=== PATIENT | female | born 1950 | race Caucasian/White ===

== ENCOUNTER → 2019-02-03 15:04 | Outpatient (CLI) | payer MEDICARE, OTHER, SELFPAY ==
--- NOTE | 2019-02-03 15:09 | US_ITS ---
PROCEDURE: US THYROID CLINICAL INDICATION: OROPJARYNGEAL DYSPHAGIA The dysphagia COMPARISON: No exams were available for comparison FINDINGS: Right lobe: 3.8 x 1.5 x 1.9 cm. 6 x 3 mm isodense slightly hypoechoic nodule upper pole 11 x 11 mm mixed nodule mid polar region, 8 mm slightly hypoechoic nodule midpole Left lobe: 4.4 x 1.5 x 1.6 cm. Well-circumscribed 5 mm hypoechoic nodule upper pole, 4 mm hypoechoic nodule mid pole, 3 mm hypoechoic nodule mid pole, 7 mm hypoechoic nodule lower pole Isthmus: Unremarkable Additional findings: IMPRESSION: Small bilateral thyroid nodules as detailed above. Recommend six-month follow-up to confirm short term stability Dictated by: Fadi Trujillo MD 02/03/2019 18:48 Electronically signed by Fadi Trujillo MD in [place] 02/03/2019 18:48
== END ==
PROVIDERS: PCP Family Medicine; Visit Provider Family Medicine
DX: R13.12 Dysphagia, oropharyngeal phase (principal)
CPT/HCPCS: 76536

== ENCOUNTER → 2019-07-08 10:58 | Outpatient (CLI) | payer MEDICARE, OTHER, SELFPAY ==
[2019-07-08 11:39] LABS: Basophils # 0.1 K/mm3 (0-0.2); Basophils % 0.6 % (0.1-2.0); Eosinophils # 0.2 K/mm3 (0.0-0.4); Eosinophils % 1.9 % (0.1-12.0); Hematocrit 39.2 % (37.0-47.0); Hemoglobin 12.8 g/dL (12.2-16.2); Lymphocytes # 2.2 K/mm3 (0.7-4.5); Lymphocytes % 25.9 % (10-50); Mean Corpuscular HGB Conc 32.7 g/dL (31.8-35.4); Mean Corpuscular Hemoglobin 29.4 pg (27.0-31.2); Mean Corpuscular Volume 89.9 fl (81-99); Mean Platelet Volume 8.3 fl (7.4-10.4); Monocytes # 0.5 K/mm3 (0.1-1.0); Monocytes % 5.9 % (1.7-9.3); Neutrophils # 5.6 K/mm3 (1.8-7.8); Neutrophils % 65.7 % (37.0-80.0); Platelet Count 201 K/mm3 (142-424); Red Blood Count 4.36 M/mm3 (4.20-5.40); Red Cell Distribution Width 14.4 % (11.5-17.5); White Blood Count 8.5 K/mm3 (4.8-10.8)
[2019-07-08 12:13] LABS: Alanine Aminotransferase 24 U/L (9-52); Albumin/Globulin Ratio 1.4 (1.1-1.8); Alkaline Phosphatase 79 U/L (46-116); Anion Gap 13.3 mEq/L (5-15); Aspartate Amino Transferase 17 U/L (15-37); Bilirubin,Total 0.6 mg/dL (0.2-1.0); Blood Urea Nitrogen 14 mg/dL (7-18); Calcium 9.5 mg/dL (8.5-10.1); Carbon Dioxide 28 mmol/L (21.0-32.0); Chloride 108 mmol/L (98-107); Chol/HDL Ratio 2.1 (1-3.5); Cholesterol 128 mg/dL (140-200); Creatinine,Serum 0.99 mg/dL (0.55-1.02); Estimated Glomerular Filt Rate 56 ml/min (>60); GFR (African American) 67 ML/MIN (>60); Globulin 2.8 gm/dl (1.3-3.2); Glucose 111 mg/dL (74-106); HDL Cholesterol 60 mg/dL (29-89); LDL Cholesterol 48 mg/dL (0-130); Potassium 4.3 mmoL/L (3.5-5.1); Sodium 145 mmol/L (137-145); Thyroid Stimulating Hormone 0.97 uIU/ml (0.358-3.740); Total Protein,Serum 6.8 g/dL (6.4-8.2); Triglycerides 100 mg/dL (30-200); VLDL Cholesterol 20 mg/dL (0-40)
== END ==
PROVIDERS: PCP Family Medicine; Visit Provider Internal Medicine Cardiovascular Disease
DX: R09.89 Other specified symptoms and signs involving the circulatory and respiratory systems (principal); I11.9 Hypertensive heart disease without heart failure; E78.5 Hyperlipidemia, unspecified
CPT/HCPCS: 36415; 80053; 80061; 84443; 85025

== ENCOUNTER → 2020-02-21 14:48 | Outpatient (POV) | payer MEDICARE, OTHER, SELFPAY | PROVIDERS: Visit Provider Nurse Practitioner Family | DX: Z00.00 Encounter for general adult medical examination without abnormal findings (principal) ==

== ENCOUNTER → 2020-07-27 08:09 | Outpatient (POV) | payer MEDICARE, OTHER, SELFPAY ==
[2020-07-27 08:40] VITALS: BP 145/74; PULSE 57; RESP 18; O2SAT 98; BMI 32.5
--- NOTE | 2020-10-19 12:36 | HMH.PMCON ---
Assessment and Plan (1) Degenerative joint disease (DJD) of lumbar spine Status: Acute Category: Medical Code(s): M47.816 - Spondylosis without myelopathy or radiculopathy, lumbar region (2) Lumbar radiculopathy Status: Acute Category: Medical Code(s): M54.16 - Radiculopathy, lumbar region - Assessment and plan all Dx Assessment and Plan for all problems:: We will schedule the patient for a lumbar epidural steroid injection at L2-L3. We will also order her compounding cream. She has tried and failed conservative therapies of physical therapy, home stretching, and anti-inflammatories. We will see her back in the clinic afterwards to reassess her symptoms after her injection. She is not on anticoagulation therapy. Risks and benefits of the procedure have been explained to the patient. Patient would like to proceed with the procedure. Dr. Partida has reviewed this note and agrees with this plan of care. This note was dictated using voice recognition software and make contain errors or omissions. HPI - Data of Consult Patient: new to practice Consult date: 10/19/20 Requesting Physician: Mirna Shipman APRN Primary Care Provider: Talon Barragan MD - Consult Narrative Reason for consult: Low back pain History of present illness: Ms. Alarcon is a 70 year old female who presents today for consultation for chronic low back pain. The patient was referred to us by Dr. Barragan. Patient says that she has low back pain with radiation into her lower extremities. She has tried and failed conservative therapies of physical therapy for greater than 6 weeks and continued home stretching program. She has also tried ice and heat therapies with no relief. She does have an MRI from 2018 that does show nerve root impingement at L2-L3 area. She says home stretching and physical therapy of not given her relief nor has anti-inflammatories. She does rate her pain a 6 out of 10 today. CC: Mirna Shipman APRN [facility] History I have reviewed the patient's past medical history: Yes Medical History: Reports:: Cancer (left breast cancer), Hyperlipidemia, Hypertension Denies:: Diabetes Mellitus Type 1, Diabetes Mellitus Type 2, Internal Pacemaker, MRSA, Seizures *Have you ever received a pneumonia vaccine?: Yes *Have you received a flu vaccine this season?: Yes Other Medical History: Reports: Anemia, Arthritis. Denies: Blood Transfusion Reaction Laterality Cases: Left: Mastectomy, Right: Total Hip Replacement, Bilateral: Carpal Tunnel Release, Tonsillectomy Other Surgeries: Yes: Cancer Surgery (right breast ), Colonoscopy. No: Pacemaker Amputation: No Fractures: No - *Social History Smoking Status: Never smoker Alcohol Intake: never Alcohol Intake Frequency:: holidays/special occasions only Substance Use Type: denies use *Occupational Status:: retired Housing: house Household Members: spouse *Travel in the last 8 weeks: None Family Hx:: Cancer Review of Systems - Review of Systems Review of Systems General: No recent weight changes, no fever, no sleep disturbances Respiratory: No cough, no shortness of air, no recurring pulmonary infections Cardiovascular/peripheral vascular: No chest pain, no palpitations, no edema, no shortness of breath Gastrointestinal: No new onset incontinence, normal bowel movements reported Genitourinary: No new onset incontinence Musculoskeletal: Low back pain with radiation into lower extremities Psychiatric: Normal mood/affect Neurological: [Denies weakness in extremities], [denies balance issues] Meds Home Medications Medication Instructions Recorded Confirmed Type Anastrozole [Arimidex] 1 mg PO DAILY 03/30/19 08/04/20 History Aspirin [Aspir 81] 81 mg PO DAILY 03/30/19 08/04/20 History Bisoprolol/Hydrochlorothiazide 1 each PO DAILY 03/30/19 08/04/20 History [Bisoprolol-Hctz 5-6.25 mg Tab] Potassium Chloride 20 meq PO DAILY 03/30/19 08/04/20 History Vitamin E
== END ==
PROVIDERS: PCP Family Medicine; Visit Provider Clinical Nurse Specialist Family Health
DX: M47.896 Other spondylosis, lumbar region (principal); M54.16 Radiculopathy, lumbar region
CPT/HCPCS: 99202; G0463

== ENCOUNTER 2020-08-04 09:49 | Day surgery (SDC) | payer MEDICARE, SELFPAY ==
[2020-08-04 10:05] VITALS: BP 172/81; PULSE 62; RESP 18; TEMP 36.3; O2SAT 95; BMI 32.9
[2020-08-04 10:38] VITALS: BP 138/85; PULSE 74; RESP 18; O2SAT 98
[2020-08-04 10:45] VITALS: BP 140/79; PULSE 89; RESP 18; O2SAT 98
[2020-08-04 11:00] VITALS: BP 163/88; PULSE 58; RESP 18; O2SAT 95
--- NOTE | 2020-08-04 11:42 | HMH.PMPROC ---
- Procedure Date: 08/04/20 Time: 11:42 Anesthesiologist:: Tobias Partida MD Complications:: None Pre-procedure Diagnosis:: Degenerative disc disease of lumbar spine with lumbar radiculopathy symptoms with increasing degenerative changes and bulging disc at L2-L3 Post-procedure Diagnosis:: Same Indications for Procedure:: This patient is a pleasant 70-year-old white female who we are treating for low back pain. This is in the upper low back. MRI does show degenerative changes with bulging disc at L2-L3. Will do lumbar epidural steroid injection L2-L3 today to see if this helps with her pain symptoms. Procedure Details:: Lumbar epidural steroid injection under fluoroscopy Informed consent was obtained and the risk and benefits of the procedure was explained to the patient. The patient was taken to the procedure room. The patient was placed prone on the procedure table. The patient was prepped and draped in sterile fashion. C-arm fluoroscopy was used to view the lumbar spine. Skin and subcutaneous tissues were anesthetized using lidocaine. I placed an 18-gauge epidural needle and advanced into the L2-L3 interspace using fluoroscopic guidance and [id number] to air. After confirmation of needle placement in the epidural space with dye I injected 2 mL of lidocaine 1.5% with Depo-Medrol 80 mg. Patient tolerated the procedure well with no complications. Plan and Disposition:: We will follow-up with her in 2 weeks. Will reevaluate symptoms at that time.
== END 2020-08-04 11:15 | disposition home or self-care (01) ==
PROVIDERS: PCP Family Medicine; Visit Provider Anesthesiology
DX: M51.16 Intervertebral disc disorders with radiculopathy, lumbar region (principal); M51.26 Other intervertebral disc displacement, lumbar region
CPT/HCPCS: 62323; J1040; Q9966

== ENCOUNTER → 2020-08-31 10:07 | Outpatient (POV) | payer MEDICARE, SELFPAY ==
[2020-08-31 10:14] VITALS: BP 133/85; PULSE 68; RESP 18; O2SAT 99; BMI 32.9
--- NOTE | 2020-08-31 10:32 | P.CONS_ITS ---
[facility] Pain Management SOAP Note Subjective:: Pleasant 70-year-old white female who presents today for follow-up after her L2- L3 lumbar epidural steroid injection. Patient states that this is the first injection that has been beneficial for her. She got over 80% relief of her symptomology. She rates her pain a 2 out of 10. She is having some left knee pain she states that her orthopedic surgeon stated that this is coming from her L5 level. Patient is uninterested in any injection therapy. She is utilizing the compounding cream patient states that this does very well for her. ROS General: no recent weight change, no fever, no sleep disturbances Respiratory: no cough, no shortness of air, no recurring pulmonary infections Cardiovascular/Peripheral Vascular: No chest pain, No palpitations, no edema, no shortness of breath. Gastrointestinal: no new onset incontinence, normal bowel movements reported Genitourinary: no new onset incontinence Musculoskeletal: Back pain, leg pain at times, knee pain Psychiatric: normal mood/ affect Neurological: [denies new onset weakness in extremities], [denies new onset balance issues] Objective:: Physical Exam General: Alert and oriented x3, no acute distress, pleasant and cooperative, [on room air] Lungs: Resps E/U, Symmetrical chest expansion, Eyes: PERRL Musculoskeletal: Flexion and extension of lumbar spine somewhat guarded secondary to pain, deep tendon reflexes normal, strength in upper and lower extremities [5/5], slightly antalgic gait noted Neurological: speech clear, 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 Dr. Partida has reviewed this note and agrees with this plan of care. This note was dictated using voice recognition software and may contain errors or omissions [facility] History I have reviewed the patient's past medical history: Yes Medical History: Reports:: Cancer (left breast cancer), Hyperlipidemia, Hypertension Denies:: Diabetes Mellitus Type 1, Diabetes Mellitus Type 2, Internal Pacemaker, MRSA, Seizures *Have you ever received a pneumonia vaccine?: Yes *Have you received a flu vaccine this season?: Yes Other Medical History: Reports: Anemia, Arthritis. Denies: Blood Transfusion Reaction Laterality Cases: Left: Mastectomy, Right: Total Hip Replacement, Bilateral: Carpal Tunnel Release, Tonsillectomy Other Surgeries: Yes: Cancer Surgery (right breast ), Colonoscopy. No: Pacemaker Amputation: No Fractures: No - *Social History Smoking Status: Never smoker Alcohol Intake: never Alcohol Intake Frequency:: holidays/special occasions only Substance Use Type: denies use *Occupational Status:: retired Housing: house Household Members: spouse *Travel in the last 8 weeks: None Family Hx:: Cancer
== END ==
PROVIDERS: PCP Family Medicine; Visit Provider Clinical Nurse Specialist Family Health
DX: M51.16 Intervertebral disc disorders with radiculopathy, lumbar region (principal)
CPT/HCPCS: 99212; G0463

== ENCOUNTER → 2020-11-06 10:53 | Outpatient (POV) | payer MEDICARE, SELFPAY ==
[2020-11-06 11:08] VITALS: BP 136/54; PULSE 52; RESP 18; O2SAT 99; BMI 42.1
--- NOTE | 2020-11-06 11:42 | HMH.PAINSOAP ---
[facility] Pain Management SOAP Note Subjective:: Patient is a 70-year-old white female who presents today for follow-up. The patient was seen in our clinic on 07/27/2020 after undergoing a L2-L3 epidural steroid injection. Patient got excellent relief with that injection. She is continued to have relief until the last couple of months. Patient says she did see her orthopedic surgeon because she felt that her pain may be coming from her knees. Patient has had bilateral knee replacements. Patient says that she was informed by her surgeon that her pain is likely due to her radicular pain from her L4-L5 area. It was recommended the patient come back to the clinic and undergo injective therapy to her L4-L5 area. Patient says that this pain is starting in her low back and radiating into her bilateral lower extremities stopping at the knee. She denies any saddle anesthesia or changes in bowel or bladder habit. She says that the pain is not radiating into her feet. She denies any paresthesia. Patient says that she has had recent tendinitis in her left knee and her surgeon informed her that it was due to her back. She rates her pain a 7 out of 10 today. She has undergone physical therapy for greater than 6 weeks and does continue with home stretching. She has also tried oral medications with no significant relief. Review of Systems General: No recent weight changes, no fever, no sleep disturbances Respiratory: No cough, no shortness of air, no recurring pulmonary infections Cardiovascular/peripheral vascular: No chest pain, no palpitations, no edema, no shortness of breath Gastrointestinal: No new onset incontinence, normal bowel movements reported Genitourinary: No new onset incontinence Musculoskeletal: Low back pain with radiation into bilateral knees Psychiatric: Normal mood/affect Neurological: [Denies weakness in extremities], [denies balance issues] Objective:: Physical exam General: Alert and oriented x3, no acute distress, pleasant and cooperative, [on room air] Lungs: Respirations even and unlabored, symmetrical chest expansion Eyes: PERRL Musculoskeletal: Flexion and extension of lumbar spine somewhat guarded secondary to pain, deep tendon reflexes normal, strength in upper and lower extremities [4/5], [abnormal gait noted] Neurological: Speech clear, 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 She does have an MRI that is notable for mild impingement at the L4-L5 area. We will see her back after her injection to reevaluate her symptoms. Patient says she is not on any anticoagulation therapy. She will continue with home stretching. Risks and benefits of the procedure have been explained to the patient. Patient would like to proceed with the procedure. Risks and benefits of the procedure have been explained to the patient. Patient would like to proceed with the procedure. Patient has been instructed to contact the clinic with any concerns before the next appointment. Dr. Martin has reviewed this note and agrees with this plan of care. This note was dictated using voice recognition software and make contain errors or omissions. [facility] History I have reviewed the patient's past medical history: Yes Medical History: Reports:: Cancer (left breast cancer), Hyperlipidemia, Hypertension Denies:: Diabetes Mellitus Type 1, Diabetes Mellitus Type 2, Internal Pacemaker, MRSA, Seizures *Have you ever received a pneumonia vaccine?: Yes *Have you received a flu vaccine this season?: Yes Other Medical History: Reports: Anemia, Arthritis. Denies: Blood Transfusion Reaction Laterality Cases: Left: Mastectomy, Right: Total Hip Replacement, Bilateral: Carpal Tunnel Release, Tonsillectomy Other Surgeries: Yes: Cancer Surgery (right breast ), Colonoscopy.
== END ==
PROVIDERS: PCP Family Medicine; Visit Provider Clinical Nurse Specialist Family Health
DX: M51.16 Intervertebral disc disorders with radiculopathy, lumbar region (principal); M25.561 Pain in right knee; M25.562 Pain in left knee
CPT/HCPCS: 99212; G0463

== ENCOUNTER 2020-11-17 10:45 | Day surgery (SDC) | payer MEDICARE, SELFPAY ==
[2020-11-17 11:17] VITALS: BP 160/67; PULSE 61; RESP 18; TEMP 36.6; O2SAT 98; BMI 33.9
[2020-11-17 13:03] VITALS: BP 162/63; PULSE 51; RESP 20; O2SAT 98
[2020-11-17 13:04] VITALS: BP 162/89; PULSE 80; RESP 20; O2SAT 96
[2020-11-17 13:15] VITALS: BP 138/63; PULSE 50; RESP 18; O2SAT 98
--- NOTE | 2020-11-17 13:15 | HMH.PMPROC ---
- Procedure Date: 11/17/20 Time: 13:15 Anesthesiologist:: Blanca Martin MD Complications:: None Pre-procedure Diagnosis:: Disc disease of the lumbar spine, lumbar radiculopathy Post-procedure Diagnosis:: Same Indications for Procedure:: This patient is a very pleasant 70-year-old white female who presents today with chronic low back pain related to the above diagnosis. She notes pain radiating into her legs especially on the left. She says that the pain is behind her knee as well as going down her leg. She has previously undergone L2-L3 epidural steroid injection on July 27, 2020 with excellent pain relief. However she reports that the pain started to return. The patient has trialed conservative treatment including oral pain medication as well as physical therapy for greater than 6 weeks with minimal pain relief. Plan for today is for her to undergo lumbar epidural steroid injection at L5-S1. Procedure Details:: Informed consent was obtained and the risk and benefits of the procedure was explained to the patient. The patient was taken to the procedure room. The patient was placed prone on the procedure table. The patient was prepped and draped in sterile fashion. C-arm fluoroscopy was used to view the lumbar spine. Skin and subcutaneous tissues were anesthetized using lidocaine. I placed an 18-gauge epidural needle and advanced into the L5-S1 interspace using fluoroscopic guidance and [id number] to air and saline. After confirmation of needle placement in the epidural space with dye I injected 1 mL of lidocaine 1.5% with Depo-Medrol 80 mg followed by 5 ml of preservative free normal saline. Patient tolerated the procedure well with no complications. Plan and Disposition:: We will follow-up with this patient in 2 weeks. Will reevaluate pain symptoms at that time.
== END 2020-11-17 13:15 | disposition home or self-care (01) ==
PROVIDERS: PCP Family Medicine; Visit Provider Anesthesiology Pain Medicine
DX: M51.16 Intervertebral disc disorders with radiculopathy, lumbar region (principal); E78.5 Hyperlipidemia, unspecified; I10 Essential (primary) hypertension; M19.90 Unspecified osteoarthritis, unspecified site; D64.9 Anemia, unspecified; Z88.0 Allergy status to penicillin; Z88.5 Allergy status to narcotic agent
CPT/HCPCS: 62323; J1040; Q9966

== ENCOUNTER → 2020-11-30 09:59 | Outpatient (POV) | payer MEDICARE, SELFPAY ==
[2020-11-30 10:19] VITALS: BP 152/75; PULSE 54; RESP 18; O2SAT 97; BMI 33.9
--- NOTE | 2020-11-30 10:46 | HMH.PAINSOAP ---
[facility] Pain Management SOAP Note Subjective:: Patient is a pleasant 70-year-old white female who presents today for follow-up after lumbar epidural steroid injection at L5-S1. She has been treated for degenerative disc disease lumbar spine with lumbar radiculopathy symptoms. Patient says that she is just starting to get significant relief from the injection to her low back area. She rates her pain an 8 out of 10 today, however. Her pain is in her low back area with bilateral leg pain worse on the left. This is starting to improve. The pain to that area is a 5 out of 10. Her pain today is at the L2-L3 area. She has had epidural steroid injection this area on July 27, 2020 with excellent pain relief until the last 2 to 3 days. Her pain has returned to this area. She is managed with compounding cream in our clinic. This does well for her. She has tried physical therapy for greater than 6 weeks with minimal relief. She would like to undergo a repeat L2-L3 steroid injection. Review of Systems General: No recent weight changes, no fever, no sleep disturbances Respiratory: No cough, no shortness of air, no recurring pulmonary infections Cardiovascular/peripheral vascular: No chest pain, no palpitations, no edema, no shortness of breath Gastrointestinal: No new onset incontinence, normal bowel movements reported Genitourinary: No new onset incontinence Musculoskeletal: Low back pain Psychiatric: Normal mood/affect Neurological: [Denies weakness in extremities], [denies balance issues] Objective:: Physical exam General: Alert and oriented x3, no acute distress, pleasant and cooperative, [on room air] Lungs: Respirations even and unlabored, symmetrical chest expansion Eyes: PERRL Musculoskeletal: Flexion and extension of [] lumbar spine somewhat guarded secondary to pain, deep tendon reflexes normal, strength in upper and lower extremities [5/5], [abnormal gait noted] Neurological: Speech clear, 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 Her pain has changed somewhat. She is continuing to get relief from her previous lumbar epidural steroid injection at L5-S1. The injection she received at the L2-L3 area was done on July 27, 2020 and she continued to get relief until the last few days. She does need a refill on her compounding cream. We will see her back after her L2-L3 lumbar epidural steroid injection. She is not on anticoagulation therapy. 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 She will continue with home stretching. She has tried failed conservative therapies of physical therapy for more than 6 weeks and continued home stretching along with anti-inflammatories. Risks and benefits of the procedure have been explained to the patient. Patient would like to proceed with the procedure. Possible side effects of corticosteroids have been discussed with the patient. Patient has been instructed to contact the clinic with any concerns before the next appointment. Dr. Partida has reviewed this note and agrees with this plan of care. This note was dictated using voice recognition software and make contain errors or omissions. [facility] History I have reviewed the patient's past medical history: Yes Medical History: Reports:: Cancer, Hyperlipidemia, Hypertension Denies:: Diabetes Mellitus Type 1, Diabetes Mellitus Type 2, Internal Pacemaker, MRSA, Seizures *Have you ever received a pneumonia vaccine?: Yes *Have you received a flu vaccine this season?: Yes Other Medical History: Reports: Anemia, Arthritis. Denies: Blood Transfusion Reaction Laterality Cases: Left: Mastectomy, Right: Total Hip Replacement, Bilateral: Carpal Tunnel Release, Tonsillectomy Other Surgeries: Yes: Cancer Surgery (right breast ), Cholecystectomy, Colonoscopy. No: Pacemaker Amputation: No Fractu
== END ==
PROVIDERS: PCP Family Medicine; Visit Provider Clinical Nurse Specialist Family Health
DX: M51.16 Intervertebral disc disorders with radiculopathy, lumbar region (principal)
CPT/HCPCS: 99212; G0463

== ENCOUNTER 2020-12-22 09:10 | Day surgery (SDC) | payer MEDICARE, SELFPAY ==
[2020-12-22 09:31] VITALS: BP 174/82; PULSE 56; RESP 18; TEMP 36.6; O2SAT 97; BMI 34.2
[2020-12-22 09:58] VITALS: BP 150/77; PULSE 67; RESP 18; O2SAT 98
[2020-12-22 10:01] VITALS: BP 150/77; PULSE 60; RESP 18; O2SAT 99
--- NOTE | 2020-12-22 10:08 | P.PCN_ITS ---
- Procedure Date: 12/22/20 Time: 10:08 Anesthesiologist:: Blanca Martin MD Complications:: None Pre-procedure Diagnosis:: Degenerative disc disease of the lumbar spine, lumbar radiculopathy Post-procedure Diagnosis:: Same Indications for Procedure:: Patient is a very pleasant 70-year-old white female who presents today with chronic low back pain radiating to her legs related to the above diagnosis. She has tried and failed conservative treatment including oral pain medication and home stretching program for greater than 6 weeks. She is currently managing with a compounding cream that she states helps somewhat. Of note, she recently underwent a lumbar epidural steroid injection in our clinic and notes about 60- 70% pain relief is ongoing; however she states that she has been having worsening pain lately and is requesting a repeat injection today. The plan for today is for the patient to undergo repeat lumbar epidural steroid injection under fluoroscopy at L5-S1 #2. Procedure Details:: Informed consent was obtained and the risk and benefits of the procedure was explained to the patient. The patient was taken to the procedure room. The patient was placed prone on the procedure table. The patient was prepped and draped in sterile fashion. C-arm fluoroscopy was used to view the lumbar spine. Skin and subcutaneous tissues were anesthetized using lidocaine. I placed an 18-gauge epidural needle and advanced into the L5-S1 interspace using fluoroscopic guidance and [id number] to air and saline. After confirmation of needle placement in the epidural space with dye I injected 1 mL of lidocaine 1.0% with Depo-Medrol 80 mg. Patient tolerated the procedure well with no complications. Plan and Disposition:: We will follow-up with this patient in 2 weeks. Will reevaluate pain symptoms at that time.
[2020-12-22 10:14] VITALS: BP 154/76; PULSE 55; RESP 18; O2SAT 97
== END 2020-12-22 10:15 | disposition home or self-care (01) ==
LOC: SC.PAINP 09:11
PROVIDERS: PCP Family Medicine; Visit Provider Anesthesiology Pain Medicine
DX: M51.16 Intervertebral disc disorders with radiculopathy, lumbar region (principal)
CPT/HCPCS: 62323; J1040; Q9966

== ENCOUNTER → 2021-01-25 10:36 | Outpatient (POV) | payer MEDICARE, SELFPAY ==
[2021-01-25 10:50] VITALS: BP 166/82; PULSE 71; RESP 18; O2SAT 99; BMI 32.5
--- NOTE | 2021-01-25 11:50 | HMH.PAINSOAP ---
[facility] Pain Management SOAP Note Subjective:: Patient is a pleasant 70-year-old white female who presents today for follow-up after a lumbar epidural steroid injection at L5-S1 #2 injection. Patient says that she got excellent relief with the injection which also remedied her left knee pain. She says she is not having as much pain to this area at this time. She is complaining of mid back pain which seems to be worse for her at this time. Her pain is an 8 out of 10. She has tried failed conservative therapies of physical therapy, home stretching, and anti-inflammatories. She has had an L2-L3 lumbar epidural steroid injection in the past which gave her significant relief to this area, up to 70% for 2 to 3 weeks. Her pain did return. She would like to repeat an injection in this area. Her last injection at L2-L3 area was on 08/04/2020. Patient says that she does have radicular pain into her anterior thighs. Review of Systems General: No recent weight changes, no fever, no sleep disturbances Respiratory: No cough, no shortness of air, no recurring pulmonary infections Cardiovascular/peripheral vascular: No chest pain, no palpitations, no edema, no shortness of breath Gastrointestinal: No new onset incontinence, normal bowel movements reported Genitourinary: No new onset incontinence Musculoskeletal: Mid to low back pain with radiation into anterior thighs Psychiatric: [Normal mood/affect] Neurological: [Denies weakness in extremities], [denies balance issues] Objective:: Physical exam General: Alert and oriented x3, no acute distress, pleasant and cooperative, [on room air] Lungs: Respirations even and unlabored, symmetrical chest expansion Eyes: PERRL Musculoskeletal: Flexion and extension of [] lumbar [spine] somewhat guarded secondary to pain, strength in upper and lower extremities [5/5], [antalgic gait noted] Neurological: Speech clear, [motors and controls tester equal], no gross sensory deficit Assessment:: Degenerative disc disease lumbar spine with lumbar radiculopathy symptoms Plan:: We will schedule the patient for #2 injection at L2-L3 area. She is having mid to low back pain with radiation into her anterior thigh area. We will plan to follow-up with her after the injection for reevaluation of symptoms. She has tried failed conservative therapies of physical therapy for more than 6 weeks and continues with home stretching. She is not on any anti-inflammatories. Patient does also need refills on her compounding cream. Possible side effects of corticosteroids have been discussed with the patient. Risks and benefits of the procedure have been explained to the patient. Patient would like to proceed with the procedure. Patient has been instructed to contact the clinic with any concerns before the next appointment. Dr. Partida has reviewed this note and agrees with this plan of care. This note was dictated using voice recognition software and make contain errors or omissions. [facility] History I have reviewed the patient's past medical history: Yes Medical History: Reports:: Cancer, Hyperlipidemia, Hypertension Denies:: Diabetes Mellitus Type 1, Diabetes Mellitus Type 2, Internal Pacemaker, MRSA, Seizures *Have you ever received a pneumonia vaccine?: Yes *Have you received a flu vaccine this season?: Yes Other Medical History: Reports: Anemia, Arthritis. Denies: Blood Transfusion Reaction Laterality Cases: Left: Mastectomy, Right: Total Hip Replacement, Bilateral: Carpal Tunnel Release, Tonsillectomy Other Surgeries: Yes: Cancer Surgery (right breast ), Cholecystectomy, Colonoscopy. No: Pacemaker Amputation: No Fractures: No - *Social History Smoking Status: Never smoker Alcohol Intake: never Alcohol Intake Frequency:: holidays/special occasions only Substance Use Type: denies use *Occupational Status:: unemployed Housing: house Household Members: spouse *Travel in the last 8 weeks: None Family Hx:: Cancer
== END ==
PROVIDERS: Visit Provider Clinical Nurse Specialist Family Health
DX: M51.16 Intervertebral disc disorders with radiculopathy, lumbar region (principal)
CPT/HCPCS: 99212; G0463

== ENCOUNTER 2021-02-02 12:46 | Day surgery (SDC) | payer MEDICARE, SELFPAY ==
[2021-02-02 12:52] VITALS: BP 139/64; PULSE 63; RESP 18; TEMP 36.4; O2SAT 97; BMI 33.0
[2021-02-02 13:19] VITALS: BP 156/71; PULSE 58; RESP 18; O2SAT 98
[2021-02-02 13:20] VITALS: BP 156/71; PULSE 57; RESP 18; O2SAT 99
--- NOTE | 2021-02-02 13:28 | P.PCN_ITS ---
- Procedure Date: 02/02/21 Time: 13:28 Anesthesiologist:: Tobias Partida MD Complications:: None Pre-procedure Diagnosis:: Degenerative disc disease of lumbar spine with lumbar radiculopathy symptoms Post-procedure Diagnosis:: Same Indications for Procedure:: Patient is a pleasant 70-year-old white female who we are treating for low back pain with lumbar radiculopathy symptoms. She has done very well with her previous epidural steroid injection at L2-L3. She was 78% better for 6 months. Pain is starting to return. Will do repeat lumbar epidural steroid injection at L2-L3 today. Procedure Details:: Informed consent was obtained and the risk and benefits of the procedure was explained to the patient. The patient was taken to the procedure room. The p atient was placed prone on the procedure table. The patient was prepped and draped in sterile fashion. C-arm fluoroscopy was used to view the lumbar spine. Skin and subcutaneous tissues were anesthetized using lidocaine. I placed an 18-gauge epidural needle and advanced into the L2-L3 interspace using fluoroscopic guidance and [id number] to air. After confirmation of needle placement in the epidural space with dye I injected 2 mL of lidocaine 1.5% with Depo-Medrol 80 mg. Patient tolerated the procedure well with no complications. Plan and Disposition:: Follow-up with her in 2 weeks. Will reevaluate symptoms at that time.
[2021-02-02 13:32] VITALS: BP 135/68; PULSE 62; RESP 18; O2SAT 97
== END 2021-02-02 13:32 | disposition home or self-care (01) ==
LOC: SC.PAINP 12:47
PROVIDERS: PCP Family Medicine; Visit Provider Anesthesiology
DX: M51.16 Intervertebral disc disorders with radiculopathy, lumbar region (principal); I10 Essential (primary) hypertension; E78.5 Hyperlipidemia, unspecified; M19.90 Unspecified osteoarthritis, unspecified site; D64.9 Anemia, unspecified; Z88.0 Allergy status to penicillin; Z88.6 Allergy status to analgesic agent; Z79.82 Long term (current) use of aspirin; Z79.899 Other long term (current) drug therapy
CPT/HCPCS: 62323; J1040; Q9966

== ENCOUNTER → 2021-02-27 10:51 | Outpatient (POV) | payer MEDICARE, SELFPAY ==
--- NOTE | 2021-02-27 11:13 | P.CONS_ITS ---
[facility] Pain Management SOAP Note Subjective:: Patient is a pleasant 70-year-old white female who presents today for follow-up after lumbar epidural steroid injection. The patient reports that she got significant relief, at about 70 to 80% for 2 weeks, however, she reports that she did have a fall. She was at her daughter's home and fell on toys of her granddaughter. She is now having pain to her right flank area. She does not have any shortness of breath or does not think she has any acute fractures or injury. Patient feels that is more of a soreness. She says that the injection was working but the pain did return somewhat after the fall. Review of Systems General: No recent weight changes, no fever, no sleep disturbances Respiratory: No cough, no shortness of air, no recurring pulmonary infections Cardiovascular/peripheral vascular: No chest pain, no palpitations, no edema, no shortness of breath Gastrointestinal: No new onset incontinence, normal bowel movements reported Genitourinary: No new onset incontinence Musculoskeletal: Right flank area pain post fall Psychiatric: [Normal mood/affect] Neurological: [Denies weakness in extremities], [denies balance issues] Objective:: Physical exam General: Alert and oriented x3, no acute distress, pleasant and cooperative, [on room air] Lungs: Respirations even and unlabored, symmetrical chest expansion Eyes: PERRL Musculoskeletal: Palpation right flank somewhat guarded secondary to pain, normal gait noted Neurological: Speech clear, no gross sensory deficit Assessment:: Degenerative disc disease lumbar spine with lumbar radiculopathy symptoms, right flank pain Plan:: Patient was like to postpone injective therapy for now. She would like to undergo injective therapy later in the year. For now we will order the patient prednisone 20 mg 1 tablet p.o. twice daily. We will put her on for 1 month follow-up and plan to see her back at that time for reevaluation of symptoms. She has deferred on any imaging at this time. She does not feel that she did any acute damage, but only soreness. We will see her back in 1 month for reevaluation of symptoms. Patient has been instructed to contact the clinic with any concerns before the next appointment. Dr. Partida has reviewed this note and agrees with this plan of care. This note was dictated using voice recognition software and make contain errors or omissions. [facility] History I have reviewed the patient's past medical history: Yes Medical History: Reports:: Cancer, Hyperlipidemia, Hypertension Denies:: Diabetes Mellitus Type 1, Diabetes Mellitus Type 2, Internal Pacemaker, MRSA, Seizures *Have you ever received a pneumonia vaccine?: No *Have you received a flu vaccine this season?: No Other Medical History: Reports: Anemia, Arthritis. Denies: Blood Transfusion Reaction Laterality Cases: Left: Mastectomy, Right: Total Hip Replacement, Bilateral: C arpal Tunnel Release, Tonsillectomy Other Surgeries: Yes: Cancer Surgery (right breast ), Cholecystectomy, Colonoscopy. No: Pacemaker Amputation: No Fractures: No - *Social History Smoking Status: Never smoker Alcohol Intake: never Alcohol Intake Frequency:: holidays/special occasions only Substance Use Type: denies use *Occupational Status:: employed Housing: house Household Members: spouse *Travel in the last 8 weeks: None Family Hx:: Cancer
[2021-02-27 11:26] VITALS: BP 179/83; PULSE 52; RESP 18; O2SAT 99; BMI 32.5
== END ==
PROVIDERS: Visit Provider Clinical Nurse Specialist Family Health
DX: M51.16 Intervertebral disc disorders with radiculopathy, lumbar region (principal); R10.9 Unspecified abdominal pain
CPT/HCPCS: 99212; G0463

== ENCOUNTER → 2021-04-03 09:56 | Outpatient (POV) | payer MEDICARE, SELFPAY ==
[2021-04-03 10:12] VITALS: BP 160/74; PULSE 60; RESP 18; O2SAT 98; BMI 32.9
--- NOTE | 2021-04-03 11:58 | HMH.PAINSOAP ---
[facility] Pain Management SOAP Note Subjective:: Patient is a 70-year-old white female who presents today for follow-up. The patient is seen in the clinic for routine injective therapy. She does get treated for chronic low back pain as well as mid to low back pain. She has had a lumbar epidural steroid injection at L4-L5 as well as injections at L to L3 area. In July 2020 the patient underwent a lumbar epidural steroid injection at L2-L3 area. She got significant relief for approximately 8 months. Unfortunately, the patient's pain has returned to the area. She does rate her pain a 6 out of 10. The pain is worse with standing and walking. The pain is radiating into the low back area somewhat. She does continue with home stretching. She also continues with anti-inflammatories as needed. Patient is not diabetic and is not on any anticoagulation therapy. Patient has only had 1 injection to this area this year. Patient did get 80% relief for the 8 months. Review of Systems General: No recent weight changes, no fever, no sleep disturbances Respiratory: No cough, no shortness of air, no recurring pulmonary infections Cardiovascular/peripheral vascular: No chest pain, no palpitations, no edema, no shortness of breath Gastrointestinal: No new onset incontinence, normal bowel movements reported Genitourinary: No new onset incontinence Musculoskeletal: Mid to low back pain Psychiatric: [Normal mood/affect] Neurological: [Denies weakness in extremities], [denies balance issues] Objective:: Physical exam General: Alert and oriented x3, no acute distress, pleasant and cooperative Lungs: Respirations even and unlabored, symmetrical chest expansion Eyes: PERRL Musculoskeletal: Flexion and extension of lumbar [spine] somewhat guarded secondary to pain, [antalgic gait noted] Neurological: Speech clear, no gross sensory deficit Assessment:: Degenerative disc disease lumbar spine with lumbar radiculopathy symptoms Plan:: We will schedule the patient for a #2 lumbar epidural steroid injection at L2-L3 area. With the previous injection she got 80% relief for approximately 8 months. She is continue with home stretching and anti-inflammatories as needed. We will see the patient back after her injection for further evaluation of symptoms. Patient is not on anticoagulation therapy and is not diabetic. Possible side effects of corticosteroids have been discussed with the patient. Risks and benefits of the procedure have been explained to the patient. Patient would like to proceed with the procedure. Patient has been instructed to contact the clinic with any concerns before the next appointment. Dr. Partida has reviewed this note and agrees with this plan of care. This note was dictated using voice recognition software and make contain errors or omissions. [facility] History I have reviewed the patient's past medical history: Yes Medical History: Reports:: Cancer, Hyperlipidemia, Hypertension Denies:: Diabetes Mellitus Type 1, Diabetes Mellitus Type 2, Internal Pacemaker, MRSA, Seizures *Have you ever received a pneumonia vaccine?: Yes *Have you received a flu vaccine this season?: Yes Other Medical History: Reports: Anemia, Arthritis. Denies: Blood Transfusion Reaction Laterality Cases: Left: Mastectomy, Right: Total Hip Replacement, Bilateral: Carpal Tunnel Release, Tonsillectomy Other Surgeries: Yes: Cancer Surgery (right breast ), Cholecystectomy, Colonoscopy. No: Pacemaker Amputation: No Fractures: No - *Social History Smoking Status: Never smoker Alcohol Intake: never Alcohol Intake Frequency:: holidays/special occasions only Substance Use Type: denies use *Occupational Status:: unemployed Housing: house Household Members: spouse *Travel in the last 8 weeks: None Family Hx:: Cancer
== END ==
PROVIDERS: Visit Provider Clinical Nurse Specialist Family Health
DX: M51.16 Intervertebral disc disorders with radiculopathy, lumbar region (principal)
CPT/HCPCS: 99212; G0463

== ENCOUNTER 2021-04-27 11:38 | Day surgery (SDC) | payer MEDICARE, SELFPAY ==
[2021-04-27 11:50] VITALS: BP 213/76; PULSE 64; RESP 18; TEMP 36.6; O2SAT 98; BMI 33.9
[2021-04-27 11:59] VITALS: BP 145/86; PULSE 76; RESP 20; O2SAT 93
[2021-04-27 12:08] VITALS: BP 131/67; PULSE 56; RESP 20; O2SAT 96
--- NOTE | 2021-04-27 12:15 | HMH.PMPROC ---
- Procedure Date: 04/27/21 Time: 12:15 Anesthesiologist:: Tobias Partida MD Complications:: None Pre-procedure Diagnosis:: Degenerative disc disease of lumbar spine with lumbar radiculopathy symptoms Post-procedure Diagnosis:: Same Indications for Procedure:: Patient is a pleasant 71-year-old white female who we are treating for low back pain with lumbar radicular symptoms. She is done very well with previous epidural steroid injections at the L2-L3 region. Her last injection in this region gave her 8 months relief. We will plan on a repeat lumbar epidural steroid injection at L2-L3 today as she is having some return of her pain. Procedure Details:: Informed consent was obtained and the risk and benefits of the procedure was explained to the patient. The patient was taken to the procedure room. The patient was placed prone on the procedure table. The patient was prepped and draped in sterile fashion. C-arm fluoroscopy was used to view the lumbar spine. Skin and subcutaneous tissues were anesthetized using lidocaine. I placed an 18-gauge epidural needle and advanced into the L2-L3 interspace using fluoroscopic guidance and [id number] to air. After confirmation of needle placement in the epidural space with dye I injected 2 mL of lidocaine 1.5% with Depo-Medrol 80 mg. Patient tolerated the procedure well with no complications. Plan and Disposition:: We will follow-up with her in 2 weeks. Will reevaluate her symptoms at that time.
[2021-04-27 12:38] VITALS: BP 159/76; PULSE 57; RESP 20; O2SAT 98
== END 2021-04-27 12:41 | disposition home or self-care (01) ==
LOC: SC.PAINP 11:39
PROVIDERS: PCP Family Medicine; Visit Provider Anesthesiology
DX: M51.16 Intervertebral disc disorders with radiculopathy, lumbar region (principal); I10 Essential (primary) hypertension; E78.5 Hyperlipidemia, unspecified; Z85.3 Personal history of malignant neoplasm of breast; Z90.11 Acquired absence of right breast and nipple; Z96.649 Presence of unspecified artificial hip joint; Z96.653 Presence of artificial knee joint, bilateral; Z88.0 Allergy status to penicillin; Z88.5 Allergy status to narcotic agent; Z79.82 Long term (current) use of aspirin; Z79.899 Other long term (current) drug therapy
CPT/HCPCS: 62323; J1040; Q9966

== ENCOUNTER → 2021-05-15 09:55 | Outpatient (POV) | payer MEDICARE, SELFPAY ==
[2021-05-15 10:00] VITALS: BP 171/87; PULSE 56; RESP 18; O2SAT 98; BMI 33.9
--- NOTE | 2021-05-15 10:36 | HMH.PAINSOAP ---
[facility] Pain Management SOAP Note Subjective:: Patient is a 71-year-old white female who presents today for follow-up. She recently had a lumbar epidural steroid injection at L2-L3 area. She says she got significant relief following the injection. She does rate her pain a 4 out of 10 today. She says the pain does return when she is standing on her feet for prolonged periods and after recently lifting a present for wrapping. She began to develop pain to her left hip. Patient says that the injection did give her a great deal of relief, however. She is continuing with home stretching as needed and anti-inflammatories as well as compounding cream as needed. Review of Systems General: No recent weight changes, no fever, no sleep disturbances Respiratory: No cough, no shortness of air, no recurring pulmonary infections Cardiovascular/peripheral vascular: No chest pain, no palpitations, no edema, no shortness of breath Gastrointestinal: No new onset incontinence, normal bowel movements reported Genitourinary: No new onset incontinence Musculoskeletal: Left hip pain Psychiatric: [Normal mood/affect] Neurological: [Denies weakness in extremities], [denies balance issues] Objective:: Physical exam General: Alert and oriented x3, no acute distress, pleasant and cooperative Lungs: Respirations even and unlabored, symmetrical chest expansion Eyes: PERRL Musculoskeletal: Flexion and extension of left hip somewhat guarded secondary to pain, [antalgic gait noted] Neurological: Speech clear, no gross sensory deficit Assessment:: Left hip pain, degenerative disc disease lumbar spine with lumbar radiculopathy symptoms Plan:: Patient is doing well with her low back pain since having the injections. We will schedule her for a follow-up in 3 months. We will order the patient prednisone 20 mg 1 tablet p.o. twice daily for 5 days due to hip pain acute. We will plan to see her back in the clinic in 3 months for further evaluation. Risks and benefits of the procedure have been explained to the patient. Patient would like to proceed with the procedure. Patient has been instructed to contact the clinic with any concerns before the next appointment. Dr. Partida has reviewed this note and agrees with this plan of care. This note was dictated using voice recognition software and make contain errors or omissions. [facility] History I have reviewed the patient's past medical history: Yes Medical History: Reports:: Cancer, Hyperlipidemia, Hypertension Denies:: Diabetes Mellitus Type 1, Diabetes Mellitus Type 2, Internal Pacemaker, MRSA, Seizures *Have you ever received a pneumonia vaccine?: Yes *Have you received a flu vaccine this season?: Yes Other Medical History: Reports: Anemia, Arthritis. Denies: Blood Transfusion Reaction Laterality Cases: Left: Mastectomy, Right: Total Hip Replacement, Bilateral: Carpal Tunnel Release, Tonsillectomy Other Surgeries: Yes: Cancer Surgery (right breast ), Cholecystectomy, Colonoscopy. No: Pacemaker Amputation: No Fractures: No - *Social History Smoking Status: Never smoker Alcohol Intake: never Alcohol Intake Frequency:: holidays/special occasions only Substance Use Type: denies use *Occupational Status:: unemployed Housing: house Household Members: spouse *Travel in the last 8 weeks: None Family Hx:: Cancer
== END ==
PROVIDERS: Visit Provider Clinical Nurse Specialist Family Health
DX: M25.552 Pain in left hip (principal); M51.16 Intervertebral disc disorders with radiculopathy, lumbar region
CPT/HCPCS: 99212; G0463

== ENCOUNTER → 2021-08-20 09:38 | Outpatient (POV) | payer MEDICARE, SELFPAY ==
[2021-08-20 09:54] VITALS: BP 168/66; PULSE 50; RESP 18; TEMP 36.2; O2SAT 99; BMI 32.9
--- NOTE | 2021-08-20 09:55 | HMH.PAINSOAP ---
[facility] Pain Management SOAP Note Subjective:: Patient is a pleasant 71-year-old female who presents today for follow-up. Patient is currently being treated for degenerative disc disease of the lumbar spine with lumbar radiculopathy symptoms, chronic left hip pain. We have been managing this patient's low back pain with injective therapy every 2 to 3 months. Patient's last injection was in April 2021 and said that she had 90 to 100% relief then. She denies any side effects or issues with injections. She denies any recent falls or traumas. Today, patient has been complaining of increasing low back pain that radiates to bilateral lower extremities. She rates her pain today as 8 out of 10. Patient was prescribed Lyrica by an outside clinic but says that she was having headaches with it so she had to change back to her gabapentin 300 mg 3 times a day. [facility] #[id number] with an active morphine equivalent of 0. Review of Systems: General: No recent weight changes, no fever, no sleep disturbances Respiratory: No cough, no shortness of air, no recurring pulmonary infections Cardiovascular/peripheral vascular: No chest pain, no palpitations, no edema, no shortness of breath Gastrointestinal: No new onset incontinence, normal bowel movements reported Genitourinary: No new onset incontinence Musculoskeletal: Low back pain Psychiatric: [Normal mood/affect] Neurological: [Denies weakness in extremities], [denies balance issues] Objective:: Physical Exam: General: Alert and oriented x3, no acute distress, pleasant and cooperative, [on room air] Lungs: Respirations even and unlabored, symmetrical chest expansion Eyes: PERRL Musculoskeletal: Flexion and extension of lumbar [spine] somewhat guarded secondary to pain Neurological: Speech clear, no gross sensory deficit Assessment:: Degenerative disc disease of the lumbar spine with lumbar radiculopathy symptoms, left hip pain Plan:: We have been managing this patient's low back pain with lumbar epidural steroid injections every 2 to 3 months. She last had her lumbar epidural steroid injection at the L2-L3 in April 2021. Patient states that she has been having worsening pain. She denies any recent falls or traumas. We will schedule the patient for a a lumbar epidural steroid injection at L2-L3. Risks and benefits of the procedure have been explained to the patient. Patient would like to proceed with the procedure. Patient is currently not on any blood thinners. Patient is nondiabetic. Patient has been instructed to contact the clinic with any concerns before the next appointment. Dr. Partida has reviewed this note and agrees with this plan of care. This note was dictated using voice recognition software and make contain errors or omissions. [facility] History Medical History: Reports:: Cancer (L BREAST), Hyperlipidemia, Hypertension Denies:: Diabetes Mellitus Type 1, Diabetes Mellitus Type 2, Internal Pacemaker, MRSA, Seizures *Have you ever received a pneumonia vaccine?: Yes *Have you received a flu vaccine this season?: Yes Other Medical History: Reports: Anemia, Arthritis. Denies: Blood Transfusion Reaction Laterality Cases: Left: Mastectomy, Right: Total Hip Replacement, Bilateral: Carpal Tunnel Release, Tonsillectomy Other Surgeries: Yes: Cancer Surgery (right breast ), Cholecystectomy, Colonoscopy. No: Pacemaker Amputation: No Fractures: No - *Social History Smoking Status: Never smoker Alcohol Intake: never Alcohol Intake Frequency:: holidays/special occasions only Substance Use Type: denies use *Occupational Status:: unemployed Housing: house Household Members: spouse *Travel in the last 8 weeks: Inside the [facility] Family Hx:: Cancer
== END ==
PROVIDERS: Visit Provider Student in an Organized Health Care Education/Training Program
DX: M51.16 Intervertebral disc disorders with radiculopathy, lumbar region (principal); M25.552 Pain in left hip
CPT/HCPCS: 99212; G0463

== ENCOUNTER 2021-08-31 11:31 | Day surgery (SDC) | payer MEDICARE, SELFPAY ==
[2021-08-31 11:41] VITALS: BP 159/76; BP 173/66; BP 184/79; PULSE 61; PULSE 64; PULSE 71; RESP 18; RESP 20; TEMP 36.5; O2SAT 96; O2SAT 98; BMI 33.9
--- NOTE | 2021-08-31 12:04 | HMH.PMPROC ---
- Procedure Date: 08/31/21 Time: 12:04 Anesthesiologist:: Balbir Knott CRNA Complications:: None Pre-procedure Diagnosis:: Degenerative disc disease lumbar spine multiple levels with lumbar radiculopathy Post-procedure Diagnosis:: Same Indications for Procedure:: Very pleasant 71-year-old female who presents today for therapeutic lumbar epidural steroid injection. She has had significant improvement with her injections in the past. Procedure Details:: Procedure: Lumbar epidural steroid injection under fluoroscopy Informed consent was obtained and the risks and benefits of the procedure were explained to the patient. The patient was taken to the procedure room and noninvasive monitors placed, including noninvasive blood pressure cuff and pulse oximeter. The back was viewed using C-arm Fluoroscopy and prepped using Betadine as a cleansing solution and the L4-L5 interspace was palpated. Skin and subcutaneous tissues were anesthetized using lidocaine 1.5% and a 25-gauge needle. After this, an 18-gauge Touhy epidural needle was placed into the L4-L5 interspace and advanced using fluoroscopic guidance and loss of resistance to air until the epidural space was encountered. After confirmation of needle placement in the epidural space, with dye, a solution containing lidocaine 1.5%, 4 mL and Depo-Medrol 80 mg were incrementally injected into the lumbar epidural space. The patient tolerated the procedure well with no complications. The patient was observed in the Pain Clinic and then discharged home neurologically intact. Plan and Disposition:: Patient was discharged home without incident. She will return to see us in the clinic for follow-up.
== END 2021-08-31 12:03 | disposition home or self-care (01) ==
LOC: SC.PAINP 11:33
PROVIDERS: PCP Family Medicine; Visit Provider Nurse Anesthetist, Certified Registered
DX: E78.5 Hyperlipidemia, unspecified; I10 Essential (primary) hypertension; D64.9 Anemia, unspecified; M19.90 Unspecified osteoarthritis, unspecified site; Z85.3 Personal history of malignant neoplasm of breast; Z80.9 Family history of malignant neoplasm, unspecified; M51.16 Intervertebral disc disorders with radiculopathy, lumbar region
CPT/HCPCS: 62323; J1040

== ENCOUNTER → 2021-09-27 10:17 | Outpatient (POV) | payer MEDICARE, SELFPAY ==
[2021-09-27 10:36] VITALS: BP 175/75; PULSE 81; RESP 18; TEMP 36.3; O2SAT 98; BMI 33.9
--- NOTE | 2021-09-27 11:27 | HMH.PAINSOAP ---
[facility] Pain Management SOAP Note Subjective:: Patient is a pleasant 71-year-old female who presents today for follow-up after a lumbar epidural steroid injection on August 31, 2021. Patient is currently being treated for degenerative disc disease of the lumbar spine with lumbar radiculopathy symptoms, bilateral knee pain. We have been managing this patient's low back pain with injective therapy every 2 to 3 months. After the procedure, patient had significant relief of 80 to 90%. Denies any issues after procedure. Patient was a little bit disappointed because she has been getting her injections at L2-L3 but she got this last one at L4-L5. Even with this change, patient still had significant relief. Patient is also prescribed gabapentin 300 mg 3 times a day by an outside clinic. [facility] #[id number] with an active morphine equivalent of 0. Patient's last left genicular nerve ablation was 4 weeks ago. We will reevaluate in December if the patient needs a repeat ablation. Review of Systems: General: No recent weight changes, no fever, no sleep disturbances Respiratory: No cough, no shortness of air, no recurring pulmonary infections Cardiovascular/peripheral vascular: No chest pain, no palpitations, no edema, no shortness of breath Gastrointestinal: No new onset incontinence, normal bowel movements reported Genitourinary: No new onset incontinence Musculoskeletal: Low back pain, bilateral knee pain Psychiatric: [Normal mood/affect] Neurological: [Denies weakness in extremities], [denies balance issues] Objective:: Physical Exam: General: Alert and oriented x3, no acute distress, pleasant and cooperative Lungs: Respirations even and unlabored, symmetrical chest expansion Eyes: PERRL Musculoskeletal: Flexion and extension of lumbar [spine] somewhat guarded secondary to pain, [antalgic gait noted] Neurological: Speech clear, no gross sensory deficit Assessment:: Degenerative disc disease of lumbar spine with lumbar radiculopathy symptoms, bilateral knee pain Plan:: Patient has significant relief after the lumbar epidural steroid injection at L4-L5. Denies any issues after the injection. We will schedule the patient for a repeat injection in 2 months for a lumbar epidural steroid injection at L2-L3. Risk and benefits of this procedure have been discussed with the patient. Patient would like to proceed with the procedure. Patient is not on any blood thinners. Patient is nondiabetic. Patient has been instructed to contact the clinic with any concerns before the next appointment. Dr. Partida has reviewed this note and agrees with this plan of care. This note was dictated using voice recognition software and make contain errors or omissions. [facility] History Medical History: Reports:: Cancer (L BREAST), Hyperlipidemia, Hypertension Denies:: Diabetes Mellitus Type 1, Diabetes Mellitus Type 2, Internal Pacemaker, MRSA, Seizures *Have you ever received a pneumonia vaccine?: Yes *Have you received a flu vaccine this season?: Yes Other Medical History: Reports: Anemia, Arthritis. Denies: Blood Transfusion Reaction Laterality Cases: Left: Mastectomy, Right: Total Hip Replacement, Bilateral: Carpal Tunnel Release, Tonsillectomy Other Surgeries: Yes: Cancer Surgery (right breast ), Cholecystectomy, Colonoscopy. No: Pacemaker Amputation: No Fractures: No - *Social History Smoking Status: Never smoker Alcohol Intake: never Alcohol Intake Frequency:: holidays/special occasions only Substance Use Type: denies use *Occupational Status:: retired Housing: house Household Members: spouse *Travel in the last 8 weeks: None Family Hx:: Cancer
== END ==
PROVIDERS: Visit Provider Student in an Organized Health Care Education/Training Program
DX: M51.16 Intervertebral disc disorders with radiculopathy, lumbar region (principal); M25.561 Pain in right knee; M25.562 Pain in left knee
CPT/HCPCS: 99212; G0463

== ENCOUNTER → 2021-11-02 09:55 | Outpatient (CLI) | payer MEDICARE, SELFPAY ==
[2021-11-02 10:50] LABS: Hematocrit 38.1 % (37.0-47.0); Hemoglobin 12.4 g/dL (12.2-16.2); Mean Corpuscular HGB Conc 32.5 g/dL (31.8-35.4); Mean Corpuscular Hemoglobin 31.3 pg (27.0-31.2); Mean Corpuscular Volume 96.3 fl (81-99); Platelet Count 220 K/mm3 (142-424); Red Blood Count 3.96 M/mm3 (4.20-5.40); Red Cell Distribution Width 14.7 % (11.5-17.5); White Blood Count 10.3 K/mm3 (4.8-10.8)
[2021-11-02 11:23] LABS: Chloride 106 mmol/L (98-107); Sodium 139 mmol/L (136-145)
[2021-11-02 11:26] LABS: Alanine Aminotransferase 29 U/L (12-78); Albumin Level 4.3 g/dl (3.5-5.0); Albumin/Globulin Ratio 1.8 (1.1-1.8); Alkaline Phosphatase 93 U/L (38-126); Anion Gap 12.6 mEq/L (5-15); Aspartate Amino Transferase 26 U/L (14-36); Bilirubin,Total 0.9 mg/dl (0.2-1.3); Blood Urea Nitrogen 28 mg/dl (7-17); Carbon Dioxide 25 mmol/L (22.0-30.0); Estimated Glomerular Filt Rate 49 ml/min (>60); GFR (African American) 59 ML/MIN (>60); Globulin 2.4 g/dL (1.3-3.2); Glucose 125 mg/dl (74-100); Potassium 4.6 mmoL/L (3.5-5.1); Total Protein,Serum 6.7 g/dl (6.3-8.2)
[2021-11-02 11:35] LABS: NT Pro Brain Natriuretic Pep. 150 pg/mL (0-125)
[2021-11-02 11:36] LABS: D-Dimer 0.65 ug/mL (0.0-0.5)
== END ==
PROVIDERS: PCP Family Medicine; Visit Provider Internal Medicine Cardiovascular Disease
DX: R06.00 Dyspnea, unspecified (principal); R07.89 Other chest pain; R61 Generalized hyperhidrosis; I10 Essential (primary) hypertension
CPT/HCPCS: 36415; 80053; 83880; 85014; 85018; 85048; 85049; 85378

== ENCOUNTER 2021-11-16 08:35 | Day surgery (SDC) | payer MEDICARE, SELFPAY ==
[2021-11-16 08:46] VITALS: BP 156/77; PULSE 65; RESP 20; TEMP 36.2; O2SAT 99; BMI 34.5
[2021-11-16 09:22] VITALS: BP 153/69; PULSE 74; RESP 20; O2SAT 96
[2021-11-16 09:37] VITALS: BP 141/67; PULSE 60; RESP 20; O2SAT 98
--- NOTE | 2021-11-16 09:55 | HMH.PMPROC ---
- Procedure Date: 11/16/21 Time: 09:55 Anesthesiologist:: Tobias Partida MD Complications:: None Pre-procedure Diagnosis:: Degenerative disc disease of lumbar spine with lumbar radiculopathy symptoms Post-procedure Diagnosis:: Same Indications for Procedure:: Patient is a pleasant 71-year-old white female who we are treating for low back pain with lumbar radiculopathy symptoms. She usually does well with these injections with 80 to 90% relief in pain symptoms for up to 3 months. She got her last injection at L4-L5 which did not last as long. She is does well when they are up at the L2-L3 level. She does have significant scoliosis and throughout the lumbar spine. We will plan on a repeat lumbar pleural steroid injection today at the L2-L3 level. Procedure Details:: Informed consent was obtained and the risk and benefits of the procedure was explained to the patient. The patient was taken to the procedure room. The patient was placed prone on the procedure table. The patient was prepped and draped in sterile fashion. C-arm fluoroscopy was used to view the lumbar spine. Skin and subcutaneous tissues were anesthetized using lidocaine. I placed an 18-gauge epidural needle and advanced into the L2-L3 interspace using fluoroscopic guidance and [id number] to air. After confirmation of needle placement in the epidural space with dye I injected 2 mL of lidocaine 1.5% with Depo-Medrol 80 mg. Patient tolerated the procedure well with no complications. Plan and Disposition:: We will follow-up with her in the office in 2 weeks. Will reevaluate her symptoms at that time.
== END 2021-11-16 09:38 | disposition home or self-care (01) ==
LOC: SC.PAINP 08:36
PROVIDERS: PCP Family Medicine; Visit Provider Anesthesiology
DX: M51.16 Intervertebral disc disorders with radiculopathy, lumbar region (principal); M41.9 Scoliosis, unspecified
CPT/HCPCS: 62323; J1040; Q9966

== ENCOUNTER → 2022-01-08 09:14 | Outpatient (POV) | payer MEDICARE, SELFPAY ==
[2022-01-08 09:31] VITALS: BP 150/75; PULSE 69; RESP 20; O2SAT 96; BMI 32.9
--- NOTE | 2022-01-08 09:47 | HMH.PAINSOAP ---
[facility] Pain Management SOAP Note Subjective:: Patient is a pleasant 71-year-old female who comes today for follow-up. We are currently treating the patient for degenerative disc disease of lumbar spine with lumbar radiculopathy symptoms. Today she rates her pain an 8 out of 10. She states the pain is all in her low back area. She denies any new trauma. She denies any change to the location or type of pain she experiences. We have done injective therapy in the past that provided significant relief. Her last lumbar epidural steroid injection at L2-L3 provided 80 to 90% relief. These injections typically give her about 2 to 3 months worth of symptom improvement. Patient states she is still using her compounding cream and states she has about 3 refills left. She states this cream is working well to give her moderate improvement of her symptoms. Patient states that she has had meloxicam in the past that provided significant relief in her shoulder but also her back. She is requesting a prescription at today's visit for this. Patient denies any side effects from this medication. Her Jose Miguel is [phone]. It is been reviewed and appropriate. Review of Systems: General: No recent weight changes, no fever, no sleep disturbances Respiratory: No cough, no shortness of air, no recurring pulmonary infections Cardiovascular/peripheral vascular: No chest pain, no palpitations, no edema, no shortness of breath Gastrointestinal: No new onset incontinence, normal bowel movements reported Genitourinary: No new onset incontinence Musculoskeletal: Low back pain Psychiatric: [Normal mood/affect] Neurological: [Denies weakness in extremities], [denies balance issues] Objective:: Physical Exam: General: Alert and oriented x3, no acute distress, pleasant and cooperative Lungs: Respirations even and unlabored, symmetrical chest expansion Eyes: PERRL Musculoskeletal: Flexion and extension of lumbar [spine] somewhat guarded secondary to pain, [antalgic gait noted] Neurological: Speech clear, no gross sensory deficit Assessment:: Degenerative disc disease of lumbar spine with lumbar radiculopathy symptoms Plan:: Patient has had significant improvement with previous lumbar epidural steroid injections. I have discussed with the patient regarding having a repeat epidural steroid injection. Risk and benefits were discussed with the patient. She would like to proceed forward with this injection. Patient has enough refills on her compounding cream to provide about 2 to 3 months. I have informed her that we will follow-up on this refill at her next appointment. I will add meloxicam to the patient's medication regimen. I will provide a 3 month supply of this medication. Patient denies any cardiac history. We will schedule the patient for a lumbar epidural steroid injection at L2-L3 at today's visit. Patient has been instructed to contact the clinic with any concerns before the next appointment. Dr. Partida has reviewed this note and agrees with this plan of care. This note was dictated using voice recognition software and make contain errors or omissions. [facility] History I have reviewed the patient's past medical history: Yes Medical History: Reports:: Cancer (L BREAST), Hyperlipidemia, Hypertension Denies:: Diabetes Mellitus Type 1, Diabetes Mellitus Type 2, Internal Pacemaker, MRSA, Seizures *Have you ever received a pneumonia vaccine?: Yes *Have you received a flu vaccine this season?: Yes Other Medical History: Reports: Anemia, Arthritis. Denies: Blood Transfusion Reaction Laterality Cases: Left: Mastectomy, Right: Total Hip Replacement, Bilateral: Carpal Tunnel Release, Tonsillectomy Other Surgeries: Yes: Cancer Surgery (right breast ), Cholecystectomy, Colonoscopy. No: Pacemaker Amputation: No Fractures: No - *Social History Smoking Status: Never smoker Alcohol Intake: never Alcohol Intake Frequency:: holidays/special occasions only Substance Use Type: denies use
== END ==
PROVIDERS: PCP Family Medicine; Visit Provider Nurse Practitioner Family
DX: M51.16 Intervertebral disc disorders with radiculopathy, lumbar region (principal)
CPT/HCPCS: 99212; G0463

== ENCOUNTER → 2022-01-08 10:15 | Outpatient (POV) | payer MEDICARE, SELFPAY | PROVIDERS: Visit Provider Dermatology | DX: Z00.00 Encounter for general adult medical examination without abnormal findings (principal) ==

== ENCOUNTER 2022-01-15 10:29 | Day surgery (SDC) | payer MEDICARE, SELFPAY ==
[2022-01-15 10:37] VITALS: BP 176/87; PULSE 64; RESP 18; TEMP 36.8; O2SAT 99; BMI 32.9
[2022-01-15 11:00] VITALS: BP 151/81; PULSE 57; RESP 18; TEMP 36.9; O2SAT 98
--- NOTE | 2022-01-15 11:05 | HMH.PMPROC ---
- Procedure Date: 01/15/22 Time: 11:05 Anesthesiologist:: Tobias Partida MD Complications:: None Pre-procedure Diagnosis:: Degenerative disc disease of lumbar spine with lumbar radiculopathy symptoms with scoliosis Post-procedure Diagnosis:: Same Indications for Procedure:: This patient is a pleasant 8-year-old white female who we are treating for low back pain with lumbar radiculopathy symptoms. She does well with lumbar epidural steroid injections at L2-L3. They have provided her 80 to 90% relief in her pain symptoms for several weeks. Her pain is starting to return in the L2-L3 region. We will plan on repeat lumbar epidural steroid injection under fluoroscopy today. Procedure Details:: Informed consent was obtained and the risk and benefits of the procedure was explained to the patient. The patient was taken to the procedure room. The patient was placed prone on the procedure table. The patient was prepped and draped in sterile fashion. C-arm fluoroscopy was used to view the lumbar spine. Skin and subcutaneous tissues were anesthetized using lidocaine. I placed an 18-gauge epidural needle and advanced into the L2-L3 interspace using fluoroscopic guidance and [id number] to air. After confirmation of needle placement in the epidural space with dye I injected 2 mL of lidocaine 1.5% with Depo-Medrol 80 mg. Patient tolerated the procedure well with no complications. Plan and Disposition:: We will follow-up with her in 2 weeks. Will reevaluate symptoms at that time.
== END 2022-01-15 11:04 | disposition home or self-care (01) ==
LOC: SC.PAINP 10:30
PROVIDERS: PCP Family Medicine; Visit Provider Anesthesiology
DX: M51.16 Intervertebral disc disorders with radiculopathy, lumbar region (principal); M41.9 Scoliosis, unspecified
CPT/HCPCS: 62323; J1040

== ENCOUNTER → 2022-01-29 14:21 | Outpatient (POV) | payer MEDICARE, SELFPAY ==
[2022-01-29 14:48] VITALS: BP 188/84; PULSE 63; RESP 20; BMI 32.9
--- NOTE | 2022-01-29 15:03 | EXP.PAIN.SOA ---
[facility] Pain Management SOAP Note Subjective:: Patient is a pleasant 71-year-old female who presents today for follow-up from lumbar epidural steroid injection at L2-L3 on 01/15/2022. We are currently treating the patient for degenerative disc disease of lumbar spine with lumbar radiculopathy symptoms. Patient states she has had significant improvement following this injection. She states about 60 to 70% relief of her symptoms and feels like it is still continuing to help. Today she rates her pain a 3 out of 10. She states the pain is primarily in her low back. She states this is a achy sensation that is worse with increased activity. Patient states that she typically gets 2 to 3 months of relief following each injection. Patient is currently prescribed compounding cream and states that this significantly improves her pain symptoms. She is needing a new prescription sent on this medication. Patient also states that the meloxicam she started is not providing any improvement and has stopped taking this. Patient is currently prescribed gabapentin 300 mg 3 times a day by Bea menendez. Patient states this medication does give her a hung over or groggy sensation. Her Jose Miguel is [id number]. It has been reviewed and appropriate. Review of Systems: General: No recent weight changes, no fever, no sleep disturbances Respiratory: No cough, no shortness of air, no recurring pulmonary infections Cardiovascular/peripheral vascular: No chest pain, no palpitations, no edema, no shortness of breath Gastrointestinal: No new onset incontinence, normal bowel movements reported Genitourinary: No new onset incontinence Musculoskeletal: Low back pain Psychiatric: [Normal mood/affect] Neurological: [Denies weakness in extremities], [denies balance issues] Objective:: Physical Exam: General: Alert and oriented x3, no acute distress, pleasant and cooperative Lungs: Respirations even and unlabored, symmetrical chest expansion Eyes: PERRL Musculoskeletal: Flexion and extension of lumbar [spine] somewhat guarded secondary to pain, [antalgic gait noted] Neurological: Speech clear, no gross sensory deficit Assessment:: Degenerative disc disease of lumbar spine with lumbar radiculopathy symptoms, scoliosis Plan:: Patient has had significant improvement in her pain symptoms following her last epidural steroid injection. At this time she is not requiring additional injective therapy. I will refill the patient's compounding cream at today's visit. I did discuss with the patient regarding decreasing her gabapentin dosage from 300 mg to 100 mg 3 times daily to help minimize her side effects. This is prescribed from an outside provider and I have counseled the patient regarding contacting their office for this adjustment. Patient will return to clinic in 1 month for follow-up and reevaluation of symptoms. I have also told the patient at her next follow-up if she still is not in need of injective therapy she will be able to call and schedule her next lumbar epidural via phone. Patient has been instructed to contact the clinic with any concerns before the next appointment. Dr. Partida has reviewed this note and agrees with this plan of care. This note was dictated using voice recognition software and make contain errors or omissions. PFSH PFSH Social History Smoking Status: Never smoker second hand exposure: No alcohol intake: never substance use type: denies use current occupational status: retired Travel in the last 8 weeks: None household members: spouse housing: house current occupation: [employer] current occupational exposures/hazards: No caffeine: Yes
== END ==
PROVIDERS: PCP Family Medicine; Visit Provider Nurse Practitioner Family
DX: M51.16 Intervertebral disc disorders with radiculopathy, lumbar region (principal); M41.9 Scoliosis, unspecified
CPT/HCPCS: 99212; G0463

== ENCOUNTER → 2022-02-28 14:01 | Outpatient (POV) | payer MEDICARE, SELFPAY ==
[2022-02-28 14:13] VITALS: BP 153/72; PULSE 72; RESP 18; TEMP 36.4; O2SAT 97; BMI 32.9
--- NOTE | 2022-02-28 14:21 | EXP.PAIN.SOA ---
[facility] Pain Management SOAP Note Subjective:: Patient is a pleasant 71-year-old female who presents today for follow-up. We are currently treating the patient for degenerative disc disease of lumbar spine with lumbar radiculopathy symptoms. Today she rates her pain a 4 out of 10. She states the pain is primarily in her low back that radiates into her bilateral lower extremities. She describes this as a aching, throbbing sensation that is worse with increased activity. Patient had a lumbar epidural at L2-L3 on 01/15/2022 that provided at least 70% relief. Patient typically gets about 2 to 3 months worth of relief with each of these injections. Patient does currently still use her compounding cream that provides significant improvement along with her meloxicam. Patient denies any side effects from these medications. Patient states these medications do help manage her pain symptoms. Patient is requesting refills at today's visit. Patient states that she is no longer taking her gabapentin 300 mg 3 times a day due to the hung over/groggy sensations it was causing. Patient states that she feels much better and more alert following discontinuation of this medication. Her Jose Miguel is [phone]. It has been reviewed and appropriate. Review of Systems: General: No recent weight changes, no fever, no sleep disturbances Respiratory: No cough, no shortness of air, no recurring pulmonary infections Cardiovascular/peripheral vascular: No chest pain, no palpitations, no edema, no shortness of breath Gastrointestinal: No new onset incontinence, normal bowel movements reported Genitourinary: No new onset incontinence Musculoskeletal: Low back pain Psychiatric: [Normal mood/affect] Neurological: [Denies weakness in extremities], [denies balance issues] Objective:: Physical Exam: General: Alert and oriented x3, no acute distress, pleasant and cooperative Lungs: Respirations even and unlabored, symmetrical chest expansion Eyes: PERRL Musculoskeletal: Flexion and extension of lumbar [spine] somewhat guarded secondary to pain, [antalgic gait noted] Neurological: Speech clear, no gross sensory deficit Assessment:: Degenerative disc disease lumbar spine with lumbar radiculopathy symptoms Plan:: Patient does continue to have pain in her low back that radiates into her bilateral lower extremities. In the past the patient has had significant improvement following repeat lumbar epidural injections. I have discussed with the patient regarding scheduling her next epidural. Risk and benefits were discussed with the patient. She would like to proceed forward with this injection. I will also send in a refill order on her compounding cream and meloxicam. Patient is not currently on any blood thinners. We will schedule the patient for a lumbar epidural steroid injection at L2-L3 at today's visit. Patient has been instructed to contact the clinic with any concerns before the next appointment. Dr. Partida has reviewed this note and agrees with this plan of care. This note was dictated using voice recognition software and make contain errors or omissions. PFSH PFSH Social History Smoking Status: Never smoker second hand exposure: No alcohol intake: never substance use type: denies use current occupational status: retired Travel in the last 8 weeks: None household members: spouse housing: house current occupation: [employer] current occupational exposures/hazards: No caffeine: Yes
== END | disposition home or self-care (01) ==
PROVIDERS: Visit Provider Nurse Practitioner Family
DX: M51.16 Intervertebral disc disorders with radiculopathy, lumbar region (principal)
CPT/HCPCS: 99212; G0463

== ENCOUNTER 2022-03-12 12:56 | Day surgery (SDC) | payer MEDICARE, SELFPAY ==
[2022-03-12 13:04] VITALS: BP 135/94; PULSE 62; RESP 18; TEMP 36.6; O2SAT 99; BMI 33.0
[2022-03-12 13:12] VITALS: BP 161/80; PULSE 66; RESP 18; O2SAT 97
[2022-03-12 13:14] VITALS: BP 161/80; PULSE 66; RESP 18; O2SAT 98
[2022-03-12 13:20] VITALS: BP 150/64; PULSE 66; RESP 18; O2SAT 96
--- NOTE | 2022-03-12 13:45 | EXP.PAIN.PRO ---
Procedure Date: 03/12/22 Time: 13:30 Anesthesiologist:: Balbir Knott CRNA Complications:: None Pre-procedure Diagnosis:: Degenerative disc disease lumbar spine multilevels. Lumbar radiculopathy. Spinal stenosis lumbar spine Post-procedure Diagnosis:: Same. Indications for Procedure:: Very pleasant 71-year-old female that comes our clinic today for lumbar epidural steroid injection at the L2-3 level. Also epidurogram for spinal stenosis evaluation. Patient describes her low back pain as constant, dull, aching. Procedure Details:: Procedure: Lumbar epidural steroid injection under fluoroscopy Informed consent was obtained and the risks and benefits of the procedure were explained to the patient. The patient was taken to the procedure room and noninvasive monitors placed, including noninvasive blood pressure cuff and pulse oximeter. The back was viewed using C-arm Fluoroscopy and prepped using Chloraprep as a cleansing solution and the L4-L5 interspace was palpated. Skin and subcutaneous tissues were anesthetized using lidocaine 1.5% and a 25-gauge needle. After this, an 18-gauge Touhy epidural needle was placed into the L4-L5 interspace and advanced using fluoroscopic guidance and loss of resistance to air until the epidural space was encountered. After confirmation of needle placement in the epidural space, with dye, a solution containing normal saline, 3 mL and Depo-Medrol 80 mg were incrementally injected into the lumbar epidural space. The patient tolerated the procedure well with no complications. The patient was observed in the Pain Clinic and then discharged home neurologically intact. Plan and Disposition:: Patient was discharged without incident.
== END 2022-03-12 13:20 | disposition home or self-care (01) ==
LOC: SC.PAINP 12:57
PROVIDERS: PCP Family Medicine; Visit Provider Nurse Anesthetist, Certified Registered
DX: M51.16 Intervertebral disc disorders with radiculopathy, lumbar region (principal); M48.061 Spinal stenosis, lumbar region without neurogenic claudication
CPT/HCPCS: 62323; J1040

== ENCOUNTER → 2022-04-09 15:01 | Outpatient (POV) | payer MEDICARE, SELFPAY ==
[2022-04-09 15:13] VITALS: BP 131/84; PULSE 69; RESP 18; O2SAT 99; BMI 32.9
--- NOTE | 2022-04-09 15:37 | EXP.PAIN.SOA ---
[facility] Pain Management SOAP Note Subjective:: Patient is a pleasant 71-year-old female who presents today for follow-up of lumbar epidural steroid injection at L4 for L5 on 03/13/2022. We are currently treating the patient for degenerative disc disease lumbar spine multilevels with lumbar radiculopathy symptoms, spinal stenosis lumbar spine. Today patient states that she has had 80% relief following this injection and feels like it is still continuing to help. Patient does rate her pain a 2 out of 10. Patient denies any new trauma or injury. Patient denies any change in location or type of pain she experiences. Patient has had multiple epidurals in the past that provided significant improvement of her symptoms. These injections typically last approximately 2 to 3 months worth of relief. Patient is prescribed compounding cream however she states the last couple weeks she is not needed it due to the decreased pain. Patient was previously prescribed gabapentin 300 mg 3 times a day from an outside provider however due to the side effects of feeling hung over/groggy she has discontinued it. Her Jose Miguel is [id number]. It has been reviewed and appropriate. Injections: 03/12/2022?LESI L4-L5 01/15/2022?LESI L2-L3 11/16 2021?LESI L2-L3 --2021?LESI L4-L5 04/2021?LESI L2-L3 01/2021?LESI L2 through L3 -2020?LESI L5-S1 11/17/2020?LESI L5-S1 -2020?LESI L2-L3 Review of Systems: General: No recent weight changes, no fever, no sleep disturbances Respiratory: No cough, no shortness of air, no recurring pulmonary infections Cardiovascular/peripheral vascular: No chest pain, no palpitations, no edema, no shortness of breath Gastrointestinal: No new onset incontinence, normal bowel movements reported Genitourinary: No new onset incontinence Musculoskeletal: Low back pain, bilateral leg pain Psychiatric: [Normal mood/affect] Neurological: [Denies weakness in extremities], [denies balance issues] Objective:: Physical Exam: General: Alert and oriented x3, no acute distress, pleasant and cooperative Lungs: Respirations even and unlabored, symmetrical chest expansion Eyes: PERRL Musculoskeletal: Flexion and extension of lumbar [spine] somewhat guarded secondary to pain, [antalgic gait noted] Neurological: Speech clear, no gross sensory deficit Assessment:: Degenerative disc disease of lumbar spine multilevels with lumbar radiculopathy symptoms, spinal stenosis lumbar spine Plan:: Patient has had significant improvement following this last lumbar epidural injection. I have discussed with the patient regarding having repeat lumbar epidural steroid injections in the future. Risk and benefits were discussed with the patient. She would like to proceed forward with this plan of care. She is not currently on any blood thinners. We will schedule her for a lumbar epidural steroid injection at L4-L5. Patient has been instructed to contact the clinic with any concerns before the next appointment. Dr. Partida has reviewed this note and agrees with this plan of care. This note was dictated using voice recognition software and make contain errors or omissions. PFSH PFSH Medical History (Updated 03/12/22 @ 13:03 by Louisa Ge RN) Arthritis Hyperlipidemia Hypertension Surgical History (Updated 03/12/22 @ 13:03 by Louisa Ge RN) History of bilateral knee replacement Family History Other No significant family history Social History Smoking Status: Never smoker second hand exposure: No alcohol intake: never substance use type: denies use current occupational status: retired Travel in the last 8 weeks: None household members: spouse housing: house current occupation: [employer] current occupational exposures/hazards: No caffeine: Yes
== END ==
PROVIDERS: PCP Family Medicine; Visit Provider Nurse Practitioner Family
DX: M51.16 Intervertebral disc disorders with radiculopathy, lumbar region (principal); M48.061 Spinal stenosis, lumbar region without neurogenic claudication
CPT/HCPCS: 99212; G0463

== ENCOUNTER 2022-05-07 13:13 | Day surgery (SDC) | payer MEDICARE, SELFPAY ==
[2022-05-07 13:30] VITALS: BP 98/65; PULSE 70; RESP 18; TEMP 36.4; O2SAT 92; BMI 34.5
[2022-05-07 13:38] VITALS: BP 145/100; PULSE 89; RESP 18; O2SAT 98
--- NOTE | 2022-05-07 13:43 | EXP.PAIN.PRO ---
Procedure Date: 05/07/22 Time: 13:30 Anesthesiologist:: Balbir Knott CRNA Complications:: None Pre-procedure Diagnosis:: Degenerative disc disease lumbar spine multilevels. Lumbar radiculopathy. Post-procedure Diagnosis:: Same. Indications for Procedure:: Patient is a very pleasant 72-year-old female that comes our clinic today for repeat lumbar epidural steroid injection of the L4-5 level. Patient reports significant improvement with her last injection at this level. She rates her low back pain 4/10. Also complains of some bilateral hip and leg radicular symptoms at times. Procedure Details:: Procedure: Lumbar epidural steroid injection under fluoroscopy Informed consent was obtained and the risks and benefits of the procedure were explained to the patient. The patient was taken to the procedure room and noninvasive monitors placed, including noninvasive blood pressure cuff and pulse oximeter. The back was viewed using C-arm Fluoroscopy and prepped using Chloraprep as a cleansing solution and the L4-L5 interspace was palpated. Skin and subcutaneous tissues were anesthetized using lidocaine 1.5% and a 25-gauge needle. After this, an 18-gauge Touhy epidural needle was placed into the L4-L5 interspace and advanced using fluoroscopic guidance and loss of resistance to air until the epidural space was encountered. After confirmation of needle placement in the epidural space, with dye, a solution containing normal saline, 3 mL and Depo-Medrol 80 mg were incrementally injected into the lumbar epidural space. The patient tolerated the procedure well with no complications. The patient was observed in the Pain Clinic and then discharged home neurologically intact. Plan and Disposition:: Patient was discharged without incident.
[2022-05-07 13:48] VITALS: BP 101/58; PULSE 70; RESP 18; TEMP 36.4; O2SAT 98
== END 2022-05-07 13:50 | disposition home or self-care (01) ==
PROVIDERS: PCP Family Medicine; Visit Provider Nurse Anesthetist, Certified Registered
DX: M51.16 Intervertebral disc disorders with radiculopathy, lumbar region (principal)
CPT/HCPCS: 62323; J1040

== ENCOUNTER → 2022-05-21 10:54 | Outpatient (POV) | payer MEDICARE, SELFPAY ==
[2022-05-21 11:07] VITALS: BP 115/58; PULSE 71; RESP 18; O2SAT 98; BMI 33.9
--- NOTE | 2022-05-21 11:38 | EXP.PAIN.SOA ---
[facility] Pain Management SOAP Note Subjective:: Patient is a pleasant 72-year-old female who presents today for follow-up of lumbar epidural steroid injection at L4-L5 on 05/07/2022. We are currently treating the patient for degenerative disc disease of lumbar spine multilevels with lumbar radiculopathy symptoms, spinal stenosis lumbar spine. Today she states that she did have significant improvement following this injection however it was less in comparison to prior epidural injections she has had. Patient previously had injections that provided upwards of 80% relief lasting 2 to 3 months. This injection she states was approximately at least 50% however she questions whether or not her recent surgery may have interfered with its effectiveness. Patient states she has recently presented to the ER for right upper arm pain and had a ultrasound and CT that were negative for any clots however the surgeon found it necessary to proceed forward. Patient states that he did a thorough cleanout on her right arm and states they were no clots found. Patient states her right arm pain has subsided however she does currently have pain at the incision site. Patient states that she was prescribed Eliquis following this interaction. She is scheduled to see her surgeon on the for follow-up. Patient is interested in future injective therapy. She is prescribed compounding cream that she states does provide significant improvement of her symptoms. Her Jose Miguel is [phone]. Its been reviewed and appropriate. Review of Systems: General: No recent weight changes, no fever, no sleep disturbances Respiratory: No cough, no shortness of air, no recurring pulmonary infections Cardiovascular/peripheral vascular: No chest pain, no palpitations, no edema, no shortness of breath Gastrointestinal: No new onset incontinence, normal bowel movements reported Genitourinary: No new onset incontinence Musculoskeletal: Low back pain Psychiatric: [Normal mood/affect] Neurological: [Denies weakness in extremities], [denies balance issues] Objective:: Physical Exam: General: Alert and oriented x3, no acute distress, pleasant and cooperative Lungs: Respirations even and unlabored, symmetrical chest expansion Eyes: PERRL Musculoskeletal: Flexion and extension of lumbar [spine] somewhat guarded secondary to pain, [antalgic gait noted] Neurological: Speech clear, no gross sensory deficit Assessment:: Degenerative disc disease of lumbar spine multilevels with lumbar radiculopathy symptoms, spinal stenosis lumbar spine Plan:: Patient continues to experience significant pain in her low back with radiating symptoms into her lower extremities. Patient did have limited range of motion of her lumbar spine during today's visit. I have discussed with the patient that she may benefit from repeat lumbar epidural steroid injections however this is contingent upon her follow-up appointment with her surgeon coming up next week. I have counseled the patient that she would need to come off her Eliquis prior to this injection and therefore would need approval from the surgeon. Patient would like to go ahead and schedule this injection for the future and will contact our office if she is unable to come off her Eliquis or if the surgeon has a problem with her proceeding forward. We will schedule her for a LESI L4-L5. Patient has been instructed to contact the clinic with any concerns before the next appointment. Dr. Partida has reviewed this note and agrees with this plan of care. This note was dictated using voice recognition software and make contain errors or omissions. [facility] Disclaimer: The information contained in this section may have been updated after the patient was seen, as this information can be updated by other users. Medical History Arthritis Hyperlipidemia Hypertension Surgical History (Reviewed 05/07/22 @ 13:30 by Louisa Rankin
== END ==
PROVIDERS: Visit Provider Nurse Practitioner Family
DX: M51.16 Intervertebral disc disorders with radiculopathy, lumbar region (principal); M48.061 Spinal stenosis, lumbar region without neurogenic claudication
CPT/HCPCS: 99212; G0463

== ENCOUNTER → 2022-08-26 11:06 | Outpatient (POV) | payer MEDICARE, SELFPAY ==
--- NOTE | 2022-08-26 11:34 | EXP.PAIN.SOA ---
[facility] Pain Management SOAP Note Subjective:: Patient is a pleasant 72-year-old female who presents today for medication refill and follow-up. We are currently treating the patient for degenerative disc disease of lumbar spine with lumbar radiculopathy symptoms, spinal stenosis lumbar spine. Today she rates her pain a 3 out of 10. Patient denies any new trauma or injury. Patient denies any change to location or type of pain she experiences. At our last visit the patient had to have a declotting of her right arm related to increased pain. Patient was placed on Eliquis and is still currently taking this medication. She is scheduled for her follow-up visit with this provider on of this week. Patient denies any new symptoms following this episode. She does state that she still occasionally has increased fatigue. Patient is currently prescribed meloxicam 7.5 mg daily. Patient denies any side effects from this medication. Patient is also prescribed compounding cream that she states provides additional relief. She states her refills are expiring after this month. Patient previously did have multiple injections in the past that provided upwards of 80% relief or more lasting 2 to 3 months. her Jose Miguel is [id number]. Its been reviewed and appropriate. Review of Systems: General: No recent weight changes, no fever, no sleep disturbances Respiratory: No cough, no shortness of air, no recurring pulmonary infections Cardiovascular/peripheral vascular: No chest pain, no palpitations, no edema, no shortness of breath Gastrointestinal: No new onset incontinence, normal bowel movements reported Genitourinary: No new onset incontinence Musculoskeletal: Low back pain Psychiatric: [Normal mood/affect] Neurological: [Denies weakness in extremities], [denies balance issues] Objective:: Physical Exam: General: Alert and oriented x3, no acute distress, pleasant and cooperative Lungs: Respirations even and unlabored, symmetrical chest expansion Eyes: PERRL Musculoskeletal: Flexion and extension of lumbar [spine] somewhat guarded secondary to pain, [antalgic gait noted] Neurological: Speech clear, no gross sensory deficit Assessment:: Degenerative disc disease of lumbar spine with lumbar radiculopathy symptoms, spinal stenosis lumbar spine Plan:: Patient is doing well with her current medication regimen. I will refill her meloxicam 7.5 mg daily and provide a 2-month supply of this medication. I will also send in a new order for the compounding cream. Patient will return to clinic in 4 months for reevaluation of symptoms, medication refill and follow-up. Patient has been instructed to contact the clinic with any concerns before the next appointment. Dr. Partida has reviewed this note and agrees with this plan of care. This note was dictated using voice recognition software and make contain errors or omissions. [facility] Disclaimer: The information contained in this section may have been updated after the patient was seen, as this information can be updated by other users. Medical History Arthritis Hyperlipidemia Hypertension Surgical History History of bilateral knee replacement Family History Other No significant family history Social History Smoking Status: Never smoker second hand exposure: No alcohol intake: never substance use type: denies use current occupational status: retired Travel in the last 8 weeks: None household members: spouse housing: house current occupation: [employer] current occupational exposures/hazards: No caffeine: Yes
[2022-08-26 12:21] VITALS: BP 126/60; PULSE 66; RESP 18; O2SAT 96; BMI 34.8
== END | disposition home or self-care (01) ==
PROVIDERS: PCP Family Medicine; Visit Provider Nurse Practitioner Family
DX: M51.16 Intervertebral disc disorders with radiculopathy, lumbar region (principal); M48.061 Spinal stenosis, lumbar region without neurogenic claudication
CPT/HCPCS: 99212; G0463

== ENCOUNTER 2022-09-24 08:35 | Day surgery (SDC) | payer MEDICARE, SELFPAY ==
[2022-09-24 08:47] VITALS: BP 129/79; PULSE 67; RESP 18; TEMP 36.1; O2SAT 98; BMI 33.9
[2022-09-24 09:01] VITALS: BP 168/72; PULSE 59; RESP 18; O2SAT 98
[2022-09-24 09:02] VITALS: BP 168/72; PULSE 59; RESP 18; O2SAT 98
[2022-09-24 09:14] VITALS: BP 126/56; PULSE 60; RESP 18; O2SAT 98
--- NOTE | 2022-09-24 09:23 | EXP.PAIN.PRO ---
Procedure Date: 09/24/22 Time: 09:00 Anesthesiologist:: Balbir Knott CRNA Complications:: None Pre-procedure Diagnosis:: Degenerative disc disease lumbar spine multilevels. Lumbar radiculopathy. Lumbar spondylosis. Multilevel lumbar facet arthropathy. Post-procedure Diagnosis:: Same. Indications for Procedure:: Patient is a pleasant 72-year-old female comes our clinic today for lumbar epidural steroid injection at the L2-3 level. Patient has received these injections in the past with 2 to 3 months of relief. Patient complains of low back pain. Bilateral hip and leg radicular symptoms at times. Procedure Details:: Procedure: Lumbar epidural steroid injection under fluoroscopy Informed consent was obtained and the risks and benefits of the procedure were explained to the patient. The patient was taken to the procedure room and noninvasive monitors placed, including noninvasive blood pressure cuff and pulse oximeter. The back was viewed using C-arm Fluoroscopy and prepped using Chloraprep as a cleansing solution and the L2-3 interspace was palpated. Skin and subcutaneous tissues were anesthetized using lidocaine 1.5% and a 25-gauge needle. After this, an 18-gauge Touhy epidural needle was placed into the L2-3 interspace and advanced using fluoroscopic guidance and loss of resistance to air until the epidural space was encountered. After confirmation of needle placement in the epidural space, with dye, a solution containing normal saline, 3 mL and Depo-Medrol 80 mg were incrementally injected into the lumbar epidural space. The patient tolerated the procedure well with no complications. The patient was observed in the Pain Clinic and then discharged home neurologically intact. Plan and Disposition:: Patient was discharged without incident.
== END 2022-09-24 09:14 | disposition home or self-care (01) ==
LOC: SC.PAINP 08:36
PROVIDERS: PCP Family Medicine; Visit Provider Nurse Anesthetist, Certified Registered
DX: M51.16 Intervertebral disc disorders with radiculopathy, lumbar region (principal); M47.26 Other spondylosis with radiculopathy, lumbar region
CPT/HCPCS: 62323; J1040; Q9966

== ENCOUNTER → 2022-10-09 09:37 | Outpatient (POV) | payer MEDICARE, SELFPAY ==
[2022-10-09 09:43] VITALS: BP 161/77; PULSE 65; RESP 20; O2SAT 99; BMI 33.9
--- NOTE | 2022-10-09 10:10 | A.OFFVIS_ITS ---
[facility] Pain Management SOAP Note Subjective:: Patient is a pleasant 72-year-old female who presents today for follow-up of lumbar epidural steroid injection of L2-3 on 09/24/2022. We are currently treating the patient for degenerative disc disease of lumbar spine with lumbar radiculopathy symptoms, spinal stenosis lumbar spine. Today she rates her pain a 2 out of 10. She states she has had at least 80% improvement following this injection and it is still continuing to provide additional relief. Patient denies any new trauma or injury. Patient denies any change location or type of pain that she experiences. She states she has been able to increase her activity with decreased pain symptoms and is doing much better overall. She s tates things like cooking and cleaning have been made easier. Patient typically does get upwards of 80% relief with these injections lasting 2 to 3 months. Patient is currently prescribed meloxicam 7.5 mg daily and denies any side effects from this. She is also prescribed compounding cream. Her Jose Miguel is [id number]. Its been reviewed and appropriate. Review of Systems: General: No recent weight changes, no fever, no sleep disturbances Respiratory: No cough, no shortness of air, no recurring pulmonary infections Cardiovascular/peripheral vascular: No chest pain, no palpitations, no edema, no shortness of breath Gastrointestinal: No new onset incontinence, normal bowel movements reported Genitourinary: No new onset incontinence Musculoskeletal: Low back pain Psychiatric: [Normal mood/affect] Neurological: [Denies weakness in extremities], [denies balance issues] Objective:: Physical Exam: General: Alert and oriented x3, no acute distress, pleasant and cooperative Lungs: Respirations even and unlabored, symmetrical chest expansion Eyes: PERRL Musculoskeletal: Flexion and extension of lumbar [spine] somewhat guarded secondary to pain, [antalgic gait noted] Neurological: Speech clear, no gross sensory deficit Assessment:: Degenerative disc disease lumbar spine with lumbar radiculopathy symptoms, spinal stenosis lumbar spine Plan:: Patient has had significant improvement of her low back pain and leg pain following her lumbar epidural steroid injection and does not require any additional injective therapy. Patient will return to clinic in approximately 6 weeks for reevaluation of symptoms and plan of care. Patient has been instructed to contact the clinic with any concerns before the next appointment. Dr. Partida has reviewed this note and agrees with this plan of care. This note was dictated using voice recognition software and make contain errors or omissions. [facility] Disclaimer: The information contained in this section may have been updated after the patient was seen, as this information can be updated by other users. Medical History Arthritis Hyperlipidemia Hypertension Surgical History History of bilateral knee replacement Family History Other No significant family history Social History Smoking Status: Never smoker second hand exposure: No alcohol intake: never substance use type: denies use current occupational status: retired Travel in the last 8 weeks: None household members: spouse housing: house current occupation: [employer] current occupational exposures/hazards: No caffeine: Yes
== END | disposition home or self-care (01) ==
PROVIDERS: PCP Family Medicine; Visit Provider Nurse Practitioner Family
DX: M51.16 Intervertebral disc disorders with radiculopathy, lumbar region (principal); M48.061 Spinal stenosis, lumbar region without neurogenic claudication
CPT/HCPCS: 99212; G0463

== ENCOUNTER → 2022-11-28 09:21 | Outpatient (POV) | payer MEDICARE, SELFPAY ==
--- NOTE | 2022-11-28 09:38 | EXP.PAIN.SOA ---
[facility] Pain Management SOAP Note Subjective:: Patient is a pleasant 72-year-old female who presents today for 1 month follow-up and medication refill. We are currently treating the patient for degenerative disc disease of lumbar spine with lumbar radiculopathy symptoms, spinal stenosis of lumbar spine. Today she rates her pain a 4 out of 10. Patient denies any new trauma or injury. Patient denies any change location or type of pain she experiences. Patient did previously get a lumbar epidural steroid injection of L2-L3 back the beginning of September and it has provided significant improvement of at least 80% lasting up until this appointment. She does state that she can notice it is slowly starting to wear off and she is experiencing increasing pain. Patient does describe the pain as an aching, throbbing sensation that is worse with increased activity. She does state the pain interferes with her ability perform activities of daily living such as cooking and cleaning. She is currently prescribed meloxicam 7.5 mg daily and denies any issues with this medication. She is also prescribed compounding cream. Her Jose Miguel has been reviewed and is appropriate. Review of Systems: General: No recent weight changes, no fever, no sleep disturbances Respiratory: No cough, no shortness of air, no recurring pulmonary infections Cardiovascular/peripheral vascular: No chest pain, no palpitations, no edema, no shortness of breath Gastrointestinal: No new onset incontinence, normal bowel movements reported Genitourinary: No new onset incontinence Musculoskeletal: Low back pain Psychiatric: [Normal mood/affect] Neurological: [Denies weakness in extremities], [denies balance issues] Objective:: Physical Exam: General: Alert and oriented x3, no acute distress, pleasant and cooperative Lungs: Respirations even and unlabored, symmetrical chest expansion Eyes: PERRL Musculoskeletal: Flexion and extension of lumbar [spine] somewhat guarded secondary to pain, [antalgic gait noted] Neurological: Speech clear, no gross sensory deficit Assessment:: Degenerative disc disease of lumbar spine with lumbar radiculopathy symptoms, spinal stenosis lumbar spine Plan:: Patient is experiencing worsening pain in her low back with radiating symptoms into her lower extremities. Patient had limited range of motion of her lumbar spine during today's visit. I have discussed with the patient that she may benefit from repeat lumbar epidural steroid injection. Risk and benefits were discussed with the patient and she would like to proceed forward with this plan of care. Patient is not on any blood thinners. Previously she did get upwards of 80% improvement lasting approximately 2 months. I will also refill her meloxicam 7.5 mg daily and provide a 1 month supply of this medication. We will schedule the patient for an LESI at L2-L3. Patient has been instructed to contact the clinic with any concerns before the next appointment. Dr. Partida has reviewed this note and agrees with this plan of care. This note was dictated using voice recognition software and make contain errors or omissions. [facility] Disclaimer: The information contained in this section may have been updated after the patient was seen, as this information can be updated by other users. Medical History Arthritis Hyperlipidemia Hypertension Surgical History History of bilateral knee replacement Family History Other No significant family history Social History Smoking Status: Never smoker second hand exposure: No alcohol intake: never substance use type: denies use current occupational status: retired Travel in the last 8 weeks: None household members: spouse housing: house current
[2022-11-28 10:56] VITALS: BP 141/68; PULSE 63; RESP 20; O2SAT 99; BMI 33.9
== END | disposition home or self-care (01) ==
PROVIDERS: Visit Provider Nurse Practitioner Family
DX: M51.16 Intervertebral disc disorders with radiculopathy, lumbar region (principal); M48.061 Spinal stenosis, lumbar region without neurogenic claudication
CPT/HCPCS: 99212; G0463

== ENCOUNTER 2022-12-10 13:14 | Day surgery (SDC) | payer MEDICARE, SELFPAY ==
[2022-12-10 13:32] VITALS: BP 145/62; PULSE 64; RESP 16; TEMP 36.5; O2SAT 98; BMI 33.9
[2022-12-10 13:41] VITALS: BP 175/76; PULSE 58; RESP 18; O2SAT 100
[2022-12-10 13:43] VITALS: BP 175/76; PULSE 60; RESP 18; O2SAT 100
--- NOTE | 2022-12-10 13:51 | P.PCN_ITS ---
Procedure Date: 12/10/22 Time: 13:40 Anesthesiologist:: Balbir Knott CRNA Complications:: None Pre-procedure Diagnosis:: Degenerative disc lumbar spine multilevels. Lumbar radiculopathy. Lumbar spondylosis. Multilevel lumbar facet arthropathy Post-procedure Diagnosis:: Same. Indications for Procedure:: Patient is a very pleasant 72-year-old female that comes our clinic today for lumbar epidural steroid injection. Patient has had the injection in the past with significant improvement in terms of her low back pain and bilateral hip and leg radicular symptoms. She rates her pain today 5/10. Procedure Details:: Procedure: Lumbar epidural steroid injection under fluoroscopy Informed consent was obtained and the risks and benefits of the procedure were explained to the patient. The patient was taken to the procedure room and stephanie nvasive monitors placed, including noninvasive blood pressure cuff and pulse oximeter. The back was viewed using C-arm Fluoroscopy and prepped using Chloraprep as a cleansing solution and the L4-L5 interspace was palpated. Skin and subcutaneous tissues were anesthetized using lidocaine 1.5% and a 25-gauge needle. After this, an 18-gauge Touhy epidural needle was placed into the L4-L5 interspace and advanced using fluoroscopic guidance and loss of resistance to air until the epidural space was encountered. After confirmation of needle placement in the epidural space, with dye, a solution containing normal saline, 3 mL and Depo-Medrol 80 mg were incrementally injected into the lumbar epidural space. The patient tolerated the procedure well with no complications. The patient was observed in the Pain Clinic and then discharged home neurologically intact. L2-3 was not accessible today. Plan and Disposition:: Patient was discharged without incident.
[2022-12-10 13:52] VITALS: BP 130/52; PULSE 59; RESP 18; O2SAT 98
== END 2022-12-10 13:52 | disposition home or self-care (01) ==
PROVIDERS: PCP Family Medicine; Visit Provider Nurse Anesthetist, Certified Registered
DX: M51.16 Intervertebral disc disorders with radiculopathy, lumbar region (principal); M47.26 Other spondylosis with radiculopathy, lumbar region
CPT/HCPCS: 62323; J1040

== ENCOUNTER → 2022-12-30 09:26 | Outpatient (POV) | payer MEDICARE, SELFPAY ==
--- NOTE | 2022-12-30 09:54 | EXP.PAIN.SOA ---
[facility] Pain Management SOAP Note Subjective:: Patient is a pleasant 72-year-old female who presents today for follow-up of lumbar epidural steroid injection L4-L5 on 12/10/2022. We are currently treating the patient for degenerative disc disease of lumbar spine with lumbar radiculopathy symptoms, lumbar spinal stenosis. Today she rates her pain a 2 out of 10. Patient denies any new trauma or injury. She did denies any change to the location or type of pain she experiences. She does state that she has had at least 60 to 70% improvement following this injection and feels like it is continuing to provide additional relief. Patient states she has been able to increase her activity with decreased pain symptoms and feels overall more functional. Patient is managed with meloxicam 7.5 mg daily however she states she does not need a refill at this time. Patient is also managed with compounded cream. She states it does continue to provide additional relief and that she is almost out of refills. Her Jose Miguel is [id number]. Its been reviewed and appropriate. Review of Systems: General: No recent weight changes, no fever, no sleep disturbances Respiratory: No cough, no shortness of air, no recurring pulmonary infections Cardiovascular/peripheral vascular: No chest pain, no palpitations, no edema, no shortness of breath Gastrointestinal: No new onset incontinence, normal bowel movements reported Genitourinary: No new onset incontinence Musculoskeletal: Low back pain Psychiatric: [Normal mood/affect] Neurological: [Denies weakness in extremities], [denies balance issues] Objective:: Physical Exam: General: Alert and oriented x3, no acute distress, pleasant and cooperative Lungs: Respirations even and unlabored, symmetrical chest expansion Eyes: PERRL Musculoskeletal: Flexion and extension of lumbar [spine] somewhat guarded secondary to pain, [antalgic gait noted] Neurological: Speech clear, no gross sensory deficit Assessment:: Degenerative disc disease of lumbar spine with lumbar radiculopathy symptoms, lumbar spinal stenosis Plan:: Patient has had significant improvement of her pain symptoms following her lumbar epidural and does not require any additional injective therapy at this time. I will send in a new order of compounding cream. I have counseled the patient to contact our office if she does end up needing refills on her meloxicam. Patient will return to clinic in 1 month for reevaluation of symptoms and plan of care. Patient has been instructed to contact the clinic with any concerns before the next appointment. Dr. Partida has reviewed this note and agrees with this plan of care. This note was dictated using voice recognition software and make contain errors or omissions. [facility] Disclaimer: The information contained in this section may have been updated after the patient was seen, as this information can be updated by other users. Medical History Arthritis Hyperlipidemia Hypertension Surgical History History of bilateral knee replacement Family History Other No significant family history Social History Smoking Status: Never smoker second hand exposure: No alcohol intake: never substance use type: denies use current occupational status: other Travel in the last 8 weeks: None household members: spouse housing: house current occupation: [employer] current occupational exposures/hazards: No caffeine: Yes
[2022-12-30 10:07] VITALS: BP 148/80; PULSE 60; RESP 18; O2SAT 98; BMI 33.9
== END ==
PROVIDERS: PCP Family Medicine; Visit Provider Nurse Practitioner Family
DX: M51.16 Intervertebral disc disorders with radiculopathy, lumbar region (principal); M48.061 Spinal stenosis, lumbar region without neurogenic claudication
CPT/HCPCS: 99212; G0463

== ENCOUNTER → 2023-02-10 10:24 | Outpatient (CLI) | payer MEDICARE, SELFPAY ==
[2023-02-10 10:51] LABS: Basophils % 0.4 % (0.1-2.0); Eosinophils # 0.2 K/mm3 (0.0-0.4); Eosinophils % 2.3 % (0.1-12.0); Hematocrit 41.8 % (37.0-47.0); Lymphocytes % 29.2 % (10-50); Mean Corpuscular HGB Conc 31.2 g/dL (31.8-35.4); Mean Corpuscular Volume 93.1 fl (81-99); Monocytes # 0.5 K/mm3 (0.1-1.0); Monocytes % 6.7 % (1.7-9.3); Neutrophils # 4.2 K/mm3 (1.8-7.8); Neutrophils % 61.4 % (37.0-80.0); Platelet Count 199 K/mm3 (142-424); Red Blood Count 4.49 M/mm3 (4.20-5.40); Red Cell Distribution Width 14.3 % (11.5-17.5); White Blood Count 6.8 K/mm3 (4.8-10.8)
[2023-02-10 11:14] LABS: Hemoglobin A1C 6.1 % (4.0-6.0)
[2023-02-10 12:11] LABS: Chloride 106 mmol/L (98-107); Potassium 4.4 mmoL/L (3.5-5.1); Sodium 140 mmol/L (136-145)
[2023-02-10 12:13] LABS: Blood Urea Nitrogen 15 mg/dl (7-17); Estimated Glomerular Filt Rate 62 ml/min (>60); GFR (African American) 75 ML/MIN (>60)
[2023-02-10 12:14] LABS: Alanine Aminotransferase 29 U/L (12-78); Albumin Level 3.8 g/dl (3.5-5.0); Albumin/Globulin Ratio 1.7 (1.1-1.8); Alkaline Phosphatase 88 U/L (38-126); Anion Gap 12.4 mEq/L (5-15); Aspartate Amino Transferase 28 U/L (14-36); Bilirubin,Total 0.7 mg/dl (0.2-1.3); Calcium 9.1 mg/dl (8.4-10.2); Carbon Dioxide 26 mmol/L (22.0-30.0); Chol/HDL Ratio 2.2 (1-3.5); Cholesterol 112 mg/dl (140-200); Globulin 2.2 g/dL (1.3-3.2); Glucose 126 mg/dl (74-100); HDL Cholesterol 51 mg/dl (40-60); Triglycerides 105 mg/dl (30-150); VLDL Cholesterol 21 mg/dL (0-40)
[2023-02-10 12:25] LABS: Direct LDL Cholesterol 45.23 mg/dL (100-129)
[2023-02-10 12:47] LABS: Thyroid Stimulating Hormone 1.44 uIU/mL (0.465-4.68)
== END ==
PROVIDERS: PCP Family Medicine; Visit Provider Nurse Practitioner
DX: I10 Essential (primary) hypertension (principal); R73.03 Prediabetes; E78.5 Hyperlipidemia, unspecified
CPT/HCPCS: 36415; 80053; 80061; 83036; 84443; 85025

== ENCOUNTER → 2023-04-09 12:47 | Outpatient (POV) | payer MEDICARE, SELFPAY ==
--- NOTE | 2023-04-09 13:17 | EXP.PAIN.SOA ---
[facility] [place] Pain Management SOAP Note Subjective:: Patient is a pleasant 72-year-old female who presents today for follow-up. We are currently treating the patient for degenerative disc disease of lumbar spine with lumbar radiculopathy symptoms, lumbar spinal stenosis today she rates her pain at a 5 out of 10. Patient denies any new trauma or injury. She does state that she is starting to experience more low back and leg pain since her last follow-up with us in December. Patient does describe this as an aching, throbbing sensation that is worse with increased activity and does interfere with ability perform activities of daily living. Patient previously had a lumbar epidural in November of L4-L5 that did provide at least 60 to 70% improvement lasting up until the last month or so. Patient does state that she did experience a significant sinus infection last month as well and that she was put on some oral steroids which helped her overall pain to. Patient is interested in repeating her prior injection. Patient still uses her meloxicam 7.5 mg daily however she does not take this every single day. Patient does also use compounded cream. Her Jose Miguel has been reviewed and is appropriate. Review of Systems: General: No recent weight changes, no fever, no sleep disturbances Respiratory: No cough, no shortness of air, no recurring pulmonary infections Cardiovascular/peripheral vascular: No chest pain, no palpitations, no edema, no shortness of breath Gastrointestinal: No new onset incontinence, normal bowel movements reported Genitourinary: No new onset incontinence Musculoskeletal: Low back pain, leg pain Psychiatric: [Normal mood/affect] Neurological: [Denies weakness in extremities], [denies balance issues] Objective:: Physical Exam: General: Alert and oriented x3, no acute distress, pleasant and cooperative Lungs: Respirations even and unlabored, symmetrical chest expansion Eyes: PERRL Musculoskeletal: Flexion and extension of lumbar [spine] somewhat guarded secondary to pain, [antalgic gait noted] Neurological: Speech clear, no gross sensory deficit Assessment:: Degenerative disc disease of lumbar spine with lumbar radiculopathy symptoms, lumbar spinal stenosis Plan:: Patient is experiencing worsening pain in her low back and legs with limited range of motion. I have discussed with the patient that she may benefit from a lumbar epidural steroid injection. Risk and benefits were discussed with patient and she would like to proceed forward with this plan of care. Patient has tried and failed conservative therapy such as oral medication, heat and ice, topicals, physical therapy, at home stretching and exercise for longer than 6 weeks. Patient has previously had lumbar epidurals that did provide 60 to 70% improvement lasting 3 months. All epidurals are done under fluoroscopic guidance to confirm placement. Patient has been counseled to contact our office with any questions or concerns before their next appointment date. This note has been dictated using voice recognition software and may contain errors or omissions. Dr. Partida has read this note and agrees with this plan of care. [facility] Disclaimer: The information contained in this section may have been updated after the patient was seen, as this information can be updated by other users. Medical History Arthritis Hyperlipidemia Hypertension Surgical History History of bilateral knee replacement Family History Other No significant family history Social History Smoking Status: Never smoker second hand exposure: No alcohol intake: never substance use type: denies use current occupational status: retired Travel in the last 8 weeks: None household members: spo
[2023-04-09 14:32] VITALS: BP 157/74; PULSE 65; RESP 20; O2SAT 98; BMI 32.9
== END ==
PROVIDERS: PCP Family Medicine; Visit Provider Nurse Practitioner Family
DX: M51.16 Intervertebral disc disorders with radiculopathy, lumbar region (principal); M48.061 Spinal stenosis, lumbar region without neurogenic claudication
CPT/HCPCS: 99212; G0463

== ENCOUNTER 2023-04-22 11:28 | Day surgery (SDC) | payer MEDICARE, SELFPAY ==
[2023-04-22 11:45] VITALS: BP 111/66; PULSE 50; RESP 16; TEMP 36.4; O2SAT 99; BMI 33.9
[2023-04-22 11:58] VITALS: BP 110/80; PULSE 56; RESP 18; O2SAT 96
[2023-04-22 11:59] VITALS: BP 110/80; PULSE 48; RESP 18; O2SAT 96
[2023-04-22 12:05] VITALS: BP 126/63; PULSE 59; RESP 16; O2SAT 99
--- NOTE | 2023-04-22 12:12 | EXP.PAIN.PRO ---
Procedure Date: 04/22/23 Time: 11:45 Anesthesiologist:: Balbir Knott CRNA Complications:: None Pre-procedure Diagnosis:: Degenerative disc lumbar spine multilevels. Lumbar radiculopathy. Lumbar spinal stenosis. Post-procedure Diagnosis:: Same. Indications for Procedure:: Patient is a very pleasant 73-year-old female that comes to our clinic today for repeat lumbar epidural steroid injection at the L4-5 level. Patient reports moderate to significant improvement terms of her low back pain as well as bilateral hip and leg radicular symptoms with previous lumbar epidural steroid injection. She rates her pain today 6/10. Procedure Details:: Procedure: Lumbar epidural steroid injection under fluoroscopy Informed consent was obtained and the risks and benefits of the procedure were explained to the patient. The patient was taken to the procedure room and noninvasive monitors placed, including noninvasive blood pressure cuff and pulse oximeter. The back was viewed using C-arm Fluoroscopy and prepped using Chloraprep as a cleansing solution and the L4-L5 interspace was palpated. Skin and subcutaneous tissues were anesthetized using lidocaine 1.5% and a 25-gauge needle. After this, an 18-gauge Touhy epidural needle was placed into the L4-L5 interspace and advanced using fluoroscopic guidance and loss of resistance to air until the epidural space was encountered. After confirmation of needle placement in the epidural space, with dye, a solution containing normal saline, 3 mL and Depo-Medrol 80 mg were incrementally injected into the lumbar epidural space. The patient tolerated the procedure well with no complications. The patient was observed in the Pain Clinic and then discharged home neurologically intact. Plan and Disposition:: Patient was discharged without incident.
== END 2023-04-22 12:05 | disposition home or self-care (01) ==
PROVIDERS: PCP Family Medicine; Visit Provider Nurse Anesthetist, Certified Registered
DX: M51.16 Intervertebral disc disorders with radiculopathy, lumbar region (principal); M48.061 Spinal stenosis, lumbar region without neurogenic claudication
CPT/HCPCS: 62323; J1040

== ENCOUNTER → 2023-05-07 12:48 | Outpatient (POV) | payer MEDICARE, SELFPAY ==
--- OUTSIDE RECORDS SUMMARY | 2023-05-07 12:51 | XMS_ITS | Continuity of Care Document ---
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 Pump Operator Name Role Phone Elieser Hauser PA-C Unavailable Unavailable Allergies, Adverse Reactions, Alerts Substance Reaction Status Criticality Penicillins Active No Information PENICILLIN Active No Information morphine Active No Information Medications Medication Instructions Dosage Effective Dates (start - stop) Status Comments etodolac 500 mg tablet take 1 tablet by oral route 2 times every day with food 500 MG - Active Mobic 15 mg tablet take 1 tablet by oral route every day - Active potassium chloride ER 10 mEq capsule,extended release take 1 capsule by oral route every day with food 10 MEQ - Active Ziac 5 mg-6.25 mg tablet take 1 tablet by oral route every day - Active gabapentin 300 mg capsule take 1 capsule by oral route every 2 days 300 MG - Active Reglan 5 mg tablet take 1 tablet by oral route 4 times every day 30 minutes before meals and at bedtime 5 MG M
[2023-05-07 13:06] VITALS: BP 138/62; PULSE 58; RESP 18; O2SAT 99; BMI 33.9
--- NOTE | 2023-05-07 13:17 | EXP.PAIN.SOA ---
[facility] Pain Management SOAP Note Subjective:: Patient is a pleasant 73-year-old female who presents today for follow-up of lumbar epidural steroid injection L4-L5 on 04/22/2023. We are currently treating the patient for degenerative disc disease of lumbar spine with lumbar radiculopathy symptoms, lumbar spinal stenosis. Today she rates her pain a 6 out of 10. Patient denies any new trauma or injury. Patient states that this injection took about a week for it to kick in and that she only had some improvement and not like what she had previously. Patient's last lumbar epidural at L4-L5 back in November provided 70% relief lasting several months. Patient does state that she continues to have pain in her low back with radiating symptoms into her bilateral lower extremities. Patient does state that she has not 1 area along her lumbar spine that is sore with palpation. Patient does state the pain interferes with her ability perform activities of daily living such as cooking and cleaning. Patient does describe her pain as a throbbing, aching sensation with numbness and tingling. Patient has also previously gotten lumbar epidurals at L2-L3 with significant relief as well. Patient is currently managed with meloxicam 7.5 mg daily. Patient states that she has not had any side effects from this medication however she is asking if there is any increases that we can give on this medication. Patient does state that the cold weather does seem to be causing worsening pain. Her Jose Miguel has been reviewed and is appropriate. Injections: 12/10/2022?LESI L4-L5?70% 09/24/2022?LESI L2-L3?80% 05/07/2022?LESI L4-L5?50% 01/15/2022?LESI L2-L3?60 to 70% 11/16/2021?LESI L2-L3?80 to 90% 08/31/2021?LESI L4-L5 ?LESI L2-L3 9 10?21?LESI L2-L3 12/22/2020?LESI L5-S1 11/17/2020?LESI L5-S1 08/04/2020?LESI L2-L3 Review of Systems: General: No recent weight changes, no fever, no sleep disturbances Respiratory: No cough, no shortness of air, no recurring pulmonary infections Cardiovascular/peripheral vascular: No chest pain, no palpitations, no edema, no shortness of breath Gastrointestinal: No new onset incontinence, normal bowel movements reported Genitourinary: No new onset incontinence Musculoskeletal: Low back pain, bilateral leg pain Psychiatric: [Normal mood/affect] Neurological: [Denies weakness in extremities], [denies balance issues] Objective:: Physical Exam: General: Alert and oriented x3, no acute distress, pleasant and cooperative Lungs: Respirations even and unlabored, symmetrical chest expansion Eyes: PERRL Musculoskeletal: Flexion and extension of lumbar [spine] somewhat guarded secondary to pain, [antalgic gait noted] Neurological: Speech clear, no gross sensory deficit Assessment:: Degenerative disc disease of lumbar spine spine with lumbar radiculopathy symptoms, lumbar spinal stenosis Plan:: Patient continues to experience significant pain in her low back and legs with limited range of motion. I have discussed with the patient that she may benefit from repeat lumbar epidural at the higher level. Patient did have some point tenderness around this area. Risk and benefits were discussed with the patient and she would like to proceed forward with this plan of care. Patient has previously had significant relief at the L2-L3 level and was able to increase her activity with improved function. Patient is not on any blood thinners. I will also increase her meloxicam to 15 mg and provide a 2-week supply of this medication. I have counseled the patient to let us know if the increased dosage does provide improvement and she would like additional refills. Patient will be scheduled for an LESI L2-L3. Patient has been instructed to contact the clinic with any concerns before the next appointment. Dr. Partida has reviewed this note and agrees with this plan of care. This note was dictated using voice recognition software and make contain errors or omissions. [facility] Disclaimer
== END ==
PROVIDERS: PCP Family Medicine; Visit Provider Nurse Practitioner Family
DX: M51.16 Intervertebral disc disorders with radiculopathy, lumbar region (principal); M48.061 Spinal stenosis, lumbar region without neurogenic claudication
CPT/HCPCS: 99212; G0463

== ENCOUNTER 2023-05-23 09:37 | Day surgery (SDC) | payer MEDICARE, SELFPAY ==
--- OUTSIDE RECORDS SUMMARY | 2023-05-23 09:39 | XMS_ITS | Continuity of Care Document ---
Author Name Unknown Organization [facility] Address [address] [place] [address] Phone Care Team Providers Care Attorney General Name Role Phone Elieser Hauser PA-C Unavailable [...] before meals and at bedtime 5 MG - Active oxybutynin chloride 5 mg tablet take 1 tablet by oral route 2 times every day 5 MG - Active aspirin 81 mg chewable tablet chew 1 tablet by oral route every day 81 MG - Active Vitamin D3 25 mcg (1,000 unit) tablet take 1 tablet by oral route every day for 1 day 1 tablet - Active vitamin B12 1,000 mcg-folic acid 400 mcg sublingual lozenge Take 1 tablet per day - Active CRESTOR (unknown strength) take 1 tablet by oral route every day Not Available - Active ARIMIDEX (unknown strength) take 1 tablet by oral route every day Not Available - Active etodolac 500 mg tablet take 1 tablet by oral route 2 times every day with food 500 MG - No Longer Active Procedures Procedure Date Office/outpatient visit,est, mod 2021 Betamethasone acet 3mg & sod phosp 3mg M Dexamethasone sodium phos Drain/inject major jointor bursa 2021 X-ray exam of shoulder, complete 2021 Under Destruction by Neurolytic Agent (e g, Chemica Methylprednisolone 40 MG inj Inject nerve block, peripheral 22 Methylprednisolone 40 MG inj Office/outpatient visit,est, mod 2021 Office/outpatient visit,est, mod 2021 Inject nerve block, peripheral 22 Methylprednisolone 40 MG inj Office/outpatient visit,est, mod 2021 Drain/inject major jointor bursa 2020 Methylprednisolone 40 MG inj Office/outpatient visit,est, mod 2020 Office/outpatient visit,est, mod 2020 Betamethasone acet 3mg & sod phosp 3mg O Dexamethasone sodium phos Drain/inject major jointor bursa 2020 Office/outpatient visit,est, mod 2020 Office/outpatient visit,est, mod 2018 Njx interlaminar lmbr/sac Methylprednisolone 40 MG inj Njx interlaminar lmbr/sac Methylprednisolone 40 MG inj Office/outpatient visit,new, mod 2017 Njx interlaminar lmbr/sac Methylprednisolone 40 MG inj Office/outpatient visit,est, mod 2017 Office/outpatient visit,new, mod 2017 X-ray exam lwr spine, min 4 views Advance Directives Directive Yes / No Effective Date File Name No Information Encounters Encounter Description Practice Location Reason(s) For Visit Diagnoses Date Provider Providers Copied on Encounter [facility], [address] [place] [address], [facility], tel:[phone] Trinity Oblong No Information 2 Analisa Mon. [address] [place] [address], [address], [place]. tel:[phone] [facility], [address] [place] [address], [facility], [place] tel:[phone] Trinity Oblong No Information 2 Nita Figueredo. [address] [place] [address], [facility], [place]. tel:[phone] Referring Provider: Brian Montesinos, [address] [place] [address], [facility]. tel:[phone] Office/outpa tient visit,est, mod [facility], [address] [place] [address], [facility], [place] tel:[phone] Trinity Oblong General orthopedic (chief complaint) Impingement syndrome of right shoulder 2 Trent Torres. [address] [place] [address], [facility], [place]. tel:[phone] Referring Provider: Brian Montesinos, [address] [place] [address], [facility]. tel:[phone] [facility] [address], [address], [place] tel:[phone] Dionicio Mcintyre Pain in left kneeNeuralgia and neuritis, unspecified Jul- 2 Joi Ontiveros. [address] [place], [address], [place]. tel:[phone] Referring Provider: Bea Bowles, [address] [place] [address], [facility]. tel:[phone] [facility], [facility] [place], [address], [place] tel:[phone] Dionicio Mcintyre Neuralgia and neuritis, unspecified Jul- 2 Krbenedict Ontiveros. [address] [place], [address], [place]. tel:[phone] Referring Provider: Bea Bowles, [address] [place] [address], [address]. tel:[phone] Office/outpa tient visit,est, mod [facility], [facility] [place], [place], [facility], [place] tel:[phone] [facility] Other low back painNeuralgia and neuritis, unspecified Jun- 2 Nita Figueredo. [address] [place] [address], [address], [place]. tel:[phone] Referring Provider: Bea Nita Wilbur, [address] [place], [place] [address], [place], [address]. tel:[phone] Office/outpa tient visit,est, mod [facility], [facility] [place], [place], [facility], [place] tel:[phone] Dionicio Mcintyre Neuralgia and neuritis, unspecifiedOt her low back painPain in left knee Jun- 2 Joi Ontiveros. [address] [place], [address], [place]. tel:[phone] Referring Provider: Bea Bowles, [address] [place] [address], [address]. tel:[phone] Office/outpa tient visit,est, mod [facility], [facility] [place], [address], [place] tel:[phone] [facility] Other bursitis of knee, left kneeUnilatera l primary osteoarthriti s, left knee Jun- 2 Billflavio Figueredo. [address] [place] [address], [facility], . tel:[phone] Referring Provider: Brian Montesinos, [address] [place] [address], [facility]. tel:[phone] [facility], [address] [place] [address], [facility], tel:[phone] [facility] Other bursitis of knee, left knee 1 Jennifer Abbott. [address] [place] [address], [facility], . tel:[phone] Referring Provider: Bea Bowles, [address] [place] [address], [facility]. tel:[phone] Office/outpa tient visit,est, mod [facility] [address], [facility], tel:[phone] [facility] general orthopedic (chief complaint) Unilateral primary osteoarthriti s, left knee 1 Nita Figueredo. [address] [place] [address], [facility], . tel:[phone] Referring Provider: Bea Bowles, [address] [place] [address], [facility]. tel:[phone] Office/outpa tient visit,est, mod [facility] [address], [facility], tel:[phone] [facility] general orthopedic (chief complaint) Aftercare following joint replacement surgeryPresen ce of left artificial knee jointOther bursitis of knee, left knee 1 Nita Figueredo. [address] [place] [address], [facility], [place]. tel:[phone] Referring Provider: Brian Montesinos, [address] [place] [address], [facility]. tel:[phone] Office/outpa tient visit,est, mod [facility] [address], [address], [place] tel:[phone] [facility] general orthopedic (chief complaint) No Information 1 Trent Brian. [address] [place], [address], [place]. tel:[phone] Office/outpa tient visit,est, mod [facility], [facility] [place], [address], [place] tel:[phone] [facility] No Information 9 Roberto Nevarez. [address] [place], [address], [place]. tel:[phone] Referring Provider: Weston Tamez, [address] [place], [address]. tel:[phone] [facility], [facility] [place], [address], [place] tel:[phone] [facility] No Information 9 Joi Ontiveros. [address] [place], [address], [place]. tel:[phone] [facility], [address] [place] [address], [address], [place] tel:[phone] [facility] No Information 9 Joi Ontiveros. [address] [place], [address], [place]. tel:[phone] Office/outpa tient visit,new, mod [facility], [facility] [place], [address], [place] tel:[phone] [facility] Radiculopathy , lumbar region 8 Yannick Dobson. [address] [place] [address], [id number], [place]. tel:[phone] Referring Provider: Scar Rodriguez, [address] [place] [address], [address]. tel:[phone] [facility], [facility] [place], [place], [facility], tel:[phone] [facility] No Information 8 Joi Ontiveros. [address] [place], [place], [facility], . tel:[phone] Office/outpa tient visit,est, mod [facility], [address] [place], [place], [facility], tel:[phone] [facility] No Information 8 Jennifer Abbott. [address] [place], [place], [facility], . tel:[phone] Office/outpa tient visit,[facility], [facility], [address] [place], [place], [facility], tel:[phone] [facility] No Information Jennifer Abbott. [address] [place], [place], [facility], . tel:[phone] Family History Family Member Type Diagnosis Age At Onset Mother Problem (finding) Hypertension Father Problem (finding) Congenital heart diseas e Father Problem (finding) Hypertension Father Problem (finding) Thyroid disorder Father Problem (finding) Hyperlipidemia Mother Problem (finding) Cancer Father Problem (finding) Stroke Sister Problem (finding) Cancer Sister Problem (finding) Hypertension Payers Payer name Insurance type Covered republican ID Authoriza tion(s) Medicare [facility] [id number] [facility] [id number] Social History Type Description Quantity Date Captured Comments Sex Female Smoking Status No Information Chief Complaint And Reason For Visit No Information Reason For Referral Reason For Referral No Information Plan Of Treatment Date Type Action Status Future Order: Radiology Order MR I Lumbar Spine WO Contrast (38623), Ordered on: Ordered History Of Present Illness Encounter Date Complaint History Of Prese nt Illness General orthopedic New problem, right shoulder, has soreness anterior shoulder and limited range of motion over the last two weeks, no known injury. Has trouble sleeping on it at night. general orthopedic FU Lt knee, s aw Dr. Tamez on 07/16/21 and underwent genicular nerve block. Relates it did not give her any relief. Supposed to contact Joi's office this week with an update. knee general orthopedic FU Lt knee, h ad diagnostic US with Jennifer on 05/07/21. Still having a lot of pain and did not hear the results of the US. general orthopedic follow up lef t knee general orthopedic FU Lt knee, h as been seeing pain management doctor. Had an FUNMI in her back which helped her pain. Gabapentin does not seem to be helping. general orthopedic follow up lef t knee. had mri Functional Status Date Functional Assessmen t No Information Instructions Date Instruction Additional Infor mation No Information Assessments Type Assessment Date No Information Patient Care Teams Name Effective Dates (start - stop) Status Members No Information
[2023-05-23 09:49] VITALS: BP 168/70; PULSE 66; RESP 16; TEMP 36.3; O2SAT 98; BMI 32.9
[2023-05-23 09:55] VITALS: BP 164/92; PULSE 73; RESP 18; O2SAT 99
[2023-05-23] MEDS: methylPREDNISolone ACETATE 80MG/ML VIAL 80 MG (09:55)
[2023-05-23 09:56] VITALS: BP 164/92; PULSE 70; RESP 18; O2SAT 99
--- NOTE | 2023-05-23 09:59 | EXP.PAIN.PRO ---
Procedure Date: 05/23/23 Time: 09:50 Anesthesiologist:: Balbir Knott CRNA Complications:: None Pre-procedure Diagnosis:: Degenerative disc lumbar spine multilevels. Lumbar radiculopathy. Lumbar spondylosis. Multilevel lumbar facet arthropathy. Post-procedure Diagnosis:: Same. Indications for Procedure:: Patient is a very pleasant 73-year-old female comes our clinic today for L2-3 lumbar epidural steroid injection. Patient has had moderate to significant improvement terms of her overall low back pain as well as bilateral hip and leg radicular symptoms with previous injections of the lumbar spine. Patient rates her pain 7/10. Procedure Details:: Procedure: Lumbar epidural steroid injection under fluoroscopy Informed consent was obtained and the risks and benefits of the procedure were explained to the patient. The patient was taken to the procedure room and noninvasive monitors placed, including noninvasive blood pressure cuff and pulse oximeter. The back was viewed using C-arm Fluoroscopy and prepped using Chloraprep as a cleansing solution and the L3-4 interspace was palpated. Skin and subcutaneous tissues were anesthetized using lidocaine 1.5% and a 25-gauge needle. After this, an 18-gauge Touhy epidural needle was placed into the L3-4 interspace and advanced using fluoroscopic guidance and loss of resistance to air until the epidural space was encountered. After confirmation of needle placement in the epidural space, with dye, a solution containing normal saline, 3 mL and Depo-Medrol 80 mg were incrementally injected into the lumbar epidural space. The patient tolerated the procedure well with no complications. The patient was observed in the Pain Clinic and then discharged home neurologically intact. Plan and Disposition:: Patient was discharged without incident.
[2023-05-23 10:00] VITALS: BP 99/63; PULSE 63; RESP 16; O2SAT 98
--- NOTE | 2023-05-23 13:13 | PC.NURSE ---
called in Rx for Meloxicam 15mg po daily with 2 refills to [facility] per provider order.
== END 2023-05-23 10:00 | disposition home or self-care (01) ==
PROVIDERS: PCP Family Medicine; Visit Provider Nurse Anesthetist, Certified Registered
DX: M51.16 Intervertebral disc disorders with radiculopathy, lumbar region (principal); M47.26 Other spondylosis with radiculopathy, lumbar region
CPT/HCPCS: 62323; J1040

== ENCOUNTER → 2023-06-04 11:23 | Outpatient (POV) | payer MEDICARE, SELFPAY ==
--- OUTSIDE RECORDS SUMMARY | 2023-06-04 11:25 | XMS_ITS | Continuity of Care Document ---
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 [address] [place] [address], [address], [place]. tel:[phone] [facility] [place], [address] [place] [address], [facility], [place] tel:[phone] [place] No Information 2 Nita Figueredo. [address] [place] [address], [facility], [place]. tel:[phone] Referring Provider: Brian Montesinos, [address] [place] [address], [facility]. tel:[phone] Office/outpa tient visit,est, mod [facility], [address] [place] [address], [facility], [place] tel:[phone] [place] General orthopedic (chief complaint) Impingement syndrome of right shoulder 2 Trent Torres. [address] [place] [address], [facility], [place]. tel:[phone] Referring Provider: Brian Montesinos, [address] [place] [address], [facility]. tel:[phone] [facility] [address], [address], [place] tel:[phone] Dionicio Mcintyre Pain in left kneeNeuralgia and neuritis, unspecified Jul- 2 Joi Ontiveros. [address] [place], [address], [place]. tel:[phone] Referring Provider: Bea Bowles, [address] [place] [address], [facility]. tel:[phone] [facility] [place], [facility][note 2] [place], [address], [place] tel:[phone] Dionicio Mcintyre Neuralgia and neuritis, unspecified Jul- 2 Krbenedict Ontiveros. [address] [place], [address], [place]. tel:[phone] Referring Provider: Bea Bowles, [address] [place] [address], [address]. tel:[phone] Office/outpa tient visit,est, mod [facility], [facility][note 2] [address] [place], [facility], [place] tel:[phone] [facility] general [facility]opedic (chief complaint) Other low back painNeuralgia and neuritis, unspecified Jun- 2 Nita Figueredo. [address] [place] [address], [address], [place]. tel:[phone] Referring Provider: Bea Nita Wilbur, [address] [place], [place] [address], [address]. tel:[phone] Office/outpa tient visit,est, mod [facility], [facility][note 2] [place], [facility], [place] tel:[phone] Dionicio Mcintyre Neuralgia and neuritis, unspecifiedOt her low back painPain in left knee Jun- 2 Joi Ontiveros. [address] [place], [address], [place]. tel:[phone] Referring Provider: Bea Bowles, [address] [place] [address], [address]. tel:[phone] Office/outpa tient visit,est, mod [facility], [facility][note 2] [place], [address], [place] tel:[phone] [facility] general [facility]opedic (chief complaint) Other bursitis of knee, left kneeUnilatera l primary osteoarthriti s, left knee Jun- 2 Billflavio Figueredo. [address] [place] [address], [facility], . tel:[phone] Referring Provider: Brian Montesinos, [address] [place] [address], [facility]. tel:[phone] [facility], [address] [place] [address], [facility], tel:[phone] [facility] Other bursitis of knee, left knee 1 Jennifer Abbott. [address] [place] [address], [facility], . tel:[phone] Referring Provider: Bea Bowles, [address] [place] [address], [facility]. tel:[phone] Office/outpa tient visit,est, mod [facility] [address], [facility], tel:[phone] [facility] general orthopedic (chief complaint) Unilateral primary osteoarthriti s, left knee 1 Nita Figueredo. [address] [place] [address], [facility], . tel:[phone] Referring Provider: Bea Bowles, [address] [place] [address], [facility]. tel:[phone] Office/outpa tient visit,est, mod [facility] [address], [facility], tel:[phone] [facility] general orthopedic (chief complaint) Aftercare following joint replacement surgeryPresen ce of left artificial knee jointOther bursitis of knee, left knee 1 Nita Figueredo. [address] [place] [address], [facility], [place]. tel:[phone] Referring Provider: Brian Montesinos, [address] [place] [address], [facility]. tel:[phone] Office/outpa tient visit,est, mod [facility] [address], [address], [place] tel:[phone] [facility] general orthopedic (chief complaint) No Information 1 Trent Brian. [address] [place], [address], [place]. tel:[phone] Office/outpa tient visit,est, mod [facility], [facility][note 2] [place], [address], [place] tel:[phone] [facility] No Information 9 Roberto Nevarez. [address] [place], [address], [place]. tel:[phone] Referring Provider: Weston Tamez, [address] [place], [address]. tel:[phone] [facility], [facility][note 2] [place], [address], [place] tel:[phone] [facility] No Information 9 Joi Ontiveros. [address] [place], [address], [place]. tel:[phone] [facility], [address] [place] [address], [address], [place] tel:[phone] [facility] No Information 9 Joi Ontiveros. [address] [place], [address], [place]. tel:[phone] Office/outpa tient visit,new, mod [facility], [facility][note 2] [place], [address], [place] tel:[phone] [facility] Radiculopathy , lumbar region 8 Yannick Dobson. [address] [place] [address], [id number], [place]. tel:[phone] Referring Provider: Scar Rodriguez, [address] [place] [address], [address]. tel:[phone] [facility], [facility][note 2] [place], [facility], tel:[phone] [facility] No Information 8 Joi Ontiveros. [address] [place], [facility], . tel:[phone] Office/outpa tient visit,est, mod [facility], [address] [place], [place], [facility], tel:[phone] [facility] No Information 8 Jennifer Abbott. [address] [place], [place], [facility], . tel:[phone] Office/outpa tient visit,[facility], [facility], [address] [place], [place], [facility], tel:[phone] [facility] No Information Jennifer Abbott. [address] [place], [place], [facility], . tel:[phone] Family History Family Member Type Diagnosis Age At Onset Mother Problem (finding) Hypertension Father Problem (finding) Congenital heart diseas e Father Problem (finding) Hypertension Father Problem (finding) Thyroid disorder Father Problem (finding) Hyperlipidemia Mother Problem (finding) Cancer Father Problem (finding) Stroke Sister Problem (finding) Cancer Sister Problem (finding) Hypertension Payers Payer name Insurance type Covered libertarian ID Authoriza tion(s) Medicare [facility] [id number] [facility] [id number] Social History Type Description Quantity Date Captured Comments Sex Female Smoking Status No Information Chief Complaint And Reason For Visit No Information Reason For Referral Reason For Referral No Information Plan Of Treatment Date Type Action Status Future Order: Radiology Order MR I Lumbar Spine WO Contrast (43849), Ordered on: Ordered History Of Present Illness [...]
--- NOTE | 2023-06-04 11:41 | EXP.PAIN.SOA ---
[facility] Pain Management SOAP Note Subjective:: Patient is a pleasant 73-year-old female who presents today for follow-up of lumbar epidural steroid injection L3-L4 on 05/23/2023. We are currently treating the patient for degenerative disc disease of lumbar spine with lumbar radiculopathy symptoms, lumbar spinal stenosis. Today she rates her pain a 4 out of 10. Patient denies any new trauma or injury. Patient does state that she has had some improvement following this injection. She states on good days it is more than 50% and that frequently takes the pain to where it is very minimal. She states she is able to increase her activity during those times. She does state like days like yesterday she was taking down the rest of her [place] decorations and with the cold rainy weather she was having more pain. She does states she does feel overall more functional following this injection. She is currently managed with meloxicam 15 mg daily. Patient denies any side effects from these medications her Jose Miguel has been reviewed and is appropriate. Injections: 05/23/2023 LESI L3-L4 04/22/2023 LESI L4-5 12/10/2022?LESI L4-L5?70% 09/24/2022?LESI L2-L3?80% 05/07/2022?LESI L4-L5?50% 01/15/2022?LESI L2-L3?60 to 70% 11/16/2021?LESI L2-L3?80 to 90% 08/31/2021?LESI L4-L5 05/25-2020?LESI L2-L3 9 10?21?LESI L2-L3 12/22/2020?LESI L5-S1 11/17/2020?LESI L5-S1 08/04/2020?LESI L2-L3 Review of Systems: General: No recent weight changes, no fever, no sleep disturbances Respiratory: No cough, no shortness of air, no recurring pulmonary infections Cardiovascular/peripheral vascular: No chest pain, no palpitations, no edema, no shortness of breath Gastrointestinal: No new onset incontinence, normal bowel movements reported Genitourinary: No new onset incontinence Musculoskeletal: Low back pain, bilateral leg pain Psychiatric: [Normal mood/affect] Neurological: [Denies weakness in extremities], [denies balance issues] Objective:: Physical Exam: General: Alert and oriented x3, no acute distress, pleasant and cooperative Lungs: Respirations even and unlabored, symmetrical chest expansion Eyes: PERRL Musculoskeletal: Flexion and extension of lumbar [spine] somewhat guarded secondary to pain, [antalgic gait noted] Neurological: Speech clear, no gross sensory deficit Assessment:: Degenerative disc disease of lumbar spine with lumbar radiculopathy symptoms, lumbar spinal stenosis Plan:: I have discussed with the patient due to not having any updated lumbar imaging for several years that I do recommend that we order some. Patient is agreeable with this plan of care. I will order x-ray imaging of her lumbar spine at today's visit. We will plan on ordering advanced imaging at a later date. I will refill the patient's meloxicam 15 mg daily and provide a 1 month supply of this medication. Patient will return to clinic in 1 month for reevaluation of symptoms and plan of care. Patient has been instructed to contact the clinic with any concerns before the next appointment. Dr. Partida has reviewed this note and agrees with this plan of care. This note was dictated using voice recognition software and make contain errors or omissions. [facility] Disclaimer: The information contained in this section may have been updated after the patient was seen, as this information can be updated by other users. Medical History Arthritis Hyperlipidemia Hypertension Surgical History History of bilateral knee replacement Family History Other No significant family history Social History Smoking Status: Never smoker second hand exposure: No alcohol intake: never substance use type: denies use current occupational status: retired Travel in the last 8 weeks: None household members: spouse housing: house current occupation: [employer] current occupational exposures/hazards: No caffeine: Yes
[2023-06-04 12:08] VITALS: BP 153/64; PULSE 67; RESP 18; O2SAT 95; BMI 33.9
== END | disposition home or self-care (01) ==
PROVIDERS: PCP Family Medicine; Visit Provider Nurse Practitioner Family
DX: M51.16 Intervertebral disc disorders with radiculopathy, lumbar region (principal); M48.061 Spinal stenosis, lumbar region without neurogenic claudication
CPT/HCPCS: 99212; G0463

== ENCOUNTER 2023-06-04 12:06 | Outpatient (CLI) | payer MEDICARE, SELFPAY ==
--- OUTSIDE RECORDS SUMMARY | 2023-06-04 12:08 | XMS_ITS | Continuity of Care Document ---
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 [address] [place] [address], [address], [place]. tel:[phone] [facility], [address] [place] [address], [facility], [place] tel:[phone] [place] No Information 2 Nita Figueredo. [address] [place] [address], [facility], [place]. tel:[phone] Referring Provider: Brian Montesinos, [address] [place] [address], [facility]. tel:[phone] Office/outpa tient visit,est, mod [facility], [address] [place] [address], [facility], [place] tel:[phone] [place] General orthopedic (chief complaint) Impingement syndrome of right shoulder 2 Trent Torres. [address] [place] [address], [facility], [place]. tel:[phone] Referring Provider: Brian Montesinos, [address] [place] [address], [facility]. tel:[phone] [facility] [address], [address], [place] tel:[phone] Dionicio Mcintyre Pain in left kneeNeuralgia and neuritis, unspecified Jul- 2 Joi Ontiveros. [address] [place], [address], [place]. tel:[phone] Referring Provider: Bea Bowles, [address] [place] [address], [facility]. tel:[phone] [facility], [facility] [place], [address], [place] tel:[phone] Dionicio Mcintyre Neuralgia and neuritis, unspecified Jul- 2 Krbenedict Ontiveros. [address] [place], [address], [place]. tel:[phone] Referring Provider: Bea oBwles, [address] [place] [address], [address]. tel:[phone] Office/outpa tient visit,est, mod [facility], [facility] [place], [facility], [place] tel:[phone] [place] [facility] general orthopedic (chief complaint) Other low back painNeuralgia and neuritis, unspecified Jun- 2 Nita Figueredo. [address] [place] [address], [address], [place]. tel:[phone] Referring Provider: Bea Nita Wilbur, [address] [place], [place] [address], [place], [address]. tel:[phone] Office/outpa tient visit,est, mod [facility], [facility] [place], [facility], [place] tel:[phone] Dionicio Mcintyre Neuralgia and neuritis, unspecifiedOt her low back painPain in left knee Jun- 2 Joi Ontiveros. [address] [place], [address], [place]. tel:[phone] Referring Provider: Bea Bowles, [address] [place] [address], [address]. tel:[phone] Office/outpa tient visit,est, mod [facility], [place], [address], [place] tel:[phone] [place] [facility] general orthopedic (chief complaint) Other bursitis of knee, left kneeUnilatera l primary osteoarthriti s, left knee Jun- 2 Billflavio Figueredo. [address] [place] [address], [facility], . tel:[phone] Referring Provider: Brian Montesinos, [address] [place] [address], [facility]. tel:[phone] [facility], [address] [place] [address], [facility], tel:[phone] [facility] Other bursitis of knee, left knee 1 Jennifer Abbott. [address] [place] [address], [facility], . tel:[phone] Referring Provider: Bea Bowles, [address] [place] [address], [facility]. tel:[phone] Office/outpa tient visit,est, mod [facility] [address], [facility], tel:[phone] [facility] general orthopedic (chief complaint) Unilateral primary osteoarthriti s, left knee 1 Nita Figueredo. [address] [place] [address], [facility], . tel:[phone] Referring Provider: Bea Bowles, [address] [place] [address], [facility]. tel:[phone] Office/outpa tient visit,est, mod [facility] [address], [facility], tel:[phone] [facility] general orthopedic (chief complaint) Aftercare following joint replacement surgeryPresen ce of left artificial knee jointOther bursitis of knee, left knee 1 Nita Figueredo. [address] [place] [address], [facility], [place]. tel:[phone] Referring Provider: Brian Montesinos, [address] [place] [address], [facility]. tel:[phone] Office/outpa tient visit,est, mod [facility] [address], [address], [place] tel:[phone] [facility] general orthopedic (chief complaint) No Information 1 Trent Brian. [address] [place], [address], [place]. tel:[phone] Office/outpa tient visit,est, mod [facility] [place], [place], [address], [place] tel:[phone] [facility] No Information 9 Roberto Nevarez. [address] [place], [address], [place]. tel:[phone] Referring Provider: Weston Tamez, [address] [place], [address]. tel:[phone] [facility] [place], [place], [address], [place] tel:[phone] [facility] No Information 9 Joi Ontiveros. [address] [place], [address], [place]. tel:[phone] [facility], [address] [place] [address], [address], [place] tel:[phone] [facility] No Information 9 Joi Ontiveros. [address] [place], [address], [place]. tel:[phone] Office/outpa tient visit,new, mod [facility], [place], [address], [place] tel:[phone] [facility] Radiculopathy , lumbar region 8 Yannick Dobson. [address] [place] [address], [id number], [place]. tel:[phone] Referring Provider: Scar Rodriguez, [address] [place] [address], [address]. tel:[phone] [facility], [facility] [place], [facility], tel:[phone] [facility] No Information 8 Joi Ontiveros. [address] [place], [place], [facility], . tel:[phone] Office/outpa tient visit,est, mod [facility], [address] [place], [place], [facility], tel:[phone] [facility] No Information 8 Jennifer Abbott. [address] [place], [place], [facility], . tel:[phone] Office/outpa tient visit,[facility], [address] [place], [place], [facility], tel:[phone] [facility] No Information Jennifer Abbott. [address] [place], [place], [facility], . tel:[phone] Family History Family Member Type Diagnosis Age At Onset Mother Problem (finding) Hypertension Father Problem (finding) Congenital heart diseas e Father Problem (finding) Hypertension Father Problem (finding) Thyroid disorder Father Problem (finding) Hyperlipidemia Mother Problem (finding) Cancer Father Problem (finding) Stroke Sister Problem (finding) Cancer Sister Problem (finding) Hypertension Payers Payer name Insurance type Covered libertarian ID Authoriza tion(s) Medicare [facility] [id number] [facility] [id number] Social History Type Description Quantity Date Captured Comments Sex Female Smoking Status No Information Chief Complaint And Reason For Visit No Information Reason For Referral Reason For Referral No Information Plan Of Treatment Date Type Action Status Future Order: Radiology Order MR I Lumbar Spine WO Contrast ([id number]), Ordered on: Ordered History Of Present Illness [...]
--- NOTE | 2023-06-04 12:13 | XR_ITS ---
FINAL REPORT CLINICAL HISTORY: low back pain COMPARISON: None FINDINGS: 5 views of the lumbar spine were obtained. There is no evidence of fracture or dislocation. There is moderate and severe degenerative change present in the lumbar spine. There is mild anterolisthesis of L5 on S1. Lower lumbar facet osteoarthropathy is present as well as a levoscoliosis of the lumbar spine. Mild vascular calcifications are noted. There are surgical clips identified in the right upper quadrant of the abdomen and right hip arthroplasty has been performed. No paraspinous soft tissue abnormalities identified. IMPRESSION: No acute bony abnormality. Degenerative change as described above. Reviewed, Interpreted and Dictated by Felipe Patterson III, MD Transcribed by Ana Woods Authenticated and [facility]
== END 2023-06-04 23:59 ==
PROVIDERS: PCP Family Medicine; Visit Provider Nurse Practitioner Family
DX: M54.50 Low back pain, unspecified (principal)
CPT/HCPCS: 72110; 99212; G0463

== ENCOUNTER → 2023-07-03 11:09 | Outpatient (POV) | payer MEDICARE, SELFPAY ==
--- OUTSIDE RECORDS SUMMARY | 2023-07-03 11:12 | XMS_ITS | Continuity of Care Document ---
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 [address] [place] [address], [address], [place]. tel:[phone] [facility] [place], [address] [place] [address], [facility], [place] tel:[phone] [facility] [place] No Information 2 Nita Figueredo. [address] [place] [address], [facility], [place]. tel:[phone] Referring Provider: Brian Montesinos, [address] [place] [address], [facility]. tel:[phone] Office/outpa tient visit,est, mod [facility], [address] [place] [address], [facility], [place] tel:[phone] [facility] [place] General orthopedic (chief complaint) Impingement syndrome of right shoulder 2 Trent Torres. [address] [place] [address], [facility], [place]. tel:[phone] Referring Provider: Brian Montesinos, [address] [place] [address], [facility]. tel:[phone] [facility] [address], [address], [place] tel:[phone] Dionicio Mcintyre Pain in left kneeNeuralgia and neuritis, unspecified Jul- 2 Joi Ontiveros. [address] [place], [address], [place]. tel:[phone] Referring Provider: Bea Bowles, [address] [place] [address], [facility]. tel:[phone] [facility], [facility] [place], [address], [place] tel:[phone] Dionicio Mcintyre Neuralgia and neuritis, unspecified Jul- 2 Krbenedict Ontiveros. [address] [place], [address], [place]. tel:[phone] Referring Provider: Bea Bowles, [address] [place] [address], [address]. tel:[phone] Office/outpa tient visit,est, mod [facility] [place], [facility] [place], [facility], [place] tel:[phone] [facility]) Other low back painNeuralgia and neuritis, unspecified Jun- 2 Nita Figueredo. [address] [place] [address], [address], [place]. tel:[phone] Referring Provider: Bea Nita Wilbur, [address] [place], [place] [address], [address]. tel:[phone] Office/outpa tient visit,est, mod [facility] [place], [facility] [place], [facility], [place] tel:[phone] Dionicio Mcintyre Neuralgia and neuritis, unspecifiedOt her low back painPain in left knee Jun- 2 Joi Ontiveros. [address] [place], [address], [place]. tel:[phone] Referring Provider: Bea Bowles, [address] [place] [address], [address]. tel:[phone] Office/outpa tient visit,est, mod [facility], [facility] [place], [address], [place] tel:[phone] [facility]) Other bursitis of knee, left kneeUnilatera l primary osteoarthriti s, left knee Jun- 2 Billflavio Figueredo. [address] [place] [address], [facility], . tel:[phone] Referring Provider: Brian Montesinos, [address] [place] [address], [facility]. tel:[phone] [facility], [address] [place] [address], [facility], tel:[phone] [facility] Other bursitis of knee, left knee 1 Jennifer Abbott. [address] [place] [address], [facility], . tel:[phone] Referring Provider: Bea Bowles, [address] [place] [address], [facility]. tel:[phone] Office/outpa tient visit,est, mod [facility] [address], [facility], tel:[phone] [facility] general orthopedic (chief complaint) Unilateral primary osteoarthriti s, left knee 1 Nita Figueredo. [address] [place] [address], [facility], . tel:[phone] Referring Provider: Bea Bowles, [address] [place] [address], [facility]. tel:[phone] Office/outpa tient visit,est, mod [facility] [address], [facility], tel:[phone] [facility] general orthopedic (chief complaint) Aftercare following joint replacement surgeryPresen ce of left artificial knee jointOther bursitis of knee, left knee 1 Nita Figueredo. [address] [place] [address], [facility], [place]. tel:[phone] Referring Provider: Brian Montesinos, [address] [place] [address], [facility]. tel:[phone] Office/outpa tient visit,est, mod [facility] [address], [address], [place] tel:[phone] [facility] general orthopedic (chief complaint) No Information 1 Trent Brian. [address] [place], [address], [place]. tel:[phone] Office/outpa tient visit,est, mod [facility], [facility] [place], [address], [place] tel:[phone] [facility] No Information 9 Roberto Nevarez. [address] [place], [address], [place]. tel:[phone] Referring Provider: Weston Tamez, [address] [place], [address]. tel:[phone] [facility], [facility] [place], [address], [place] tel:[phone] [facility] No Information 9 Joi Ontiveros. [address] [place], [address], [place]. tel:[phone] [facility], [address] [place] [address], [address], [place] tel:[phone] [facility] No Information 9 Joi Ontiveros. [address] [place], [address], [place]. tel:[phone] Office/outpa tient visit,new, mod [facility], [facility] [place], [address], [place] tel:[phone] [facility] Radiculopathy , lumbar region 8 Yannick Dobson. [address] [place] [address], [id number], [place]. tel:[phone] Referring Provider: Scar Rodriguez, [address] [place] [address], [address]. tel:[phone] [facility], [facility] [place], [facility], tel:[phone] [facility] No Information 8 Joi Ontiveros. [address] [place], [facility], . tel:[phone] Office/outpa tient visit,est, mod [facility], [address] [place], [place], [facility], tel:[phone] [facility] No Information 8 Jennifer Abbott. [address] [place], [place], [facility], . tel:[phone] Office/outpa tient visit,[facility], [facility], [address] [place], [place], [facility], tel:[phone] [facility] No Information Jennifer Abbott. [address] [place], [place], [facility], . tel:[phone] Family History Family Member Type Diagnosis Age At Onset Mother Problem (finding) Hypertension Father Problem (finding) Congenital heart diseas e Father Problem (finding) Hypertension Father Problem (finding) Thyroid disorder Father Problem (finding) Hyperlipidemia Mother Problem (finding) Cancer Father Problem (finding) Stroke Sister Problem (finding) Cancer Sister Problem (finding) Hypertension Payers Payer name Insurance type Covered alliance party ID Authoriza tion(s) Medicare [facility] [id number] [facility] [id number] Social History Type Description Quantity Date Captured Comments Sex Female Smoking Status No Information Chief Complaint And Reason For Visit No Information Reason For Referral Reason For Referral No Information Plan Of Treatment Date Type Action Status Future Order: Radiology Order MR I Lumbar Spine WO Contrast (21018), Ordered on: Ordered History Of Present Illness [...]
--- NOTE | 2023-07-03 12:00 | A.OFFVIS_ITS ---
[facility] Pain Management SOAP Note Subjective:: Patient is a pleasant 73-year-old female who presents today for follow-up. We are currently treating the patient for degenerative disc disease of lumbar spine with lumbar radiculopathy symptoms, lumbar spinal stenosis. Today she rates her pain a 4 out of 10 however she states her pain will increase as she increases her activity. Patient states that just recently she started to experience neck pain that did radiate down her entire right arm. Patient stated this was an aching sensation with numbness and tingling into her arm and fingers. Patient does state that she was concerned that it was something to do with her aorta since she has had previous issues. She states that she did end up going to [facility] for evaluation and they did do CT with contrast as well as ultrasound and EKGs. Patient states that they did end up showing a pinched nerve in her cervical spine. Patient was prescribed Flexeril 5 mg 3 times daily, prednisone 20 mg 3 times a day and naproxen 500 mg twice daily. Patient states that she did stop taking her meloxicam 15 mg daily. Patient states that she continues to have pain with radiating symptoms to this area. She does state the pain interferes with her ability perform activities of daily living such as cooking and cleaning. Patient does also states she continues to have pain in her low back however her neck symptoms are worse currently. Patient is prescribed compounded cream and states this does help. Her Jose Miguel has been reviewed and is appropriate. Review of Systems: General: No recent weight changes, no fever, no sleep disturbances Respiratory: No cough, no shortness of air, no recurring pulmonary infections Cardiovascular/peripheral vascular: No chest pain, no palpitations, no edema, no shortness of breath Gastrointestinal: No new onset incontinence, normal bowel movements reported Genitourinary: No new onset incontinence Musculoskeletal: Neck pain, right arm pain/numbness, right finger numbness Psychiatric: [Normal mood/affect] Neurological: [Denies weakness in extremities], [denies balance issues] Objective:: Physical Exam: General: Alert and oriented x3, no acute distress, pleasant and cooperative Lungs: Respirations even and unlabored, symmetrical chest expansion Eyes: PERRL Musculoskeletal: Flexion and extension of cervical [spine] somewhat guarded secondary to pain, [antalgic gait noted] positive Spurling's test Neurological: Speech clear, no gross sensory deficit Assessment:: 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 Patient did have limited range of motion of her cervical spine along with a positive Spurling's test. I have discussed with the patient that she may benefit from a right cervical epidural steroid injection. Risk and benefits were discussed with the patient and she would like to proceed forward with this plan of care. Patient is not on any blood thinners. We will contact [facility] to get a copy of her cervical imaging. Patient will be scheduled for a right cervical epidural steroid injection C5-C6 and C6-C7 under fluoroscopy. Patient has been instructed to contact the clinic with any concerns before the next appointment. Dr. Partida has reviewed this note and agrees with this plan of care. This note was dictated using voice recognition software and make contain errors or omissions. [facility] Disclaimer: The information contained in this section may have been updated after the patient was seen, as this information can be updated by other users. Medical History Arthritis Hyperlipidemia Hypertension Surgical History History of bilateral knee replacement Family History Other No significant family history Social History Smoking Status: Never smoker second hand exposure: No alcohol intake: never substance use type: denies use current occupational status: retired Travel in the last 8 weeks: None household members: spouse housing: house current occupation: [employer] current occupational exposures/hazards: No caffeine: Yes
[2023-07-03 12:17] VITALS: BP 181/79; PULSE 55; RESP 18; O2SAT 98; BMI 33.9
== END ==
PROVIDERS: PCP Family Medicine; Visit Provider Nurse Practitioner Family
DX: M50.122 Cervical disc disorder at C5-C6 level with radiculopathy (principal); M50.123 Cervical disc disorder at C6-C7 level with radiculopathy; M51.16 Intervertebral disc disorders with radiculopathy, lumbar region; M48.061 Spinal stenosis, lumbar region without neurogenic claudication
CPT/HCPCS: 99212; G0463

== ENCOUNTER 2023-07-15 09:59 | Day surgery (SDC) | payer MEDICARE, SELFPAY ==
--- OUTSIDE RECORDS SUMMARY | 2023-07-15 10:02 | XMS_ITS | Continuity of Care Document ---
Author Name Unknown Organization [facility] Address [address] [place] [address] Phone Care Team Providers Care Clinical Leader Name Role Phone Elieser Hauser PA-C Unavailable [...] Providers Copied on Encounter [facility] [place], [address] [place] [address], [facility], tel:[phone] [place] No Information 2 Analisa Mon. [address] [place] [address], [address], [place]. tel:[phone] [facility] [place], [address] [place] [address], [facility], [place] tel:[phone] [place] No Information 2 Nita Figueredo. [address] [place] [address], [facility], [place]. tel:[phone] Referring Provider: Brian Montesinos, [address] [place] [address], [facility]. tel:[phone] Office/outpa tient visit,est, mod [facility], [address] [place] [address], [facility], [place] tel:[phone] [place] General orthopedic (chief complaint) Impingement syndrome of right shoulder 2 Trent Torres. [address] [place] [address], [facility], [place]. tel:[phone] Referring Provider: Brian Montesinos, [address] [place] [address], [facility]. tel:[phone] [facility] [address], [address], [place] tel:[phone] Dionicio Mcintyre Pain in left kneeNeuralgia and neuritis, unspecified Jul- 2 Joi Ontiveros. [address] [place], [address], [place]. tel:[phone] Referring Provider: Bea Bowles, [address] [place] [address], [facility]. tel:[phone] [facility] [place], [facility] [place], [address], [place] tel:[phone] Dionicio Mcintyre Neuralgia and neuritis, unspecified Jul- 2 Krbenedict Ontiveros. [address] [place], [address], [place]. tel:[phone] Referring Provider: Bea Bowles, [address] [place] [address], [address]. tel:[phone] Office/outpa tient visit,est, mod [facility], [facility] [place], [facility], [place] tel:[phone] [facility] (chief complaint) Other low back painNeuralgia and neuritis, unspecified Jun- 2 Nita Figueredo. [address] [place] [address], [address], [place]. tel:[phone] Referring Provider: Bea Nita Wilbur, [address] [place], [place] [address], [place], [address]. tel:[phone] Office/outpa tient visit,est, mod [facility] [place], [facility] [address] [place], [place], [facility], [place] tel:[phone] Dionicio Mcintyre Neuralgia and neuritis, unspecifiedOt her low back painPain in left knee Jun- 2 Joi Ontiveros. [address] [place], [address], [place]. tel:[phone] Referring Provider: Bea Bowles, [address] [place] [address], [address]. tel:[phone] Office/outpa tient visit,est, mod [facility] [place], [facility] [place], [address], [place] tel:[phone] [facility] (chief complaint) Other bursitis of knee, left kneeUnilatera l primary osteoarthriti s, left knee Jun- 2 Billflavio Figueredo. [address] [place] [address], [facility], . tel:[phone] Referring Provider: Brian Montesinos, [address] [place] [address], [facility]. tel:[phone] [facility] [place], [address] [place] [address], [facility], tel:[phone] [facility] Other bursitis of knee, left knee 1 Jennifer Abbott. [address] [place] [address], [facility], . tel:[phone] Referring Provider: Bea Bowles, [address] [place] [address], [facility]. tel:[phone] Office/outpa tient visit,est, mod [facility] [address], [facility], tel:[phone] [facility] general orthopedic (chief complaint) Unilateral primary osteoarthriti s, left knee 1 Nita Figueredo. [address] [place] [address], [facility], . tel:[phone] Referring Provider: Bea Bowles, [address] [place] [address], [facility]. tel:[phone] Office/outpa tient visit,est, mod [facility] [address], [facility], tel:[phone] [facility] general orthopedic (chief complaint) Aftercare following joint replacement surgeryPresen ce of left artificial knee jointOther bursitis of knee, left knee 1 Nita Figueredo. [address] [place] [address], [facility], [place]. tel:[phone] Referring Provider: Brian Montesinos, [address] [place] [address], [facility]. tel:[phone] Office/outpa tient visit,est, mod [facility] [address], [address], [place] tel:[phone] [facility] general orthopedic (chief complaint) No Information 1 Trent Brian. [address] [place], [address], [place]. tel:[phone] Office/outpa tient visit,est, mod [facility] [place], [facility] [place], [address], [place] tel:[phone] [facility] No Information 9 Roberto Nevarez. [address] [place], [address], [place]. tel:[phone] Referring Provider: Weston Tamez, [address] [place], [address]. tel:[phone] [facility] [place], [facility] [place], [address], [place] tel:[phone] [facility] No Information 9 Joi Ontiveros. [address] [place], [address], [place]. tel:[phone] [facility] [place], [address] [place] [address], [address], [place] tel:[phone] [facility] No Information 9 Joi Ontiveros. [address] [place], [address], [place]. tel:[phone] Office/outpa tient visit,new, mod [facility] [place], [facility] [place], [address], [place] tel:[phone] [facility] Radiculopathy , lumbar region 8 Yannick Dobson. [address] [place] [address], [id number], [place]. tel:[phone] Referring Provider: Scar Rodriguez, [address] [place] [address], [address]. tel:[phone] [facility] [place], [facility] [place], [facility], tel:[phone] [facility] No Information 8 Joi Ontiveros. [address] [place], [facility], . tel:[phone] Office/outpa tient visit,est, mod [facility] [place], [address] [place], [place], [facility], tel:[phone] [facility] No Information 8 Jennifer Abbott. [address] [place], [place], [facility], . tel:[phone] Office/outpa [facility]ient visit,[facility], [facility], [address] [place], [place], [facility], tel:[phone] [facility] No Information Jennifer Abbott. [address] [place], [place], [facility], . tel:[phone] Family History Family Member Type Diagnosis Age At Onset Mother Problem (finding) Hypertension Father Problem (finding) Congenital heart diseas e Father Problem (finding) Hypertension Father Problem (finding) Thyroid disorder Father Problem (finding) Hyperlipidemia Mother Problem (finding) Cancer Father Problem (finding) Stroke Sister Problem (finding) Cancer Sister Problem (finding) Hypertension Payers Payer name Insurance type Covered libertarian ID Authoriza tion(s) Medicare [facility] [id number] [facility] [id number] Social History Type Description Quantity Date Captured Comments Sex Female Smoking Status No Information Chief Complaint And Reason For Visit No Information Reason For Referral Reason For Referral No Information Plan Of Treatment Date Type Action Status Future Order: Radiology Order MR I Lumbar Spine WO Contrast ([id number]), Ordered on: Ordered History Of Present Illness [...]
[2023-07-15 10:09] VITALS: BP 115/78; PULSE 81; RESP 18; TEMP 36.4; O2SAT 97; BMI 33.9
[2023-07-15 10:25] VITALS: BP 153/78; PULSE 82; RESP 18; O2SAT 97
[2023-07-15] MEDS: methylPREDNISolone ACETATE 80MG/ML VIAL 80 MG (10:25)
[2023-07-15 10:27] VITALS: BP 153/78; PULSE 82; RESP 18; O2SAT 97
[2023-07-15 10:30] VITALS: BP 124/77; PULSE 72; RESP 18; O2SAT 97
--- NOTE | 2023-08-05 07:48 | P.PCN_ITS ---
Procedure Date: 07/15/23 Time: 15:00 Anesthesiologist:: Balbir Knott CRNA Complications:: None Pre-procedure Diagnosis:: Degenerative disc disease cervical spine with cervical radiculopathy Post-procedure Diagnosis:: Same Indications for Procedure:: Patient is a 73-year-old female who presents to the clinic today for a C5-6 cervical epidural steroid injection. Patient reports posterior cervical neck pain as well as bilateral arm radicular symptoms. She rates her pain a 6 out of 10. Procedure Details:: Procedure:Cervical epidural steroid injection Informed consent was obtained and the risks and benefits of the procedure were explained to the patient. The patient was taken to the procedure room and noninvasive monitors placed, including noninvasive blood pressure cuff and pulse oximeter. The neck was prepped using Chloraprep as a cleansing solution. The C5- C6 interspace was viewed using fluroscopy. The skin and subcutaneous tissues were anesthetized using lidocaine 1.5% and a 25-gauge needle. After this an 18- gauge Touhy epidural needle was placed into the C5-C6 interspace under fluroscopy guidance and advanced using loss of resistance to air until the epidural space was encountered. After confirmation of needle placement in the epidural space using contrast dye, a solution containing normal saline, 2 mL and Depo-Medrol 80 mg was incrementally injected into the cervical epidural space.~ The patient tolerated the procedure well with no complications. The patient was observed in the Pain Clinic and then discharged home neurologically intact. Plan and Disposition:: The patient was discharged without incident and will return to the clinic in 2 weeks for follow-up
== END 2023-07-15 10:30 | disposition home or self-care (01) ==
PROVIDERS: PCP Family Medicine; Visit Provider Nurse Anesthetist, Certified Registered
DX: M50.122 Cervical disc disorder at C5-C6 level with radiculopathy (principal)
CPT/HCPCS: 62321; J1040

== ENCOUNTER 2023-08-04 09:56 | Outpatient (POV) | payer MEDICARE, SELFPAY ==
--- NOTE | 2023-08-04 10:26 | A.OFFVIS_ITS ---
[facility] Pain Management SOAP Note Subjective:: Patient is a pleasant 73-year-old female who presents today for follow-up of cervical epidural steroid injection C6-C7 on July 15, 2023. Today she rates her pain a 7 out of 10. Patient states that she is had at least 80% improvement in her neck and arm related symptoms following this injection. She states that she no longer has the numbness and tingling down into her arms and fingers. She states she has been able to increase her activity with decreased pain symptoms and feels overall more functional. Patient does states she continues to have her chronic pain however she is questioning whether or not if she is grounded tolerance to her meloxicam. Patient states that she does not feel like this is working as well. Patient is requesting if there is anything we can do instead. Patient was given Flexeril 5 mg at the ER and states that this did help but due to causing drowsiness she only would take it as needed at bedtime. Patient is also prescribed compounded cream. Her Jose Miguel has been reviewed and is appropriate. Review of Systems: General: No recent weight changes, no fever, no sleep disturbances Respiratory: No cough, no shortness of air, no recurring pulmonary infections Cardiovascular/peripheral vascular: No chest pain, no palpitations, no edema, no shortness of breath Gastrointestinal: No new onset incontinence, normal bowel movements reported Genitourinary: No new onset incontinence Musculoskeletal: Low back pain Psychiatric: [Normal mood/affect] Neurological: [Denies weakness in extremities], [denies balance issues] Objective:: Physical Exam: General: Alert and oriented x3, no acute distress, pleasant and cooperative Lungs: Respirations even and unlabored, symmetrical chest expansion Eyes: PERRL Musculoskeletal: Flexion and extension of lumbar [spine] somewhat guarded secondary to pain, [antalgic gait noted] Neurological: Speech clear, no gross sensory deficit Assessment:: Degenerative disc disease of cervical and lumbar spine with cervical and lumbar radiculopathy symptoms, lumbar spinal stenosis Plan:: Patient has had significant improvement following her cervical epidural and does not require additional injection therapy at this time. I have counseled the patient to discontinue her meloxicam and that I will send in a 2-week dose of diclofenac 75 mg twice a day. I have counseled the patient to not take any other NSAIDs while taking this medication and to take it with food to minimize GI upset. I will also send in a 1 month supply of the Flexeril 5 mg at bedtime. Patient will return to clinic in 2 weeks for reevaluation of symptoms and plan of care. Patient has been instructed to contact the clinic with any concerns before the next appointment. Dr. Partida has reviewed this note and agrees with this plan of care. This note was dictated using voice recognition software and make contain errors or omissions. [facility] Disclaimer: The information contained in this section may have been updated after the patient was seen, as this information can be updated by other users. Medical History Hypertension Arthritis Hyperlipidemia Surgical History History of bilateral knee replacement Family History Other No significant family history Social History Smoking Status: Never smoker second hand exposure: No alcohol intake: never substance use type: denies use current occupational status: retired Travel in the last 8 weeks: None household members: spouse housing: house current occupation: [employer] current occupational exposures/hazards: No caffeine: Yes
[2023-08-04 10:44] VITALS: BMI 33.6
== END 2023-08-04 23:59 | disposition home or self-care (01) ==
PROVIDERS: Visit Provider Nurse Practitioner Family
DX: M50.123 Cervical disc disorder at C6-C7 level with radiculopathy (principal); M51.16 Intervertebral disc disorders with radiculopathy, lumbar region; M48.061 Spinal stenosis, lumbar region without neurogenic claudication
CPT/HCPCS: 99212; G0463

== ENCOUNTER 2023-08-18 10:08 | Outpatient (POV) | payer MEDICARE, SELFPAY ==
--- NOTE | 2023-08-18 10:11 | EXP.PAIN.SOA ---
[facility] Pain Management SOAP Note Subjective:: Patient is a pleasant 73-year-old female who presents today for 2-week follow-up. Today she rates her pain a 6 out of 10. She denies any new trauma or injury. At her last visit we did discontinue her meloxicam and change it to diclofenac 75 mg twice daily. She does feel like this helped much better than the meloxicam has. She also managed with Flexeril 5 mg at bedtime. She denies any side effects from this medication. She is also using her compounded cream. Patient does state that she did start using the Salonpas patches and that has significantly helped as well. Patient states today her neck still is maintaining and not needing any additional injection therapy at this time. Her Jose Miguel has been reviewed and is appropriate. Review of Systems: General: No recent weight changes, no fever, no sleep disturbances Respiratory: No cough, no shortness of air, no recurring pulmonary infections Cardiovascular/peripheral vascular: No chest pain, no palpitations, no edema, no shortness of breath Gastrointestinal: No new onset incontinence, normal bowel movements reported Genitourinary: No new onset incontinence Musculoskeletal: Low back pain Psychiatric: [Normal mood/affect] Neurological: [Denies weakness in extremities], [denies balance issues] Objective:: Physical Exam: General: Alert and oriented x3, no acute distress, pleasant and cooperative Lungs: Respirations even and unlabored, symmetrical chest expansion Eyes: PERRL Musculoskeletal: Flexion and extension of lumbar [spine] somewhat guarded secondary to pain, [antalgic gait noted] Neurological: Speech clear, no gross sensory deficit Assessment:: 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 I have counseled the patient that they may be cheaper through her insurance in comparison to [id number]. I have recommended that before filling this medication to check on prices. Patient is agreeable to this plan of care. Patient will return to clinic in 1 month for reevaluation of symptoms and plan of care. Patient has been instructed to contact the clinic with any concerns before the next appointment. Dr. Partida has reviewed this note and agrees with this plan of care. This note was dictated using voice recognition software and make contain errors or omissions. [facility] Disclaimer: The information contained in this section may have been updated after the patient was seen, as this information can be updated by other users. Medical History Hypertension Arthritis Hyperlipidemia Surgical History History of bilateral knee replacement Family History Other No significant family history Social History Smoking Status: Never smoker second hand exposure: No alcohol intake: never substance use type: denies use current occupational status: retired Travel in the last 8 weeks: None household members: spouse housing: house current occupation: [employer] current occupational exposures/hazards: No caffeine: Yes
[2023-08-18 10:22] VITALS: BP 139/59; PULSE 69; RESP 18; TEMP 36.6; O2SAT 98; BMI 33.9
== END 2023-08-18 23:59 | disposition home or self-care (01) ==
PROVIDERS: PCP Family Medicine; Visit Provider Nurse Practitioner Family
DX: M50.10 Cervical disc disorder with radiculopathy, unspecified cervical region (principal); M51.16 Intervertebral disc disorders with radiculopathy, lumbar region
CPT/HCPCS: 99212; G0463

== ENCOUNTER 2023-09-17 10:29 | Outpatient (POV) | payer MEDICARE, SELFPAY ==
--- OUTSIDE RECORDS SUMMARY | 2023-09-17 10:32 | XMS_ITS | Continuity of Care Document ---
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 [address] [place] [address], [address], [place]. tel:[phone] [facility], [address] [place] [address], [facility], [place] tel:[phone] [place] Stella No Information 2 Nita Figueredo. [address] [place] [address], [facility], [place]. tel:[phone] Referring Provider: Brian Montesinos, [address] [place] [address], [facility]. tel:[phone] Office/outpa tient visit,est, mod [facility] [place], [address] [place] [address], [facility], [place] tel:[phone] [place] Stella General orthopedic (chief complaint) Impingement syndrome of right shoulder 2 Trent Torres. [address] [place] [address], [facility], [place]. tel:[phone] Referring Provider: Brian Montesinos, [address] [place] [address], [facility]. tel:[phone] [facility] [address], [address], [place] tel:[phone] Dionicio Mcintyre Pain in left kneeNeuralgia and neuritis, unspecified Jul- 2 Joi Ontiveros. [address] [place], [address], [place]. tel:[phone] Referring Provider: Bea Bowles, [address] [place] [address], [facility]. tel:[phone] [facility] [place], [facility] [place], [address], [place] tel:[phone] Dionicio Mcintyre Neuralgia and neuritis, unspecified Jul- 2 Krbenedict Ontiveros. [address] [place], [address], [place]. tel:[phone] Referring Provider: Bea Bowles, [address] [place] [address], [address]. tel:[phone] Office/outpa tient visit,est, mod [facility], [facility] [address] [place], [place], [facility], [place] tel:[phone] [facility] (chief complaint) Other low back painNeuralgia and neuritis, unspecified Jun- 2 Nita Figueredo. [address] [place] [address], [address], [place]. tel:[phone] Referring Provider: Bea Nita Wilbur, [address] [place], [place] [address], [address]. tel:[phone] Office/outpa tient visit,est, mod [facility] [place], [facility] [address] [place], [place], [facility], [place] tel:[phone] Dionicio Mcintyre Neuralgia and neuritis, unspecifiedOt her low back painPain in left knee Jun- 2 Joi Ontiveros. [address] [place], [address], [place]. tel:[phone] Referring Provider: Bea Bowles, [address] [place] [address], [address]. tel:[phone] Office/outpa tient visit,est, mod [facility] [place], [facility] [place], [address], [place] tel:[phone] [facility] (chief complaint) Other bursitis of knee, left kneeUnilatera l primary osteoarthriti s, left knee Jun- 2 Billflavio Figueredo. [address] [place] [address], [facility], . tel:[phone] Referring Provider: Brian Montesinos, [address] [place] [address], [facility]. tel:[phone] [facility], [address] [place] [address], [facility], tel:[phone] [facility] Other bursitis of knee, left knee 1 Jennifer Abbott. [address] [place] [address], [facility], . tel:[phone] Referring Provider: Bea Bowles, [address] [place] [address], [facility]. tel:[phone] Office/outpa tient visit,est, mod [facility] [address], [facility], tel:[phone] [facility] general orthopedic (chief complaint) Unilateral primary osteoarthriti s, left knee 1 Nita Figueredo. [address] [place] [address], [facility], . tel:[phone] Referring Provider: Bea Bowles, [address] [place] [address], [facility]. tel:[phone] Office/outpa tient visit,est, mod [facility] [address], [facility], tel:[phone] [facility] general orthopedic (chief complaint) Aftercare following joint replacement surgeryPresen ce of left artificial knee jointOther bursitis of knee, left knee 1 Nita Figueredo. [address] [place] [address], [facility], [place]. tel:[phone] Referring Provider: Brian Montesinos, [address] [place] [address], [facility]. tel:[phone] Office/outpa tient visit,est, mod [facility] [address], [address], [place] tel:[phone] [facility] general orthopedic (chief complaint) No Information 1 Trent Brian. [address] [place], [address], [place]. tel:[phone] Office/outpa tient visit,est, mod [facility] [place], [facility], [address], [place] tel:[phone] [facility] No Information 9 Roberto Nevarez. [address] [place], [address], [place]. tel:[phone] Referring Provider: Weston Tamez, [address] [place], [address]. tel:[phone] [facility] [place], [facility] [place], [address], [place] tel:[phone] [facility] No Information 9 Joi Ontiveros. [address] [place], [address], [place]. tel:[phone] [facility], [address] [place] [address], [address], [place] tel:[phone] [facility] No Information 9 Joi Ontiveros. [address] [place], [address], [place]. tel:[phone] Office/outpa tient visit,new, mod [facility] [place], [facility] [place], [address], [place] tel:[phone] [facility] Radiculopathy , lumbar region 8 Yannick Dobson. [address] [place] [address], [id number], [place]. tel:[phone] Referring Provider: Scar Rodriguez, [address] [place] [address], [address]. tel:[phone] [facility], [facility] [address] [place], [place], [facility], tel:[phone] [facility] No Information 8 Joi Ontiveros. [address], [facility], . tel:[phone] Office/outpa tient visit,est, mod [facility] [place], [address], [place], [facility], tel:[phone] [facility] No Information 8 Jennifer Abbott. [address] [place], [place], [facility], . tel:[phone] Office/outpa tient visit,[facility], [address], [place], [facility], tel:[phone] [facility] No Information Jennifer Abbott. [address] [place], [place], [facility], . tel:[phone] Family History Family Member Type Diagnosis Age At Onset Mother Problem (finding) Hypertension Father Problem (finding) Congenital heart diseas e Father Problem (finding) Hypertension Father Problem (finding) Thyroid disorder Father Problem (finding) Hyperlipidemia Mother Problem (finding) Cancer Father Problem (finding) Stroke Sister Problem (finding) Cancer Sister Problem (finding) Hypertension Payers Payer name Insurance type Covered constitution party ID Authoriza tion(s) Medicare [facility] [id number] [id number] Social History Type Description Quantity Date Captured Comments Sex Female Smoking Status No Information Chief Complaint And Reason For Visit No Information Reason For Referral Reason For Referral No Information Plan Of Treatment Date Type Action Status Future Order: Radiology Order MR I Lumbar Spine WO Contrast ([id number]), Ordered on: Ordered History Of Present Illness [...]
[2023-09-17 10:36] VITALS: BP 141/89; PULSE 69; RESP 18; O2SAT 98; BMI 33.9
--- NOTE | 2023-09-17 11:02 | A.OFFVIS_ITS ---
[facility] Pain Management SOAP Note Subjective:: Patient is a pleasant 73-year-old female who presents today for follow-up of cervical epidural steroid injection of C5-C6 on 08/05/2023. Today she rates her pain an 8 out of 10. Patient states that her neck is doing wonderful and that she had at least 90% relief following this injection and feels like it still helping. Patient does state today all of her pain is related to her low back and legs. Patient denies any new trauma or injury. Patient has in the past had a lumbar epidural of L2-L3 that did provide more than 50% relief lasting several months. Patient feels like that she is needing to have a repeat injection today. She states her pain is an aching, throbbing sensation with numbness and tingling and does interfere with her ability to perform activities of daily living. Patient is currently manage with diclofenac 75 mg twice a day and Flexeril 5 mg at bedtime along with compounded cream. She denies any side effects from this medication. She states she does need refills. Her Jose Miguel has been reviewed and is appropriate. Review of Systems: General: No recent weight changes, no fever, no sleep disturbances Respiratory: No cough, no shortness of air, no recurring pulmonary infections Cardiovascular/peripheral vascular: No chest pain, no palpitations, no edema, no shortness of breath Gastrointestinal: No new onset incontinence, normal bowel movements reported Genitourinary: No new onset incontinence Musculoskeletal: Low back pain, leg pain Psychiatric: [Normal mood/affect] Neurological: [Denies weakness in extremities], [denies balance issues] Objective:: Physical Exam: General: Alert and oriented x3, no acute distress, pleasant and cooperative Lungs: Respirations even and unlabored, symmetrical chest expansion Eyes: PERRL Musculoskeletal: Flexion and extension of lumbar [spine] somewhat guarded secondary to pain, [antalgic gait noted] Neurological: Speech clear, no gross sensory deficit Assessment:: 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 I discussed with the patient the risk and benefits of the lumbar epidural steroid injection. She would like to proceed forward with this plan of care. Patient is not on any blood thinners. Patient has had this injection in the past with her last 1 in April providing 50% relief lasting several months. We will schedule the patient for an LESI L2-L3 under fluoroscopy. I will also refill the patient's diclofenac, Flexeril and provide a 3-month supply of these medications. Patient has been instructed to contact the clinic with any concerns before the next appointment. Dr. Partida has reviewed this note and agrees with this plan of care. This note was dictated using voice recognition software and make contain errors or omissions. [facility] Disclaimer: The information contained in this section may have been updated after the patient was seen, as this information can be updated by other users. Medical History Hypertension Arthritis Hyperlipidemia Surgical History History of bilateral knee replacement Family History Other No significant family history Social History Smoking Status: Never smoker second hand exposure: No alcohol intake: never substance use type: denies use current occupational status: other Travel in the last 8 weeks: None household members: spouse housing: house current occupation: [employer] current occupational exposures/hazards: No caffeine: Yes
== END 2023-09-17 23:59 | disposition home or self-care (01) ==
PROVIDERS: PCP Family Medicine; Visit Provider Nurse Practitioner Family
DX: M50.122 Cervical disc disorder at C5-C6 level with radiculopathy (principal); M51.16 Intervertebral disc disorders with radiculopathy, lumbar region
CPT/HCPCS: 99212; G0463

== ENCOUNTER 2023-09-23 09:55 | Day surgery (SDC) | payer MEDICARE, SELFPAY ==
--- OUTSIDE RECORDS SUMMARY | 2023-09-23 09:58 | XMS_ITS | Continuity of Care Document ---
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 [address] [place] [address], [address], [place]. tel:[phone] [facility], [address] [place] [address], [facility], [place] tel:[phone] Eustis Baker No Information 2 Nita Figueredo. [address] [place] [address], [facility], [place]. tel:[phone] Referring Provider: Brian Montesinos, [address] [place] [address], [facility]. tel:[phone] Office/outpa tient visit,est, mod [facility], [address] [place] [address], [facility], [place] tel:[phone] Eustis Baker General orthopedic (chief complaint) Impingement syndrome of right shoulder 2 Trent Torres. [address] [place] [address], [facility], [place]. tel:[phone] Referring Provider: Brian Montesinos, [address] [place] [address], [facility]. tel:[phone] [facility] [address], [address], [place] tel:[phone] Dionicio Mcintyre Pain in left kneeNeuralgia and neuritis, unspecified Jul- 2 Joi Ontiveros. [address] [place], [address], [place]. tel:[phone] Referring Provider: Bea Bowles, [address] [place] [address], [facility]. tel:[phone] [facility] [place], [facility] [place], [address], [place] tel:[phone] Dionicio Mcintyre Neuralgia and neuritis, unspecified Jul- 2 Krbenedict Ontiveros. [address] [place], [address], [place]. tel:[phone] Referring Provider: Bea Bowles, [address] [place] [address], [address]. tel:[phone] Office/outpa tient visit,est, mod [facility], [facility] [place], [facility], [place] tel:[phone] [facility] Other low back painNeuralgia and neuritis, unspecified Jun- 2 Nita Figueredo. [address] [place] [address], [address], [place]. tel:[phone] Referring Provider: Bea Nita Wilbur, [address] [place], [place] [address], [place], [address]. tel:[phone] Office/outpa tient visit,est, mod [facility], [facility] [address] [place], [facility], [place] tel:[phone] Dionicio Mcintyre Neuralgia and neuritis, unspecifiedOt her low back painPain in left knee Jun- 2 Joi Ontiveros. [address] [place], [address], [place]. tel:[phone] Referring Provider: Bea Bowles, [address] [place] [address], [address]. tel:[phone] Office/outpa tient visit,est, mod [facility], [facility] [place], [address], [place] tel:[phone] [facility]) Other bursitis of knee, left kneeUnilatera l primary osteoarthriti s, left knee Jun- 2 Billflavio Figueredo. [address] [place] [address], [facility], . tel:[phone] Referring Provider: Brian Montesinos, [address] [place] [address], [facility]. tel:[phone] [facility], [address] [place] [address], [facility], tel:[phone] [facility] Other bursitis of knee, left knee 1 Jennifer Abbott. [address] [place] [address], [facility], . tel:[phone] Referring Provider: Bea Bowles, [address] [place] [address], [facility]. tel:[phone] Office/outpa tient visit,est, mod [facility] [address], [facility], tel:[phone] [facility] general orthopedic (chief complaint) Unilateral primary osteoarthriti s, left knee 1 Nita Figueredo. [address] [place] [address], [facility], . tel:[phone] Referring Provider: Bea Bowles, [address] [place] [address], [facility]. tel:[phone] Office/outpa tient visit,est, mod [facility] [address], [facility], tel:[phone] [facility] general orthopedic (chief complaint) Aftercare following joint replacement surgeryPresen ce of left artificial knee jointOther bursitis of knee, left knee 1 Nita Figueredo. [address] [place] [address], [facility], [place]. tel:[phone] Referring Provider: Brian Montesinos, [address] [place] [address], [facility]. tel:[phone] Office/outpa tient visit,est, mod [facility] [address], [address], [place] tel:[phone] [facility] general orthopedic (chief complaint) No Information 1 Trent Brian. [address] [place], [address], [place]. tel:[phone] Office/outpa tient visit,est, mod [facility], [facility] [place], [address], [place] tel:[phone] [facility] No Information 9 Roberto Nevarez. [address] [place], [address], [place]. tel:[phone] Referring Provider: Weston Tamez, [address] [place], [address]. tel:[phone] [facility], [facility] [place], [address], [place] tel:[phone] [facility] No Information 9 Joi Ontiveros. [address] [place], [address], [place]. tel:[phone] [facility], [address] [place] [address], [address], [place] tel:[phone] [facility] No Information 9 Joi Ontiveros. [address] [place], [address], [place]. tel:[phone] Office/outpa tient visit,new, mod [facility], [facility] [place], [address], [place] tel:[phone] [facility] Radiculopathy , lumbar region 8 Yannick Dobson. [address] [place] [address], [id number], [place]. tel:[phone] Referring Provider: Scar Rodriguez, [address] [place] [address], [address]. tel:[phone] [facility], [facility] [place], [facility], tel:[phone] [facility] No Information 8 Joi Ontiveros. [address] [place], [facility], . tel:[phone] Office/outpa tient visit,est, mod [facility], [address] [place], [place], [facility], tel:[phone] [facility] No Information 8 Jennifer Abbott. [address] [place], [place], [facility], . tel:[phone] Office/outpa tient visit,[facility], [facility], [address] [place], [place], [facility], tel:[phone] [facility] No Information Jennifer Abbott. [address] [place], [place], [facility], . tel:[phone] Family History Family Member Type Diagnosis Age At Onset Mother Problem (finding) Hypertension Father Problem (finding) Congenital heart diseas e Father Problem (finding) Hypertension Father Problem (finding) Thyroid disorder Father Problem (finding) Hyperlipidemia Mother Problem (finding) Cancer Father Problem (finding) Stroke Sister Problem (finding) Cancer Sister Problem (finding) Hypertension Payers Payer name Insurance type Covered alliance party ID Authoriza tion(s) Medicare [facility] [id number] [id number] Social History Type Description Quantity Date Captured Comments Sex Female Smoking Status No Information Chief Complaint And Reason For Visit No Information Reason For Referral Reason For Referral No Information Plan Of Treatment Date Type Action Status Future Order: Radiology Order MR I Lumbar Spine WO Contrast ([id number]), Ordered on: Ordered History Of Present Illness [...]
[2023-09-23] MEDS: methylPREDNISolone ACETATE 80MG/ML VIAL 80 MG (10:13)
[2023-09-23 10:15] VITALS: BP 145/78; PULSE 76; RESP 16; TEMP 36.8; O2SAT 100; BMI 33.9
[2023-09-23 10:31] VITALS: BP 175/50; PULSE 76; RESP 19; O2SAT 99
[2023-09-23 10:37] VITALS: BP 115/73; PULSE 71; RESP 16; O2SAT 100
[2023-09-23 10:43] VITALS: BP 175/50; PULSE 76; RESP 18; O2SAT 99
--- NOTE | 2023-09-23 11:09 | EXP.PAIN.PRO ---
Procedure Date: 09/23/23 Time: 10:40 Anesthesiologist:: Balbir Knott CRNA Complications:: None Pre-procedure Diagnosis:: Degenerative disc lumbar spine multilevels. Lumbar radiculopathy. Lumbar spinal stenosis. Lumbar facet arthropathy multilevel lumbar spine. Post-procedure Diagnosis:: Same. Indications for Procedure:: Patient is a very pleasant 73-year-old female comes our clinic today for lumbar epidural steroid injections L2-3 level. After further review the L2-3 level was not accessible. The injection was given at the L3-4 level. She describes low back pain is constant, dull, aching. Patient does report some radicular symptoms into the hips at times. She responded very well to to the same injection several months ago. She rates her pain 8/10. Procedure Details:: Procedure: Lumbar epidural steroid injection under fluoroscopy Informed consent was obtained and the risks and benefits of the procedure were explained to the patient. The patient was taken to the procedure room and noninvasive monitors placed, including noninvasive blood pressure cuff and pulse oximeter. The back was viewed using C-arm Fluoroscopy and prepped using Chloraprep as a cleansing solution and the L3-4 interspace was palpated. Skin and subcutaneous tissues were anesthetized using lidocaine 1.5% and a 25-gauge needle. After this, an 18-gauge Touhy epidural needle was placed into the L3-4 interspace and advanced using fluoroscopic guidance and loss of resistance to air until the epidural space was encountered. After confirmation of needle placement in the epidural space, with dye, a solution containing normal saline, 3 mL and Depo-Medrol 80 mg were incrementally injected into the lumbar epidural space. The patient tolerated the procedure well with no complications. The patient was observed in the Pain Clinic and then discharged home neurologically intact. Plan and Disposition:: Patient was discharged without incident.
== END 2023-09-23 10:37 | disposition home or self-care (01) ==
LOC: SC.PAINP 09:56
PROVIDERS: PCP Family Medicine; Visit Provider Nurse Anesthetist, Certified Registered
DX: M51.16 Intervertebral disc disorders with radiculopathy, lumbar region (principal); M48.061 Spinal stenosis, lumbar region without neurogenic claudication; M47.26 Other spondylosis with radiculopathy, lumbar region
CPT/HCPCS: 62323; J1010

== ENCOUNTER 2023-10-15 10:30 | Outpatient (POV) | payer MEDICARE, SELFPAY ==
--- OUTSIDE RECORDS SUMMARY | 2023-10-15 10:32 | XMS_ITS | Continuity of Care Document ---
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 [address] [place] [address], [address], [place]. tel:[phone] [facility], [address] [place] [address], [facility], [place] tel:[phone] [place] No Information 2 Nita Figueredo. [address] [place] [address], [facility], [place]. tel:[phone] Referring Provider: Brian Montesinos, [address] [place] [address], [facility]. tel:[phone] Office/outpa tient visit,est, mod [facility] [place], [address] [place] [address], [facility], [place] tel:[phone] [place] General orthopedic (chief complaint) Impingement syndrome of right shoulder 2 Trent Torres. [address] [place] [address], [facility], [place]. tel:[phone] Referring Provider: Brian Montesinos, [address] [place] [address], [facility]. tel:[phone] [facility] [address], [address], [place] tel:[phone] Dionicio Mcintyre Pain in left kneeNeuralgia and neuritis, unspecified Jul- 2 Joi Ontiveros. [address] [place], [address], [place]. tel:[phone] Referring Provider: Bea Bowles, [address] [place] [address], [facility]. tel:[phone] [facility] [place], [facility] [place], [address], [place] tel:[phone] Dionicio Mcintyre Neuralgia and neuritis, unspecified Jul- 2 Krbenedict Ontiveros. [address] [place], [address], [place]. tel:[phone] Referring Provider: Bea Bowles, [address] [place] [address], [address]. tel:[phone] Office/outpa tient visit,est, mod [facility] [place], [facility] [address] [place], [facility], [place] tel:[phone] [facility] (chief complaint) Other low back painNeuralgia and neuritis, unspecified Jun- 2 Nita Figueredo. [address] [place] [address], [address], [place]. tel:[phone] Referring Provider: Bea Nita Wilbur, [address] [place], [place] [address], [place], [address]. tel:[phone] Office/outpa tient visit,est, mod [facility] [place], [facility] [address] [place], [facility], [place] tel:[phone] Dionicio Mcintyre Neuralgia and neuritis, unspecifiedOt her low back painPain in left knee Jun- 2 Joi Ontiveros. [address] [place], [address], [place]. tel:[phone] Referring Provider: Bea Bowles, [address] [place] [address], [address]. tel:[phone] Office/outpa tient visit,est, mod [facility], [facility] [place], [address], [place] tel:[phone] [facility] (chief complaint) Other bursitis of knee, left kneeUnilatera l primary osteoarthriti s, left knee Jun- 2 Billflavio Figueredo. [address] [place] [address], [facility], . tel:[phone] Referring Provider: Brian Montesinos, [address] [place] [address], [facility]. tel:[phone] [facility] [place], [address] [place] [address], [facility], tel:[phone] [facility] Other bursitis of knee, left knee 1 Jennifer Abbott. [address] [place] [address], [facility], . tel:[phone] Referring Provider: Bea Bowles, [address] [place] [address], [facility]. tel:[phone] Office/outpa tient visit,est, mod [facility] [address], [facility], tel:[phone] [facility] general orthopedic (chief complaint) Unilateral primary osteoarthriti s, left knee 1 Nita Figueredo. [address] [place] [address], [facility], . tel:[phone] Referring Provider: Bea Bowles, [address] [place] [address], [facility]. tel:[phone] Office/outpa tient visit,est, mod [facility] [address], [facility], tel:[phone] [facility] general orthopedic (chief complaint) Aftercare following joint replacement surgeryPresen ce of left artificial knee jointOther bursitis of knee, left knee 1 Nita Figueredo. [address] [place] [address], [facility], [place]. tel:[phone] Referring Provider: Brian Montesions, [address] [place] [address], [facility]. tel:[phone] Office/outpa tient visit,est, mod [facility] [address], [address], [place] tel:[phone] [facility] general orthopedic (chief complaint) No Information 1 Trent Brian. [address] [place], [address], [place]. tel:[phone] Office/outpa tient visit,est, mod [facility] [place], [facility] [place], [address], [place] tel:[phone] [facility] No Information 9 Roberto Nevarez. [address] [place], [address], [place]. tel:[phone] Referring Provider: Weston Tamez, [address] [place], [address]. tel:[phone] [facility] [place], [facility] [place], [address], [place] tel:[phone] [facility] No Information 9 Joi Ontiveros. [address] [place], [address], [place]. tel:[phone] [facility] [place], [address] [place] [address], [address], [place] tel:[phone] [facility] No Information 9 Joi Ontiveros. [address] [place], [address], [place]. tel:[phone] Office/outpa tient visit,new, mod [facility] [place], [facility] [place], [address], [place] tel:[phone] [facility] Radiculopathy , lumbar region 8 Yannick Dobson. [address] [place] [address], [id number], [place]. tel:[phone] Referring Provider: Scar Rodriguez, [address] [place] [address], [address]. tel:[phone] [facility] [place], [facility] [address] [place], [facility], tel:[phone] [facility] No Information 8 Joi Ontiveros. [address] [place], [facility], . tel:[phone] Office/outpa tient visit,est, mod [facility] [place], [address] [place], [place], [facility], tel:[phone] [facility] No Information 8 Jennifer Abbott. [address] [place], [place], [facility], . tel:[phone] Office/outpa tient visit,[facility], [address] [place], [place], [facility], tel:[phone] [facility] No Information Jennifer Abbott. [address] [place], [place], [facility], . tel:[phone] Family History Family Member Type Diagnosis Age At Onset Mother Problem (finding) Hypertension Father Problem (finding) Congenital heart diseas e Father Problem (finding) Hypertension Father Problem (finding) Thyroid disorder Father Problem (finding) Hyperlipidemia Mother Problem (finding) Cancer Father Problem (finding) Stroke Sister Problem (finding) Cancer Sister Problem (finding) Hypertension Payers Payer name Insurance type Covered democrat ID Authoriza tion(s) Medicare [facility] [id number] [facility] [id number] Social History Type Description Quantity Date Captured Comments Sex Female Smoking Status No Information Chief Complaint And Reason For Visit No Information Reason For Referral Reason For Referral No Information Plan Of Treatment Date Type Action Status Future Order: Radiology Order MR I Lumbar Spine WO Contrast ([id number]), Ordered on: Ordered History Of Present Illness [...]
--- NOTE | 2023-10-15 10:51 | EXP.PAIN.SOA ---
[facility] Pain Management SOAP Note Subjective:: Patient is a pleasant 73-year-old female who presents today for follow-up of lumbar epidural steroid injection L3-4 on 09/23/2023. Today she rates her pain a 2 out of 10. Patient states that she has had at least 70% improvement following this injection and feels like it still helping. Patient denies any new injury or trauma. Patient does state that she is still doing pretty good on her neck symptoms as well. She did previously have a cervical epidural on August 04 that did provide 90% relief. She does state on days that she is doing more standing for prolonged. States she does noticed increased pain however overall she is doing much better with overall improved function. Patient is prescribed diclofenac 75 mg twice a day and Flexeril 5 mg at bedtime. She denies any side effects from this medication and at her last visit in August was given a 3-month supply of both of these medications. She does state that she has recently had a follow-up with her premium cancellation clerk and they had some areas of concern around her heart so she is going to be scheduled for a CT angiogram coming up. Her Jose Miguel has been reviewed and is appropriate. Review of Systems: General: No recent weight changes, no fever, no sleep disturbances Respiratory: No cough, no shortness of air, no recurring pulmonary infections Cardiovascular/peripheral vascular: No chest pain, no palpitations, no edema, no shortness of breath Gastrointestinal: No new onset incontinence, normal bowel movements reported Genitourinary: No new onset incontinence Musculoskeletal: Low back pain Psychiatric: [Normal mood/affect] Neurological: [Denies weakness in extremities], [denies balance issues] Objective:: Physical Exam: General: Alert and oriented x3, no acute distress, pleasant and cooperative Lungs: Respirations even and unlabored, symmetrical chest expansion Eyes: PERRL Musculoskeletal: Flexion and extension of lumbar [spine] somewhat guarded secondary to pain, [antalgic gait noted] Neurological: Speech clear, no gross sensory deficit Assessment:: 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 Patient does also not need any refills on her medication. Patient will return to clinic in 2 months for reevaluation of symptoms and plan of care. Patient has been instructed to contact the clinic with any concerns before the next appointment. Dr. Partida has reviewed this note and agrees with this plan of care. This note was dictated using voice recognition software and make contain errors or omissions. [facility] Disclaimer: The information contained in this section may have been updated after the patient was seen, as this information can be updated by other users. Medical History Hypertension Arthritis Hyperlipidemia Surgical History History of bilateral knee replacement Family History Other No significant family history Social History Smoking Status: Never smoker second hand exposure: No alcohol intake: never substance use type: denies use current occupational status: other Travel in the last 8 weeks: None household members: spouse housing: house current occupation: [employer] current occupational exposures/hazards: No caffeine: Yes
[2023-10-15 11:25] VITALS: BP 149/89; PULSE 69; RESP 16; O2SAT 97; BMI 17.7
== END 2023-10-15 23:59 | disposition home or self-care (01) ==
LOC: SC.PAIN 10:31
PROVIDERS: PCP Family Medicine; Visit Provider Nurse Practitioner Family
DX: M50.10 Cervical disc disorder with radiculopathy, unspecified cervical region (principal); M51.16 Intervertebral disc disorders with radiculopathy, lumbar region
CPT/HCPCS: 99212; G0463

== ENCOUNTER 2023-12-11 10:28 | Outpatient (POV) | payer MEDICARE, SELFPAY ==
--- OUTSIDE RECORDS SUMMARY | 2023-12-11 10:30 | XMS_ITS | Continuity of Care Document ---
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 Name Role Phone Elieser Hauser PA-C Unavailable [...] by oral route every day - Active vitamin B12 1,000 mcg-folic acid 400 mcg sublingual lozenge Take 1 tablet per day - Active Vitamin D3 25 mcg (1,000 unit) tablet take 1 tablet by oral route every day for 1 day 1 tablet - Active aspirin 81 mg chewable tablet chew 1 tablet by oral route every day 81 MG - Active oxybutynin chloride 5 mg tablet take 1 tablet by oral route 2 times every day 5 MG - Active Reglan 5 mg tablet take 1 tablet by oral route 4 times every day 30 minutes before meals and at bedtime 5 MG - Active gabapentin 300 mg capsule take 1 capsule by oral route every 2 days 300 MG - Active Ziac 5 mg-6.25 mg tablet take 1 tablet by oral route every day - Active potassium chloride ER 10 mEq capsule,extended release take 1 capsule by oral route every day with food 10 MEQ - Active CRESTOR (unknown strength) take 1 [...] Providers Copied on Encounter [facility] [place], [address] [place] [address], [facility], tel:[phone] [place] No Information 2 Analisa Mon. [address] [place] [address], [address], [place]. tel:[phone] [facility] [place], [address] [place] [address], [facility], [place] tel:[phone] [place] No Information 2 Nita Figueredo. [address] [place] [address], [facility], [place]. tel:[phone] Referring Provider: Brian Montesinos, [address] [place] [address], [facility]. tel:[phone] Office/outpa tient visit,est, mod [facility], [address] [place] [address], [facility], [place] tel:[phone] [place] General orthopedic (chief complaint) Impingement syndrome of right shoulder 2 Trent Torres. [address] [place] [address], [facility], [place]. tel:[phone] Referring Provider: Brian Montesinos, [address] [place] [address], [facility]. tel:[phone] [facility] [address], [address], [place] tel:[phone] Dionicio Mcintyre Pain in left kneeNeuralgia and neuritis, unspecified Jul- 2 Joi Ontiveros. [address] [place], [address], [place]. tel:[phone] Referring Provider: Bea Bowles, [address] [place] [address], [facility]. tel:[phone] [facility] [place], [facility] [place], [address], [place] tel:[phone] Dionicio Mcintyre Neuralgia and neuritis, unspecified Jul- 2 Krbenedict Ontiveros. [address] [place], [address], [place]. tel:[phone] Referring Provider: Bea Bowles, [address] [place] [address], [address]. tel:[phone] Office/outpa tient visit,est, mod [facility], [facility] [place], [place], [facility], [place] tel:[phone] [facility]) Other low back painNeuralgia and neuritis, unspecified Jun- 2 Nita Figueredo. [address] [place] [address], [address], [place]. tel:[phone] Referring Provider: Bea Nita Wilbur, [address] [place], [place] [address], [place], [address]. tel:[phone] Office/outpa tient visit,est, mod [facility] [place], [facility] [place], [place], [facility], [place] tel:[phone] Dionicio Mcintyre Neuralgia and neuritis, unspecifiedOt her low back painPain in left knee Jun- 2 Joi Ontiveros. [address] [place], [address], [place]. tel:[phone] Referring Provider: Bea Bowles, [address] [place] [address], [address]. tel:[phone] Office/outpa tient visit,est, mod [facility] [place] [facility], [facility] [place], [address], [place] tel:[phone] [facility] Other bursitis of knee, left kneeUnilatera l primary osteoarthriti s, left knee Jun- 2 Billflavio Figueredo. [address] [place] [address], [facility], . tel:[phone] Referring Provider: Brian Montesinos, [address] [place] [address], [facility]. tel:[phone] [facility], [address] [place] [address], [facility], tel:[phone] [facility] Other bursitis of knee, left knee 1 Jennifer Abbott. [address] [place] [address], [facility], . tel:[phone] Referring Provider: Bea Bowles, [address] [place] [address], [facility]. tel:[phone] Office/outpa tient visit,est, mod [facility] [address], [facility], tel:[phone] [facility] general orthopedic (chief complaint) Unilateral primary osteoarthriti s, left knee 1 Nita Figueredo. [address] [place] [address], [facility], . tel:[phone] Referring Provider: Bea Bowles, [address] [place] [address], [facility]. tel:[phone] Office/outpa tient visit,est, mod [facility] [address], [facility], tel:[phone] [facility] general orthopedic (chief complaint) Aftercare following joint replacement surgeryPresen ce of left artificial knee jointOther bursitis of knee, left knee 1 Nita Figueredo. [address] [place] [address], [facility], [place]. tel:[phone] Referring Provider: Brian Montesinos, [address] [place] [address], [facility]. tel:[phone] Office/outpa tient visit,est, mod [facility] [address], [address], [place] tel:[phone] [facility] general orthopedic (chief complaint) No Information 1 Trent Brian. [address] [place], [address], [place]. tel:[phone] Office/outpa tient visit,est, mod [facility], [facility] [place], [address], [place] tel:[phone] [facility] No Information 9 Roberto Nevarez. [address] [place], [address], [place]. tel:[phone] Referring Provider: Weston Tamez, [address] [place], [address]. tel:[phone] [facility], [facility] [place], [address], [place] tel:[phone] [facility] No Information 9 Joi Ontiveros. [address] [place], [address], [place]. tel:[phone] [facility], [address] [place] [address], [address], [place] tel:[phone] [facility] No Information 9 Joi Ontiveros. [address] [place], [address], [place]. tel:[phone] Office/outpa tient visit,new, mod [facility], [facility] [place], [address], [place] tel:[phone] [facility] Radiculopathy , lumbar region 8 Yannick Dobson. [address] [place] [address], [id number], [place]. tel:[phone] Referring Provider: Scar Rodriguez, [address] [place] [address], [address]. tel:[phone] [facility], [facility] [place], [facility], tel:[phone] [facility] No Information 8 Joi Ontiveros. [address] [place], [facility], . tel:[phone] Office/outpa tient visit,est, mod [facility], [address] [place], [place], [facility], tel:[phone] [facility] No Information 8 Jennifer Abbott. [address] [place], [place], [facility], . tel:[phone] Office/outpa tient visit,[facility], [facility], [address] [place], [place], [facility], tel:[phone] [facility] No Information Jennifer Abbott. [address] [place], [place], [facility], . tel:[phone] Family History Family Member Type Diagnosis Age At Onset Mother Problem (finding) Hypertension Father Problem (finding) Congenital heart diseas e Father Problem (finding) Hypertension Father Problem (finding) Thyroid disorder Father Problem (finding) Hyperlipidemia Mother Problem (finding) Cancer Father Problem (finding) Stroke Sister Problem (finding) Cancer Sister Problem (finding) Hypertension Payers Payer name Insurance type Covered green party ID Authoriza tion(s) Medicare [facility] [id number] [id number] Social History Type Description Quantity Date Captured Comments Sex Female Smoking Status No Information Chief Complaint And Reason For Visit No Information Reason For Referral Reason For Referral No Information Plan Of Treatment Date Type Action Status Future Order: Radiology Order MR I Lumbar Spine WO Contrast ([id number]), Ordered on: Ordered History Of Present Illness [...]
[2023-12-11 10:39] VITALS: BP 157/79; PULSE 72; RESP 18; O2SAT 98; BMI 33.5
--- NOTE | 2023-12-11 10:41 | A.OFFVIS_ITS ---
[facility] Disclaimer: The information contained in this section may have been updated after the patient was seen, as this information can be updated by other users. Medical History (Updated 12/11/23 @ 10:44 by Deepika Gonzalez APRN) Hypertension Arthritis Hyperlipidemia Surgical History History of bilateral knee replacement Family History Other No significant family history Social History Smoking Status: Never smoker second hand exposure: No alcohol intake: never substance use type: denies use current occupational status: other Travel in the last 8 weeks: None household members: spouse housing: house current occupation: [employer] current occupational exposures/hazards: No caffeine: Yes PM Subjective & Objective Subjective Subjective:: Patient is a pleasant 73-year-old female who presents today for follow-up. Today she rates her pain a 2 out of 10 however states that the pain does get worse as her activity increases. She states that she has not done much this morning. Patient does state when she is up doing more activity or cooking or doing laundry that the pain does jump to a 6 out of 10. Patient does feel like her last lumbar epidural is really starting to wear off. Patient is stating her pain is an aching, throbbing sensation with numbness and tingling into her legs. She does state the pain is starting to really interfere with her ability perform activities of daily living such as cooking and cleaning. Patient is interested in repeating her prior injection. Patient is currently managed with diclofenac 75 mg twice a day and Flexeril 5 mg at bedtime. She denies any side effects from these medications however she states she only takes the diclofenac once a day. Patient does state that she is seeing a bone density technician at [facility] now and they changed her blood pressure medication and that she feels like this is much better than her prior meds. Patient states she has improved energy and that currently she is on a heart monitor just because she was experiencing some shortness of breath. Patient states that the bone density technician did not think that she was getting as much activity as she needed and that she has started going to the [facility]. Patient does state that her bone density technician is aware of the diclofenac and has not got any problems with continuing this medication. Her Jose Miguel has been reviewed and is appropriate. Review of Systems: General: No recent weight changes, no fever, no sleep disturbances Respiratory: No cough, no shortness of air, no recurring pulmonary infections Cardiovascular/peripheral vascular: No chest pain, no palpitations, no edema, no shortness of breath Gastrointestinal: No new onset incontinence, normal bowel movements reported Genitourinary: No new onset incontinence Musculoskeletal: Low back pain, leg pain Psychiatric: [Normal mood/affect] Neurological: [Denies weakness in extremities], [denies balance issues] Pain at rest (0-10 scale): 6 Objective Objective:: Physical Exam: General: Alert and oriented x3, no acute distress, pleasant and cooperative Lungs: Respirations even and unlabored, symmetrical chest expansion Eyes: PERRL Musculoskeletal: Flexion and extension of lumbar [spine] somewhat guarded secondary to pain, [antalgic gait noted] Neurological: Speech clear, no gross sensory deficit Has patient had previous pain injection?: No Conservative treatment options previously tried: NSAIDS Length of treatment: Longer than 6 weeks and Home exercise plan Length of treatment: Longer than 6 weeks Meds Home Medications and Allergies Home Medications Medication Instructions Recorded Confirmed Type anastrozole 1 mg tablet 1 mg PO DAILY cancer 03/30/19 10/15/23 History aspirin 81 mg tablet,delayed 81 mg PO DAILY Supplement 03/30/19 10/15/23 History release bisoprolol 5 1 each PO DAILY blood pressure 03/30/19 10/15/23 History mg-hydrochlorothiazide 6.25 mg tablet potassium chloride 20 mEq 20 meq PO DAILY Supplement 03/30/19 10/15/23 History tablet,extended release vitamin E 100 unit capsule 100 unit PO DAILY Supplement 03/30/19 10/15/23 History calcium polycarbophil 625 mg 1,250 mg PO DAILY Supplement 04/08/19 10/15/23 History tablet (FiberCon) rosuvastatin 10 mg tablet 10 mg PO DAILY Cholesterol 04/08/19 10/15/23 History metoclopramide HCl 5 mg tablet 5 mg PO ACHS GERD 08/04/20 10/15/23 History gabapentin 300 mg capsule 300 mg PO BID Pain 04/03/21 10/15/23 History oxybutynin chloride 5 mg 5 mg PO DAILY URINATION 04/03/21 10/15/23 History tablet,extended release 24 hr meloxicam 7.5 mg tablet 7.5 mg PO DAILY . #30 tabs 11/28/22 10/15/23 Rx meloxicam 15 mg tablet 15 mg PO DAILY #30 tabs 06/04/23 10/15/23 Rx camphor 3.1 %-methyl salicylate 10 1 patch topical TID 5 days #20 ea 08/18/23 10/15/23 Rx %-menthol 6 % topical patch (Salonpas) cyclobenzaprine 5 mg tablet 5 mg PO HS PRN muscle spasm #30 09/17/23 10/15/23 Rx tabs diclofenac sodium 75 mg 75 mg PO BID #60 tabs 09/17/23 10/15/23 Rx tablet,delayed release New Prescriptions to Start Prescriptions: Allergies Allergy/AdvReac Type Severity Reaction Status Date / Time Penicillins Allergy Intermediate Rash Verified 09/23/23 10:27 morphine AdvReac Mild Confusion Verified 09/23/23 10:27 Assessment and Plan *Assessment and plan (1) Lumbar radiculopathy: Status: Acute Category: Medical Code(s): M54.16 - Radiculopathy, lumbar region (2) Degenerative joint disease (DJD) of lumbar spine: Status: Acute Qualifiers: Spinal osteoarthritis complication: with radiculopathy Qualified Code(s): M47.26 - Other spondylosis with radiculopathy, lumbar region Category: Medical Code(s): M47.816 - Spondylosis without myelopathy or radiculopathy, lumbar region Plan Patient is starting to experience worsening pain in her low back and legs with limited range of motion of her lumbar spine. Patient did previously have her last lumbar epidural in August that did provide 90% relief and has lasted up until the last week or so. I have gone over the risk and benefits of repeat lumbar epidural steroid injection and she would like to proceed forward with this plan of care. Patient is not on any blood thinners. I will also send in 3-month prescriptions of her diclofenac changing it to 75 mg daily and the Flexeril. Patient will be scheduled for a lumbar epidural steroid injection L3- L4 under fluoroscopy. Patient has continued at home exercising and stretching for longer than 6 weeks with no changes. Patient has been instructed to contact the clinic with any concerns before the next appointment. Dr. Partida has reviewed this note and agrees with this plan of care. This note was dictated using voice recognition software and make contain errors or omissions.
== END 2023-12-11 23:59 | disposition home or self-care (01) ==
PROVIDERS: PCP Family Medicine; Visit Provider Nurse Practitioner Family
DX: M47.26 Other spondylosis with radiculopathy, lumbar region (principal); Z79.899 Other long term (current) drug therapy
CPT/HCPCS: 99212; G0463

== ENCOUNTER 2023-12-23 11:49 | Day surgery (SDC) | payer MEDICARE, SELFPAY ==
--- OUTSIDE RECORDS SUMMARY | 2023-12-23 11:52 | XMS_ITS | Continuity of Care Document ---
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 [address] [place] [address], [facility], [place]. tel:[phone] [facility] [place], [address] [place] [address], [facility], tel:[phone] [place] No Information 2 Nita Figueredo. [address] [place] [address], [facility], [place]. tel:[phone] Referring Provider: Brian Montesinos, [address] [place] [address], [facility]. tel:[phone] Office/outpa tient visit,est, mod [facility] [place], [address] [place] [address], [facility], tel:[phone] [place] General orthopedic (chief complaint) Impingement syndrome of right shoulder 2 Trent Torres. [address] [place] [address], [facility], [place]. tel:[phone] Referring Provider: Brian Montesinos, [address] [place] [address], [facility]. tel:[phone] [facility] [address], [facility], [place] tel:[phone] [place] Mally Mcintyre Pain in left kneeNeuralgia and neuritis, unspecified Jul- 2 Joi Ontiveros. [address] [place], [address], [place]. tel:[phone] Referring Provider: Bea Bowles, [address] [place] [address], [facility]. tel:[phone] [facility] [place], [facility] [place], [address], [place] tel:[phone] Dionicio Mcintyre Neuralgia and neuritis, unspecified Jul- 2 Krbenedict Ontiveros. [address] [place], [address], [place]. tel:[phone] Referring Provider: Bea Nita Bowles, [address] [place] [address], [address]. tel:[phone] Office/outpa tient visit,est, mod [facility] [place], [address] [place] [address], [facility], tel:[phone] [facility] general orthopedic (chief complaint) Other low back painNeuralgia and neuritis, unspecified Jun- 2 Billflavio Figueredo. [address] [place] [address], [address], [place]. tel:[phone] Referring Provider: Bea Nita Wilbur, [address] [place] [address], [facility]. tel:[phone] Office/outpa tient visit,est, mod [facility] [place], [address] [place] [address], [facility], [place] tel:[phone] Dionicio Mcintyre Neuralgia and neuritis, unspecifiedOt her low back painPain in left knee Jun- 2 Joi Ontiveros. [address] [place], [address], [place]. tel:[phone] Referring Provider: Bea Bowles, [address] [place] [address], [address]. tel:[phone] Office/outpa tient visit,est, mod [facility] [address], [facility], [place] tel:[phone] [facility] Other bursitis of knee, left kneeUnilatera l primary osteoarthriti s, left knee b- 2 Billflavio Figueredo. [address] [place] [address], [facility], . tel:[phone] Referring Provider: Brian Montesinos, [address] [place] [address], [facility]. tel:[phone] [facility] [place], [address] [place] [address], [facility], tel:[phone] [facility] Other bursitis of knee, left knee 1 Jennifer Abbott. [address] [place] [address], [facility], [place]. tel:[phone] Referring Provider: Bea Bowles, [address] [place] [address], [facility]. tel:[phone] Office/outpa tient visit,est, mod [facility] [address], [facility], tel:[phone] [facility] general orthopedic (chief complaint) Unilateral primary osteoarthriti s, left knee 1 Nita Figueredo. [address] [place] [address], [facility], [place]. tel:[phone] Referring Provider: Bea Bowles, [address] [place] [address], [facility]. tel:[phone] Office/outpa tient visit,est, mod [facility] [address], [facility], [place] tel:[phone] [facility] general orthopedic (chief complaint) Aftercare following joint replacement surgeryPresen ce of left artificial knee jointOther bursitis of knee, left knee Feb- 1 Nita Figueredo. [address] [place] [address], [facility], [place]. tel:[phone] Referring Provider: Brian Montesinos, [address] [place] [address], [facility]. tel:[phone] Office/outpa tient visit,est, mod [facility] [address], [facility], [place] tel:[phone] [facility] general orthopedic (chief complaint) No Information 1 Trent Brina. [address] [place], [address], [place]. tel:[phone] Office/outpa tient visit,est, mod [facility] [place], [facility] [place], [address], [place] tel:[phone] [facility] No Information 9 Roberto Nevarez. [address] [place], [address], [place]. tel:[phone] Referring Provider: Weston Tamez, [address] [place], [address]. tel:[phone] [facility] [place], [facility] [place], [address], [place] tel:[phone] [facility] No Information 9 Joi Ontiveros. [address] [place], [address], [place]. tel:[phone] [facility] [place], [address] [place] [address], [address], [place] tel:[phone] [facility] No Information 9 Joi Ontiveros. [address] [place], [address], [place]. tel:[phone] Office/outpa tient visit,new, mod [facility] [place], [address] [place] [address], [address], [place] tel:[phone] [facility] Radiculopathy , lumbar region 8 Yannick Dobson. [address] [place] [address], [id number], [place]. tel:[phone] Referring Provider: Scar Rodriguez, [address] [place] [address], [address]. tel:[phone] [facility] [place], [facility] [place], [address], tel:[phone] [facility] No Information 8 Joi Ontiveros. [address] [place], [place], [facility], . tel:[phone] Office/outpa tient visit,est, mod [facility] [place], [address] [place], [place], [facility], tel:[phone] [facility] No Information 8 Jennifer Abbott. [address] [place], [place], [facility], . tel:[phone] Office/outpa tient visit,[facility], [address] [place], [place], [facility], tel:[phone] [facility] No Information 8 Jennifer Abbott. [address] [place], [place], [facility], . tel:[phone] Family History Family Member Type Diagnosis Age [...] tion(s) Medicare [facility] [id number] [id number] Social History Type Description Quantity Date Captured Comments Sex Female Smoking Status No Information Chief Complaint And Reason For Visit No Information Reason For Referral Reason For Referral No Information Plan Of Treatment Date Type Action Status Future Order: Radiology Order MR I Lumbar Spine WO Contrast ([id number]), Ordered on: Ordered History Of Present Illness [...]
[2023-12-23 12:10] VITALS: BP 134/67; PULSE 80; RESP 18; O2SAT 96; BMI 33.0
[2023-12-23 12:12] VITALS: BP 151/87; PULSE 88; PULSE 90; RESP 18; O2SAT 96; O2SAT 97
[2023-12-23] MEDS: methylPREDNISolone ACETATE 80MG/ML VIAL 80 MG (12:13)
[2023-12-23 12:19] VITALS: BP 132/67; PULSE 77; RESP 16; O2SAT 97
--- NOTE | 2023-12-23 12:26 | P.PCN_ITS ---
Procedure Date: 12/23/23 Time: 12:00 Anesthesiologist:: Balbir Knott CRNA Complications:: None Pre-procedure Diagnosis:: Degenerative disc lumbar spine multilevels. Lumbar radiculopathy. Lumbar spondylosis. Multilevel lumbar facet arthropathy. Post-procedure Diagnosis:: Same. Indications for Procedure:: Patient is a very pleasant 73-year-old female comes our clinic today for L3-4 lumbar epidural steroid injection. Patient describes low back pain as constant, dull, aching. Patient also reports bilateral hip and leg radicular symptoms. She rates her pain 7/10. Procedure Details:: Procedure: Lumbar epidural steroid injection under fluoroscopy Informed consent was obtained and the risks and benefits of the procedure were explained to the patient. The patient was taken to the procedure room and noninvasive monitors placed, including noninvasive blood pressure cuff and pulse oximeter. The back was viewed using C-arm Fluoroscopy and prepped using Chloraprep as a cleansing solution and the L4-L5 interspace was palpated. Skin a nd subcutaneous tissues were anesthetized using lidocaine 1.5% and a 25-gauge needle. After this, an 18-gauge Touhy epidural needle was placed into the L4-L5 interspace and advanced using fluoroscopic guidance and loss of resistance to air until the epidural space was encountered. After confirmation of needle placement in the epidural space, with dye, a solution containing normal saline, 3 mL and Depo-Medrol 80 mg were incrementally injected into the lumbar epidural space. The patient tolerated the procedure well with no complications. The patient was observed in the Pain Clinic and then discharged home neurologically intact. I was unable to access the L3-4 intervertebral space. The epidural was given at the L4-5 level. Plan and Disposition:: Patient was discharged without incident.
== END 2023-12-23 12:20 | disposition home or self-care (01) ==
LOC: SC.PAINP 11:50
PROVIDERS: PCP Family Medicine; Visit Provider Nurse Anesthetist, Certified Registered
DX: M47.26 Other spondylosis with radiculopathy, lumbar region (principal); M51.36 Other intervertebral disc degeneration, lumbar region
CPT/HCPCS: 62323; J1010

== ENCOUNTER 2024-01-14 14:04 | Outpatient (POV) | payer MEDICARE, SELFPAY ==
--- OUTSIDE RECORDS SUMMARY | 2024-01-14 14:07 | XMS_ITS | Continuity of Care Document ---
Author Organization [facility] Address [address] [place] [address] Phone Care Team Providers Care Tree Marker Name Role Phone Elieser Hauser PA-C Unavailable [...] Copied on Encounter [facility], [address] [place] [address], [facility] [place], tel:[phone] [place] No Information 2 Analisa Mon. [address] [place] [address], [facility], [place]. tel:[phone] [facility], [address] [place] [address], [facility] [place], tel:[phone] [place] No Information 2 Nita Figueredo. [address] [place] [address], [facility], [place]. tel:[phone] Referring Provider: Brian Montesinos, [address] [place] [address], [facility]. tel:[phone] Office/outpa tient visit,est, mod [facility], [address] [place] [address], [facility] [place], tel:[phone] [place] General orthopedic (chief complaint) Impingement syndrome of right shoulder 2 Trent Torres. [address] [place] [address], [facility], [place]. tel:[phone] Referring Provider: Brian Montesinos, [address] [place] [address], [facility]. tel:[phone] [facility] [address], [facility] [place], [place] tel:[phone] [place] Mally Mcintyre Pain in left kneeNeuralgia and neuritis, unspecified Jul- 2 Joi Ontiveros. [address] [place], [address], [place]. tel:[phone] Referring Provider: Bea Bowles, [address] [place] [address], [facility]. tel:[phone] [facility], [facility] [place], [address], [place] tel:[phone] Dionicio Mcintyre Neuralgia and neuritis, unspecified Jul- 2 Krbenedict Ontiveros. [address] [place], [address], [place]. tel:[phone] Referring Provider: Bea Nita Bowles, [address] [place] [address], [address]. tel:[phone] Office/outpa tient visit,est, mod [facility], [address] [place] [address], [facility] [place], tel:[phone] [facility] general orthopedic (chief complaint) Other low back painNeuralgia and neuritis, unspecified Jun- 2 Billflavio Figueredo. [address] [place] [address], [address], [place]. tel:[phone] Referring Provider: Bea Nita Wilbur, [address] [place] [address], [facility]. tel:[phone] Office/outpa tient visit,est, mod [facility], [address] [place] [address], [facility] [place], [place] tel:[phone] Dionicio Mcintyre Neuralgia and neuritis, unspecifiedOt her low back painPain in left knee Jun- 2 Joi Ontiveros. [address] [place], [address], [place]. tel:[phone] Referring Provider: Bea Bowles, [address] [place] [address], [address]. tel:[phone] Office/outpa tient visit,est, mod [facility] [address], [facility], [place] tel:[phone] [facility]) Other bursitis of knee, left kneeUnilatera l primary osteoarthriti s, left knee b- 2 Billflavio Figueredo. [address] [place] [address], [facility], . tel:[phone] Referring Provider: Brian Montesinos, [address] [place] [address], [facility]. tel:[phone] [facility], [address] [place] [address], [facility], tel:[phone] [facility] Other bursitis of knee, left knee 1 Jennifer Abbott. [address] [place] [address], [facility], [place]. tel:[phone] Referring Provider: Bea Bowles, [address] [place] [address], [facility]. tel:[phone] Office/outpa tient visit,est, mod [facility] [address], [facility], tel:[phone] [facility] general orthopedic (chief complaint) Unilateral primary osteoarthriti s, left knee 1 Nita Figueredo. [address] [place] [address], [facility], [place]. tel:[phone] Referring Provider: Bea Bowles, [address] [place] [address], [facility]. tel:[phone] Office/outpa tient visit,est, mod [facility] [address], [facility], [place] tel:[phone] [facility] general orthopedic (chief complaint) Aftercare following joint replacement surgeryPresen ce of left artificial knee jointOther bursitis of knee, left knee Feb- 1 Nita Figueredo. [address] [place] [address], [facility], [place]. tel:[phone] Referring Provider: Brian Montesinos, [address] [place] [address], [facility]. tel:[phone] Office/outpa tient visit,est, mod [facility] [address], [facility], [place] tel:[phone] [facility] general orthopedic (chief complaint) No Information 1 Trent Brian. [address] [place], [address], [place]. tel:[phone] Office/outpa tient visit,est, mod [facility], [facility] [place], [address], [place] tel:[phone] [facility] No Information 9 Roberto Nevarez. [address] [place], [address], [place]. tel:[phone] Referring Provider: Weston Tamez, [address] [place], [address]. tel:[phone] [facility], [facility] [place], [address], [place] tel:[phone] [facility] No Information 9 Joi Ontiveros. [address] [place], [address], [place]. tel:[phone] [facility], [address] [place] [address], [address], [place] tel:[phone] [facility] No Information 9 Joi Ontiveros. [address] [place], [address], [place]. tel:[phone] Office/outpa tient visit,new, mod [facility], [address] [place] [address], [address], [place] tel:[phone] [facility] Radiculopathy , lumbar region 8 Yannick Dobson. [address] [place] [address], [id number], [place]. tel:[phone] Referring Provider: Scar Rodriguez, [address] [place] [address], [address]. tel:[phone] [facility], [facility] [place], [address], tel:[phone] [facility] No Information 8 Joi Ontiveros. [address], [place], [facility], . tel:[phone] Office/outpa tient visit,est, mod [facility], [address] [place], [place], [facility] [place], tel:[phone] [facility] No Information 8 Jennifer Abbott. [address] [place], [place], [facility], . tel:[phone] Office/outpa tient visit,[facility], [address] [place], [place], [facility], tel:[phone] [facility] No Information 8 Jennifer Abbott. [address] [place], [place], [facility], . tel:[phone] Family History Family Member Type Diagnosis Age At Onset Mother Problem (finding) Hypertension Father Problem (finding) Congenital heart diseas e Father Problem (finding) Hypertension Father Problem (finding) Thyroid disorder Father Problem (finding) Hyperlipidemia Mother Problem (finding) Cancer Father Problem (finding) Stroke Sister Problem (finding) Cancer Sister Problem (finding) Hypertension Payers Payer name Insurance type Covered democrat ID Authoriza tion(s) Medicare [facility] [id number] [id number] Social History Type Description Quantity Date Captured Comments Sex Female Smoking Status No Information Chief Complaint And Reason For Visit No Information Reason For Referral Reason For Referral No Information Plan Of Treatment Date Type Action Status Future Order: Radiology Order MR I Lumbar Spine WO Contrast ([id number]), Ordered on: Ordered History Of Present Illness [...]
[2024-01-14 15:07] VITALS: BP 168/70; PULSE 61; RESP 16; O2SAT 99; BMI 32.3
--- NOTE | 2024-01-14 15:12 | A.OFFVIS_ITS ---
[facility] Disclaimer: The information contained in this section may have been updated after the patient was seen, as this information can be updated by other users. Medical History Hypertension Arthritis Hyperlipidemia Surgical History History of bilateral knee replacement Family History Other No significant family history Social History Smoking Status: Never smoker second hand exposure: No alcohol intake: never substance use type: denies use current occupational status: unemployed Travel in the last 8 weeks: None household members: spouse housing: house current occupation: [employer] current occupational exposures/hazards: No caffeine: Yes PM Subjective & Objective Subjective Subjective:: Patient is a pleasant 73-year-old female who presents today for follow-up of lumbar epidural steroid injection of L4-L5 on 12/23/2023. Today she rates her pain a 2 out of 10. Patient does state that she has had at least 50% improvement following this injection and feels like it is still helping. Quang santos does state that she has still been using her compounded cream. She does also state that she has started cardiac rehab. Patient denies any other changes. Patient does state that with these injection she does feel much more functional and able to do more. Patient is currently managed with 75 mg daily and Flexeril and was given a 3-month supply at her last visit. Her Jose Miguel has been reviewed and is appropriate. Review of Systems: General: No recent weight changes, no fever, no sleep disturbances Respiratory: No cough, no shortness of air, no recurring pulmonary infections Cardiovascular/peripheral vascular: No chest pain, no palpitations, no edema, no shortness of breath Gastrointestinal: No new onset incontinence, normal bowel movements reported Genitourinary: No new onset incontinence Musculoskeletal: Low back pain Psychiatric: [Normal mood/affect] Neurological: [Denies weakness in extremities], [denies balance issues] Pain at rest (0-10 scale): 2 Objective Objective:: Physical Exam: General: Alert and oriented x3, no acute distress, pleasant and cooperative Lungs: Respirations even and unlabored, symmetrical chest expansion Eyes: PERRL Musculoskeletal: Flexion and extension of lumbar [spine] somewhat guarded secondary to pain, [antalgic gait noted] Neurological: Speech clear, no gross sensory deficit Has patient had previous pain injection?: Yes Percent improvement in pain since last injection: 50% Conservative treatment options previously tried: Home exercise plan Length of treatment: Longer than 6 Meds Home Medications and Allergies Home Medications ?Medication ?Instructions ?Recorded ?Confirmed ?Type anastrozole 1 mg tablet 1 mg PO DAILY cancer 03/30/19 01/14/24 History aspirin 81 mg tablet,delayed 81 mg PO DAILY Supplement 03/30/19 01/14/24 History release bisoprolol 5 1 each PO DAILY blood pressure 03/30/19 01/14/24 History mg-hydrochlorothiazide 6.25 mg tablet potassium chloride 20 mEq 20 meq PO DAILY Supplement 03/30/19 01/14/24 History tablet,extended release vitamin E 100 unit capsule 100 unit PO DAILY Supplement 03/30/19 01/14/24 History calcium polycarbophil 625 mg 1,250 mg PO DAILY Supplement 04/08/19 01/14/24 History tablet (FiberCon) rosuvastatin 10 mg tablet 10 mg PO DAILY Cholesterol 04/08/19 01/14/24 History metoclopramide HCl 5 mg tablet 5 mg PO ACHS GERD 08/04/20 01/14/24 History gabapentin 300 mg capsule 300 mg PO BID Pain 04/03/21 01/14/24 History oxybutynin chloride 5 mg 5 mg PO DAILY URINATION 04/03/21 01/14/24 History tablet,extended release 24 hr meloxicam 7.5 mg tablet 7.5 mg PO DAILY . #30 tabs 11/28/22 01/14/24 Rx meloxicam 15 mg tablet 15 mg PO DAILY #30 tabs 06/04/23 01/14/24 Rx camphor 3.1 %-methyl salicylate 10 1 patch topical TID 5 days #20 ea 08/18/23 01/14/24 Rx %-menthol 6 % topical patch (Salonpas) cyclobenzaprine 5 mg tablet 5 mg PO HS PRN muscle spasm #30 12/11/23 01/14/24 Rx tabs diclofenac sodium 75 mg 75 mg PO DAILY #30 tabs 12/11/23 01/14/24 Rx tablet,delayed release New Prescriptions to Start Prescriptions: Allergies Allergy/AdvReac Type Severity Reaction Status Date / Time Penicillins Allergy Intermediate Rash Verified 12/23/23 12:16 morphine AdvReac Mild Confusion Verified 12/23/23 12:16 Assessment and Plan *Assessment and plan (1) Lumbar radiculopathy: Status: Acute Category: Medical Code(s): M54.16 - Radiculopathy, lumbar region (2) Degenerative joint disease (DJD) of lumbar spine: Status: Acute Qualifiers: Spinal osteoarthritis complication: with radiculopathy Qualified Code(s): M47.26 - Other spondylosis with radiculopathy, lumbar region Category: Medical Code(s): M47.816 - Spondylosis without myelopathy or radiculopathy, lumbar region Plan Patient has had significant improvement following her lumbar epidural and does not require any additional injection therapy at this time. Patient does typically get her injections at the L3-L4 level however they were not able to access this vertebra during the time of the injection. We will follow-up with this at future visits. Patient will return to clinic in 2 months for reevaluation of symptoms and plan of care. Patient has been instructed to contact the clinic with any concerns before the next appointment. Dr. Partida has reviewed this note and agrees with this plan of care. This note was dictated using voice recognition software and make contain errors or omissions. All injections are used with Lidocaine or Bupivacaine and Depo Medrol.
== END 2024-01-14 23:59 | disposition home or self-care (01) ==
LOC: SC.PAIN 14:05
PROVIDERS: PCP Family Medicine; Visit Provider Nurse Practitioner Family
DX: M47.26 Other spondylosis with radiculopathy, lumbar region; Z79.899 Other long term (current) drug therapy; Z96.649 Presence of unspecified artificial hip joint; Z96.653 Presence of artificial knee joint, bilateral
CPT/HCPCS: 99212; G0463

== ENCOUNTER 2024-03-11 10:23 | Outpatient (POV) | payer MEDICARE, SELFPAY ==
--- OUTSIDE RECORDS SUMMARY | 2024-03-11 10:26 | XMS_ITS ---
Author Organization [facility] Address [address] [facility] [address] [phone] Care Team Providers Care Delivery Architect Name Role Phone Carlos Manuel Barragan Primary Care Provider [phone] ALLERGIES Allergen (clinical drug ingredient) Drug/Non Drug Allergy documented on EMR Reaction Allergy Type Onset Date Status Substance with penicillin structure and antibacterial mechanism of action (substance) Penicillins Unknown Drug Allergy Active REASON FOR VISIT checkup MEDICATIONS Medication SIG (Take, Route, Frequency, Duration) Notes Start Date End Date Status Crestor 10 MG 1 tab(s) orally once a day (at bedtime) Active Metoclopramide HCl 5 MG 1 tab(s) orally 4 times a day (before meals and at bedtime) for 30 day(s) Not-Taking Fluticasone Propionate 50 MCG/ACT 1 spray(s) in each nostril once a day for 30 day(s) 05/28/2022 Active ZyrTEC Allergy 10 MG 1 tab(s) orally once a day for 30 day(s) Active Aspir-Low 81 MG 1 tab(s) orally once a day for 30 day(s) Active Vitamin D3 50 MCG (2000 UT) 1 cap(s) orally once a day Active Potassium Chloride ER 1 P.O. Q DAY *Please re view and pick correct strength-formulat ion from Affinnovaspan options. If intended option is not shown, discontinue and re-order from Quick Search* Active Asmanex HFA 50 MCG/INH DIRECTED INHALED 2 TIMES A DAY *Please review and pick correct strength-formulat ion from Medispan options. If intended option is not shown, discontinue and re-order from Quick Search* Active Meloxicam 7.5 MG 1 tablet Orally Once a day for 30 day(s) Not-Taking Diclofenac Sodium 75 MG 1 tablet as needed Orally Twice a day Active Montelukast Sodium 10 MG 1 tab(s) orally once a day for 90 days Active Metoprolol Succinate 50 MG 1 capsule Orally Once a day for 30 day(s) Active Centrum Silver - 1 tab(s) orally once a day Not-Taking Eliquis 5 MG as directed orally 2 times a day Not-Taking Gabapentin 300 MG 1 cap(s) orally qhs Not-Taking Omeprazole 40 MG 1 cap(s) orally once a day for 30 day(s) 12/15/2018 Not-Taking Ziac 5-6.25 MG 1/2 tab orally once a day Not-Taking valACYclovir HCl 500 MG TAKE 2 TABLETS BY MOUTH TWICE DAILY FOR 1 DAY. Active PROBLEMS Problem Type ICD Code Onset Dates Problem Status W/U Status Risk SNOMED Code Notes Problem History of aortic aneurysm (Z86.79) Active confirmed History of aortic aneurysm (305521943) VITAL SIGNS Weight 205.2 lbs 12/18/2023 Blood pressure systolic 136 mm Hg 12/18/19 24 Blood pressure diastolic 80 mm Hg 024 Heart Rate 80 /min 12/18/2023 Height 64.50 in 12/18/2023 BMI 34.67 kg/m2 12/18/2023 Encounters Encounter Location Date Provider Diagnosis [facility] [address], [place] [phone] 12/18/2023 Carlos Manuel Barragan Seasonal allergic rhinitis, unspecified allergic rhinitis trigger J30.2 ASSESSMENTS Encounter Date Diagnosis Assessment Notes Treatment Notes Treatment Clinical Notes 12/18/2023 Seasonal allergic rhinitis, unspecified allergic rhinitis trigger (ICD-10 - J30.2) PLAN OF TREATMENT Medication Medication Name Sig Start Date Stop Date Notes Montelukast Sodium 10 MG 1 tab(s) orally once a day for 90 days Next Appt Details Follow Up: 6 Months, Reason: Progress Notes * Examination Category Sub-Category Detail Notes Cardiology Lungs: clear, no rales or wheezes HEENT: unremarkable Heart sounds: RRR, normal S1, S2 Abdomen: positive BS, soft, n ontender Carotid upstroke: normal, no bruits Extremities: no leg edema Murmur, click , gallop: none General Appearance: pleasant, NAD
--- OUTSIDE RECORDS SUMMARY | 2024-03-11 10:26 | XMS_ITS | Continuity of Care Document ---
Author Organization [facility] Address [address] [place] [address] Phone Care Team Providers Care Cardiographer Name Role Phone Elieser Hauser PA-C Unavailable [...] day with food 10 MEQ - Active ARIMIDEX (unknown strength) take 1 [...] Providers Copied on Encounter [facility] [place], [address] [place] [address], [facility], tel:[phone] [place] No Information 2 Analisa Mon. [address] [place] [address], [facility], [place]. tel:[phone] [facility] [place], [address] [place] [address], [facility], tel:[phone] [place] No Information 2 Nita Figueredo. [address] [place] [address], [facility], [place]. tel:[phone] Referring Provider: Brian Montesinos, [address] [place] [address], [facility]. tel:[phone] Office/outpa tient visit,est, mod [facility] [place], [address] [place] [address], [facility], tel:[phone] [place] General orthopedic (chief complaint) Impingement syndrome of right shoulder 2 Trent Torres. [address] [place] [address], [facility], [place]. tel:[phone] Referring Provider: Brian Montesinos, [address] [place] [address], [facility]. tel:[phone] [facility] [address], [facility], [place] tel:[phone] [place] Mally Mcintyre Pain in left kneeNeuralgia and neuritis, unspecified Jul- 2 Joi Ontiveros. [address] [place], [address], [place]. tel:[phone] Referring Provider: Bea Bowles, [address] [place] [address], [facility]. tel:[phone] [facility] [place], [facility] [place] [place], [address], [place] tel:[phone] Dionicio Mcintyre Neuralgia and neuritis, unspecified Jul- 2 Krbenedict Ontiveros. [address] [place], [address], [place]. tel:[phone] Referring Provider: Bea Nita Bowles, [address] [place] [address], [address]. tel:[phone] Office/outpa tient visit,est, mod [facility] [place], [address] [place] [address], [facility], tel:[phone] [facility] general orthopedic (chief complaint) Other low back painNeuralgia and neuritis, unspecified Jun- 2 Billflavio Figueredo. [address] [place] [address], [address], [place]. tel:[phone] Referring Provider: Bea Nita Wilbur, [address] [place] [address], [facility]. tel:[phone] Office/outpa tient visit,est, mod [facility] [place], [address] [place] [address], [facility], [place] tel:[phone] Dionicio Mcintyre Neuralgia and neuritis, unspecifiedOt her low back painPain in left knee Jun- 2 Joi Ontiveros. [address] [place], [address], [place]. tel:[phone] Referring Provider: Bea Bowles, [address] [place] [address], [address]. tel:[phone] Office/outpa tient visit,est, mod [facility] [address], [facility], [place] tel:[phone] [facility] (chief complaint) Other bursitis of knee, left kneeUnilatera l primary osteoarthriti s, left knee b- 2 Billflavio Figueredo. [address] [place] [address], [facility], . tel:[phone] Referring Provider: Brian Montesinos, [address] [place] [address], [facility]. tel:[phone] [facility] [place], [address] [place] [address], [facility], tel:[phone] [facility] Other bursitis of knee, left knee 1 Jennifer Abbott. [address] [place] [address], [facility], [place]. tel:[phone] Referring Provider: Bea Bowles, [address] [place] [address], [facility]. tel:[phone] Office/outpa tient visit,est, mod [facility] [address], [facility], tel:[phone] [facility] general orthopedic (chief complaint) Unilateral primary osteoarthriti s, left knee 1 Nita Figueredo. [address] [place] [address], [facility], [place]. tel:[phone] Referring Provider: Bea Bowles, [address] [place] [address], [facility]. tel:[phone] Office/outpa tient visit,est, mod [facility] [address], [facility], [place] tel:[phone] [facility] general orthopedic (chief complaint) Aftercare following joint replacement surgeryPresen ce of left artificial knee jointOther bursitis of knee, left knee Feb- 1 Nita Figueredo. [address] [place] [address], [facility], [place]. tel:[phone] Referring Provider: Brian Montesinos, [address] [place] [address], [facility]. tel:[phone] Office/outpa tient visit,est, mod [facility] [address], [facility], [place] tel:[phone] [facility] general orthopedic (chief complaint) No Information 1 Trent Brian. [address] [place], [address], [place]. tel:[phone] Office/outpa tient visit,est, mod [facility] [place], [facility] [place], [address], [place] tel:[phone] [facility] No Information 9 Roberto Nevarez. [address] [place], [address], [place]. tel:[phone] Referring Provider: Weston Tamez, [address] [place], [address]. tel:[phone] [facility] [place], [facility] [place], [address], [place] tel:[phone] [facility] No Information 9 Joi Ontiveros. [address] [place], [address], [place]. tel:[phone] [facility] [place], [address] [place] [address], [address], [place] tel:[phone] [facility] No Information 9 Joi Ontiveros. [address] [place], [address], [place]. tel:[phone] Office/outpa tient visit,new, mod [facility] [place], [address] [place] [address], [address], [place] tel:[phone] [facility] Radiculopathy , lumbar region 8 Yannick Dobson. [address] [place] [address], [id number], [place]. tel:[phone] Referring Provider: Scar Rodriguez, [address] [place] [address], [address]. tel:[phone] [facility] [place], [facility] [place], [address], tel:[phone] [facility] No Information 8 Joi Ontiveros. [address] [place], [place], [facility], . tel:[phone] Office/outpa tient visit,est, mod [facility] [place], [address] [place], [place], [facility], tel:[phone] [facility] No Information 8 Jennifer Abbott. [address] [place], [place], [facility], . tel:[phone] Office/outpa tient visit,[facility], [address] [place], [place], [facility], tel:[phone] [facility] No Information 8 Jennifer Abbott. [address] [place], [place], [facility], . tel:[phone] Family History Family Member Type Diagnosis Age At Onset Mother Problem (finding) Hypertension Father Problem (finding) Congenital heart diseas e Father Problem (finding) Hypertension Father Problem (finding) Thyroid disorder Father Problem (finding) Hyperlipidemia Mother Problem (finding) Cancer Father Problem (finding) Stroke Sister Problem (finding) Cancer Sister Problem (finding) Hypertension Payers Payer name Insurance type Covered constitution party ID Authoriza tion(s) Medicare [facility] [id number] [facility] [id number] Social History Type Description Quantity Date Captured Comments Sex Female Smoking Status No Information Chief Complaint And Reason For Visit No Information Reason For Referral Reason For Referral No Information Plan Of Treatment Date Type Action Status Future Order: Radiology Order MR I Lumbar Spine WO Contrast (46823), Ordered on: Ordered History Of Present Illness [...]
--- OUTSIDE RECORDS SUMMARY | 2024-03-11 10:26 | XMS_ITS ---
Author Organization [facility] Address [address] [facility] [address] [place] [id number] Care Team Providers Care Chainsaw Mechanic Name Role Phone Carlos Manuel Barragan Primary Care Provider REASON FOR VISIT Message MEDICATIONS Medication SIG (Take, Route, Frequency, Duration) Notes Start Date End Date Status Cefuroxime Axetil 500 MG 1 tablet Orally every 12 hrs for 10 day(s) 02/23/2024 Active Encounters Encounter Location Date Provider Diagnosis [facility] [address] [place] [id number] 02/23/2024 Carlos Manuel Barragan Otitis media H66.90 ASSESSMENTS Encounter Date Diagnosis Assessment Notes Treatment Notes Treatment Clinical Notes 02/23/2024 Otitis media (ICD-10 - H66.90) PLAN OF TREATMENT Medication Medication Name Sig Start Date Stop Date Notes Cefuroxime Axetil 500 MG 1 tablet Orally every 12 hrs for 10 day(s) 02/23/2024
--- OUTSIDE RECORDS SUMMARY | 2024-03-11 10:26 | XMS_ITS | Patient Health Record ---
[facility] [address] [place] [address] [id number] Care Team Providers Care Contract Programmer Name Role Phone Carlos Manuel Barragan Primary Care Provider Nettie Godinez Unavailable [phone] ALLERGIES Allergen (clinical drug ingredient) Drug/Non Drug Allergy documented on EMR Reaction Allergy Type Onset Date Status Substance with penicillin structure and antibacterial mechanism of action (substance) Penicillins Unknown Drug Allergy Active RESULTS Component Value Reference Range Notes CBC Fingerstick [...] - 38 plat 184 100 - 400 MEDICATIONS Medication SIG (Take, Route, Frequency, Duration) Notes Start Date End Date Status Metoprolol Succinate 50 MG 1 capsule Orally Once a day for 30 day(s) Active Metoclopramide HCl 5 MG 1 tab(s) orally 4 times a day (before meals and at bedtime) for 30 day(s) Not-Taking Diclofenac Sodium 75 MG 1 tablet as needed Orally Twice a day Active Asmanex HFA 50 MCG/INH DIRECTED INHALED 2 TIMES A DAY *Please review and pick correct strength-formulat ion from [employer] options. If intended option is not shown, discontinue and re-order from Quick Search* Active Potassium Chloride ER 1 P.O. Q DAY *Please re view and pick correct strength-formulat ion from [employer] options. If intended option is not shown, discontinue and re-order from Quick Search* Active ZyrTEC Allergy 10 MG 1 tab(s) orally once a day for 30 day(s) Active Fluticasone Propionate 50 MCG/ACT 1 spray(s) in each nostril once a day for 30 day(s) 05/28/2022 Active valACYclovir HCl 500 MG TAKE 2 TABLETS BY MOUTH TWICE DAILY FOR 1 DAY. Not-Taking Cefuroxime Axetil 500 MG 1 tablet Orally every 12 hrs for 10 day(s) 02/23/2024 Active Valsartan 160 MG 1 tablet Orally Once a day for 30 day(s) Active Montelukast Sodium 10 MG 1 tab(s) orally once a day for 90 days Active Vitamin D3 50 MCG (2000 UT) 1 cap(s) orally once a day Active Crestor 10 MG 1 tab(s) orally once a day (at bedtime) Active Aspir-Low 81 MG 1 tab(s) orally once a day for 30 day(s) Active IMMUNIZATIONS Vaccine Route Administration Date Status Comme nts COVID 19 Moderna Unknown 06/13/2020 Administered Flublok IM Intramuscular 01/25/2021 Administered Fluzone High Dose (65yr and older) IM Intramuscular 02/28/2022 Administered Fluzone High Dose (65yr and older) IM Intramuscular 04/09/2023 Administered Hepatitis A (adult) IM Intramuscular 02/17/2018 Administer ed Prevnar (PCV20) IM Intramuscular 02/28/2022 Administered Shingrix IM Intramuscular 03/16/2019 Administered Shingrix Unknown 02/14/2020 Administered Shingrix Unknown 02/14/2020 Administered PNEUMOVAX 23 VACCINE IM Intramuscular 07/21/2020 Administe red Hepatitis A (adult) Unknown 08/18/2018 Administered DT, 7 YEARS OR OLDER Unknown 07/29/1996 Administered COVID 19 Moderna Unknown 03/19/2021 Administered COVID 19 Moderna Unknown 06/12/2020 Administered COVID 19 Moderna Unknown 05/16/2020 Administered SOCIAL HISTORY Sex Assigned At : Social History Observation Description Sex Assigned At Unknown PROBLEMS Problem Type ICD Code Onset Dates Problem Status W/U Status Risk SNOMED Code Notes Problem Malignant neoplasm of unspecified site of left female breast (C50.912) Active confirmed 929591322 Problem Vitamin D deficiency (E55.9) Active confirmed 12735391 Problem Essential hypertension (I10) Active confirmed 15569535 Problem Obstructive sleep apnea (adult) (pediatric) (G47.33) Active confirmed 87061049 Problem Gastroesophageal reflux disease without esophagitis (K21.9) Active confirmed 520661420 Problem Allergic rhinitis (J30.9) Active confirmed 14684076 Problem Primary osteoarthritis of left knee (M17.12) Active confirmed 675125233970120 Problem Dyslipidemia (E78.5) Active confirmed 694367789 Problem Status post left mastectomy (Z90.12) Active confirmed 048925614 Problem Seasonal allergic rhinitis, unspecified allergic rhinitis trigger (J30.2) Active confirmed 560319411 Problem Oropharyngeal dysphagia (R13.12) Active confirmed 87795753 Problem History of aortic aneurysm (Z86.79) Active confirmed History of aortic aneurysm (136420567) 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 confirmed 808974558 VITAL SIGNS Heart Rate 85 /min 02/23/2024 Blood pressure diastolic 60 mm Hg 02/23/2024 Height 64.50 in 02/23/2024 Blood pressure systolic 110 mm Hg 02/23/2024 Weight 174 lbs 02/23/2024 BMI 29.40 kg/m2 02/23/2024 Encounters Encounter Location Date Provider Diagnosis [facility] [facility] [address] [place] [id number] 12/18/2023 R Bassem Barragan Seasonal allergic rhinitis, unspecified allergic rhinitis trigger J30.2 [facility] [address] [place], [place] [id number] 02/23/2024 Nettie Godinez Otitis media H66.90 [facility] [address] [place], [place] [id number] 04/09/2023 Carlos Manuel Barragan Encounter for immunization Z23 [facility] [address] [place] [id number] 02/23/2024 R Bassem Barragan Otitis media H66.90 ASSESSMENTS Encounter Date Diagnosis Assessment Notes Treatment Notes Treatment Clinical Notes 04/09/2023 Encounter for immunization (ICD-10 - Z23) 02/23/2024 Otitis media (ICD-10 - H66.90) fluids, rest, supportive measures for fever/symptom relief 02/23/2024 Otitis media (ICD-10 - H66.90) 12/18/2023 Seasonal allergic rhinitis, unspecified allergic rhinitis trigger (ICD-10 - J30.2) PLAN OF TREATMENT No Information Insurance Providers Payer Name Payer Address Payer Phone Subscriber Number Group Number Insured Name Patient Relationship to Insured Coverage Start Date Coverage End Date MEDICARE PART B [address] [address] [place] [address] [id number] DIAMANTE EDOUARD Self - patient is the insured [employer] [address] [address] [place] [address] [id number] DIAMANTE EDOUARD Self - patient is the insured MEDICATIONS ADMINISTERED Medication Instructions Date of Administration Dosage Notes Depo- Medrol 40 mg/ml 03/22/2011 1.5 mL Dexamethasone 09/25/2006 1 mL Dexamethasone 07/29/2008 1 mL Dexamethasone 04/11/2009 1 mL Dexamethasone 08/10/2009 1 mL Dexamethasone 06/04/2013 Dexamethasone 06/08/2013 1 mL Dexamethasone 04/08/2014 1 mL Dexamethasone 09/11/2015 1 mL Dexamethasone 05/21/2016 1 mL Dexamethasone 04/20/2018 1 mL Dexamethasone 04/28/2018 1 mL Dexamethasone 06/28/2019 1 mL Dexamethasone 06/27/2009 1 mL Dexamethasone 10/24/2007 1 mL Depo- Medrol 40 mg/ml 04/23/2011 1 mL Dexamethasone 09/02/2008 1 mL MEDICAL (GENERAL) HISTORY Medical History History ICD Code KNEE TORN MENISCUS (2005) allergic rhinitis Hypertension Left breast cancer, Dx: 2015, Grade 1 lo bular carcinoma Declined pneumonvax - 02/2016 DIOGENES - CPAP use dyslipidemia Saccular aneurysm of descending thoracic aorta, 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 Muse 04/26/2022 RT Brachial Artery Thrombectomy- Dr. Leon cedeno 05/15/2022 Hospitalization History Reason Date(Month/Year) Dehydration 08/2006 Cough, Congestion- [facility] 07/14/2017
--- OUTSIDE RECORDS SUMMARY | 2024-03-11 10:26 | XMS_ITS ---
Author Organization [facility] Address [address] [id number] Care Team Providers Care Soa Integration Architect Name Role Phone Carlos Manuel Barragan Primary Care Provider Nettie Godinez Unavailable [phone] ALLERGIES Allergen (clinical drug ingredient) Drug/Non Drug [...] 400 REASON FOR VISIT Possible Sinus Infection MEDICATIONS Medication SIG (Take, Route, Frequency, Duration) [...] once a day for 90 days Active Metoclopramide HCl 5 MG 1 tab(s) orally 4 times a day (before meals and at bedtime) for 30 day(s) Not-Taking Vitamin D3 50 MCG (2000 UT) 1 cap(s) orally once a day Active Crestor 10 MG 1 tab(s) orally once a day (at bedtime) Active Aspir-Low 81 MG 1 tab(s) orally once a day for 30 day(s) Active Asmanex HFA 50 MCG/INH DIRECTED INHALED 2 TIMES A DAY *Please review and pick correct strength-formulat ion from [facility] options. If intended option is not shown, discontinue and re-order from Quick Search* Active Potassium Chloride ER 1 P.O. Q DAY *Please re view and pick correct strength-formulat ion from [facility] options. If intended option is not shown, discontinue and re-order from Quick Search* Active Valsartan 160 MG 1 tablet Orally Once a day for 30 day(s) Active Metoprolol Succinate 50 MG 1 capsule Orally Once a day for 30 day(s) Active Diclofenac Sodium 75 MG 1 tablet as needed Orally Twice a day Active Cefuroxime Axetil 500 MG 1 tablet Orally every 12 hrs for 10 day(s) 02/23/2024 Active VITAL SIGNS Weight 174 lbs 02/23/2024 Blood pressure systolic 110 mm Hg 02/23/20 24 Blood pressure diastolic 60 mm Hg 024 Heart Rate 85 /min 02/23/2024 Height 64.50 in 02/23/2024 BMI 29.40 kg/m2 02/23/2024 Encounters Encounter Location Date Provider Diagnosis [facility] [address] [facility] [address] [place] [id number] 02/23/2024 Nettie Godinez Otitis media H66.90 ASSESSMENTS Encounter Date Diagnosis Assessment Notes Treatment Notes Treatment Clinical Notes 02/23/2024 Otitis media (ICD-10 - H66.90) fluids, rest, supportive measures for fever/symptom relief PLAN OF TREATMENT Medication Medication Name Sig Start Date Stop Date Notes Cefuroxime Axetil 500 MG 1 tablet Orally every 12 hrs for 10 day(s) 02/23/2024 Treatment Notes Assessment Notes Otitis media fluids, rest, suppor tive measures for fever/symptom relief Next Appt Details Follow Up: prn, Reason: Progress Notes * Examination Category Sub-Category Detail Notes ENT/Respiratory Oral cavity : no erythema or e xudate seen on pharynx Ears: left TM pink and rig ht with fluid Neck : no cervical lymphade nopathy Heart : RRR Lungs: CTAB A&P General Appearance: well nourished and h ydrated, NAD, alert, active Nose : nares patent Eyes: sclera and conjuncti va clear History and Physical Notes * HPI (History of Present Illness) Category Sub-Category Detail Notes ENT/respiratory sore throat ear pain cough Fever post nasal drainage headache chest congestion rhinorrhea smoking ear stopped up
[2024-03-11 10:41] VITALS: BP 128/79; PULSE 75; RESP 18; O2SAT 99; BMI 30.9
--- NOTE | 2024-03-11 11:01 | A.OFFVIS_ITS ---
[facility] Disclaimer: The information contained in this section may have been updated after the patient was seen, as this information can be updated by other users. Medical History Hypertension Arthritis Hyperlipidemia Surgical History History of bilateral knee replacement Family History Other No significant family history Social History Smoking Status: Never smoker second hand exposure: No alcohol intake: never substance use type: denies use current occupational status: other Travel in the last 8 weeks: None household members: spouse housing: house current occupation: [employer] current occupational exposures/hazards: No caffeine: Yes PM Subjective & Objective Subjective Subjective:: Patient is a pleasant 73-year-old female who presents today for 2-month follow- up. Today she rates her pain a 5 out of 10. Patient denies any new trauma or injury. Patient does state that she has still been doing cardiac rehab and that she has been doing her swim classes and has lost approximately 14 pounds. Patient is also scheduled for foot surgery on the of this month at [facility] to remove some bunions. Patient denies any other changes. Patient had her last lumbar epidural L4-L5 back and November and did get 50% improvement. Patient states that she definitely feels like before winter comes on that she will need an additional injection. Patient is currently managed with diclofenac 75 mg daily and Flexeril 5 mg at bedtime. Her Jose Miguel has been reviewed and is appropriate. Review of Systems: General: No recent weight changes, no fever, no sleep disturbances Respiratory: No cough, no shortness of air, no recurring pulmonary infections Cardiovascular/peripheral vascular: No chest pain, no palpitations, no edema, no shortness of breath Gastrointestinal: No new onset incontinence, normal bowel movements reported Genitourinary: No new onset incontinence Musculoskeletal: Low back pain, leg pain Psychiatric: [Normal mood/affect] Neurological: [Denies weakness in extremities], [denies balance issues] Pain at rest (0-10 scale): 5 Objective Objective:: Physical Exam: General: Alert and oriented x3, no acute distress, pleasant and cooperative Lungs: Respirations even and unlabored, symmetrical chest expansion Eyes: PERRL Musculoskeletal: Flexion and extension of lumbar [spine] somewhat guarded secondary to pain, [antalgic gait noted] Neurological: Speech clear, no gross sensory deficit Has patient had previous pain injection?: No Conservative treatment options previously tried: Home exercise plan Length of treatment: Longer than 6 weeks Meds Home Medications and Allergies Home Medications ?Medication ?Instructions ?Recorded ?Confirmed ?Type anastrozole 1 mg tablet 1 mg PO DAILY cancer 03/30/19 01/14/24 History aspirin 81 mg tablet,delayed 81 mg PO DAILY Supplement 03/30/19 01/14/24 History release bisoprolol 5 1 each PO DAILY blood pressure 03/30/19 01/14/24 History mg-hydrochlorothiazide 6.25 mg tablet potassium chloride 20 mEq 20 meq PO DAILY Supplement 03/30/19 01/14/24 History tablet,extended release vitamin E 100 unit capsule 100 unit PO DAILY Supplement 03/30/19 01/14/24 History calcium polycarbophil 625 mg 1,250 mg PO DAILY Supplement 04/08/19 01/14/24 History tablet (FiberCon) rosuvastatin 10 mg tablet 10 mg PO DAILY Cholesterol 04/08/19 01/14/24 History metoclopramide HCl 5 mg tablet 5 mg PO ACHS GERD 08/04/20 01/14/24 History gabapentin 300 mg capsule 300 mg PO BID Pain 04/03/21 01/14/24 History oxybutynin chloride 5 mg 5 mg PO DAILY URINATION 04/03/21 01/14/24 History tablet,extended release 24 hr meloxicam 7.5 mg tablet 7.5 mg PO DAILY . #30 tabs 11/28/22 01/14/24 Rx meloxicam 15 mg tablet 15 mg PO DAILY #30 tabs 06/04/23 01/14/24 Rx camphor 3.1 %-methyl salicylate 10 1 patch topical TID 5 days #20 ea 08/18/23 01/14/24 Rx %-menthol 6 % topical patch (Salonpas) cyclobenzaprine 5 mg tablet 5 mg PO HS PRN muscle spasm #30 12/11/23 01/14/24 Rx tabs diclofenac sodium 75 mg 75 mg PO DAILY #30 tabs 12/11/23 01/14/24 Rx tablet,delayed release New Prescriptions to Start Prescriptions: Allergies Allergy/AdvReac Type Severity Reaction Status Date / Time Penicillins Allergy Intermediate Rash Verified 12/23/23 12:16 morphine AdvReac Mild Confusion Verified 12/23/23 12:16 Assessment and Plan *Assessment and plan (1) Lumbar radiculopathy: Status: Acute Category: Medical Code(s): M54.16 - Radiculopathy, lumbar region (2) Degenerative joint disease (DJD) of lumbar spine: Status: Acute Qualifiers: Spinal osteoarthritis complication: with radiculopathy Qualified Code(s): M47.26 - Other spondylosis with radiculopathy, lumbar region Category: Medical Code(s): M47.816 - Spondylosis without myelopathy or radiculopathy, lumbar region Plan I did discuss at length with the patient that I do believe she would benefit from a repeat lumbar epidural however due to her upcoming foot surgery I would like to verify that she does good and is recovering before we proceed forward with this option. I will make sure that she has refills on her compounded cream Flexeril and diclofenac. Patient has confirmed with her clinical dietician that the 75 mg daily of the diclofenac is appropriate and they have no contraindications. Patient will return to clinic in 3 weeks for reevaluation of symptoms and plan of care. Patient has been instructed to contact the clinic with any concerns before the next appointment. Dr. Partida has reviewed this note and agrees with this plan of care. This note was dictated using voice recognition software and make contain errors or omissions. All injections are used with Lidocaine or Bupivacaine and Depo Medrol.
== END 2024-03-11 23:59 | disposition home or self-care (01) ==
PROVIDERS: PCP Family Medicine; Visit Provider Nurse Practitioner Family
DX: M47.26 Other spondylosis with radiculopathy, lumbar region; Z96.653 Presence of artificial knee joint, bilateral; Z79.899 Other long term (current) drug therapy
CPT/HCPCS: 99212; G0463

== ENCOUNTER 2024-04-05 09:20 | Outpatient (POV) | payer MEDICARE, SELFPAY ==
--- OUTSIDE RECORDS SUMMARY | 2024-04-05 09:24 | XMS_ITS ---
Author Organization [facility] Address [address] [facility] [address] [place] [id number] Care Team Providers Care Optometrist Name Role Phone Carlos Manuel Barragan Primary Care Provider REASON FOR VISIT Message MEDICATIONS Medication SIG (Take, Route, Frequency, Duration) Notes Start Date End Date Status Cefuroxime Axetil 500 MG 1 tablet Orally every 12 hrs for 10 day(s) 02/23/2024 Active Encounters Encounter Location Date Provider Diagnosis [facility] [address] [place] [id number] 02/23/2024 Carlos Manuel Barragan Otitis media H66.90 ASSESSMENTS Encounter Date Diagnosis Assessment Notes Treatment Notes Treatment Clinical Notes 02/23/2024 Otitis media (ICD-10 - H66.90) PLAN OF TREATMENT Medication Medication Name Sig Start Date Stop Date Notes Cefuroxime Axetil 500 MG 1 tablet Orally every 12 hrs for 10 day(s) 02/23/2024
--- OUTSIDE RECORDS SUMMARY | 2024-04-05 09:25 | XMS_ITS | Patient Health Record ---
[facility] [address] [id number] Care Team Providers Care Bale Stacker Name Role Phone Carlos Manuel Barragan Primary Care Provider Nettie Godinez Unavailable [phone] ALLERGIES Allergen (clinical drug ingredient) Drug/Non Drug [...] review and pick correct strength-formulat ion from [employer] options. If intended option is not shown, discontinue and re-order from Quick Search* Active Potassium Chloride ER 1 P.O. Q DAY *Please re view and pick correct strength-formulat ion from [employer] options. If intended option is not shown, [...] Status Comme nts COVID 19 Moderna Unknown 05/16/2020 Administered COVID 19 Moderna Unknown 06/12/2020 Administered COVID 19 Moderna Unknown 06/13/2020 Administered COVID 19 Moderna Unknown 03/19/2021 Administered DT, 7 YEARS OR OLDER Unknown 07/29/1996 Administered Flublok IM Intramuscular 01/25/2021 Administered Fluzone High Dose (65yr and older) IM Intramuscular 02/28/2022 Administered Fluzone High Dose (65yr and older) IM Intramuscular 04/09/2023 Administered Fluzone High Dose (65yr and older) IM Intramuscular 03/11/2024 Administered Hepatitis A (adult) IM Intramuscular 02/17/2018 Administer ed Hepatitis A (adult) Unknown 08/18/2018 Administered PNEUMOVAX 23 VACCINE IM Intramuscular 07/21/2020 Administe red Prevnar (PCV20) IM Intramuscular 02/28/2022 Administered Shingrix IM Intramuscular 03/16/2019 Administered Shingrix Unknown 02/14/2020 Administered Shingrix Unknown 02/14/2020 Administered SOCIAL HISTORY Sex Assigned At : Social History Observation Description Sex Assigned At Unknown PROBLEMS Problem Type ICD Code Onset Dates Problem Status W/U Status Risk SNOMED Code Notes Problem Malignant neoplasm of unspecified site of left female breast (C50.912) Active confirmed 057122665 Problem Vitamin D deficiency (E55.9) Active confirmed 78291497 Problem Essential hypertension (I10) Active confirmed 57368299 Problem Obstructive sleep apnea (adult) (pediatric) (G47.33) Active confirmed 14219884 Problem Gastroesophageal reflux disease without esophagitis (K21.9) Active confirmed 211957886 Problem Allergic rhinitis (J30.9) Active confirmed 91667853 Problem Primary osteoarthritis of left knee (M17.12) Active confirmed 702038617569793 Problem Dyslipidemia (E78.5) Active confirmed 089633436 Problem Status post left mastectomy (Z90.12) Active confirmed 263697731 Problem Seasonal allergic rhinitis, unspecified allergic rhinitis trigger (J30.2) Active confirmed 963178698 Problem Oropharyngeal dysphagia (R13.12) Active confirmed 47147867 Problem History of aortic aneurysm (Z86.79) Active confirmed History of aortic aneurysm (742435150) 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 confirmed 837622334 VITAL SIGNS Heart Rate 85 /min 02/23/2024 Blood pressure diastolic 60 mm Hg 02/23/2024 Height 64.50 in 02/23/2024 Blood pressure systolic 110 mm Hg 02/23/2024 Weight 174 lbs 02/23/2024 BMI 29.40 kg/m2 02/23/2024 Encounters Encounter Location Date Provider Diagnosis [facility] [address] [place], [place] [id number] 12/18/2023 Carlos Manuel Barragan Seasonal allergic rhinitis, unspecified allergic rhinitis trigger J30.2 [facility] [address] [place], [place] [id number] 02/23/2024 Nettie Godinez Otitis media H66.90 [facility] [address] [place], [place] [id number] 04/09/2023 Carlos Manuel Barragan Encounter for immunization Z23 [facility] [address] [place], [place] [id number] 03/11/2024 Carlos Manuel Barragan Encounter for immunization Z23 [facility] [address] [place] [id number] 02/23/2024 Carlos Manuel Barragan Otitis media H66.90 ASSESSMENTS Encounter Date Diagnosis Assessment Notes Treatment Notes Treatment Clinical Notes 04/09/2023 Encounter for immunization (ICD-10 - Z23) 02/23/2024 Otitis media (ICD-10 - H66.90) 03/11/2024 Encounter for immunization (ICD-10 - Z23) 02/23/2024 Otitis media (ICD-10 - H66.90) fluids, rest, supportive measures for fever/symptom relief 12/18/2023 Seasonal allergic rhinitis, unspecified allergic rhinitis trigger (ICD-10 - J30.2) PLAN OF TREATMENT No Information Insurance Providers Payer Name Payer Address Payer Phone Subscriber Number Group Number Insured Name Patient Relationship to Insured Coverage Start Date Coverage End Date MEDICARE PART B [address] [address] [place] [address] [phone] [id number] DIAMANTE EDOUARD Self - patient is the insured [employer] [address] [address] [place] [phone] [id number] DIAMANTE EDOUARD Self - patient is the insured MEDICATIONS ADMINISTERED Medication Instructions Date of Administration Dosage Notes Depo- Medrol 40 mg/ml 04/23/2011 1 mL Dexamethasone 10/24/2007 1 mL Dexamethasone 07/29/2008 1 mL Dexamethasone 09/02/2008 1 mL Dexamethasone 04/11/2009 1 mL Dexamethasone 06/27/2009 1 mL Dexamethasone 08/10/2009 1 mL Dexamethasone 06/04/2013 Dexamethasone 06/08/2013 1 mL Dexamethasone 09/11/2015 1 mL Dexamethasone 05/21/2016 1 mL Dexamethasone 04/20/2018 1 mL Dexamethasone 04/28/2018 1 mL Dexamethasone 06/28/2019 1 mL Dexamethasone 04/08/2014 1 mL Dexamethasone 09/25/2006 1 mL Depo- Medrol 40 mg/ml 03/22/2011 1.5 mL MEDICAL (GENERAL) HISTORY Medical History History ICD Code KNEE TORN MENISCUS (2005) allergic rhinitis Hypertension Left breast cancer, Dx: 2015, Grade 1 lo bular carcinoma Declined pneumonvax - 02/2016 DIOGENES - CPAP use dyslipidemia Saccular aneurysm of descending thoracic aorta, 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 Muse 04/26/2022 RT Brachial Artery Thrombectomy- Dr. Leon cedeno 05/15/2022 Hospitalization History Reason Date(Month/Year) Dehydration 08/2006 Cough, Congestion- [facility] 07/14/2017
--- OUTSIDE RECORDS SUMMARY | 2024-04-05 09:25 | XMS_ITS ---
[facility] [address] [phone] Care Team Providers Care Community Marketing Coordinator Name Role Phone Carlos Manuel Barragan Primary Care Provider Nettie Godinez Unavailable [phone] ALLERGIES Allergen (clinical drug ingredient) Drug/Non Drug [...] review and pick correct strength-formulat ion from [employer] options. If intended option is not shown, discontinue and re-order from Quick Search* Active Potassium Chloride ER 1 P.O. Q DAY *Please re view and pick correct strength-formulat ion from [employer] options. If intended option is not shown, [...] 02/23/2024 Encounters Encounter Location Date Provider Diagnosis [facility] [address] [place] [id number] 02/23/2024 Nettie Godinez Otitis media H66.90 ASSESSMENTS [...]
--- NOTE | 2024-04-05 10:08 | EXP.PAIN.SOA ---
[facility] Disclaimer: The information contained in this section may have been updated after the patient was seen, as this information can be updated by other users. Medical History Hypertension Arthritis Hyperlipidemia Surgical History History of bilateral knee replacement Family History Other No significant family history Social History Smoking Status: Never smoker second hand exposure: No alcohol intake: never substance use type: denies use current occupational status: other Travel in the last 8 weeks: None household members: spouse housing: house current occupation: [employer] current occupational exposures/hazards: No caffeine: Yes PM Subjective & Objective Subjective Subjective:: Patient is a pleasant 73-year-old female who presents today for worsening low back and leg pain. She does rate her pain today a 4 out of 10 however does state that the pain will go up to a 7 out of 10 towards the end of the day or with increased activity. She states that it is starting to really bother her and interfere with her activities of daily living such as cooking and cleaning. Patient had already discussed with us at her last visit about additional injections however she was scheduled for bunion surgery and we were wanting to wait and see how this went. Today she states that she did end up having this procedure on March 22 and overall is doing really well. She is scheduled to get her stitches out here very soon and also has her follow-up with that surgeon on the . Patient denies any other changes. Patient does state that her pain is an aching, throbbing sensation with numbness and tingling that goes into her legs. Patient does state due to the extensive foot surgery she was given oral pain medications of Percocet and that that has decreased some of her back pain. She states that she is now starting to taper off this medication. Her Jose Miguel has been reviewed and is appropriate. Review of Systems: General: No recent weight changes, no fever, no sleep disturbances Respiratory: No cough, no shortness of air, no recurring pulmonary infections Cardiovascular/peripheral vascular: No chest pain, no palpitations, no edema, no shortness of breath Gastrointestinal: No new onset incontinence, normal bowel movements reported Genitourinary: No new onset incontinence Musculoskeletal: Low back pain, bilateral leg pain Psychiatric: [Normal mood/affect] Neurological: [Denies weakness in extremities], [denies balance issues] Pain at rest (0-10 scale): 7 Objective Objective:: Physical Exam: General: Alert and oriented x3, no acute distress, pleasant and cooperative Lungs: Respirations even and unlabored, symmetrical chest expansion Eyes: PERRL Musculoskeletal: Flexion and extension of lumbar [spine] somewhat guarded secondary to pain, [antalgic gait noted] positive leg raise Neurological: Speech clear, no gross sensory deficit Has patient had previous pain injection?: No Conservative treatment options previously tried: Home exercise plan Length of treatment: Longer than 12 weeks Meds Home Medications and Allergies Home Medications ?Medication ?Instructions ?Recorded ?Confirmed ?Type anastrozole 1 mg tablet 1 mg PO DAILY cancer 03/30/19 01/14/24 History aspirin 81 mg tablet,delayed 81 mg PO DAILY Supplement 03/30/19 01/14/24 History release bisoprolol 5 1 each PO DAILY blood pressure 03/30/19 01/14/24 History mg-hydrochlorothiazide 6.25 mg tablet potassium chloride 20 mEq 20 meq PO DAILY Supplement 03/30/19 01/14/24 History tablet,extended release vitamin E 100 unit capsule 100 unit PO DAILY Supplement 03/30/19 01/14/24 History calcium polycarbophil 625 mg 1,250 mg PO DAILY Supplement 04/08/19 01/14/24 History tablet (FiberCon) rosuvastatin 10 mg tablet 10 mg PO DAILY Cholesterol 04/08/19 01/14/24 History metoclopramide HCl 5 mg tablet 5 mg PO ACHS GERD 08/04/20 01/14/24 History gabapentin 300 mg capsule 300 mg PO BID Pain 04/03/21 01/14/24 History oxybutynin chloride 5 mg 5 mg PO DAILY URINATION 04/03/21 01/14/24 History tablet,extended release 24 hr meloxicam 7.5 mg tablet 7.5 mg PO DAILY . #30 tabs 11/28/22 01/14/24 Rx meloxicam 15 mg tablet 15 mg PO DAILY #30 tabs 06/04/23 01/14/24 Rx camphor 3.1 %-methyl salicylate 10 1 patch topical TID 5 days #20 ea 08/18/23 01/14/24 Rx %-menthol 6 % topical patch (Salonpas) cyclobenzaprine 5 mg tablet 5 mg PO HS PRN muscle spasm #30 03/11/24 Rx tabs diclofenac sodium 75 mg 75 mg PO DAILY #30 tabs 03/11/24 Rx tablet,delayed release New Prescriptions to Start Prescriptions: Allergies Allergy/AdvReac Type Severity Reaction Status Date / Time Penicillins Allergy Intermediate Rash Verified 12/23/23 12:16 morphine AdvReac Mild Confusion Verified 12/23/23 12:16 Assessment and Plan *Assessment and plan (1) Lumbar radiculopathy: Status: Acute Category: Medical Code(s): M54.16 - Radiculopathy, lumbar region (2) Degenerative joint disease (DJD) of lumbar spine: Status: Acute Qualifiers: Spinal osteoarthritis complication: with radiculopathy Qualified Code(s): M47.26 - Other spondylosis with radiculopathy, lumbar region Category: Medical Code(s): M47.816 - Spondylosis without myelopathy or radiculopathy, lumbar region Plan Patient is experiencing worsening low back and leg pain with numbness and tingling radiating down her extremities. Patient did have limited range of motion of her lumbar spine and a positive leg raise during today's visit. I did discuss with the patient that I do believe she would benefit from a repeat lumbar epidural injection. Patient did previously have her last 1 in November they did get more than 50% improvement in overall has lasted up until about the last 4 weeks. Risk and benefits of repeat injection were explained to the patient and she would like to proceed forward with this plan of care. Patient did have significant improved function through these injections. Patient has tried and failed conservative therapy including continued at home stretching exercise for longer than 12 weeks. Patient will be submitted for a lumbar epidural steroid injection L3-L4 under fluoroscopy. Patient has in the past gotten 70% improvement at this level versus about 50% improvement at the L4-L5 level. We will plan on going at the L3-L4 level due to much better improvement at this level versus others. Patient has been instructed to contact the clinic with any concerns before the next appointment. Dr. Partida has reviewed this note and agrees with this plan of care. This note was dictated using voice recognition software and make contain errors or omissions. All injections are used with Lidocaine or Bupivacaine and Depo Medrol.
[2024-04-05 10:17] VITALS: BP 165/85; PULSE 88; RESP 16; O2SAT 98; BMI 30.9
== END 2024-04-05 23:59 | disposition home or self-care (01) ==
LOC: SC.PAIN 09:22
PROVIDERS: PCP Family Medicine; Visit Provider Nurse Practitioner Family
DX: M47.26 Other spondylosis with radiculopathy, lumbar region; Z96.653 Presence of artificial knee joint, bilateral; Z73.89 Other problems related to life management difficulty
CPT/HCPCS: 99212; G0463

== ENCOUNTER 2024-05-04 09:57 | Day surgery (SDC) | payer MEDICARE, SELFPAY ==
[2024-05-04 10:13] VITALS: BP 136/76; PULSE 73; RESP 16; TEMP 36.6; O2SAT 97; BMI 29.3
--- NOTE | 2024-05-04 10:33 | P.PCN_ITS ---
Procedure Date: 05/04/24 Time: 10:30 Anesthesiologist:: Balbir Knott CRNA Complications:: None Pre-procedure Diagnosis:: Degenerative disc lumbar spine multilevels. Lumbar radiculopathy. Post-procedure Diagnosis:: Same. Indications for Procedure:: Patient is a pleasant 74-year-old female who comes our clinic today for lumbar epidural steroid injection at L3-4 level. Patient describes low lumbar back pain as constant, dull, aching. Patient also reports bilateral hip and leg radicular symptoms at times. She rates her pain 7/10. Procedure Details:: Procedure: Lumbar epidural steroid injection under fluoroscopy Informed consent was obtained and the risks and benefits of the procedure were explained to the patient. The patient was taken to the procedure room and noninvasive monitors placed, including noninvasive blood pressure cuff and pulse oximeter. The back was viewed using C-arm Fluoroscopy and prepped using Chloraprep as a cleansing solution and the L3-4 interspace was palpated. Skin and subcutaneous tissues were anesthetized using lidocaine 1.5% and a 25-gauge needle. After this, an 18-gauge Touhy epidural needle was placed into the L3-4 interspace and advanced using fluoroscopic guidance and loss of resistance to a ir until the epidural space was encountered. After confirmation of needle placement in the epidural space, with dye, a solution containing normal saline, 3 mL and Depo-Medrol 80 mg were incrementally injected into the lumbar epidural space. The patient tolerated the procedure well with no complications. The patient was observed in the Pain Clinic and then discharged home neurologically intact. Plan and Disposition:: Patient was discharged without incident.
[2024-05-04] MEDS: methylPREDNISolone ACETATE 80MG/ML VIAL 80 MG (10:37)
[2024-05-04 10:38] VITALS: BP 167/89; PULSE 75; RESP 18; O2SAT 97
[2024-05-04 10:44] VITALS: BP 167/89; PULSE 75; RESP 18; O2SAT 96
[2024-05-04 10:50] VITALS: BP 121/60; PULSE 81; RESP 16; TEMP 36.4; O2SAT 96
--- OUTSIDE RECORDS SUMMARY | 2024-05-04 22:45 | XMS_ITS | Continuity of Care Document ---
Author Organization [facility] Address [address] [place] [address] Phone Care Team Providers Care Machine Icer Name Role Phone Elieser Hauser PA-C Unavailable [...] by oral route every day - Active Ziac 5 mg-6.25 mg tablet take 1 tablet by oral route every day - Active potassium chloride ER 10 mEq capsule,extended release take 1 capsule by oral route every day with food 10 MEQ - Active vitamin B12 1,000 mcg-folic acid [...] every 2 days 300 MG - Active ARIMIDEX (unknown strength) take 1 [...] Copied on Encounter [facility], [address] [place] [address], [facility], tel:[phone] Ragley [place] No Information 2 Analisa Mon. [address] [place] [address], [facility], [place]. tel:[phone] [facility], [address] [place] [address], [facility], tel:[phone] Ragley [place] No Information 2 Nita Figueredo. [address] [place] [address], [facility], [place]. tel:[phone] Referring Provider: Brian Montesinos, [address] [place] [address], [facility]. tel:[phone] Office/outpa tient visit,est, mod [facility], [address] [place] [address], [facility], tel:[phone] Ragley [place] General orthopedic (chief complaint) Impingement syndrome of right shoulder 2 Trent Torres. [address] [place] [address], [facility], [place]. tel:[phone] Referring Provider: Brian Montesinos, [address] [place] [address], [facility]. tel:[phone] [facility] [address], [facility], [place] tel:[phone] Ragley Mally Mcintyre Pain in left kneeNeuralgia and neuritis, unspecified Jul- 2 Joi Ontiveros. [address] [place], [address], [place]. tel:[phone] Referring Provider: Bea Bowles, [address] [place] [address], [facility]. tel:[phone] [facility], [facility] [place], [address], [place] tel:[phone] Dionicio Mcintyre Neuralgia and neuritis, unspecified Jul- 2 Krbenedict Ontiveros. [address] [place], [address], [place]. tel:[phone] Referring Provider: Bea Nita Bowles, [address] [place] [address], [address]. tel:[phone] Office/outpa tient visit,est, mod [facility], [address] [place] [address], [facility], tel:[phone] [facility] general orthopedic (chief complaint) Other low back painNeuralgia and neuritis, unspecified Jun- 2 Billflavio Figueredo. [address] [place] [address], [address], [place]. tel:[phone] Referring Provider: Bea Nita Wilbur, [address] [place] [address], [facility]. tel:[phone] Office/outpa tient visit,est, mod [facility], [address] [place] [address], [facility], [place] tel:[phone] Dionicio Mcintyre Neuralgia and neuritis, unspecifiedOt her low back painPain in left knee Jun- 2 Joi Ontiveros. [address] [place], [address], [place]. tel:[phone] Referring Provider: Bea Bowles, [address] [place] [address], [address]. tel:[phone] Office/outpa tient visit,est, mod [facility] [address], [facility], [place] tel:[phone] [facility]) Other bursitis of knee, left kneeUnilatera l primary osteoarthriti s, left knee b- 2 Billflavio Figueredo. [address] [place] [address], [facility], . tel:[phone] Referring Provider: Brian Montesinos, [address] [place] [address], [facility]. tel:[phone] [facility], [address] [place] [address], [facility], tel:[phone] [facility] Other bursitis of knee, left knee 1 Jennifer Abbott. [address] [place] [address], [facility], [place]. tel:[phone] Referring Provider: Bea Bowles, [address] [place] [address], [facility]. tel:[phone] Office/outpa tient visit,est, mod [facility] [address], [facility], tel:[phone] [facility] general orthopedic (chief complaint) Unilateral primary osteoarthriti s, left knee 1 Nita Figueredo. [address] [place] [address], [facility], [place]. tel:[phone] Referring Provider: Bea Bowles, [address] [place] [address], [facility]. tel:[phone] Office/outpa tient visit,est, mod [facility] [address], [facility], [place] tel:[phone] [facility] general orthopedic (chief complaint) Aftercare following joint replacement surgeryPresen ce of left artificial knee jointOther bursitis of knee, left knee Feb- 1 Nita Figueredo. [address] [place] [address], [facility], [place]. tel:[phone] Referring Provider: Brian Montesinos, [address] [place] [address], [facility]. tel:[phone] Office/outpa tient visit,est, mod [facility] [address], [facility], [place] tel:[phone] [facility] general orthopedic (chief complaint) No Information 1 Trent Brian. [address] [place], [address], [place]. tel:[phone] Office/outpa tient visit,est, mod [facility], [facility] [place], [address], [place] tel:[phone] [facility] No Information 9 Roberto Nevarez. [address] [place], [address], [place]. tel:[phone] Referring Provider: Weston Tamez, [address] [place], [address]. tel:[phone] [facility], [facility] [place], [address], [place] tel:[phone] [facility] No Information 9 Joi Ontiveros. [address] [place], [address], [place]. tel:[phone] [facility], [address] [place] [address], [address], [place] tel:[phone] [facility] No Information 9 Joi Ontiveros. [address] [place], [address], [place]. tel:[phone] Office/outpa tient visit,new, mod [facility], [address] [place] [address], [address], [place] tel:[phone] [facility] Radiculopathy , lumbar region 8 Yannick Dobson. [address] [place] [address], [id number], [place]. tel:[phone] Referring Provider: Scar Rodriguez, [address] [place] [address], [address]. tel:[phone] [facility], [facility] [place], [address], tel:[phone] [facility] No Information 8 Joi Ontiveros. [address] [place], [facility], . tel:[phone] Office/outpa tient visit,est, mod [facility], [address] [place], [place], [facility], tel:[phone] [facility] No Information 8 Jennifer Abbott. [address] [place], [place], [facility], . tel:[phone] Office/outpa [facility]ient visit,[facility], [address] [place], [place], [facility], tel:[phone] [facility] No Information 8 Jennifer Abbott. [address] [place], [place], [facility], . tel:[phone] Family History Family Member Type Diagnosis Age At Onset Mother Problem (finding) Hypertension Father Problem (finding) Congenital heart diseas e Father Problem (finding) Hypertension Father Problem (finding) Thyroid disorder Father Problem (finding) Hyperlipidemia Mother Problem (finding) Cancer Father Problem (finding) Stroke Sister Problem (finding) Cancer Sister Problem (finding) Hypertension Payers Payer name Insurance type Covered libertarian ID Authoriza tion(s) Medicare [facility] [id number] [id number] Social History Type Description Quantity Date Captured Comments Sex Female Smoking Status No Information Chief Complaint And Reason For Visit No Information Reason For Referral Reason For Referral No Information Plan Of Treatment Date Type Action Status Future Order: Radiology Order MR I Lumbar Spine WO Contrast ([id number]), Ordered on: Ordered History Of Present Illness [...]
--- OUTSIDE RECORDS SUMMARY | 2024-05-04 22:45 | XMS_ITS ---
Author Organization [facility] Address 1210 [facility] [address] [id number] Care Team Providers Care Green Chain Marker Name Role Phone Carlos Manuel Barragan Primary Care Provider [phone] REASON FOR VISIT covid MEDICATIONS Medication SIG (Take, Route, Frequency, Duration) Notes Start Date End Date Status Paxlovid (300/100) 20 x 150 MG & 10 x 100MG 3 tablets Orally Twice a day for 5 day(s) 04/20/2024 Active Encounters Encounter Location Date Provider Diagnosis [facility] [address] [place] [id number] 04/20/2024 Carlos Manuel Barragan PLAN OF TREATMENT Medication Medication Name Sig Start Date Stop Date Notes Paxlovid (300/100) 20 x 150 MG & 10 x 100MG 3 tablets Orally Twice a day for 5 day(s) 04/20/2024
--- OUTSIDE RECORDS SUMMARY | 2024-05-04 22:45 | XMS_ITS | Clinical Summary ---
Author Organization [facility] Address [address] [place] [address] Care Team Providers Care Yarn Comber Name Role Phone Talon Barragan MD Primary Care Provider Allergies Active Allergy Reactions Criticality Noted Date Comments Morphine And Codeine Confusion High 06/19/2016 Penicillins Rash Low 05/03/2016 Has tolerated Cefazolin in the past Medications Cholecalciferol (VITAMIN D3) 2000 units tablet Take 1 tablet by mouth Daily. OTC Active cyanocobalamin (VITAMIN B-12) 500 MCG tablet Take 1 tablet by mouth Daily. OTC Active Probiotic Product (PROBIOTIC PO) Take 1 tablet by mouth Daily. OTC Active cetirizine (zyrTEC) 10 MG tablet Take 1 tablet by mouth Daily. 11/06/2022 Active montelukast (SINGULAIR) 10 MG tablet Take 1 tablet by mouth Every Night. 01/29/2023 Active aspirin 81 MG EC tablet Take 1 tablet by mouth Daily. OTC 90 tablet 3 02/12/2023 Active cyclobenzaprine (FLEXERIL) 5 MG tablet Take 1 tablet by mouth 3 (Three) Times a Day As Needed for Muscle Spasms. 20 tablet 06/30/2023 Active diclofenac (VOLTAREN) 75 MG EC tablet Take 1 tablet by mouth Daily. 08/18/2023 Active fluticasone (FLONASE) 50 MCG/ACT nasal spray As Needed. Active anastrozole (ARIMIDEX) 1 MG tablet As Needed. Active metoclopramide (REGLAN) 5 MG tablet 1 tablet As Needed. Active valsartan (DIOVAN) 160 MG tabletIndication s:Hypertension, unspecified type Take 1 tablet by mouth Daily. 90 tablet 3 12/26/2023 Active metoprolol succinate XL (TOPROL-XL) 50 MG 24 hr tablet Take 1 tablet by mouth Daily. 90 tablet 01/30/2024 Active potassium chloride (KLOR-CON M20) 20 MEQ CR tablet TAKE 1 TABLET BY MOUTH DAILY. 90 tablet 03/03/2024 Active rosuvastatin (CRESTOR) 10 MG tablet TAKE 1 TABLET BY MOUTH EVERY NIGHT. 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 Remote progressive chest pain syndrome with exertional bilateral arm pain suggestive of CCS class III angina pectoris with acceptable nuclear GXT, LVEF 0.72, spring 2001, with empiric medical therapy initiated. b. Residual class I symptoms. Labile hypertension Migraine headache Sinusitis Overview (05/03/2016): intermittent/ Allergic Rhinitis Hiatal hernia with gastroesophageal reflux Chronic low back pain Obstructive sleep apnea on CPAP Post-menopausal Osteoarthritis cervical spine Mild obesity Right knee pain Overview (05/03/2016): intractable - w/ subsequent right knee arthroscopic surgery and apparent meniscus resection Nausea Overview (05/07/2016): a. Remote progressive chest pain syndrome with exertional bilateral arm pain suggestive of CCS class III angina pectoris with acceptable nuclear GXT, LVEF 0.72, spring 2001, with empiric medical therapy initiated. b. Residual class I symptoms. Weakness Syncope Overview (05/03/2016): increase with apparaent dehydration related to sinusitis- data deficit Numbness and tingling in both hands Overview (05/07/2016): Recent symptomatic numbness and tingling in hands, probable carpal tunnel syndrome. Dyslipidemia Overview (05/03/2016): mild - Osteoarthritis cervical spine Overview (05/07/2016): abnormal cervical spine series suggestive of the above noted Breast cancer Overview (05/07/2016): 1. Recent apparent acceptable mammography (spring 2014), with subsequent development of inverted left nipple with findings of invasive grade I lobular carcinoma with scattered small foci (December-January 2015), with negative left axillary lymph node biopsy and apparent negative BRAC2 assessment with contemplated left mastectomy (May 2015). Encounters Date Type Department Care Team Description 03/23/2024 Telephone [facility] [address] [facility] [address] [place] [address] Goyo Khan MD 03/03/2024 Telephone [facility] [address] [facility] [address] [place] [address] Goyo Khan MD 03/03/2024 Refill [facility] [address] [facility] [address] [place] [address] Keesha Claire, [facility] Med Refill from Last 3 Months Immunizations Name Administration Dates Next Due COVID-19 (MODERNA) 1st,2nd,3 rd Dose Monovalent 03/19/2021,06/13/2020,05/16/2020 Fluzone High-Dose 65+yrs 02/28/2022 Hepatitis A 08/18/2018,02/17/2018 Influenza Seasonal Injectable 01/25/2021 Influenza, Unspecified 01/25/2021 Pneumococcal Conjugate 20-Valent (PCV20) 022 Pneumococcal Polysaccharide (PPSV23) 07/21/2020 Shingrix 02/14/2020,03/16/2019 Td (TDVAX) 07/29/1996 Family History Medical History Relation Name Comments Heart attack Father Wm. Fabricio Amado Mild heart att ack at age 32 Heart disease Father Wm. Fabricio Amado Heart failure Father Wm. Fabricio Amado Hypertension Father Wm. Fabricio Amado Hypertension Mother Hypertension Sister Relation Name Status Comments Father Wm. Fabricio Amado Mother Sister Social History Tobacco Use Types Packs/Day Years Used Date Smoking Tobacco: Never Passive Smoke Exposure: Past Smokeless Tobacco: Never Tobacco Cessation:Counseling Given: No Passive Exposure Comments:from childhood Alcohol Use Standard Drinks/Week Comments Yes 2 (1 standard drink = 0.6 oz pur e alcohol) Very rarely AUDIT-C Answer Date Recorded Q1: How often do you have a drink containing alc ohol? 2-4 times a month 05/14/2022 Q2: How many drinks containi ng alcohol do you have on a typical day when you are drinking? 1 or 2 05/14/2022 Q3: How often do you have si x or more drinks on one occasion? Weekly 05/14/2022 Abuse Screen Answer Date Recorded Feels Unsafe at Home or Work/School no 06/30/2023 Feels Threatened by Someone no 09/2023 Does Anyone Try to Keep You From Having Contact with Others or Doing Things Outside Your Home? no 06/30/2023 Physical Signs of Abuse Present no 06/30/2023 Housing Stability Answer Date Recorded Current Living Arrangements Not on file 04/26 Potentially Unsafe Housing Conditions Not on ez e 05/16/2023 Family and Community Support Answer Genaro e Recorded Help with Day-to-Day Activities Not on file 03/03/2023 Lonely or Isolated Not on file 03/03/2023 Employment Answer Date Recorded Do you want help finding or keeping work or a raphael b? Not on file 03/03/2023 Disabilities Answer Date Recorded Concentrating, Remembering, or Making Decisions Difficulty Not on file 05/16/2023 Doing Errands Independently Difficulty Not on fi le 05/16/2023 Education Answer Date Recorded Help with school or training? 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 Not on file Not on fi le Last Filed Vital Signs Vital Sign Reading Time Taken Comments Blood Pressure 130/80 01/30/2024 1:40 PM EDT Pulse 80 01/30/2024 1:40 PM EDT Temperature 36.5 ??C (97.7 ??F) 01/30/2024 1:40 PM ED T Respiratory Rate 18 06/30/2023 12:08 PM EST Oxygen Saturation 98% 01/30/2024 1:40 PM EDT Inhaled Oxygen Concentration - - Weight 89.9 kg (198 lb 1.6 oz) 01/30/2024 1:40 P M EDT Height 167.4 cm (5' 5.91 ) 01/30/2024 1:40 PM ED T Body Mass Index 32.06 01/30/2024 1:40 PM EDT Plan of Treatment Upcoming Encounters Date Type Department Care Team (Late st Contact Info) Description 07/29/2024 10:45 AM EST Office Visit [facility] [address] [facility] [address] [address] [place] [address] Goyo Khan MD [address] [facility] [address] [place] [address] 09/02/2024 11:30 AM EDT Office Visit [facility] SURGERY [address] [facility] [address] [place] [address] Dee Jaimes APRN [address] [facility] [address] [place] [address] Health Maintenance Due Date Last Done Comments COLOGUARD 1950 COLON CANCER SCREENING 5 YEA R SIGMOIDOSCOPY [address] COLONOGRAPHY 1950 FECAL OCCULT BLOOD TEST 1950 FIT Testing (1 year) 1950 TDAP/TD VACCINES (2 - Tdap) 07/29/2006 07/29/1996 ANNUAL WELLNESS VISIT 06/12/2017 HEPATITIS C SCREENING 06/12/2017 BMI FOLLOWUP 07/22/2023 07/22/2022 INFLUENZA VACCINE 11/24/2023 04/09/2023, , 02/28/2022, Additional history exists COVID-19 Vaccine (4 - 2023-2 5 season) 2024 03/19/2021, 06/13/2020, 05/16/2020 LIPID PANEL 02/11/2024 02/10/2023, 06/26, 06/26/2021, Additional history exists DXA SCAN 06/20/2024 06/20/2022, 05/27, 06/20/2022, Additional history exists MAMMOGRAM 08/24/2025 08/25/2023, 05/27, 04/24/2021, Additional history exists COLONOSCOPY 05/03/2029 05/03/2019, 05/26, 06/11/2016 COLORECTAL CANCER SCREENING 05/03/2029 ZOSTER VACCINE Completed 02/14/2020, 03/16/2019 Pneumococcal Vaccine 65+ Completed 02/28/2022, 06/27 Medical Devices Implanted Type Area Broach Trouble Shooter Device Identifier Shelf Expiration Date Model / Serial / Lot Stentgr Endoprsth Tag Confrm 20f [id number] 10cm - [id number] - [id number] Implanted:Qty : 1 on 04/26/2022 by Nile Muse MD at [facility] Implant N/A: Artery Femoral [employer] [id number] 09/30/2024 [id number] / [id number] / NA Procedures Procedure Name Priority Date/Time Associated Diagnosis Comments SCANNED - LABS 03/19/2024 SCANNED - LABS 02/27/2024 SCANNED - LABS 02/27/2024 LIPID PANEL Routine 07/12/2022 11:02 AM EST Essential hypertension Dyslipidemia Routine adult health maintenance from Last 3 Months or Most Recently Relevant to Health Maintenance Results * LABS SCANNED (03/19/2024) Only the most recent of3 resultswithin the time period is included. us Goyo Khan MD LAB BLOOD ORDERABLES Fi nal Result * Lipid Panel (07/12/2022 11:02 AM EST) Total Cholesterol 122 0 - 200 mg/dL 07/12/2022 2:25 PM EST [facility] Triglycerides 96 0 - 150 mg/dL 07/12/2022 2:25 PM EST [facility] HDL Cholesterol 53 40 - 60 mg/dL 07/12/2022 2:25 PM EST [facility] LDL Cholesterol 51 0 - 100 mg/dL 07/12/2022 2:25 PM EST [facility] VLDL Cholesterol 18 5 - 40 mg/dL 07/12/2022 2:25 PM EST [facility] LDL/HDL Ratio 0.94 07/12/2022 2:25 PM EST [facility] Blood Venipuncture / Unknown 07/12/2022 11:02 AM EST 07/12/2022 11:02 AM EST [facility] - 07/12/2022 2:25 PM EST Cholesterol Reference Ranges (U.S. Department of Health and Human Services ATP III Classifications) Desirable ?<200 mg/dL Borderline High ?200-239 mg/dL High Risk ?>240 mg/dL Triglyceride Reference Ranges (U.S. Department of Health and Human Services ATP III Classifications) Normal ? <150 mg/dL Borderline High ??150-199 mg/dL High ? 200-499 mg/dL Very High ?>500 mg/dL HDL Reference Ranges (U.S. Department of Health and Human Services ATP III Classifications) Low ? <40 mg/dl (major risk factor for CHD) High ?>60 mg/dl ('negative' risk factor for CHD) LDL Reference Ranges (U.S. Department of Health and Human Services ATP III Classifications) Optimal ?<100 mg/dL Near Optimal ? 100-129 mg/dL Borderline High ??130-159 mg/dL High ? 160-189 mg/dL Very High ?>189 mg/dL Keesha Claire FRAMING CONSULTANT LAB BLOOD ORDERABLES Final Result [facility]
[address] [place] [address], from Last 3 Months or Most Recently Relevant to Health Maintenance [facility] Advance Directives * CPR (Attempt to Resuscitate) (Latest Code Status on File) Date Activated Date Inactivated Comments 05/15/2022 4:50 PM 05/16/2022 6:56 PM Question Answer Comments Code Status (Patient has no pulse and is not breathing): CPR (Attempt to Resuscitate) Medical Interventions (Patie nt has pulse or is breathing): Full Support Release to patient: Routine Release * CPR (Attempt to Resuscitate) Date Activated Date Inactivated Comments 05/14/2022 7:50 PM 05/15/2022 4:50 PM Question Answer Comments Code Status (Patient has no pulse and is not breathing): CPR (Attempt to Resuscitate) Medical Interventions (Patie nt has pulse or is breathing): Full Support * CPR (Attempt to Resuscitate) Date Activated Date Inactivated Comments 04/26/2022 2:45 PM 04/28/2022 12:46 PM Question Answer Comments Code Status (Patient has no pulse and is not breathing): CPR (Attempt to Resuscitate) Medical Interventions (Patie nt has pulse or is breathing): Full Support Release to patient: Routine Release Care Teams Yarn Comber Relationship Specialty Start Date End Date Talon Barragan MD [address] [place] [address] 36 [facility] [address] [place] [address] PCP - General Family Medicine 03/20/22
--- OUTSIDE RECORDS SUMMARY | 2024-05-04 22:45 | XMS_ITS ---
Author Organization [facility] Address 1210 [facility] [address] [id number] Care Team Providers Care Admission Liaison Name Role Phone CarlosM anuel Barragan Primary Care Provider REASON FOR VISIT FLU SHOT IMMUNIZATIONS Vaccine Route Administration Date Status Comme nts Fluzone High Dose (65yr and older) IM Intramuscular 03/11/2024 Administered Encounters Encounter Location Date Provider Diagnosis [facility] [place] [facility] [address] [place] [id number] 03/11/2024 Carlos Manuel Barragan Encounter for immunization Z23 ASSESSMENTS Encounter Date Diagnosis Assessment Notes Treatment Notes Treatment Clinical Notes 03/11/2024 Encounter for immunization (ICD-10 - Z23) PLAN OF TREATMENT No Information
--- OUTSIDE RECORDS SUMMARY | 2024-05-04 22:45 | XMS_ITS ---
Author Organization [facility] Address 1210 [facility] [address] [place] [id number] Care Team Providers Care Bilingual Medical Receptionist Name Role Phone Carlos Manuel Barragan Primary Care Provider REASON FOR VISIT Message MEDICATIONS Medication SIG (Take, Route, Frequency, Duration) Notes Start Date End Date Status Cefuroxime Axetil 500 MG 1 tablet Orally every 12 hrs for 10 day(s) 02/23/2024 Active Encounters Encounter Location Date Provider Diagnosis [facility] [address] [place] [id number] 02/23/2024 Carlos Manuel Barragan Otitis media H66.90 ASSESSMENTS Encounter Date Diagnosis Assessment Notes Treatment Notes Treatment Clinical Notes 02/23/2024 Otitis media (ICD-10 - H66.90) PLAN OF TREATMENT Medication Medication Name Sig Start Date Stop Date Notes Cefuroxime Axetil 500 MG 1 tablet Orally every 12 hrs for 10 day(s) 02/23/2024
--- OUTSIDE RECORDS SUMMARY | 2024-05-04 22:45 | XMS_ITS | Patient Health Record ---
Author Organization [facility] Address [address] [id number] Care Team Providers Care Coin Purse Assembler Name Role Phone Carlos Manuel Barragan Primary Care Provider [phone] Nettie Godinez Unavailable [phone] ALLERGIES Allergen (clinical drug ingredient) Drug/Non Drug [...] review and pick correct strength-formulat ion from 27 bards options. If intended option is not shown, discontinue and re-order from Quick Search* Active Potassium Chloride ER 1 P.O. Q DAY *Please re view and pick correct strength-formulat ion from 27 bards options. If intended option is not shown, discontinue and re-order from Quick Search* Active ZyrTEC Allergy 10 MG 1 tab(s) orally once a day for 30 day(s) Active Fluticasone Propionate 50 MCG/ACT 1 spray(s) in each nostril once a day for 30 day(s) 05/28/2022 Active Paxlovid (300/100) 20 x 150 MG & 10 x 100MG 3 tablets Orally Twice a day for 5 day(s) 04/20/2024 Active valACYclovir HCl 500 MG TAKE 2 [...] Vaccine Route Administration Date Status Comme nts Shingrix IM Intramuscular 03/16/2019 Administered Shingrix Unknown 02/14/2020 Administered Shingrix Unknown 02/14/2020 Administered Prevnar (PCV20) IM Intramuscular 02/28/2022 Administered PNEUMOVAX 23 VACCINE IM Intramuscular 07/21/2020 Administe red Hepatitis A (adult) IM Intramuscular 02/17/2018 Administer ed Hepatitis A (adult) Unknown 08/18/2018 Administered Fluzone High Dose (65yr and older) IM Intramuscular 02/28/2022 Administered Fluzone High Dose (65yr and older) IM Intramuscular 04/09/2023 Administered Fluzone High Dose (65yr and older) IM Intramuscular 03/11/2024 Administered Flublok IM Intramuscular 01/25/2021 Administered DT, 7 YEARS OR OLDER Unknown 07/29/1996 Administered COVID 19 Moderna Unknown 05/16/2020 Administered COVID 19 Moderna Unknown 06/12/2020 Administered COVID 19 Moderna Unknown 06/13/2020 Administered COVID 19 Moderna Unknown 03/19/2021 Administered SOCIAL HISTORY Sex Assigned At : Social History Observation Description Sex Assigned At Unknown PROBLEMS Problem Type ICD Code Onset Dates Problem Status W/U Status Risk SNOMED Code Notes Problem Malignant neoplasm of unspecified site of left female breast (C50.912) Active confirmed 416002502 Problem Vitamin D deficiency (E55.9) Active confirmed 94967812 Problem Essential hypertension (I10) Active confirmed 81184080 Problem Obstructive sleep apnea (adult) (pediatric) (G47.33) Active confirmed 17037021 Problem Gastroesophageal reflux disease without esophagitis (K21.9) Active confirmed 454432113 Problem Allergic rhinitis (J30.9) Active confirmed 75364191 Problem Primary osteoarthritis of left knee (M17.12) Active confirmed 132431806192989 Problem Dyslipidemia (E78.5) Active confirmed 268978777 Problem Status post left mastectomy (Z90.12) Active confirmed 520751799 Problem Seasonal allergic rhinitis, unspecified allergic rhinitis trigger (J30.2) Active confirmed 429621895 Problem Oropharyngeal dysphagia (R13.12) Active confirmed 89347815 Problem History of aortic aneurysm (Z86.79) Active confirmed History of aortic aneurysm (193396909) 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 confirmed 630068849 VITAL SIGNS Heart Rate 85 /min 02/23/2024 Blood pressure diastolic 60 mm Hg 02/23/2024 Height 64.50 in 02/23/2024 Blood pressure systolic 110 mm Hg 02/23/2024 Weight 174 lbs 02/23/2024 BMI 29.40 kg/m2 02/23/2024 Encounters Encounter Location Date Provider Diagnosis [facility] [address] [place], [place] [id number] 12/18/2023 Carlos Manuel Barragan Seasonal allergic rhinitis, unspecified allergic rhinitis trigger J30.2 [facility] [address] [place], [place] [id number] 02/23/2024 Nettie Godinez Otitis media H66.90 [facility] [address] [place], [place] [id number] 02/23/2024 R Bassem Barragan Otitis media H66.90 [facility] [address] [facility] [address] [facility] [address] [place] [id number] 03/11/2024 R Bassem Barragan Encounter for immunization Z23 [facility] [address] [facility] 36 [facility] [address] [place] [id number] 04/20/2024 R Bassem Barragan ASSESSMENTS Encounter Date Diagnosis Assessment Notes Treatment Notes Treatment Clinical Notes 03/11/2024 Encounter for immunization (ICD-10 - Z23) 02/23/2024 Otitis media (ICD-10 - H66.90) 02/23/2024 Otitis media (ICD-10 - H66.90) fluids, rest, supportive measures for fever/symptom relief 12/18/2023 Seasonal allergic rhinitis, unspecified allergic rhinitis trigger (ICD-10 - J30.2) PLAN OF TREATMENT No Information Insurance Providers Payer Name Payer Address Payer Phone Subscriber Number Group Number Insured Name Patient Relationship to Insured Coverage Start Date Coverage End Date MEDICARE PART [place] [address] [address] [place] [address] [id number] DIAMANTE EDOUARD Self - patient is the insured [employer] [address] [address] [place] [address] [id number] DIAMANTE EDOUARD Self - patient is the insured MEDICATIONS ADMINISTERED Medication Instructions Date of Administration Dosage Notes Depo- Medrol 40 mg/ml 03/22/2011 1.5 mL Depo- Medrol 40 mg/ml 04/23/2011 1 mL Dexamethasone 09/25/2006 1 mL Dexamethasone 10/24/2007 1 mL Dexamethasone 07/29/2008 1 mL Dexamethasone 09/02/2008 1 mL Dexamethasone 04/11/2009 1 mL Dexamethasone 06/27/2009 1 mL Dexamethasone 08/10/2009 1 mL Dexamethasone 06/04/2013 Dexamethasone 06/08/2013 1 mL Dexamethasone 04/08/2014 1 mL Dexamethasone 09/11/2015 1 mL Dexamethasone 05/21/2016 1 mL Dexamethasone 04/20/2018 1 mL Dexamethasone 04/28/2018 1 mL Dexamethasone 06/28/2019 1 mL MEDICAL (GENERAL) HISTORY Medical History History ICD Code KNEE TORN MENISCUS (2005) allergic rhinitis Hypertension Left breast cancer, Dx: 2015, Grade 1 lo bular carcinoma Declined pneumonvax - 02/2016 DIOGENES - CPAP use dyslipidemia Saccular aneurysm of descending thoracic aorta, 2021 Right brachial artery thrombosis, Apr.26 Surgical History Surgery Date(Month/Year) RT Knee Arthroscopy Cholecystectomy RT Total Knee Replacement, [place], [place] 07/07/2007 LT Axillary Lymphnode Removal under L ax illary x 4 03/2015 LT Mastectomy-Dr Dhillon 05/2015 LT Breast Reconstruction RT Eye Fluid Removal 06/2017 Carpal Tunnel Release 02/2018 LT Knee Replacement - left- 09/29/2018 TEVAR procedure (repair of descending th oracic aneurysm) - Dr. Muse 04/26/2022 RT Brachial Artery Thrombectomy- Dr. Leon cedeno 05/15/2022 Hospitalization History Reason Date(Month/Year) Dehydration 08/2006 Cough, Congestion- [facility] 07/14/2017
--- OUTSIDE RECORDS SUMMARY | 2024-05-04 22:45 | XMS_ITS | Encounter Summary ---
[facility] Address [address] [place] [address] Care Team Providers Care Drivability Technician Name Role Phone Talon Barragan MD Primary Care Provider Encounter Details Date Type Department Care Team (Late st Contact Info) Description 03/03/2024 Telephone [facility] [address] [facility] [address] [place] [address] Goyo Khan MD [address] [facility] [address] [place] [address] Social History Tobacco Use Types Packs/Day Years Used Date Smoking Tobacco: Never Passive Smoke Exposure: Past Smokeless Tobacco: Never Passive Exposure Comments:fr om childhood Alcohol Use Standard Drinks/Week Comments Yes [...] with school or training? 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 Requested signed lab order mailed to her. Confirmed mailing address. Mailed signed lab order. Requested lab results faxed to us at [phone]. * Telephone Encounter - Jim Esparza RN - 03/04/2024 10:55 AM EDT LVM notifying patient to stop potassium supplement. Asker her to give me a call back to verify she received message. * Telephone Encounter - Jim Esparza RN - 03/04/2024 8:29 AM EDT Can she decrease or stop potassium 20 meq daily supplement? Looks like it was started by Dr. Garcia she was on a diuretic? * Telephone Encounter - Jim Esparza RN - 03/03/2024 4:34 PM EDT Pt called asking about recent lab work results Dr. Khan ordered and were drawn at [email or web address]. Partial results scanned into media. Will request full results from [email or web address]. Received full BMP results listed below. Will send to have scanned into chart. Labs drawn on 02/27/2024 Na 140 K 5.1 Cl 106 Co2 26 Anion Gap 13.1 Glucose 101 BUN 19 Crea ` 1.22 GFR 47 BUN/Crea Ratio 15 Calcium 9.6 Osmo Calc 280 documented in this encounter Plan of Treatment Upcoming Encounters Date Type Department Care Team (Late st Contact Info) Description 07/29/2024 10:45 AM EST Office Visit [facility] [address] [facility] [address] [place] [address] Goyo Khan MD [address] [facility] [address] [place], [place] [phone] 09/02/2024 11:30 AM EDT Office Visit [facility] [address] [facility] [address] [place] [address] Dee Jaimes, MEDICAID BILLING SPECIALIST [address] [facility] [address] [place] [address] documented as of this encounter Visit Diagnoses Diagnosis Precordial pain- Primary Prediabetes Other abnormal glucose documented in this encounter Care Teams Drivability Technician Relationship Specialty Start Date End Date Talon Barragan MD [address] [facility] [address] [facility] [address] [place] [address] PCP - General Family Medicine 03/20/22 documented as of this encounter
--- OUTSIDE RECORDS SUMMARY | 2024-05-04 22:45 | XMS_ITS | Encounter Summary ---
[facility] Address [address] [place] [address] Care Team Providers Care Manager Inside Name Role Phone Talon Barragan MD Primary Care Provider Encounter Details Date Type Department Care Team (Late st Contact Info) Description 03/23/[address] 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 Khan's recommendation for repeat lab work in a few weeks. Pt verbalized understanding. Pt requested lab orders mailed to her. Placed signed lab order in mail to patient. * Telephone Encounter - Jim Esparza RN - 03/23/2024 8:46 AM EDT Received faxed results for repeat labs ordered by Dr. Khan from [facility].Results listed below. Will send printed labs to medical records to scan into chart. 03/19/24 BMP Na 140 K 4.2 CL 105 CO2 27 Anion Gap 12.2 GLU 128 BUN 23 Crea 1.40 GFR 40 documented in this encounter Plan of Treatment Upcoming Encounters Date Type Department Care Team (Late st Contact Info) Description 07/29/2024 10:45 AM EST Office Visit [facility] [address] [facility] [address] [place] [address] Goyo Khan MD [address] [facility] [address] [place] [id number] 09/02/2024 11:30 AM EDT Office Visit [facility] SURGERY [address] [facility] [address] [place] [address] Dee Jaimes APRN [address] [facility] [address] [place] [address] Scheduled Orders Name Type Priority Associated Diagnoses Orde r Schedule Basic Metabolic Panel Lab Routine Prediabetes Expected: 05/28/2024 (Approximate), Expires: 03/23/2025 documented as of this encounter Visit Diagnoses Diagnosis Prediabetes- Primary Other abnormal glucose documented in this encounter Care Teams Manager Inside Relationship Specialty Start Date End Date Talon Barragan MD [address] [facility] [address] [place] [address] PCP - General Family Medicine 03/20/22 documented as of this encounter
--- OUTSIDE RECORDS SUMMARY | 2024-05-04 22:46 | XMS_ITS | Encounter Summary ---
Author Organization [facility] Address [address] [place] [address] Care Team Providers Care Clothes Ironer Name Role Phone Talon Barragan MD Primary Care Provider Reason for Referral * Diagnostic Imaging (Routine) - Closed Specialty Diagnoses / Procedures Referred By Contac t Referred To Contact Diagnoses Precordial pain Procedures Adult Stress Echo W/ Cont or Stress Agent if Necessary Per Protocol Goyo Khan MD [address] [place] [address] [place] [address] Phone: tel: fax: [facility] [address] [place] [phone] Phone: tel: Referral ID Status Reason Start Date Expiration Date Visits Re quested Visits Authorized [id number] Closed 11/07/2023 11/06/2024 1 1 Reason for Visit * Diagnostic Imaging (Routine) - Closed Specialty Diagnoses / Procedures Referred By Contac t Referred To Contact Diagnoses Precordial pain Procedures Adult Stress Echo W/ Cont or Stress Agent if Necessary Per Protocol Goyo Khan MD [address] [place] [address] [place] [address] Phone: tel: fax: [facility] [address] [place] [address] Phone: tel: Referral ID Status Reason Start Date Expiration Date Visits Re quested Visits Authorized [id number] Closed 11/07/2023 11/06/2024 1 1 Encounter Details Date Type Department Care Team (Late st Contact Info) Description 11/07/2023 2:00 PM EDT - 11/07/2023 11:59 PM EDT Hospital Encounter [facility] [place] [address] [facility] [address] [place] [address] Goyo Khan MD [address] [facility] [address] [place] [address] Precordial pain Discharge Disposition: Home or Self Care Social History Tobacco Use Types Packs/Day Years Used Date Smoking Tobacco: Never Passive Smoke Exposure: Never Smokeless Tobacco: Never Alcohol Use Standard Drinks/Week Comments Yes 2 (1 standard drink = 0.6 oz pur e alcohol) social AUDIT-C Answer Date Recorded Q1: How often [...] 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 OTC 90 tablet 3 02/12/2023 cetirizine (zyrTEC) 10 MG tablet Take 1 tablet by mouth Daily. 11/06/2022 Cholecalciferol (VITAMIN D3) 2000 units tablet Take 1 tablet by mouth Daily. OTC cyanocobalamin (VITAMIN B-12) 500 MCG tablet Take 1 tablet by mouth Daily. OTC cyclobenzaprine (FLEXERIL) 5 MG tablet Take 1 tablet by mouth 3 (Three) Times a Day As Needed for Muscle Spasms. 20 tablet 06/30/2023 diclofenac (VOLTAREN) 75 MG EC tablet Take 1 tablet by mouth Daily. 08/18/2023 montelukast (SINGULAIR) 10 MG tablet Take 1 tablet by mouth Every Night. 01/29/2023 Probiotic Product (PROBIOTIC PO) Take 1 tablet by mouth Daily. OTC metoprolol succinate XL (TOPROL-XL) 50 MG 24 hr tablet Take 1 tablet by mouth Daily. TAKE 1 TABLET DAILY STARTING [address] SCAN AND ONE TABLET MORNING OF CT SCAN. 4 tablet 10/13/2023 12/05/2023 metoprolol succinate XL (TOPROL-XL) 50 MG 24 hr tablet Take 1 tablet by mouth Daily. 90 tablet 11/07/2023 01/30/2024 metoprolol tartrate (LOPRESSOR) 50 MG tablet 11/07/2023 12/05/2023 mometasone (ASMANEX TWISTHALER) inhaler 110 mcg/inhalation Inhale 2 puffs Daily. PRN 12/05/2023 potassium chloride (K-DUR,KLOR-CON) 20 MEQ CR tablet Take 1 tablet by mouth Daily. 90 tablet 3 02/12/2023 03/03/2024 rosuvastatin (CRESTOR) 10 MG tablet Take 1 tablet by mouth Every Night. 90 tablet 3 02/12/2023 03/03/2024 documented as of this encounter Progress Notes * Goyo Khan MD - 11/07/2023 2:00 PM EDT Heart is bit thickened which is what is likely causing symptoms. Suspect likely from prior hypertension. Would recommend cardiac MRI to better evaluate. Would stop Ziac completely. Would recommend starting metoprolol succinate 50mg. This should help with symptoms as the heart needs to relax more aslikely with exertion blood has hard time getting out of your heart causing your symptoms. Would also recommend 2 week monitor. Please return in 2 weeks. documented in this encounter Plan of Treatment Upcoming Encounters Date Type Department Care Team (Late st Contact Info) Description 07/29/2024 10:45 AM EST Office Visit [facility] [address] [facility] [address] [place] [address] Goyo Khan MD [address] [facility] [address] [place] [address] 09/02/2024 11:30 AM EDT Office Visit [facility] SURGERY [address] [facility] [address] [place] [address] Dee Jaimes APRN [address] [facility] [address] [place] [address] documented as of this encounter Procedures Procedure Name Priority Date/Time Associated Diagnosis Comments SE QUAD ONLY W/ CONTRAST AND EXERCISE Routine 11/07/2023 3:45 PM EDT Precordial pain documented in this encounter Results * SE QUAD ONLY W/ CONTRAST AND EXERCISE (11/07/2023 3:45 PM EDT) [facility] CV STRESS PROTOCOL 1 Willian Stage 1 1.0 Duration Min Stage 1 1 Duration Sec Stage 1 46 Grade Stage 1 10 Speed Stage 1 1.7 CV STRESS METS STAGE 1 5.0 Target HR (85%) 126 bpm Max. Pred. HR (100%) 148 bpm Baseline HR 72 bpm Baseline BP 154/76 mmHg O2 sat rest 96 % HR Stage 1 126 BP Stage 1 241/88 O2 Stage 1 92 Peak HR 133 bpm Peak BP 241/88 mmHg O2 sat peak 92 % Recovery HR 74 bpm Recovery BP 148/81 mmHg Recovery O2 100 % Percent Max Pred HR 89.86 % Exercise duration (min) 1 min Exercise duration (sec) 46 sec Estimated workload 4.1 METS Percent Target HR 106 % EF(MOD-bp) 59.7 % LVIDd 3.6 cm LVIDs 2.8 cm IVSd 1.3 cm LVPWd 1.3 cm FS 22.6 % IVS/LVPW 1.00 cm ESV(cubed) 22.0 ml EDV(cubed) 47.4 ml LV mass(C)d 155.2 grams EDV(MOD-sp2) 82.6 ml EDV(MOD-sp4) 110.0 ml ESV(MOD-sp2) 35.4 ml ESV(MOD-sp4) 42.2 ml SV(MOD-sp2) 47.2 ml SV(MOD-sp4) 67.8 ml EF(MOD-sp2) 57.1 % EF(MOD-sp4) 61.6 % TR max mirtha 247.0 cm/sec LV V1 max 95.9 cm/sec LV V1 max PG 3.7 mmHg LV V1 mean PG 2.00 mmHg LV V1 VTI 22.7 cm Ao pk mirtha 109.0 cm/sec Ao max PG 4.8 mmHg Ao mean PG 3.0 mmHg Ao V2 VTI 25.0 cm MV max PG 4.6 mmHg MV mean PG 2.00 mmHg MV V2 VTI 35.8 cm MV P1/2t 81.8 msec MVA(P1/2t) 2.7 cm2 MV dec slope 341.0 cm/sec2 TR max PG 25 mmHg PA V2 max 90.1 cm/sec Anatomical Region Laterality Modality Ultrasound Narrative 11/07/2023 4:18 PM EDT ?Patient exhibited and reported shortness of breath on exertion (O2 saturation 92% on RA) during exercise. Symptoms resolved with rest after a few minutes of recovery. ?THR of 125 bpm met at 1:46. ?Expected exercise duration 5:40. Actual exercise duration 1:46. SONDRA (+60) Test stopped prematurely due to shortness of breath/wheezing and fatigue. ?SR-ST with no ectopy noted. ?Nonspecific ST-T changes noted on baseline EKG with nominal ST-T changes noted during exercise. ST-T changes returned near baseline after minutes of recovery. ?Left ventricular systolic function is normal. Calculated left ventricular EF = 59.7% ??good augmentation with exertion ?Left ventricular wall thickness is consistent with mild to moderate concentric hypertrophy. ??outflow gradient started under 10, with valsalva post as high as 49 mmHg ?Symptoms likely from outflow gradient. ??EKG and echo portion relatively normal. ??poor exercise tolerance. ??would treat for outflow gradient, if no symptoms improvement then proceed with further ischemic. ??would recomend MRI to better evaluate for infiltrative cardiomopathy. Left Ventricle Left ventricular systolic function is normal. Calculated left ventricular EF = 59.7% Normal left ventricular cavity size noted. Left ventricular wall thickness is consistent with mild to moderate concentric hypertrophy. Right Ventricle Normal right ventricular cavity size and septal motion noted. Right Atrium Normal right atrial cavity size noted. Mitral Valve Mitral annular calcification is present. There is calcification of the mitral valve. Mild mitral valve regurgitation is present. Tricuspid Valve The tricuspid valve is structurally normal with no stenosis present. Mild tricuspid valve regurgitation is present. Aortic Valve No aortic valve regurgitation or stenosis is present. Elevated velocities seen through LVOT. Peak velocity was post stress with valsalva maneuver measuring 3.51 m/s Pulmonic Valve The pulmonic valve is structurally normal with no regurgitation present. Pericardium The pericardium is normal. There is no evidence of pericardial effusion. . Rest ECG Baseline ECG of normal sinus rhythm noted at rest. Non-specific ST-T wave changes noted. Stress ECG Stress ECG rhythm of sinus tachycardia noted. ST segment depression in the inferolateral leads was noted during stress (II, III, aVF, V5 and V6), and returning to baseline after more than 9 minutes of recovery. There were no arrhythmias during stress. Stress Description A stress test was performed following the Willian protocol. The patient achieved the target heart rate. The test was stopped because the clinician observed shortness of breath and the patient complained of shortness of breath. The clinician observed shortness of breath during the stress test. The patient reported shortness of breath during the stress test. Onset of symptoms occurred at stage 1 of the protocol. Blood pressure demonstrated a hypertensive response to stress. Heart rate demonstrated a blunted response to stress. Recovery ECG During recovery, the patient complained of no significant symptoms following stress. Sinus rhythm was noted during recovery. Non-specific ST-T wave changes noted on ECG during recovery stage. Test Security Flex Officer ECG [place] Study Quality The study is technically adequate for diagnosis. Enhancement Agent Details Verbal consent was obtained from the patient to use Lumason image enhancer in order to optimize the study. The use of Lumason was indicated to improve delineation of the left ventricular endocardial border. 5 mL of Lumason was manually activated. A total of 5 mL of the activated Lumason was administered and the remaining contrast was wasted and discarded. No adverse reaction to image enhancer was noted. us Goyo Khan MD CV ECHO ORDERABLES Iliana l Result documented in this encounter Visit Diagnoses Diagnosis Precordial pain documented in this encounter Care Teams Clothes Ironer Relationship Specialty Start Date End Date Talon Barragan MD [address] [facility] [address] [facility] [address] [place] [address] PCP - General Family Medicine 03/20/22 documented as of this encounter
--- OUTSIDE RECORDS SUMMARY | 2024-05-04 22:46 | XMS_ITS | Encounter Summary ---
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 Average HR: 80. Min HR: 50. Max HR: 138. ?? Sinus rhythm with nominal ectopy ?? Triggered events associated with sinus rhythm and sinus tachycardia documented in this encounter Plan of Treatment Upcoming Encounters Date Type Department Care Team (Late st Contact Info) Description 07/29/2024 10:45 AM EST Office Visit [facility] CARDIOLOGY [address] [facility] [address] [place] [address] Goyo Khan MD [address] [place] [address] [address] [place] [address] 09/02/2024 11:30 AM EDT Office Visit [facility] CARDIOTHORACIC SURGERY [address] [facility] [address] [place] [address] Dee Jaimes, PROFESSOR OF BIOSTATISTICS [address] [facility] [address] [place] [address] documented as of this encounter Visit Diagnoses Not on filedocumented in this encounter Care Teams Measurer Relationship Specialty Start Date End Date Talon Barragan MD On license of [facility] [address] [facility] 2 [place] [address] PCP - General Family Medicine 03/20/22 documented as of this encounter
--- OUTSIDE RECORDS SUMMARY | 2024-05-04 22:46 | XMS_ITS | Encounter Summary ---
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, unspecified whether angina present Procedures Holter Monitor - 72 Hour Up To 15 Days Goyo Khan MD [address] [facility] [address] [place] [address] Phone: tel: fax: Referral ID Status Reason Start Date Expiration Date Visits Re quested Visits Authorized [id number] Closed 11/07/2023 11/06/2024 1 1 Encounter Details Date Type Department Care Team (Latest Contact Info) Description 11/07/2023 4:45 PM EDT Ancillary Procedure [facility] CARDIOLOGY [address] [facility] [address] [place] [phone] Precordial pain; Coronary artery disease 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 Average heart rate 79, min. heart rate 50, max heart rate. short pause of 2.6 seconds with second degreee heart block (unlcear if type 1 or type 2, has narrow QRS complex). triggered events associated with NSR. would recomend 30 day monitor and follow up documented in this encounter Plan of Treatment Upcoming Encounters Date Type Department Care Team (Late st Contact Info) Description 07/29/2024 10:45 AM EST Office Visit [facility] [address] [facility] [address] [place] [address] Goyo Khan MD [address] [facility] [address] [place], [place] [id number] 09/02/2024 11:30 AM EDT Office Visit [facility] CARDIOTHORACIC SURGERY [address] [facility] [address] [place] [phone] Dee Jaimes APRN [address] [facility] [address] [place], [place] [id number] documented as of this encounter Procedures Procedure Name Priority Date/Time Associated Diagnosis Comments HOLTER MONITOR >7 DAYS UP TO 15 DAYS INTERP ONLY Routine 11/07/2023 4:42 PM EDT Precordial pain 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 heart rate 50, max heart rate. ??short pause of 2.6 seconds with second degreee heart block (unlcear if type 1 or type 2, has narrow QRS complex). ??triggered events associated with NSR. ??would recomend 30 day monitor and follow up Study Description Monitor placed on patient by PATIENT on 11/14/2023 . Instructions were provided to patient on use of holter monitor and duration of monitoring. The monitor was scanned on 12/04/2023. The patient was monitored for 13 days 20 hours and 13 minutes. Indications for this exam include palpitations. Average HR: 79. Min HR: 50. Max HR: 146. us Goyo Khan MD CV CARDIAC SERVICES ORD ERABLES Final Result documented in this encounter Visit Diagnoses Diagnosis Precordial pain Coronary artery disease involving coronary bypass graft of mary's igloo heart, unspecified whether angina present documented in this encounter Care Teams Toe Trimmer Relationship Specialty Start Date End Date Talon Barragan MD [address] [place] [address] [address] [facility] 2 [place] [address] PCP - General Family Medicine 03/20/22 documented as of this encounter
--- OUTSIDE RECORDS SUMMARY | 2024-05-04 22:46 | XMS_ITS | Encounter Summary ---
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 Great news documented in this encounter Plan of Treatment Upcoming Encounters Date Type Department Care Team (Late st Contact Info) Description 07/29/2024 10:45 AM EST Office Visit [facility] [address] [facility] [address] [place] [address] Goyo Khan MD [address] [facility] [address] [place] [address] 09/02/2024 11:30 AM EDT Office Visit [facility]IC [facility]GERY [address] [facility] [address] [place] [address] Dee Jaimes, GREEN CHAIN WORKER [address] [facility] [address] [place] [address] documented as of this encounter Visit Diagnoses Not on filedocumented in this encounter Care Teams Licsw Relationship Specialty Start Date End Date Talon Barragan MD [facility] [address] [place] [address] PCP - General Family Medicine 03/20/22 documented as of this encounter
--- OUTSIDE RECORDS SUMMARY | 2024-05-04 22:46 | XMS_ITS | Encounter Summary ---
[facility] [address] [place] [address] Care Team Providers Care Weather Analyst Name Role Phone Talon Barragan MD Primary Care Provider Reason for Referral * Diagnostic Imaging (Routine) - Closed Specialty Diagnoses / Procedures Referred By Heather santos Referred To Contact Diagnoses Precordial pain Procedures Adult Stress Echo W/ Cont or Stress Agent if Necessary Per Protocol Goyo Khan MD [address] [facility] [address] [place] [address] Phone: tel: fax: [facility] [address] [place] [address] Phone: tel: Referral ID Status Reason Start Date Expiration Date Visits Re quested Visits Authorized [id number] Closed 11/07/2023 11/06/2024 1 1 Reason for Visit * Reason Comments Hyperlipidemia, unspecified hyperlipidem ia type Shortness of Breath Fatigue Excessive Sweating Encounter Details Date Type Department Care Team (Late st Contact Info) Description 11/07/2023 1:30 PM EDT Office Visit 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 Not on file Not on fi le documented as of this encounter Last Filed Vital Signs Vital Sign Reading Time Taken Comments Blood Pressure 128/68 11/07/2023 1:15 PM EDT Pulse 68 11/07/2023 1:15 PM EDT Temperature - - Respiratory Rate - - Oxygen Saturation 90% 11/07/2023 1:15 PM EDT Inhaled Oxygen Concentration - - Weight 93.7 kg (206 lb 9.6 oz) 11/07/2023 1:15 P M EDT Height 167.6 cm (5' 6 ) 11/07/2023 1:15 PM EDT Body Mass Index 33.35 11/07/2023 1:15 PM EDT documented in this encounter Progress Notes * Goyo Khan MD - 11/07/2023 1:30 PM EDT Chief Complaint Hyperlipidemia, unspecified hyperlipidemia type; Shortness of Breath; Fatigue; and Excessive Sweating Subjective History of Present Illness Problem List -Worsening dyspnea upon exertion -CAC on non dedicated CT -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 Alarcon is a 73 year old who is being seen for chest pain. She followed with Dr. Salinas for years until he stopped doing outpatient cardiology. She has done pretty well over past few years following her TEVAR and possible brachial artery thrombosis. However recently has been having dyspnea upon exertion sweating when doing her shopping or walking any distance over approx 100 feet. Been going on for last few months. ROS negative except for the above. Update 11/07/23 Feeling just as bad. Objective Vital Signs: Vitals: 11/07/23 1315 BP: 128/68 Pulse: 68 SpO2: 90% Estimated body mass index is 33.35 kg/m?? as calculated from the following: Height as of this encounter: 167.6 cm (66 ). Weight as of this encounter: 93.7 kg (206 lb 9.6 oz). Physical Exam HENT: Head: Normocephalic. Eyes: Extraocular Movements: Extraocular movements intact. Cardiovascular: Rate and Rhythm: Normal rate and regular rhythm. Heart sounds: No murmur heard. No gallop. Pulmonary: Breath sounds: Normal breath sounds. Abdominal: Palpations: Abdomen is soft. Musculoskeletal: Right lower leg: No edema. Left lower leg: No edema. Skin: General: Skin is warm and dry. Neurological: General: No focal deficit present. Mental Status: She is alert. Psychiatric: Mood and Affect: Mood normal. 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 Had delay with coronary CT angiogram. Has a lot of CAC so if positive will proceed with [facility]. -Cont. Aspirin, statin -cont. HTN treatment 2 week follow up Goyo Khan MD 10/09/2023 14:19 EDT documented in this encounter Plan of Treatment Upcoming Encounters Date Type Department Care Team (Late st Contact Info) Description 07/29/2024 10:45 AM EST Office Visit [facility] CARDIOLOGY [address] [facility] [address] [place] [address] Goyo Khan MD [address] [facility] [address] [place] [address] 09/02/2024 11:30 AM EDT Office Visit [facility] CARDIOTHORACIC SURGERY [address] [facility] [address] [place] [address] Dee Jaimes APRN [address] [facility] [address] [place], [place] [id number] documented as of this encounter Results * SE QUAD ONLY W/ CONTRAST AND EXERCISE (11/07/2023 3:45 PM EDT) [facility] CV STRESS PROTOCOL 1 Willian Stage 1 1.0 Duration Min Stage 1 1 Duration Sec Stage 1 46 Grade Stage 1 10 Speed Stage 1 1.7 BH CV STRESS METS STAGE 1 5.0 Target [...] noted on ECG during recovery stage. Test Volunteer Recruiter ECG [place] Study Quality The study is technically adequate [...] in this encounter Visit Diagnoses Diagnosis Precordial pain- Primary Precordial pain documented in this encounter Care Teams Weather Analyst Relationship Specialty Start Date End Date Talon Barragan MD [facility] [address] [facility] 2 [place] [address] PCP - General Family Medicine 03/20/22 documented as of this encounter
--- OUTSIDE RECORDS SUMMARY | 2024-05-04 22:46 | XMS_ITS | Encounter Summary ---
Author Organization [facility] yste Address [address] [place] [address] Care Team Providers Care Search Planner Name Role Phone Talon Barragan MD Primary Care Provider Reason for Visit * Reason Onset Date Comments Cardiac Rehab 12/15/2023 Encounter Details Date Type Department Care Team (Late st Contact Info) Description 12/15/2023 Telephone [facility] CARDIOLOGY [address] [facility] [address] [place] [address] Goyo Khan MD [address] [facility] [address] [place], [place] [id number] Cardiac Rehab Social History Tobacco Use Types Packs/Day Years [...] 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 Cardiac rehab confirmed receipt. documented in this encounter Plan of Treatment Upcoming Encounters Date Type Department Care Team (Late st Contact Info) Description 07/29/2024 10:45 AM EST Office Visit [facility] MED[facility] CARDIOLOGY [address] [facility] [address] [place] [address] Goyo Khan MD [address] [facility] [address] [place] [id number] 09/02/2024 11:30 AM EDT Office Visit [facility] CARDIOTHORACIC SURGERY [address] [facility] [address] [place] [address] Dee Jaimes, HANDICRAFT OR HOBBY SHOP MANAGER [address] [facility] [address] [place] [address] documented as of this encounter Visit Diagnoses Not on filedocumented in this encounter Care Teams Search Planner Relationship Specialty Start Date End Date Talon Barragan MD [address] [facility] [address] [place] [address] PCP - General Family Medicine 03/20/22 documented as of this encounter
--- OUTSIDE RECORDS SUMMARY | 2024-05-04 22:46 | XMS_ITS | Encounter Summary ---
[facility] Address [address] [place] [address] Care Team Providers Care Tool Planner Name Role Phone Talon Barragan MD Primary Care Provider Reason for Visit * Reason Comments Hypertension Encounter Details Date Type Department Care Team (Late st Contact Info) Description 01/30/2024 1:45 PM EDT Office Visit [facility] CARDIOLOGY [address] [facility] [address] [place] [address] Goyo Khan MD [address] [facility] [address] [place], [place] [address] Hypertension, unspecified type (Primary Dx); Shortness of breath Social History Tobacco Use Types Packs/Day Years [...] 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 on file Not on fi le documented as of this encounter Last Filed Vital Signs Vital Sign Reading Time Taken Comments Blood Pressure 130/80 01/30/2024 1:40 PM EDT Pulse 80 01/30/2024 1:40 PM EDT Temperature 36.5 ??C (97.7 ??F) 01/30/2024 1:40 PM ED T Respiratory Rate - - Oxygen Saturation 98% 01/30/2024 1:40 PM EDT Inhaled Oxygen Concentration - - Weight 89.9 kg (198 lb 1.6 oz) 01/30/2024 1:40 P M EDT Height 167.4 cm (5' 5.91 ) 01/30/2024 1:40 PM ED T Body Mass Index 32.06 01/30/2024 1:40 PM EDT documented in this encounter Progress Notes * Goyo Khan MD - 01/30/2024 1:45 PM EDT Chief Complaint Hypertension Subjective History of Present Illness Problem List -Stress test showed 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 Cavity size small. MRI was normal. 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 Alarcon is a 73 year old [...] above. Update 11/07/23 Feeling just as bad. Update 12/05/23 Started BB and feeling some better. Update 12/26/23 Feeling much better with cardiac rehab. Update 01/30/24 Symptoms have all but resolved. Able to do 1/2 mile without issue Objective Vital Signs: Vitals: 01/30/24 1340 BP: 130/80 Pulse: 80 Temp: 97.7 ??F (36.5 ??C) SpO2: 98% Estimated body mass index is 32.06 kg/m?? as calculated from the following: Height as of this encounter: 167.4 cm (65.91 ). Weight as of this encounter: 89.9 kg (198 lb 1.6 oz). Physical Exam HENT: Head: Normocephalic. Eyes: [...] alert. Psychiatric: Mood and Affect: Mood normal. Clinic discussed advanced directive Assessment -Stress test showed 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 Cavity size small. MRI was normal. 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 Partially relieved byBB. Cautious exercise program has essentially relieved her symptoms. If those conservative measuresfail would consider C or coronary CT angiogram. -cont. monitor -Cont. Aspirin, statin -cont. HTN treatment. -can get dental work and foot surgery if needed without further cv eval 6 week follow up Goyo Khan MD 10/09/2023 14:19 EDT documented in this encounter Plan of Treatment Upcoming Encounters Date Type Department Care Team (Late st Contact Info) Description 07/29/2024 10:45 AM EST Office Visit [facility] CARDIOLOGY [address] [facility] [place] [address] Goyo Khan MD [address] [facility] [address] [place] [address] 09/02/2024 11:30 AM EDT Office Visit [facility] CARDIOTHORACIC SURGERY [address] [facility] [address] [place] [address] Dee Jaimes APRN [address] [facility] [address] [place], [place] [id number] documented as of this encounter Visit Diagnoses Diagnosis Hypertension, unspecified type- Primary Shortness of breath documented in this encounter Care Teams Tool Planner Relationship Specialty Start Date End Date Talon Barragan MD [address] [facility] [address] [place] [address] PCP - General Family Medicine 03/20/22 documented as of this encounter
--- OUTSIDE RECORDS SUMMARY | 2024-05-04 22:46 | XMS_ITS | Encounter Summary ---
Author Organization [facility] yste Address [address] [place] [address] Care Team Providers Care Small Wind Energy Installer Name Role Phone Talon Barragan MD Primary Care Provider Reason for Visit * Reason Onset Date Comments Hypertension 12/19/2023 Encounter Details Date Type Department Care Team (Late st Contact Info) Description 12/19/2023 Telephone [facility] CARDIOLOGY [address] [facility] [address] [place] [address] Goyo Khan MD [address]20 [facility] [address] [place] [id number] Hypertension Social History Tobacco Use Types Packs/Day Years [...] 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 She reported it as (156/90), (164/94), (156/92), and (144/78). Per a previous note. Dr. Khan wanted her to get in sooner for a F/u appt if possible. * Telephone Encounter - Lea Hidalgo RN - 12/19/2023 1:25 PM EDT Patient called with average BPs over the last week: 150s/80s. Patient states she always takes her BP on her left arm and that is where they check it at cardiac rehab. Her BP cuff goes on the upper arm and is new within the year. Please advise if she needs medication changes or if you would like to see her in office. Thank you * Telephone Encounter - Lea Hidalgo RN - 12/19/2023 11:[address] Barragan's office note from 12/17, patient's BP was 136/80 HR 80 at the time of the appointment. * Telephone Encounter - Lea Hidalgo RN - 12/19/2023 10:39 AM EDT Received call from Cardiac Rehab staff at [facility]. They state that patient's BP at baseline uponarrival was 184/106 and after exercise was 202/108 HR ranges from 95-110 sinus rhythm/sinus tachycardia. Patient has no symptoms and is taking metoprolol as prescribed. She went to her PCP yesterday,will request note at this time. Spoke with patient, she will check her BP when she gets home as it has been normal for all of her checks lately and will call back with those results. Will await. documented in this encounter Plan of Treatment Upcoming Encounters Date Type Department Care Team (Late st Contact Info) Description 07/29/2024 10:45 AM EST Office Visit [facility] CARDIOLOGY [address] [facility] [address] [place] [address] Goyo Khan MD [address]20 [facility] [address] [place] [address] 09/02/2024 11:30 AM EDT Office Visit [facility] CARDIOTHORACIC SURGERY 1720 [facility] 502 [place] [address] Dee Jaimes APRN 1720 [facility] 502 [place] [address] documented as of this encounter Visit Diagnoses Not on filedocumented in this encounter Care Teams Small Wind Energy Installer Relationship Specialty Start Date End Date Talon Barragan MD [address] [facility] [address] [place] [address] PCP - General Family Medicine 03/20/22 documented as of this encounter
--- OUTSIDE RECORDS SUMMARY | 2024-05-04 22:46 | XMS_ITS | Encounter Summary ---
[facility] Organization [facility] Address [address] [place] [address] Care Team Providers Care Pie Icer Machine Name Role Phone Talon Barragan MD Primary Care Provider Reason for Visit * Reason Comments Arm Pain Encounter Details Date Type Department Care Team (Late st Contact Info) Description 06/30/2023 11:39 AM EST - 06/30/2023 3:[address] [facility] Emergency [facility] [address] [place] [id number] Scar Calero MD [address] [place] [address] Cervical radiculopathy (Primary Dx) Discharge Disposition: Home or Self Care Social History Tobacco Use Types Packs/Day Years Used Date Smoking Tobacco: Never Smokeless Tobacco: Never Alcohol Use Standard [...] no 06/30/2023 Feels Threatened by Someone no 0 09/2023 Does Anyone Try to Keep You [...] on file Sexual Orientation Not on file documented as of this encounter Last Filed Vital Signs Vital Sign Reading Time Taken Comments Blood Pressure 142/75 06/30/2023 2:30 PM EST Pulse 70 06/30/2023 2:30 PM EST Temperature 36.8 ??C (98.2 ??F) 06/30/2023 12:[address] Respiratory Rate 18 06/30/2023 12:08 PM EST Oxygen Saturation 98% 06/30/2023 2:30 PM EST Inhaled Oxygen Concentration - - Weight 95.3 kg (210 lb) 06/30/2023 12:08 PM EST Height 167.6 cm (5' 6 ) 06/30/2023 12:08 PM EST Body Mass Index 33.89 06/30/2023 12:08 PM EST documented in this encounter Discharge Instructions * Attachments The following attachments cannot be sent through Care Everywhere. * Cervical Radiculopathy (Faroese) documented in this encounter Medications at Time of Discharge [...] Needed for Muscle Spasms. 20 tablet 06/30/2023 montelukast (SINGULAIR) 10 MG tablet Take 1 tablet by mouth Every Night. 01/29/2023 Probiotic Product (PROBIOTIC PO) Take 1 tablet by mouth Daily. OTC albuterol sulfate HFA 108 (90 Base) MCG/ACT inhaler Inhale 2 puffs Every 4 (Four) Hours As Needed for Wheezing. 18 g 11 10/15/2022 09/03/2023 bisoprolol-hydro chlorothiazide (ZIAC) 5-6.25 MG per tablet Take 1 tablet by mouth Daily. 90 tablet 3 02/12/2023 11/07/2023 meloxicam (MOBIC) 7.5 MG tablet 06/28/2022 09/03/2023 metoclopramide (REGLAN) 5 MG tablet Take 1 tablet by mouth Daily. 05/27/2020 11/07/2023 mometasone (ASMANEX TWISTHALER) inhaler 110 mcg/inhalation Inhale 2 puffs Daily. PRN 12/05/2023 mometasone (NASONEX) 50 MCG/ACT nasal spray 2 sprays into the nostril(s) as directed by provider As Needed. 09/03/2023 naproxen (NAPROSYN) 500 MG tablet Take 1 tablet by mouth 2 (Two) Times a Day As Needed for Moderate Pain. 20 tablet 06/30/2023 09/03/2023 oxybutynin XL (DITROPAN-XL) 5 MG 24 hr tablet Take 1 tablet by mouth Daily. 10/09/2023 potassium chloride (K-DUR,KLOR-CON) 20 MEQ CR tablet Take 1 tablet by mouth Daily. 90 tablet 3 02/12/2023 03/03/2024 predniSONE (DELTASONE) 20 MG tablet Take 1 tablet by mouth 3 (Three) Times a Day With Meals. 15 tablet 06/30/2023 09/03/2023 rosuvastatin (CRESTOR) 10 MG tablet Take 1 tablet by mouth Every Night. 90 tablet 3 02/12/2023 03/03/2024 documented as of this encounter ED Notes * Scar Calero MD - 06/30/2023 3:37 PM EST Subjective History of Present Illness 73-year-old female presents for evaluation of right upper extremity pain and paresthesias. Of note,I did a thorough review of the patient's records. She was admitted to our facility in late 2021 at which time she had a thoracic aortic aneurysm and brachial artery [facility] She tells me that she had been doing well and over the past 2 weeks she has been experiencing intermittent pain and paresthesias to her right upper extremity. She also notes right-sided neck pain over the same span. She denies any preceding injury or trauma. She endorses mild accompanying shortness of breath. No cough or fever. No chest pain. She is not anticoagulated. Given her ongoing symptoms, she contacted Dr. Muse's office today and was advised to come to the emergency department to be evaluated. She denies any weakness to her right upper extremity. She denies any headaches. Review of Systems Respiratory: Positive for shortness of breath. Musculoskeletal: Positive for neck pain. Neurological: Positive for numbness. All other systems reviewed and are negative. Past Medical History: Diagnosis Date Abnormal CT scan 08/2001 of the head, calcified right sided-meningioma Breast cancer LEFT Calcified cerebral meningioma 08/[address] scans Chronic low back pain Dyslipidemia mild - Hiatal hernia with gastroesophageal reflux History of left breast cancer Hypertensive cardiovascular disease Labile hypertension Migraine headache Mild obesity Nausea Numbness and tingling in both hands Osteoarthritis cervical spine abnormal cervical spine series suggestive of the above noted PONV (postoperative nausea and vomiting) Post-menopausal Right knee pain intractable - w/ subsequent right knee arthroscopic surgery and apparent meniscus resection Sinusitis intermittent/ Allergic Rhinitis Sleep apnea DOES NOT USE CPAP, STATES SHE SLEEPS BETTER WITHOUT IT Syncope increase with apparaent dehydration related to sinusitis- data deficit Weakness Allergies Allergen Reactions Morphine And Related Confusion Penicillins Rash Has tolerated Cefazolin in the past Past Surgical History: Procedure Laterality Date AORTAGRAM N/A 04/26/2022 Procedure: TEVAR; Surgeon: Nile Muse MD; Location: [facility]; Service: Vascular; Laterality: N/A; Fluoro: 7min 14 sec Dose: 2552mGy Contrast: Isovue 300- 110ml SECTION 1990 CHOLECYSTECTOMY 05/2004 COLONOSCOPY COMPLETE MASTECTOMY W/ SENTINEL NODE BIOPSY Left FEMORAL THROMBECTOMY/EMBOLECTOMY Right 05/15/2022 Procedure: RIGHT BRACHIAL ARTERY CUTDOWN AND EXPLORATION, DENNISE THROMBOECTOMY, RIGHT UPPER EXTREMITY ANTERIOGRAM; Surgeon: Nile Muse MD; Location: [facility]; Service: Cardiothoracic; Laterality: Right; FLUORO 6 SECONDS DOSE 0.36 mGy CONTRAST 5ml KNEE SURGERY Right replacement ORIF HIP FRACTURE Right spring TONSILLECTOMY N/A TOTAL KNEE ARTHROPLASTY Left 2019 left Family History Problem Relation Age of Onset Hypertension Mother Heart disease Father Hypertension Father Hypertension Sister Social History Socioeconomic History Marital status: Number of children: 1 Tobacco Use Smoking status: Never Smokeless tobacco: Never Vaping Use Vaping Use: Never used Substance and Sexual Activity Alcohol use: Yes Alcohol/week: 2.0 standard drinks of alcohol Types: 2 Drinks containing 0.5 oz of alcohol per week Comment: social Drug use: No Sexual activity: Defer Objective Physical Exam Vitals and nursing note reviewed. Constitutional: General: She is not in acute distress. Appearance: She is well-developed. She is not diaphoretic. Comments: Nontoxic-appearing female HENT: Head: Normocephalic and atraumatic. Eyes: Pupils: Pupils are equal, round, and reactive to light. Neck: Vascular: No carotid bruit. Comments: No meningeal signs or nuchal rigidity, no midline cervical spine tenderness noted, no step-off or deformity present, no bruits Cardiovascular: Rate and Rhythm: Normal rate and regular rhythm. Heart sounds: Normal heart sounds. No murmur heard. No friction rub. No gallop. Pulmonary: Effort: Pulmonary effort is normal. No respiratory distress. Breath sounds: Normal breath sounds. No wheezing or rales. Abdominal: General: Bowel sounds are normal. There is no distension. Palpations: Abdomen is soft. There is no mass. Tenderness: There is no abdominal tenderness. There is no guarding or rebound. Musculoskeletal: General: Normal range of motion. Cervical back: Neck supple. 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 Findings: No erythema or rash. Neurological: Mental Status: She is alert and oriented to person, place, and time. Comments: Awake, alert, and oriented x3, clear and fluent speech, no dysmetria, neurovascularly intact distally in all fours with bounding distal pulses and normal sensation, 5 out of 5 strength in all fours, no cranial nerve deficits noted with cranial nerves II through XII grossly intact Psychiatric: Mood and Affect: Mood normal. Thought Content: Thought content normal. Judgment: Judgment normal. Procedures ED Course ED Course as of 06/30/23 1720 Mon Jun 30, 2023 115 73-year-old female presents for evaluation of right upper extremity pain and paresthesias. Of note, I did a thorough review of the patient's records. 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 She tells me that for the past 2 weeks or so she has been experiencing intermittent pain and paresthesias to her right upper extremity as well as right-sided neck pain. She endorses mild accompanying dyspnea. Given her ongoing symptoms, she contacted Dr. Muse's office, and she wasadvised to come to the emergency department to be evaluated today. On arrival, the patient is hypert ensive but nontoxic-appearing. No neurological deficits noted. Right upper extremity is neurovascularly intact distally with bounding distal pulses and normal sensation noted. No audible bruits present. The patient is not anticoagulated. Differential diagnosis is quite broad. We will obtain labs and imaging, and we will reassess following initial interventions. [DD] 1158 EKG interpreted independently by me revealed normal sinus rhythm with a heart rate of 72 and nonspecific T wave abnormality noted to mid precordial leads. [DD] 1319 I personally and independently reviewed the patient's CT images and findings, and I am in agreement with the radiologist regarding CT interpretation--particularly, there is no emergent cardiothoracic process noted. No emergent arterial vascular issue noted to right upper extremity. [DD] 1319 Labs remarkable for mildly elevated high-sensitivity troponin to 18. Labs otherwise bland/unrevealing. Awaiting Doppler ultrasound results at this time. [DD] 1329 Doppler ultrasound is negative for DVT. [DD] 1329 Doubt emergent central process at this time. The patient has no focal neurological deficits noted. [DD] 1329 I do feel that she could potentially benefit from an outpatient MRI of her cervical spine as her symptoms very well could be radicular in nature; however, I do not feel that an emergent MRI is warranted at this time as the patient has no focal weakness or acute neurological deficits. [DD] 1512 Repeat troponin is flat at 20. I do not feel that the patient's clinical presentation is consistent with ACS. [DD] 1517 Upon reevaluation, the patient looks well. Vital signs reassuring. Doubt emergent process at this time. Again, we discussed the high likelihood that her symptoms are secondary to a cervical radiculopathy. Prescription for prednisone burst, naproxen, and Flexeril. I have referred the patient toDr. Diaz for further outpatient management of her symptoms. She will follow-up within the next week. Agreeable with plan and given appropriate strict return precautions. [DD] ED Course User Index [DD] Sacr Calero MD Recent Results (from the past 24 hour(s)) ECG 12 Lead ED Triage Standing Order; SOA Collection Time: 06/30/23 11:40 AM Result Value Ref Range QT Interval 384 ms QTC Interval 420 ms Comprehensive Metabolic Panel Collection Time: 06/30/23 12:04 PM Specimen: Blood Result Value Ref Range Glucose 133 (H) 65 - 99 mg/dL BUN 15 8 - 23 mg/dL Creatinine 0.88 0.57 - 1.00 mg/dL Sodium 139 136 - 145 mmol/L Potassium 3.9 3.5 - 5.2 mmol/L Chloride 105 98 - 107 mmol/L CO2 23.0 22.0 - 29.0 mmol/L Calcium 9.6 8.6 - 10.5 mg/dL Total Protein 6.4 6.0 - 8.5 g/dL Albumin 4.2 3.5 - 5.2 g/dL ALT (SGPT) 17 1 - 33 U/L AST (SGOT) 17 1 - 32 U/L Alkaline Phosphatase 75 39 - 117 U/L Total Bilirubin 0.5 0.0 - 1.2 mg/dL Globulin 2.2 gm/dL A/G Ratio 1.9 g/dL BUN/Creatinine Ratio 17.0 7.0 - 25.0 Anion Gap 11.0 5.0 - 15.0 mmol/L eGFR 69.9 >60.0 mL/min/1.73 BNP Collection Time: 06/30/23 12:04 PM Specimen: Blood Result Value Ref Range proBNP 171.5 0.0 - 900.0 pg/mL Single High Sensitivity Troponin T Collection Time: 06/30/23 12:04 PM Specimen: Blood Result Value Ref Range HS Troponin T 18 (H) <14 ng/L Green Top (Gel) Collection Time: 06/30/23 12:04 PM Result Value Ref Range Extra Tube Hold for add-ons. Lavender Top Collection Time: 06/30/23 12:04 PM Result Value Ref Range Extra Tube hold for add-on Gold Top - SST Collection Time: 06/30/23 12:04 PM Result Value Ref Range Extra Tube Hold for add-ons. Tate Top Collection Time: 06/30/23 12:04 PM Result Value Ref Range Extra Tube Hold for add-ons. Light Blue Top Collection Time: 06/30/23 12:04 PM Result Value Ref Range Extra Tube Hold for add-ons. CBC Auto Differential Collection Time: 06/30/23 12:04 PM Specimen: Blood Result Value Ref Range WBC 7.86 3.40 - 10.80 10*3/mm3 RBC 4.01 3.77 - 5.28 10*6/mm3 Hemoglobin 12.6 12.0 - 15.9 g/dL Hematocrit 38.3 34.0 - 46.6 % MCV 95.5 79.0 - 97.0 fL MCH 31.4 26.6 - 33.0 pg MCHC 32.9 31.5 - 35.7 g/dL RDW 13.7 12.3 - 15.4 % RDW-SD 48.4 37.0 - 54.0 fl MPV 10.9 6.0 - 12.0 fL Platelets 196 140 - 450 10*3/mm3 Neutrophil % 57.7 42.7 - 76.0 % Lymphocyte % 29.0 19.6 - 45.3 % Monocyte % 10.2 5.0 - 12.0 % Eosinophil % 2.0 0.3 - 6.2 % Basophil % 0.5 0.0 - 1.5 % Immature Grans % 0.6 (H) 0.0 - 0.5 % Neutrophils, Absolute 4.53 1.70 - 7.00 10*3/mm3 Lymphocytes, Absolute 2.28 0.70 - 3.10 10*3/mm3 Monocytes, Absolute 0.80 0.10 - 0.90 10*3/mm3 Eosinophils, Absolute 0.16 0.00 - 0.40 10*3/mm3 Basophils, Absolute 0.04 0.00 - 0.20 10*3/mm3 Immature Grans, Absolute 0.05 0.00 - 0.05 10*3/mm3 nRBC 0.0 0.0 - 0.2 /100 WBC POC Creatinine Collection Time: 06/30/23 12:05 PM Specimen: Blood Result Value Ref Range Creatinine 0.90 0.60 - 1.30 mg/dL POC Creatinine Collection Time: 06/30/23 12:06 PM Specimen: Blood Result Value Ref Range Creatinine 0.90 0.60 - 1.30 mg/dL Duplex Venous Upper Extremity - RIGHT Collection Time: 06/30/23 1:23 PM Result Value Ref Range Right Internal Jugular Spont Y Right Internal Jugular Phasic Y Right Internal Jugular Compress C Right Internal Jugular Augment Y Right Subclavian Spont Y Right Subclavian Phasic Y Right Subclavian Compress C Right Subclavian Augment Y Right Axillary Spont Y Right Axillary Phasic Y Right Axillary Compress C Right Axillary Augment Y Right Brachial Compress C Right Radial Compress C Right Ulnar Compress C Right Basilic Upper Compress C Right Basilic Forearm Compress C Right Cephalic Upper Compress C Right Cephalic Forearm Compress C Left Subclavian Spont Y Left Subclavian Phasic Y Left Subclavian Compress C Left Subclavian Augment Y BH CV VAS PRELIMINARY FINDINGS SCRIPTING 1.0 ECG 12 Lead Other; repeat Collection Time: 06/30/23 2:08 PM Result Value Ref Range QT Interval 384 ms QTC Interval 417 ms Single High Sensitivity Troponin T Collection Time: 06/30/23 2:16 PM Specimen: Blood Result Value Ref Range HS Troponin T 20 (H) <14 ng/L Note: In addition to lab results from this visit, the labs listed above may include labs taken at another facility or during a different encounter within the last 24 hours. Please correlate lab timeswith ED admission and discharge times for further clarification of the services performed during this visit. CT Angiogram Chest Final Result 1.No acute abnormality is identified within the thorax. 2.Right-sided aortic arch with stent graft extending from the proximal right subclavian artery to the proximal/mid descending thoracic aorta. 3.Variant vascular anatomy within the right upper extremity with radial artery branching from the proximal brachial artery, and the distal brachial artery giving rise to the ulnar and dorsal interosseous arteries. The right subclavian, axillary, brachial, radial, and ulnar arteries appear otherwise patent without significant stenosis. Dorsal interosseous artery is not well visualized beyond the distal forearm. Electronically Signed: Gerald Mcbride MD 06/30/2023 1:06 PM EST Workstation ID: [id number] CT Upper Extremity Right With Contrast Final Result 1.No acute abnormality is identified within the thorax. 2.Right-sided aortic arch with stent graft extending from the proximal right subclavian artery to the proximal/mid descending thoracic aorta. 3.Variant vascular anatomy within the right upper extremity with radial artery branching from the proximal brachial artery, and the distal brachial artery giving rise to the ulnar and dorsal interosseous arteries. The right subclavian, axillary, brachial, radial, and ulnar arteries appear otherwise patent without significant stenosis. Dorsal interosseous artery is not well visualized beyond the distal forearm. Electronically Signed: Gerald Mcbride MD 06/30/2023 1:06 PM EST Workstation ID: [id number] XR Chest 1 View Final Result Impression: 1. Right-sided aortic arch, with proximal descending thoracic aortic endostent. 2. Stable, minimal left basilar lung scarring. 3. Heart and vasculature at upper limits of normal size. No clearly acute chest disease is seen. Electronically Signed: Asael Reina MD 06/30/2023 12:24 PM EST Workstation ID: [id number] Vitals: 06/30/23 1135 06/30/23 1208 06/30/23 1400 06/30/23 1430 BP: (!) 183/94 147/83 134/83 142/75 BP Location: Right arm Patient Position: Lying Pulse: 75 76 73 70 Resp: 18 Temp: 97.7 ??F (36.5 ??C) 98.2 ??F (36.8 ??C) TempSrc: Oral SpO2: 97% 95% 97% 98% Weight: 95.3 kg (210 lb) 95.3 kg (210 lb) Height: 167.6 cm (66 ) 167.6 cm (66 ) Medications sodium chloride 0.9 % flush 10 mL (has no administration in time range) iopamidol (ISOVUE-370) 76 % injection 150 mL (150 mL Intravenous Given 06/30/23 1237) ECG/EMG Results (last 24 hours) No results found for the last 24 hours. ECG 12 Lead Other; repeat Final Result Test Reason : Other~ Blood Pressure : */* mmHG Vent. Rate : 71 BPM Atrial Rate : 71 BPM P-R Int : 198 ms QRS Dur : 64 ms QT Int : 384 ms P-R-T Axes : 28 8 3 degrees QTc Int : 417 ms Poor data quality, interpretation may be adversely affected Normal sinus rhythm Nonspecific T wave abnormality Abnormal ECG When compared with ECG of 30-JUN-2023 11:40, (Unconfirmed) No significant change was found Confirmed by MD Calero Michael ([id number]) on 06/30/2023 4:16:21 PM Referred By: EDMD Confirmed By: Roque Calero MD ECG 12 Lead ED Triage Standing Order; SOA Final Result Test Reason : ED Triage Standing Order~ Blood Pressure : */* mmHG Vent. Rate : 72 BPM Atrial Rate : 72 BPM P-R Int : 188 ms QRS Dur : 72 ms QT Int : 384 ms P-R-T Axes : 24 11 16 degrees QTc Int : 420 ms Normal sinus rhythm Nonspecific T wave abnormality Abnormal ECG Confirmed by MD Calero Michael ([id number]) on 06/30/2023 4:14:59 PM Referred By: Confirmed By: Roque Calreo MD Medical Decision Making Problems Addressed: Cervical radiculopathy: complicated acute illness or injury Amount and/or Complexity of Data Reviewed Labs: ordered. Radiology: ordered. ECG/medicine tests: ordered. Risk Prescription drug management. Final diagnoses: Cervical radiculopathy ED Disposition ED Disposition ED Disposition Discharge Condition Stable Comment -- Uriel Diaz MD [address] [phone] In 1 week Medication List New Prescriptions cyclobenzaprine 5 MG tablet Commonly known as: FLEXERIL Take 1 tablet by mouth 3 (Three) Times a Day As Needed for Muscle Spasms. naproxen 500 MG tablet Commonly known as: NAPROSYN Take 1 tablet by mouth 2 (Two) Times a Day As Needed for Moderate Pain. predniSONE 20 MG tablet Commonly known as: DELTASONE Take 1 tablet by mouth 3 (Three) Times a Day With Meals. Where to Get Your Medications These medications were sent to [facility] [place] [id number] [facility] - [phone] - [phone] FX [phone] [facility], [facility] [address] cyclobenzaprine 5 MG tablet naproxen 500 MG tablet predniSONE 20 MG tablet Scar Calero MD 06/30/23 1722 documented in this encounter Plan of Treatment Upcoming Encounters Date Type Department Care Team (Late st Contact Info) Description 07/29/2024 10:45 AM EST Office Visit [facility] [address] [facility] [address] [place] [address] Goyo Khan MD [address] [facility] [address] [place] [address] 09/02/2024 11:30 AM EDT Office Visit [facility] [address] [facility] [address] [place] [phone] Dee Jaimes, [employer] [address] [facility] [address] [place], [place] [id number] documented as of this encounter Procedures Procedure Name Priority Date/Time Associated Diagnosis Comments SARAI HS TROPONIN T STAT 06/30/2023 2:16 PM EST ECG 12-LEAD STAT 06/30/2023 2:08 PM EST DUPLEX VENOUS UPPER EXTREMITY RIGHT CAR STAT 06/30/2023 1:[address] UPPER EXTREMITY RIGHT W CONTRAST STAT 06/30/2023 12:[address] ANGIOGRAM CHEST STAT 06/30/2023 12 :31 PM EST XR CHEST 1 VW STAT 06/30/2023 12:18 PM EST POCT CREATININE STAT 06/30/2023 12:06 PM EST POCT CREATININE STAT 06/30/2023 12:05 PM EST TATE TOP STAT 06/30/2023 12:04 PM EST ZZZSINGLE HS TROPONIN T STAT 06/30/2023 12:04 PM EST GOLD TOP - SST STAT 06/30/2023 12:04 PM EST DK GREEN TOP STAT 06/30/2023 12:04 PM EST CBC WITH AUTO DIFFERENTIAL STAT 06/30/2023 12:04 PM EST LAVENDER TOP STAT 06/30/2023 12:04 PM EST LIGHT BLUE TOP STAT 06/30/2023 12:04 PM EST RAINBOW DRAW STAT 06/30/2023 12:04 PM EST CBC AND DIFFERENTIAL STAT 06/30/2023 12:04 PM EST B-TYPE NATRIURETIC PEPTIDE STAT 06/30/2023 12:04 PM EST COMPREHENSIVE METABOLIC PANEL STAT 06/30/2023 12:04 PM EST ECG 12-LEAD STAT 06/30/2023 11:40 AM EST documented in this encounter Results * (ABNORMAL) Single High Sensitivity Troponin T (06/30/2023 2:16 PM EST) HS Troponin T 20(H) <14 ng/L 06/30/2023 3:01 PM EST [facility] Blood Line / Unknown 06/30/2023 2: 16 PM EST 06/30/2023 2:38 PM EST Narrative [facility] - 06/30/2023 3:01 PM EST High Sensitive Troponin T Reference Range: <14.0 ng/L- Negative Female for AMI <22.0 ng/L- Negative Male for AMI >=14 - Abnormal Female indicating possible myocardial injury. >=22 - Abnormal Male indicating possible myocardial injury. Clinicians would have to utilize clinical acumen, EKG, Troponin, and serial changes to determine if it is an Acute Myocardial Infarction or myocardial injury due to an underlying chronic condition. Scar Calero MD LAB BLOOD ORDERABLES Final Result [facility]
[address] [place] [address], * ECG 12 Lead Other; repeat (06/30/2023 2:08 PM EST) QT Interval 384 ms ECG QTC Interval 417 ms ECG 06/30/2023 2:08 PM EST 06/30/2023 4:16 PM EST Narrative ECG - 06/30/2023 4:16 PM EST Test Reason : Other~ Blood Pressure : ?? */* ?? mmHG Vent. Rate : ??71 BPM ? Atrial Rate : ??71 BPM ?? P-R Int : 198 ms ?QRS Dur : ??64 ms ?QT Int : 384 ms ? P-R-T Axes : ??28 ?? 8 ?? 3 degrees ?? QTc Int : 417 ms Poor data quality, interpretation may be adversely affected Normal sinus rhythm Nonspecific T wave abnormality Abnormal ECG When compared with ECG of 30-JUN-2023 11:40, (Unconfirmed) No significant change was found Confirmed by MD Calero Michael ([id number]) on 06/30/2023 4:16:21 PM Referred By: REMBERTO ? Confirmed By: Roque Calero MD Procedure Note Scar Calero MD - 06/30/2023 Test Reason : Other~ Blood Pressure : */* mmHG Vent. Rate : 71 BPM Atrial Rate : 71 BPM P-R Int : 198 ms QRS Dur : 64 ms QT Int : 384 ms P-R-T Axes : 28 8 3 degrees QTc Int : 417 ms Poor data quality, interpretation may be adversely affected Normal sinus rhythm Nonspecific T wave abnormality Abnormal ECG When compared with ECG of 30-JUN-2023 11:40, (Unconfirmed) No significant change was found Confirmed by MD Calero Michael ([id number]) on 06/30/2023 4:16:21 PM Referred By: REMBERTO Confirmed By: Roque Calero MD Scar Calero MD ECG ORDERABLES Final Resu lt ECG * Duplex Venous Upper Extremity - RIGHT (06/30/2023 1:23 PM EST) Right Internal Jugular Spont Y Right Internal Jugular Phasic Y Right Internal Jugular Compress C Right Internal Jugular Augment Y Right Subclavian Spont Y Right Subclavian Phasic Y Right Subclavian Compress C Right Subclavian Augment Y Right Axillary Spont Y Right Axillary Phasic Y Right Axillary Compress C Right Axillary Augment Y Right Brachial Compress C Right Radial Compress C Right Ulnar Compress C Right Basilic Upper Compress C Right Basilic Forearm Compress C Right Cephalic Upper Compress C Right Cephalic Forearm Compress C Left Subclavian Spont Y Left Subclavian Phasic Y Left Subclavian Compress C Left Subclavian Augment Y BH CV VAS PRELIMINARY FINDINGS SCRIPTING 1.0 Anatomical Region Laterality Modality Ultrasound Narrative 06/30/2023 1:35 PM EST ?Normal right upper extremity venous duplex scan. Venous Duplex Impression ? ? Right Internal Jugular: No deep vein thrombosis noted. ? ? Right Subclavian: No deep vein thrombosis noted. ? ? Right Axillary: No deep vein thrombosis noted. ? ? Right Brachial: No deep vein thrombosis noted. ? ? Right Radial: No deep vein thrombosis noted. ? ? Right Ulnar: No deep vein thrombosis noted. ? ? Right Basilic Upper Arm: No superficial thrombophlebitis noted. ? ? Right Basilic Forearm: No superficial thrombophlebitis noted. ? ? Right Cephalic Upper Arm: No superficial thrombophlebitis noted. ? ? Right Cephalic Forearm: No superficial thrombophlebitis noted. Venous Duplex Findings - Right All right upper extremity deep and superficial veins appear patent and compressible during time of exam. No sonographic evidence of thrombus seen. No prior for comparison. Right radial and ulnar artery appear patent in the distal forearm with multiphasic flow. High brachial artery bifurcation is noted in the proximal upper arm. Additional Study Details Study findings given to Scar Caleor MD on 06/30/2023 at 13:29 EST. Study performed at bedside. The study is technically good for diagnosis. us Scar Calero MD CV VASCULAR ORDERABLES Fin al Result * CT Upper Extremity Right With Contrast (06/30/2023 12:31 PM EST) Anatomical Region Laterality Modality Vascular, Shoulder, Upper Ar m, Elbow, Forearm, Wrist, Hand Right Computed Tomography 06/30/2023 12:4 3 PM EST Impressions 06/30/2023 1:06 PM EST 1.No acute abnormality is identified within the thorax. 2.Right-sided aortic arch with stent graft extending from the proximal right subclavian artery to the proximal/mid descending thoracic aorta. 3.Variant vascular anatomy within the right upper extremity with radial artery branching from the proximal brachial artery, and the distal brachial artery giving rise to the ulnar and dorsal interosseous arteries. The right subclavian, axillary, brachial, radial, and ulnar arteries appear otherwise patent without significant stenosis. Dorsal interosseous artery is not well visualized beyond the distal forearm. Electronically Signed: Gerald Mcbride MD 06/30/2023 1:06 PM EST Workstation ID: [id number] Narrative 06/30/2023 1:[address] ANGIOGRAM CHEST, CT UPPER EXTREMITY RIGHT W CONTRAST Date of Exam: 06/30/2023 12:21 PM EST Indication: RUE parasthesias s/p aortic aneursym repair. Comparison: None available. Technique: CTA of the chest was performed after the uneventful intravenous administration of 150 mL Isovue-370. Reconstructed coronal and sagittal images were also obtained. In addition, a 3-D volume rendered image was created for interpretation. Automated exposure control and iterative reconstruction methods were used. FINDINGS: Thoracic inlet: Unremarkable. Pulmonary arteries: This examination is not optimized for detection of pulmonary emboli. No large central pulmonary embolism is seen. Great vessels: Right-sided aortic arch is noted. Stent graft is seen within the thoracic aorta. Proximal extent of the stent graft is seen about the right subclavian artery origin. Stent terminates at within the proximal/mid descending thoracic aorta. The visualized proximal arch vessels appear patent and unremarkable. Mediastinum/Madalyn: No pathologically enlarged mediastinal lymph nodes are seen. A small calcified subcarinal lymph nodes are noted. The esophagus is unremarkable. Lung parenchyma: Mild bibasilar atelectasis or scarring is present. There is a calcified granuloma within the right lower lobe. No acute infiltrate is identified. Trachea and airways: The trachea and central airways appear unremarkable. Pleural space: No significant pleural effusion or pneumothorax is seen. Heart and pericardium: Coronary artery calcifications are present. Otherwise, the heart and pericardium appear unremarkable. Chest wall: No acute or suspicious osseous or soft tissue lesion is identified. Left breast implant is noted. Upper abdomen: No acute abnormality is identified within the visualized upper abdomen. Status post cholecystectomy. Probable liver cyst near the falciform ligament. There appears to be variant vascular anatomy within the right upper extremity with radial artery branching from the proximal brachial artery, and the distal brachial artery giving rise to the ulnar and dorsal interosseous arteries. The right subclavian, axillary, brachial, radial, and ulnar arteries appear otherwise patent without significant stenosis. Dorsal interosseous artery is not well visualized beyond the distal forearm. Procedure Note Gerald Mcbride MD - 06/30/2023 CT ANGIOGRAM CHEST, CT UPPER EXTREMITY RIGHT W CONTRAST Date of Exam: 06/30/2023 12:21 PM EST Indication: RUE parasthesias s/p aortic aneursym repair. Comparison: None available. Technique: CTA of the chest was performed after the uneventful intravenousadministration of 150 mL Isovue-370. Reconstructed coronal and sagittalimages were also obtained. In addition, a 3-D volume rendered image wascreated for interpretation. Automated exposure control and iterative reconstruction methods wereused. FINDINGS: Thoracic inlet: Unremarkable. Pulmonary arteries: This examination is not optimized for detection ofpulmonary emboli. No large central pulmonary embolism is seen. Great vessels: Right-sided aortic arch is noted. Stent graft is seenwithin the thoracic aorta. Proximal extent of the stent graft is seenabout the right subclavian artery origin. Stent terminates at within theproximal/mid descending thoracic aorta. The visualized proximal arch vessels appear patent and unremarkable. Mediastinum/Madalyn: No pathologically enlarged mediastinal lymph nodes areseen. A small calcified subcarinal lymph nodes are noted. The esophagus isunremarkable. Lung parenchyma: Mild bibasilar atelectasis or scarring is present. Thereis a calcified granuloma within the right lower lobe. No acute infiltrateis identified. Trachea and airways: The trachea and central airways appearunremarkable. Pleural space: No significant pleural effusion or pneumothorax is seen. Heart and pericardium: Coronary artery calcifications are present.Otherwise, the heart and pericardium appear unremarkable. Chest wall: No acute or suspicious osseous or soft tissue lesion isidentified. Left breast implant is noted. Upper abdomen: No acute abnormality is identified within the visualizedupper abdomen. Status post cholecystectomy. Probable liver cyst near thefalciform ligament. There appears to be variant vascular anatomy within the right upperextremity with radial artery branching from the proximal brachial artery,and the distal brachial artery giving rise to the ulnar and dorsalinterosseous arteries. The right subclavian, axillary, brachial, radial, and ulnar arteries appear otherwise patentwithout significant stenosis. Dorsal interosseous artery is not wellvisualized beyond the distal forearm. IMPRESSION: 1.No acute abnormality is identified within the thorax. 2.Right-sided aortic arch with stent graft extending from the proximalright subclavian artery to the proximal/mid descending thoracic aorta. 3.Variant vascular anatomy within the right upper extremity with radialartery branching from the proximal brachial artery, and the distalbrachial artery giving rise to the ulnar and dorsal interosseous arteries.The right subclavian, axillary, brachial, radial, and ulnar arteries appear otherwise patent withoutsignificant stenosis. Dorsal interosseous artery is not well visualizedbeyond the distal forearm. Electronically Signed: Gerald Mcbride MD 06/30/2023 1:06 PM EST Workstation ID: [id number] us Scar Calero MD IMG CT ORDERABLES Final Re sult * CT Angiogram Chest (06/30/2023 12:31 PM EST) Anatomical Region Laterality Modality Chest, Vascular N/A Computed Tomogra phy 06/30/2023 12:4 3 PM EST Impressions 06/30/2023 1:06 PM EST 1.No acute abnormality is identified within the thorax. 2.Right-sided aortic arch with stent graft extending from the proximal right subclavian artery to the proximal/mid descending thoracic aorta. 3.Variant vascular anatomy within the right upper extremity with radial artery branching from the proximal brachial artery, and the distal brachial artery giving rise to the ulnar and dorsal interosseous arteries. The right subclavian, axillary, brachial, radial, and ulnar arteries appear otherwise patent without significant stenosis. Dorsal interosseous artery is not well visualized beyond the distal forearm. Electronically Signed: Gerald Mcbride MD 06/30/2023 1:06 PM EST Workstation ID: [id number] Narrative 06/30/2023 1:[address] ANGIOGRAM CHEST, CT UPPER EXTREMITY RIGHT W CONTRAST Date of Exam: 06/30/2023 12:21 PM EST Indication: RUE parasthesias s/p aortic aneursym repair. Comparison: None available. Technique: CTA of the chest was performed after the uneventful intravenous administration of 150 mL Isovue-370. Reconstructed coronal and sagittal images were also obtained. In addition, a 3-D volume rendered image was created for interpretation. Automated exposure control and iterative reconstruction methods were used. FINDINGS: Thoracic inlet: Unremarkable. Pulmonary arteries: This examination is not optimized for detection of pulmonary emboli. No large central pulmonary embolism is seen. Great vessels: Right-sided aortic arch is noted. Stent graft is seen within the thoracic aorta. Proximal extent of the stent graft is seen about the right subclavian artery origin. Stent terminates at within the proximal/mid descending thoracic aorta. The visualized proximal arch vessels appear patent and unremarkable. Mediastinum/Madalyn: No pathologically enlarged mediastinal lymph nodes are seen. A small calcified subcarinal lymph nodes are noted. The esophagus is unremarkable. Lung parenchyma: Mild bibasilar atelectasis or scarring is present. There is a calcified granuloma within the right lower lobe. No acute infiltrate is identified. Trachea and airways: The trachea and central airways appear unremarkable. Pleural space: No significant pleural effusion or pneumothorax is seen. Heart and pericardium: Coronary artery calcifications are present. Otherwise, the heart and pericardium appear unremarkable. Chest wall: No acute or suspicious osseous or soft tissue lesion is identified. Left breast implant is noted. Upper abdomen: No acute abnormality is identified within the visualized upper abdomen. Status post cholecystectomy. Probable liver cyst near the falciform ligament. There appears to be variant vascular anatomy within the right upper extremity with radial artery branching from the proximal brachial artery, and the distal brachial artery giving rise to the ulnar and dorsal interosseous arteries. The right subclavian, axillary, brachial, radial, and ulnar arteries appear otherwise patent without significant stenosis. Dorsal interosseous artery is not well visualized beyond the distal forearm. Procedure Note Gerald Mcbride MD - 06/30/2023 CT ANGIOGRAM CHEST, CT UPPER EXTREMITY RIGHT W CONTRAST Date of Exam: 06/30/2023 12:21 PM EST Indication: RUE parasthesias s/p aortic aneursym repair. Comparison: None available. Technique: CTA of the chest was performed after the uneventful intravenousadministration of 150 mL Isovue-370. Reconstructed coronal and sagittalimages were also obtained. In addition, a 3-D volume rendered image wascreated for interpretation. Automated exposure control and iterative reconstruction methods wereused. FINDINGS: Thoracic inlet: Unremarkable. Pulmonary arteries: This examination is not optimized for detection ofpulmonary emboli. No large central pulmonary embolism is seen. Great vessels: Right-sided aortic arch is noted. Stent graft is seenwithin the thoracic aorta. Proximal extent of the stent graft is seenabout the right subclavian artery origin. Stent terminates at within theproximal/mid descending thoracic aorta. The visualized proximal arch vessels appear patent and unremarkable. Mediastinum/Madalyn: No pathologically enlarged mediastinal lymph nodes areseen. A small calcified subcarinal lymph nodes are noted. The esophagus isunremarkable. Lung parenchyma: Mild bibasilar atelectasis or scarring is present. Thereis a calcified granuloma within the right lower lobe. No acute infiltrateis identified. Trachea and airways: The trachea and central airways appearunremarkable. Pleural space: No significant pleural effusion or pneumothorax is seen. Heart and pericardium: Coronary artery calcifications are present.Otherwise, the heart and pericardium appear unremarkable. Chest wall: No acute or suspicious osseous or soft tissue lesion isidentified. Left breast implant is noted. Upper abdomen: No acute abnormality is identified within the visualizedupper abdomen. Status post cholecystectomy. Probable liver cyst near thefalciform ligament. There appears to be variant vascular anatomy within the right upperextremity with radial artery branching from the proximal brachial artery,and the distal brachial artery giving rise to the ulnar and dorsalinterosseous arteries. The right subclavian, axillary, brachial, radial, and ulnar arteries appear otherwise patentwithout significant stenosis. Dorsal interosseous artery is not wellvisualized beyond the distal forearm. IMPRESSION: 1.No acute abnormality is identified within the thorax. 2.Right-sided aortic arch with stent graft extending from the proximalright subclavian artery to the proximal/mid descending thoracic aorta. 3.Variant vascular anatomy within the right upper extremity with radialartery branching from the proximal brachial artery, and the distalbrachial artery giving rise to the ulnar and dorsal interosseous arteries.The right subclavian, axillary, brachial, radial, and ulnar arteries appear otherwise patent withoutsignificant stenosis. Dorsal interosseous artery is not well visualizedbeyond the distal forearm. Electronically Signed: Gerald Mcbride MD 06/30/2023 1:06 PM EST Workstation ID: [id number] Scar Calero MD IMG CT ORDERABLES Final Re sult * XR Chest 1 View (06/30/2023 12:18 PM EST) Anatomical Region Laterality Modality Body N/A Radiographic Lindsey ging 06/30/2023 12:2 1 PM EST Impressions 06/30/2023 12:24 PM EST Impression: 1. Right-sided aortic arch, with proximal descending thoracic aortic endostent. 2. Stable, minimal left basilar lung scarring. 3. Heart and vasculature at upper limits of normal size. No clearly acute chest disease is seen. Electronically Signed: Asael Reina MD 06/30/2023 12:24 PM EST Workstation ID: [id number] Narrative 06/30/2023 12:24 PM EST XR CHEST 1 VW Date of Exam: 06/30/2023 12:04 PM EST Indication: SOA triage protocol Comparison: 04/14/2022 chest radiograph Findings: Since the prior study, descending thoracic aortic endostent is now seen in the patient's right-sided aorta. Mediastinal shadow otherwise appears unremarkable. Heart is upper normal size. Vasculature is normal. Lungs appear clear of active disease. Trace left basilar linear scarring is unchanged from 2021. No effusion or pneumothorax is seen. Incidental note is made of a mild to moderate thoracolumbar scoliosis. Procedure Note Asael Reina MD - 06/30/2023 XR CHEST 1 VW Date of Exam: 06/30/2023 12:04 PM EST Indication: SOA triage protocol Comparison: 04/14/2022 chest radiograph Findings: Since the prior study, descending thoracic aortic endostent is now seen inthe patient's right-sided aorta. Mediastinal shadow otherwise appearsunremarkable. Heart is upper normal size. Vasculature is normal. Lungsappear clear of active disease. Trace left basilar linear scarring is unchanged from 2021. No effusion orpneumothorax is seen. Incidental note is made of a mild to moderatethoracolumbar scoliosis. IMPRESSION: Impression: 1. Right-sided aortic arch, with proximal descending thoracic aorticendostent. 2. Stable, minimal left basilar lung scarring. 3. Heart and vasculature at upper limits of normal size. No clearly acutechest disease is seen. Electronically Signed: Asael Reina MD 06/30/2023 12:24 PM EST Workstation ID: [id number] Scar Calero MD IMG DIAGNOSTIC IMAGING ORD ERABLES Final Result * POC Creatinine (06/30/2023 12:06 PM EST) Creatinine 0.90 0.60 - 1.30 mg/dL [facility] Blood Scar Calero MD POINT OF CARE TEST ORDERAB LES Final Result [facility]
[address] [place] [address], * POC Creatinine (06/30/2023 12:05 PM EST) Creatinine 0.90 0.60 - 1.30 mg/dL 06/30/2023 12:24 PM EST [facility] Comment:Serial Number: [id number] [id number] Blood 06/30/2023 12:0 5 PM EST 06/30/2023 12:24 PM EST Scar Calero MD POINT OF CARE TEST ORDERAB LES Final Result [facility]
[address] [place] [address], * (ABNORMAL) CBC Auto Differential (06/30/2023 12:04 PM EST) WBC 7.86 3.40 - 10.80 10*3/mm3 06/30/2023 12:26 PM EST [facility] RBC 4.01 3.77 - 5.28 10*6/mm3 06/30/2023 12:26 PM EST [facility] Hemoglobin 12.6 12.0 - 15.9 g/dL 06/30/2023 12:26 PM EST [facility] Hematocrit 38.3 34.0 - 46.6 % 06/30/2023 12:26 PM EST [facility] MCV 95.5 79.0 - 97.0 fL 06/30/2023 12:26 PM EST [facility] MCH 31.4 26.6 - 33.0 pg 06/30/2023 12:26 PM EST [facility] MCHC 32.9 31.5 - 35.7 g/dL 06/30/2023 12:26 PM EST [facility] RDW 13.7 12.3 - 15.4 % 06/30/2023 12:26 PM EST [facility] RDW-SD 48.4 37.0 - 54.0 fl 06/30/2023 12:26 PM EST [facility] MPV 10.9 6.0 - 12.0 fL 06/30/2023 12:26 PM EST [facility] Platelets 196 140 - 450 10*3/mm3 06/30/2023 12:26 PM EST [facility] Neutrophil % 57.7 42.7 - 76.0 % 06/30/2023 12:26 PM [facility] Lymphocyte % 29.0 19.6 - 45.3 % 06/30/2023 12:26 PM [facility] Monocyte % 10.2 5.0 - 12.0 % 06/30/2023 12:26 PM [facility] Eosinophil % 2.0 0.3 - 6.2 % 06/30/2023 12:26 PM [facility] Basophil % 0.5 0.0 - 1.5 % 06/30/2023 12:26 PM [facility] Immature Grans % 0.6(H) 0.0 - 0.5 % 06/30/2023 12:26 PM [facility] Neutrophils, Absolute 4.53 1.70 - 7.00 10*3/mm3 06/30/2023 12:26 PM [facility] Lymphocytes, Absolute 2.28 0.70 - 3.10 10*3/mm3 06/30/2023 12:26 PM [facility] Monocytes, Absolute 0.80 0.10 - 0.90 10*3/mm3 06/30/2023 12:26 PM [facility] Eosinophils, Absolute 0.16 0.00 - 0.40 10*3/mm3 06/30/2023 12:26 PM [facility] Basophils, Absolute 0.04 0.00 - 0.20 10*3/mm3 06/30/2023 12:26 PM [facility] Immature Grans, Absolute 0.05 0.00 - 0.05 10*3/mm3 06/30/2023 12:26 PM [facility] nRBC 0.0 0.0 - 0.2 /100 WBC 06/30/2023 12:26 PM [facility] Blood Venipuncture / Unknown 06/30/2023 12:04 PM EST 06/30/2023 12:21 PM EST Scar Calero MD LAB BLOOD ORDERABLES Final Result [facility]
[address] [place] [address], * Light Blue Top (06/30/2023 12:04 PM EST) Extra Tube Hold for add-ons. 06/30/2023 1:15 PM EST [facility] Comment:Auto resulted Blood Venipuncture / Unknown 06/30/2023 12:04 PM EST 06/30/2023 12:21 PM EST Scar Calero MD LAB BLOOD ORDER ONLY Final Result Performing Organization Address [facility] Co de Phone Number [facility]
[address] [place] [address], * Tate Top (06/30/2023 12:04 PM EST) Extra Tube Hold for add-ons. 06/30/2023 4:15 PM EST [facility] Comment:Auto resulted. Blood Venipuncture / Unknown 06/30/2023 12:04 PM EST 06/30/2023 12:21 PM EST Scar Calero MD LAB BLOOD ORDER ONLY Final Result Performing Organization Address [facility] Co de Phone Number [facility]
[address] [place] [address], * Gold Top - SST (06/30/2023 12:04 PM EST) Extra Tube Hold for add-ons. 06/30/2023 1:15 PM EST [facility] Comment:Auto resulted. Blood Venipuncture / Unknown 06/30/2023 12:04 PM EST 06/30/2023 12:21 PM EST Scar Calero MD LAB BLOOD ORDER ONLY Final Result [facility]
[address] [place] [address], * Lavender Top (06/30/2023 12:04 PM EST) Extra Tube hold for add-on 06/30/2023 1:15 PM EST [facility] Comment:Auto resulted Blood Venipuncture / Unknown 06/30/2023 12:04 PM EST 06/30/2023 12:21 PM EST Scar Calero MD LAB BLOOD ORDER ONLY Final Result Performing Organization Address City/[facility]/ZIP Co de Phone Number [facility]
[address] [place] [address], * Green Top (Gel) (06/30/2023 12:04 PM EST) Extra Tube Hold for add-ons. 06/30/2023 1:15 PM EST [facility] Comment:Auto resulted. Blood Venipuncture / Unknown 06/30/2023 12:04 PM EST 06/30/2023 12:21 PM EST Scar Calero MD LAB BLOOD ORDER ONLY Final Result Performing Organization Address City/[facility]/ZIP Co de Phone Number [facility]
[address] [place] [address], * (ABNORMAL) Single High Sensitivity Troponin T (06/30/2023 12:04 PM EST) HS Troponin T 18(H) <14 ng/L 06/30/2023 12:46 PM EST [facility] Blood Venipuncture / Unknown 06/30/2023 12:04 PM EST 06/30/2023 12:21 PM EST Narrative [facility] - 06/30/2023 12:46 PM EST High Sensitive Troponin T Reference Range: <14.0 ng/L- Negative Female for AMI <22.0 ng/L- Negative Male for AMI >=14 - Abnormal Female indicating possible myocardial injury. >=22 - Abnormal Male indicating possible myocardial injury. Clinicians would have to utilize clinical acumen, EKG, Troponin, and serial changes to determine if it is an Acute Myocardial Infarction or myocardial injury due to an underlying chronic condition. Scar Calero MD LAB BLOOD ORDERABLES Final Result [facility]
[address] [place] [address], * BNP (06/30/2023 12:04 PM EST) proBNP 171.5 0.0 - 900.0 pg/mL 06/30/2023 12:46 PM EST [facility] Blood Venipuncture / Unknown 06/30/2023 12:04 PM EST 06/30/2023 12:21 PM EST Narrative [facility] - 06/30/2023 12:46 PM EST This assay is used as an aid in the diagnosis of individuals suspected of having heart failure. It can be used as an aid in the diagnosis of acute decompensated heart failure (ADHF) in patients presenting with signs and symptoms of ADHF to the emergency department (ED). In addition, NT-proBNP of <300 pg/mL indicates ADHF is not likely. Age Range Result Interpretation ??NT-proBNP Concentration (pg/mL: <50 ? Positive ?>450 ? Tate ?300-450 ? Negative ?<300 50-75 ? Positive ?>900 ?Tate ?300-900 ?Negative ?<300 >75 ? Positive ?>1800 ?Tate ?300-1800 ?Negative ?<300 Scar Calero MD LAB BLOOD ORDERABLES Final Result [facility]
[address] [place] [address], * (ABNORMAL) Comprehensive Metabolic Panel (06/30/2023 12:04 PM EST) Glucose 133(H) 65 - 99 mg/dL 06/30/2023 12:50 PM EST [facility] BUN 15 8 - 23 mg/dL 06/30/2023 12:50 PM EST [facility] Creatinine 0.88 0.57 - 1.00 mg/dL 06/30/2023 12:50 PM EST [facility] Sodium 139 136 - 145 mmol/L 06/30/2023 12:50 PM EST [facility] Potassium 3.9 3.5 - 5.2 mmol/L 06/30/2023 12:50 PM EST [facility] Chloride 105 98 - 107 mmol/L 06/30/2023 12:50 PM EST [facility] CO2 23.0 22.0 - 29.0 mmol/L 06/30/2023 12:50 PM EST [facility] Calcium 9.6 8.6 - 10.5 mg/dL 06/30/2023 12:50 PM EST [facility] Total Protein 6.4 6.0 - 8.5 g/dL 06/30/2023 12:50 PM [facility] Albumin 4.2 3.5 - 5.2 g/dL 06/30/2023 12:50 PM [facility] ALT (SGPT) 17 1 - 33 U/L 06/30/2023 12:50 PM [facility] AST (SGOT) 17 1 - 32 U/L 06/30/2023 12:50 PM EST [facility] Alkaline Phosphatase 75 39 - 117 U/L 06/30/2023 12:50 PM [facility] Total Bilirubin 0.5 0.0 - 1.2 mg/dL 06/30/2023 12:50 PM [facility] Globulin 2.2 gm/dL 06/30/2023 12:50 PM [facility] Comment:Calculated Result A/G Ratio 1.9 g/dL 06/30/2023 12:50 PM [facility] BUN/Creatinine Ratio 17.0 7.0 - 25.0 06/30/2023 12:50 PM [facility] Anion Gap 11.0 5.0 - 15.0 mmol/L 06/30/2023 12:50 PM [facility] eGFR 69.9 >60.0 mL/min/1.7 3 06/30/2023 12:50 PM [facility] Blood Venipuncture / Unknown 06/30/2023 12:04 PM EST 06/30/2023 12:21 PM EST [facility] - 06/30/2023 12:50 PM EST GFR Normal >60 Chronic Kidney Disease <60 Kidney Failure <15 The GFR formula is only valid for adults with stable renal function between ages 18 and 70. Scar Calero MD LAB BLOOD ORDERABLES Final Result [facility]
[address] [place] [address], * ECG 12 Lead ED Triage Standing Order; SOA (06/30/2023 11:40 AM EST) QT Interval 384 ms ECG QTC Interval 420 ms ECG 06/30/2023 11:4 0 AM EST 06/30/2023 4:14 PM EST Narrative ECG - 06/30/2023 4:15 PM EST Test Reason : ED Triage Standing Order~ Blood Pressure : ?? */* ?? mmHG Vent. Rate : ??72 BPM ? Atrial Rate : ??72 BPM ?? P-R Int : 188 ms ?QRS Dur : ??72 ms ?QT Int : 384 ms ? P-R-T Axes : ??24 ??11 ??16 degrees ?? QTc Int : 420 ms Normal sinus rhythm Nonspecific T wave abnormality Abnormal ECG Confirmed by MD Calero Michael ([id number]) on 06/30/2023 4:14:59 PM Referred By: ?Confirmed By: Roque Calero MD Procedure Note Scar Calero MD - 06/30/2023 Test Reason : ED Triage Standing Order~ Blood Pressure : */* mmHG Vent. Rate : 72 BPM Atrial Rate : 72 BPM P-R Int : 188 ms QRS Dur : 72 ms QT Int : 384 ms P-R-T Axes : 24 11 16 degrees QTc Int : 420 ms Normal sinus rhythm Nonspecific T wave abnormality Abnormal ECG Confirmed by MD Calero Michael ([id number]) on 06/30/2023 4:14:59 PM Referred By: Confirmed By: Roque Calero MD us Scar Calero MD ECG ORDERABLES Final Resu lt ECG documented in this encounter Visit Diagnoses Diagnosis Cervical radiculopathy- Primary Brachial neuritis or radiculitis nos documented in this encounter Administered Medications Inactive Administered Medications - up to 3 most recent administrations Medication Order MAR Action Action Date Dose Rate Site iopamidol (ISOVUE-370) 76 % injection 150 mL 150 mL, Intravenous, Once in Imaging, On Fri06/30/23 at 1253, For 1 dose Given 06/30/2023 12:37 PM EST 150 mL sodium chloride 0.9 % flush 10 mL 10 mL, Intravenous, As Needed, Line Care, Starting on Fri06/30/23 at 1137 documented in this encounter Active and Recently Administered Medications Times are shown in EST. Scheduled Medication Order 06/28/2023 06/29/2023 06/30/2023 iopamidol (ISOVUE-370) 76 % injection 150 mL (COMPLETED) 150 mL, Intravenous, Once in Imaging, On Fri06/30/23 at 1253, For 1 dose 1237 (Given - Provid er: Nola Strickland) PRN Medication Order 06/28/2023 06/29/2023 06/30/2023 sodium chloride 0.9 % flush 10 mL 10 mL, Intravenous, As Needed, Line Care, Starting on Fri06/30/23 at 1137 documented in this encounter Care Teams Pie Icer Machine Relationship Specialty Start Date End Date Talon Barragan MD [facility] [address] [facility] [address] [place] [address] PCP - General Family Medicine 03/20/22 documented as of this encounter
--- OUTSIDE RECORDS SUMMARY | 2024-05-04 22:46 | XMS_ITS | Encounter Summary ---
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 [address] [place] [address] Goyo Khan MD [address] [facility] [address] [place] [id number] 09/02/2024 11:30 AM EDT Office Visit [facility] CARDIOTHORACIC SURGERY [address] [facility] [address] [place] [phone] Dee Jaimes APRN [address] [facility] [address] [place], [place] [phone] documented as of this encounter Visit Diagnoses Not on filedocumented in this encounter Care Teams Brewery Technician Relationship Specialty Start Date End Date Talon Barragan MD [address] [facility] [address] [place] [address] PCP - General Family Medicine 03/20/22 documented as of this encounter
--- OUTSIDE RECORDS SUMMARY | 2024-05-04 22:46 | XMS_ITS | Encounter Summary ---
[facility] Address [address] [place] [address] Care Team Providers Care Manager Meeting Name Role Phone Talon Barragan MD Primary Care Provider Reason for Visit * Reason Onset Date Comments DR. MUSE - SELENE 06/30/2023 Encounter Details Date Type Department Care Team (Late st Contact Info) Description 06/30/2023 Telephone [facility] CARDIOTHORACIC SURGERY [address] [address] JANKO - SCHEDULING Social History Tobacco Use Types Packs/Day Years [...] on file documented as of this encounter Miscellaneous Notes * Telephone Encounter - Sana Broderick MA - 06/30/2023 2:03 PM EST Patient relayed to the [facility] that patient is in a lot of pain and is going to the ER. * Telephone Encounter - Arelis Elliott RegSched Rep - 06/30/2023 11:12 AM EST IF CAN'T REACH PT T HER NUMBER PLEASE CALL [phone] PTS PT IS IN [place] HEADED TO ER-PER [place]AN[place] THAT IS BEST COURSE OF ACTION * Telephone Encounter - Riddhi Bales RegSched Rep - 06/30/2023 8:28 AM EST Caller: Juany Alarcon Relationship to patient: Self Best call back number: [phone] Chief complaint: PAIN IN RIGHT ARM Type of visit: FOLLOW UP Requested date: ANABEL If rescheduling, when is the original appointment: 09/04/23 Additional notes:PATIENT WOULD LIKE A CALL BACK TO SCHEDULE. documented in this encounter Plan of Treatment Upcoming Encounters Date Type Department Care Team (Late st Contact Info) Description 07/29/2024 10:45 AM EST Office Visit [facility] CARDIOLOGY [address] [facility] [address] [place] [address] Goyo Khan MD [address] [facility] [address] [place] [address] 09/02/2024 11:30 AM EDT Office Visit [facility] CARDIOTHORACIC SURGERY [address] [facility] [address] [place] [address] Dee Jaimes, HOT WORT SETTLER [address] [facility] [address] [place] [address] documented as of this encounter Visit Diagnoses Not on filedocumented in this encounter Care Teams Manager Meeting Relationship Specialty Start Date End Date Talon Barragan MD [address] [facility] [address] [place] [address] PCP - General Family Medicine 03/20/22 documented as of this encounter
--- OUTSIDE RECORDS SUMMARY | 2024-05-04 22:46 | XMS_ITS | Encounter Summary ---
[facility] Address [address] [place] [address] Care Team Providers Care Laboratory Engineer Name Role Phone Talon Barragan MD Primary Care Provider Reason for Visit * Diagnostic Imaging (Routine) - Closed Specialty Diagnoses / Procedures Referred By Contac t Referred To Contact Diagnoses Precordial pain Procedures Adult Stress Echo W/ Cont or Stress Agent if Necessary Per Protocol Goyo Khan MD [address] [facility] [address] [place] [address] Phone: tel: fax: [facility] [address] [place] [address] Phone: tel: Referral ID Status Reason Start Date Expiration Date Visits Re quested Visits Authorized [id number] Closed 11/07/2023 11/06/2024 1 1 Encounter Details Date Type Department Care Team (Latest Contact Info) Description 11/07/2023 2:00 PM EDT - 11/07/2023 11:59 PM EDT Hospital Encounter [facility] NONINVASIVE LAB [place] [address] 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 Not on fi le documented as of this encounter Last Filed Vital Signs Vital Sign Reading Time Taken Comments Blood Pressure - - Pulse - - Temperature - - Respiratory Rate - - Oxygen Saturation - - Inhaled Oxygen Concentration - - Weight 93.7 kg (206 lb 9.1 oz) 11/07/2023 3:44 P M EDT Height 167.6 cm (5' 5.98 ) 11/07/2023 3:44 PM ED T Body Mass Index 33.36 11/07/2023 3:44 PM EDT documented in this encounter Medications at Time [...] 02/12/2023 03/03/2024 documented as of this encounter Plan of Treatment Upcoming Encounters Date Type Department Care Team (Late st Contact Info) Description 07/29/2024 10:45 AM EST Office Visit [facility] CARDIOLOGY [address] [facility] [address] [place] [address] Goyo Khan MD [address] [facility] [address] [place] [address] 09/02/2024 11:30 AM EDT Office Visit [facility] CARDIOTHORACIC SURGERY [address] [facility] [address] [place] [phone] Dee Jaimes, MEDICAL RECORDS RECEPTIONIST [address] [place] [address] documented as of this encounter Procedures Procedure Name Priority Date/Time Associated Diagnosis Comments SE QUAD ONLY W/ CONTRAST AND EXERCISE Routine 11/07/2023 3:45 PM EDT Precordial pain documented in this encounter Visit Diagnoses Not on filedocumented in this encounter Administered Medications Inactive Administered Medications - up to 3 most recent administrations Medication Order MAR Action Action Date Dose Rate Site Sulfur Hexafluoride Microsph (LUMASON) 60.7-25 MG IV reconstituted suspension reconstituted suspension 5 mL 5 mL, Intravenous, Once in Imaging, On Fri11/07/23 at 1645, For 1 dose Given 11/07/2023 3:15 PM EDT 5 mL documented in this encounter Care Teams Laboratory Engineer Relationship Specialty Start Date End Date Talon Barragan MD [facility] [place] [facility] [address] [place] [address] PCP - General Family Medicine 03/20/22 documented as of this encounter
--- OUTSIDE RECORDS SUMMARY | 2024-05-04 22:46 | XMS_ITS | Encounter Summary ---
[facility] Address [address] [place] [address] Care Team Providers Care Plumber Assistant Name Role Phone Talon Barragan MD Primary Care Provider Reason for Visit * Reason Comments Med Refill Encounter Details Date Type Department Care Team (Late st Contact Info) Description 03/03/2024 Refill [facility] CARDIOLOGY [address] [facility] [address] [place] [phone] Keesha Claire, SCREW MACHINE SET UP OPERATOR [address] [facility] [address] [place] [address] Med Refill Social History Tobacco Use Types Packs/Day Years [...] 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 Not on fi le documented as of this encounter Plan of Treatment Upcoming Encounters Date Type Department Care Team (Late st Contact Info) Description 07/29/2024 10:45 AM EST Office Visit [facility] CARDIOLOGY [address] [facility] [address] [place] [address] Goyo Khan MD [address] [facility] [address] [place] [address] 09/02/2024 11:30 AM EDT Office Visit [facility] CARDIOTHORACIC SURGERY [address] [facility] [address] [place] [phone] Dee Jaimes APRN [address] [facility] [address] [place] [address] documented as of this encounter Visit Diagnoses Not on filedocumented in this encounter Care Teams Plumber Assistant Relationship Specialty Start Date End Date Talon Barragan MD [address] [facility] [address] [place] [address] PCP - General Family Medicine 03/20/22 documented as of this encounter
--- OUTSIDE RECORDS SUMMARY | 2024-05-04 22:46 | XMS_ITS | Encounter Summary ---
[facility] [address] [place] [address] Care Team Providers Care Sleeve Separator Name Role Phone Talon Barragan MD Primary Care Provider Reason for Referral * Monitoring (Routine) - Closed Specialty Diagnoses / Procedures Referred By Heather santos Referred To Contact Cardiology Diagnoses Shortness of breath Unspecified atrioventricular block Procedures Mobile Cardiac Outpatient Telemetry Goyo Khan MD [address] [facility] [address] [place] [address] Phone: tel: fax: [facility] C[facility]IOLOG[facility] [address] [facility] [address] [place] [address] Phone: tel: fax: Referral ID Status Reason Start Date Expiration Date Visits Re quested Visits Authorized [id number] Closed 12/04/2023 12/03/2024 1 1 Reason for Visit * Reason Onset Date Comments Results 12/04/2023 Encounter Details Date Type Department Care Team (Late st Contact Info) Description 12/04/2023 Telephone [facility] C[facility] [address] [facility] [address] [place] [address] Goyo Khan MD [address] [facility] [address] [place] [address] Results Social History Tobacco Use Types Packs/Day [...] 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 Pt was agreeable to a 30 day monitor. She has an appt tomorrow (12/04). * Telephone Encounter - Luciana Graves RN - 12/04/2023 2:00 PM EDT ----- Message from Goyo Khan sent at 12/04/2023 1:12 PM EDT ----- ?? Average heart rate 79, min. heart [...] Description 07/29/2024 10:45 AM EST Office Visit [facility] C[facility] [address] [facility] [address] [place] [phone] Goyo Khan MD [address] [facility] [address] [place] [address] 09/02/2024 11:30 AM EDT Office Visit [facility] CARDIOTHORACIC SURGERY [address] [facility] [address] [place] [address] Dee Jaimes APRN [address] [facility] [address] [place], [place] [phone] documented as of this encounter Results * Mobile Cardiac Outpatient Telemetry (12/05/2023 11:38 AM EDT) Anatomical Region Laterality Modality Other Narrative 01/12/2024 5:08 PM EDT ?Average HR: 80. Min HR: 50. Max HR: 138. ?Sinus rhythm with nominal ectopy ?Triggered events associated with sinus rhythm and sinus tachycardia Study Description Monitor placed on patient by sj on 12/05/2023 . Instructions were provided to patient on use of holter monitor and duration of monitoring. The monitor was scanned on 01/12/2024. The patient was monitored for 27 days 9 hours and 25 minutes. Indications for this exam include palpitations. Average HR: 80. Min HR: 50. Max HR: 138. us Goyo Khan MD [facility] ORD ERABLES Final Result documented in this encounter Visit Diagnoses Diagnosis Shortness of breath- Primary Unspecified atrioventricular block Shortness of breath Unspecified atrioventricular block documented in this encounter Care Teams Sleeve Separator Relationship Specialty Start Date End Date Talon Barragan MD [address] [place] [address] [facility] [address] [place] [address] PCP - General Family Medicine 03/20/22 documented as of this encounter
--- OUTSIDE RECORDS SUMMARY | 2024-05-04 22:46 | XMS_ITS | Encounter Summary ---
Author Organization [facility] ystem Address [address] [place] [address] Care Team Providers Care Car Rental Manager Name Role Phone Talon Barragan MD Primary Care Provider Reason for Visit * Reason Comments Shortness of Breath Encounter Details Date Type Department Care Team (Late st Contact Info) Description 12/26/2023 9:45 AM EDT Office Visit [facility] CARDIOLOGY [address] [facility] [address] [place] [address] Goyo Khan MD [address] [facility] [address] [place], [place] [phone] Hypertension, unspecified type (Primary Dx) Social History Tobacco Use Types Packs/Day Years Used Date Smoking Tobacco: Never Passive Smoke Exposure: Never Smokeless Tobacco: Never Tobacco Cessation:Counseling Given: Not Answered Alcohol Use Standard Drinks/Week Comments Yes 2 [...] 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 Not on fi le documented as of this encounter Last Filed Vital Signs Vital Sign Reading Time Taken Comments Blood Pressure 150/70 12/26/2023 9:44 AM EDT Pulse 56 12/26/2023 9:44 AM EDT Temperature - - Respiratory Rate - - Oxygen Saturation 100% 12/26/2023 9:44 AM EDT Inhaled Oxygen Concentration - - Weight 91.6 kg (202 lb) 12/26/2023 9:44 AM EDT Height 167.4 cm (5' 5.91 ) 12/26/2023 9:44 AM ED T Body Mass Index 32.7 12/26/2023 9:44 AM EDT documented in this encounter Progress Notes * Goyo Khan MD - 12/26/2023 9:45 AM EDT Chief Complaint Shortness of Breath Subjective History of Present Illness Problem List [...] 12/26/23 Feeling much better with cardiac rehab. Objective Vital Signs: Vitals: 12/26/23 0944 BP: 150/70 Pulse: 56 SpO2: 100% Estimated body mass index is 32.7 kg/m?? as calculated from the following: Height as of this encounter: 167.4 cm (65.91 ). Weight as of this encounter: 91.6 kg (202 lb). Physical Exam HENT: Head: Normocephalic. Eyes: Extraocular [...] Psychiatric: Mood and Affect: Mood normal. Assessment -Stress test showed with exertion has [...] obstruction from small cavity. Partially relieved byBB. Suspect if could cautiously complete cardiac rehab she would feel much much better and is. If those conservative measures fail would consider C or coronary CT angiogram. -cont. monitor -Cont. Aspirin, statin -cont. HTN treatment. Adding valsartan 160 mg. BP has worsened. 6 week follow up Goyo Khan MD 10/09/2023 14:19 EDT documented in this encounter Plan of Treatment Upcoming Encounters Date Type Department Care Team (Late st Contact Info) Description 07/29/2024 10:45 AM EST Office Visit [facility] CARDIOLOGY [address] [facility] [address] [place] [address] Goyo Khan MD [address] [facility] [address] [place] [address] 09/02/2024 11:30 AM EDT Office Visit [facility] CARDIOTHORACIC SURGERY [address] [facility] [address] [place] [address] Dee Jaimes APRN [address] [facility] [address] [place] [address] Scheduled Orders Name Type Priority Associated Diagnoses Orde r Schedule Basic Metabolic Panel Lab Routine Hypertension, unspecified type Expected: 12/31/2023 (Approximate), Expires: 12/25/2024 documented as of this encounter Visit Diagnoses Diagnosis Hypertension, unspecified type- Primary documented in this encounter Care Teams Car Rental Manager Relationship Specialty Start Date End Date Talon Barragan MD [address] [facility] [address] [place] [address] PCP - General Family Medicine 03/20/22 documented as of this encounter
--- OUTSIDE RECORDS SUMMARY | 2024-05-04 22:46 | XMS_ITS | Encounter Summary ---
[facility] Address [address] [place] [address] Care Team Providers Care Popcorn Vendor Name Role Phone Talon Barragan MD Primary Care Provider Reason for Referral * Monitoring (Routine) - Closed Specialty Diagnoses / Procedures Referred By Contac t Referred To Contact Diagnoses Precordial pain Coronary artery disease involving coronary bypass graft of [place] heart, unspecified whether angina present Procedures Holter Monitor - 72 Hour Up [place] [address] [place] [address] [place] [address] Phone: tel: fax: Referral ID Status Reason Start Date Expiration Date Visits Re quested Visits Authorized [id number] Closed 11/07/2023 11/06/2024 1 1 * MRI/CAT/PET Scan (Routine) - Closed Specialty Diagnoses / Procedures Referred By Heather santos Referred To Contact Radiology Diagnoses Precordial pain Coronary artery disease involving coronary bypass graft of [place] heart, unspecified whether angina present Procedures MRI Cardiac Function Complete With & Without Morphology Goyo Khan MD [address] [place] [address] Phone: tel: fax: [address] [place] [address] Phone: tel: Referral ID Status Reason Start Date Expiration Date Visits Re quested Visits Authorized [id number] Closed 11/07/2023 11/06/2024 1 1 Reason for Visit * Reason Onset Date Comments Results 11/07/2023 Encounter Details Date Type Department Care Team (Late st Contact Info) Description 11/07/[address] 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 Great news documented in this encounter Miscellaneous Notes * Telephone Encounter - Lea Hidalgo RN - 11/07/2023 4:37 PM EDT Spoke with patient regarding results per DC. All questions answered and agreeable to treatment plan. * Telephone Encounter - Lea Hidalgo RN - 11/07/2023 4:24 PM EDT ----- Message from Goyo Khan sent at 11/07/2023 4:21 PM EDT ----- Heart is bit thickened which is what [...] 10:45 AM EST Office Visit [facility] CARDIOLOGY [address] [place] [address] Goyo Khan MD [address] [facility] [address] [place] [address] 09/02/2024 11:30 AM EDT Office Visit [facility] CARDIOTHORACIC SURGERY [address] [facility] [address] [place] [address] Dee Jaimes APRN [address] [facility] [address] [place] [address] documented as of this encounter Procedures Procedure Name Priority Date/Time Associated Diagnosis Comments MRI CARDIAC W WO CONTRAST Routine 11/25/2023 6:05 PM EDT Precordial pain Coronary artery disease involving coronary bypass graft of [place] heart, unspecified whether angina present documented in this encounter Results * MRI Cardiac Function Complete With & Without Morphology (11/25/2023 6:05 PM EDT) Anatomical Region Laterality Modality Chest, Body N/A Magnetic Resonan ce us Goyo Khan MD IMG MRI ORDERABLES Iliana l Result * HOLTER MONITOR >7 DAYS UP TO [...] encounter Visit Diagnoses Diagnosis Precordial pain- Primary Coronary artery disease involving coronary bypass graft of [place] heart, unspecified whether angina present Precordial pain Coronary artery disease involving coronary bypass graft of [place] heart, unspecified whether angina present documented in this encounter Care Teams Popcorn Vendor Relationship Specialty Start Date End Date Talon Barragan MD [facility] [address] [facility] 2 [place] [address] PCP - General Family Medicine 03/20/22 documented as of this encounter
--- OUTSIDE RECORDS SUMMARY | 2024-05-04 22:46 | XMS_ITS | Encounter Summary ---
Author Organization [facility] Address [address] [place] [address] Care Team Providers Care Cloth Cutting Machine Operator Name Role Phone Talon Barragan MD Primary Care Provider Reason for Visit * Reason Onset Date Comments Medication Question 10/13/2023 Encounter Details Date Type Department Care Team (Late st Contact Info) Description 10/13/2023 Telephone [facility] CARDIOLOGY [address] [facility] [address] [place] [address] Goyo Khan MD [address] [facility] [address] [place], [place] [id number] Medication Question Social History Tobacco Use Types Packs/Day Years [...] 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 No order was entered after her appointment and she was not sure if she needed to be taking it continuously or just for her CT scan. Per DC note, BB will be used for CTA. Order placed at this time, patient understanding and agreeable to plan. documented in this encounter Plan of Treatment Upcoming Encounters Date Type Department Care Team (Late st Contact Info) Description 07/29/2024 10:45 AM EST Office Visit [facility] CARDIOLOG[facility] [address] [facility] [address] [place] [address] Goyo Khan MD [address] [place] [address] [address] [place] [id number] 09/02/2024 11:30 AM EDT Office Visit [facility] CARDI[facility]ACIC SURGERY [address] [facility] [address] [place] [phone] Dee Jaimes APRN [address] [facility] [address] [place] [address] documented as of this encounter Visit Diagnoses Not on filedocumented in this encounter Care Teams Cloth Cutting Machine Operator Relationship Specialty Start Date End Date Talon Barragan MD [address] [facility] [address] [facility] [address] [place] [address] PCP - General Family Medicine 03/20/22 documented as of this encounter
--- OUTSIDE RECORDS SUMMARY | 2024-05-04 22:46 | XMS_ITS | Encounter Summary ---
[facility] Address [address] [place] [address] Care Team Providers Care Amusement Park Worker Name Role Phone Talon Barragan MD Primary Care Provider Reason for Visit * Reason Comments Hypertension Dyslipidemia * Consultation (Routine) - Closed Specialty Diagnoses / Procedures Referred By Contac t Referred To Contact Cardiology Diagnoses Dyslipidemia Hypertensive heart disease Dee Jaimes, PHYSICIAN PEDIATRICIAN [address] [facility] [address] [place] [address] Phone: tel: fax: [facility] CARDIOLOGY [address] [facility] [address] [place] [address] Phone: tel: fax: Referral ID Status Reason Start Date Expiration Date Visits Re quested Visits Authorized [id number] Closed 09/03/2023 09/02/2024 1 1 Encounter Details Date Type Department Care Team (Late st Contact Info) Description 10/09/2023 1:30 PM EDT Office Visit [facility] CARDIOLOGY [address] [facility] [address] [place] [phone] Goyo Khan MD [address] [facility] [address] [place] [address] Hyperlipidemia, unspecified hyperlipidemia type (Primary Dx); Coronary artery disease involving coronary bypass graft of [place] heart, unspecified whether angina present Social History [...] 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 Not on file Not on fi le documented as of this encounter Last Filed Vital Signs Vital Sign Reading Time Taken Comments Blood Pressure 126/74 10/09/2023 1:29 PM EDT Pulse 94 10/09/2023 1:29 PM EDT Temperature - - Respiratory Rate - - Oxygen Saturation 98% 10/09/2023 1:29 PM EDT Inhaled Oxygen Concentration - - Weight 94.8 kg (209 lb) 10/09/2023 1:29 PM EDT Height 167.6 cm (5' 6 ) 10/09/2023 1:29 PM EDT Body Mass Index 33.73 10/09/2023 1:29 PM EDT documented in this encounter Progress Notes * Goyo Khan MD - 10/09/2023 1:30 PM EDT Chief Complaint Hypertension and Dyslipidemia Subjective History of Present Illness Problem List [...] months. ROS negative except for the above. Objective Vital Signs: Vitals: 10/09/23 1329 BP: 126/74 Pulse: 94 SpO2: 98% Estimated body mass index is 33.73 kg/m?? as calculated from the following: Height as of this encounter: 167.6 cm (66 ). Weight as of this encounter: 94.8 kg (209 lb). Physical Exam HENT: Head: Normocephalic. Eyes: [...] LV function -EKG non specific changes Plan -coronary CT angiogram, BB if needed. ER warnings -Cont. Aspirin, statin -cont. HTN treatment Return in about 4 weeks (around 11/06/2023). Goyo Khan MD 10/09/2023 14:19 EDT documented in this encounter Plan of Treatment Upcoming Encounters Date Type Department Care Team (Late st Contact Info) Description 07/29/2024 10:45 AM EST Office Visit [facility] [address] [place] [address] Goyo Khan MD [address] [facility] [address] [place] [address] 09/02/2024 11:30 AM EDT Office Visit [facility] CARDIOTHORACIC SURGERY [address] [facility] [address] [place] [address] Dee Jaimes APRN [address] [facility] [address] [place], [place] [id number] Scheduled Orders Name Type Priority Associated Diagnoses Orde r Schedule CBC & Differential Lab Panel Routine Hyperlipidemia, unspecified hyperlipidemia type Coronary artery disease involving coronary bypass graft of [place] heart, unspecified whether angina present Expected: 05/17/2024 (Approximate), Expires: 10/08/2024 Comprehensive Metabolic Panel Lab Routine Hyperlipidemia, unspecified hyperlipidemia type Coronary artery disease involving coronary bypass graft of [place] heart, unspecified whether angina present Expected: 05/10/2024 (Approximate), Expires: 10/08/2024 Lipid Panel Lab Routine Hyperlipidemia, unspecified hyperlipidemia type Coronary artery disease involving coronary bypass graft of [place] heart, unspecified whether angina present Expected: 05/19/2024 (Approximate), Expires: 10/08/2024 High Sensitivity CRP Lab Routine Hyperlipidemia, unspecified hyperlipidemia type Coronary artery disease involving coronary bypass graft of [place] heart, unspecified whether angina present Expected: 05/20/2024 (Approximate), Expires: 10/08/2024 Lipoprotein A (LPA) Lab Routine Hyperlipidemia, unspecified hyperlipidemia type Coronary artery disease involving coronary bypass graft of [place] heart, unspecified whether angina present Expected: 05/20/2024 (Approximate), Expires: 10/08/2024 documented as of this encounter Visit Diagnoses Diagnosis Hyperlipidemia, unspecified hyperlipidemia type- Primary Coronary artery disease involving coronary bypass graft of [place] heart, unspecified whether angina present documented in this encounter Care Teams Amusement Park Worker Relationship Specialty Start Date End Date Talon Barragan MD [address] [place] [address] PCP - General Family Medicine 03/20/22 documented as of this encounter
--- OUTSIDE RECORDS SUMMARY | 2024-05-04 22:46 | XMS_ITS | Encounter Summary ---
[facility] Address [address] [place] [address] Care Team Providers Care Diamond Finishing Supervisor Name Role Phone Talon Barragan MD Primary Care Provider Reason for Visit * MRI/CAT/PET Scan (Routine) - Closed Specialty Diagnoses / Procedures Referred By Contac t Referred To Contact Radiology Diagnoses Precordial pain Coronary artery disease involving coronary bypass graft of [place] heart, unspecified whether angina present Procedures MRI Cardiac Function Complete With & Without Morphology Goyo Khan MD [address] [facility] [address] [place] [address] Phone: tel: fax: [facility] [address] [place] [address] Phone: tel: Referral ID Status Reason Start Date Expiration Date Visits Re quested Visits Authorized [id number] Closed 11/07/2023 11/06/2024 1 1 Encounter Details Date Type Department Care Team (Late st Contact Info) Description 11/25/2023 3:36 PM EDT - 11/25/2023 11:59 PM EDT Hospital Encounter [facility] [place] [address] [facility] [address] [place] [phone] Goyo Khan MD [address] [facility] [address] [place] [id number] Discharge Disposition: Home or Self Care Social [...] 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 [address] [place] [phone] Dee Jaimes TREE MARKER [address] [facility] [address] [place] [address] documented as of this encounter Procedures Procedure Name Priority Date/Time Associated Diagnosis Comments MRI CARDIAC W WO CONTRAST Routine 11/25/2023 6:05 PM EDT Precordial pain Coronary artery disease involving coronary bypass graft of [place] heart, unspecified whether angina present documented in this encounter Visit Diagnoses Not on filedocumented in this encounter Administered Medications Inactive Administered Medications - up to 3 most recent administrations Medication Order MAR Action Action Date Dose Rate Site gadobenate dimeglumine (MULTIHANCE) injection 29 mL 29 mL, Intravenous, Once in Imaging, On Fri11/25/23 at 1900, For 1 dose, Vesicant; admin as rapid bolus; flush with 5 mL NS after admin or 20 mL for renal or aortoiliofemoral vasculature Given 11/25/2023 6:06 PM EDT 29 mL documented in this encounter Care Teams Diamond Finishing Supervisor Relationship Specialty Start Date End Date Talon Barragan MD [facility] [address] [place] [address] PCP - General Family Medicine 03/20/22 documented as of this encounter
--- OUTSIDE RECORDS SUMMARY | 2024-05-04 22:46 | XMS_ITS | Encounter Summary ---
[facility] Address [address] [place] [address] Care Team Providers Care Rope Laying Machine Operator Name Role Phone Talon Barragan MD Primary Care Provider Reason for Visit * Reason Comments Precordial pain Encounter Details Date Type Department Care Team (Late st Contact Info) Description 12/05/2023 11:45 AM EDT Office Visit [facility] CARDIOLOGY [address] [facility] [address] [place] [address] Goyo Khan MD [address] [facility] [address] [place] [address] Shortness of breath (Primary Dx); Unspecified atrioventricular block; Precordial pain; Coronary artery disease involving coronary bypass graft of [place] heart, unspecified whether angina present; Chronic stable angina Social History Tobacco Use Types Packs/Day Years [...] 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 file Not on fi le documented as of this encounter Last Filed Vital Signs Vital Sign Reading Time Taken Comments Blood Pressure 136/72 12/05/2023 11:36 AM EDT Pulse 87 12/05/2023 11:36 AM EDT Temperature - - Respiratory Rate - - Oxygen Saturation 97% 12/05/2023 11:36 AM EDT Inhaled Oxygen Concentration - - Weight 93.4 kg (206 lb) 12/05/2023 11:36 AM EDT Height 167.4 cm (5' 5.9 ) 12/05/2023 11:36 AM ED T Body Mass Index 33.35 12/05/2023 11:36 AM EDT documented in this encounter Progress Notes * Goyo Khan MD - 12/05/2023 11:45 AM EDT Chief Complaint Precordial pain Subjective History of Present Illness Problem List [...] 12/05/23 Started BB and feeling some better. Objective Vital Signs: Vitals: 12/05/23 1136 BP: 136/72 Pulse: 87 SpO2: 97% Estimated body mass index is 33.35 kg/m?? as calculated from the following: Height as of this encounter: 167.4 cm (65.9 ). Weight as of this encounter: 93.4 kg (206 lb). Physical Exam HENT: Head: Normocephalic. Eyes: [...] cardiac rehab she would feel much much better. If those conservative measures fail would consider C or coronary CT angiogram. -cont. monitor -Cont. Aspirin, statin -cont. HTN treatment 6 week follow up Goyo Khan MD 10/09/2023 14:19 EDT documented in this encounter Plan of Treatment Upcoming Encounters Date Type Department Care Team (Late st Contact Info) Description 07/29/2024 10:45 AM EST Office Visit [facility] CARDIOLOGY [address] [facility] [address] [place] [address] Goyo Khan MD [address] [facility] [address] [place] [address] 09/02/2024 11:30 AM EDT Office Visit [facility] CARDIOTHORACIC SURGERY [address] [facility] [address] [place] [phone] Dee Jaimes APRN [address] [facility] [address] [place] [address] documented as of this encounter Visit Diagnoses Diagnosis Shortness of breath- Primary Unspecified atrioventricular block Precordial pain Coronary artery disease involving coronary bypass graft of [place] heart, unspecified whether angina present Chronic stable angina documented in this encounter Care Teams Rope Laying Machine Operator Relationship Specialty Start Date End Date Talon Barragan MD [address] [facility] [address] [place] [address] PCP - General Family Medicine 03/20/22 documented as of this encounter
--- OUTSIDE RECORDS SUMMARY | 2024-05-04 22:46 | XMS_ITS | Encounter Summary ---
[facility] Organization [facility] Address [address] [place] [address] Care Team Providers Care Assistant Site Manager Name Role Phone Talon Barragan MD Primary Care Provider Reason for Visit * Reason Comments Follow-up 1 YR FU with CTA [facility] for Hx of TEVAR 04/26/22 Encounter Details Date Type Department Care Team (Late st Contact Info) Description 09/03/2023 12:30 PM EDT Office Visit [facility] CARDIOTHORACIC SURGERY [address] [facility] [address] [place] [phone] Dee Jaimes, YEAST MAKER [address] [facility] [address] [place] [address] Aneurysm of descending thoracic aorta without rupture (Primary Dx); Brachial artery thrombosis Social History Tobacco Use Types Packs/Day Years [...] 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 Not on fi le documented as of this encounter Last Filed Vital Signs Vital Sign Reading Time Taken Comments Blood Pressure 140/80 09/03/2023 12:45 PM EDT Pulse 72 09/03/2023 12:44 PM EDT Temperature 36.3 ??C (97.3 ??F) 09/03/2023 1 2:44 PM EDT Respiratory Rate - - Oxygen Saturation 98% 09/03/2023 12: 44 PM EDT Inhaled Oxygen Concentration - - Weight 95.7 kg (211 lb) 09/03/2023 12:4 4 PM EDT Height 167.6 cm (5' 6 ) 09/03/2023 12:4 4 PM EDT patient reported Body Mass Index 34.06 09/03/2023 12:44 PM EDT documented in this encounter Progress Notes * Dee Jaimes APRN - 09/03/2023 12:30 PM EDT Images from the original note were not included. [facility] Cardiothoracic Surgery Office Follow Up Note Date of Encounter: 09/03/2023 Name: Juany Alarcon : 1950 Referred By: No ref. provider found PCP: Talon Barragan MD Chief Complaint: Chief Complaint Patient presents with Follow-up 1 YR FU with CTA Chest for Hx of TEVAR 04/26/22 Subjective History of Present Illness: Juany Alarcon is a 73 y.o. female followed by Dr. Muse s/p TEVAR for thoracic aortic [id number]/2/2022. PMH: HTN, saccular descending thoracic aortic aneurysm s/p TEVAR, acute right upper extremity limb ischemia/ occlusion right brachial artery s/p thromboembolectomy 05/15/[address] Muse, DIOGENES on CPAP, Hx breast cancer, dyslipidemia, prediabetes, and chronic low back pain/ lumbar disc disease. Last seen in clinic 08/29/[address] Muse with plans to discontinue Eliquis early September 2022. She presents to vascular surgery clinic today for annual CTA of chest for surveillance for endovascular repair. Current medical therapy includes statin, beta-elpidio, and aspirin. [facility] 06/30/[address] Roque Calero related to paresthesias of the right upper extremity. CTA chest demonstrated patent right aortic arch stent graft patent without endoleak. RUE arterial flowwas free from stenosis or thrombus. Review of Systems: Review of Systems Constitutional: Negative for chills, decreased appetite, diaphoresis, fever, malaise/fatigue, nightsweats, weight gain and weight loss. HENT: Negative for hoarse voice. Eyes: Negative for blurred vision, double vision and visual disturbance. Cardiovascular: Positive for dyspnea on exertion. Negative for chest pain, claudication, irregular heartbeat, leg swelling, near-syncope, orthopnea, palpitations, paroxysmal nocturnal dyspnea and syncope. Respiratory: Positive for shortness of breath. Negative for cough, hemoptysis, sputum production and wheezing. Hematologic/Lymphatic: Negative for adenopathy and bleeding problem. Does not bruise/bleed easily. Skin: Negative for color change, nail changes, poor wound healing and rash. Musculoskeletal: Positive for back pain. Negative for falls and muscle cramps. Gastrointestinal: Negative for abdominal pain, dysphagia and heartburn. Genitourinary: Negative for flank pain. Neurological: Negative for brief paralysis, disturbances in coordination, dizziness, focal weakness, headaches, light-headedness, loss of balance, numbness, paresthesias, sensory change, vertigo and weakness. Psychiatric/Behavioral: Negative for depression and suicidal ideas. Allergic/Immunologic: Negative for persistent infections. I have reviewed the following portions of the patient's history: problem list, current medications,allergies, past surgical history, past medical history, past social history, past family history, and ROS and confirm it's accurate. Allergies: Allergies Allergen Reactions Morphine And Related Confusion Penicillins Rash Has tolerated Cefazolin in the past Medications: Current Outpatient Medications: aspirin 81 MG EC tablet, Take 1 tablet by mouth Daily. OTC, Disp: 90 tablet, Rfl: 3 bisoprolol-hydrochlorothiazide (ZIAC) 5-6.25 MG per tablet, Take 1 tablet by mouth Daily., Disp: 90tablet, Rfl: 3 cetirizine (zyrTEC) 10 MG tablet, Take 1 tablet by mouth Daily., Disp: , Rfl: Cholecalciferol (VITAMIN D3) 2000 units tablet, Take 1 tablet by mouth Daily. OTC, Disp: , Rfl: cyanocobalamin (VITAMIN B-12) 500 MCG tablet, Take 1 tablet by mouth Daily. OTC, Disp: , Rfl: cyclobenzaprine (FLEXERIL) 5 MG tablet, Take 1 tablet by mouth 3 (Three) Times a Day As Needed for Muscle Spasms., Disp: 20 tablet, Rfl: 0 diclofenac (VOLTAREN) 75 MG EC tablet, Take 1 tablet by mouth., Disp: , Rfl: mometasone (ASMANEX TWISTHALER) inhaler 110 mcg/inhalation, Inhale 2 puffs Daily. PRN, Disp: , Rfl: montelukast (SINGULAIR) 10 MG tablet, Take 1 tablet by mouth Every Night., Disp: , Rfl: potassium chloride (K-DUR,KLOR-CON) 20 MEQ CR tablet, Take 1 tablet by mouth Daily., Disp: 90 tablet, Rfl: 3 Probiotic Product (PROBIOTIC PO), Take 1 tablet by mouth Daily. OTC, Disp: , Rfl: rosuvastatin (CRESTOR) 10 MG tablet, Take 1 tablet by mouth Every Night., Disp: 90 tablet, Rfl: 3 metoclopramide (REGLAN) 5 MG tablet, Take 1 tablet by mouth Daily. (Patient not taking: Reported on09/03/2023), Disp: , Rfl: oxybutynin XL (DITROPAN-XL) 5 MG 24 hr tablet, Take 1 tablet by mouth Daily. (Patient not taking: Reported on 09/03/2023), Disp: , Rfl: History: Past Medical History: Diagnosis Date Abnormal CT [...] dehydration related to sinusitis- data deficit Weakness Past Surgical History: Procedure Laterality Date AORTAGRAM N/A 04/26/2022 Procedure: TEVAR; Surgeon: Nile Muse MD; Location: [facility]; Service: Vascular; Laterality: N/A; Fluoro: 7min 14 sec Dose: 2552mGy Contrast: Isovue 300- 110ml SECTION 1990 CHOLECYSTECTOMY 05/2004 COLONOSCOPY COMPLETE MASTECTOMY W/ SENTINEL NODE BIOPSY Left FEMORAL THROMBECTOMY/EMBOLECTOMY Right 05/15/2022 Procedure: RIGHT BRACHIAL ARTERY CUTDOWN AND EXPLORATION, DENNISE THROMBOECTOMY, RIGHT UPPER EXTREMITY ANTERIOGRAM; Surgeon: Nile Muse MD; Location: [facility]; Service: Cardiothoracic; Laterality: Right; FLUORO 6 SECONDS DOSE 0.36 mGy CONTRAST 5ml KNEE SURGERY Right replacement ORIF HIP FRACTURE Right spring TONSILLECTOMY N/A TOTAL KNEE ARTHROPLASTY Left 2019 left Social History Socioeconomic History Marital status: Number of children: 1 Tobacco Use Smoking status: Never Smokeless tobacco: Never Vaping Use Vaping status: Never Used Substance and Sexual Activity Alcohol use: Yes Alcohol/week: 2.0 standard drinks of alcohol Types: 2 Drinks containing 0.5 oz of alcohol per week Comment: social Drug use: No Sexual activity: Defer Family History Problem Relation Age of Onset Hypertension Mother Heart disease Father Hypertension Father Hypertension Sister Objective Physical Exam: Vitals: 09/03/23 1244 09/03/23 1245 BP: 120/80 140/80 BP Location: Right arm Left arm Patient Position: Sitting Sitting Pulse: 72 Temp: 97.3 ??F (36.3 ??C) SpO2: 98% Weight: 95.7 kg (211 lb) Height: 167.6 cm (66 ) Comment: patient reported Body mass index is 34.06 kg/m??. Physical Exam Vitals reviewed. Constitutional: General: She is not in acute distress. Appearance: She is well-developed and well-groomed. HENT: Head: Normocephalic and atraumatic. Eyes: General: Lids are normal. Conjunctiva/sclera: Conjunctivae normal. Neck: Vascular: No carotid bruit. Cardiovascular: Rate and Rhythm: Normal rate and regular rhythm. Pulses: Carotid pulses are 2+ on the right side and 2+ on the left side. Radial pulses are 2+ on the right side and 2+ on the left side. Dorsalis pedis pulses are 2+ on the right side and 2+ on the left side. Posterior tibial pulses are 2+ on the right side and 2+ on the left side. Heart sounds: S1 normal and S2 normal. No murmur heard. Pulmonary: Effort: Pulmonary effort is normal. No respiratory distress. Breath sounds: Normal breath sounds. Musculoskeletal: General: Normal range of motion. Cervical back: Normal range of motion and neck supple. Right lower leg: No edema. Left lower leg: No edema. Skin: General: Skin is warm and dry. Capillary Refill: Capillary refill takes less than 2 seconds. Neurological: General: No focal deficit present. Mental Status: She is alert and oriented to person, place, and time. Psychiatric: Attention and Perception: Attention normal. Mood and Affect: Mood normal. Speech: Speech normal. Behavior: Behavior normal. Behavior is cooperative. Imaging/Labs: Duplex Venous Upper Extremity - RIGHT 06/30/2023 Interpretation Summary Normal right upper extremity venous duplex scan. CT ANGIOGRAM CHEST, CT UPPER EXTREMITY RIGHT W CONTRAST: 06/30/2023 (Personally reviewed and agree w/Radiology assessment) Impression 1.No acute abnormality is identified within the [...] axillary, brachial, radial, and ulnar arteries appear otherwisepatent without significant stenosis. Dorsal interosseous artery is not well visualized beyond the distal forearm. Electronically Signed: Gerald Mcbride MD 06/30/2023 1:06 PM EST 05/14/2022 CT ANGIOGRAM CHEST, CT ANGIOGRAM UPPER EXTREMITY RIGHT IMPRESSION: There is nonopacification of the brachial artery proximal to the radial and ulnar artery origins just beyond the antecubital fossa, concerning for thrombotic occlusion. Satisfactory in stable appearance of stented right-sided aortic arch. No acute nonvascular findings in the chest. Findings relayed to emergency room ordering physician by Edwardo Price via the messaging system in the electronic medical record at 6:44 PM 05/14/2022 This report was finalized on 05/14/2022 6:45 PM by Edwardo Price. Assessment / Plan Assessment / Plan: 1. Aneurysm of descending thoracic aorta s/p TEVAR 2. Brachial artery thrombosis s/p thromboembolectomy - 73 y.o. female followed by Dr. Muse s/p TEVAR for thoracic aortic aneurysm 04/26/2022. - PMH: HTN, saccular descending thoracic aortic aneurysm s/p TEVAR, acute right upper extremity limb ischemia/ occlusion right brachial artery s/p thromboembolectomy 05/15/[address] Muse, DIOGENES on CPAP, Hx breast cancer, dyslipidemia, prediabetes, and chronic low back pain/ lumbar disc disease. - Last seen in clinic 08/29/[address] Muse with plans to discontinue Eliquis early September 2022. - Presents to vascular surgery clinic today for annual surveillance CTA chest: stable endograft with patent RUE vasculature - Compliant w/ statin, beta-elpidio, and aspirin. - BP @ goal and monitored at home - Denies any unusual chest or back pain - Will plan RTC one year with annual surveillance CTA chest - Patient wishes to establish with [facility] again since prison of her Rotary Kiln Operator, Dr. Salinas. Referral sent. - Continue to follow with PCP, Dr. Barragan. Patient Education: Continue to maintain strict BP control w/ goal <130/80 mmHg. Continue to avoid tobacco use. Follow Up: Return in about 1 year (around 09/02/2024) for CTA chest. Or sooner for any further concerns or worsening sign and symptoms. If unable to reach us in the office please dial 911 or go to the nearest emergency department. Dee Jaimes APRN [facility] Cardiothoracic Surgery Time Spent: I spent 28 minutes caring for Juany on this date of service. This time includes time spent by me in the following activities: preparing for the visit, reviewing tests, obtaining and/or reviewing a separately obtained history, performing a medically appropriate examination and/or evaluation, counseling and educating the patient/family/caregiver, referring and communicating with other health resident care director, documenting information in the medical record, and care coordination. documented in this encounter Plan of Treatment Upcoming Encounters Date Type Department Care Team (Late st Contact Info) Description 07/29/2024 10:45 AM EST Office Visit [facility] CARDIOLOGY [address] [facility] [address] [place] [phone] Goyo Khan MD [address] [facility] [address] [place] [address] 09/02/2024 11:30 AM EDT Office Visit [facility] CARDIOTHORACIC SURGERY [address] [facility] [address] [place] [phone] Dee Jaimes APRN [address] [facility] [address] [place] [address] documented as of this encounter Visit Diagnoses Diagnosis Aneurysm of descending thoracic aorta without rupture- Primary Brachial artery thrombosis documented in this encounter Care Teams Assistant Site Manager Relationship Specialty Start Date End Date Talon Barragan MD [address] [facility] [address] [place] [address] PCP - General Family Medicine 03/20/22 documented as of this encounter
--- OUTSIDE RECORDS SUMMARY | 2024-05-04 22:46 | XMS_ITS | Encounter Summary ---
[facility] Organization [facility] Address [address] [place] [address] Care Team Providers Care Computer Application Developer Name Role Phone Talon Barragan MD Primary Care Provider Reason for Visit * Monitoring (Routine) - Closed Specialty Diagnoses / Procedures Referred By Contac t Referred To Contact Cardiology Diagnoses Shortness of breath Unspecified atrioventricular block Procedures Mobile Cardiac Outpatient Telemetry Goyo Kahn MD [address] [facility] [address] [place] [address] Phone: tel: fax: [facility] CARDIOLOGY [address] [facility] [address] [place] [address] Phone: tel: fax: Referral ID Status Reason Start Date Expiration Date Visits Re quested Visits Authorized [id number] Closed 12/04/2023 12/03/2024 1 1 Encounter Details Date Type Department Care Team (Latest Contact Info) Description 12/05/2023 11:40 AM EDT Ancillary Procedure [facility] CARDIOLOGY [address] [place] [address] Shortness of breath; Unspecified atrioventricular block Social History Tobacco Use Types Packs/Day Years [...] 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 Average HR: 80. Min HR: 50. Max HR: 138. ?? Sinus rhythm with nominal ectopy ?? Triggered events associated with sinus rhythm and sinus tachycardia documented in this encounter Plan of Treatment Upcoming Encounters Date Type Department Care Team (Late st Contact Info) Description 07/29/2024 10:45 AM EST Office Visit [facility]IOLOGY [address] [place] [phone] Goyo Khan MD [address] [facility] [address] [place] [address] 09/02/2024 11:30 AM EDT Office Visit [facility] CARDIOTHORACIC SURGERY [address] [facility] [address] [place] [address] Dee Jaimes APRN [address] [facility] [address] [place], [place] [phone] documented as of this encounter Procedures Procedure Name Priority Date/Time Associated Diagnosis Comments MOBILE CARDIAC OUTPATIENT TELEMETRY Routine 12/05/2023 11:38 AM EDT Shortness of breath Unspecified atrioventricular block documented in this encounter Results * Mobile Cardiac Outpatient Telemetry (12/05/2023 11:38 AM EDT) Anatomical Region Laterality Modality Other Narrative 01/12/2024 5:08 PM EDT ?Average HR: 80. Min HR: 50. Max HR: 138. ?Sinus rhythm with nominal ectopy ?Triggered events associated with sinus rhythm and sinus tachycardia Study Description Monitor placed on patient by on 12/05/2023 . Instructions were provided to [...] this encounter Visit Diagnoses Diagnosis Shortness of breath Unspecified atrioventricular block documented in this encounter Care Teams Computer Application Developer Relationship Specialty Start Date End Date Talon Barragan MD [address] [facility] [address] [place] [address] PCP - General Family Medicine 03/20/22 documented as of this encounter
--- OUTSIDE RECORDS SUMMARY | 2024-05-04 22:47 | XMS_ITS | Encounter Summary ---
[facility] Address [address] [place] [address] Care Team Providers Care Steam Shovel Operator Name Role Phone Talon Barragan MD Primary Care Provider Reason for Visit * Reason Comments Hypertensive heart disease without heart failure Encounter Details Date Type Department Care Team (Late st Contact Info) Description 02/12/2023 11:00 AM EDT Office Visit [facility] CARDIOLOGY [address] [place] [phone] Keesha Claire, DENITRATOR OPERATOR [address] [place] [address] Dyspnea on exertion (Primary Dx); Essential hypertension; Dyslipidemia Social History Tobacco Use Types Packs/Day Years [...] Feels Unsafe at Home or Work/School no 05/14/2022 Feels Threatened by Someone no 04/26 Does Anyone Try to Keep You From Having Contact with Others or Doing Things Outside Your Home? no 05/14/2022 Physical Signs of Abuse Present no 05/14/2022 Housing Stability Answer Date Recorded Current Living Arrangements home 04/26 Potentially Unsafe Housing Conditions Not on ez e 05/15/2022 Disabilities Answer Date Recorded Difficulty Concentrating, Remembering or Making Decisions no 05/14/2022 Difficulty Managing Errands Independently no 05/14/2022 Education Answer Date Recorded Help with school or training? Not on file Preferred Language [place] Islander 04/22/2022 Comments No Sex and Gender Information Value Date Recorded Sex Assigned at Not on file Legal Sex Female 1:29 PM EDT Gender Identity Not on file Sexual Orientation Not on file documented as of this encounter Last Filed Vital Signs Vital Sign Reading Time Taken Comments Blood Pressure 110/50 02/12/2023 10:51 AM EDT Pulse 68 02/12/2023 10:51 AM EDT Temperature - - Respiratory Rate - - Oxygen Saturation 98% 02/12/2023 10:51 AM EDT Inhaled Oxygen Concentration - - Weight 92.8 kg (204 lb 9.6 oz) 02/12/2023 10:49 AM EDT Height 167.6 cm (5' 6 ) 02/12/2023 10:49 AM EDT Body Mass Index 33.02 02/12/2023 10:49 AM EDT documented in this encounter Progress Notes * Keesha Claire, CAMPBELL - 02/12/2023 11:00 AM EDT Subjective: Encounter Date:02/12/2023 Patient ID: Juany Alarcon is a 72 y.o. . 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 REFERRING PHYSICIAN/PRICE CHANGER: Bassem Barragan MD CURRENT PHYSICIAN: Rafael Barajas MD PRIVACY ATTORNEY: Katarina Tan MD NEUROSURGEON: Adrian Faye MD/ Edwin Fernandez MD ([facility]) ORTHOPEDIC SURGEON: Josh Arellano MD ONCOLOGIC SURGEON: Roque Crouch MD SLEEP PHYSICIAN: Fito Mederos MD. TECHNOLOGY TRAINING ASSOCIATE: Baylee Gross DO VASCULAR SURGEON: Niel Muse MD Chief Complaint: Chief Complaint Patient presents with Hypertensive heart disease without heart failure Problem List: Possible hypertensive cardiovascular disease: Remote progressive chest pain syndrome with exertional bilateral arm pain suggestive of CCS class III angina pectoris with acceptable nuclear GXT, LVEF 0.72, spring 2001, with empiric medical therapyinitiated. CCS class II/NYHA II-III dyspnea on exertion and fatigue May 2016, with acceptable Cardiolite GXT (LVEF > 0.70) following exercise to 90% predicted maximum heart rate and 85% predicted exercise capacity, May 2016. Residual class I symptoms, June 2021. Cardiolite GXT, 11/28/2021: Acceptable probably negative limited quantitative SPECT gated Cardiolite CT scan exercise stress test without definitive ischemic ST-T changes or myocardial perfusion abnormalities suggestive of low probability for significant focal obstructive coronary artery disease with preserved systolic left ventricular function (LVEF 0.77) following exercise to 89% predicted maximal heart rate and only 72% predicted exercise capacity consistent with moderate physical deconditioning. Echocardiogram 04/04/2022: LVEF 60%, cardiac valves anatomically and functionally normal CCS class 0 angina/NYHA class II BENITEZ December 2021, June 2022, January 2023 Labile hypertension. Migraine headaches. Intermittent sinusitis/allergic rhinitis. Hiatal hernia/probable GERD syndrome with recent progressive dyspepsia and apparent acceptable EGD/colonoscopy, 2018 - data deficit Intermittent chronic low back pain. H/O sleep apnea with CPAP use. Post-menopausal status. Abnormal head CT scans, calcified right-sided meningioma, August 2001. Remote operations: section, 1990. Laparoscopic cholecystectomy, May 2004. Right hip ORIF, spring 2008. Abnormal cervical spine series suggestive of cervical spine osteoarthritis, August 2001. Mild-moderate obesity (BMI 35.93). Intractable right knee pain with subsequent right knee arthroscopic surgery and apparent meniscus resection - data deficit, April 2006 with persistent disabling symptoms and apparent intra-articular injections, 2006, with subsequent right total knee replacement surgery - data deficit, winter 2007. Hospitalization for intractable nausea, weakness, increased syncope with apparent dehydration related to sinusitis - data deficit, July 2006. Recent symptomatic numbness and tingling in hands, probable carpal tunnel syndrome. Dyslipidemia (8.4% 10-year risk ASCVD; 4.5% with treatment) Remote apparent acceptable mammography (spring 2014), with subsequent development of inverted left nipple with findings of invasive grade I lobular carcinoma with scattered small foci (December-January 2015), with negative left axillary lymph node biopsy and apparent negative BRAC2 assessment with c ontemplated left mastectomy (May 2015). Bilateral carpal tunnel release, January 2018 Sciatic back pain, April 2018 Left total knee replacement September 2018 Recent concern about thyromegaly with apparent acceptable ultrasound - data deficit, 2019. Prediabetes; hemoglobin A1c 6.4% March 2022, 6.1% June 2022 Dyspnea with PFTs January 2022 showing no airway obstruction but lung volumes were consistent with restrictive lung disease and diffusing capacity substantially reduced. Descending aortic aneurysm with CTA chest January 2022 showing no PE, but had a right aortic archand probably associated developmental vascular abnormality seen as a small eccentric proximal descending aortic aneurysm with some mass- effect on the esophagus and trachea, now status post TEVAR witha 28 x 100 mm War conformable tag thoracic stent graft at proximal descending thoracic aorta 04/26/2022 CTA chest/arm April 2022 with nonopacification of the brachial artery proximal into the radial and ulnar artery origins just beyond the antecubital fossa concerning for thrombotic occlusion, CHELY 05/14/2022 showing triphasic waveforms throughout the left upper extremity, elevated velocities in the proximal right subclavian with monophasic waveforms. Monophasic waveforms noted throughout the RU E distally. No focal hemodynamically significant stenoses visualized. 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 She had reexploration 05/15/2022 and thrombectomy of the right brachial artery. She was placed on Eliquis at discharge with recommendations to continue Eliquis a minimum of 6 months. Allergies Allergen Reactions Morphine And Related Confusion Penicillins Rash Current Outpatient Medications Medication Instructions albuterol sulfate HFA 108 (90 Base) MCG/ACT inhaler 2 puffs, Inhalation, Every 4 Hours PRN aspirin 81 mg, Oral, Daily, OTC bisoprolol-hydrochlorothiazide (ZIAC) 5-6.25 MG per tablet 1 tablet, Oral, Daily cetirizine (ZYRTEC) 10 mg, Oral, Daily cyanocobalamin (VITAMIN B-12) 500 mcg, Oral, Daily, OTC meloxicam (MOBIC) 7.5 MG tablet No dose, route, or frequency recorded. metoclopramide (REGLAN) 5 mg, Oral, Daily mometasone (ASMANEX TWISTHALER) inhaler 110 mcg/inhalation 2 puffs, Inhalation, Daily - RT, PRN mometasone (NASONEX) 50 MCG/ACT nasal spray 2 sprays, Nasal, As Needed montelukast (SINGULAIR) 10 mg, Oral, Nightly oxybutynin XL (DITROPAN-XL) 5 mg, Oral, Daily potassium chloride (K-DUR,KLOR-CON) 20 MEQ CR tablet 20 mEq, Oral, Daily Probiotic Product (PROBIOTIC PO) 1 tablet, Oral, Daily, OTC rosuvastatin (CRESTOR) 10 mg, Oral, Nightly Vitamin D3 2,000 Units, Oral, Daily, OTC HISTORY OF PRESENT ILLNESS: The patient is here for 6-month follow-up.The patient had an abnormal acceptable stress test November 2021 with low probability for significant focal obstructive CAD with normal EF, and demonstrated moderate physical deconditioning but no evidence of ischemia. Patient is now status post TEVAR as well as right brachial artery reexploration and thrombectomy April 2022. She was recommended to stay onEliquis for at least 6 months per CTS. She saw Dr. Muse in August 2022 with recommendations to stopEliquis in September 2022 and to stay on aspirin indefinitely. She denies any chest pain, increased shortness of breath, palpitations, dizziness, presyncope, or syncope. She rarely has to use her inhaler but when she does it helps. She denies any edema. She has been trying to watch her diet and has lost some weight. She sometimes will have little shortness of breath if she goes up a lot of stairs at once. ROS All other systems reviewed and otherwise negative. Procedures Objective: Vitals: 02/12/23 1049 02/12/23 1051 BP: 120/60 110/50 BP Location: Left arm Left arm Patient Position: Sitting Standing Cuff Size: Adult Adult Pulse: 68 68 SpO2: 98% 98% Weight: 92.8 kg (204 lb 9.6 oz) Height: 167.6 cm (66 ) Body mass index is 33.02 kg/m??. Last weight June 2022 was 212 pounds Constitutional: Appearance: Healthy appearance. Not in distress. Neck: Vascular: No JVR. JVD normal. Pulmonary: Effort: Pulmonary effort is normal. Breath sounds: Decreased breath sounds present. No wheezing. No rhonchi. No rales. Chest: Chest wall: Not tender to palpatation. Cardiovascular: PMI at left midclavicular line. Normal rate. Regular rhythm. Normal S1. Normal S2. Murmurs: There is no murmur. No gallop. No click. No rub. Pulses: Intact distal pulses. Edema: Peripheral edema absent. Abdominal: General: Bowel sounds are normal. Palpations: Abdomen is soft. Tenderness: There is no abdominal tenderness. Musculoskeletal: Normal range of motion. General: No tenderness. Skin: General: Skin is warm and dry. Neurological: General: No focal deficit present. Mental Status: Alert and oriented to person, place and time. Lab Review: Lab Results Component Value Date GLUCOSE 129 (H) 05/15/2022 BUN 18 05/15/2022 CREATININE 0.88 05/15/2022 EGFRIFNONA 57 (L) 06/20/2020 EGFRIFAFRI 66 06/20/2020 BCR 20.5 05/15/2022 CO2 23.0 05/15/2022 CALCIUM 9.2 05/15/2022 PROTENTOTREF 6.7 06/20/2020 ALBUMIN 3.60 05/14/2022 LABIL2 1.6 06/20/2020 AST 20 05/14/2022 ALT 16 05/14/2022 Lab Results Component Value Date WBC 8.43 05/15/2022 HGB 10.8 (L) 05/15/2022 HCT 33.2 (L) 05/15/2022 MCV 93.8 05/15/2022 PLT 190 05/15/2022 Lab Results Component Value Date HGBA1C 6.10 (H) 07/12/2022 Lab Results Component Value Date TSH 1.210 06/20/2020 Lab Results Component Value Date CHOL 122 07/12/2022 Lab Results Component Value Date TRIG 96 07/12/2022 TRIG 84 06/20/2020 Lab Results Component Value Date HDL 53 07/12/2022 HDL 53 06/20/2020 Lab Results Component Value Date LDL 51 07/12/2022 LDL 62 06/20/2020 Lab Results Component Value Date BNP 8.0 05/29/2016 02/10/2023: CMP: Sodium 140, potassium 4.4, chloride 106, carbon dioxide 26, BUN 15, creatinine 0.9, GFR 62, glucose 126, calcium 9.1, bilirubin 0.7, AST 28, ALT 29, protein 6, albumin 3.8, globulin 2.2, alkaline phosphatase 88 TSH 1.44 CBC: WBC 6.8, RBC 4.49, hemoglobin 13, hematocrit 41.8, MCV 93.1, MCH 29, MCHC 31.2, platelets 199,MPV 9, RDW 14.3, neutrophils 61.4, lymphocytes 29.2, monocytes 6.7, eos 2.3, basos 0.4 Hemoglobin A1c 6.1% Lipid panel: Cholesterol 112, triglycerides 105, HDL 51, LDL 45.23 Advance Care Planning ACP discussion was held with the patient during this visit. Patient has an advance directive (not in EMR), copy requested. Assessment: Overall continued acceptable course with no new interim cardiopulmonary complaints with acceptable functional status. We will defer additional diagnostic or therapeutic intervention from a cardiac perspective at this time. I am pleased with her recent laboratory testing results. Diagnosis Plan 1. Dyspnea on exertion No recurrent angina pectoris or CHF on current activity schedule; continue current treatment 2. Essential hypertension Controlled, continue current cardiac medications 3. Dyslipidemia Acceptable lipid panel January 2023, continue rosuvastatin Plan: Patient to continue current medications and close follow up with the above providers. Tentative cardiology follow up in August 2023 or patient may return sooner PRN. Electronically signed by Keesha Claire APRN, 02/12/23, 11:29 AM EDT. documented in this encounter Plan of Treatment Upcoming Encounters Date Type Department Care Team (Late st Contact Info) Description 07/29/2024 10:45 AM EST Office Visit [facility] CARDIOLOGY [address] [facility] [address] [place] [address] Goyo Khan MD [facility] [address] [place] [address] 09/02/2024 11:30 AM EDT Office Visit [facility] CARDIOTHORACIC SURGERY [address] [facility] [address] [place] [phone] Dee Jaimes APRN [address] [facility] [address] [place] [address] documented as of this encounter Visit Diagnoses Diagnosis Dyspnea on exertion- Primary Other dyspnea and respiratory abnormality Essential hypertension Unspecified essential hypertension Dyslipidemia Other and unspecified hyperlipidemia documented in this encounter Care Teams Steam Shovel Operator Relationship Specialty Start Date End Date Talon Barragan MD [facility] [address] [facility] [address] [place] [address] PCP - General Family Medicine 03/20/22 documented as of this encounter
--- OUTSIDE RECORDS SUMMARY | 2024-05-04 22:47 | XMS_ITS | Encounter Summary ---
Author Organization [facility] Address [address] [place] [address] Care Team Providers Care Airplane Cabin Attendant Name Role Phone Talon Barragan MD Primary Care Provider Reason for Visit * Reason Comments Dyspnea on Exertion F/u Encounter Details Date Type Department Care Team (Late st Contact Info) Description 05/30/2022 12:45 PM EST Office Visit [facility] PULMONARY & CRITICAL CARE MEDICINE [address] [place] [address] Baylee Gross V., DO [address] [place] [address] Dyspnea on exertion (Primary Dx); Obstructive sleep apnea on CPAP Social History Tobacco Use Types Packs/Day Years Used Date Smoking Tobacco: Never Smokeless Tobacco: Never Tobacco Cessation:Counseling Given: [...] or training? Not on file Preferred Language Thai 04/22/2022 Comments No Sex and Gender Information Value Date Recorded Sex Assigned at Not on file Legal Sex Female 1:29 PM EDT Gender Identity Not on file Sexual Orientation Not on file documented as of this encounter Last Filed Vital Signs Vital Sign Reading Time Taken Comments Blood Pressure 148/76 05/30/2022 12:32 PM EST Pulse 80 05/30/2022 12:32 PM EST Temperature 36.3 ??C (97.3 ??F) 05/30/2022 1 2:32 PM EST Respiratory Rate 18 05/30/2022 12:3 2 PM EST Oxygen Saturation 98% 05/30/2022 12: 32 PM EST room air at rest Inhaled Oxygen Concentration - - Weight 95.4 kg (210 lb 4 oz) 05/30/2022 12:32 PM EST Height 167.6 cm (5' 5.98 ) 05/30/2022 1 2:32 PM EST Body Mass Index 33.95 05/30/2022 12:32 PM EST documented in this encounter Progress Notes * Nile Muse MD - 05/30/2022 12:45 PM ESTAddended by: NILE MUSE on: 06/13/2022 10:58 AM Modules accepted: Orders * Baylee Gross DO - 05/30/2022 12:45 PM EST Pulmonary Office Follow Up Subjective Chief Complaint: Shortness of Breath Juany Alarcon is a 72 y.o. female is being seen in follow up for Asthma History of Present Illness Ms. Alarcon is a 72yo F who is followed for shortness of breath. She was last seen in clinic on 03/20/22. Since her last visit, she underwent an elective TEVAR by Dr. Muse on 04/26/22. [facility] a right brachial artery thrombosis s/p thrombectomy by Dr. Muse on 05/15/22. She returns to clinic today for follow up. She thinks that her breathing may be a little better. She has not really used the inhaler from her last visit. She is taking it slow with activity. The following portions of the patient's history were reviewed and updated as appropriate: allergies, current medications, past family history, past medical history, past social history, past surgicalhistory and problem list. Review of Systems Constitutional: Positive for activity change. HENT: Negative. Eyes: Negative. Respiratory: Positive for shortness of breath. Cardiovascular: Negative. Gastrointestinal: Negative. Endocrine: Negative. Genitourinary: Negative. Musculoskeletal: Negative. Skin: Negative. Allergic/Immunologic: Negative. Neurological: Negative. Hematological: Negative. Psychiatric/Behavioral: Negative. Objective Blood pressure 148/76, pulse 80, temperature 97.3 ??F (36.3 ??C), resp. rate 18, height 167.6 cm (65.98 ), weight 95.4 kg (210 lb 4 oz), SpO2 98 %. Physical Exam Vitals and nursing note reviewed. Constitutional: General: She is not in acute distress. Appearance: She is well-developed. HENT: Head: Normocephalic and atraumatic. Eyes: General: No scleral icterus. Conjunctiva/sclera: Conjunctivae normal. Pupils: Pupils are equal, round, and reactive to light. Neck: Thyroid: No thyromegaly. Trachea: No tracheal deviation. Cardiovascular: Rate and Rhythm: Normal rate and regular rhythm. Heart sounds: Normal heart sounds. Pulmonary: Effort: Pulmonary effort is normal. No respiratory distress. Breath sounds: Normal breath sounds. Abdominal: General: Bowel sounds are normal. Palpations: Abdomen is soft. Tenderness: There is no abdominal tenderness. Musculoskeletal: General: Normal range of motion. Cervical back: Normal range of motion and neck supple. Lymphadenopathy: Cervical: No cervical adenopathy. Skin: General: Skin is warm and dry. Findings: No erythema or rash. Neurological: Mental Status: She is alert and oriented to person, place, and time. Motor: No abnormal muscle tone. Coordination: Coordination normal. Psychiatric: Speech: Speech normal. Behavior: Behavior normal. Judgment: Judgment normal. PFTs: No new PFTs. Imaging: No new imaging. Assessment & Plan Diagnoses and all orders for this visit: 1. Dyspnea on exertion (Primary) 2. Obstructive sleep apnea on CPAP Discussion: Ms. Alarcon is a 72yo F who is followed for shortness of breath and wheezing. ?? 1. Shortness of Breath - PFTs show no airway obstruction with normal lung volumes. The DLCO is slightly reduced. - CT imaging was unremarkable. - I have given her more samples of Asmanex 50 to use twice daily to see if this helps her breathing. She may be deconditioned at this point. - Echocardiogram was negative for CHF and valvular heart disease. - Continue exercise as tolerated and advance per CT surgery recommendations. ?? 2. DIOGENES - Resume Cpap. Follow up in 4 months. Baylee Gross DO Pulmonary and Critical Care Medicine Note documented in this encounter Plan of Treatment Upcoming Encounters Date Type Department Care Team (Late st Contact Info) Description 07/29/2024 10:45 AM EST Office Visit [facility] CARDIOLOGY [address] [facility] [address] [place] [address] Goyo Khan MD [address] [facility] [address] [place] [address] 09/02/2024 11:30 AM EDT Office Visit [facility] CARDI[facility]ORACIC SURGERY [address] [facility] [address] [place] [address] Dee Jaimes APRN [address] [facility] [address] [place] [address] documented as of this encounter Visit Diagnoses Diagnosis Dyspnea on exertion- Primary Other dyspnea and respiratory abnormality Obstructive sleep apnea on CPAP documented in this encounter Care Teams Airplane Cabin Attendant Relationship Specialty Start Date End Date Talon Barragan MD [address] [facility] [address] [place] [address] PCP - General Family Medicine 03/20/22 documented as of this encounter
--- OUTSIDE RECORDS SUMMARY | 2024-05-04 22:47 | XMS_ITS | Encounter Summary ---
Author Organization [facility] ystem Address [address] [place] [address] Care Team Providers Care Parks Worker Name Role Phone Talon Barragan MD Primary Care Provider Encounter Details Date Type Department Care Team (Late st Contact Info) Description 06/06/2022 Readmission Management [facility] [address] [place] [phone] Silvia Gonzalez, RN Social History Tobacco Use Types Packs/Day Years [...] Answer Date Recorded Current Living Arrangements home 12/2 05/2021 Potentially Unsafe Housing Conditions Not on ez e 05/15/2022 Disabilities Answer Date Recorded Difficulty Concentrating, Remembering or Making Decisions no 05/14/2022 Difficulty Managing Errands Independently no 05/14/2022 Education Answer Date Recorded Help with school or training? Not on file Preferred Language Tongan 04/22/2022 Comments No Sex and Gender Information Value Date Recorded Sex Assigned at Not on file Legal Sex Female 1:29 PM EDT Gender Identity Not on file Sexual Orientation Not on file documented as of this encounter Miscellaneous Notes * Outreach Note - Silvia Gonzalez, RN - 06/06/2022 3:25 PM CST General Surgery Week 3 Survey Flowsheet Row Responses [facility] patient discharged from? [place] Does the patient have one of the following disease processes/diagnoses(primary or secondary)? General Surgery Week 3 attempt successful? No Unsuccessful attempts Attempt 2 SILVIA Aragon - Registered Nurse documented in this encounter Plan of Treatment Upcoming Encounters Date Type Department Care Team (Late st Contact Info) Description 07/29/2024 10:45 AM EST Office Visit [facility] CARDIOLOGY [address] [facility] [address] [place] [address] Goyo Khan MD [address] [facility] [address] [place] [address] 09/02/2024 11:30 AM EDT Office Visit [facility] CARDI[facility]ACIC SURGERY [address] [facility] [address] [place] [id number] Dee Jaimes APRN [address] [facility] [address] [place] [address] documented as of this encounter Visit Diagnoses Not on filedocumented in this encounter Care Teams Parks Worker Relationship Specialty Start Date End Date Talon Barragan MD [address] [facility] [address] [place] [address] PCP - General Family Medicine 03/20/22 documented as of this encounter
--- OUTSIDE RECORDS SUMMARY | 2024-05-04 22:47 | XMS_ITS | Encounter Summary ---
[facility] Address [address] [place] [address] Care Team Providers Care Mid Level Java Developer Name Role Phone Talon Barragan MD Primary Care Provider Reason for Visit * Reason Onset Date Comments KEESHA CHAIREZ APRN - BLOOD WORK 02/03/2023 Encounter Details Date Type Department Care Team (Late st Contact Info) Description 02/03/2023 Telephone [facility] [address] [facility] [address] [place] [phone] Keesha Chairez APRN [address] [facility] [address] [address] [place] [address] KEESHA CHAIREZ APRN - BLOOD WORK Social History Tobacco Use Types Packs/Day Years [...] Housing Conditions Not on ez e 05/15/2022 Family and Community Support Answer Genaro e Recorded Help with Day-to-Day Activities Not on file 03/03/2023 Lonely or Isolated Not on file 03/03/2023 Employment Answer Date Recorded Do you want help finding or keeping work or a raphael b? Not on file 03/03/2023 Disabilities Answer Date Recorded Difficulty Concentrating, Remembering or Making Decisions no 05/14/2022 Difficulty Managing Errands Independently no 05/14/2022 Education Answer Date Recorded Help with school or training? Not on file Preferred Language Stateless 04/22/2022 Comments No Sex and Gender Information Value Date Recorded Sex Assigned at Not on file Legal Sex Female 1:29 PM EDT Gender Identity Not on file Sexual Orientation Not on file documented as of this encounter Miscellaneous Notes * Telephone Encounter - Nic Holly RegSched Rep - 02/03/2023 10:02 AM EDT Caller: Juany Alarcon Relationship: Self Best call back number: [phone] What is the best time to reach you: ANY Who are you requesting to speak with (clinical staff, provider, specific staff member): ANY Do you know the name of the person who called: What was the call regarding: PT IS WANTING TO KNOW IF SHE NEEDS BLOOD WORK DONE BEFORE THE APPT - SHE WOULD GO TO [facility] TO HAVE IT DONE. IF SO CAN ORDERS BE SENT IN? Is it okay if the provider responds through MyChart: documented in this encounter Plan of Treatment Upcoming Encounters Date Type Department Care Team (Late st Contact Info) Description 07/29/2024 10:45 AM EST Office Visit [facility] [address] [facility] [address] [place] [phone] Goyo Khan MD [address] [facility] [address] [place] [address] 09/02/2024 11:30 AM EDT Office Visit [facility] [address] [facility] [address] [place] [phone] Dee Jaimes ELECTRON BEAM WELDER SETTER [address] [facility] [address] [place] [address] documented as of this encounter Visit Diagnoses Not on filedocumented in this encounter Care Teams Mid Level Java Developer Relationship Specialty Start Date End Date Talon Barragan MD [address] [facility] [address] [facility] [place] [address] PCP - General Family Medicine 03/20/22 documented as of this encounter
--- OUTSIDE RECORDS SUMMARY | 2024-05-04 22:47 | XMS_ITS | Encounter Summary ---
[facility] Organization [facility] Address [address] [place] [address] Care Team Providers Care Supervisor Electric Name Role Phone Talon Barragan MD Primary Care Provider Encounter Details Date Type Department Care Team (Late st Contact Info) Description 09/09/2022 Telephone [facility] [address] [place] [address] Nile Muse MD Social History Tobacco Use Types Packs/Day Years [...] or training? Not on file Preferred Language East Timorese 04/22/2022 Comments No Sex and Gender Information Value Date Recorded Sex Assigned at Not on file Legal Sex Female 1:29 PM EDT Gender Identity Not on file Sexual Orientation Not on file documented as of this encounter Miscellaneous Notes * Telephone Encounter - Cecilia Larsen MA - 09/10/2022 8:54 AM EDT Spoke with patient and advised she is to continue the eliquis for 1 month from her last appointmenton 08/29/22 or until she has completed what she has left and also discussed Dr. Muse's recommendations for the stopping the eliquis and re- starting, but advised her to also discuss with MD doing the injections. * Telephone Encounter - Cecilia Larsen MA - 09/09/2022 10:26 AM EDT She is still taking her eliquis until she runs out, she needs to have back injections and asking how long she would need to be off the eliquis once she finishes to have the injections, I told her that would be up to the MD doing the injections, is this correct? documented in this encounter Plan of Treatment Upcoming Encounters Date Type Department Care Team (Late st Contact Info) Description 07/29/2024 10:45 AM EST Office Visit [facility] [address] [facility] [address] [place] [address] Goyo Khan MD [address] [facility] [address] [place] [id number] 09/02/2024 11:30 AM EDT Office Visit [facility] [address] [facility] [address] [place] [address] Dee Jaimes, PEDIATRICIAN/MEDICAL DOCTOR [address] [facility] [address] [place] [address] documented as of this encounter Visit Diagnoses Not on filedocumented in this encounter Care Teams Supervisor Electric Relationship Specialty Start Date End Date Talon Barragan MD [facility] [address] [place] [address] PCP - General Family Medicine 03/20/22 documented as of this encounter
--- OUTSIDE RECORDS SUMMARY | 2024-05-04 22:47 | XMS_ITS | Encounter Summary ---
[facility] Address [address] [place] [address] Care Team Providers Care Electric Meter Inspector Name Role Phone Talon Barragan MD Primary Care Provider Reason for Visit * Reason Comments Follow-up 3 month follow up ri ght ascending aortic aneurysm, s/p TEVAR106/2021. Pt states that she is still having some weakness in her right arm. She continues to use her left hand as her dominate hand b/c of this. Some numbness in the finger tips of the right hand. Complains of bilateral hands that are always cold, relates this to the blood thinners. Encounter Details Date Type Department Care Team (Latest Contact Info) Description 08/29/2022 12:30 PM EDT Office Visit [facility] CARDIOTHORACIC SURGERY [address] [place] [address] [address] [place] [address] Nile Muse MD Brachial artery thrombosis (Primary Dx); Aneurysm of descending thoracic aorta without rupture Social History Tobacco Use Types Packs/Day Years [...] or training? Not on file Preferred Language French 04/22/2022 Comments No Sex and Gender Information Value Date Recorded Sex Assigned at Not on file Legal Sex Female 1:29 PM EDT Gender Identity Not on file Sexual Orientation Not on file documented as of this encounter Last Filed Vital Signs Vital Sign Reading Time Taken Comments Blood Pressure 142/82 08/29/2022 12:20 PM EDT Pulse 52 08/29/2022 12:20 PM EDT Temperature 36.9 ??C (98.4 ??F) 08/29/2022 12:20 PM E DT Respiratory Rate - - Oxygen Saturation 99% 08/29/2022 12:20 PM EDT Inhaled Oxygen Concentration - - Weight 95.3 kg (210 lb) 08/29/2022 12:20 PM EDT Height 167.6 cm (5' 6 ) 08/29/2022 12:20 PM EDT pt reports Body Mass Index 33.89 08/29/2022 12:20 PM EDT documented in this encounter Progress Notes * Nile Muse MD - 08/29/2022 12:30 PM EDT 08/29/2022 Patient Information Juany Ingris Alarcon [address] [facility] [address] 1950 'PCP/Referring Physician' Talon Barragan MD [phone] No ref. provider found Chief Complaint Patient presents with ??? Follow-up 3 month follow up right ascending aortic aneurysm, s/p TEVAR106/2021. Pt states that she is still having some weakness in her right arm. She continues to use her left hand as her dominate hand b/c of this. Some numbness in the finger tips of the right hand. Complains of bilateral hands that are always cold, relates this to the blood thinners. 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 The patient reports having slowly improving strength and sensation in the right hand, and now has no major complaint. She does report that the bilateral hands are always cold. Patient Active Problem List Diagnosis ??? Hypertensive cardiovascular disease ??? Labile hypertension ??? Migraine headache ??? Sinusitis ??? Hiatal hernia with gastroesophageal reflux ??? Chronic low back pain ??? Obstructive sleep apnea on CPAP ??? Post-menopausal ??? Calcified cerebral meningioma ??? Osteoarthritis cervical spine ??? Mild obesity ??? Right knee pain ??? Nausea ??? Weakness ??? Syncope ??? Numbness and tingling in both hands ??? Dyslipidemia ??? Abnormal CT scan ??? Osteoarthritis cervical spine ??? Breast cancer ??? Dyspnea on exertion ??? 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 Anemia ??? Brachial artery thrombosis ??? Essential hypertension ??? Prediabetes Past Medical History: Diagnosis Date ??? Abnormal CT scan 08/2001 of the head, calcified right sided-meningioma ??? Breast cancer LEFT ??? Calcified cerebral meningioma 08/[address] scans ??? Chronic low back pain ??? Dyslipidemia mild - ??? Hiatal hernia with gastroesophageal reflux ??? History of left breast cancer ??? Hypertensive cardiovascular disease ??? Labile hypertension ??? Migraine headache ??? Mild obesity ??? Nausea ??? Numbness and tingling in both hands ??? Osteoarthritis cervical spine abnormal cervical spine series suggestive of the above noted ??? PONV (postoperative nausea and vomiting) ??? Post-menopausal ??? Right knee pain intractable - w/ subsequent right knee arthroscopic surgery and apparent meniscus resection ??? Sinusitis intermittent/ Allergic Rhinitis ??? Sleep apnea DOES NOT USE CPAP, STATES SHE SLEEPS BETTER WITHOUT IT ??? Syncope increase with apparaent dehydration related to sinusitis- data deficit ??? Weakness Past Surgical History: Procedure Laterality Date ??? AORTAGRAM N/A 04/26/2022 Procedure: TEVAR; Surgeon: Nile Muse MD; Location: [facility]; Service: Vascular; Laterality: N/A; Fluoro: 7min 14 sec Dose: 2552mGy Contrast: Isovue 300- 110ml ??? SECTION 1990 ??? CHOLECYSTECTOMY 05/2004 ??? COLONOSCOPY ??? COMPLETE MASTECTOMY W/ SENTINEL NODE BIOPSY Left ??? FEMORAL THROMBECTOMY/EMBOLECTOMY Right 05/15/2022 Procedure: RIGHT BRACHIAL ARTERY CUTDOWN AND EXPLORATION, DENNISE THROMBOECTOMY, RIGHT UPPER EXTREMITY ANTERIOGRAM; Surgeon: Nile Muse MD; Location: [facility]; Service: Cardiothoracic; Laterality: Right; FLUORO 6 SECONDS DOSE 0.36 mGy CONTRAST 5ml ??? KNEE SURGERY Right replacement ??? ORIF HIP FRACTURE Right spring ??? TONSILLECTOMY N/A ??? TOTAL KNEE ARTHROPLASTY Left 2018 left Current Outpatient Medications: ??? apixaban (ELIQUIS) 5 MG tablet tablet, Take 1 tablet by mouth 2 (Two) Times a Day., Disp: 180 tablet, Rfl: 3 ??? aspirin 81 MG EC tablet, Take 1 tablet by mouth Daily. OTC, Disp: 90 tablet, Rfl: 3 ??? bisoprolol-hydrochlorothiazide (ZIAC) 5-6.25 MG per tablet, Take 1 tablet by mouth Daily., Disp: 90 tablet, Rfl: 3 ??? Cholecalciferol (VITAMIN D3) 2000 units tablet, Take 1 tablet by mouth Daily. OTC, Disp: , Rfl: ??? cyanocobalamin (VITAMIN B-12) 500 MCG tablet, Take 1 tablet by mouth Daily. OTC, Disp: , Rfl: ??? meloxicam (MOBIC) 7.5 MG tablet, , Disp: , Rfl: ??? metoclopramide (REGLAN) 5 MG tablet, Take 1 tablet by mouth Daily., Disp: , Rfl: ??? mometasone (NASONEX) 50 MCG/ACT nasal spray, 2 sprays into the nostril(s) as directed by provider As Needed., Disp: , Rfl: ??? oxybutynin XL (DITROPAN-XL) 5 MG 24 hr tablet, Take 1 tablet by mouth Daily., Disp: , Rfl: ??? potassium chloride (K-DUR,KLOR-CON) 20 MEQ CR tablet, Take 1 tablet by mouth Daily., Disp: 90 tablet, Rfl: 3 ??? Probiotic Product (PROBIOTIC PO), Take 1 tablet by mouth Daily. OTC, Disp: , Rfl: ??? rosuvastatin (CRESTOR) 10 MG tablet, Take 1 tablet by mouth Every Night., Disp: 90 tablet, Rfl:3 ??? valACYclovir (VALTREX) 500 MG tablet, , Disp: , Rfl: ??? clindamycin (CLEOCIN) 300 MG capsule, , Disp: , Rfl: Allergies Allergen Reactions ??? Morphine And Related Confusion ??? Penicillins Rash Social History Socioeconomic History ??? Marital status: ??? Number of children: 1 Tobacco Use ??? Smoking status: Never ??? Smokeless tobacco: Never Vaping Use ??? Vaping Use: Never used Substance and Sexual Activity ??? Alcohol use: Yes Alcohol/week: 2.0 standard drinks Types: 2 Drinks containing 0.5 oz of alcohol per week Comment: social ??? Drug use: No ??? Sexual activity: Defer Family History Problem Relation Age of Onset ??? Hypertension Mother ??? Heart disease Father ??? Hypertension Father ??? Hypertension Sister Review of Systems Constitutional: Positive for malaise/fatigue (with exertion). Negative for chills, decreased appetite and fever. HENT: Positive for ear pain. Negative for congestion. Runny nose Cardiovascular: Negative for chest pain, claudication, dyspnea on exertion, irregular heartbeat, leg swelling, near-syncope, orthopnea, palpitations and syncope. Respiratory: Negative for cough, hemoptysis, shortness of breath, sputum production and wheezing. Hematologic/Lymphatic: Negative for bleeding problem. Bruises/bleeds easily (sometimes). Skin: Negative for color change, poor wound healing and rash. Musculoskeletal: Positive for arthritis, back pain and joint pain. Negative for falls. Gastrointestinal: Negative for abdominal pain, constipation, diarrhea, nausea and vomiting. Neurological: Positive for dizziness (pt states that she is careful to take her time when standing)and numbness (rigth arm weak since sx). Negative for focal weakness and paresthesias. Psychiatric/Behavioral: Negative for depression. The patient does not have insomnia. Allergic/Immunologic: Positive for environmental allergies. Vitals: 08/29/22 1220 BP: 142/82 Pulse: 52 Temp: 98.4 ??F (36.9 ??C) SpO2: 99% Weight: 95.3 kg (210 lb) Height: 167.6 cm (66 ) Physical Exam General no acute distress, pleasant, interactive Head normocephalic, atraumatic Eyes clear sclerae ENT no discharge Mouth mucous membranes moist Cardiac regular rate rhythm, no murmurs rubs gallops Vascular warm well perfused x4 extremities Pulmonary lungs clear to auscultation bilaterally Abdomen soft nontender nondistended Lymphatic 1+ edema bilateral lower extremities Neurological equal strength and sensation at the bilateral upper extremities, strong handgrip bilaterally, some residual numbness at the right fourth finger from prior carpal tunnel surgery Psychological appropriate Dermatological well-healed incision at the right antebrachial fossa Musculoskeletal normal tone and bulk The ROS, past medical history, surgical history, family history, social history and vitals were reviewed by myself and corrected as needed. Assessment/Plan: 72-year-old woman status post TEVAR placement for thoracic aortic aneurysm and status post right brachial artery cutdown and Dennise thromboembolectomy for thrombotic occlusion of right brachial artery who presents for routine 3-month follow-up. The patient has essentially normal st rength and sensation at the right hand, aside from her prior single digit paresthesia which is pre-existing after her carpal tunnel surgery years ago. She reports that she would like a referral for anew machine rope maker as Dr. Salinas is no longer available for outpatient evaluations. -Referral for new machine rope maker -Continue Eliquis for an additional month and then can stop -Continue aspirin 81 mg by mouth indefinitely -Annual CTA of the chest to assess for endoleak at the TEVAR and thoracic aortic aneurysm -Return to clinic in 1 year I would like to thank you for the opportunity to participate in the care of this very pleasant patient. Nile Muse M.D., R.P.V.I. Cardiothoracic and Vascular Surgeon [facility] Patient Active Problem List Diagnosis ??? Hypertensive cardiovascular disease ??? Labile hypertension ??? Migraine headache ??? Sinusitis ??? Hiatal hernia with gastroesophageal reflux ??? Chronic low back pain ??? Obstructive sleep apnea on CPAP ??? Post-menopausal ??? Calcified cerebral meningioma ??? Osteoarthritis cervical spine ??? Mild obesity ??? Right knee pain ??? Nausea ??? Weakness ??? Syncope ??? Numbness and tingling in both hands ??? Dyslipidemia ??? Abnormal CT scan ??? Osteoarthritis cervical spine ??? Breast cancer ??? Dyspnea on exertion ??? 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 Anemia ??? Brachial artery thrombosis ??? Essential hypertension ??? Prediabetes documented in this encounter Plan of Treatment Upcoming Encounters Date Type Department Care Team (Late st Contact Info) Description 07/29/2024 10:45 AM EST Office Visit [facility] [address] [place] [phone] Goyo Khan MD [address] [facility] [address] [place] [address] 09/02/2024 11:30 AM EDT Office Visit [facility] CARDIOTHORACIC SURGERY [address] [facility] [address] [place] [phone] Dee Jaimes [employer] [address] [facility] [address] [place] [address] documented as of this encounter Visit Diagnoses Diagnosis Brachial artery thrombosis- Primary Aneurysm of descending thoracic aorta without rupture documented in this encounter Care Teams Electric Meter Inspector Relationship Specialty Start Date End Date Talon Barragan MD [address] [facility] [address] [place] [address] PCP - General Family Medicine 03/20/22 documented as of this encounter
--- OUTSIDE RECORDS SUMMARY | 2024-05-04 22:47 | XMS_ITS | Encounter Summary ---
[facility] Address [address] [place] [address] Care Team Providers Care Water Plant Operator Name Role Phone Talon Barragan MD Primary Care Provider Reason for Visit * Reason Comments Shortness of Breath Follow-up Encounter Details Date Type Department Care Team (Late st Contact Info) Description 10/15/2022 11:00 AM EDT Office Visit [facility] MEDICINE [address] [place] [address] Renato Baylee V., DO [address] [place] [address] Dyspnea on exertion (Primary Dx); Obstructive sleep [...] or training? Not on file Preferred Language Mauritanian 04/22/2022 Comments No Sex and Gender Information Value Date Recorded Sex Assigned at Not on file Legal Sex Female 1:29 PM EDT Gender Identity Not on file Sexual Orientation Not on file documented as of this encounter Last Filed Vital Signs Vital Sign Reading Time Taken Comments Blood Pressure 148/90 10/15/2022 10:50 AM EDT Pulse 80 10/15/2022 10:50 AM EDT Temperature 36.6 ??C (97.8 ??F) 10/15/2022 1 0:50 AM EDT Respiratory Rate - - Oxygen Saturation 97% 10/15/2022 10: 50 AM EDT resting, room air Inhaled Oxygen Concentration - - Weight 93.9 kg (207 lb) 10/15/2022 10:5 0 AM EDT Height 167.6 cm (5' 6 ) 10/15/2022 10:5 0 AM EDT Body Mass Index 33.41 10/15/2022 10:50 AM EDT documented in this encounter Progress Notes * Case, Baylee VGene, DO - 10/15/2022 11:00 AM EDT Pulmonary Office Follow Up Subjective Chief Complaint: Shortness of Breath Juany Alarcon is a 72 y.o. female is being seen in follow up for Asthma History of Present Illness Ms. Alarcon is a 72yo F who is followed for shortness of breath. She was last seen in clinic on 05/30/22. She underwent an elective TEVAR by Dr. Muse on 04/26/22. She was hospitalized again on 05/14 for a right brachial artery thrombosis s/p thrombectomy by Dr. Muse on 05/15/22. She returns to clinic today for follow up. She is overall doing well and finally feeling better. She does continue to have some shortness of breath with heavy exertion such as climbing stairs. She isonly using the Asmanex on days when she knows she will exert herself more. She does not have an Albuterol inhaler. The following portions of the patient's history [...] Hematological: Negative. Psychiatric/Behavioral: Negative. Objective Blood pressure 148/90, pulse 80, temperature 97.8 ??F (36.6 ??C), height 167.6 cm (66 ), weight 93.9 kg (207 lb), SpO2 97 %. Physical Exam Vitals and nursing note [...] (Primary) 2. Obstructive sleep apnea on CPAP Other orders - albuterol sulfate HFA 108 (90 Base) MCG/ACT inhaler; Inhale 2 puffs Every 4 (Four) Hours As Needed for Wheezing. Dispense: 18 g; Refill: 11 Discussion: Ms. Alarcon is a 72yo F who is followed for shortness of breath and wheezing. ?? 1. Shortness of Breath - PFTs show no airway obstruction with normal lung volumes. The DLCO is slightly reduced. - CT imaging was unremarkable. - I have given her more samples of Asmanex 50 to use twice daily when she needs. - Rx for Albuterol inhaler so that she may keep this with her. - Echocardiogram was negative for CHF and valvular heart disease. - Continue to increase exercise as tolerated. ?? 2. DIOGENES - She is no longer using Cpap as she feels better without using this. Follow up in 6-8 months. Baylee Gross DO Pulmonary and Critical Care Medicine Note documented in this encounter Plan of Treatment Upcoming Encounters Date Type Department Care Team (Late st Contact Info) Description 07/29/2024 10:45 AM EST Office Visit [facility] [address] [facility] [address] [place] [address] Goyo Khan MD [address] [facility] [address] [place] [address] 09/02/2024 11:30 AM EDT Office Visit [facility]IC SURGERY [address] [facility] [address] [place] [address] Dee Jaimes APRN [address] [facility] [address] [place] [address] documented as of this encounter Visit Diagnoses Diagnosis Dyspnea on exertion- Primary Other dyspnea and respiratory abnormality Obstructive sleep apnea on CPAP documented in this encounter Care Teams Water Plant Operator Relationship Specialty Start Date End Date Talon Barragan MD [address] [facility] [address] [place] [address] PCP - General Family Medicine 03/20/22 documented as of this encounter
--- OUTSIDE RECORDS SUMMARY | 2024-05-04 22:47 | XMS_ITS | Encounter Summary ---
Author Organization [facility] ystem Address [address] [place] [address] Care Team Providers Care Bilingual Research Interviewer Name Role Phone Talon Barragan MD Primary Care Provider Encounter Details Date Type Department Care Team (Late st Contact Info) Description 05/23/2022 Telephone [facility] CARDIOTHORACIC SURGERY [address] [place] [address] Nile Muse MD Social History [...] or training? Not on file Preferred Language Botswanan 04/22/2022 Comments No Sex and Gender Information Value Date Recorded Sex Assigned at Not on file Legal Sex Female 1:29 PM EDT Gender Identity Not on file Sexual Orientation Not on file documented as of this encounter Miscellaneous Notes * Telephone Encounter - Pilar Macias MA - 05/23/2022 3:52 PM EST Patient is s/p TEVAR 04/26 and subsequent rt brachial artery exploration/arteriogram 05/15. She was previously taking Meloxicam daily for arthritis pain but had stopped it prior to surgery. She is taking Eliquis 5 mg BID. She is wanting to know if she can go ahead and restart the Meloxicam now. See note from Dr. Muse - notified pt to go ahead and restart Meloxicam documented in this encounter Plan of Treatment Upcoming Encounters Date Type Department Care Team (Late st Contact Info) Description 07/29/2024 10:45 AM EST Office Visit [facility] CARDIOLOGY [address] [facility] [address] [place] [phone] Goyo Khan MD [address] [facility] [address] [place] [address] 09/02/2024 11:30 AM EDT Office Visit [facility] CARDIOTHORACIC SURGERY [address] [facility] [address] [place] [phone] Dee Jaimes APRN [address] [facility] [address] [place] [address] documented as of this encounter Visit Diagnoses Not on filedocumented in this encounter Care Teams Bilingual Research Interviewer Relationship Specialty Start Date End Date Talon Barragan MD [address] [facility] [address] [facility] [address] [place] [address] PCP - General Family Medicine 03/20/22 documented as of this encounter
--- OUTSIDE RECORDS SUMMARY | 2024-05-04 22:47 | XMS_ITS | Encounter Summary ---
Author Organization [facility] ystem Address [address] [place] [address] Care Team Providers Care Automatic Vulcanizing Operator Name Role Phone Talon Barragan MD Primary Care Provider Encounter Details Date Type Department Care Team (Late st Contact Info) Description 06/04/2022 Readmission Management [facility] [address] [place] [phone] Demetrice Angel, RN Social History Tobacco Use Types Packs/Day [...] or training? Not on file Preferred Language Greenlandic 04/22/2022 Comments No Sex and Gender Information Value Date Recorded Sex Assigned at Not on file Legal Sex Female 1:29 PM EDT Gender Identity Not on file Sexual Orientation Not on file documented as of this encounter Miscellaneous Notes * Outreach Note - Demetrice Angel, RN - 06/04/2022 2:32 PM EST General Surgery Week 3 Survey Flowsheet Row Responses [facility] patient discharged from? [place] Does the patient have one of the following disease processes/diagnoses(primary or secondary)? General Surgery Week 3 attempt successful? No Unsuccessful attempts Attempt 1 DEMETRICE Flowers - Registered Nurse documented in this encounter Plan of Treatment Upcoming Encounters Date Type Department Care Team (Late st Contact Info) Description 07/29/2024 10:45 AM EST Office Visit [facility] CARDIOLOGY [address] [facility] [address] [place] [address] Goyo Khan MD [address] [facility] [address] [place] [address] 09/02/2024 11:30 AM EDT Office Visit [facility] CARDIOTHORACIC SURGERY [address] [facility] [address] [place] [address] Dee Jaimes APRN [address] [facility] [address] [place], [place] [id number] documented as of this encounter Visit Diagnoses Not on filedocumented in this encounter Care Teams Automatic Vulcanizing Operator Relationship Specialty Start Date End Date Talon Barragan MD [address] [facility] [address] [place] [address] PCP - General Family Medicine 03/20/22 documented as of this encounter
--- OUTSIDE RECORDS SUMMARY | 2024-05-04 22:47 | XMS_ITS | Encounter Summary ---
Author Organization [facility] yste Address [address] [place] [address] Care Team Providers Care Carbon Brush Maker Name Role Phone Talon Barragan MD Primary Care Provider Reason for Visit * Reason Onset Date Comments DR. MUSE- CALL BACK 02/11/2023 Encounter Details Date Type Department Care Team (Late st Contact Info) Description 02/11/2023 Telephone [facility] CARDIOTHORACIC SURGERY [address] [address] JANKO- CALL BACK Social History Tobacco Use Types Packs/Day Years [...] or training? Not on file Preferred Language Lebanese 04/22/2022 Comments No Sex and Gender Information Value Date Recorded Sex Assigned at Not on file Legal Sex Female 1:29 PM EDT Gender Identity Not on file Sexual Orientation Not on file documented as of this encounter Miscellaneous Notes * Telephone Encounter - Argelia Fletcher RegSched Rep - 02/11/2023 10:38 AM EDT Summary: DR. MUSE- CALL BACK Caller: Juany Alarcon Relationship: Self Best call back number: [phone] What is the best time to reach you: ANY Who are you requesting to speak with (clinical staff, provider, specific staff member): CLINICAL Do you know the name of the person who called: PT What was the call regarding: PT CALLED AND WOULD LIKE DR. MUSE TO RECOMMEND A GOOD PHOTOGRAMMETRIC COMPILATION SPECIALIST FOR HER. SHE IS SEEING DR. JOHNSON BUT IS NOT PLEASED WITH HER. IF YOU COULD GIVE HER A CALL BACK AND RECOMMEND SOMEONE SHE WOULD APPRECIATE IT. THANK YOU. Is it okay if the provider responds through FaceOn Mobilehart: NO documented in this encounter Plan of Treatment Upcoming Encounters Date Type Department Care Team (Late st Contact Info) Description 07/29/2024 10:45 AM EST Office Visit [facility] CARDIOLOGY [address] [facility] [address] [place] [address] Goyo Khan MD [address] [facility] [address] [place] [address] 09/02/2024 11:30 AM EDT Office Visit [facility] CARDIOTHORACIC SURGERY [address] [facility] [address] [place] [address] Dee Jaimes, KETTLE ROOM HELPER [address] [facility] [address] [place], [place] [id number] documented as of this encounter Visit Diagnoses Not on filedocumented in this encounter Care Teams Carbon Brush Maker Relationship Specialty Start Date End Date Talon Barragan MD [address] [facility] [address] [facility] [place] [address] PCP - General Family Medicine 03/20/22 documented as of this encounter
--- OUTSIDE RECORDS SUMMARY | 2024-05-04 22:47 | XMS_ITS | Encounter Summary ---
Author Organization [facility] ystem Address [address] [place] [address] Care Team Providers Care Scientific Linguist Name Role Phone Talon Barragan MD Primary Care Provider Reason for Visit * Reason Comments Aortic Aneurysm Hospital follow up s /p TEVAR on 04/26/22 and right upper ext angiogram Encounter Details Date Type Department Care Team (Latest Contact Info) Description 05/30/2022 11:30 AM EST Office Visit [facility] CARDIOTHORACIC SURGERY [address] [place] [address] [address] [place] [address] Nile Muse MD Brachial artery thrombosis (Primary Dx); Aneurysm of ascending aorta without rupture Social History Tobacco Use [...] or training? Not on file Preferred Language Uzbek 04/22/2022 Comments No Sex and Gender Information Value Date Recorded Sex Assigned at Not on file Legal Sex Female 1:29 PM EDT Gender Identity Not on file Sexual Orientation Not on file documented as of this encounter Last Filed Vital Signs Vital Sign Reading Time Taken Comments Blood Pressure 102/68 05/30/2022 11:28 AM EST Pulse 76 05/30/2022 11:27 AM EST Temperature 36.4 ??C (97.5 ??F) 05/30/2022 11:[address] Respiratory Rate - - Oxygen Saturation 99% 05/30/2022 11:27 AM EST Inhaled Oxygen Concentration - - Weight 95.4 kg (210 lb 6.4 oz) 05/30/2022 11:27 AM EST Height 167.6 cm (5' 6 ) 05/30/2022 11:27 AM EST Body Mass Index 33.96 05/30/2022 11:27 AM EST documented in this encounter Progress Notes * Nile Muse MD - 05/30/2022 11:30 AM EST 05/30/2022 Patient Information Juany Alarcon [address] [place] [address] 1950 'PCP/Referring Physician' Talon Barragan MD [phone] No ref. provider found Chief Complaint Patient presents with ??? Aortic Aneurysm Hospital follow up s/p TEVAR on 04/26/22 and right upper ext angiogram History of Present Illness: 72-year-old woman with history of symptomatic dysphagia lusoria associated with right-sided ascending aortic aneurysm status post TEVAR on April 26, 2022 uncomplicated, followed by Dickinson class IIa acute limb ischemia of the right upper extremity status post open th romboembolectomy on May 15, 2022, uncomplicated. The patient now returns for routine postoperative visit. She reports sometimes feeling coolness in the right hand, however has no appreciable pain, weakness, nor other complaint including paresthesia. She reports she has no difficulty ambulatingnor rest pain of the lower extremities. She does express some concern regarding her anticoagulationand her upcoming scheduled cortisone injection in her back which is routine for her every few months. Patient Active Problem List Diagnosis ??? Hypertensive cardiovascular disease ??? Labile hypertension ??? Migraine headache ??? Sinusitis ??? Hiatal hernia with gastroesophageal reflux ??? Chronic low back pain ??? Obstructive sleep apnea on CPAP ??? Post-menopausal ??? Calcified cerebral meningioma (HCC) ??? Osteoarthritis cervical spine ??? Mild obesity ??? Right knee pain ??? Nausea ??? Weakness ??? Syncope ??? Numbness and tingling in both hands ??? Dyslipidemia ??? Abnormal CT scan ??? Osteoarthritis cervical spine ??? Breast cancer (HCC) ??? Dyspnea on exertion ??? 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 Anemia ??? Brachial artery thrombosis (HCC) ??? Essential hypertension Past Medical History: Diagnosis Date ??? Abnormal CT scan 08/2001 of the head, calcified right sided-meningioma ??? Breast cancer (HCC) LEFT ??? Calcified cerebral meningioma (HCC) 08/[address] scans ??? Chronic low [...] Procedure: TEVAR; Surgeon: Nile Muse MD; Location: [facility]; Service: Vascular; Laterality: N/A; Fluoro: 7min 14 sec Dose: 2552mGy Contrast: Isovue 300- 110ml ??? SECTION 1990 ??? CHOLECYSTECTOMY 05/2004 ??? COLONOSCOPY ??? COMPLETE MASTECTOMY W/ SENTINEL NODE BIOPSY Left ??? FEMORAL THROMBECTOMY/EMBOLECTOMY Right 05/15/2022 Procedure: RIGHT BRACHIAL ARTERY CUTDOWN AND EXPLORATION, DENNISE THROMBOECTOMY, RIGHT UPPER EXTREMITY ANTERIOGRAM; Surgeon: Nile Muse MD; Location: [facility]; Service: Cardiothoracic; Laterality: Right; FLUORO 6 SECONDS DOSE 0.36 mGy CONTRAST 5ml ??? KNEE SURGERY Right replacement ??? ORIF HIP FRACTURE Right spring ??? TONSILLECTOMY N/A ??? TOTAL KNEE ARTHROPLASTY Left 2018 left Current Outpatient Medications: ??? apixaban (ELIQUIS) 5 MG tablet tablet, Take 2 tablets by mouth every 12 hours for 7 days. Then take 1 tablet by mouth every 12 hours for the remaining tablets. Indications: DVT/PE (active thrombosis), Disp: 74 tablet, Rfl: 0 ??? aspirin 81 MG EC tablet, Take 1 tablet by mouth Daily. (Patient taking differently: Take 81 mg by mouth Daily. OTC), Disp: 90 tablet, Rfl: 3 ??? bisoprolol-hydrochlorothiazide (ZIAC) 5-6.25 MG per tablet, Take 1 tablet by mouth Daily., Disp: 90 tablet, Rfl: 3 ??? Cholecalciferol (VITAMIN D3) 2000 units tablet, Take 2,000 Units by mouth Daily. OTC, Disp: , Rfl: ??? cyanocobalamin (VITAMIN B-12) 500 MCG tablet, Take 500 mcg by mouth Daily. OTC, Disp: , Rfl: ??? metoclopramide (REGLAN) 5 MG tablet, Take 5 mg by mouth Daily., Disp: , Rfl: ??? mometasone (NASONEX) 50 MCG/ACT nasal spray, 2 sprays into the nostril(s) as directed by provider As Needed., Disp: , Rfl: ??? oxybutynin XL (DITROPAN-XL) 5 MG 24 hr tablet, Take 5 mg by mouth Daily., Disp: , Rfl: ??? potassium chloride (K-DUR,KLOR-CON) 20 MEQ CR tablet, Take 1 tablet by mouth Daily., Disp: 90 tablet, Rfl: 3 ??? Probiotic Product (PROBIOTIC PO), Take 1 tablet by mouth Daily. OTC, Disp: , Rfl: ??? rosuvastatin (CRESTOR) 10 MG tablet, Take 1 tablet by mouth Daily. (Patient taking differently:Take 10 mg by mouth Every Night.), Disp: 90 tablet, Rfl: 3 Allergies Allergen Reactions ??? Morphine And Related [...] ??? Hypertension Sister Review of Systems Constitutional: Negative for chills, fever, malaise/fatigue, night sweats and weight loss. HENT: Negative for hearing loss, odynophagia and sore throat. Cardiovascular: Negative for chest pain, dyspnea on exertion, leg swelling, orthopnea and palpitations. Respiratory: Negative for cough and hemoptysis. Endocrine: Negative for cold intolerance, heat intolerance, polydipsia, polyphagia and polyuria. Hematologic/Lymphatic: Does not bruise/bleed easily. Skin: Negative for itching and rash. Musculoskeletal: Negative for joint pain, joint swelling and myalgias. Gastrointestinal: Negative for abdominal pain, constipation, diarrhea, hematemesis, hematochezia, melena, nausea and vomiting. Genitourinary: Negative for dysuria, frequency and hematuria. Neurological: Negative for focal weakness, headaches, numbness and seizures. Psychiatric/Behavioral: Negative for suicidal ideas. All other systems reviewed and are negative. Vitals: 05/30/22 1127 05/30/22 1128 BP: 128/78 102/68 BP Location: Left arm Right arm Patient Position: Sitting Sitting Pulse: 76 Temp: 97.5 ??F (36.4 ??C) SpO2: 99% Weight: 95.4 kg (210 lb 6.4 oz) Height: 167.6 cm (66 ) Physical Exam General no acute distress, pleasant, interactive Head normocephalic, atraumatic Eyes clear sclerae ENT no discharge, neck supple Mouth mucous membranes moist Cardiac regular rate rhythm, no murmurs rubs gallops Vascular warm well perfused x4 extremities, well-healing incision of the right antebrachial area, easily palpable left radial pulse, faintly palpable right ulnar pulse, nonpalpable right radial pulse. Pulmonary lungs clear to auscultation bilaterally Abdomen soft nontender nondistended Lymphatic no edema bilateral lower extremities Neurological grossly intact Psychological appropriate Dermatological see above Musculoskeletal normal tone and bulk The ROS, past medical history, surgical history, family history, social history and vitals were reviewed by myself and corrected as needed. Assessment/Plan: 72-year-old woman with history of symptomatic dysphagia lusoria associated with right-sided ascending aortic aneurysm status post TEVAR on April 26, 2022 uncomplicated, followed byRutherford class IIa acute limb ischemia of the right upper extremity status post open thromboembolectomy on May 15, 2022, uncomplicated. 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 1. Continue aspirin 81 mg daily indefinitely 2. Continue Eliquis anticoagulation minimum 6 months. After 3 months, I will consider permitting a brief cessation of the anticoagulation in order to facilitate her back injection. For this, I suggest holding anticoagulation for 2 days prior to the procedure, and then resuming again 1 to 2 days postprocedure depending on the interventionalist's preference. 3. Continue statin medication 4. Follow-up with me in 3 to 6 months Patient Active Problem List Diagnosis ??? Hypertensive cardiovascular disease ??? Labile hypertension ??? Migraine headache ??? Sinusitis ??? Hiatal hernia with gastroesophageal reflux ??? Chronic low back pain ??? Obstructive sleep apnea on CPAP ??? Post-menopausal ??? Calcified cerebral meningioma (HCC) ??? Osteoarthritis cervical spine ??? Mild obesity ??? Right knee pain ??? Nausea ??? Weakness ??? Syncope ??? Numbness and tingling in both hands ??? Dyslipidemia ??? Abnormal CT scan ??? Osteoarthritis cervical spine ??? Breast cancer (HCC) ??? Dyspnea on exertion ??? 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 Anemia ??? Brachial artery thrombosis (HCC) ??? Essential hypertension I would like to thank you for this consultation. Nile Muse M.D., R.P.V.I. Cardiothoracic and Vascular Surgeon [facility] documented in this encounter Plan of Treatment Upcoming Encounters Date Type Department Care Team (Late st Contact Info) Description 07/29/2024 10:45 AM EST Office Visit [facility] CARDIOLOGY [address] [facility] [address] [place] [address] Goyo Khan MD [address] [facility] [address] [place] [address] 09/02/2024 11:30 AM EDT Office Visit [facility] CARDIOTHORACIC SURGERY [address] [facility] [address] [place] [address] Dee Jaimes, COMPUTER PUBLISHER [address] [facility] [address] [place] [address] documented as of this encounter Visit Diagnoses Diagnosis Brachial artery thrombosis- Primary Aneurysm of ascending aorta without rupture documented in this encounter Care Teams Scientific Linguist Relationship Specialty Start Date End Date Talon Barragan MD [address] [facility] [address] [place] [address] PCP - General Family Medicine 03/20/22 documented as of this encounter
--- OUTSIDE RECORDS SUMMARY | 2024-05-04 22:47 | XMS_ITS | Encounter Summary ---
Author Organization [facility] ystem Address [address] [place] [address] Care Team Providers Care Parts Counter Specialist Name Role Phone Talon Barragan MD Primary Care Provider Encounter Details Date Type Department Care Team (Late st Contact Info) Description 07/12/2022 10:50 AM EST Lab [facility] [address] [place] [address] Essential hypertension; Dyslipidemia; Routine adult health maintenance; Prediabetes Social History Tobacco Use Types Packs/Day Years [...] on file documented as of this encounter Plan of Treatment Upcoming Encounters Date Type Department Care Team (Late st Contact Info) Description 07/29/2024 10:45 AM EST Office Visit [facility] CARDIOLOGY [address] [facility] [address] [place] [address] Goyo Khan MD [address] [facility] [address] [place] [address] 09/02/2024 11:30 AM EDT Office Visit [facility] CARDIOTHORACIC SURGERY [address] [facility] [address] [place] [address] Dee Jaimes APRN [address] [facility] [address] [place] [address] documented as of this encounter Procedures Procedure Name Priority Date/Time Associated Diagnosis Comments HEMOGLOBIN A1C Routine 07/12/2022 11:02 AM EST Prediabetes LIPID PANEL Routine 07/12/2022 11:02 AM EST Essential hypertension Dyslipidemia Routine adult health maintenance documented in this encounter Results * (ABNORMAL) Hemoglobin A1c (07/12/2022 11:02 AM EST) Hemoglobin A1C 6.10(H) 4.80 - 5.60 % 07/12/2022 2:27 PM EST [facility] Blood Venipuncture / Unknown 07/12/2022 11:02 AM EST 07/12/2022 11:02 AM EST [facility] - 07/12/2022 2:27 PM EST Hemoglobin A1C Ranges: Increased Risk for Diabetes ??5.7% to 6.4% Diabetes ? >= 6.5% Diabetic Goal ?< 7.0% Keesha Claire RENTAL SALES ASSOCIATE LAB BLOOD ORDERABLES Final Result [facility]
[address] [place] [address], * Lipid Panel (07/12/2022 11:02 AM EST) Pathologist [facility] Total Cholesterol 122 0 - 200 mg/dL 07/12/2022 2:25 PM EST [facility] Triglycerides 96 0 - 150 mg/dL 07/12/2022 2:25 PM EST [facility] HDL Cholesterol 53 40 - 60 mg/dL 07/12/2022 2:25 PM EST [facility] LDL Cholesterol 51 0 - 100 mg/dL 07/12/2022 2:25 PM [facility] VLDL Cholesterol 18 5 - 40 mg/dL 07/12/2022 2:25 PM EST [facility] LDL/HDL Ratio 0.94 07/12/2022 2:25 PM EST [facility] Blood Venipuncture / Unknown 07/12/2022 11:02 AM EST 07/12/2022 11:02 AM EST [facility] - 07/12/2022 2:25 PM EST [...] mg/dL Very High ?>189 mg/dL Keesha Claire APRN LAB BLOOD ORDERABLES Final Result [facility]
[address] [place] [address], documented in this encounter Visit Diagnoses Diagnosis Essential hypertension Unspecified essential hypertension Dyslipidemia Other and unspecified hyperlipidemia Routine adult health maintenance Prediabetes Other abnormal glucose documented in this encounter Care Teams Parts Counter Specialist Relationship Specialty Start Date End Date Talon Barragan MD [address] [facility] [address] [place] [address] PCP - General Family Medicine 03/20/22 documented as of this encounter
--- OUTSIDE RECORDS SUMMARY | 2024-05-04 22:47 | XMS_ITS | Encounter Summary ---
[facility] Address [address] [place] [address] Care Team Providers Care Tombstone Carver Name Role Phone Talon Barragan MD Primary Care Provider Encounter Details Date Type Department Care Team (Late st Contact Info) Description 06/13/2022 Telephone [facility] CARDIOTH[facility]ACIC SURGERY [address] [facility] [address] [place] [address] Ashley Cazares, CAMPBELL [address] [facility] [address] [place] [address] Social History Tobacco Use Types Packs/Day Years [...] or training? Not on file Preferred Language Spanish 04/22/2022 Comments No Sex and Gender Information Value Date Recorded Sex Assigned at Not on file Legal Sex Female 1:29 PM EDT Gender Identity Not on file Sexual Orientation Not on file documented as of this encounter Miscellaneous Notes * Telephone Encounter - Ashley Cazares APRN - 06/13/2022 2:21 PM EST Pt contacted our office about her Eliquis. It will cost her 522.00 for first prescription and 100 +\- for each refill. Patient is agreeable to taking the medication/states she feels great. She was just wondering if Warfarin would be a option where her insurance will cover it? Please advise. I returned the call to Ms Alarcon informing her that coumadin requires monitoring her INR level with frequent blood draws and medication dosage adjustments. I also told her she would require bridge with Lovenox injections. She seems familiar with this as a family member has needed this in the past. She would like to think about this before deciding and states she would call our office back when she made a decision. She has been instructed to continuing taking the Eliquis as prescribed and not to d/c it without notifying our office. documented in this encounter Plan of Treatment Upcoming Encounters Date Type Department Care Team (Late st Contact Info) Description 07/29/2024 10:45 AM EST Office Visit [facility] CARDIOLOGY [address] [facility] [address] [place] [address] Goyo Khan MD [facility] [address] [place] [id number] 09/02/2024 11:30 AM EDT Office Visit [facility] CARDI[facility]IC SURGERY [address] [facility] [address] [place] [phone] Dee Jaimes, CHIEF COUNSEL [address] [facility] [address] [place] [address] documented as of this encounter Visit Diagnoses Not on filedocumented in this encounter Care Teams Tombstone Carver Relationship Specialty Start Date End Date Talon Barragan MD [address] [facility] [address] [facility] [address] [facility] [place] [address] PCP - General Family Medicine 03/20/22 documented as of this encounter
--- OUTSIDE RECORDS SUMMARY | 2024-05-04 22:47 | XMS_ITS | Encounter Summary ---
[facility] Address [address] [place] [address] Care Team Providers Care Supervisor [employer] Name Role Phone Talon Barragan MD Primary Care Provider Reason for Visit * Reason Comments Hypertensive heart disease without heart failure Encounter Details Date Type Department Care Team (Late st Contact Info) Description 07/12/2022 10:00 AM EST Office Visit [facility] CARDIOLOGY [address] [facility] [address] [place] [phone] Keesha Claire, CAMPBELL [address] [facility] [address] [place] [address] Dyspnea on exertion (Primary Dx); Essential hypertension; Dyslipidemia; Mild obesity; Routine adult health maintenance; Prediabetes Social History [...] or training? Not on file Preferred Language Rwandan 04/22/2022 Comments No Sex and Gender Information Value Date Recorded Sex Assigned at Not on file Legal Sex Female 1:29 PM EDT Gender Identity Not on file Sexual Orientation Not on file documented as of this encounter Last Filed Vital Signs Vital Sign Reading Time Taken Comments Blood Pressure 120/60 07/12/2022 12:35 PM EST Pulse 63 07/12/2022 9:46 AM EST Temperature - - Respiratory Rate - - Oxygen Saturation 98% 07/12/2022 9:46 AM EST Inhaled Oxygen Concentration - - Weight 96.2 kg (212 lb) 07/12/2022 9:46 AM EST Height 167.6 cm (5' 6 ) 07/12/2022 9:46 AM EST Body Mass Index 34.22 07/12/2022 9:46 AM EST documented in this encounter Progress Notes * Keesha Claire, TANKER TRUCK DRIVER - 07/12/2022 10:00 AM EST Subjective: Encounter Date:07/12/2022 Patient ID: Juany Alarcon is a 72 y.o. 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 ?? REFERRING PHYSICIAN/COSTUME TECHNICIAN: Bassem Barragan MD CURRENT PHYSICIAN: ??Rafael Barajas MD BUSINESS OFFICE COORDINATOR: Katarina Tan MD NEUROSURGEON: Adrian Faye MD/ Edwin Fernandez MD ([facility]) ORTHOPEDIC SURGEON: ??Josh Arellano MD ONCOLOGIC SURGEON: Roque Crouch MD SLEEP PHYSICIAN:??Fito Mederos MD. [employer] SUPERVISOR: Baylee Martino Case, DO VASCULAR SURGEON: Nile Muse MD Chief Complaint: Chief Complaint Patient presents with ??? Hypertensive heart disease without heart failure Problem List: 1. Possible hypertensive cardiovascular disease: a. Remote??progressive chest pain syndrome with exertional bilateral arm pain suggestive of CCS class III angina pectoris with acceptable nuclear GXT, LVEF 0.72, spring 2001, with empiric medical therapy initiated. b. CCS class II/NYHA II-III dyspnea on exertion and??fatigue May 2016, with acceptable Cardiolite GXT (LVEF > 0.70) following exercise to 90% predicted maximum heart rate and 85% predicted exercise capacity, May 2016. c. Residual class I symptoms, June 2021. d. Cardiolite GXT, 11/28/2021: Acceptable probably negative limited quantitative SPECT gated Cardiolite CT scan exercise stress test without definitive ischemic ST-T changes or myocardial perfusion abnormalities suggestive of low probability for significant focal obstructive coronary artery diseasewith preserved systolic left ventricular function (LVEF 0.77) following exercise to 89% predicted ma ximal heart rate and only 72% predicted exercise capacity consistent with moderate physical deconditioning. e. Echocardiogram 04/04/2022: LVEF 60%, cardiac valves anatomically and functionally normal f. CCS class 0 angina/NYHA class II BENITEZ December 2021, June 2022 2. Labile hypertension. 3. Migraine headaches. 4. Intermittent sinusitis/allergic rhinitis. 5. Hiatal hernia/probable GERD syndrome with recent progressive dyspepsia and apparent acceptable EGD/colonoscopy, 2018 - data deficit 6. Intermittent chronic low back pain. 7. H/O sleep apnea with CPAP use. 8. Post-menopausal status. 9. Abnormal head CT scans, calcified right-sided meningioma, August 2001. 10. Remote operations: a. section, 1990. b. Laparoscopic cholecystectomy, May 2004. c. Right hip ORIF, spring 2008. 11. Abnormal cervical spine series suggestive of cervical spine osteoarthritis, August 2001. 12. Mild-moderate??obesity (BMI 35.93). 13. Intractable right knee pain with subsequent right knee arthroscopic surgery and apparent meniscus resection -??data deficit, April 2006 with persistent disabling symptoms and apparent intra-articular injections, 2006, with subsequent right total knee replacement surgery -??data deficit, winter 2007. 14. Hospitalization for intractable nausea, weakness, increased syncope with apparent dehydration related to sinusitis -??data deficit, July 2006. 15. Recent symptomatic numbness and tingling in hands, probable carpal tunnel syndrome. 16. Dyslipidemia??(8.4% 10-year risk ASCVD; 4.5% with treatment) 17. Remote??apparent acceptable mammography (spring 2014), with subsequent development of inverted left nipple with findings of invasive grade I lobular carcinoma with scattered small foci (December-January 2015), with negative left axillary lymph node biopsy and apparent negative BRAC2 assessment with contemplated left mastectomy (May 2015). 18. Bilateral carpal tunnel release,??January 2018 19. Sciatic back pain,??April 2018 20. Left total knee replacement September 2018 21. Recent concern about thyromegaly with apparent acceptable ultrasound - data deficit, 2019. 22. Prediabetes; hemoglobin A1c 6.4% March 2022 23. Dyspnea with PFTs January 2022 showing no airway obstruction but lung volumes were consistentwith restrictive lung disease and diffusing capacity substantially reduced. 24. Descending aortic aneurysm with CTA chest January 2022 showing no PE, but had a right aortic arch and probably associated developmental vascular abnormality seen as a small eccentric proximal descending aortic aneurysm with some mass-effect on the esophagus and trachea, now status post TEVAR with a 28 x 100 mm Cascade conformable tag thoracic stent graft at proximal descending thoracic aorta 04/26/2022 25. CTA chest/arm April 2022 with nonopacification of the brachial artery proximal into the radial and ulnar artery origins just beyond the antecubital fossa concerning for thrombotic occlusion, CHELY 05/14/2022 showing triphasic waveforms throughout the left upper extremity, elevated velocities in the proximal right subclavian with monophasic waveforms. Monophasic waveforms noted throughout theRU E distally. No focal hemodynamically significant stenoses visualized. Based on the monophasic waveforms throughout the right upper extremity suspect more proximal right subclavian/brachiocephalic stenosis 26. 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 She had reexploration 05/15/2022 and thrombectomy of the right brachial artery. She was placed on Eliquis at discharge with recommendations to continue Eliquis a minimum of 6 months. Allergies Allergen Reactions ??? Morphine And Related Confusion ??? Penicillins Rash Current Outpatient Medications Medication Instructions ??? apixaban (ELIQUIS) 5 mg, Oral, 2 Times Daily ??? aspirin 81 mg, Oral, Daily, OTC ??? bisoprolol-hydrochlorothiazide (ZIAC) 5-6.25 MG per tablet 1 tablet, Oral, Daily ??? cyanocobalamin (VITAMIN B-12) 500 mcg, Oral, Daily, OTC ??? meloxicam (MOBIC) 7.5 MG tablet No dose, route, or frequency recorded. ??? metoclopramide (REGLAN) 5 mg, Oral, Daily ??? mometasone (NASONEX) 50 MCG/ACT nasal spray 2 sprays, Nasal, As Needed ??? oxybutynin XL (DITROPAN-XL) 5 mg, Oral, Daily ??? potassium chloride (K-DUR,KLOR-CON) 20 MEQ CR tablet 20 mEq, Oral, Daily ??? Probiotic Product (PROBIOTIC PO) 1 tablet, Oral, Daily, OTC ??? rosuvastatin (CRESTOR) 10 mg, Oral, Nightly ??? valACYclovir (VALTREX) 500 MG tablet No dose, route, or frequency recorded. ??? Vitamin D3 2,000 Units, Oral, Daily, OTC HISTORY OF PRESENT ILLNESS: The patient is here for 6-month follow-up. The patient had an abnormal acceptable stress test November 2021 with low probability for significant focal obstructive CAD with normal EF, and demonstrated moderate physical deconditioning but no evidence of ischemia. At her last appointment we were considering suggesting Wegovy for weight loss. She had PFTs January 2022 showing no airway obstruction but lung volumes were consistent with restrictive lung disease and diffusing capacity substantially reduced. She had a CTA of the chest and was found to have a proximal descending aortic aneurysm and is now status post TEVAR with Dr. Muse. 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 She had reexploration 05/15/2022 and thrombectomy of the right brachial artery. She was placed on Eliquis at discharge. She saw Dr. Muse May 2022 with plans for follow-up in August 2022. She also saw her accounts payable payroll coordinator in the interim. She denies any chest pain, increased shortness of breath, edema, palpitations, presyncope, or syncope. She is interested in physical therapy to help her increase her stamina. The patient is fasting forlabs today. ROS All other systems reviewed and otherwise negative. Procedures Objective: Vitals: 07/12/22 0946 07/12/22 0953 07/12/22 1235 BP: 133/78 161/80 120/60 BP Location: Left arm Left arm Left arm Patient Position: Sitting Standing Sitting Pulse: 63 SpO2: 98% Weight: 96.2 kg (212 lb) Height: 167.6 cm (66 ) Body mass index is 34.22 kg/m??. Last weight December 2021 was 222 pounds Constitutional: Appearance: Healthy appearance. Not in [...] No gallop. No click. No rub. Pulses: Dorsalis pedis: 1+ bilaterally. Posterior tibial: 1+ bilaterally. Edema: Peripheral edema absent. Abdominal: General: Bowel [...] 05/15/2022 Lab Results Component Value Date HGBA1C 6.40 (H) 04/22/2022 Lab Results Component Value Date TSH 1.210 06/20/2020 Lab Results Component Value Date TRIG 84 06/20/2020 TRIG 96 06/22/2018 Lab Results Component Value Date HDL 53 06/20/2020 HDL 63 06/22/2018 Lab Results Component Value Date LDL 62 06/20/2020 LDL 57 06/22/2018 Lab Results Component Value Date BNP 8.0 05/29/2016 Advance Care Planning ACP discussion was held with the patient during this visit. Patient does not have an advance directive, declines further assistance. Assessment: Overall continued acceptable course with no new interim cardiopulmonary complaints with acceptable functional status on limited activity. We will defer additional diagnostic or therapeutic intervention from a cardiac perspective at this time. The patient had an abnormal acceptable stress test November 2021 with low probability for significant focal obstructive CAD with normal EF, and demonstrated moderate physical deconditioning but no evidence of ischemia. Patient is now status post TEVAR as well as right brachial artery reexploration and thrombectomy April 2022. She was recommended to stay on Eliquis for at least 6 months per CTS. She is interested in physical therapy to help her become better conditioned and help her increase her stamina--she previously did PT with Senia Luo in [place] and a referral will be made. Diagnosis Plan 1. Dyspnea on exertion No recurrent angina pectoris or CHF on current activity schedule; continue current treatment 2. Essential hypertension Controlled, continue current cardiac medications 3. Dyslipidemia No new labs to review, continue rosuvastatin, lipid Panel 4. Mild obesity Physical activity as tolerated, heart healthy diet 5. Routine adult health maintenance Lipid Panel, A1C 6. Prediabetes Hemoglobin A1c Plan: 1. Patient to continue current medications and close follow up with the above providers. 2. Tentative cardiology follow up in January 2023 or patient may return sooner PRN. 3. Referral to PT 4. FLP, A1C Electronically signed by Keesha Claire APRN, 07/12/22, 12:39 PM EST. documented in this encounter Plan of Treatment Upcoming Encounters Date Type Department Care Team (Late st Contact Info) Description 07/29/2024 10:45 AM EST Office Visit [facility] CARDIOLOGY [address] [facility] [address] [place] [phone] Goyo Khan MD [address] [facility] [address] [place], [place] [id number] 09/02/2024 11:30 AM EDT Office Visit [facility] CARDIOTHORACIC SURGERY [address] [facility] [address] [place] [phone] Dee Jaimes APRN [address] [facility] [address] [place], [place] [id number] documented as of this encounter Results * (ABNORMAL) Hemoglobin A1c (07/12/2022 11:02 AM EST) Hemoglobin A1C 6.10(H) 4.80 - 5.60 % 07/12/2022 2:27 PM EST [facility] Blood Venipuncture / Unknown 07/12/2022 11:02 AM EST 07/12/2022 11:02 AM EST Narrative [facility] - 07/12/2022 2:27 PM EST Hemoglobin A1C Ranges: Increased Risk for Diabetes ??5.7% to 6.4% Diabetes ? >= 6.5% Diabetic Goal ?< 7.0% us Keesha Claire APRN LAB BLOOD ORDERABLES Final Result [facility]
[address] [place] [address], * Lipid Panel (07/12/2022 11:02 AM EST) Total Cholesterol 122 0 - 200 mg/dL 07/12/2022 2:25 PM EST [facility] Triglycerides 96 0 - 150 mg/dL 07/12/2022 2:25 PM EST [facility] HDL Cholesterol 53 40 - 60 mg/dL 07/12/2022 2:25 PM EST [facility] LDL Cholesterol 51 0 - 100 mg/dL 07/12/2022 2:25 PM EST [facility] VLDL Cholesterol 18 5 - 40 mg/dL 07/12/2022 2:25 PM EST [facility] LDL/HDL Ratio 0.94 07/12/2022 2:25 PM [facility] Blood Venipuncture / Unknown 07/12/2022 11:02 AM EST 07/12/2022 11:02 AM EST [facility] - 07/12/2022 2:25 PM EST Cholesterol [...] Claire APRN LAB BLOOD ORDERABLES Final Result [facility]
[address] [place] [address], documented in this encounter Visit Diagnoses Diagnosis Dyspnea on exertion- Primary Other dyspnea and respiratory abnormality Essential hypertension Unspecified essential hypertension Dyslipidemia Other and unspecified hyperlipidemia Mild obesity Routine adult health maintenance Prediabetes Other abnormal glucose documented in this encounter Care Teams Supervisor [employer] Relationship Specialty Start Date End Date Talon Barragan MD [address] [place] [address] [address] [facility] [address] [place] [address] PCP - General Family Medicine 03/20/22 documented as of this encounter
--- OUTSIDE RECORDS SUMMARY | 2024-05-04 22:47 | XMS_ITS | Encounter Summary ---
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 Referral ID Status Reason Start Date Expiration Date Visits Re quested Visits Authorized [id number] 1 1 Encounter Details Date Type Department Care Team (Late st Contact Info) Description 05/15/2022 2:53 PM EST Anesthesia Event [facility] OR [address] [place] [address] Francisco Javier Stewart MD [address] [place] [address] Olga Arriaga MD [address] [place] [address] Anesthesia Record Procedure Summary Procedure Name Responsible Anesthesiologist Anesthesia Start Time Anesthesia Stop Time RIGHT BRACHIAL ARTERY CUTDOWN AND EXPLORATION, DENNISE THROMBOECTOMY, RIGHT UPPER EXTREMITY ANTERIOGRAM (Right: Arm Upper) Francisco Javier Stewart MD 05/15/22 1453 05/15/22 1640 Events Date Time Event Comment 05/15/2022 1358 1435 AN Equip Check 1453 An Start The patient was reevaluated immediately before moderate or deep sedation use and before anesthesia induction. 1453 An Start Data 1501 An Induction 1507 An Intubation 1626 An Extubation 1630 an stop data 1640 Handoff to RN The following has been completed: 1. Identification of Patient, mcgowan family member(s) or patient surrogate 2. Identification of the responsible Practitioner (primary service) 3. Discussion of the pertinent/attainable medical history 4. Discussion of the surgical/procedure course (procedure, reason for surgery, procedure performed) 5. Intraoperative anesthetic management and issue/concerns to include things such as airway, hemodynamics, narcotic, sedation level and paralytic management and intravenous fluids/blood products and urine output during the procedure 6. Expectations/Plans for the early post-procedure period to include things such as anticipated course (anticipatory guidance), complications, need for laboratory or ECG and medication administration 7. Opportunity for questions and acknowledgment of understanding of report from the receiving PACU/ICU team 1640 An Stop Meds Name Total lidocaine PF 1% 1 % 50 mg Propofol 10 MG/ML 150 mg dexamethasone 4 MG/ML 4 mg rocuronium 50 MG/5ML 60 mg fentaNYL citrate (PF) 100 MCG/2ML 100 mc g ceFAZolin in dextrose (ANCEF) IVPB solut ion 2 g 2 g ondansetron 2 mg/mL 4 mg sugammadex 200 MG/2ML 200 mg heparin (porcine) 1,000 units/mL 5,000 U nits labetalol (NORMODYNE,TRANDATE) 5 mg/mL 5 mg niCARdipine (CARDENE) 20 mg in 200 mL NS infusion 2.58 mg sodium chloride 0.9 % infusion 0 mL lactated ringers infusion 0 mL * Agents Name O2 N2O Air Desflurane * Blood No blood administrations on file. Lines, Drains, and Airways Type Details Placement Removal Wound 05/15/22; Right; antecubital; Incision; N 05/15/22 0000 by Keysha Diallo RN Peripheral IV Placement Date: 04/26 ; Placement Time: 1657; Catheter Size: 18 G; Orientation: Left; Location: Antecubital; Site Prep: Chlorhexidine; Local Anes: None; Technique: Anatomical landmarks; Inserted by: dayanara garcia rn; Insertion Attempts: 1; Patient Tolerance: Tolerated well; Removal Date: 06/30/23; Removal Time: 1153 05/14/221657 by Kaye Hardwick RN 06/30/23 1153 by Kaye Stewart RN Peripheral IV Placement Date: 04/26 ; Placement Time: 1949; Catheter Size: 20 G; Orientation: Anterior, Left; Location: Wrist; Site Prep: Chlorhexidine; Local Anes: None; Technique: Anatomical landmarks; Inserted by: david berg rn; Insertion Attempts: 1; Patient Tolerance: Tolerated well; Removal Date: 06/30/23; Removal Time: 11505/14/22 1950 by Huber Berg RN 06/30/23 115 by Kaye Stewart RN ETT Placement Date: 04/26 06/16; Placement Time: 151 (created via procedure documentation); Tube Size: 7 mm; Blade Size: 4; Location: Oral; Removal Date: 05/15/22; Removal Time: 16205/15/22 151 by Dayanara Vaz CRNA 05/15/22 162 by Brandon Keane SRNA documented in this encounter Social History Tobacco Use Types Packs/Day Years [...] or training? Not on file Preferred Language Cymraes 04/22/2022 Comments No Sex and Gender Information Value Date Recorded Sex Assigned at Not on file Legal Sex Female 1:29 PM EDT Gender Identity Not on file Sexual Orientation Not on file documented as of this encounter OR Notes * Anesthesia Postprocedure Evaluation - Miky Desai CRNA - 05/15/2022 5:45 PM EST Patient: Juany Alarcon Procedure Summary Date: 05/15/22 Room / Location: [facility] Anesthesia Start: 1453 Anesthesia Stop: 1640 Procedure: RIGHT BRACHIAL ARTERY CUTDOWN AND EXPLORATION, DENNISE THROMBOECTOMY, RIGHT UPPER EXTREMITY ANTERIOGRAM (Right: Arm Upper) Diagnosis: Surgeons: Nile Muse MD Provider: Francisco Javier Stewart MD Anesthesia Type: general ASA Status: 3 Anesthesia Type: general Vitals Vitals Value Taken Time BP 155/68 05/15/22 1735 Temp 98.4 ??F (36.9 ??C) 05/15/22 1700 Pulse 80 05/15/22 1737 Resp 18 05/15/22 1730 SpO2 97 % 05/15/22 1737 Vitals shown include unvalidated device data. Post Anesthesia Care and Evaluation Patient location during evaluation: PACU Patient participation: complete - patient participated Level of consciousness: awake and alert Pain management: adequate Airway patency: patent Anesthetic complications: No anesthetic complications PONV Status: none Cardiovascular status: hemodynamically stable and acceptable Respiratory status: nonlabored ventilation, acceptable and nasal cannula Hydration status: acceptable * Anesthesia Procedure Notes - Dayanara Vaz CRNA - 05/15/2022 3:13 PM EST Associated Order(s): Airway Airway Urgency: elective Date/Time: 05/15/2022 3:07 PM Airway not difficult General Information and Staff Patient location during procedure: OR SOCIAL SERVICE LIAISON/CAA: Dayanara Vaz CRNA Indications and Patient Condition Indications for airway management: airway protection Preoxygenated: yes MILS maintained throughout Mask difficulty assessment: 1 - vent by mask Final Airway Details Final airway type: endotracheal airway Successful airway: ETT Successful intubation technique: video laryngoscopy Facilitating devices/methods: intubating stylet (eschmann used) Endotracheal tube insertion site: oral Blade: Rucker Blade size: 4 ETT size (mm): 7.0 Cormack-Lehane Classification: grade I - full view of glottis Placement verified by: chest auscultation and capnometry Measured from: lips ETT/EBT to lips (cm): 21 Number of attempts at approach: 2 Assessment: lips, teeth, and gum same as pre-op and atraumatic intubation Additional Comments Easy mask- no OPA used; Grade I view with Rucker, used eschaman to guide ETT through VC, negative epigastric sounds, symmetrical chest rise and fall, dentition and lips unchanged, * Anesthesia Preprocedure Evaluation - Olga Arriaga MD - 05/15/2022 1:47 PM EST Anesthesia Evaluation Patient summary reviewed and Nursing notes reviewed history of anesthetic complications: NPO Solid Status: > 8 hours NPO Liquid Status: > 8 hours Airway Mallampati: III TM distance: >3 FB Neck ROM: full Possible difficult intubation Comment: Previous use of Rucker#3 blade for intubation grade 1 view Dental - normal exam Pulmonary - normal exam (+) shortness of breath, sleep apnea, (-) COPD, asthma, no home oxygen Cardiovascular - normal exam Exercise tolerance: good (4-7 METS) ECG reviewed (+) hypertension, PVD (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 The cardiac valves are anatomically and functionally normal. 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 ) intravenous induction Anesthetic plan, risks, benefits, and alternatives have been provided, discussed and informed consent has been obtained with: patient. Use of blood products discussed with patient . Plan discussed with SOCIAL SERVICE LIAISON. CODE STATUS: documented in this encounter Plan of Treatment Upcoming Encounters Date Type Department Care Team (Late st Contact Info) Description 07/29/2024 10:45 AM EST Office Visit [facility] CARDIOLOGY [address] [facility] [address] [place] [address] Goyo Khan MD [address] [facility] [address] [place] [address] 09/02/2024 11:30 AM EDT Office Visit [facility] CARDIOTH[facility]ACIC SURGERY [address] [facility] [address] [place] [address] Dee Jaimes APRN [address] [facility] [address] [place], [place] [id number] documented as of this encounter Procedures Procedure Name Priority Date/Time Associated Diagnosis Comments ANESTHESIA INTUBATION Routine 05/15/2022 3:13 PM EST documented in this encounter Results * BH AN ETT AIRWAY (05/15/2022 3:13 PM EST) Narrative Dayanara Vaz CRNA - 05/15/2022 3:13 PM EST Dayanara Vaz CRNA ? 05/15/2022 ??3:17 PM Airway Urgency: elective Date/Time: 05/15/2022 3:07 PM Airway not difficult General Information and Staff Patient location during procedure: OR SOCIAL SERVICE LIAISON/CAA: Dayanara Vaz CRNA Indications and Patient Condition Indications for airway management: airway protection Preoxygenated: yes MILS maintained throughout Mask difficulty assessment: 1 - vent by mask Final Airway Details Final airway type: endotracheal airway Successful airway: ETT Successful intubation technique: video laryngoscopy Facilitating devices/methods: intubating stylet (yomihmann used) Endotracheal tube insertion site: oral Blade: Chaim Blade size: 4 ETT size (mm): 7.0 Cormack-Lehane Classification: grade I - full view of glottis Placement verified by: chest auscultation and capnometry Measured from: lips ETT/EBT ??to lips (cm): 21 Number of attempts at approach: 2 Assessment: lips, teeth, and gum same as pre-op and atraumatic intubation Additional Comments Easy mask- no OPA used; Grade I view with Rucker, used eschaman to guide ETT through VC, negative epigastric sounds, symmetrical chest rise and fall, dentition and lips unchanged, us Francisco Javier Stewart MD ANESTHESIA ORDERABLES Final Re sult documented in this encounter Visit Diagnoses Not on filedocumented in this encounter Administered Medications Inactive Administered Medications - up to 3 most recent administrations Medication Order MAR Action Action Date Dose Rate Site ceFAZolin in dextrose (ANCEF) IVPB solution 2 g 2 g, Intravenous, Administer over 30 Minutes, Once, On Fri05/15/22 at 1451, For 1 dose, Caution: Look alike/sound alike drug alert, Indications: Surgical ProphylaxisIndications:Surgical Prophylaxis Given 05/15/2022 3:10 PM EST 2 g dexamethasone (DECADRON) injection Intravenous, As Needed, Starting on Fri05/15/22 at 1510 Given 05/15/2022 3:10 PM EST 4 mg fentaNYL citrate (PF) (SUBLIMAZE) injection Intravenous, As Needed, Starting on Fri05/15/22 at 1501 Given 05/15/2022 3:10 PM EST 50 mcg Given 05/15/2022 3:01 PM EST 50 mcg heparin (porcine) injection Intravenous, As Needed, Starting on Fri05/15/22 at 1545 Given 05/15/2022 3:45 PM EST 5,000 Units labetalol (NORMODYNE,TRANDATE) injection Intravenous, As Needed, Starting on Fri05/15/22 at 1556 Given 05/15/2022 3:56 PM EST 5 mg lactated ringers infusion 9 mL/hr, Intravenous, Continuous, Starting on Fri05/15/22 at 1323, May switch to NS IV at K[facility] if renal / if indicated New Bag 05/15/2022 2:53 PM EST lidocaine PF 1% (XYLOCAINE) injection Intravenous, As Needed, Starting on Fri05/15/22 at 1501 Given 05/15/2022 3:01 PM EST 50 mg niCARdipine (CARDENE) 20 mg in 200 mL NS infusion Intravenous, Continuous PRN, Starting on Fri05/15/22 at 1609 New Bag 05/15/2022 4:09 PM EST 5 mg/hr 50 mL/hr ondansetron (ZOFRAN) injection Intravenous, As Needed, Starting on Fri05/15/22 at 1615 Given 05/15/2022 4:15 PM EST 4 mg Propofol (DIPRIVAN) injection Intravenous, As Needed, Starting on Fri05/15/22 at 1501 Given 05/15/2022 3:01 PM EST 150 mg rocuronium (ZEMURON) injection Intravenous, As Needed, Starting on Fri05/15/22 at 1501 Given 05/15/2022 4:00 PM EST 10 mg Given 05/15/2022 3:26 PM EST 10 mg Given 05/15/2022 3:01 PM EST 40 mg sodium chloride 0.9 % infusion 50 mL/hr, Intravenous, Continuous, Starting on Fri05/14/22 at 2130 Rate/Dose Verify 05/16/2022 5:18 AM EST 50 mL/hr 50 mL/hr New Bag 05/16/2022 2:39 AM EST 50 mL/hr 50 mL/hr New Bag 05/15/2022 2:53 PM EST sugammadex (BRIDION) injection Intravenous, As Needed, Starting on Fri05/15/22 at 1615 Given 05/15/2022 4:15 PM EST 200 mg documented in this encounter Care Teams Financial Services Sales Representative Relationship Specialty Start Date End Date Talon Barragan MD [address] [facility] [address] [facility] [address] [place] [address] PCP - General Family Medicine 03/20/22 documented as of this encounter
--- OUTSIDE RECORDS SUMMARY | 2024-05-04 22:47 | XMS_ITS | Encounter Summary ---
Author Organization [facility] Address [address] [place] [address] Care Team Providers Care Brazing Machine Operator Name Role Phone Talon Barragan MD Primary Care Provider Encounter Details Date Type Department Care Team (Late st Contact Info) Description 05/21/2022 Readmission Management [facility] [address] [place] [phone] Garett Munoz, CRISTOBAL Social History Tobacco Use Types Packs/Day Years [...] or training? Not on file Preferred Language Barbadian 04/22/2022 Comments No Sex and Gender Information Value Date Recorded Sex Assigned at Not on file Legal Sex Female 1:29 PM EDT Gender Identity Not on file Sexual Orientation Not on file documented as of this encounter Miscellaneous Notes * Outreach Note - Garett Munoz, RN - 05/21/2022 8:51 AM EST General Surgery Week 1 Survey Flowsheet Row Responses [facility] patient discharged from? [facility] Does the patient have one of the following disease processes/diagnoses(primary or secondary)? General Surgery Week 1 attempt successful? No Unsuccessful attempts Attempt 1 GARETT Bowles - Registered Nurse documented in this encounter Plan of Treatment Upcoming Encounters Date Type Department Care Team (Late st Contact Info) Description 07/29/2024 10:45 AM EST Office Visit [facility] [address] [place] [address] Goyo Khan MD [address] [facility] [address] [place] [address] 09/02/2024 11:30 AM EDT Office Visit [facility] CARDIOTHORACIC SURGERY [address] [facility] [address] [place] [id number] Dee Jaimes APRN [address] [facility] [address] [place] [address] documented as of this encounter Visit Diagnoses Not on filedocumented in this encounter Care Teams Brazing Machine Operator Relationship Specialty Start Date End Date Talon Barragan MD [address] [facility] [address] [place] [address] PCP - General Family Medicine 03/20/22 documented as of this encounter
--- OUTSIDE RECORDS SUMMARY | 2024-05-04 22:47 | XMS_ITS | Encounter Summary ---
[facility] [address] [place] [address] Care Team Providers Care [employer] Name Role Phone Talon Barragan MD Primary Care Provider Reason for Visit * Reason Comments Arm Pain * Auth/Cert (Routine) Specialty Diagnoses / Procedures Referred By Heather t Referred To Contact Diagnoses Brachial artery thrombosis Referral ID Status Reason Start Date Expiration Date Visits Re quested Visits Authorized [id number] 1 1 Encounter Details Date Type Department Care Team (Late st Contact Info) Description 05/14/2022 3:55 PM EST - 05/16/2022 4:56 PM EST Hospital Encounter [facility] [address] [place] [phone] Preston Manuel DO [address] [place] [address] Anitha Zelaya MD Lyons, Andrea L, MD [address] [place] [address] Victor Hugo Silver MD [address] [phone] Nile Muse MD Brachial artery thrombosis (Primary Dx); Right arm pain Discharge Disposition: Home or Self Care [...] or training? Not on file Preferred Language Mongolian 04/22/2022 Comments No Sex and Gender Information Value Date Recorded Sex Assigned at Not on file Legal Sex Female 1:29 PM EDT Gender Identity Not on file Sexual Orientation Not on file documented as of this encounter Last Filed Vital Signs Vital Sign Reading Time Taken Comments Blood Pressure 157/69 05/16/2022 11:11 AM EST Pulse 72 05/16/2022 11:11 AM EST Temperature 36.8 ??C (98.3 ??F) 05/16/2022 11:[address] Respiratory Rate 16 05/16/2022 11:11 AM EST Oxygen Saturation 99% 05/16/2022 11:11 AM EST Inhaled Oxygen Concentration - - Weight 95.3 kg (210 lb) 05/14/2022 1:52 PM EST Height 167.6 cm (5' 6 ) 05/14/2022 1:52 PM EST Body Mass Index 33.89 05/14/2022 1:52 PM EST documented in this encounter Discharge Summaries * Victor Hugo Silver MD - 05/16/2022 4:07 PM EST Images from the original note were not included. 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 Essential hypertension [I10] Yes ??? 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 Obstructive sleep apnea on CPAP [G47.33, Z99.89] Not Applicable Resolved Hospital Problems No resolved problems to display. Hospital Course: Juany Alarcon is a 72 y.o. female PMH significant for HTN, migraines, DIOGENES on CPAP, dyslipidemia, left breast cancer s/p mastectomy, saccular thoracic aortic aneurysm s/p TEVAR, who presents to the ED with complaint of right arm pain and cold right arm who is found to have concern for brachial artery thrombosis. ?? Brachial Artery Thrombosis -Was started on heparin drip in the ER. Dr. Figueroa from cardiothoracic surgery saw and evaluated patient. Patient was taken to surgery on 05/15/[address] Barraza and right brachial artery cutdown and exploration and also kelley thrombectomy of right brachial artery and forearm arteries were performed with no complication. After surgery Heparin was continued. Today which is 05/16/2022 patient was switched from heparin to p.o. Eliquis. -Patient is completely symptom-free now and very eager to go home. We will discharge patient home on p.o. Eliquis. Patient was instructed how to take the medication by myself and also by pharmacy. ?? Essential Hypertension Dyslipidemia -continue bisoprolol (hold HCTZ for now) -continue statin -continue daily ASA ?? DIOGENES -continue CPAP ?? Discharge Follow Up Recommendations for outpatient labs/diagnostics: Day of Discharge HPI: Resting in a chair in no acute distress and has no complaint except mild soreness of the right arm.No fever or chills. No chest pain palpitation shortness of breath. No nausea vomiting or diarrhea or abdominal pain. Very very eager to go home. Review of Systems As above Vital Signs: Temp: [97.4 ??F (36.3 ??C)-98.4 ??F (36.9 ??C)] 98.3 ??F (36.8 ??C) Heart Rate: [58-89] 72 Resp: [16-18] 16 BP: (125-185)/(58-92) 157/69 Flow (L/min): [2] 2 Physical Exam: Constitutional: No acute distress, looks comfortable HENT: NCAT, mucous membranes moist Respiratory: Clear to auscultation bilaterally, respiratory effort normal Cardiovascular: RRR, no murmurs, rubs, or gallops Gastrointestinal: Positive bowel sounds, soft, nontender, nondistended Musculoskeletal: No bilateral ankle edema Psychiatric: Appropriate affect, cooperative Neurologic: Oriented x 3, strength symmetric in all extremities, Cranial Nerves grossly intact to confrontation, speech clear Skin: No rashes Pertinent and/or Most Recent Results LAB RESULTS: Lab 05/16/22 1414 05/16/22 0134 05/15/22 1040 05/15/22 0403 05/14/22 1905 05/14/22 1653 WBC -- -- -- 8.43 -- 9.74 HEMOGLOBIN -- -- -- 10.8* -- 11.7* HEMATOCRIT -- -- -- 33.2* -- 36.4 PLATELETS -- -- -- 190 -- 214 NEUTROS ABS -- -- -- 5.26 -- 6.42 IMMATURE GRANS (ABS) -- -- -- 0.07* -- 0.09* LYMPHS ABS -- -- -- 2.07 -- 2.17 MONOS ABS -- -- -- 0.84 -- 0.87 EOS ABS -- -- -- 0.15 -- 0.15 MCV -- -- -- 93.8 -- 96.3 PROTIME -- -- -- -- 13.3 -- APTT -- -- -- -- 25.2* -- HEPARIN ANTI-XA 0.45 0.30 0.40 0.38 0.10* -- Lab 05/15/22 0403 05/14/229 05/14/22 1700 05/14/22 1659 05/14/22 1653 SODIUM 138 134* -- -- 137 POTASSIUM 4.0 3.9 -- -- 4.2 CHLORIDE 105 100 -- -- 103 CO2 23.0 25.0 -- -- 25.0 ANION GAP 10.0 9.0 -- -- 9.0 BUN 18 18 -- -- 19 CREATININE 0.88 0.81 0.90 0.90 0.86 EGFR 70.4 77.7 -- -- 72.3 GLUCOSE 129* 128* -- -- 119* CALCIUM 9.2 9.2 -- -- 9.6 Lab 05/14/22194805/14/221652 TOTAL PROTEIN 6.3 6.8 ALBUMIN 3.60 4.00 GLOBULIN 2.7 2.8 ALT (SGPT) 16 17 AST (SGOT) 20 15 BILIRUBIN 0.5 0.6 ALK PHOS 73 81 Lab 05/14/22 190 PROTIME 13.3 INR 1.02 Lab 05/14/221948 ABO TYPING A RH TYPING Positive ANTIBODY SCREEN Negative Brief Urine Lab Results None Microbiology Results (last 10 days) No results found for the last [address] Angiogram Chest Result Date: 05/14/2022 DATE OF EXAM: 05/14/2022 5:09 PM PROCEDURE: CT ANGIOGRAM CHEST-, CT ANGIOGRAM UPPER EXTREMITY RIGHT- INDICATIONS: cold painful R arm; s/p aortic stent 04/26 COMPARISON: 04/27/2022 TECHNIQUE: Contiguousaxial imaging was obtained from the thoracic inlet through the upper abdomen and right upper extremity following the intravenous administration of 100 mL of Isovue 370. Reconstructed coronal and sagittal images were also obtained. Automated exposure control and iterative reconstruction methods wereused. The radiation dose reduction device was turned on for each scan per the ALARA (As Low as Reasonably Achievable) protocol. FINDINGS: There is no pathologic axillary adenopathy or other worrisomebody wall soft tissue finding in the chest. No acute findings are present in the partially characterized upper abdomen. There is no pleural or pericardial effusion. There is no pathologic mediastinaladenopathy. Redemonstrated postoperative changes from recent stenting of the right-sided aortic arch and proximal descending thoracic aorta, appearing similar to comparison without evidence of leak or persistent aneurysm. The pulmonary arteries are suboptimally opacified. The osseous structures demonstrate no acute findings. Evaluation of the lung ramos demonstrates no evidence of acute infectious process or suspicious pulmonary nodularity. Additional CT angiographic evaluation of the right upper extremity demonstrates good opacification of the subclavian artery, axillary and brachial arteryalong the proximal and distal humerus. Just beyond the ampulla fossa, the distal brachial artery demonstrates abrupt nonopacification, with nonvisualized radial and ulnar arteries, potentially somewhat due to technical factors but concerning for thrombotic occlusion. There is nonopacification of the brachial artery proximal to the radial and ulnar artery origins just beyond the antecubital fossa, concerning for thrombotic occlusion. Satisfactory in stable appearance of stented right-sided aortic arch. No acute nonvascular findings in the chest. Findings relayedto emergency room ordering physician by Edwardo Price via the messaging system in the electronicmedical record at 6:44 PM 05/14/2022 This report was finalized on 05/14/2022 6:[address]o Price. CT Angiogram Upper Extremity Right Result Date: 05/14/2022 DATE OF EXAM: 05/14/2022 5:09 PM PROCEDURE: CT ANGIOGRAM CHEST-, CT ANGIOGRAM UPPER EXTREMITY RIGHT- INDICATIONS: cold painful R arm; s/p aortic stent 04/26 COMPARISON: 04/27/2022 TECHNIQUE: Contiguousaxial imaging was obtained from the thoracic inlet through the upper abdomen and right upper extremity following the intravenous administration of 100 mL of Isovue 370. Reconstructed coronal and sagittal images were also obtained. Automated exposure control and iterative reconstruction methods wereused. The radiation dose reduction device was turned on for each scan per the ALARA (As Low as Reasonably Achievable) protocol. FINDINGS: There is no pathologic axillary adenopathy or other worrisomebody wall soft tissue finding in the chest. No acute findings are present in the partially characterized upper abdomen. There is no pleural or pericardial effusion. There is no pathologic mediastinaladenopathy. Redemonstrated postoperative changes from recent stenting of the right-sided aortic arch and proximal descending thoracic aorta, appearing similar to comparison without evidence of leak or persistent aneurysm. The pulmonary arteries are suboptimally opacified. The osseous structures demonstrate no acute findings. Evaluation of the lung ramos demonstrates no evidence of acute infectious process or suspicious pulmonary nodularity. Additional CT angiographic evaluation of the right upper extremity demonstrates good opacification of the subclavian artery, axillary and brachial arteryalong the proximal and distal humerus. Just beyond the ampulla fossa, the distal brachial artery demonstrates abrupt nonopacification, with nonvisualized radial and ulnar arteries, potentially somewhat due to technical factors but concerning for thrombotic occlusion. There is nonopacification of the brachial artery proximal to the radial and ulnar artery origins just beyond the antecubital fossa, concerning for thrombotic occlusion. Satisfactory in stable appearance of stented right-sided aortic arch. No acute nonvascular findings in the chest. Findings relayedto emergency room ordering physician by Edwardo Price via the messaging system in the electronicmedical record at 6:44 PM 05/14/2022 This report was finalized on 05/14/2022 6:45 PM by Edwardo Price. Duplex Upper Extremity Art / Grafts - Bilateral CAR Result Date: 05/14/2022 ??? Triphasic waveforms throughout the left upper extremity. No focal hemodynamically significant stenoses. ??? There are elevated velocities in the proximal right subclavian with monophasic waveforms. Monophasic waveforms noted throughout the right upper extremity distally. No focal hemodynamically significant stenoses visualized. ??? Based on the monophasic waveforms throughout the right upper extremity suspect more proximal right subclavian/brachiocephalic stenosis. Results for orders placed during the hospital encounter of 05/14/22 Duplex Upper Extremity Art / Grafts - Bilateral CAR Interpretation Summary ??? Triphasic waveforms throughout the left upper extremity. No focal hemodynamically significant stenoses. ??? There are elevated velocities in the proximal right subclavian with monophasic waveforms. Monophasic waveforms noted throughout the right upper extremity distally. No focal hemodynamically significant stenoses visualized. ??? Based on the monophasic waveforms throughout the right upper extremity suspect more proximal right subclavian/brachiocephalic stenosis. Results for orders placed during the hospital encounter of 05/14/22 Duplex Upper Extremity Art / Grafts - Bilateral CAR Interpretation Summary ??? Triphasic waveforms throughout the left upper extremity. No focal hemodynamically significant stenoses. ??? There are elevated velocities in the proximal right subclavian with monophasic waveforms. Monophasic waveforms noted throughout the right upper extremity distally. No focal hemodynamically significant stenoses visualized. ??? Based on the monophasic waveforms throughout the right upper extremity suspect more proximal right subclavian/brachiocephalic stenosis. Results for orders placed during the hospital encounter of 04/04/22 Adult Transthoracic Echo Complete w/ Color, Spectral and Contrast if necessary per protocol Interpretation Summary ??? Estimated left ventricular EF = 60% ??? The cardiac valves are anatomically and functionally normal. Discharge Details Discharge Medications New Medications Instructions Start Date apixaban 5 MG tablet tablet Commonly known as: ELIQUIS 10 mg, Oral, Every 12 Hours Scheduled apixaban 5 MG tablet tablet Commonly known as: ELIQUIS Take 2 tablets by mouth every 12 hours for 7 days. Then take 1 tablets by mouth every 12 hours for the remaining tablets. Start Date: May 23, 2022 Changes to Medications Instructions Start Date aspirin 81 MG EC tablet What changed: additional instructions 81 mg, Oral, Daily rosuvastatin 10 MG tablet Commonly known as: CRESTOR What changed: when to take this 10 mg, Oral, Daily Continue These Medications Instructions Start Date bisoprolol-hydrochlorothiazide 5-6.25 MG per tablet Commonly known as: ZIAC 1 tablet, Oral, Daily cyanocobalamin 500 MCG tablet Commonly known as: VITAMIN B-12 500 mcg, Oral, Daily, OTC metoclopramide 5 MG tablet Commonly known as: REGLAN 5 mg, Oral, Daily mometasone 50 MCG/ACT nasal spray Commonly known as: NASONEX 2 sprays, Nasal, As Needed oxybutynin XL 5 MG 24 hr tablet Commonly known as: DITROPAN-XL 5 mg, Oral, Daily potassium chloride 20 MEQ CR tablet Commonly known as: K-DUR,KLOR-CON 20 mEq, Oral, Daily PROBIOTIC PO 1 tablet, Oral, Daily, OTC Vitamin D3 50 MCG (2000 UT) tablet 2,000 Units, Oral, Daily, OTC Stop These Medications meloxicam 7.5 MG tablet Commonly known as: MOBIC Allergies Allergen Reactions ??? Morphine And Related Confusion ??? Penicillins Rash Discharge Disposition: Home or Self Care Diet: Hospital: Diet Order Procedures ??? Diet: Cardiac Diets; Healthy Heart (2-3 Na+); Texture: Regular Texture (IDDSI 7); Fluid Consistency: Thin (IDDSI 0) Activity: Activity Instructions Activity as Tolerated CODE STATUS: Code Status and Medical Interventions: Ordered at: 05/15/22 1650 Code Status (Patient has no pulse and is not breathing): CPR (Attempt to Resuscitate) Medical Interventions (Patient has pulse or is breathing): Full Support Release to patient: Routine Release Future Appointments Date Time Provider Department Center 05/30/2022 11:30 AM Nile Muse MD [facility] 05/30/2022 12:45 PM Baylee Gross DO [facility] 07/12/2022 10:00 AM Keesha Claire APRN [facility] Additional Instructions for the Follow-ups that You Need to Schedule Discharge Follow-up with PCP As directed Currently Documented PCP: Talon Barragan MD PCP Follow Up Details: within one week Discharge Follow-up with Specified Provider: CTS as per schedule. As directed To: CTS as per schedule. Victor Hugo Silver MD 05/16/22 Time Spent on Discharge: I spent 41 minutes on this discharge activity which included: [id number] with the patient, reviewing the data in the system, coordination of the care with the nursing staff as well as consultants, documentation, and entering orders. documented in this encounter Medications at Time of Discharge Cholecalciferol (VITAMIN D3) 2000 units tablet Take 1 tablet by mouth Daily. OTC cyanocobalamin (VITAMIN B-12) 500 MCG tablet Take 1 tablet by mouth Daily. OTC Probiotic Product (PROBIOTIC PO) Take 1 tablet by mouth Daily. OTC apixaban (ELIQUIS) 5 MG tablet tabletIndication s:DVT/PE (active thrombosis) Take 2 tablets by mouth every 12 hours for 7 days. Then take 1 tablet by mouth every 12 hours for the remaining tablets. Indications: DVT/PE (active thrombosis) 74 tablet 05/16/2022 4:29 PM EST 05/23/2022 3 aspirin 81 MG EC tablet Take 1 tablet by mouth Daily. 90 tablet 3 06/29/2021 3 bisoprolol-hydro chlorothiazide (ZIAC) 5-6.25 MG per tablet Take 1 tablet by mouth Daily. 90 tablet 3 06/29/2021 3 metoclopramide (REGLAN) 5 MG tablet Take 1 tablet by mouth Daily. 05/27/2020 4 mometasone (NASONEX) 50 MCG/ACT nasal spray 2 sprays into the nostril(s) as directed by provider As Needed. 4 oxybutynin XL (DITROPAN-XL) 5 MG 24 hr tablet Take 1 tablet by mouth Daily. 4 potassium chloride (K-DUR,KLOR-CON) 20 MEQ CR tablet Take 1 tablet by mouth Daily. 90 tablet 3 06/29/2021 3 rosuvastatin (CRESTOR) 10 MG tablet Take 1 tablet by mouth Daily. 90 tablet 3 06/29/2021 3 documented as of this encounter Progress Notes * Nile Muse MD - 05/16/2022 4:56 PM EST Enter Query Response Below Query Response: No unrelated to TEVAR thank you If applicable, please update the problem list. Patient: Juany Alarcon : 1950 Account: [id number] Admit Date: 05/14/2022 How to Respond to this query: a. Click New Note b. Answer query within the yellow box. c. Update the Problem List, if applicable. If you have any questions about this query contact me at: [phone]. : The patient underwent a TEVAR 04/26/22 and had right arm pain and coolness after. Imaging was concerning for brachial artery thrombosis. The patient was admitted on IV Heparin. Surgeon evaluation was concerning for Taniya IIa acute limb ischemia with documentation of this is unlikely related tothe operation . Exploration of the artery showed no thrombosis. Can you clarify if after study, the patient's symptoms were due to the TEVAR procedure? - Yes. - No. - Other . - Unable to clinically determine. By submitting this query, we are merely seeking further clarification of documentation to accurately reflect all conditions that you are monitoring, evaluating, treating or that extend the hospitalization or utilize additional resources of care. Please utilize your independent clinical judgment when addressing the question(s) above. This query and your response, once completed, will be entered into the legal medical record. Sincerely, Kelly Lopez RN Clinical Documentation Integrity Program * Nile Muse MD - 05/16/2022 4:56 PM EST Enter Query Response Below Query Response: Yes the patient had brachial artery thrombosis thank you If applicable, please update the problem list. Patient: Juany Alarcon : 1950 Account: [id number] Admit Date: 05/14/2022 How to Respond to this query: a. Click New Note b. Answer query within the yellow box. c. Update the Problem List, if applicable. If you have any questions about this query contact me at: [phone]. : This patient underwent TEVAR on 04/26/22. The patient has been having right arm pain and coolness since the procedure. Imaging was concerning for brachial artery thrombosis. The patient was admitted and started on IV Heparin. The patient underwent an embolectomy. However, the artery was explored with the surgeon stating there was no thrombosis. The patient was discharged on Eliquis. Can you clarify if after study, the patient had a brachial artery thrombosis? - Yes. - No. - Other . - Unable to clinically determine. By submitting this query, we are merely seeking further clarification of documentation to accurately reflect all conditions that you are monitoring, evaluating, treating or that extend the hospitalization or utilize additional resources of care. Please utilize your independent clinical judgment when addressing the question(s) above. This query and your response, once completed, will be entered into the legal medical record. Sincerely, Kelly Lopez RN Clinical Documentation Integrity Program * Caty Watts APRN - 05/16/2022 7:26 AM EST [facility] Cardiothoracic Surgery In-Patient Progress Note POD # 1 s/p right brachial artery cutdown and exploration, kelley thrombectomy of right brachial artery and forearm arteries, and right upper extremity arteriogram LOS: 2 days Subjective No complaints. Objective Vital Signs Temp: [97.4 ??F (36.3 ??C)-98.4 ??F (36.9 ??C)] 97.4 ??F (36.3 ??C) Heart Rate: [58-85] 70 Resp: [16-18] 17 BP: (125-185)/(58-92) 154/68 Physical Exam: General Appearance: alert, appears stated age and cooperative Lungs: respirations regular, respirations even and respirations unlabored Heart: normal S1, S2, no murmur, no gallop, no rub and no click Skin: Incision c/d/i Results Results from last 7 days Lab Units 05/15/22 0403 WBC 10*3/mm3 8.43 HEMOGLOBIN g/dL 10.8* HEMATOCRIT % 33.2* PLATELETS 10*3/mm3 190 Results from last 7 days Lab Units 05/15/22 0403 SODIUM mmol/L 138 POTASSIUM mmol/L 4.0 CHLORIDE mmol/L 105 CO2 mmol/L 23.0 BUN mg/dL 18 CREATININE mg/dL 0.88 GLUCOSE mg/dL 129* CALCIUM mg/dL 9.2 Assessment POD # 1 s/p right brachial artery cutdown and exploration, kelley thrombectomy of right brachial artery and forearm arteries, and right upper extremity arteriogram Plan D/C on [facility] Ambulate F/u in 2 weeks in office Caty Watts APRN 05/16/22 07:26 EST Cosigned by Nile Muse MD at 05/16/2022 5:43 PM EST Associated attestation - Nile Muse MD - 05/16/2022 5:43 PM EST I have reviewed this documentation and agree. Interviewed and examined this patient on rounds. Plan as above. Nile Muse M.D., R.P.V.I. Cardiothoracic and Vascular Surgeon [facility] * Camila Cancinozie, [facility] - 05/15/2022 3:52 PM EST HEPARIN INFUSION Juany Alarcon is a 72 y.o. female receiving heparin infusion. Therapy for (VTE/Cardiac): cardiac Patient Weight: 95.3 kg Initial Bolus (Y/N): yes Any Bolus (Y/N): yes Signs or Symptoms of Bleeding: no Cardiac or Other (Not VTE) Initial Bolus: 60 units/kg (Max 4,000 units) Initial rate: 12 units/kg/hr (Max 1,000 units/hr) Anti Xa Rebolus Infusion Hold time Change infusion Dose (Units/kg/hr) Next Anti Xa or aPTT Level Due < 0.11 50 Units/kg (4000 Units Max) None Increase by 3 Units/kg/hr 6 hours 0.11- 0.19 25 Units/kg (2000 Units Max) None Increase by 2 Units/kg/hr 6 hours 0.2 - 0.29 0 None Increase by 1 Units/kg/hr 6 hours 0.3 - 0.5 0 None No Change 6 hours (after 2 consecutive levels in range check qAM) 0.51 - 0.6 0 None Decrease by 1 Units/kg/hr 6 hours 0.61 - 0.8 0 30 Minutes Decrease by 2 Units/kg/hr 6 hours 0.81 - 1 0 60 Minutes Decrease by 3 Units/kg/hr 6 hours >1 0 Hold After Anti Xa less than 0.5 decrease previous rate by 4 Units/kg/hr Every 2 hours until Anti Xa less than 0.5 then when infusion restarts in 6 hours Results from last 7 days Lab Units 05/15/22 0403 05/14/22 1905 05/14/22 1653 INR -- 1.02 -- HEMOGLOBIN g/dL 10.8* -- 11.7* HEMATOCRIT % 33.2* -- 36.4 PLATELETS 10*3/mm3 190 -- 214 Date Time Anti-Xa Current Rate (Unit/kg/hr) Bolus (Units) Rate Change (Unit/kg/hr) New Rate (Unit/kg/hr) Next Anti-Xa Comments Pump Check Daily 05/14 2020 0.1 New start 4000 + 10.5 10.5 0200 Spoke with rn 05/15 0403 0.38 10.5 -- -- 10.5 1000 Discussed w/ nurse 05/15 1040 0.4 10.5 -- -- 10.5 To be scheduled when out of OR DW RN, continue heparin gtt until surgery. Pharmacy to schedule next lvl post op if heparin gtt continues Yonathan Cancino RPH 05/15/2022 15:51 EST * Nile Muse MD - 05/15/2022 8:55 AM EST CARDIOTHORACIC AND VASCULAR SURGERY PROGRESS NOTE OVERNIGHT EVENTS No acute events overnight SUBJECTIVE Pain improved on heparin, denies nausea, vomiting, shortness of breath OBJECTIVE BP 174/75 Pulse 64 Temp 98.3 ??F (36.8 ??C) (Oral) Resp 18 Ht 167.6 cm (66 ) Wt 95.3 kg (210 lb) SpO2 96% BMI 33.89 kg/m?? General no acute distress, pleasant, interactive Head normocephalic, atraumatic Eyes clear sclera ENT no discharge, neck supple Mouth mucous membranes moist Cardiac regular rate rhythm, no murmurs rubs gallops Vascular warm well perfused x4 extremities Pulmonary lungs clear to auscultation bilaterally Abdomen soft nontender nondistended Lymphatic no edema bilateral lower extremities Neurological grossly intact Psychological appropriate Dermatological no lesions in sun exposed areas Musculoskeletal normal tone and bulk WBC Date Value Ref Range Status 05/15/2022 8.43 3.40 - 10.80 10*3/mm3 Final RBC Date Value Ref Range Status 05/15/2022 3.54 (L) 3.77 - 5.28 10*6/mm3 Final Hemoglobin Date Value Ref Range Status 05/15/2022 10.8 (L) 12.0 - 15.9 g/dL Final Hematocrit Date Value Ref Range Status 05/15/2022 33.2 (L) 34.0 - 46.6 % Final MCV Date Value Ref Range Status 05/15/2022 93.8 79.0 - 97.0 fL Final MCH Date Value Ref Range Status 05/15/2022 30.5 26.6 - 33.0 pg Final MCHC Date Value Ref Range Status 05/15/2022 32.5 31.5 - 35.7 g/dL Final RDW Date Value Ref Range Status 05/15/2022 15.3 12.3 - 15.4 % Final RDW-SD Date Value Ref Range Status 05/15/2022 52.5 37.0 - 54.0 fl Final MPV Date Value Ref Range Status 05/15/2022 10.7 6.0 - 12.0 fL Final Platelets Date Value Ref Range Status 05/15/2022 190 140 - 450 10*3/mm3 Final Neutrophil % Date Value Ref Range Status 05/15/2022 62.3 42.7 - 76.0 % Final Lymphocyte % Date Value Ref Range Status 05/15/2022 24.6 19.6 - 45.3 % Final Monocyte % Date Value Ref Range Status 05/15/2022 10.0 5.0 - 12.0 % Final Eosinophil % Date Value Ref Range Status 05/15/2022 1.8 0.3 - 6.2 % Final Basophil % Date Value Ref Range Status 05/15/2022 0.5 0.0 - 1.5 % Final Immature Grans % Date Value Ref Range Status 05/15/2022 0.8 (H) 0.0 - 0.5 % Final Neutrophils, Absolute Date Value Ref Range Status 05/15/2022 5.26 1.70 - 7.00 10*3/mm3 Final Lymphocytes, Absolute Date Value Ref Range Status 05/15/2022 2.07 0.70 - 3.10 10*3/mm3 Final Monocytes, Absolute Date Value Ref Range Status 05/15/2022 0.84 0.10 - 0.90 10*3/mm3 Final Eosinophils, Absolute Date Value Ref Range Status 05/15/2022 0.15 0.00 - 0.40 10*3/mm3 Final Basophils, Absolute Date Value Ref Range Status 05/15/2022 0.04 0.00 - 0.20 10*3/mm3 Final Immature Grans, Absolute Date Value Ref Range Status 05/15/2022 0.07 (H) 0.00 - 0.05 10*3/mm3 Final nRBC Date Value Ref Range Status 05/15/2022 0.0 0.0 - 0.2 /100 WBC Final Basic Metabolic Panel Sodium Sodium Date Value Ref Range Status 05/15/2022 138 136 - 145 mmol/L Final 05/14/2022 134 (L) 136 - 145 mmol/L Final 05/14/2022 137 136 - 145 mmol/L Final Potassium Potassium Date Value Ref Range Status 05/15/2022 4.0 3.5 - 5.2 mmol/L Final 05/14/2022 3.9 3.5 - 5.2 mmol/L Final 05/14/2022 4.2 3.5 - 5.2 mmol/L Final Chloride Chloride Date Value Ref Range Status 05/15/2022 105 98 - 107 mmol/L Final 05/14/2022 100 98 - 107 mmol/L Final 05/14/2022 103 98 - 107 mmol/L Final Bicarbonate No results found for: PLASMABICARB BUN BUN Date Value Ref Range Status 05/15/2022 18 8 - 23 mg/dL Final 05/14/2022 18 8 - 23 mg/dL Final 05/14/2022 19 8 - 23 mg/dL Final Creatinine Creatinine Date Value Ref Range Status 05/15/2022 0.88 0.57 - 1.00 mg/dL Final 05/14/2022 0.81 0.57 - 1.00 mg/dL Final 05/14/2022 0.90 mg/dL Final 05/14/2022 0.90 0.60 - 1.30 mg/dL Final Comment: Serial Number: [id number]: [id number] 05/14/2022 0.86 0.57 - 1.00 mg/dL Final Calcium Calcium Date Value Ref Range Status 05/15/2022 9.2 8.6 - 10.5 mg/dL Final 05/14/2022 9.2 8.6 - 10.5 mg/dL Final 05/14/2022 9.6 8.6 - 10.5 mg/dL Final Glucose No components found for: GLUCOSE.* Scheduled Meds:aspirin, 81 mg, Oral, Daily bisoprolol, 5 mg, Oral, Q24H lactobacillus acidophilus, 1 capsule, Oral, Daily oxybutynin, 5 mg, Oral, Daily rosuvastatin, 10 mg, Oral, Daily sodium chloride, 10 mL, Intravenous, Q12H Continuous Infusions:heparin, 10.5 Units/kg/hr, Last Rate: 10.5 Units/kg/hr (05/14/221951) Pharmacy to Dose Heparin, sodium chloride, 50 mL/hr, Last Rate: 50 mL/hr (05/14/222149) PRN Meds:.??? acetaminophen OR acetaminophen OR acetaminophen ??? Pharmacy to Dose Heparin ??? sodium chloride ??? 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 Cardiothoracic and Vascular Surgeon [facility] Nile Muse MD 05/15/22 08:55 EST documented in this encounter H&P Notes * Anitha Zelaya MD - 05/14/2022 7:28 PM EST Images from the original note were not included. [facility] Medicine Services HISTORY AND PHYSICAL Patient Name: Juany Alarcon : 1950 Primary Care Physician: Talon Barragan MD Date of admission: 05/14/2022 Subjective Subjective Chief Complaint: Right arm pain, cold right arm HPI: Juany Alarcon is a 72 y.o. female with PMH significant for HTN, migraines, DIOGENES on CPAP, dyslipidemia, left breast cancer s/p mastectomy, saccular thoracic aortic aneurysm s/p TEVAR, who presentsto the ED with complaint of right arm pain and cold right arm. She states that she has been having mild intermittent right arm pain for several months. On 04/26/[address] she had [address] per Dr[address] Muse. Since that time, she reports that she has had increasing right arm pain that will go from her fingertips up to her right shoulder up her right neck and into the right side of her head. She also notes that she is unable to keep her right arm warm. She reports that she h as not been on blood thinners or her ASA since surgery. Today, her notes that he took her BP in her right arm and it was 91/67 and he was unable tofind a pulse. Her right arm BP was 126/76. Upon arrival to the ED, CTA upper right extremity was concerning for thrombotic occlusion of the brachial artery. Dr Muse was notified per ED provider with plan to take to OR. She will be admitted to Hospital Medicine for further evaluation. Review of Systems Constitutional: Positive for activity change. Negative for appetite change, chills, diaphoresis, fatigue, fever and unexpected weight change. Eyes: Negative. Negative for visual disturbance. Respiratory: Negative. Negative for cough, chest tightness, shortness of breath and wheezing. Cardiovascular: Negative. Negative for chest pain, palpitations and leg swelling. Gastrointestinal: Negative. Negative for abdominal distention, abdominal pain, constipation, diarrhea, nausea and vomiting. Endocrine: Negative. Genitourinary: Negative. Negative for difficulty urinating, dysuria, frequency and urgency. Musculoskeletal: Positive for back pain and myalgias. Negative for arthralgias and gait problem. Skin: Negative. Negative for color change, pallor, rash and wound. Allergic/Immunologic: Negative. Negative for immunocompromised state. Neurological: Positive for weakness and headaches. Negative for dizziness, seizures, syncope, speech difficulty, light-headedness and numbness. Hematological: Negative. Does not bruise/bleed easily. Psychiatric/Behavioral: Negative. Negative for confusion. The patient is not nervous/anxious. All other systems reviewed and are negative. Personal History Past Medical History: Diagnosis Date ??? Abnormal [...] related to sinusitis- data deficit ??? Weakness Oncology Problem List: Breast cancer (HCC) (Status: Active) Past Surgical History: Procedure Laterality Date ??? AORTAGRAM N/A 04/26/2022 Procedure: TEVAR; Surgeon: Nile Muse MD; Location: [facility]; Service: Vascular; Laterality: N/A; Fluoro: 7min 14 sec Dose: 2552mGy Contrast: Isovue 300- 110ml ??? SECTION 1990 ??? CHOLECYSTECTOMY 05/2004 ??? COLONOSCOPY ??? COMPLETE MASTECTOMY W/ SENTINEL NODE BIOPSY Left ??? KNEE SURGERY Right replacement ??? ORIF HIP FRACTURE Right spring ??? TONSILLECTOMY N/A ??? TOTAL KNEE ARTHROPLASTY Left 2019 left Family History: family history includes Heart disease in her father; Hypertension in her father, mother, and sister. Otherwise pertinent FHx was reviewed and unremarkable. Social History: reports that she has never smoked. She has never used smokeless tobacco. She reports current alcohol use of about 2.0 standard drinks per week. She reports that she does not use drugs. Social History Social History Narrative Lives in [facility] Medications: Probiotic Product, Vitamin D3, aspirin, bisoprolol-hydrochlorothiazide, cyanocobalamin, meloxicam, metoclopramide, mometasone, oxybutynin, potassium chloride, and rosuvastatin Allergies Allergen Reactions ??? Morphine And Related Confusion ??? Penicillins Rash Objective Objective Vital Signs: Temp: [98.2 ??F (36.8 ??C)] 98.2 ??F (36.8 ??C) Heart Rate: [67] 67 Resp: [16] 16 BP: (102-176)/(72-86) 102/77 Physical Exam Constitutional: Awake, alert, no acute distress Eyes: PERRLA, sclerae anicteric, no conjunctival injection HENT: NCAT, mucous membranes moist Neck: Supple, no thyromegaly, no lymphadenopathy, trachea midline Respiratory: Clear to auscultation bilaterally, nonlabored respirations Cardiovascular: RRR, no murmurs, rubs, or gallops, palpable pedal pulses bilaterally Gastrointestinal: Positive bowel sounds, soft, nontender, nondistended Musculoskeletal: No bilateral ankle edema, no clubbing or cyanosis to extremities, cool right upperextremity, decreased palpable radial pulse Psychiatric: Appropriate affect, cooperative Neurologic: Oriented x 3, strength symmetric in all extremities, Cranial Nerves grossly intact to confrontation, speech clear Skin: No rashes Result Review: I have personally reviewed the results from the time of this admission to 05/14/2022 19:51 EST and agree with these findings: [x] Laboratory list / accordion [] Microbiology [x] Radiology [] EKG/Telemetry [] Cardiology/Vascular [] Pathology [x] Old records [] Other: Most notable findings include: LAB RESULTS: Lab 05/14/22 1653 WBC 9.74 HEMOGLOBIN 11.7* HEMATOCRIT 36.4 PLATELETS 214 NEUTROS ABS 6.42 IMMATURE GRANS (ABS) 0.09* LYMPHS ABS 2.17 MONOS ABS 0.87 EOS ABS 0.15 MCV 96.3 Lab 05/14/22 1700 05/14/22 1659 05/14/22 1653 SODIUM -- -- 137 POTASSIUM -- -- 4.2 CHLORIDE -- -- 103 CO2 -- -- 25.0 ANION GAP -- -- 9.0 BUN -- -- 19 CREATININE 0.90 0.90 0.86 EGFR -- -- 72.3 GLUCOSE -- -- 119* CALCIUM -- -- 9.6 Lab 05/14/22 1653 TOTAL PROTEIN 6.8 ALBUMIN 4.00 GLOBULIN 2.8 ALT (SGPT) 17 AST (SGOT) 15 BILIRUBIN 0.6 ALK PHOS 81 Brief Urine Lab Results None Microbiology Results (last 10 days) No results found for the last [address] Angiogram Chest Result Date: 05/14/2022 DATE OF EXAM: 05/14/2022 5:09 PM PROCEDURE: CT ANGIOGRAM CHEST-, CT ANGIOGRAM UPPER EXTREMITY RIGHT- INDICATIONS: cold painful R arm; s/p aortic stent 04/26 COMPARISON: 04/27/2022 TECHNIQUE: Contiguousaxial imaging was obtained from the thoracic inlet through the upper abdomen and right upper extremity following the intravenous administration of 100 mL of Isovue 370. Reconstructed coronal and sagittal images were also obtained. Automated exposure control and iterative reconstruction methods wereused. The radiation dose reduction device was turned on for each scan per the ALARA (As Low as Reasonably Achievable) protocol. FINDINGS: There is no pathologic axillary adenopathy or other worrisomebody wall soft tissue finding in the chest. No acute findings are present in the partially characterized upper abdomen. There is no pleural or pericardial effusion. There is no pathologic mediastinaladenopathy. Redemonstrated postoperative changes from recent stenting of the right-sided aortic arch and proximal descending thoracic aorta, appearing similar to comparison without evidence of leak or persistent aneurysm. The pulmonary arteries are suboptimally opacified. The osseous structures demonstrate no acute findings. Evaluation of the lung ramos demonstrates no evidence of acute infectious process or suspicious pulmonary nodularity. Additional CT angiographic evaluation of the right upper extremity demonstrates good opacification of the subclavian artery, axillary and brachial arteryalong the proximal and distal humerus. Just beyond the ampulla fossa, the distal brachial artery demonstrates abrupt nonopacification, with nonvisualized radial and ulnar arteries, potentially somewhat due to technical factors but concerning for thrombotic occlusion. Impression: There is nonopacification of the brachial artery proximal to the radial and ulnar artery origins just beyond the antecubital fossa, concerning for thrombotic occlusion. Satisfactory in stable appearance of stented right- sided aortic arch. No acute nonvascular findings in the chest. Findings relayed to emergency room ordering physician by Edwardo Price via the messaging system in the electronic medical record at 6:44 PM 05/14/2022 This report was finalized on 05/14/2022 6:[address] Angiogram Upper Extremity Right Result Date: 05/14/2022 DATE OF EXAM: 05/14/2022 5:09 PM PROCEDURE: CT ANGIOGRAM CHEST-, CT ANGIOGRAM UPPER EXTREMITY RIGHT- INDICATIONS: cold painful R arm; s/p aortic stent 04/26 COMPARISON: 04/27/2022 TECHNIQUE: Contiguousaxial imaging was obtained from the thoracic inlet through the upper abdomen and right upper extremity following the intravenous administration of 100 mL of Isovue 370. Reconstructed coronal and sagittal images were also obtained. Automated exposure control and iterative reconstruction methods wereused. The radiation dose reduction device was turned on for each scan per the ALARA (As Low as Reasonably Achievable) protocol. FINDINGS: There is no pathologic axillary adenopathy or other worrisomebody wall soft tissue finding in the chest. No acute findings are present in the partially characterized upper abdomen. There is no pleural or pericardial effusion. There is no pathologic mediastinaladenopathy. Redemonstrated postoperative changes from recent stenting of the right-sided aortic arch and proximal descending thoracic aorta, appearing similar to comparison without evidence of leak or persistent aneurysm. The pulmonary arteries are suboptimally opacified. The osseous structures demonstrate no acute findings. Evaluation of the lung ramos demonstrates no evidence of acute infectious process or suspicious pulmonary nodularity. Additional CT angiographic evaluation of the right upper extremity demonstrates good opacification of the subclavian artery, axillary and brachial arteryalong the proximal and distal humerus. Just beyond the ampulla fossa, the distal brachial artery demonstrates abrupt nonopacification, with nonvisualized radial and ulnar arteries, potentially somewhat due to technical factors but concerning for thrombotic occlusion. Impression: There is nonopacification of the brachial artery proximal to the radial and ulnar artery origins just beyond the antecubital fossa, concerning for thrombotic occlusion. Satisfactory in stable appearance of stented right- sided aortic arch. No acute nonvascular findings in the chest. Findings relayed to emergency room ordering physician by Edwardo Price via the messaging system in the electronic medical record at 6:44 PM 05/14/2022 This report was finalized on 05/14/2022 6:45 PM byEdwardo Price. Duplex Upper Extremity Art / Grafts - Bilateral CAR Result Date: 05/14/2022 ??? Triphasic waveforms throughout the left upper extremity. No focal hemodynamically significant stenoses. ??? There are elevated velocities in the proximal right subclavian with monophasic waveforms. Monophasic waveforms noted throughout the right upper extremity distally. No focal hemodynamically significant stenoses visualized. ??? Based on the monophasic waveforms throughout the right upper extremity suspect more proximal right subclavian/brachiocephalic stenosis. Results for orders placed during the hospital encounter of 04/04/22 Adult Transthoracic Echo Complete w/ Color, Spectral and Contrast if necessary per protocol Interpretation Summary ??? Estimated left ventricular EF = 60% ??? The cardiac valves are anatomically and functionally normal. 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 female with PMH significant for HTN, migraines, DIOGENES on CPAP, dyslipidemia, left breast cancer s/p mastectomy, saccular thoracic aortic aneurysm s/p TEVAR, who presents to the ED with complaint of right arm pain and cold right arm who is found to have concern for brachial artery thrombosis. Brachial Artery Thrombosis -heparin gtt ordered in the ED -Plan for CT surgery (Dr Muse) to take to OR -Post op plan per CT surgery Essential Hypertension Dyslipidemia -continue bisoprolol (hold HCTZ for now) -continue statin -continue daily ASA DIOGENES -continue CPAP DVT prophylaxis: Heparin gtt ordered in ED, post-op prophylaxis plan per CT surgery CODE STATUS: Code Status (Patient has no pulse and is not breathing): CPR (Attempt to Resuscitate) Medical Interventions (Patient has pulse or is breathing): Full Support Expected Discharge Expected Discharge Date and Time Expected Discharge Date Expected Discharge Time May 17, 2022 This note has been completed as part of a split-shared workflow. Signature:Electronically signed by Amanda Mcwilliams APRN, 05/14/22, 7:50 PM EST. Attending Admission Attestation I have performed an independent [id number] diagnostic evaluation including performing an independent physical examination as documented here. The documented plan of care above was reviewed and developed with the advanced director of physician practices (APC). Brief Summary Statement: Juany Alarcon is a 72 y.o. female with history of hypertension, DIOGENES, aortic aneurysm status post TEVAR who presents with right upper extremity pain and coldness. Patient states that she has had pain in her right upper extremity remittent leg for months however after her last surgery on 04 26 its gotten much worse. Its also become cold. Labs are unremarkable. CTA of the upper extremity showed brachial artery thrombosis. CT surgery is planning on thrombectomy tonight. Started on heparin drip in the ED. Remainder of detailed HPI is as noted by APC and has been reviewed and/or edited by me for completeness. Attending Physical Exam: Temp: [98.2 ??F (36.8 ??C)] 98.2 ??F (36.8 ??C) Heart Rate: [67] 67 Resp: [16] 16 BP: (102-176)/(72-86) 102/77 Constitutional: Awake, alert Eyes: PERRLA, sclerae anicteric, no conjunctival injection HENT: NCAT, mucous membranes moist Neck: Supple, trachea midline Respiratory: Clear to auscultation bilaterally, nonlabored respirations Cardiovascular: RRR, no murmurs, rubs, or gallops, right upper extremity pulses intact, no coldnessnoted Gastrointestinal: Positive bowel sounds, soft, nontender, nondistended Musculoskeletal: No bilateral ankle edema, no clubbing or cyanosis to extremities Psychiatric: Appropriate affect, cooperative Neurologic: Oriented x 3, gross focal neurological deficits Skin: No rashes Brief Assessment/Plan : See detailed assessment and plan developed with APC which I have reviewed and/or edited for completeness. Anitha Zelaya MD 05/14/22 documented in this encounter Consult Notes * Nile Muse MD - 05/14/2022 9:00 PM ESTAssociated Order(s): IP CONSULT TO CARDIOTHORACIC SURGERY CARDIOTHORACIC AND VASCULAR SURGERY CONSULTATION NOTE Referring Physician/Provider: ER Chief Complaint/Reason for Consultation: Right arm pain HPI: 72 yo woman with history of dysphagia [place] and aortic aneurysm s/p TEVAR on 04/26/2022 who presents to [facility] ER with weeks of worsening right arm pain. She reports worsening pain since after the operation weeks ago, and cramping and weakness when using the arm during activity. Location - As above, right arm and forearm Severity - Moderate Timing - As above Duration - As above Radiation - None Context - As above Modifying factors - Exercise Associated symptoms - None Review of Systems General ROS: negative Psychological ROS: negative Ophthalmic ROS: negative ENT ROS: negative Allergy and Immunology ROS: negative Hematological and Lymphatic ROS: negative Endocrine ROS: negative Breast ROS: negative Respiratory ROS: negative Cardiovascular ROS: negative Gastrointestinal ROS: negative Genito-Urinary ROS: negative Musculoskeletal ROS: negative Neurological ROS: negative Dermatological ROS: negative Past Medical History: Diagnosis Date ??? Abnormal [...] Procedure: TEVAR; Surgeon: Nile Muse MD; Location: [facility]; Service: Vascular; Laterality: N/A; Fluoro: 7min 14 sec Dose: 2552mGy Contrast: Isovue 300- 110ml ??? SECTION 1990 ??? CHOLECYSTECTOMY 05/2004 ??? COLONOSCOPY ??? COMPLETE MASTECTOMY W/ SENTINEL NODE BIOPSY Left ??? KNEE SURGERY Right replacement ??? ORIF HIP FRACTURE Right spring ??? TONSILLECTOMY N/A ??? TOTAL KNEE ARTHROPLASTY Left 2018 left Family History Problem Relation Age of Onset ??? Hypertension Mother ??? Heart disease Father ??? Hypertension Father ??? Hypertension Sister Social History Socioeconomic History ??? Marital status: ??? Number of children: 1 Tobacco Use ??? Smoking status: Never ??? Smokeless tobacco: Never Vaping Use ??? Vaping Use: Never used Substance and Sexual Activity ??? Alcohol use: Yes Alcohol/week: 2.0 standard drinks Types: 2 Drinks containing 0.5 oz of alcohol per week Comment: social ??? Drug use: No ??? Sexual activity: Defer Allergies Allergen Reactions ??? Morphine And Related Confusion ??? Penicillins Rash OBJECTIVE Patient Vitals for the past 24 hrs: BP Temp Temp src Pulse Resp SpO2 Height Weight 05/14/221999 134/71 -- -- 65 18 96 % -- -- 05/14/22 1900 103/77 -- -- 64 18 100 % -- -- 05/14/22 1800 98/77 -- -- 68 17 100 % -- -- 05/14/22 1700 114/84 -- -- 61 16 100 % -- -- 05/14/22 1600 102/77 -- -- -- -- -- -- -- 05/14/22 1354 111/72 98.2 ??F (36.8 ??C) Oral -- -- -- -- -- 05/14/22 1352 176/86 -- Oral 67 16 98 % 167.6 cm (66 ) 95.3 kg (210 lb) 05/14/221351 Weight: 95.3 kg (210 lb) Exam General no acute distress, pleasant, interactive Head normocephalic, atraumatic Eyes clear sclera ENT no discharge, neck supple Mouth mucous membranes moist Cardiac regular rate rhythm, no murmurs rubs gallops Vascular R radial/ulnar/palmar Doppler signals without palpable pulses Pulmonary lungs clear to auscultation bilaterally Abdomen soft nontender nondistended Lymphatic no edema bilateral lower extremities Neurological grossly intact, R handgrip and finger strength intact 5/5 Psychological appropriate Dermatological no lesions in sun exposed areas, cyanosis of R fingernails Musculoskeletal normal tone and bulk Diet Orders (active) (From admission, onward) Start Ordered 05/14/222039 NPO Diet NPO Type: Strict NPO Diet Effective Now 05/14/222038 CBC WBC Date Value Ref Range Status 05/14/2022 9.74 3.40 - 10.80 10*3/mm3 Final RBC Date Value Ref Range Status 05/14/2022 3.78 3.77 - 5.28 10*6/mm3 Final Hemoglobin Date Value Ref Range Status 05/14/2022 11.7 (L) 12.0 - 15.9 g/dL Final Hematocrit Date Value Ref Range Status 05/14/2022 36.4 34.0 - 46.6 % Final MCV Date Value Ref Range Status 05/14/2022 96.3 79.0 - 97.0 fL Final MCH Date Value Ref Range Status 05/14/2022 31.0 26.6 - 33.0 pg Final MCHC Date Value Ref Range Status 05/14/2022 32.1 31.5 - 35.7 g/dL Final RDW Date Value Ref Range Status 05/14/2022 15.2 12.3 - 15.4 % Final RDW-SD Date Value Ref Range Status 05/14/2022 54.1 (H) 37.0 - 54.0 fl Final MPV Date Value Ref Range Status 05/14/2022 10.6 6.0 - 12.0 fL Final Platelets Date Value Ref Range Status 05/14/2022 214 140 - 450 10*3/mm3 Final Neutrophil % Date Value Ref Range Status 05/14/2022 66.0 42.7 - 76.0 % Final Lymphocyte % Date Value Ref Range Status 05/14/2022 22.3 19.6 - 45.3 % Final Monocyte % Date Value Ref Range Status 05/14/2022 8.9 5.0 - 12.0 % Final Eosinophil % Date Value Ref Range Status 05/14/2022 1.5 0.3 - 6.2 % Final Basophil % Date Value Ref Range Status 05/14/2022 0.4 0.0 - 1.5 % Final Immature Grans % Date Value Ref Range Status 05/14/2022 0.9 (H) 0.0 - 0.5 % Final Neutrophils, Absolute Date Value Ref Range Status 05/14/2022 6.42 1.70 - 7.00 10*3/mm3 Final Lymphocytes, Absolute Date Value Ref Range Status 05/14/2022 2.17 0.70 - 3.10 10*3/mm3 Final Monocytes, Absolute Date Value Ref Range Status 05/14/2022 0.87 0.10 - 0.90 10*3/mm3 Final Eosinophils, Absolute Date Value Ref Range Status 05/14/2022 0.15 0.00 - 0.40 10*3/mm3 Final Basophils, Absolute Date Value Ref Range Status 05/14/2022 0.04 0.00 - 0.20 10*3/mm3 Final Immature Grans, Absolute Date Value Ref Range Status 05/14/2022 0.09 (H) 0.00 - 0.05 10*3/mm3 Final nRBC Date Value Ref Range Status 05/14/2022 0.0 0.0 - 0.2 /100 WBC Final Basic Metabolic Panel Sodium Sodium Date Value Ref Range Status 05/14/2022 134 (L) 136 - 145 mmol/L Final 05/14/2022 137 136 - 145 mmol/L Final Potassium Potassium Date Value Ref Range Status 05/14/2022 3.9 3.5 - 5.2 mmol/L Final 05/14/2022 4.2 3.5 - 5.2 mmol/L Final Chloride Chloride Date Value Ref Range Status 05/14/2022 100 98 - 107 mmol/L Final 05/14/2022 103 98 - 107 mmol/L Final Bicarbonate No results found for: PLASMABICARB BUN BUN Date Value Ref Range Status 05/14/2022 18 8 - 23 mg/dL Final 05/14/2022 19 8 - 23 mg/dL Final Creatinine Creatinine Date Value Ref Range Status 05/14/2022 0.81 0.57 - 1.00 mg/dL Final 05/14/2022 0.90 mg/dL Final 05/14/2022 0.90 0.60 - 1.30 mg/dL Final Comment: Serial Number: [id number] 05/14/2022 0.86 0.57 - 1.00 mg/dL Final Calcium Calcium Date Value Ref Range Status 05/14/2022 9.2 8.6 - 10.5 mg/dL Final 05/14/2022 9.6 8.6 - 10.5 mg/dL Final Glucose No components found for: GLUCOSE.* Current Facility-Administered Medications: ??? acetaminophen (TYLENOL) tablet 650 mg, 650 mg, Oral, Q4H PRN OR acetaminophen (TYLENOL) 160MG/5ML solution 650 mg, 650 mg, Oral, Q4H PRN OR acetaminophen (TYLENOL) suppository 650 mg, 650 mg, Rectal, Q4H PRN, Amanda Mcwilliams, BOX CUTTER ??? [START ON 05/15/2022] aspirin EC tablet 81 mg, 81 mg, Oral, Daily, Amanda Mcwilliams, BOX CUTTER ??? [START ON 05/15/2022] bisoprolol (ZEBeta) tablet 5 mg, 5 mg, Oral, Q24H, Amanda Mcwilliams, BOX CUTTER ??? heparin 48532 units/250 mL (100 units/mL) in 0.45 % NaCl infusion, 10.5 Units/kg/hr, Intravenous, Titrated, Ankit Mendoza PA-C, Last Rate: 10 mL/hr at 05/14/221951, 10.5 Units/kg/hr at 05/14/221951 ??? [START ON 05/15/2022] lactobacillus acidophilus (RISAQUAD) capsule 1 capsule, 1 capsule, Oral, Daily, Amanda Mcwilliams R, BOX CUTTER ??? [START ON 05/15/2022] oxybutynin (DITROPAN) tablet 5 mg, 5 mg, Oral, Daily, Amanda Mcwilliams, BOX CUTTER ??? Pharmacy to Dose Heparin, , Does not apply, Continuous PRN, Ankit Mendoza PA-C ??? [START ON 05/15/2022] rosuvastatin (CRESTOR) tablet 10 mg, 10 mg, Oral, Daily, Amanda Mcwilliams R, BOX CUTTER ??? sodium chloride 0.9 % flush 10 mL, 10 mL, Intravenous, Q12H, Amanda Mcwilliams, BOX CUTTER ??? sodium chloride 0.9 % flush 10 mL, 10 mL, Intravenous, PRN, Amanda Mcwilliams, BOX CUTTER ??? sodium chloride 0.9 % infusion 40 mL, 40 mL, Intravenous, PRN, Amanda Mcwilliams, BOX CUTTER ??? sodium chloride 0.9 % infusion, 50 mL/hr, Intravenous, Continuous, Amanda Mcwilliams R, BOX CUTTER Current Outpatient Medications Medication Instructions ??? aspirin 81 mg, Oral, Daily ??? bisoprolol-hydrochlorothiazide (ZIAC) 5-6.25 MG per tablet 1 tablet, Oral, Daily ??? cyanocobalamin (VITAMIN B-12) 500 mcg, Oral, Daily ??? meloxicam (MOBIC) 7.5 mg, Oral, Daily ??? metoclopramide (REGLAN) 5 mg, Oral, Daily ??? mometasone (NASONEX) 50 MCG/ACT nasal spray 2 sprays, Nasal, As Needed ??? oxybutynin (DITROPAN) 5 mg, Oral, Daily ??? potassium chloride (K-DUR,KLOR-CON) 20 MEQ CR tablet 20 mEq, Oral, Daily ??? Probiotic Product (PROBIOTIC PO) 1 tablet, Oral, Daily ??? rosuvastatin (CRESTOR) 10 mg, Oral, Daily ??? Vitamin D3 2,000 Units, Oral, Daily IMAGING CTA chest and R upper extremity reviewed ASSESSMENT 72 yo woman with history of dysphagia lusoria and aortic aneurysm s/p TEVAR on 04/26/2022 who presents to [facility] ER with weeks of worsening right arm pain and cramping with absent RUE pulses and CTA with brachial artery occlusion concerning for Taniya IIa acute limb ischemia. This is unlikely related to the operation, concerning for possible occult arrhythmia. 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 Nile Muse M.D., R.P.V.I. Cardiothoracic and Vascular Surgeon [facility] Nile Muse MD 05/14/22 21:00 EST documented in this encounter Nursing Notes * Mirna Shay RN - 05/16/2022 4:37 PM EST Goal Outcome Evaluation: Pt alert and oriented x4, vs stable, and on RA. Pt dressing dry and intact. D/c home with family. Teaching provided about Eliquis. Call light within reach. * Jailyn Steward RN - 05/16/2022 6:36 AM EST Goal Outcome Evaluation: RA. NSR. A&O x4. NS @ 50 mL/hr. Heparin gtt currently infusing at 10.5 u/kg/hr. Cardene gtt currently infusing for BP. R brachial dressing CDI. No c/o pain at this time. * Jailyn Steward RN - 05/16/2022 5:07 AM EST Goal Outcome Evaluation: RA. NSR. A&O x4. NS @ 50 mL/hr. Heparin gtt currently infusing at 10.5 u/kg/hr. Cardene gtt currently infusing for BP. R brachial dressing CDI. No c/o pain at this time. * Lien Francois RN - 05/15/2022 7:24 PM EST Goal Outcome Evaluation: Progress: improving Outcome Evaluation: Pt arrived on floor at 1800. VSS. Cardene drip. NS room air. * Norma Lora RN - 05/15/2022 5:26 PM ESTSummary: Belongings Belongings transferred to S459 from S363 Includes: large floral bag, 2 coats, eye glasses, phone legislative aide and clothes from closet . Spouse aware of location of belongings * Zhanna Irby RN - 05/15/2022 6:16 AM EST Goal Outcome Evaluation: Plan of Care Reviewed With: patient Progress: no change Outcome Evaluation: Pt VSS, heparin is currently running 10.5 units/kg/hr and currently therapeuticnext anti-xa at 1000 this morning, used a doppler to find her pulse right radial and right foot. 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 Right brachial artery cutdown and exploration 2. Kelley thrombectomy of right brachial artery and forearm arteries 3. Right upper extremity arteriogram Surgeon: Nile Muse M.D., R.P.V.I. Industrial Training Specialist(s): Edward BRICE The presence and participation of the physician's service assistant was necessary for the successful completion of the case, and duties included positioning, suctioning, retracting, stitching, dressing, holding intracorporeal devices such as a wire or camera and/or harvesting vessels for bypass as needed. Anesthesia: General endotracheal anesthesia Estimated Blood Loss: Minimal Complications: None Indications: 72-year-old woman with history of thoracic aortic aneurysm and dysphagia Stacia Rosales status post TEVAR approximately 3 weeks ago who presented with worsening right upper extremity effort weakness and discomfort. Brachial artery occlusion at the level of the antebrachial fossa was noted on CTA. I discussed with the patient and her family members the risks, benefits, and alternatives of the procedureincluding risk of bleeding, infection, heart attack, stroke, permanent disability, and . The patient demonstrated good understanding and signed written consent. Operative Findings: No appreciable thrombosis noted. Ulnar artery dominant filling of the hand. Procedure in Detail: The patient was identified in the preoperative area and taken to the operating room and laid in thesupine position on the operating room table. General anesthesia was induced and an endotracheal tube was placed. Systemic antibiotics were administered. A safety pause was performed in the presence of the entire operating room staff. The right arm was prepped and draped in the standard fashion and a transverse incision was made over the antebrachial fossa. The brachial artery was explored and isolated after meticulous dissection. The artery was controlled proximally and distally with Yasargil clips and the anterior aspect of the brachial artery was opened transversely. There was excellent high-pressure antegrade and retrograde bleeding. I performed Kelley embolectomy attempt using a 2 mm Kelley embolectomy catheter past nonselectively down the forearm x2 with no removal of thrombotic material. I inserted a catheter into the opened brachial artery and performed arteriography nonselectively, which revealed a widely patent distal brachial and radial and ulnar artery system with the ulnar artery being the dominant runoff to the hand. I flushed the arteries again antegradely and retrogradely and confirmed there was excellent high-pressure flow. I closed the artery primarily with 2 int errupted 7-0 Prolene stitches, and there was biphasic Doppler signals at the radial and ulnar arteries at the wrist. All needle, sponge, and instrument counts were correct at the completion of the procedure. I was present for the critical portions of the procedure. Nile Muse M.D., R.P.V.I. Cardiothoracic and Vascular Surgeon 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 Post-Op Diagnosis Codes: Same Procedure(s): RIGHT BRACHIAL ARTERY CUTDOWN AND EXPLORATION, KELLEY THROMBOECTOMY, RIGHT UPPER EXTREMITY ANTERIOGRAM Surgeon(s): Nile Muse MD Anesthesia: Choice Staff: Certified Ophthalmic Technologist: Marylu Munoz RN; Keysha Diallo RN; Sabra Glaser RN Sourcing Analyst: Reece Fleming RT Scrub Person: Rudy Wild Industrial Training Specialist: Edward Resendez PA Industrial Training Specialist: Edward Resendez PA Estimated Blood Loss: minimal Urine Voided: * No values recorded between 05/15/2022 2:53 PM and 05/15/2022 4:34 PM * Specimens: None Drains: [REMOVED] External Urinary Catheter (Removed) Site Assessment Clean;Skin intact 04/27/22 1200 Application/Removal external catheter applied 04/26/22 1803 Collection Container Wall suction 04/27/22 1200 Wall suction (mmHG) 120 mmHG 04/26/22 1803 Securement Method Securing device 04/27/22 1200 Output (mL) 300 mL 04/27/22 0600 Findings: No appreciable thrombosis Complications: None Industrial Training Specialist: Edward Resendez PA was responsible for performing the following activities: Retraction, Suction, Irrigation, Suturing,Closing and Placing Dressing and their skilled assistance was necessary for the success of this case. Nile Muse MD Date: 05/15/2022 Time: 20:15 EST documented in this encounter ED Notes * Ankit Mendoza PA-Margo - 05/14/2022 2:15 PM EST EMERGENCY DEPARTMENT ENCOUNTER Pt Name: Juany Alarcon Pt : 1950 Room Number: 1616 Date of encounter: 05/14/2022 PCP: Talon Barragan MD ED Provider: Ankit Mendoza PA-C Historian: Patient HPI: Chief Complaint: Right arm pain and coolness since aortic stent placed on 04/26. Context: Juany Alarcon is a 72 y.o. female who presents to the ED c/o right arm pain numbness and coolness since having an aortic stent placed per Dr. Muse on April 26. Symptoms started few days after the procedure, patient attributed the pain to multiple IV sticks. She states she has to keep her arm wrapped to keep it warm. She describes fairly constant pain to the right arm. Patient states she has been checking her blood pressures in both arms, and around 830 this morning her left armBP was 126/76 and her right arm BP was 91/67. Today here, her left arm blood pressure is 176/86 andright arm blood pressure is 111/72 at 1352 hrs. PAST MEDICAL HISTORY Past Medical History: Diagnosis Date ??? Abnormal [...] related to sinusitis- data deficit ??? Weakness PAST SURGICAL HISTORY Past Surgical History: Procedure Laterality Date ??? AORTAGRAM N/A 04/26/2022 Procedure: TEVAR; Surgeon: Nile Muse MD; Location: [facility]; Service: Vascular; Laterality: N/A; Fluoro: 7min 14 sec Dose: 2552mGy Contrast: Isovue 300- 110ml ??? SECTION 1990 ??? CHOLECYSTECTOMY 05/2004 ??? COLONOSCOPY ??? COMPLETE MASTECTOMY W/ SENTINEL NODE BIOPSY Left ??? KNEE SURGERY Right replacement ??? ORIF HIP FRACTURE Right spring ??? TONSILLECTOMY N/A ??? TOTAL KNEE ARTHROPLASTY Left 2019 left FAMILY HISTORY Family History Problem Relation Age of Onset ??? Hypertension Mother ??? Heart disease Father ??? Hypertension Father ??? Hypertension Sister SOCIAL HISTORY Social History Socioeconomic History ??? Marital status: ??? Number of children: 1 Tobacco Use ??? Smoking status: Never ??? Smokeless tobacco: Never Vaping Use ??? Vaping Use: Never used Substance and Sexual Activity ??? Alcohol use: Yes Alcohol/week: 2.0 standard drinks Types: 2 Drinks containing 0.5 oz of alcohol per week Comment: social ??? Drug use: No ??? Sexual activity: Defer ALLERGIES Morphine and related and Penicillins REVIEW OF SYSTEMS Review of Systems All systems reviewed and negative except for those discussed in HPI. PHYSICAL EXAM I have reviewed the triage vital signs and nursing notes. ED Triage Vitals Temp Heart Rate Resp BP SpO2 05/14/22 1354 05/14/22 1352 05/14/22 1352 05/14/22 1352 05/14/22 1352 98.2 ??F (36.8 ??C) 67 16 176/86 98 % Temp src Heart Rate Source Patient Position BP Location FiO2 (%) 05/14/22 1352 05/14/22 1352 05/14/22 1352 05/14/22 1352 -- Oral Monitor Sitting Left arm Physical Exam GENERAL: Appears in no acute distress. HENT: Nares patent. EYES: No scleral icterus. CV: Regular rhythm, regular rate. RESPIRATORY: Normal effort. No audible wheezes, rales or rhonchi. ABDOMEN: Soft, nontender MUSCULOSKELETAL: No deformities. NEURO: Alert, moves all extremities, follows commands. SKIN: Warm, dry, no rash visualized. LAB RESULTS Recent Results (from the past 24 hour(s)) Duplex Upper Extremity Art / Grafts - Bilateral CAR Collection Time: 05/14/22 3:40 PM Result Value Ref Range Target HR (85%) 127 bpm Max. Pred. HR (100%) 149 bpm Prox SCLA PSV 102.0 cm/sec Prox SCLA PSV 160.0 cm/sec Rt. Subclavian Artery PSV 232.00 cm/s Rt. Subclavian Artery EDV 23.50 cm/s Rt. Axillary Artery PSV 41.40 cm/s Rt. Brachial Artery PSV 36.70 cm/s Rt. Radial Artery PSV 34.50 cm/s Rt. Ulnar Artery PSV 32.30 cm/s Upper arterial right arm brachial sys max 106 mmHg Upper arterial left arm brachial sys max 164 mmHg Upper arterial right arm radial sys max 95 mmHg Upper arterial left arm radial sys max 160 mmHg Upper arterial right arm ulnar sys max 100 mmHg Upper arterial left arm ulnar sys max 158 mmHg RIGHT WBI RATIO 0.94 LEFT WBI RATIO 0.98 Lt. Subclavian Artery PSV 133.00 cm/s Lt. Axillary Artery PSV 97.90 cm/s Lt. Brachial Artery PSV 111.00 cm/s Lt. Radial Artery PSV 131.00 cm/s Lt. Ulnar Artery PSV 109.00 cm/s Comprehensive Metabolic Panel Collection Time: 05/14/22 4:53 PM Specimen: Blood Result Value Ref Range Glucose 119 (H) 65 - 99 mg/dL BUN 19 8 - 23 mg/dL Creatinine 0.86 0.57 - 1.00 mg/dL Sodium 137 136 - 145 mmol/L Potassium 4.2 3.5 - 5.2 mmol/L Chloride 103 98 - 107 mmol/L CO2 25.0 22.0 - 29.0 mmol/L Calcium 9.6 8.6 - 10.5 mg/dL Total Protein 6.8 6.0 - 8.5 g/dL Albumin 4.00 3.50 - 5.20 g/dL ALT (SGPT) 17 1 - 33 U/L AST (SGOT) 15 1 - 32 U/L Alkaline Phosphatase 81 39 - 117 U/L Total Bilirubin 0.6 0.0 - 1.2 mg/dL Globulin 2.8 gm/dL A/G Ratio 1.4 g/dL BUN/Creatinine Ratio 22.1 7.0 - 25.0 Anion Gap 9.0 5.0 - 15.0 mmol/L eGFR 72.3 >60.0 mL/min/1.73 CBC Auto Differential Collection Time: 05/14/22 4:53 PM Specimen: Blood Result Value Ref Range WBC 9.74 3.40 - 10.80 10*3/mm3 RBC 3.78 3.77 - 5.28 10*6/mm3 Hemoglobin 11.7 (L) 12.0 - 15.9 g/dL Hematocrit 36.4 34.0 - 46.6 % MCV 96.3 79.0 - 97.0 fL MCH 31.0 26.6 - 33.0 pg MCHC 32.1 31.5 - 35.7 g/dL RDW 15.2 12.3 - 15.4 % RDW-SD 54.1 (H) 37.0 - 54.0 fl MPV 10.6 6.0 - 12.0 fL Platelets 214 140 - 450 10*3/mm3 Neutrophil % 66.0 42.7 - 76.0 % Lymphocyte % 22.3 19.6 - 45.3 % Monocyte % 8.9 5.0 - 12.0 % Eosinophil % 1.5 0.3 - 6.2 % Basophil % 0.4 0.0 - 1.5 % Immature Grans % 0.9 (H) 0.0 - 0.5 % Neutrophils, Absolute 6.42 1.70 - 7.00 10*3/mm3 Lymphocytes, Absolute 2.17 0.70 - 3.10 10*3/mm3 Monocytes, Absolute 0.87 0.10 - 0.90 10*3/mm3 Eosinophils, Absolute 0.15 0.00 - 0.40 10*3/mm3 Basophils, Absolute 0.04 0.00 - 0.20 10*3/mm3 Immature Grans, Absolute 0.09 (H) 0.00 - 0.05 10*3/mm3 nRBC 0.0 0.0 - 0.2 /100 WBC POC Creatinine Collection Time: 05/14/22 4:59 PM Specimen: Blood Result Value Ref Range Creatinine 0.90 0.60 - 1.30 mg/dL POCT, Creatinine Collection Time: 05/14/22 5:00 PM Specimen: Blood Result Value Ref Range Creatinine 0.90 mg/dL If labs were ordered, I independently reviewed the results and considered them in treating the patient. RADIOLOGY CT Angiogram Upper Extremity Right, CT Angiogram Chest Result Date: 05/14/2022 DATE OF EXAM: 05/14/2022 5:09 PM PROCEDURE: CT ANGIOGRAM CHEST-, CT ANGIOGRAM UPPER EXTREMITY RIGHT- INDICATIONS: cold painful R arm; s/p aortic stent 04/26 COMPARISON: 04/27/2022 TECHNIQUE: Contiguousaxial imaging was obtained from the thoracic inlet through the upper abdomen and right upper extremity following the intravenous administration of 100 mL of Isovue 370. Reconstructed coronal and sagittal images were also obtained. Automated exposure control and iterative reconstruction methods wereused. The radiation dose reduction device was turned on for each scan per the ALARA (As Low as Reasonably Achievable) protocol. FINDINGS: There is no pathologic axillary adenopathy or other worrisomebody wall soft tissue finding in the chest. No acute findings are present in the partially characterized upper abdomen. There is no pleural or pericardial effusion. There is no pathologic mediastinaladenopathy. Redemonstrated postoperative changes from recent stenting of the right-sided aortic arch and proximal descending thoracic aorta, appearing similar to comparison without evidence of leak or persistent aneurysm. The pulmonary arteries are suboptimally opacified. The osseous structures demonstrate no acute findings. Evaluation of the lung ramos demonstrates no evidence of acute infectious process or suspicious pulmonary nodularity. Additional CT angiographic evaluation of the right upper extremity demonstrates good opacification of the subclavian artery, axillary and brachial arteryalong the proximal and distal humerus. Just beyond the ampulla fossa, the distal brachial artery demonstrates abrupt nonopacification, with nonvisualized radial and ulnar arteries, potentially somewhat due to technical factors but concerning for thrombotic occlusion. There is nonopacification of the brachial artery proximal to the radial and ulnar artery origins just beyond the antecubital fossa, concerning for thrombotic occlusion. Satisfactory in stable appearance of stented right-sided aortic arch. No acute nonvascular findings in the chest. Findings relayedto emergency room ordering physician by Edwardo Price via the messaging system in the electronicmedical record at 6:44 PM 05/14/2022 This report was finalized on 05/14/2022 6:45 PM by Edwardo Price. PROCEDURES Procedures No orders to display MEDICATIONS GIVEN IN ER Medications heparin (porcine) injection 4,000 Units (has no administration in time range) heparin 45457 units/250 mL (100 units/mL) in 0.45 % NaCl infusion (has no administration in time range) Pharmacy to Dose Heparin (has no administration in time range) iopamidol (ISOVUE-370) 76 % injection 100 mL (100 mL Intravenous Given 05/14/22 1725) MEDICAL DECISION MAKING, PROGRESS, and CONSULTS All labs have been independently reviewed by me. All radiology studies have been reviewed by me andthe radiologist dictating the report. All EKG's have been independently viewed and interpreted by me. Discussion below represents my analysis of pertinent findings related to patient's condition, differential diagnosis, treatment plan and final disposition. Differential diagnosis: Arterial occlusion, thrombosis, intermittent claudication, dissection Additional sources: - Discussed/ obtained information from independent historians: - External (non-ED) record review: Reviewed records from aortic aneurysm stenting - Chronic or social conditions impacting care: Patient lives in [place], about a 2-hour drive - Shared decision making: Reviewed findings at bedside with patient. Discussed with , who recommends heparinization and he will see patient in the ED, and most likely take to the OR tonight. Orders placed during this visit: Orders Placed This Encounter Procedures ??? CT Angiogram Upper Extremity Right ??? CT Angiogram Chest ??? Comprehensive Metabolic Panel ??? CBC Auto Differential ??? Heparin Anti-Xa ??? Protime-INR ??? aPTT ??? NPO Diet NPO Type: Strict NPO ??? Notify Provider Platelet Count Less Than 61085 ? ? Stop Infusion & Notify Provider if Bleeding Occurs ??? Cardiac Monitoring ??? POCT, Creatinine ??? POC Creatinine ??? Inpatient Admission ? ? CBC & Differential ? ? CBC & Differential Additional orders considered but not ordered: ED Course: Consultants: Discussed with Dr. Muse, who will see patient in the ED. Heparin bolus and infusion ordered, keep NPO, admit to hospitalist service OF 19:23 EST VITALS: BP - 102/77 HR - 67 TEMP - 98.2 ??F (36.8 ??C) (Oral) O2 SATS - 98% DIAGNOSIS Final diagnoses: Brachial artery thrombosis (HCC) Right arm pain DISPOSITION Admit to hospitalist service Please note that portions of this document were completed with voice recognition software. Ankit Mendoza PA-C 05/14/221922 Cosigned by Preston Manuel DO at 05/14/2022 10:15 PM EST Associated attestation - Preston Manuel DO - 05/14/2022 10:15 PM EST SUPERVISE: For this patient encounter, I reviewed the APC's documentation, treatment plan, and medical decision making. Preston Manuel DO 05/14/2022 22:14 EST documented in this encounter Miscellaneous Notes * Case Management/Social Work - Kellie Ervin RN - 05/16/2022 2:23 PM EST Continued Stay Note Janusz Patient Name: Juany Alarcon Today's Date: 05/16/2022 Admit Date: 05/14/2022 Plan: Home at discharge Discharge Plan Row Name 05/16/22 1423 Plan Plan Home at discharge Final Discharge Disposition Code 01 - home or self-care Final Note Patient expected to discharge home today. No new dc needs identified. Follow up with Dr Muse has already been made. Patient to dc home with spouse - she remains independent of ADLs - kellie [phone] Discharge Codes No documentation. Expected Discharge Date and Time Expected Discharge Date Expected Discharge Time May 16, 2022 Kellie Ervin RN * Case Management/Social Work - Jay Sorenson RN - 05/15/2022 11:30 AM EST Discharge Planning Assessment [place] Patient Name: Juany Alarcon Today's Date: 05/15/2022 Admit Date: 05/14/2022 Plan: Home Discharge Needs Assessment Row Name 05/15/22 1127 Living Environment People in Home spouse Current Living Arrangements home Primary Care Provided by self Provides Primary Care For no one Family Caregiver if Needed child(tom), adult;spouse Able to Return to Prior Arrangements yes Transition Planning Patient/Family Anticipates Transition to home Transportation Anticipated family or friend will provide Discharge Needs Assessment Readmission Within the Last 30 Days current reason for admission unrelated to previous admission Equipment Currently Used at Home none Discharge Plan Row Name 05/15/22 1128 Plan Plan Home Patient/Family in Agreement with Plan yes Plan Comments I met with Mrs. Alarcon at the bedside. She lives with her in [facility]. She is independent with mobility and activities of daily living. She drives herself when leaving the home and is not current with any home or outpatient services. She has no medical equipment at home and denies any difficulty in obtaining or affording her medications. Mrs. Alarcon anticipates going home at the time of discharge and states that her will transport her at that time. No dischargeneeds identified at this time. Case management will continue to follow. Final Discharge Disposition Code 01 - home or self-care Continued Care and Services - Admitted Since 05/14/2022 Coordination has not been started for this encounter. Expected Discharge Date and Time Expected Discharge Date Expected Discharge Time May 16, 2022 Demographic Summary Row Name 05/15/22 1126 General Information General Information Comments Confirmed PCP to be Talon Barragan and Medicare and [employer] to be insurers. 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 Psychosocial No documentation. Abuse/Neglect No documentation. Legal No documentation. Substance Abuse No documentation. Patient Forms No documentation. Jay Sorenson RN documented in this encounter Plan of Treatment Upcoming Encounters Date Type Department Care Team (Late st Contact Info) Description 07/29/2024 10:45 AM EST Office Visit [facility] CARDIOLOGY [address] [facility] [address] [place] [address] Goyo Khan MD [address] [facility] [address] [place] [id number] 09/02/2024 11:30 AM EDT Office Visit [facility] CARDIOTHORACIC SURGERY [address] [place] [id number] Dee Jaimes, BOX CUTTER [address] [place] [address] documented as of this encounter Procedures Procedure Name Priority Date/Time Associated Diagnosis Comments HEPARIN ANTI XA Timed 05/16/2022 2:14 PM EST PREPARE RBC Routine 05/16/2022 10:30 AM EST HEPARIN ANTI XA Timed 05/16/2022 1:34 AM EST XR [place] OR PROCEDURE Routine 05/15/2022 4:17 PM EST [place] TEAEC W/WO PATCH GRAFT COMMON FEMORAL 05/15/2022 2:38 PM EST HEPARIN ANTI XA Timed 05/15/2022 10:40 AM EST HEPARIN ANTI XA Timed 05/15/2022 4:03 AM EST CBC WITH AUTO DIFFERENTIAL Routine 05/15/2022 4:03 AM EST CBC AND DIFFERENTIAL Routine 05/15/2022 4:03 AM EST BASIC METABOLIC PANEL Routine 05/15/2022 4:03 AM EST TYPE AND SCREEN STAT 05/14/2022 7:49 PM EST COMPREHENSIVE METABOLIC PANEL Routine 05/14/2022 7:49 PM EST HEPARIN ANTI XA STAT 05/14/2022 7:05 PM EST APTT STAT 05/14/2022 7:05 PM EST PROTIME-INR STAT 05/14/2022 7:[address] ANGIOGRAM UPPER EXTREMITY RIGHT W WO CONTRAST STAT 05/14/2022 5:[address] ANGIOGRAM CHEST W WO CONTRAST STAT 05/14/2022 5:33 PM EST POCT CREATININE STAT 05/14/2022 5:00 PM EST POCT CREATININE STAT 05/14/2022 4:59 PM EST CBC WITH AUTO DIFFERENTIAL STAT 05/14/2022 4:53 PM EST CBC AND DIFFERENTIAL STAT 05/14/2022 4:53 PM EST COMPREHENSIVE METABOLIC PANEL STAT 05/14/2022 4:53 PM EST DUPLEX UPPER EXTREMITY ART/GRAFTS BILAT CAR - COR/ALBA/MAD STAT 05/14/2022 3:40 PM EST documented in this encounter Results * Heparin Anti-Xa (05/16/2022 2:14 PM EST) [facility] Heparin Anti-Xa (UFH) 0.45 0.30 - 0.70 IU/ml 05/16/2022 2:58 PM EST [facility] Blood Venipuncture / Unknown 05/16/2022 2:14 PM EST 05/16/2022 2:31 PM EST [facility] LAB BLOOD ORDERABLES Final Res ult [facility]
[address] [place] [address], [place] [phone] * Prepare RBC, 1 Units (05/16/2022 10:30 AM EST) Pathologist [facility] Product Code [id number] [facility] LABORATORY Unit Number [id number] [facility] A[facility] A [facility] BB LABORATORY UNIT RH POS [facility] LABORATORY Crossmatch Interpretation Compatible [facility] LABORATORY Dispense Status RE [facility] BB LABORATORY Blood Expiration Date [id number] [facility] LABORAT[facility] Blood Type Barcode [address] [facility] LABORATORY Other Topography unknown / Unknown 05/14/2022 8:10 PM EST Caty Mac BOX CUTTER BLOOD BANK PRODUCT ORDERABLE S Edited Result - Final Performing Organization Address City/[facility] [address]/ZIP Co de Phone Number [facility]
[address] [place] [address], * Heparin Anti-Xa (05/16/2022 1:34 AM EST) Heparin Anti-Xa (UFH) 0.30 0.30 - 0.70 IU/ml 05/16/2022 2:45 AM EST [facility] Blood Venipuncture / Unknown 05/16/2022 1:34 AM EST 05/16/2022 2:20 AM EST Cuba Fisher [facility] LAB BLOOD ORDERABLES Final Res ult Performing Organization Address City/[facility] [address]/[facility] Co de Phone Number [facility]
[address] [place] [address], * XR [place] OR Procedure (05/15/2022 4:17 PM EST) Nile Muse MD IMG DIAGNOSTIC IMAGING ORDERABL ES Final Result * Heparin Anti-Xa (05/15/2022 10:40 AM EST) Heparin Anti-Xa (UFH) 0.40 0.30 - 0.70 IU/ml 05/15/2022 11:44 AM EST [facility] Blood Venipuncture / Unknown 05/15/2022 10:40 AM EST 05/15/2022 11:19 AM EST us Roque Dyer [facility] LAB BLOOD ORDERABLES Final Res ult [facility]
[address] [place] [address], * (ABNORMAL) CBC Auto Differential (05/15/2022 4:03 AM EST) WBC 8.43 3.40 - 10.80 10*3/mm3 05/15/2022 4:19 AM EST [facility] RBC 3.54(L) 3.77 - 5.28 10*6/mm3 05/15/2022 4:19 AM EST [facility] Hemoglobin 10.8(L) 12.0 - 15.9 g/dL 05/15/2022 4:19 AM [facility] Hematocrit 33.2(L) 34.0 - 46.6 % 05/15/2022 4:19 AM [facility] MCV 93.8 79.0 - 97.0 fL 05/15/2022 4:19 AM EST [facility] MCH 30.5 26.6 - 33.0 pg 05/15/2022 4:19 AM [facility] MCHC 32.5 31.5 - 35.7 g/dL 05/15/2022 4:19 AM [facility] RDW 15.3 12.3 - 15.4 % 05/15/2022 4:19 AM EST [facility] RDW-SD 52.5 37.0 - 54.0 fl 05/15/2022 4:19 AM [facility] MPV 10.7 6.0 - 12.0 fL 05/15/2022 4:19 AM [facility] Platelets 190 140 - 450 10*3/mm3 05/15/2022 4:19 AM [facility] Neutrophil % 62.3 42.7 - 76.0 % 05/15/2022 4:19 AM [facility] Lymphocyte % 24.6 19.6 - 45.3 % 05/15/2022 4:19 AM [facility] Monocyte % 10.0 5.0 - 12.0 % 05/15/2022 4:19 AM [facility] Eosinophil % 1.8 0.3 - 6.2 % 05/15/2022 4:19 AM [facility] Basophil % 0.5 0.0 - 1.5 % 05/15/2022 4:19 AM [facility] Immature Grans % 0.8(H) 0.0 - 0.5 % 05/15/2022 4:19 AM [facility] Neutrophils, Absolute 5.26 1.70 - 7.00 10*3/mm3 05/15/2022 4:19 AM [facility] Lymphocytes, Absolute 2.07 0.70 - 3.10 10*3/mm3 05/15/2022 4:19 AM [facility] Monocytes, Absolute 0.84 0.10 - 0.90 10*3/mm3 05/15/2022 4:19 AM [facility] Eosinophils, Absolute 0.15 0.00 - 0.40 10*3/mm3 05/15/2022 4:19 AM [facility] Basophils, Absolute 0.04 0.00 - 0.20 10*3/mm3 05/15/2022 4:19 AM [facility] Immature Grans, Absolute 0.07(H) 0.00 - 0.05 10*3/mm3 05/15/2022 4:19 AM [facility] nRBC 0.0 0.0 - 0.2 /100 WBC 05/15/2022 4:19 AM [facility] Blood Line / Unknown 05/15/2022 4: 03 AM EST 05/15/2022 4:16 AM EST Ankit Mendoza PA-C LAB BLOOD ORDERABLES Fin al Result [facility]
[address] [place] [address], * Heparin Anti-Xa (05/15/2022 4:03 AM EST) Pathologist [facility] Heparin Anti-Xa (UFH) 0.38 0.30 - 0.70 IU/ml 05/15/2022 4:52 AM EST [facility] Blood Line / Unknown 05/15/2022 4: 03 AM EST 05/15/2022 4:16 AM EST Preston Manuel DO LAB BLOOD ORDERABLES Fin al Result [facility]
[address] [place] [address], * (ABNORMAL) Basic Metabolic Panel (05/15/2022 4:03 AM EST) Pathologist [facility] Glucose 129(H) 65 - 99 mg/dL 05/15/2022 4:41 AM EST [facility] BUN 18 8 - 23 mg/dL 05/15/2022 4:41 AM EST [facility] Creatinine 0.88 0.57 - 1.00 mg/dL 05/15/2022 4:41 AM EST [facility] Sodium 138 136 - 145 mmol/L 05/15/2022 4:41 AM EST [facility] Potassium 4.0 3.5 - 5.2 mmol/L 05/15/2022 4:41 AM EST [facility] Chloride 105 98 - 107 mmol/L 05/15/2022 4:41 AM EST [facility] CO2 23.0 22.0 - 29.0 mmol/L 05/15/2022 4:41 AM EST [facility] Calcium 9.2 8.6 - 10.5 mg/dL 05/15/2022 4:41 AM EST [facility] BUN/Creatinine Ratio 20.5 7.0 - 25.0 05/15/2022 4:41 AM EST [facility] Anion Gap 10.0 5.0 - 15.0 mmol/L 05/15/2022 4:41 AM EST [facility] eGFR 70.4 >60.0 mL/min/1. 73 05/15/2022 4:41 AM EST [facility] Comment:National Kidney Foun dation and [place] Society of Nephrology (ASN) Task Force recommended calculation based on the Chronic Kidney Disease Epidemiology Collaboration (CKD-EPI) equation refit without adjustment for race. Blood Line / Unknown 05/15/2022 4: 03 AM EST 05/15/2022 4:14 AM EST Narrative [facility] - 05/15/2022 4:41 AM EST GFR Normal >60 Chronic Kidney Disease <60 Kidney Failure <15 The GFR formula is only valid for adults with stable renal function between ages 18 and 70. Amanda Mcwilliams APRN LAB BLOOD ORDERABLES Final Result Performing Organization Address City/[facility] [address]/ZIP Co de Phone Number [facility]
[address] [place] [address], * Type & Screen (05/14/2022 7:49 PM EST) ABO Type A 05/14/2022 8:48 PM EST [facility] LABORAT[facility] RH type Positive 05/14/2022 8:48 PM EST [facility] Antibody Screen Negative 05/14/2022 8:48 PM EST [facility] T&S Expiration Date 05/17/2022 11:59:59 PM 05/14/2022 8:48 PM EST [facility] Blood Line / Unknown 05/14/2022 7: 49 PM EST 05/14/2022 8:10 PM EST Ankit Mendoza PA-C BLOOD BANK TEST ORDERABL ES Edited Result - Final Performing Organization Address City/[facility] [address]/ZIP Co de Phone Number [facility]
[address] [place] [address], * (ABNORMAL) Comprehensive Metabolic Panel (05/14/2022 7:49 PM EST) [facility] Glucose 128(H) 65 - 99 mg/dL 05/14/2022 8:26 PM [facility] BUN 18 8 - 23 mg/dL 05/14/2022 8:26 PM [facility] Creatinine 0.81 0.57 - 1.00 mg/dL 05/14/2022 8:26 PM [facility] Sodium 134(L) 136 - 145 mmol/L 05/14/2022 8:26 PM [facility] Potassium 3.9 3.5 - 5.2 mmol/L 05/14/2022 8:26 PM [facility] Chloride 100 98 - 107 mmol/L 05/14/2022 8:26 PM [facility] CO2 25.0 22.0 - 29.0 mmol/L 05/14/2022 8:26 PM [facility] Calcium 9.2 8.6 - 10.5 mg/dL 05/14/2022 8:26 PM [facility] Total Protein 6.3 6.0 - 8.5 g/dL 05/14/2022 8:26 PM [facility] Albumin 3.60 3.50 - 5.20 g/dL 05/14/2022 8:26 PM [facility] ALT (SGPT) 16 1 - 33 U/L 05/14/2022 8:26 PM [facility] AST (SGOT) 20 1 - 32 U/L 05/14/2022 8:26 PM [facility] Alkaline Phosphatase 73 39 - 117 U/L 05/14/2022 8:26 PM [facility] Total Bilirubin 0.5 0.0 - 1.2 mg/dL 05/14/2022 8:26 PM [facility] Globulin 2.7 gm/dL 05/14/2022 8:26 PM [facility] Comment:Calculated Result A/G Ratio 1.3 g/dL 05/14/2022 8:26 PM EST [facility] BUN/Creatinine Ratio 22.2 7.0 - 25.0 05/14/2022 8:26 PM EST [facility] Anion Gap 9.0 5.0 - 15.0 mmol/L 05/14/2022 8:26 PM EST [facility] eGFR 77.7 >60.0 mL/min/1. 73 05/14/2022 8:26 PM EST [facility] Comment:National Kidney Foun dation and [place] Society of Nephrology (ASN) Task Force recommended calculation based on the Chronic Kidney Disease Epidemiology Collaboration (CKD-EPI) equation refit without adjustment for race. Blood Line / Unknown 05/14/2022 7: 49 PM EST 05/14/2022 8:13 PM EST [facility] LABORATORY - 05/14/2022 8:26 PM EST GFR Normal >60 Chronic Kidney Disease <60 Kidney Failure <15 The GFR formula is only valid for adults with stable renal function between ages 18 and 70. [employer]-C LAB BLOOD ORDERABLES Fin al Result [facility]
[address] [place] [address], * (ABNORMAL) aPTT (05/14/2022 7:05 PM EST) PTT 25.2(L) 60.0 - 90.0 seconds 05/14/2022 8:09 PM EST [facility] Blood Line / Unknown 05/14/2022 7: 05 PM EST 05/14/2022 7:49 PM EST [facility] LABORATORY - 05/14/2022 8:09 PM EST PTT = The equivalent PTT values for the therapeutic range of heparin levels at 0.3 to 0.5 U/ml are 60 to 70 seconds. [employer] PA-C LAB BLOOD ORDERABLES Fin al Result [facility]
[address] [place] [address], * Protime-INR (05/14/2022 7:05 PM EST) Protime 13.3 11.4 - 14.4 Seconds 05/14/2022 8:08 PM EST [facility] INR 1.02 0.84 - 1.13 05/14/2022 8:08 PM EST [facility] Blood Line / Unknown 05/14/2022 7: 05 PM EST 05/14/2022 7:49 PM EST RUST Wally Mendoza PA-C LAB BLOOD ORDERABLES Fin al Result Performing Organization Address [facility] de Phone Number [facility]
[address] [place] [address], * (ABNORMAL) Heparin Anti-Xa (05/14/2022 7:05 PM EST) Heparin Anti-Xa (UFH) 0.10(L) 0.30 - 0.70 IU/ml 05/14/2022 8:09 PM EST [facility] Blood Line / Unknown 05/14/2022 7: 05 PM EST 05/14/2022 7:49 PM EST RUST W[employer]ILD [employer] PA-C LAB BLOOD ORDERABLES Fin al Result Performing Organization Address [facility] [address]/[facility] Co de Phone Number [facility]
[address] [place] [address], * CT Angiogram Chest (05/14/2022 5:33 PM EST) Anatomical Region Laterality Modality Chest, Vascular N/A Computed Tomogra phy 05/14/2022 6:21 PM EST Impressions 05/14/2022 6:45 PM EST There is nonopacification of the brachial artery [...] on 05/14/2022 6:45 PM by Edwardo Price. Narrative 05/14/2022 6:45 PM EST DATE OF EXAM: 05/14/2022 5:09 PM PROCEDURE: CT ANGIOGRAM CHEST-, CT ANGIOGRAM UPPER EXTREMITY RIGHT- INDICATIONS: cold painful R arm; s/p aortic stent 04/26 COMPARISON: 04/27/2022 TECHNIQUE: Contiguous axial imaging was obtained from the thoracic inlet through the upper abdomen and right upper extremity following the intravenous administration of 100 mL of Isovue 370. Reconstructed coronal and sagittal images were also obtained. Automated exposure control and iterative reconstruction methods were used. The radiation dose reduction device was turned on for each scan per the ALARA (As Low as Reasonably Achievable) protocol. FINDINGS: There is no pathologic axillary adenopathy or other worrisome body wall soft tissue finding in the chest. No acute findings are present in the partially characterized upper abdomen. There is no pleural or pericardial effusion. There is no pathologic mediastinal adenopathy. Redemonstrated postoperative changes from recent stenting of the right-sided aortic arch and proximal descending thoracic aorta, appearing similar to comparison without evidence of leak or persistent aneurysm. The pulmonary arteries are suboptimally opacified. The osseous structures demonstrate no acute findings. Evaluation of the lung ramos demonstrates no evidence of acute infectious process or suspicious pulmonary nodularity. Additional CT angiographic evaluation of the right upper extremity demonstrates good opacification of the subclavian artery, axillary and brachial artery along the proximal and distal humerus. Just beyond the ampulla fossa, the distal brachial artery demonstrates abrupt nonopacification, with nonvisualized radial and ulnar arteries, potentially somewhat due to technical factors but concerning for thrombotic occlusion. Procedure Note Edwardo Price MD - 05/14/2022 DATE OF EXAM: 05/14/2022 5:09 PM PROCEDURE: CT ANGIOGRAM CHEST-, CT ANGIOGRAM UPPER EXTREMITY RIGHT- INDICATIONS: cold painful R arm; s/p aortic stent 04/26 COMPARISON: 04/27/2022 TECHNIQUE: Contiguous axial imaging was obtained from the thoracic inlet through the upper abdomen and right upper extremity following the intravenous administration of 100 mL of Isovue 370. Reconstructed coronal and sagittal images were also obtained. Automated exposure control and iterative reconstruction methods were used. The radiation dose reduction device was turned on for each scan per the ALARA (As Low as Reasonably Achievable) protocol. FINDINGS: There is no pathologic axillary adenopathy or other worrisome body wall soft tissue finding in the chest. No acute findings are present in the partially characterized upper abdomen. There is no pleural or pericardial effusion. There is no pathologic mediastinal adenopathy. Redemonstrated postoperative changes from recent stenting of the right-sided aortic arch and proximal descending thoracic aorta, appearing similar to comparison without evidence of leak or persistent aneurysm. The pulmonary arteries are suboptimally opacified. The osseous structures demonstrate no acute findings. Evaluation of the lung ramos demonstrates no evidence of acute infectious process or suspicious pulmonary nodularity. Additional CT angiographic evaluation of the right upper extremity demonstrates good opacification of the subclavian artery, axillary and brachial artery along the proximal and distal humerus. Just beyond the ampulla fossa, the distal brachial artery demonstrates abrupt nonopacification, with nonvisualized radial and ulnar arteries, potentially somewhat due to technical factors but concerning for thrombotic occlusion. IMPRESSION: There is nonopacification of the brachial [...] on 05/14/2022 6:45 PM by Edwardo Price. us Ankit Mendoza PA-C IMMachelle CT ORDERABLES Final Result * CT Angiogram Upper Extremity Right (05/14/2022 5:33 PM EST) Anatomical Region Laterality Modality Vascular, Shoulder, Upper Ar m, Elbow, Forearm, Wrist, Hand Right Computed Tomography 05/14/2022 6:21 PM EST Impressions 05/14/2022 6:45 PM EST There is nonopacification of the brachial artery [...] on 05/14/2022 6:45 PM by Edwardo Price. Narrative 05/14/2022 6:45 PM EST DATE OF EXAM: 05/14/2022 5:09 PM PROCEDURE: CT ANGIOGRAM CHEST-, CT ANGIOGRAM UPPER EXTREMITY RIGHT- INDICATIONS: cold painful R arm; s/p aortic stent 04/26 COMPARISON: 04/27/2022 TECHNIQUE: Contiguous axial imaging was obtained from the thoracic inlet through the upper abdomen and right upper extremity following the intravenous administration of 100 mL of Isovue 370. Reconstructed coronal and sagittal images were also obtained. Automated exposure control and iterative reconstruction methods were used. The radiation dose reduction device was turned on for each scan per the ALARA (As Low as Reasonably Achievable) protocol. FINDINGS: There is no pathologic axillary adenopathy or other worrisome body wall soft tissue finding in the chest. No acute findings are present in the partially characterized upper abdomen. There is no pleural or pericardial effusion. There is no pathologic mediastinal adenopathy. Redemonstrated postoperative changes from recent stenting of the right-sided aortic arch and proximal descending thoracic aorta, appearing similar to comparison without evidence of leak or persistent aneurysm. The pulmonary arteries are suboptimally opacified. The osseous structures demonstrate no acute findings. Evaluation of the lung ramos demonstrates no evidence of acute infectious process or suspicious pulmonary nodularity. Additional CT angiographic evaluation of the right upper extremity demonstrates good opacification of the subclavian artery, axillary and brachial artery along the proximal and distal humerus. Just beyond the ampulla fossa, the distal brachial artery demonstrates abrupt nonopacification, with nonvisualized radial and ulnar arteries, potentially somewhat due to technical factors but concerning for thrombotic occlusion. Procedure Note Edwardo Price MD - 05/14/2022 DATE OF EXAM: 05/14/2022 5:09 PM PROCEDURE: CT ANGIOGRAM CHEST-, CT ANGIOGRAM UPPER EXTREMITY RIGHT- INDICATIONS: cold painful R arm; s/p aortic stent 04/26 COMPARISON: 04/27/2022 TECHNIQUE: Contiguous axial imaging was obtained from the thoracic inlet through the upper abdomen and right upper extremity following the intravenous administration of 100 mL of Isovue 370. Reconstructed coronal and sagittal images were also obtained. Automated exposure control and iterative reconstruction methods were used. The radiation dose reduction device was turned on for each scan per the ALARA (As Low as Reasonably Achievable) protocol. FINDINGS: There is no pathologic axillary adenopathy or other worrisome body wall soft tissue finding in the chest. No acute findings are present in the partially characterized upper abdomen. There is no pleural or pericardial effusion. There is no pathologic mediastinal adenopathy. Redemonstrated postoperative changes from recent stenting of the right-sided aortic arch and proximal descending thoracic aorta, appearing similar to comparison without evidence of leak or persistent aneurysm. The pulmonary arteries are suboptimally opacified. The osseous structures demonstrate no acute findings. Evaluation of the lung ramos demonstrates no evidence of acute infectious process or suspicious pulmonary nodularity. Additional CT angiographic evaluation of the right upper extremity demonstrates good opacification of the subclavian artery, axillary and brachial artery along the proximal and distal humerus. Just beyond the ampulla fossa, the distal brachial artery demonstrates abrupt nonopacification, with nonvisualized radial and ulnar arteries, potentially somewhat due to technical factors but concerning for thrombotic occlusion. IMPRESSION: There is nonopacification of the brachial [...] on 05/14/2022 6:45 PM by Edwardo Price. us Ankit Mendoza PA-C IM CT ORDERABLES Final Result * POCT, Creatinine (05/14/2022 5:00 PM EST) Creatinine 0.90 mg/dL [facility] Blood Preston Gillis Mar DO POINT OF CARE TEST ORDER JOSE DAVID Final Result [facility]
[address] [place] [address], * POC Creatinine (05/14/2022 4:59 PM EST) Creatinine 0.90 0.60 - 1.30 mg/dL 05/14/2022 5:16 PM EST [facility] Comment:Serial Number: [id number] 1Operator: [id number] Blood 05/14/2022 4:59 PM EST 05/14/2022 5:16 PM EST Prseton Carlin Manuel DO POINT OF CARE TEST ORDER JOSE DAVID Final Result Performing Organization Address City/[facility] [address]/ZIP Co de Phone Number [facility]
[address] [place] [address], * (ABNORMAL) CBC Auto Differential (05/14/2022 4:53 PM EST) WBC 9.74 3.40 - 10.80 10*3/mm3 05/14/2022 5:13 PM EST [facility] RBC 3.78 3.77 - 5.28 10*6/mm3 05/14/2022 5:13 PM EST [facility] Hemoglobin 11.7(L) 12.0 - 15.9 g/dL 05/14/2022 5:13 PM EST [facility] Hematocrit 36.4 34.0 - 46.6 % 05/14/2022 5:13 PM EST [facility] MCV 96.3 79.0 - 97.0 fL 05/14/2022 5:13 PM EST [facility] MCH 31.0 26.6 - 33.0 pg 05/14/2022 5:13 PM EST [facility] MCHC 32.1 31.5 - 35.7 g/dL 05/14/2022 5:13 PM [facility] RDW 15.2 12.3 - 15.4 % 05/14/2022 5:13 PM [facility] RDW-SD 54.1(H) 37.0 - 54.0 fl 05/14/2022 5:13 PM [facility] MPV 10.6 6.0 - 12.0 fL 05/14/2022 5:13 PM [facility] Platelets 214 140 - 450 10*3/mm3 05/14/2022 5:13 PM [facility] Neutrophil % 66.0 42.7 - 76.0 % 05/14/2022 5:13 PM [facility] Lymphocyte % 22.3 19.6 - 45.3 % 05/14/2022 5:13 PM [facility] Monocyte % 8.9 5.0 - 12.0 % 05/14/2022 5:13 PM [facility] Eosinophil % 1.5 0.3 - 6.2 % 05/14/2022 5:13 PM [facility] Basophil % 0.4 0.0 - 1.5 % 05/14/2022 5:13 PM [facility] Immature Grans % 0.9(H) 0.0 - 0.5 % 05/14/2022 5:13 PM [facility] Neutrophils, Absolute 6.42 1.70 - 7.00 10*3/mm3 05/14/2022 5:13 PM [facility] Lymphocytes, Absolute 2.17 0.70 - 3.10 10*3/mm3 05/14/2022 5:13 PM [facility] Monocytes, Absolute 0.87 0.10 - 0.90 10*3/mm3 05/14/2022 5:13 PM [facility] Eosinophils, Absolute 0.15 0.00 - 0.40 10*3/mm3 05/14/2022 5:13 PM [facility] Basophils, Absolute 0.04 0.00 - 0.20 10*3/mm3 05/14/2022 5:13 PM EST [facility] Immature Grans, Absolute 0.09(H) 0.00 - 0.05 10*3/mm3 05/14/2022 5:13 PM EST [facility] nRBC 0.0 0.0 - 0.2 /100 WBC 05/14/2022 5:13 PM EST [facility] Blood Venipuncture / Unknown 05/14/2022 4:53 PM EST 05/14/2022 5:07 PM EST Ankit Mendoza PA-C LAB BLOOD ORDERABLES Fin al Result [facility]
[address] [place] [address], * (ABNORMAL) Comprehensive Metabolic Panel (05/14/2022 4:53 PM EST) Glucose 119(H) 65 - 99 mg/dL 05/14/2022 5:33 PM EST [facility] BUN 19 8 - 23 mg/dL 05/14/2022 5:33 PM [facility] Creatinine 0.86 0.57 - 1.00 mg/dL 05/14/2022 5:33 PM [facility] Sodium 137 136 - 145 mmol/L 05/14/2022 5:33 PM [facility] Potassium 4.2 3.5 - 5.2 mmol/L 05/14/2022 5:33 PM [facility] Chloride 103 98 - 107 mmol/L 05/14/2022 5:33 PM [facility] CO2 25.0 22.0 - 29.0 mmol/L 05/14/2022 5:33 PM [facility] Calcium 9.6 8.6 - 10.5 mg/dL 05/14/2022 5:33 PM [facility] Total Protein 6.8 6.0 - 8.5 g/dL 05/14/2022 5:33 PM [facility] Albumin 4.00 3.50 - 5.20 g/dL 05/14/2022 5:33 PM EST [facility] ALT (SGPT) 17 1 - 33 U/L 05/14/2022 5:33 PM EST [facility] AST (SGOT) 15 1 - 32 U/L 05/14/2022 5:33 PM EST [facility] Alkaline Phosphatase 81 39 - 117 U/L 05/14/2022 5:33 PM [facility] Total Bilirubin 0.6 0.0 - 1.2 mg/dL 05/14/2022 5:33 PM EST [facility] Globulin 2.8 gm/dL 05/14/2022 5:33 PM [facility] Comment:Calculated Result A/G Ratio 1.4 g/dL 05/14/2022 5:33 PM EST [facility] BUN/Creatinine Ratio 22.1 7.0 - 25.0 05/14/2022 5:33 PM [facility] Anion Gap 9.0 5.0 - 15.0 mmol/L 05/14/2022 5:33 PM EST [facility] eGFR 72.3 >60.0 mL/min/1. 73 05/14/2022 5:33 PM EST [facility] Comment:National Kidney Foun dation and [place] [employer] Neph[employer] (ASN) Task Force recommended calculation based on the Chronic Kidney Disease Epidemiology Collaboration (CKD-EPI) equation refit without adjustment for race. Blood Venipuncture / Unknown 05/14/2022 4:53 PM EST 05/14/2022 5:07 PM EST Narrative [facility] - 05/14/2022 5:33 PM EST GFR Normal >60 Chronic Kidney Disease <60 Kidney Failure <15 The GFR formula is only valid for adults with stable renal function between ages 18 and 70. Ankit Mendoza PA-C LAB BLOOD ORDERABLES Fin al Result [facility]
[address] [place] [address], * DUPLEX UPPER EXTREMITY ART/GRAFTS BILAT CAR - COR/ALBA/MAD (05/14/2022 3:40 PM EST) Target HR (85%) 127 bpm Max. Pred. HR (100%) 149 bpm Prox SCLA PSV 102.0 cm/sec Prox SCLA PSV 160.0 cm/sec Rt. Subclavian Artery PSV 232.00 cm/s Rt. Subclavian Artery EDV 23.50 cm/s Rt. Axillary Artery PSV 41.40 cm/s Rt. Brachial Artery PSV 36.70 cm/s Rt. Radial Artery PSV 34.50 cm/s Rt. Ulnar Artery PSV 32.30 cm/s Upper arterial right arm brachial sys max 106 mmHg Upper arterial left arm brachial sys max 164 mmHg Upper arterial right arm radial sys max 95 mmHg Upper arterial left arm radial sys max 160 mmHg Upper arterial right arm ulnar sys max 100 mmHg Upper arterial left arm ulnar sys max 158 mmHg RIGHT WBI RATIO 0.94 LEFT WBI RATIO 0.98 Lt. Subclavian Artery PSV 133.00 cm/s Lt. Axillary Artery PSV 97.90 cm/s Lt. Brachial Artery PSV 111.00 cm/s Lt. Radial Artery PSV 131.00 cm/s Lt. Ulnar Artery PSV 109.00 cm/s Anatomical Region Laterality Modality Ultrasound Narrative 05/14/2022 7:35 PM EST ?Triphasic waveforms throughout the left upper extremity. ??No focal hemodynamically significant stenoses. ?There are elevated velocities in the proximal right subclavian with monophasic waveforms. ??Monophasic waveforms noted throughout the right upper extremity distally. ??No focal hemodynamically significant stenoses visualized. 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 Right Upper Arterial Findings Right subclavian artery: Exhibits monophasic flow. Right axillary artery: Exhibits monophasic flow. Right brachial artery: Exhibits monophasic flow. Right radial artery: Exhibits monophasic flow. Right ulnar artery: Exhibits monophasic flow. Monophasic flow in Prox Right Sub A. Possible to have a more proximal stenosis that was not visualized. Left Upper Arterial Findings Left subclavian artery: Exhibits triphasic flow. Left axillary artery: Exhibits triphasic flow. Left brachial artery: Exhibits triphasic flow. Left radial artery: Exhibits triphasic flow. Left ulnar artery: Exhibits triphasic flow. 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 Right arm pain Pain in soft tissues of limb Obstructive sleep apnea on CPAP Saccular aneurysm of the descending thoracic aorta (S/P TEVAR) Essential hypertension Unspecified essential hypertension documented in this encounter Admitting Diagnoses Diagnosis Brachial artery thrombosis documented in this encounter Administered Medications Inactive Administered Medications - up to 3 most recent administrations Medication Order MAR Action Action Date Dose Rate Site acetaminophen (TYLENOL) 160 MG/5ML solution 650 mg 650 mg, Oral, Every 4 Hours PRN, Mild Pain, Starting on Fri05/14/22 at 2038, Based on patient request - if ordered for moderate or severe pain, provider allows for administration of a medication prescribed for a lower pain scale. Do not exceed 4 grams of acetaminophen in a 24 hr period. Max dose of 2gm for AST/ALT greater than 120 units/L If given for fever, use fever parameter: fever greater than 100.4 ??F. If given for pain, use the following pain scale: Mild Pain = Pain Score of 1-3, CPOT 1-2 Moderate Pain = Pain Score of 4-6, CPOT 3-4 Severe Pain = Pain Score of 7-10, CPOT 5-8 acetaminophen (TYLENOL) suppository 650 mg 650 mg, Rectal, Every 4 Hours PRN, Mild Pain, Starting on Fri05/14/22 at 2038, Based on patient request - if ordered for moderate or severe pain, provider allows for administration of a medication prescribed for a lower pain scale. Do not exceed 4 grams of acetaminophen in a 24 hr period. Max dose of 2gm for AST/ALT greater than 120 units/L If given for fever, use fever parameter: fever greater than 100.4 ??F. If given for pain, use the following pain scale: Mild Pain = Pain Score of 1-3, CPOT 1-2 Moderate Pain = Pain Score of 4-6, CPOT 3-4 Severe Pain = Pain Score of 7-10, CPOT 5-8 acetaminophen (TYLENOL) tablet 650 mg 650 mg, Oral, Every 4 Hours PRN, Mild Pain, Starting on Fri05/14/22 at 203, Based on patient request - if ordered for moderate or severe pain, provider allows for administration of a medication prescribed for a lower pain scale. Do not exceed 4 grams of acetaminophen in a 24 hr period. Max dose of 2gm for AST/ALT greater than 120 units/L If given for fever, use fever parameter: fever greater than 100.4 ??F. If given for pain, use the following pain scale: Mild Pain = Pain Score of 1-3, CPOT 1-2 Moderate Pain = Pain Score of 4-6, CPOT 3-4 Severe Pain = Pain Score of 7-10, CPOT 5-8 apixaban (ELIQUIS) tablet 10 mg 10 mg, Oral, Every 12 Hours Scheduled, First dose on Fri05/16/22 at 1630, For 7 days, Tablet may be crushed and suspended in 60 mL of water or D5W and immediately delivered via NG tube., Indications: DVT/PE (active thrombosis)Indications:DVT/PE (active thrombosis) Given 05/16/2022 4:33 PM EST 10 mg apixaban (ELIQUIS) tablet 5 mg 5 mg, Oral, Every 12 Hours Scheduled, First dose on Fri05/23/22 at 2100, Tablet may be crushed and suspended in 60 mL of water or D5W and immediately delivered via NG tube., Indications: DVT/PE (active thrombosis)Indications:DVT/PE (active thrombosis) aspirin EC tablet 81 mg 81 mg, Oral, Daily, First dose on Fri05/15/22 at 0900, Herbal/drug interaction: Avoid use with ginkgo biloba. Do not crush or chew. Based on patient request - if ordered for moderate or severe pain, provider allows for administration of a medication prescribed for a lower pain scale. Do not exceed 4 grams of aspirin in a 24 hr period. If given for pain, use the following pain scale: Mild Pain = Pain Score of 1-3, CPOT 1-2 Moderate Pain = Pain Score of 4-6, CPOT 3-4 Severe Pain = Pain Score of 7-10, CPOT 5-8 Given 05/16/2022 9:00 AM EST 81 mg bisoprolol (ZEBeta) tablet 5 mg 5 mg, Oral, Every 24 Hours Scheduled, First dose on Fri05/15/22 at 0900, HOLD THIS MEDICATION for SBP < 110, HR < 60 Caution: Look alike/sound alike drug alert Given 05/16/2022 9:00 AM EST 5 mg Given 05/15/2022 8:43 AM EST 5 mg famotidine (PEPCID) tablet 20 mg 20 mg, Oral, Once, On Fri05/15/22 at 1323, For 1 dose Given 05/15/2022 1:22 PM EST 20 mg fentaNYL citrate (PF) (SUBLIMAZE) 50 mcg/mL injection - ADS Override Pull Starting on Fri05/15/22 at 1643, For 1 dose, Created by cabinet override If given for pain, use the following pain scale: Mild Pain = Pain Score of 1-3, CPOT 1-2 Moderate Pain = Pain Score of 4-6, CPOT 3-4 Severe Pain = Pain Score of 7-10, CPOT 5-8 fentaNYL citrate (PF) (SUBLIMAZE) injection 50 mcg 50 mcg, Intravenous, Every 5 Minutes PRN, Moderate Pain, Starting on Fri05/15/22 at 1640, For 4 doses, Maximum total dose of fentanyl is 200 mcg. If given for pain, use the following pain scale: Mild Pain = Pain Score of 1-3, CPOT 1-2 Moderate Pain = Pain Score of 4-6, CPOT 3-4 Severe Pain = Pain Score of 7-10, CPOT 5-8 Given 05/15/2022 4:44 PM EST 50 mcg heparin (porcine) injection 4,000 Units 4,000 Units, Intravenous, Once, On Fri05/14/22 at 1905, For 1 dose, Maximum Dose 4000 units, Indications: Cardiac or Other Not VTEIndications:Cardiac or Other Not VTE Given 05/14/2022 7:50 PM EST 4,000 Units heparin 38852 units/250 mL (100 units/mL) in 0.45 % NaCl infusion 10.5 Units/kg/hr ? 95.3 kg (10.0065 mL/hr, rounded to 10 mL/hr), Intravenous, Titrated, Starting on Fri05/14/22 at 1905, Pharmacy dosing - Cardiac or Other NOT VTE - Boluses (with initial bolus) New Bag 05/15/2022 7:51 PM EST 10.5 Units/kg/hr 10 mL/hr New Bag 05/14/2022 7:52 PM EST 10.5 Units/kg/hr 10 mL/h r HYDROmorphone (DILAUDID) 1 MG/ML injection - ADS Override Pull Starting on Fri05/15/22 at 1707, For 1 dose, Created by cabinet override {BJ} Caution: Look alike/sound alike drug alert If given for pain, use the following pain scale: Mild Pain = Pain Score of 1-3, CPOT 1-2 Moderate Pain = Pain Score of 4-6, CPOT 3-4 Severe Pain = Pain Score of 7-10, CPOT 5-8 HYDROmorphone (DILAUDID) injection 0.5 mg 0.5 mg, Intravenous, Every 10 Minutes PRN, Severe Pain, Starting on Fri05/15/22 at 1640, For 4 doses, Maximum total dose of hydromorphone is 2 mg. If given for pain, use the following pain scale: Mild Pain = Pain Score of 1-3, CPOT 1-2 Moderate Pain = Pain Score of 4-6, CPOT 3-4 Severe Pain = Pain Score of 7-10, CPOT 5-8 Given 05/15/2022 5:37 PM EST 0.5 mg Given 05/15/2022 5:10 PM EST 0.5 mg iopamidol (ISOVUE-370) 76 % injection 100 mL 100 mL, Intravenous, Once in Imaging, On Fri05/14/22 at 1727, For 1 dose Given 05/14/2022 5:25 PM EST 100 mL lactobacillus acidophilus (RISAQUAD) capsule 1 capsule 1 capsule, Oral, Daily, First dose on Fri05/15/22 at 0900 Given 05/16/2022 9:00 AM EST 1 capsule niCARdipine (CARDENE) 25mg in 250mL NS infusion 5-15 mg/hr (50-150 mL/hr), Intravenous, Titrated, Starting on Fri05/15/22 at 1558, Initiate infusion at 5 mg/hr and titrate up or down by 2.5 - 5 mg/hr every 15 minutes to use the lowest dose possible to maintain SBP less than 180 mm Hg. Maximum dose = 15 mg/hr. Hold infusion for SBP less than 100 mm Hg. Contact provider if unable to maintain SBP Less Than 180 mm Hg on maximum dose. Once SBP target achieved obtain vitals a minimum of every 30 minutes. Administer as a slow continuous infusion via central line or through a large peripheral vein. Peripheral venous irritation may be minimized by changing the site of infusion every 12 hours. Nicardipine 0.2mg/mL concentration must be infused via central line ONLY. Caution: Look alike/sound alike drug alert New Bag 05/15/2022 4:35 PM EST 5 mg/hr 50 mL/hr niCARdipine (CARDENE) 25mg in 250mL NS infusion 5-15 mg/hr (50-150 mL/hr), Intravenous, Titrated, Starting on Fri05/15/22 at 1652, Initiate infusion at 5 mg/hr and titrate up or down by 2.5 - 5 mg/hr every 15 minutes to use the lowest dose possible to maintain SBP less than 180 mm Hg. Maximum dose = 15 mg/hr. Hold infusion for SBP less than 100 mm Hg. Contact provider if unable to maintain SBP less than 180 mm Hg on maximum dose. Once SBP target achieved obtain vitals a minimum of every 30 minutes. Administer as a slow continuous infusion via central line or through a large peripheral vein. Peripheral venous irritation may be minimized by changing the site of infusion every 12 hours. Nicardipine 0.2mg/mL concentration must be infused via central line ONLY Caution: Look alike/sound alike drug alert New Bag 05/16/2022 3:47 AM EST 5 mg/hr 50 mL/hr New Bag 05/15/2022 10:30 PM EST 5 mg/hr 50 mL/hr Rate/Dose Change 05/15/2022 10:15 PM EST 5 mg/hr 50 mL/ hr oxybutynin (DITROPAN) tablet 5 mg 5 mg, Oral, Daily, First dose on Fri05/15/22 at 0900 Given 05/16/2022 9:00 AM EST 5 mg rosuvastatin (CRESTOR) tablet 10 mg 10 mg, Oral, Daily, First dose on Fri05/15/22 at 0900, Avoid grapefruit juice. Given 05/16/2022 9:00 AM EST 10 mg scopolamine patch 1 mg/72 hr 1 patch, Transdermal, Administer over 72 Hours, Every 72 Hours, First dose on Fri05/15/22 at 1400, {BKC} Medication Applied 05/15/2022 1:58 PM EST 1 patch Behind Left Ear sodium chloride 0.9 % flush 10 mL 10 mL, Intravenous, Every 12 Hours Scheduled, First dose on Fri05/14/22 at 2130 Given 05/16/2022 9:00 AM EST 10 mL Given 05/14/2022 9:50 PM EST 10 mL sodium chloride 0.9 % infusion 50 mL/hr, Intravenous, Continuous, Starting on Fri05/14/22 at 2130 Rate/Dose Verify 05/16/2022 5:18 AM EST 50 mL/hr 50 mL/hr New Bag 05/16/2022 2:39 AM EST 50 mL/hr 50 mL/hr New Bag 05/15/2022 2:53 PM EST vancomycin 1500 mg/500 mL 0.9% NS IVPB ([facility]) 1,500 mg (rounded from 1,429.5 mg = 15 mg/kg ? 95.3 kg), Intravenous, Once, On Fri05/15/22 at 2300, For 1 dose, Complete all doses in 24 hours., Justification for use: Documented IgE-Mediated Penicillin or Cephalosporin Allergy, Indications: Surgical ProphylaxisIndications:Surgical Prophylaxis New 05/15/2022 11:33 PM EST 1,500 mg documented in this encounter Active and Recently Administered Medications Times are shown in EST. Scheduled Medication Order 05/14/2022 05/15/2022 05/16/2022 apixaban (ELIQUIS) tablet 10 mg(Linked Group 1) 10 mg, Oral, Every 12 Hours Scheduled, First dose on Fri05/16/22 at 1630, For 7 days, Tablet may be crushed and suspended in 60 mL of water or D5W and immediately delivered via NG tube., Indications: DVT/PE (active thrombosis) 1633 (Given - Provider: Mirna Shay RN) apixaban (ELIQUIS) tablet 5 mg(Linked Group 1) 5 mg, Oral, Every 12 Hours Scheduled, First dose on Fri05/23/22 at 2100, Tablet may be crushed and suspended in 60 mL of water or D5W and immediately delivered via NG tube., Indications: DVT/PE (active thrombosis) aspirin EC tablet 81 mg 81 mg, Oral, Daily, First dose on Fri05/15/22 at 0900, Herbal/drug interaction: Avoid use with ginkgo biloba. Do not crush or chew. Based on patient request - if ordered for moderate or severe pain, provider allows for administration of a medication prescribed for a lower pain scale. Do not exceed 4 grams of aspirin in a 24 hr period. If given for pain, use the following pain scale: Mild Pain = Pain Score of 1-3, CPOT 1-2 Moderate Pain = Pain Score of 4-6, CPOT 3-4 Severe Pain = Pain Score of 7-10, CPOT 5-8 0952 (Hold - Provider: Georgie Mcmanus RN - Reason: NPO) 0900 (Given - Provider: Mirna Shay, CRISTOBAL) bisoprolol (ZEBeta) tablet 5 mg 5 mg, Oral, Every 24 Hours Scheduled, First dose on Fri05/15/22 at 0900, HOLD THIS MEDICATION for SBP < 110, HR < 60 Caution: Look alike/sound alike drug alert 0843 (Given - Provider: Georgie Mcmanus RN) 0900 (Given - Provider: Mirna Shay RN) ceFAZolin in dextrose (ANCEF) IVPB solution 2 g (COMPLETED) 2 g, Intravenous, Administer over 30 Minutes, Once, On Fri05/15/22 at 1451, For 1 dose, Caution: Look alike/sound alike drug alert, Indications: Surgical Prophylaxis 1510 (Given - Provider: Isabel Vaz CRNA) famotidine (PEPCID) tablet 20 mg (COMPLETED) 20 mg, Oral, Once, On Fri05/15/22 at 1323, For 1 dose 1322 (Given - Provider: Melissa Stewart RN) heparin (porcine) injection 4,000 Units (COMPLETED) 4,000 Units, Intravenous, Once, On Fri05/14/22 at 1905, For 1 dose, Maximum Dose 4000 units, Indications: Cardiac or Other Not VTE 1950 (Given - Provider: Huber Jenkins RN) iopamidol (ISOVUE-370) 76 % injection 100 mL (COMPLETED) 100 mL, Intravenous, Once in Imaging, On Fri05/14/22 at 1727, For 1 dose 1725 (Given - Provider: Christina Smith) lactobacillus acidophilus (RISAQUAD) capsule 1 capsule 1 capsule, Oral, Daily, First dose on Fri05/15/22 at 0900 0952 (Hold - Provider: Georgie Mcmanus RN - Reason: NPO) 0900 (Given - Provider: Mirna Shay RN) oxybutynin (DITROPAN) tablet 5 mg 5 mg, Oral, Daily, First dose on Fri05/15/22 at 0900 0952 (Hold - Provider: Georgie Mcmanus RN - Reason: NPO) 0900 (Given - Provider: Mirna Shay RN) rosuvastatin (CRESTOR) tablet 10 mg 10 mg, Oral, Daily, First dose on Fri05/15/22 at 0900, Avoid grapefruit juice. 0953 (Hold - Provider: Georgie Mcmanus RN - Reason: NPO) 0900 (Given - Provider: Mirna Shay RN) scopolamine patch 1 mg/72 hr (CANCELED) 1 patch, Transdermal, Administer over 72 Hours, Every 72 Hours, First dose on Fri05/15/22 at 1400, {BKC} 1358 (Medication Applied - Provider: Ritika Shay RN)1746 (Due: Medication Removed - Provider: IDANIA Bryson - Comment: Time automatically adjusted from order being discontinued) sodium chloride 0.9 % flush 10 mL 10 mL, Intravenous, Every 12 Hours Scheduled, First dose on Fri05/14/22 at 2130 2150 (Given - Provider: Zhanna Irby RN) 0953 (Not Given - Provider: Georgie Mcmanus RN - Reason: Given from running infusion)2204 (Canceled Entry - Provider: Jailyn Steward RN - Comment: INFUSING) 0900 (Given - Provider: Mirna Shay RN) vancomycin 1500 mg/500 mL 0.9% NS IVPB ([facility]) (COMPLETED) 1,500 mg (rounded from 1,429.5 mg = 15 mg/kg ? 95.3 kg), Intravenous, Once, On Fri05/15/22 at 2300, For 1 dose, Complete all doses in 24 hours., Justification for use: Documented IgE-Mediated Penicillin or Cephalosporin Allergy, Indications: Surgical Prophylaxis 2333 (New Bag - Provider: Jailyn Steward RN) Continuous Medication Order 05/14/2022 05/15/2022 05/16/2022 heparin 02053 units/250 mL (100 units/mL) in 0.45 % NaCl infusion (CANCELED) 10.5 Units/kg/hr ? 95.3 kg (10.0065 mL/hr, rounded to 10 mL/hr), Intravenous, Titrated, Starting on Fri05/14/22 at 1905, Pharmacy dosing - Cardiac or Other NOT VTE - Boluses (with initial bolus) 1951 (New Bag - Provider: Huber Jenkins RN) 1950 (New Bag - Provider: Sabra Long RN) lactated ringers infusion (CANCELED) 9 mL/hr, Intravenous, Continuous, Starting on Fri05/15/22 at 1323, May switch to NS IV at KVO if renal / if indicated 1453 (New Bag - Provider: Isabel Vaz, ASHLYN - Comment: IVF to gravity) niCARdipine (CARDENE) 25mg in 250mL NS infusion (CANCELED) 5-15 mg/hr (50-150 mL/hr), Intravenous, Titrated, Starting on Fri05/15/22 at 1558, Initiate infusion at 5 mg/hr and titrate up or down by 2.5 - 5 mg/hr every 15 minutes to use the lowest dose possible to maintain SBP less than 180 mm Hg. Maximum dose = 15 mg/hr. Hold infusion for SBP less than 100 mm Hg. Contact provider if unable to maintain SBP Less Than 180 mm Hg on maximum dose. Once SBP target achieved obtain vitals a minimum of every 30 minutes. Administer as a slow continuous infusion via central line or through a large peripheral vein. Peripheral venous irritation may be minimized by changing the site of infusion every 12 hours. Nicardipine 0.2mg/mL concentration must be infused via central line ONLY. Caution: Look alike/sound alike drug alert 1635 (New Bag - Provider: Paco Macdonald, CRISTOBAL) niCARdipine (CARDENE) 25mg in 250mL NS infusion 5-15 mg/hr (50-150 mL/hr), Intravenous, Titrated, Starting on Fri05/15/22 at 1652, Initiate infusion at 5 mg/hr and titrate up or down by 2.5 - 5 mg/hr every 15 minutes to use the lowest dose possible to maintain SBP less than 180 mm Hg. Maximum dose = 15 mg/hr. Hold infusion for SBP less than 100 mm Hg. Contact provider if unable to maintain SBP less than 180 mm Hg on maximum dose. Once SBP target achieved obtain vitals a minimum of every 30 minutes. Administer as a slow continuous infusion via central line or through a large peripheral vein. Peripheral venous irritation may be minimized by changing the site of infusion every 12 hours. Nicardipine 0.2mg/mL concentration must be infused via central line ONLY Caution: Look alike/sound alike drug alert 1914 (New Bag - Provider: Jailyn Steward, CRISTOBAL)1956 (Canceled Entry - Provider: Jailyn Steward, RN)1957 (Rate/Dose Change - Provider: Jailyn Steward RN)2214 (Rate/Dose Change - Provider: Jailyn Steward RN)223 (New Bag - Provider: Jailyn Steward, CRISTOBAL) 0347 (New Bag - Provider: Jailyn Steward RN) sodium chloride 0.9 % infusion 50 mL/hr, Intravenous, Continuous, Starting on Fri05/14/22 at 2130 2150 (New Bag - Provider: Zhanna Irby RN) 1452 (Paused - Provider: Isabel Vaz CRNA - Comment: Switch to gravity)1453 (New Bag - Provider: Isabel Vaz CRNA - Comment: IVF to gravity; 200ml IVF remaining in IV bag) 0239 (New Bag - Provider: Jailyn Steward, CRISTOBAL)0518 (Rate/Dose Verify - Provider: Jailyn Steward RN) PRN Medication Order 05/14/2022 05/15/2022 05/16/2022 acetaminophen (TYLENOL) 160 MG/5ML solution 650 mg(Linked Group 2) 650 mg, Oral, Every 4 Hours PRN, Mild Pain, Starting on Fri05/14/22 at 2038, Based on patient request - if ordered for moderate or severe pain, provider allows for administration of a medication prescribed for a lower pain scale. Do not exceed 4 grams of acetaminophen in a 24 hr period. Max dose of 2gm for AST/ALT greater than 120 units/L If given for fever, use fever parameter: fever greater than 100.4 ??F. If given for pain, use the following pain scale: Mild Pain = Pain Score of 1-3, CPOT 1-2 Moderate Pain = Pain Score of 4-6, CPOT 3-4 Severe Pain = Pain Score of 7-10, CPOT 5-8 acetaminophen (TYLENOL) suppository 650 mg(Linked Group 2) 650 mg, Rectal, Every 4 Hours PRN, Mild Pain, Starting on Fri05/14/22 at 2039, Based on patient request - if ordered for moderate or severe pain, provider allows for administration of a medication prescribed for a lower pain scale. Do not exceed 4 grams of acetaminophen in a 24 hr period. Max dose of 2gm for AST/ALT greater than 120 units/L If given for fever, use fever parameter: fever greater than 100.4 ??F. If given for pain, use the following pain scale: Mild Pain = Pain Score of 1-3, CPOT 1-2 Moderate Pain = Pain Score of 4-6, CPOT 3-4 Severe Pain = Pain Score of 7-10, CPOT 5-8 acetaminophen (TYLENOL) tablet 650 mg(Linked Group 2) 650 mg, Oral, Every 4 Hours PRN, Mild Pain, Starting on Fri05/14/22 at 203, Based on patient request - if ordered for moderate or severe pain, provider allows for administration of a medication prescribed for a lower pain scale. Do not exceed 4 grams of acetaminophen in a 24 hr period. Max dose of 2gm for AST/ALT greater than 120 units/L If given for fever, use fever parameter: fever greater than 100.4 ??F. If given for pain, use the following pain scale: Mild Pain = Pain Score of 1-3, CPOT 1-2 Moderate Pain = Pain Score of 4-6, CPOT 3-4 Severe Pain = Pain Score of 7-10, CPOT 5-8 fentaNYL citrate (PF) (SUBLIMAZE) injection 50 mcg (CANCELED) 50 mcg, Intravenous, Every 5 Minutes PRN, Moderate Pain, Starting on Fri05/15/22 at 1640, For 4 doses, Maximum total dose of fentanyl is 200 mcg. If given for pain, use the following pain scale: Mild Pain = Pain Score of 1-3, CPOT 1-2 Moderate Pain = Pain Score of 4-6, CPOT 3-4 Severe Pain = Pain Score of 7-10, CPOT 5-8 1644 (Given - Provider: Paco Macdonald RN) HYDROmorphone (DILAUDID) injection 0.5 mg (CANCELED) 0.5 mg, Intravenous, Every 10 Minutes PRN, Severe Pain, Starting on Fri05/15/22 at 1640, For 4 doses, Maximum total dose of hydromorphone is 2 mg. If given for pain, use the following pain scale: Mild Pain = Pain Score of 1-3, CPOT 1-2 Moderate Pain = Pain Score of 4-6, CPOT 3-4 Severe Pain = Pain Score of 7-10, CPOT 5-8 1710 (Given - Provider: Paco Macdonald RN)1737 (Given - Provider: Paco Macdonald RN) iopamidol (ISOVUE-300) 61 % injection (CANCELED) As Needed, Starting on Fri05/15/22 at 1618 1618 (Given - Provider: Nile Muse MD) sodium chloride 0.9 % flush 10 mL 10 mL, Intravenous, As Needed, Line Care, Starting on Fri05/14/22 at 2039 sodium chloride 0.9 % infusion 40 mL 40 mL, Intravenous, at 100 mL/hr, As Needed, Line Care, Starting on Fri05/14/22 at 2038, Following administration of an IV intermittent medication, flush line with 40mL NS at 100mL/hr. sodium chloride 1,000 mL with heparin (porcine) 10,000 Units mixture (CANCELED) As Needed, Starting on Fri05/15/22 at 1524 1524 (Given - Provider: Nile Muse MD) Linked Groups Order Group 1: apixaban (ELIQUIS) tablet 10 mgJump to med 10 mg, Oral, Every 12 Hours Scheduled, First dose on Fri05/16/22 at 1630, For 7 days, Tablet may be crushed and suspended in 60 mL of water or D5W and immediately delivered via NG tube., Indications: DVT/PE (active thrombosis) Followed by apixaban (ELIQUIS) tablet 5 mgJump to med 5 mg, Oral, Every 12 Hours Scheduled, First dose on Fri05/23/22 at 2100, Tablet may be crushed and suspended in 60 mL of water or D5W and immediately delivered via NG tube., Indications: DVT/PE (active thrombosis) Group 2: acetaminophen (TYLENOL) tablet 650 mgJump to med 650 mg, Oral, Every 4 Hours PRN, Mild Pain, Starting on Fri05/14/22 at 2038, Based on patient request - if ordered for moderate or severe pain, provider allows for administration of a medication prescribed for a lower pain scale. Do not exceed 4 grams of acetaminophen in a 24 hr period. Max dose of 2gm for AST/ALT greater than 120 units/L If given for fever, use fever parameter: fever greater than 100.4 ??F. If given for pain, use the following pain scale: Mild Pain = Pain Score of 1-3, CPOT 1-2 Moderate Pain = Pain Score of 4-6, CPOT 3-4 Severe Pain = Pain Score of 7-10, CPOT 5-8 Or acetaminophen (TYLENOL) 160 MG/5ML solution 650 mgJump to med 650 mg, Oral, Every 4 Hours PRN, Mild Pain, Starting on Fri05/14/22 at 2038, Based on patient request - if ordered for moderate or severe pain, provider allows for administration of a medication prescribed for a lower pain scale. Do not exceed 4 grams of acetaminophen in a 24 hr period. Max dose of 2gm for AST/ALT greater than 120 units/L If given for fever, use fever parameter: fever greater than 100.4 ??F. If given for pain, use the following pain scale: Mild Pain = Pain Score of 1-3, CPOT 1-2 Moderate Pain = Pain Score of 4-6, CPOT 3-4 Severe Pain = Pain Score of 7-10, CPOT 5-8 Or acetaminophen (TYLENOL) suppository 650 mgJump to med 650 mg, Rectal, Every 4 Hours PRN, Mild Pain, Starting on Fri05/14/22 at 2038, Based on patient request - if ordered for moderate or severe pain, provider allows for administration of a medication prescribed for a lower pain scale. Do not exceed 4 grams of acetaminophen in a 24 hr period. Max dose of 2gm for AST/ALT greater than 120 units/L If given for fever, use fever parameter: fever greater than 100.4 ??F. If given for pain, use the following pain scale: Mild Pain = Pain Score of 1-3, CPOT 1-2 Moderate Pain = Pain Score of 4-6, CPOT 3-4 Severe Pain = Pain Score of 7-10, CPOT 5-8 documented in this encounter Care Teams [employer] Relationship Specialty Start Date End Date Talon Barragan MD [address] [facility] [address] [facility] [address] [place] [id number] PCP - General Family Medicine 03/20/22 documented as of this encounter
--- OUTSIDE RECORDS SUMMARY | 2024-05-04 22:47 | XMS_ITS | Encounter Summary ---
Author Organization [facility] ystem Address [address] [place] [address] Care Team Providers Care Web Offset Press Feeder Name Role Phone Talon Barragan MD Primary Care Provider Encounter Details Date Type Department Care Team (Late st Contact Info) Description 07/02/2022 Telephone [facility] CARDIOTHORACIC SURGERY [address] [place] [address] Nile Muse MD Social History [...] or training? Not on file Preferred Language Serbian 04/22/2022 Comments No Sex and Gender Information Value Date Recorded Sex Assigned at Not on file Legal Sex Female 1:29 PM EDT Gender Identity Not on file Sexual Orientation Not on file documented as of this encounter Miscellaneous Notes * Telephone Encounter - Pilar Macias MA - 07/02/2022 10:35 AM EST Patient called asking if she should still be taking Aspirin 81 mg daily -- she was unsure after hermost recent procedure 04/2022. According to Dr. Muse when he saw patient 05/2022 she should take Aspirin 81 mg indefinitely - pt informed of this documented in this encounter Plan of Treatment Upcoming Encounters Date Type Department Care Team (Late st Contact Info) Description 07/29/2024 10:45 AM EST Office Visit [facility] CARDIOLOGY [address] [facility] [address] [place] [phone] Goyo Khan MD [address] [facility] [address] [place] [id number] 09/02/2024 11:30 AM EDT Office Visit [facility] CARDIOTHORACIC SURGERY [address] [facility] [address] [place] [phone] Dee Jaimes APRN [address] [facility] [address] [place] [address] documented as of this encounter Visit Diagnoses Not on filedocumented in this encounter Care Teams Web [employer] Feeder Relationship Specialty Start Date End Date Talon Barragan MD [address] [facility] [address] [place] [id number] PCP - General Family Medicine 03/20/22 documented as of this encounter
--- OUTSIDE RECORDS SUMMARY | 2024-05-04 22:47 | XMS_ITS | Encounter Summary ---
Author Organization [facility] ystem Address [address] [place] [address] Care Team Providers Care [employer] Name Role Phone Talon Barragan MD Primary Care Provider Encounter Details Date Type Department Care Team (Late st Contact Info) Description 05/16/2022 Readmission Management [facility] [address] [place] [phone] Garett Carranza RN Social History Tobacco Use Types Packs/Day [...] or training? Not on file Preferred Language Syrian 04/22/2022 Comments No Sex and Gender Information Value Date Recorded Sex Assigned at Not on file Legal Sex Female 1:29 PM EDT Gender Identity Not on file Sexual Orientation Not on file documented as of this encounter Miscellaneous Notes * Outreach Note - Garett Carranza, RN - 05/16/2022 10:13 PM EST Prep Survey Flowsheet Row Responses [facility] patient discharged from? [place] Is LACE score < 7 ? No Eligibility Readm Mgmt Discharge diagnosis thrombectomy of right brachial artery and forearm arteries were performed with no complication Does the patient have one of the following disease processes/diagnoses(primary or secondary)? General Surgery Does the patient have Home health ordered? No Is there a DME ordered? No Prep survey completed? Yes GARETT Flowers - Registered Nurse documented in this encounter Plan of Treatment Upcoming Encounters Date Type Department Care Team (Late st Contact Info) Description 07/29/2024 10:45 AM EST Office Visit [facility] CARDIOLOGY [address] [facility] [address] [place] [phone] Goyo Khan MD [address] [facility] [address] [place] [address] 09/02/2024 11:30 AM EDT Office Visit [facility] CARDIOTHORACIC SURGERY [address] [facility] [address] [place] [address] Dee Jaimes APRN [address] [facility] [address] [place] [address] documented as of this encounter Visit Diagnoses Not on filedocumented in this encounter Care Teams [employer] Relationship Specialty Start Date End Date Talon Barragan MD [address] [place] [facility] [address] [place] [id number] PCP - General Family Medicine 03/20/22 documented as of this encounter
--- OUTSIDE RECORDS SUMMARY | 2024-05-04 22:48 | XMS_ITS | Encounter Summary ---
[facility] Address [address] [place] [address] Care Team Providers Care Stunt Man Name Role Phone Talon Barragan MD Primary Care Provider Reason for Visit * Auth/Cert (Routine) Specialty Diagnoses / Procedures Referred By Heather santos Referred To Contact Diagnoses Thoracic aortic aneurysm without rupture, unspecified part Thoracic aortic aneurysm without rupture, unspecified part [I71.20] Procedures NM ENDOVASC TAA REINCL SUBCL NM BYPASS GRAFT OTHR,CAROT-SUBCL THORACIC AORTAGRAM, POSSIBLE TEVAR, POSSIBLE CAROTID SUBCLAVIAN BYPASS Referral ID Status Reason Start Date Expiration Date Visits Re quested Visits Authorized [id number] 1 1 Encounter Details Date Type Department Care Team (Late st Contact Info) Description 04/26/2022 12:21 PM EST - 04/26/2022 3:16 PM EST Surgery [facility] OR [address] [place] [address] Nile Muse MD TEVAR Social History Tobacco Use Types Packs/Day Years Used Date Smoking Tobacco: Never Smokeless Tobacco: Never Alcohol Use Standard Drinks/Week Comments Yes 2 (1 standard drink = 0.6 oz pur e alcohol) social Education Answer Date Recorded Help with school or training? Not on file Preferred Language Senegalese 04/22/2022 Comments No Sex and Gender Information Value Date Recorded Sex Assigned at Not on file Legal Sex Female 1:29 PM EDT Gender Identity Not on file Sexual Orientation Not on file documented as of this encounter Last Filed Vital Signs Vital Sign Reading Time Taken Comments Blood Pressure 101/56 04/26/2022 3:15 PM EST Pulse 60 04/26/2022 3:15 PM EST Temperature 36.3 ??C (97.4 ??F) 04/26/2022 2:31 PM ES T Respiratory Rate 15 04/26/2022 3:15 PM EST Oxygen Saturation 96% 04/26/2022 3:15 PM EST Inhaled Oxygen Concentration - - Weight 97.1 kg (214 lb 1.1 oz) 04/26/2022 8:42 A M EST Height 167.6 cm (5' 5.98 ) 04/26/2022 8:42 AM ES T Body Mass Index 34.57 04/26/2022 8:42 AM EST documented in this encounter Discharge Summaries * Talon Brink PA-C - 04/28/2022 10:41 AM EST CTS Discharge Summary Patient Care Team: Talon Barragan MD as PCP - General (Family Medicine) Santo Salinas MD as Consulting Physician (Cardiology) Date of Admission: 04/26/2022 6:19 AM Date of Discharge: 04/28/2022 Discharge Diagnosis Past Medical History: Diagnosis Date ??? Abnormal [...] related to sinusitis- data deficit ??? 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 Due to presumed enlargement and saccular morphology, endovascular repair was indicated. I discussed with the patient and her the risk, benefits, and alternatives to the procedure including riskof bleeding, infection, permanent disability including paralysis, heart attack, stroke, permanent disability, and . The patient demonstrated good understanding and signed written consent. ?? Hospital Course Patient is a 72 y.o. female underwent1. Ultrasound- and fluoroscopy-guided left common femoral artery needle access 2. Placement of 28 x 100 mm Dyess conformable tag thoracic stent graft (TEVAR) at proximal descending thoracic aorta 3. Thoracic aortogram 4. Percutaneous closure devices Perclose Pro-glide x2 at left common femoral arteriotomy 5. EEG monitoring 6. Left iliofemoral arteriogram Postop course she had a CT angiogram of the chest abdomen pelvis and 3D reconstruction secondary toa large drop in her hemoglobin as per Dr. Curtis's note otherwise patient looked most vertigo fordischarge CT angios showedPostoperative changes are seen from proximal descending thoracic aortic repair of a saccular aneurysm involving the right-sided aorta. There is no convincing acute hemorrhage within the chest, abdomen or pelvis. Other findings are stable. She was able be discharged on her second postop day procedures Performed Procedure(s): TEVAR Consults: Consults No orders found from 03/28/2022 to 04/27/2022. Discharge Medications Discharge Medications Changes to Medications Instructions Start Date aspirin [...] as: NASONEX 2 sprays, Nasal, As Needed potassium chloride 20 MEQ CR tablet Commonly known as: K-DUR,KLOR-CON 20 mEq, Oral, Daily PROBIOTIC PO 1 tablet, Oral, Daily, OTC Vitamin D3 50 MCG (2000 UT) tablet 2,000 Units, Oral, Daily, OTC Healthy heart Discharge Diet: Activity at Discharge: Do not drive while taking narcotics Follow-up Appointments Future Appointments Date Time Provider Department Center 05/30/2022 11:30 AM Nile Muse MD [facility] 05/30/2022 12:45 PM Case, Baylee Martino., DO [facility] 07/12/2022 10:00 AM Keesha Claire, [employer] [facility] Talon Weinberg. NA Brink 05/19/22 11:09 EST Cosigned by Nile Muse MD at 05/19/2022 5:57 PM EST Associated attestation - Nile Muse MD - 05/19/2022 5:57 PM EST I have reviewed this documentation and agree. * Riddhi Stewart, PT - 04/28/2022 9:50 AM EST Images from the original note were not included. Patient Name: Juany Alarcon : 1950 Today's Date: 04/28/2022 Admit Date: 04/26/2022 Visit Dx: ICD-10-CM ICD-9-CM 1. Thoracic aortic aneurysm without rupture, unspecified part I71.20 441.2 Patient Active Problem List Diagnosis ??? Hypertensive [...] descending thoracic aorta (S/P TEVAR) ??? Anemia Past Medical History: Diagnosis Date ??? Abnormal [...] Past Surgical History: Procedure Laterality Date ??? SECTION 1990 ??? CHOLECYSTECTOMY 05/2004 ??? COLONOSCOPY ??? COMPLETE MASTECTOMY W/ SENTINEL NODE BIOPSY Left ??? KNEE SURGERY Right replacement ??? ORIF HIP FRACTURE Right spring ??? TONSILLECTOMY N/A ??? TOTAL KNEE ARTHROPLASTY Left 2018 left General Information Row Name 04/28/22 1012 Physical Therapy Time and Intention Document Type discharge evaluation/summary -AY Mode of Treatment physical therapy -AY Row Name 04/28/22 1012 General Information Patient Profile Reviewed yes -AY Prior Level of Function independent:;community mobility;gait;transfer;all household mobility;ADL's -AY Existing Precautions/Restrictions -- L groin incision -AY Row Name 04/28/22 1012 Living Environment People in Home spouse -AY Row Name 04/28/22 1012 Home Main Entrance Number of Stairs, Main Entrance one -AY Stair Railings, Main Entrance none -AY Row Name 04/28/22 1012 Stairs Within Home, Primary Number of Stairs, Within Home, Primary none -AY Row Name 04/28/22 1012 Cognition Orientation Status (Cognition) oriented x 3 -AY Row Name 04/28/22 1012 Safety Issues, Functional Mobility Impairments Affecting Function (Mobility) pain -AY User Casas (r) = Recorded By, (t) = Taken By, (c) = Cosigned By Initials Name Provider Type Riddhi Gibbons, PT Physical Therapist Mobility Row Name 04/28/22 1013 Sit-Stand Transfer Sit-Stand [place] (Transfers) independent -AY Row Name 04/28/22 1013 Gait/Stairs (Locomotion) [place] Level (Gait) independent -AY Distance in Feet (Gait) 500 -AY Deviations/Abnormal Patterns (Gait) antalgic -AY Left Sided Gait Deviations weight shift ability decreased -AY [place] Level (Stairs) supervision -AY Number of Steps (Stairs) 6 -AY Ascending Technique (Stairs) [id number] -AY Descending Technique (Stairs) [id number] -AY Comment, (Gait/Stairs) no LOB noted with mobility. Cueing required for stair navigation sequencing.Gait distance limited by fatigue and increased incisional pain. -AY User Casas (r) = Recorded By, (t) = Taken By, (c) = Cosigned By Initials Name Provider Type Riddhi Gibbons PT Physical Therapist Obj/Interventions Row Name 04/28/22 1014 Range of Motion Comprehensive General Range of Motion bilateral lower extremity ROM WFL -AY Row Name 04/28/22 1014 Strength Comprehensive (MMT) General Manual Muscle Testing (MMT) Assessment lower extremity strength deficits identified -AY Comment, General Manual Muscle Testing (MMT) Assessment LLE grossly 4/5 limited by pain. LLE grossly 5/5. -AY Row Name 04/28/22 1014 Balance Balance Assessment sitting static balance;sitting dynamic balance;sit to stand dynamic balance;standing static balance;standing dynamic balance -AY Static Sitting Balance independent -AY Dynamic Sitting Balance independent -AY Position, Sitting Balance unsupported;sitting in chair -AY Sit to Stand Dynamic Balance standby assist -AY Static Standing Balance independent -AY Dynamic Standing Balance standby assist -AY Position/Device Used, Standing Balance unsupported -AY Row Name 04/28/22 1014 Sensory Assessment (Somatosensory) Sensory Assessment (Somatosensory) LE sensation intact -AY User Casas (r) = Recorded By, (t) = Taken By, (c) = Cosigned By Initials Name Provider Type Riddhi Gibbons, PT Physical Therapist Goals/Plan No documentation. Clinical Impression Row Name 04/28/22 1019 Pain Pretreatment Pain Rating 2/10 -AY Posttreatment Pain Rating 10 -AY Pain Location - Side/Orientation Left -AY Pain Location incisional -AY Pain Location - groin -AY Pain Intervention(s) Ambulation/increased activity;Repositioned;Elevated -AY Additional Documentation Pain Scale: Numbers Pre/Post-Treatment (Group) -AY Row Name 04/28/22 1019 Plan of Care Review Plan of Care Reviewed With patient;spouse -AY Progress no change -AY Outcome Evaluation PT initial eval completed. Pt limited by mild incisional pain. Pt ambulated 500ft indep and navigated 6 steps with unilateral handrail and SBA. No deficits requiring skilled IP PT at this time. PT will d/c orders. Please re-consult if needed. d/c rec for home with assist. -AY Row Name 04/28/22 1019 Therapy Assessment/Plan (PT) Criteria for Skilled Interventions Met (PT) no;no problems identified which require skilled intervention -AY Therapy Frequency (PT) evaluation only -AY Row Name 04/28/22 1019 Vital Signs Pre Systolic BP Rehab -- VSS -AY O2 Delivery Pre Treatment room air -AY O2 Delivery Intra Treatment room air -AY O2 Delivery Post Treatment room air -AY Pre Patient Position Sitting -AY Intra Patient Position Standing -AY Post Patient Position Sitting -AY Row Name 04/28/22 1019 Positioning and Restraints Pre-Treatment Position sitting in chair/recliner -AY Post Treatment Position chair -AY In Chair notified nsg;reclined;sitting;call light within reach;encouraged to call for assist;with family/caregiver;manny kidd RN deferred chair alarm -AY User Casas (r) = Recorded By, (t) = Taken By, (c) = Cosigned By Initials Name Provider Type Riddhi Gibbons PT Physical Therapist Outcome Measures Row Name 04/28/22 1142 How much help from another person do you currently need... Turning from your back to your side while in flat bed without using bedrails? 4 -AY Moving from lying on back to sitting on the side of a flat bed without bedrails? 4 -AY Moving to and from a bed to a chair (including a wheelchair)? 4 -AY Standing up from a chair using your arms (e.g., wheelchair, bedside chair)? 4 -AY Climbing 3-5 steps with a railing? 3 -AY To walk in hospital room? 4 -AY AM-PAC 6 Clicks Score (PT) 23 -AY Highest level of mobility 7 --> Walked 25 feet or more -AY Row Name 04/28/22 1142 Functional Assessment Outcome Measure Options AM-PAC 6 Clicks Basic Mobility (PT) -AY User Casas (r) = Recorded By, (t) = Taken By, (c) = Cosigned By Initials Name Provider Type Riddhi Gibbons PT Physical Therapist Physical Therapy Education Title: PT OT SHIRRER Therapies (Resolved) Topic: Physical Therapy (Resolved) Point: Mobility training (Resolved) Learning Progress Summary Patient Acceptance, E,TB, VU,NR by AY at 04/28/2022 1143 Point: Home exercise program (Resolved) Learning Progress Summary Patient Acceptance, E,TB, VU,NR by AY at 04/28/2022 1143 Point: Body mechanics (Resolved) Learning Progress Summary Patient Acceptance, E,TB, VU,NR by AY at 04/28/2022 1143 Point: Precautions (Resolved) Learning Progress Summary Patient Acceptance, E,TB, VU,NR by AY at 04/28/2022 1143 User Casas Initials Effective Dates Name Provider Type Discipline AY 04/04/20 - Riddhi Stewart PT Physical Therapist PT PT Recommendation and Plan Plan of Care Reviewed With: patient, spouse Progress: no change Outcome Evaluation: PT initial eval completed. Pt limited by mild incisional pain. Pt ambulated 500ft indep and navigated 6 steps with unilateral handrail and SBA. No deficits requiring skilled IP PTat this time. PT will d/c orders. Please re-consult if needed. d/c rec for home with assist. Time Calculation: PT Charges Row Name 04/28/22 1143 Time Calculation Start Time 0950 -AY PT Received On 04/28/22 -AY Untimed Charges PT Eval/Re-eval Minutes 46 -AY Total Minutes Untimed Charges Total Minutes 46 -AY Total Minutes 46 -AY User Casas (r) = Recorded By, (t) = Taken By, (c) = Cosigned By Initials Name Provider Type AY Young, Riddhi, PT Physical Therapist Therapy Charges for Today Code Description Service Date Service Provider Modifiers Qty [id number] HC PT EVAL LOW COMPLEXITY 4 04/28/2022 Riddhi Stewart, PT GP 1 PT G-Codes Outcome Measure Options: AM-PAC 6 Clicks Basic Mobility (PT) AM-PAC 6 Clicks Score (PT): 23 PT Discharge Summary Anticipated Discharge Disposition (PT): home with assist Riddhi Stewart PT 04/28/2022 documented in this encounter Medications at Time of Discharge Cholecalciferol (VITAMIN D3) 2000 units tablet Take 1 tablet by mouth Daily. OTC cyanocobalamin (VITAMIN B-12) 500 MCG tablet Take 1 tablet by mouth Daily. OTC Probiotic Product (PROBIOTIC PO) Take 1 tablet by mouth Daily. OTC aspirin 81 MG EC tablet Take 1 tablet by mouth Daily. 90 tablet 3 06/29/2021 07/12/2022 bisoprolol-hydro chlorothiazide (ZIAC) 5-6.25 MG per tablet Take 1 tablet by mouth Daily. 90 tablet 3 06/29/2021 07/12/2022 meloxicam (MOBIC) 7.5 MG tablet Take 7.5 mg by mouth Daily. 09/27/2021 05/16/2022 metoclopramide (REGLAN) 5 MG tablet Take 1 tablet by mouth Daily. 05/27/2020 11/07/2023 mometasone (NASONEX) 50 MCG/ACT nasal spray 2 sprays into the nostril(s) as directed by provider As Needed. 09/03/2023 oxybutynin (DITROPAN) 5 MG tablet Take 5 mg by mouth Daily. 05/15/2022 potassium chloride (K-DUR,KLOR-CON) 20 MEQ CR tablet Take 1 tablet by mouth Daily. 90 tablet 3 06/29/2021 07/17/2022 rosuvastatin (CRESTOR) 10 MG tablet Take 1 tablet by mouth Daily. 90 tablet 3 06/29/2021 07/12/2022 documented as of this encounter Progress Notes * Nile Muse MD - 04/28/2022 10:41 AM EST Enter Query Response Below Query Response: Congenital right aortic arch If applicable, please update the problem list. Patient: Juany Alarcon : 1950 Account: [id number] Admit Date: 04/26/2022 How to Respond to this query: a. Click New Note b. Answer query within the yellow box. c. Update the Problem List, if applicable. Dr. Muse, Patient presents for elective evaluation of saccular thoracic aortic aneurysm of the thoracic aorta. Per the 04/26/22 operative note found to have a right sided aortic arch . After further review, can you please clarify, right sided aortic arch? -Congenital -Not congenital -Other-specify -Unable to determine By submitting this query, we are merely seeking further clarification of documentation to accurately reflect all conditions that you are monitoring, evaluating, treating or that extend the hospitalization or utilize additional resources of care. Please utilize your independent clinical judgment when addressing the question(s) above. This query and your response, once completed, will be entered into the legal medical record. Sincerely, Amelia Lewis RN, [email or web address] Clinical Documentation Integrity Program * Talon Brink PA-C - 04/28/2022 8:43 AM EST 2 Days Post-Op LOS: 2 days Patient Care Team: Talon Barragan MD as PCP - General (Family Medicine) Santo Salinas MD as Consulting Physician (Cardiology) Chief complaint: Subjective Denies chest pain, denies shortness of breath Objective Vital Signs Temp: [97.9 ??F (36.6 ??C)-98.2 ??F (36.8 ??C)] 98 ??F (36.7 ??C) Heart Rate: [52-85] 56 Resp: [14-22] 14 BP: (99-158)/(55-100) 122/62 Physical Exam: General Appearance: alert, appears stated age and cooperative Lungs: clear bilaterally Heart: Regular rate and rhythm Skin: Incision c/d/i Results Results from last 7 days Lab Units 04/27/22 0847 04/27/22 0338 WBC 10*3/mm3 -- 10.37 HEMOGLOBIN g/dL 10.7* 10.0* HEMATOCRIT % 32.6* 31.0* PLATELETS 10*3/mm3 -- 181 Results from last 7 days Lab Units 04/27/22 0338 SODIUM mmol/L 136 POTASSIUM mmol/L 4.4 CHLORIDE mmol/L 106 CO2 mmol/L 20.0* BUN mg/dL 21 CREATININE mg/dL 0.79 GLUCOSE mg/dL 177* CALCIUM mg/dL 8.8 Assessment 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 * Rodolfo Mann MD - 04/27/2022 8:03 AM EST CTS Progress Note LOS: 1 day Patient Care Team: Talon Barragan MD as PCP - General (Family Medicine) Santo Salinas MD as Consulting Physician (Cardiology) Chief Complaint: Thoracic aortic aneurysm without rupture Vital Signs: Temp: [97.2 ??F (36.2 ??C)-98.8 ??F (37.1 ??C)] 98.8 ??F (37.1 ??C) Heart Rate: [52-92] 55 Resp: [14-20] 20 BP: (89-169)/(56-119) 110/90 Arterial Line BP: (105-142)/(41-82) 110/60 Physical Exam: No neurologic deficit groin sites are satisfactory Results: Results from last 7 days Lab Units 04/27/22 0338 WBC 10*3/mm3 10.37 HEMOGLOBIN g/dL 10.0* HEMATOCRIT % 31.0* PLATELETS 10*3/mm3 181 Results from last 7 days Lab Units 04/27/22 0338 SODIUM mmol/L 136 POTASSIUM mmol/L 4.4 CHLORIDE mmol/L 106 CO2 mmol/L 20.0* BUN mg/dL 21 CREATININE mg/dL 0.79 GLUCOSE mg/dL 177* CALCIUM mg/dL 8.8 Imaging Results (Last 24 Hours) Procedure Component Value Units Date/Time XR [place] Procedure [[id number]] Resulted: 04/26/22 141 Updated: 04/26/22 141 Assessment 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 Curtis's note. Otherwise patient looks almost ready for discharge home. Will obtain CT scan today because of hemoglobin drop. It is unlikely she lost 3 units of blood during this brief procedure Plan CT angiogram chest, abdomen, pelvis with 3D recon today Please note that portions of this note were completed with a voice recognition program. Efforts were made to edit the dictations, but occasionally words are mistranscribed. Rodolfo Mann MD 04/27/22 08:03 EST * Brian Curtis MD - 04/27/2022 7:56 AM EST Intensive Care Follow-up LOS: 1 day Ms. Juany Alarcon, 72 y.o. female is followed for: Glycemic, Electrolyte, Respiratory, and Medical management Subjective - Interval History Ms. Juany Alarcon, 72 y.o. female is followed for: Glycemic, Electrolyte, Respiratory, and Medical management ?? Juany Alarcon is a 72 y.o. female with PMH significant for HTN, migraines, DIOGENES on CPAP, dyslipidemia, and dysphagia who presents to [facility] on 04/26/2022 for an elective TEVAR with Dr. Muse. She was referred to Dr. Muse for evaluation of a saccular thoracic aortic aneurysm after patient experienced worsening dysphagia and hoarseness that failed treatment with thyroid assessment and dilation ofthe esophagus. The patient had a CT scan on 04/22/2022 that showed a right-sided aortic arch with alarge, saccular aneurysm that appears to be compressing the trachea/esophagus near the level of thecarina. After discussing risks/benefits, Ms. Alarcon elected to undergo a TEVAR by Dr. Muse. ?? Interval history No problems overnight Oxygenating adequately on room air Not requiring any vasopressor support The patient's relevant past medical, surgical and social history were reviewed and updated in [facility] as appropriate. Objective Infusions: lactated ringers, 9 mL/hr, Last Rate: 9 mL/hr (04/26/22 1241) niCARdipine, 5-15 mg/hr, Last Rate: Stopped (04/26/22 1836) Medications: aspirin, 81 mg, Oral, Daily bisoprolol-hydroCHLOROthiazide (ZIAC) 5-6.25 mg combo tab, , Oral, Q24H insulin lispro, 0-7 Units, Subcutaneous, TID AC lactobacillus acidophilus, 1 capsule, Oral, Nightly lidocaine, 1 patch, Transdermal, Q24H meloxicam, 7.5 mg, Oral, Daily metoclopramide, 5 mg, Oral, Daily oxybutynin, 5 mg, Oral, Daily potassium chloride, 20 mEq, Oral, Daily rosuvastatin, 10 mg, Oral, Daily cyanocobalamin, 500 mcg, Oral, Daily Intake/Output 04/26/22 0700 - 04/27/22 0659 Intake (ml) 1600 Output (ml) 300 Net (ml) 1300 Last Weight 97.1 kg (214 lb 1.1 oz) Vital Sign Min/Max for last 24 hours Temp Min: 97.2 ??F (36.2 ??C) Max: 98.8 ??F (37.1 ??C) BP Min: 89/59 Max: 169/119 Pulse Min: 52 Max: 92 Resp Min: 14 Max: 20 SpO2 Min: 92 % Max: 100 % No data recorded Physical Exam: GENERAL: Awake, no distress HEENT: No adenopathy or thyromegaly LUNGS: Clear without wheezes or crackles HEART: Regular rate and rhythm without murmurs GI: Soft, nontender EXTREMITIES: Left groin site looks good without hematoma or bleeding NEURO/PSYCH: Awake, alert. Appropriate. No deficits Results from last 7 days Lab Units 04/27/22 0338 04/22/22 1533 WBC 10*3/mm3 10.37 9.74 HEMOGLOBIN g/dL 10.0* 13.1 PLATELETS 10*3/mm3 181 229 Results from last 7 days Lab Units 04/27/22 0338 04/22/22 1533 SODIUM mmol/L 136 143 POTASSIUM mmol/L 4.4 4.1 CO2 mmol/L 20.0* 28.0 BUN mg/dL 21 22 CREATININE mg/dL 0.79 1.00 MAGNESIUM mg/dL 1.8 -- PHOSPHORUS mg/dL 2.7 -- GLUCOSE mg/dL 177* 168* Estimated Creatinine Clearance: 76.7 mL/min (by C-G formula based on SCr of 0.79 mg/dL). Results from last 7 days Lab Units 04/22/22 1533 HEMOGLOBIN A1C % 6.40* Impression Active Hospital Problems Diagnosis ??? 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 Anemia ??? Obstructive sleep apnea on CPAP Plan Hemodynamically stable Hemoglobin has dropped 3 mg percent overnight Will check another H&H this morning CT scan of the abdomen pelvis if felt indicated by Dr. Muse Plan of care and goals reviewed with Multidisciplinary Team and Antibiotic Stewardship rounds I discussed the patient's findings and my recommendations with patient and nursing staff High level of risk due to: illness with threat to life or bodily function. Steven Curtis MD Pulmonary and Critical Care Medicine * Brian Curtis MD - 04/26/2022 6:23 PM EST Intensive Care Follow-up LOS: 0 days Ms. Juany Alarcon, 72 y.o. female is followed for: Glycemic, Electrolyte, Respiratory, and Medical management Juany Alarcon is a 72 y.o. female with PMH significant for HTN, migraines, DIOGENES on CPAP, dyslipidemia, and dysphagia who presents to [facility] on 04/26/2022 for an elective TEVAR with Dr. Muse. She was referred to Dr. Muse for evaluation of a saccular thoracic aortic aneurysm after patient experienced worsening dysphagia and hoarseness that failed treatment with thyroid assessment and dilation ofthe esophagus. The patient had a CT scan on 04/22/2022 that showed a right-sided aortic arch with alarge, saccular aneurysm that appears to be compressing the trachea/esophagus near the level of thecarina. After discussing risks/benefits, Ms. Alarcon elected to undergo a TEVAR by Dr. Muse. Time spent: 10 minutes Electronically signed by Nimisha Verdin APRN, 04/26/22, 8:14 AM EST. Subjective - Interval History She is seen in the ICU post-operatively. Patient is seen in the intensive care unit awake and alert Complaining of minimal pain at her left groin site Not requiring vasopressor support Oxygenating adequately on room air The patient's relevant past medical, surgical and social history were reviewed and updated in [facility] as appropriate. Objective Infusions: lactated ringers, 9 mL/hr, Last Rate: 9 mL/hr (04/26/22 1241) niCARdipine, 5-15 mg/hr, Last Rate: Stopped (04/26/22 183) sodium chloride, 100 mL/hr, Last Rate: 100 mL/hr (04/26/22 183) Medications: [START ON 04/27/2022] aspirin, 81 mg, Oral, Daily [START ON 04/27/2022] bisoprolol-hydroCHLOROthiazide (ZIAC) 5-6.25 mg combo tab, , Oral, Q24H ceFAZolin, 2 g, Intravenous, Q8H lactobacillus acidophilus, 1 capsule, Oral, Nightly meloxicam, 7.5 mg, Oral, Daily [START ON 04/27/2022] metoclopramide, 5 mg, Oral, Daily [START ON 04/27/2022] oxybutynin, 5 mg, Oral, Daily [START ON 04/27/2022] potassium chloride, 20 mEq, Oral, Daily [START ON 04/27/2022] rosuvastatin, 10 mg, Oral, Daily [START ON 04/27/2022] cyanocobalamin, 500 mcg, Oral, Daily Intake/Output 04/26/22 0700 - 04/27/22 0659 Intake (ml) 900 Output (ml) -- Net (ml) 900 Last Weight 97.1 kg (214 lb 1.1 oz) Vital Sign Min/Max for last 24 hours Temp Min: 97.2 ??F (36.2 ??C) Max: 98.7 ??F (37.1 ??C) BP Min: 89/59 Max: 169/119 Pulse Min: 52 Max: 70 Resp Min: 15 Max: 18 SpO2 Min: 92 % Max: 100 % Flow (L/min) Min: 2 Max: 2 Physical Exam: GENERAL: Awake, no distress HEENT: No adenopathy or thyromegaly LUNGS: Clear without wheezes or rhonchi HEART: Regular rate and rhythm without murmurs GI: Soft, nontender EXTREMITIES: Left groin site without hematoma or bleeding. Palpable peripheral pulses in lower extremities. Radial art line site looks okay NEURO/PSYCH: Awake, alert, appropriate Results from last 7 days Lab Units 04/22/22 1533 WBC 10*3/mm3 9.74 HEMOGLOBIN g/dL 13.1 PLATELETS 10*3/mm3 229 Results from last 7 days Lab Units 04/22/22 1533 SODIUM mmol/L 143 POTASSIUM mmol/L 4.1 CO2 mmol/L 28.0 BUN mg/dL 22 CREATININE mg/dL 1.00 GLUCOSE mg/dL 168* Estimated Creatinine Clearance: 60.6 mL/min (by C-G formula based on SCr of 1 mg/dL). Results from last 7 days Lab Units 04/22/22 1533 HEMOGLOBIN A1C % 6.40* No results found for: LACTATE Images: Preoperative chest x-ray reveals no effusions, infiltrates, or consolidation I reviewed the patient's results and images. Impression Active Hospital Problems Diagnosis ??? 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 Obstructive sleep apnea on CPAP Plan Monitor in the intensive care unit Cardene if needed for hypertension Follow-up electrolytes and replace as necessary Follow blood sugars and address with sliding scale insulin Continue home CPAP I discussed the patient's findings and my recommendations with patient and family . Steven Curtis MD Pulmonary and Critical Care Medicine documented in this encounter H&P Notes * Diana Mart APRN - 04/26/2022 9:14 AM EST [facility] Pre-op Full history and physical note from office is attached. BP (!) 169/119 (BP Location: Right arm, Patient Position: Lying) Pulse 68 Temp 97.2 ??F (36.2 ??C) (Temporal) Resp 18 Ht 167.6 cm (65.98 ) Wt 97.1 kg (214 lb 1.1 oz) SpO2 98% BMI 34.57 kg/m?? Immunizations: Influenza: 2021 Pneumococcal: UTD Tetanus: UTD Covid x3: 2020 LAB Results: Lab Results Component Value Date WBC 9.74 04/22/2022 HGB 13.1 04/22/2022 HCT 41.0 04/22/2022 MCV 95.6 04/22/2022 PLT 229 04/22/2022 NEUTROABS 5.97 04/22/2022 GLUCOSE 168 (H) 04/22/2022 BUN 22 04/22/2022 CREATININE 1.00 04/22/2022 EGFRIFNONA 57 (L) 06/20/2020 EGFRIFAFRI 66 06/20/2020 NA 143 04/22/2022 K 4.1 04/22/2022 CL 104 04/22/2022 CO2 28.0 04/22/2022 CALCIUM 10.0 04/22/2022 ALBUMIN 4.1 06/20/2020 AST 20 06/20/2020 ALT 20 06/20/2020 BILITOT 0.5 06/20/2020 PTT 27.6 04/22/2022 INR 0.98 04/22/2022 04/19/22 CT abd: FINDINGS: VASCULAR FINDINGS: There is a right-sided aortic arch. The descending aorta is normal in caliber it measures 3 cm at the aortic root, 3 cm in maximal diameter within the ascending aorta. There is a saccular diverticulum or aneurysm projecting medially along the descending thoracic aorta measuring 1.5 x 1.8 cm. The remainder of the descending thoracic aorta is normal in caliber. The proximal great vessels are normal in appearance. The celiac and SMA are widely patent. Single bilateral renal arteries are widely patent. The PREETI is widely patent. Bilateral common, internal, and external iliac arteries are tortuous but without stenosis. The infrainguinal vasculature is unremarkable. NONVASCULAR FINDINGS: Subcentimeter thyroid nodules are identified. No axillary or mediastinal adenopathy is identified. There is a small hiatal hernia. Status post mastectomy with left breast implant. This guarding in the lung bases. Low-density lesion within the liver is suggestive of hepatic cyst. Spleen is unremarkable. The pancreas is normal. Bilateral adrenal glands are normal. There is thinning of the bilateral renal cortices. The uterus is unremarkable. The bladder is decompressed. Colon is unremarkable. Small bowel is unremarkable. No inguinal, pelvic sidewall, retroperitoneal, or mesenteric adenopathy is identified. No aggressive appearing lytic or sclerotic bone lesions are identified. IMPRESSION: 1. Right-sided aortic arch 2. 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 However, there is normal branch anatomy for a right-sided aortic arch. Cancer Staging (if applicable) Cancer Patient: __ yes __no __unknown__N/A; If yes, clinical stage T:__ N:__M:__, stage group or __N/A Impression: Thoracic aortic aneurysm without rupture Plan: THORACIC AORTAGRAM, POSSIBLE TEVAR, POSSIBLE CAROTID SUBCLAVIAN BYPASS Diana Mart APRN 04/26/2022 09:14 EST Cosigned by Nile Muse MD at 04/26/2022 9:43 AM EST Associated attestation - Nile Muse MD - 04/26/2022 9:43 AM EST I interviewed and examined the patient in the presence of her . All questions were answered satisfactorily. Nile Muse M.D., R.P.V.I. Cardiothoracic and Vascular Surgeon [facility] Source Note - Nile Muse MD - 04/11/2022 10:30 AM EST 04/11/2022 Patient Information Juany Amado Agnes [address] [place] [address] 1950 'PCP/Referring Physician' Talon Barragan MD [phone] Santo Salinas MD [phone] Chief Complaint Patient presents with ??? Consult Reactor Technician referred for a descending aortic aneurysm,complains of shortness of breath. History of Present Illness: 71-year-old woman with history of hypertension, migraines, back pain requiring multiple injections, sleep apnea on CPAP, dyslipidemia, left breast cancer status post mastectomy, who presents today to my outpatient clinic for evaluation of a saccular thoracic aortic aneurysm. The patient has noticed worsening dysphagia and hoarse voice for the last 2 years. This has been attempted to be treated by thyroid assessment and dilation of the esophagus, however these work-ups and interventions have been ineffective. The patient denies any blood relative with known history of vascular disease including aneurysms. She does however report that her mother had a history of [place] measles during the of her older brother who at 6 months of age. Patient Active Problem List Diagnosis ??? Hypertensive [...] Breast cancer (HCC) ??? Dyspnea on exertion Past Medical History: Diagnosis Date ??? Abnormal CT scan 08/2001 of the head, calcified right sided-meningioma ??? Calcified cerebral meningioma (HCC) 08/[address] scans ??? Chronic low back pain ??? Dyslipidemia mild - ??? Hiatal hernia with gastroesophageal reflux ??? History of left breast cancer ??? Hypertensive cardiovascular disease ??? Labile hypertension ??? Migraine headache ??? Mild obesity ??? Nausea ??? Numbness and tingling in both hands ??? Obstructive sleep apnea on CPAP ??? Osteoarthritis cervical spine abnormal cervical spine series suggestive of the above noted ??? Post-menopausal ??? Right knee pain intractable - w/ subsequent right knee arthroscopic surgery and apparent meniscus resection ??? Sinusitis intermittent/ Allergic Rhinitis ??? Syncope increase with apparaent dehydration related to sinusitis- data deficit ??? Weakness Past Surgical History: Procedure Laterality Date ??? SECTION 1990 ??? CHOLECYSTECTOMY 05/2004 ??? COMPLETE MASTECTOMY W/ SENTINEL NODE BIOPSY Left ??? KNEE SURGERY Right replacement ??? ORIF HIP FRACTURE Right spring ??? TOTAL KNEE ARTHROPLASTY 2019 left Current Outpatient Medications: ??? aspirin 81 MG EC tablet, Take 1 tablet by mouth Daily., Disp: 90 tablet, Rfl: 3 ??? bisoprolol-hydrochlorothiazide (ZIAC) 5-6.25 MG per tablet, Take 1 tablet by mouth Daily., Disp: 90 tablet, Rfl: 3 ??? Cholecalciferol (VITAMIN D3) 2000 units tablet, Take 2,000 Units by mouth Daily., Disp: , Rfl: ??? cyanocobalamin (VITAMIN B-12) 500 MCG tablet, Take 500 mcg by mouth Daily., Disp: , Rfl: ??? meloxicam (MOBIC) 15 MG tablet, Take 7.5 mg by mouth Daily., Disp: , Rfl: ??? metoclopramide (REGLAN) 5 MG tablet, Take 5 mg by mouth Daily., Disp: , Rfl: ??? mometasone (NASONEX) 50 MCG/ACT nasal spray, 2 sprays into the nostril(s) as directed by provider As Needed., Disp: , Rfl: ??? oxybutynin (DITROPAN) 5 MG tablet, Take 5 mg by mouth Daily., Disp: , Rfl: ??? potassium chloride (K-DUR,KLOR-CON) 20 MEQ CR tablet, Take 1 tablet by mouth Daily., Disp: 90 tablet, Rfl: 3 ??? Probiotic Product (PROBIOTIC PO), Take 1 tablet by mouth Daily., Disp: , Rfl: ??? rosuvastatin (CRESTOR) 10 MG tablet, Take 1 tablet by mouth Daily., Disp: 90 tablet, Rfl: 3 Allergies Allergen Reactions ??? Morphine And Related Confusion ??? Penicillins Rash Social History Socioeconomic History ??? Marital status: Tobacco Use ??? Smoking status: Never ??? [...] ??? Hypertension Sister Review of Systems Constitutional: Negative. Negative for chills, fever, malaise/fatigue, night sweats and weight loss. HENT: Negative. Negative for hearing loss, odynophagia and sore throat. Cardiovascular: Positive for dyspnea on exertion. Negative for chest pain, leg swelling, orthopnea and palpitations. Respiratory: Negative. Negative for cough and hemoptysis. Endocrine: Negative. Negative for cold intolerance, heat intolerance, polydipsia, polyphagia and polyuria. Hematologic/Lymphatic: Bruises/bleeds easily. Skin: Negative. Negative for itching and rash. Musculoskeletal: Positive for arthritis, back pain, falls and joint pain. Negative for joint swelling and myalgias. Gastrointestinal: Positive for nausea. Negative for abdominal pain, constipation, diarrhea, hematemesis, hematochezia, melena and vomiting. Genitourinary: Negative. Negative for dysuria, frequency and hematuria. Neurological: Positive for dizziness and loss of balance. Negative for focal weakness, headaches, numbness and seizures. Psychiatric/Behavioral: Negative. Negative for suicidal ideas. All other systems reviewed and are negative. Vitals: 04/11/22 1003 BP: 157/98 BP Location: Left arm Patient Position: Sitting Pulse: 54 Temp: 97.5 ??F (36.4 ??C) SpO2: 99% Weight: 97.1 kg (214 lb) Height: 167.6 cm (66 ) Physical [...] exposed areas Musculoskeletal normal tone and bulk The ROS, past medical history, surgical history, family history, social history and vitals were reviewed by myself and corrected as needed. Labs/Imaging: I reviewed the patient's CT chest which is notable for right-sided aortic arch with a large saccular aneurysm that appears to be compressing the trachea and or esophagus near the level of the nubia. Assessment/Plan: 71-year-old woman with multiple medical comorbidities who presents today for elective evaluation of large saccular aneurysm of the thoracic aorta associated with a right-sided aorticarch. It is very likely that this aneurysm has grown over the last several years and is likely responsible for her progressively worsening dysphagia and hoarseness of voice. I had an extensive discussion with the patient and reviewed her imaging with her.I told her that there is no way to know exactly if or when the aneurysm will rupture, however saccular aneurysms are generally thought to be higher risk and should be treated regardless of size, and furthermore the patient is symptomatic. I expl ained my plan for TEVAR and I described the risk, benefits, and alternatives to the procedure including risk of bleeding, infection, heart attack, stroke, permanent disability, and . The patientdemonstrated good understanding and would like to schedule surgery soon as possible. 1. Preoperative testing and evaluation 2. TEVAR +/- right carotid subclavian bypass 3. CTA chest/abd/pelv preop Patient Active Problem List Diagnosis ??? Hypertensive [...] Breast cancer (HCC) ??? Dyspnea on exertion *Complex medical decision making requiring greater than 90 minutes of review the patient's medical record and imaging, as well as [id number] time for history taking, examination, diagnosis discussion, and management discussion.* I would like to thank you very much for this consultation. Nile Muse M.D., R.P.V.I. Cardiothoracic and Vascular Surgeon [facility] documented in this encounter Nursing Notes * Terri Vazquez RN - 04/28/2022 9:58 AM EST Goal Outcome Evaluation: Ambulating appropriately per PT, ready for discharge. * Riddhi Stewart, PT - 04/28/2022 9:50 AM EST Goal Outcome Evaluation: Plan of Care Reviewed With: patient, spouse Progress: no change Outcome Evaluation: PT initial eval completed. Pt limited by mild incisional pain. Pt ambulated 500ft indep and navigated 6 steps with unilateral handrail and SBA. No deficits requiring skilled IP PTat this time. PT will d/c orders. Please re-consult if needed. d/c rec for home with assist. * Luis Barnes RN - 04/28/2022 4:51 AM EST Goal Outcome Evaluation: VSS, adequate urinary output. No significant events. No complaints of pain. Ambulated to bathroom and back to bed without difficulty. * Luis Barnes RN - 04/27/2022 4:24 AM EST Goal Outcome Evaluation: VSS. No distress throughout night. Complained of slight burning at incisional site. Lidoderm patch deferred until in the morning per patient request. Adequate PO intake & urinary output. documented in this encounter OR Notes * Op Note - Nile Muse MD - 04/26/2022 1:17 PM EST CARDIOTHORACIC AND VASCULAR SURGERY OPERATIVE NOTE Date of Procedure: April 26, 2022 Preoperative Diagnosis: Right-sided aortic arch Dysphagia Saccular aneurysm of the descending thoracic aorta Postoperative Diagnosis: Same Procedure(s): 1. Ultrasound- and fluoroscopy-guided left common femoral artery needle access 2. Placement of 28 x 100 mm Dyess conformable tag thoracic stent graft (TEVAR) at proximal descending thoracic aorta 3. Thoracic aortogram 4. Percutaneous closure devices Perclose Pro-glide x2 at left common femoral arteriotomy 5. EEG monitoring 6. Left iliofemoral arteriogram Surgeon: Nile Muse M.D., R.P.V.I. Car Checker(s): Good BRICE The presence and participation of the physician's promotional advertising assistant was necessary for the successful completion of the case, and duties included positioning, suctioning, retracting, stitching, dressing, holding intracorporeal devices such as a wire or camera and/or harvesting vessels for bypass as needed. Anesthesia: General endotracheal anesthesia Estimated Blood Loss: Minimal Complications: None Total fluoroscopy time 7 minutes 14 seconds Total fluoroscopy dose delivered 2552 mGy Total contrast used 110 mL of Isovue-300 Indications: 72-year-old woman with history of progressively worsening dysphagia who was found to have a right sided aortic arch and saccular aneurysm of the descending thoracic aorta. Due to presumed enlargementand saccular morphology, endovascular repair was indicated. I discussed with the patient and her the risk, benefits, and alternatives to the procedure including risk of bleeding, infection, permanent disability including paralysis, heart attack, stroke, permanent disability, and . The patient demonstrated good understanding and signed written consent. Operative Findings: Adequate exclusion of the aneurysm on completion arch aortogram Procedure in Detail: The patient was identified in the preoperative area and taken to the operating room and laid in supine position on the operating table. Systemic antibiotics were administered. General anesthesia was administered and an endotracheal tube was placed. A bladder catheter was placed. A safety pause was performed in the presence of the entire operating staff. Using ultrasound and fluoroscopic guidance,the left common femoral artery was accessed using a micropuncture kit and the modified Seldinger technique and a nonselective left iliofemoral arteriogram was performed. 2 Perclose Pro-glide's were deployed at the 10:00 and 2:00 positions of the artery but not tightened at the left common femoral ar elaina. 7,500 units of heparin was given systemically. A Lunderquist wire was advanced into the aortato the level of the aortic arch, and a a 20 Divehi sheath was placed to the left common femoral artery, through which the stent graft was advanced under direct vision to the aortic arch. Pigtail catheter was advanced to the ascending aorta over a Magic torque wire. Arteriogram was performed in various angulations, and the graft was deployed without complication, and with retained contrast fillingof the arch vessels, and without filling of the aneurysm sac. There was no balloon dilation of the graft necessary. We are satisfied with the result, the gears were withdrawn, the Perclose's were tied down with good hemostasis, and 25 mg of protamine was administered systemically. Manual pressure was held for 10 minutes at the left groin site. There were Doppler signals at the distal femoral artery at the thigh and also at the left foot. All needle, sponge, and instrument counts were correct atthe completion of the procedure. I was present for the critical portions of the procedure. There were no EEG changes throughout the entire procedure. Nile Muse M.D., R.P.V.I. Cardiothoracic and Vascular Surgeon [facility] * Brief Op Note - Nile Muse MD - 04/26/2022 1:17 PM EST Juany Amado Agnes 04/26/2022 Pre-op Diagnosis: Thoracic aortic aneurysm without rupture, unspecified part [I71.20] Post-Op Diagnosis Codes: * Thoracic aortic aneurysm without rupture, unspecified part [I71.20] Procedure/CPT?? Codes: Procedure(s): TEVAR Surgeon(s): Nile Muse MD Anesthesia: General Staff: Training Analyst: Yolette Bhatti RN Scrub Person: Darshana Traylor [employer] Pricing Analyst: Sabra Colbert Car Checker: Erin Patrick PA-C Car Checker: Erin Patrick PA-C Estimated Blood Loss: minimal Urine Voided: * No values recorded between 04/26/2022 12:41 PM and 04/26/2022 2:10 PM * Specimens: None Drains: * No LDAs found * Findings: Adequate coverage and exclusion of the aneurysm the case completion Complications: None Car Checker: Erin Patrick PA-C was responsible for performing the following activities: Retraction, Suction, Irrigation, Suturing,Closing and Placing Dressing and their skilled assistance was necessary for the success of this case. Nile Muse MD Date: 04/26/2022 Time: 14:18 EST documented in this encounter Miscellaneous Notes * Case Management/Social Work - Anitha Wayne RN - 04/28/2022 10:41 AM EST Continued Stay Note [facility] Patient Name: Juany Alarcon Today's Date: 04/28/2022 Admit Date: 04/26/2022 Plan: Home Discharge Plan Row Name 04/28/22 1035 Plan Plan Home Patient/Family in Agreement with Plan yes Plan Comments Dc order in place. No needs. Plan is home. Final Discharge Disposition Code 01 - home or self-care Discharge Codes No documentation. Expected Discharge Date and Time Expected Discharge Date Expected Discharge Time Apr 28, 2022 Anitha Wayne RN documented in this encounter Plan of Treatment Upcoming Encounters Date Type Department Care Team (Late st Contact Info) Description 07/29/2024 10:45 AM EST Office Visit [facility] CARDIOLOGY [address] [place] [id number] Goyo Khan MD [address] [place] [address] 09/02/2024 11:30 AM EDT Office Visit [facility] CARDIOTHORACIC SURGERY [address] [facility] [place] [address] Dee Jaimes APRN [address] [facility] [address] [place] [address] documented as of this encounter Procedures Procedure Name Priority Date/Time Associated Diagnosis Comments PREPARE RBC Routine 04/30/2022 1:52 AM EST Thoracic aortic aneurysm without rupture, unspecified part POCT GLUCOSE FINGERSTICK Routine 04/28/2022 7:43 AM EST POCT GLUCOSE FINGERSTICK Routine 04/27/2022 5:00 PM EST POCT GLUCOSE FINGERSTICK Routine 04/27/2022 11:[address] ANGIOGRAM ABDOMEN PELVIS STAT 04/27/2022 9:[address] ANGIOGRAM CHEST W WO CONTRAST STAT 04/27/2022 9:43 AM EST HEMOGLOBIN AND HEMATOCRIT, BLOOD STAT 04/27/2022 8:47 AM EST POCT GLUCOSE FINGERSTICK Routine 04/27/2022 7:28 AM EST CBC (NO DIFF) Routine 04/27/2022 3:38 AM EST PHOSPHORUS Routine 04/27/2022 3:38 AM EST MAGNESIUM Routine 04/27/2022 3:38 AM EST CALCIUM, IONIZED Routine 04/27/2022 3:38 AM EST BASIC METABOLIC PANEL Routine 04/27/2022 3:38 AM EST XR [place] OR PROCEDURE Routine 04/26/2022 2:10 PM EST EEG DURING NONINTRACRANIAL SURGERY Routine 04/26/2022 2:10 PM EST POCT ACTIVATED CLOTTING TIME Routine 04/26/2022 1:39 PM EST AORTAGRAM WITH OR WITHOUT RUNOFFS POSSIBLE STENT 04/26/2022 12:26 PM EST Thoracic aortic aneurysm without rupture, unspecified part EEG AWAKE OR ASLEEP PORTABLE Routine 04/26/2022 9:30 AM EST TYPE AND SCREEN STAT 04/26/2022 8:45 AM EST documented in this encounter Results * Prepare RBC, 2 Units (04/30/2022 1:52 AM EST) Product Code [id number] [facility] LABORAT[facility] Unit Number [id number] [facility] BB LABORATORY UNIT ABO A [facility] LABORATORY UNIT RH POS [facility] Crossmatch Interpretation Compatible [facility] Dispense Status [facility] Blood Expiration Date [facility] Blood Type Barcode 6200 [facility] LAB[facility] Product Code [id number] [facility] Unit Number [id number] [facility] BB LABORATORY UNIT ABO A [facility] LABORATORY UNIT RH POS [facility] Crossmatch Interpretation Compatible [facility] Dispense Status [facility] Blood Expiration Date [facility] Blood Type Barcode 6200 [facility] Other Topography unknown / Unknown 04/26/2022 9:25 AM EST Edward BRICE BLOOD BANK PRODUCT ORDERABLES E dited Result - Final [facility]
[address] [place] [address], * (ABNORMAL) POC Glucose Once (04/28/2022 7:43 AM EST) Glucose 138(H) 70 - 130 mg/dL 04/28/2022 7:49 AM EST [facility] Comment:Meter: [id number] Op erator: [id number] Bri Sue Blood 04/28/2022 7:43 AM EST 04/28/2022 7:49 AM EST Nile Muse MD POINT OF CARE TEST ORDERABLES F inal Result Performing Organization Address City/[facility]/ZIP Co de Phone Number [facility]
[address] [place] [address], [place] [phone] * POC Glucose Once (04/27/2022 5:00 PM EST) Glucose 107 70 - 130 mg/dL 04/27/2022 5:11 PM EST [facility] Comment:Meter: [id number] Op erator: [id number] Bri Sue Blood 04/27/2022 5:00 PM EST 04/27/2022 5:11 PM EST Nile Muse MD POINT OF CARE TEST ORDERABLES F inal Result Performing Organization Address City/[facility] Co de Phone Number [facility]
[address] [place] [address], [place] [phone] * (ABNORMAL) POC Glucose Once (04/27/2022 11:31 AM EST) Glucose 151(H) 70 - 130 mg/dL 04/27/2022 11:49 AM EST [facility] Comment:Meter: [id number] Op erator: [id number] Bri Sue Blood 04/27/2022 11:3 1 AM EST 04/27/2022 11:49 AM EST Nile Muse MD POINT OF CARE TEST ORDERABLES F inal Result Performing Organization Address City/[facility] Co de Phone Number [facility]
[address] [place] [address], * CT Angiogram Abdomen Pelvis (04/27/2022 9:43 AM EST) Anatomical Region Laterality Modality Abdomen, Vascular, Pelvis N/A Comput ed Tomography 04/27/2022 10:2 8 AM EST Impressions 04/27/2022 10:41 AM EST Postoperative changes are seen from proximal descending thoracic aortic repair of a saccular aneurysm involving the right-sided aorta. There is no convincing acute hemorrhage within the chest, abdomen or pelvis. Other findings are stable. This report was finalized on 04/27/2022 10:41 AM by Santo Foster MD. Narrative 04/27/2022 10:41 AM EST DATE OF EXAM: 04/27/2022 9:38 AM PROCEDURE: CT ANGIOGRAM CHEST-, CT ANGIOGRAM ABDOMEN PELVIS- INDICATIONS: R/O Aortic bleed; I71.20-Thoracic aortic aneurysm, without rupture, unspecified COMPARISON: CT scan of the chest, abdomen and pelvis from 04/19/2022 TECHNIQUE: Contiguous axial imaging was obtained from the thoracic inlet through the upper abdomen following the intravenous administration of 100 mL of Isovue 370. Reconstructed coronal and sagittal images were also obtained. Automated exposure control and iterative reconstruction methods were used. The radiation dose reduction device was turned on for each scan per the ALARA (As Low as Reasonably Achievable) protocol. 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 There is no evidence of leak. There is no evidence of dissection. There is no mediastinal hematoma. There is moderate coronary artery calcific atherosclerosis. The remaining portions of the descending thoracic aorta appear normal. The proximal great vessels are normal. The abdominal aorta is nonaneurysmal. There is no evidence of celiac artery, superior mesenteric artery or inferior mesenteric artery stenosis or occlusion. The bilateral common, internal and external iliac arteries are tortuous without evidence of significant stenosis. NONVASCULAR FINDINGS: There is a left sided saline breast implant. There is mild left basilar atelectasis. There are changes of cholecystectomy. The cyst of the right hepatic lobe is unchanged. The bilateral kidneys, bilateral adrenal glands, pancreas and spleen are normal. There is no evidence of retroperitoneal hemorrhage. There are postsurgical changes in the left groin. Procedure Note Santo Foster MD - 04/27/2022 DATE OF EXAM: 04/27/2022 9:38 AM PROCEDURE: CT ANGIOGRAM CHEST-, CT ANGIOGRAM ABDOMEN PELVIS- INDICATIONS: R/O Aortic bleed; I71.20-Thoracic aortic aneurysm, without rupture, unspecified COMPARISON: CT scan of the chest, abdomen and pelvis from 04/19/2022 TECHNIQUE: Contiguous axial imaging was obtained from the thoracic inlet through the upper abdomen following the intravenous administration of 100 mL of Isovue 370. Reconstructed coronal and sagittal images were also obtained. Automated exposure control and iterative reconstruction methods were used. The radiation dose reduction device was turned on for each scan per the ALARA (As Low as Reasonably Achievable) protocol. 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 There is no evidence of leak. There is no evidence of dissection. There is no mediastinal hematoma. There is moderate coronary artery calcific atherosclerosis. The remaining portions of the descending thoracic aorta appear normal. The proximal great vessels are normal. The abdominal aorta is nonaneurysmal. There is no evidence of celiac artery, superior mesenteric artery or inferior mesenteric artery stenosis or occlusion. The bilateral common, internal and external iliac arteries are tortuous without evidence of significant stenosis. NONVASCULAR FINDINGS: There is a left sided saline breast implant. There is mild left basilar atelectasis. There are changes of cholecystectomy. The cyst of the right hepatic lobe is unchanged. The bilateral kidneys, bilateral adrenal glands, pancreas and spleen are normal. There is no evidence of retroperitoneal hemorrhage. There are postsurgical changes in the left groin. IMPRESSION: Postoperative changes are seen from proximal descending thoracic aortic repair of a saccular aneurysm involving the right-sided aorta. There is no convincing acute hemorrhage within the chest, abdomen or pelvis. Other findings are stable. This report was finalized on 04/27/2022 10:41 AM by Santo Foster MD. Brian Curtis MD IM CT ORDERABLES Final Result * CT Angiogram Chest (04/27/2022 9:43 AM EST) Anatomical Region Laterality Modality Chest, Vascular N/A Computed Tomogra phy 04/27/2022 10:2 8 AM EST Impressions 04/27/2022 10:41 AM EST Postoperative changes are seen from proximal descending thoracic aortic repair of a saccular aneurysm involving the right-sided aorta. There is no convincing acute hemorrhage within the chest, abdomen or pelvis. Other findings are stable. This report was finalized on 04/27/2022 10:41 AM by Santo Foster MD. Narrative 04/27/2022 10:41 AM EST DATE OF EXAM: 04/27/2022 9:38 AM PROCEDURE: CT ANGIOGRAM CHEST-, CT ANGIOGRAM ABDOMEN PELVIS- INDICATIONS: R/O Aortic bleed; I71.20-Thoracic aortic aneurysm, without rupture, unspecified COMPARISON: CT scan of the chest, abdomen and pelvis from 04/19/2022 TECHNIQUE: Contiguous axial imaging was obtained from the thoracic inlet through the upper abdomen following the intravenous administration of 100 mL of Isovue 370. Reconstructed coronal and sagittal images were also obtained. Automated exposure control and iterative reconstruction methods were used. The radiation dose reduction device was turned on for each scan per the ALARA (As Low as Reasonably Achievable) protocol. 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 There is no evidence of leak. There is no evidence of dissection. There is no mediastinal hematoma. There is moderate coronary artery calcific atherosclerosis. The remaining portions of the descending thoracic aorta appear normal. The proximal great vessels are normal. The abdominal aorta is nonaneurysmal. There is no evidence of celiac artery, superior mesenteric artery or inferior mesenteric artery stenosis or occlusion. The bilateral common, internal and external iliac arteries are tortuous without evidence of significant stenosis. NONVASCULAR FINDINGS: There is a left sided saline breast implant. There is mild left basilar atelectasis. There are changes of cholecystectomy. The cyst of the right hepatic lobe is unchanged. The bilateral kidneys, bilateral adrenal glands, pancreas and spleen are normal. There is no evidence of retroperitoneal hemorrhage. There are postsurgical changes in the left groin. Procedure Note Santo Foster MD - 04/27/2022 DATE OF EXAM: 04/27/2022 9:38 AM PROCEDURE: CT ANGIOGRAM CHEST-, CT ANGIOGRAM ABDOMEN PELVIS- INDICATIONS: R/O Aortic bleed; I71.20-Thoracic aortic aneurysm, without rupture, unspecified COMPARISON: CT scan of the chest, abdomen and pelvis from 04/19/2022 TECHNIQUE: Contiguous axial imaging was obtained from the thoracic inlet through the upper abdomen following the intravenous administration of 100 mL of Isovue 370. Reconstructed coronal and sagittal images were also obtained. Automated exposure control and iterative reconstruction methods were used. The radiation dose reduction device was turned on for each scan per the ALARA (As Low as Reasonably Achievable) protocol. 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 There is no evidence of leak. There is no evidence of dissection. There is no mediastinal hematoma. There is moderate coronary artery calcific atherosclerosis. The remaining portions of the descending thoracic aorta appear normal. The proximal great vessels are normal. The abdominal aorta is nonaneurysmal. There is no evidence of celiac artery, superior mesenteric artery or inferior mesenteric artery stenosis or occlusion. The bilateral common, internal and external iliac arteries are tortuous without evidence of significant stenosis. NONVASCULAR FINDINGS: There is a left sided saline breast implant. There is mild left basilar atelectasis. There are changes of cholecystectomy. The cyst of the right hepatic lobe is unchanged. The bilateral kidneys, bilateral adrenal glands, pancreas and spleen are normal. There is no evidence of retroperitoneal hemorrhage. There are postsurgical changes in the left groin. IMPRESSION: Postoperative changes are seen from proximal descending thoracic aortic repair of a saccular aneurysm involving the right-sided aorta. There is no convincing acute hemorrhage within the chest, abdomen or pelvis. Other findings are stable. This report was finalized on 04/27/2022 10:41 AM by Santo Foster MD. Brian Curtis MD IM CT ORDERABLES Final Result * (ABNORMAL) Hemoglobin & Hematocrit, Blood (04/27/2022 8:47 AM EST) Hemoglobin 10.7(L) 12.0 - 15.9 g/dL 04/27/2022 9:03 AM EST [facility] Hematocrit 32.6(L) 34.0 - 46.6 % 04/27/2022 9:03 AM EST [facility] Blood Line / Unknown 04/27/2022 8: 47 AM EST 04/27/2022 8:54 AM EST Brian Curtis MD LAB BLOOD ORDERABLES Fi nal Result Performing Organization Address [facility] de Phone Number [facility]
[address] [place] [address], * (ABNORMAL) POC Glucose Once (04/27/2022 7:28 AM EST) Glucose 177(H) 70 - 130 mg/dL 04/27/2022 7:30 AM EST [facility] Comment:Meter: [id number] Op erator: [id number] Bri Sue Blood 04/27/2022 7:28 AM EST 04/27/2022 7:30 AM EST Nile Muse MD POINT OF CARE TEST ORDERABLES F inal Result Performing Organization Address [facility] de Phone Number [facility]
[address] [place] [address], * Phosphorus (04/27/2022 3:38 AM EST) Phosphorus 2.7 2.5 - 4.5 mg/dL 04/27/2022 4:51 AM EST [facility] Blood Line / Unknown 04/27/2022 3: 38 AM EST 04/27/2022 4:08 AM EST Brian Curtis MD LAB BLOOD ORDERABLES Fi nal Result Performing Organization Address [facility] de Phone Number [facility]
[address] [place] [address], * Magnesium (04/27/2022 3:38 AM EST) Magnesium 1.8 1.6 - 2.4 mg/dL 04/27/2022 4:51 AM EST [facility] Blood Line / Unknown 04/27/2022 3: 38 AM EST 04/27/2022 4:08 AM EST Brian Curtis MD LAB BLOOD ORDERABLES Fi nal Result Performing Organization Address City/[facility]/ZIP Co de Phone Number [facility]
[address] [place] [address], * Calcium, Ionized (04/27/2022 3:38 AM EST) Ionized Calcium 1.29 1.12 - 1.32 mmol/L 04/27/2022 4:52 AM EST [facility] Blood Line / Unknown 04/27/2022 3: 38 AM EST 04/27/2022 4:08 AM EST Brian Curtis MD LAB BLOOD ORDERABLES Fi nal Result Performing Organization Address [facility] de Phone Number [facility]
[address] [place] [address], * (ABNORMAL) Basic Metabolic Panel (04/27/2022 3:38 AM EST) Glucose 177(H) 65 - 99 mg/dL 04/27/2022 4:51 AM [facility] BUN 21 8 - 23 mg/dL 04/27/2022 4:51 AM [facility] Creatinine 0.79 0.57 - 1.00 mg/dL 04/27/2022 4:51 AM EST [facility] Sodium 136 136 - 145 mmol/L 04/27/2022 4:51 AM EST [facility] Potassium 4.4 3.5 - 5.2 mmol/L 04/27/2022 4:51 AM [facility] Comment:Slight hemolysis det ected by analyzer. Results may be affected. Chloride 106 98 - 107 mmol/L 04/27/2022 4:51 AM [facility] CO2 20.0(L) 22.0 - 29.0 mmol/L 04/27/2022 4:51 AM EST [facility] Calcium 8.8 8.6 - 10.5 mg/dL 04/27/2022 4:51 AM EST [facility] BUN/Creatinine Ratio 26.6(H) 7.0 - 25.0 04/27/2022 4:51 AM EST [facility] Anion Gap 10.0 5.0 - 15.0 mmol/L 04/27/2022 4:51 AM EST [facility] eGFR 80.1 >60.0 mL/min/1. 73 04/27/2022 4:51 AM EST [facility] Comment:National Kidney Foun dation and [place] Society of Nephrology (ASN) Task Force recommended calculation based on the Chronic Kidney Disease Epidemiology Collaboration (CKD-EPI) equation refit without adjustment for race. Blood Line / Unknown 04/27/2022 3: 38 AM EST 04/27/2022 4:08 AM EST [facility] - 04/27/2022 4:51 AM EST GFR Normal >60 Chronic Kidney Disease <60 Kidney Failure <15 The GFR formula is only valid for adults with stable renal function between ages 18 and 70. Yudelka Maxwell PA-C LAB BLOOD ORDERABLES Final R esult [facility]
[address] [place] [address], * (ABNORMAL) CBC (No Diff) (04/27/2022 3:38 AM EST) WBC 10.37 3.40 - 10.80 10*3/mm3 04/27/2022 4:14 AM EST [facility] RBC 3.29(L) 3.77 - 5.28 10*6/mm3 04/27/2022 4:14 AM EST [facility] Hemoglobin 10.0(L) 12.0 - 15.9 g/dL 04/27/2022 4:14 AM EST [facility] Hematocrit 31.0(L) 34.0 - 46.6 % 04/27/2022 4:14 AM EST [facility] MCV 94.2 79.0 - 97.0 fL 04/27/2022 4:14 AM [facility] MCH 30.4 26.6 - 33.0 pg 04/27/2022 4:14 AM [facility] MCHC 32.3 31.5 - 35.7 g/dL 04/27/2022 4:14 AM [facility] RDW 14.6 12.3 - 15.4 % 04/27/2022 4:14 AM [facility] RDW-SD 51.0 37.0 - 54.0 fl 04/27/2022 4:14 AM [facility] MPV 11.1 6.0 - 12.0 fL 04/27/2022 4:14 AM [facility] Platelets 181 140 - 450 10*3/mm3 04/27/2022 4:14 AM [facility] Blood Line / Unknown 04/27/2022 3: 38 AM EST 04/27/2022 4:03 AM EST Yudelka Maxwell PA-C LAB BLOOD ORDERABLES Final R esult [facility]
[address] [place] [address], * EEG Monitoring Nonintracranial Surgery (04/26/2022 2:10 PM EST) Impressions Scar Rodriguez MD - 04/26/2022 3:03 PM EST Uneventful intraoperative monitoring This report is transcribed using the uSpeak dictation system. ?? Narrative Scar Rodriguez MD - 04/26/2022 3:03 PM EST Reason for referral: 72 y.o.female, monitoring during right subclavian-carotid artery bypass Technical Summary: A 19 channel digital EEG was performed using the international 10-20 placement system, including eye leads and EKG leads. Duration: 1 hour 18 minutes Findings: The awake tracing is as described in the baseline report following IV anesthesia there is generalized slowing of the background and dropout of EMG artifact. ??Eventually a pattern of diffuse medium amplitude 4 to 6 Hz intermixed delta and theta activity is seen symmetrically over both hemispheres. ??Toward the latter part of the study, it is decided by the surgical team that I carotid or subclavian artery bypass is not warranted, and the study is discontinued. ??During the time the study is in progress, no focal features are seen. Video: Off Technical quality: Superior SUMMARY: No lateralizing features are seen during this intraoperative monitoring study us Nile Muse MD NEUROLOGY ORDERABLES Final Resu lt * XR [place] Procedure (04/26/2022 2:10 PM EST) us Nile Muse MD IMG DIAGNOSTIC IMAGING ORDERABL ES Final Result * (ABNORMAL) POC Activated Clotting Time (04/26/2022 1:39 PM EST) Activated Clotting Time 219(H) 82 - 152 Seconds 04/26/2022 7:53 PM EST [facility] Comment:Serial Number: [id number] 2Operator: [id number] Blood 04/26/2022 1:39 PM EST 04/26/2022 7:53 PM EST us Nile Muse MD POINT OF CARE TEST ORDERABLES F inal Result [facility]
[address] [place] [address], * EEG AWAKE OR ASLEEP PORTABLE (04/26/2022 9:30 AM EST) Impressions NEUROLOGY - 04/26/2022 2:58 PM EST This study is adequate for intraoperative monitoring This report is transcribed using the SmartVineyardation system. ?? Narrative NEUROLOGY - 04/26/2022 2:58 PM EST Reason for referral: 72 y.o.female, preop study prior to monitoring for right carotid-subclavian bypass Technical Summary: A 19 channel digital EEG was performed using the international 10-20 placement system, including eye leads and EKG leads. Duration: 20 minutes Findings: The awake tracing shows diffuse low amplitude 5 to 7 Hz theta activity which is present over both hemispheres. ??EMG artifact is variably prominent. ??Photic stimulation and hyperventilation are not performed stage II sleep is not seen. ??No focal features or epileptiform activity are present. Video: Off Technical quality: Good EKG: Regular, 60 bpm SUMMARY: Normal EEG in the awake state Nile Muse MD NEUROLOGY ORDERABLES Final Resu lt Performing Organization Address [facility] de Phone Number NEUROLOGY * Type & Screen (04/26/2022 8:45 AM EST) ABO Type A 04/26/2022 9:56 AM EST [facility] RH type Positive 04/26/2022 9:56 AM EST [facility] Antibody Screen Negative 04/26/2022 9:56 AM EST [facility] T&S Expiration Date 04/29/2022 11:59:59 PM 04/26/2022 9:56 AM EST [facility] Blood 04/26/2022 8:45 AM EST 04/26/2022 9:25 AM EST Riddhi Jarvis DO BLOOD BANK TEST ORDERABLES Arun faheem Result - Final Performing Organization Address [facility] Co de Phone Number [facility]
[address] [place] [address], documented in this encounter Visit Diagnoses Diagnosis Thoracic aortic aneurysm without rupture, unspecified part Thoracic aortic aneurysm without rupture, unspecified part Thoracic aortic aneurysm without rupture, unspecified part documented in this encounter Admitting Diagnoses Diagnosis Thoracic aortic aneurysm without rupture Thoracic aortic aneurysm without rupture, unspecified part documented in this encounter Administered Medications Inactive Administered Medications - up to 3 most recent administrations Medication Order MAR Action Action Date Dose Rate Site aspirin EC tablet 81 mg 81 mg, Oral, Daily, First dose on 04/27/22 at 0900, Herbal/drug interaction: Avoid use with [...] Pain Score of 7-10, CPOT 5-8 Given 04/28/2022 8:39 AM EST 81 mg Given 04/27/2022 8:55 AM EST 81 mg bisoprolol (ZEBeta) tablet 5 mg 5 mg, Oral, Every 24 Hours Scheduled, First dose on Fri04/27/22 at 1215, Caution: Look alike/sound alike drug alert Given 04/28/2022 8:38 AM EST 5 mg Given 04/27/2022 11:38 AM EST 5 mg calcium gluconate 1g/50ml 0.675% NaCl IV SOLN 1 g, Intravenous, Administer over 1 Hours, As Needed, per protocol in admin instructions, Starting on Fri04/26/22 at 1846, Calcium replacement: If ionized Ca < 0.8 mmol/dL: Give Calcium Gluconate 1gm/100mL NS IV over 1 hour Then Calcium Gluconate 6gm/500mL NS IV over 6 hours Recheck ionized Ca 6 hours after infusion complete. If ionized Ca < 0.8 mmol/L, contact physician. calcium gluconate 6 g in sodium chloride 0.9 % 500 mL IVPB 6 g, Intravenous, at 83.3 mL/hr, Administer over 6 Hours, As Needed, per protocol in admin instructions, Starting on Fri04/26/22 at 1846, Calcium replacement: If ionized Ca < 0.8 mmol/dL: Give Calcium Gluconate 1gm/100mL NS IV over 1 hour Then Calcium Gluconate 6gm/500mL NS IV over 6 hours Recheck ionized Ca 6 hours after infusion complete. If ionized Ca < 0.8 mmol/L, contact physician. dextrose (D50W) (25 g/50 mL) IV injection 25 g 25 g, Intravenous, Every 15 Minutes PRN, Low Blood Sugar, Blood Sugar Less Than 70, Starting on Fri04/26/22 at 1845, Blood sugar less than 70; patient has IV access - Unresponsive, NPO or Unable To Safely Swallow dextrose (GLUTOSE) oral gel 15 g 15 g, Oral, Every 15 Minutes PRN, Low Blood Sugar, Blood sugar less than 70, Starting on Fri04/26/22 at 1845, BS<70, Patient Alert, Is not NPO, Can safely swallow. glucagon (human recombinant) (GLUCAGEN DIAGNOSTIC) injection 1 mg 1 mg, Intramuscular, Every 15 Minutes PRN, Low Blood Sugar, Blood Glucose Less Than 70, Starting on Fri04/26/22 at 1845, Blood Glucose Less Than 70 - Patient Without IV Access - Unresponsive, NPO or Unable To Safely Swallow Insulin Lispro (humaLOG) injection 0-7 Units 0-7 Units, Subcutaneous, 3 Times Daily Before Meals, First dose on Fri04/27/22 at 0730, Correction - Low Dose. Less than 40 units/day total insulin dose or lean, elderly, renal patients Blood glucose 150-199 mg/dL - 2 units Blood glucose 200-249 mg/dL - 3 units Blood glucose 250-299 mg/dL - 4 units Blood glucose 300-349 mg/dL - 5 units Blood glucose 350-400 mg/dL - 6 units Blood glucose greater than 400 mg/dL - 7 units and call provider {BKC} Caution: Look alike/sound alike drug alert{BKC} Given 04/27/2022 12:27 PM EST 2 Units Left Arm Given 04/27/2022 8:55 AM EST 2 Units Le ft Arm lactated ringers infusion 9 mL/hr, Intravenous, Continuous, Starting on Fri04/26/22 at 0811, May switch to NS IV at [facility] if renal / if indicated Restarted 04/26/2022 2:11 PM EST Currently Infusing 04/26/2022 12:41 PM EST 9 mL /hr New Bag 04/26/2022 9:09 AM EST 9 mL/hr 9 mL/hr lactobacillus acidophilus (RISAQUAD) capsule 1 capsule 1 capsule, Oral, Nightly, First dose on Fri04/26/22 at 2100 Given 04/27/2022 8:37 PM EST 1 capsule Given 04/26/2022 8:37 PM EST 1 capsule lidocaine (LIDODERM) 5 % 1 patch 1 patch, Transdermal, Administer over 12 Hours, Every 24 Hours Scheduled, First dose on Fri04/26/22 at 2230, Apply to skin on surgical site . Remove patch in 12 hours. Apply patch only once for up to 12 hours in 24 hour period. Based on patient request - if ordered for moderate or severe pain, provider allows for administration of a medication prescribed for a lower pain scale. If given for pain, use the following pain scale: Mild Pain = Pain Score of 1-3, CPOT 1-2 Moderate Pain = Pain Score of 4-6, CPOT 3-4 Severe Pain = Pain Score of 7-10, CPOT 5-8 lidocaine (XYLOCAINE) 1 % injection As Needed, Starting on Fri04/26/22 at 1315 Given 04/26/2022 1:15 PM EST 30 mL Magnesium Sulfate 2 gram / 50mL Infusion (GIVE X 3 BAGS TO EQUAL 6GM TOTAL DOSE) - Mg 1.1 - 1.5 mg/dl 2 g, Intravenous, at 25 mL/hr, Administer over 2 Hours, As Needed, See Administration Instructions, Starting on Fri04/26/22 at 1846, Mg 1.1 -1.5 mg/dL. Infuse 2 grams over 2 hours for 3 doses (for a total Mg dose of 6 grams). Recheck Mg level in the AM. Magnesium Sulfate 2 gram Bolus, followed by 8 gram infusion (total Mg dose 10 grams)- Mg less than or equal to 1mg/dL 2 g, Intravenous, As Needed, See Administration Instructions, Starting on Fri04/26/22 at 1846, Mg less than or equal to 1mg/dL. Give 2 gm over 30 minutes as bolus, then infuse 2 gm over 2 hours for 4 doses (8 grams) for total dose of 10 grams. Recheck Mg levels in the AM. Magnesium Sulfate 4 gram infusion- Mg 1.6-1.9 mg/dL 4 g, Intravenous, at 25 mL/hr, Administer over 4 Hours, As Needed, See Administration Instructions, Starting on Fri04/26/22 at 1846, Mg 1.6-1.9 mg/dL. Recheck Mg level in the AM. New Bag 04/27/2022 5:46 AM EST 4 g 25 mL/hr meloxicam (MOBIC) tablet 7.5 mg 7.5 mg, Oral, Daily, First dose (after last modification) on Fri04/27/22 at 0900, Based on patient request - if ordered for moderate or severe pain, provider allows for administration of a medication prescribed for a lower pain scale. If given for pain, use the following pain scale: Mild Pain = Pain Score of 1-3, CPOT 1-2 Moderate Pain = Pain Score of 4-6, CPOT 3-4 Severe Pain = Pain Score of 7-10, CPOT 5-8 Given 04/28/2022 8:38 AM EST 7.5 mg Given 04/27/2022 8:55 AM EST 7.5 mg metoclopramide (REGLAN) tablet 5 mg 5 mg, Oral, Daily, First dose on Fri04/27/22 at 0900, {SPC} Given 04/28/2022 8:38 AM EST 5 mg Given 04/27/2022 8:55 AM EST 5 mg niCARdipine (CARDENE) 25mg in 250mL NS infusion 5-15 mg/hr (50-150 mL/hr), Intravenous, Titrated, Starting on Fri04/26/22 at 1447, Start nicardipine at 5 mg/hr and titrate up or down 2.5 mg/hr every 15 minutes to maintain SBP = or < 140 to a maximum rate of 15 mg/hr. Caution: Look alike/sound alike drug alert ondansetron (ZOFRAN) injection 4 mg 4 mg, Intravenous, Every 6 Hours PRN, Nausea, Vomiting, Starting on Fri04/26/22 at 1445 ondansetron (ZOFRAN) tablet 4 mg 4 mg, Oral, Every 6 Hours PRN, Nausea, Vomiting, Starting on Fri04/26/22 at 1445 oxybutynin (DITROPAN) tablet 5 mg 5 mg, Oral, Daily, First dose on 04/27/22 at 0900 Given 04/28/2022 8:39 AM EST 5 mg Given 04/27/2022 8:56 AM EST 5 mg potassium & sodium phosphates (PHOS-NAK) 280-160-250 MG packet - for Phosphorus 1.25 - 2.5 mg/dL 2 packet, Oral, Every 6 Hours PRN, Phosphorus 1.25 - 2.5 mg/dL, Starting on Fri04/26/22 at 1846, Phosphorus replacement: If Phos 1.25 - 2.5 mg/dL: Give Neutraphos 2 packets by mouth every 6 hours x 1 dose. Recheck Phosphorus level 6 hours after replacement complete. potassium & sodium phosphates (PHOS-NAK) 280-160-250 MG packet - for Phosphorus less than 1.25 mg/dL 2 packet, Oral, Every 6 Hours PRN, Phosphorus less than 1.25 mg/dL, Starting on Fri04/26/22 at 1846, Phosphorus replacement: If Phos < 1.25 mg/dL : Give Neutraphos 2 packets by mouth every 6 hours x 2 doses. Recheck Phosphorus level 6 hours after replacement complete. potassium chloride (KLOR-CON) packet 40 mEq 40 mEq, Oral, As Needed, Potassium Replacement, See Admin Instructions, Starting on Fri04/26/22 at 1846, Potassium 3.1 or Less Give KCl 40 mEq q4h x3 Doses Potassium 3.2 - 3.6 Give KCl 40 mEq q4h x2 Doses Check Potassium 4 Hours After Last Dose Given Check Magnesium if Potassium Level Remains Low After Replacement DO NOT GIVE if CrCl is Less Than 30 mL/minute or Urine Output Less Than 30 mL/hr potassium chloride (MICRO-K) CR capsule 20 mEq 20 mEq, Oral, Daily, First dose on Fri04/27/22 at 0900 Given 04/28/2022 8:38 AM EST 20 mEq Given 04/27/2022 8:56 AM EST 20 mEq potassium chloride (MICRO-K) CR capsule 40 mEq 40 mEq, Oral, As Needed, Potassium Replacement.?See Admin Instructions, Starting on Fri04/26/22 at 1846, Potassium 3.1 or Less Give KCl 40 mEq q4h x3 Doses Potassium 3.2 - 3.6 Give KCl 40 mEq q4h x2 Doses Check Potassium 4 Hours After Last Dose Given Check Magnesium if Potassium Level Remains Low After Replacement DO NOT GIVE if CrCl is Less Than 30 mL/minute or Urine Output Less Than 30 mL/hr rosuvastatin (CRESTOR) tablet 10 mg 10 mg, Oral, Daily, First dose on Fri04/27/22 at 0900, Avoid grapefruit juice. Given 04/28/2022 8:38 AM EST 10 mg Given 04/27/2022 8:56 AM EST 10 mg sodium chloride 1,000 mL with heparin (porcine) 5000 UNIT/ML 10,000 Units mixture As Needed, Starting on Fri04/26/22 at 1315 Given 04/26/2022 1:15 PM EST vitamin B-12 (CYANOCOBALAMIN) tablet 500 mcg 500 mcg, Oral, Daily, First dose on 04/27/22 at 0900 Given 04/28/2022 8:38 AM EST 500 mcg Given 04/27/2022 8:55 AM EST 500 mcg documented in this encounter Active and Recently Administered Medications Times are shown in EST. Scheduled Medication Order 04/26/2022 04/27/2022 04/28/2022 aspirin EC tablet 81 mg 81 mg, Oral, Daily, First dose on 04/27/22 at 0900, Herbal/drug interaction: Avoid use with [...] = Pain Score of 7-10, CPOT 5-8 0855 (Given - Provider: Terri Vazquez RN) 0839 (Given - Provider: Terri Vazquez RN) bisoprolol (ZEBeta) tablet 5 mg 5 mg, Oral, Every 24 Hours Scheduled, First dose on 04/27/22 at 1215, Caution: Look alike/sound alike drug alert 1138 (Given - Provider: Terri Vazquez RN) 0838 (Given - Provider: Terri Vazquez RN) ceFAZolin in dextrose (ANCEF) IVPB solution 2 g (COMPLETED) 2 g, Intravenous, Administer over 30 Minutes, Once, On Fri04/26/22 at 0811, For 1 dose, Administer within 1 hour of surgical incision. Redose 4 hours from pre-op dose if procedure ongoing or >1.5 L blood loss. Caution: Look alike/sound alike drug alert, Indications: Surgical Prophylaxis 1254 (Given - Provider: Brandon Lmaas CRNA) ceFAZolin in dextrose (ANCEF) IVPB solution 2 g (COMPLETED) 2 g, Intravenous, Administer over 30 Minutes, Every 8 Hours, First dose on Fri04/26/22 at 2100, For 2 doses, Time first dose from pre-op dose. Caution: Look alike/sound alike drug alert, Indications: Surgical Prophylaxis 2099 (New Bag - Provider: Luis Barnes RN) 050 (New Bag - Provider: Luis Barnes RN) famotidine (PEPCID) tablet 20 mg (COMPLETED) 20 mg, Oral, Once, On Fri04/26/22 at 0811, For 1 dose 0910 (Given - Provider: Joleen Sosa RN) Insulin Lispro (humaLOG) injection 0-7 Units 0-7 Units, Subcutaneous, 3 Times Daily Before Meals, First dose on Fri04/27/22 at 0730, Correction - Low Dose. Less than 40 units/day total insulin dose or lean, elderly, renal patients Blood glucose 150-199 mg/dL - 2 units Blood glucose 200-249 mg/dL - 3 units Blood glucose 250-299 mg/dL - 4 units Blood glucose 300-349 mg/dL - 5 units Blood glucose 350-400 mg/dL - 6 units Blood glucose greater than 400 mg/dL - 7 units and call provider {BKC} Caution: Look alike/sound alike drug alert{BKC} 0855 (Given - Provider: Terri Vazquez RN)1227 (Given - Provider: Terri Vazquez RN)1725 (Not Given - Provider: Terri Vazquez RN - Reason: Order parameters not met) 0753 (Not Given - Provider: Terri Vazqeuz RN - Reason: Order parameters not met) iopamidol (ISOVUE-370) 76 % injection 100 mL (COMPLETED) 100 mL, Intravenous, Once in Imaging, On Fri04/27/22 at 1030, For 1 dose 0941 (Given - Provider: Carlos Mack, RT) lactobacillus acidophilus (RISAQUAD) capsule 1 capsule 1 capsule, Oral, Nightly, First dose on Fri04/26/22 at 2100 2036 (Given - Provider: Luis Barnes RN) 2036 (Given - Provider: Luis Barnes RN) lidocaine (LIDODERM) 5 % 1 patch 1 patch, Transdermal, Administer over 12 Hours, Every 24 Hours Scheduled, First dose on Fri04/26/22 at 2230, Apply to skin on surgical site . Remove patch in 12 hours. Apply patch only once for up to 12 hours in 24 hour period. Based on patient request - if ordered for moderate or severe pain, provider allows for administration of a medication prescribed for a lower pain scale. If given for pain, use the following pain scale: Mild Pain = Pain Score of 1-3, CPOT 1-2 Moderate Pain = Pain Score of 4-6, CPOT 3-4 Severe Pain = Pain Score of 7-10, CPOT 5-8 0041 (Not Given - Provider: Luis Barnes RN - Reason: Other - Comment: patient states that she does not need at this time)2305 (Not Given - Provider: Luis Barnes RN - Reason: Patient/family refused - Comment: Patient states that she does not need) meloxicam (MOBIC) tablet 7.5 mg 7.5 mg, Oral, Daily, First dose (after last modification) on 04/27/22 at 0900, Based on patient request - if ordered for moderate or severe pain, provider allows for administration of a medication prescribed for a lower pain scale. If given for pain, use the following pain scale: Mild Pain = Pain Score of 1-3, CPOT 1-2 Moderate Pain = Pain Score of 4-6, CPOT 3-4 Severe Pain = Pain Score of 7-10, CPOT 5-8 0855 (Given - Provider: Terri Vazquez RN) 0838 (Given - Provider: Terri Vazquez RN) metoclopramide (REGLAN) tablet 5 mg 5 mg, Oral, Daily, First dose on 04/27/22 at 0900, {SPC} 0855 (Given - Provider: Terri Vazquez RN) 0838 (Given - Provider: Terri Vazquez RN) mupirocin (BACTROBAN) 2 % nasal ointment 1 application (CANCELED) 1 application , Each Nare, Every 12 Hours, First dose on Fri04/26/22 at 0811, For 2 doses, Apply ?? tube (smaller amount may be sufficient for pediatric/ patients) in each nare. Press sides of nose together and gently massage for 1 minute to spread the ointment throughout the inside of the nostrils {BKC} 0910 (Given - Provider: Joleen Sosa RN) oxybutynin (DITROPAN) tablet 5 mg 5 mg, Oral, Daily, First dose on 04/27/22 at 0900 0856 (Given - Provider: Terri Vazquez RN) 0839 (Given - Provider: Terri Vazquez RN) potassium chloride (MICRO-K) CR capsule 20 mEq 20 mEq, Oral, Daily, First dose on 04/27/22 at 0900 0856 (Given - Provider: Terri Vazquez RN) 0838 (Given - Provider: Terri Vazquez RN) rosuvastatin (CRESTOR) tablet 10 mg 10 mg, Oral, Daily, First dose on 04/27/22 at 0900, Avoid grapefruit juice. 0856 (Given - Provider: Terri Vazquez RN) 0838 (Given - Provider: Terri Vazquez RN) scopolamine patch 1 mg/72 hr (CANCELED) 1 patch, Transdermal, Administer over 72 Hours, Every 72 Hours, First dose on Fri04/26/22 at 1110, Do not apply if patient older than 65 or has history of glaucoma. {BK} 1115 (Medication Applied - Provider: Joleen Sosa RN)1839 (Hold - Provider: Katarina Sorenson RN - Reason: Other - Comment: Time automatically adjusted from order being discontinued) vitamin B-12 (CYANOCOBALAMIN) tablet 500 mcg 500 mcg, Oral, Daily, First dose on 04/27/22 at 0900 0855 (Given - Provider: Terri Vazquez RN) 0838 (Given - Provider: Terri Vazquez RN) Continuous Medication Order 04/26/2022 04/27/2022 04/28/2022 lactated ringers infusion 9 mL/hr, Intravenous, Continuous, Starting on Fri04/26/22 at 0811, May switch to NS IV at KVO if renal / if indicated 0909 (New Bag - Provider: Joleen Sosa RN)1241 (Currently Infusing - Provider: Brandon Lamas CRNA)1410 (Paused - Provider: Brandon Lamas CRNA - Comment: Switch to gravity)1411 (Restarted - Provider: Brandon Lamas CRNA) niCARdipine (CARDENE) 25mg in 250mL NS infusion 5-15 mg/hr (50-150 mL/hr), Intravenous, Titrated, Starting on Fri04/26/22 at 1447, Start nicardipine at 5 mg/hr and titrate up or down 2.5 mg/hr every 15 minutes to maintain SBP = or < 140 to a maximum rate of 15 mg/hr. Caution: Look alike/sound alike drug alert 1836 (Hold - Provider: Katarina Sorenson, RN - Reason: Order parameters not met) sodium chloride 0.45 % infusion (CANCELED) 100 mL/hr, Intravenous, Continuous, Starting on Fri04/26/22 at 1447 1837 (New Bag - Provider: Katarina Sorenson, RN)2225 (Stopped - Provider: Luis Barnes RN) PRN Medication Order 04/26/2022 04/27/2022 04/28/2022 calcium gluconate 1g/50ml 0.675% NaCl IV SOLN(Linked Group 1) 1 g, Intravenous, Administer over 1 Hours, As Needed, per protocol in admin instructions, Starting on Fri04/26/22 at 1846, Calcium replacement: If ionized Ca < 0.8 mmol/dL: Give Calcium Gluconate 1gm/100mL NS IV over 1 hour Then Calcium Gluconate 6gm/500mL NS IV over 6 hours Recheck ionized Ca 6 hours after infusion complete. If ionized Ca < 0.8 mmol/L, contact physician. calcium gluconate 6 g in sodium chloride 0.9 % 500 mL IVPB(Linked Group 1) 6 g, Intravenous, at 83.3 mL/hr, Administer over 6 Hours, As Needed, per protocol in admin instructions, Starting on Fri04/26/22 at 1846, Calcium replacement: If ionized Ca < 0.8 mmol/dL: Give Calcium Gluconate 1gm/100mL NS IV over 1 hour Then Calcium Gluconate 6gm/500mL NS IV over 6 hours Recheck ionized Ca 6 hours after infusion complete. If ionized Ca < 0.8 mmol/L, contact physician. dextrose (D50W) (25 g/50 mL) IV injection 25 g 25 g, Intravenous, Every 15 Minutes PRN, Low Blood Sugar, Blood Sugar Less Than 70, Starting on Fri04/26/22 at 1845, Blood sugar less than 70; patient has IV access - Unresponsive, NPO or Unable To Safely Swallow dextrose (GLUTOSE) oral gel 15 g 15 g, Oral, Every 15 Minutes PRN, Low Blood Sugar, Blood sugar less than 70, Starting on Fri04/26/22 at 1845, BS<70, Patient Alert, Is not NPO, Can safely swallow. fentaNYL citrate (PF) (SUBLIMAZE) injection 50 mcg (CANCELED) 50 mcg, Intravenous, Every 5 Minutes PRN, Moderate Pain, Starting on Fri04/26/22 at 1425, For 5 doses, If given for pain, use the following pain scale: Mild Pain = Pain Score of 1-3, CPOT 1-2 Moderate Pain = Pain Score of 4-6, CPOT 3-4 Severe Pain = Pain Score of 7-10, CPOT 5-8 1513 (Given - Provider: Chago Leon RN) glucagon (human recombinant) (GLUCAGEN DIAGNOSTIC) injection 1 mg 1 mg, Intramuscular, Every 15 Minutes PRN, Low Blood Sugar, Blood Glucose Less Than 70, Starting on Fri04/26/22 at 1845, Blood Glucose Less Than 70 - Patient Without IV Access - Unresponsive, NPO or Unable To Safely Swallow lidocaine (XYLOCAINE) 1 % injection (CANCELED) As Needed, Starting on Fri04/26/22 at 1315 1315 (Given - Provider: Nile Muse MD) lidocaine PF 1% (XYLOCAINE) injection 0.5 mL (COMPLETED) 0.5 mL, Injection, Once As Needed, IV Start, Starting on Fri04/26/22 at 0809, For 1 dose 0909 (Given - Provider: Joleen Sosa RN) magnesium hydroxide (MILK OF MAGNESIA) suspension 10 mL 10 mL, Oral, Daily PRN, Constipation, Starting on Fri04/26/22 at 1445 Magnesium Sulfate 2 gram / 50mL Infusion (GIVE X 3 BAGS TO EQUAL 6GM TOTAL DOSE) - Mg 1.1 - 1.5 mg/dl(Linked Group 2) 2 g, Intravenous, at 25 mL/hr, Administer over 2 Hours, As Needed, See Administration Instructions, Starting on Fri04/26/22 at 1846, Mg 1.1 -1.5 mg/dL. Infuse 2 grams over 2 hours for 3 doses (for a total Mg dose of 6 grams). Recheck Mg level in the AM. 0546 (Not Given: See Alt - Provider: Luis Barnes RN) Magnesium Sulfate 2 gram Bolus, followed by 8 gram infusion (total Mg dose 10 grams)- Mg less than or equal to 1mg/dL(Linked Group 2) 2 g, Intravenous, As Needed, See Administration Instructions, Starting on Fri04/26/22 at 1846, Mg less than or equal to 1mg/dL. Give 2 gm over 30 minutes as bolus, then infuse 2 gm over 2 hours for 4 doses (8 grams) for total dose of 10 grams. Recheck Mg levels in the AM. 0546 (Not Given: See Alt - Provider: Luis Barnes, CRISTOBAL) Magnesium Sulfate 4 gram infusion- Mg 1.6-1.9 mg/dL(Linked Group 2) 4 g, Intravenous, at 25 mL/hr, Administer over 4 Hours, As Needed, See Administration Instructions, Starting on Fri04/26/22 at 1846, Mg 1.6-1.9 mg/dL. Recheck Mg level in the AM. 0546 (New Bag - Provider: Luis Barnes RN) ondansetron (ZOFRAN) injection 4 mg(Linked Group 3) 4 mg, Intravenous, Every 6 Hours PRN, Nausea, Vomiting, Starting on Fri04/26/22 at 1445 ondansetron (ZOFRAN) tablet 4 mg(Linked Group 3) 4 mg, Oral, Every 6 Hours PRN, Nausea, Vomiting, Starting on Fri04/26/22 at 1445 potassium & sodium phosphates (PHOS-NAK) 280-160-250 MG packet - for Phosphorus 1.25 - 2.5 mg/dL(Linked Group 4) 2 packet, Oral, Every 6 Hours PRN, Phosphorus 1.25 - 2.5 mg/dL, Starting on Fri04/26/22 at 1846, Phosphorus replacement: If Phos 1.25 - 2.5 mg/dL: Give Neutraphos 2 packets by mouth every 6 hours x 1 dose. Recheck Phosphorus level 6 hours after replacement complete. potassium & sodium phosphates (PHOS-NAK) 280-160-250 MG packet - for Phosphorus less than 1.25 mg/dL(Linked Group 4) 2 packet, Oral, Every 6 Hours PRN, Phosphorus less than 1.25 mg/dL, Starting on Fri04/26/22 at 1846, Phosphorus replacement: If Phos < 1.25 mg/dL : Give Neutraphos 2 packets by mouth every 6 hours x 2 doses. Recheck Phosphorus level 6 hours after replacement complete. potassium chloride (KLOR-CON) packet 40 mEq 40 mEq, Oral, As Needed, Potassium Replacement, See Admin Instructions, Starting on Fri04/26/22 at 1846, Potassium 3.1 or Less Give KCl 40 mEq q4h x3 Doses Potassium 3.2 - 3.6 Give KCl 40 mEq q4h x2 Doses Check Potassium 4 Hours After Last Dose Given Check Magnesium if Potassium Level Remains Low After Replacement DO NOT GIVE if CrCl is Less Than 30 mL/minute or Urine Output Less Than 30 mL/hr potassium chloride (MICRO-K) CR capsule 40 mEq 40 mEq, Oral, As Needed, Potassium Replacement.?See Admin Instructions, Starting on Fri04/26/22 at 1846, Potassium 3.1 or Less Give KCl 40 mEq q4h x3 Doses Potassium 3.2 - 3.6 Give KCl 40 mEq q4h x2 Doses Check Potassium 4 Hours After Last Dose Given Check Magnesium if Potassium Level Remains Low After Replacement DO NOT GIVE if CrCl is Less Than 30 mL/minute or Urine Output Less Than 30 mL/hr sennosides-docusate (PERICOLACE) 8.6-50 MG per tablet 2 tablet 2 tablet, Oral, 2 Times Daily PRN, Constipation, Starting on Fri04/26/22 at 1445, Hold for loose stools. sodium chloride 1,000 mL with heparin (porcine) 5000 UNIT/ML 10,000 Units mixture (CANCELED) As Needed, Starting on Fri04/26/22 at 1315 1315 (Given - Provider: Nile Muse MD) Linked Groups Order Group 1: calcium gluconate 1g/50ml 0.675% NaCl IV SOLNJump to med 1 g, Intravenous, Administer over 1 Hours, As Needed, per protocol in admin instructions, Starting on Fri04/26/22 at 1846, Calcium replacement: If ionized Ca < 0.8 mmol/dL: Give Calcium Gluconate 1gm/100mL NS IV over 1 hour Then Calcium Gluconate 6gm/500mL NS IV over 6 hours Recheck ionized Ca 6 hours after infusion complete. If ionized Ca < 0.8 mmol/L, contact physician. And calcium gluconate 6 g in sodium chloride 0.9 % 500 mL IVPBJump to med 6 g, Intravenous, at 83.3 mL/hr, Administer over 6 Hours, As Needed, per protocol in admin instructions, Starting on Fri04/26/22 at 1846, Calcium replacement: If ionized Ca < 0.8 mmol/dL: Give Calcium Gluconate 1gm/100mL NS IV over 1 hour Then Calcium Gluconate 6gm/500mL NS IV over 6 hours Recheck ionized Ca 6 hours after infusion complete. If ionized Ca < 0.8 mmol/L, contact physician. And Calcium, Ionized (CANCELED) As Needed, Starting on Fri04/26/22 at 1846, Until Specified, Six hours after infusion complete, New collection, Release to patient: Routine Release, Specimen Types - Blood; Group 2: Magnesium Sulfate 2 gram Bolus, followed by 8 gram infusion (total Mg dose 10 grams)- Mg less than or equal to 1mg/dLJump to med 2 g, Intravenous, As Needed, See Administration Instructions, Starting on Fri04/26/22 at 1846, Mg less than or equal to 1mg/dL. Give 2 gm over 30 minutes as bolus, then infuse 2 gm over 2 hours for 4 doses (8 grams) for total dose of 10 grams. Recheck Mg levels in the AM. Or Magnesium Sulfate 2 gram / 50mL Infusion (GIVE X 3 BAGS TO EQUAL 6GM TOTAL DOSE) - Mg 1.1 - 1.5 mg/dlJump to med 2 g, Intravenous, at 25 mL/hr, Administer over 2 Hours, As Needed, See Administration Instructions, Starting on Fri04/26/22 at 1846, Mg 1.1 -1.5 mg/dL. Infuse 2 grams over 2 hours for 3 doses (for a total Mg dose of 6 grams). Recheck Mg level in the AM. Or Magnesium Sulfate 4 gram infusion- Mg 1.6-1.9 mg/dLJump to med 4 g, Intravenous, at 25 mL/hr, Administer over 4 Hours, As Needed, See Administration Instructions, Starting on Fri04/26/22 at 1846, Mg 1.6-1.9 mg/dL. Recheck Mg level in the AM. Group 3: ondansetron (ZOFRAN) tablet 4 mgJump to med 4 mg, Oral, Every 6 Hours PRN, Nausea, Vomiting, Starting on Fri04/26/22 at 1445 Or ondansetron (ZOFRAN) injection 4 mgJump to med 4 mg, Intravenous, Every 6 Hours PRN, Nausea, Vomiting, Starting on Fri04/26/22 at 1445 Group 4: potassium & sodium phosphates (PHOS-NAK) 280-160-250 MG packet - for Phosphorus less than 1.25 mg/dLJump to med 2 packet, Oral, Every 6 Hours PRN, Phosphorus less than 1.25 mg/dL, Starting on Fri04/26/22 at 1846, Phosphorus replacement: If Phos < 1.25 mg/dL : Give Neutraphos 2 packets by mouth every 6 hours x 2 doses. Recheck Phosphorus level 6 hours after replacement complete. Or potassium & sodium phosphates (PHOS-NAK) 280-160-250 MG packet - for Phosphorus 1.25 - 2.5 mg/dLJump to med 2 packet, Oral, Every 6 Hours PRN, Phosphorus 1.25 - 2.5 mg/dL, Starting on Fri04/26/22 at 1846, Phosphorus replacement: If Phos 1.25 - 2.5 mg/dL: Give Neutraphos 2 packets by mouth every 6 hours x 1 dose. Recheck Phosphorus level 6 hours after replacement complete. documented in this encounter Care Teams Stunt Man Relationship Specialty Start Date End Date Talon Barragan MD [address] [place] [address] PCP - General Family Medicine 03/20/22 documented as of this encounter
--- OUTSIDE RECORDS SUMMARY | 2024-05-04 22:48 | XMS_ITS | Encounter Summary ---
[facility] Address [address] [place] [address] Care Team Providers Care Disc Recordist Name Role Phone Talon Barragan MD Primary Care Provider Reason for Visit * (Routine) - Closed Specialty Diagnoses / Procedures Referred By Heather santos Referred To Contact Radiology Diagnoses Thoracic aortic aneurysm without rupture, unspecified part Procedures Chest X-Ray PA & Lateral Edward Resendez, PA [address] [facility] [address] [place] [address] Phone: tel: fax: Referral ID Status Reason Start Date Expiration Date Visits Re quested Visits Authorized [id number] Closed 04/19/2022 04/19/2023 1 1 Encounter Details Date Type Department Care Team (Latest Contact Info) Description 04/22/2022 4:16 PM EST - 04/22/2022 11:59 PM EST Hospital Encounter [facility] XRAY [address] [place] [id number] Discharge Disposition: Home or Self Care Social History Tobacco Use Types Packs/Day Years Used Date Smoking Tobacco: Never Smokeless Tobacco: Never Alcohol Use Standard Drinks/Week Comments Yes 2 (1 standard drink = 0.6 oz pur e alcohol) social Education Answer Date Recorded Help with school or training? Not on file Preferred Language Vietnamese 04/22/2022 Comments No Sex and Gender Information Value Date Recorded Sex Assigned at Not on file Legal Sex Female 1:29 PM EDT Gender Identity Not on file Sexual Orientation Not on file documented as of this encounter Medications at [...] 06/29/2021 07/12/2022 documented as of this encounter Plan of Treatment Upcoming Encounters Date Type Department Care Team (Late st Contact Info) Description 07/29/2024 10:45 AM EST Office Visit [facility] CARDIOLOGY [address] [place] [address] Goyo Khan MD [address] [facility] [address] [place] [id number] 09/02/2024 11:30 AM EDT Office Visit [facility] CARDIOTHORACIC SURGERY [address] [facility] [address] [place] [address] Dee Jaimes, SPECIMEN TECHNICIAN [address] [facility] [address] [place] [address] documented as of this encounter Procedures Procedure Name Priority Date/Time Associated Diagnosis Comments XR CHEST PA AND LATERAL Routine 04/22/2022 4:35 PM EST Thoracic aortic aneurysm without rupture, unspecified part documented in this encounter Results * Chest X-Ray PA & Lateral (04/22/2022 4:35 PM EST) Anatomical Region Laterality Modality Body, Chest N/A Radiographic Lindsey ging 04/22/2022 4:43 PM EST Impressions 04/22/2022 4:45 PM EST No acute cardiopulmonary abnormality. This report was finalized on 04/22/2022 4:45 PM by Sachin Holly MD. Narrative 04/22/2022 4:45 PM EST DATE OF EXAM: 04/22/2022 4:18 PM PROCEDURE: XR CHEST PA AND LATERAL- INDICATIONS: Pre-Op Cardiac Surgery; I71.20-Thoracic aortic aneurysm, without rupture, unspecified COMPARISON: No Comparisons Available TECHNIQUE: Two radiologic views of the chest. FINDINGS: Lungs are normally expanded. The heart size is normal. There is no pneumothorax or pleural effusion or focal pulmonary parenchymal opacity. Pulmonary vessels are distinct. The bones and soft tissues are normal. Procedure Note Sachin Holly MD - 04/22/2022 DATE OF EXAM: 04/22/2022 4:18 PM PROCEDURE: XR CHEST PA AND LATERAL- INDICATIONS: Pre-Op Cardiac Surgery; I71.20-Thoracic aortic aneurysm, without rupture, unspecified COMPARISON: No Comparisons Available TECHNIQUE: Two radiologic views of the chest. FINDINGS: Lungs are normally expanded. The heart size is normal. There is no pneumothorax or pleural effusion or focal pulmonary parenchymal opacity. Pulmonary vessels are distinct. The bones and soft tissues are normal. IMPRESSION: No acute cardiopulmonary abnormality. This report was finalized on 04/22/2022 4:45 PM by Sachin Holly MD. us [facility] ORDERABL ES Final Result documented in this encounter Visit Diagnoses Not on filedocumented in this encounter Care Teams Disc Recordist Relationship Specialty Start Date End Date Talon Barragan MD [address] [facility] [address] [facility] [address] [place] [address] PCP - General Family Medicine 03/20/22 documented as of this encounter
--- OUTSIDE RECORDS SUMMARY | 2024-05-04 22:48 | XMS_ITS | Encounter Summary ---
[facility] Address [address] [place] [address] Care Team Providers Care Tone Artist Apprentice Name Role Phone Talon Barragan MD Primary Care Provider Reason for Visit * Auth/Cert (Routine) Specialty Diagnoses / Procedures Referred By Heather t Referred To Contact Diagnoses Thoracic aortic aneurysm without rupture, unspecified part Thoracic aortic aneurysm without rupture, unspecified part [I71.20] Procedures HI ENDOVASC TAA REINCL SUBCL HI BYPASS GRAFT OTHR,CAROT-SUBCL THORACIC AORTAGRAM, POSSIBLE TEVAR, POSSIBLE CAROTID SUBCLAVIAN BYPASS Referral ID Status Reason Start Date Expiration Date Visits Re quested Visits Authorized [id number] 1 1 Encounter Details Date Type Department Care Team (Latest Contact Info) Description 04/26/2022 6:19 AM EST - 04/28/2022 10:41 AM EST Hospital Encounter [facility] 2B ICU [address] [place] [id number] Nile Muse MD Thoracic aortic aneurysm without rupture, unspecified part Discharge Disposition: Home or Self Care Social History Tobacco Use Types Packs/Day Years Used Date Smoking Tobacco: Never Smokeless Tobacco: Never Alcohol Use Standard Drinks/Week Comments Yes 2 (1 standard drink = 0.6 oz pur e alcohol) social Education Answer Date Recorded Help with school or training? Not on file Preferred Language Angolan 04/22/2022 Comments No Sex and Gender Information Value Date Recorded Sex Assigned at Not on file Legal Sex Female 1:29 PM EDT Gender Identity Not on file Sexual Orientation Not on file documented as of this encounter Last Filed Vital Signs Vital Sign Reading Time Taken Comments Blood Pressure 137/61 04/28/2022 10:00 AM EST Pulse 58 04/28/2022 10:00 AM EST Temperature 37.1 ??C (98.8 ??F) 04/28/2022 8:00 AM ES T Respiratory Rate 14 04/28/2022 8:00 AM EST Oxygen Saturation 98% 04/28/2022 10:00 AM EST Inhaled Oxygen Concentration - - [...] apnea on CPAP Anemia History of Present [id number] woman with history of progressively worsening dysphagia [...] 2. Placement of 28 x 100 mm Ord conformable tag thoracic stent graft (TEVAR) at [...] ALBA ALBA 05/30/2022 12:45 PM Case, Baylee Harkins, DO [facility] ALBA ALBA 07/12/2022 10:00 AM Keesha Claire APRN [facility] ALBA ALBA Talon Brink PA-C 05/19/22 11:09 EST Cosigned by Nile Muse [...] Provider Type Riddhi Gibbons PT Physical Therapist Mobility Row Name 04/28/22 1013 Sit-Stand Transfer Sit-Stand [place] (Transfers) independent -AY Row Name 04/28/22 1013 Gait/Stairs (Locomotion) [place] Level (Gait) independent -AY Distance in Feet (Gait) 500 -AY Deviations/Abnormal Patterns (Gait) antalgic -AY Left Sided Gait Deviations weight shift ability decreased -AY [place] Level (Stairs) supervision -AY Number of Steps (Stairs) 6 -AY Ascending Technique (Stairs) [id number] -AY Descending Technique (Stairs) [id number]-rfse -AY Comment, (Gait/Stairs) no LOB noted with mobility. Cueing required for stair navigation sequencing.Gait distance limited by fatigue and increased incisional pain. -AY User Casas (r) = Recorded By, (t) = Taken By, (c) = Cosigned By Initials Name Provider Type AY Riddhi Stewart PT Physical Therapist Obj/Interventions Row Name 04/28/22 [...] Name 04/28/22 1019 Pain Pretreatment Pain Rating 210 -AY Posttreatment Pain Rating 10 -AY Pain [...] light within reach;encouraged to call for assist;with family/caregiver;waffle cushion RN deferred chair alarm -AY User Casas (r) = Recorded By, (t) = Taken By, (c) = Cosigned By Initials Name Provider Type Riddhi Gibbons, [place] Physical Therapist Outcome Measures Row Name 04/28/22 [...] Cosigned By Initials Name Provider Type AY Riddhi Stewart PT Physical Therapist Physical Therapy Education Title: PT OT WRITING MANAGER Therapies (Resolved) Topic: Physical Therapy (Resolved) Point: [...] Cosigned By Initials Name Provider Type AY Riddhi Stewart, PT Physical Therapist Therapy Charges for Today Code Description Service Date Service Provider Modifiers Qty [id number] HC PT EVAL LOW COMPLEXITY 4 04/28/2022 [...] list. Patient: Juany Alarcon : 1950 Account: [id number] Admit Date: 04/26/2022 How to Respond to [...] medical record. Sincerely, Amelia Lewis RN, [email or web address] Clinical Documentation Integrity Program * Talon Brink [...] Hours) Procedure Component Value Units Date/Time XR Tom [place] OR Procedure [[id number]] Resulted: 04/26/22 141 Updated: 04/26/221410 Assessment Saccular aneurysm of the descending thoracic [...] CPAP, dyslipidemia, and dysphagia who presents to [facility] on 04/26/2022 for an elective TEVAR with [...] social history were reviewed and updated in [facility] as appropriate. Objective Infusions: lactated [...] CPAP, dyslipidemia, and dysphagia who presents to [facility] on 04/26/2022 for an elective TEVAR with [...] social history were reviewed and updated in Epic as appropriate. 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 Nlie Muse M.D., R.P.V.I. Cardiothoracic and Vascular Surgeon [facility] documented in this encounter Nursing Notes * [...] 2. Placement of 28 x 100 mm Ord conformable tag thoracic stent graft (TEVAR) at proximal descending thoracic aorta 3. Thoracic aortogram 4. Percutaneous closure devices Perclose Pro-glide x2 at left common femoral arteriotomy 5. EEG monitoring 6. Left iliofemoral arteriogram Surgeon: Nile Muse M.D., R.P.V.I. Newsroom Intern(s): Good BRICE The presence and participation of the physician's regional administrative assistant was necessary for the successful completion [...] the aortic arch, and a a 20 Japanese sheath was placed to the left common [...] Muse M.D., R.P.V.I. Cardiothoracic and Vascular Surgeon [facility] * Brief Op Note - Nile Muse MD - 04/26/2022 1:17 PM EST Juany Ingris Agnes 04/26/2022 Pre-op Diagnosis: Thoracic aortic aneurysm without rupture, unspecified part [I71.20] Post-Op Diagnosis Codes: * Thoracic aortic aneurysm without rupture, unspecified part [I71.20] Procedure/CPT?? Codes: Procedure(s): TEVAR Surgeon(s): Nile Muse MD Anesthesia: General Staff: Account Advisor: Yolette Bhatti RN Scrub Person: Darshana Traylor Charles E Residential Carpenter: Sabra Colbert Newsroom Intern: Erin Patrick PA-C Newsroom Intern: Erin Patrick PA-C Estimated Blood Loss: minimal Urine Voided: * No values recorded between 04/26/2022 12:41 PM and 04/26/2022 2:10 PM * Specimens: None Drains: * No LDAs found * Findings: Adequate coverage and exclusion of the aneurysm the case completion Complications: None Newsroom Intern: Erin Patrick PA-C was responsible for performing the following activities: Retraction, Suction, Irrigation, Suturing,Closing and Placing Dressing and their skilled assistance was necessary for the success of this case. Nile Muse MD Date: 04/26/2022 Time: 14:18 EST documented in this encounter Miscellaneous Notes * Case Management/Social Work - Anitha Wayne RN - 04/28/2022 10:41 AM EST Continued Stay Note [facility] Patient Name: Juany Alarcon Today's Date: 04/28/2022 [...] Description 07/29/2024 10:45 AM EST Office Visit [facility] CARDIOLOGY [address] [facility] [address] [place] [phone] Goyo Khan MD [address] [facility] [address] [place] [address] 09/02/2024 11:30 AM EDT Office Visit [facility] CARDIOTHORACIC SURGERY [address] [facility] [address] [place] [address] Dee Jaimes APRN [address] [facility] [address] [place] [address] documented as of this encounter Procedures Procedure [...] Units (04/30/2022 1:52 AM EST) Product Code Q8642F48 [facility] BB LABORATORY Unit Number [id number] BA [facility] BB LABORATORY UNIT ABO A [facility] BB LABORATORY UNIT RH POS [facility] BB LABORATORY Crossmatch Interpretation Compatible [facility] LABORATORY Dispense Status RE [facility] BB LABORATORY Blood Expiration Date [facility] LABORATORY Blood Type Barcode 6200 [facility] BB LABORATORY Product Code [id number] [facility] BB LABORATORY Unit Number [id number] [facility] BB LABORATORY UNIT ABO A [facility] BB LABORATORY UNIT RH POS [facility] BB LABORATORY Crossmatch Interpretation Compatible [facility] BB LABORATORY Dispense Status RE [facility] BB LABORATORY Blood Expiration Date [facility] LABORATORY Blood Type Barcode 6200 [facility] BB LABORATORY Other Topography unknown / Unknown 04/26/2022 9:25 AM EST Edward BRICE BLOOD BANK PRODUCT ORDERABLES E dited Result - Final [facility] BB LABORATORY
[address] [place] [address], * (ABNORMAL) POC Glucose Once (04/28/2022 7:43 AM EST) Glucose 138(H) 70 - 130 mg/dL 04/28/2022 7:49 AM EST [facility]OR[facility] Comment:Meter: [id number] Op erator: [id number] Bri Sue Blood 04/28/2022 7:43 AM EST 04/28/2022 7:49 AM EST Nile Muse MD POINT OF CARE TEST ORDERABLES F inal Result Performing Organization Address City/[facility]/ZIP Co de Phone Number [facility] LABORATORY
[address] [place] [address], [place] [phone] * POC Glucose Once (04/27/2022 5:00 PM EST) Glucose 107 70 - 130 mg/dL 04/27/2022 5:11 PM EST [facility] Comment:Meter: [id number] Op erator: [id number] Bri Sue Blood 04/27/2022 5:00 PM EST 04/27/2022 5:11 PM EST Nile Muse MD POINT OF CARE TEST ORDERABLES F inal Result Performing Organization Address [facility] Co de Phone Number [facility] LABORATORY
[address] [place] [address], [place] [phone] * (ABNORMAL) POC Glucose Once (04/27/2022 11:31 AM EST) Glucose 151(H) 70 - 130 mg/dL 04/27/2022 11:49 AM EST [facility] Comment:Meter: [id number] Op erator: [id number] Bri Sue Blood 04/27/2022 11:3 1 AM EST 04/27/2022 11:49 AM EST Nile Muse MD POINT OF CARE TEST ORDERABLES F inal Result Performing Organization Address City/[facility] Co de Phone Number [facility] LABORATORY
[address] [place] [address], [place] [phone] * CT Angiogram Abdomen Pelvis (04/27/2022 9:43 [...] by Santo Foster MD. Brian Curtis MD [facility] CT ORDERABLES Final Result * (ABNORMAL) Hemoglobin & Hematocrit, Blood (04/27/2022 8:47 AM EST) Hemoglobin 10.7(L) 12.0 - 15.9 g/dL 04/27/2022 9:03 AM EST [facility] LAB[facility] Hematocrit 32.6(L) 34.0 - 46.6 % 04/27/2022 9:03 AM EST [facility] Blood Line / Unknown 04/27/2022 8: 47 AM EST 04/27/2022 8:54 AM EST Brian Curtis MD LAB BLOOD ORDERABLES Fi nal Result Performing Organization Address [facility] de Phone Number [facility] LABORATORY
[address] [place] [address], * (ABNORMAL) POC Glucose Once (04/27/2022 7:28 AM EST) Glucose 177(H) 70 - 130 mg/dL 04/27/2022 7:30 AM EST [facility] Comment:Meter: [id number] Op erator: [id number] Bri Sue Blood 04/27/2022 7:28 AM EST 04/27/2022 7:30 AM EST Nile Muse MD POINT OF CARE TEST ORDERABLES F inal Result Performing Organization Address [facility] de Phone Number [facility] LABORATORY
[address] [place] [address], * Phosphorus (04/27/2022 3:38 AM EST) Phosphorus 2.7 2.5 - 4.5 mg/dL 04/27/2022 4:51 AM EST [facility] Blood Line / Unknown 04/27/2022 3: 38 AM EST 04/27/2022 4:08 AM EST Brian Curtis MD LAB BLOOD ORDERABLES Fi nal Result Performing Organization Address [facility] de Phone Number [facility] LABORATORY
[address] [place] [address], * Magnesium (04/27/2022 3:38 AM EST) Magnesium 1.8 1.6 - 2.4 mg/dL 04/27/2022 4:51 AM EST [facility] Blood Line / Unknown 04/27/2022 3: 38 AM EST 04/27/2022 4:08 AM EST us Brian Curtis MD LAB BLOOD ORDERABLES Fi nal Result Performing Organization Address City/[facility]/ZIP Co de Phone Number [facility] LABORATORY
[address] [place] [address], * Calcium, Ionized (04/27/2022 3:38 AM EST) Ionized Calcium 1.29 1.12 - 1.32 mmol/L 04/27/2022 4:52 AM EST [facility] Blood Line / Unknown 04/27/2022 3: 38 AM EST 04/27/2022 4:08 AM EST Brian Curtis MD LAB BLOOD ORDERABLES Fi nal Result Performing Organization Address [facility] de Phone Number [facility] LABOR[facility]
[address] [place] [address], * (ABNORMAL) Basic Metabolic Panel (04/27/2022 3:38 AM EST) Glucose 177(H) 65 - 99 mg/dL 04/27/2022 4:51 AM EST [facility] BUN 21 8 - 23 mg/dL 04/27/2022 4:51 AM EST [facility] Creatinine 0.79 0.57 - 1.00 mg/dL 04/27/2022 4:51 AM EST [facility] Sodium 136 136 - 145 mmol/L 04/27/2022 4:51 AM EST [facility] Potassium 4.4 3.5 - 5.2 mmol/L 04/27/2022 4:51 AM EST [facility] Comment:Slight hemolysis det ected by analyzer. Results may be affected. Chloride 106 98 - 107 mmol/L 04/27/2022 4:51 AM EST [facility] CO2 20.0(L) 22.0 - 29.0 mmol/L 04/27/2022 4:51 AM EST [facility] Calcium 8.8 8.6 - 10.5 mg/dL 04/27/2022 4:51 AM EST [facility] BUN/Creatinine Ratio 26.6(H) 7.0 - 25.0 04/27/2022 4:51 AM EST [facility] Anion Gap 10.0 5.0 - 15.0 mmol/L 04/27/2022 4:51 AM EST [facility] eGFR 80.1 >60.0 mL/min/1. 73 04/27/2022 4:51 AM EST [facility] Comment:National Kidney Foun dation and [place] Society of Nephrology (ASN) Task Force recommended calculation based on the Chronic Kidney Disease Epidemiology Collaboration (CKD-EPI) equation refit without adjustment for race. Blood Line / Unknown 04/27/2022 3: 38 AM EST 04/27/2022 4:08 AM EST [facility] LABORATORY - 04/27/2022 4:51 AM EST GFR Normal >60 Chronic Kidney Disease <60 Kidney Failure <15 The GFR formula is only valid for adults with stable renal function between ages 18 and 70. Yudelka Maxwell PA-C LAB BLOOD ORDERABLES Final R esult [facility] LABORATORY
[address] [place] [address], * (ABNORMAL) CBC (No Diff) (04/27/2022 3:38 AM EST) WBC 10.37 3.40 - 10.80 10*3/mm3 04/27/2022 4:14 AM EST [facility] RBC 3.29(L) 3.77 - 5.28 10*6/mm3 04/27/2022 4:14 AM EST [facility] Hemoglobin 10.0(L) 12.0 - 15.9 g/dL 04/27/2022 4:14 AM EST [facility] Hematocrit 31.0(L) 34.0 - 46.6 % 04/27/2022 4:14 AM [facility] LABORATORY MCV 94.2 79.0 - 97.0 fL 04/27/2022 4:14 AM EST [facility] LAB[facility] MCH 30.4 26.6 - 33.0 pg 04/27/2022 4:14 AM [facility] LABORATORY MCHC 32.3 31.5 - 35.7 g/dL 04/27/2022 4:14 AM EST [facility] RDW 14.6 12.3 - 15.4 % 04/27/2022 4:14 AM [facility] LABORATORY RDW-SD 51.0 37.0 - 54.0 fl 04/27/2022 4:14 AM [facility] LABORATORY MPV 11.1 6.0 - 12.0 fL 04/27/2022 4:14 AM [facility] LABORATORY Platelets 181 140 - 450 10*3/mm3 04/27/2022 4:14 AM [facility] LABORATORY Blood Line / Unknown 04/27/2022 3: 38 AM EST 04/27/2022 4:03 AM EST Yudelka Maxwell PA-C LAB BLOOD ORDERABLES Final R esult [facility] LABORATORY
[address] [place] [address], * EEG Monitoring Nonintracranial Surgery (04/26/2022 2:10 PM EST) Impressions Scar Rodriguez MD - 04/26/2022 3:03 PM EST Uneventful intraoperative monitoring This report is transcribed using the [employer] dictation system. ?? Narrative Scar Rodriguez MD [...] are seen during this intraoperative monitoring study Nile Muse MD NEUROLOGY ORDERABLES Final Resu lt * XR [place] OR Procedure (04/26/2022 2:10 PM EST) Nile Muse MD IMG DIAGNOSTIC IMAGING ORDERABL ES Final Result * (ABNORMAL) POC Activated Clotting Time (04/26/2022 1:39 PM EST) Activated Clotting Time 219(H) 82 - 152 Seconds 04/26/2022 7:53 PM EST [facility] LAB[facility] Comment:Serial Number: [id number] 2Operator: [id number] Blood 04/26/2022 1:39 PM EST 04/26/2022 7:53 PM EST Nile Muse MD POINT OF CARE TEST ORDERABLES F inal Result [facility] LABORATORY
[address] [place] [address], * EEG AWAKE OR ASLEEP PORTABLE (04/26/2022 9:30 AM EST) Impressions NEUROLOGY - 04/26/2022 2:58 PM EST This study is adequate for intraoperative monitoring This report is transcribed using the Neurosearchation system. ?? Narrative NEUROLOGY - 04/26/2022 2:58 [...] ORDERABLES Final Resu lt Performing Organization Address City/[facility] Co de Phone Number NEUROLOGY * Type & Screen (04/26/2022 8:45 AM EST) ABO Type A 04/26/2022 9:56 AM EST [facility] BB LABORATORY RH type Positive 04/26/2022 9:56 AM EST [facility] LABORATORY Antibody Screen Negative 04/26/2022 9:56 AM EST [facility] LABORATORY T&S Expiration Date 04/29/2022 11:59:59 PM 04/26/2022 9:56 AM EST [facility] LABORAT[facility] Blood 04/26/2022 8:45 AM EST 04/26/2022 9:25 AM EST Riddhi Jarvis DO BLOOD BANK TEST ORDERABLES Arun faheem Result - Final Performing Organization Address City/[facility]/ZIP Co de Phone Number [facility] BB LABORATORY
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 ceFAZolin in dextrose (ANCEF) IVPB solution 2 g 2 g, Intravenous, Administer over 30 Minutes, Every 8 Hours, First dose on Fri04/26/22 at 2100, For 2 doses, Time first dose from pre-op dose. Caution: Look alike/sound alike drug alert, Indications: Surgical ProphylaxisIndications:Surgical Prophylaxis New Bag 04/27/2022 5:08 AM EST 2 g New Bag 04/26/2022 9:00 PM EST 2 g dextrose (D50W) (25 g/50 mL) IV injection [...] Alert, Is not NPO, Can safely swallow. famotidine (PEPCID) tablet 20 mg 20 mg, Oral, Once, On Fri04/26/22 at 0811, For 1 dose Given 04/26/2022 9:10 AM EST 20 mg fentaNYL citrate (PF) (SUBLIMAZE) injection 50 mcg 50 mcg, Intravenous, Every 5 Minutes PRN, Moderate Pain, Starting on Fri04/26/22 at 1425, For 5 doses, If given for pain, use the following pain scale: Mild Pain = Pain Score of 1-3, CPOT 1-2 Moderate Pain = Pain Score of 4-6, CPOT 3-4 Severe Pain = Pain Score of 7-10, CPOT 5-8 Given 04/26/2022 3:13 PM EST 50 mcg glucagon (human recombinant) (GLUCAGEN DIAGNOSTIC) injection 1 [...] AM EST 2 Units Le ft Arm iopamidol (ISOVUE-370) 76 % injection 100 mL 100 mL, Intravenous, Once in Imaging, On Fri04/27/22 at 1030, For 1 dose Given 04/27/2022 9:41 AM EST 100 mL lactated ringers infusion 9 mL/hr, Intravenous, Continuous, Starting on Fri04/26/22 at 0811, May switch to NS IV at KVO if renal / if indicated Restarted 04/26/2022 [...] Pain Score of 7-10, CPOT 5-8 lidocaine PF 1% (XYLOCAINE) injection 0.5 mL 0.5 mL, Injection, Once As Needed, IV Start, Starting on Fri04/26/22 at 0809, For 1 dose Given 04/26/2022 9:09 AM EST 0.5 mL Magnesium Sulfate 2 gram / 50mL [...] First dose on 04/27/22 at 0900, {SPC} Given 04/28/2022 8:38 AM EST 5 mg Given 04/27/2022 8:55 AM EST 5 mg mupirocin (BACTROBAN) 2 % nasal ointment 1 application 1 application , Each Nare, Every 12 Hours, First dose on Fri04/26/22 at 0811, For 2 doses, Apply ?? tube (smaller amount may be sufficient for pediatric/ patients) in each nare. Press sides of nose together and gently massage for 1 minute to spread the ointment throughout the inside of the nostrils {BKC}Indications:Thoracic aortic aneurysm without rupture, unspecified part Given 04/26/2022 9:10 AM EST 1 application niCARdipine (CARDENE) 25mg in 250mL NS infusion [...] dose on Fri04/27/22 at 0900 Given 04/28/2022 8:39 AM EST [...] Given 04/27/2022 8:56 AM EST 10 mg scopolamine patch 1 mg/72 hr 1 patch, Transdermal, Administer over 72 Hours, Every 72 Hours, First dose on Fri04/26/22 at 1110, Do not apply if patient older than 65 or has history of glaucoma. {BKC} Medication Applied 04/26/2022 11:15 AM EST 1 patch Behind Left Ear sodium chloride 0.45 % infusion 100 mL/hr, Intravenous, Continuous, Starting on Fri04/26/22 at 1447 New Bag 04/26/2022 6:37 PM EST 100 mL/hr 100 mL/hr vitamin B-12 (CYANOCOBALAMIN) tablet 500 mcg 500 [...] Vazquez RN) 0838 (Given - Provider: Terri Vazquez, CRISTOBAL) ceFAZolin in dextrose (ANCEF) IVPB solution 2 g (COMPLETED) 2 g, Intravenous, Administer over 30 Minutes, Once, On Fri04/26/22 at 0811, For 1 dose, Administer within 1 hour of surgical incision. Redose 4 hours from pre-op dose if procedure ongoing or >1.5 L blood loss. Caution: Look alike/sound alike drug alert, Indications: Surgical Prophylaxis 1254 (Given - Provider: Brandon Lamas CAN INSPECTOR) ceFAZolin in dextrose (ANCEF) IVPB solution 2 g (COMPLETED) 2 g, Intravenous, Administer over 30 Minutes, Every 8 Hours, First dose on Fri04/26/22 at 2100, For 2 doses, Time first dose from pre-op dose. Caution: Look alike/sound alike drug alert, Indications: Surgical Prophylaxis 2100 (New Bag - Provider: Luis Barnes, RN) 0508 (New Bag - Provider: Luis Barnes RN) famotidine (PEPCID) tablet 20 mg (COMPLETED) 20 mg, Oral, Once, On Fri04/26/22 at 0811, For 1 dose 0910 (Given - Provider: Joleen Sosa RN) Insulin Lispro (humaLOG) injection 0-7 Units 0-7 Units, Subcutaneous, 3 Times Daily Before Meals, First dose on 04/27/22 at 0730, Correction - Low Dose. Less [...] met) 0753 (Not Given - Provider: Terri Vazquez RN - Reason: Order parameters not met) iopamidol (ISOVUE-370) 76 % injection 100 mL (COMPLETED) 100 mL, Intravenous, Once in Imaging, On 04/27/22 at 1030, For 1 dose 0941 (Given [...] Vazquez RN) 0839 (Given - Provider: Terri Vazqeuz RN) potassium chloride (MICRO-K) CR capsule 20 mEq 20 mEq, Oral, Daily, First dose on 04/27/22 at 0900 0856 (Given - Provider: Terri Vazquez, CRISTOBAL) 0838 (Given - Provider: Terri Vazquez RN) [...] than 65 or has history of glaucoma. {BKC} 1115 (Medication Applied - Provider: Joleen Sosa [...] drug alert 1836 (Hold - Provider: Katarina Sorenson RN - Reason: Order parameters not met) [...] - Provider: Luis Barnes, CRISTOBAL) Magnesium Sulfate 2 gram Bolus, followed by [...] complete. documented in this encounter Care Teams Tone Artist Apprentice Relationship Specialty Start Date End Date Talon Barragan MD [address] [place] [address] [place] [address] PCP - General Family Medicine 03/20/22 documented as of this encounter
--- OUTSIDE RECORDS SUMMARY | 2024-05-04 22:48 | XMS_ITS | Encounter Summary ---
Author Organization [facility] Address [address] [place] [address] Care Team Providers Care Christian Science Nurse Name Role Phone Talon Barragan MD Primary Care Provider Reason for Visit * Auth/Cert (Routine) Specialty Diagnoses / Procedures Referred By Heather santos Referred To Contact Diagnoses Thoracic aortic aneurysm without rupture, unspecified part Thoracic aortic aneurysm without rupture, unspecified part [I71.20] Procedures OH ENDOVASC TAA REINCL SUBCL OH BYPASS GRAFT OTHR,CAROT-SUBCL THORACIC AORTAGRAM, POSSIBLE TEVAR, POSSIBLE CAROTID SUBCLAVIAN BYPASS Referral ID Status Reason Start Date Expiration Date Visits Re quested Visits Authorized [id number] 1 1 Encounter Details Date Type Department Care Team (Latest Contact Info) Description 04/26/2022 9:05 AM EST Anesthesia Event Converted [facility] ANESTHESIA [address] [place] [address] Social History Tobacco Use Types Packs/Day Years Used Date Smoking Tobacco: Never Smokeless Tobacco: Never Alcohol Use Standard Drinks/Week Comments Yes 2 (1 standard drink = 0.6 oz pur e alcohol) social Education Answer Date Recorded Help with school or training? Not on file Preferred Language Northern Irish 04/22/2022 Comments No Sex and Gender Information Value Date Recorded Sex Assigned at Not on file Legal Sex Female 1:29 PM EDT Gender Identity Not on file Sexual Orientation Not on file documented as of this encounter Plan of Treatment Upcoming Encounters Date Type Department Care Team (Late st Contact Info) Description 07/29/2024 10:45 AM EST Office Visit [facility] CARDIOLOGY [address] [facility] [address] [place] [address] Goyo Khan MD [address] [facility] [address] [place] [address] 09/02/2024 11:30 AM EDT Office Visit [facility] CARDIOTHORACIC SURGERY [address] [facility] [address] [place] [address] Dee Jaimes APRN [address] [facility] [address] [place], [place] [id number] documented as of this encounter Procedures Procedure Name Priority Date/Time Associated Diagnosis Comments ANESTHESIA ARTERIAL LINE Routine 04/26/2022 9:04 AM EST documented in this encounter Results * Arterial Line (04/26/2022 9:04 AM EST) Narrative Riddhi Jarvis DO - 04/26/2022 9:04 AM EST Riddhi Jarvis DO ? 04/26/2022 ??9:04 AM Arterial Line Patient reassessed immediately prior to procedure Patient location during procedure: pre-op Line placed for hemodynamic monitoring. Performed By Anesthesiologist: Riddhi Jarvis DO Preanesthetic Checklist Completed: patient identified, IV checked, site marked, risks and benefits discussed, surgical consent, monitors and equipment checked, pre-op evaluation and timeout performed Arterial Line Prep ?? Stockroom Coordinator: cap, gloves and sterile barriers Prep: ChloraPrep Patient monitoring: blood pressure monitoring, continuous pulse oximetry and EKG Arterial Line Procedure Laterality:left Location: ??radial artery Catheter size: 20 G Guidance: ultrasound guided and palpation technique Number of attempts: 1 Successful placement: yes Post Assessment Dressing Type: line sutured, occlusive dressing applied, secured with tape and wrist guard applied. Complications no Circ/Move/Sens Assessment: normal and unchanged. Patient Tolerance: patient tolerated the procedure well with no apparent complications us Riddhi Jarvis DO ANESTHESIA ORDERABLES Final Re sult documented in this encounter Visit Diagnoses Not on filedocumented in this encounter Care Teams Christian Science Nurse Relationship Specialty Start Date End Date Talon Barragan MD [address] [facility] [address] [facility] [address] [place] [address] PCP - General Family Medicine 03/20/22 documented as of this encounter
--- OUTSIDE RECORDS SUMMARY | 2024-05-04 22:48 | XMS_ITS | Encounter Summary ---
Author Organization [facility] Address [address] [place] [address] Care Team Providers Care Hotel Supplies Salesperson Name Role Phone Talon Barragan MD Primary Care Provider Encounter Details Date Type Department Care Team (Late st Contact Info) Description 05/08/2022 Readmission Management [facility] NURSE CALL CENTER [address] [place] [phone] Tayla Hunter LPN Social History Tobacco Use Types Packs/Day Years Used Date Smoking Tobacco: Never Smokeless Tobacco: Never Alcohol Use Standard Drinks/Week Comments Yes 2 (1 standard drink = 0.6 oz pur e alcohol) social Education Answer Date Recorded Help with school or training? Not on file Preferred Language Palestinian 04/22/2022 Comments No Sex and Gender Information Value Date Recorded Sex Assigned at Not on file Legal Sex Female 1:29 PM EDT Gender Identity Not on file Sexual Orientation Not on file documented as of this encounter Miscellaneous Notes * Outreach Note - Tayla Hunter LPN - 05/08/2022 8:[address] Surgery Week 2 Survey Flowsheet Row Responses [facility] Does the patient have one of the following disease processes/diagnoses(primary or secondary)? Cardiothoracic surgery Week 2 attempt successful? No Unsuccessful attempts Attempt 1 TAYLA Messer - Licensed Nurse documented in this encounter Plan of Treatment Upcoming Encounters Date Type Department Care Team (Late st Contact Info) Description 07/29/2024 10:45 AM EST Office Visit [facility] CARDIOLOGY [address] [facility] [address] [place] [address] Goyo Khan MD [address] [facility] [address] [place] [address] 09/02/2024 11:30 AM EDT Office Visit [facility] CARDIOTHORACIC SURGERY [address] [facility] [address] [place] [phone] Dee Jaimes APRN [address] [facility] [address] [place] [address] documented as of this encounter Visit Diagnoses Not on filedocumented in this encounter Care Teams Hotel Supplies Salesperson Relationship Specialty Start Date End Date Talon Barragan MD [address] [facility] [address] [place] [address] PCP - General Family Medicine 03/20/22 documented as of this encounter
--- OUTSIDE RECORDS SUMMARY | 2024-05-04 22:48 | XMS_ITS | Encounter Summary ---
Author Organization [facility] yste Address [address] [place] [address] Care Team Providers Care Sound Tester Name Role Phone Talon Barragan MD Primary Care Provider Encounter Details Date Type Department Care Team (Late st Contact Info) Description 05/09/2022 Telephone [facility] CARDIOLOGY [address] [facility] [address] [place] [address] Keesha Claire, FINANCIAL SUPERVISOR [address] [facility] [address] [address] [place] [address] Social History Tobacco Use Types Packs/Day Years Used Date Smoking Tobacco: Never Smokeless Tobacco: Never Alcohol Use Standard Drinks/Week Comments Yes 2 (1 standard drink = 0.6 oz pur e alcohol) social Education Answer Date Recorded Help with school or training? Not on file Preferred Language Zimbabwean 04/22/2022 Comments No Sex and Gender Information Value Date Recorded Sex Assigned at Not on file Legal Sex Female 1:29 PM EDT Gender Identity Not on file Sexual Orientation Not on file documented as of this encounter Miscellaneous Notes * Telephone Encounter - Anika Garcia RN - 05/10/2022 9:07 AM EST Called pt and gave KS recommendations above. Pt verbalizes understanding and agreeable to plan. * Telephone Encounter - Keesha Claire APRN - 05/10/2022 8:05 AM EST Please have her cut her Ziac in half and continue to monitor blood pressure and call back next weekwith readings. Thanks! * Telephone Encounter - Anika Garcia RN - 05/09/2022 3:45 PM EST Patient called, had AAA sten with Dr. Muse 04/26/22. BP has been running 86-90s/50-60s HR 63-84 Pt reports fatigue, occasional dizziness. Denies chest pain, SOB, swelling. Meds up to date in Epic. Please advise. documented in this encounter Plan of Treatment Upcoming Encounters Date Type Department Care Team (Late st Contact Info) Description 07/29/2024 10:45 AM EST Office Visit [facility] CARDIOLOGY [address] [facility] [address] [place] [address] Goyo Khan MD [address] [facility] [address] [place] [address] 09/02/2024 11:30 AM EDT Office Visit [facility] CARDIOTHORACIC SURGERY [address] [facility] [address] [place] [address] Dee Jaimes APRN [address] [facility] [address] [place] [address] documented as of this encounter Visit Diagnoses Not on filedocumented in this encounter Care Teams Sound Tester Relationship Specialty Start Date End Date Talon Barragan MD [address] [facility] [address] [place] [address] PCP - General Family Medicine 03/20/22 documented as of this encounter
--- OUTSIDE RECORDS SUMMARY | 2024-05-04 22:48 | XMS_ITS | Encounter Summary ---
Author Organization [facility]stem Address [address] [place] [address] Care Team Providers Care Clinical Specialist Medical Device Name Role Phone Talon Barragan MD Primary Care Provider Encounter Details Date Type Department Care Team (Late st Contact Info) Description 05/14/2022 Readmission Management [facility] NURSE CALL CENTER [address] [place] [phone] Leland Aponte, RN Social History Tobacco Use Types Packs/Day [...] or training? Not on file Preferred Language Croatian 04/22/2022 Comments No Sex and Gender Information Value Date Recorded Sex Assigned at Not on file Legal Sex Female 1:29 PM EDT Gender Identity Not on file Sexual Orientation Not on file documented as of this encounter Miscellaneous Notes * Outreach Note - Leland Aponte, RN - 05/14/2022 11:[address] Surgery Week 3 Survey Flowsheet Row Responses [facility] patient discharged from? [place] Does the patient have one of the following disease processes/diagnoses(primary or secondary)? Cardiothoracic surgery Week 3 attempt successful? No Unsuccessful attempts Attempt 1 Revoke Readmitted LELAND Trejo - Registered Nurse documented in this encounter Plan of Treatment Upcoming Encounters Date Type Department Care Team (Late st Contact Info) Description 07/29/2024 10:45 AM EST Office Visit [facility] CARDIOLOGY [address] [facility] [address] [place] [address] Goyo Khan MD [address] [facility] [address] [place] [address] 09/02/2024 11:30 AM EDT Office Visit [facility] CARDIOTHORACIC SURGERY [address] [facility] [address] [place] [address] Dee Jaimes APRN [address] [facility] [address] [place] [address] documented as of this encounter Visit Diagnoses Not on filedocumented in this encounter Care Teams Clinical Specialist Medical Device Relationship Specialty Start Date End Date Talon Barragan MD [address] [facility] [address] [place] [address] PCP - General Family Medicine 03/20/22 documented as of this encounter
--- OUTSIDE RECORDS SUMMARY | 2024-05-04 22:48 | XMS_ITS | Encounter Summary ---
Author Organization [facility] ystem Address [address] [place] [address] Care Team Providers Care Panel Laminator Name Role Phone Talon Barragan MD Primary Care Provider Encounter Details Date Type Department Care Team (Late st Contact Info) Description 04/28/2022 Readmission Management [facility] NURSE CALL CENTER [address] [place] [phone] Norma Palacios RN Social History Tobacco Use Types Packs/Day Years Used Date Smoking Tobacco: Never Smokeless Tobacco: Never Alcohol Use Standard Drinks/Week Comments Yes 2 (1 standard drink = 0.6 oz pur e alcohol) social Education Answer Date Recorded Help with school or training? Not on file Preferred Language Georgian 04/22/2022 Comments No Sex and Gender Information Value Date Recorded Sex Assigned at Not on file Legal Sex Female 1:29 PM EDT Gender Identity Not on file Sexual Orientation Not on file documented as of this encounter Miscellaneous Notes * Outreach Note - Norma Palacios RN - 04/28/2022 8:39 PM CST Prep Survey Flowsheet Row [facility] score < 7 ? No Emergency Room discharge w/ pulse ox? No Eligibility Readm Mgmt Discharge diagnosis TEVAR Does the patient have one of the following disease processes/diagnoses(primary or secondary)? Cardiothoracic surgery Does the patient have Home health ordered? No Is there a DME ordered? No Prep survey completed? Yes NORMA Dorman - Registered Nurse documented in this encounter Plan of Treatment Upcoming Encounters Date Type Department Care Team (Late st Contact Info) Description 07/29/2024 10:45 AM EST Office Visit [facility] CARDIOLOGY [address] [facility] [address] [place] [address] Goyo Khan MD [address] [facility] [address] [place] [address] 09/02/2024 11:30 AM EDT Office Visit [facility] CARDIOTHORACIC SURGERY [address] [facility] [address] [place] [address] Dee Jaimes TRAVERTINE INSTALLER [address] [facility] [address] [place] [address] documented as of this encounter Visit Diagnoses Not on filedocumented in this encounter Care Teams Panel Laminator Relationship Specialty Start Date End Date Talon Barragan MD [address] [facility] [address] [facility] [address] [place] [address] PCP - General Family Medicine 03/20/22 documented as of this encounter
--- OUTSIDE RECORDS SUMMARY | 2024-05-04 22:48 | XMS_ITS | Encounter Summary ---
[facility] [address] [place] [address] Care Team Providers Care Air Technician Name Role Phone Talon Barragan MD Primary Care Provider Reason for Visit * Reason Comments Arm Pain * Auth/Cert (Routine) Specialty Diagnoses / Procedures Referred By Heather t Referred To Contact Diagnoses Brachial artery thrombosis Referral ID Status Reason Start Date Expiration Date Visits Re quested Visits Authorized [id number] 1 1 Encounter Details Date Type Department Care Team (Late st Contact Info) Description 05/15/2022 3:35 PM EST - 05/15/2022 6:19 PM EST Surgery [facility] OR [address] [place] [id number] Nile Muse MD RIGHT BRACHIAL ARTERY CUTDOWN AND EXPLORATION, KELLEY THROMBOECTOMY, RIGHT UPPER EXTREMITY ANTERIOGRAM [40899 (CPT??)] Social History Tobacco Use Types Packs/Day Years [...] Sign Reading Time Taken Comments Blood Pressure 143/70 05/15/2022 5:30 PM EST Pulse 68 05/15/2022 6:00 PM EST Temperature 36.9 ??C (98.4 ??F) 05/15/2022 5:00 PM ES T Respiratory Rate 18 05/15/2022 5:30 PM EST Oxygen Saturation 92% 05/15/2022 6:00 PM EST Inhaled Oxygen Concentration - - Weight 95.3 kg (210 lb) 05/14/2022 1:52 PM EST Height 167.6 cm (5' 6 ) 05/14/2022 1:52 PM EST Body Mass Index 33.89 05/14/2022 1:52 PM EST documented in this encounter Discharge Summaries * Victor Hugo Silver MD - 05/16/2022 4:07 PM EST Images from the original note were not included. [facility] Medicine Services DISCHARGE SUMMARY Patient Name: [...] 0.40 0.38 0.10* -- Lab 05/15/22 0403 05/14/22 1949 05/14/22 1700 05/14/22 1659 05/14/22 165 SODIUM 138 134* -- -- 137 POTASSIUM 4.0 3.9 -- -- 4.2 CHLORIDE 105 100 -- -- 103 CO2 23.0 25.0 -- -- 25.0 ANION GAP 10.0 9.0 -- -- 9.0 BUN 18 18 -- -- 19 CREATININE 0.88 0.81 0.90 0.90 0.86 EGFR 70.4 77.7 -- -- 72.3 GLUCOSE 129* 128* -- -- 119* CALCIUM 9.2 9.2 -- -- 9.6 Lab 05/14/22194805/14/22 1653 TOTAL PROTEIN 6.3 6.8 ALBUMIN 3.60 4.00 GLOBULIN 2.7 2.8 ALT (SGPT) 16 17 AST (SGOT) 20 15 BILIRUBIN 0.5 0.6 ALK PHOS 73 81 Lab 05/14/221904 PROTIME 13.3 INR 1.02 Lab 05/14/221948 ABO [...] Findings relayedto emergency room ordering physician by Edawrdo Price via the messaging system in the [...] ALBA ALBA 07/12/2022 10:00 AM Keesha Claire, LAYBOY TENDER [facility] ALBA ALBA Additional Instructions for [...] minutes on this discharge activity which included: [id number] with the patient, reviewing the data in [...] list. Patient: Juany Alarcon : 1950 Account: [id number] Admit Date: 05/14/2022 How to Respond to this query: a. Click New Note b. Answer query within the yellow box. c. Update the Problem List, if applicable. If you have any questions about this query contact me at: [phone]. : The patient underwent a TEVAR 04/26/22 and had right arm pain and coolness after. Imaging was concerning for brachial artery thrombosis. The patient was admitted on IV Heparin. Surgeon evaluation was concerning for [place] IIa acute limb ischemia with documentation of [...] list. Patient: Juany Alarcon : 1950 Account: [id number] Admit Date: 05/14/2022 How to Respond to this query: a. Click New Note b. Answer query within the yellow box. c. Update the Problem List, if applicable. If you have any questions about this query contact me at: [phone]. : This patient underwent TEVAR on 04/26/22. [...] Watts APRN - 05/16/2022 7:26 AM EST [facility] Cardiothoracic Surgery In-Patient Progress Note POD # [...] right upper extremity arteriogram Plan D/C on Eliquis Ambulate F/u in 2 weeks in office Caty Watts APRN 05/16/22 07:26 EST Cosigned by Nile Muse MD at 05/16/2022 5:43 PM EST Associated attestation - Nile Muse MD - 05/16/2022 5:43 PM EST I have reviewed this documentation and agree. Interviewed and examined this patient on rounds. Plan as above. Nile Muse M.D., R.P.V.I. 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 Cardiothoracic and Vascular Surgeon [facility] Nile Muse MD 05/15/22 08:55 EST documented in this encounter H&P Notes * Anitha Zelaya MD - 05/14/2022 7:28 PM EST Images from the original note were not included. [facility] Medicine Services HISTORY AND PHYSICAL Patient [...] Procedure: TEVAR; Surgeon: Nile Muse MD; Location: [facility]; Service: Vascular; Laterality: N/A; Fluoro: 7min 14 [...] Social History Social History Narrative Lives in [facility] Medications: Probiotic Product, Vitamin D3, [...] finalized on 05/14/2022 6:[address] Angiogram Upper Extremity Right Result [...] Admission Attestation I have performed an independent [id number] diagnostic evaluation including performing an independent physical examination as documented here. The documented plan of care above was reviewed and developed with the advanced business director (APC). Brief Summary Statement: Juany Alarcon is [...] s/p TEVAR on 04/26/[address] [facility] ER with weeks of worsening right arm [...] Procedure: TEVAR; Surgeon: Nile Muse MD; Location: [facility]; Service: Vascular; Laterality: N/A; Fluoro: 7min 14 [...] cm (66 ) 95.3 kg (210 lb) 05/14/22 135 Weight: 95.3 kg (210 lb) Exam General [...] - 1.30 mg/dL Final Comment: Serial Number: [id number]: [id number] 05/14/2022 0.86 0.57 - 1.00 mg/dL Final [...] mg, 650 mg, Rectal, Q4H PRN, Amanda Mcwilliams APRN ??? [START ON 05/15/2022] aspirin EC tablet 81 mg, 81 mg, Oral, Daily, Amanda Mcwilliams APRN ??? [START ON 05/15/2022] bisoprolol (ZEBeta) tablet 5 mg, 5 mg, Oral, Q24H, Amanda Mcwilliams APRN ??? heparin 56501 units/250 mL (100 units/mL) in 0.45 % NaCl infusion, 10.5 Units/kg/hr, Intravenous, Titrated, Ankit Mendoza PA-C, Last Rate: 10 mL/hr at 05/14/221951, 10.5 Units/kg/hr at 05/14/221951 ??? [START ON 05/15/2022] lactobacillus acidophilus (RISAQUAD) capsule 1 capsule, 1 capsule, Oral, Daily, Amanda Mcwilliams APRN ??? [START ON 05/15/2022] oxybutynin (DITROPAN) tablet 5 mg, 5 mg, Oral, Daily, Amanda Mcwilliams APRN ??? Pharmacy to Dose Heparin, , Does not apply, Continuous PRN, Ankit Mendoza PA-C ??? [START ON 05/15/2022] rosuvastatin (CRESTOR) tablet 10 mg, 10 mg, Oral, Daily, Mcwilliams, Amanda R, LAYBOY TENDER ??? sodium chloride 0.9 % flush 10 mL, 10 mL, Intravenous, Q12H, Amanda Mcwilliams, LAYBOY TENDER ??? sodium chloride 0.9 % flush 10 mL, 10 mL, Intravenous, PRN, Amanda Mcwilliams R, LAYBOY TENDER ??? sodium chloride 0.9 % infusion 40 mL, 40 mL, Intravenous, PRN, Amanda Mcwilliams R, LAYBOY TENDER ??? sodium chloride 0.9 % infusion, 50 mL/hr, Intravenous, Continuous, Amanda Mcwilliams R, LAYBOY TENDER Current Outpatient Medications Medication Instructions ??? aspirin [...] s/p TEVAR on 04/26/[address] [facility] ER with weeks of worsening right arm pain and cramping with absent RUE pulses and CTA with brachial artery occlusion concerning for [place] IIa acute limb ischemia. This is unlikely [...] Muse M.D., R.P.V.I. Cardiothoracic and Vascular Surgeon [facility] Nile Muse MD 05/14/22 21:00 EST [...] floral bag, 2 coats, eye glasses, phone kiln charger and clothes from closet . Spouse aware [...] TEVAR Right upper extremity acute limb ischemia [place] class IIa Thromboembolic occlusion of right brachial artery Postoperative Diagnosis: Same Procedure(s): 1. Right brachial artery cutdown and exploration 2. Kelley thrombectomy of right brachial artery and forearm arteries 3. Right upper extremity arteriogram Surgeon: Nile Muse M.D., R.P.V.I. Forestry Worker(s): Edward BRICE The presence and participation of the physician's assistant director of residence life was necessary for the successful completion of [...] Muse M.D., R.P.V.I. Cardiothoracic and Vascular Surgeon [facility] * Brief Op Note - Nile Muse MD - 05/15/2022 3:25 PM EST Juany Amado Agnes 05/15/2022 Pre-op Diagnosis: Thoracic aortic aneurysm status post TEVAR Right upper extremity acute limb ischemia [place] class IIa Thromboembolic occlusion of right brachial artery Post-Op Diagnosis Codes: Same Procedure(s): RIGHT BRACHIAL ARTERY CUTDOWN AND EXPLORATION, KELLEY THROMBOECTOMY, RIGHT UPPER EXTREMITY ANTERIOGRAM Surgeon(s): Nile Muse MD Anesthesia: Choice Staff: Contract Associate: Marylu Munoz, RN; Keysha Diallo, RN; Sabra Glaser, regional flatbed truck driverHat Brim Curler: Reece Fleming RT Scrub Person: Rudy Wild Forestry Worker: Edward Resendez PA Forestry Worker: Edwrad Resendez PA Estimated Blood Loss: minimal Urine [...] 0600 Findings: No appreciable thrombosis Complications: None Forestry Worker: Edward Resendez PA was responsible for performing the following activities: Retraction, Suction, Irrigation, Suturing,Closing and Placing Dressing and their skilled assistance was necessary for the success of this case. Nile Muse MD Date: 05/15/2022 Time: 20:15 EST documented in this encounter ED Notes * Ankit Mendoza PA-C - 05/14/2022 2:15 PM EST EMERGENCY DEPARTMENT ENCOUNTER Pt Name: Juany Alarcon Pt : 1950 Room Number: Date of encounter: 05/14/2022 PCP: Talon Barragan [...] Procedure: TEVAR; Surgeon: Nile Muse MD; Location: [facility]; Service: Vascular; Laterality: N/A; Fluoro: 7min 14 sec Dose: 2552mGy Contrast: Isovue 300- 110ml ??? SECTION 1990 ??? CHOLECYSTECTOMY 05/2004 ??? COLONOSCOPY ??? COMPLETE MASTECTOMY W/ SENTINEL NODE BIOPSY Left ??? KNEE SURGERY Right replacement ??? ORIF HIP FRACTURE Right spring ??? TONSILLECTOMY N/A ??? TOTAL KNEE ARTHROPLASTY Left 2018 left FAMILY HISTORY Family History Problem Relation [...] (has no administration in time range) heparin 38823 units/250 mL (100 units/mL) in 0.45 % [...] social conditions impacting care: Patient lives in [place], about a 2-hour drive - Shared decision [...] ??? Notify Provider Platelet Count Less Than 91649 ? ? Stop Infusion & Notify Provider [...] keep NPO, admit to hospitalist service OF :23 EST VITALS: BP - 102/77 HR - [...] Notes * Case Management/Social Work - Kellie Ervin, CRISTOBAL - 05/16/2022 2:23 PM EST Continued Stay Note [place] Patient Name: Juany Alarcon Today's Date: 05/16/2022 [...] she remains independent of ADLs - kellie [phone] Discharge Codes No documentation. Expected Discharge Date and Time Expected Discharge Date Expected Discharge Time May 16, 2022 Kellie Ervin RN * Case Management/Social Work - Jay Sorenson RN - 05/15/2022 11:30 AM EST Discharge Planning Assessment [facility] Patient Name: Juany Alarcon Today's Date: 05/15/2022 [...] the bedside. She lives with her in [facility]. 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 Psychosocial No documentation. Abuse/Neglect No documentation. Legal No documentation. Substance Abuse No documentation. Patient Forms No documentation. Jay Sorenson RN documented in this encounter Plan of Treatment Upcoming Encounters Date Type Department Care Team (Late st Contact Info) Description 07/29/2024 10:45 AM EST Office Visit [facility] CARDIOLOGY [address] [place] [id number] Goyo Khan MD [address] [facility] [address] [place] [address] 09/02/2024 11:30 AM EDT Office Visit [facility] CARDIOTHORACIC SURGERY [address] [facility] [address] [place] [address] Dee Jaimes APRN [address] [facility] [address] [place] [address] documented as of this encounter Procedures Procedure Name Priority Date/Time Associated Diagnosis Comments HEPARIN ANTI XA Timed 05/16/2022 2:14 PM EST PREPARE RBC Routine 05/16/2022 10:30 AM EST HEPARIN ANTI XA Timed 05/16/2022 1:34 AM EST XR [place] PROCEDURE Routine 05/15/2022 4:17 PM EST ID TEAEC W/WO PATCH GRAFT COMMON FEMORAL 05/15/2022 [...] * Heparin Anti-Xa (05/16/2022 2:14 PM EST) Pathologist [facility] Heparin Anti-Xa (UFH) 0.45 0.30 - 0.70 IU/ml 05/16/2022 2:58 PM EST [facility] Blood Venipuncture / Unknown 05/16/2022 2:14 PM EST 05/16/2022 2:31 PM EST Roque Dyer [facility] LAB BLOOD ORDERABLES Final Res ult Performing Organization Address City/[facility]/ZIP Co de Phone Number [facility]
[address] [place] [address], * Prepare RBC, 1 Units (05/16/2022 10:30 AM EST) Pathologist [facility] Product Code [id number] [facility] BB LABORATORY Unit Number [id number] [facility] ABO A [facility] BB LABORATORY UNIT RH POS [facility] BB LABORATORY Crossmatch Interpretation Compatible [facility] BB LABORATORY Dispense [facility] Blood Expiration Date [id number] [facility] BB LABORATORY Blood Type Barcode [address] [facility] BB LABORATORY Other Topography unknown / Unknown 05/14/2022 8:10 PM EST Caty Watts LAYBOY TENDER BLOOD BANK PRODUCT ORDERABLE S Edited Result - Final [facility]
[address] [place] [address], * Heparin Anti-Xa (05/16/2022 1:34 AM EST) Pathologist [facility] Heparin Anti-Xa (UFH) 0.30 0.30 - 0.70 IU/ml 05/16/2022 2:45 AM EST [facility] Blood Venipuncture / Unknown 05/16/2022 1:34 AM EST 05/16/2022 2:20 AM EST us Cuba Fisher [facility] LAB BLOOD ORDERABLES Final Res ult [facility]
[address] [place] [address], * XR [place] Procedure (05/15/2022 4:17 PM EST) Nile Muse MD IMG DIAGNOSTIC IMAGING ORDERABL ES Final Result * Heparin Anti-Xa (05/15/2022 10:40 AM EST) Pathologist [facility] Heparin Anti-Xa (UFH) 0.40 0.30 - 0.70 IU/ml 05/15/2022 11:44 AM EST [facility] Blood Venipuncture / Unknown 05/15/2022 10:40 AM EST 05/15/2022 11:19 AM EST Roque Dyer [facility] LAB BLOOD ORDERABLES Final Res ult [facility]
[address] [place] [address], * (ABNORMAL) CBC Auto Differential (05/15/2022 4:03 AM EST) Pathologist [facility] WBC 8.43 3.40 - 10.80 10*3/mm3 05/15/2022 4:19 AM [facility] RBC 3.54(L) 3.77 - 5.28 10*6/mm3 05/15/2022 4:19 AM [facility] Hemoglobin 10.8(L) 12.0 - 15.9 g/dL 05/15/2022 4:19 AM [facility] Hematocrit 33.2(L) 34.0 - 46.6 % 05/15/2022 4:19 AM [facility] MCV 93.8 79.0 - 97.0 fL 05/15/2022 4:19 AM [facility] MCH 30.5 26.6 - 33.0 pg 05/15/2022 4:19 AM [facility] MCHC 32.5 31.5 - 35.7 g/dL 05/15/2022 4:19 AM [facility] RDW 15.3 12.3 - 15.4 % 05/15/2022 4:19 AM [facility] RDW-SD 52.5 37.0 - 54.0 fl 05/15/2022 4:19 AM [facility] MPV 10.7 6.0 - 12.0 fL 05/15/2022 4:19 AM [facility] Platelets 190 140 - 450 10*3/mm3 05/15/2022 4:19 AM [facility] Neutrophil % 62.3 42.7 - 76.0 % 05/15/2022 4:19 AM [facility] Lymphocyte % 24.6 19.6 - 45.3 % 05/15/2022 4:19 AM [facility] Monocyte % 10.0 5.0 - 12.0 % 05/15/2022 4:19 AM [facility] Eosinophil % 1.8 0.3 - 6.2 % 05/15/2022 4:19 AM [facility] Basophil % 0.5 0.0 - 1.5 % 05/15/2022 4:19 AM [facility] Immature Grans % 0.8(H) 0.0 - 0.5 % 05/15/2022 4:19 AM [facility] Neutrophils, Absolute 5.26 1.70 - 7.00 10*3/mm3 05/15/2022 4:19 AM EST [facility] Lymphocytes, Absolute 2.07 0.70 - 3.10 10*3/mm3 05/15/2022 4:19 AM EST [facility] Monocytes, Absolute 0.84 0.10 - 0.90 10*3/mm3 05/15/2022 4:19 AM EST [facility] Eosinophils, Absolute 0.15 0.00 - 0.40 10*3/mm3 05/15/2022 4:19 AM [facility] Basophils, Absolute 0.04 0.00 - 0.20 10*3/mm3 05/15/2022 4:19 AM [facility] Immature Grans, Absolute 0.07(H) 0.00 - 0.05 10*3/mm3 05/15/2022 4:19 AM [facility] nRBC 0.0 0.0 - 0.2 /100 WBC 05/15/2022 4:19 AM [facility] Blood Line / Unknown 05/15/2022 4: 03 AM EST 05/15/2022 4:16 AM EST Ankit BRICE-Margo LAB BLOOD ORDERABLES Fin al Result [facility]
[address] [place] [address], * Heparin Anti-Xa (05/15/2022 4:03 AM EST) Heparin Anti-Xa (UFH) 0.38 0.30 - 0.70 IU/ml 05/15/2022 4:52 AM EST [facility] Blood Line / Unknown 05/15/2022 4: 03 AM EST 05/15/2022 4:16 AM EST Preston Manuel LAB BLOOD ORDERABLES Fin al Result [facility]
[address] [place] [address], * (ABNORMAL) Basic Metabolic Panel (05/15/2022 4:03 AM EST) Glucose 129(H) 65 - 99 mg/dL 05/15/2022 4:41 AM EST [facility] BUN 18 8 - 23 mg/dL 05/15/2022 4:41 AM EST [facility] Creatinine 0.88 0.57 - 1.00 mg/dL 05/15/2022 4:41 AM EST [facility] Sodium 138 136 - 145 mmol/L 05/15/2022 4:41 AM EST [facility] Potassium 4.0 3.5 - 5.2 mmol/L 05/15/2022 4:41 AM EST [facility] Chloride 105 98 - 107 mmol/L 05/15/2022 4:41 AM EST [facility] CO2 23.0 22.0 - 29.0 mmol/L 05/15/2022 4:41 AM EST [facility] Calcium 9.2 8.6 - 10.5 mg/dL 05/15/2022 4:41 AM EST [facility] BUN/Creatinine Ratio 20.5 7.0 - 25.0 05/15/2022 4:41 AM EST [facility] Anion Gap 10.0 5.0 - 15.0 mmol/L 05/15/2022 4:41 AM EST [facility] eGFR 70.4 >60.0 mL/min/1. 73 05/15/2022 4:41 AM EST [facility] Comment:National Kidney Foun dation and [place] Society of Nephrology (ASN) Task Force recommended calculation based on the Chronic Kidney Disease Epidemiology Collaboration (CKD-EPI) equation refit without adjustment for race. Blood Line / Unknown 05/15/2022 4: 03 AM EST 05/15/2022 4:14 AM EST Narrative [facility] - 05/15/2022 4:41 AM EST GFR Normal >60 Chronic Kidney Disease <60 Kidney Failure <15 The GFR formula is only valid for adults with stable renal function between ages 18 and 70. Amanda Mcwilliams LAYBOY TENDER LAB BLOOD ORDERABLES Final Result [facility]
[address] [place] [address], * Type & Screen (05/14/2022 7:49 PM EST) ABO Type A 05/14/2022 8:48 PM EST [facility] LABORATORY RH type Positive 05/14/2022 8:48 PM EST [facility] LABOR[facility] Antibody Screen Negative 05/14/2022 8:48 PM EST [facility] T&S Expiration Date 05/17/2022 11:59:59 PM 05/14/2022 8:48 PM EST [facility] LABORATORY Blood Line / Unknown 05/14/2022 7: 49 PM EST 05/14/2022 8:10 PM EST Ankit Mendoza PA-C BLOOD BANK TEST ORDERABL ES Edited Result - Final [facility] [place] [address], * (ABNORMAL) Comprehensive Metabolic Panel (05/14/2022 7:49 PM EST) Glucose 128(H) 65 - 99 mg/dL 05/14/2022 8:26 PM EST [facility] BUN 18 8 - 23 mg/dL 05/14/2022 8:26 PM EST [facility] Creatinine 0.81 0.57 - 1.00 mg/dL 05/14/2022 8:26 PM EST [facility] Sodium 134(L) 136 - 145 mmol/L 05/14/2022 8:26 PM [facility] Potassium 3.9 3.5 - 5.2 mmol/L 05/14/2022 8:26 PM [facility] Chloride 100 98 - 107 mmol/L 05/14/2022 8:26 PM [facility] CO2 25.0 22.0 - 29.0 mmol/L 05/14/2022 8:26 PM [facility] Calcium 9.2 8.6 - 10.5 mg/dL 05/14/2022 8:26 PM [facility] Total Protein 6.3 6.0 - 8.5 g/dL 05/14/2022 8:26 PM [facility] Albumin 3.60 3.50 - 5.20 g/dL 05/14/2022 8:26 PM [facility] ALT (SGPT) 16 1 - 33 U/L 05/14/2022 8:26 PM [facility] AST (SGOT) 20 1 - 32 U/L 05/14/2022 8:26 PM [facility] Alkaline Phosphatase 73 39 - 117 U/L 05/14/2022 8:26 PM [facility] Total Bilirubin 0.5 0.0 - 1.2 mg/dL 05/14/2022 8:26 PM [facility] Globulin 2.7 gm/dL 05/14/2022 8:26 PM [facility] Comment:Calculated Result A/G Ratio 1.3 g/dL 05/14/2022 8:26 PM [facility] BUN/Creatinine Ratio 22.2 7.0 - 25.0 05/14/2022 8:26 PM [facility] Anion Gap 9.0 5.0 - 15.0 mmol/L 05/14/2022 8:26 PM [facility] eGFR 77.7 >60.0 mL/min/1. 73 05/14/2022 8:26 PM [facility] Comment:National Kidney Foun dation and [place] Society of Nephrology (ASN) Task Force recommended calculation based on the Chronic Kidney Disease Epidemiology Collaboration (CKD-EPI) equation refit without adjustment for race. Blood Line / Unknown 05/14/2022 7: 49 PM EST 05/14/2022 8:13 PM EST [facility] - 05/14/2022 8:26 PM EST GFR Normal >60 Chronic Kidney Disease <60 Kidney Failure <15 The GFR formula is only valid for adults with stable renal function between ages 18 and 70. Sample[facility]-C LAB BLOOD ORDERABLES Fin al Result Performing Organization Address City/[facility]/ZIP Co de Phone Number [facility]
[address] [place] [address], * (ABNORMAL) aPTT (05/14/2022 7:05 PM EST) PTT 25.2(L) 60.0 - 90.0 seconds 05/14/2022 8:09 PM EST [facility] Blood Line / Unknown 05/14/2022 7: 05 PM EST 05/14/2022 7:49 PM EST [facility] - 05/14/2022 8:09 PM EST PTT = The equivalent PTT values for the therapeutic range of heparin levels at 0.3 to 0.5 U/ml are 60 to 70 seconds. [facility] LAB BLOOD ORDERABLES Fin al Result [facility]
[address] [place] [address], * Protime-INR (05/14/2022 7:05 PM EST) Protime 13.3 11.4 - 14.4 Seconds 05/14/2022 8:08 PM EST [facility] INR 1.02 0.84 - 1.13 05/14/2022 8:08 PM EST [facility] Blood Line / Unknown 05/14/2022 7: 05 PM EST 05/14/2022 7:49 PM EST Ankit Mendoza PA-C LAB BLOOD ORDERABLES Fin al Result Performing Organization Address City/[facility]/ZIP Co de Phone Number [facility]
[address] [place] [address], * (ABNORMAL) Heparin Anti-Xa (05/14/2022 7:05 PM EST) Heparin Anti-Xa (UFH) 0.10(L) 0.30 - 0.70 IU/ml 05/14/2022 8:09 PM EST [facility] Blood Line / Unknown 05/14/2022 7: 05 PM EST 05/14/2022 7:49 PM EST Ankit Mendoza PA-C LAB BLOOD ORDERABLES Fin al Result Performing Organization Address [facility] Co de Phone Number [facility]
[address] [place] [address], * CT Angiogram Chest (05/14/2022 5:33 PM [...] on 05/14/2022 6:45 PM by Edwardo Price. Ankit Mendoza PA-C IMG CT ORDERABLES Final Result * POCT, Creatinine (05/14/2022 5:00 PM EST) Creatinine 0.90 mg/dL [facility] Blood Preston Manuel DO POINT OF CARE TEST ORDER JOSE DAVID Final Result [facility]
[address] [place] [address], * POC Creatinine (05/14/2022 4:59 PM EST) Creatinine 0.90 0.60 - 1.30 mg/dL 05/14/2022 5:16 PM EST [facility] Comment:Serial Number: [id number]: [id number] Blood 05/14/2022 4:59 PM EST 05/14/2022 5:16 PM EST Preston Manuel DO POINT OF CARE TEST ORDER JOSE DAVID Final Result [facility]
[address] [place] [address], * (ABNORMAL) CBC Auto Differential (05/14/2022 4:53 PM EST) WBC 9.74 3.40 - 10.80 10*3/mm3 05/14/2022 5:13 PM EST [facility] RBC 3.78 3.77 - 5.28 10*6/mm3 05/14/2022 5:13 PM EST [facility] Hemoglobin 11.7(L) 12.0 - 15.9 g/dL 05/14/2022 5:13 PM EST [facility] Hematocrit 36.4 34.0 - 46.6 % 05/14/2022 5:13 PM EST [facility] MCV 96.3 79.0 - 97.0 fL 05/14/2022 5:13 PM EST [facility] MCH 31.0 26.6 - 33.0 pg 05/14/2022 5:13 PM EST [facility] MCHC 32.1 31.5 - 35.7 g/dL 05/14/2022 5:13 PM EST [facility] RDW 15.2 12.3 - 15.4 % 05/14/2022 5:13 PM EST [facility] RDW-SD 54.1(H) 37.0 - 54.0 fl 05/14/2022 5:13 PM [facility] MPV 10.6 6.0 - 12.0 fL 05/14/2022 5:13 PM EST [facility] Platelets 214 140 - 450 10*3/mm3 05/14/2022 5:13 PM [facility] Neutrophil % 66.0 42.7 - 76.0 % 05/14/2022 5:13 PM [facility] Lymphocyte % 22.3 19.6 - 45.3 % 05/14/2022 5:13 PM [facility] Monocyte % 8.9 5.0 - 12.0 % 05/14/2022 5:13 PM [facility] Eosinophil % 1.5 0.3 - 6.2 % 05/14/2022 5:13 PM [facility] Basophil % 0.4 0.0 - 1.5 % 05/14/2022 5:13 PM [facility] Immature Grans % 0.9(H) 0.0 - 0.5 % 05/14/2022 5:13 PM [facility] Neutrophils, Absolute 6.42 1.70 - 7.00 10*3/mm3 05/14/2022 5:13 PM [facility] Lymphocytes, Absolute 2.17 0.70 - 3.10 10*3/mm3 05/14/2022 5:13 PM [facility] Monocytes, Absolute 0.87 0.10 - 0.90 10*3/mm3 05/14/2022 5:13 PM [facility] Eosinophils, Absolute 0.15 0.00 - 0.40 10*3/mm3 05/14/2022 5:13 PM [facility] Basophils, Absolute 0.04 0.00 - 0.20 10*3/mm3 05/14/2022 5:13 PM [facility] Immature Grans, Absolute 0.09(H) 0.00 - 0.05 10*3/mm3 05/14/2022 5:13 PM [facility] nRBC 0.0 0.0 - 0.2 /100 WBC 05/14/2022 5:13 PM [facility] Blood Venipuncture / Unknown 05/14/2022 4:53 PM EST 05/14/2022 5:07 PM EST us Ankit Mendoza PA-C LAB BLOOD ORDERABLES Fin al Result [facility]
[address] [place] [address], * (ABNORMAL) Comprehensive Metabolic Panel (05/14/2022 4:53 PM EST) Glucose 119(H) 65 - 99 mg/dL 05/14/2022 5:33 PM EST [facility] BUN 19 8 - 23 mg/dL 05/14/2022 5:33 PM EST [facility] Creatinine 0.86 0.57 - 1.00 mg/dL 05/14/2022 5:33 PM EST [facility] Sodium 137 136 - 145 mmol/L 05/14/2022 5:33 PM EST [facility] Potassium 4.2 3.5 - 5.2 mmol/L 05/14/2022 5:33 PM EST [facility] Chloride 103 98 - 107 mmol/L 05/14/2022 5:33 PM EST [facility] CO2 25.0 22.0 - 29.0 mmol/L 05/14/2022 5:33 PM EST [facility] Calcium 9.6 8.6 - 10.5 mg/dL 05/14/2022 5:33 PM EST [facility] Total Protein 6.8 6.0 - 8.5 g/dL 05/14/2022 5:33 PM EST [facility] Albumin 4.00 3.50 - 5.20 g/dL 05/14/2022 5:33 PM EST [facility] ALT (SGPT) 17 1 - 33 U/L 05/14/2022 5:33 PM EST [facility] AST (SGOT) 15 1 - 32 U/L 05/14/2022 5:33 PM EST [facility] Alkaline Phosphatase 81 39 - 117 U/L 05/14/2022 5:33 PM EST [facility] Total Bilirubin 0.6 0.0 - 1.2 mg/dL 05/14/2022 5:33 PM EST [facility] Globulin 2.8 gm/dL 05/14/2022 5:33 PM EST [facility] Comment:Calculated Result A/G Ratio 1.4 g/dL 05/14/2022 5:33 PM EST [facility] BUN/Creatinine Ratio 22.1 7.0 - 25.0 05/14/2022 5:33 PM EST [facility] Anion Gap 9.0 5.0 - 15.0 mmol/L 05/14/2022 5:33 PM EST [facility] eGFR 72.3 >60.0 mL/min/1. 73 05/14/2022 5:33 PM EST [facility] Comment:National Kidney Foun dation and [place] Society of Nephrology (ASN) Task Force recommended calculation based on the Chronic Kidney Disease Epidemiology Collaboration (CKD-EPI) equation refit without adjustment for race. Blood Venipuncture / Unknown 05/14/2022 4:53 PM EST 05/14/2022 5:07 PM EST Narrative [facility] - 05/14/2022 5:33 PM EST GFR Normal >60 Chronic Kidney Disease <60 Kidney Failure <15 The GFR formula is only valid for adults with stable renal function between ages 18 and 70. Ankit Mendoza PA-C LAB BLOOD ORDERABLES Fin al Result [facility]
[address] [place] [address], * DUPLEX UPPER EXTREMITY ART/GRAFTS BILAT CAR [...] Diagnoses Not on filedocumented in this encounter Admitting Diagnoses Diagnosis Brachial [...] Given 05/15/2022 8:43 AM EST 5 mg iopamidol (ISOVUE-300) 61 % injection As Needed, Starting on Fri05/15/22 at 1618 Given 05/15/2022 4:18 PM EST 5 mL lactobacillus acidophilus (RISAQUAD) capsule 1 capsule [...] Given 05/16/2022 9:00 AM EST 10 mg sodium chloride 0.9 % flush 10 mL [...] mL/hr New Bag 05/15/2022 2:53 PM EST sodium chloride 1,000 mL with heparin (porcine) 10,000 Units mixture As Needed, Starting on Fri05/15/22 at 1524 Given 05/15/2022 3:24 PM EST documented in this encounter Active and Recently Administered Medications Times are shown in EST. Scheduled Medication Order 05/14/2022 05/15/2022 05/16/2022 apixaban (ELIQUIS) tablet 10 mg(Linked Group 1) 10 mg, Oral, Every 12 Hours Scheduled, First dose on Dagmar 05/16/22 at 1630, For 7 days, Tablet may be crushed and suspended in 60 mL of water or D5W and immediately delivered via NG tube., Indications: DVT/PE (active thrombosis) 1633 (Given - Provider: Mirna Shay RN) apixaban (ELIQUIS) tablet 5 mg(Linked Group 1) 5 mg, Oral, Every 12 Hours Scheduled, First dose on Dagmar 05/23/22 at 2100, Tablet may be crushed and [...] 0900 (Given - Provider: Mirna Shay RN) bisoprolol (ZEBeta) tablet 5 mg 5 [...] 1 dose 1322 (Given - Provider: Melissa Stewart, CRISTOBAL) heparin (porcine) injection 4,000 Units (COMPLETED) 4,000 [...] Provider: Georgie Mcmanus RN - Reason: NPO) 09 (Given - Provider: Mirna Shay RN) oxybutynin [...] Hours, First dose on Fri05/15/22 at 1400, {BK} 1358 (Medication Applied - Provider: Ritika Shay RN)1746 (Due: Medication Removed - Provider: IDANIA Bryson - Comment: Time automatically adjusted from order being discontinued) sodium chloride 0.9 % flush 10 mL 10 mL, Intravenous, Every 12 Hours Scheduled, First dose on Fri05/14/22 at 2130 2150 (Given - Provider: Zhanna Irby, CRISTOBAL) 0953 (Not Given - Provider: Georgie Mcmanus [...] Prophylaxis 2333 (New Bag - Provider: Jailyn Steward, RN) Continuous Medication Order 05/14/2022 05/15/2022 05/16/2022 heparin 44806 units/250 mL (100 units/mL) in 0.45 % NaCl infusion (CANCELED) 10.5 Units/kg/hr ? 95.3 kg (10.0065 mL/hr, rounded to 10 mL/hr), Intravenous, Titrated, Starting on Fri05/14/22 at 1905, Pharmacy dosing - Cardiac or Other NOT VTE - Boluses (with initial bolus) 1951 (New Bag - Provider: Huber Jenkins, CRISTOBAL) 1950 (New Bag - Provider: Sabra Long RN) lactated ringers infusion (CANCELED) 9 mL/hr, Intravenous, Continuous, Starting on Fri05/15/22 at 1323, May switch to NS IV at KVO if renal / if indicated 1453 (New Bag - Provider: Isabel Vaz CRNA - Comment: IVF to gravity) niCARdipine (CARDENE) [...] ONLY. Caution: Look alike/sound alike drug alert 163 (New Bag - Provider: Paco Macdonald RN) niCARdipine (CARDENE) 25mg in 250mL NS infusion [...] ONLY Caution: Look alike/sound alike drug alert 191 (New Bag - Provider: Jailyn Steward RN)1956 (Canceled Entry - Provider: Jailyn Steward RN)1957 (Rate/Dose Change - Provider: Jailyn Steward RN)2214 (Rate/Dose Change - Provider: Jailyn Steward RN)223 (New Bag - Provider: Jailyn Steward RN) 0347 (New Bag - Provider: Jailyn Steward, RN) sodium chloride 0.9 % infusion 50 mL/hr, Intravenous, Continuous, Starting on Fri05/14/22 at 2130 2150 (New Bag - Provider: Zhanna Irby RN) 1452 (Paused - Provider: Isabel Vaz CRNA - Comment: Switch to gravity)1453 (New Bag - Provider: Isabel Vaz CRNA - Comment: IVF to gravity; 200ml IVF remaining in IV bag) 0239 (New Bag - Provider: Jailyn Steward RN)0518 (Rate/Dose Verify - Provider: Jailyn Steward RN) [...] Needed, Line Care, Starting on Fri05/14/22 at 2038 sodium chloride 0.9 % infusion 40 mL [...] 5-8 documented in this encounter Care Teams Air Technician Relationship Specialty Start Date End Date Talon Barragan MD [address] [place] [address] [place] [address] PCP - General Family Medicine 03/20/22 documented as of this encounter
--- OUTSIDE RECORDS SUMMARY | 2024-05-04 22:48 | XMS_ITS | Encounter Summary ---
Author Organization [facility] y[facility] Address [address] [place] [address] Care Team Providers Care Gymnastics Coach Or Instructor Name Role Phone Talon Barragan MD Primary Care Provider Encounter Details Date Type Department Care Team (Late st Contact Info) Description 05/01/2022 Readmission Management [facility] [address] [place] [phone] Nicky Oakley, RN Social History Tobacco Use Types Packs/Day Years Used Date Smoking Tobacco: Never Smokeless Tobacco: Never Alcohol Use Standard Drinks/Week Comments Yes 2 (1 standard drink = 0.6 oz pur e alcohol) social Education Answer Date Recorded Help with school or training? Not on file Preferred Language Tajik 04/22/2022 Comments No Sex and Gender Information Value Date Recorded Sex Assigned at Not on file Legal Sex Female 1:29 PM EDT Gender Identity Not on file Sexual Orientation Not on file documented as of this encounter Miscellaneous Notes * Outreach Note - Nicky Oakley RN - 05/01/2022 10:[address] Surgery Week 1 Survey Flowsheet Row Responses [facility] [place] Does the patient have one of the following disease processes/diagnoses(primary or secondary)? Cardiothoracic surgery Week 1 attempt successful? No Unsuccessful attempts Attempt 1 NICKY Laurent - Registered Nurse documented in this encounter Plan of Treatment Upcoming Encounters Date Type Department Care Team (Late st Contact Info) Description 07/29/2024 10:45 AM EST Office Visit [facility] [address] [place] [id number] Goyo Khan MD [address] [facility] [facility] [place] [address] 09/02/2024 11:30 AM EDT Office Visit [facility] [address] [facility] [address] [place] [id number] Dee Jaimes, SCIENTIST IMMUNOLOGY [address] [facility] [address] [place] [address] documented as of this encounter Visit Diagnoses Not on filedocumented in this encounter Care Teams Gymnastics Coach Or Instructor Relationship Specialty Start Date End Date Talon Barragan MD [address] [facility] [address] [place] [address] PCP - General Family Medicine 03/20/22 documented as of this encounter
--- OUTSIDE RECORDS SUMMARY | 2024-05-04 22:48 | XMS_ITS | Encounter Summary ---
Author Organization [facility] ystem Address [address] [place] [address] Care Team Providers Care Link Cutter Name Role Phone Talon Barragan MD Primary Care Provider Encounter Details Date Type Department Care Team (Latest Contact Info) Description 04/22/2022 3:15 PM EST Pre-Admission Testing [facility] PREADMISSION [address] [place] [address] Thoracic aortic aneurysm without rupture, unspecified part Social History Tobacco Use Types Packs/Day Years Used Date Smoking Tobacco: Never Smokeless Tobacco: Never Tobacco Cessation:Counseling Given: Not Answered Alcohol Use Standard Drinks/Week Comments Yes 2 (1 standard drink = 0.6 oz pur e alcohol) social Education Answer Date Recorded Help with school or training? Not on file Preferred Language Citizen Of [place] 04/22/2022 Comments No Sex and Gender Information Value Date Recorded Sex Assigned at Not on file Legal Sex Female 1:29 PM EDT Gender Identity Not on file Sexual Orientation Not on file documented as of this encounter Last Filed Vital Signs Vital Sign Reading Time Taken Comments Blood Pressure - - Pulse - - Temperature - - Respiratory Rate - - Oxygen Saturation 95% 04/22/2022 3:43 PM EST Inhaled Oxygen Concentration - - Weight 97.1 kg (214 lb 2.8 oz) 04/22/2022 3:43 P M EST Height 167.6 cm (5' 6 ) 04/22/2022 3:43 PM EST Body Mass Index 34.57 04/22/2022 3:43 PM EST documented in this encounter OR Notes * PAT - Meli Covarrubias RN - 04/22/2022 3:15 PM EST An arrival time for procedure was not provided during PAT visit. If patient had any questions or concerns about their arrival time, they were instructed to contact their surgeon/physician. Additionally, if the patient referred to an arrival time that was acquired from their my chart account, patient was encouraged to verify that time with their surgeon/physician. Arrival times are NOT provided inPre Admission Testing Department. Patient to apply Chlorhexadine wipes to surgical area (as instructed) the night before procedure and the AM of procedure. Wipes provided. Patient denies any current skin issues. Patient directed to Radiology Department for CXR after Pre Admission Testing Appointment. TOO SOON TO OBTAIN T&S AT [facility] APPT. YAHAIRA PRELIMINARY PINK TUBE AND PLACED ORDER FOR T&S TO BE COLLECTED ON 04/26/2022, PATIENT SURGERY DAY. Patient viewed general PAT education video as instructed in their preoperative information receivedfrom their surgeon. Patient stated the general [facility] education video was viewed in its entirety and survey completed. Copies of [facility] general education handouts (Incentive Spirometry, Meds to Beds Program, Patient Belongings, Pre-op skin preparation instructions, Blood Glucose testing, Visitor policy, Surgery FAQ, Code H) distributed to patient if not printed. Education related to the PAT pass and skin preparation for surgery (if applicable) completed in PAT as a reinforcement to PAT education video. Patient instructed to return PAT pass provided today as well as completed skin preparation sheet ( if applicable) on the day of procedure. Additionally if patient had not viewed video yet but intended to view it at home or in our waiting area, then referred them to the handout with QR code/link provided during PAT visit. Instructed patient to complete survey after viewing the video in its entirety. Encouraged patient/family to read [facility] general education handouts thoroughly and notify PAT staff with any questions or concerns. Patientverbalized understanding of all information and priority content. PATIENT EKG ON CHART AND IN Epic FROM 04/22/2022 documented in this encounter Plan of Treatment Upcoming Encounters Date Type Department Care Team (Late st Contact Info) Description 07/29/2024 10:45 AM EST Office Visit [facility] CARDIOLOGY [address] [place] [address] Goyo Khan MD [address] [place] [address] 09/02/2024 11:30 AM EDT Office Visit [facility] CARDIOTHORACIC SURGERY [address] [place] [id number] Dee Jaimes APRN [address] [facility] [address] [place], [place] [id number] documented as of this encounter Procedures Procedure Name Priority Date/Time Associated Diagnosis Comments XR CHEST PA AND LATERAL Routine 04/22/2022 4:35 PM EST Thoracic aortic aneurysm without rupture, unspecified part ECG 12-LEAD Routine 04/22/2022 4:06 PM EST Thoracic aortic aneurysm without rupture, unspecified part ABORH 2ND SPECIMEN VERIFICATION Routine 04/22/2022 3:33 PM EST Thoracic aortic aneurysm without rupture, unspecified part CBC WITH AUTO DIFFERENTIAL Routine 04/22/2022 3:33 PM EST Thoracic aortic aneurysm without rupture, unspecified part APTT Routine 04/22/2022 3:33 PM EST Thoracic aortic aneurysm without rupture, unspecified part PROTIME-INR Routine 04/22/2022 3:33 PM EST Thoracic aortic aneurysm without rupture, unspecified part CBC AND DIFFERENTIAL Routine 04/22/2022 3:33 PM EST Thoracic aortic aneurysm without rupture, unspecified part HEMOGLOBIN A1C Routine 04/22/2022 3:33 PM EST Thoracic aortic aneurysm without rupture, unspecified part BASIC METABOLIC PANEL Routine 04/22/2022 3:33 PM EST Thoracic aortic aneurysm without rupture, [...] 04/22/2022 4:45 PM by Sachin Holly MD. Edward [facility]ICE IMG DIAGNOSTIC IMAGING ORDERABL ES Final Result * ECG 12 Lead (04/22/2022 4:06 PM EST) QT Interval 372 ms ECG QTC Interval 415 ms ECG 04/22/2022 4:06 PM EST 04/22/2022 5:10 PM EST Narrative ECG - 04/22/2022 5:10 PM EST Test Reason : PREOP Blood Pressure : ?? */* ?? mmHG Vent. Rate : ??75 BPM ? Atrial Rate : ??75 BPM ?? P-R Int : 170 ms ?QRS Dur : ??76 ms ?QT Int : 372 ms ? P-R-T Axes : ??28 ??12 ??21 degrees ?? QTc Int : 415 ms Normal sinus rhythm No previous ECGs available Confirmed by SHEYLA SORTO ([id number]) on 04/22/2022 5:10:34 PM Referred By: CHEMO ? Confirmed By: SHEYLA SORTO Procedure Note Sheyla Sorto MD - 04/22/2022 Test Reason : PREOP Blood Pressure : */* mmHG Vent. Rate : 75 BPM Atrial Rate : 75 BPM P-R Int : 170 ms QRS Dur : 76 ms QT Int : 372 ms P-R-T Axes : 28 12 21 degrees QTc Int : 415 ms Normal sinus rhythm No previous ECGs available Confirmed by SHEYLA SORTO ([id number]) on 04/22/2022 5:10:34 PM Referred By: CHEMO Confirmed By: SHEYLA SORTO us Edward [facility]ICE ECG ORDERABLES Final Result ECG * ABORH 2ND SPECIMEN VERIFICATION (04/22/2022 3:33 PM EST) ABO Type A 04/23/2022 7:27 AM EST [facility] RH type Positive 04/23/2022 7:27 AM EST [facility] Blood Venipuncture / Unknown 04/22/2022 3:33 PM EST 04/22/2022 7:46 PM EST Nile Muse MD BLOOD BANK TEST ORDERABLES Iliana l Result [facility]
[address] [place] [address], * (ABNORMAL) CBC Auto Differential (04/22/2022 3:33 PM EST) WBC 9.74 3.40 - 10.80 10*3/mm3 04/22/2022 4:17 PM EST [facility] RBC 4.29 3.77 - 5.28 10*6/mm3 04/22/2022 4:17 PM EST [facility] Hemoglobin 13.1 12.0 - 15.9 g/dL 04/22/2022 4:17 PM EST [facility] Hematocrit 41.0 34.0 - 46.6 % 04/22/2022 4:17 PM [facility] MCV 95.6 79.0 - 97.0 fL 04/22/2022 4:17 PM EST [facility] MCH 30.5 26.6 - 33.0 pg 04/22/2022 4:17 PM [facility] MCHC 32.0 31.5 - 35.7 g/dL 04/22/2022 4:17 PM [facility] RDW 14.8 12.3 - 15.4 % 04/22/2022 4:17 PM [facility] RDW-SD 51.7 37.0 - 54.0 fl 04/22/2022 4:17 PM EST [facility] MPV 10.4 6.0 - 12.0 fL 04/22/2022 4:17 PM [facility] Platelets 229 140 - 450 10*3/mm3 04/22/2022 4:17 PM EST [facility] Neutrophil % 61.4 42.7 - 76.0 % 04/22/2022 4:17 PM EST [facility] Lymphocyte % 26.8 19.6 - 45.3 % 04/22/2022 4:17 PM EST [facility] Monocyte % 9.5 5.0 - 12.0 % 04/22/2022 4:17 PM EST [facility] Eosinophil % 1.2 0.3 - 6.2 % 04/22/2022 4:17 PM EST [facility] Basophil % 0.5 0.0 - 1.5 % 04/22/2022 4:17 PM EST [facility] Immature Grans % 0.6(H) 0.0 - 0.5 % 04/22/2022 4:17 PM EST [facility] Neutrophils, Absolute 5.97 1.70 - 7.00 10*3/mm3 04/22/2022 4:17 PM EST [facility] Lymphocytes, Absolute 2.61 0.70 - 3.10 10*3/mm3 04/22/2022 4:17 PM EST [facility] Monocytes, Absolute 0.93(H) 0.10 - 0.90 10*3/mm3 04/22/2022 4:17 PM EST [facility] Eosinophils, Absolute 0.12 0.00 - 0.40 10*3/mm3 04/22/2022 4:17 PM EST [facility] Basophils, Absolute 0.05 0.00 - 0.20 10*3/mm3 04/22/2022 4:17 PM EST [facility] Immature Grans, Absolute 0.06(H) 0.00 - 0.05 10*3/mm3 04/22/2022 4:17 PM EST [facility] nRBC 0.0 0.0 - 0.2 /100 WBC 04/22/2022 4:17 PM EST [facility] Blood Venipuncture / Unknown 04/22/2022 3:33 PM EST 04/22/2022 4:09 PM EST us Edward BRICE LAB BLOOD ORDERABLES Final Resu lt [facility]
[address] [place] [address], * Protime-INR (04/22/2022 3:33 PM EST) Protime 12.9 11.4 - 14.4 Seconds 04/22/2022 4:31 PM EST [facility] INR 0.98 0.84 - 1.13 04/22/2022 4:31 PM EST [facility] Blood Venipuncture / Unknown 04/22/2022 3:33 PM EST 04/22/2022 4:09 PM EST Edward BRICE LAB BLOOD ORDERABLES Final Resu lt [facility]
[address] [place] [address], * PTT (04/22/2022 3:33 PM EST) PTT 27.6 22.0 - 39.0 seconds 04/22/2022 4:31 PM EST [facility] Blood Venipuncture / Unknown 04/22/2022 3:33 PM EST 04/22/2022 4:09 PM EST Narrative [facility] - 04/22/2022 4:31 PM EST PTT = The equivalent PTT values for the therapeutic range of heparin levels at 0.3 to 0.5 U/ml are 60 to 70 seconds. us Edward BRICE LAB BLOOD ORDERABLES Final Resu lt Performing Organization Address [facility]/ZIP Co de Phone Number [facility]
[address] [place] [address], * (ABNORMAL) Hemoglobin A1c (04/22/2022 3:33 PM EST) Hemoglobin A1C 6.40(H) 4.80 - 5.60 % 04/22/2022 4:32 PM EST [facility] Blood Venipuncture / Unknown 04/22/2022 3:33 PM EST 04/22/2022 4:09 PM EST Narrative [facility] - 04/22/2022 4:32 PM EST Hemoglobin A1C Ranges: Increased Risk for Diabetes ??5.7% to 6.4% Diabetes ? >= 6.5% Diabetic Goal ?< 7.0% us Edawrd BRICE LAB BLOOD ORDERABLES Final Resu lt [facility]
[address] [place] [address], * (ABNORMAL) Basic Metabolic Panel (04/22/2022 3:33 PM EST) [facility] Glucose 168(H) 65 - 99 mg/dL 04/22/2022 4:44 PM EST [facility] BUN 22 8 - 23 mg/dL 04/22/2022 4:44 PM EST [facility] Creatinine 1.00 0.57 - 1.00 mg/dL 04/22/2022 4:44 PM EST [facility] Sodium 143 136 - 145 mmol/L 04/22/2022 4:44 PM EST [facility] Potassium 4.1 3.5 - 5.2 mmol/L 04/22/2022 4:44 PM EST [facility] Chloride 104 98 - 107 mmol/L 04/22/2022 4:44 PM EST [facility] CO2 28.0 22.0 - 29.0 mmol/L 04/22/2022 4:44 PM EST [facility] Calcium 10.0 8.6 - 10.5 mg/dL 04/22/2022 4:44 PM EST [facility] BUN/Creatinine Ratio 22.0 7.0 - 25.0 04/22/2022 4:44 PM EST [facility] Anion Gap 11.0 5.0 - 15.0 mmol/L 04/22/2022 4:44 PM EST [facility] eGFR 60.4 >60.0 mL/min/1. 73 04/22/2022 4:44 PM EST [facility] Comment:National Kidney Foun dation and [place] Society of Nephrology (ASN) Task Force recommended calculation based on the Chronic Kidney Disease Epidemiology Collaboration (CKD-EPI) equation refit without adjustment for race. Blood Venipuncture / Unknown 04/22/2022 3:33 PM EST 04/22/2022 4:09 PM EST Narrative [facility] - 04/22/2022 4:44 PM EST GFR Normal >60 Chronic Kidney Disease <60 Kidney Failure <15 The GFR formula is only valid for adults with stable renal function between ages 18 and 70. us Edward BRICE LAB BLOOD ORDERABLES Final Resu lt [facility]
[address] [place] [address], documented in this encounter Visit Diagnoses Diagnosis Thoracic aortic aneurysm without rupture, unspecified part documented in this encounter Care Teams Link Cutter Relationship Specialty Start Date End Date Talon Barragan MD [address] [facility] [address] [facility] [address] [place] [phone] PCP - General Family Medicine 03/20/22 documented as of this encounter
--- OUTSIDE RECORDS SUMMARY | 2024-05-04 22:48 | XMS_ITS | Encounter Summary ---
[facility] Organization [facility] Address [address] [place] [address] Care Team Providers Care Transfill Technician Name Role Phone Talon Barragan MD Primary Care Provider Reason for Visit * Auth/Cert (Routine) Specialty Diagnoses / Procedures Referred By Heather t Referred To Contact Diagnoses Thoracic aortic aneurysm without rupture, unspecified part Thoracic aortic aneurysm without rupture, unspecified part [I71.20] Procedures AR ENDOVASC TAA REINCL SUBCL AR BYPASS GRAFT OTHR,CAROT-SUBCL THORACIC AORTAGRAM, POSSIBLE TEVAR, POSSIBLE CAROTID SUBCLAVIAN BYPASS Referral ID Status Reason Start Date Expiration Date Visits Re quested Visits Authorized [id number] 1 1 Encounter Details Date Type Department Care Team (Late st Contact Info) Description 04/26/2022 12:41 PM EST Anesthesia Event [facility] OR [address] [place] [address] Felipe Ariza Jr., MD [address] [place] [address] Riddhi Jarvis DO [address] [place] [address] Anesthesia Record Procedure Summary Procedure Name Responsible Anesthesiologist Anesthesia Start Time Anesthesia Stop Time Felipe Dotson Jr., MD 04/26/22 1241 1 2/02/22 1431 Events Date Time Event Comment 04/26/2022 0904 0955 AN Equip Check 1241 An Start The patient was reevaluated immediately before moderate or deep sedation use and before anesthesia induction. 1241 An Start Data 1250 An Induction 1253 An Intubation 1421 An Extubation 1431 Handoff to RN The following has been [...] of understanding of report from the receiving PACU team 1431 An Stop 1431 an stop data Meds Name Total Propofol 10 MG/ML 150 mg lidocaine PF 1% 1 % 40 mg heparin (porcine) 1000 UNIT/ML 7,500 Uni ts vecuronium 10 MG 8 mg sugammadex 200 MG/2ML 200 mg ceFAZolin in dextrose (ANCEF) IVPB solut ion 2 g 2 g fentaNYL citrate (PF) 100 MCG/2ML 100 mc g ondansetron 2 mg/mL 4 mg dexamethasone 4 MG/ML 4 mg protamine 10 mg/mL injection 25 mg sodium chloride 0.9 % 700 mL lactated ringers infusion 100 mL * Agents Name O2 N2O Air Desflurane * Blood No blood administrations on file. Lines, Drains, and Airways Type Details Placement Removal Peripheral IV Placement Date: 04/26/22; Placement Time: 08; Catheter Size: 18 G; Orientation: Right; Location: Antecubital; Site Prep: Alcohol; Local Anes: Injectable; Inserted by: nevin; Insertion Attempts: 1; Patient Tolerance: Tolerated well; Removal Date: 04/28/22; Removal Time: 44 04/26/22 0848 by Joleen Sosa RN 04/28/2244 by Terri Vazquez RN Peripheral IV Placement Date: 04/26/22; Placement Time: 0859; Catheter Size: 18 G; Orientation: Posterior, Right; Location: Hand; Site Prep: Alcohol; Local Anes: Injectable; Inserted by: nevin; Insertion Attempts: 1; Patient Tolerance: Tolerated well; Removal Date: 04/28/22; Removal Time: 0944 04/26/22 0859 by Joleen Sosa RN 04/28/22 0944 by Terri Vazquez RN Arterial Line(Adult) Placement Date: 04/26/22; Placemnt Time: 09 (created via procedure documentation); Size: 20 G; Orientation: Left; Location: Radial; Insertion Attempts: 1; Removal Date: 04/27/22; Removal Time: 1150 04/26/22 0904 by Riddhi Jarvis DO 04/27/22 1150 by Terri Vazquez RN ETT Placement Date: 04/26/22; Placement Time: 1307 (created via procedure documentation); Tube Size: 7.5 mm; Blade Size: 3; Location: Oral; Removal Date: 04/26/22; Removal Time: 1421 04/26/22 1307 by Brandon Lamas CRNA 04/26/22 1421 by Brandon Lamas CRNA Wound 04/26/22; 1317; Bilateral; groin; Incision; 04/28/22; 0945 04/26/22 1317 by Yolette Bhatti RN 04/28/22 0945 by Terri Vazquez RN documented in this encounter Social History Tobacco Use Types Packs/Day Years Used Date Smoking Tobacco: Never Smokeless Tobacco: Never Alcohol Use Standard Drinks/Week Comments Yes 2 (1 standard drink = 0.6 oz pur e alcohol) social Education Answer Date Recorded Help with school or training? Not on file Preferred Language Israeli 04/22/2022 Comments No Sex and Gender Information Value Date Recorded Sex Assigned at Not on file Legal Sex Female 1:29 PM EDT Gender Identity Not on file Sexual Orientation Not on file documented as of this encounter OR Notes * Anesthesia Postprocedure Evaluation - Brandon Lamas CRNA - 04/26/2022 2:35 PM EST Patient: Juany Alarcon Procedure Summary Date: 04/26/22 Room / Location: [facility] Anesthesia Start: 1241 Anesthesia Stop: Procedure: TEVAR Diagnosis: Thoracic aortic aneurysm without rupture, unspecified part (Thoracic aortic aneurysm without rupture, unspecified part [I71.20]) Surgeons: Nile Muse MD Provider: Felipe Ariza Jr., MD Anesthesia Type: general, Esme ASA Status: 3 Anesthesia Type: general, Esme Vitals Vitals Value Taken Time BP 91/80 04/26/22 1432 Temp Pulse Resp SpO2 Vitals shown include unvalidated device data. Post Anesthesia Care and Evaluation Patient location during evaluation: PACU Patient participation: complete - patient participated Level of consciousness: awake and alert Pain score: 0 Pain management: adequate Airway patency: patent Anesthetic complications: No anesthetic complications PONV Status: none Cardiovascular status: hemodynamically stable and acceptable Respiratory status: nonlabored ventilation, acceptable, nasal cannula and spontaneous ventilation Hydration status: acceptable Comments: VSS No anesthesia care post op * Anesthesia Procedure Notes - Brandon Lamas CRNA - 04/26/2022 1:05 PM EST Associated Order(s): Airway Airway Urgency: elective Date/Time: 04/26/2022 12:53 PM Airway not difficult General Information and Staff Patient location during procedure: OR ASHLYN/CAA: Brandon Lamas CRNA Indications and Patient Condition Indications for airway management: airway protection Preoxygenated: yes MILS not maintained throughout Mask difficulty assessment: 1 - vent by mask Final Airway Details Final airway type: endotracheal airway Successful airway: ETT Cuffed: yes Successful intubation technique: video laryngoscopy Endotracheal tube insertion site: oral Blade: Bright Blade size: 3 ETT size (mm): 7.5 Cormack-Lehane Classification: grade I - full view of glottis Placement verified by: chest auscultation and capnometry Measured from: lips ETT/EBT to lips (cm): 20 Number of attempts at approach: 1 Assessment: lips, teeth, and gum same as pre-op and atraumatic intubation Additional Comments Negative epigastric sounds, Breath sound equal bilaterally with symmetric chest rise and fall First look with MAC 3 produced Grade IIB view, intubation not attempted. Second look with Bright 3produced Grade I view and successful intubation * Anesthesia Procedure Notes - Riddhi Jarvis DO - 04/26/2022 9:04 AM EST Associated Order(s): Arterial Line Arterial Line Patient reassessed immediately prior to procedure Patient location during procedure: pre-op Line placed for hemodynamic monitoring. Performed By Anesthesiologist: Riddhi Jarvis DO Preanesthetic Checklist Completed: patient identified, IV checked, site marked, risks and benefits discussed, surgical consent, monitors and equipment checked, pre-op evaluation and timeout performed Arterial Line Prep Crane Follower: cap, gloves and sterile barriers Prep: ChloraPrep Patient monitoring: blood pressure monitoring, continuous pulse oximetry and EKG Arterial Line Procedure Laterality:left Location: radial artery Catheter size: 20 G Guidance: ultrasound guided and palpation technique Number of attempts: 1 Successful placement: yes Post Assessment Dressing Type: line sutured, occlusive dressing applied, secured with tape and wrist guard applied. Complications no Circ/Move/Sens Assessment: normal and unchanged. Patient Tolerance: patient tolerated the procedure well with no apparent complications * Anesthesia Preprocedure Evaluation - Riddhi Jarvis DO - 04/25/2022 6:35 PM EST Anesthesia Evaluation Patient summary reviewed and Nursing notes reviewed history of anesthetic complications: NPO Solid Status: > 8 hours NPO Liquid Status: > 2 hours Airway Mallampati: III TM distance: >3 FB Neck ROM: full Possible difficult intubation Dental - normal exam Pulmonary - normal exam (+) shortness of breath, sleep apnea, (-) COPD, asthma, no home oxygen Cardiovascular - normal exam Exercise tolerance: good (4-7 METS) ECG reviewed (+) hypertension, hyperlipidemia, (-) dysrhythmias, angina, CHF, cardiac stents, [...] preserved systolic left ventricular function (LVEF 0.77 04/16-1.5 x 1.8 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 However, there is normal branch anatomy for a right-sided aortic arch. 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 Pt aware of risks of scopolamine patch and requesting scop; denies glaucoma; Agreeable to proceed. ) intravenous induction Anesthetic plan, risks, benefits, and alternatives have been provided, discussed and informed consent has been obtained with: patient. Use of blood products discussed with patient . Plan discussed with MANAGER TRANSPORTATION PLANNING. CODE STATUS: documented in this encounter Plan of Treatment Upcoming Encounters Date Type Department Care Team (Late st Contact Info) Description 07/29/2024 10:45 AM EST Office Visit [facility] [address] [facility] [address] [place] [address] Goyo Khan MD [address] [place] [address] 09/02/2024 11:30 AM EDT Office Visit [facility] [address] [facility] [address] [place] [address] Dee Jaimes, TRAVEL PROFESSIONAL [address] [facility] [address] [place] [address] documented as of this encounter Procedures Procedure Name Priority Date/Time Associated Diagnosis Comments ANESTHESIA INTUBATION Routine 04/26/2022 1:05 PM EST ANESTHESIA ARTERIAL LINE Routine 04/26/2022 9:04 AM EST documented in this encounter Results * BH AN ETT AIRWAY (04/26/2022 1:05 PM EST) Narrative Brandon Lamas CRNA - 04/26/2022 1:05 PM EST Brandon Lamas CRNA ? 04/26/2022 ??1:07 PM Airway Urgency: elective Date/Time: 04/26/2022 12:53 PM Airway not difficult General Information and Staff Patient location during procedure: OR MANAGER TRANSPORTATION PLANNING/CAA: Brandon Lamas CRNA Indications and Patient Condition Indications for airway management: airway protection Preoxygenated: yes MILS not maintained throughout Mask difficulty assessment: 1 - vent by mask Final Airway Details Final airway type: endotracheal airway Successful airway: ETT Cuffed: yes Successful intubation technique: video laryngoscopy Endotracheal tube insertion site: oral Blade: Bright Blade size: 3 ETT size (mm): 7.5 Cormack-Lehane Classification: grade I - full view of glottis Placement verified by: chest auscultation and capnometry Measured from: lips ETT/EBT ??to lips (cm): 20 Number of attempts at approach: 1 Assessment: lips, teeth, and gum same as pre-op and atraumatic intubation Additional Comments Negative epigastric sounds, Breath sound equal bilaterally with symmetric chest rise and fall First look with MAC 3 produced Grade IIB view, intubation not attempted. Second look with Bright 3 produced Grade I view and successful intubation us Brandon Lamas CRNA ANESTHESIA ORDERABLES Final Result * Arterial Line (04/26/2022 9:04 AM EST) [...] and timeout performed Arterial Line Prep ?? Crane Follower: cap, gloves and sterile barriers Prep: ChloraPrep [...] the procedure well with no apparent complications Riddhi Jarvis DO ANESTHESIA ORDERABLES Final Re [...] drug alert, Indications: Surgical ProphylaxisIndications:Surgical Prophylaxis Given 04/26/2022 12:54 PM EST 2 g dexamethasone (DECADRON) injection Intravenous, As Needed, Starting on Fri04/26/22 at 1331 Given 04/26/2022 1:31 PM EST 4 mg fentaNYL citrate (PF) (SUBLIMAZE) injection Intravenous, As Needed, Starting on Fri04/26/22 at 1303 Given 04/26/2022 2:12 PM EST 50 mcg Given 04/26/2022 1:03 PM EST 50 mcg heparin (porcine) injection Intravenous, As Needed, Starting on Fri04/26/22 at 1333 Given 04/26/2022 1:43 PM EST 2,500 Units Given 04/26/2022 1:33 PM EST 5,000 Units lactated ringers infusion 9 mL/hr, Intravenous, Continuous, Starting on Fri04/26/22 at 0811, May switch to NS IV at KVO if renal / if indicated Restarted 04/26/2022 2:11 PM EST Currently Infusing 04/26/2022 12:41 PM EST 9 mL /hr New Bag 04/26/2022 9:09 AM EST 9 mL/hr 9 mL/hr lidocaine PF 1% (XYLOCAINE) injection Intravenous, As Needed, Starting on Fri04/26/22 at 1250 Given 04/26/2022 12:50 PM EST 40 mg ondansetron (ZOFRAN) injection Intravenous, As Needed, Starting on Fri04/26/22 at 1405 Given 04/26/2022 2:05 PM EST 4 mg Propofol (DIPRIVAN) injection Intravenous, As Needed, Starting on Fri04/26/22 at 1250 Given 04/26/2022 12:50 PM EST 150 mg protamine injection Intravenous, As Needed, Starting on Fri04/26/22 at 1410 Given 04/26/2022 2:10 PM EST 25 mg sodium chloride 0.9 % infusion Intravenous, Continuous PRN, Starting on Fri04/26/22 at 1241 New Bag 04/26/2022 12:41 PM EST sugammadex (BRIDION) injection Intravenous, As Needed, Starting on Fri04/26/22 at 1412 Given 04/26/2022 2:12 PM EST 200 mg vecuronium (NORCURON) injection Intravenous, As Needed, Starting on Fri04/26/22 at 1250 Given 04/26/2022 1:43 PM EST 2 mg Given 04/26/2022 12:50 PM EST 6 mg documented in this encounter Care Teams Transfill Technician Relationship Specialty Start Date End Date Talon Barragan MD [address] [facility] [address] [facility] [address] [place] [address] PCP - General Family Medicine 03/20/22 documented as of this encounter
--- OUTSIDE RECORDS SUMMARY | 2024-05-04 22:49 | XMS_ITS | Encounter Summary ---
Author Organization [facility] Address [address] [place] [address] Care Team Providers Care Mussel Opener Name Role Phone Talon Barragan MD Primary Care Provider Reason for Referral * Diagnostic Imaging (Routine) - Closed Specialty Diagnoses / Procedures Referred By Contac t Referred To Contact Radiology Diagnoses Descending aortic aneurysm Procedures CT Angiogram Abdomen Pelvis With & Without Contrast Susi Mathias APRN Referral ID Status Reason Start Date Expiration Date Visits Re quested Visits Authorized [id number] Closed 04/12/2022 04/12/2023 1 1 * Diagnostic Imaging (Routine) - Closed Specialty Diagnoses / Procedures Referred By Contac t Referred To Contact Radiology Diagnoses Thoracic aortic aneurysm (TAA), unspecified part, unspecified whether ruptured Procedures CT Angiogram Chest With & Without Contrast Susi Mathias APRN Referral ID Status Reason Start Date Expiration Date Visits Re quested Visits Authorized [id number] Closed 04/12/2022 04/12/2023 1 1 Reason for Visit * Diagnostic Imaging (Routine) - Closed Specialty Diagnoses / Procedures Referred By Contac t Referred To Contact Radiology Diagnoses Descending aortic aneurysm Procedures CT Angiogram Abdomen Pelvis With & Without Contrast Susi Mathias APRN Referral ID Status Reason Start Date Expiration Date Visits Re quested Visits Authorized [id number] Closed 04/12/2022 04/12/2023 1 1 Encounter Details Date Type Department Care Team (Latest Contact Info) Description 04/19/2022 1:03 PM EST - 04/19/2022 11:59 PM EST Hospital Encounter [facility] [address] [place] [id number] Susi Mathias APRN Thoracic aortic aneurysm (TAA), unspecified part, unspecified whether ruptured; Descending aortic aneurysm Discharge Disposition: Home or Self Care Social History Tobacco Use Types Packs/Day Years Used Date Smoking Tobacco: Never Smokeless Tobacco: Never Alcohol Use Standard Drinks/Week Comments Yes 2 (1 standard drink = 0.6 oz pur e alcohol) social Comments No Sex and Gender Information Value [...] Description 07/29/2024 10:45 AM EST Office Visit [facility] [address] [facility] [address] [place] [phone] Goyo Khan MD [address] [facility] [address] [place] [address] 09/02/2024 11:30 AM EDT Office Visit [facility]ERY [address] [facility] [address] [place] [address] Dee Jaimes RAC SPECIALIST [address] [facility] [address] [place] [address] documented as of this encounter Procedures Procedure Name Priority Date/Time Associated Diagnosis Comments CT ANGIOGRAM ABDOMEN PELVIS Routine 04/19/2022 1:31 PM EST Descending aortic aneurysm CT ANGIOGRAM CHEST W WO CONTRAST Routine 04/19/2022 1:31 PM EST Thoracic aortic aneurysm (TAA), unspecified part, unspecified whether ruptured POCT CREATININE Routine 04/19/2022 1:21 PM EST documented in this encounter Results * CT Angiogram Abdomen Pelvis (04/19/2022 1:31 PM EST) Anatomical Region Laterality Modality Abdomen, Vascular, Pelvis N/A Comput ed Tomography 04/22/2022 8:16 AM EST Impressions 04/22/2022 8:24 AM EST 1. Right-sided aortic arch 2. 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 However, there is normal branch anatomy for a right-sided aortic arch. This report was finalized on 04/22/2022 8:24 AM by Sachin Holly MD. Narrative 04/22/2022 8:24 AM EST DATE OF EXAM: 04/19/2022 1:06 PM PROCEDURE: CT ANGIOGRAM CHEST-, CT ANGIOGRAM ABDOMEN PELVIS- INDICATIONS: TAA; I71.20-Thoracic aortic aneurysm, without rupture, unspecified COMPARISON: No comparisons available. TECHNIQUE: Contiguous axial imaging was obtained from the thoracic inlet through the upper abdomen following the intravenous administration of 85 mL of Isovue 370. Reconstructed coronal and sagittal images were also obtained. Automated exposure control and iterative reconstruction methods were used. The radiation dose reduction device was turned on for each scan per the ALARA (As Low as Reasonably Achievable) protocol. FINDINGS: VASCULAR FINDINGS: There is a right-sided [...] lytic or sclerotic bone lesions are identified. Procedure Note Sachin Holly MD - 04/22/2022 DATE OF EXAM: 04/19/2022 1:06 PM PROCEDURE: CT ANGIOGRAM CHEST-, CT ANGIOGRAM ABDOMEN PELVIS- INDICATIONS: TAA; I71.20-Thoracic aortic aneurysm, without rupture, unspecified COMPARISON: No comparisons available. TECHNIQUE: Contiguous axial imaging was obtained from the thoracic inlet through the upper abdomen following the intravenous administration of 85 mL of Isovue 370. Reconstructed coronal and sagittal images were also obtained. Automated exposure control and iterative reconstruction methods were used. The radiation dose reduction device was turned on for each scan per the ALARA (As Low as Reasonably Achievable) protocol. FINDINGS: VASCULAR FINDINGS: There is a right-sided [...] the typical location of a diverticulum of [place], with a right-sided arch and aberrant left subclavian artery. However, there is normal branch anatomy for a right-sided aortic arch. This report was finalized on 04/22/2022 8:24 AM by Sachin Holly MD. us Susi Mathias RAC SPECIALIST IMG CT ORDERABLES Final Result * CT Angiogram Chest (04/19/2022 1:31 PM EST) Anatomical Region Laterality Modality Chest, Vascular N/A Computed Tomogra phy 04/22/2022 8:16 AM EST Impressions 04/22/2022 8:24 AM EST 1. Right-sided aortic arch 2. 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 However, there is normal branch anatomy for a right-sided aortic arch. This report was finalized on 04/22/2022 8:24 AM by Sachin Holly MD. Narrative 04/22/2022 8:24 AM EST DATE OF EXAM: 04/19/2022 1:06 PM PROCEDURE: CT ANGIOGRAM CHEST-, CT ANGIOGRAM ABDOMEN PELVIS- INDICATIONS: TAA; I71.20-Thoracic aortic aneurysm, without rupture, unspecified COMPARISON: No comparisons available. TECHNIQUE: Contiguous axial imaging was obtained from the thoracic inlet through the upper abdomen following the intravenous administration of 85 mL of Isovue 370. Reconstructed coronal and sagittal images were also obtained. Automated exposure control and iterative reconstruction methods were used. The radiation dose reduction device was turned on for each scan per the ALARA (As Low as Reasonably Achievable) protocol. FINDINGS: VASCULAR FINDINGS: There is a right-sided [...] lytic or sclerotic bone lesions are identified. Procedure Note Sachin Holly MD - 04/22/2022 DATE OF EXAM: 04/19/2022 1:06 PM PROCEDURE: CT ANGIOGRAM CHEST-, CT ANGIOGRAM ABDOMEN PELVIS- INDICATIONS: TAA; I71.20-Thoracic aortic aneurysm, without rupture, unspecified COMPARISON: No comparisons available. TECHNIQUE: Contiguous axial imaging was obtained from the thoracic inlet through the upper abdomen following the intravenous administration of 85 mL of Isovue 370. Reconstructed coronal and sagittal images were also obtained. Automated exposure control and iterative reconstruction methods were used. The radiation dose reduction device was turned on for each scan per the ALARA (As Low as Reasonably Achievable) protocol. FINDINGS: VASCULAR FINDINGS: There is a right-sided [...] branch anatomy for a right-sided aortic arch. This report was finalized on 04/22/2022 8:24 AM by Sachin Holly MD. Susi Mathias RAC SPECIALIST IMG CT ORDERABLES Final Result * POC Creatinine (04/19/2022 1:21 PM EST) Creatinine 1.10 0.60 - 1.30 mg/dL 04/19/2022 1:42 PM EST [facility] Comment:Serial Number: [id number] Blood 04/19/2022 1:21 PM EST 04/19/2022 1:42 PM EST Susi Mathias RAC SPECIALIST POINT OF CARE TEST ORDERABLES Final Result [facility]
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
--- OUTSIDE RECORDS SUMMARY | 2024-05-04 22:49 | XMS_ITS | Encounter Summary ---
[facility] Organization [facility] Address [address] [place] [address] Care Team Providers Care Customer Service Receptionist Name Role Phone Talon Barragan MD Primary Care Provider Reason for Visit * Reason Comments Consult Parts Representative referred for a de scending aortic aneurysm,complains of shortness of breath. * Consultation (Routine) - Closed Specialty Diagnoses / Procedures Referred By Contact Referred To Contact Cardiothoracic Surgery Diagnoses Abnormal computed tomography angiography (CTA) Santo Salinas MD [address] [facility] [address] [facility] [address] [place] [address] Phone: tel: fax: Reynaldo Vera MD [address] [facility] [address] [place] [address] Phone: tel: fax: Referral ID Status Reason Start Date Expiration Date V isits Requested Visits Authorized [id number] Closed Specialty Services Required 02/27/2022 02/27/2023 1 1 Encounter Details Date Type Department Care Team (Latest Contact Info) Description 04/11/2022 10:30 AM EST Office Visit [facility] CARDIOTHORACIC SURGERY [address] [facility] [address] [place] [address] Nile Muse MD Aneurysm of descending thoracic aorta without rupture (Primary Dx) Social History Tobacco Use Types [...] Sign Reading Time Taken Comments Blood Pressure 157/98 04/11/2022 10:03 AM EST Pulse 54 04/11/2022 10:03 AM EST Temperature 36.4 ??C (97.5 ??F) 04/11/2022 10:[address] Respiratory Rate - - Oxygen Saturation 99% 04/11/2022 10:03 AM EST Inhaled Oxygen Concentration - - Weight 97.1 kg (214 lb) 04/11/2022 10:03 AM EST Height 167.6 cm (5' 6 ) 04/11/2022 10:03 AM EST Body Mass Index 34.54 04/11/2022 10:03 AM EST documented in this encounter Progress Notes * Nile Muse MD - 04/11/2022 10:30 AM EST 04/11/2022 Patient Information Juany Alarcon [address] [place] [address] 1950 'PCP/Referring Physician' Talon Barragan MD [phone] Santo Salinas MD [phone] Chief Complaint Patient presents with ??? Consult Parts Representative referred for a descending aortic aneurysm,complains of [...] that her mother had a history of Wolof measles during the of her older brother [...] medical record and imaging, as well as [id number] time for history taking, examination, diagnosis discussion, and management discussion.* I would like to thank you very much for this consultation. Nile Muse M.D., R.P.V.I. Cardiothoracic and Vascular Surgeon [facility] documented in this encounter Plan of Treatment Upcoming Encounters Date Type Department Care Team (Late st Contact Info) Description 07/29/2024 10:45 AM EST Office Visit [facility] CARDIOLOGY [address] [facility] [address] [place] [id number] Goyo Khan MD [address] [facility] [address] [place] [address] 09/02/2024 11:30 AM EDT Office Visit [facility] CARDI[facility]ERY [address] [facility] [address] [place] [address] Dee Jaimes APRN [address] [facility] [address] [place] [address] Scheduled Referrals Name Type Priority Associated Diagnoses Order Schedule Ambulatory Referral to Cardiovascular Surgery Outpatient Referral Routine Abnormal computed tomography angiography (CTA) Ordered: 02/27/2022 documented as of this encounter Visit Diagnoses Diagnosis Aneurysm of descending thoracic aorta without rupture- Primary documented in this encounter Care Teams Customer Service Receptionist Relationship Specialty Start Date End Date Talon Barragan MD [facility] [address] [facility] [address] [place] [address] PCP - General Family Medicine 03/20/22 documented as of this encounter
--- OUTSIDE RECORDS SUMMARY | 2024-05-04 22:49 | XMS_ITS | Encounter Summary ---
[facility] Address [address] [place] [address] Care Team Providers Care Digital Sales Director Name Role Phone Talon Barragan MD Primary Care Provider Reason for Referral * Diagnostic Medical (Routine) - Closed Specialty Diagnoses / Procedures Referred By Heather santos Referred To Contact Diagnoses Dyspnea on exertion Procedures Adult Transthoracic Echo Complete w/ Color, Spectral and Contrast if necessary per protocol Baylee Gross DO Phone: tel: fax: [facility] [address] [place] [address] Phone: tel: Referral ID Status Reason Start Date Expiration Date Visits Re quested Visits Authorized [id number] Closed 03/20/2022 03/20/2023 1 1 Reason for Visit * Reason Comments Abnormal PFT * Consultation (Routine) - Closed Specialty Diagnoses / Procedures Referred By Contact Referred To Contact Pulmonary Disease / Pulmonology Diagnoses Abnormal PFT Santo Salinas MD [address] [facility] [address] [place] [address] Phone: tel: fax: Christo Tran MD Phone: tel:[phone] fax:[phone] Referral ID Status Reason Start Date Expiration Date V isits Requested Visits Authorized [id number] Closed Specialty Services Required 02/28/2022 02/28/2023 1 1 Encounter Details Date Type Department Care Team (Late st Contact Info) Description 03/20/2022 11:15 AM EDT Office Visit [facility] PULMONARY & CRITICAL CARE MEDICINE [address] [place] [address] CaseBaylee DO [address] [place] [address] Dyspnea on exertion (Primary Dx); Obstructive sleep [...] Sign Reading Time Taken Comments Blood Pressure 152/90 03/20/2022 10:48 AM EDT Pulse 48 03/20/2022 10:48 AM EDT Temperature 36.5 ??C (97.7 ??F) 03/20/2022 10:48 AM E DT Respiratory Rate - - Oxygen Saturation 99% 03/20/2022 10:48 AM EDT Inhaled Oxygen Concentration - - Weight 98.2 kg (216 lb 9.6 oz) 03/20/2022 10:48 AM EDT Height 167.6 cm (5' 6 ) 03/20/2022 10:48 AM EDT Body Mass Index 34.96 03/20/2022 10:48 AM EDT documented in this encounter Progress Notes * Baylee Gross DO - 03/20/2022 11:15 AM EDT Initial Pulmonary Consult Note Subjective Reason for consultation/Chief Complaint: Shortness of Breath, Wheezing Juany Alarcon is a 71 y.o. female is being seen for consultation today at the request of Elia Salinas MD History of Present Illness Ms. Alarcon is a 71yo F who is referred for shortness of breath and wheezing. She reports that she had wheezing in the past but her symptoms have worsened since this past summer. She develops shortnessof breath with wheezing with exertion. She is trying to lose weight and thinks this may have made an improvement in her breathing. She previously tried an Albuterol inhaler after a sinus infection but did not like that it gave her palpitations and made her feel shaky and she did not continue to useit. She has a home Cpap for DIOGENES but she has not used it for the past couple of months as she feels that she sleeps better without it. She has not had an echocardiogram that she is aware of as part ofher workup. Active Ambulatory Problems Diagnosis Date Noted ??? Hypertensive cardiovascular disease ??? Labile hypertension ??? Migraine headache ??? Sinusitis ??? Hiatal hernia with gastroesophageal reflux ??? Chronic low back pain ??? Obstructive sleep apnea on CPAP ??? Post-menopausal ??? Calcified cerebral meningioma (HCC) 08/24/2001 ??? Osteoarthritis cervical spine ??? Mild obesity ??? Right knee pain ??? Nausea ??? Weakness ??? Syncope ??? Numbness and tingling in both hands ??? Dyslipidemia ??? Abnormal CT scan 08/24/2001 ??? Osteoarthritis cervical spine ??? Breast cancer (HCC) ??? Dyspnea on exertion 12/28/2021 Resolved Ambulatory Problems Diagnosis Date Noted ??? No Resolved Ambulatory Problems Past Medical History: Diagnosis Date ??? History of left breast cancer Past Surgical History: Procedure Laterality Date ??? SECTION 1990 ??? CHOLECYSTECTOMY 05/2004 ??? COMPLETE MASTECTOMY W/ SENTINEL NODE BIOPSY Left ??? KNEE SURGERY Right replacement ??? ORIF HIP FRACTURE Right spring ??? TOTAL KNEE ARTHROPLASTY 2019 left Family History Problem Relation Age [...] ??? Penicillins Rash Current Outpatient Medications Medication Sig Dispense Refill ??? aspirin 81 MG EC tablet Take 1 tablet by mouth Daily. 90 tablet 3 ??? bisoprolol-hydrochlorothiazide (ZIAC) 5-6.25 MG per tablet Take 1 tablet by mouth Daily. 90 tablet 3 ??? Cholecalciferol (VITAMIN D3) 2000 units tablet Take 2,000 Units by mouth Daily. ??? cyanocobalamin (VITAMIN B-12) 500 MCG tablet Take 500 mcg by mouth Daily. ??? meloxicam (MOBIC) 15 MG tablet Take 7.5 mg by mouth Daily. ??? metoclopramide (REGLAN) 5 MG tablet Take 5 mg by mouth Daily. ??? mometasone (NASONEX) 50 MCG/ACT nasal spray 2 sprays into the nostril(s) as directed by provider As Needed. ??? oxybutynin (DITROPAN) 5 MG tablet Take 5 mg by mouth Daily. ??? potassium chloride (K-DUR,KLOR-CON) 20 MEQ CR tablet Take 1 tablet by mouth Daily. 90 tablet 3 ??? Probiotic Product (PROBIOTIC PO) Take 1 tablet by mouth Daily. ??? rosuvastatin (CRESTOR) 10 MG tablet Take 1 tablet by mouth Daily. 90 tablet 3 No current facility-administered medications for this visit. Review of Systems Constitutional: Positive for fatigue. HENT: Negative. Eyes: Negative. Respiratory: Positive for shortness of breath and wheezing. Cardiovascular: Negative. Gastrointestinal: Negative. Endocrine: Negative. Genitourinary: Negative. Musculoskeletal: Positive for arthralgias, back pain and neck pain. Skin: Negative. Allergic/Immunologic: Negative. Neurological: Negative. Hematological: Negative. Psychiatric/Behavioral: Negative. Objective Blood pressure 152/90, pulse (!) 48, temperature 97.7 ??F (36.5 ??C), temperature source Temporal, height 167.6 cm (66 ), weight 98.2 kg (216 lb 9.6 oz), SpO2 99 %. Physical Exam Vitals and nursing note [...] Behavior: Behavior normal. Judgment: Judgment normal. PFTs: Performed in clinic and personally reviewed. There is no airway obstruction. The lung volumes are normal. The DLCO is reduced at 57%. Imaging: CT Chest from 02/13/22 reviewed. There is no evidence of pulmonary embolic disease. There is a smalleccentric proximal descending aortic aneurysm with some mass effect on the esophagus and trachea. There is no evidence of active chest disease. Assessment & Plan Diagnoses and all orders for this visit: 1. Dyspnea on exertion (Primary) - Adult Transthoracic Echo Complete w/ Color, Spectral and Contrast if necessary per protocol; Future 2. Obstructive sleep apnea on CPAP Discussion: Ms. Alarcon is a 71yo F who is referred for shortness of breath and wheezing. 1. Shortness of Breath - Repeat PFTs show no airway obstruction with normal lung volumes. The DLCO is slightly reduced. - CT imaging was unremarkable. - She may have a component of asthma. I have given her samples of Asmanex 50 to use 2 puffs twice daily with a spacer for the next 4 weeks. If she notes improvement, we will plan to treat her as an asthmatic and continue her on ICS inhaler therapy. - We will check an echocardiogram to r/o valvular heart disease and heart failure. - Continue exercise as tolerated. 2. DIOGENES - Not currently using Cpap therapy. This may be contributing to the decline in her breathing. - She needs to resume Cpap. 3. Possible Descending Aortic Aneurysm - Scheduled to see CT surgery next month. We will have her follow up in 4-6 weeks to assess her response to inhaler therapy. I have spent 62 minutes reviewing the patient record, face to face with the patient in discussion of test results and plans for further management and in documentation and coordination of care. Excluding time spent on other separate services such as performing procedures or test interpretation, if applicable. Baylee Gross DO Pulmonary and Critical Care Medicine Note documented in this encounter Plan of Treatment Upcoming Encounters Date Type Department Care Team (Late st Contact Info) Description 07/29/2024 10:45 AM EST Office Visit [facility] CARDIOLOGY [address] [facility] [address] [place] [address] Goyo Khan MD [address] [facility] [address] [place], [place] [id number] 09/02/2024 11:30 AM EDT Office Visit [facility] CARDI[facility]IC SURGERY [address] [facility] [address] [place] [address] Dee Jaimes APRN [address] [facility] [address] [place], [place] [address] Scheduled Orders Name Type Priority Associated Diagnoses Orde r Schedule SCANNED - PULMONARY RESULTS PFT Ordered: 03/20/2022 documented as of this encounter Results * ECHO COMPLETE W/ DOPPLER AND COLOR FLOW (04/04/2022 12:52 PM EST) Target HR (85%) 128 bpm Max. Pred. HR (100%) 150 bpm EF(MOD-bp) 58.0 % LVIDd 3.8 cm LVIDs 2.5 cm IVSd 1.04 cm LVPWd 1.26 cm FS 33.2 % IVS/LVPW 0.83 cm ESV(cubed) 15.8 ml EDV(cubed) 53.2 ml LV mass(C)d 141.5 grams EDV(MOD-sp2) 32.0 ml EDV(MOD-sp4) 33.0 ml ESV(MOD-sp2) 14.0 ml ESV(MOD-sp4) 14.0 ml SV(MOD-sp2) 18.0 ml SV(MOD-sp4) 19.0 ml EF(MOD-sp2) 56.3 % EF(MOD-sp4) 57.6 % MV E max abdirashid 69.1 cm/sec MV A max abdirashid 90.8 cm/sec MV dec time 0.24 msec MV E/A 0.76 LA ESV Index (BP) 26.6 ml/m2 LA dimension (2D) 4.0 cm LV V1 max 110.0 cm/sec LV V1 max PG 4.8 mmHg LV V1 mean PG 3.0 mmHg LV V1 VTI 25.4 cm Ao pk abdirashid 121.0 cm/sec Ao max PG 5.9 mmHg Ao mean PG 4.0 mmHg Ao V2 VTI 31.5 cm MV P1/2t 79.3 msec MVA(P1/2t) 2.8 cm2 MV dec slope 366.0 cm/sec2 TR max abdirashid 213.7 cm/sec TR max PG 18.3 mmHg PA acc slope 650.0 cm/sec2 PA acc time 0.12 sec PA pr(Accel) 26.8 mmHg Ao root diam 3.1 cm BH CV VAS BP RIGHT ARM 130/80 mmHg IVRT 98.0 msec Med Peak E' Abdirashid 5.70 cm/sec Lat Peak E' Abdirashid 7.6 cm/sec Avg E/e' ratio 10.39 RV Base 3.00 cm RV Mid 2.10 cm RV Length 6.00 cm TAPSE (>1.6) 2.30 cm RV S' 12.10 cm/sec Echo EF Estimated 60.0 % Anatomical Region Laterality Modality Ultrasound Narrative 04/04/2022 1:59 PM EST ?Estimated left ventricular EF = 60% ?The cardiac valves are anatomically and functionally normal. Left Ventricle Left ventricular systolic function is normal. Estimated left ventricular EF = 60% Normal left ventricular cavity size and wall thickness noted. All left ventricular wall segments contract normally. Right Ventricle Normal right ventricular cavity size, wall thickness, systolic function and septal motion noted. Left Atrium Normal left atrial size and volume noted. Right Atrium Normal right atrial cavity size noted. Right atrial volume is 24 ml. Mitral Valve The mitral valve is structurally normal with no regurgitation or significant stenosis present. Tricuspid Valve The tricuspid valve is structurally normal with no significant stenosis present. Trace to mild tricuspid valve regurgitation is present. Aortic Valve The aortic valve is structurally normal with no regurgitation or stenosis present. Pulmonic Valve The pulmonic valve is structurally normal with no regurgitation or significant stenosis present. Pericardium There is no evidence of pericardial effusion. . Additional Study Details The quality of the study is limited due to patient body habitus and breast implants. Greater Vessels No dilation of the aortic root is present. Inferior vena cava not well visualized. us Baylee V. Case DO CV ECHO ORDERABLES Final Resu lt documented in this encounter Visit Diagnoses Diagnosis Dyspnea on exertion- Primary Other dyspnea and respiratory abnormality Obstructive sleep apnea on CPAP Dyspnea on exertion Other dyspnea and respiratory abnormality documented in this encounter Care Teams Digital Sales Director Relationship Specialty Start Date End Date Talon Barragan MD [facility] [address] [facility] [facility] [address] [place] [address] PCP - General Family Medicine 03/20/22 documented as of this encounter
--- OUTSIDE RECORDS SUMMARY | 2024-05-04 22:49 | XMS_ITS | Encounter Summary ---
[facility] Address [address] [place] [address] Care Team Providers Care Flower Buncher Or Picker Name Role Phone Rafael Barajas MD Primary Care Provider [phone] Reason for Visit * Diagnostic Imaging (Routine) - Closed Specialty Diagnoses / Procedures Referred By Heather santos Referred To Contact Diagnoses Hypertensive heart disease without heart failure Labile hypertension Obstructive sleep apnea on CPAP Mild obesity Other chest pain Procedures Stress Test With Myocardial Perfusion Santo Salinas MD [address] [place] [address] Phone: tel: fax: [facility] [address] [place] [address] Phone: tel: Referral ID Status Reason Start Date Expiration Date Visits Re quested Visits Authorized [id number] Closed 05/29/2016 05/29/2017 4 4 Encounter Details Date Type Department Care Team (Late st Contact Info) Description 06/19/2016 10:14 AM EST - 06/19/2016 11:59 PM EST Hospital Encounter [facility] [address] [facility] [address] [place] [address] Santo Salinas MD [address] [place] [id number] Discharge Disposition: Home or Self Care Social History Tobacco Use Types Packs/Day Years Used Date Smoking Tobacco: Never Comments No Sex and Gender Information Value Date Recorded Sex Assigned at Not on file Legal Sex Female 1:29 PM EDT Gender Identity Not on file Sexual Orientation Not on file documented as of this encounter Medications at Time of Discharge anastrozole (ARIMIDEX) 1 MG tablet Take 1 mg by mouth Daily. 03/20/2022 aspirin 81 MG EC tablet Take 81 mg by mouth Daily. 06/28/2020 bisoprolol-hydro chlorothiazide (ZIAC) 5-6.25 MG per tablet Take 1 tablet by mouth Daily. 90 tablet 3 06/06/2016 07/15/2017 Diclofenac Potassium (ZIPSOR) 25 MG capsule Take 75 mg by mouth 2 (Two) Times a Day. 06/19/2018 mometasone (NASONEX) 50 MCG/ACT nasal spray 2 sprays into the nostril(s) as directed by provider As Needed. 09/03/2023 montelukast (SINGULAIR) 10 MG tablet Take 10 mg by mouth Every Night. 06/19/2018 potassium chloride (K-DUR,KLOR-CON) 20 MEQ CR tablet Take 1 tablet by mouth Daily. 90 tablet 3 06/06/2016 07/15/2017 VITAMIN D, CHOLECALCIFEROL, PO Take by mouth Daily. 06/18/2017 documented as of this encounter Plan of Treatment Upcoming Encounters Date Type Department Care Team (Late st Contact Info) Description 07/29/2024 10:45 AM EST Office Visit [facility] CARDIOLOGY [address] [facility] [address] [place] [address] Goyo Khan MD [address] [facility] [address] [place] [address] 09/02/2024 11:30 AM EDT Office Visit [facility] CARDIOTHORACIC SURGERY [address] [facility] [address] [place] [address] Dee Jaimes, HOSPITAL CLERK [address] [facility] [address] [place] [address] documented as of this encounter Procedures Procedure Name Priority Date/Time Associated Diagnosis Comments STRESS TEST, EXERCISE WITH MYOCARDIAL PERFUSION SPECT (SINGLE STUDY) Routine 06/19/2016 12:03 PM EST Hypertensive heart disease without heart failure Labile hypertension Obstructive sleep apnea on CPAP Mild obesity Other chest pain documented in this encounter Results * STRESS TEST, EXERCISE WITH MYOCARDIAL PERFUSION SPECT (SINGLE STUDY) (06/19/2016 12:03 PM EST) CV STRESS PROTOCOL 1 Willian Stage 1 1 Duration Min Stage 1 3 Duration Sec Stage 1 0 Grade Stage 1 10 Speed Stage 1 1.7 BH CV STRESS METS STAGE 1 5 Baseline HR 66 bpm Baseline BP 140/80 mmHg Target HR (85%) 132 bpm Max. Pred. HR (100%) 155 bpm HR Stage 1 123 BP Stage 1 156/78 Stress Comments Stage 1 short of breathe, Stage 2 2 Duration Min Stage 2 2 Duration Sec Stage 2 13 Grade Stage 2 12 Speed Stage 2 2.5 BH CV STRESS METS STAGE 2 7.5 Peak BP 200/68 mmHg Exercise duration (min) 5 min Exercise duration (sec) 13 sec Estimated workload 5.8 METS HR Stage 2 141 BP Stage 2 200/68 Peak HR 141 bpm Percent Max Pred HR 90.97 % Percent Target HR 107 % Recovery HR 82 bpm Recovery BP 134/78 mmHg Nuc Stress EF 89 % Anatomical Region Laterality Modality Nuclear Medicine Narrative 06/19/2016 7:08 PM EST ?? Patient c/o extreme shortness of breath with exercise; no chest pain with exercise. ?? Left ventricular ejection fraction is hyperdynamic (Calculated EF > 70%). ?? GI artifact is present. ?? Myocardial perfusion imaging indicates a normal myocardial perfusion study with no evidence of ischemia. ?? Impressions are consistent with a low risk study. ?? There is no prior study available for comparison. ?? Moderate risk for ischemic heart disease based on abnormal De Santiago treadmill score. ?? Findings consistent with an equivocal ECG stress test. ?? Acceptable Cardiolite GXT suggestive of low probability for significant focal obstructive coronary artery disease despite equivocal EKG changes during exercise to 90% of predicted maximum heart rate and 85% of predicted exercise capacity with hypertensive blood pressure response and preserved systolic left ventricular function. Stress Findings Equivocal ECG evidence of myocardial ischemia.Negative clinical evidence of myocardial ischemia. Findings consistent with an equivocal ECG stress test. Study Impression Myocardial perfusion imaging indicates a normal myocardial perfusion study with no evidence of ischemia. Impressions are consistent with a low risk study. There is no prior study available for comparison. Rest Perfusion Defect 1 No rest myocardial perfusion defect noted. Stress Perfusion Defect 1 No stress myocardial perfusion defect noted. Nuclear Study Description A 1-day rest/stress protocol myocardial perfusion imaging study was performed. A 20 G peripheral IV was started in the right antecubital fossa. While at rest, the patient was injected intravenously with 9.7 mCi of technetium sestamibi at 10:25 EST. Rest imaging was performed approximately 60 minutes after the injection. While at peak stress, the patient was injected intravenously with 33 mCi of technetium sestamibi at 12:05 EST. Stress imaging was performed approximately 65 minutes after the injection. The total amount of radiation received in the study is about 12.88 mSv. Rest ECG Baseline ECG of normal sinus rhythm noted. Normal baseline ECG noted. There was no ST segment deviation noted. Stress ECG Stress ECG rhythm of sinus tachycardia noted. Non-specific ST-T wave changes noted. Horizontal ST segment depression of 1 mm was noted during stress in the inferolateral leads (II, III, aVF, V5 and V6), beginning at 4 minutes of stress, and returning to baseline after 5-9 minutes of recovery. Arrhythmias during stress: none. Arrhythmias during recovery: none. There were no significant arrhythmias noted during the test. ECG was interpretable and indicates an abnormal stress ECG. Abnormal with interpretable ST segment stress ECG interpretation. Ventricle Size / Description Left ventricular ejection fraction is hyperdynamic (Calculated EF > 70%). Normal LV cavity size. Normal LV wall motion noted. Normal RV cavity size. Nuclear Perfusion Images Overall image quality is good. GI artifact is present. Stress Description A stress test was performed following the Willian protocol. The patient achieved the target heart rate. The test was stopped because the patient complained of fatigue and shortness of breath. The patient reported shortness of breath during the stress test. Onset of symptoms occurred at stage 1 of the protocol. The patient experienced no angina during the stress test. moderate risk for ischemic heart disease. Heart rate demonstrated a normal response to exercise. Blood pressure demonstrated a hypertensive response to exercise. Overall, the patient's exercise capacity was mildly impaired. Perfusion Scoring Resting Summed Score: 0 Percent Normal: 0.00% The left ventricular perfusion is normal. Perfusion Scoring Stress Summed Score: 0 Percent Normal: 0.00% The left ventricular perfusion is normal. us Santo Salinas MD CV STRESS ORDERABLES Final Res ult documented in this encounter Visit Diagnoses Not on filedocumented in this encounter Care Teams Flower Buncher Or Picker Relationship Specialty Start Date End Date Rafael Barajas MD [facility] [address] [facility] [address] [place] [address] PCP - General 04/12/15 03/19/22 documented as of this encounter
--- OUTSIDE RECORDS SUMMARY | 2024-05-04 22:49 | XMS_ITS | Encounter Summary ---
[facility] Address [address] [place] [address] Care Team Providers Care Overhauler Helper Name Role Phone Rafael Barajas MD Primary Care Provider [phone] Reason for Referral * Diagnostic Imaging (Routine) - Closed Specialty Diagnoses / Procedures Referred By Heather santos Referred To Contact Diagnoses BENITEZ (dyspnea on exertion) Diaphoresis Chest tightness Procedures Stress Test With Myocardial Perfusion One Day Santo Salinas MD [address] [facility] [address] [place] [address] Phone: tel: fax: [facility] [address] [place] [address] Phone: tel: Referral ID Status Reason Start Date Expiration Date Visits Re quested Visits Authorized [id number] Closed 10/17/2021 10/17/2022 4 4 Reason for Visit * Diagnostic Imaging (Routine) - Closed Specialty Diagnoses / Procedures Referred By Heather santos Referred To Contact Diagnoses BENITEZ (dyspnea on exertion) Diaphoresis Chest tightness Procedures Stress Test With Myocardial Perfusion One Day Santo Salinas MD [address] [place] [address] Phone: tel: fax: [facility] [address] [place] [address] Phone: tel: Referral ID Status Reason Start Date Expiration Date Visits Re quested Visits Authorized [id number] Closed 10/17/2021 10/17/2022 4 4 Encounter Details Date Type Department Care Team (Late st Contact Info) Description 11/28/2021 7:52 AM EDT - 11/28/2021 11:59 PM EDT Hospital Encounter [facility] [address] [facility] [address] [place] [address] Santo Salinas MD [address] [facility] [address] [place] [id number] BENITEZ (dyspnea on exertion); Diaphoresis; Chest tightness Discharge Disposition: Home or Self Care Social History Tobacco Use Types Packs/Day Years Used Date Smoking Tobacco: Never Smokeless Tobacco: Never Alcohol Use Standard Drinks/Week Comments Yes 0 (1 standard drink = 0.6 oz pur e alcohol) social Comments No Sex and Gender Information Value Date Recorded Sex Assigned at Not on file Legal Sex Female 1:29 PM EDT Gender Identity Not on file Sexual Orientation Not on file documented as of this encounter Last Filed Vital Signs Vital Sign Reading Time Taken Comments Blood Pressure 144/92 11/28/2021 9:58 AM EDT Pulse 54 11/28/2021 9:58 AM EDT Temperature - - Respiratory Rate - - Oxygen Saturation - - Inhaled Oxygen Concentration - - Weight 92.5 kg (204 lb) 11/28/2021 10:21 AM EDT Height 167.6 cm (5' 6 ) 11/28/2021 10:21 AM EDT Body Mass Index 32.93 11/28/2021 10:21 AM EDT documented in this encounter Medications at Time of Discharge Cholecalciferol (VITAMIN D3) 2000 units tablet Take 1 tablet by mouth Daily. OTC cyanocobalamin (VITAMIN B-12) 500 MCG tablet Take 1 tablet by mouth Daily. OTC Probiotic Product (PROBIOTIC PO) Take 1 tablet by mouth Daily. OTC anastrozole (ARIMIDEX) 1 MG tablet Take 1 mg by mouth Daily. 2 aspirin 81 MG EC tablet Take 1 tablet by mouth Daily. 90 tablet 3 06/29/2021 3 benzonatate (TESSALON) 200 MG capsule Take 200 mg by mouth As Needed. 2 bisoprolol-hydrochl orothiazide (ZIAC) 5-6.25 MG per tablet Take 1 tablet by mouth Daily. 90 tablet 3 06/29/2021 3 calcium polycarbophil (FIBERCON) 625 MG tablet Take 625 mg by mouth Daily. 2 tablets daily 2 etodolac (LODINE) 500 MG tablet Take 500 mg by mouth 2 (Two) Times a Day. 2 gabapentin (NEURONTIN) 300 MG capsule Take 300 mg by mouth Every Night. 06/15/2019 2 meloxicam (MOBIC) 7.5 MG tablet Take 7.5 mg by mouth Daily. 09/27/2021 2 metoclopramide (REGLAN) 5 MG tablet Take 1 tablet by mouth Daily. 05/27/2020 4 mometasone (NASONEX) 50 MCG/ACT nasal spray 2 sprays into the nostril(s) as directed by provider As Needed. 4 oxybutynin (DITROPAN) 5 MG tablet Take 5 mg by mouth Daily. 2 potassium chloride (K-DUR,KLOR-CON) 20 MEQ CR tablet Take 1 tablet by mouth Daily. 90 tablet 3 06/29/2021 3 rosuvastatin (CRESTOR) 10 MG tablet Take 1 tablet by mouth Daily. 90 tablet 3 06/29/2021 3 Unable to find 1 each 1 (One) Time. Med Name: Evening Prim Isabelle 1 tablet daily 2 documented as of this encounter Plan of Treatment Upcoming Encounters Date Type Department Care Team (Perla rendon Contact Info) Description 07/29/2024 10:45 AM EST Office Visit [facility] CARDIOLOGY [address] [facility] [address] [place] [address] Goyo Khan MD [address] [facility] [address] [place] [address] 09/02/2024 11:30 AM EDT Office Visit [facility] CARDIOTHORACIC SURGERY [address] [facility] [address] [place] [address] Dee Jaimes, HANGER OFF [address] [facility] [address] [place] [address] documented as of this encounter Procedures Procedure Name Priority Date/Time Associated Diagnosis Comments STRESS TEST, EXERCISE WITH MYOCARDIAL PERFUSION SPECT (MULTI STUDY) Routine 11/28/2021 10:00 AM EDT BENITEZ (dyspnea on exertion) Diaphoresis Chest tightness documented in this encounter Results * STRESS TEST, EXERCISE WITH MYOCARDIAL PERFUSION SPECT (MULTI STUDY) (11/28/2021 10:00 AM EDT) Target HR (85%) 128 bpm Max. Pred. HR (100%) 150 bpm BH CV REST NUCLEAR ISOTOPE DOSE 9.7 mCi BH CV STRESS PROTOCOL 1 Willian Stage 1 1 HR Stage 1 131 BP Stage 1 160/90 O2 Stage 1 98 Duration Min Stage 1 4 Duration Sec Stage 1 0 Grade Stage 1 10 Speed Stage 1 1.7 BH CV STRESS METS STAGE 1 5 Baseline HR 54 bpm Baseline BP 144/92 mmHg O2 sat rest 97 % Peak HR 133 bpm Percent Max Pred HR 88.67 % Percent Target HR 104 % Peak BP 160/90 mmHg O2 sat peak 95 % Recovery HR 70 bpm Recovery BP 140/86 mmHg Recovery O2 99 % Exercise duration (min) 4 min Exercise duration (sec) 0 sec Estimated workload 3.2 METS BH CV STRESS NUCLEAR ISOTOPE DOSE 32.9 mCi Nuc Stress EF 77 % Nuclear Prior Study 3 Anatomical Region Laterality Modality Nuclear Medicine Narrative 11/28/2021 6:10 PM EDT ?? Patient reported some chest fullness , but denied any chest pain; did experience significant shortness of breath, that limited her ablity to exercise. ?? THR of 127/minute achieved at 1:09 minutes. ?? Expected exercise duration = 5:50 minutes; actual exercise duration = 4:00 minutes; SONDRA (+28); towards the end of Willian protocol stage 1, patient's breathing became very labored, and her gait unsteady. Treadmill was slowed/lowered to allow the Cardiolite to circulate well. ?? No significant ST or T wave changes identified. ?? Left ventricular ejection fraction is hyperdynamic (calculated EF > 70%); WNL TID = 1.11. ?? Breast attenuation artifact is present. ?? Raw images reviewed with the following abnormalities noted: mild movement at rest and post stress. ?? Myocardial perfusion imaging indicates a normal myocardial perfusion study with no evidence of ischemia. ?? Impressions are consistent with a low risk study. ?? There is no prior study available for comparison. ?? Findings consistent with an abnormal ECG stress test. ?? WNL room air oximetry before, during, and after exercise (95-99%). ?? Qualitative review of the thoracic CT scan slices does not demonstrate significant epicardial coronary artery calcification. ?? Acceptable probably negative limited quantitative SPECT gated Cardiolite CT scan exercise stress test without definitive ischemic ST-T changes or myocardial perfusion abnormalities suggestive of low probability for significant focal obstructive coronary artery disease with preserved systolic left ventricular function (LVEF 0.77) following exercise to 89% predicted maximal heart rate and only 72% predicted exercise capacity consistent with moderate physical deconditioning. Stress Findings No ECG evidence of myocardial ischemia. Negative clinical evidence of myocardial ischemia. Findings consistent with an abnormal ECG stress test. Study Impression Myocardial perfusion [...] myocardial perfusion imaging study was performed. A 22 G peripheral IV was started in the right antecubital fossa. While at rest, the patient was injected intravenously with 9.7 mCi of technetium sestamibi at 08:05 EDT. Rest imaging was performed approximately 60 minutes after the resting injection. While at peak stress, the patient was injected intravenously with 32.9 mCi of technetium sestamibi at 10:15 EDT. Stress imaging was performed approximately 55 minutes after the injection. The total amount of radiation received in the study is about 12.85 mSv. Unknown if prior studies were available for comparison. . Rest ECG Baseline ECG rhythm of sinus bradycardia noted. Non-specific ST-T wave changes noted. There was no ST segment deviation noted. Stress ECG Stress ECG rhythm of sinus tachycardia noted. Non-specific ST-T wave changes noted during stress. There was no ST segment deviation noted during stress. Arrhythmias during stress: rare PVCs. Arrhythmias were not significant during stress. Stress ECG was interpretable and is consistent with an abnormal stress ECG. Ventricle Size / Description Left ventricular ejection fraction is hyperdynamic (Calculated EF > 70%). . Normal LV cavity size. Normal LV wall motion noted. Normal RV cavity size. Nuclear Perfusion Images Overall image quality is good. Breast attenuation artifact is present. Raw images reviewed with the following abnormalities noted: mild movement at rest and post stress. Stress Description A stress test was performed following the Willian protocol. The patient achieved the target heart rate. The patient requested the test to be stopped because the patient experienced fatigue and shortness of breath. The test was stopped because the clinician observed shortness of breath. The clinician observed shortness of breath and wheezing during the stress test. The patient reported dyspnea and shortness of breath during the stress test. Onset of symptoms occurred at stage 1 of the protocol. The patient experienced no angina during the stress test. Moderate risk for ischemic heart disease. Blood pressure demonstrated a hypertensive response to stress. Heart rate demonstrated an exaggerated response to stress. Overall, the patient's exercise capacity was moderately impaired. Recovery ECG During recovery, the patient complained of no significant symptoms following stress. Sinus rhythm was noted during recovery. Non-specific ST-T wave changes noted on ECG during recovery stage. There was no ST segment deviation noted during recovery. There were no arrhythmias during recovery. There were no significant arrhythmias noted during recovery. Test Custom Grinder ECG [place] Perfusion Scoring Resting Summed Score: 0 Percent Normal: 0.00% The left ventricular perfusion is normal. Perfusion Scoring Stress Summed Score: 0 Percent Normal: 0.00% The left ventricular perfusion is normal. us Santo Salinas MD CV STRESS ORDERABLES Final Res ult documented in this encounter Visit Diagnoses Diagnosis BENITEZ (dyspnea on exertion) Other dyspnea and respiratory abnormality Diaphoresis Generalized hyperhidrosis Chest tightness Other chest pain documented in this encounter Administered Medications Inactive Administered Medications - up to 3 most recent administrations Medication Order MAR Action Action Date Dose Rate Site technetium sestamibi (CARDIOLITE) injection 1 dose 1 dose, Intravenous, Once in Imaging, On Fri11/28/21 at 0809, For 1 dose, Millicuries: 9.7 Given 11/28/2021 8:07 AM EDT 1 dose technetium sestamibi (CARDIOLITE) injection 1 dose 1 dose, Intravenous, Once in Imaging, On Fri11/28/21 at 1015, For 1 dose, Millicuries: 32.9 Given 11/28/2021 10:15 AM EDT 1 dose documented in this encounter Care Teams Overhauler Helper Relationship Specialty Start Date End Date Rafael Barajas MD [facility] [address] [facility] [address] [place] [address] PCP - General 04/12/15 03/19/22 documented as of this encounter
--- OUTSIDE RECORDS SUMMARY | 2024-05-04 22:49 | XMS_ITS | Encounter Summary ---
[facility] Address [address] [place] [address] Care Team Providers Care Bottle Inspector Name Role Phone Rafael Barajas MD Primary Care Provider + [phone] Reason for Visit * Reason Onset Date Comments Med Refill 06/06/2016 Encounter Details Date Type Department Care Team (Late st Contact Info) Description 06/06/2016 Refill [facility] CARDIOLOGY [address] [facility] [address] [place] [id number] Santo Salinas MD [address] [facility] [address] [place] [address] Med Refill Social History Tobacco Use Types Packs/Day Years Used Date Smoking Tobacco: Never Comments No Sex and Gender Information Value Date Recorded Sex Assigned at Not on file Legal Sex Female 1:29 PM EDT Gender Identity Not on file Sexual Orientation Not on file documented as of this encounter Miscellaneous Notes * Telephone Encounter - Paco Vail RN - 06/06/2016 2:57 PM EST Patient informed refill is sent to pharmacy documented in this encounter Plan of Treatment Upcoming Encounters Date Type Department Care Team (Late st Contact Info) Description 07/29/2024 10:45 AM EST Office Visit [facility] [address] [facility] [address] [place] [id number] Goyo Khan MD [address] [facility] [address] [place] [address] 09/02/2024 11:30 AM EDT Office Visit [facility] CARDIOTHORACIC SURGERY [address] [facility] [address] [place] [address] Dee Jaimes, OUTSOLE MOLDER [address] [facility] [address] [place] [address] documented as of this encounter Visit Diagnoses Not on filedocumented in this encounter Care Teams Bottle Inspector Relationship Specialty Start Date End Date Rafael Barajas MD [address] [facility] [address] [facility] [address] [place] [address] PCP - General 04/12/15 03/19/22 documented as of this encounter
--- OUTSIDE RECORDS SUMMARY | 2024-05-04 22:49 | XMS_ITS | Encounter Summary ---
Author Organization [facility] yste Address [address] [place] [address] Care Team Providers Care Byproduct Engineer Name Role Phone Rafael Barajas MD Primary Care Provider [phone] Reason for Visit * Reason Comments hypertensive heart disease without heart failure Shortness of Breath due to getting her 2 nd covid vaccine Encounter Details Date Type Department Care Team (Late st Contact Info) Description 06/28/2020 1:00 PM EST Office Visit [facility] [address] [facility] [address] [place] [address] Santo Salinas MD [address] [facility] [address] [place] [address] Hypertensive heart disease without heart failure (Primary Dx); Labile hypertension; Dyslipidemia; Mild obesity; Obstructive sleep apnea on CPAP Social History [...] Sign Reading Time Taken Comments Blood Pressure 149/81 06/28/2020 12:50 PM EST Pulse 70 06/28/2020 12:50 PM EST Temperature - - Respiratory Rate - - Oxygen Saturation 97% 06/28/2020 12:50 PM EST Inhaled Oxygen Concentration - - Weight 94.3 kg (208 lb) 06/28/2020 12:49 PM EST Height 167.6 cm (5' 6 ) 06/28/2020 12:49 PM EST Body Mass Index 33.57 06/28/2020 12:49 PM EST documented in this encounter Progress Notes * Santo Salinsa MD - 06/28/2020 1:00 PM EST Subjective: Encounter Date:06/28/2020 Patient ID: Juany Alarcon is a 70 y.o. 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 ?? REFERRING PHYSICIAN/IVORY POLISHER: Bassem Barragan MD CURRENT PHYSICIAN: ??Rafael Barajas MD INWARD TOLL OPERATOR: Katarina Tan MD NEUROSURGEON: Adrian Faye MD/ Edwin Fernandez MD ([facility]) ORTHOPEDIC SURGEON: ??Josh Arellano MD ONCOLOGIC SURGEON: Roque Crouch MD SLEEP PHYSICIAN:??Fito Mederos MD Chief Complaint: Chief Complaint Patient presents with ??? hypertensive heart disease without heart failure ??? Shortness of Breath due to getting her 2nd covid vaccine Problem List: 1. Possible hypertensive cardiovascular disease: a. Remote progressive chest pain syndrome with [...] capacity, May 2016. c. Residual class I symptoms. 2. Labile hypertension. 3. Migraine headaches. 4. Intermittent sinusitis/allergic rhinitis. 5. Hiatal hernia/probable GERD syndrome with recent progressive dyspepsia and apparent acceptable EGD/colonoscopy, 2019 - data deficit 6. Intermittent chronic low back pain. 7. H/O sleep apnea with CPAP use. 8. Post-menopausal status. 9. Abnormal head CT scans, calcified right-sided meningioma, August 2001. 10. Remote operations: a. section, 1990. b. Laparoscopic cholecystectomy, May 2004. c. Right hip ORIF, spring 2008. 11. Abnormal cervical spine series suggestive of cervical spine osteoarthritis, August 2001. 12. Mild-moderate obesity (BMI 33.57). 13. Intractable right knee pain with subsequent [...] mastectomy (May 2015). 18. Bilateral carpal tunnel release, January 2018 19. Sciatic back pain, April 2018 20. Left total knee replacement September 2018 21. Recent concern about thyromegaly with apparent acceptable ultrasound - data deficit, 2019. Allergies Allergen Reactions ??? Morphine And Related Confusion ??? Penicillins Rash Current Outpatient Medications: ??? anastrozole (ARIMIDEX) 1 MG tablet, Take by mouth Daily., Disp: , Rfl: ??? aspirin 81 MG EC tablet, Take 81 mg by mouth Daily., Disp: , Rfl: ??? bisoprolol-hydrochlorothiazide (ZIAC) 5-6.25 MG per tablet, Take 1 tablet by mouth Daily., Disp: 90 tablet, Rfl: 3 ??? calcium polycarbophil (FIBERCON) 625 MG tablet, Take 625 mg by mouth Daily. 2 tablets daily, Disp: , Rfl: ??? Cholecalciferol (VITAMIN D3) 2000 units tablet, Take 2,000 Units by mouth Daily., Disp: , Rfl: ??? cyanocobalamin (VITAMIN B-12) 500 MCG tablet, Take 500 mcg by mouth Daily., Disp: , Rfl: ??? gabapentin (NEURONTIN) 100 MG capsule, Take 300 mg by mouth Daily., Disp: , Rfl: ??? metoclopramide (REGLAN) 5 MG tablet, Take 5 mg by mouth Daily., Disp: , Rfl: ??? mometasone (NASONEX) 50 MCG/ACT nasal spray, 2 sprays into the nostril(s) as directed by provider As Needed., Disp: , Rfl: ??? potassium chloride (K-DUR,KLOR-CON) 20 MEQ CR tablet, Take 1 tablet by mouth Daily., Disp: 90 tablet, Rfl: 3 ??? Probiotic Product (PROBIOTIC PO), Take 1 tablet by mouth Daily., Disp: , Rfl: ??? rosuvastatin (CRESTOR) 10 MG tablet, Take 1 tablet by mouth Daily., Disp: 90 tablet, Rfl: 3 ??? Unable to find, 1 each 1 (One) Time. Med Name: Evening Prim Isabelle 1 tablet daily, Disp: , Rfl: History of Present Illness: Patient returns for scheduled 12-month follow up. She denies any chest pain, shortness of breath, palpitations, dizziness, presyncope, or syncope. The patient has had her second Covid vaccination. She had some chilling afterwards as well as a headache for a day. She has also had her shingles and influenza vaccinations. She had laboratory testing in May 2020. Whenever she checks her blood pressure it is always WNL. Due to the weather, the patient has not done muchambulating. She is compliant with her CPAP nightly. She has lost 4 close friends to [employer] in the last month or two. Review of Systems Constitution: Negative. Obtained and negative except as outlined in problem list and HPI. Procedures Objective: Vitals: 06/28/20 1249 06/28/20 1250 BP: 137/75 149/81 BP Location: Right arm Right arm Patient Position: Sitting Standing Pulse: 61 70 SpO2: 97% 97% Weight: 94.3 kg (208 lb) Height: 167.6 cm (66 ) Recheck blood pressure right arm sitting was 122/64 Body mass index is 33.57 kg/m??. Last weight: 200 lbs Vitals signs reviewed. Constitutional: Appearance: Well-developed. Neck: Thyroid: No thyromegaly. Vascular: No carotid bruit or JVD. Lymphadenopathy: No cervical adenopathy. Pulmonary: Effort: Pulmonary effort is normal. Breath sounds: Decreased breath sounds present. No wheezing. No rhonchi. No rales. Cardiovascular: Regular rhythm. No gallop. No S3 gallop. Pulses: Dorsalis pedis: 2+ bilaterally. Posterior tibial: 2+ bilaterally. Edema: Peripheral edema absent. Abdominal: Palpations: Abdomen is soft. There is no abdominal mass. Tenderness: There is no abdominal tenderness. There is no guarding. Musculoskeletal: Normal range of motion. Skin: General: Skin is warm and dry. Findings: No rash. Neurological: Mental Status: Alert and oriented to person, place, and time. Lab Review (reviewed with patient by letter - no recommended changes): Lab Results Component Value Date BUN 20 06/20/2020 CREATININE 1.01 (H) 06/20/2020 EGFRIFNONA 57 (L) 06/20/2020 EGFRIFAFRI 66 06/20/2020 BCR 20 06/20/2020 NA 142 06/20/2020 K 4.0 06/20/2020 CL 105 06/20/2020 CO2 23 06/20/2020 CALCIUM 9.4 06/20/2020 PROTENTOTREF 6.7 06/20/2020 ALBUMIN 4.1 06/20/2020 LABIL2 1.6 06/20/2020 AST 20 06/20/2020 ALT 20 06/20/2020 Lab Results Component Value Date WBC 6.2 06/20/2020 HGB 12.4 06/20/2020 HCT 37.4 06/20/2020 MCV 90 06/20/2020 PLT 210 06/20/2020 Lab Results Component Value Date TSH 1.210 06/20/2020 Lab Results Component Value Date TRIG 84 06/20/2020 TRIG 96 06/22/2018 TRIG 82 06/13/2017 Lab Results Component Value Date HDL 53 06/20/2020 HDL 63 06/22/2018 HDL 56 06/13/2017 Lab Results Component Value Date LDL 62 06/20/2020 LDL 57 06/22/2018 LDL 119 (H) 06/13/2017 MRI Cervical Spine, 04/13/2020: Degenerative disc disease. No significant spinal stenosis. No significant foraminal narrowing. Assessment: Overall continued acceptable course with no new interim cardiopulmonary complaints with acceptable functional status. We will defer additional diagnostic or therapeutic intervention from a cardiac perspective at this time. We are pleased with her recent laboratory testing results. Diagnosis Plan 1. Hypertensive heart disease without heart failure No recurrent angina pectoris or CHF on current activity schedule; continue current treatment 2. Labile hypertension Controlled, continue current cardiac medications 3. Dyslipidemia Excellent lipid panel May 2020, continue rosuvastatin 4. Mild obesity Increase physical activity as tolerated Plan: 1. Patient to continue current medications and close follow up with the above providers. 2. Tentative cardiology follow up in 1 year or patient may return sooner PRN. Scribed for Santo Salinas MD by Keesha Claire, CAMPBELL. 06/28/2020 12:53 EST I, Santo Salinas MD, [facility], personally performed the services described in this documentation as scribed by the above named individual in my presence, and it is both accurate and complete. At 13:23EST on 06/28/2020 documented in this encounter Plan of Treatment Upcoming Encounters Date Type Department Care Team (Late st Contact Info) Description 07/29/2024 10:45 AM EST Office Visit [facility] [address] [facility] [address] [place] [address] Goyo Khan MD [address] [facility] [address] [place] [address] 09/02/2024 11:30 AM EDT Office Visit [facility] CARDIOTHORACIC SURGERY [address] [facility] [address] [place] [address] Dee Jaimes, CONTRACT ADMINISTRATIVE ASSISTANT [address] [facility] [address] [place] [address] documented as of this encounter Visit Diagnoses Diagnosis Hypertensive heart disease without heart failure- Primary Unspecified hypertensive heart disease without heart failure Labile hypertension Dyslipidemia Other and unspecified hyperlipidemia Mild obesity Obstructive sleep apnea on CPAP documented in this encounter Care Teams Byproduct Engineer Relationship Specialty Start Date End Date Rafael Barajas MD [address] [place] [facility] [address] [place] [address] PCP - General 04/12/15 03/19/22 documented as of this encounter
--- OUTSIDE RECORDS SUMMARY | 2024-05-04 22:49 | XMS_ITS | Encounter Summary ---
[facility] Address [address] [place] [address] Care Team Providers Care Ware Finisher Name Role Phone Rafael Barajas MD Primary Care Provider [phone] Encounter Details Date Type Department Care Team (Late st Contact Info) Description 05/29/2016 11:15 AM EST Lab [place] [id number] [facility] [address] [place] [address] Hypertensive heart disease without heart failure; Labile hypertension; Obstructive sleep apnea on CPAP; Mild obesity; Other chest pain Social History Tobacco Use Types Packs/Day Years [...] Description 07/29/2024 10:45 AM EST Office Visit [facility] CARDIOLOGY [address] [facility] [address] [place] [address] Goyo Khan MD [address] [facility] [address] [place] [address] 09/02/2024 11:30 AM EDT Office Visit [facility] CARDIOTHORACIC SURGERY [address] [address] Dee Jaimes, ORCHESTRA TEACHER [address] [facility] [address] [place] [address] documented as of this encounter Procedures Procedure Name Priority Date/Time Associated Diagnosis Comments SEDIMENTATION RATE Routine 05/29/2016 11 :05 AM EST Hypertensive heart disease without heart failure Labile hypertension Obstructive sleep apnea on CPAP Mild obesity Other chest pain D-DIMER, QUANTITATIVE Routine 05/29/2016 11:05 AM EST Hypertensive heart disease without heart failure Labile hypertension Obstructive sleep apnea on CPAP Mild obesity Other chest pain TSH Routine 05/29/2016 11:05 AM EST Hypertensive heart disease without heart failure Labile hypertension Obstructive sleep apnea on CPAP Mild obesity Other chest pain B-TYPE NATRIURETIC PEPTIDE Routine 05/29/2016 11:05 AM EST Hypertensive heart disease without heart failure Labile hypertension Obstructive sleep apnea on CPAP Mild obesity Other chest pain documented in this encounter Results * Sedimentation Rate (05/29/2016 11:05 AM EST) Sed Rate 11 0 - 30 mm/hr 05/29/2016 12:04 PM EST [facility] Blood Venipuncture / Unknown 05/29/2016 11:05 AM EST 05/29/2016 11:05 AM EST Santo Salinas MD LAB BLOOD ORDERABLES Final Res ult [facility]
[address] [place] [address], * BNP (05/29/2016 11:05 AM EST) BNP 8.0 0.0 - 100.0 pg/mL 05/29/2016 11:47 AM EST [facility] Blood Venipuncture / Unknown 05/29/2016 11:05 AM EST 05/29/2016 11:05 AM EST us Santo Salinas MD LAB BLOOD ORDERABLES Final Res ult [facility]
[address] [place] [address], * (ABNORMAL) D-dimer, Quantitative (05/29/2016 11:05 AM EST) D-Dimer, Quantitative 0.86(H) 0.00 - 0.50 mg/L (FEU) 05/29/2016 11:45 AM EST [facility] Blood Venipuncture / Unknown 05/29/2016 11:05 AM EST 05/29/2016 11:05 AM EST Narrative [facility] - 05/29/2016 11:45 AM EST Negative predictive value for exclusion of venous thromboembolism: < or = 0.5 mg/L (FEU) us Santo Salinas MD LAB BLOOD ORDERABLES Final Res ult Performing Organization Address [facility]/ZIP Co de Phone Number [facility]
[address] [place] [address], * TSH (05/29/2016 11:05 AM EST) Pathologist [facility] TSH 1.403 0.350 - 5.350 mIU/mL 05/29/2016 11:49 AM EST [facility] Blood Venipuncture / Unknown 05/29/2016 11:05 AM EST 05/29/2016 11:05 AM EST us Santo Salinas MD LAB BLOOD ORDERABLES Final Res ult [facility]
[address] [place] [address], [place] [phone] documented in this encounter Visit Diagnoses Diagnosis Hypertensive heart disease without heart failure Unspecified hypertensive heart disease without heart failure Labile hypertension Obstructive sleep apnea on CPAP Mild obesity Other chest pain documented in this encounter Care Teams Ware Finisher Relationship Specialty Start Date End Date Rafael Barajas MD [address] [facility] [address] [facility] [address] [place] [address] PCP - General 04/12/15 03/19/22 documented as of this encounter
--- OUTSIDE RECORDS SUMMARY | 2024-05-04 22:49 | XMS_ITS | Encounter Summary ---
[facility] Organization [facility] Address [address] [place] [address] Care Team Providers Care Retail Tire Sales Manager Name Role Phone Rafael Barajas MD Primary Care Provider [phone] Reason for Visit * Reason Comments Hypertension Encounter Details Date Type Department Care Team (Late st Contact Info) Description 06/18/2017 1:00 PM EST Office Visit [facility] C[facility] [address] [facility] [address] [place] [address] Santo Salinas MD [address] [facility] [address] [place] [address] Dyslipidemia (Primary Dx); Hypertensive heart disease without heart failure; Labile hypertension; Syncope, unspecified syncope type Social History Tobacco Use Types Packs/Day Years [...] Sign Reading Time Taken Comments Blood Pressure 135/75 06/18/2017 1:03 PM EST Pulse 61 06/18/2017 1:03 PM EST Temperature - - Respiratory Rate - - Oxygen Saturation - - Inhaled Oxygen Concentration - - Weight 90.7 kg (200 lb) 06/18/2017 12:59 PM EST Height 167.6 cm (5' 6 ) 06/18/2017 12:59 PM EST Body Mass Index 32.28 06/18/2017 12:59 PM EST documented in this encounter Progress Notes * Santo Salinas MD - 06/18/2017 1:00 PM EST Subjective: Encounter Date:06/18/2017 Patient ID: Juany Alarcon is a 67 y.o. 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 ?? REFERRING PHYSICIAN/RUN LEAD: Bassem Barragan MD CURRENT PHYSICIAN: Rafael Barajas MD ACCOUNTANT AUDITOR: Katarina Tan MD NEUROSURGEON: Adrian Faye MD ORTHOPEDIC SURGEON: Josh Arellano MD ONCOLOGIC SURGEON: Roque Crouch MD SLEEP PHYSICIAN: Fito Mederos MD Chief Complaint: Chief Complaint Patient presents with ??? Hypertension Problem List: 1. Possible hypertensive cardiovascular disease: [...] sinusitis/allergic rhinitis. 5. Hiatal hernia/probable GERD syndrome 6. Intermittent chronic low back pain. 7. H/O sleep apnea with CPAP use. 8. Post-menopausal status. 9. Abnormal head CT scans, calcified right-sided meningioma, August 2001. 10. Remote operations: a. section, 1990. b. Laparoscopic cholecystectomy, May 2004. c. Right hip ORIF, spring 2008. 11. Abnormal cervical spine series suggestive of cervical spine osteoarthritis, August 2001. 12. Mild obesity (BMI 32.6). 13. Intractable right knee pain with subsequent right knee arthroscopic surgery and apparent meniscus resection - data deficit, April 2006 with persistent disabling symptoms and apparent intra-articular injections, 2006, with subsequent right total knee replacement surgery - data deficit,winter 2007. 14. Hospitalization for intractable nausea, weakness, increased syncope with apparent dehydration related to sinusitis - data deficit, July 2006. 15. Recent symptomatic numbness and tingling in hands, probable carpal tunnel syndrome. 16. Dyslipidemia (8.4% 10-year risk ASCVD; 4.5% with treatment) 17. Remote apparent acceptable mammography (spring 2014), with subsequent development of inverted left nipple with findings of invasive grade I lobular carcinoma with scattered small foci (December-January 2015), with negative left axillary lymph node biopsy and apparent negative BRAC2 assessment with contemplated left mastectomy (May 2015). ? Allergies Allergen Reactions ??? Morphine And Related Confusion ??? Penicillins Rash Current Outpatient Prescriptions: ??? anastrozole (ARIMIDEX) 1 MG tablet, Take by mouth Daily., Disp: , Rfl: ??? aspirin 81 MG EC tablet, Take 81 mg by mouth Daily., Disp: , Rfl: ??? bisoprolol-hydrochlorothiazide (ZIAC) 5-6.25 MG per tablet, Take 1 tablet by mouth Daily., Disp: 90 tablet, Rfl: 3 ??? Cholecalciferol (VITAMIN D3) 2000 units tablet, Take 2,000 Units by mouth Daily., Disp: , Rfl: ??? Diclofenac Potassium (ZIPSOR) 25 MG capsule, Take 75 mg by mouth 2 (Two) Times a Day., Disp: , Rfl: ??? mometasone (NASONEX) 50 MCG/ACT nasal spray, 2 sprays into each nostril Daily., Disp: , Rfl: ??? montelukast (SINGULAIR) 10 MG tablet, Take 10 mg by mouth Every Night., Disp: , Rfl: ??? potassium chloride (K-DUR,KLOR-CON) 20 MEQ CR tablet, Take 1 tablet by mouth Daily., Disp: 90 tablet, Rfl: 3 HISTORY OF PRESENT ILLNESS: Patient returns for followup after a 12-month hiatus. She is assured that her stress test done last year was pretty good . She says she has done well since last being seen in our office. Her weight is down a few pounds today, but she notes that she is ashamed to admit that she had gotten down to 188 pounds before the holidays. She quit drinking sodas and stayed away from carbohydrates to lose that weight, and she hopes to get back to that diet and get her weight back down. Patient otherwise denies chest pain, shortness of breath, PND, edema, palpitations, syncopeor presyncope at this time. She is up and about on a daily basis without restriction. Review of Systems Musculoskeletal: Positive for arthritis, joint pain and joint swelling. Obtained and otherwise negative except as outlined in problem list and HPI. Procedures Objective: Vitals: 06/18/17 1259 06/18/17 1303 BP: 131/73 135/75 BP Location: Left arm Left arm Patient Position: Sitting Standing Pulse: 51 61 Weight: 90.7 kg (200 lb) Height: 167.6 cm (66 ) Body mass index is 32.28 kg/(m^2). Last weight: 203 lbs. Physical Exam Constitutional: She is oriented to person, place, and time. She appears well- developed and well-nourished. Neck: No JVD present. Carotid bruit is not present. No thyromegaly present. Cardiovascular: Regular rhythm, S1 normal and S2 normal. Exam reveals distant heart sounds. Exam reveals no gallop, no S3 and no friction rub. No murmur heard. Pulses: Dorsalis pedis pulses are 2+ on the right side, and 2+ on the left side. Posterior tibial pulses are 2+ on the right side, and 2+ on the left side. Pulmonary/Chest: Effort normal. She has decreased breath sounds. She has no wheezes. She has no rhonchi. She has no rales. Abdominal: Soft. She exhibits no mass. There is no hepatosplenomegaly. There is no tenderness. There is no guarding. Bowel sounds audible x4 Musculoskeletal: Normal range of motion. She exhibits no edema. Lymphadenopathy: She has no cervical adenopathy. Neurological: She is alert and oriented to person, place, and time. Skin: Skin is warm, dry and intact. No rash noted. Vitals reviewed. Lab Review: (reviewed with patient in the office today) Lab Results Component Value Date BUN 22 06/13/2017 CREATININE 0.87 06/13/2017 EGFRIFNONA 70 06/13/2017 EGFRIFAFRI 80 06/13/2017 BCR 25 06/13/2017 CO2 24 06/13/2017 CALCIUM 9.3 06/13/2017 PROTENTOTREF 6.3 06/13/2017 ALBUMIN 4.2 06/13/2017 LABIL2 2.0 06/13/2017 AST 25 06/13/2017 ALT 29 06/13/2017 Sodium - 142 Potassium - 4.1 Chloride - 105 Lab Results Component Value Date WBC 5.8 06/13/2017 HGB 11.2 06/13/2017 HCT 34.4 06/13/2017 MCV 91 06/13/2017 PLT 207 06/13/2017 Lab Results Component Value Date TSH 1.403 05/29/2016 Lab Results Component Value Date TRIG 82 06/13/2017 Lab Results Component Value Date HDL 56 06/13/2017 LDL - 119 (06/13/2017) Lab Results Component Value Date LDL 119 (H) 06/13/2017 Lab Results Component Value Date BNP 8.0 05/29/2016 D-dimer - 0.86 Sed rate - 11 Assessment: Overall continued acceptable course with no interim cardiopulmonary complaints with good functionalstatus. We will defer additional diagnostic or therapeutic intervention from a cardiac perspective at this time other than to initiate treatment for her dyslipidemia based on her ACC/AHA 10-year riskof atherosclerotic cardiovascular disease. Diagnosis Plan 1. Dyslipidemia Lipid Panel; initiate rosuvastatin 10 mg daily 2. Hypertensive heart disease without heart failure No recurrent angina pectoris or CHF. 3. Labile hypertension Acceptable control 4. Syncope, unspecified syncope type No recurrence Plan: 1. Patient to continue current medications and close follow up with the above providers. 2. Initiate rosuvastatin 10 mg daily with FLP in September 2017. 3. Tentative cardiology follow up in May 2018, or patient may return sooner PRN. Transcribed by Libertad Stout for Dr. Santo Salinas at 1:11 PM on 06/18/2017 Santo Espinal MD, [facility], personally performed the services described in this documentation as scribed by the above named individual in my presence, and it is both accurate and complete. At 2:42 PM on 06/18/2017 documented in this encounter Plan of Treatment Upcoming Encounters Date Type Department Care Team (Late st Contact Info) Description 07/29/2024 10:45 AM EST Office Visit [facility] [address] [facility] [address] [place] [phone] Goyo Khan MD [address] [facility] [address] [place] [address] 09/02/2024 11:30 AM EDT Office Visit [facility] CARDIOTHORACIC SURGERY [address] [facility] [address] [place] [phone] Dee Jaimes, NAT INSTRUCTOR [address] [facility] [address] [place] [address] documented as of this encounter Visit Diagnoses Diagnosis Dyslipidemia- Primary Other and unspecified hyperlipidemia Hypertensive heart disease without heart failure Unspecified hypertensive heart disease without heart failure Labile hypertension Syncope, unspecified syncope type documented in this encounter Care Teams Retail Tire Sales Manager Relationship Specialty Start Date End Date Rafael Barajas MD [address] [facility] [address] [place] [address] PCP - General 04/12/15 03/19/22 documented as of this encounter
--- OUTSIDE RECORDS SUMMARY | 2024-05-04 22:49 | XMS_ITS | Encounter Summary ---
Author Organization [facility] Address [address] [place] [address] Care Team Providers Care Machine Welt Butter Name Role Phone Rafael Barajas MD Primary Care Provider + [phone] Reason for Referral * Diagnostic Imaging (Routine) - Closed Specialty Diagnoses / Procedures Referred By Heather santos Referred To Contact Diagnoses BENITEZ (dyspnea on exertion) Diaphoresis Chest tightness Procedures Stress Test With Myocardial Perfusion One Day Santo Salinas MD [address] [facility] [address] [place] [address] Phone: tel: fax: [facility] [address] [place] [address] Phone: tel: Referral ID Status Reason Start Date Expiration Date Visits Re quested Visits Authorized [id number] Closed 10/17/2021 10/17/2022 4 4 Encounter Details Date Type Department Care Team (Late st Contact Info) Description 10/17/2021 Telephone [facility] CARDIOLOGY [address] [facility] [address] [place] [phone] Santo Salinas MD [address] [facility] [address] [place] [id number] Social History Tobacco Use Types Packs/Day Years [...] on file documented as of this encounter Progress Notes * Katlyn Coyle RegSched Rep - 11/02/2021 12:40 PM EDTAddended by: KATLYN COYLE on: 11/02/2021 12:40 PM Modules accepted: Orders * Katlyn Coyle RegSched Rep - 11/02/2021 12:40 PM EDTAddended by: KATLYN COYLE on: 11/02/2021 12:40 PM Modules accepted: Orders documented in this encounter Miscellaneous Notes * Telephone Encounter - Anika Garcia RN - 10/17/2021 12:48 PM EDT Called pt and gave KTS recommendations above. Pt verbalizes understanding and agreeable to plan. Orders faxed to [facility] [phone] * Telephone Encounter - Santo Salinas MD - 10/17/2021 11:41 AM EDT Noted; recommend CBC, BNP, D-dimer, and symptom limited Cardiolite GXT with continuous oximetry. Thanks! * Telephone Encounter - Anika Garcia RN - 10/17/2021 10:46 AM EDT Patient called and stated that she has been having SOB with light activity, along with diaphoresis,fatigue and chest tightness. Patient has had these symptoms for at least 6 weeks. Recovers with rest after about 30 minutes. BP 145/89 79 136/74 78 133/74 71 133/69 70 141/75 78 Pt had blood work last week with Dr. Barragan's office in [place]. Records requested. Current cardiac meds: Bisoprolol-HCTZ 5-6.25 mg daily Rosuvastatin 10 mg daily Pt denies current chest pain, dizziness, swelling, palpitations. Please advise. documented in this encounter Plan of Treatment Upcoming Encounters Date Type Department Care Team (Late st Contact Info) Description 07/29/2024 10:45 AM EST Office Visit [facility] CARDIOLOGY [address] [facility] [address] [place] [address] Goyo Khan MD [address] [facility] [address] [place] [address] 09/02/2024 11:30 AM EDT Office Visit [facility] CARDIOTH[facility]ACIC SURGERY [address] [facility] [address] [place] [address] Dee Jaimes APRN [address] [facility] [address] [place], [place] [id number] Scheduled Orders Name Type Priority Associated Diagnoses Orde r Schedule proBNP Lab Routine BENITEZ (dyspnea on exertion) Diaphoresis Chest tightness Expected: 10/22/2021 (Approximate), Expires: 10/17/2022 documented as of this encounter Results * STRESS TEST, EXERCISE [...] (sec) 0 sec Estimated workload 3.2 METS CV STRESS NUCLEAR ISOTOPE DOSE 32.9 mCi [...] no significant arrhythmias noted during recovery. Test Outside Machinist Apprentice ECG [place] Perfusion Scoring Resting Summed Score: 0 Percent Normal: 0.00% The left ventricular perfusion is normal. Perfusion Scoring Stress Summed Score: 0 Percent Normal: 0.00% The left ventricular perfusion is normal. us Santo Salinas MD CV STRESS ORDERABLES Final Res ult * D-dimer, Quantitative (11/02/2021) Blood us Santo Salinas MD LAB BLOOD ORDERABLES Final Res ult [facility] documented in this encounter Visit Diagnoses Diagnosis BENITEZ (dyspnea on exertion)- Primary Other dyspnea and respiratory abnormality Diaphoresis Generalized hyperhidrosis Chest tightness Other chest pain BENITEZ (dyspnea on exertion) Other dyspnea and respiratory abnormality Diaphoresis Generalized hyperhidrosis Chest tightness Other chest pain documented in this encounter Care Teams Machine Welt Butter Relationship Specialty Start Date End Date Rafael Barajas MD [address] [facility] [address] [facility] [address] [place] [address] PCP - General 04/12/15 03/19/22 documented as of this encounter
--- OUTSIDE RECORDS SUMMARY | 2024-05-04 22:49 | XMS_ITS | Encounter Summary ---
[facility] [address] [place] [address] Care Team Providers Care Assistant Infant Toddler Teacher Name Role Phone Talon Barragan MD Primary Care Provider Reason for Referral * (Routine) - Closed Specialty Diagnoses / Procedures Referred By Contac t Referred To Contact Radiology Diagnoses Thoracic aortic aneurysm without rupture, unspecified part Procedures Chest X-Ray PA & Lateral Edward Resendez PA [address] [facility] [address] [place] [address] Phone: tel: fax: Referral ID Status Reason Start Date Expiration Date Visits Re quested Visits Authorized [id number] Closed 04/19/2022 04/19/2023 1 1 Encounter Details Date Type Department Care Team (Latest Contact Info) Description 04/17/2022 Prep for Surgery [facility]DERS ONLY [address] [place] [address] Nile Muse MD Thoracic aortic aneurysm without rupture, unspecified part (Primary Dx) Social History Tobacco Use Types [...] EST Office Visit [facility] [address] [facility] [address] [place] [phone] Goyo Khan MD [address]20 [facility] [address] [place], [place] [id number] 09/02/2024 11:30 AM EDT Office Visit [facility] CARDIOTH[facility]ACIC SURGERY [address] [facility] [address] [place] [address] Dee Jaimes, VEST FRONT PRESSER [address] [facility] [address] [place], [place] [id number] documented as of this encounter Results * Chest X-Ray PA [...] Referred By: CHEMO Confirmed By: SHEYLA SORTO Edward BRICE ECG ORDERABLES Final Result ECG * Protime-INR (04/22/2022 3:33 PM EST) Protime 12.9 11.4 - 14.4 Seconds 04/22/2022 4:31 PM EST [facility] INR 0.98 0.84 - 1.13 04/22/2022 4:31 PM EST [facility] Blood Venipuncture / Unknown 04/22/2022 3:33 PM EST 04/22/2022 4:09 PM EST us Edward BRICE LAB BLOOD ORDERABLES Final Resu lt Performing Organization Address [facility] Co de Phone Number [facility]
[address] [place] [address], * PTT (04/22/2022 3:33 PM EST) PTT 27.6 22.0 - 39.0 seconds 04/22/2022 4:31 PM EST [facility] Blood Venipuncture / Unknown 04/22/2022 3:33 PM EST 04/22/2022 4:09 PM EST Narrative [facility] - 04/22/2022 4:31 PM EST PTT = The equivalent PTT values for the therapeutic range of heparin levels at 0.3 to 0.5 U/ml are 60 to 70 seconds. us Edward BRICE LAB BLOOD ORDERABLES Final Resu lt Performing Organization Address City/[facility]/ZIP Co de Phone Number [facility]
[address] [place] [address], * (ABNORMAL) Hemoglobin A1c (04/22/2022 3:33 PM EST) Hemoglobin A1C 6.40(H) 4.80 - 5.60 % 04/22/2022 4:32 PM EST [facility] Blood Venipuncture / Unknown 04/22/2022 3:33 PM EST 04/22/2022 4:09 PM EST [facility] - 04/22/2022 4:32 PM EST Hemoglobin A1C Ranges: Increased Risk for Diabetes ??5.7% to 6.4% Diabetes ? >= 6.5% Diabetic Goal ?< 7.0% us Edward BRICE LAB BLOOD ORDERABLES Final Resu lt [facility]
[address] [place] [address], * (ABNORMAL) Basic Metabolic Panel (04/22/2022 3:33 PM EST) Glucose 168(H) 65 - 99 mg/dL 04/22/2022 4:44 PM EST [facility] BUN 22 8 - 23 mg/dL 04/22/2022 4:44 PM EST [facility] Creatinine 1.00 0.57 - 1.00 mg/dL 04/22/2022 4:44 PM EST [facility] Sodium 143 136 - 145 mmol/L 04/22/2022 4:44 PM EST [facility] Potassium 4.1 3.5 - 5.2 mmol/L 04/22/2022 4:44 PM EST [facility] Chloride 104 98 - 107 mmol/L 04/22/2022 4:44 PM EST [facility] CO2 28.0 22.0 - 29.0 mmol/L 04/22/2022 4:44 PM EST [facility] Calcium 10.0 8.6 - 10.5 mg/dL 04/22/2022 4:44 PM EST [facility] BUN/Creatinine Ratio 22.0 7.0 - 25.0 04/22/2022 4:44 PM EST [facility] Anion Gap 11.0 5.0 - 15.0 mmol/L 04/22/2022 4:44 PM EST [facility] eGFR 60.4 >60.0 mL/min/1. 73 04/22/2022 4:44 PM EST [facility] Comment:National Kidney Foun dation and [place] Society of Nephrology (ASN) Task Force recommended calculation based on the Chronic Kidney Disease Epidemiology Collaboration (CKD-EPI) equation refit without adjustment for race. Blood Venipuncture / Unknown 04/22/2022 3:33 PM EST 04/22/2022 4:09 PM EST Narrative [facility] - 04/22/2022 4:44 PM EST GFR Normal >60 Chronic Kidney Disease <60 Kidney Failure <15 The GFR formula is only valid for adults with stable renal function between ages 18 and 70. us Edward BRICE LAB BLOOD ORDERABLES Final Resu lt [facility]
[address] [place] [address], documented in this encounter Visit Diagnoses Diagnosis Thoracic aortic aneurysm without rupture, unspecified part- Primary Thoracic aortic aneurysm without rupture, unspecified part documented in this encounter Care Teams Assistant Infant Toddler Teacher Relationship Specialty Start Date End Date Talon Barragan MD [address] [place] [address] [address] [place] [address] PCP - General Family Medicine 03/20/22 documented as of this encounter
--- OUTSIDE RECORDS SUMMARY | 2024-05-04 22:49 | XMS_ITS | Encounter Summary ---
[facility] Address [address] [place] [address] Care Team Providers Care Detail Maker And Fitter Name Role Phone Talon Barragan MD Primary Care Provider Encounter Details Date Type Department Care Team (Late st Contact Info) Description 04/17/2022 Patient rounding ([facility]) [facility] CARDI[facility]ERY [address] [facility] [address] [place] [address] Serafin Harper RegSched Rep Social History Tobacco Use Types Packs/Day Years [...] as of this encounter Progress Notes * Serafin Harper RegSched Rep - 04/17/2022 9:23 AM EST April 17, 2022 Lizzette, may I speak with Juany Alarcon? My name is SERAFIN I am with [facility] CARDIOTH[facility]ACIC SURGERY [address] [facility] [address] [facility] [address] . Before we get started september I verify your date of ? 1950 I am calling to officially welcome you to our practice and ask about your recent visit. Is this a good time to talk?YES Tell me about your visit with us. What things went well??? MY VISIT WENT GREAT. ?? We're always looking for ways to make our patients' experiences even better. Do you have recommendations on ways we may improve??? NO. Overall were you satisfied with your first visit to our practice? YES. ?? I appreciate you taking the time to speak with me today. Is there anything else I can do for you? NO. Thank you, and have a great day. documented in this encounter Plan of Treatment Upcoming Encounters Date Type Department Care Team (Late st Contact Info) Description 07/29/2024 10:45 AM EST Office Visit [facility] [address] [facility] [address] [place] [address] Goyo Khan MD [address] [facility] [address] [place] [address] 09/02/2024 11:30 AM EDT Office Visit [facility]ARDI[facility]ERY [address] [facility] [address] [place] [address] Dee Jaimes APRN [address] [facility] [address] [place] [address] documented as of this encounter Visit Diagnoses Not on filedocumented in this encounter Care Teams Detail Maker And Fitter Relationship Specialty Start Date End Date Talon Barragan MD [address] [facility] [address] [place] [address] PCP - General Family Medicine 03/20/22 documented as of this encounter
--- OUTSIDE RECORDS SUMMARY | 2024-05-04 22:49 | XMS_ITS | Encounter Summary ---
[facility] Address [address] [place] [address] Care Team Providers Care Product Support Sales Representative Name Role Phone Rafael Barajas MD Primary Care Provider [phone] Reason for Referral * Diagnostic Medical (Routine) - Closed Specialty Diagnoses / Procedures Referred By Heather santos Referred To Contact Diagnoses Dyspnea on exertion Procedures Full Pulmonary Function Test With Bronchodilator Santo Salinas MD [address] [facility] [address] [place] [id number] Phone: tel: fax: [facility] [address] [place] [phone] Phone: tel: Referral ID Status Reason Start Date Expiration Date Visits Re quested Visits Authorized [id number] Closed 12/28/2021 12/28/2022 1 1 Reason for Visit * Diagnostic Medical (Routine) - Closed Specialty Diagnoses / Procedures Referred By Heather santos Referred To Contact Diagnoses Dyspnea on exertion Procedures Full Pulmonary Function Test With Bronchodilator Santo Salinas MD [address] [place] [address] Phone: tel: fax: [facility] [address] [place] [address], [place] [address] Phone: tel: Referral ID Status Reason Start Date Expiration Date Visits Re quested Visits Authorized [id number] Closed 12/28/2021 12/28/2022 1 1 Encounter Details Date Type Department Care Team (Latest Contact Info) Description 02/13/2022 12:28 PM EDT - 02/13/2022 11:59 PM EDT Hospital Encounter [facility] [address] [place] [phone] Dyspnea on exertion Discharge Disposition: Home or Self Care Social [...] Taken Comments Blood Pressure - - Pulse 72 02/13/2022 12:29 PM EDT Temperature - - Respiratory Rate 18 02/13/2022 12:29 PM EDT Oxygen Saturation - - Inhaled Oxygen Concentration - - Weight - - Height - - Body Mass Index - - documented in this encounter Medications at Time [...] 03/20/2022 aspirin 81 MG EC tablet Take 1 tablet by mouth Daily. 90 tablet 3 06/29/2021 07/12/2022 bisoprolol-hydro chlorothiazide (ZIAC) 5-6.25 MG per tablet Take 1 tablet by mouth Daily. 90 tablet 3 06/29/2021 07/12/2022 etodolac (LODINE) 500 MG tablet Take 500 mg by mouth 2 (Two) Times a Day. 03/20/2022 gabapentin (NEURONTIN) 300 MG capsule Take 300 mg by mouth Every Night. 06/15/2019 03/20/2022 meloxicam (MOBIC) 7.5 MG tablet Take 7.5 [...] 07/29/2024 10:45 AM EST Office Visit [facility] CARDIOLOGY [address] [facility] [address] [place] [address] Goyo Khan MD [address] [facility] [address] [place] [address] 09/02/2024 11:30 AM EDT Office Visit [facility] CARDI[facility]IC SURGERY [address] [facility] [address] [place] [address] Dee Jaimes APRN [address] [facility] [address] [place] [address] documented as of this encounter Procedures Procedure Name Priority Date/Time Associated Diagnosis Comments FULL STUDY PRE AND POST, GAS DILUTION OR WASHOUT, DIFFUSION Routine 02/13/2022 1:02 PM EDT Dyspnea on exertion documented in this encounter Results * FULL STUDY PRE AND POST, GAS DILUTION OR WASHOUT, DIFFUSION (02/13/2022 1:02 PM EDT) Narrative Christo Tran MD - 02/22/2022 8:25 PM EDT Pulmonary Function Test Interpretation 1. No airway obstruction as the FEV1 ratio >= 0.7. 2. Following the inhalation of a bronchodilator, there is NO significant change in airway obstruction. ??The lack of a bronchodilator response in the laboratory does not preclude a clinical response to bronchodilator therapy. 3. Lung volumes are consistent with Restrictive Lung Disease. 4. The diffusing capacity is substantially reduced. us Santo Salinas MD PFT ORDERABLES Final Result documented in this encounter Visit Diagnoses Diagnosis Dyspnea on exertion Other dyspnea and respiratory abnormality documented in this encounter Administered Medications Inactive Administered Medications - up to 3 most recent administrations Medication Order MAR Action Action Date Dose Rate Site albuterol (PROVENTIL) nebulizer solution 0.083% 2.5 mg/3mL 2.5 mg, Nebulization, Once, On Fri02/13/22 at 1315, For 1 dose, Include Respiratory Treatment Education Given 02/13/2022 12:29 PM EDT 2.5 mg documented in this encounter Care Teams Product Support Sales Representative Relationship Specialty Start Date End Date Rafael Barajas MD [facility] [address] [facility] [address] [place] [address] PCP - General 04/12/15 03/19/22 documented as of this encounter
--- OUTSIDE RECORDS SUMMARY | 2024-05-04 22:49 | XMS_ITS | Encounter Summary ---
Author Organization [facility] yste Address [address] [place] [address] Care Team Providers Care Resistor Inspector Name Role Phone Rafael Barajas MD Primary Care Provider [phone] Reason for Visit * Reason Comments Hypertension Encounter Details Date Type Department Care Team (Late st Contact Info) Description 06/25/2019 1:00 PM EST Office Visit [facility] CARDIOLOGY [address] [facility] [address] [place], [place] [phone] Santo Salinas MD [address] [facility] [address] [place] [address] Hypertensive heart disease without heart failure (Primary Dx); Labile hypertension; Dyslipidemia; Mild obesity Social History Tobacco Use Types Packs/Day Years [...] Sign Reading Time Taken Comments Blood Pressure 130/93 06/25/2019 1:05 PM EST Pulse 83 06/25/2019 1:05 PM EST Temperature - - Respiratory Rate - - Oxygen Saturation 98% 06/25/2019 1:01 PM EST Inhaled Oxygen Concentration - - Weight 90.7 kg (200 lb) 06/25/2019 1:01 PM EST Height 166.4 cm (5' 5.5 ) 06/25/2019 1:01 PM EST Body Mass Index 32.78 06/25/2019 1:01 PM EST documented in this encounter Progress Notes * Maura Recinos - 06/25/2019 1:00 PM ESTAddended by: MAURA RECINOS on: 07/13/2019 01:49 PM Modules accepted: Orders * Maura Recinos - 06/25/2019 1:00 PM ESTAddended by: MAURA RECINOS on: 07/13/2019 01:49 PM Modules accepted: Orders * Maura Recinos - 06/25/2019 1:00 PM ESTAddended by: MAURA RECINOS on: 07/13/2019 01:49 PM Modules accepted: Orders * Maura Recinos - 06/25/2019 1:00 PM ESTAddended by: MAURA RECINOS on: 07/13/2019 01:49 PM Modules accepted: Orders * Maura Recinos - 06/25/2019 1:00 PM ESTAddended by: MAURA RECINOS on: 07/13/2019 01:49 PM Modules accepted: Orders * Santo Salinas MD - 06/25/2019 1:00 PM EST Subjective: Encounter Date:06/25/2019 Patient ID: Juany Alarcon is a 69 y.o. 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 ?? REFERRING PHYSICIAN/ELECTRICAL INSTRUMENTATION TECHNICIAN: Bassem Barragan MD CURRENT PHYSICIAN: ??Rafael Barajas MD BRANCH OFFICER: Katarina Tan MD NEUROSURGEON: Adrian Faye MD ORTHOPEDIC SURGEON: ??Josh Arellano MD ONCOLOGIC SURGEON: [...] osteoarthritis, August 2001. 12. Mild-moderate obesity (BMI 32.8). 13. Intractable right knee pain with subsequent [...] 20. Left total knee replacement September 2018 ?? Allergies Allergen Reactions ??? Morphine And Related [...] ??? gabapentin (NEURONTIN) 100 MG capsule, Take 100 mg by mouth Daily., Disp: , Rfl: ??? mometasone (NASONEX) 50 MCG/ACT nasal spray, 2 sprays into the nostril(s) as directed by provider As Needed., Disp: , Rfl: ??? potassium chloride (K-DUR,KLOR-CON) 20 MEQ CR tablet, Take 1 tablet by mouth Daily., Disp: 90 tablet, Rfl: 3 ??? rosuvastatin (CRESTOR) 10 MG tablet, Take 1 tablet by mouth Daily., Disp: 90 tablet, Rfl: 3 History of Present Illness: Patient returns for scheduled annual followup. She denies any new diagnoses since she was last seen. She had a left total knee replacement in September 2018. She did 2 months ofphysical therapy and is now able to do more activity. She enjoys doing some walking. She denies anychest pain, increased shortness of breath, palpitations, dizziness, presyncope, or syncope. The patient was having some abdominal bloating and had an EGD and colonoscopy, which were unremarkable. Shehas adjusted her diet which has helped with the bloating. The patient was having some right breast pain and is scheduled to have a mammogram next month. The patient also feels that sometimes I have a funny feeling in my throat and things taste funny. She had a thyroid ultrasound which demonstrated a couple of small cysts. The patient was having fungal infections in both of her great toes. A couple of months ago, she had her toenails removed. Patient otherwise denies chest pain, shortness of breath, PND, edema, palpitations, syncope or presyncope at this time. Review of Systems HENT: Positive for ear pain (right). Cardiovascular: Positive for dyspnea on exertion. Musculoskeletal: Positive for arthritis. Obtained and negative except as outlined in problem list and HPI. Procedures Objective: Vitals: 06/25/19 1301 06/25/19 1305 BP: 121/77 130/93 BP Location: Right arm Right arm Patient Position: Sitting Standing Pulse: 78 83 SpO2: 98% Weight: 90.7 kg (200 lb) Height: 166.4 cm (65.5 ) Body mass index is 32.78 kg/m??. Last weight: 209 lbs. Physical Exam Constitutional: She is oriented [...] No rash noted. Vitals reviewed. Lab Review: No recent laboratory results available for review today Lab Results Component Value Date BUN 15 06/22/2018 CREATININE 0.89 06/22/2018 EGFRIFNONA 67 06/22/2018 EGFRIFAFRI 78 06/22/2018 BCR 17 06/22/2018 CO2 23 06/22/2018 CALCIUM 9.4 06/22/2018 PROTENTOTREF 6.7 06/22/2018 ALBUMIN 4.6 06/22/2018 LABIL2 2.2 06/22/2018 AST 18 06/22/2018 ALT 23 06/22/2018 Lab Results Component Value Date WBC 9.0 06/22/2018 HGB 12.2 06/22/2018 HCT 36.7 06/22/2018 MCV 92 06/22/2018 PLT 219 06/22/2018 Lab Results Component Value Date TSH 1.080 06/22/2018 Lab Results Component Value Date TRIG 96 06/22/2018 TRIG 82 06/13/2017 Lab Results Component Value Date HDL 63 06/22/2018 HDL 56 06/13/2017 Assessment: Overall continued acceptable course with no new interim cardiopulmonary complaints with acceptable functional status. We will defer additional diagnostic or therapeutic intervention from a cardiac perspective at this time. We encouraged the patient to continue her physical activity by walking. She has not had recent laboratory testing, and we will provide her with CBC, CMP, FLP, and TSH slips. Diagnosis Plan 1. Hypertensive heart disease without heart failure Stable, continue Ziac 2. Labile hypertension Controlled, continue Ziac 3. Dyslipidemia No new labs to review, continue rosuvastatin, CBC, CMP, FLP, TSH slips 4. Mild obesity Encouraged the patient to increase physical activity and limit carbs Plan: 1. Patient to continue current medications and close follow up with the above providers. 2. Tentative cardiology follow up in May 2020, or patient may return sooner PRN. 3. CBC, CMP, FLP, TSH lab slips provided 4. 1-800 card provided Scribed for Santo Salinas MD by Keesha Claire, C[place]. 06/25/2019 1:08 PM ISanto MD, [facility], personally performed the services described in this documentation as scribed by the above named individual in my presence, and it is both accurate and complete. At 1:44 PM on 06/25/2019 documented in this encounter Plan of Treatment Upcoming Encounters Date Type Department Care Team (Late st Contact Info) Description 07/29/2024 10:45 AM EST Office Visit [facility] CARDIOLOGY [address] [place] [phone] Goyo Khan MD [address] [facility] [address] [place], [place] [phone] 09/02/2024 11:30 AM EDT Office Visit [facility] CARDIOTHORACIC SURGERY [address] [facility] [address] [place] [phone] Dee Jaimes APRN [address] [facility] [address] [place], [place] [phone] Scheduled Orders Name Type Priority Associated Diagnoses Orde r Schedule TSH Lab Routine Labile hypertension Expected: 09/10/2019 (Approximate), Expires: 06/25/2020 CBC (No Diff) Lab Routine Hypertensive heart disease without heart failure Expected: 09/10/2019 (Approximate), Expires: 06/25/2020 Comprehensive Metabolic Panel Lab Routine Dyslipidemia Expected: 09/10/2019 (Approximate), Expires: 06/25/2020 documented as of this encounter Procedures Procedure Name Priority Date/Time Associated Diagnosis Comments LIPID PANEL Routine 07/08/2019 Dyslipidemia documented in this encounter Results * Lipid Panel (07/08/2019) Blood us Santo Salinas MD LAB BLOOD ORDERABLES Final Res ult [facility] documented in this encounter Visit Diagnoses Diagnosis Hypertensive heart disease without heart failure- Primary Unspecified hypertensive heart disease without heart failure Labile hypertension Dyslipidemia Other and unspecified hyperlipidemia Mild obesity documented in this encounter Care Teams Resistor Inspector Relationship Specialty Start Date End Date Rafael Barajas MD [address] [facility] [address] [place] [address] PCP - General 04/12/15 03/19/22 documented as of this encounter
--- OUTSIDE RECORDS SUMMARY | 2024-05-04 22:49 | XMS_ITS | Encounter Summary ---
Author Organization [facility] ystem Address [address] [place] [address] Care Team Providers Care Watershed Engineer Name Role Phone Rafael Barajas MD Primary Care Provider [phone] Encounter Details Date Type Department Care Team (Late st Contact Info) Description 06/13/2020 Telephone [facility] CARDIOLOGY [address] [facility] [address] [place] [phone] Santo Salinas MD [address] [facility] [address] [place] [address] Social History Tobacco Use Types Packs/Day Years [...] Telephone Encounter - Anika Garcia RN - 06/14/2020 1:38 PM EST Lab orders faxed to [facility]. Pt notified, Pt verbalizes understanding and agreeable to plan. * Telephone Encounter - Santo Salinas MD - 06/13/2020 11:48 AM EST Noted and concur. Thanks! * Telephone Encounter - Anika Garcia RN - 06/13/2020 11:26 AM EST Patient called for lab orders to have completed before 06/28/20 appt. Ok to order CMP, FLP, CBC, and TSH? Please advise. [facility] F# [phone] documented in this encounter Plan of Treatment Upcoming Encounters Date Type Department Care Team (Late st Contact Info) Description 07/29/2024 10:45 AM EST Office Visit [facility] CARDIOLOGY [address] [facility] [address] [place] [address] Goyo Khan MD [address] [facility] [address] [place] [phone] 09/02/2024 11:30 AM EDT Office Visit [facility] CARDIOTHORACIC SURGERY [address] [facility] [address] [place] [address] Dee Jaimes APRN [address] [facility] [address] [place] [address] documented as of this encounter Visit Diagnoses Diagnosis Labile hypertension- Primary Dyslipidemia Other and unspecified hyperlipidemia documented in this encounter Care Teams Watershed Engineer Relationship Specialty Start Date End Date Rafael Barajas MD [address] [facility] [address] [facility] [address] [place] [address] PCP - General 04/12/15 03/19/22 documented as of this encounter
--- OUTSIDE RECORDS SUMMARY | 2024-05-04 22:49 | XMS_ITS | Encounter Summary ---
[facility] [address] [place] [address] Care Team Providers Care Founder And Chief Executive Officer Name Role Phone Rafael Barajas MD Primary Care Provider [phone] Reason for Visit * Reason Onset Date Comments Med Refill 07/15/2017 Encounter Details Date Type Department Care Team (Late st Contact Info) Description 07/15/2017 Refill [facility] CARDIOLOGY [address] [facility] [address] [place] [phone] Norma Manzanares, RN Med Refill Social History Tobacco Use Types [...] Description 07/29/2024 10:45 AM EST Office Visit [facility] CARDIOLOGY [address] [facility] [address] [place] [phone] Goyo Khan MD [address] [facility] [address] [place] [address] 09/02/2024 11:30 AM EDT Office Visit [facility] CARDIOTHORACIC SURGERY [address] [facility] [address] [place] [address] Dee Jaimes APRN [address] [facility] [address] [place] [address] documented as of this encounter Visit Diagnoses Not on filedocumented in this encounter Care Teams Founder And Chief Executive Officer Relationship Specialty Start Date End Date Rafael Barajas MD [address] [facility] [address] [facility] [address] [place] [address] PCP - General 04/12/15 03/19/22 documented as of this encounter
--- OUTSIDE RECORDS SUMMARY | 2024-05-04 22:49 | XMS_ITS | Encounter Summary ---
[facility] [address] [place] [address] Care Team Providers Care General Farmer Name Role Phone Rafael Barajas MD Primary Care Provider [phone] Encounter Details Date Type Department Care Team (Late st Contact Info) Description 09/07/2018 Telephone [facility] CARDIOLOGY [address] [facility] [address] [place] [phone] Keesha Claire APRN [address] [facility] [address] [place] [address] Social History Tobacco Use Types Packs/Day Years [...] encounter Miscellaneous Notes * Telephone Encounter - Juan Wiggins RN - 09/07/2018 1:23 PM EDT ----- Message from Keesha Claire APRN sent at 09/07/2018 1:01 PM EDT ----- Patient has cardiac clearance to have her left TKR. She will need to stop her ASA 5 days prior to surgery. Keesha Claire APRN ----- Message ----- From: Juan Wiggins RN Sent: 09/07/2018 12:55 PM To: Keesha Claire APRN Having a Lt Total Knee Replacement Dr. Brian Ji September 29. Needs Cardiac Clearance Pt on ASA documented in this encounter Plan of Treatment Upcoming Encounters Date Type Department Care Team (Late st Contact Info) Description 07/29/2024 10:45 AM EST Office Visit [facility] CARDIOLOG[facility] [address] [facility] [address] [place] [phone] Goyo Khan MD [address] [facility] [address] [place] [address] 09/02/2024 11:30 AM EDT Office Visit [facility] CARDI[facility]IC SURGERY [address] [facility] [address] [place] [address] Dee Jaimes APRN [address] [facility] [address] [place] [address] documented as of this encounter Visit Diagnoses Not on filedocumented in this encounter Care Teams General Farmer Relationship Specialty Start Date End Date Rafael Barajas MD [address] [facility] [address] [place] [address] PCP - General 04/12/15 03/19/22 documented as of this encounter
--- OUTSIDE RECORDS SUMMARY | 2024-05-04 22:49 | XMS_ITS | Encounter Summary ---
Author Organization [facility] ystem Address [address] [place] [address] Care Team Providers Care Pet Nutrition Specialist Name Role Phone Rafael Barajas MD Primary Care Provider [phone] Reason for Visit * Reason Comments dyslipidemia Hypertension Encounter Details Date Type Department Care Team (Late st Contact Info) Description 06/19/2018 1:00 PM EST Office Visit [facility] CARDIOLOGY [address] [place] [phone] Santo Salinas MD [address] [place] [address] Hypertensive heart disease without heart failure (Primary Dx); Labile hypertension; Dyslipidemia Social History Tobacco Use Types [...] Sign Reading Time Taken Comments Blood Pressure 135/81 06/19/2018 12:50 PM EST Pulse 68 06/19/2018 12:50 PM EST Temperature - - Respiratory Rate - - Oxygen Saturation - - Inhaled Oxygen Concentration - - Weight 94.8 kg (209 lb) 06/19/2018 12:50 PM EST Height 167.6 cm (5' 6 ) 06/19/2018 12:50 PM EST Body Mass Index 33.73 06/19/2018 12:50 PM EST documented in this encounter Progress Notes * Santo Salinas MD - 06/19/2018 1:00 PM EST Subjective: Encounter Date:06/19/2018 Patient ID: Juany Alarcon is a 68 y.o. 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 ?? REFERRING PHYSICIAN/MANAGER SUPPLIER: Bassem Barragan MD CURRENT PHYSICIAN: ??Rafael Barajas MD PATTERNMAKER BENCH: Katarina Tan MD NEUROSURGEON: Adrian Faye MD ORTHOPEDIC SURGEON: ??Josh Arellano MD ONCOLOGIC SURGEON: Roque Crouch MD SLEEP PHYSICIAN:??Fito Mederos MD Chief Complaint: Chief Complaint Patient presents with ??? dyslipidemia ??? Hypertension Problem List: 1. Possible hypertensive [...] osteoarthritis, August 2001. 12. Mild-moderate obesity (BMI 33.7). 13. Intractable right knee pain with subsequent [...] 2018 19. Sciatic back pain, April 2018 Allergies Allergen Reactions ??? Morphine And Related [...] HISTORY OF PRESENT ILLNESS: Patient returns for scheduled annual followup. She denies any chest pressure, shortness of breath, palpitations, presyncope, syncope, or edema. Her only complaints are of back pain. She has been receiving apparent corticosteroid injections in her back which help temporarily. She is trying to avoid surgery if she can. She had an episode where she twisted wrong when sitting down on her bed in April 2018, and she felt a sharp pain down the back of her right lower extremity. She states this is very painful, and she has been struggling since that time and has been onmultiple doses of steroids, which also help her pain. Prior to this, she had bronchitis in March2018 and went through 2 rounds of antibiotics and steroids at that time as well. She is requesting orders for laboratory testing. She had bilateral carpal tunnel releases in January 2018. She has had no other hospitalizations, surgeries, or diagnoses since her last visit. Patient otherwise denieschest pain, shortness of breath, PND, edema, palpitations, syncope or presyncope at this time. Review of Systems Constitution: Positive for weight gain. Musculoskeletal: Positive for arthritis and back pain. Obtained and otherwise negative except as outlined in problem list and HPI. Procedures Objective: Vitals: 06/19/18 1249 06/19/18 1250 BP: 131/69 135/81 BP Location: Left arm Left arm Patient Position: Sitting Standing Pulse: 62 68 Weight: 94.8 kg (209 lb) 94.8 kg (209 lb) Height: 167.6 cm (66 ) 167.6 cm (66 ) Body mass index is 33.73 kg/m??. Last weight: 200 lbs. Physical Exam Constitutional: She is oriented to person, place, and time. She appears well- developed and well-nourished. HENT: Mouth/Throat: Oropharynx is clear and moist. Neck: No JVD present. Carotid bruit is not present. No thyromegaly present. Cardiovascular: Regular rhythm, S1 normal, S2 normal and intact distal pulses. Exam reveals distantheart sounds. Exam reveals no gallop, no S3 and no S4. No murmur heard. Pulses: Carotid pulses are 2+ on the right side, and 2+ on the left side. Radial pulses are 2+ on the right side, and 2+ on the left side. Pulmonary/Chest: She has decreased breath sounds. Abdominal: Soft. Bowel sounds are normal. She exhibits no mass. There is no tenderness. Musculoskeletal: She exhibits no edema. Neurological: She is alert and oriented to person, place, and time. Skin: Skin is warm and dry. No rash noted. Lab Review: Lab Results Component Value Date BUN 22 06/13/2017 CREATININE 0.87 06/13/2017 EGFRIFNONA 70 06/13/2017 EGFRIFAFRI 80 06/13/2017 BCR 25 06/13/2017 CO2 24 06/13/2017 CALCIUM 9.3 06/13/2017 PROTENTOTREF 6.3 06/13/2017 ALBUMIN 4.2 06/13/2017 LABIL2 2.0 06/13/2017 AST 25 06/13/2017 ALT 29 06/13/2017 Lab Results Component Value Date WBC 5.8 06/13/2017 HGB 11.2 06/13/2017 HCT 34.4 06/13/2017 MCV 91 06/13/2017 PLT 207 06/13/2017 Lab Results Component Value Date TSH 1.403 05/29/2016 Lab Results Component Value Date TRIG 82 06/13/2017 Lab Results Component Value Date HDL 56 06/13/2017 Lab Results Component Value Date LDL 119 (H) 06/13/2017 Lab Results Component Value Date BNP 8.0 05/29/2016 Lab Results, 06/14/2017: ?? CBC - WBC 5.8, RBC 3.80, hemoglobin 11.2, hematocrit 34.4 ?? BUN - 22 ?? FLP - total cholesterol 191, triglycerides 82, HDL - 56, LDL - 119 Assessment: Overall continued acceptable course with no interim cardiopulmonary complaints with acceptable functional status. We will provide her with laboratory slips for a CBC, CMP, FLP, and TSH. Diagnosis Plan 1. Hypertensive heart disease without heart failure Stable; No recurrent angina pectoris or CHF on current activity schedule; continue current treatment 2. Labile hypertension Controlled 3. Dyslipidemia CBC, CMP, FLP, TSH Plan: 1. Patient to continue current medications and close follow up with the above providers. 2. Tentative cardiology follow up in May 2019, or patient may return sooner PRN. 3. CBC, CMP, FLP, TSH ordered Scribed for Santo Salinas MD by Keesha Claire, SHOVEL MECHANIC 06/19/2018 1:07 PM I, Santo Salinas MD, [facility], personally performed the services described in this documentation as scribed by the above named individual in my presence, and it is both accurate and complete. At 10:08AM on 06/19/2018 documented in this encounter Plan of Treatment Upcoming Encounters Date Type Department Care Team (Late st Contact Info) Description 07/29/2024 10:45 AM EST Office Visit [facility] CARDIOLOGY [address] [facility] [address] [place] [phone] Goyo Khan MD [address] [facility] [address] [place] [address] 09/02/2024 11:30 AM EDT Office Visit [facility] CARDIOTHORACIC SURGERY [address] [facility] [address] [place] [address] Dee Jaimes, SHOVEL MECHANIC [address] [facility] [address] [place] [address] documented as of this encounter Visit Diagnoses Diagnosis Hypertensive heart disease without heart failure- Primary Unspecified hypertensive heart disease without heart failure Labile hypertension Dyslipidemia Other and unspecified hyperlipidemia documented in this encounter Care Teams Pet Nutrition Specialist Relationship Specialty Start Date End Date Rafael Barajas MD [address] [facility] [address] [place] [address] PCP - General 04/12/15 03/19/22 documented as of this encounter
--- OUTSIDE RECORDS SUMMARY | 2024-05-04 22:49 | XMS_ITS | Encounter Summary ---
[facility] Address [address] [place] [address] Care Team Providers Care Overlock Hemmer Name Role Phone Rafael Barajas MD Primary Care Provider [phone] Reason for Visit * Diagnostic Imaging (Routine) - Closed Specialty Diagnoses / Procedures Referred By Heather santos Referred To Contact Diagnoses Hypertensive heart disease without heart failure Labile hypertension Obstructive sleep apnea on CPAP Mild obesity Other chest pain Procedures Stress Test With Myocardial Perfusion Santo Salinas MD [address] [place] [address] Phone: tel: fax: [facility] [address] [place] [address] Phone: tel: Referral ID Status Reason Start Date Expiration Date Visits Re quested Visits Authorized [id number] Closed 05/29/2016 05/29/2017 4 4 Encounter Details Date Type Department Care Team (Late st Contact Info) Description 06/19/2016 10:14 AM EST - 06/19/2016 11:59 PM EST Hospital Encounter [facility] [address] [facility] 3rd [place] [address] Santo Salinas MD [address] [place] [id number] Discharge Disposition: Home or Self Care Social [...] Reading Time Taken Comments Blood Pressure 140/80 06/19/2016 11:54 AM EST Pulse 64 06/19/2016 11:54 AM EST Temperature - - Respiratory Rate - - Oxygen Saturation - - Inhaled Oxygen Concentration - - Weight 91.2 kg (201 lb) 06/19/2016 11:54 AM EST Height 167.6 cm (5' 6 ) 06/19/2016 11:54 AM EST Body Mass Index 32.44 06/19/2016 11:54 AM EST documented in this encounter Medications at Time [...] Visit [facility] [address] [facility] [address] [place] [address] Goyo Khan MD [address] [place] [address] 09/02/2024 11:30 AM EDT Office Visit [facility] CARDI[facility]ACIC SURGERY [address] [place] [address] Dee Jaimes, RETAIL SEASONAL SPECIALIST [address] [place] [address] documented as of this encounter Procedures Procedure Name Priority Date/Time Associated Diagnosis Comments STRESS TEST, EXERCISE WITH MYOCARDIAL PERFUSION SPECT (SINGLE STUDY) Routine 06/19/2016 12:03 PM EST Hypertensive heart disease without heart failure Labile hypertension Obstructive sleep apnea on CPAP Mild obesity Other chest pain documented in this encounter Visit Diagnoses Not on filedocumented in this encounter Administered Medications Inactive Administered Medications - up to 3 most recent administrations Medication Order MAR Action Action Date Dose Rate Site technetium sestamibi (CARDIOLITE) injection 1 dose 1 dose, Intravenous, Once in Imaging, On Fri06/19/16 at 1030, For 1 dose, Millicuries: 9.7 Given 06/19/2016 10:25 AM EST 1 dose technetium sestamibi (CARDIOLITE) injection 1 dose 1 dose, Intravenous, Once in Imaging, On Fri06/19/16 at 1215, For 1 dose, Millicuries: 33 Given 06/19/2016 12:05 PM EST 1 dose documented in this encounter Care Teams Overlock Hemmer Relationship Specialty Start Date End Date Rafael Barajas MD [address] [facility] [address] [place] [address] PCP - General 04/12/15 03/19/22 documented as of this encounter
--- OUTSIDE RECORDS SUMMARY | 2024-05-04 22:49 | XMS_ITS | Encounter Summary ---
[facility] Address [address] [place] [address] Care Team Providers Care Plumbing Assembler Name Role Phone Rafael Barajas MD Primary Care Provider + [phone] Reason for Visit * MRI/CAT/PET Scan (Routine) - Closed Specialty Diagnoses / Procedures Referred By Heather santos Referred To Contact Radiology Diagnoses Dyspnea on exertion Procedures CT Angiogram Chest With & Without Contrast Santo Salinas MD [address] [facility] [address] [place] [address] Phone: tel: fax: [facility] [address] [place] [address] Phone: tel: Referral ID Status Reason Start Date Expiration Date Visits Re quested Visits Authorized [id number] Closed 12/28/2021 12/28/2022 1 1 Encounter Details Date Type Department Care Team (Latest Contact Info) Description 02/13/2022 11:30 AM EDT - 02/13/2022 11:59 PM EDT Hospital Encounter [facility] [address] [place] [address] Discharge Disposition: Home or Self Care Social [...] 07/29/2024 10:45 AM EST Office Visit [facility] [address] [place] [address] Goyo Khan MD [address] [facility] [address] [place] [address] 09/02/2024 11:30 AM EDT Office Visit [facility] CARDI[facility]GERY [address] [place] [phone] Dee Jaimes, POLICY WRITER SALES [address] [place], [place] [phone] documented as of this encounter Procedures Procedure Name Priority Date/Time Associated Diagnosis Comments CT ANGIOGRAM CHEST W WO CONTRAST Routine 02/13/2022 11:59 AM EDT Dyspnea on exertion documented in this encounter Visit Diagnoses Not on filedocumented in this encounter Administered Medications Inactive Administered Medications - up to 3 most recent administrations Medication Order MAR Action Action Date Dose Rate Site iopamidol (ISOVUE-370) 76 % injection 100 mL 100 mL, Intravenous, Once in Imaging, On Fri02/13/22 at 1202, For 1 dose Given 02/13/2022 11:50 AM EDT 90 mL documented in this encounter Care Teams Plumbing Assembler Relationship Specialty Start Date End Date Rafael Barajas MD [address] [facility] [address] [place] [address] PCP - General 04/12/15 03/19/22 documented as of this encounter
--- OUTSIDE RECORDS SUMMARY | 2024-05-04 22:49 | XMS_ITS | Encounter Summary ---
Author Organization [facility] Address [address] [place] [address] Care Team Providers Care Manager Sales Support Name Role Phone Rafael Barajas MD Primary Care Provider + [phone] Encounter Details Date Type Department Care Team (Late st Contact Info) Description 06/22/2021 Telephone [facility] [address] [facility] [address] [place] [address] Santo Salinas MD [address] [facility] [address] [place] [address] Social History Tobacco Use Types Packs/Day Years [...] Telephone Encounter - Anika Garcia RN - 06/25/2021 9:39 AM EST Lab orders faxed to [facility]. * Telephone Encounter - Santo Salinas MD - 06/22/2021 3:39 PM EST Noted and concur. Thanks! * Telephone Encounter - Anika Garcia, RN - 06/22/2021 3:34 PM EST Patient called for lab orders to be sent to [facility] in [place]. Ok to order TSH, FLP, CBC, CMP? Please advise. F# [phone] documented in this encounter Plan of Treatment Upcoming Encounters Date Type Department Care Team (Late st Contact Info) Description 07/29/2024 10:45 AM EST Office Visit [facility] [address] [facility] [address] [place] [address] Goyo Khan MD [address] [facility] [address] [place] [address] 09/02/2024 11:30 AM EDT Office Visit [facility] [address] [facility] [address] [place] [address] Dee Jaimes APRN [address] [facility] [address] [place] [address] documented as of this encounter Visit Diagnoses Diagnosis Dyslipidemia- Primary Other and unspecified hyperlipidemia Hypertensive heart disease without heart failure Unspecified hypertensive heart disease without heart failure Mild obesity documented in this encounter Care Teams Manager Sales Support Relationship Specialty Start Date End Date Rafael Barajas MD [address] [facility] [address] [place] [address] PCP - General 04/12/15 03/19/22 documented as of this encounter
--- OUTSIDE RECORDS SUMMARY | 2024-05-04 22:49 | XMS_ITS | Encounter Summary ---
[facility] Address [address] [place] [address] Care Team Providers Care Vb Developer Name Role Phone Talon Barragan MD Primary Care Provider Reason for Referral * Diagnostic Medical (Routine) - Closed Specialty Diagnoses / Procedures Referred By Heather santos Referred To Contact Diagnoses Dyspnea on exertion Procedures Adult Transthoracic Echo Complete w/ Color, Spectral and Contrast if necessary per protocol Baylee Gross DO Phone: tel: fax: [address] [address] Phone: tel: Referral ID Status Reason Start Date Expiration Date Visits Re quested Visits Authorized [id number] Closed 03/20/2022 03/20/2023 1 1 Reason for Visit * Diagnostic Medical (Routine) - Closed Specialty Diagnoses / Procedures Referred By Contac danielle Referred To Contact Diagnoses Dyspnea on exertion Procedures Adult Transthoracic Echo Complete w/ Color, Spectral and Contrast if necessary per protocol Baylee Gross DO Phone: tel: fax: [address] [address] Phone: tel: Referral ID Status Reason Start Date Expiration Date Visits Re quested Visits Authorized [id number] Closed 03/20/2022 03/20/2023 1 1 Encounter Details Date Type Department Care Team (Late st Contact Info) Description 04/04/2022 10:27 AM EST - 04/04/2022 11:59 PM EST Hospital Encounter [facility] AT [facility] [address] [facility] [place] [address] RenatoBaylee VGene, DO [address] [place] [address] Dyspnea on exertion Discharge Disposition: Home or [...] - Inhaled Oxygen Concentration - - Weight 98 kg (216 lb 0.8 oz) 04/04/2022 12:51 PM EST Height 167 cm (5' 5.75 ) 04/04/2022 12:51 PM EST Body Mass Index 35.14 04/04/2022 12:51 PM EST documented in this encounter Medications at [...] Visit [facility] C[facility]IOLOG[facility] [address] [facility] [address] [place] [address] Goyo Khan MD [address]20 [facility] [address] [place], [place] [id number] 09/02/2024 11:30 AM EDT Office Visit [facility] CARDIOTHORACIC SURGERY [address] [facility] [address] [place] [address] Dee Jaimes APRN [address] [facility] [address] [place] [address] documented as of this encounter Procedures Procedure Name Priority Date/Time Associated Diagnosis Comments ECHO COMPLETE W/ DOPPLER AND COLOR FLOW Routine 04/04/2022 12:52 PM EST Dyspnea on exertion documented in this encounter Results * ECHO COMPLETE W/ [...] abnormality documented in this encounter Care Teams Vb Developer Relationship Specialty Start Date End Date Talon Barragan MD [facility] [address] [facility] [address] [place] [address] PCP - General Family Medicine 03/20/22 documented as of this encounter
--- OUTSIDE RECORDS SUMMARY | 2024-05-04 22:49 | XMS_ITS | Encounter Summary ---
[facility] Address [address] [place] [address] Care Team Providers Care Fertilizer Applicator Name Role Phone Rafael Barajas MD Primary Care Provider [phone] Reason for Visit * Reason Comments Hypertensive heart disease without heart failure Encounter Details Date Type Department Care Team (Late st Contact Info) Description 06/29/2021 1:00 PM EST Office Visit [facility] CARDIOLOG[facility] [address] [facility] [address] [place] [phone] Santo Salinas MD [address] [facility] [address] [place] [address] Hypertensive heart disease without heart failure (Primary [...] - - Weight 92.5 kg (204 lb) 06/29/2021 11:35 AM EST Height 167.6 cm (5' 6 ) 06/29/2021 11:35 AM EST Body Mass Index 32.93 06/29/2021 11:35 AM EST documented in this encounter Progress Notes * Santo Salinas MD - 06/29/2021 1:00 PM EST Subjective: Encounter Date:06/29/2021 Patient ID: Juany Alarcon is a 71 y.o. 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 ?? REFERRING PHYSICIAN/ONCOLOGY RADIATION PHYSICIAN: Bassem Barragan MD CURRENT PHYSICIAN: ??Rafael Barajas MD BIOCHEMICAL ENGINEER: Katarina Tan MD NEUROSURGEON: Adrian Faye MD/ Edwin Fernandez MD ([facility]) ORTHOPEDIC SURGEON: ??Josh Arellano MD ONCOLOGIC SURGEON: [...] c. Residual class I symptoms, June 2021. 2. Labile hypertension. 3. Migraine headaches. 4. [...] Daily., Disp: 90 tablet, Rfl: 3 ??? benzonatate (TESSALON) 200 MG capsule, Take 200 mg by mouth As Needed., Disp: , Rfl: ??? bisoprolol-hydrochlorothiazide (ZIAC) 5-6.25 MG per tablet, Take 1 tablet by mouth Daily., Disp: 90 tablet, Rfl: 3 ??? Cholecalciferol (VITAMIN D3) 2000 units tablet, Take 2,000 Units by mouth Daily., Disp: , Rfl: ??? cyanocobalamin (VITAMIN B-12) 500 MCG tablet, Take 500 mcg by mouth Daily., Disp: , Rfl: ??? etodolac (LODINE) 500 MG tablet, Take 500 mg by mouth 2 (Two) Times a Day., Disp: , Rfl: ??? gabapentin (NEURONTIN) 100 [...] 2 tablets daily, Disp: , Rfl: ??? metoclopramide (REGLAN) 5 MG tablet, Take 5 mg by mouth Daily., Disp: , Rfl: ??? Unable to find, 1 each 1 (One) Time. Med Name: Evening Prim Isabelle 1 tablet daily, Disp: , Rfl: History of Present Illness: Patient has telephone visit for scheduled 12-month follow up. She has been feeling fairly well overall from a cardiovascular standpoint. Patient denies palpitations, edema, dizziness, and syncope. She notes if she walks briskly or goes up more than 1-2 flights of stairs she will become short of breath. She has had no chest pressure, cough, sputum production, pleurisy, or hemoptysis. She had lab work collected 72 hours ago in [place]. Her blood pressure was 140/80 and he heart rate was 68 when she checked it today. She has had no interim ER visits, hospitalizations, serious illnesses, or surgeries. ROS Obtained and negative except as outlined in problem list and HPI. Procedures Objective: Vitals: 06/29/21 1135 Weight: 92.5 kg (204 lb) Height: 167.6 cm (66 ) Body mass index is 32.93 kg/m??. Last weight: 208 lbs Physical Exam not able to be performed due to telephone visit. Lab Review: Lab Results Component Value Date GLUCOSE 102 (H) 06/20/2020 BUN 20 06/20/2020 CREATININE 1.01 (H) 06/20/2020 [...] 1.210 06/20/2020 Lab Results Component Value Date CHLPL 131 06/20/2020 CHLPL 139 06/22/2018 CHLPL 191 06/13/2017 Lab Results Component Value Date TRIG 84 06/20/2020 TRIG 96 06/22/2018 TRIG 82 06/13/2017 Lab Results Component Value Date HDL 53 06/20/2020 HDL 63 06/22/2018 HDL 56 06/13/2017 Lab Results Component Value Date LDL 62 06/20/2020 LDL 57 06/22/2018 LDL 119 (H) 06/13/2017 Assessment: Overall continued acceptable course with no new interim cardiopulmonary complaints with acceptable functional status. We will defer additional diagnostic or therapeutic intervention from a cardiac perspective at this time. We will attempt to obtain her recent laboratory studies from [place] and these will be reviewed with her by letter. Diagnosis Plan 1. Hypertensive heart disease without heart failure No progressive angina pectoris or CHF on current activity schedule; continue current treatment 2. Labile hypertension Well controlled. Continue current treatment 3. Dyslipidemia Well controlled. Continue rosuvastatin. 4. Mild obesity BMI 32.93. Encouraged caloric restriction and activity as tolerated. Plan: 1. Patient to continue current medications and close follow up with the above providers. 2. Patient is encouraged to implement a regular aerobic exercise routine, at least 30 minutes daily, 4-5 days per week. 3. Tentative cardiology follow up in December 2021 or patient may return sooner PRN. I, Lars Deleon, attest that this documentation has been prepared under the direction and in the presence of Santo Salinas MD 06/29/2021 This patient has consented to a telehealth visit via telephone. The visit was scheduled as a telephone visit to comply with patient safety concerns in accordance with CDC recommendations. All vitals recorded within this visit are reported by the patient. I spent 25 minutes in total including but not limited to the 10 minutes spent in direct conversation with this patient. documented in this encounter Plan of Treatment Upcoming Encounters Date Type Department Care Team (Late st Contact Info) Description 07/29/2024 10:45 AM EST Office Visit [facility] CARDIOLOGY [address] [facility] [address] [place] [address] Goyo Khan MD 1720 [facility] [address] [place] [address] 09/02/2024 11:30 AM EDT Office Visit [facility] CARDIOTHORACIC SURGERY [address] [facility] [address] [place] [address] Dee Jaimes APRN [address] [facility] [address] [place] [address] documented as of this encounter Visit Diagnoses Diagnosis Hypertensive heart disease without heart failure- Primary Unspecified hypertensive heart disease without heart failure Labile hypertension Dyslipidemia Other and unspecified hyperlipidemia Mild obesity documented in this encounter Care Teams Fertilizer Applicator Relationship Specialty Start Date End Date Rafael Barajas MD [address] [facility] [address] [place] [address] PCP - General 04/12/15 03/19/22 documented as of this encounter
--- OUTSIDE RECORDS SUMMARY | 2024-05-04 22:49 | XMS_ITS | Encounter Summary ---
[facility] Address [address] [place] [address] Care Team Providers Care Manager Cardiac Cath Name Role Phone Rafael Barajas MD Primary Care Provider + [phone] Reason for Referral * Diagnostic Imaging (Routine) - Closed Specialty Diagnoses / Procedures Referred By Heather santos Referred To Contact Diagnoses Hypertensive heart disease without heart failure Labile hypertension Obstructive sleep apnea on CPAP Mild obesity Other chest pain Procedures Stress Test With Myocardial Perfusion Santo Salinas MD [address] [place] [address] Phone: tel: fax: [facility] [address] [place] [address] Phone: tel: Referral ID Status Reason Start Date Expiration Date Visits Re quested Visits Authorized [id number] Closed 05/29/2016 05/29/2017 4 4 Reason for Visit * Diagnostic Imaging (Routine) - Closed Specialty Diagnoses / Procedures Referred By Heather santos Referred To Contact Diagnoses Hypertensive heart disease without heart failure Labile hypertension Obstructive sleep apnea on CPAP Mild obesity Other chest pain Procedures Stress Test With Myocardial Perfusion Santo Salinas MD [address] [place] [address] Phone: tel: fax: [facility] [address] [place] [address] Phone: tel: Referral ID Status Reason Start Date Expiration Date Visits Re quested Visits Authorized [id number] Closed 05/29/2016 05/29/2017 4 4 Encounter Details Date Type Department Care Team (Late st Contact Info) Description 06/19/2016 10:14 AM EST - 06/19/2016 11:59 PM EST Hospital Encounter [facility] CARDI[facility] [address]20 [facility] 3rd [place] [address] Santo Salinas MD [address] [facility] [address] [place] [id number] Hypertensive heart disease without heart failure; Labile hypertension; Obstructive sleep apnea on CPAP; Mild obesity; Other chest pain Discharge Disposition: Home or Self Care [...] Description 07/29/2024 10:45 AM EST Office Visit [facility] [address] [place] [address] Goyo Khan MD 1720 [facility] [address] [place] [address] 09/02/2024 11:30 AM EDT Office Visit [facility] CARDIOTHORACIC SURGERY [address] [facility] [address] [place] [address] Dee Jaimes APRN [address] [facility] [address] [place], [place] [phone] documented as of this encounter Procedures Procedure [...] 0.00% The left ventricular perfusion is normal. Santo Salinas MD CV STRESS ORDERABLES Final Res ult documented in this encounter Visit Diagnoses Diagnosis Hypertensive heart disease without heart failure Unspecified hypertensive heart disease without heart failure Labile hypertension Obstructive sleep apnea on CPAP Mild obesity Other chest pain documented in this encounter Care Teams Manager Cardiac Cath Relationship Specialty Start Date End Date Rafael Barajas MD [facility] [address] [place] [address] PCP - General 04/12/15 03/19/22 documented as of this encounter
--- OUTSIDE RECORDS SUMMARY | 2024-05-04 22:49 | XMS_ITS | Encounter Summary ---
[facility] Address [address] [place] [address] Care Team Providers Care Job Service Specialist Name Role Phone Rafael Barajas MD Primary Care Provider [phone] Reason for Referral * MRI/CAT/PET Scan (Routine) - Closed Specialty Diagnoses / Procedures Referred By Heather santos Referred To Contact Radiology Diagnoses Dyspnea on exertion Procedures CT Angiogram Chest With & Without Contrast Santo Salinas MD [address] [place] [address] Phone: tel: fax: [address] [address] Phone: tel: Referral ID Status Reason Start Date Expiration Date Visits Re quested Visits Authorized [id number] Closed 12/28/2021 12/28/2022 1 1 * Diagnostic Medical (Routine) - Closed Specialty Diagnoses / Procedures Referred By Heather santos Referred To Contact Diagnoses Dyspnea on exertion Procedures Full Pulmonary Function Test With Bronchodilator Santo Salinas MD [address] [place] [address] Phone: tel: fax: [address] [place] [address] Phone: tel: Referral ID Status Reason Start Date Expiration Date Visits Re quested Visits Authorized [id number] Closed 12/28/2021 12/28/2022 1 1 Reason for Visit * Reason Comments Hypertensive heart disease without heart failure Encounter Details Date Type Department Care Team (Late st Contact Info) Description 12/28/2021 9:45 AM EDT Office Visit [facility] [address] [id number] aSnto Salinas MD [address] [facility] [place] [address] Hypertensive heart disease without heart failure (Primary Dx); Labile hypertension; Dyslipidemia; Mild obesity; Dyspnea on exertion Social History Tobacco Use Types Packs/Day Years [...] Sign Reading Time Taken Comments Blood Pressure 128/77 12/28/2021 9:46 AM EDT Pulse 72 12/28/2021 9:46 AM EDT Temperature - - Respiratory Rate - - Oxygen Saturation 98% 12/28/2021 9:38 AM EDT Inhaled Oxygen Concentration - - Weight 101 kg (222 lb 9.6 oz) 12/28/2021 9:38 AM EDT Height 167.6 cm (5' 6 ) 12/28/2021 9:38 AM EDT Body Mass Index 35.93 12/28/2021 9:38 AM EDT documented in this encounter Progress Notes * Santo Salinas MD - 12/28/2021 9:45 AM EDT Subjective: Encounter Date:12/28/2021 Patient ID: Juany Alarcon is a 71 y.o. 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 ?? REFERRING PHYSICIAN/FASHION PATTERNMAKER: Bassem Barragan MD CURRENT PHYSICIAN: ??Rafael Barajas MD DESKTOP MANAGER: Katarina Tan MD NEUROSURGEON: Adrian Faye MD/ Edwin Fernandez MD ([facility]) ORTHOPEDIC SURGEON: ??Josh Arellano MD ONCOLOGIC [...] capacity consistent with moderate physical deconditioning. e. CCS class 0 angina/NYHA class II BENITEZ December 2021 2. Labile hypertension. 3. Migraine headaches. 4. [...] I lobular carcinoma with scattered small foci (January 2015), with negative left axillary lymph node [...] ??? anastrozole (ARIMIDEX) 1 MG tablet, Take 1 mg by mouth Daily., Disp: , Rfl: [...] Day., Disp: , Rfl: ??? gabapentin (NEURONTIN) 300 MG capsule, Take 300 mg by mouth Every Night., Disp: , Rfl: ??? metoclopramide (REGLAN) 5 [...] Daily., Disp: 90 tablet, Rfl: 3 ??? meloxicam (MOBIC) 15 MG tablet, Take 15 mg by mouth Daily., Disp: , Rfl: History of Present Illness: Patient returns for scheduled 6-month follow up. In the interim the patient had a stress test November 2021 showing moderate physical deconditioning but no evidence of ischemia. She continues to have some shortness of breath on exertion with occasional wheezing. She denies any sputum production, lower extremity edema, chest pain, palpitations, dizziness, presyncope, or syncope. She is on limited activity due to back pain. She intermittently will get injections from Dr. Partida, which help with her pain so she can do more activity. She says that she cannot run her vacuum furniture cleaner in her house without becoming short of breath. She sometimes just takes breaks and then resumes her activity. She does not have an inhaler to use at home but did have to use it one time when shegot a bad sinus infection and it went to her lungs. She has had no additional interim ER visits, hospitalizations, serious illnesses, or surgeries. ROS Obtained and negative except as outlined in problem list and HPI. Procedures Objective: Vitals: 12/28/21 0938 12/28/21 0946 BP: 137/79 128/77 BP Location: Right arm Right arm Patient Position: Sitting Standing Cuff Size: Adult Adult Pulse: 64 72 SpO2: 98% Weight: 101 kg (222 lb 9.6 oz) Height: 167.6 cm (66 ) Recheck blood pressure right arm sitting was 120/78 Body mass index is 35.93 kg/m??. Last weight: 204 lbs Vitals reviewed. Constitutional: Appearance: Well-developed. Neck: Thyroid: No thyromegaly. Vascular: No carotid bruit or JVD. Lymphadenopathy: No cervical adenopathy. Pulmonary: Effort: Pulmonary effort is normal. Breath sounds: Decreased breath sounds present. No wheezing. No rhonchi. No rales. Cardiovascular: Regular rhythm. No gallop. No S3 gallop. Pulses: Dorsalis pedis: 1+ bilaterally. Posterior tibial: 1+ bilaterally. Abdominal: Palpations: Abdomen is soft. There is no abdominal mass. Tenderness: There is no abdominal tenderness. Musculoskeletal: Normal range of motion. Skin: General: Skin is warm and dry. Findings: No rash. Neurological: Mental Status: Alert and oriented to person, place, and time. Lab Review: No recent laboratory studies available for review today. Lab Results Component Value Date GLUCOSE 102 [...] LDL 57 06/22/2018 LDL 119 (H) 06/13/2017 ?? Lab date: 02 November 2021 ??? CMP: Glu 125, BUN 28, Creat 1.1, eGFR 49, Na 139, K 4.6, Cl 106, CO2 25, Ca 10 ??? LFT: Alk Phos 93, AST 26, ALT 29, Bili 0.9, Alb 4.3, Protein 6.7 ??? CBC: WBC 10.3, RBC 3.96, Hgb 12.4, Hct ?? XR Bilateral foot performed at [facility], 29 October 2021 ?? Left foot shows no protrusion of the broken K wire to the second third MP joint well embedded inthe second and third metatarsals, degenerative changes to the second third MP joint, no acute changes, no fracture or dislocation. ?? Right foot shows degenerative changes scattered throughout her foot, hammertoe deformities second through fifth toes with subluxation of the lesser MP joints. ??No acute changes. ??No fracture or dislocation. ?? Stress Test with myocardial perfusion, 28 November 2021 (reviewed with patient via letter, recommended remaining active, consider pulmonary medicine evaluation, keep blood pressure/lipids/glucose ?? Patient reported some chest fullness , [...] quantitative SPECT gated Cardiolite CT scan exercise stresstest without definitive ischemic ST-T changes or myocardial perfusion abnormalities suggestive of low probability for significant focal obstructive coronary artery disease with preserved systolic left ventricular function (LVEF 0.77) following exercise to 89% predicted maximal heart rate and only 72% predicted exercise capacity consistent with moderate physical deconditioning. Assessment: Overall continued acceptable course with no new interim cardiopulmonary complaints with fair functional status on limited activity. We will defer additional diagnostic or therapeutic intervention from a cardiac perspective at this time. The patient's stress test November 2021 showed moderate physical de conditioning but no evidence of ischemia. She continues to have some shortness of breath on exertion with occasional wheezing. We will screen her with PFTs with and without bronchodilators and order a CTA chest with contrast to exclude remote consideration of pulmonary thromboembolic disease, bronchiectasis or interstitial lung disease. May need to consider Wygovy at some point for her weight loss. Diagnosis Plan 1. Hypertensive heart disease without heart failure No recurrent angina pectoris or CHF on current activity schedule; continue current treatment 2. Labile hypertension Controlled, continue current cardiac medications 3. Dyslipidemia No new labs to review, continue rosuvastatin 4. Mild obesity Physical activity as tolerated, heart healthy diet 5. Dyspnea on Exertion PFTs with and without bronchodilators, CTA chest with contrast Plan: 1. Patient to continue current medications and close follow up with the above providers. 2. Tentative cardiology follow up in April 2022 or patient may return sooner PRN. 3. Patient is encouraged to implement a regular aerobic exercise routine, at least 30 minutes daily, 4-5 days per week. 4. The following imaging studies are recommended and ordered: A. PFTs with and without bronchodilators B. CTA chest with contrast Scribed for Santo Salinas MD by Keesha Claire, TYPING ELEMENT MACHINE OPERATOR 12/28/2021 09:47 EDT I, Santo Salinas MD, [facility], personally performed the services described in this documentation as scribed by the above named individual in my presence, and it is both accurate and complete. At 10:57EDT on 12/28/2021 documented in this encounter Plan of Treatment Upcoming Encounters Date Type Department Care Team (Late st Contact Info) Description 07/29/2024 10:45 AM EST Office Visit [facility] [address] [place] [address] Goyo Khan MD [address] [facility] [address] [place] [address] 09/02/2024 11:30 AM EDT Office Visit [facility] [address] [facility] [address] [place] [address] Dee Jaimes APRN [address] [facility] [address] [place], [place] [id number] documented as of this encounter Procedures Procedure [...] Santo Salinas MD PFT ORDERABLES Final Result * CT Angiogram Chest With & Without Contrast (02/13/2022 11:59 AM EDT) Anatomical Region Laterality Modality Chest, Vascular N/A Computed Tomogra phy 02/13/2022 12:1 4 PM EDT Impressions 02/13/2022 12:22 PM EDT 1. No evidence of pulmonary embolic disease. 2. Right aortic arch, and probably associated developmental vascular abnormality seen as a small eccentric proximal descending aortic aneurysm, with some mass effect on the esophagus and trachea. 3. No evidence of pneumonia, pulmonary edema, or other clearly acute chest disease. 4. Incidentally noted water density left lobe liver cyst. This report was finalized on 02/13/2022 12:[address] Asael Reina MD. Narrative 02/13/2022 12:22 PM EDT DATE OF EXAM: 02/13/2022 11:43 AM PROCEDURE: CT ANGIOGRAM CHEST W WO CONTRAST- INDICATIONS: Pulmonary embolism (PE) suspected, unknown D-dimer; R06.00-Dyspnea, unspecified COMPARISON: No comparisons available. TECHNIQUE: Contiguous axial imaging was obtained from the thoracic inlet through the upper abdomen following the intravenous administration of 90 mL of Isovue 370. Reconstructed coronal and sagittal images were also obtained. Automated exposure control and iterative reconstruction methods were used. The radiation dose reduction device was turned on for each scan per the ALARA (As Low as Reasonably Achievable) protocol. FINDINGS: There is a right-sided aortic arch with focal contour abnormality of the proximal descending aorta, appearing as a small saccular aneurysm, 14 x 18 mm in diameter, axial image 20, coronal image 51. This extends anteromedially from the descending aorta, and causes moderate mass effect on the esophagus, and mild mass effect on the trachea. No significant generalized ectasia of the aorta or evidence of dissection is seen. Pulmonary artery contrast is excellent, and no filling defects are identified. There is no evidence of pericardial or pleural effusion or mediastinal adenopathy. There is moderately extensive LAD calcification. Lungs appear clear of active disease. There is minimal dependent atelectasis the posterior lower lobes. Incidental note is made of grossly intact appearing left breast prosthesis. Included images of the upper abdomen show fatty liver change and a water density 18 mm left lobe liver cyst. No significant abnormalities are seen of the included portions of the spleen, pancreatic tail, adrenal glands, or upper renal poles. No upper abdominal adenopathy or ascites is seen. Bony structures appear to be intact. Procedure Note Asael Reina MD - 02/13/2022 DATE OF EXAM: 02/13/2022 11:43 AM PROCEDURE: CT ANGIOGRAM CHEST W WO CONTRAST- INDICATIONS: Pulmonary embolism (PE) suspected, unknown D-dimer; R06.00-Dyspnea, unspecified COMPARISON: No comparisons available. TECHNIQUE: Contiguous axial imaging was obtained from the thoracic inlet through the upper abdomen following the intravenous administration of 90 mL of Isovue 370. Reconstructed coronal and sagittal images were also obtained. Automated exposure control and iterative reconstruction methods were used. The radiation dose reduction device was turned on for each scan per the ALARA (As Low as Reasonably Achievable) protocol. FINDINGS: There is a right-sided aortic arch with focal contour abnormality of the proximal descending aorta, appearing as a small saccular aneurysm, 14 x 18 mm in diameter, axial image 20, coronal image 51. This extends anteromedially from the descending aorta, and causes moderate mass effect on the esophagus, and mild mass effect on the trachea. No significant generalized ectasia of the aorta or evidence of dissection is seen. Pulmonary artery contrast is excellent, and no filling defects are identified. There is no evidence of pericardial or pleural effusion or mediastinal adenopathy. There is moderately extensive LAD calcification. Lungs appear clear of active disease. There is minimal dependent atelectasis the posterior lower lobes. Incidental note is made of grossly intact appearing left breast prosthesis. Included images of the upper abdomen show fatty liver change and a water density 18 mm left lobe liver cyst. No significant abnormalities are seen of the included portions of the spleen, pancreatic tail, adrenal glands, or upper renal poles. No upper abdominal adenopathy or ascites is seen. Bony structures appear to be intact. IMPRESSION: 1. No evidence of pulmonary embolic disease. 2. Right aortic arch, and probably associated developmental vascular abnormality seen as a small eccentric proximal descending aortic aneurysm, with some mass effect on the esophagus and trachea. 3. No evidence of pneumonia, pulmonary edema, or other clearly acute chest disease. 4. Incidentally noted water density left lobe liver cyst. This report was finalized on 02/13/2022 12:[address] Asael Reina MD. us Santo Salinas MD IMG CT ORDERABLES Final Result documented in this encounter Visit Diagnoses Diagnosis Hypertensive heart disease without heart failure- Primary Unspecified hypertensive heart disease without heart failure Labile hypertension Dyslipidemia Other and unspecified hyperlipidemia Mild obesity Dyspnea on exertion Other dyspnea and respiratory abnormality Dyspnea on exertion Other dyspnea and respiratory abnormality documented in this encounter Care Teams Job Service Specialist Relationship Specialty Start Date End Date Rafael Barajas MD [address] [facility] [address] [facility] [address] [place] [address] PCP - General 04/12/15 03/19/22 documented as of this encounter
--- OUTSIDE RECORDS SUMMARY | 2024-05-04 22:49 | XMS_ITS | Encounter Summary ---
[facility] Address [address] [place] [address] Care Team Providers Care Carpenter Labor Supervisor Name Role Phone Rafael Barajas MD Primary Care Provider [phone] Reason for Visit * Diagnostic Imaging (Routine) - Closed Specialty Diagnoses / Procedures Referred By Heather santos Referred To Contact Diagnoses Hypertensive heart disease without heart failure Labile hypertension Obstructive sleep apnea on CPAP Mild obesity Other chest pain Procedures Stress Test With Myocardial Perfusion Santo Salinas MD [address] [place] [address] Phone: tel: fax: [facility] [address] [place] [address] Phone: tel: Referral ID Status Reason Start Date Expiration Date Visits Re quested Visits Authorized [id number] Closed 05/29/2016 05/29/2017 4 4 Encounter Details Date Type Department Care Team (Late st Contact Info) Description 06/19/2016 10:14 AM EST - 06/19/2016 11:59 PM EST Hospital Encounter [facility] [address] [facility] 3rd [place] [address] Santo Salinas MD [address] [place] [id number] Discharge Disposition: Home or Self Care Social [...] Office Visit [facility] [address] [facility] [address] [place] [address] Goyo Khan MD [address] [facility] [address] [place] [address] 09/02/2024 11:30 AM EDT Office Visit [facility] [address] [facility] [address] [place] [address] Dee Jaimes, CHOIR DIRECTOR [address] [facility] [address] [place] [address] documented as of this encounter Procedures Procedure [...] on filedocumented in this encounter Care Teams Carpenter Labor Supervisor Relationship Specialty Start Date End Date Rafael Barajas MD [facility] [address] [facility] [address] [place] [address] PCP - General 04/12/15 03/19/22 documented as of this encounter
--- OUTSIDE RECORDS SUMMARY | 2024-05-04 22:50 | XMS_ITS | Encounter Summary ---
Author Organization [place] [address] Care Team Providers Care Knife Finisher Name Role Phone Carlos Manuel Barragan Primary Care Provider [phone] Reason for Visit * Reason Comments Follow-up left foot bandage ch edenilson Encounter Details Date Type Department Care Team (Latest Contact Info) Description 03/31/2024 9:45 AM EST Clinical Support [facility] [address] [place] [phone] Sarahi Lyon MA Hallux valgus with bunions of left foot (Primary Dx); Metatarsus primus varus; Bunionette of left foot; Hammer toe of left foot Social History Tobacco Use Types Packs/Day Years Used Date Smoking Tobacco: Never Smokeless Tobacco: Never Tobacco Cessation:Counseling Given: No Alcohol Use Standard Drinks/Week Comments Yes 0 (1 standard drink = 0.6 oz pur e alcohol) socially Sexually Active Control Partners Comments Not Currently Comments No Sex and Gender Information Value Date Recorded Sex Assigned at Not on file Legal Sex Female 10:36 AM EDT Gender Identity Not on file Sexual Orientation Not on file documented as of this encounter Last Filed Vital Signs Vital Sign Reading Time Taken Comments Blood Pressure - - Pulse - - Temperature 36.7 ??C (98 ??F) 03/31/2024 9:40 AM EST Respiratory Rate - - Oxygen Saturation - - Inhaled Oxygen Concentration - - Weight 87.5 kg (193 lb) 03/31/2024 9:40 AM EST Height 167.6 cm (5' 6 ) 03/31/2024 9:40 AM EST Body Mass Index 31.15 03/31/2024 9:40 AM EST documented in this encounter Functional Status * Is the person deaf or does he/she have serious difficulty hearing? Answer Date of Assessment Author No 06/03/2015 1:49 PM Mitzi Jimenez APRN * Is the person blind or does he/she have serious difficulty seeing even when wearing glasses? Answer Date of Assessment Author No 06/03/2015 1:49 PM Mitzi Jimenez APRN * Does this person have serious difficulty walking or climbing stairs? Answer Date of Assessment Author No 06/03/2015 1:49 PM Mitzi Jimenez APRN * Does this person have difficulty dressing or bathing? Answer Date of Assessment Author No 06/03/2015 1:49 PM Mitzi Jimenez APRN * Because of a physical, mental or emotional condition, does this person have difficulty doing errands alone such as visiting a doctor's office or shopping? Answer Date of Assessment Author No 06/03/2015 1:49 PM Mitzi Jimenez APRN documented as of this encounter Mental Status * Because of a physical, mental or emotional condition, does this person have serious difficulty concentrating, remembering or making decisions? Answer Entry Date Author No 06/03/2015 1:49 PM Mitzi Jimenez APRN documented in this encounter Progress Notes * Sarahi Lyon MA - 03/31/2024 9:45 AM EST Images from the original note were not included. Patient presents today for a bandage changed. Patient denies any fever, chills, nausea or vomiting.Bandage was removed without complications. No signs of infections. Patients foot was bandaged with Xeroform, dry sterile gauze and coban. Patient to keep the foot clean and dry. Patient will follow up with Dr. Jha at next scheduled post operative exam. Patient gives verbal permission for this provider to take a picture of left foot in order to document in the patient record. The patient is aware that no data is stored anywhere except for [facility]. Thispermission was witnessed by NATHANIEL Mcclain. documented in this encounter Plan of Treatment Upcoming Encounters Date Type Department Care Team (Late st Contact Info) Description 05/24/2024 10:30 AM EST Office Visit [facility] [place] [address] [place] [address] [address] [place] [address] Nikolas Jha DPM [address] [place] [address] documented as of this encounter Goals Goal Patient Goal Type Associated Problems Recent Progress Patient-Stated? Author Breast [facility] Breast Health On track( 021 9:11 AM EDT) Maisha Anderson, RN Note: Patient will be compliant with monthly Self Breast Exams and is aware of to who to contact for any unusual or concerning findings. Breast Health Breast Health No Alexia Kim, CRISTOBAL Note: Patient will be compliant with monthly Self Breast Exams and is aware of to who to contact for any unusual or concerning findings. 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
--- OUTSIDE RECORDS SUMMARY | 2024-05-04 22:50 | XMS_ITS | Encounter Summary ---
Author Organization [place] [address] Care Team Providers Care Loading Unit Operator Name Role Phone Carlos Manuel Barragan Primary Care Provider [phone] Reason for Visit * Auth/Cert/Inpt Specialty Diagnoses / Procedures Referred By Heather t Referred To Contact Diagnoses Hallux valgus with bunions of left foot Bunionette of left foot Hammer toe of left foot Hallux valgus with bunions of left foot [M20.12, M21.612] Bunionette of left foot [M21.622] Hammer toe of left foot [M20.42] Procedures IL FUSION BIG TOE,MT-P JT IL OSTEOTOMY METATARSAL (NOT 1ST) IL REPAIR OF HAMMERTOE,ONE first metatarsophalangeal joint fusion left foot.fifth metatarsal osteotomy left foot.left fourth and fifth hammertoe repair. Referral ID Status Reason Start Date Expiration Date Visits Re quested Visits Authorized [id number] 1 1 Encounter Details Date Type Department Care Team (Late st Contact Info) Description 03/22/2024 10:25 AM EDT Anesthesia Event EDG [address] [place] [address] MD [address] [place] [address] Aaron Hendrix MD [address] [place] [address] DR [place], [place] [id number] Anesthesia Record Procedure Summary Procedure Name Responsible Anesthesiologist Anesthesia Start Time Anesthesia Stop Time TOE FUSION FIRST METATARSAL (Left: Foot/Ankle) Blanco Street MD 03/22/24 1025 03/22/24 1220 Events Date Time Event Comment 03/22/2024 0924 1019 AN Equip Check 1025 An Start 1025 An Start Data 1029 Immediate Pre Anesthetic Ass es 1031 Quick Note FLUID BOLUS STA RTED 1032 Anesthesia Ready 1033 Time out LOCAL INJ 1034 Block/ Injection Placed LOCA L INJ 1041 Time out FINAL 1042 An Tourn Inflated 250MMHG 1043 Incision 1213 An Tourn Deflated TOTAL TIME 1:30 1219 an stop data 1220 An Stop 1220 Handoff I completed my SBAR handoff to the receiving nurse which has included the followin. Identification of the patient, family, or patient surrogate 2. Identification of the responsible practitioner 3. Pertinent medical history 4. Surgical procedure and reason for procedure 5. Intraoperative anesthetic management 6. All current lines, drains and respiratory support. 7. Outstanding follow up orders (X-rays, consults etc) 8. Expectations/Plans for the early post-procedure period 9. Opportunity for questions and acknowledgement of understanding from the receiving PACU/ICU steamboat captain Meds Name Total propofol (DIPRIVAN) injection 40 mg propofol (DIPRIVAN) infusion 10 mg/mL 81 1,125 mcg lidocaine injection 1% 50 mg clindamycin in 5 % dextrose (CLEOCIN) IV PB 900 mg 900 mg ketorolac (TORADOL) IM/IV injection 30 m g 30 mg fentaNYL 50 MCG/ML INJ 25 mcg phenylephrine 100 mcg/ml 10ml (syringe) 600 mcg lactated ringers infusion 600 mL * Agents Name O2 Air * Blood No blood administrations on file. Lines, Drains, and Airways Type Details Placement Removal Peripheral IV 03/22/24; 934; 22; Left; Wrist; 1; 03/22/24; 1233; Therapy completed; Catheter intact, Dressing applied, No Complications 03/22/24 0935 by Tammy Montoya, CRISTOBAL 03/22/24 1233 by Shanta Camargo, CRISTOBAL Airway Device: Nasal Cannul a Salter; Placement Date: 03/22/24; Placement Time: 1030 (created via procedure documentation); Removal Date: 03/22/24; Removal Time: 1318 03/22/24 1030 by Tigist Agarwal CRNA 03/22/24 1318 by Discharge Provider, Automatic Incision/Wound 03/22/24; 1038; Foot ; Left, Anterior; 03/22/24; 1715 03/22/24 1038 by Diana Leon RN 03/22/24 1715 by Discharge Provider, Automatic documented in this encounter Social History Tobacco [...] on file documented as of this encounter Functional Status * Is the [...] Mitzi Jimenez APRN documented in this encounter Procedure Notes * Tigist Agarwal CRNA - 03/22/2024 10:38 AM EDTAssociated Order(s): Airway Intraop Airway Placement: Date/Time: 03/22/2024 10:30 AM Airway type: Nasal cannula salter documented in this encounter OR Notes * Anesthesia Postprocedure Evaluation - Blanco Street MD - 03/22/2024 1:18 PM EDT Post-Anesthesia Evaluation Note Patient Name: Juany Alarcon Patient Date: March 22, 2024 Post-Anesthesia Evaluation Post op vitals: stable Difficult airway: no Nausea controlled: yes Level of consciousness: awake Post anesthesia pain: adequate analgesia Airway patency: patent Respiratory status: room air Cardiovascular status: stable Hydration status: euvolemic Temperature: Normothermia Perioperative complications: NONE Vitals Value Taken Time BP 98/62 03/22/24 1230 Resp 16 03/22/24 1230 SpO2 100 % 03/22/24 1230 Temp 36.3 ??C (97.3 ??F) 03/22/24 1221 Pulse 70 03/22/24 1230 * Anesthesia Preprocedure Evaluation - Blanco Street MD - 03/16/2024 1:59 PM EDT Images from the original note were not included. Pre-Anesthesia Evaluation Note Patient Name: Juany Alarcon Sex: female Patient : 1950 Age: 73 y.o. Patient Date: March 16, 2024 Procedure(s): first metatarsophalangeal joint fusion left foot.fifth metatarsal osteotomy left foot.left fourth and fifth hammertoe repair. Anesthesia Evaluation Previous anesthesia. History of anesthetic complications: PONV Airway Mallampati: III Mouth: Small mouth/Arched pallate TM distance: >3 FB Neck ROM: full Possible difficult airway Dental Pulmonary (+) Sleep apnea (not using for many years) on CPAP Physical exam: Comments: Clear to auscultation Cardiovascular Comments: Holter 11/2023 ?? Average HR: 80. Min HR: 50. Max HR: 138. ?? Sinus rhythm with nominal ectopy ?? 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 Anesthesia Plan ASA 3 Last solid intake: The patient has not eaten within the last 8 hours. Last clear liquid intake: The patient has not had clear liquids within the last 2 hours. Anesthesia Plan: MAC Induction: intravenous Monitors: STD Informed consent Anesthetic plan and risks discussed with: patient and family. Chart Reviewed and patient examined documented in this encounter Plan of Treatment Upcoming Encounters Date Type Department Care Team (Late st Contact Info) Description 05/24/2024 10:30 AM EST Office Visit [facility] [address] [place] [phone] Nikolas Jha Mitzi [address] [place] [address] RD [address] [place] [phone] documented as of this encounter Goals Goal Patient Goal Type Associated Problems Recent Progress Patient-Stated? Author Breast Health Breast Health On track( 021 9:11 AM EDT) No Maisha Kirk, RN Note: Patient will be compliant with monthly Self Breast Exams and is aware of to who to contact for any unusual or concerning findings. [facility] Breast [facility] Alexia Williamson RN Note: Patient will be compliant with monthly Self Breast Exams and is aware of to who to contact for any unusual or concerning findings. documented as of this encounter Procedures Procedure Name Priority Date/Time Associated Diagnosis Comments INTRAOP AIRWAY PLACEMENT Routine 03/22/2024 10:30 AM EDT documented in this encounter Results * INTRAOP AIRWAY PLACEMENT (03/22/2024 10:30 AM EDT) Narrative [facility] - 03/22/2024 10:30 AM EDT Tigist Agarwal CRNA ? 03/22/2024 10:38 AM Intraop Airway Placement: Date/Time: 03/22/2024 10:30 AM ??Airway type: ??Nasal cannula salter us [address] MD [place] ANESTHESIA Final Result Performing Organization Address City/State/[facility] Co de Phone Number [facility] [address] [phone] documented in this encounter Visit Diagnoses Not on filedocumented in this encounter Administered Medications Inactive Administered Medications - up to 1 most recent administrations Medication Order MAR Action Action Date Dose Rate Site clindamycin in 5 % dextrose (CLEOCIN) IVPB 900 mg 900 mg, Intravenous, ONCE, 1 dose, On Fri03/22/24 at 0915, Administer over 60 Minutes, If true PCN allergy, Reason for Therapy: Surgical Prophylaxis Given 03/22/2024 10:29 AM EDT 900 mg fentaNYL (SUBLIMAZE) injection Intrathecal, PRN (Anesthesia), Starting on Fri03/22/24 at 1044, Until Fri03/22/24 at 1220, Anesthesia Intra-op Given 03/22/2024 10:44 AM EDT 25 mcg ketorolac (TORADOL) injection Intravenous, PRN (Anesthesia), Starting on Fri03/22/24 at 1214, Until Fri03/22/24 at 1220, Anesthesia Intra-op Given 03/22/2024 12:14 PM EDT 30 mg lactated ringers infusion Intravenous, at 50 mL/hr, PREPROCEDURE CONTINUOUS, Starting on Fri03/21/24 at 1542, Until Fri03/22/24 at 1038, To be given in SDS/Pre-op Holding Area, Pre-op (Holding/SDS Meds) IV Restarted 03/22/2024 10:25 AM EDT lidocaine 1% 10 mg/mL (1 %) injection Intravenous, PRN (Anesthesia), Starting on Fri03/22/24 at 1029, Until Fri03/22/24 at 1220, Anesthesia Intra-op Given 03/22/2024 10:29 AM EDT 50 mg phenylephrine injection Intravenous, PRN (Anesthesia), Starting on Fri03/22/24 at 1105, Until Fri03/22/24 at 1220, Anesthesia Intra-op Given 03/22/2024 12:14 PM EDT 100 mcg propofol (DIPRIVAN) infusion 10 mg/mL Intravenous, CONTINUOUS PRN, Starting on Fri03/22/24 at 1029, Until Fri03/22/24 at 1038, Anesthesia Intra-op Rate/Dose Change 03/22/2024 11:27 AM EDT 75 mcg/kg/min 39.375 mL/hr propofoL (DIPRIVAN) injection Intravenous, PRN (Anesthesia), Starting on Fri03/22/24 at 1029, Until Fri03/22/24 at 1220, Anesthesia Intra-op Given 03/22/2024 10:29 AM EDT 40 mg documented in this encounter Additional Health Concerns Assessment Noted Time A fall risk assessment has been complete d for the patient 10/21/2023 2:54 PM EDT documented as of this encounter Care Teams Loading Unit Operator Relationship Specialty Start Date End Date Carlos Manuel Barragan [address] [place] [address] [address] [place] [address] PCP - General 07/03/10 documented as of this encounter
--- OUTSIDE RECORDS SUMMARY | 2024-05-04 22:50 | XMS_ITS | Encounter Summary ---
Author Organization [place] [address] Care Team Providers Care Tool And Gauge Inspector Name Role Phone Carlos Manuel Barragan Primary Care Provider [phone] Encounter Details Date Type Department Care Team (Latest Contact Info) Description 04/19/2024 1:55 PM EST Ancillary Procedure [facility] [address] [place] [phone] Nikolas Jha, [facility] [address] [facility] [address] [place] [phone] Hallux valgus with bunions of left foot; Metatarsus primus varus; Bunionette of left foot Social History Tobacco Use [...] of Assessment Author No 06/03/2015 1:49 PM EST Mitzi Archer, POINTING MACHINE OPERATOR * Is the person blind or does he/she have serious difficulty seeing even when wearing glasses? Answer Date of Assessment Author No 06/03/2015 1:49 PM Mitzi Jimenez stephon Trejo APRN * Does this person have serious difficulty walking or climbing stairs? Answer Date of Assessment Author No 06/03/2015 1:49 PM Mitzi Jimenez stephon Trejo APRN * Does this person have difficulty dressing or bathing? Answer Date of Assessment Author No 06/03/2015 1:49 PM Mitzi Jimenezsa Neil APRN * Because of a physical, mental or emotional condition, does this person have difficulty doing errands alone such as visiting a doctor's office or shopping? Answer Date of Assessment Author No 06/03/2015 1:49 PM Mitzi Jimenez stephon Trejo APRN documented as of this encounter Mental Status * Because of a physical, mental or emotional condition, does this person have serious difficulty concentrating, remembering or making decisions? Answer Entry Date Author No 06/03/2015 1:49 PM Mitzi Jimenez stephon Trejo APRN documented in this encounter Plan of Treatment Upcoming Encounters Date Type Department Care Team (Late st Contact Info) Description 05/24/2024 10:30 AM EST Office Visit [facility] [address] [place] [phone] Nikolas Jha [address] [place] [phone] documented as of this encounter Goals Goal Patient Goal Type Associated Problems Recent Progress Patient-Stated? Author Breast [facility] Breast Health On track( 021 9:11 AM EDT) No Maisha Kirk, RN Note: Patient will be compliant with monthly Self Breast Exams and is aware of to who to contact for any unusual or concerning findings. Breast [facility] Breast Health No Alexia Kim RN Note: Patient will be compliant with monthly Self Breast Exams and is aware of to who to contact for any unusual or concerning findings. 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 ?? Fixation in place. 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
--- OUTSIDE RECORDS SUMMARY | 2024-05-04 22:50 | XMS_ITS | Encounter Summary ---
Author Organization [place] [address] Care Team Providers Care Inventory Coordinator Name Role Phone Carlos Manuel Barragan Primary Care Provider [phone] Reason for Visit * Reason Comments Post-op left foot Encounter Details Date Type Department Care Team (Late st Contact Info) Description 04/19/2024 1:15 PM EST Office Visit [facility] [address] [place] [address] Nikolas Jha, DPMitzi [address] [place] [address] Hallux valgus with bunions of left foot (Primary Dx); Metatarsus primus varus; Bunionette of left foot [...] Assessment Author No 06/03/2015 1:49 PM Mitzi Jimenez, TAKE AWAY ATTENDANT * Is the person blind or does he/she have serious difficulty seeing even when wearing glasses? Answer Date of Assessment Author No 06/03/2015 1:49 PM Mitzi Jimenez, TAKE AWAY ATTENDANT * Does this person have serious difficulty walking or climbing stairs? Answer Date of Assessment Author No 06/03/2015 1:49 PM Mitzi Jimenez, TAKE AWAY ATTENDANT * Does this person have difficulty dressing or bathing? Answer Date of Assessment Author No 06/03/2015 1:49 PM Mitzi Jimenez, TAKE AWAY ATTENDANT * Because of a physical, mental or emotional condition, does this person have difficulty doing errands alone such as visiting a doctor's office or shopping? Answer Date of Assessment Author No 06/03/2015 1:49 PM Mitzi Jimenez, TAKE AWAY ATTENDANT documented as of this encounter Mental Status * Because of a physical, mental or emotional condition, does this person have serious difficulty concentrating, remembering or making decisions? Answer Entry Date Author No 06/03/2015 1:49 PM Mitzi Jimenez Neil, TAKE AWAY ATTENDANT documented in this encounter Progress Notes * Nikolas Jha, SURENDRA - 04/19/2024 1:15 PM EST Images from the original note were not included. Subjective: Patient ID: Juany Conn is a 73 y.o. female. Chief Complaint: Post-op (left foot ) HPI 73 y.o. female complains of Post-op (left foot ) Operative Report DATE OF OPERATION: 03/22/2024 PREOPERATIVE DIAGNOSES: Hallux valgus with bunion deformity, left foot, with metatarsus primus varus. Tailor's bunion, left foot. Hammertoe, left fourth and fifth toes. POSTOPERATIVE DIAGNOSES: Hallux valgus with bunion deformity, left foot, with metatarsus primus varus. Tailor's bunion, left foot. Hammertoe, left fourth and fifth toes. PROCEDURES: 1st metatarsophalangeal joint fusion, left foot. 5th metatarsal osteotomy, left foot. Hammertoe repair, left 4th and 5th toes. Short leg splint, left. SURGEON: Nikolas Jha DPM. SELECT BANKER: None. ANESTHESIA: Local with IV sedation. HEMOSTASIS: Ankle tourniquet. ESTIMATED BLOOD LOSS: 1 mL. Pain. Wearing regular shoes. Past Medical History: Diagnosis Date Anemia when younger only Aortic aneurysm (HCC) stent placed 04/2022 - [facility] in [facility] Arthritis knees, hips,back BRCA negative Breast cancer (HCC) 02/09/2015 ILC, grade 1. No receptors at this time (not sufficient tissue), left, no radiation, no chemo Bunion, left 02/2024 Bunionette of left foot 02/2024 BENITEZ (dyspnea on exertion) 10/2023 started on beta elpidio, resolved 01/2024 Encounter for blood transfusion with THR 2 units Hammer toe of left foot 02/2024 Hyperlipidemia Hypertension Lumbar disc disease Motion sickness past history when younger Postoperative nausea and vomiting does well with patch behind ear Prediabetes Unspecified sleep apnea cpap at night. does not know setting Wears glasses for reading Current Outpatient Medications on File Prior to Visit Medication Sig Dispense Refill aspirin 81 mg tablet Take 81 mg by mouth daily. Bifidobacterium infantis (ALIGN ORAL) Take by mouth. cetirizine (ZYRTEC) 5 mg Oral Tablet Take by mouth daily. Cholecalciferol, Vitamin D3, 2,000 unit Oral Capsule Take by mouth daily. cyanocobalamin 100 mcg Oral Tablet Take by mouth daily. cyclobenzaprine (FLEXERIL) 5 mg Oral Tablet Take 5 mg by mouth 3 times daily as needed for Muscle spasms. diclofenac-misoprostoL (ARTHROTEC 75) 75-200 mg-mcg Oral Tab,IR & Delay Rel,Multiphasic Take 1 Tablet by mouth 2 times daily. metoclopramide HCl (REGLAN) 5 mg Oral Tablet Take 5 mg by mouth 2 times daily. metoprolol succinate (TOPROL-XL) 50 mg Oral Tablet Sustained Release 24 hr Take 50 mg by mouth daily. montelukast (SINGULAIR) 10 mg Oral Tablet Take 10 mg by mouth every evening. rosuvastatin (CRESTOR) 10 mg Oral Tablet Take 10 mg by mouth daily. valsartan (DIOVAN) 160 mg Oral Tablet Take 160 mg by mouth daily. No current facility-administered medications on file prior to visit. Past Surgical History: Procedure Laterality Date BREAST BIOPSY Left 02/07/2015 x 4 lymph nodes removed BREAST BIOPSY Left 03/03/2015 BREAST RECONSTRUCTION Left 11/16/2015 LEFT BREAST STAGE 2 RECONSTRUCTION WITH IMPLANT RIGHT BREAST REDUCTION FOR SYMMETRY ; Surgeon: Flaco Damon MD; Location: [facility]; Service: Plastics BREAST REDUCTION SURGERY Right 11/16/2015 Surgeon: Flaco Damon MD; Location: [facility]; Service: Plastics BREAST SURGERY Left 06/02/2015 BREAST RECONSTRUCTION 1ST STAGE WITH EXPANDERS ; Surgeon: Flaco Damon MD; Location: [facility]; Service: General CARPAL TUNNEL RELEASE Bilateral 02/12/2018 BILATERAL CARPAL TUNNEL RELEASE ; Surgeon: Francisco Javier Lepe MD; Location: [facility]; Service: Hand CHOLECYSTECTOMY COLONOSCOPY FOOT SURGERY Left 10/05/2010 hammertoes HAMMER TOE SURGERY Left 03/22/2024 Surgeon: Nikolas Jha DPM; Location: [facility]; Service: Podiatry TOE FUSION Left 03/22/2024 first metatarsophalangeal joint fusion left foot.fifth metatarsal osteotomy left foot.left fourth and fifth hammertoe repair.; Surgeon: Nikolas Jha DPM; Location: [facility]; Service: Podiatry TOE SURGERY Left 03/22/2024 Surgeon: Nikolas Jha DPM; Location: [facility]; Service: Podiatry TONSILLECTOMY TOTAL KNEE ARTHROPLASTY Right 2008 TOTAL KNEE ARTHROPLASTY Left 09/29/2018 LEFT TOTAL KNEE ARTHROPLASTY; Surgeon: Brian Newman MD; Location: [facility]; Service: Orthopedics VASCULAR SURGERY 04/26/2022 TVAR VASCULAR SURGERY Right 05/15/2022 right bracial artery cutdown and exploration, kelley thromboectomy WISDOM TOOTH EXTRACTION Family History Problem Relation Age of Onset Ovarian Cancer Mother 83 Cancer Mother uterus Heart Failure Father Thyroid Disease Father Breast Cancer Sister 52 High Blood Pressure Sister High Blood Pressure Sister Defects Brother Anesth Problems Neg Hx Social History Socioeconomic History Marital status: Spouse name: Not on file Number of children: Not on file Years of education: Not on file Highest education level: Not on file Occupational History Not on file Tobacco Use Smoking status: Never Smokeless tobacco: Never Vaping Use Vaping status: Never Used Substance and Sexual Activity Alcohol use: Yes Comment: socially Drug use: No Sexual activity: Not Currently Other Topics Concern Not on file Social History Narrative Not on file Social Drivers of Health Financial Resource Strain: Not on file Food Insecurity: Not on file Transportation Needs: Not on file Physical Activity: Not on file Stress: Not on file Social Connections: Unknown (03/03/2023) Received from [facility] Family and Community Support Help with Day-to-Day Activities: Not on file Lonely or Isolated: Not on file Intimate Partner Violence: Not At Risk (06/30/2023) [facility] Abuse Screen Feels Unsafe at Home or Work/School: no Feels Threatened by Someone: no Does Anyone Try to Keep You From Having Contact with Others or Doing Things Outside Your Home?: no Physical Signs of Abuse Present: no Housing Stability: Unknown (05/16/2023) Received from [facility] Housing Stability Current Living Arrangements: Not on file Potentially Unsafe Housing Conditions: Not on file Review of Systems Constitutional: Negative for fatigue and fever. Eyes: Negative for visual disturbance. Respiratory: Negative for shortness of breath. Cardiovascular: Negative for chest pain and leg swelling. Gastrointestinal: Negative for nausea and vomiting. Musculoskeletal: Negative for gait problem and joint swelling. Skin: Negative for rash and wound. Neurological: Positive for numbness (left foot). Negative for dizziness, weakness, light-headednessand headaches. Hematological: Does not bruise/bleed easily. All other systems reviewed and are negative. Objective: There were no vitals filed for this visit. There is no height or weight on file to calculate BMI. No results found for: HGBA1C XR FOOT LEFT AP LATERAL AND OBLIQUE STANDING Result Date: 04/19/2024 Stable postop, good alignment correction, no apparent complications. Fixation in place. Physical Exam Assessment and Plan: Diagnoses and all orders for this visit: Hallux valgus with bunions of left foot - XR FOOT LEFT AP LATERAL AND OBLIQUE STANDING; Future Metatarsus primus varus - XR FOOT LEFT AP LATERAL AND OBLIQUE STANDING; Future Bunionette of left foot - XR FOOT LEFT AP LATERAL AND OBLIQUE STANDING; Future Doing really well postop. No complications. Increase activity and sugar to tolerance. Continue with periodic rest ice compression elevation. Follow-up in 2 months. No follow-ups on file. documented in this encounter Plan of Treatment Upcoming Encounters Date Type Department Care Team (Late st Contact Info) Description 05/24/2024 10:30 AM EST Office Visit [facility] [place] [address] [place] [address] Nikolas Jha DPM [address] [place] [address] documented as of this encounter Goals Goal Patient Goal Type Associated Problems Recent Progress Patient-Stated? Author Breast Health Breast Health On track( 9:11 AM EDT) Maisha Anderson, RN Note: [...] concerning findings. documented as of this encounter Results * XR FOOT LEFT AP LATERAL AND OBLIQUE STANDING (04/19/2024 1:54 PM EST) Anatomical Region Laterality Modality Foot Radiographic Lindsey ging Narrative 04/19/2024 9:17 PM EST Stable postop, good alignment correction, no apparent complications. ?? Fixation in place. 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
--- OUTSIDE RECORDS SUMMARY | 2024-05-04 22:50 | XMS_ITS | Clinical Summary ---
Author Organization [facility] Address [address] [facility] [address] Phone Care Team Providers Care Exploration Geologist Name Role Phone Carlos Manuel Barragan Primary Care Provider [phone] Allergies Active Allergy Reactions Criticality Noted Date Comments Morphine Other (See Comments) High 01/12/2014 confusion Penicillins Rash Medium 07/06/2010 Medications aspirin 81 mg tabletIndications :per Ortho instructions - resume when off Eliquis Take 81 mg by mouth daily. Active montelukast (SINGULAIR) 10 mg Oral Tablet Take 10 mg by mouth every evening. Active Cholecalciferol, Vitamin D3, 2,000 unit Oral Capsule Take by mouth daily. Active rosuvastatin (CRESTOR) 10 mg Oral Tablet Take 10 mg by mouth daily. Active metoclopramide HCl (REGLAN) 5 mg Oral Tablet Take 5 mg by mouth 2 times daily. Active cyanocobalamin 100 mcg Oral Tablet Take by mouth daily. Active valsartan (DIOVAN) 160 mg Oral Tablet Take 160 mg by mouth daily. Active metoprolol succinate (TOPROL-XL) 50 mg Oral Tablet Sustained Release 24 hr Take 50 mg by mouth daily. Active Bifidobacterium infantis (ALIGN ORAL) Take by mouth. Active diclofenac-misopr ostoL (ARTHROTEC 75) 75-200 mg-mcg Oral Tab,IR & Delay Rel,Multiphasic Take 1 Tablet by mouth 2 times daily. Active cyclobenzaprine (FLEXERIL) 5 mg Oral Tablet Take 5 mg by mouth 3 times daily as needed for Muscle spasms. Active cetirizine (ZYRTEC) 5 mg Oral Tablet Take by mouth daily. 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 No receptors at this time (not sufficient tissue) Encounters Date Type Department Care Team Description 04/19/2024 1:55 PM EST Ancillary Procedure [address] [phone] Nikolas Jha DPM Hallux valgus with bunions of left foot; Metatarsus primus varus; Bunionette of left foot 04/19/2024 1:15 PM EST Office Visit [address] [phone] Nikolas Jha DPM Hallux valgus with bunions of left foot (Primary Dx); Metatarsus primus varus; Bunionette of left foot 04/07/2024 10:00 AM EST Clinical Support [address] [phone] Sarahi Lyon MA Hallux valgus with bunions of left foot (Primary Dx); Metatarsus primus varus; Bunionette of left foot 03/31/2024 9:45 AM EST Clinical Support [address] [address] Sarahi Lyon MA Hallux valgus with bunions of left foot (Primary Dx); Metatarsus primus varus; Bunionette of left foot; Hammer toe of left foot 03/25/2024 4:40 PM EDT Ancillary Procedure [facility] [address] [phone] Nikolas Jha, DPMitzi Hallux valgus with bunions of left foot; Metatarsus primus varus; Bunionette of left foot; Hammer toe of left foot 03/25/2024 4:00 PM EDT Office Visit [facility] [address] [phone] Nikolas Jha, DPMitzi Hallux valgus with bunions of left foot (Primary Dx); Metatarsus primus varus; Bunionette of left foot; Hammer toe of left foot 03/22/2024 12:05 PM EDT Ancillary Procedure [facility] [address] [place] [phone] Nikolas Jha DPM 03/22/2024 10:25 AM EDT Anesthesia Event [facility] [address] [place] [phone] MD Dickinson, Timothy D, MD 03/22/2024 10:03 AM EDT - 03/22/2024 12:16 PM EDT Surgery [facility] [address] [place] [address] Nikolas Jha DPM TOE FUSION FIRST METATARSAL 03/22/2024 8:54 AM EDT - 03/22/2024 1:10 PM EDT Hospital Encounter [facility] [address] [place] [address] Nikolas Jha DPM Discharge Disposition: Home or Self Care 03/16/2024 Travel 03/08/2024 Orders Only [facility] Podiatry [address] [place] [address] Nikolas Jha, DPM Hallux valgus with bunions of left foot (Primary Dx); Bunionette of left foot; Hammer toe of left foot 03/04/2024 11:00 AM EDT Office Visit [facility] [address] [place] [phone] Nikolas Jha A, DPM Hallux valgus with bunions of left foot (Primary Dx); Bunionette of left foot; Hammer toe of left foot 03/01/2024 Telephone [facility] [address] [place] [phone] Nikolas Jha, DPM Other from Last 3 Months Surgical History Surgery Date Site/Laterality Comments CHOLECYSTECTOMY TONSILLECTOMY COLONOSCOPY WISDOM TOOTH EXTRACTION TOTAL KNEE ARTHROPLASTY 05/26/2008 - 05/25/2009 Right FOOT SURGERY 10/05/2010 Left hammertoes BREAST BIOPSY 02/07/2015 Left x 4 lymph nodes removed BREAST SURGERY 06/02/2015 Left Left BREAST RECONSTRUCTION 1ST STAGE WITH EXPANDERS ; Surgeon: Flaco Damon MD; Location: [facility]; Service: General Medical devices from this surgery are in the Medical Devices section. BREAST BIOPSY 03/03/2015 Left BREAST RECONSTRUCTION 11/16/2015 Breast/Left LEFT BREAST STAGE 2 RECONSTRUCTION WITH IMPLANT RIGHT BREAST REDUCTION FOR SYMMETRY ; Surgeon: Flaco Damon MD; Location: [facility]; Service: Plastics Medical devices from this surgery are in the Medical Devices section. BREAST REDUCTION SURGERY 11/16/2015 Breast/Right Surgeon: Flaco Damon MD; Location: [facility]; Service: Plastics Medical devices from this surgery are in the Medical Devices section. CARPAL TUNNEL RELEASE 02/12/2018 Bilateral BILATERAL CARPAL TUNNEL RELEASE ; Surgeon: Francisco Javier Lepe MD; [facility]; Service: Hand TOTAL KNEE ARTHROPLASTY 09/29/2018 Knee/Left LEFT TOTAL KNEE ARTHROPLASTY; Surgeon: Brian Newman MD; Location: [facility]; Service: Orthopedics Medical devices from this surgery are in the Medical Devices section. VASCULAR SURGERY 04/26/2022 TVAR VASCULAR SURGERY 05/15/2022 Right right bracial artery cutdown and exploration, kelley thromboectomy TOE FUSION 03/22/2024 Foot/Ankle/Left first metatarsophalangeal joint fusion left foot.fifth metatarsal osteotomy left foot.left fourth and fifth hammertoe repair.; Surgeon: Nikolas Jha DPM; Location: [facility]; Service: Podiatry Medical devices from this surgery are in the Medical Devices section. TOE SURGERY 03/22/2024 Foot/Ankle/Left Surgeon: Nikolas Jha DPM; Location: [facility]; Service: Podiatry Medical devices from this surgery are in the Medical Devices section. HAMMER TOE SURGERY 03/22/2024 Foot/Ankle/Left Surgeon: Nikolas Jha DPM; Location: [facility]; Service: Podiatry Medical devices from this surgery are in the Medical Devices section. Medical History Medical History Date Comments Hypertension Postoperative nausea and vomiting does well with patch behind ear Anemia when younger onl y Arthritis knees, hips,back BRCA negative Hyperlipidemia Encounter for blood transfusion with THR 2 units Breast cancer (HCC) 02/09/2015 ILC, grade 1 . No receptors at this time (not sufficient tissue), left, no radiation, no chemo Wears glasses for reading Motion sickness past history whe n younger Unspecified sleep apnea cpap at night. does not know setting Bunion, left 02/2024 Hammer toe of left foot 02/2024 Bunionette of left foot 02/2024 Prediabetes BENITEZ (dyspnea on exertion) 10/2023 starte d on beta elpidio, resolved 01/2024 Lumbar disc disease Aortic aneurysm (HCC) stent plac ed 04/2022 [facility] Family History Medical History Relation Name Comments Defects Brother Heart Failure Father Thyroid Disease Father Cancer Mother uterus Ovarian Cancer Mother Breast Cancer Sister 1 High Blood Pressure Sister 1 High Blood Pressure Sister 2 Anesth Problems Neg Hx Relation Name Status Comments Brother Father Mother Sister 1 Alive Sister 2 Alive Social History Tobacco Use Types Packs/Day Years [...] on file Sexual Orientation Not on file Obstetrics History Para Term AB IAB SAB Ectopic Multiple Livin g Live Births 1 1 Date Outcome GA Total Labor Labor/2nd/3rd Weight Sex Type Anes PTL Umm A1 A5 Name Clin Para CSP Last Filed Vital Signs Vital Sign Reading Time Taken Comments Blood Pressure 98/62 03/22/2024 12:30 PM EDT Pulse 70 03/22/2024 12:30 PM EDT Temperature 36.5 ??C (97.7 ??F) 04/07/2024 9:41 AM ES T Respiratory Rate 16 03/22/2024 12:30 PM EDT Oxygen Saturation 100% 03/22/2024 12:30 PM EDT Inhaled Oxygen Concentration - - Weight 87.5 kg (193 lb) 04/07/2024 9:41 AM EST Height 167.6 cm (5' 6 ) 04/07/2024 9:41 AM EST Body Mass Index 31.15 04/07/2024 9:41 AM EST Plan of Treatment Upcoming Encounters Date Type Department Care Team (Late st Contact Info) Description 05/24/2024 10:30 AM EST Office Visit [facility] [address] [place] [phone] Nikolas Jha, DPM [address] [place] [address] Health Maintenance Due Date Last Done Comments Wellness Exam Medicare 1952 Hepatitis C Screening 1969 Cologuard 1996 FIT 1996 Sigmoidoscopy 1996 Virtual Colonography 1996 DTaP/TDaP/Td (1 - Tdap) 07/30/1996 07/29/1996 COVID-19 Vaccine ( season) 2024 03/27/2022, 03/19/2021, 06/13/2020, Additional history exists Colon Cancer Screening 01/18/2025 Colonoscopy 01/18/2025 01/18/2015 (Prev iously completed) Breast Cancer Screening 08/24/2025 08/25/19 24, 06/20/2022, 04/24/2021, Additional history exists Zoster Completed 02/14/2020, 03/16/2019 Pneumococcal Vaccine 65+ Completed 02/28/2022, 06/27 Bone Density Screening Completed , 06/20/2022, 04/19/2019, Additional history exists Influenza Vaccine Completed 03/11/2024, , 01/25/2021 Hepatitis B Vaccine Aged Out No longe r eligible based on patient's age to complete this topic Goals Goal Patient Goal Type Associated Problems Recent Progress Patient-Stated? Author Breast [facility] On track( 021 9:11 AM EDT) Maisha Anderson, RN Note: Patient will be compliant with monthly Self Breast Exams and is aware of to who to contact for any unusual or concerning findings. Breast [facility] No Alexia Kim RN Note: Patient will be compliant with monthly Self Breast Exams and is aware of to who to contact for any unusual or concerning findings. Medical Devices Implanted Type Area Counter Waitress/Waiter Device Identifier Shelf Expiration Date Model / Serial / Lot Right Hip Replacement Right Knee Replacement Wire Kanchan .045 X 6 Style-1 Sterile - [id number] Implanted:Qty: 1 on 10/05/2010 at [facility] Left: Tongue SIVAN:SIVAN 02/24/2020 [id number] 0 / / [id number] Wire Knachan .045 X 6 Style-1 Sterile - [id number] Implanted:Qty: 1 on 10/05/2010 at [facility] Left: Toe SIVAN:SIVAN 03/26/2020 [id number] 0 / / [id number] Net Coordinator Tissue Breast Cpx4 Low Height Style 8100 550cc - [id number] Implanted:Qty: 1 on 06/02/2015 by Dany Crouch MD at [facility] Left: Breast MENTOR:KALEIGH FLEMING PRDT [id number] 09/22/2018 [id number] / [id number] / [id number] Implant Breast Memory Shape Moderate Med Height 530cc - [id number] Implanted:Qty: 1 on 11/16/2015 by Flaco Damon MD at [facility] Left: Breast MENTOR:KALEIGH FLEMING PRDT 02/23/2018 [id number] / [id number] / [id number] Femur Persona Ps Porous Standard Size 5 Left - [id number] Implanted:Qty: 1 on 09/29/2018 by Brian Newman MD at [facility] Left: Knee SIVAN:SIVAN 07/30/2028 [id number] 1 / / [id number] Component Tibia Cemented Stemmed Persona 5 Degree Lft Sz E - [id number] Implanted:Qty: 1 on 09/29/2018 by Brian Newman MD at [facility] Left: Knee SIVAN:SIVAN 06/01/2028 [id number] / / [id number] Surface Articular Ps Fixed Persona Left 10mm (Fem 3-5tibef) - [id number] Implanted:Qty: 1 on 09/29/2018 by Brian Newman MD at [facility] Left: Knee SIVAN:SIVAN 04/01/2023 [id number] 0 / / [id number] Cement Bn Refobacin St Latex Free Disposable - [id number] Implanted:Qty: 1 on 09/29/2018 by Brian Newman MD at [facility] Left: Knee SIVAN:SIVAN 06/01/2020 [id number] / / [id number] Patella All Poly Cemented Persona 32mm 8.5mm Thickness - [id number] Implanted:Qty: 1 on 09/29/2018 by Brian Newman MD at [facility] Left: Knee SIVAN:SIVAN 06/01/2026 [id number] 2 / / [id number] Extension Stem Persona Tapered Cemented 14mm +30 - [id number] Implanted:Qty: 1 on 09/29/2018 by Brian Newman MD at [facility] Left: Knee SIVAN:SIVAN 07/30/2028 [id number] Pin Drill 1.4q489vg Tip Trim-It F/Shldr Impl Dlv Sys - [id number] Implanted:Qty: 1 on 03/22/2024 by Nikolas Jha DPM at [facility] Left: Foot ARTHREX 05/25/2025 [id number] / / [id number] Screw 3.0mm X 14mm Kreulock Titanium - [id number] Implanted:Qty: 2 on 03/22/2024 by Nikolas Jha DPM at [facility] Left: Foot ARTHREX [id number] / / Screw 3.0mm X 18mm Kreulock Titanium - [id number] Implanted:Qty: 1 on 03/22/2024 by Nikolas Jha DPM at [facility] Left: Foot ARTHREX [id number] / / Screw 3.0mm X 16mm Kreulock Titanium - [id number] Implanted:Qty: 2 on 03/22/2024 by Nikolas Jha DPM at [facility] Left: Foot ARTHREX [id number] / / Screw Lp 3.0mm X16mm Cortical Mtp Ti - [id number] Implanted:Qty: 1 on 03/22/2024 by Nikolas Jha DPM at [facility] Left: Foot ARTHREX AR-9933-16 / / Plate Maxforce Mtp 0-0 Petite Left - [id number] Implanted:Qty: 1 on 03/22/2024 by Nikolas Jha DPM at [facility] Left: Foot ARTHREX [id number] / / Procedures Procedure Name Priority Date/Time Associated Diagnosis Comments XR FOOT LEFT AP LATERAL AND OBLIQUE STANDING Routine 04/19/2024 1:54 PM EST 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 of left foot XR FOOT LEFT AP LATERAL AND OBLIQUE STANDING Routine 03/25/2024 4:49 PM EDT 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 of left foot Hammer toe of left foot INTRAOP AIRWAY PLACEMENT Routine 03/22/2024 10:30 AM EDT RI REPAIR OF HAMMERTOE,ONE 03/22/2024 10:24 AM EDT Hallux valgus with bunions of left foot Bunionette of left foot Hammer toe of left foot Special Needs Arthrex (rep notified-AD)sk RI OSTEOTOMY METATARSAL (NOT 1ST) 03/22/2024 10:24 AM EDT Hallux valgus with bunions of left foot Bunionette of left foot Hammer toe of left foot Special Needs Arthrex (rep notified-AD)sk RI FUSION BIG TOE,MT-P JT 03/22/2024 10:24 AM EDT Hallux valgus with bunions of left foot Bunionette of left foot Hammer toe of left foot Special Needs Arthrex (rep notified-AD)sk FL SURGICAL C-ARM PROCEDURE ANABEL 03/22/2024 10:03 AM EDT MM MAMMO DIGITAL VANNESA SCREEN RIGHT Routine 08/25/2023 1:12 PM EDT Encounter for screening mammogram for malignant neoplasm of breast DX BONE DENSITY AXIAL SKELETON Routine 06/20/2022 12:58 PM EST History of breast cancer 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 Anatomical Region Laterality Modality Foot Radiographic Lindsey ging Narrative 04/19/2024 9:17 PM EST Stable postop, good alignment correction, no apparent complications. ?? Fixation in place. us Nikolas Jha DPM IMG DIAGNOSTIC IMAGING ORDE RABCHRISTINE Final Result * INTRAOP AIRWAY PLACEMENT (03/22/2024 10:30 AM EDT) Narrative [facility] - 03/22/2024 10:30 AM EDT Tigist Agarwal CRNA ? 03/22/2024 10:38 AM Intraop Airway Placement: Date/Time: 03/22/2024 10:30 AM ??Airway type: ??Nasal cannula salter us [address] MD RI ANESTHESIA Final Result [facility] [address] [place] [address] * FL SURGICAL C-ARM PROCEDURE (03/22/2024 10:03 AM EDT) Narrative Claudia Pizano - 03/22/2024 10:03 AM EDT The mini C-arm machine was used by surgeon during the surgical procedure. The study image(s) are for reference only and will not be interpreted by a Radiologist. Refer to the Surgical procedure note for image description and procedure details. us Nikolas Jha DPM IMG FLUOROSCOPY ORDERABLES Final Result * MM MAMMO DIGITAL VANNESA SCREEN RIGHT (08/25/2023 1:12 PM EDT) Anatomical Region Laterality Modality Breast Right Mammography 08/25/2023 2:36 PM EDT Impressions 08/25/2023 2:36 PM EDT Negative ??([id number]-Ooteorqm-5) ~ RECOMMENDATION: Routine screening mammogram in 1 year. ~ DISCLAIMER * Any patient with a palpable abnormality, unexplained by breast imaging, should be managed on clinical basis by the attending physician. * Breast imaging has a false negative rate of 15%. * The patient was notified by mail of the results of this examination. *The patient's information was entered into a reminder system with a target due date for the next mammogram, in accordance with the [employer] [place] [employer] and the Society of Breast Imaging recommendations. Narrative 08/25/2023 2:36 PM EDT Procedure:MM MAMMO DIGITAL VANNESA SCREEN RIGHT ~ Reason for exam: history of breast cancer, conservation therapy. Z12.31-Encounter for screening mammogram for malignant neoplasm of [id number] ~ MM MAMMO DIGITAL VANNESA SCREEN RIGHT CC and MLO view(s) were taken of the right breast. There are scattered fibroglandular densities. Prior study comparison: Compared with prior studies the most recent being 06/20/22, 04/24/21 Status post LEFT mastectomy. Status post reduction mammoplasty RIGHT breast. No new mass, distortion, or suspicious calcification. ~ Procedure Note Blanco Walsh MD - 08/25/2023 Procedure:MM MAMMO DIGITAL VANNESA SCREEN RIGHT ~ Reason for exam: history of breast cancer, conservation therapy. Z12.31-Encounter for screening mammogram for malignant neoplasm of [id number]-[id number]-CM ~ MM MAMMO DIGITAL VANNESA SCREEN RIGHT CC and MLO view(s) were taken of the right breast. There are scattered fibroglandular densities. Prior study comparison: Compared with prior studies the most recentbeing 06/20/22, 04/24/21 Status post LEFT mastectomy. Status post reduction mammoplasty RIGHT breast. No new mass, distortion, or suspicious calcification. ~ IMPRESSION: Negative ([id number]-[id number]) ~ RECOMMENDATION: Routine screening mammogram in 1 year. ~ DISCLAIMER * Any patient with a palpable abnormality, unexplained by breast imaging, should be managed on clinical basis by the attending physician. * Breast imaging has a false negative rate of 15%. * The patient was notified by mail of the results of this examination. *The patient's information was entered into a reminder system with atarget due date for the next mammogram, in accordance with the [employer] [place] [employer] and the Society of Breast Imaging recommendations. [facility] Bassem Barragan [facility] MAMMOGRAPHY ORDERABLES Iliana l Result * DX BONE DENSITY AXIAL SKELETON (06/20/2022 12:58 PM EST) Anatomical Region Laterality Modality Dexa Scan 06/20/2022 Narrative 06/20/2022 4:08 PM EST Indication: The patient is a female age 65 or older who requires a bone density assessment. Study was performed on [employer]. Bone Density: Region ?BMD ? T-score ? Z- score ?? Femoral Neck (Left) ? 0.780 ?-0.6 ? 1.2 ? Total Hip (Left) ?0.941 ? 0.0 ? 1.6 ? 1/3 Radius (Left) ? 0.589 ?-1.7 ? 0.4 ? World Health Organization criteria for BMD interpretation classify patients as: Normal (T-score at or above -1.0), Low Bone Density (T-score between -1.0 and -2.5), or Osteoporotic (T-score at or below -2.5). T Scores are reported in Postmenopausal women and in men age 50 and older. Z-scores are reported in females prior to menopause and in males younger than age 50. 10-year Fracture Risk: FRAX not reported because: ??All T-scores for Spine Total, Hip Total, Femoral Neck at or above -1.0 Previous Exams: Region ? Date ?Age ?BMD ??T-score ?BMD Change Total Hip(Left) ? 06/20/2022 ?72 ?0.941 ? 0.0 ?-0.5% ? 04/19/2019 ?68 ?0.947 ? 0.0 ?-1.4% ? 05/17/2016 ?66 ?0.960 ? 0.1 ? 1/3 Forearm(Left) ? 06/20/2022 ?72 ?0.589 ?-1.7 ?-0.7% ? 04/19/2019 ?68 ?0.593 ?-1.7 ?-9.1%* ? 05/17/2016 ?66 ?0.653 ?-0.7 ? *Denotes significance at 95% confidence level, LSC for AP Spine = 0.032g/cm2, LSC for Total Hip = 0.024 g/cm2, LSC for Distal 1/3 Radius = 0.026 g/cm2, site specific LSC for Total Hip = 0.022 g/cm2 ? BMD is shown in g/cm2 and BMD Change indicates change vs previous BMD Clinical Information Provided by Patient: Has used or is currently using the following medications: Aromatase Inhibitors, Vitamin D Has had or currently has the following medical conditions: Breast Cancer, Back pain Patient maximum height was 66 Menopause Age: 51 Patient is postmenopausal Interpretation: Bone mineral density is in the low bone density range. A minimum of two years may be required between bone density studies due to inherent testing precision limitations. Intervals between BMD testing should be determined according to each patient's clinical status: typically one year after initiation or change of therapy is appropriate, with longer intervals once therapeutic effect is established. The left hip bone mineral density is not significantly changed since last exam. Although not approved for monitoring therapy the forearm bone mineral density is not significantly changed since the last exam. Reported by: Alexia Verdin PA-C, MMS, CCD on 06/20/2022 1:56:00 PM. us Dany Crouch MD IMG DEXA ORDERABLES Final R esult from Last 3 Months or Most Recently Relevant to Health Maintenance Insurance MEDICARE [place] A [place] B [employer] [facility] MEDICARE [place] [id number] MEDICARE [place] SPP[place] [id number] Advance Directives For more information, please contact: [phone] * Full Code (Latest Code Status on File) Date Activated Date Inactivated Comments 09/29/2018 11:55 AM 10/02/2018 4:47 PM * Full Code Date Activated Date Inactivated Comments 06/02/2015 5:38 PM 06/03/2015 6:37 PM Care Teams Exploration Geologist Relationship Specialty Start Date End Date Carlos Manuel Barragan [address] [place] [address] [address] [facility] [place] [address] PCP - General 07/03/10
--- OUTSIDE RECORDS SUMMARY | 2024-05-04 22:50 | XMS_ITS | Encounter Summary ---
Author Organization [place] [address] Care Team Providers Care Cad Developer Name Role Phone Carlos Manuel Barragan Primary Care Provider [phone] Reason for Visit * Auth/Cert/Inpt Specialty Diagnoses / Procedures Referred By Heather t Referred To Contact Diagnoses Hallux valgus with bunions of left foot Bunionette of left foot Hammer toe of left foot Hallux valgus with bunions of left foot [M20.12, M21.612] Bunionette of left foot [M21.622] Hammer toe of left foot [M20.42] Procedures NE FUSION BIG TOE,MT-P JT NE OSTEOTOMY METATARSAL (NOT 1ST) NE REPAIR OF HAMMERTOE,ONE first metatarsophalangeal joint fusion left foot.fifth metatarsal osteotomy left foot.left fourth and fifth hammertoe repair. Referral ID Status Reason Start Date Expiration Date Visits Re quested Visits Authorized [id number] 1 1 Encounter Details Date Type Department Care Team (Late st Contact Info) Description 03/22/2024 10:03 AM EDT - 03/22/2024 12:16 PM EDT Surgery [facility] [address] [place] [id number] Nikolas Jha, SURENDRA [address] [address] TOE FUSION FIRST METATARSAL Surgery Details Date/Time Status Location OR Service Patient Class Case Class Case Type Trauma Case? 03/22/2024 10:03 AM Posted [facility] [place] [address] Podiatry Same Day Surgery Elective Panel 1 Procedure LRB Anes Op Region Wound Class Comments TOE FUSION FIRST METATARSAL Left Monitored Anesthesia Care Foot/Ankle Clean first metatarsophalangeal joint fusion left foot.fifth metatarsal osteotomy left foot.left fourth and fifth hammertoe repair. METATARSAL/TOE OSTEOTOMY (TOES 2-5) Left Monitored Anesthesia Care Foot/Ankle Clean HAMMER TOE REPAIR Left Monitored Anesthesia Care Foot/Ankle Clean Surgeon Surgeon Role Service Panel Nikolas Jha DPM Primary Podiatry 1 Special Needs Arthrex (rep notified-AD)sk documented in this encounter Social History Tobacco [...] Sign Reading Time Taken Comments Blood Pressure 143/74 03/22/2024 9:19 AM EDT Pulse 73 03/22/2024 9:19 AM EDT Temperature 36.2 ??C (97.2 ??F) 03/22/2024 9:12 AM ED T Respiratory Rate 16 03/22/2024 9:19 AM EDT Oxygen Saturation 97% 03/22/2024 9:19 AM EDT Inhaled Oxygen Concentration - - Weight 87.5 kg (193 lb) 03/22/2024 9:12 AM EDT Height 167.6 cm (5' 6 ) 03/22/2024 9:12 AM EDT Body Mass Index 31.15 03/22/2024 9:12 AM EDT documented in this encounter Functional Status * Is the person deaf or does he/she have serious difficulty hearing? Answer Date of Assessment Author No 06/03/2015 1:49 PM Mitzi Jimenez APRN * Is the person blind or does he/she have serious difficulty seeing even when wearing glasses? Answer Date of Assessment Author No 06/03/2015 1:49 PM Mitzi Jimenezsa Neil APRN * Does this person have serious difficulty walking or climbing stairs? Answer Date of Assessment Author No 06/03/2015 1:49 PM Mitzi Jimenezsa Neil APRN * Does this person have difficulty dressing or bathing? Answer Date of Assessment Author No 06/03/2015 1:49 PM Mitzi Jimenezsa Neil APRN * Because of a physical, mental or emotional condition, does this person have difficulty doing errands alone such as visiting a doctor's office or shopping? Answer Date of Assessment Author No 06/03/2015 1:49 PM Mitzi Jimenezsa Neil APRN documented as of this encounter Mental Status * Because of a physical, mental or emotional condition, does this person have serious difficulty concentrating, remembering or making decisions? Answer Entry Date Author No 06/03/2015 1:49 PM Mitzi Jimenez stephon Trejo APRN documented in this encounter Discharge Instructions * Discharge Instructions* Nikolas Jha, DPM - 03/22/2024 9:14 AM EDT Images from the original note were not included. [facility] Discharge Instructions for Krystian Barnard, and Abhijeet You have just had a surgical procedure performed. The amount of discomfort will vary from one patient to another. The following instructions are for your benefit to help minimize swelling and pain and ensure fast, uncomplicated healing. Go directly home. Keep your foot (feet) elevated on the way home. Place as little weight as possible on your foot (feet). Do not sit with your feet down or crossed for any length of time. This causesthe feet to swell and become painful. A limited amount of swelling is to be expected. The skin may take on a bruised appearance. This is no cause for alarm. Ice and elevation are important in preventing excessive swelling and pain. Elevate your foot (feet) with two pillows with the knee slightly bent. Place the pillows so that they support the back and knee. Place an ice pack directly over the bandages at the ankle level and leave inplace for 30 minutes out of every hour. Follow ice and elevation instructions strickly for the first 72 hours. Ice packs do not have to be used at night, however keep foot (feet) elevated. Keep your bandages clean, dry, and in place at all times. Do not remove the bandages or inspect thewound. A small amount of blood is normal. If your bandages become saturated with blood, call immediately. Use surgical shoe(s) or boot(s) at all times whenever walking. Showers are not allowed. A sponge bath is most acceptable. You may take a bath provided you cover the bandages with two plastic bags (as instructed) and hang foot (feet) outside the tub while bathing. Exercise your legs frequently by bending your knees and ankles to stimulate circulation and speed healing. Do not sit with your foot (feet) down for more than 10 minutes, do not cross legs, and do not machine sander one place for any length of time. You are allowed bathroom and meal privileges only for the first 72 hours. Otherwise, remain quiet and off your feet. Take your medicine(s) as directed. If they cause a stomach upset, headache, rash, or other abnormalreactions, discontinue their use and call immediately. Get plenty of rest, drink plenty of fluids-eat your regular well-balanced diet, and curtail alcoholic beverages and smoking. Call Immediately if: the bandages become tight, your toes become numb and/or start to tingle and/orturn blue, the bandages become saturated with blood, the bandages become wet, your medication does not stop the discomfort, if you should you bump or injure your foot (feet), or if you develop a fever. Call the office at [phone] with questions or concerns. Other instruction: Touch down weight bearing with walker for transfer and bathroom privileges. +++++++++++++++++++++++++++++++++++++++++++++++++++++++++++++++++++ [facility] Discharge Instructions - Following Anesthesia We appreciate the opportunity to care for you today! Here are a few reminders as you head home: A responsible adult, 18 years or older must be in attendance until tomorrow morning. Rest quietly today. May resume usual diet as tolerated or as directed by your surgeon. Do not drive or operate any machinery until tomorrow morning or as instructed. Do not make any legal or important decisions for the next 24 hours. Do not drink alcoholic beverages or take sleeping pills for 24 hours unless otherwise directed. If you have questions or concerns regarding your anesthesia experience, please call our office at . Get Well Soon! [facility] +++++++++++++++++++++++++++++++++++++++++++++++++++++++++++++++++++ documented in this encounter Medications at Time of Discharge aspirin 81 mg tabletIndications: per Ortho instructions - resume when off Eliquis Take 81 mg by mouth daily. Bifidobacterium infantis (ALIGN ORAL) Take by mouth. cetirizine (ZYRTEC) 5 mg Oral Tablet Take by mouth daily. Cholecalciferol, Vitamin D3, 2,000 unit Oral Capsule Take by mouth daily. cyanocobalamin 100 mcg Oral Tablet Take by mouth daily. cyclobenzaprine (FLEXERIL) 5 mg Oral Tablet Take 5 mg by mouth 3 times daily as needed for Muscle spasms. diclofenac-misopro stoL (ARTHROTEC 75) 75-200 mg-mcg Oral Tab,IR & [...] Tablet Take 160 mg by mouth daily. ketorolac (TORADOL) 10 mg Oral Tablet Take 1 Tablet by mouth every 6 hours as needed for Pain for up to 5 days. 20 Tablet 03/22/2024 4 oxyCODONE-acetamin ophen (PERCOCET) 5-325 mg Oral Tablet Take 1-2 Tablets by mouth every 4 hours as needed for Major Surgery/Traum a (G89.18) for up to 7 days. 40 Tablet 03/22/2024 4 promethazine (PHENERGAN) 25 mg Oral Tablet Take 1 Tablet by mouth every 6 hours as needed for up to 10 days. 30 Tablet 03/22/2024 4 documented as of this encounter Ordered Prescriptions Prescription Sig Dispense Quantity Refills Last Filled Start Date End Date promethazine (PHENERGAN) 25 mg Oral Tablet Take 1 Tablet by mouth every 6 hours as needed for up to 10 days. 30 Tablet 03/22/2024 4 ketorolac (TORADOL) 10 mg Oral Tablet Take 1 Tablet by mouth every 6 hours as needed for Pain for up to 5 days. 20 Tablet 03/22/2024 4 oxyCODONE-acetamin ophen (PERCOCET) 5-325 mg Oral Tablet Take 1-2 Tablets by mouth every 4 hours as needed for Major Surgery/Traum a (G89.18) for up to 7 days. 40 Tablet 03/22/2024 4 documented in this encounter Discharge Disposition Disposition Code Departure Means Destination Comment s Home or Self Care Car Home documented in this encounter H&P Notes * Francisco Javier King MD - 03/22/2024 9:17 AM EDT Surgery H&P Chief complaint: Hallux valgus with bunions of left foot [M20.12, M21.612] Bunionette of left foot [M21.622] Hammer toe of left foot [M20.42] HPI: This is a 73 y.o. year old female patient who presents today for surgical treatment of the above problem. Patient seen and examined. History & Physical Past Medical History: Diagnosis Date Anemia when younger only Aortic aneurysm (HCC) stent placed 04/2022 - [facility] Arthritis knees, hips,back BRCA negative Breast cancer [...] not know setting Wears glasses for reading Past Surgical History: Procedure Laterality Date BREAST BIOPSY Left 02/07/2015 x 4 lymph nodes removed BREAST BIOPSY Left 03/03/2015 BREAST RECONSTRUCTION Left 11/16/2015 LEFT BREAST STAGE 2 RECONSTRUCTION WITH IMPLANT RIGHT BREAST REDUCTION FOR SYMMETRY ; Surgeon: Flaco Damon MD; Location: [facility]; Service: Plastics BREAST REDUCTION SURGERY Right 11/16/2015 Surgeon: Flaco Damon MD; Location: [facility]; Service: Plastics BREAST SURGERY Left 06/02/2015 BREAST RECONSTRUCTION 1ST STAGE WITH EXPANDERS ; Surgeon: Flaco Damon MD; Location: [facility]; Service: General CARPAL TUNNEL RELEASE Bilateral 02/12/2018 BILATERAL CARPAL TUNNEL RELEASE ; Surgeon: Francisco Javier Lepe MD; Location: [facility]; Service: Hand CHOLECYSTECTOMY COLONOSCOPY FOOT SURGERY Left 10/05/2010 hammertoes TONSILLECTOMY TOTAL KNEE ARTHROPLASTY Right 2008 TOTAL KNEE ARTHROPLASTY Left 09/29/2018 LEFT TOTAL KNEE ARTHROPLASTY; Surgeon: Brian Newman MD; Location: [facility]; Service: Orthopedics VASCULAR SURGERY 04/26/2022 TVAR VASCULAR SURGERY Right 05/15/2022 right bracial artery cutdown and exploration, kelley thromboectomy WISDOM TOOTH EXTRACTION No current facility-administered medications on file prior to encounter. Current Outpatient Medications on File Prior to Encounter Medication Sig Dispense Refill aspirin 81 mg [...] Tablet Take 160 mg by mouth daily. Allergies Allergen Reactions Morphine Other (See Comments) confusion Penicillins Rash Social History Socioeconomic History Marital status: Spouse [...] file Social Connections: Unknown (03/03/2023) [facility] Family and Community Support Help with Day-to-Day Activities: Not on file Lonely or Isolated: Not on file Intimate Partner Violence: Not At Risk (06/30/2023) [facility] Abuse Screen Feels Unsafe at Home or Work/School: no Feels Threatened by Someone: no Does Anyone Try to Keep You From Having Contact with Others or Doing Things Outside Your Home?: no Physical Signs of Abuse Present: no Housing Stability: Unknown (05/16/2023) [facility] Housing Stability Current Living Arrangements: Not on file Potentially Unsafe Housing Conditions: Not on file Family History Problem Relation Age of Onset Ovarian Cancer Mother 83 Cancer Mother uterus Heart Failure Father Thyroid Disease Father Breast Cancer Sister 52 High Blood Pressure Sister High Blood Pressure Sister Defects Brother Anesth Problems Neg Hx Review of Systems As above and all other systems are negative. Vitals: 03/22/24 0919 BP: 143/74 Pulse: 73 Resp: 16 Temp: SpO2: 97% Physical Exam General: No acute distress. Alert Neuro: alert. oriented Eyes: pupils equal. Extra-ocular muscles intact Mouth: Oral mucosa moist. No perioral lesions Nose: midline. Good air movement Neck: supple. No lymphadenopathy Chest: symmetric excursion with respiration. Respirations unlabored and regular. Lungs clear to ascultation and percussion Heart: Regular rate and rhythm Abdomen: soft, non-tender, non-distended, +bowel sounds Skin: warm, well perfused Extremities: good range of motion. Peripheral Vascular: palpable pulses distally Rectal: deferred Breast: deferred Relevant Labs and Imaging reviewed. Assessment: Hallux valgus with bunions of left foot [M20.12, M21.612] Bunionette of left foot [M21.622] Hammer toe of left foot [M20.42] Plan: Procedure(s) (LRB): TOE FUSION FIRST METATARSAL (Left) METATARSAL/TOE OSTEOTOMY (TOES 2-5) (Left) HAMMER TOE REPAIR (Left) documented in this encounter Procedure Notes * Nikolas Jha DPM - 03/22/2024 1:10 PM EDT DATE OF OPERATION: 03/22/2024 PREOPERATIVE DIAGNOSES: 1. Hallux valgus with bunion deformity, left foot, with metatarsus primus varus. 2. Tailor's bunion, left foot. 3. Hammertoe, left fourth and fifth toes. POSTOPERATIVE DIAGNOSES: 1. Hallux valgus with bunion deformity, left foot, with metatarsus primus varus. 2. Tailor's bunion, left foot. 3. Hammertoe, left fourth and fifth toes. PROCEDURES: 1. 1st metatarsophalangeal joint fusion, left foot. 2. 5th metatarsal osteotomy, left foot. 3. Hammertoe repair, left 4th and 5th toes. 4. Short leg splint, left. SURGEON: Nikolas Jha DPM. ROBOTICS ENGINEER: None. ANESTHESIA: Local with IV sedation. HEMOSTASIS: Ankle tourniquet. ESTIMATED BLOOD LOSS: 1 mL. PROCEDURE DETAILS: In the preoperative holding area, the patient was given IV antibiotics. Surgery sites were identified and marked. The patient was then taken to the operating room. Following IV sedation, local anesthesia was obtained utilizing a 1:1 mixture of 0.5% Marcaine plain and 1% lidocaineplain. The left foot was then scrubbed, prepped, and draped in the usual sterile manner. After the final timeout, the left foot was exsanguinated, tourniquet inflated. I made an 8 to 10 cm incision through the dorsal medial 1st MP joint. The incision was deepened through subcutaneous tissue, with hemostasis acquired via electrocautery. Tissue plane dissection was carried down to the capsule of the 1st MP joint. Capsular incision was made. Subperiosteal dissection was carried out. I resected themedial prominence of the first metatarsal head. I then took down the remaining articular cartilage to good bleeding subchondral cancellous bone. Irrigation was carried out. I fenestrated the surfaces. I reduced the IM angle, and then temporary fixation was obtained under fluoroscopic guidance with a guide pin. Permanent fixation was accomplished with an Arthrex first MP joint compression plate. Good compressive fixation was obtained, again, and planted under fluoroscopic guidance. Irrigation was carried out. I closed the capsule and periosteum with 3-0 Vicryl. I closed subcutaneous tissue with 4-0 Vicryl. I closed the skin with 3-0 Prolene. I then made two converging semi-elliptical skin incisions over the fifth toe, proximal lateral to distal medial of PIP joint to allow for derotational skin plasty. Skin wedge was excised. Tendinous capsular structures at the PIP joint were transected and the head of the proximal phalanx exposed andresected. Hemostasis was accomplished via electrocautery. Irrigation was carried out. I then performed a transverse stab incision over the fourth MP joint, releasing the dorsal contracture of the fourth MP joint and EDL tendon. I then made a 2 cm incision over the fourth toe centered at the PIP joint in the usual fashion. Hemostasis was accomplished via electrocautery, and dissection was carried down to tendinous capsular structures at the PIP joint. These were transected and reflected distallyand proximally. I resected the articular surfaces, and then fixated the PIP joint with a 1.5 mm Arthrex Trim pin. Good stable fixation was obtained. Irrigation was carried out. I then extended the fifth MP joint incision proximally to allow for the bunionette procedure. All vital structures were identified and retracted. Hemostasis was accomplished via electrocautery. Capsular incision was made. Subperiosteal dissection was carried out. I then performed a distal Keila-type osteotomy, maintaining the plantar lateral cortical hinge. The head of the fifth metatarsal was rotated medially, and then fixation was accomplished with Arthrex Snap-Off screws. I remodeled the fifth metatarsal head. Irrigation was carried out. I closed capsule and periosteum with 4-0 Vicryl. I closed subcutaneous tissue with 4-0 Vicryl. I closed tendinous capsular structures at the PIP joint with 4-0 Vicryl. I closed subcutaneous tissue over the toes with 4-0 Vicryl. I closed the skin with Prolene. Bulky bandage was applied, tourniquet deflated, and prompt cap refill noted. This was followed by application of a short leg splint. The patient tolerated anesthesia and procedures well. Reviewed in full by naomi/LORENA, 03/24/2024 Deysi CraftP.M. By: Jason Job ID: [id number] Doc ID: [id number] * Nikolas Jha DPM - 03/22/2024 11:[address] [facility] OPERATIVE/PROCEDURE NOTE Juany Alarcon March 22, 2024 Body mass index is 31.15 kg/m??. PRE-OP DIAGNOSIS: Hallux valgus with bunions of left foot [M20.12, M21.612] Bunionette of left foot [M21.622] Hammer toe of left foot [M20.42] POST-OP DIAGNOSIS: Hallux valgus with bunions of left foot [M20.12, M21.612]Bunionette of left foot[M21.622]Hammer toe of left foot [M20.42] PROCEDURE(S): Procedure(s): first metatarsophalangeal joint fusion left foot.fifth metatarsal osteotomy left foot.left fourth and fifth hammertoe repair. SURGEON(S): Surgeons and Role: * Nikolas Jha DPM - Primary ROBOTICS ENGINEER(S): ANESTHESIA: Monitored Anesthesia Care SPECIMENS: * No specimens in log * ESTIMATED BLOOD LOSS (mls): 1ml *EBL MUST be documented as a numeric value FINDINGS: OTHER INFO: DISPOSITION/POST PROC COURSE: phase 2 Nikolas Jha DPM Date: 03/22/2024 documented in this encounter Nursing Notes * Khushi Lou RN - 03/16/2024 9:11 AM EDT Images from the original note were not included. PREPARING FOR YOUR SURGERY Date of Surgery: 03/22/24 Time of Surgery: Your surgeon???s office will notify you of your scheduled arrival time. Medications on the Day of Surgery Take the following medications on the morning of surgery: metoprolol, reglan Medications to hold prior to surgery; Verify with your doctor for possibly discontinuing the following medications: blood thinners, aspirin, anti-inflammatories, or supplements. Do not take any RAYNA inhibitors (ends in PRIL ) or angiotensin receptor blockers (ends in SARTAN )on the day of surgery Food, Drinks, Tobacco Do not eat any food after midnight. This includes gum, mints, candy, chewing tobacco, and dip. Unless otherwise instructed by your surgeon, you may consume water, Gatorade, Powerade, black coffee/tea(no milk, no cream/creamers, no sugar) up to two hours prior to your scheduled arrival time. No exceptions or substitutions to these restrictions. Do not smoke, vape, or use any type of tobacco or marijuana products within 24 hours prior to surgery. Smoking will also slow your rate of healing. It is advised that you do not smoke during the healing process. No alcohol 24 hours prior to surgery. Assistant Technician It is important to have a Assistant Technician, someone who is 18 years or older, to accompany you and remain in the facility for the duration of your surgery. This person should be available for the Perioperative Team, which includes your surgeon, to communicate with before, during and after your surgery. Because you are receiving anesthesia, someone is needed to drive you home and remain with you for at least 24 hours after surgery to make sure you are safe during that time We also recommend that no children be present on the day of surgery. If you have a concern, please reach out to our department [phone]. Hygiene [place] your teeth and gargle the morning of surgery. Shower the morning of surgery or the night before. Do not wear makeup (including eye makeup) lotion, powder, deodorant, perfume, or cologne. Do not shave the operative extremity or near the operative area. Remove nail kosovan prior to surgery. This includes artificial nails and gel nail kosovan. Personal Items Wear clean, simple, loose-fitting clothing (no jeans) and sturdy shoes (no flip flops, slides or crocs) to the hospital. Do not bring unnecessary valuables with you. It is policy that [facility] does not assume responsibility for lost, stolen or broken personal items that are brought in. Exceptions may be consideredfor items which are considered necessary for your healthcare. These items will be formally documented. Remove all jewelry prior to surgery to prevent injury. We will not tape wedding rings/bands Remove all body piercings prior to arrival. Plastic inserts are acceptable. If you have dentures, they may need to be removed before going into the operating room. We will have a case for them. Glasses and contacts will need to be removed prior to surgery. Please bring a case for them.. If you have hearing aids, please wear them to the hospital and bring a case. Bring with You Bring a copy of your Living Will and/or Durable Power of Property Supervisor for Healthcare. Notify the Surgeon Notify your surgeon if you develop any illness (fever, cold, cough, sore throat, nausea, vomiting, skin rashes etc.) between now and surgery time Notify your surgeon and Pre-admission testing ([phone]) if you have any changes in your healthconditions or if any new medications are ordered between now and surgery.. Questions or Concerns? If you have any questions or concerns, feel free to call the Pre-Admission testing department at [phone]. We want to make sure you feel safe and have an excellent experience while you are here. Do not reply to this message through [employer] as it may not be answered promptly. [facility] [place] at [phone] - [phone] [facility], [place], [facility]. DOORS OPEN AT 6:30 AM ANESTHESIA - COMMON SIDE EFFECTS (if present, these should resolve within 24 hours) TIREDNESS SHIVERING DIZZINESS DRY MOUTH MILD NAUSEA/VOMITING SORE THROAT OR HOARSENESS MILD PAIN OR DISCOMFORT IS NORMAL CALL THE SURGEON DAY OR NIGHT You have nausea or vomiting that doesn???t go away by the next morning. You experience severe pain not relieved by suggested medications. Thank you for letting us care for you. Surgical Site Infections FAQs What is a Surgical Site Infection (SSI)? A surgical site infection is an infection that occurs after surgery in the part of the body where the surgery took place. Most patients who have surgery do not develop an infection. However, infections develop in about 1 to 3 out of every 100 patients who have surgery. Some of the common symptoms of a surgical site infection are: Redness and pain around the area where you had surgery Drainage of cloudy fluid from your surgical wound. Fever Can SSIs be treated? Yes. Most surgical site infections can be treated with antibiotics. The antibiotic given to you depends on the bacteria (germs) causing the infection. Sometimes patients with SSIs also need another surgery to treat the infection. What are some of the things that hospitals are doing to prevent SSIs? To prevent SSIs, doctors, nurses, and other healthcare providers: Clean their hands and arms up to their elbows with an antiseptic agent just before the surgery. Clean their hands with soap and water or an alcohol-based hand rub before and after caring for eachpatient. May remove some of your hair immediately before your surgery using electric clippers if the hair isin the same area where the procedure will occur. They should not shave you with a razor. Wear special hair covers, masks, gowns, and gloves during surgery to keep the surgery area clean. Give you antibiotics before your surgery starts. In most cases, you should get antibiotics within 60 minutes before the surgery starts and the antibiotics should be stopped within 24 hours after surgery. Clean the skin at the site of your surgery with a special soap that kills germs. What can I do to help prevent SSIs? Before your surgery: Tell your doctor about other medical problems you may have. Health problems such as allergies, diabetes, and obesity could affect your surgery and your treatment. Quit smoking. Patients who smoke get more infections. Talk to your doctor about how you can quit before your surgery. Do not shave near where you will have surgery. Shaving with a razor can irritate your skin and makeit easier to develop an infection. At the time of your surgery: Speak up if someone tries to shave you with a razor before surgery. Ask why you need to be shaved and talk with your surgeon if you have any concerns. Ask if you will get antibiotics before surgery. After your surgery: Make sure that your healthcare providers clean their hands before examining you, either with soap and water or an alcohol-based hand rub. If you do not see your providers clean their hands, please ask them to do so. Family and friends who visit you should not touch the surgical wound or dressings. Family and friends should clean their hands with soap and water or an alcohol- based hand rub beforeand after visiting you. If you do not see them clean their hands, ask them to clean their hands. What do I need to do when I go home from the hospital? Before you go home, your doctor or nurse should explain everything you need to know about taking care of your wound. Make sure you understand how to care for your wound before you leave the hospital. Always clean your hands before and after caring for your wound. Before you go home, make sure you know who to contact if you have questions or problems after you get home. If you have any symptoms of an infection, such as redness and pain at the surgery site, drainage, or fever, call your doctor immediately. If you have additional questions, please ask your doctor or nurse. Developed and co-sponsored by The Society for Healthcare Epidemiology of [place] (HARRIS); InfectiousDiseases Society of [place] (IDSA); [facility]; Association for Professionals inInfection Control and Epidemiology (APIC); Centers for Disease Control and Prevention (CDC); and The Joint Commission. This information is not intended to replace advice given to you by your health care provider. Make sure you discuss any questions you have with your health care provider. documented in this encounter Miscellaneous Notes * Informed Consent Note - Nikolas Jha DPM - 03/21/2024 5:[address] [facility] INFORMED CONSENT NOTE Patient: Juany Alarcon Date: March 21, 2024 PROCEDURE(S): first metatarsophalangeal joint fusion left foot.fifth metatarsal osteotomy left foot.left fourth and fifth hammertoe repair. I attest that the patient/patient customer account representative has been counseled as to the potential benefits, risks, and side effects to the planned surgical treatment, including the likelihood of success and potential problems that might occur during recuperation. The patient/patient customer account representative has also been counseled as to the alternatives to this intervention, including possible results of not having this intervention performed and benefits and risks of these alternatives. If a non-autologous graft is planned, I have additionally discussed the risks, benefits, and alternatives to the use of such grafts. I have assessed the patient???s capacity for making healthcare decisions, determined that they could provide their own consent, and obtained the patient???s consent. Or, if I determined that they could not provide their own consent, I have obtained the patient???s consent from their legal decision maker. The patient/patient customer account representative has given their consent to proceed with this intervention after having their questions sufficiently answered. [employer] used: no Nikolas Jha DPM Date: 03/21/2024 documented in this encounter Plan of Treatment Upcoming Encounters Date Type Department Care Team (Late st Contact Info) Description 05/24/2024 10:30 AM EST Office Visit [facility] [address] [phone] Nikolas Jha, DPM [phone] [facility] [address] [place] [address] documented as of this encounter Goals Goal Patient Goal Type Associated Problems Recent Progress Patient-Stated? Author Breast [facility] Breast Health On track( 021 9:11 AM EDT) Maisha Anderson, RN Note: Patient will be compliant with monthly Self Breast Exams and is aware of to who to contact for any unusual or concerning findings. Breast [facility] Breast [facility] No Alexia Kim, CRISTOBAL Note: Patient will be compliant with monthly Self Breast Exams and is aware of to who to contact for any unusual or concerning findings. documented as of this encounter Procedures Procedure Name Priority Date/Time Associated Diagnosis Comments NE REPAIR OF HAMMERTOE,ONE 03/22/2024 10:24 AM EDT Hallux valgus with bunions of left foot Bunionette of left foot Hammer toe of left foot Special Needs Arthrex (rep notified-AD)sk NE OSTEOTOMY METATARSAL (NOT 1ST) 03/22/2024 10:24 AM EDT Hallux valgus with bunions of left foot Bunionette of left foot Hammer toe of left foot Special Needs Arthrex (rep notified-AD)sk NE FUSION BIG TOE,MT-P JT 03/22/2024 10:24 AM EDT Hallux valgus with bunions of left foot Bunionette of left foot Hammer toe of left foot Special Needs Arthrex (rep notified-AD)sk FL SURGICAL C-ARM PROCEDURE ANABEL 03/22/2024 10:03 AM EDT documented in this encounter Results * FL SURGICAL C-ARM PROCEDURE (03/22/2024 10:03 AM EDT) Narrative GenericuserClaudia - 03/22/2024 10:03 AM EDT The mini C-arm machine was used by surgeon during the surgical procedure. The study image(s) are for reference only and will not be interpreted by a Radiologist. Refer to the Surgical procedure note for image description and procedure details. Nikolas Jha DPM IMG FLUOROSCOPY ORDERABLES Final Result documented in this encounter Visit Diagnoses Diagnosis Hallux valgus with bunions of left foot Bunionette of left foot Hammer toe of left foot Hallux valgus with bunions of left foot Bunionette of left foot Hammer toe of left foot documented in this encounter Admitting Diagnoses Diagnosis Hallux valgus with bunions of left foot Bunionette of left foot Hammer toe of left foot documented in this encounter Administered Medications Inactive Administered Medications - up to 1 most recent administrations Medication Order MAR Action Action Date Dose Rate Site acetaminophen (TYLENOL) tablet 1,000 mg 1,000 mg, Oral, PREPROCEDURE, 1 dose, Starting on 03/21/24 at 1542, Until Fri03/22/24 at 0924, Coanalgesic, Do not give if patient received acetaminophen within the last 6 hours Maximum adult dose of acetaminophen is 4000 mg from all sources in 24 hours., Pre-op (Holding/SDS Meds) Given 03/22/2024 9:24 AM EDT 1,000 mg famotidine (PEPCID) injection 20 mg 20 mg, Intravenous, ONCE PREPROCEDURE, 1 dose, On 03/21/24 at 1545, Slow IV push (greater than 2 minutes). To be given in SDS/Pre-op Holding Area, Pre-op (Holding/SDS Meds) Given 03/22/2024 9:36 AM EDT 20 mg lactated ringers infusion Intravenous, at 50 mL/hr, PREPROCEDURE CONTINUOUS, Starting on 03/21/24 at 1542, Until Fri03/22/24 at 1038, To be given in SDS/Pre-op Holding Area, Pre-op (Holding/SDS Meds) IV Restarted 03/22/2024 10:25 AM EDT lidocaine 10 mg/mL (1 %) 15 mL, bupivacaine (MARCAINE) 0.5 % (5 mg/mL) 15 mL 30 mL injection 30 mL, PRN, Starting on 03/22/24 at 1038, Until Fri03/22/24 at 1315, Intra-op Given 03/22/2024 10:38 AM EDT 30 mL Left Foot ondansetron (ZOFRAN) injection 4 mg 4 mg, Intravenous, ONCE PRN, 1 dose, Starting on 03/22/24 at 1215, Until 03/22/24 at 1715, Nausea, First Line Antiemetic, Do not give if patient received granisetron (Kytril) or ondansetron (Zofran) within 4 hours., PACU ondansetron (ZOFRAN-ODT) disintegrating tablet 8 mg 8 mg, Oral, ONCE PRN, 1 dose, Starting on 03/22/24 at 1215, Until 03/22/24 at 1715, Nausea, First Line Antiemetic, Do not give if patient received granisetron (Kytril) or ondansetron (Zofran) within 4 hours., PACU scopolamine (TRANSDERM-SCOP) 1 mg over 3 days 1 Patch 1 Patch, Transdermal, ONCE PREPROCEDURE, 1 dose, On 03/21/24 at 1545, Place patch behind ear. Remove in 24 hours. To be given in SDS/Pre-op Holding Area. Transderm-Scop patch delivers scopolamine 1 mg per 72 hours, Administer over 24 Hours, Pre-op (Holding/SDS Meds) Patch Applied 03/22/2024 9:24 AM EDT 1 Patch Left Ear documented in this encounter Discontinued Medications Medication Sig Discontinue Reason Start Date End Da te gabapentin (NEURONTIN) 100 mg Oral Capsule 300 mg. DELETE-Therapy completed 04/19/2019 03/16/2024 bisoprolol-hydrochloroth iazide (ZIAC) 5-6.25 mg per tablet Take 1 Tablet by mouth daily. DELETE-Therapy completed 03/16/2024 apixaban (ELIQUIS) 2.5 mg Oral Tablet Take 1 Tab by mouth 2 times daily for 10 days. DELETE-Therapy completed 10/01/2018 03/16/2024 EVENING PRIMROSE OIL ORAL Take by mouth daily. DELETE-Therapy completed 03/16/2024 calcium polycarbophiL (FIBERCON) 625 mg Oral Tablet Take 625 mg by mouth daily. DELETE-Therapy completed 03/16/2024 anastrozole (ARIMIDEX) 1 mg Oral TabletIndications:Malign ant neoplasm of left female breast (HCC) TAKE 1 TABLET EVERY DAY DELETE-Therapy completed 09/03/2021 03/16/2024 etodolac (LODINE) 500 mg Oral Tablet Take 500 mg by mouth 2 times daily. DELETE-Therapy completed 03/16/2024 HYDROcodone-acetaminophe n (NORCO) 7.5-325 mg Oral Tablet Take 1 Tablet by mouth every 6 hours as needed for Acute Pain (R52). DELETE-Therapy completed 03/16/2024 oxyCODONE (ROXICODONE) 5 mg Oral Tablet Take 1-2 Tabs by mouth every 4-6 hours as needed DELETE-Therapy completed 10/02/2018 03/16/2024 traMADol (ULTRAM) 50 mg Oral Tablet Take 1-2 Tabs by mouth every 6-8 hours as needed DELETE-Therapy completed 09/28/2018 03/16/2024 potassium chloride SA (K-DUR;KLOR-CON) 20 mEq Oral Tab Sust.Rel. Particle/Crystal Take 20 mEq by mouth daily. DELETE-Therapy completed 03/16/2024 oxybutynin (DITROPAN-XL) 5 mg Oral Tablet Extended Rel 24 hr TAKE 1 TABLET BY MOUTH DAILY. DELETE-Therapy completed 03/07/2023 03/16/2024 documented as of this encounter Historical Medications * This list may reflect changes made after this encounter. cetirizine (ZYRTEC) 5 mg Oral Tablet Take by mouth daily. cyclobenzaprine (FLEXERIL) 5 mg Oral Tablet Take 5 mg by mouth 3 times daily as needed for Muscle spasms. diclofenac-misopr ostoL (ARTHROTEC 75) 75-200 mg-mcg Oral Tab,IR & Delay Rel,Multiphasic Take 1 Tablet by mouth 2 times daily. Bifidobacterium infantis (ALIGN ORAL) Take by mouth. metoprolol succinate (TOPROL-XL) 50 mg Oral Tablet Sustained Release 24 hr Take 50 mg by mouth daily. added in this encounter Active and Recently Administered Medications Times are shown in EDT. Scheduled Medication Order 03/20/2024 03/21/2024 03/22/2024 clindamycin in 5 % dextrose (CLEOCIN) IVPB 900 mg (COMPLETED) 900 mg, Intravenous, ONCE, 1 dose, On 03/22/24 at 0915, Administer over 60 Minutes, If true PCN allergy, Reason for Therapy: Surgical Prophylaxis 1029 (Given - Provid er: Tigist Agarwal CRNA) famotidine (PEPCID) injection 20 mg (COMPLETED) 20 mg, Intravenous, ONCE PREPROCEDURE, 1 dose, On 03/21/24 at 1545, Slow IV push (greater than 2 minutes). To be given in SDS/Pre-op Holding Area, Pre-op (Holding/SDS Meds) 0936 (Given - Provid er: Tammy Montoya RN) scopolamine (TRANSDERM-SCOP) 1 mg over 3 days 1 Patch 1 Patch, Transdermal, ONCE PREPROCEDURE, 1 dose, On 03/21/24 at 1545, Place patch behind ear. Remove in 24 hours. To be given in SDS/Pre-op Holding Area. Transderm-Scop patch delivers scopolamine 1 mg per 72 hours, Administer over 24 Hours, Pre-op (Holding/SDS Meds) 0924 (Patch Applied - Provider: Tammy Montoya RN)1310 (Due: Patch Removed - Provider: Automatic Discharge Provider - Comment: Time automatically adjusted from order being discontinued) PRN Medication Order 03/20/2024 03/21/2024 03/22/2024 acetaminophen (TYLENOL) tablet 1,000 mg (COMPLETED) 1,000 mg, Oral, PREPROCEDURE, 1 dose, Starting on 03/21/24 at 1542, Until Fri03/22/24 at 0924, Coanalgesic, Do not give if patient received acetaminophen within the last 6 hours Maximum adult dose of acetaminophen is 4000 mg from all sources in 24 hours., Pre-op (Holding/SDS Meds) 0924 (Given - Provid er: Tammy Montoya RN) fentaNYL (SUBLIMAZE) injection 25 mcg 25 mcg, Intravenous, EVERY 5 MIN PRN, Starting on Fri03/22/24 at 1215, Until Fri03/22/24 at 1715, Pain, For initial pain. Maximum dose not to exceed 100 mcg., PACU lactated ringers infusion (CANCELED) Intravenous, at 50 mL/hr, PREPROCEDURE CONTINUOUS, Starting on 03/21/24 at 1542, Until Fri03/22/24 at 1038, To be given in SDS/Pre-op Holding Area, Pre-op (Holding/SDS Meds) 0935 (New Bag - Prov ider: Tammy Montoya RN)1024 (IV Paused - Provider: Tigist Agarwal CRNA - Comment: Switch to gravity)1025 (IV Restarted - Provider: Tigist Agarwal CRNA)1038 (Due: Stopped - Provider: Tigist Agarwal CRNA)1213 (Anesthesia Volume Adjustment - Provider: Tigist Agarwal CRNA) lidocaine 10 mg/mL (1 %) 15 mL, bupivacaine (MARCAINE) 0.5 % (5 mg/mL) 15 mL 30 mL injection (CANCELED) 30 mL, PRN, Starting on Fri03/22/24 at 1038, Until Fri03/22/24 at 1315, Intra-op 1038 (Given - Provid er: Nikolas Jha DPM) ondansetron (ZOFRAN) injection 4 mg(Linked Group 1) 4 mg, Intravenous, ONCE PRN, 1 dose, Starting on Fri03/22/24 at 1215, Until Fri03/22/24 at 1715, Nausea, First Line Antiemetic, Do not give if patient received granisetron (Kytril) or ondansetron (Zofran) within 4 hours., PACU ondansetron (ZOFRAN-ODT) disintegrating tablet 8 mg(Linked Group 1) 8 mg, Oral, ONCE PRN, 1 dose, Starting on Fri03/22/24 at 1215, Until Fri03/22/24 at 1715, Nausea, First Line Antiemetic, Do not give if patient received granisetron (Kytril) or ondansetron (Zofran) within 4 hours., PACU oxyCODONE (ROXICODONE) immediate release tablet 5 mg 5 mg, Oral, EVERY 1 HOUR PRN, Starting on Fri03/22/24 at 1215, Until Fri03/22/24 at 1715, Pain, When tolerating oral intake. Maximum dose not to exceed 10 mg unless otherwise directed by the Anesthesia Coordinator., PACU Linked Groups Order Group 1: ondansetron (ZOFRAN) injection 4 mgJump to med 4 mg, Intravenous, ONCE PRN, 1 dose, Starting on Fri03/22/24 at 1215, Until Fri03/22/24 at 1715, Nausea, First Line Antiemetic, Do not give if patient received granisetron (Kytril) or ondansetron (Zofran) within 4 hours., PACU Or ondansetron (ZOFRAN-ODT) disintegrating tablet 8 mgJump to med 8 mg, Oral, ONCE PRN, 1 dose, Starting on 03/22/24 at 1215, Until Fri03/22/24 at 1715, Nausea, First Line Antiemetic, Do not give if patient received granisetron (Kytril) or ondansetron (Zofran) within 4 hours., PACU documented in this encounter Orders Medications Ordered That Binu ht Not Have Been Administered Count Last Ordered Date First Ordered Date clindamycin in 5 % dextrose (CLEOCIN) IVPB 900 mg 1 03/22/2024 fentaNYL (SUBLIMAZE) injection 25 mcg 1 ondansetron (ZOFRAN) injection 4 mg 1 03/22 ondansetron (ZOFRAN-ODT) dis integrating tablet 8 mg 1 03/22/2024 oxyCODONE (ROXICODONE) immed iate release tablet 5 mg 1 03/22/2024 Discharge Count Last Ordered Date First Orde red Date DISCHARGE PATIENT 1 03/22/2024 documented in this encounter Additional Health Concerns Assessment Noted Time A fall risk assessment has been complete d for the patient 10/21/2023 2:54 PM EDT documented as of this encounter Care Teams Cad Developer Relationship Specialty Start Date End Date Carlos Manuel Barragan [facility] [address] [place] [id number] PCP - General 07/03/10 documented as of this encounter
--- OUTSIDE RECORDS SUMMARY | 2024-05-04 22:50 | XMS_ITS | Encounter Summary ---
[facility] Address [address] [place] [address] Care Team Providers Care Director Global Intelligence Name Role Phone Rafael Barajas MD Primary Care Provider [phone] Reason for Referral * Diagnostic Imaging (Routine) - Closed Specialty Diagnoses / Procedures Referred By Heather santos Referred To Contact Diagnoses Hypertensive heart disease without heart failure Labile hypertension Obstructive sleep apnea on CPAP Mild obesity Other chest pain Procedures Stress Test With Myocardial Perfusion Santo Salinas MD [address] [place] [id number] Phone: tel: fax: [facility] [address] [place] [address] Phone: tel: Referral ID Status Reason Start Date Expiration Date Visits Re quested Visits Authorized [id number] Closed 05/29/2016 05/29/2017 4 4 Reason for Visit * Reason Comments Palpitations Shortness of Breath Encounter Details Date Type Department Care Team (Late st Contact Info) Description 05/29/2016 10:00 AM EST Office Visit [facility] [address] [place] [address] Santo Salinas MD [address] [place] [address] Hypertensive heart disease without heart failure (Primary Dx); Labile hypertension; Obstructive sleep apnea on CPAP; [...] Sign Reading Time Taken Comments Blood Pressure 128/86 05/29/2016 10:06 AM EST Pulse 76 05/29/2016 10:06 AM EST Temperature - - Respiratory Rate - - Oxygen Saturation - - Inhaled Oxygen Concentration - - Weight 92.4 kg (203 lb 9.6 oz) 05/29/2016 10:05 AM EST Height 167.6 cm (5' 6 ) 05/29/2016 10:05 AM EST Body Mass Index 32.86 05/29/2016 10:05 AM EST documented in this encounter Progress Notes * Santo Salinas MD - 05/29/2016 10:00 AM EST Subjective: Encounter Date:05/29/2016 Patient ID: Juany Alarcon is a 66 y.o. 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 REFERRING PHYSICIAN/DESK CLERKS SUPERVISOR: Bassem Barragan MD CURRENT PHYSICIAN: Rafael Barajas MD JACKAROO: Katarina Tan MD NEUROSURGEON: Adrian Faye MD ORTHOPEDIC SURGEON: Josh Arellano MD ONCOLOGIC SURGEON: Roque Crouch MD SLEEP PHYSICIAN: Fito Mederos MD Chief Complaint: Chief Complaint Patient presents with ??? Palpitations ??? Shortness of Breath Problem List: 1. Possible hypertensive cardiovascular disease: a. Remote progressive chest pain syndrome with exertional bilateral arm pain suggestive of CCS class III angina pectoris with acceptable nuclear GXT, LVEF 0.72, spring 2001, with empiric medical therapy initiated. b. CCS class II/NYHA II-III dyspnea on exertion and fatigue May 2016. 2. Labile hypertension. 3. Migraine headaches. 4. [...] in hands, probable carpal tunnel syndrome. 16. Mild dyslipidemia. 17. Recent apparent acceptable mammography (spring 2014), with subsequent development of inverted left nipple with findings of invasive grade I lobular carcinoma with scattered small foci (December-January 2015), with negative left axillary lymph node biopsy and apparent negative BRAC2 assessment with contemplated left mastectomy (May 2015). ?? Allergies Allergen Reactions ??? Penicillins Rash Current Outpatient Prescriptions: ??? anastrozole (ARIMIDEX) 1 MG tablet, Take by mouth Daily., Disp: , Rfl: ??? aspirin 81 MG EC tablet, Take 81 mg by mouth Daily., Disp: , Rfl: ??? bisoprolol-hydrochlorothiazide (ZIAC) 5-6.25 MG per tablet, TAKE 1 TABLET DAILY, Disp: 90 tablet, Rfl: 1 ??? Diclofenac Potassium (ZIPSOR) 25 MG capsule, Take by mouth., Disp: , Rfl: ??? mometasone (NASONEX) 50 MCG/ACT nasal spray, 2 sprays into each nostril Daily., Disp: , Rfl: ??? montelukast (SINGULAIR) 10 MG tablet, Take 10 mg by mouth Every Night., Disp: , Rfl: ??? potassium chloride (K-DUR,KLOR-CON) 20 MEQ CR tablet, TAKE 1 TABLET DAILY, Disp: 90 tablet, Rfl: 1 ??? VITAMIN D, CHOLECALCIFEROL, PO, Take by mouth., Disp: , Rfl: History of Present Illness Patient presents for scheduled annual followup. Patient states that she has not felt well over the course of the past year. She was diagnosed in May 2015 with breast cancer; she had a left mastectomy without chemotherapy or radiation. She states that she was down for a while with that but expected to feel a lot better at this point being ayear later. She also describes some chest pain associated with shortness of breath and extreme fatigue with no nausea and occasional diaphoresis. She describes the chest pain as tightness in her chest and the shortness of breath as associated because she feels like she can't get a good breath. 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 She has not had any weight gain over the course of the past year but does need a new CPAP machine. Patient otherwise denies PND, edema, palpitations, syncope or presyncope at this time. ROS Obtained and otherwise negative except as outlined in problem list and HPI. Procedures Objective: Vitals: 05/29/16 1005 05/29/16 1006 BP: 146/81 128/86 BP Location: Left arm Left arm Patient Position: Sitting Standing Pulse: 62 76 Weight: 203 lb 9.6 oz (92.4 kg) Height: 66 (167.6 cm) Body mass index is 32.86 kg/(m^2). Last weight: 205 lbs. Physical Exam Constitutional: She appears well-developed and well-nourished. HENT: Head: Normocephalic and atraumatic. Mouth/Throat: Oropharynx is clear and moist. Neck: Neck supple. No JVD present. Carotid bruit is not present. No thyromegaly present. Cardiovascular: Normal rate and regular rhythm. Exam reveals no gallop, no S3 and no friction rub. No murmur heard. Pulses: Dorsalis pedis pulses are 2+ on the right side, and 2+ on the left side. Posterior tibial pulses are 2+ on the right side, and 2+ on the left side. Pulmonary/Chest: Effort normal and breath sounds normal. Abdominal: Soft. She exhibits no mass. There is no hepatosplenomegaly. There is no tenderness. Lymphadenopathy: She has no cervical adenopathy. Neurological: She is alert. She has normal strength. No cranial nerve deficit or sensory deficit. Skin: Skin is warm, dry and intact. Lab Review: 03/22/2016 ?? FLP - total cholesterol 186, triglycerides 90, HDL-C 52, LDL-C 116 ?? CMP - normal electrolytes, creatinine 0.8, BUN 29, glucose 94 with normal serum calcium and liver function tests, serum albumin 4.3 Assessment: Patient with exertional chest pain and dyspnea with fatigue CCS class II/NYHA Class II-III dyspnea and fatigue. We will order a Cardiolite stress test, TSH, d-dimer, sedimentation rate, BNP, and continuous oximetry to assess her symptoms. We advised her to talk to her physician or Dr. Mederos about getting a new CPAP machine. Diagnosis Plan 1. Hypertensive heart disease without heart failure 2. Labile hypertension 3. Obstructive sleep apnea on CPAP 4. Mild obesity Plan: 1. Patient to continue current medications and close follow up with the above providers. 2. Tentative cardiology follow up in 6 months or patient may return sooner PRN. 3. Cardiolite stress test 4. TSH, d dimer, sed rate, BNP 5. Continuous oximetry Scribed for Santo Salinas MD by Keesha Claire, TRUCK SPOTTER. 05/29/2016 12:31 PM ISanto MD, [facility], personally performed the services described in this documentation as scribed by the above named individual in my presence, and it is both accurate and complete. At 3:04 PM on 05/29/2016 documented in this encounter Plan of Treatment Upcoming Encounters Date Type Department Care Team (Late st Contact Info) Description 07/29/2024 10:45 AM EST Office Visit [facility] [address] [facility] [address] [place] [address] Goyo Khan MD [address] [facility] [address] [place] [address] 09/02/2024 11:30 AM EDT Office Visit [facility] [address] [facility] [address] [place] [address] Dee Jaimes, TRUCK SPOTTER [address] [place] [address] documented as of this encounter Results * [...] CV STRESS ORDERABLES Final Res ult * Sedimentation Rate (05/29/2016 11:05 AM EST) Pathologist [facility] Sed Rate 11 0 - 30 mm/hr 05/29/2016 12:04 PM EST [facility] Blood Venipuncture / Unknown 05/29/2016 11:05 AM EST 05/29/2016 11:05 AM EST us Santo Salinas MD LAB BLOOD ORDERABLES Final Res ult Performing Organization Address [facility]/ZIP Co de Phone Number [facility]
[address] [place] [address], * BNP (05/29/2016 11:05 AM EST) [facility] BNP 8.0 0.0 - 100.0 pg/mL 05/29/2016 11:47 AM EST [facility] Blood Venipuncture / Unknown 05/29/2016 11:05 AM EST 05/29/2016 11:05 AM EST us Santo Salinas MD LAB BLOOD ORDERABLES Final Res ult Performing Organization Address City/[facility]/ZIP Co de Phone Number [facility]
[address] [place] [address], * (ABNORMAL) D-dimer, Quantitative (05/29/2016 11:05 AM EST) Pathologist [facility] D-Dimer, Quantitative 0.86(H) 0.00 - 0.50 mg/L (FEU) 05/29/2016 11:45 AM EST [facility] Blood Venipuncture / Unknown 05/29/2016 11:05 AM EST 05/29/2016 11:05 AM EST Narrative [facility] - 05/29/2016 11:45 AM EST Negative predictive value for exclusion of venous thromboembolism: < or = 0.5 mg/L (FEU) us Santo Salinas MD LAB BLOOD ORDERABLES Final Res ult Performing Organization Address [facility] Co de Phone Number [facility]
[address] [place] [address], * TSH (05/29/2016 11:05 AM EST) TSH 1.403 0.350 - 5.350 mIU/mL 05/29/2016 11:49 AM EST [facility] Blood Venipuncture / Unknown 05/29/2016 11:05 AM EST 05/29/2016 11:05 AM EST us Santo Salinas MD LAB BLOOD ORDERABLES Final Res ult Performing Organization Address [facility] de Phone Number [facility]
[address] [place] [address], [place] [phone] documented in this encounter Visit Diagnoses Diagnosis Hypertensive heart disease without heart failure- Primary Unspecified hypertensive heart disease without heart failure Labile hypertension Obstructive sleep apnea on CPAP Mild obesity Other chest pain Hypertensive heart disease without heart failure Unspecified hypertensive heart disease without heart failure Labile hypertension Obstructive sleep apnea on CPAP Mild obesity Other chest pain documented in this encounter Care Teams Director Global Intelligence Relationship Specialty Start Date End Date Rafael Barajas MD [address] [place] [address] [address] [facility] [address] [place] [address] PCP - General 04/12/15 03/19/22 documented as of this encounter
--- OUTSIDE RECORDS SUMMARY | 2024-05-04 22:50 | XMS_ITS | Encounter Summary ---
Author Organization [facility] [place] [address] Care Team Providers Care Die Out Worker Name Role Phone Carlos Manuel Barragan Primary Care Provider [phone] Encounter Details Date Type Department Care Team (Latest Contact Info) Description 03/16/2024 Travel Social History Tobacco Use Types Packs/Day Years [...] of Assessment Author No 06/03/2015 1:49 PM TRISTIAN Kelleyson Mitzi stephon Trejo APRN * Because of a physical, mental or emotional condition, does this person have difficulty doing errands alone such as visiting a doctor's office or shopping? Answer Date of Assessment Author No 06/03/2015 1:49 PM TRISTIAN Archer Mitzi stephon Trejo APRN documented as of this encounter Mental Status * Because of a physical, mental or emotional condition, does this person have serious difficulty concentrating, remembering or making decisions? Answer Entry Date Author No 06/03/2015 1:49 PM TRISTIAN rAcher Mitzi stephon Trejo APRN documented in this encounter Plan of Treatment Upcoming Encounters Date Type Department Care Team (Late st Contact Info) Description 05/24/2024 10:30 AM EST Office Visit [facility] [address] [place] [phone] [address]ha [address] [place] [phone] documented as of this encounter Goals Goal Patient Goal Type Associated Problems Recent Progress Patient-Stated? Author Breast [facility] Breast Health On track( 021 9:11 AM EDT) Maisha Anderson, CRISTOBAL Note: Patient will be compliant with monthly Self Breast Exams and is aware of to who to contact for any unusual or concerning findings. Breast [facility] Breast Health No Alexia Kim RN Note: Patient will be compliant with monthly Self Breast Exams and is aware of to who to contact for any unusual or concerning findings. documented as of this encounter Visit Diagnoses Not on filedocumented in this encounter Additional Health Concerns Assessment Noted Time A fall risk assessment has been complete d for the patient 10/21/2023 2:54 PM EDT documented as of this encounter Care Teams Die Out Worker Relationship Specialty Start Date End Date Carlos Manuel Barragan [address] [facility] [address] [place] [address] PCP - General 07/03/10 documented as of this encounter
--- OUTSIDE RECORDS SUMMARY | 2024-05-04 22:50 | XMS_ITS | Encounter Summary ---
Author Organization [place] [address] Care Team Providers Care Agronomy Location Manager Name Role Phone Carlos Manuel Barragan Primary Care Provider [phone] Encounter Details Date Type Department Care Team (Late st Contact Info) Description 03/08/2024 Orders Only [facility] [address] [place] [address] Nikolas Jha, Mitzi [address] [facility] [address] [place] [address] Hallux valgus with bunions of [...] Author No 06/03/2015 1:49 PM Mitzi Jimenez, PARTS CASTING MACHINE OPERATOR * Is the person blind [...] PM Mitzi Jimenez stephon Trejo APRN * Because of a [...] 10:30 AM EST Office Visit [facility] [address] [place], [place] [address] Nikolas Jha Mitzi [address] [place] [address] [address] [place] [phone] Scheduled Orders Name Type Priority Associated Diagnoses Orde r Schedule SURGICAL/PROCEDURE CASE REQUEST Procedures Routine Hallux valgus with bunions of left foot Bunionette of left foot Hammer toe of left foot Ordered: 03/09/2024 documented as of this encounter Goals Goal Patient Goal Type Associated Problems Recent Progress Patient-Stated? Author Breast Health Breast Health On track( 021 9:11 AM EDT) No Maisha Kirk, RN Note: Patient will be compliant with monthly Self Breast Exams and is aware of to who to contact for any unusual or concerning findings. Breast Health Breast Health No Alexia Kim RN Note: Patient will be compliant with monthly Self Breast Exams and is aware of to who to contact for any unusual or concerning findings. documented as of this encounter Visit Diagnoses Diagnosis Hallux valgus with bunions of left foot- Primary Bunionette of left foot Hammer toe of left foot documented in this encounter Additional Health Concerns Assessment Noted Time A fall risk assessment has been complete d for the patient 10/21/2023 2:54 PM EDT documented as of this encounter Care Teams Agronomy Location Manager Relationship Specialty Start Date End Date Carlos Manuel Barragan [facility] [address] [place] [address] PCP - General 07/03/10 documented as of this encounter
--- OUTSIDE RECORDS SUMMARY | 2024-05-04 22:50 | XMS_ITS | Encounter Summary ---
Author Organization [place] [address] Care Team Providers Care County Judge Name Role Phone Carlos Manuel Barragan Primary Care Provider [phone] Encounter Details Date Type Department Care Team (Latest Contact Info) Description 03/25/2024 4:40 PM EDT Ancillary Procedure [facility] [address] [place] [phone] Nikolas Jha, [facility] [address] [facility] [address] [place] [phone] Hallux valgus with bunions of left [...] of Assessment Author No 06/03/2015 1:49 PM iMtzi Jimenez CAMPBELL Trejo * Is the person blind or does he/she have serious difficulty seeing even when wearing glasses? Answer Date of Assessment Author No 06/03/2015 1:49 PM Mitzi Jimenez CAMPBELL Trejo * Does this person have serious difficulty walking or climbing stairs? Answer Date of Assessment Author No 06/03/2015 1:49 PM Mitzi Jimenez CAMPBELL Trejo * Does this person have difficulty dressing or bathing? Answer Date of Assessment Author No 06/03/2015 1:49 PM Mitzi Jimenez Neil VETERINARY RADIOLOGIST * Because of a physical, mental or emotional condition, does this person have difficulty doing errands alone such as visiting a doctor's office or shopping? Answer Date of Assessment Author No 06/03/2015 1:49 PM Mitzi Jimenez CAMPBELL Trejo documented as of this encounter Mental Status * Because of a physical, mental or emotional condition, does this person have serious difficulty concentrating, remembering or making decisions? Answer Entry Date Author No 06/03/2015 1:49 PM Mitzi Jimenez CAMPBELL Trejo documented in this encounter Plan of Treatment Upcoming Encounters Date Type Department Care Team (Late st Contact Info) Description 05/24/2024 10:30 AM EST Office Visit [facility] [address] [place] [phone] Nikolas Jha [address] [place] [phone] documented as of this encounter Goals Goal Patient Goal Type Associated Problems Recent Progress Patient-Stated? Author Breast [facility] Breast Health On track( 021 9:11 AM EDT) No Maisha Kirk, RN Note: Patient will be compliant with monthly Self Breast Exams and is aware of to who to contact for any unusual or concerning findings. Breast [facility] Breast Health No Alexia Kim RN [...] FOOT LEFT AP LATERAL AND OBLIQUE STANDING (03/25/2024 4:49 PM EDT) Anatomical Region Laterality Modality Foot Radiographic Lindsey ging Narrative 03/26/2024 6:57 AM EDT Stable postop, good correction alignment, fixation in place, no apparent complications. us Nikolas Jha DPMitzi IMG DIAGNOSTIC IMAGING SHON [...] documented as of this encounter Care Teams County Judge Relationship Specialty Start Date End Date Carlos Manuel Barragan [address] [place] [address] [address] [place] [address] PCP - General 07/03/10 documented as of this encounter
--- OUTSIDE RECORDS SUMMARY | 2024-05-04 22:50 | XMS_ITS | Encounter Summary ---
[facility] Address [address] [place] [address] Care Team Providers Care Building Attendant Name Role Phone Rafael Barajas MD Primary Care Provider [phone] Reason for Visit * Reason Comments Med Refill Encounter Details Date Type Department Care Team (Late st Contact Info) Description 03/21/2016 Refill [facility] [address] [facility] [address] [place] [phone] Santo Salinas MD [address] [facility] [address] [place] [address] Med Refill Social History Tobacco Use Types Packs/Day Years Used Date Smoking Tobacco: Never Assessed Comments Unknown Sex and Gender Information Value Date Recorded Sex Assigned at Not on file Legal Sex Female 1:29 PM EDT Gender Identity Not on file Sexual Orientation Not on file documented as of this encounter Plan of Treatment Upcoming Encounters Date Type Department Care Team (Late st Contact Info) Description 07/29/2024 10:45 AM EST Office Visit [facility] [address] [facility] [address] [place] [phone] Goyo Khan MD [address] [facility] [address] [place], [place] [phone] 09/02/2024 11:30 AM EDT Office Visit [facility] CARDI[facility]ACIC SURGERY [address] [facility] [address] [place] [phone] Dee Jaimes SALES EXECUTIVE [address] [facility] [address] [place] [address] documented as of this encounter Visit Diagnoses Not on filedocumented in this encounter Care Teams Building Attendant Relationship Specialty Start Date End Date Rafael Barajas MD [address] [facility] [address] [facility] [address] [place] [address] PCP - General 04/12/15 03/19/22 documented as of this encounter
--- OUTSIDE RECORDS SUMMARY | 2024-05-04 22:50 | XMS_ITS | Encounter Summary ---
[facility] [address] [place] [address] Care Team Providers Care Account Support Analyst Name Role Phone Rafael Barajas MD Primary Care Provider [phone] Reason for Visit * Reason Comments Med Refill Encounter Details Date Type Department Care Team (Late st Contact Info) Description 01/31/2016 Refill [facility] [address] [facility] [address] [place] [phone] Santo Salinas MD [address] [facility] [address] [place] [address] Med Refill Social History Tobacco Use Types [...] Visit [facility] [address] [facility] [address] [place] [phone] Goyo Khan MD [address] [facility] [address] [place], [place] [phone] 09/02/2024 11:30 AM EDT Office Visit [facility] CARDIOTH[facility]ACIC SURGERY [address] [facility] [address] [place] [phone] Dee Jaimes FOREST PATHOLOGY TEACHER [address] [facility] [address] [place] [address] documented as of this encounter Visit Diagnoses Not on filedocumented in this encounter Care Teams Account Support Analyst Relationship Specialty Start Date End Date Rafael Barajas MD [address] [facility] [address] [facility] [address] [place] [address] PCP - General 04/12/15 03/19/22 documented as of this encounter
--- OUTSIDE RECORDS SUMMARY | 2024-05-04 22:50 | XMS_ITS | Encounter Summary ---
[facility] Address [address] [place] [address] Care Team Providers Care Cupola Tapper Helper Name Role Phone Unavailable Primary Care Provider Unavailabl e Encounter Details Date Type Department Care Team (Late st Contact Info) Description 06/01/2014 Office Visit Converted [facility] [address] [facility] [address] [place] [phone] Santo Salinas MD [address] [facility] [address] [place] [address] Social History Tobacco Use Types Packs/Day Years Used Date Smoking Tobacco: Never Assessed Comments Unknown Sex and Gender Information Value Date Recorded Sex Assigned at Not on file Legal Sex Female 1:29 PM EDT Gender Identity Not on file Sexual Orientation Not on file documented as of this encounter Progress Notes * Santo Salinas MD - 06/01/2014 11:15 AM EST LOCATION: [place] [facility] IDENTIFICATION: A 64-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 REFERRING PHYSICIAN: Bassem Barragan MD MEDICAL SURGERY NURSE: Katarina Tan MD NEUROSURGEON: Adrian Faye MD ORTHOPEDIC SURGEON: Josh Arellano MD PROBLEM LIST: 1. Possible hypertensive cardiovascular disease: a. Remote progressive chest pain syndrome with exertional bilateral arm pain suggestive of CCS class III angina pectoris with acceptable nuclear GXT, LVEF (0.72), Spring 2001 with empiric medical therapy initiated. Residual class I symptoms. 2. Labile hypertension. Migraine headaches. Intermittent sinusitis/allergic rhinitis. Hiatal hernia/probable GERD syndrome Intermittent chronic low back pain. H/O sleep apnea with C-PAP use. Post-menopausal status. Abnormal head CT scans, calcified right sided meningioma, August 2001. Remote operations: a. section, 1990. Laparoscopic cholecystectomy, May 2004. Right hip ORIF, spring 2008. 11. Abnormal cervical spine series suggestive of cervical spine osteoarthritis, August 2001. Mild obesity (BMI 32.6). Intractable right knee pain with subsequent right knee arthroscopic surgery and apparent meniscus resection - data deficit, April 2006 with persistent disabling symptoms and apparent intra-articular injections, 2006 with subsequent right total knee replacement surgery - data deficit, winter 2007. Hospitalization for intractable nausea, weakness, increased syncope with apparent dehydration related to sinusitis - data deficit, July 2006. Recent symptomatic numbness and tingling in hands, probable carpal tunnel syndrome. Mild dyslipidemia. ALLERGIES/DRUG INTOLERANCES: PENICILLIN, rash. CURRENT MEDICATIONS: 1. Ziac-5 daily. Zipsor 25 mg q.i.d., using once daily. ASA 81 mg daily. Potassium 20 mEq daily. Singulair 10 mg at bedtime. SUBJECTIVE: Patient returns for a 1-year followup. She states that she has done well from a cardiacstandpoint in the intervening year denying angina, palpitations, edema, syncope, presyncope, dyspnea, or any symptoms of CHF, TIA, or claudication. She does state that recently she came down a sinus infection and was given dexamethasone as well as cough syrup to help clear her symptoms. Patient states that she has improved since the use of these, but continues to have occasional cough. She otherwise denies nitroglycerin or tobacco use. OBJECTIVE: GENERAL: Pleasant, cooperative, ambulatory, well-nourished, well-developed, younger-appearing female appearing warm, dry, comfortable in no acute distress. VITAL SIGNS: Blood pressure 143/76 left arm sitting, 143/71 left am standing, blood pressure rechecked approximately 15 minutes later was 112/60 left arm sitting, pulse 77/regular, respirations 12/unlabored, weight 198.8 pounds (decreased six 0.6 pounds), height 5 feet 6 inches, BMI 32.09. NECK: No JVD at 30??. Carotid upstrokes are brisk without bruits. No thyromegaly or cervical adenopathy. LUNGS: Clear to auscultation without adventitial breath sounds bilaterally. CARDIAC: Regular rate and rhythm without murmur, S3, gallop, or rub. ABDOMEN: Soft without hepatosplenomegaly, mass or tenderness. EXTREMITIES: No edema and 2+ pedal pulses. NEUROLOGIC: Intact. ASSESSMENT: Patient has pursued a stable cardiac course in the intervening time. We encouraged her to remain active and are pleased that her weight has not increased, but discussed we would prefer ifshe could increase activity and reduce portion size to hopefully slightly decrease weight. RECOMMENDATIONS: 1. Continue current medications. Close followup and monitoring with the above providers. Tentative cardiology followup in 1 year or patient may return sooner p.r.n. Rosa Hernandez APRN dictating as a scribe for Dr. Salinas. Rosa Hernandez APRN.* Santo Salinas MD, [facility] S[facility]/gg cc: Bassem Barragan MD [facility] Electronically signed by:Rosa Hernandez APRN Jun 07 2014 11:26AM EST Electronically signed by:Santo Salinas MD Jun 08 2014 1:26PM EST documented in this encounter Plan of Treatment Upcoming Encounters Date Type Department Care Team (Late st Contact Info) Description 07/29/2024 10:45 AM EST Office Visit [facility] [address] [facility] [address] [place] [phone] Goyo Khan MD [address] [facility] [address] [place] [address] 09/02/2024 11:30 AM EDT Office Visit [facility] [address] [facility] [address] [place] [phone] Dee Jaimes APRN [address] [facility] [place] [address] documented as of this encounter Visit Diagnoses Not on filedocumented in this encounter
--- OUTSIDE RECORDS SUMMARY | 2024-05-04 22:50 | XMS_ITS | Encounter Summary ---
Author Organization [place] [address] Care Team Providers Care Block Setter Gypsum Name Role Phone Carlos Manuel Barragan Primary Care Provider [phone] Reason for Visit * Reason Comments Follow-up left foot- suture re moval Encounter Details Date Type Department Care Team (Latest Contact Info) Description 04/07/2024 10:00 AM EST Clinical Support [facility] [address] [place] [phone] Sarahi Lyon MA Hallux valgus with [...] Pressure - - Pulse - - Temperature 36.5 ??C (97.7 ??F) 04/07/2024 9:41 AM ES T Respiratory Rate - - Oxygen Saturation - - Inhaled Oxygen Concentration - - Weight 87.5 kg (193 lb) 04/07/2024 9:41 AM EST Height 167.6 cm (5' 6 ) 04/07/2024 9:41 AM EST Body Mass Index 31.15 04/07/2024 9:41 AM EST documented in this encounter Functional [...] Progress Notes * Sarahi Lyon MA - 04/07/2024 10:00 AM EST Images from the original note were not included. Patient presents today for a suture removal. Patient denies any fever, chills, nausea or vomiting. Bandage was removed without complications. No signs of infections. Patients foot was bandaged with Xeroform, dry sterile gauze and coban. Patient to keep the foot clean and dry. Patient will follow upwith Dr. Jha at next scheduled post operative exam. Patient gives verbal permission for this provider to take a picture of left foot in order to document in the patient record. The patient is aware that no data is stored anywhere except for [facility]. Thispermission was witnessed by NATHANIEL Mcclain. documented in this encounter Plan of Treatment Upcoming Encounters Date Type Department Care Team (Late st Contact Info) Description 05/24/2024 10:30 AM EST Office Visit [facility] [place] [address] [place] [address] [address] [place] [address] Nikolas Jha, DPMitzi [address] [facility] [address] [place] [address] documented as of this encounter Goals Goal Patient Goal Type Associated Problems Recent Progress Patient-Stated? Author Breast [facility] Breast Health On track( 021 9:11 [...] documented as of this encounter Care Teams Block Setter Gypsum Relationship Specialty Start Date End Date Carlos Maunel Barragan [address] [facility] [address] [place] [address] PCP - General 07/03/10 documented as of this encounter
--- OUTSIDE RECORDS SUMMARY | 2024-05-04 22:50 | XMS_ITS | Encounter Summary ---
Author Organization [facility] Address [address] [place] [address] Care Team Providers Care Front End Developer Designer Name Role Phone Rafael Barajas MD Primary Care Provider [phone] Encounter Details Date Type Department Care Team (Late st Contact Info) Description 05/23/2015 Office Visit Converted [facility] [address] [facility] [address] [place] [phone] Santo Salinas MD [address] [facility] [address] [place] [address] Social History Tobacco Use Types Packs/Day Years Used Date Smoking Tobacco: Never Assessed Comments Unknown Sex and Gender Information Value Date Recorded Sex Assigned at Not on file Legal Sex Female 1:29 PM EDT Gender Identity Not on file Sexual Orientation Not on file documented as of this encounter Progress Notes * Santo Salinas MD - 05/23/2015 1:30 PM EST LOCATION: [place] [facility] IDENTIFICATION: 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 REFERRING PHYSICIAN: Bassem [place]agan MD ASSISTANT PROFESSOR OF SOCIOLOGY: Katarina Tan MD NEUROSURGEON: Adrian Faye MD ORTHOPEDIC SURGEON: Josh Arellano MD ONCOLOGIC SURGEON: Roque Crouch MD PROBLEM LIST: 1. Possible hypertensive cardiovascular disease: a. Remote progressive chest pain syndrome with exertional bilateral arm pain suggestive of CCS class III angina pectoris with acceptable nuclear GXT, LVEF 0.72, spring 2001, with empiric medical therapy initiated. Residual class I symptoms. 2. Labile hypertension. Migraine headaches. Intermittent sinusitis/allergic rhinitis. Hiatal hernia/probable GERD syndrome Intermittent chronic low back pain. H/O sleep apnea with CPAP use. Post-menopausal status. Abnormal head CT scans, calcified right-sided meningioma, August 2001. Remote operations: a. section, [...] hands, probable carpal tunnel syndrome. Mild dyslipidemia. Recent apparent acceptable mammography (spring 2014), with subsequent development of inverted left nipple with findings of invasive grade I lobular carcinoma with scattered small foci (December-January 2015), with negative left axillary lymph node biopsy and apparent negative BRAC2 assessment with c ontemplated left mastectomy (May 2015). ALLERGIES/DRUG INTOLERANCES: PENICILLIN, rash. CURRENT MEDICATIONS: 1. Zipsor 25 mg 1-4 daily p.r.n. Bisoprolol/HCTZ 5/6.25 mg daily. ASA 81 mg daily. KCl 20 mEq daily. Singulair 10 mg p.m. daily. Vitamin D3, 2000 IU daily. Arimidex 1 mg daily. DIET: AHA prudent/Phase I. SUBJECTIVE: The patient returns for a reassessment after a 1-year hiatus. She interestingly developed an asymptomatic inverted left breast nipple in late December 2014 and underwent evaluation with hergynecologist and subsequent evaluation and treatment for left breast cancer. She is scheduled for aleft mastectomy with Dr. Roque Crouch next month; per protocol, data deficit. She has undergonea preoperative physical with Dr. Barajas earlier today and is scheduled for laboratory studies andEKG, as well as a possible chest x-ray, at [place] tomorrow. She denies interim complaints ofangina, CHF, TIA, or claudication and has felt well and relates acceptable blood pressure readings. She had no difficulty with the anesthesia for her lymph node biopsy, apparently 1-2 months ago; data deficit. She denies tobacco or nitroglycerin use. Her review of systems is otherwise negative. No GI or difficulties specifically. She additionally denies cough, sputum production, fever, chills,pleurisy, or hemoptysis. OBJECTIVE: GENERAL: Pleasant, cooperative, ambulatory, well-nourished, well-developed, younger-appearing female, appearing warm, dry, and comfortable and in no acute distress. VITAL SIGNS: Blood pressure 121/83 left arm sitting, pulse 78 and regular. Standing blood pressure in the left arm was 130/81, with a pulse of 84 and regular. Weight 205.2 pounds (increased 6.4 pounds), BMI 33. HEENT: Unremarkable. NECK: No JVD at 30??. Carotids are unremarkable. No thyromegaly or cervical adenopathy. CHEST: Clear to auscultation and percussion. CARDIAC: Regular rate and rhythm without murmur, S3, gallop, or rub. ABDOMEN: Mildly obese and soft without hepatosplenomegaly, mass, tenderness, or guarding. EXTREMITIES: No cyanosis, clubbing, or edema. Unremarkable joints. No rash or adenopathy. NEUROLOGIC: Intact. ASSESSMENT: Cardiac status appears stable at this time. I feel she can undergo her left mastectomy under general anesthetic. RECOMMENDATIONS: 1. Continue current medications with close followup and monitoring with the above physicians. Tentative cardiology reassessment in 1 year; return sooner p.r.n. Santo [place] MD, [facility] KTS/brr cc: MD Roque Valdivia MD, [address] [place] [address] CARDIOLOGY AT [facility] Electronically signed by:Santo Salinas MD Jun 01 2015 1:34PM EST documented in this encounter Plan of Treatment Upcoming Encounters Date Type Department Care Team (Late st Contact Info) Description 07/29/2024 10:45 AM EST Office Visit [facility] [address] [facility] [address] [place] [phone] Goyo Khan MD [address] [facility] [address] [place] [address] 09/02/2024 11:30 AM EDT Office Visit [facility] [address] [facility] [address] [place] [address] Dee Jaimes APRN [address] [facility] [address] [place] [address] documented as of this encounter Visit Diagnoses Not on filedocumented in this encounter Care Teams Front End Developer Designer Relationship Specialty Start Date End Date Rafael Barajas MD [address] [facility] [address] [facility] [address] [place] [address] PCP - General 04/12/15 03/19/22 documented as of this encounter
--- OUTSIDE RECORDS SUMMARY | 2024-05-04 22:50 | XMS_ITS | Encounter Summary ---
Author [place] [address] Care Team Providers Care Referral Rn Name Role Phone Carlos Manuel Barragan Primary Care Provider [phone] Reason for Visit * Auth/Cert/Inpt Specialty Diagnoses / Procedures Referred By Heather t Referred To Contact Diagnoses Hallux valgus with bunions of left foot Bunionette of left foot Hammer toe of left foot Hallux valgus with bunions of left foot [M20.12, M21.612] Bunionette of left foot [M21.622] Hammer toe of left foot [M20.42] Procedures UT FUSION BIG TOE,MT-P JT UT OSTEOTOMY METATARSAL (NOT 1ST) UT REPAIR OF HAMMERTOE,ONE first metatarsophalangeal joint fusion left foot.fifth metatarsal osteotomy left foot.left fourth and fifth hammertoe repair. Referral ID Status Reason Start Date Expiration Date Visits Re quested Visits Authorized [id number] 1 1 Encounter Details Date Type Department Care Team (Latest Contact Info) Description 03/22/2024 8:54 AM EDT - 03/22/2024 1:10 PM EDT Hospital Encounter [facility] [address] [facility] [address] [place] [address] Nikolas Jha DPM [address] [address] Discharge Disposition: Home or Self Care Social [...] Pulse 70 03/22/2024 12:30 PM EDT Temperature 36.3 ??C (97.3 ??F) 03/22/2024 12:21 PM E DT Respiratory Rate 16 03/22/2024 12:30 PM EDT [...] encounter Discharge Instructions * Discharge Instructions* Nikolas Jha DPM - 03/22/2024 9:14 AM EDT Images from the original note were not included. [facility] Discharge Instructions for DRS. Bella, Krystian, and Abhijeet You have just had a [...] do not cross legs, and do not application systems administrator one place for any length of time. [...] develop a fever. Call the office at [phone] with questions or concerns. Other instruction: Touch down weight bearing with walker for transfer and bathroom privileges. +++++++++++++++++++++++++++++++++++++++++++++++++++++++++++++++++++ [facility] Discharge Instructions - Following Anesthesia We appreciate [...] our office at . Get Well Soon! [place] Anesthesia +++++++++++++++++++++++++++++++++++++++++++++++++++++++++++++++++++ documented in this encounter Medications [...] Aortic aneurysm (HCC) stent placed 04/2022 - [facility] in [facility] Arthritis knees, hips,back BRCA negative Breast cancer (HCC) 02/09/2015 VTC, grade 1. No receptors at this time [...] SYMMETRY ; Surgeon: Flaco Damon MD; Location: [facility]; Service: Plastics BREAST REDUCTION SURGERY Right 11/16/2015 Surgeon: Flaco Damon MD; Location: [facility]; Service: Plastics BREAST SURGERY Left 06/02/2015 BREAST RECONSTRUCTION 1ST STAGE WITH EXPANDERS ; Surgeon: Flaco Damon MD; Location: [facility]; Service: General CARPAL TUNNEL RELEASE Bilateral 02/12/2018 BILATERAL CARPAL TUNNEL RELEASE ; Surgeon: Francisco Javier Lepe MD; Location: [facility]; Service: Hand CHOLECYSTECTOMY COLONOSCOPY FOOT SURGERY Left 10/05/2010 hammertoes TONSILLECTOMY TOTAL KNEE ARTHROPLASTY Right 2008 TOTAL KNEE ARTHROPLASTY Left 09/29/2018 LEFT TOTAL KNEE ARTHROPLASTY; Surgeon: Brian Newman MD; Location: [facility] MAIN OR; Service: Orthopedics VASCULAR SURGERY 04/26/2022 [...] file Social Connections: Unknown (03/03/2023) Received from [facility] Family and Community Support Help with Day-to-Day Activities: Not on file Lonely or Isolated: Not on file Intimate Partner Violence: Not At Risk (06/30/2023) Received from [facility] Abuse Screen Feels Unsafe at Home or Work/School: no Feels Threatened by Someone: no Does Anyone Try to Keep You From Having Contact with Others or Doing Things Outside Your Home?: no Physical Signs of Abuse Present: no Housing Stability: Unknown (05/16/2023) Received from [facility] Housing Stability Current Living Arrangements: Not on [...] leg splint, left. SURGEON: Nikolas Jha DPM. IMPLEMENTATION ENGINEER: None. ANESTHESIA: Local with IV sedation. [...] well. Reviewed in full by naomi/LORENA, 03/24/2024 Nikolas Jha D.P.M. By: Jason Job ID: [id number] Doc ID: [id number] * Nikolas Jha DPM - 03/22/2024 11:51 AM EDT [facility] OPERATIVE/PROCEDURE NOTE Juany Alarcon March 22, 2024 [...] Role: * Nikolas Jha DPM - Primary IMPLEMENTATION ENGINEER(S): ANESTHESIA: Monitored Anesthesia Care SPECIMENS: * [...] No alcohol 24 hours prior to surgery. Hammerer Helper It is important to have a Hammerer Helper, someone who is 18 years or older, [...] concern, please reach out to our department [phone]. Hygiene [place] your teeth and gargle the morning of surgery. Shower the morning of surgery or the night before. Do not wear makeup (including eye makeup) lotion, powder, deodorant, perfume, or cologne. Do not shave the operative extremity or near the operative area. Remove nail french prior to surgery. This includes artificial nails and gel nail french. Personal Items Wear clean, simple, loose-fitting clothing (no jeans) and sturdy shoes (no flip flops, slides or crocs) to the hospital. Do not bring unnecessary valuables with you. It is policy that [facility] does not assume responsibility for lost, stolen [...] your Living Will and/or Durable Power of Senior Visual Designer for Healthcare. Notify the Surgeon Notify your surgeon if you develop any illness (fever, cold, cough, sore throat, nausea, vomiting, skin rashes etc.) between now and surgery time Notify your surgeon and Pre-admission testing ([phone]) if you have any changes in your healthconditions or if any new medications are ordered between now and surgery.. Questions or Concerns? If you have any questions or concerns, feel free to call the Pre-Admission testing department at [phone]. We want to make sure you feel safe and have an excellent experience while you are here. Do not reply to this message through [employer] as it may not be answered promptly. [facility] [place] at [phone] - [address] [facility], [place], [facility]. DOORS OPEN AT 6:30 AM ANESTHESIA - [...] Jing (HARRIS); InfectiousDiseases Society of [place] (IDSA); [facility]; Association for Professionals inInfection Control and [...] Jha DPM - 03/21/2024 5:32 PM EDT [facility] INFORMED CONSENT NOTE Patient: Juany Alarcon Date: March 21, 2024 PROCEDURE(S): first metatarsophalangeal joint fusion left foot.fifth metatarsal osteotomy left foot.left fourth and fifth hammertoe repair. I attest that the patient/patient civil rights representative has been counseled as to the potential benefits, risks, and side effects to the planned surgical treatment, including the likelihood of success and potential problems that might occur during recuperation. The patient/patient civil rights representative has also been counseled as to [...] from their legal decision maker. The patient/patient civil rights representative has given their consent to proceed with this intervention after having their questions sufficiently answered. [employer] used: no Nikolas Jha DPM Date: 03/21/2024 documented in this encounter Plan of Treatment Upcoming Encounters Date Type Department Care Team (Late st Contact Info) Description 05/24/2024 10:30 AM EST Office Visit [facility] [address] [place] [phone] Nikolas Jha DPM [address] [place] [address] [place] [phone] documented as of this encounter Goals Goal Patient Goal Type Associated Problems Recent Progress Patient-Stated? Author Breast Health Breast Health On track( 021 9:11 AM EDT) Maisha Anderson, RN Note: Patient will be compliant with monthly Self Breast Exams and is aware of to who to contact for any unusual or concerning findings. Breast Health Breast Health Alexia Williamson RN Note: Patient will be compliant with monthly Self Breast Exams and is aware of to who to contact for any unusual or concerning findings. documented as of this encounter Procedures Procedure Name Priority Date/Time Associated Diagnosis Comments UT REPAIR OF HAMMERTOE,ONE 03/22/2024 10:24 AM EDT Hallux valgus with bunions of left foot Bunionette of left foot Hammer toe of left foot Special Needs Arthrex (rep notified-AD)sk UT OSTEOTOMY METATARSAL (NOT 1ST) 03/22/2024 10:24 AM EDT Hallux valgus with bunions of left foot Bunionette of left foot Hammer toe of left foot Special Needs Arthrex (rep notified-AD)sk UT FUSION BIG TOE,MT-P JT 03/22/2024 10:24 AM EDT Hallux valgus with bunions of left foot Bunionette of left foot Hammer toe of left foot Special Needs Arthrex (rep notified-AD)sk FL SURGICAL C-ARM PROCEDURE ANABEL 03/22/2024 10:03 AM EDT documented in this encounter Results * FL SURGICAL C-ARM PROCEDURE (03/22/2024 10:03 AM EDT) Narrative Genericuser, Audit - 03/22/2024 10:03 AM EDT The mini [...] dose, Starting on 03/21/24 at 1542, Until Mon 28/24 at 0924, Coanalgesic, Do not give if [...] Meds) IV Restarted 03/22/2024 10:25 AM EDT ondansetron (ZOFRAN) injection 4 mg 4 mg, [...] mg, Oral, PREPROCEDURE, 1 dose, Starting on Fri03/21/24 at 1542, Until Fri03/22/24 at 0924, Coanalgesic, [...] 03/22/2024 fentaNYL (SUBLIMAZE) injection 25 mcg 1 lidocaine 10 mg/mL (1 %) 15 mL, bupivacaine (MARCAINE) 0.5 % (5 mg/mL) 15 mL 30 mL injection 1 03/22/2024 ondansetron (ZOFRAN) injection 4 mg 1 03/22 [...] documented as of this encounter Care Teams Referral Rn Relationship Specialty Start Date End Date Carlos Manuel Barragan [address] [place] [address] [address] [place] [address] PCP - General 07/03/10 documented as of this encounter
--- OUTSIDE RECORDS SUMMARY | 2024-05-04 22:50 | XMS_ITS | Encounter Summary ---
[facility] Address [address] [place] [address] Care Team Providers Care Collision Technician Name Role Phone Talon Barragan MD Primary Care Provider Encounter Details Date Type Department Care Team (Late st Contact Info) Description 05/08/2016 External CPT II SURVEY INTERVIEWER - [employer] Social History Tobacco Use Types Packs/Day Years [...] Visit [facility] CARDIOLOGY [address] [facility] [address] [place] [address] Goyo Khan MD [address] [facility] [address] [place] [address] 09/02/2024 11:30 AM EDT Office Visit [facility] CARDIOTHORACIC SURGERY [address] [facility] [address] [place] [id number] Dee Jaimes APRN [address] [facility] [address] [place] [address] documented as of this encounter Visit Diagnoses Not on filedocumented in this encounter Care Teams Collision Technician Relationship Specialty Start Date End Date Talon Barragan MD [address] [place] [address] PCP - General Family Medicine 03/20/22 documented as of this encounter
--- OUTSIDE RECORDS SUMMARY | 2024-05-04 22:50 | XMS_ITS | Encounter Summary ---
Author Organization [place] [address] Care Team Providers Care Rolling Machine Operator Name Role Phone Carlos Manuel Barragan Primary Care Provider [phone] Reason for Visit * Reason Comments Post-op left foot Encounter Details Date Type Department Care Team (Late st Contact Info) Description 03/25/2024 4:00 PM EDT Office Visit [facility] [address] [place] [address] Nikolas Jha DPM [address] [place] [address] Hallux valgus with bunions of [...] Pressure - - Pulse - - Temperature 36.3 ??C (97.3 ??F) 03/25/2024 4:05 PM ED T Respiratory Rate - - Oxygen Saturation - - Inhaled Oxygen Concentration - - Weight 87.5 kg (193 lb) 03/25/2024 4:05 PM EDT Height 167.6 cm (5' 6 ) 03/25/2024 4:05 PM EDT Body Mass Index 31.15 03/25/2024 4:05 PM EDT documented in this encounter Functional Status [...] in this encounter Progress Notes * Nikolas Jha DPM - 03/25/2024 4:00 PM EDT Images from the original note were not included. Subjective: Patient ID: Juany Conn is a 73 y.o. female. Chief Complaint: Post-op (left foot/) HPI 73 y.o. female complains of Post-op (left foot/) POD 3 days DATE OF OPERATION: 03/22/2024 PREOPERATIVE DIAGNOSES: Hallux [...] leg splint, left. SURGEON: Nikolas Jha DPM. MARKET DEVELOPMENT TRAINER: None. ANESTHESIA: Local with IV sedation. HEMOSTASIS: Ankle tourniquet. ESTIMATED BLOOD LOSS: 1 mL. No pain. Past Medical History: Diagnosis Date Anemia when younger only Aortic aneurysm (HCC) stent placed 04/2022 - [facility] in [facility] Arthritis knees, hips,back BRCA negative Breast cancer [...] 1 Tablet by mouth 2 times daily. ketorolac (TORADOL) 10 mg Oral Tablet Take 1 Tablet by mouth every 6 hours as needed for Pain for up to 5 days. 20 Tablet 0 metoclopramide HCl (REGLAN) 5 mg Oral Tablet Take 5 mg by mouth 2 times daily. metoprolol succinate (TOPROL-XL) 50 mg Oral Tablet Sustained Release 24 hr Take 50 mg by mouth daily. montelukast (SINGULAIR) 10 mg Oral Tablet Take 10 mg by mouth every evening. oxyCODONE-acetaminophen (PERCOCET) 5-325 mg Oral Tablet Take 1-2 Tablets by mouth every 4 hours as needed for Major Surgery/Trauma (G89.18) for up to 7 days. 40 Tablet 0 promethazine (PHENERGAN) 25 mg Oral Tablet Take 1 Tablet by mouth every 6 hours as needed for up to10 days. 30 Tablet 0 rosuvastatin (CRESTOR) 10 mg Oral Tablet Take [...] ; Surgeon: Flaco Damon MD; Location: [facility]; Service: Plastics BREAST REDUCTION SURGERY Right 11/16/2015 Surgeon: Flaco Damon MD; Location: [facility]; Service: Plastics BREAST SURGERY Left 06/02/2015 BREAST RECONSTRUCTION 1ST STAGE WITH EXPANDERS ; Surgeon: Flaco Damon MD; Location: [facility]; Service: General CARPAL TUNNEL RELEASE Bilateral 02/12/2018 BILATERAL CARPAL TUNNEL RELEASE ; Surgeon: Francisco Javier Lepe MD; Location: [facility]; Service: Hand CHOLECYSTECTOMY COLONOSCOPY FOOT SURGERY Left 10/05/2010 hammertoes HAMMER TOE SURGERY Left 03/22/2024 Surgeon: Nikolas Jha DPM; Location: [facility]; Service: Podiatry TOE FUSION Left 03/22/2024 first metatarsophalangeal joint fusion left foot.fifth metatarsal osteotomy left foot.left fourth and fifth hammertoe repair.; Surgeon: Nikolas Jha DPM; Location: [facility]; Service: Podiatry TOE SURGERY Left 03/22/2024 Surgeon: Nikolas Jha DPM; Location: [facility]; Service: Podiatry TONSILLECTOMY TOTAL KNEE ARTHROPLASTY Right 2008 TOTAL KNEE ARTHROPLASTY Left 09/29/2018 LEFT TOTAL KNEE ARTHROPLASTY; Surgeon: Brian Newman MD; Location: [facility]; Service: Orthopedics VASCULAR SURGERY 04/26/2022 TVAR [...] file Social Connections: Unknown (03/03/2023) Received from [facility] Family and Community Support Help with Day-to-Day Activities: Not on file Lonely or Isolated: Not on file Intimate Partner Violence: Not At Risk (06/30/2023) Received from [facility] Abuse Screen Feels Unsafe at Home or Work/School: no Feels Threatened by Someone: no Does Anyone Try to Keep You From Having Contact with Others or Doing Things Outside Your Home?: no Physical Signs of Abuse Present: no Housing Stability: Unknown (05/16/2023) Received from [facility] Housing Stability Current Living Arrangements: Not on file Potentially Unsafe Housing Conditions: Not on file Review of Systems Eyes: Positive for visual disturbance (wears glasses). Musculoskeletal: Positive for gait problem and joint swelling (left foot). Hematological: Does not bruise/bleed easily. All other systems reviewed and are negative. Objective: Vitals: 03/25/24 1605 Temp: 97.3 ??F (36.3 ??C) TempSrc: Forehead Weight: 193 lb (87.5 kg) Height: 5' 6 (1.676 m) Body mass index is 31.15 kg/m??. No results found for: HGBA1C XR FOOT LEFT AP LATERAL AND OBLIQUE STANDING Status: Final result XR FOOT LEFT AP LATERAL AND OBLIQUE STANDING: Patient Communication Add Comments Not seen PACS Images Show images for XR FOOT LEFT AP LATERAL AND OBLIQUE STANDING Study Result Narrative & Impression Stable postop, good correction alignment, fixation in place, no apparent complications. Imaging XR FOOT LEFT AP LATERAL AND OBLIQUE STANDING (Order: [id number]) - 03/25/2024 Read By Reading Date NIKOLAS JHA 03/26/2024 Physical Exam Incisions clean, dry, coapted, skin edges viable, no signs of infection, no signs of complication. Acceptable alignment and correction. Assessment and Plan: Diagnoses and all orders for this visit: Hallux valgus with bunions of left foot - XR FOOT LEFT AP LATERAL AND OBLIQUE STANDING; Future - [place] PNEUMA/VAC WALK BOOT PRE OTS Metatarsus primus varus - XR FOOT LEFT AP LATERAL AND OBLIQUE STANDING; Future - [place] PNEUMA/VAC WALK BOOT PRE OTS Bunionette of left foot - XR FOOT LEFT AP LATERAL AND OBLIQUE STANDING; Future - [place] PNEUMA/VAC WALK BOOT PRE OTS Hammer toe of left foot - XR FOOT LEFT AP LATERAL AND OBLIQUE STANDING; Future - [place] PNEUMA/VAC WALK BOOT PRE OTS Doing well. DSD change. RICE. Non-weight bearing with knee scooter. Pneumatic cast boot fitted and applied and dispensed left for immobilization for off loading. F/U 1 week for dressing change. No follow-ups on file. documented in this encounter Plan of Treatment Upcoming Encounters Date Type Department Care Team (Late st Contact Info) Description 05/24/2024 10:30 AM EST Office Visit [facility] [address] [address] Nikolas Jha DPM [address] [facility] [address] [place] [address] Scheduled Orders Name Type Priority Associated Diagnoses Orde r Schedule [place] PNEUMA/VAC WALK BOOT PRE OTS [place] Charge Routine 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 of left foot Hammer toe of left foot Ordered: 03/25/2024 documented as of this encounter Goals Goal Patient Goal Type Associated Problems Recent Progress Patient-Stated? Author Breast [facility] Breast Health On track( 021 9:11 AM EDT) No Maisha Kirk, CRISTOBAL Note: Patient will be compliant with monthly Self Breast Exams and is aware of to who to contact for any unusual or concerning findings. [facility] Breast [facility] No Alexia Kim RN Note: Patient [...] alignment, fixation in place, no apparent complications. Nikolas Jha DPM IMG DIAGNOSTIC IMAGING SHON [...] documented as of this encounter Care Teams Rolling Machine Operator Relationship Specialty Start Date End Date Carlos Manuel Barragan [address] [place] [address] [place] [address] PCP - General 07/03/10 documented as of this encounter
--- OUTSIDE RECORDS SUMMARY | 2024-05-04 22:50 | XMS_ITS | Referral Summary ---
Author Organization [facility] Address [address] [place] [address] Phone Care Team Providers Care Shipping Clerk Name Role Phone Carlos Manuel Barragan Primary Care Provider [phone] Encounters Date Type Department Care Team Description 04/19/2024 1:55 PM EST Ancillary Procedure [facility] [place] [phone] Nikolas Jha, DPMitzi Hallux valgus with bunions of left foot; Metatarsus primus varus; Bunionette of left foot 04/19/2024 1:15 PM EST [facility] [address] Nikolas Jha, DPMitzi Hallux valgus with bunions of left foot (Primary Dx); Metatarsus primus varus; Bunionette of left foot 04/07/2024 10:00 AM EST Clinical Support [facility] [address] [address] Sarahi Lyon MA Hallux valgus with bunions of left foot (Primary Dx); Metatarsus primus varus; Bunionette of left foot 03/31/2024 9:45 AM EST Clinical Support [facility] Podiatry [address] [address] Sarahi Lyon MA Hallux valgus with bunions of left foot (Primary Dx); Metatarsus primus varus; Bunionette of left foot; Hammer toe of left foot 03/25/2024 4:40 PM EDT Ancillary Procedure [facility] Podiatry [place] [phone] Nikolas Jha, DPMitzi Hallux valgus with bunions of left foot; Metatarsus primus varus; Bunionette of left foot; Hammer toe of left foot 03/25/2024 4:00 PM EDT Office Visit [facility] Podiatry [address] [address] Nikolas Jha, SURENDRA Hallux valgus with bunions of left foot (Primary Dx); Metatarsus primus varus; Bunionette of left foot; Hammer toe of left foot 03/22/2024 12:05 PM EDT Ancillary Procedure [facility] [address] [place] [id number] Nikolas Jha DPM 03/22/2024 10:03 AM EDT - 03/22/2024 12:16 PM EDT Surgery [facility] [address] [place] [id number] Nikolas Jha, DPM TOE FUSION FIRST METATARSAL 03/22/2024 10:25 AM EDT Anesthesia Event [facility] [address] [place] [id number] MD Dickinson, Timothy D, MD 03/22/2024 8:54 AM EDT - 03/22/2024 1:10 PM EDT Hospital Encounter [facility] [address] [place] [id number] Nikolas Jha DPMitzi Discharge Disposition: Home or Self Care 03/16/2024 Travel 03/08/2024 Orders Only [facility] Podiatry [address] [place] [address] Nikolas Jha DPM Hallux valgus with bunions of left foot (Primary Dx); Bunionette of left foot; Hammer toe of left foot 03/04/2024 11:00 AM EDT Office Visit [facility] Podiatry [address] [address] Nikolas Jha DPM Hallux valgus with bunions of left foot (Primary Dx); Bunionette of left foot; Hammer toe of left foot 03/01/2024 Telephone [facility] Podiatry [address] [address] Nikolas Jha DPM Other from Last 3 Months Allergies Active Allergy Reactions Criticality Noted Date [...] receptors at this time (not sufficient tissue) Social History Tobacco Use Types Packs/Day Years [...] on file Sexual Orientation Not on file Last Filed Vital Signs Vital Sign Reading [...] Mass Index 31.15 04/07/2024 9:41 AM EST Functional Status * Is the person deaf or does he/she have serious difficulty hearing? Answer Date of Assessment Author No 06/03/2015 1:49 PM EST Mitzi Archer APRN * Is the person blind or [...] 1:49 PM Mitzi Jimenez stephon Trejo APRN Mental Status * Because of a physical, mental or emotional condition, does this person have serious difficulty concentrating, remembering or making decisions? Answer Entry Date Author No 06/03/2015 1:49 PM Mitzi Jimenez stephon Trejo APRN Plan of Treatment Upcoming Encounters Date Type Department Care Team (Late st Contact Info) Description 05/24/2024 10:30 AM EST Office Visit [facility] [address] [place] [address] Nikolas Jha [address] [place] [address] Goals Goal Patient Goal Type Associated Problems Recent Progress Patient-Stated? Author Breast [facility] Breast Health On track( 021 9:11 AM EDT) Maisha Anderson, RN Note: Patient will be compliant with monthly Self Breast Exams and is aware of to who to contact for any unusual or concerning findings. Breast Health Breast Health Alexia Williamson, CRISTOBAL Note: Patient will be compliant with monthly Self Breast Exams and is aware of to who to contact for any unusual or concerning findings. Medical Devices Implanted Type Area Packer Dried Beef Device Identifier Shelf Expiration Date Model / Serial / Lot Right Hip Replacement Right Knee Replacement Wire Kanchan .045 X 6 Style-1 Sterile - [id number] Implanted:Qty: 1 on 10/05/2010 at [facility] Left: Tongue SIVAN:SIVAN 02/24/2020 21-9849-140-0 0 / / [id number] Wire Kanchan .045 X 6 Style-1 Sterile - [id number] Implanted:Qty: 1 on 10/05/2010 at [facility] Left: Toe SIVAN:SIVAN 03/26/2020 [id number] 0 / / [id number] [employer] Consultant Tissue Breast Cpx4 Low Height Style 8100 550cc - [id number] Implanted:Qty: 1 on 06/02/2015 by Dany Crouch MD at [facility] Left: Breast MENTOR:AESTHETI PRDT [id number] 09/22/2018 [id number] / [id number] / [id number] Implant Breast Memory Shape Moderate Med Height 530cc - [id number] Implanted:Qty: 1 on 11/16/2015 by Flaco Damon MD at [facility] Left: Breast MENTOR:AESTHETI CS PRDT 02/23/2018 [id number] / [id number] / [id number] Femur Persona Ps Porous Standard Size 5 Left - [id number] Implanted:Qty: 1 on 09/29/2018 by Brian Newman MD at [facility] Left: Knee SIVAN:SIVAN 07/30/2028 [id number] Component Tibia Cemented Stemmed Persona 5 Degree Lft Sz E - [id number] Implanted:Qty: 1 on 09/29/2018 by Brian Newman MD at [facility] Left: Knee SIVAN:SIVAN 06/01/2028 [id number] / / [id number] Surface Articular Ps Fixed Persona Left 10mm (Fem 3-5tibef) - [id number] Implanted:Qty: 1 on 09/29/2018 by Brian Newman MD at [facility] Left: Knee SIVAN:SIVAN 04/01/2023 [id number] 0 / / [id number] Cement Bn Refobacin St Latex Free Disposable - [id number] Implanted:Qty: 1 on 09/29/2018 by Brian Newman MD at [facility] Left: Knee SIVAN:SIVAN 06/01/2020 [id number] / / [id number] Patella All Poly Cemented Persona 32mm 8.5mm Thickness - [id number] Implanted:Qty: 1 on 09/29/2018 by Brian Newman MD at [facility] Left: Knee SIVAN:SIVAN 06/01/2026 [id number] 2 / / [id number] Extension Stem Persona Tapered Cemented 14mm +30 - [id number] Implanted:Qty: 1 on 09/29/2018 by Brian Newman MD at [facility] Left: Knee SIVAN:SIVAN 07/30/2028 [id number] 4 / / [id number] Pin Drill 1.2w201zo Tip Trim-It F/Shldr Impl Dlv Sys - [id number] Implanted:Qty: 1 on 03/22/2024 by Nikolas Jha DPM at [facility] Left: Foot ARTHREX 05/25/2025 [id number] / / [id number] Screw 3.0mm X 14mm Kreulock Titanium - [id number] Implanted:Qty: 2 on 03/22/2024 by Nikolas Jha DPM at [facility] Left: Foot ARTHREX [id number] / / Screw 3.0mm X 18mm Kreulock Titanium - [id number] Implanted:Qty: 1 on 03/22/2024 by Nikolas Jha DPM at [facility] Left: Foot ARTHREX [id number] / / Screw 3.0mm X 16mm Kreulock Titanium - [id number] Implanted:Qty: 2 on 03/22/2024 by Nikolas Jha DPM at [facility] Left: Foot ARTHREX [id number] / / Screw Lp 3.0mm X16mm Cortical Mtp Ti - [id number] Implanted:Qty: 1 on 03/22/2024 by Nikolas Jha DPM at [facility] Left: Foot ARTHREX AR-[id number] / / Plate Maxforce Mtp 0-0 Petite Left - [id number] Implanted:Qty: 1 on 03/22/2024 by Nikolas Jha DPM at [facility] Left: Foot ARTHREX [id number] / / [...] AIRWAY PLACEMENT Routine 03/22/2024 10:30 AM EDT NV REPAIR OF HAMMERTOE,ONE 03/22/2024 10:24 AM EDT Hallux valgus with bunions of left foot Bunionette of left foot Hammer toe of left foot Special Needs Arthrex (rep notified-AD)sk [place] OSTEOTOMY METATARSAL (NOT 1ST) 03/22/2024 10:24 AM EDT Hallux valgus with bunions of left foot Bunionette of left foot Hammer toe of left foot Special Needs Arthrex (rep notified-AD)sk NV FUSION BIG TOE,MT-P JT 03/22/2024 10:24 AM [...] PM EST History of breast cancer 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 03/22/2024 10:38 AM Intraop Airway Placement: Date/Time: 03/22/2024 10:30 AM ??Airway type: ??Nasal cannula brittnyer us [address] MD [place] ANESTHESIA Final Result [facility] [address] [place] [id number] * [place] SURGICAL C-ARM PROCEDURE (03/22/2024 10:03 [...] EDT Impressions 08/25/2023 2:36 PM EDT Negative ??([id number]) ~ RECOMMENDATION: Routine screening mammogram in 1 [...] the next mammogram, in accordance with the [place] [employer] and the Society of Breast Imaging recommendations. Narrative 08/25/2023 2:36 PM EDT Procedure:MM MAMMO DIGITAL VANNESA SCREEN RIGHT ~ Reason for exam: history of breast cancer, conservation therapy. Z12.31-Encounter for screening mammogram for malignant neoplasm of [id number] ~ MM MAMMO DIGITAL VANNESA SCREEN RIGHT [...] for screening mammogram for malignant neoplasm of [id number] ~ MM MAMMO DIGITAL VANNESA SCREEN RIGHT CC and MLO view(s) were taken of the right breast. There are scattered fibroglandular densities. Prior study comparison: Compared with prior studies the most recentbeing 06/20/22, 04/24/21 Status post LEFT mastectomy. Status post reduction mammoplasty RIGHT breast. No new mass, distortion, or suspicious calcification. ~ IMPRESSION: Negative ([id number]-9) ~ RECOMMENDATION: Routine screening mammogram in 1 [...] the next mammogram, in accordance with the [place] [employer] and the Society of Breast Imaging recommendations. us Carlos Manuel Barragan IM MAMMOGRAPHY ORDERABLES Iliana jane Result * DX BONE DENSITY AXIAL SKELETON (06/20/2022 12:58 PM EST) Anatomical Region Laterality Modality Dexa Scan 06/20/2022 Narrative 06/20/2022 4:08 PM EST Indication: The patient is a female age 65 or older who requires a bone density assessment. Study was performed on [employer] 5. Bone Density: Region ?BMD ? T-score ? [...] last exam. Reported by: Alexia Verdin PA-C, [facility], CCD on 06/20/2022 1:56:00 PM. Dany Crouch MD IMG DEXA ORDERABLES Final R esult from Last 3 Months or Most Recently Relevant to Health Maintenance Insurance MEDICARE [place] PART A AND B [facility] [place] [id number] MEDICARE [place] PART A AND B [facility] INS MEDICARE [place] PART A AND B [employer] SENIOR [employer] Advance Directives For more information, please contact: [phone] * Full Code (Latest Code Status on File) Date Activated Date Inactivated Comments 09/29/2018 11:55 AM 10/02/2018 4:47 PM * Full Code Date Activated Date Inactivated Comments 06/02/2015 5:38 PM 06/03/2015 6:37 PM Care Teams Shipping Clerk Relationship Specialty Start Date End Date Carlos Manuel Barragan [address] [place] [address] [address] [place] [address] PCP - General 07/03/10
--- OUTSIDE RECORDS SUMMARY | 2024-05-04 22:50 | XMS_ITS ---
Author Organization [facility] 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 No receptors at this time (not sufficient tissue) Current Oncology Plans No current plan information found. Past Plans No past plan information found. Radiation Treatments * No radiation treatments are documented for this patient in [facility]. Treatments may have been administered in another system. Treatment Summaries Breast cancer (HCC)* Cancer Treatment Plan and Summary Provided by [facility] General Information Patient name Juany Alarcon (home) [phone] (work) Date of 1950 Age 65 y.o. Care Team Medical Oncologist N/A Surgeon Dr Steven Crouch Radiation Oncologist N/A Primary Care Physician Carlos Manuel Barragan, Gynecologic Oncologist N/A Cancer Diagnosis Information Diagnosis date 02/09/2015 Diagnosis and Staging information Invasive Lobular Carcinoma - Stage 2 Tumor markers Estrogen Receptor (ER) positive; Progesterone Receptor (AL) positive; HER2 negative. Location of recurrence N/A Surgical procedure LEFT BREAST CORE BIOPSY & SENTINEL LYMPH NODE DISSECTION. Dr Crouch Background Information Family history/predisposing conditions Cancer-related family history includes Breast Cancer (age ofonset: 54) in her sister; Cancer in her mother and sister; Ovarian Cancer (age of onset: 83) in hermother. Genetics testing N/A Tobacco use History Smoking status ??? Never Smoker Smokeless tobacco ??? Never Used Treatment Summary Additional Therapies Planned Drug Name Comments Date Started (or to start) Arimidex 1mg daily Dr Crouch 04/12/2015 Radiation therapy no Follow-up and Survivorship Care When / How Often? Coordinating Provider Medical Oncology visits N/A N/A Lab tests To evaluate symptoms Dr Crouch Imaging Right screening mammogram annually Dr Crouch Survivorship care provider contacts Breast Cancer Treatment Summary and Survivorship Oncology Treatment History: Breast cancer (HCC) 01/26/2015 - Other Breast MRI. 2nd look ultrasound recommended. Biopsy recommended. 02/09/2015 Initial Diagnosis Breast cancer (HCC) 02/09/2015 - Pathology Left Invasive grade 1 lobular carcinoma. ER 97%, PR49% HER2 negative per FISH 03/03/2015 Surgery LEFT BREAST CORE BIOPSY & SENTINEL LYMPH NODE DISSECTION. Dr Crouch 03/03/2015 - Pathology Left axillary sentinal lymph nodes, dissection: - No metastatic carcinoma in 4 lymph nodes. Invasive grade 1 lobular carcinoma, Fer score 5 (3+1+1), small scattered foci. 04/12/2015 - Other Began taking Arimidex 1mg daily. Other BRCA 1 and 2 negative 03/2015 - Other Oncotype 16 - Not recommended for chemotherapy. No radiation therapy. 06/02/2015 Surgery Left Mastectomy per Dr. Crouch with reconstruction per Dr. Damon 06/02/2015 - Pathology Multicentric and multifocal invasive lobular carcinoma, grade 1. - Tumor greatest dimension (9 cm). LCIS; margins negative Breast Cancer Surveillance Recommendations Patient Surveillance Recommendations Please follow these recommendations when following up with your team of physicians: ??? Surgeon: Follow up every 3-6 months for two or more visits and then annually or as directed by your physician at the [place] or [facility]. ??? Radiation Oncologist: Follow up every 6 months for two visits and then annually or as directed by your Radiation Oncologist at [facility] where you received your treatment or as directed. ??? Oncologist: as directed by Medical Oncologist at the the center where you received your treatment or as directed by your doctor. ??? Primary Care: Follow up annually. ??? Fire Apparatus Sprinkler Inspector: Follow up annually or as directed by Fire Apparatus Sprinkler Inspector. Diagnostic Testing ??? Mammogram: Diagnostic imaging should be performed annually or more often as directed by your Surgeon and/or Radiologist unless bilateral or unilateral mastectomy was performed. ??? Bone Density: Should be performed every one to two years if you are on an Aromatase Inhibitor such as Anastrozole, Femara, or Aromasin. ??? Breast MRI: as directed by Radiologist or Surgeon. Physical exam by your healthcare provider, including breast exam, every 3-6 months for 1 year, thenevery 12 months or as directed by your physician. Self-breast exams monthly Radiologic testing: ??? Mammogram yearly or as ordered by your physician. Mammograms are not indicated for women with breast reconstruction. ??? MRI, PET, CT Scan, chest x-ray, bone scan, ultrasound are recommended for surveillance only when symptoms indicate a need Women on Tamoxifen or Arimidex should have a gynecological exam yearly if the uterus is present or sooner if abnormal bleeding develops. Women who take Tamoxifen should not take Wellbutrin, Prozac orPaxil, if you are prescribed any of these medications along with Tamoxifen please discuss this withyour prescribing Doctors. Tamoxifen is contraindicated in women who require concomitant coumarin-type anticoagulant therapy or in women with a history of deep vein thrombosis or pulmonary embolus (blood clots in the lung). Women who experience ovarian failure (early menopause) secondary to treatment should have monitoring of bone health with a bone mineral density determination (Dexa Scan) at baseline and periodically thereafter. Women who have been prescribed an aromatase inhibitor should have a baseline dexa scan along with adexa scan every other to monitor bone density. *All surveillance recommendations are subject to change with enrollment in a clinical trial Recommendations Self-care plan: What you can do to stay healthy after treatment for breast cancer Cancer treatments may increase your chance of developing other health problems years after you havecompleted treatment. The purpose of this self-care plan is to inform you about what steps you can take to maintain good health after cancer treatment, including coping with side effects of treatment,reducing the risk of cancer returning, and watching for signs of cancer returning or of a new cancer. Keep in mind that every person treated for breast cancer is different and that these recommendations are not intended to be a substitute for the advice of a doctor or other healthcare professional.Please use these recommendations to talk with your doctor and healthcare team about an appropriate follow up care plan for you. You should have a medical history and physical exam that is focused on detecting signs of cancer recurrence or of new cancers as directed by your physician. The frequency of these exams may vary depending on the stage of cancer and other risk factors. If you had breast cancer once, there is a chance that it may come back or spread to other parts of your body. This is important because most recurrent breast cancer is suspected or found by women themselves, and the majority of recurrences are detected between scheduled visits. After treatment, if you feel something isn???t right with your body,see your regular doctor, physician conservation assistant, or nurse practitioner. If what you are feeling is urgent, go to an Urgent Care or Medical Walk-in Clinic. Tell the medical provider you had cancer and show them a copy of your cancer treatment summary. Become aware of your personal breast health, this includes monthly self-breast exams. Signs and symptoms to report for potential local recurrence ??? Change in size, shape or contour of the lumpectomy breast ??? Nipple discharge that is clear or blood tinged ??? New onset of breast pain ??? A new lump ??? Thickening or a lump in breast tissue or on the chest wall after a mastectomy ??? Changes in the skin including dimpling, scaly appearance, rash, redness or discoloration on thebreast or chest wall ??? A lump or thickening in the underarm area ??? Monitoring for potential regional or distant recurrence ??? New lump or thickening in the area above the collarbone ??? Chronic bone pain or tenderness in an area ??? Chest pain with shortness of breath ??? Chronic cough ??? Persistent abdominal pain or abdominal swelling ??? Headaches, dizziness, fainting or rapid changes in vision ??? Increasing fatigue unrelated to treatments ??? Inability to control urine or bowels ??? Persistent nausea or loss of appetite ??? Changes in weight, especially weight loss Potential late effects of treatment ??? After surgery you may experience numbness, weakness, loss of the range of motion and/or swelling (lymphedema) in the affected arm ??? After chemotherapy/biotherapy you may experience fatigue, weight gain, early menopause, numbness and tingling in your hands and feet, cognitive dysfunction, sexual dysfunction, psychosocial distress, osteoporosis, or cardiac dysfunction if you received an anthracycline or trastuzumab ??? After radiation therapy you may experience breast pain, fibrosis in the affected breast, or changes in the shape or size of the affected breast ??? Hormone therapy such as Tamoxifen may cause hot flashes, increased risk of blood clots, uterinecancer or strokes. Aromatase inhibitors may cause increased risk of osteoporosis and bone fractures, hot flashes and arthralgia (pain in joints). LIFE AFTER CANCER TREATMENT Managing fatigue Fatigue is one of the most common complaints of cancer survivors. Here are some ideas to help you manage your fatigue. ??? Plan your day. Be active at the time of day you feel most alert and energetic. ??? Save you energy by planning how you do things. For example sit on a stool when you cook or washdishes. ??? Take short naps or rest breaks ??? Try to go to sleep and wake up at the same time every day ??? Do what you enjoy but try to focus on interests that don???t tire you out. ??? Let others help you. ??? Choose how to spend your energy. ??? Think about joining a support group Emotional difficulties Cancer survivors often experience a variety of positive and negative emotions, including relief, a sense of gratitude to be alive, fear of recurrence, anger, guilt, depression, anxiety, and isolation. Cancer survivors, caregivers, family, and friends may also experience post-traumatic stress disorder, an anxiety disorder that may develop after experiencing an extremely frightening or life-threatening situation. Each person???s post-treatment experience is different. For example, some survivors struggle with negative emotional effects of the cancer while others say that they have a renewed, positive outlook on life because of the cancer. ??? Talk with a healthcare provider about your concerns ??? Think about joining a support group ??? Regular physical exercise Sexuality after breast cancer Breast cancer has changed many things in your life. One of the potential changes may be in the areaof your return to normal sexual function. Breast cancer and its treatment may alter the way you feel about your body, threatening your sense of femininity. Some women may have concerns about their sexual attractiveness to their partner. These feelings are normal. It is important to include your mate when viewing the incisional area even though it may be a difficult time. Remember, you are still the same loving person your mate selected and surgery did not change that. During treatment you may have experienced fatigue and side effects from treatments that may have affected sexual functioning. These are normal interruptions that will resolve after treatments end. Chemotherapy can create additional side effects which occur when ovarian function is affected. This can cause vaginal dryness and lack of sexual desire. A longer period of time may be required for sexual arousal. Guidelines for a Healthy Lifestyle ??? Quit smoking. Research shows that smoking can increase the chances of getting cancer at the same or a different site. ??? Freshstart is a FREE 4-week smoking cessation program developed by the [place] [employer] and offered to you by [facility]. This program is designed to help you take charge of your efforts to quit smoking or using other forms of tobacco. Join today and enjoy the benefits of living a tobacco-free lifestyle. For more information, please call . ??? Cut down on how much alcohol you drink. Research shows that drinking alcohol increases your chances of getting certain types of cancers. ??? Maintain a healthy weight. Eating well and staying active can help you reach a healthy weight and stay there. ??? Eat well. Healthy food choices may help reduce the risk of cancer or recurrence. Talk with yourdoctor or a dietitian to find out about any special dietary needs that you may have. The [place] [employer] and the [place] [employer] have developed similar diet and fitnessguidelines that may help reduce the risk of cancer: o Eat a plant-based diet that includes at least 5-9 servings of fruit and vegetables daily. Try to include beans in your diet, and eat whole grains (such as cereals, breads, and pasta) several times daily. o Choose foods low in fat and salt. ??? Exercise and stay active. Research suggests that staying active after cancer can help lower therisk of recurrence and lead to longer survival. Moderate exercise (walking, biking, swimming) for about 30 minutes every - or almost every - day can: o Reduce anxiety and depression o Improve mood and boost self-esteem o Reduce fatigue, nausea, pain, and diarrhea Local cancer support and contact information: [facility] Nurse Navigator ???s [facility] [place] Javier Roach [facility] [phone] [place] [employer] [phone] www.cancer.org Managecancer.org Managecancer.org provides links to resources that offer financial assistance for those dealing withcancer. Medical bills, medications, legal issues, travel and accommodation costs for treatment and education and employment issues that can create financial hardships. The following resources will help in lightening the financial burden of life with cancer. Cancer Support [place] [phone] Wu Reveles. [phone] www.cancersupport[place].org Backed by evidence that the best cancer care includes social and emotional support, [facility] offers morethan 250 free programs and services each month that are intended to provide non-medical care to individuals and families to support a holistic, patient-active approach to wellness. Cancer Family Care [phone] www.cancerfamilycare.org
--- OUTSIDE RECORDS SUMMARY | 2024-05-04 22:50 | XMS_ITS | Encounter Summary ---
Author Organization [place] [address] Care Team Providers Care Fixer Supervisor Name Role Phone Carlos Manuel Barragan Primary Care Provider Reason for Visit * Auth/Cert/Inpt Specialty Diagnoses [...] Expiration Date Visits Re quested Visits Authorized [id number] 1 1 Encounter Details Date Type Department Care Team (Late st Contact Info) Description 03/22/2024 12:05 PM EDT Ancillary Procedure [facility] [address] [facility] [address] [place] [id number] Nikolas Jha DPM [address] [phone] Social History Tobacco Use Types Packs/Day Years [...] Mitzi Jimenez APRN documented in this encounter Plan of Treatment Upcoming Encounters Date Type Department Care Team (Late st Contact Info) Description 05/24/2024 10:30 AM EST Office Visit [facility] [address] [place] [phone] Nikolas Jha DPM [address] [place] [address] [place] [phone] documented as of this encounter Goals Goal Patient Goal Type Associated Problems Recent Progress Patient-Stated? Author Breast [facility] Breast Health On track( 021 9:11 AM EDT) Maisha Anderson, RN Note: Patient will be compliant with monthly Self Breast Exams and is aware of to who to contact for any unusual or concerning findings. Breast [facility] Breast [facility] No Alexia Kim RN Note: Patient will be compliant with monthly Self Breast Exams and is aware of to who to contact for any unusual or concerning findings. documented as of this encounter Procedures Procedure Name Priority Date/Time Associated Diagnosis Comments FL SURGICAL C-ARM PROCEDURE ANABEL 03/22/2024 10:03 [...] documented as of this encounter Care Teams Fixer Supervisor Relationship Specialty Start Date End Date Carlos Manuel Barragan [address] [place] [address] PCP - General 07/03/10 documented as of this encounter
--- OUTSIDE RECORDS SUMMARY | 2024-05-04 22:51 | XMS_ITS | Encounter Summary ---
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 Procedures DX BONE DENSITY AXIAL SKELETON Dany Crouch MD [address] [place] [address] [address] [place] [address] Phone: tel: fax: Referral ID Status Reason Start Date Expiration Date Visits Re quested Visits Authorized [id number] Closed 11/08/2021 11/08/2022 1 1 Reason for Visit * DEXA (Routine) - Closed Specialty Diagnoses / Procedures Referred By Contac t Referred To Contact Radiology Diagnoses History of breast cancer 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 Procedures DX BONE DENSITY AXIAL SKELETON Dany Crouch MD [address] [place] [address] [address] [place] [address] Phone: tel: fax: Referral ID Status Reason Start Date Expiration Date Visits Re quested Visits Authorized [id number] Closed 11/08/2021 11/08/2022 1 1 Encounter Details Date Type Department Care Team (Latest Contact Info) Description 06/20/2022 12:26 PM EST - 06/20/2022 12:48 PM EST Hospital Encounter [facility] [address] [place] [address] Dany Crouch MD [address] [place] [address] History of breast cancer; Post-menopausal; 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 No / Unsure 06/20/2022 12:22 PM EST documented as of this encounter Functional Status [...] stephon Trejo APRN documented in this encounter Medications at Time of Discharge aspirin 81 mg tabletIndications: per Ortho instructions - resume when off Eliquis Take 81 mg by mouth daily. Cholecalciferol, Vitamin D3, 2,000 unit Oral Capsule Take by mouth daily. cyanocobalamin 100 mcg Oral Tablet Take by mouth daily. metoclopramide HCl (REGLAN) 5 mg Oral Tablet Take 5 mg by mouth 2 times daily. montelukast (SINGULAIR) 10 mg Oral Tablet Take 10 mg by mouth every evening. rosuvastatin (CRESTOR) 10 mg Oral Tablet Take 10 mg by mouth daily. oxybutynin (DITROPAN-XL) 5 mg Oral Tablet Extended Rel 24 hr Take 1 Tablet by mouth daily. 90 Tablet 3 01/31/2022 03/07/2023 documented as of this encounter Discharge Disposition Disposition Code Departure Means Destination Home or Self Care documented in this encounter Plan of Treatment Upcoming Encounters Date Type Department Care Team (Late st Contact Info) Description 05/24/2024 10:30 AM EST Office Visit [facility] [address] [place] [phone] Nikolas Jha [address] [place] [address] [place] [phone] documented as of this encounter Goals [...] Procedure Name Priority Date/Time Associated Diagnosis Comments DX BONE DENSITY AXIAL SKELETON Routine 06/20/2022 12:58 PM EST History of breast cancer 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 Study was performed on Temporal Power 5. Bone Density: Region ?BMD ? T-score [...] last exam. Reported by: Alexia Verdin PA-C, [facility], CCD on 06/20/2022 1:56:00 PM. Dany Crouch MD IMG DEXA ORDERABLES Final R esult documented in this encounter Visit Diagnoses Diagnosis History of breast cancer Personal history of malignant neoplasm of breast Post-menopausal Asymptomatic postmenopausal status (age-related) (natural) [facility] (current) use of aromatase inhibitors documented in this encounter Additional Health Concerns Assessment Noted Time A fall risk assessment has been complete d for the patient 04/26/2019 3:55 PM EST documented as of this encounter Care Teams Ironworker Apprentice Shop Relationship Specialty Start Date End Date Carlos Manuel Barragan [address] [place] [address] PCP - General 07/03/10 documented as of this encounter
--- OUTSIDE RECORDS SUMMARY | 2024-05-04 22:51 | XMS_ITS | Encounter Summary ---
Author Organization [place] [address] Care Team Providers Care Software Design Engineer Name Role Phone Carlos Manuel Barragan Primary Care Provider [phone] Encounter Details Date Type Department Care Team (Latest Contact Info) Description 10/29/2021 12:10 PM EDT Ancillary Procedure [facility] Pod[facility] [address] [place] [phone] Nikolas Jha [facility] [address] [place] [phone] Pain in both feet Discharge Disposition: Home or Self Care Social [...] Assessment Author No 06/03/2015 1:49 PM TRISTIAN Gianni Mitzi stephon Trejo APRN * Does this person have serious difficulty walking or climbing stairs? Answer Date of Assessment Author No 06/03/2015 1:49 PM TRISTIAN Mitzi Archer stephon Trejo APRN * Does this person have difficulty dressing or bathing? Answer Date of Assessment Author No 06/03/2015 1:49 PM TRISTIAN Mitzi Archer stephon Trejo APRN * Because of a physical, mental or emotional condition, does this person have difficulty doing errands alone such as visiting a doctor's office or shopping? Answer Date of Assessment Author No 06/03/2015 1:49 PM TRISTIAN Mitzi Archer stephon Trejo APRN documented as of this encounter Mental Status * Because of a physical, mental or emotional condition, does this person have serious difficulty concentrating, remembering or making decisions? Answer Entry Date Author No 06/03/2015 1:49 PM TRISTIAN Gianni Mitzi stephon Trejo APRN documented in this encounter Discharge Disposition Disposition Code Departure Means Destination Home or Self Care documented in this encounter Plan of Treatment Upcoming Encounters Date Type Department Care Team (Late st Contact Info) Description 05/24/2024 10:30 AM EST Office Visit [facility] [address] [place] [phone] Nikolas Jha [address] [place] [phone] documented as of this encounter Goals [...] Priority Date/Time Associated Diagnosis Comments XR FOOT BILATERAL AP LATERAL AND OBLIQUE STANDING Routine 10/29/2021 12:17 PM EDT Pain in both feet documented in this encounter Results * XR FOOT BILATERAL AP LATERAL AND OBLIQUE STANDING (10/29/2021 12:17 PM EDT) Anatomical Region Laterality Modality Foot Radiographic Lindsey ging Narrative 10/29/2021 8:45 PM EDT Left foot shows no protrusion of the broken K wire to the second third MP joint well embedded in the second and third metatarsals, degenerative changes to the second third MP joint, no acute changes, no fracture or dislocation. Right foot shows degenerative changes scattered throughout her foot, hammertoe deformities second through fifth toes with subluxation of the lesser MP joints. ??No acute changes. ??No fracture or dislocation. us Nikolas Jha DPM [facility] Final Result documented in this encounter Visit Diagnoses Diagnosis Pain in both feet Pain in limb documented in this encounter Additional Health Concerns Assessment Noted Time A fall risk assessment has been complete d for the patient 04/26/2019 3:55 PM EST documented as of this encounter Care Teams Software Design Engineer Relationship Specialty Start Date End Date Carlos Manuel Barragan [address] [place] [address] [facility] [address] PCP - General 07/03/10 documented as of this encounter
--- OUTSIDE RECORDS SUMMARY | 2024-05-04 22:51 | XMS_ITS | Encounter Summary ---
Author Organization [place] [address] Care Team Providers Care Lidar Technician Name Role Phone Carlos Manuel Barragan Primary Care Provider [phone] Reason for Referral * In Office Procedure (Routine) - Closed Specialty Diagnoses / Procedures Referred By Heather santos Referred To Contact Diagnoses Tomlinson neuroma, left Procedures AK DESTRUCT BY NEURO AGENT; PLANTAR DIGITAL NERVE Nikolas Jha DPM [address] [address] Phone: tel: fax: Nikolas Jha DPM [address] [address] Phone: tel: fax: Referral ID Status Reason Start Date Expiration Date Visits Re quested Visits Authorized [id number] Closed 06/19/2023 07/20/2023 1 1 Reason for Visit * Reason Comments Injections left foot Encounter Details Date Type Department Care Team (Late st Contact Info) Description 06/19/2023 1:15 PM EST Office Visit [facility] [address] [place] [phone] Abhijeet Nikolas Neil, DPM [address] [facility] [address] [place] [address], left (Primary Dx) Social History Tobacco Use Types [...] Pressure - - Pulse - - Temperature 36.2 ??C (97.1 ??F) 06/19/2023 1:22 PM ES T Respiratory Rate - - Oxygen Saturation - - Inhaled Oxygen Concentration - - Weight 95 kg (209 lb 6.4 oz) 06/19/2023 1:22 PM EST Height 170.2 cm (5' 7 ) 06/19/2023 1:22 PM EST Body Mass Index 32.8 06/19/2023 1:22 PM EST documented in this encounter Functional Status [...] Progress Notes * Nikolas Jha DPM - 06/19/2023 1:15 PM EST Subjective: Patient ID: Juany Conn is a 73 y.o. female. Chief Complaint: Injections (left foot/) HPI 73 y.o. female complains of Injections (left foot/) Presents for fourth of 6 alcohol sclerosing injections left second and third interspace Tomlinson's neuroma. Past Medical History: Diagnosis Date Anemia when younger only Arthritis knees, hips,back BRCA negative Breast cancer (HCC) 02/09/15 ILC, grade 1. No receptors at this time (not sufficient tissue), left, no radiation, no chemo Encounter for blood transfusion with THR 2 units Hyperlipidemia Hypertension Motion sickness past history when younger Postoperative nausea and vomiting does well with patch behind ear Unspecified sleep apnea cpap at night. does not know setting Wears glasses for reading Current Outpatient Medications on File Prior to Visit Medication Sig Dispense Refill anastrozole (ARIMIDEX) 1 mg Oral Tablet TAKE 1 TABLET EVERY DAY 90 Tablet 0 apixaban (ELIQUIS) 2.5 mg Oral Tablet Take 1 Tab by mouth 2 times daily for 10 days. 20 Tab 0 aspirin 81 mg tablet Take 81 mg by mouth daily. bisoprolol-hydrochlorothiazide (ZIAC) 5-6.25 mg per tablet Take 1 Tablet by mouth daily. calcium polycarbophiL (FIBERCON) 625 mg Oral Tablet Take 625 mg by mouth daily. Cholecalciferol, Vitamin D3, 2,000 unit Oral Capsule Take by mouth daily. cyanocobalamin 100 mcg Oral Tablet Take by mouth daily. etodolac (LODINE) 500 mg Oral Tablet Take 500 mg by mouth 2 times daily. EVENING PRIMROSE OIL ORAL Take by mouth daily. gabapentin (NEURONTIN) 100 mg Oral Capsule 300 mg. 1 HYDROcodone-acetaminophen (NORCO) 7.5-325 mg Oral Tablet Take 1 Tablet by mouth every 6 hours as needed for Acute Pain (R52). metoclopramide HCl (REGLAN) 5 mg Oral Tablet Take 5 mg by mouth 2 times daily. montelukast (SINGULAIR) 10 mg Oral Tablet Take 10 mg by mouth every evening. oxybutynin (DITROPAN-XL) 5 mg Oral Tablet Extended Rel 24 hr TAKE 1 TABLET BY MOUTH DAILY. 90 Tablet 0 oxyCODONE (ROXICODONE) 5 mg Oral Tablet Take 1-2 Tabs by mouth every 4-6 hours as needed 30 Tab 0 potassium chloride SA (K-DUR;KLOR-CON) 20 mEq Oral Tab Sust.Rel. Particle/Crystal Take 20 mEq by mouth daily. rosuvastatin (CRESTOR) 10 mg Oral Tablet Take 10 mg by mouth daily. traMADol (ULTRAM) 50 mg Oral Tablet Take 1-2 Tabs by mouth every 6-8 hours as needed 40 Tab 0 No current facility-administered medications on file prior to visit. Past Surgical History: Procedure Laterality Date BREAST BIOPSY Left 02/07/15 x 4 lymph nodes removed BREAST BIOPSY Left 03/03/2015 BREAST RECONSTRUCTION Left 11/16/2015 LEFT BREAST STAGE 2 RECONSTRUCTION WITH IMPLANT RIGHT BREAST REDUCTION FOR SYMMETRY ; Surgeon: Flaco Damon MD; Location: [facility]; Service: Plastics BREAST REDUCTION SURGERY Right 11/16/2015 Surgeon: Flaco Damon MD; Location: [facility]; Service: Plastics BREAST SURGERY Left 06/02/2015 BREAST RECONSTRUCTION 1ST STAGE WITH EXPANDERS ; Surgeon: Flaco Damon MD; Location: [facility]; Service: General CARPAL TUNNEL RELEASE Bilateral 02/12/2018 BILATERAL CARPAL TUNNEL RELEASE ; Surgeon: Francisco Javier Lepe MD; Location: [facility]; Service: Hand CHOLECYSTECTOMY COLONOSCOPY DENTAL SURGERY wisdom teeth extracted FOOT SURGERY Left 10/05/2010 hammertoes HIP SURGERY 2009 right total KNEE SURGERY 2007 right TKR TONSILLECTOMY TOTAL KNEE ARTHROPLASTY Left 09/29/2018 LEFT TOTAL KNEE ARTHROPLASTY; Surgeon: Brian Newman MD; Location: [facility]; Service: Orthopedics Family History Problem Relation Age of Onset [...] Social History Narrative Not on file Social Determinants of Health Financial Resource Strain: Not on file Food Insecurity: Not on file Transportation Needs: Not on file Physical Activity: Not on file Stress: Not on file Social Connections: Not on file Intimate Partner Violence: Not on file Housing Stability: Not on file Review of Systems Eyes: Positive for visual disturbance (wears glasses). All other systems reviewed and are negative. Objective: Vitals: 06/19/23 1322 Temp: 97.1 ??F (36.2 ??C) TempSrc: Forehead Weight: 209 lb 6.4 oz (95 kg) Height: 5' 7 (1.702 m) Body mass index is 32.8 kg/m??. No results found for: HGBA1C Physical Exam Improved, less pain. Assessment and Plan: Diagnoses and all orders for this visit: Tomlinson neuroma, left - AK DESTRUCT BY NEURO AGENT; PLANTAR DIGITAL NERVE Fourth of 6 alcohol sclerosing injection administered left second and third intermetatarsal space Tomlinson's neuroma. Tolerated well. Follow-up in 2 weeks. No follow-ups on file. documented in this encounter Plan of Treatment Upcoming Encounters Date Type Department Care Team (Late st Contact Info) Description 05/24/2024 10:30 AM EST Office Visit [facility] [place] [address] [place] [address] [address] [place] [address] Nikolas Jha DPM [address] [place] [phone] Scheduled Orders Name Type Priority Associated Diagnoses Orde r Schedule AK DESTRUCT BY NEURO AGENT; PLANTAR DIGITAL NERVE AK Charge Routine Tomlinson neuroma, left Ordered: 06/20/2023 documented as of this encounter Goals Goal [...] as of this encounter Visit Diagnoses Diagnosis Tomlinson neuroma, left- Primary documented in this encounter Additional Health Concerns Assessment Noted Time A fall risk assessment has been complete d for the patient 04/26/2019 3:55 PM EST documented as of this encounter Care Teams Lidar Technician Relationship Specialty Start Date End Date Carlos Manuel Barragan [address] [place] [address] [address] [place] [address] PCP - General 07/03/10 documented as of this encounter
--- OUTSIDE RECORDS SUMMARY | 2024-05-04 22:51 | XMS_ITS | Encounter Summary ---
Author Organization [facility] [place] [address] Care Team Providers Care Coremaking Machine Operator Name Role Phone Carlos Manuel Barragan Primary Care Provider [phone] Encounter Details Date Type Department Care Team (Latest Contact Info) Description 05/03/2023 Travel Social History Tobacco Use Types Packs/Day [...] TRISTIAN Gianni Mitzi stephon Trejo APRN * Because of a physical, mental or emotional condition, does this person have difficulty doing errands alone such as visiting a doctor's office or shopping? Answer Date of Assessment Author No 06/03/2015 1:49 PM Mitzi iJmenez stephon Trejo APRN documented as of this encounter Mental Status * Because of a physical, mental or emotional condition, does this person have serious difficulty concentrating, remembering or making decisions? Answer Entry Date Author No 06/03/2015 1:49 PM TRISTIAN Mitzi Archer stephon Trejo APRN documented in this encounter Plan of Treatment Upcoming Encounters Date Type Department Care Team (Late st Contact Info) Description 05/24/2024 10:30 AM EST Office Visit [facility] [address] [place] [phone] Nikolas Jha Mitzi [address] [place] [address] [address] [place] [phone] documented as of this encounter Goals Goal Patient Goal Type Associated Problems Recent Progress Patient-Stated? Author Breast [facility] Breast Health On track( 021 9:11 AM EDT) Maisha Anderson, CRISTOBAL Note: Patient will be compliant with monthly Self Breast Exams and is aware of to who to contact for any unusual or concerning findings. Breast [facility] Breast [facility] No Alexia Kim RN Note: Patient [...] documented as of this encounter Care Teams Coremaking Machine Operator Relationship Specialty Start Date End Date Carlos Manuel Barragan [address] [facility] [address] [place] [address] PCP - General 07/03/10 documented as of this encounter
--- OUTSIDE RECORDS SUMMARY | 2024-05-04 22:51 | XMS_ITS | Encounter Summary ---
Author Organization [place] [address] Care Team Providers Care Head Of Visual Merchandising Name Role Phone Carlos Manuel Barragan Primary Care Provider [phone] Reason for Referral * Mammography (Routine) - Closed Specialty Diagnoses / Procedures Referred By Heather santos Referred To Contact Radiology Diagnoses Encounter for screening mammogram for malignant neoplasm of breast Procedures MM MAMMO DIGITAL VANNESA SCREEN RIGHT MM MAMMO DIGITAL SCREENING AUG W CAD RT MM MAMMO DIGITAL VANNESA SCREEN BILAT Adrian Marshall MD Referral ID Status Reason Start Date Expiration Date Visits Re quested Visits Authorized [id number] Closed 03/18/2022 03/10/2024 1 1 Reason for Visit * Reason Comments Gynecologic Exam Encounter Details Date Type Department Care Team (Latest Contact Info) Description 03/18/2022 1:40 PM EDT Office Visit [facility] [address] [place] [phone] dArian Marshall MD Well female exam with routine gynecological exam (Primary Dx); Encounter for screening mammogram for malignant neoplasm of breast; Personal history of breast cancer Social History Tobacco Use Types Packs/Day Years [...] Sign Reading Time Taken Comments Blood Pressure 120/80 03/18/2022 1:57 PM EDT Pulse - - Temperature - - Respiratory Rate - - Oxygen Saturation - - Inhaled Oxygen Concentration - - Weight 97.7 kg (215 lb 6.4 oz) 03/18/2022 1:57 P M EDT Height 170.7 cm (5' 7.2 ) 03/18/2022 1:57 PM EDT Body Mass Index 33.54 03/18/2022 1:57 PM EDT documented in this encounter Functional [...] documented in this encounter Progress Notes * Adrian Marshall MD - 03/18/2022 1:40 PM EDT Chief Complaint Patient presents with ??? Gynecologic Exam History of Present Illness Juany Conn presents for an annual exam. She has no complaints. ROS completed and was normal. She denies pelvic pain and vaginal discharge. She has no GI or complaints. She is menopausal and denies symptoms. She has had a left mastectomy with reconstruction. Mammogramis due in late March. Review of Systems A review of systems is negative or as per HPI Physical Exam Vitals: 03/18/22 1357 BP: 120/80 Weight: 215 lb 6.4 oz (97.7 kg) Height: 5' 7.2 (1.707 m) HEENT: WNL Neck : Supple and without masses Chest : Symmetric excursion. Breast : No palpable masses are noted bilaterally. There is no axillary adenopathy. The patient denies nipple discharge. Heart : Regular rate and rhythm without murmurs, knocks or rubs Lungs : CTA bilaterally without wheezes rales or rhonchi Abd : Soft and nontender without palpable masses or organomegaly There is no rebound or guarding There is no hernia Pelvic : Uterus is midline and normal size without palpable adnexal masses. Cervix is normal without lesions or discharge. Uterus is mobile and not tender. The ovaries are normal bilaterally. There is no adnexal tenderness, organomegaly or nodularity The vagina and vulva are normal. There are no pigmentations or leukoplakic lesions on the vulva. The vaginal sutton are well supported and there is normal discharge Urethra and anus appear normal without masses, prolapse or evidence of hemorrhoids Labs No results found for: WBC, HGB, HCT, PLT Lab Results Component Value Date CHOLESTEROL 200 05/24/2015 Lab Results Component Value Date HDL 61 05/24/2015 Lab Results Component Value Date LDLCALC 118 (H) 05/24/2015 Lab Results Component Value Date TRIG 104 05/24/2015 No results found for: CHOLHDL No results found for: TSH, FREET4 No components found for: LFSH, LLH Assessment and Plan Juany was seen today for gynecologic exam. Diagnoses and all orders for this visit: Well female exam with routine gynecological exam Encounter for screening mammogram for malignant neoplasm of breast Personal history of breast cancer documented in this encounter Plan of Treatment Upcoming Encounters Date Type Department Care Team (Late st Contact Info) Description 05/24/2024 10:30 AM EST Office Visit [facility] [place] [address] [place] [address] Abhijeet Nikolas Trejo, DPMitzi [address] [facility] [address] [place] [address] documented as of this encounter Goals Goal Patient Goal Type Associated Problems Recent Progress Patient-Stated? Author [facility] Health On track( 021 9:11 AM EDT) Maisha Anderson, RN Note: Patient will be compliant with monthly Self Breast Exams and is aware of to who to contact for any unusual or concerning findings. [facility] Alexia Williamson, CRISTOBAL Note: Patient will be compliant with monthly Self Breast Exams and is aware of to who to contact for any unusual or concerning findings. documented as of this encounter Procedures Procedure Name Priority Date/Time Associated Diagnosis Comments FUR DRUMMER CYTOLOGY REQUEST (PAP ONLY) Routine 03/18/2022 2:35 PM EDT Well female exam with routine gynecological exam [facility] FUR DRUMMER CYTOLOGY ORDER Routine 03/18/2022 2:35 PM EDT Well female exam with routine gynecological exam documented in this encounter Results * MM MAMMO DIGITAL VANNESA SCREEN RIGHT (06/20/2022 1:03 PM EST) Anatomical Region Laterality Modality Breast Right Mammography 06/20/2022 1:08 PM EST Impressions 06/20/2022 1:08 PM EST Negative ??([id number]) ~ RECOMMENDATION: Routine screening mammogram in 1 [...] the next mammogram, in accordance with the [employer] and the Society of Breast Imaging recommendations. Narrative 06/20/2022 1:08 PM EST Procedure:MM MAMMO DIGITAL VANNESA SCREEN RIGHT ~ Reason for exam: history of breast cancer, mastectomy. Z12.31-Encounter for screening mammogram for malignant neoplasm of [id number]-CM ~ MM MAMMO DIGITAL VANNESA SCREEN RIGHT CC and MLO view(s) were taken of the right breast. Technologist: RT Susanna There are scattered fibroglandular densities. Prior study comparison: Compared with prior studies the most recent being 04/24/21, 03/27/20 No mammographic evidence of malignancy. ~ Procedure Note Rocio Damon MD - 06/20/2022 Procedure:MM MAMMO DIGITAL VANNESA SCREEN RIGHT ~ Reason for exam: history of breast cancer, mastectomy. Z12.31-Encounter for screening mammogram for malignant neoplasm of [id number]-NZM-58-CM ~ MM MAMMO DIGITAL VANNESA SCREEN RIGHT CC and MLO view(s) were taken of the right breast. Technologist: RT Susanna There are scattered fibroglandular densities. Prior study comparison: Compared with prior studies the most recentbeing 04/24/21, 03/27/20 No mammographic evidence of malignancy. ~ IMPRESSION: Negative ([id number]) ~ RECOMMENDATION: Routine screening mammogram in 1 [...] the next mammogram, in accordance with the [employer] and the Society of Breast Imaging recommendations. us Adrian Marshall MD IM MAMMOGRAPHY ORDERABLES F inal Result * FUR DRUMMER CYTOLOGY REQUEST (PAP ONLY) (03/18/2022 2:35 PM EDT) CASE REPORT Gynecologic Cytology Report ? Case: [id number] ? Authorizing Provider: ??Adrian Marshall MD ?Collected: ? 03/18/2022 1435 ? Ordering Location: ? [facility] ? Received: ?03/18/2022 1435 ? First Screen: ?Rafat Osman, ? CT ? Specimen: ?LIQUID-BASED PAP - CERVICAL/ENDOCERV ICAL, Cervix, Endocervical ? 03/20/2022 10:36 AM EDT [facility] PAP FINAL DIAGNOSIS Negative for intraepithelial lesion or malignancy 03/20/2022 10:36 AM EDT [facility] OSCOPIC DESCRIPTION Microscopic examination is performed and the findings corroborate the diagnosis. 03/20/2022 10:36 AM EDT [facility] PAP SMEAR ADEQUACY Satisfactory for evaluation 03/20/2022 10:36 AM EDT [facility] ENDOCERVICAL T-ZONE Transformation Zone Absent. This is not unusual in a post-menopausal woman. 03/20/2022 10:36 AM EDT [facility] EMBEDDED IMAGES 10:36 AM EDT [facility] PAP DISCLAIMER The Pap Smear is a screening test that aids in the detection of cervical cancer and cancer precursors. Both false positive and false negative results can occur. The test should be used at regular intervals, and positive results should be confirmed before definitive therapy. Processed using the ThinPrep [employer] Automated cytology screening device ([employer]). 03/20/2022 10:36 AM EDT [facility] Thin Prep ENDOCERVICAL STRUCTURE / Unknown 03/18/2022 2:35 PM EDT 03/18/2022 2:35 PM EDT us Adrian Marshall MD CYTOLOGY ORDERABLES Final Re sult [facility] [address] [place] [address] documented in this encounter Visit Diagnoses Diagnosis Well female exam with routine gynecological exam- Primary Routine gynecological examination Encounter for screening mammogram for malignant neoplasm of breast Other screening mammogram Personal history of breast cancer Personal history of malignant neoplasm of breast Encounter for screening mammogram for malignant neoplasm of breast Other screening mammogram documented in this encounter Additional Health Concerns Assessment Noted Time A fall risk assessment has been complete d for the patient 04/26/2019 3:55 PM EST documented as of this encounter Care Teams Head Of Visual Merchandising Relationship Specialty Start Date End Date Carlos Manuel Barragan [address] [place] [address] [address] [place] [address] PCP - General 07/03/10 documented as of this encounter
--- OUTSIDE RECORDS SUMMARY | 2024-05-04 22:51 | XMS_ITS | Encounter Summary ---
Author Organization [facility] [address] Care Team Providers Care Interviewing Clerk Name Role Phone Carlos Manuel Barragan Primary Care Provider [phone] Reason for Referral * In Office Procedure (Routine) - Authorization Not Needed Specialty Diagnoses / Procedures Referred By Heather santos Referred To Contact Podiatry Diagnoses Tomlinson neuroma, left Left foot pain Procedures NC DESTRUCT BY NEURO AGENT; PLANTAR DIGITAL NERVE Nikolas Jha DPM [address] [id number] Phone: tel: fax: Nikolas Jha DPM [address] [phone] Phone: tel: fax: Referral ID Status Reason Start Date Expiration Date Visits Requested Visits Authorized [id number] Authorization Not Needed 07/03/2023 07/02/2024 1 1 Reason for Visit * Reason Comments Injections left foot * In Office Procedure (Routine) - Authorization Not Needed Specialty Diagnoses / Procedures Referred By Heather santos Referred To Contact Podiatry Diagnoses Tomlinson neuroma, left Left foot pain Procedures NC DESTRUCT BY NEURO AGENT; PLANTAR DIGITAL NERVE Nikolas Jha, DPM [address] [address] Phone: tel: fax: Nikolas Jha, DPM [address] [address] Phone: tel: fax: Referral ID Status Reason Start Date Expiration Date Visits Requested Visits Authorized [id number] Authorization Not Needed 07/03/2023 07/02/2024 1 1 Encounter Details Date Type Department Care Team (Late st Contact Info) Description 07/03/2023 3:30 PM EST Office Visit [facility] [address] [place] [phone] Nikolas Jha, DPM [address] [phone] Tomlinson neuroma, left (Primary Dx); Left foot pain Social History Tobacco Use Types Packs/Day [...] - Pulse - - Temperature 36.3 ??C (97.4 ??F) 07/03/2023 4:08 PM ES T Respiratory Rate - - Oxygen Saturation - - Inhaled Oxygen Concentration - - Weight 95 kg (209 lb 6.4 oz) 07/03/2023 4:08 PM EST Height 170.2 cm (5' 7 ) 07/03/2023 4:08 PM EST Body Mass Index 32.8 07/03/2023 4:08 PM EST documented in this encounter Functional Status * Is the person deaf or does he/she have serious difficulty hearing? Answer Date of Assessment Author No 06/03/2015 1:49 PM TRISTIAN KelleysonMitzi APRN * Is the person blind or does he/she have serious difficulty seeing even when wearing glasses? Answer Date of Assessment Author No 06/03/2015 1:49 PM TRISTIAN GianniMitzi APRN * Does this person have serious [...] Progress Notes * Nikolas Jha, SURENDRA - 07/03/2023 3:30 PM EST Images from the original note were not included. Subjective: Patient ID: Juany Conn is a 73 y.o. female. Chief Complaint: Injections (left foot/) HPI 73 y.o. female complains of Injections (left foot/) Presents for fifth of 6 alcohol sclerosing injections left second [...] tablet Take 1 Tablet by mouth daily. Cholecalciferol, Vitamin D3, 2,000 [...] TABLET BY MOUTH DAILY. 90 Tablet 0 potassium chloride SA (K-DUR;KLOR-CON) 20 mEq Oral Tab Sust.Rel. Particle/Crystal Take 20 mEq by mouth daily. rosuvastatin (CRESTOR) 10 mg Oral Tablet Take 10 mg by mouth daily. anastrozole (ARIMIDEX) 1 mg Oral Tablet TAKE 1 TABLET EVERY DAY 90 Tablet 0 apixaban (ELIQUIS) 2.5 mg Oral Tablet Take 1 Tab by mouth 2 times daily for 10 days. 20 Tab 0 calcium polycarbophiL (FIBERCON) 625 mg Oral Tablet Take 625 mg by mouth daily. etodolac (LODINE) 500 mg Oral Tablet Take 500 mg by mouth 2 times daily. EVENING PRIMROSE OIL ORAL Take by mouth daily. gabapentin (NEURONTIN) 100 mg Oral Capsule 300 mg. 1 HYDROcodone-acetaminophen (NORCO) 7.5-325 mg Oral Tablet Take 1 Tablet by mouth every 6 hours as needed for Acute Pain (R52). oxyCODONE (ROXICODONE) 5 mg Oral Tablet Take 1-2 Tabs by mouth every 4-6 hours as needed 30 Tab 0 traMADol (ULTRAM) 50 mg Oral Tablet Take [...] SYMMETRY ; Surgeon: Flaco Damon MD; Location: [facility]; Service: Plastics BREAST REDUCTION SURGERY Right 11/16/2015 Surgeon: Flaco Damon MD; Location: [facility]; Service: Plastics BREAST SURGERY Left 06/02/2015 BREAST RECONSTRUCTION 1ST STAGE WITH EXPANDERS ; Surgeon: Flaco Damon MD; Location: [facility] OR; Service: General CARPAL TUNNEL RELEASE Bilateral 02/12/2018 BILATERAL CARPAL TUNNEL RELEASE ; Surgeon: Francisco Javier Lepe MD; Location: [facility]; Service: Hand CHOLECYSTECTOMY COLONOSCOPY DENTAL SURGERY wisdom teeth extracted FOOT SURGERY Left 10/05/2010 hammertoes HIP SURGERY 2009 right total KNEE SURGERY 2008 right TKR TONSILLECTOMY TOTAL KNEE ARTHROPLASTY Left 09/29/2018 LEFT TOTAL KNEE ARTHROPLASTY; Surgeon: Brian Newman MD; Location: [facility]; Service: Orthopedics Family History [...] systems reviewed and are negative. Objective: Vitals: 07/03/23 1608 Temp: 97.4 ??F (36.3 ??C) TempSrc: Forehead Weight: 209 lb 6.4 oz (95 kg) Height: 5' 7 (1.702 m) Body mass index is 32.8 kg/m??. No results found for: HGBA1C Physical Exam Constitutional: Appearance: Normal appearance. She is well-developed. HENT: Head: Normocephalic and atraumatic. Cardiovascular: Pulses: Dorsalis pedis pulses are 2+ on the right side and 2+ on the left side. Posterior tibial pulses are 2+ on the right side and 2+ on the left side. Pulmonary: Effort: Pulmonary effort is normal. Musculoskeletal: Right foot: Normal range of motion. No swelling, deformity, tenderness or crepitus. Left foot: Normal range of motion. No swelling, deformity, tenderness or crepitus. Feet: Feet: Comments: Pain and + Darwin's sign 2nd and 3rd interspace. Pain 2nd and 3rd MP joints. Skin: General: Skin is warm and dry. Coloration: Skin is not pale. Findings: No erythema or rash. Neurological: Mental Status: She is alert and oriented to person, place, and time. Psychiatric: Behavior: Behavior normal. Thought Content: Thought content normal. Judgment: Judgment normal. Assessment and Plan: Diagnoses and all orders for this visit: Tomlinson neuroma, left - NC DESTRUCT BY NEURO AGENT; PLANTAR DIGITAL NERVE Left foot pain - NC DESTRUCT BY NEURO AGENT; PLANTAR DIGITAL NERVE #5 of 6 alcohol sclerosing injection administered left second and third intermetatarsal space Tomlinson's neuroma. Patient tolerated injection well. Return in about 2 weeks (around 07/17/2023), or if symptoms worsen or fail to improve. Note written by Amy Laird Clinical Scribe, acting as scribe for Nikolas Jha DPM . I have reviewed this note and it accurately reflects my work and decisions made during this visit Nikolas Jha DPM. documented in this encounter Plan of Treatment Upcoming Encounters Date Type Department Care Team (Late st Contact Info) Description 05/24/2024 10:30 AM EST Office Visit [facility] [address] [place] [address] Nikolas Jha DPM [address] [place] [address] [address] [place] [phone] Scheduled Orders Name Type Priority Associated Diagnoses Orde r Schedule NC DESTRUCT BY NEURO AGENT; PLANTAR DIGITAL NERVE NC Charge Routine Tomlinson neuroma, left Left foot pain Ordered: 07/03/2023 documented as of this encounter Goals Goal Patient Goal Type Associated Problems Recent Progress Patient-Stated? Author Breast [facility] Breast Health On track( 021 9:11 AM EDT) Maisha Anderson, RN Note: Patient will be compliant with monthly Self Breast Exams and is aware of to who to contact for any unusual or concerning findings. Breast [facility] Breast Health No Alexia Kim RN Note: Patient will be compliant with monthly Self Breast Exams and is aware of to who to contact for any unusual or concerning findings. documented as of this encounter Visit Diagnoses Diagnosis Tomlinson neuroma, left- Primary Left foot pain Pain in limb documented in this encounter Additional Health Concerns Assessment Noted Time A fall risk assessment has been complete d for the patient 04/26/2019 3:55 PM EST documented as of this encounter Care Teams Interviewing Clerk Relationship Specialty Start Date End Date Carlos Manuel Barragan [address] [place] [address] [place] [address] PCP - General 07/03/10 documented as of this encounter
--- OUTSIDE RECORDS SUMMARY | 2024-05-04 22:51 | XMS_ITS | Encounter Summary ---
Author Organization [facility] [place] [address] Care Team Providers Care Lpn Rn Name Role Phone Carlos Manuel Barragan Primary Care Provider [phone] Reason for Referral * Mammography (Routine) - Pending Review Specialty Diagnoses / Procedures Referred By Heather santos Referred To Contact Radiology Diagnoses Encounter for screening mammogram for malignant neoplasm of breast Procedures MM MAMMO DIGITAL VANNESA SCREEN RIGHT LaurelCarlos Manuel santos [address] [place] [address] [address] [place] [address] Phone: tel: fax: Referral ID Status Reason Start Date Expiration Date V isits Requested Visits Authorized [id number] Pending Review 07/29/2023 07/28/2025 1 1 Reason for Visit * Mammography (Routine) - Pending Review Specialty Diagnoses / Procedures Referred By Heather santos Referred To Contact Radiology Diagnoses Encounter for screening mammogram for malignant neoplasm of breast Procedures MM MAMMO DIGITAL VANNESA SCREEN RIGHT LaurelCarlos Manuel chowdhury [address] [place], [place] [address] [address] [place] [address] Phone: tel: fax: Referral ID Status Reason Start Date Expiration Date V isits Requested Visits Authorized [id number] Pending Review 07/29/2023 07/28/2025 1 1 Encounter Details Date Type Department Care Team (Latest Contact Info) Description 08/25/2023 12:51 PM EDT - 08/25/2023 11:59 PM EDT Hospital Encounter [facility] Mammography [address] [place] [address] Carlos Manuel Barragan [facility] [place] [facility] [address] [facility] [address] Encounter for screening mammogram for malignant neoplasm of breast Discharge Disposition: Home or Self Care Social [...] Entry Date Author No 06/03/2015 1:49 PM EST Mitzi Archer APRN documented in this encounter Medications at Time of Discharge aspirin 81 mg tabletIndications:p er Ortho instructions - resume when off Eliquis [...] Tablet Take 10 mg by mouth daily. documented as of this encounter Discharge Disposition Disposition Code Departure Means Destination Home or Self Care documented in this encounter Plan of Treatment Upcoming Encounters Date Type Department Care Team (Late st Contact Info) Description 05/24/2024 10:30 AM EST Office Visit [facility] [address] [place] [phone] Nikolas Jha, [address] [place] [phone] documented as of this encounter Goals Goal Patient Goal Type Associated Problems Recent Progress Patient-Stated? Author [facility] On track( 021 9:11 AM EDT) No Maisha Kirk, RN Note: Patient will be compliant with monthly Self Breast Exams and is aware of to who to contact for any unusual or concerning findings. Breast [facility] No Alexia Kim RN Note: Patient will be compliant with monthly Self Breast Exams and is aware of to who to contact for any unusual or concerning findings. documented as of this encounter Procedures Procedure Name Priority Date/Time Associated Diagnosis Comments MM MAMMO DIGITAL VANNESA SCREEN RIGHT Routine 08/25/2023 1:12 PM EDT Encounter for screening mammogram for malignant neoplasm of breast documented in this encounter Results * MM MAMMO DIGITAL VANNESA SCREEN RIGHT (08/25/2023 1:12 PM EDT) Anatomical Region Laterality Modality Breast Right Mammography 08/25/2023 2:36 PM EDT Impressions 08/25/2023 2:36 PM EDT Negative ??([id number]) ~ RECOMMENDATION: Routine screening mammogram in 1 [...] the next mammogram, in accordance with the [employer] and the Society of Breast Imaging recommendations. Narrative 08/25/2023 2:36 PM EDT Procedure:MM MAMMO DIGITAL VANNESA SCREEN RIGHT ~ Reason for exam: history of breast cancer, conservation therapy. Z12.31-Encounter for screening mammogram for malignant neoplasm of [id number] ~ MM MAMMO DIGITAL VANNESA SCREEN RIGHT [...] for screening mammogram for malignant neoplasm of [id number] ~ MM MAMMO DIGITAL VANNESA SCREEN RIGHT CC and MLO view(s) were taken of the right breast. There are scattered fibroglandular densities. Prior study comparison: Compared with prior studies the most recentbeing 06/20/22, 04/24/21 Status post LEFT mastectomy. Status post reduction mammoplasty RIGHT breast. No new mass, distortion, or suspicious calcification. ~ IMPRESSION: Negative ([id number]) ~ RECOMMENDATION: Routine screening mammogram in 1 [...] the next mammogram, in accordance with the [employer] and the Society of Breast Imaging recommendations. Carlos Manuel Barragan [facility] MAMMOGRAPHY ORDERABLES Iliana jane Result documented in this encounter Visit Diagnoses Diagnosis Encounter for screening mammogram for malignant neoplasm of breast Other screening mammogram documented in this encounter Additional Health Concerns Assessment Noted Time A fall risk assessment has been complete d for the patient 04/26/2019 3:55 PM EST documented as of this encounter Care Teams Lpn Rn Relationship Specialty Start Date End Date Carlos Manuel Barragan [address] [place] [address] [address] [place] [address] PCP - General 07/03/10 documented as of this encounter
--- OUTSIDE RECORDS SUMMARY | 2024-05-04 22:51 | XMS_ITS | Encounter Summary ---
Author Organization [place] [address] Care Team Providers Care Deputy Commonwealth'S Attorney Name Role Phone Carlos Manuel Barragan Primary Care Provider [phone] Reason for Referral * In Office Procedure (Routine) - Authorization Not Needed Specialty Diagnoses / Procedures Referred By Heather santos Referred To Contact Podiatry Diagnoses Henderson neuroma, left Procedures OK DESTRUCT BY NEURO AGENT; PLANTAR DIGITAL NERVE Nikolas Jha DPM [address] [place] [address] Phone: tel: fax: Nikolas Jha DPM [address] Phone: tel: fax: Referral ID Status Reason Start Date Expiration Date Visits Requested Visits Authorized [id number] Authorization Not Needed 06/05/2023 06/04/2024 1 1 Reason for Visit * Reason Comments Injections L foot 3 injection * In Office Procedure (Routine) - Authorization Not Needed Specialty Diagnoses / Procedures Referred By Heather santos Referred To Contact Podiatry Diagnoses Henderson neuroma, left Procedures OK DESTRUCT BY NEURO AGENT; PLANTAR DIGITAL NERVE Nikolas Jha, DPM [address] [address] Phone: tel: fax: Nikolas Jha, DPM [address] [address] Phone: tel: fax: Referral ID Status Reason Start Date Expiration Date Visits Requested Visits Authorized [id number] Authorization Not Needed 06/05/2023 06/04/2024 1 1 Encounter Details Date Type Department Care Team (Late st Contact Info) Description 06/05/2023 11:00 AM EST Office Visit [facility] [address] [place] [phone] Nikolas Jha, DPM [address] [phone] Left foot pain (Primary Dx); Henderson neuroma, left Social History Tobacco Use Types Packs/Day Years Used Date Smoking Tobacco: Never Smokeless Tobacco: Never Tobacco Cessation:Counseling Given: Not Answered Alcohol Use Standard Drinks/Week Comments Yes 0 [...] Pressure - - Pulse - - Temperature 36.4 ??C (97.6 ??F) 06/05/2023 10:[address] Respiratory Rate - - Oxygen Saturation - - Inhaled Oxygen Concentration - - Weight 94 kg (207 lb 3.2 oz) 06/05/2023 10:42 AM EST Height 170.2 cm (5' 7 ) 06/05/2023 10:42 AM EST Body Mass Index 32.45 06/05/2023 10:42 AM EST documented in this encounter Functional [...] 06/03/2015 1:49 PM TRISTIAN KelleysonMitzi APRN * Does this person have difficulty [...] Progress Notes * Nikolas Jha, SURENDRA - 06/05/2023 11:00 AM EST Images from the original note were not included. Subjective: Patient ID: Juany Conn is a 73 y.o. female. Chief Complaint: Injections (L foot 3 injection ) HPI 73 y.o. female complains of Injections (L foot 3 injection ) Patient presents for the third alcohol sclerosing injection for henderson's neuroma. Past Medical History: Diagnosis Date Anemia [...] tablet Take 81 mg by mouth daily. Cholecalciferol, [...] Oral Tablet TAKE 1 TABLET EVERY DAY (Patient not taking: Reported on 05/22/2023) 90 Tablet 0 apixaban (ELIQUIS) 2.5 mg Oral Tablet Take 1 Tab by mouth 2 times daily for 10 days. (Patient not taking: Reported on 10/20/2018) 20 Tab 0 bisoprolol-hydrochlorothiazide (ZIAC) 5-6.25 mg per tablet Take 1 Tab by mouth daily. (Patient not taking: Reported on 06/05/2023) calcium polycarbophiL (FIBERCON) 625 mg Oral Tablet Take 625 mg by mouth daily. (Patient not taking: Reported on 05/22/2023) etodolac (LODINE) 500 mg Oral Tablet Take 500 mg by mouth 2 times daily. (Patient not taking: Reported on 05/22/2023) EVENING PRIMROSE OIL ORAL Take by mouth daily. (Patient not taking: Reported on 05/22/2023) gabapentin (NEURONTIN) 100 mg Oral Capsule 300 mg. (Patient not taking: Reported on 05/22/2023) 1 HYDROcodone-acetaminophen (NORCO) 7.5-325 mg Oral Tablet Take 1 Tab by mouth every 6 hours as needed for Acute Pain (R52). (Patient not taking: Reported on 05/22/2023) oxyCODONE (ROXICODONE) 5 mg Oral Tablet Take 1-2 Tabs by mouth every 4-6 hours as needed (Patient not taking: Reported on 07/15/2019) 30 Tab 0 traMADol (ULTRAM) 50 mg Oral Tablet Take 1-2 Tabs by mouth every 6-8 hours as needed (Patient not taking: Reported on 10/20/2018) 40 Tab 0 No current facility-administered medications on file prior to visit. Past Surgical History: Procedure Laterality Date BREAST BIOPSY Left 02/07/15 x 4 lymph nodes removed BREAST BIOPSY Left 03/03/2015 BREAST RECONSTRUCTION Left 11/16/2015 LEFT BREAST STAGE 2 RECONSTRUCTION WITH IMPLANT RIGHT BREAST REDUCTION FOR SYMMETRY ; Surgeon: Flaco Damon MD; Location: [facility]; Service: Plastics BREAST REDUCTION SURGERY Right 11/16/2015 Surgeon: Flaco Damon MD; Location: [facility]; Service: Plastics BREAST SURGERY Left 06/02/2015 BREAST RECONSTRUCTION 1ST STAGE WITH EXPANDERS ; Surgeon: Flaco Damon MD; Location: [facility] OR; Service: General CARPAL TUNNEL RELEASE Bilateral 02/12/2018 BILATERAL CARPAL TUNNEL RELEASE ; Surgeon: Francisco Javier Lepe MD; Location: [facility]; Service: Hand CHOLECYSTECTOMY COLONOSCOPY DENTAL SURGERY wisdom teeth extracted FOOT SURGERY Left 10/05/2010 hammertoes HIP SURGERY 2009 right total KNEE SURGERY 2008 right TKR TONSILLECTOMY TOTAL KNEE ARTHROPLASTY Left 09/29/2018 LEFT TOTAL KNEE ARTHROPLASTY; Surgeon: Brian Newman MD; Location: [facility]; Service: Orthopedics Family History Problem [...] Review of Systems Eyes: Positive for visual disturbance. All other systems reviewed and are negative. Objective: Vitals: 01/11/24 1042 Temp: 97.6 ??F (36.4 ??C) TempSrc: Forehead Weight: 207 lb 3.2 oz (94 kg) Height: 5' 7 (1.702 m) Body mass index is 32.45 kg/m??. No results found for: HGBA1C Physical [...] Diagnoses and all orders for this visit: Left foot pain Henderson neuroma, left - OK DESTRUCT BY NEURO AGENT; PLANTAR DIGITAL NERVE States some improvement. Alcohol sclerosing injection #3 of 6 administered to the left second and third interspace for henderson's neuroma. Patient tolerated injection well. Return in about 2 weeks (around 06/19/2023), or if symptoms worsen or fail to improve. Note written by Amy Laird Clinical Scribe, acting as scribe for Nikolas Jha DPM I have reviewed this note and it accurately reflects my work and decisions made during this visit Nikolas Jha DPM. documented in this encounter Plan of Treatment Upcoming Encounters Date Type Department Care Team (Late st Contact Info) Description 05/24/2024 10:30 AM EST Office Visit [facility] Podiatry [address] [place] [address] Nikolas Jha, SURENDRA [address] [facility] [address] [place] [address] Scheduled Orders Name Type Priority Associated Diagnoses Orde r Schedule OK DESTRUCT BY NEURO AGENT; PLANTAR DIGITAL NERVE OK Charge Routine Henderson neuroma, left Ordered: 06/05/2023 documented as of this encounter Goals Goal Patient Goal Type Associated Problems Recent Progress Patient-Stated? Author Breast [facility] Breast Health On track( 021 9:11 AM EDT) No Maisha Kirk, CRISTOBAL Note: Patient will be compliant with monthly Self Breast Exams and is aware of to who to contact for any unusual or concerning findings. Breast [facility] Breast Health No Alexia Kim RN Note: Patient will be compliant with monthly Self Breast Exams and is aware of to who to contact for any unusual or concerning findings. documented as of this encounter Visit Diagnoses Diagnosis Left foot pain- Primary Pain in limb Henderson neuroma, left documented in this encounter Additional Health Concerns Assessment Noted Time A fall risk assessment has been complete d for the patient 04/26/2019 3:55 PM EST documented as of this encounter Care Teams Deputy Commonwealth'S Attorney Relationship Specialty Start Date End Date Carlos Manuel Barragan [facility] [address] [place] [address] PCP - General 07/03/10 documented as of this encounter
--- OUTSIDE RECORDS SUMMARY | 2024-05-04 22:51 | XMS_ITS | Encounter Summary ---
Author Organization [place] [address] Care Team Providers Care User Interface Designer Name Role Phone Carlos Manuel Barragan Primary Care Provider [phone] Reason for Visit * Reason Onset Date Comments Other 03/01/2024 Encounter Details Date Type Department Care Team (Late st Contact Info) Description 03/01/2024 Telephone [facility] [place] [address] [place] [address] [place] [phone] Nikolas Jha DPM [address] [facility] [address] [place] [phone] Other Social History Tobacco Use Types Packs/Day Years [...] stephon Trejo APRN documented in this encounter Miscellaneous Notes * Telephone Encounter - Christina Norwood - 03/01/2024 3:06 PM EDT Questions : Patient is having issues with the left foot more than the right foot but the surgery is scheduled for the right foot. Patient wants to know what she needs to do to get this changed from the right to the left. Please advise. Patient hasn't had xrays on this in years. I have scheduled her for an appointment to get xrays completed and to go over this this . documented in this encounter Plan of Treatment Upcoming Encounters Date Type Department Care Team (Late st Contact Info) Description 05/24/2024 10:30 AM EST Office Visit [facility] [address] [place] [phone] Nikolas Jha DPM [address] [place] [address] [address] [place] [phone] documented as of this encounter Goals [...] documented as of this encounter Care Teams User Interface Designer Relationship Specialty Start Date End Date Carlos Manuel aBrragan [address] [place] [address] [address] [place] [address] PCP - General 07/03/10 documented as of this encounter
--- OUTSIDE RECORDS SUMMARY | 2024-05-04 22:51 | XMS_ITS | Encounter Summary ---
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 Author Breast [facility] Breast Health On track( 021 9:11 AM EDT) No Maisha Kirk, RN Note: Patient will be compliant with monthly Self Breast Exams and is aware of to who to contact for any unusual or concerning findings. Breast [facility] Breast Health No Alexia Kim, RN Note: Patient will be compliant with monthly Self Breast Exams and is aware of to who to contact for any unusual or concerning findings. 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
--- OUTSIDE RECORDS SUMMARY | 2024-05-04 22:51 | XMS_ITS | Encounter Summary ---
Author Organization [facility] [place] [address] Care Team Providers Care Construction Economist Name Role Phone Carlos Manuel Barragan Primary Care Provider [phone] Encounter Details Date Type Department Care Team (Latest Contact Info) Description 08/31/2023 Travel Social History Tobacco Use Types Packs/Day [...] 10:30 AM EST Office Visit [facility] [address] [place] [phone] Nikolas Jha Mitzi [address] [place] [address] [address] [place] [phone] documented as of this encounter Goals Goal Patient Goal Type Associated Problems Recent Progress Patient-Stated? Author Breast [facility] Breast Health On track( 021 9:11 AM EDT) Maisha Anderson, CRISTOBAL Note: Patient will be compliant with monthly Self Breast Exams and is aware of to who to contact for any unusual or concerning findings. Breast [facility] Breast [facility] No Alexia Kim RN Note: Patient will [...] documented as of this encounter Care Teams Construction Economist Relationship Specialty Start Date End Date Carlos Manuel Barragan [address] [facility] [address] [place] [address] PCP - General 07/03/10 documented as of this encounter
--- OUTSIDE RECORDS SUMMARY | 2024-05-04 22:51 | XMS_ITS | Encounter Summary ---
Author Organization [place] [address] Care Team Providers Care Worship Leader Name Role Phone Carlos Manuel Barragan Primary Care Provider [phone] Encounter Details Date Type Department Care Team (Latest Contact Info) Description 10/21/2023 3:20 PM EDT Ancillary Procedure [facility] [address] [place] [phone] Nikolas Jha [facility] [address] [facility] [address] [place] [phone] Acquired hammer toe; Right foot pain Discharge Disposition: Home or Self Care [...] Date Author No 06/03/2015 1:49 PM Mitzi Jimenezsa Neil APRN documented in this encounter Discharge Disposition Disposition Code Departure Means Destination Home or Self Care documented in this encounter Plan of Treatment Upcoming Encounters Date Type Department Care Team (Late st Contact Info) Description 05/24/2024 10:30 AM EST Office Visit [facility] [address] [place] [phone] Nikolas Jha [address] [place] [phone] documented as of this encounter Goals Goal Patient Goal Type Associated Problems Recent Progress Patient-Stated? Author Breast [facility] Breast Health On track( 021 9:11 AM EDT) No Maisha Kirk, RN Note: Patient will be compliant with monthly Self Breast Exams and is aware of to who to contact for any unusual or concerning findings. Breast [facility] Breast Health No Alexia Kim, RN Note: Patient will be compliant with monthly Self Breast Exams and is aware of to who to contact for any unusual or concerning findings. documented as of this encounter Procedures Procedure Name Priority Date/Time Associated Diagnosis Comments XR FOOT RIGHT AP LATERAL AND OBLIQUE STANDING Routine 10/21/2023 3:31 PM EDT Acquired hammer toe Right foot pain documented in this encounter Results * XR FOOT RIGHT AP LATERAL AND OBLIQUE STANDING (10/21/2023 3:31 PM EDT) Anatomical Region Laterality Modality Foot Radiographic Lindsey ging Narrative 10/21/2023 9:07 PM EDT No acute changes, no fracture or dislocation, scattered arthritic changes, elongated second and third metatarsal, dislocated second third MP joint, hammertoe deformities 2 3 and 4 us Nikolas Jha DPM [facility] [place] [place] Final Result documented in this encounter Visit Diagnoses Diagnosis Acquired hammer toe Other hammer toe (acquired) Right foot pain Pain in limb documented in this encounter Additional Health Concerns Assessment Noted Time A fall risk assessment has been complete d for the patient 10/21/2023 2:54 PM EDT documented as of this encounter Care Teams Worship Leader Relationship Specialty Start Date End Date Carlos Manuel Barragan [address] [place] [address] [facility] [address] [place] [address] PCP - General 07/03/10 documented as of this encounter
--- OUTSIDE RECORDS SUMMARY | 2024-05-04 22:51 | XMS_ITS | Encounter Summary ---
Author Organization [facility] [place] [address] Care Team Providers Care Dozer Operator Name Role Phone Carlos Manuel Barragan Primary Care Provider [phone] Encounter Details Date Type Department Care Team (Latest Contact Info) Description 06/20/2022 Travel Social History Tobacco Use Types Packs/Day [...] to have Coronavirus/COVID-19? No / Unsure 06/20/2022 12:49 PM EST documented as of this encounter [...] No 06/03/2015 1:49 PM TRISTIAN Mitzi Archer CAMPBELL Trejo * Does this person have difficulty dressing or bathing? Answer Date of Assessment Author No 06/03/2015 1:49 PM Mitzi Jimenez CAMPBELL Trejo * Because of a physical, mental or [...] Author No 06/03/2015 1:49 PM TRISTIAN Mitzi Archersa Neil APRN documented in this encounter Plan of Treatment Upcoming Encounters Date Type Department Care Team (Late st Contact Info) Description 05/24/2024 10:30 AM EST Office Visit [facility] [address] [place], [place] [phone] Nikolas Jha, [address] [place] [phone] documented as of this encounter Goals Goal Patient Goal Type Associated Problems Recent Progress Patient-Stated? Author Breast [facility] Breast Health On track( 021 9:11 AM [...] documented as of this encounter Care Teams Dozer Operator Relationship Specialty Start Date End Date Carlos Manuel Barragan [address] [place] [facility] [address] [place] [address] PCP - General 07/03/10 documented as of this encounter
--- OUTSIDE RECORDS SUMMARY | 2024-05-04 22:51 | XMS_ITS | Encounter Summary ---
Author Organization [place] [address] Care Team Providers Care Second Rigger Name Role Phone Carlos Manuel Barragan Primary Care Provider Reason for Visit * Reason Onset Date Comments Medication Problem 01/30/2022 Ditropan Encounter Details Date Type Department Care Team (Late st Contact Info) Description 01/30/2022 Telephone [facility] [place] [id number] Jessy Donato, electrical controls engineer Problem (Ditropan) Social History Tobacco Use Types Packs/Day Years [...] Assessment Author No 06/03/2015 1:49 PM Mitzi JimenezCAMPBELL documented as of this encounter Mental Status * Because of a physical, mental or emotional condition, does this person have serious difficulty concentrating, remembering or making decisions? Answer Entry Date Author No 06/03/2015 1:49 PM Mitzi Jimenez CAMPBELL Trejo documented in this encounter Ordered Prescriptions Prescription Sig Dispense Quantity Refills Last Filled Start Date End Date oxybutynin (DITROPAN-XL) 5 mg Oral Tablet Extended Rel 24 hr Take 1 Tablet by mouth daily. 90 Tablet 3 01/31/2022 03/07/2023 documented in this encounter Miscellaneous Notes * Telephone Encounter - Maisha Prater RN - 01/31/2022 4:24 PM EDT Called and left vmm for Senia to advise refill has been sent to [facility]. * Telephone Encounter - Caty Moy PA-C - 01/31/2022 3:45 PM EDT Refill sent. * Telephone Encounter - Jessy Donato RN - 01/30/2022 1:51 PM EDT Received call from [facility]-states patient needs a refill sent in for her Ditropan-will sendto Caty to send in refill. documented in this encounter Plan of Treatment Upcoming Encounters Date Type Department Care Team (Late st Contact Info) Description 05/24/2024 10:30 AM EST Office Visit [facility] [place] [address] [place] [address] Abhijeet Nikolas Neil, DPMitzi [address] [facility] [facility] [address] [place] [address] documented as of this encounter [...] Diagnoses Not on filedocumented in this encounter Discontinued Medications Medication Sig Discontinue Reason Start Date End Da te oxybutynin (DITROPAN-XL) 5 mg Oral Tablet Extended Rel 24 hr TAKE 1 TABLET BY MOUTH DAILY. Reorder 04/12/2021 01/31/2022 documented as of this encounter Additional Health Concerns Assessment Noted Time A fall risk assessment has been complete d for the patient 04/26/2019 3:55 PM EST documented as of this encounter Care Teams Second Rigger Relationship Specialty Start Date End Date Carlos Manuel Barragan [address] [facility] [address] [place] [address] PCP - General 07/03/10 documented as of this encounter
--- OUTSIDE RECORDS SUMMARY | 2024-05-04 22:51 | XMS_ITS | Encounter Summary ---
Author Organization [place] [address] Care Team Providers Care Plate Filler Name Role Phone Carlos Manuel Barragan Primary Care Provider [phone] Reason for Referral * In Office Procedure (Routine) - Authorization Not Needed Specialty Diagnoses / Procedures Referred By Heather santos Referred To Contact Podiatry Diagnoses Tomlinson neuroma, left Procedures PA DESTRUCT BY NEURO AGENT; PLANTAR DIGITAL NERVE Nikolas Jha DPM [address] Phone: tel: fax: Nikolas Jha DPM [address] [place] [address] Phone: tel: fax: Referral ID Status Reason Start Date Expiration Date Visits Requested Visits Authorized [id number] Authorization Not Needed 3 05/07/2024 1 1 Reason for Visit * Reason Comments Follow-up left foot * In Office Procedure (Routine) - Authorization Not Needed Specialty Diagnoses / Procedures Referred By Heather santos Referred To Contact Podiatry Diagnoses Tomlinson neuroma, left Procedures PA DESTRUCT BY NEURO AGENT; PLANTAR DIGITAL NERVE Nikolas Jha, DPMitzi [address] [address] Phone: tel: fax: Abhijeet Nikolas A, DPM [address] [address] Phone: tel: fax: Referral ID Status Reason Start Date Expiration Date Visits Requested Visits Authorized [id number] Authorization Not Needed 05/07/2024 1 1 Encounter Details Date Type Department Care Team (Latest Contact Info) Description 05/08/2023 2:30 PM EST Office Visit [facility] [address] [place] [phone] Nikolas Jha, [address] [phone] Left foot pain (Primary Dx); Tomlinson neuroma, left; Primary osteoarthritis of left foot; Capsulitis of left foot Social History Tobacco Use [...] - - Temperature 36.3 ??C (97.4 ??F) 05/08/2023 2:52 PM ES T Respiratory Rate - - Oxygen Saturation - - Inhaled Oxygen Concentration - - Weight 91.6 kg (202 lb) 05/08/2023 2:52 PM EST Height 170.2 cm (5' 7 ) 05/08/2023 2:52 PM EST Body Mass Index 31.64 05/08/2023 2:52 PM EST documented in this encounter Functional [...] this encounter Progress Notes * Nikolas Jha, DPM - 05/08/2023 2:30 PM EST Images from the original note were not included. Subjective: Patient ID: Juany Conn is a 73 y.o. female. Chief Complaint: Follow-up (left foot/) HPI 73 y.o. female complains of Follow-up (left foot/) This with continued pain left forefoot. Has Tomlinson's neuroma second third interspace and also capsulitis second third MP joint. Cortisone injections are not lasting, giving her only temporary relief. Past Medical History: Diagnosis Date Anemia when [...] tablet Take 1 Tab by mouth daily. Cholecalciferol, Vitamin D3, 2,000 [...] taking: Reported on 10/20/2018) 20 Tab 0 calcium polycarbophiL (FIBERCON) 625 [...] 4-6 hours as needed (Patient not taking: No sig reported) 30 Tab 0 traMADol (ULTRAM) 50 mg [...] ; Surgeon: Flaco Damon MD; Location: [facility]; Service: Plastics BREAST REDUCTION SURGERY Right 11/16/2015 Surgeon: Flaco Damon MD; Location: [facility]; Service: Plastics BREAST SURGERY Left 06/02/2015 BREAST RECONSTRUCTION 1ST STAGE WITH EXPANDERS ; Surgeon: Flaco Damon MD; Location: [facility]; Service: General CARPAL TUNNEL RELEASE Bilateral 02/12/2018 BILATERAL CARPAL TUNNEL RELEASE ; Surgeon: Francisco Javier Lepe MD; Location: [facility]; Service: Hand CHOLECYSTECTOMY COLONOSCOPY DENTAL SURGERY wisdom teeth extracted FOOT SURGERY Left 10/05/2010 hammertoes HIP SURGERY 2009 right total KNEE SURGERY 2007 right TKR TONSILLECTOMY TOTAL KNEE ARTHROPLASTY Left 09/29/2018 LEFT TOTAL KNEE ARTHROPLASTY; Surgeon: Brian Newman MD; Location: [facility]; Service: Orthopedics Family History [...] Eyes: Positive for visual disturbance (wears glasses). Neurological: Positive for numbness (left foot). Hematological: Bruises/bleeds easily. All other systems reviewed and are negative. Objective: Vitals: 05/08/23 1452 Temp: 97.4 ??F (36.3 ??C) TempSrc: Forehead Weight: 202 lb (91.6 kg) Height: 5' 7 (1.702 m) Body mass index is 31.64 kg/m??. No results found for: HGBA1C XR FOOT LEFT AP LATERAL AND OBLIQUE STANDING Result Date: 05/08/2023 Marked metatarsals primus varus with hallux valgus and bunion deformity degenerative changes to thefirst MP joint, question scattered arthritic changes, marked midfoot arthritic changes, no acute changes, no fracture or dislocation, retained K wires to the second third metatarsals without intra-articular protrusion. Physical Exam Constitutional: Appearance: Normal appearance. She [...] orders for this visit: Left foot pain - XR FOOT LEFT AP LATERAL AND OBLIQUE STANDING; Future Tomlinson neuroma, left - PA DESTRUCT BY NEURO AGENT; PLANTAR DIGITAL NERVE Primary osteoarthritis of left foot Capsulitis of left foot Discussed further nonoperative and operative treatment options. Recommend alcohol sclerosing injections. Patient agreed. Alcohol sclerosing injection #1 of 6 administered to the left second and third interspace Tomlinson's neuroma. Tolerated well. Return in about 2 weeks (around 05/22/2023), or if symptoms worsen or fail to [...] EST Office Visit [facility] [place] [address] [facility] [address] [place] [phone] Nikolas Jha DPM [address] [facility] [address] [place] [phone] Scheduled Orders Name Type Priority Associated Diagnoses Orde r Schedule PA DESTRUCT BY NEURO AGENT; PLANTAR DIGITAL NERVE PA Charge Routine Tomlinson neuroma, left Ordered: 05/08/2023 documented as of this encounter Goals Goal Patient Goal Type Associated Problems Recent Progress Patient-Stated? Author [facility] Breast Health On track( 021 9:11 AM EDT) No Maisha Kirk, RN Note: Patient will be compliant with monthly Self Breast Exams and is aware of to who to contact for any unusual or concerning findings. Breast [facility] Breast [facility] No Alexia Kim, CRISTOBAL Note: Patient will be compliant with monthly Self Breast Exams and is aware of to who to contact for any unusual or concerning findings. documented as of this encounter Results * XR FOOT LEFT AP LATERAL AND OBLIQUE STANDING (05/08/2023 4:09 PM EST) Anatomical Region Laterality Modality Foot Radiographic Lindsey ging Narrative 05/08/2023 8:24 PM EST Marked metatarsals primus varus with hallux valgus and bunion deformity degenerative changes to the first MP joint, question scattered arthritic changes, marked midfoot arthritic changes, no acute changes, no fracture or dislocation, retained K wires to the second third metatarsals without intra-articular protrusion. us Nikolas Jha DPM [facility] DIAGNOSTIC [facility] [place] Final Result documented in this encounter Visit Diagnoses Diagnosis Left foot pain- Primary Pain in limb Tomlinson neuroma, left Primary osteoarthritis of left foot Capsulitis of left foot Enthesopathy of ankle and tarsus, unspecified Left foot pain Pain in limb documented in this encounter Additional Health Concerns Assessment Noted Time A fall risk assessment has been complete d for the patient 04/26/2019 3:55 PM EST documented as of this encounter Care Teams Plate Filler Relationship Specialty Start Date End Date Carlos Manuel Barragan [address] [place] [address] [address] [place] [address] PCP - General 07/03/10 documented as of this encounter
--- OUTSIDE RECORDS SUMMARY | 2024-05-04 22:51 | XMS_ITS | Encounter Summary ---
Author Organization [place] [address] Care Team Providers Care Distribution Clerk Name Role Phone Carlos Manuel Barragan Primary Care Provider [phone] Reason for Visit * Reason Comments Hammer Toe right foot second to e Encounter Details Date Type Department Care Team (Late st Contact Info) Description 10/21/2023 2:45 PM EDT Office Visit [facility] [address] [place] [phone] Nikolas Jha, [facility] [address] [place] [address] [place] [phone] Acquired hammer toe (Primary Dx); Right foot pain; Deformity of metatarsal bone of right foot [...] Pressure - - Pulse - - Temperature 36.6 ??C (97.9 ??F) 10/21/2023 2:54 PM ED T Respiratory Rate - - Oxygen Saturation - - Inhaled Oxygen Concentration - - Weight 95.3 kg (210 lb) 10/21/2023 2:54 PM EDT Height 170.2 cm (5' 7 ) 10/21/2023 2:54 PM EDT Body Mass Index 32.89 10/21/2023 2:54 PM EDT documented in this encounter Functional Status * Is the person deaf or does he/she have serious difficulty hearing? Answer Date of Assessment Author No 06/03/2015 1:49 PM Mizti Jimenez APRN * Is the person blind [...] Progress Notes * Nikolas Jha DPM - 10/21/2023 2:45 PM EDT Images from the original note were not included. Subjective: Patient ID: Juany Conn is a 73 y.o. female. Chief Complaint: Hammer Toe (right foot second toe/) HPI 73 y.o. female complains of Hammer Toe (right foot second toe/) Patient presents complaining of continued aching, throbbing, burning, shooting pain located to hammertoes of both feet. Present now for years, gradual onset. Gradual worsening, worsened with rest, standing, walking, increased activity, certain shoes. No trauma history. Pain right second third and fourth toes. Having a hard time wearing any shoes. Having a hard time walking. Has attempted to change her shoe gear also use padding. States she is ready for surgery. Past Medical History: Diagnosis Date Anemia when younger only Arthritis knees, hips,back BRCA negative Breast cancer (HCC) 02/09/15 [facility], grade 1. No receptors at this time [...] SYMMETRY ; Surgeon: Flaco Damon MD; Location: [facility]; Service: Plastics BREAST REDUCTION SURGERY Right 11/16/2015 Surgeon: Flaco Damon MD; Location: [facility]; Service: Plastics BREAST SURGERY Left 06/02/2015 BREAST RECONSTRUCTION 1ST STAGE WITH EXPANDERS ; Surgeon: Flaco Damon MD; Location: [facility] OR; Service: General CARPAL TUNNEL RELEASE Bilateral 02/12/2018 BILATERAL CARPAL TUNNEL RELEASE ; Surgeon: Francisco Javier Lepe MD; Location: [facility]; Service: Hand CHOLECYSTECTOMY COLONOSCOPY DENTAL SURGERY wisdom teeth extracted FOOT SURGERY Left 10/05/2010 hammertoes HIP SURGERY 2009 right total KNEE SURGERY 2007 right TKR TONSILLECTOMY TOTAL KNEE ARTHROPLASTY Left 09/29/2018 LEFT TOTAL KNEE ARTHROPLASTY; Surgeon: Brian Newman MD; Location: [facility] OR; Service: Orthopedics Family History [...] file Social Connections: Unknown (03/03/2023) Received from [facility] Family and Community Support Help with Day-to-Day Activities: Not on file Lonely or Isolated: Not on file Intimate Partner Violence: Not At Risk (06/30/2023) Re[facility] from [facility], [facility] Abuse Screen Feels Unsafe at Home or Work/School: no Feels Threatened by Someone: no Does Anyone Try to Keep You From Having Contact with Others or Doing Things Outside Your Home?: no Physical Signs of Abuse Present: no Housing Stability: Unknown (05/16/2023) Received from [facility] [employer], [facility] Housing Stability Current Living Arrangements: Not on file Potentially Unsafe Housing Conditions: Not on file Review of Systems Constitutional: Positive for activity change. Eyes: Positive for visual disturbance (wears glasses). Musculoskeletal: Positive for arthralgias and gait problem. All other systems reviewed and are negative. Objective: Vitals: 10/21/23 1454 Temp: 97.9 ??F (36.6 ??C) TempSrc: Forehead Weight: 210 lb (95.3 kg) Height: 5' 7 (1.702 m) Body mass index is 32.89 kg/m??. No results found for: HGBA1C XR FOOT RIGHT AP LATERAL AND OBLIQUE STANDING Result Date: 10/21/2023 No acute changes, no fracture or dislocation, scattered arthritic changes, elongated second and third metatarsal, dislocated second third MP joint, hammertoe deformities 2 3 and 4 Physical Exam Constitutional: Appearance: Normal appearance. She [...] deformity, tenderness or crepitus. Feet: Feet: Comments: Skin: General: Skin is warm and dry. Coloration: Skin is not pale. Findings: No erythema or rash. Neurological: Mental Status: She is alert and oriented to person, place, and time. Psychiatric: Behavior: Behavior normal. Thought Content: Thought content normal. Judgment: Judgment normal. Assessment and Plan: Diagnoses and all orders for this visit: Acquired hammer toe - XR FOOT RIGHT AP LATERAL AND OBLIQUE STANDING; Future Right foot pain - XR FOOT RIGHT AP LATERAL AND OBLIQUE STANDING; Future Deformity of metatarsal bone of right foot She has severe hammertoe deformity toes 2 - 3 - 4 right foot. Second toe is dislocated second MP joint. Third toes partially dislocated third MP joint. Second toe and second MP joint are rigid. Discussed nonoperative and operative treatment options. Patient is ready for surgery. She would need hammertoe repair second and third and fourth toes right foot. Most likely need second third metatarsal osteotomy possible fourth, shortening to allow the toes todrop down. Discussed procedure, postop course, potential benefits and risks, all questions answered, no guarantees made toward healing and resolution of infection - patient agreeable, consent signed. Will schedule soon as possible. No follow-ups on file. documented in this encounter Plan of Treatment Upcoming Encounters Date Type Department Care Team (Late st Contact Info) Description 05/24/2024 10:30 AM EST Office Visit [facility] [address] [place] [phone] Nikolas Jha DPM [address] [place] [address] [place] [phone] documented as of this encounter Goals Goal Patient Goal Type Associated Problems Recent Progress Patient-Stated? Author Breast [facility] Breast Health On track( 021 9:11 AM EDT) No Maisha Kirk, CRISTOBAL Note: Patient will be compliant with monthly Self Breast Exams and is aware of to who to contact for any unusual or concerning findings. Breast [facility] Breast Health No Alexia Kim RN Note: Patient will be compliant with monthly Self Breast Exams and is aware of to who to contact for any unusual or concerning findings. documented as of this encounter Results * XR FOOT RIGHT [...] hammer toe- Primary Other hammer toe (acquired) Right foot pain Pain in limb Deformity of metatarsal bone of right foot Acquired hammer toe Other hammer toe (acquired) Right foot pain Pain in limb documented in this encounter Additional Health Concerns Assessment Noted Time A fall risk assessment has been complete d for the patient 10/21/2023 2:54 PM EDT documented as of this encounter Care Teams Distribution Clerk Relationship Specialty Start Date End Date Carlos Manuel Barragan [facility] [address] [place] [address] PCP - General 07/03/10 documented as of this encounter
--- OUTSIDE RECORDS SUMMARY | 2024-05-04 22:51 | XMS_ITS | Encounter Summary ---
Author Organization [place] [address] Care Team Providers Care Support Representative Name Role Phone Carlos Manuel Barragan Primary Care Provider [phone] Reason for Referral * In Office Procedure (Routine) - Closed Specialty Diagnoses / Procedures Referred By Heather santos Referred To Contact Diagnoses Primary osteoarthritis of left foot Capsulitis of left foot Procedures TN ARTHROCENTESIS ASPIR&/INJ SMALL JT/BURSA W/O US TN NJX AA&/STRD PLANTAR COMMON DIGITAL NERVES Nikolas Jha DPM [address] [address] Phone: tel: fax: Nikolas Jha DPM [address] [address] Phone: tel: fax: Referral ID Status Reason Start Date Expiration Date Visits Re quested Visits Authorized [id number] Closed 03/18/2022 04/18/2022 1 1 * In Office Procedure (Routine) - Closed Specialty Diagnoses / Procedures Referred By Heather santos Referred To Contact Diagnoses Tomlinson neuroma, left Procedures TN NJX AA&/STRD PLANTAR COMMON DIGITAL NERVES Nikolas Jha, [facility] [address] [facility] [place] [address] [place] [phone] Phone: tel: fax: Nikolas Jha DPM [address] [facility] [address] [address] Phone: tel: fax: Referral ID Status Reason Start Date Expiration Date Visits Re quested Visits Authorized [id number] Closed 03/18/2022 03/18/2023 1 1 Reason for Visit * Reason Comments Follow-up Left foot * In Office Procedure (Routine) - Closed Specialty Diagnoses / Procedures Referred By Contac t Referred To Contact Diagnoses Primary osteoarthritis of left foot Capsulitis of left foot Procedures TN ARTHROCENTESIS ASPIR&/INJ SMALL JT/BURSA W/O US TN NJX AA&/STRD PLANTAR COMMON DIGITAL NERVES Nikolas Jha, [facility] [address] [address] Phone: tel: fax: Nikolas Jha DPM [address] [address] Phone: tel: fax: Referral ID Status Reason Start Date Expiration Date Visits Re quested Visits Authorized [id number] Closed 03/18/2022 04/18/2022 1 1 Encounter Details Date Type Department Care Team (Latest Contact Info) Description 03/18/2022 3:45 PM EDT Office Visit [facility] [address] [place] [phone] Nikolas Jha DPM [address] [facility] [place] [address] [place] [phone] Pain in both feet (Primary Dx); Tomlinson neuroma, left; Primary osteoarthritis [...] Pressure - - Pulse - - Temperature 36.1 ??C (97 ??F) 03/18/2022 4:47 PM EDT Respiratory Rate - - Oxygen Saturation - - Inhaled Oxygen Concentration - - Weight 97.5 kg (215 lb) 03/18/2022 4:47 PM EDT Height - - Body Mass Index 33.47 03/18/2022 1:57 PM EDT documented in this [...] Progress Notes * Nikolas Jha DPM - 03/18/2022 3:45 PM EDT Images from the original note were not included. Subjective: Patient ID: Juany Conn is a 71 y.o. female. Chief Complaint: Follow-up (Left foot/) HPI 71 y.o. female complains of Follow-up (Left foot/) Patient complains of recurring pain of left foot. Previously had injections to relieve the pain. Injections did help. Patient requests repeat injections. Past Medical History: Diagnosis Date ??? Anemia when younger only ??? Arthritis knees, hips,back ??? BRCA negative ??? Breast cancer (HCC) 02/09/15 [facility], grade 1. No receptors at this time (not sufficient tissue), left, no radiation, no chemo ??? Encounter for blood transfusion with THR 2 units ??? Hyperlipidemia ??? Hypertension ??? Motion sickness past history when younger ??? Postoperative nausea and vomiting does well with patch behind ear ??? Unspecified sleep apnea cpap at night. does not know setting ??? Wears glasses for reading Patient Active Problem List Diagnosis Date Noted ??? Essential hypertension 09/30/2018 ??? Hypokalemia 09/30/2018 ??? Osteoarthritis of left knee 09/30/2018 ??? Bilateral carpal tunnel syndrome 02/10/2018 ??? Breast cancer (HCC) 02/09/2015 Past Surgical History: Procedure Laterality Date ??? BREAST BIOPSY Left 02/07/15 x 4 lymph nodes removed ??? BREAST BIOPSY Left 03/03/2015 ??? BREAST RECONSTRUCTION Left 11/16/2015 LEFT BREAST STAGE 2 RECONSTRUCTION WITH IMPLANT RIGHT BREAST REDUCTION FOR SYMMETRY ; Surgeon: Flaco Damon MD; Location: [facility]; Service: Plastics ??? BREAST REDUCTION SURGERY Right 11/16/2015 Surgeon: Flaco Damon MD; Location: [facility]; Service: Plastics ??? BREAST SURGERY Left 06/02/2015 BREAST RECONSTRUCTION 1ST STAGE WITH EXPANDERS ; Surgeon: Flaco Damon MD; [facility]; Service: General ??? CARPAL TUNNEL RELEASE Bilateral 02/12/2018 BILATERAL CARPAL TUNNEL RELEASE ; Surgeon: Francisco Javier Lepe MD; [facility]; Service: Hand ??? CHOLECYSTECTOMY ??? COLONOSCOPY ??? DENTAL SURGERY wisdom teeth extracted ??? FOOT SURGERY Left 10/05/2010 hammertoes ??? HIP SURGERY 2009 right total ??? KNEE SURGERY 2008 right TKR ??? TONSILLECTOMY ??? TOTAL KNEE ARTHROPLASTY Left 09/29/2018 LEFT TOTAL KNEE ARTHROPLASTY; Surgeon: Brian Newman MD; Location: [facility]; Service: Orthopedics Family History Problem Relation Age of Onset ??? Ovarian Cancer Mother 83 ??? Cancer Mother uterus ??? Heart Failure Father ??? Thyroid Disease Father ??? Breast Cancer Sister 52 ??? High Blood Pressure Sister ??? High Blood Pressure Sister ??? Defects Brother ??? Anesth Problems Neg Hx Social History Tobacco Use ??? Smoking status: Never ??? Smokeless tobacco: Never Substance Use Topics ??? Alcohol use: Yes Comment: socially Current Outpatient Medications Medication Sig Dispense Refill ??? anastrozole (ARIMIDEX) 1 mg Oral Tablet TAKE 1 TABLET EVERY DAY 90 Tablet 0 ??? aspirin 81 mg tablet Take 81 mg by mouth daily. ??? bisoprolol-hydrochlorothiazide (ZIAC) 5-6.25 mg per tablet Take 1 Tab by mouth daily. ??? Cholecalciferol, Vitamin D3, 2,000 unit Oral Capsule Take by mouth daily. ??? cyanocobalamin 100 mcg Oral Tablet Take by mouth daily. ??? etodolac (LODINE) 500 mg Oral Tablet Take 500 mg by mouth 2 times daily. ??? gabapentin (NEURONTIN) 100 mg Oral Capsule 300 mg. 1 ??? metoclopramide HCl (REGLAN) 5 mg Oral Tablet Take 5 mg by mouth 2 times daily. ??? oxybutynin (DITROPAN-XL) 5 mg Oral Tablet Extended Rel 24 hr Take 1 Tablet by mouth daily. 90 Tablet 3 ??? potassium chloride SA (K-DUR;KLOR-CON) 20 mEq Oral Tab Sust.Rel. Particle/Crystal Take 20 mEq by mouth daily. ??? rosuvastatin (CRESTOR) 10 mg Oral Tablet Take 10 mg by mouth daily. ??? apixaban (ELIQUIS) 2.5 mg Oral Tablet Take 1 Tab by mouth 2 times daily for 10 days. (Patient not taking: Reported on 10/20/2018) 20 Tab 0 ??? calcium polycarbophiL (FIBERCON) 625 mg Oral Tablet Take 625 mg by mouth daily. ??? EVENING PRIMROSE OIL ORAL Take by mouth daily. ??? HYDROcodone-acetaminophen (NORCO) 7.5-325 mg Oral Tablet Take 1 Tab by mouth every 6 hours as needed for Acute Pain (R52). ??? montelukast (SINGULAIR) 10 mg Oral Tablet Take 10 mg by mouth every evening. ??? oxyCODONE (ROXICODONE) 5 mg Oral Tablet Take 1-2 Tabs by mouth every 4-6 hours as needed (Patient not taking: No sig reported) 30 Tab 0 ??? traMADol (ULTRAM) 50 mg Oral Tablet Take 1-2 Tabs by mouth every 6-8 hours as needed (Patient not taking: Reported on 10/20/2018) 40 Tab 0 No current facility-administered medications for this visit. Allergies Allergen Reactions ??? Morphine Other (See Comments) confusion ??? Penicillins Rash Outpatient Medications Marked as Taking for the 03/18/22 encounter (Office Visit) with Nikolas Jha DPM Medication Sig Dispense Refill ??? anastrozole (ARIMIDEX) 1 mg Oral Tablet TAKE 1 TABLET EVERY DAY 90 Tablet 0 ??? aspirin 81 mg tablet Take 81 mg by mouth daily. ??? bisoprolol-hydrochlorothiazide (ZIAC) 5-6.25 mg per tablet Take 1 Tab by mouth daily. ??? Cholecalciferol, Vitamin D3, 2,000 unit Oral Capsule Take by mouth daily. ??? cyanocobalamin 100 mcg Oral Tablet Take by mouth daily. ??? etodolac (LODINE) 500 mg Oral Tablet Take 500 mg by mouth 2 times daily. ??? gabapentin (NEURONTIN) 100 mg Oral Capsule 300 mg. 1 ??? metoclopramide HCl (REGLAN) 5 mg Oral Tablet Take 5 mg by mouth 2 times daily. ??? oxybutynin (DITROPAN-XL) 5 mg Oral Tablet Extended Rel 24 hr Take 1 Tablet by mouth daily. 90 Tablet 3 ??? potassium chloride SA (K-DUR;KLOR-CON) 20 mEq Oral Tab Sust.Rel. Particle/Crystal Take 20 mEq by mouth daily. ??? rosuvastatin (CRESTOR) 10 mg Oral Tablet Take 10 mg by mouth daily. Review of Systems Constitutional: Negative for activity change, chills, fatigue and fever. Eyes: Negative for visual disturbance. Respiratory: Negative for shortness of breath. Cardiovascular: Negative for chest pain and leg swelling. Gastrointestinal: Negative for nausea and vomiting. Musculoskeletal: Negative for arthralgias, back pain, gait problem and joint swelling. Skin: Negative for rash and wound. Neurological: Negative for seizures, light-headedness, numbness and headaches. Hematological: Does not bruise/bleed easily. Psychiatric/Behavioral: Negative for behavioral problems and confusion. All other systems reviewed and are negative. Objective: Vitals: 03/18/22 1647 Temp: 97 ??F (36.1 ??C) TempSrc: Forehead Weight: 215 lb (97.5 kg) Body mass index is 33.47 kg/m??. Physical Exam Constitutional: Appearance: Normal appearance. She [...] No swelling, deformity, tenderness or crepitus. Feet: Skin: General: Skin is warm and dry. Coloration: Skin is not pale. Findings: No erythema or rash. Neurological: Mental Status: She is alert and oriented to person, place, and time. Psychiatric: Behavior: Behavior normal. Thought Content: Thought content normal. Judgment: Judgment normal. Assessment and Plan: Juany was seen today for follow-up. Diagnoses and all orders for this visit: Pain in both feet Tomlinson neuroma, left - TN NJX AA&/STRD PLANTAR COMMON DIGITAL NERVES Primary osteoarthritis of left foot - TN ARTHROCENTESIS ASPIR&/INJ SMALL JT/BURSA W/O US Capsulitis of left foot - TN ARTHROCENTESIS ASPIR&/INJ SMALL JT/BURSA W/O US Injected left 2nd and 3rd interspace for neuroma. Injected left 2nd and 3rd MPJ. Patient tolerated injections well. Return in about 3 months (around 06/18/2022), or if symptoms worsen or fail to improve. Note written by Amy Laird Clinical Scribe, acting as scribe for Nikolas Jha DPM . I have reviewed this note and it accurately reflects my work and decisions made during this visit Nikolas Jha DPM. documented in this encounter Miscellaneous Notes * Addendum Note - Ana Luisa Boogie RMA - 03/18/2022 3:45 PM EDTAddended by: ANA LUISA BOOGIE on: 03/20/2022 09:46 AM Modules accepted: Orders, SmartSet documented in this encounter Plan of Treatment Upcoming Encounters Date Type Department Care Team (Late st Contact Info) Description 05/24/2024 10:30 AM EST Office Visit [facility] [address] [place] [phone] Nikolas Jha DPM [address] [place] [address] [place] [phone] Scheduled Orders Name Type Priority Associated Diagnoses Orde r Schedule TN NJX AA&/STRD PLANTAR COMMON DIGITAL NERVES TN Charge Routine Tomlinson neuroma, left Ordered: 03/18/2022 TN ARTHROCENTESIS ASPIR&/INJ SMALL JT/BURSA W/O US TN Charge Routine Primary osteoarthritis of left foot Capsulitis of left foot Ordered: 03/18/2022 documented as of this encounter Goals Goal Patient Goal Type Associated Problems Recent Progress Patient-Stated? Author Breast Health Breast Health On track( 021 9:11 AM EDT) No Maisha Kirk RN Note: Patient will be compliant with [...] as of this encounter Visit Diagnoses Diagnosis Pain in both feet- Primary Pain in limb Tomlinson neuroma, left Primary osteoarthritis of left foot Capsulitis of left foot Enthesopathy of ankle and tarsus, unspecified documented in this encounter Administered Medications Inactive Administered Medications - up to 1 most recent administrations Medication Order MAR Action Action Date Dose Rate Site lidocaine 20 mg/mL (2 %) injection 10 mg 10 mg, Tendon Sheath Injection, ONCE, 1 dose, On Fri03/20/22 at 1000, Dx: 1. Tomlinson neuroma, leftIndications:Tomlinson neuroma, left Given 03/20/2022 9:46 AM EDT 10 mg Left Foot triamcinolone acetonide (KENALOG-40) injection 20 mg 20 mg, Tendon Sheath Injection, ONCE, 1 dose, On Fri03/20/22 at 1000, Dx: 1. Tomlinson neuroma, leftIndications:Tomlinson neuroma, left Given 03/20/2022 9:46 AM EDT 20 mg Left Foot documented in this encounter Additional Health Concerns Assessment Noted Time A fall risk assessment has been complete d for the patient 04/26/2019 3:55 PM EST documented as of this encounter Care Teams Support Representative Relationship Specialty Start Date End Date Carlos Manuel Barragan [address] [place] [address] [address] [place] [address] PCP - General 07/03/10 documented as of this encounter
--- OUTSIDE RECORDS SUMMARY | 2024-05-04 22:51 | XMS_ITS | Encounter Summary ---
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 No / Unsure 11/08/2021 9:11 AM EDT documented as of this encounter Last Filed Vital Signs Vital Sign Reading Time Taken Comments Blood Pressure 142/80 11/08/2021 9:53 AM EDT Pulse 50 11/08/2021 9:53 AM EDT Temperature 36.3 ??C (97.3 ??F) 11/08/2021 9:53 AM ED T Respiratory Rate - - Oxygen Saturation - - Inhaled Oxygen Concentration - - Weight 101.6 kg (224 lb) 11/08/2021 9:53 AM EDT Height 167.6 cm (5' 6 ) 11/08/2021 9:53 AM EDT Body Mass Index 36.15 11/08/2021 9:53 AM EDT documented in this encounter Functional [...] Author No 06/03/2015 1:49 PM Mitzi Jimenez A, FOOD AND BEVERAGE LEAD * Does this person have difficulty dressing [...] or Self Care documented in this encounter Progress Notes * Dany Crouch MD - 11/08/2021 9:20 AM EDT Images from the original note were not included. Subjective: Ms. Alarcon is here for a scheduled routine follow-up visit History of Present Illness The patient is a 71 y.o. female who presents with a complaint of annual breast follow up Patient reports no new hospitalizations or emergency room visits. Patient reports no new lumps or bumps. No new back aches, bone pain or shortness of breath. No other family members with breast, ovarian, prostate, pancreatic or melanoma cancer. I have confirmed and addended the HPI and thus it represents my work HPI MM MAMMO DIGITAL VANNESA SCREEN RIGHT 04/24/21 CC and MLO view(s) were taken of the right breast. Technologist: Radha Granda, RT There are scattered fibroglandular densities. Prior study comparison: Compared with prior studies the most recent being 03/27/20, 03/23/19 Prior left mastectomy and right reduction surgery. No mammographic evidence of malignancy. ~ IMPRESSION: Negative ([id number]) ~ RECOMMENDATION: Routine screening mammogram in 1 year. Past Medical History: Diagnosis Date ??? Anemia [...] SYMMETRY ; Surgeon: Flaco Damon MD; Location: [facility]; Service: Plastics ??? BREAST REDUCTION SURGERY Right 11/16/2015 Surgeon: Flaco Damon MD; Location: [facility]; Service: Plastics ??? BREAST SURGERY Left 06/02/2015 BREAST RECONSTRUCTION 1ST STAGE WITH EXPANDERS ; Surgeon: Flaco Damon MD; Location: [facility] OR; Service: General ??? CARPAL TUNNEL RELEASE Bilateral 02/12/2018 BILATERAL CARPAL TUNNEL RELEASE ; Surgeon: Francisco Javier Lepe MD; Location: [facility]; Service: Hand ??? CHOLECYSTECTOMY ??? COLONOSCOPY ??? DENTAL SURGERY wisdom teeth extracted ??? FOOT SURGERY Left 10/05/2010 hammertoes ??? HIP SURGERY 2009 right total ??? KNEE SURGERY 2008 right TKR ??? TONSILLECTOMY ??? TOTAL KNEE ARTHROPLASTY Left 09/29/2018 LEFT TOTAL KNEE ARTHROPLASTY; Surgeon: Brian Newman MD; Location: [facility]; Service: Orthopedics Family History Problem Relation Age of Onset ??? Ovarian Cancer Mother 83 ??? Cancer Mother uterus ??? Breast Cancer Sister 52 ??? High Blood Pressure Sister ??? Heart Failure Father ??? Thyroid Disease Father ??? Defects Brother ??? High Blood Pressure Sister ??? Anesth Problems Neg Hx Social History Tobacco Use ??? Smoking status: Never Smoker ??? Smokeless tobacco: Never Used Substance Use Topics ??? Alcohol use: Yes [...] 1 TABLET BY MOUTH DAILY. 90 Tablet 3 ??? potassium chloride SA [...] 0 No current facility-administered medications for this encounter. Allergies Allergen Reactions ??? Morphine Other (See Comments) confusion ??? Penicillins Rash Review of Systems HENT: Negative for trouble swallowing. Eyes: Positive for visual disturbance ( pt wears corrective lens ). Respiratory: Negative for shortness of breath. Gastrointestinal: Negative for blood in stool. Genitourinary: Negative for vaginal bleeding. Skin: Negative. Objective: Vitals: 11/08/21 0953 BP: 142/80 Pulse: 50 Temp: 97.3 ??F (36.3 ??C) Weight: 224 lb (101.6 kg) Height: 5' 6 (1.676 m) Body mass index is 36.15 kg/m??. Physical Exam Vitals and nursing note reviewed. Exam conducted with a planner intern present. Constitutional: Appearance: Normal appearance. HENT: Head: Normocephalic and atraumatic. Cardiovascular: Rate and Rhythm: Normal rate. Pulmonary: Effort: Pulmonary effort is normal. Chest: Breasts: Left: Absent. Comments: Right breast exam negative Left chest wall negative Abdominal: General: Abdomen is flat. There is no distension. Palpations: Abdomen is soft. Tenderness: There is no abdominal tenderness. Lymphadenopathy: Comments: Negative node exam above and below arms S/p 03/03/15 LEFT BREAST CORE BIOPSY & SENTINEL LYMPH NODE DISSECTION. Skin: Comments: Negative skin exam on back Neurological: Mental Status: She is alert. Psychiatric: Mood and Affect: Mood normal. Behavior: Behavior normal. Thought Content: Thought content normal. Judgment: Judgment normal. Assessment and Plan: Annual Follow Up FARIDA by imaging and exam No new symptoms to report She is taking Arimidex and informed it is a 1.7% benefit. Risk of recurrent breast cancer is very low. She may continue Arimidex but benefit is minimal and she may stop. Pt reports she has an upcoming dermatology appt for skin check Dexa scan reviewed Vitamin D therapy reinforced Advised to have yearly screening mammography Return PRN Note written by PRASANNA Reeves, acting as scribe for Yamel Crouch MD. Juany was seen today for follow-up. Diagnoses and all orders for this visit: Malignant neoplasm of left breast in female, estrogen receptor positive, unspecified site of breast(HCC) Encounter for follow-up surveillance of breast cancer Encounter for monitoring aromatase inhibitor therapy Osteopenia, unspecified location History of breast cancer Essential hypertension ???I have reviewed this note and it accurately reflects my work and decisions made during this visit.?? Dany Crouch MD * Alexia Kim RN - 11/08/2021 9:20 AM EDT Patient presents to breast center for annual follow up exam. History of right ILC in 2014, left mx with recon and takes arimidex, daily. Right screening mammogram 04/24/21 - normal. Denies any new breast lumps/bumps or nipple discharge. Pt states she does have chronic back pain; follows with PCP. No new cancers in family to report. P: Knowledge Deficit r/t future health G: Educate patient I: Dr. Crouch performed exam and CBE - no abnormalities noted. Discussed last DEXA 04/19/19 - due for DEXA. Discussed BCI results - 1.7% - OK to stop taking or continue for 4 more years. Pt decided to stop taking; ok to finish script. Ok to return as needed, since 6 yrs out and will stop arimidex. Encouraged to continue with monthly self breast exam and report any abnormal finding. Discussed importance of daily activity /weekly exercise. Discussed s/s to watch for and report. Continue to take Vitamin D, daily. Discharge instructions reviewed and provided. Patient stated understanding. Encouragement and emotional support provided. Next: Right screening mm due in Mar, 2022. Pt to call CS to schedule. Return as needed. DEXA order placed. Pt to schedule documented in this encounter Miscellaneous Notes * Patient Instructions - Alexia Kim RN - 11/08/2021 9:20 AM EDT Images from the original note were not included. DISCHARGE INSTRUCTIONS As discussed, your exam today is normal. Please return to see us as needed. Arimidex - as discussed, you may discontinue taking Arimidex; you may finish out your script if youlike DEXA Bone Scan You are due for a DEXA Bone Scan. (See attached information) Please contact Central Scheduling at [phone] to schedule your test/procedure. Mammogram You are due for a right screening mammogram. Please contact Central Scheduling at [phone] to schedule your test/procedure. Continue taking Vitamin D3; there are findings that associate low Vitamin D levels to breast cancer, lung cancer, and colon cancer. The usual over the counter dosage is 1105-4261 units daily - * 1000 units in the Summer and * 2000 units in the Winter. Maintain a healthy diet and exercise for overall health benefits and cancer risk reduction. NURSE NAVIGATOR CONTACT: If you have any problems or questions, contact Nurse Navigator at [phone]. If you need to make appointment in the future, call the Nurse Navigator's departmental secretary at [phone]. Please remember the nurse checks voice mail messages throughout the day. However, if the nurse taking care of the phone messages is with another patient, she may not be able to return your call untillater in the day. If you need immediate assistance or if there is an emergency, please call your doctor's number or go to the Emergency Room. SIGNS/SYMPTOMS TO WATCH FOR FOLLOWING BREAST CANCER: Signs and symptoms to watch for following breast cancer include: 1)unusual and persistant shortnessof breath that has no explanation 2) unusual persistant bone/back pain that has no explanation, continues to worsen over a period of time, and is capable of waking you up at night 3)breast lumps or nipple discharge. 4) persistent, progressive headaches. MONTHLY SELF-BREAST EXAM Don't forget to continue monthly Self Breast Exam; report new lumps that feel like a hard rock or pebble. Breast Self-Awareness Breast self-awareness means: Knowing how your breasts look. Knowing how your breasts feel. Checking your breasts every month for changes. Telling your doctor if you notice a change in your breasts. Breast self-awareness allows you to notice a breast problem early while it is still small. How to do a breast self-exam One way to learn what is normal for your breasts and to check for changes is to do a breast self-exam. To do a breast self-exam: Look for Changes Take off all the clothes above your waist. soaping machine back tender front of a mirror in a room with good lighting. Put your hands on your hips. Push your hands down. Look at your breasts and nipples in the mirror to see if one breast or nipple looks different than the other. Check to see if: The shape of one breast is different. The size of one breast is different. There are wrinkles, dips, and bumps in one breast and not the other. Look at each breast for changes in your skin, such as: Redness. Scaly areas. Look for changes in your nipples, such as: Liquid around the nipples. Bleeding. Dimpling. Redness. A change in where the nipples are. Feel for Changes Lie on your back on the floor. Feel each breast. To do this, follow these steps: Pick a breast to feel. Put the arm closest to that breast above your head. Use your other arm to feel the nipple area of your breast. Feel the area with the pads of your three middle fingers by making small circles with your fingers. For the first kenaitze, press lightly. Forthe second kenaitze, press harder. For the third kenaitze, press even harder. Keep making circles with your fingers at the light, harder, and even harder pressures as you move down your breast. Stop when you feel your ribs. Move your fingers a little toward the center of your body. Start making circles with your fingers again, this time going up until you reach your collarbone. Keep making up and down circles until you reach your armpit. Remember to keep using the three pressures. Feel the other breast in the same way. Sit or audio installer the shower or tub. With soapy water on your skin, feel each breast the same way you did in step 2, when you were lyingon the floor. Write Down What You Find After doing the self-exam, write down: What is normal for each breast. Any changes you find in each breast. When you last had your period. How often should I check my breasts? Check your breasts every month. If you are , the best time to check them is after you feed your baby or after you use a breast pump. If you get periods, the best time to check your breasts is 5-7 days after your period is over. When should I see my doctor? See your doctor if you notice: A change in shape or size of your breasts or nipples. A change in the skin of your breast or nipples, such as red or scaly skin. Unusual fluid coming from your nipples. A lump or thick area that was not there before. Pain in your breasts. Anything that concerns you. This information is not intended to replace advice given to you by your health care provider. Make sure you discuss any questions you have with your health care provider. Document Released: 10/28/2008 Document Revised: 10/17/2016 Document Reviewed: 03/31/2016 [employer] Interactive Patient Education ?? 2018 [employer] documented in this encounter Plan of Treatment Upcoming Encounters Date Type Department Care Team (Late st Contact Info) Description 05/24/2024 10:30 AM EST Office Visit [facility] [address] [place] [phone] Nikolas Jha DPM [address] [place] [address] [address] [place] [phone] documented as of this encounter Goals Goal Patient Goal Type Associated Problems Recent Progress Patient-Stated? Author Breast Health Breast Health On track( 021 9:11 AM EDT) Maisha Anderson, RN Note: Patient will be compliant with monthly Self Breast Exams and is aware of to who to contact for any unusual or concerning findings. Breast [facility] Breast [facility] Alexia Williamson, RN Note: Patient will be compliant with monthly Self Breast Exams and is aware of to who to contact for any unusual or concerning findings. documented as of this encounter Results * DX BONE DENSITY AXIAL SKELETON (06/20/2022 12:58 PM EST) Anatomical Region Laterality Modality Dexa Scan 06/20/2022 Narrative 06/20/2022 4:08 PM EST Indication: The patient is a female age 65 or older who requires a bone density assessment. Study was performed on [employer]. Bone Density: Region ?BMD ? T-score [...] last exam. Reported by: Alexia Verdin PA-C, [facility], CCD on 06/20/2022 1:56:00 PM. Dany Crouch MD IMG DEXA ORDERABLES Final R esult documented in this encounter Visit Diagnoses Diagnosis Malignant neoplasm of left breast in female, estrogen receptor positive, unspecified site of breast (HCC)- Primary Encounter for follow-up surveillance of breast cancer Unspecified follow-up examination Encounter for monitoring aromatase inhibitor therapy Encounter for therapeutic drug monitoring Osteopenia, unspecified location History of breast cancer Personal history of malignant neoplasm of breast Essential hypertension Unspecified essential hypertension Post-menopausal Asymptomatic postmenopausal status (age-related) (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 cyanocobalamin 100 mcg Oral Tablet Take by mouth daily. added in this encounter Additional Health Concerns Assessment Noted Time A fall risk assessment has been complete d for the patient 04/26/2019 3:55 PM EST documented as of this encounter Care Teams Bumper And Painter Relationship Specialty Start Date End Date Carlos Manuel Barragan [address] [place] [address] [address] [place] [address] PCP - General 07/03/10 documented as of this encounter
--- OUTSIDE RECORDS SUMMARY | 2024-05-04 22:51 | XMS_ITS | Encounter Summary ---
Author Organization [place] [address] Care Team Providers Care Commercial Baker Helper Name Role Phone Carlos Manuel Barragan Primary Care Provider [phone] Reason for Referral * Mammography (Routine) - Closed Specialty Diagnoses / Procedures Referred By Heather santos Referred To Contact Radiology Diagnoses Encounter for screening mammogram for malignant neoplasm of breast Procedures MM MAMMO DIGITAL VANNESA SCREEN RIGHT MM MAMMO DIGITAL SCREENING DEC W CAD RT MM MAMMO DIGITAL VANNESA SCREEN Adrian Moarles MD Referral ID Status Reason Start Date Expiration Date Visits Re quested Visits Authorized [id number] Closed 03/18/2022 03/10/2024 1 1 Reason for Visit * Mammography (Routine) - Closed Specialty Diagnoses / Procedures Referred By Heather santos Referred To Contact Radiology Diagnoses Encounter for screening mammogram for malignant neoplasm of breast Procedures MM MAMMO DIGITAL VANNESA SCREEN RIGHT MM MAMMO DIGITAL SCREENING DEC W CAD RT MM MAMMO DIGITAL VANNESA SCREEN Adrian Morales MD Referral ID Status Reason Start Date Expiration Date Visits Re quested Visits Authorized [id number] Closed 03/18/2022 03/10/2024 1 1 Encounter Details Date Type Department Care Team (Latest Contact Info) Description 06/20/2022 12:49 PM EST - 06/20/2022 11:59 PM EST Hospital Encounter [facility] Mammography [address] [place] [address] Adrian Marshall MD Encounter for screening mammogram for malignant neoplasm [...] Mitzi Jimenez APRN documented in this encounter Medications at [...] 10:30 AM EST Office Visit [facility] [address] [place], [place] [phone] Nikolas Jha, [address] [place] [address] [place] [phone] documented as of this encounter Goals Goal Patient Goal Type Associated Problems Recent Progress Patient-Stated? Author [facility] On track( 021 9:11 AM EDT) Maisha Anderson, RN Note: Patient will be compliant with monthly Self Breast Exams and is aware of to who to contact for any unusual or concerning findings. [facility] Alexia Williamson, CRISTOBAL Note: Patient will be compliant with monthly Self Breast Exams and is aware of to who to contact for any unusual or concerning findings. documented as of this encounter Procedures Procedure Name Priority Date/Time Associated Diagnosis Comments MM MAMMO DIGITAL VNANESA SCREEN RIGHT Routine 06/20/2022 1:03 PM EST Encounter for screening mammogram for malignant neoplasm of breast documented in this encounter Results * MM MAMMO DIGITAL VANNESA SCREEN RIGHT (06/20/2022 1:03 PM EST) Anatomical Region Laterality Modality Breast Right Mammography 06/20/2022 1:08 PM EST Impressions 06/20/2022 1:08 PM EST Negative ??([id number]) ~ RECOMMENDATION: Routine screening mammogram in 1 [...] the next mammogram, in accordance with the [employer] and the Society of Breast Imaging recommendations. Narrative 06/20/2022 1:08 PM EST Procedure:MM MAMMO DIGITAL VANNESA SCREEN RIGHT ~ Reason for exam: history of breast cancer, mastectomy. Z12.31-Encounter for screening mammogram for malignant neoplasm of [id number] ~ MM MAMMO DIGITAL VANNESA SCREEN RIGHT [...] for screening mammogram for malignant neoplasm of [id number] ~ MM MAMMO DIGITAL VANNESA SCREEN RIGHT CC and MLO view(s) were taken of the right breast. Technologist: RT Susanna There are scattered fibroglandular densities. Prior study comparison: Compared with prior studies the most recentbeing 04/24/21, 03/27/20 No mammographic evidence of malignancy. ~ IMPRESSION: Negative ([id number]) ~ RECOMMENDATION: Routine screening mammogram in 1 [...] the next mammogram, in accordance with the [employer] and the Society of Breast Imaging recommendations. us Adrian Marshall MD IMG MAMMOGRAPHY ORDERABLES F inal Result documented in this encounter Visit Diagnoses Diagnosis Encounter for screening mammogram for malignant neoplasm of breast Other screening mammogram documented in this encounter Additional Health Concerns Assessment Noted Time A fall risk assessment has been complete d for the patient 04/26/2019 3:55 PM EST documented as of this encounter Care Teams Commercial Baker Helper Relationship Specialty Start Date End Date Carlos Manuel Barragan [address] [place] [address] [address] [place] [address] PCP - General 07/03/10 documented as of this encounter
--- OUTSIDE RECORDS SUMMARY | 2024-05-04 22:51 | XMS_ITS | Encounter Summary ---
Author Organization [facility] [place] [address] Care Team Providers Care Campus Rep Name Role Phone Carlos Manuel Barragan Primary Care Provider [phone] Encounter Details Date Type Department Care Team (Latest Contact Info) Description 06/28/2023 Travel Social History Tobacco Use Types Packs/Day [...] 10:30 AM EST Office Visit [facility] [address] [place] [phone] Nikolas Jha Mitzi [address] [place] [address] [address] [place] [address] [place] [phone] documented as of this encounter Goals Goal Patient Goal Type Associated Problems Recent Progress Patient-Stated? Author Breast [facility] Breast Health On track( 021 9:11 AM EDT) Maisha Anderson, CRISTOBAL Note: Patient will be compliant with monthly Self Breast Exams and is aware of to who to contact for any unusual or concerning findings. Breast [facility] Breast [facility] No Alexia Kim RN Note: [...] documented as of this encounter Care Teams Campus Rep Relationship Specialty Start Date End Date Carlos Manuel Barragan [address] [facility] [address] [place] [address] PCP - General 07/03/10 documented as of this encounter
--- OUTSIDE RECORDS SUMMARY | 2024-05-04 22:51 | XMS_ITS | Encounter Summary ---
Author Organization [place] [address] Care Team Providers Care Instrumentation Engineer Name Role Phone Carlos Manuel Barragan Primary Care Provider [phone] Encounter Details Date Type Department Care Team (Latest Contact Info) Description 05/08/2023 4:00 PM EST Ancillary Procedure [facility] Pod[facility]ry [address] [place] [phone] Nikolas Jha [facility] [address] [place] [address] [place] [phone] Left foot pain Discharge Disposition: Home or Self [...] AM EST Office Visit [facility] Podiatry [address] [place] [phone] Nikolas Jha [address] [place] [address] [place] [phone] documented as of this encounter Goals Goal Patient Goal Type Associated Problems Recent Progress Patient-Stated? Author Breast [facility] Breast Health On track( 021 9:11 AM EDT) No Maisha Kirk, RN Note: Patient will be compliant with monthly Self Breast Exams and is aware of to who to contact for any unusual or concerning findings. Breast [facility] Breast Health No Alexia Kim RN Note: Patient will be compliant with monthly Self Breast Exams and is aware of to who to contact for any unusual or concerning findings. documented as of this encounter Procedures Procedure Name Priority Date/Time Associated Diagnosis Comments XR FOOT LEFT AP LATERAL AND OBLIQUE STANDING Routine 05/08/2023 4:09 PM EST Left foot pain documented in this encounter Results [...] metatarsals without intra-articular protrusion. us Nikolas Jha DPMitzi [facility] Final Result documented in this encounter Visit Diagnoses Diagnosis Left foot pain Pain in limb documented in this encounter Additional Health Concerns Assessment Noted Time A fall risk assessment has been complete d for the patient 04/26/2019 3:55 PM EST documented as of this encounter Care Teams Instrumentation Engineer Relationship Specialty Start Date End Date Carlos Manuel Barragan [facility] [place] [facility] [address] [place] [address] PCP - General 07/03/10 documented as of this encounter
--- OUTSIDE RECORDS SUMMARY | 2024-05-04 22:51 | XMS_ITS | Encounter Summary ---
Author Organization [place] [address] Care Team Providers Care Electrical Continuity Tester Name Role Phone Carlos Manuel Barragan Primary Care Provider [phone] Reason for Referral * In Office Procedure (Routine) - Closed Specialty Diagnoses / Procedures Referred By Heather santos Referred To Contact Diagnoses Primary osteoarthritis of left foot Capsulitis of left foot Procedures OR ARTHROCENTESIS ASPIR&/INJ SMALL JT/BURSA W/O US OR NJX AA&/STRD PLANTAR COMMON DIGITAL NERVES Nikolas Jha DPM [address] [address] Phone: tel: fax: Nikolas Jha DPM [address] [address] Phone: tel: fax: Referral ID Status Reason Start Date Expiration Date Visits Re quested Visits Authorized [id number] Closed 03/04/2023 04/04/2023 1 1 * In Office Procedure (Routine) - Closed Specialty Diagnoses / Procedures Referred By Heather santos Referred To Contact Diagnoses Tomlinson neuroma, left Procedures OR NJX AA&/STRD PLANTAR COMMON DIGITAL NERVES Nikolas Jha, SURENDRA [address] [facility] [address] [address] [place] [address] Phone: tel: fax: Nikolas Jha DPM [address] [facility] [address] [address] Phone: tel: fax: Referral ID Status Reason Start Date Expiration Date Visits Re quested Visits Authorized [id number] Closed 03/05/2023 03/04/2024 1 1 Reason for Visit * Reason Comments Foot Pain left foot * In Office Procedure (Routine) - Closed Specialty Diagnoses / Procedures Referred By Contac t Referred To Contact Diagnoses Primary osteoarthritis of left foot Capsulitis of left foot Procedures OR ARTHROCENTESIS ASPIR&/INJ SMALL JT/BURSA W/O US OR NJX AA&/STRD PLANTAR COMMON DIGITAL NERVES Nikolas Jha, LEXM [address] [address] Phone: tel: fax: Nikolas Jha DPM [address] [address] Phone: tel: fax: Referral ID Status Reason Start Date Expiration Date Visits Re quested Visits Authorized [id number] Closed 03/04/2023 04/04/2023 1 1 Encounter Details Date Type Department Care Team (Latest Contact Info) Description 03/04/2023 1:30 PM EDT Office Visit [facility] Podiatry [address] [place] [phone] Nikolas Jha DPM [address] [facility] [place] [address] [place] [phone] Tomlinson neuroma, left (Primary Dx); Primary osteoarthritis of left foot; Capsulitis of [...] Pressure - - Pulse - - Temperature 36.8 ??C (98.2 ??F) 03/04/2023 1:19 PM ED T Respiratory Rate - - Oxygen Saturation - - Inhaled Oxygen Concentration - - Weight 92.3 kg (203 lb 6.4 oz) 03/04/2023 1:19 P M EDT Height 170.2 cm (5' 7 ) 03/04/2023 1:19 PM EDT Body Mass Index 31.86 03/04/2023 1:19 PM EDT documented in this encounter Functional [...] Progress Notes * Nikolas Jha DPM - 03/04/2023 1:30 PM EDT Images from the original note were not included. Subjective: Patient ID: Juany Conn is a 72 y.o. female. Chief Complaint: Foot Pain (left foot/) HPI 72 y.o. female complains of Foot Pain (left foot/) Worsening pain left forefoot. Past Medical History: Diagnosis Date Anemia when [...] 1 TABLET EVERY DAY 90 Tablet 0 aspirin 81 mg tablet Take 81 mg by mouth daily. bisoprolol-hydrochlorothiazide (ZIAC) 5-6.25 mg per tablet Take 1 Tab by mouth daily. Cholecalciferol, Vitamin D3, 2,000 unit Oral Capsule Take by mouth daily. cyanocobalamin 100 mcg Oral Tablet Take by mouth daily. etodolac (LODINE) 500 mg Oral Tablet Take 500 mg by mouth 2 times daily. gabapentin (NEURONTIN) 100 mg Oral Capsule 300 mg. 1 metoclopramide HCl (REGLAN) 5 mg Oral Tablet Take 5 mg by mouth 2 times daily. oxybutynin (DITROPAN-XL) 5 mg Oral Tablet Extended Rel 24 hr Take 1 Tablet by mouth daily. 90 Tablet 3 potassium chloride SA (K-DUR;KLOR-CON) 20 mEq Oral Tab Sust.Rel. Particle/Crystal Take 20 mEq by mouth daily. rosuvastatin (CRESTOR) 10 mg Oral Tablet Take 10 mg by mouth daily. apixaban (ELIQUIS) 2.5 mg Oral Tablet Take 1 Tab by mouth 2 times daily for 10 days. (Patient not taking: Reported on 10/20/2018) 20 Tab 0 calcium polycarbophiL (FIBERCON) 625 mg Oral Tablet Take 625 mg by mouth daily. EVENING PRIMROSE OIL ORAL Take by mouth daily. HYDROcodone-acetaminophen (NORCO) 7.5-325 mg Oral Tablet Take 1 Tab by mouth every 6 hours as needed for Acute Pain (R52). montelukast (SINGULAIR) 10 mg Oral Tablet Take 10 mg by mouth every evening. oxyCODONE (ROXICODONE) 5 mg Oral Tablet Take [...] SYMMETRY ; Surgeon: Flaco Damon MD; Location: [facility]; Service: Plastics BREAST REDUCTION SURGERY Right 11/16/2015 Surgeon: Flaco Damon MD; Location: [facility]; Service: Plastics BREAST SURGERY Left 06/02/2015 BREAST RECONSTRUCTION 1ST STAGE WITH EXPANDERS ; Surgeon: Flaco Damon MD; Location: [facility]; Service: General CARPAL TUNNEL RELEASE Bilateral 02/12/2018 BILATERAL CARPAL TUNNEL RELEASE ; Surgeon: Francisco Javier Lepe MD; Location: [facility]; Service: Hand CHOLECYSTECTOMY COLONOSCOPY DENTAL SURGERY wisdom teeth extracted FOOT SURGERY Left 10/05/2010 hammertoes HIP SURGERY 2009 right total KNEE SURGERY 2007 right TKR TONSILLECTOMY TOTAL KNEE ARTHROPLASTY Left 09/29/2018 LEFT TOTAL KNEE ARTHROPLASTY; Surgeon: Brian Newman MD; Location: [facility]; Service: Orthopedics Family History [...] Stability: Not on file Review of Systems Constitutional: Positive for activity change. Eyes: Positive for visual disturbance (wears glasses). Musculoskeletal: Positive for arthralgias, gait problem and joint swelling. Neurological: Positive for numbness (left foot). All other systems reviewed and are negative. Objective: Vitals: 03/04/23 1319 Temp: 98.2 ??F (36.8 ??C) TempSrc: Forehead Weight: 203 lb 6.4 oz (92.3 kg) Height: 5' 7 (1.702 m) Body mass index is 31.86 kg/m??. No results found for: HGBA1C Physical [...] Diagnoses and all orders for this visit: Davi neuroma, left - OR NJX AA&/STRD PLANTAR COMMON DIGITAL NERVES Primary osteoarthritis of left foot - OR ARTHROCENTESIS ASPIR&/INJ SMALL JT/BURSA W/O US Capsulitis of left foot - OR ARTHROCENTESIS ASPIR&/INJ SMALL JT/BURSA W/O US Other orders - triamcinolone acetonide (KENALOG-40) injection 40 mg - dexAMETHasone (DECADRON) injection 4 mg - lidocaine 1% 10 mg/mL (1 %) injection 1 mL Neuroma left 2-3 interspace. Capsulitis DJD 2-3 mp joints. Injection/nerve block left 2nd 3rd common digital nerve. Injected left 2nd 3rd MPJ. Tolerated injections well. F/U 2 months. No follow-ups on file. documented in this encounter Plan of Treatment Upcoming Encounters Date Type Department Care Team (Late st Contact Info) Description 05/24/2024 10:30 AM EST Office Visit [facility] Podiatry [address] [place] [phone] Nikolas Jha DPM [address] [place] [address] [place] [phone] Scheduled Orders Name Type Priority Associated Diagnoses Orde r Schedule OR NJX AA&/STRD PLANTAR COMMON DIGITAL NERVES OR Charge Routine Tomlinson neuroma, left Ordered: 03/05/2023 OR ARTHROCENTESIS ASPIR&/INJ SMALL JT/BURSA W/O US OR Charge Routine Primary osteoarthritis of left foot Capsulitis of left foot Ordered: 03/05/2023 documented as of this encounter Goals Goal Patient Goal Type Associated Problems Recent Progress Patient-Stated? Author Breast [facility] Breast Health On track( 021 9:11 AM EDT) No Maisha Kirk, CRISTOBAL Note: Patient will be compliant with monthly Self Breast Exams and is aware of to who to contact for any unusual or concerning findings. Breast [facility] Breast Health No Alexia Kim RN Note: Patient will be compliant with monthly Self Breast Exams and is aware of to who to contact for any unusual or concerning findings. documented as of this encounter Visit Diagnoses Diagnosis Tomlinson neuroma, left- Primary Primary osteoarthritis of left foot Capsulitis of left foot Enthesopathy of ankle and tarsus, unspecified documented in this encounter Administered Medications Inactive Administered Medications - up to 1 most recent administrations Medication Order MAR Action Action Date Dose Rate Site dexAMETHasone (DECADRON) injection 4 mg 4 mg, Tendon Sheath Injection, ONCE, 1 dose, On Fri03/04/23 at 1515, Dx: 1. Tomlinson neuroma, left 2. Primary osteoarthritis of left foot 3. Capsulitis of left footIndications:Tomlinson neuroma, left,Primary osteoarthritis of left foot,Capsulitis of left foot Given 03/04/2023 3:07 PM EDT 4 mg lidocaine 1% 10 mg/mL (1 %) injection 1 mL 1 mL, Other, ONCE, 1 dose, On Tu03/04/23 at 1515, Dx: 1. Tomlinson neuroma, left 2. Primary osteoarthritis of left foot 3. Capsulitis of left footIndications:Tomlinson neuroma, left,Primary osteoarthritis of left foot,Capsulitis of left foot Given 03/04/2023 3:07 PM EDT 1 mL triamcinolone acetonide (KENALOG-40) injection 40 mg 40 mg, Tendon Sheath Injection, ONCE, 1 dose, On Fri03/04/23 at 1515, Dx: 1. Tomlinson neuroma, left 2. Primary osteoarthritis of left foot 3. Capsulitis of left footIndications:Tomlinson neuroma, left,Primary osteoarthritis of left foot,Capsulitis of left foot Given 03/04/2023 3:07 PM EDT 40 mg documented in this encounter Additional Health Concerns Assessment Noted Time A fall risk assessment has been complete d for the patient 04/26/2019 3:55 PM EST documented as of this encounter Care Teams Electrical Continuity Tester Relationship Specialty Start Date End Date Carlos Manuel Barragan [address] [place] [address] [address] [place] [address] PCP - General 07/03/10 documented as of this encounter
--- OUTSIDE RECORDS SUMMARY | 2024-05-04 22:51 | XMS_ITS | Encounter Summary ---
Author Organization [place] [address] Care Team Providers Care Circular Shear Operator Name Role Phone Carlos Manuel Barragan Primary Care Provider [phone] Reason for Visit * Reason Comments Foot Problem pre op on left foot Bunions left foot Encounter Details Date Type Department Care Team (Late st Contact Info) Description 03/04/2024 11:00 AM EDT Office Visit [facility]P Podiatry [address] [place] [phone] Nikolas Jha, [facility] [address] [facility] [address] [address] [place] [address] [place] [phone] Hallux valgus with bunions of left [...] - - Temperature 36.5 ??C (97.7 ??F) 03/04/2024 11:37 AM E DT Respiratory Rate - - Oxygen Saturation - - Inhaled Oxygen Concentration - - Weight 87.7 kg (193 lb 6.4 oz) 03/04/2024 11:37 AM EDT Height 170.2 cm (5' 7 ) 03/04/2024 11:37 AM EDT Body Mass Index 30.29 03/04/2024 11:37 AM EDT documented in this encounter Functional [...] Progress Notes * Nikolas Jha DPM - 03/04/2024 11:00 AM EDT Images from the original note were not included. Subjective: Patient ID: Juany Conn is a 73 y.o. female. Chief Complaint: Foot Problem (pre op on left foot/) and Bunions (left foot/) HPI 73 y.o. female complains of Foot Problem (pre op on left foot/) and Bunions (left foot/) Patient scheduled have surgery on her right foot. She presents today for consultation of her left foot. She states her left it has been hurting her worse wants to proceed with surgery left foot. Painful bunion, painful hammertoes and painful bunionette. Having a hard time standing, walking, wearing shoes, doing her job. Past Medical History: Diagnosis Date Anemia when younger only Arthritis knees, hips,back BRCA negative Breast cancer (HCC) 02/09/15 [facility], grade 1. No receptors at this time [...] tablet Take 81 mg by mouth daily. calcium polycarbophiL (FIBERCON) 625 [...] 6-8 hours as needed 40 Tab 0 valsartan (DIOVAN) 160 mg Oral Tablet Take 160 mg by mouth daily. bisoprolol-hydrochlorothiazide (ZIAC) 5-6.25 mg per tablet Take 1 Tablet by mouth daily. (Patient not taking: Reported on 03/04/2024) No current facility-administered medications on file prior to visit. Past Surgical History: Procedure Laterality Date BREAST BIOPSY Left 02/07/15 x 4 lymph nodes removed BREAST BIOPSY Left 03/03/2015 BREAST RECONSTRUCTION Left 11/16/2015 LEFT BREAST STAGE 2 RECONSTRUCTION WITH IMPLANT RIGHT BREAST REDUCTION FOR SYMMETRY ; Surgeon: Flaco Damon MD; Location: [facility]; Service: Plastics BREAST REDUCTION SURGERY Right 11/16/2015 Surgeon: Flaco Damon MD; Location: [facility]; Service: Plastics BREAST SURGERY Left 06/02/2015 BREAST RECONSTRUCTION 1ST STAGE WITH EXPANDERS ; Surgeon: Flaco Damon MD; Location: [facility]; Service: General CARPAL TUNNEL RELEASE Bilateral 02/12/2018 BILATERAL CARPAL TUNNEL RELEASE ; Surgeon: Francisco Javier Lepe MD; Location: [facility]; Service: Hand CHOLECYSTECTOMY COLONOSCOPY DENTAL SURGERY wisdom teeth extracted FOOT SURGERY Left 10/05/2010 hammertoes HIP SURGERY 2008 right total KNEE SURGERY 2007 right TKR TONSILLECTOMY TOTAL KNEE ARTHROPLASTY Left 09/29/2018 LEFT TOTAL KNEE ARTHROPLASTY; Surgeon: Brian Newman MD; Location: [facility]; Service: Orthopedics Family History [...] file Social Connections: Unknown (03/03/2023) Received from [facility] Family and Community Support Help with Day-to-Day Activities: Not on file Lonely or Isolated: Not on file Intimate Partner Violence: Not At Risk (06/30/2023) Received from [facility] Abuse Screen Feels Unsafe at Home or Work/School: no Feels Threatened by Someone: no Does Anyone Try to Keep You From Having Contact with Others or Doing Things Outside Your Home?: no Physical Signs of Abuse Present: no Housing Stability: Unknown (05/16/2023) Received from [facility] Housing Stability Current Living Arrangements: Not on file Potentially Unsafe Housing Conditions: Not on file Review of Systems Constitutional: Positive for activity change. Eyes: Positive for visual disturbance (wears glasses). Musculoskeletal: Positive for arthralgias, gait problem, joint swelling and myalgias. All other systems reviewed and are negative. Objective: Vitals: 03/04/24 1137 Temp: 97.7 ??F (36.5 ??C) TempSrc: Forehead Weight: 193 lb 6.4 oz (87.7 kg) Height: 5' 7 (1.702 m) Body mass index is 30.29 kg/m??. No results found for: HGBA1C No results found. Physical Exam Constitutional: Appearance: Normal appearance. She [...] deformity, tenderness or crepitus. Feet: Feet: Comments: Marked hallux valgus of bunion deformity with limited PROM which is painful and crepitus with hallux rigidus. Rigid hammertoe fourth and fifth toes. Bunionette. Skin: General: Skin is warm and dry. [...] left foot Hammer toe of left foot Patient has marked hallux valgus with bunion deformity with metatarsal primus varus left foot with hallux rigidus. Painful hammertoe fourth and fifth toes as well as painful bunionette. Discussed nonoperative and operative treatment options. Patient states she is ready proceed with surgery. She will need first MP joint releases which will address her metatarsals primus varus, hallux valgus, bunion deformity and hallux rigidus. Also she will need fifth metatarsal osteotomy. Also hammertoe repair fourth and fifth toes. Discussed procedure, post-op course, potential benefits and risks, potential complications, alternative tx options, all questions answered, no guarantees made, consent form signed. Patient to be scheduled on 03/22/24. I have reviewed this note and it accurately reflects my work and decisions made during this visit Nikolas Jha DPM. documented in this encounter Plan of Treatment Upcoming Encounters Date Type Department Care Team (Late st Contact Info) Description 05/24/2024 10:30 AM EST Office Visit [facility] Podiatry [address] [place] [phone] Nikolas Jha DPM [address] [place] [address] [place] [phone] documented as of this encounter Goals Goal Patient Goal Type Associated Problems Recent Progress Patient-Stated? Author Breast Health Breast Health On track( 021 9:11 AM EDT) No Faeth, Maisha, RN Note: Patient will be compliant with monthly Self Breast Exams and is aware of to who to contact for any unusual or concerning findings. Breast [facility] Breast Health Alexia Williamson RN Note: Patient will be compliant with monthly Self Breast Exams and is aware of to who to contact for any unusual or concerning findings. documented as of this encounter Visit Diagnoses Diagnosis Hallux valgus with bunions of left foot- Primary Bunionette of left foot Hammer toe of left foot documented in this encounter Historical Medications * This list may reflect changes made after this encounter. valsartan (DIOVAN) 160 mg Oral Tablet Take 160 mg by mouth daily. added in this encounter Additional Health Concerns Assessment Noted Time A fall risk assessment has been complete d for the patient 10/21/2023 2:54 PM EDT documented as of this encounter Care Teams Circular Shear Operator Relationship Specialty Start Date End Date Carlos Manuel Barragan [address] [place] [address] [address] [place] [address] PCP - General 07/03/10 documented as of this encounter
--- OUTSIDE RECORDS SUMMARY | 2024-05-04 22:51 | XMS_ITS | Encounter Summary ---
Author Organization [place] [address] Care Team Providers Care Film Flat Inspector Name Role Phone Carlos Manuel Barragan Primary Care Provider [phone] Reason for Visit * Reason Comments Medication Refill Encounter Details Date Type Department Care Team (Late st Contact Info) Description 03/06/2023 Refill [facility] [place] [address] Caty Moy PA-C [address] [place] [address] [place] [address] Medication Refill Social History Tobacco Use Types Packs/Day [...] stephon Trejo APRN documented in this encounter Ordered Prescriptions Prescription Sig Dispense Quantity Refills Last Filled Start Date End Date oxybutynin (DITROPAN-XL) 5 mg Oral Tablet Extended Rel 24 hr TAKE 1 TABLET BY MOUTH DAILY. 90 Tablet 03/07/2023 03/16/2024 documented in this encounter Plan of Treatment Upcoming Encounters Date Type Department Care Team (Late st Contact Info) Description 05/24/2024 10:30 AM EST Office Visit [facility] Podiatry [address] [place] [phone] Nikolas Jha Mitzi [address] [place] [address] [place] [phone] documented as of this encounter Goals Goal Patient Goal Type Associated Problems Recent Progress Patient-Stated? Author Breast [facility] Breast Health On track( 021 9:11 AM EDT) No Maisha Kirk, RN Note: Patient will be compliant with monthly Self Breast Exams and is aware of to who to contact for any unusual or concerning findings. Breast [facility] Breast Health No Alexia Kim RN [...] hr Take 1 Tablet by mouth daily. 01/31/2022 03/07/2023 documented as of this encounter Additional Health Concerns Assessment Noted Time A fall risk assessment has been complete d for the patient 04/26/2019 3:55 PM EST documented as of this encounter Care Teams Film Flat Inspector Relationship Specialty Start Date End Date Carlos Manuel Barragan [facility] [place] [facility] [address] [place] [address] PCP - General 07/03/10 documented as of this encounter
--- OUTSIDE RECORDS SUMMARY | 2024-05-04 22:51 | XMS_ITS | Encounter Summary ---
Author Organization [facility] [place] [address] Care Team Providers Care Neighborhood Coordinator Name Role Phone Carlos Manuel Barragan Primary Care Provider [phone] Encounter Details Date Type Department Care Team (Latest Contact Info) Description 11/08/2021 Travel Social History Tobacco Use Types Packs/Day [...] AM EDT documented as of this encounter Functional Status [...] 1:49 PM TRISTIAN Mitzi Archersa Neil APRN * Does this person have [...] Jimenezsa Neil APRN documented in this encounter Plan of Treatment Upcoming Encounters Date Type Department Care Team (Late st Contact Info) Description 05/24/2024 10:30 AM EST Office Visit [facility] Podiatry [address] [place], [place] [phone] Nikolas Jha, [address] [place] [address] [place] [phone] documented as of this encounter Goals [...] documented as of this encounter Care Teams Neighborhood Coordinator Relationship Specialty Start Date End Date Carlos Manuel Barragan [address] [place] [facility] [address] [place] [address] PCP - General 07/03/10 documented as of this encounter
--- OUTSIDE RECORDS SUMMARY | 2024-05-04 22:51 | XMS_ITS | Encounter Summary ---
Author Organization [place] [address] Care Team Providers Care Farmworker Vegetable Name Role Phone Carlos Manuel Barragan Primary Care Provider [phone] Reason for Referral * In Office Procedure (Routine) - Authorization Not Needed Specialty Diagnoses / Procedures Referred By Heather santos Referred To Contact Podiatry Diagnoses Henderson neuroma, left Procedures SD DESTRUCT BY NEURO AGENT; PLANTAR DIGITAL NERVE Nikolas Jha DPM [address] [place] [address] Phone: tel: fax: Nikolas Jha DPM [address] Phone: tel: fax: Referral ID Status Reason Start Date Expiration Date Visits Requested Visits Authorized [id number] Authorization Not Needed 3 05/21/2024 1 1 Reason for Visit * Reason Comments Foot Pain left foot * In Office Procedure (Routine) - Authorization Not Needed Specialty Diagnoses / Procedures Referred By Heather t Referred To Contact Podiatry Diagnoses Henderson neuroma, left Procedures SD DESTRUCT BY NEURO AGENT; PLANTAR DIGITAL NERVE Nikolas Jha, DPM [address] [address] Phone: tel: fax: Nikolas Jha Neil, DPM [address] [address] Phone: tel: fax: Referral ID Status Reason Start Date Expiration Date Visits Requested Visits Authorized [id number] Authorization Not Needed 05/21/2024 1 1 Encounter Details Date Type Department Care Team (Late st Contact Info) Description 05/22/2023 2:45 PM EST Office Visit [facility] [address] [place] [phone] Abhijeet Nikolas A, DPM [address] [phone] Left foot pain (Primary Dx); [...] - - Temperature 36.8 ??C (98.2 ??F) 05/22/2023 2:51 PM ES T Respiratory Rate - - Oxygen Saturation - - Inhaled Oxygen Concentration - - Weight 94.3 kg (208 lb) 05/22/2023 2:51 PM EST Height 170.2 cm (5' 7 ) 05/22/2023 2:51 PM EST Body Mass Index 32.58 05/22/2023 2:51 PM EST documented in this encounter Functional Status * Is the person deaf or does he/she have serious difficulty hearing? Answer Date of Assessment Author No 06/03/2015 1:49 PM TRISTIAN Gianni Mitzi stephon Trejo APRN * Is the person blind or [...] TRISTIAN Gianni Mitzi stephon Trejo APRN documented as of this encounter Mental Status * Because of a physical, mental or emotional condition, does this person have serious difficulty concentrating, remembering or making decisions? Answer Entry Date Author No 06/03/2015 1:49 PM TRISTIAN Gianni Mitzi stephon Trejo APRN documented in this encounter Progress Notes * Nikolas Jha, SURENDRA - 05/22/2023 2:45 PM EST Images from the original note were not included. Subjective: Patient ID: Juany Conn is a 73 y.o. female. Chief Complaint: Foot Pain (left foot) HPI 73 y.o. female complains of Foot Pain (left foot) Patient presents for the second alcohol sclerosing injection for henderson's neuroma. Past [...] ; Surgeon: Flaco Damon MD; Location: [facility]; Service: Plastics BREAST REDUCTION SURGERY Right 11/16/2015 Surgeon: Flaco Damon MD; Location: [facility]; Service: Plastics BREAST SURGERY Left 06/02/2015 BREAST RECONSTRUCTION 1ST STAGE WITH EXPANDERS ; Surgeon: Flaco Damon MD; Location: [facility] OR; Service: General CARPAL TUNNEL RELEASE Bilateral 02/12/2018 BILATERAL CARPAL TUNNEL RELEASE ; Surgeon: Francisco Javier Lepe MD; Location: [facility]; Service: Hand CHOLECYSTECTOMY COLONOSCOPY DENTAL SURGERY wisdom teeth extracted FOOT SURGERY Left 10/05/2010 hammertoes HIP SURGERY 2009 right total KNEE SURGERY 2007 right TKR TONSILLECTOMY TOTAL KNEE ARTHROPLASTY Left 09/29/2018 LEFT TOTAL KNEE ARTHROPLASTY; Surgeon: Brian Newman MD; Location: [facility]; Service: Orthopedics Family History [...] Stability: Not on file Review of Systems Objective: Vitals: 05/22/23 1451 Temp: 98.2 ??F (36.8 ??C) TempSrc: Forehead Weight: 208 lb (94.3 kg) Height: 5' 7 (1.702 m) Body mass index is 32.58 kg/m??. No results found for: HGBA1C Physical [...] Left foot pain Henderson neuroma, left - SD DESTRUCT BY NEURO AGENT; PLANTAR DIGITAL NERVE Alcohol sclerosing injection #2 of 6 administered to the left second and third interspace for henderson's neuroma. Patient tolerated injection well. Return in about 2 weeks (around 06/05/2023), or if symptoms worsen or fail to [...] 10:30 AM EST Office Visit [facility] [address] [place] [phone] Nikolas Jha DPM [address] [place] [address] [place] [phone] Scheduled Orders Name Type Priority Associated Diagnoses Orde r Schedule SD DESTRUCT BY NEURO AGENT; PLANTAR DIGITAL NERVE SD Charge Routine Henderson neuroma, left Ordered: 05/22/2023 documented as of this encounter Goals Goal Patient Goal Type Associated Problems Recent Progress Patient-Stated? Author [facility] On track( 021 9:11 AM EDT) Maisha Anderson, RN Note: Patient will be compliant with monthly Self Breast Exams and is aware of to who to contact for any unusual or concerning findings. [facility] No Alexia Kim RN Note: Patient [...] documented as of this encounter Care Teams Farmworker Vegetable Relationship Specialty Start Date End Date Carlos Manuel Barragan [address] [place] [address] [address] [place] [address] PCP - General 07/03/10 documented as of this encounter
--- OUTSIDE RECORDS SUMMARY | 2024-05-04 22:51 | XMS_ITS | Encounter Summary ---
Author Organization [place] [address] Care Team Providers Care Animal Care Worker Name Role Phone Carlos Manuel Barragan Primary Care Provider [phone] Reason for Referral * In Office Procedure (Routine) - Authorization Not Needed Specialty Diagnoses / Procedures Referred By Heather santos Referred To Contact Podiatry Diagnoses Tomlinson neuroma, left Procedures NE DESTRUCT BY NEURO AGENT; PLANTAR DIGITAL NERVE Nikolas Jha DPM [address] Phone: tel: fax: Nikolas Jha DPM [address] Phone: tel: fax: Referral ID Status Reason Start Date Expiration Date Visits Requested Visits Authorized [id number] Authorization Not Needed 07/21/2023 07/20/2024 1 1 Reason for Visit * Reason Comments Injections left foot * In Office Procedure (Routine) - Authorization Not Needed Specialty Diagnoses / Procedures Referred By Heather t Referred To Contact Podiatry Diagnoses Tomlinson neuroma, left Procedures NE DESTRUCT BY NEURO AGENT; PLANTAR DIGITAL NERVE Nikolas Jha, DPM [address] [address] Phone: tel: fax: Nikolas Jha, DPM [address] [address] Phone: tel: fax: Referral ID Status Reason Start Date Expiration Date Visits Requested Visits Authorized [id number] Authorization Not Needed 07/21/2023 07/20/2024 1 1 Encounter Details Date Type Department Care Team (Late st Contact Info) Description 07/21/2023 3:00 PM EST Office Visit [facility] [address] [place] [phone] Nikolas Jha, DPMitzi [address] [address] Tomlinson neuroma, left (Primary Dx) Social History Tobacco Use [...] - - Temperature 36.6 ??C (97.9 ??F) 07/21/2023 3:11 PM ES T Respiratory Rate - - Oxygen Saturation - - Inhaled Oxygen Concentration - - Weight 94.8 kg (209 lb) 07/21/2023 3:11 PM EST Height 170.2 cm (5' 7 ) 07/21/2023 3:11 PM EST Body Mass Index 32.73 07/21/2023 3:11 PM EST documented in this encounter Functional [...] Progress Notes * Nikolas Jha, SURENDRA - 07/21/2023 3:00 PM EST Subjective: Patient ID: Juany Conn is a 73 y.o. female. Chief Complaint: Injections (left foot/) HPI 73 y.o. female complains of Injections (left foot/) Presents for 6 of 6 alcohol sclerosing injection left second third interspace Tomlinson's neuroma. Past Medical History: [...] SYMMETRY ; Surgeon: Flaco Damon MD; Location: [facility]; Service: Plastics BREAST REDUCTION SURGERY Right 11/16/2015 Surgeon: Flaco Damon MD; Location: [facility]; Service: Plastics BREAST SURGERY Left 06/02/2015 BREAST RECONSTRUCTION 1ST STAGE WITH EXPANDERS ; Surgeon: Flaco Damon MD; Location[facility]; Service: General CARPAL TUNNEL RELEASE Bilateral 02/12/2018 BILATERAL CARPAL TUNNEL RELEASE ; Surgeon: Francisco Javier Lepe MD; Location: [facility]; Service: Hand CHOLECYSTECTOMY COLONOSCOPY DENTAL SURGERY wisdom teeth extracted FOOT SURGERY Left 10/05/2010 hammertoes HIP SURGERY 2009 right total KNEE SURGERY 2008 right TKR TONSILLECTOMY TOTAL KNEE ARTHROPLASTY Left 09/29/2018 LEFT TOTAL KNEE ARTHROPLASTY; Surgeon: Brian Newman MD; Location: [facility]; Service: Orthopedics Family History Problem [...] of Systems Eyes: Positive for visual disturbance (wear glasses). Hematological: Bruises/bleeds easily. All other systems reviewed and are negative. Objective: Vitals: 07/21/23 1511 Temp: 97.9 ??F (36.6 ??C) TempSrc: Forehead Weight: 209 lb (94.8 kg) Height: 5' 7 (1.702 m) Body mass index is 32.73 kg/m??. No results found for: HGBA1C Physical Exam Assessment and Plan: Diagnoses and all orders for this visit: Tomlinson neuroma, left - NE DESTRUCT BY NEURO AGENT; PLANTAR DIGITAL NERVE 6 of 6 sclerosing alcohol injections administered to the left second third intermetatarsal space neuroma. Elevated well. Follow-up in 6 weeks. No follow-ups on file. documented in this encounter Plan of Treatment Upcoming Encounters Date Type Department Care Team (Late st Contact Info) Description 05/24/2024 10:30 AM EST Office Visit [facility] [place] [address] [place] [phone] Nikolas Jha DPM [address] [place] [address] Scheduled Orders Name Type Priority Associated Diagnoses Orde r Schedule NE DESTRUCT BY NEURO AGENT; PLANTAR DIGITAL NERVE NE Charge Routine Tomlinson neuroma, left Ordered: 07/21/2023 documented as of this encounter Goals Goal Patient Goal Type Associated Problems Recent Progress Patient-Stated? Author [facility] On track( 021 9:11 AM EDT) Maisha Anderson, RN Note: Patient will be compliant with monthly Self Breast Exams and is aware of to who to contact for any unusual or concerning findings. [facility] No Alexia Kim, CRISTOBAL Note: Patient [...] documented as of this encounter Care Teams Animal Care Worker Relationship Specialty Start Date End Date Carlos Manuel Barragan [address] [facility] [address] [place] [address] PCP - General 07/03/10 documented as of this encounter
--- OUTSIDE RECORDS SUMMARY | 2024-05-04 22:52 | XMS_ITS | Encounter Summary ---
Author Organization [facility] Address [address] [place] [address] Care Team Providers Care Parts Processor Name Role Phone Carlos Manuel Barragan Primary Care Provider [phone] Reason for Visit * Reason Onset Date Comments Schedule Appointment 07/05/2021 Encounter Details Date Type Department Care Team (Late st Contact Info) Description 07/05/2021 Telephone [facility] [place] [address] [place] [address] Libertad Curtis RT Schedule Appointment Social History Tobacco Use Types Packs/Day Years [...] Author No 06/03/2015 1:49 PM Mitzi JimenezCAMPBELL * Does this person have difficulty dressing or bathing? Answer Date of Assessment Author No 06/03/2015 1:49 PM Mitzi JimenezCAMPBELL * Because of a physical, mental or [...] Jimenez CAMPBELL Trejo documented in this encounter Miscellaneous Notes * Telephone Encounter - Libertad Curtis RT - 07/05/2021 2:35 PM EST Referral for VV consult / patient will call back to schedule documented in this encounter Plan of Treatment Upcoming Encounters Date Type Department Care Team (Late st Contact Info) Description 05/24/2024 10:30 AM EST Office Visit [facility] [address] [place] [phone] [address]ha [address] [place] [phone] documented as of this encounter Goals [...] documented as of this encounter Care Teams Parts Processor Relationship Specialty Start Date End Date Carlos Manuel [facility] [address] [place] [address] PCP - General 07/03/10 documented as of this encounter
--- OUTSIDE RECORDS SUMMARY | 2024-05-04 22:52 | XMS_ITS | Encounter Summary ---
Author Organization [facility] [address] Care Team Providers Care Coding Compliance Manager Name Role Phone Carlos Manuel Barragan Primary Care Provider [phone] Encounter Details Date Type Department Care Team (Latest Contact Info) Description 03/24/2020 Travel Social History Tobacco Use Types Packs/Day Years Used Date Smoking Tobacco: Never Smokeless Tobacco: Never Alcohol Use Standard Drinks/Week Comments Yes 0 (1 standard drink = 0.6 oz pur e alcohol) socially Sexually Active Control Partners Comments Never Comments No Sex and Gender Information Value Date Recorded Sex Assigned at Not on file Legal Sex Female 10:36 AM EDT Gender Identity Not on file Sexual Orientation Not on file COVID-19 Exposure Response Date Recorded In the last month, have you been in contact with someone who was confirmed or suspected to have Coronavirus / COVID-19? No / Unsure 03/24/2020 9:18 AM EDT documented as of this encounter [...] 10:30 AM EST Office Visit [facility] [address] [place] [phone] Nikolas Jha Mitzi [address] [place] [address] [address] [place] [address] documented as of this encounter Goals Goal Patient Goal Type Associated Problems Recent Progress Patient-Stated? Author [facility] On [facility]( 021 9:11 AM EDT) Maisha Anderson RN Note: Patient will be compliant with [...] documented as of this encounter Care Teams Coding Compliance Manager Relationship Specialty Start Date End Date Carlos Manuel Barragan [address] [facility] [address] [place] [address] PCP - General 07/03/10 documented as of this encounter
--- OUTSIDE RECORDS SUMMARY | 2024-05-04 22:52 | XMS_ITS | Encounter Summary ---
Author Organization [place] [address] Care Team Providers Care Flanging Operator Name Role Phone Carlos Manuel Barragan Primary Care Provider [phone] Reason for Visit * Reason Comments Medication Refill Encounter Details Date Type Department Care Team (Late st Contact Info) Description 04/12/2021 Refill [facility] [place] [address] Caty Moy PA-C [address] [place] [address] [place] [address] Medication Refill Social History Tobacco Use Types [...] TABLET BY MOUTH DAILY. 90 Tablet 3 04/12/2021 01/31/2022 documented in this encounter Plan of Treatment Upcoming Encounters Date Type Department Care Team (Late st Contact Info) Description 05/24/2024 10:30 AM EST Office Visit [facility] [address] [place] [phone] Nikolas Jha Mitzi [address] [place] [address] [address] [place] [phone] documented as of this encounter Goals [...] hr Take 1 Tablet by mouth daily. 01/11/2021 04/12/2021 documented as of this encounter Additional Health Concerns Assessment Noted Time A fall risk assessment has been complete d for the patient 04/26/2019 3:55 PM EST documented as of this encounter Care Teams Flanging Operator Relationship Specialty Start Date End Date Carlos Manuel Barragan [address] [place] [address] [address] [place] [address] PCP - General 07/03/10 documented as of this encounter
--- OUTSIDE RECORDS SUMMARY | 2024-05-04 22:52 | XMS_ITS | Encounter Summary ---
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 Name Role Phone Carlos Manuel Barragan Primary Care Provider [phone] Reason for Visit * Reason Comments Annual Exam Encounter Details Date Type Department Care Team (Latest Contact Info) Description 10/27/2019 9:20 AM EDT - 10/27/2019 11:59 PM EDT Hospital Encounter [facility] [place] [address] Caty Moy PA-C [address] [place] [address] [place] [address] Malignant neoplasm of left breast in female, estrogen receptor positive, unspecified site of breast (HCC) (HCC) (Primary Dx); Encounter for follow-up surveillance of breast cancer; Encounter for monitoring aromatase inhibitor therapy; Osteopenia, unspecified location Discharge Disposition: Home or Self Care Social [...] have Coronavirus / COVID-19? No / Unsure 10/26/2019 12:06 PM EDT documented as of this encounter Last Filed Vital Signs Vital Sign Reading Time Taken Comments Blood Pressure 142/81 10/27/2019 9:40 AM EDT Pulse 74 10/27/2019 9:40 AM EDT Temperature 36.9 ??C (98.4 ??F) 10/27/2019 9:40 AM ED T Respiratory Rate - - Oxygen Saturation - - Inhaled Oxygen Concentration - - Weight 93 kg (205 lb) 10/27/2019 9:40 AM EDT Height 161.3 cm (5' 3.5 ) 10/27/2019 9:40 AM EDT Body Mass Index 35.74 10/27/2019 9:40 AM EDT documented in this encounter Functional [...] unit Oral Capsule Take by mouth daily. montelukast (SINGULAIR) 10 mg Oral Tablet Take 10 mg by mouth every evening. rosuvastatin (CRESTOR) 10 mg Oral Tablet Take 10 mg by mouth daily. documented as of this encounter Discharge Disposition Disposition Code Departure Means Destination Home or Self Care documented in this encounter Progress Notes * Kristine Hill RN - 10/27/2019 9:40 AM EDT Senia presents to breast center for annual follow up. Imaging completed ,right breast mammo , in May. DEXA March 2019. Patient is ambulatory,does not use assistive device, denies any unexplained falls within the past six months and oriented to person, place and time. Patient appears to be well nourished. Denies any new breast lumps/bumps or nipple discharge. Denies any bone pain/back aches, SOB. Deniesany recent illness. No new cancers in family to report. Reports performing monthly SBE/CWE Continues to take Arimidex without complaint and Vitamin D daily . P-Knowledge deficit related to continued breast health G-Educate I-BABS Galeana in to examine and evaluate. CBECWE negative. Reviewed imaging. Encouraged to continue taking evening primrose oil for breast pain. ?? Encouraged monthly self breast exam and report any abnormal finding. Reviewed self breast exam instructions. Written material provided. Encouraged to report any new lumps/bumps or skin changes. Return in - one year Imaging - screening mammo, right Continue to take Vitamin D and Arimidex. Reviewed bone health information and exercises. Encouragement and emotional help provided. * Caty Moy PA-C - 10/27/2019 9:40 AM EDT Images from the original note were not included. Subjective: Ms. Alarcon is here for a scheduled routine follow-up visit History of Present Illness The patient is a 69 y.o. female who presents for annual follow-up of left breast ILC, ER/Pr positive, Her-2 negative. She is 4.5 years from a left mastectomy with reconstruction. She takes Arimidex and Vitamin D3 daily. She is following with ortho for back pain, but is otherwise feeling well. Her breast pain from the fall is improved. She did have her thyroid evaluated for nodules, but states everything looked good.Pt denies any new breast lumps, nipple discharge, back aches, bone pains, or SOB. No new family members with breast, ovarian, prostate, pancreatic or melanoma cancer. Her last DEXA scan was in 03/2019 and showed osteopenia. She had a right Dx Mammo and u/s in 03/13 that was negative. HPI Past Medical History: Diagnosis Date ??? Anemia [...] SYMMETRY ; Surgeon: Flaco Damon MD; Location: [facility]; Service: Plastics ??? BREAST REDUCTION SURGERY Right 11/16/2015 Surgeon: Flaco Damon MD; Location: [facility]; Service: Plastics ??? BREAST SURGERY Left 06/02/2015 BREAST RECONSTRUCTION 1ST STAGE WITH EXPANDERS ; Surgeon: Flaco Damon MD; Location: [facility] OR; Service: General ??? CARPAL TUNNEL RELEASE Bilateral 02/12/2018 BILATERAL CARPAL TUNNEL RELEASE ; Surgeon: Francisco Javier Lepe MD; Location: [facility]; Service: Hand ??? CHOLECYSTECTOMY ??? COLONOSCOPY ??? DENTAL SURGERY wisdom teeth extracted ??? FOOT SURGERY Left 10/05/2010 hammertoes ??? HIP SURGERY 2009 right total ??? KNEE SURGERY 2008 right TKR ??? TONSILLECTOMY ??? TOTAL KNEE ARTHROPLASTY Left 09/29/2018 LEFT TOTAL KNEE ARTHROPLASTY; Surgeon: Brian Newman MD; Location: [facility]IN OR; Service: Orthopedics Family History Problem [...] ??? anastrozole (ARIMIDEX) 1 mg Oral Tablet Take 1 Tab by mouth daily. 90 Tab 3 ??? aspirin 81 mg tablet Take 81 mg by mouth daily. ??? bisoprolol-hydrochlorothiazide (ZIAC) 5-6.25 mg per tablet Take 1 Tab by mouth daily. ??? Cholecalciferol, Vitamin D3, 2,000 unit Oral Capsule Take by mouth daily. ??? EVENING PRIMROSE OIL ORAL Take by mouth daily. ??? gabapentin (NEURONTIN) 100 mg Oral Capsule 1 ??? montelukast (SINGULAIR) 10 mg Oral Tablet Take 10 mg by mouth every evening. ??? potassium chloride SA (K-DUR;KLOR-CON) 20 mEq [...] Take 625 mg by mouth daily. ??? HYDROcodone-acetaminophen (NORCO) 7.5-325 mg Oral Tablet Take 1 Tab by mouth every 6 hours as needed for Acute Pain (R52). ??? oxyCODONE (ROXICODONE) 5 mg Oral Tablet Take 1-2 Tabs by mouth every 4-6 hours as needed (Patient not taking: Reported on 07/15/2019) 30 Tab 0 ??? traMADol (ULTRAM) 50 mg Oral Tablet Take 1-2 Tabs by mouth every 6-8 hours as needed (Patient not taking: Reported on 10/20/2018) 40 Tab 0 No current facility-administered medications for this encounter. Allergies Allergen Reactions ??? Morphine Other (See Comments) confusion ??? Penicillins Rash Review of Systems Constitutional: Positive for fatigue. Negative for activity change, appetite change, chills, fever and unexpected weight change. HENT: Negative for dental problem, ear discharge, hearing loss, nosebleeds, sinus pressure, sore throat, tinnitus and trouble swallowing. Eyes: Negative for discharge and visual disturbance. Respiratory: Negative for cough, chest tightness, shortness of breath and wheezing. Cardiovascular: Negative for chest pain, palpitations and leg swelling. Gastrointestinal: Negative for abdominal pain, blood in stool, diarrhea, nausea and vomiting. Genitourinary: Negative for difficulty urinating, dysuria, frequency, hematuria, menstrual problem,vaginal bleeding and vaginal discharge. Musculoskeletal: Positive for arthralgias and back pain. Negative for joint swelling and neck pain. Skin: Negative for rash. Neurological: Negative for dizziness, syncope, speech difficulty, weakness, light-headedness and headaches. Hematological: Does not bruise/bleed easily. Psychiatric/Behavioral: Negative for agitation, confusion, decreased concentration, sleep disturbance and suicidal ideas. The patient is nervous/anxious. Objective: Vitals: 10/27/19 0940 BP: 142/81 BP Location: Right arm Patient Position: Sitting Pulse: 74 Temp: 98.4 ??F (36.9 ??C) TempSrc: Oral Weight: 205 lb (93 kg) Height: 5' 3.5 (1.613 m) Body mass index is 35.74 kg/m??. Physical Exam Vitals signs and nursing note reviewed. Exam conducted with a physician gynecologist present. Constitutional: Appearance: Normal appearance. She is well-developed and normal weight. HENT: Head: Normocephalic and atraumatic. Nose: Nose normal. Neck: Musculoskeletal: Neck supple. Thyroid: No thyroid mass, thyromegaly or thyroid tenderness. Cardiovascular: Rate and Rhythm: Normal rate. Pulmonary: Effort: Pulmonary effort is normal. Chest: Breasts: Breasts are asymmetrical. Right: Normal. No swelling, bleeding, inverted nipple, mass, nipple discharge, skin change or tenderness. Left: Absent. No swelling, bleeding, mass, skin change or tenderness. Comments: Negative right CBE, negative left chest wall exam Musculoskeletal: Normal range of motion. Lymphadenopathy: Upper Body: Right upper body: No supraclavicular or axillary adenopathy. Left upper body: No supraclavicular or axillary adenopathy. Skin: General: Skin is warm and dry. Neurological: Mental Status: She is alert and oriented to person, place, and time. Mental status is at baseline. Psychiatric: Attention and Perception: Attention normal. Mood and Affect: Mood normal. Speech: Speech normal. Behavior: Behavior normal. Behavior is cooperative. Thought Content: Thought content normal. Cognition and Memory: Cognition normal. Judgment: Judgment normal. Assessment and Plan: Juany was seen today for annual exam. Diagnoses and all orders for this visit: Malignant neoplasm of left breast in female, estrogen receptor positive, unspecified site of breast(HCC) - FARIDA by exam and imaging; imaging personally reviewed and discussed with radiologist and patient. Pt due for bilateral screening M/g in one year - Continue Arimidex and Vitamin D3 daily - Pt encouraged to continue monthly SBE. - Discussed importance of diet and exercise for risk reduction and overall health benefits. - Pt to return in one year for annual follow-up and imaging; will schedule today Encounter for follow-up surveillance of breast cancer Encounter for monitoring aromatase inhibitor therapy - tolerating well, will continue current therapy - Pt due for DEXA scan in 04/15 - Discussed importance of bone health, especially when taking an AI. Pt encouraged to continue Vitamin D3, Calcium, and weight bearing exercises Osteopenia, unspecified location documented in this encounter Miscellaneous Notes * Patient Instructions - Kristine Hill RN - 10/27/2019 9:40 AM EDT Images from the original note were not included. We would like to see you back in one year. This will be your fifth year anniversary! You are due for right breast screeing mammogram in February. You will receive a letter in the mailto remind you to schedule. Continue with monthly Self Breast Exams. Make sure you get 1200 mg of calcium/day. You may add additional calcium if you are not getting 1200 mg through your diet. You also want to make sure you continue to get 1000 mcg of Vitamin D daily. Increasing exercise like walking and lifting light weights can also help with bone health. Patient Education Breast Self-Awareness Breast self-awareness is knowing how your breasts look and feel. Doing breast self-awareness is important. It allows you to catch a breast problem early while it is still small and can be treated. All women should do breast self-awareness, including women who have had breast implants. Tell your doctor if you notice a change in your breasts. What you need: ?? A mirror. ?? A well-lit room. How to do a breast self-exam A breast self-exam is one way to learn what is normal for your breasts and to check for changes. Todo a breast self-exam: Look for changes 1. Take off all the clothes above your waist. 2. inspector screen printing front of a mirror in a room with good lighting. 3. Put your hands on your hips. 4. Push your hands down. 5. Look at your breasts and nipples in the mirror to see if one breast or nipple looks different from the other. Check to see if: ? The shape of one breast is different. ? The size of one breast is different. ? There are wrinkles, dips, and bumps in one breast and not the other. 6. Look at each breast for changes in the skin, such as: ? Redness. ? Scaly areas. 7. Look for changes in your nipples, such as: ? Liquid around the nipples. ? Bleeding. ? Dimpling. ? Redness. ? A change in where the nipples are. Feel for changes 1. Lie on your back on the floor. 2. Feel each breast. To do this, follow these steps: ? Pick a breast to feel. ? Put the arm closest to that breast above your head. ? Use your other arm to feel the nipple area of your breast. Feel the area with the pads of your three middle fingers by making small circles with your fingers. For the first coushatta, press lightly. For the second coushatta, press harder. For the third coushatta, press even harder. ? Keep making circles with your fingers at the different pressures as you move down your breast. Stop when you feel your ribs. ? Move your fingers a little toward the center of your body. ? Start making circles with your fingers again, this time going up until you reach your collarbone. ? Keep making up-and-down circles until you reach your armpit. Remember to keep using the three pressures. ? Feel the other breast in the same way. 3. Sit or senior analyst market intelligence the tub or shower. 4. With soapy water on your skin, feel each breast the same way you did in step 2 when you were lying on the floor. Write down what you find Writing down what you find can help you remember what to tell your doctor. Write down: ?? What is normal for each breast. ?? Any changes you find in each breast, including: ? The kind of changes you find. ? Whether you have pain. ? Size and location of any lumps. ?? When you last had your menstrual period. General tips ?? Check your breasts every month. ?? If you are , the best time to check your breasts is after you feed your baby or after you use a breast pump. ?? If you get menstrual periods, the best time to check your breasts is 5-7 days after your menstrual period is over. ?? With time, you will become comfortable with the self-exam, and you will begin to know if there are changes in your breasts. Contact a doctor if you: ?? See a change in the shape or size of your breasts or nipples. ?? See a change in the skin of your breast or nipples, such as red or scaly skin. ?? Have fluid coming from your nipples that is not normal. ?? Find a lump or thick area that was not there before. ?? Have pain in your breasts. ?? Have any concerns about your breast health. Summary ?? Breast self-awareness includes looking for changes in your breasts, as well as feeling for changes within your breasts. ?? Breast self-awareness should be done in front of a mirror in a well-lit room. ?? You should check your breasts every month. If you get menstrual periods, the best time to check your breasts is 5-7 days after your menstrual period is over. ?? Let your doctor know of any changes you see in your breasts, including changes in size, changes on the skin, pain or tenderness, or fluid from your nipples that is not normal. This information is not intended to replace advice given to you by your health care provider. Make sure you discuss any questions you have with your health care provider. Document Released: 10/28/2008 Document Revised: 12/29/2018 Document Reviewed: 12/29/2018 [employer] Interactive Patient Education ?? 2020 [employer]. Patient Education Breast Self-Awareness Breast self-awareness is knowing how your breasts look and feel. Doing breast self-awareness is important. It allows you to catch a breast problem early while it is still small and can be treated. All women should do breast self-awareness, including women who have had breast implants. Tell your doctor if you notice a change in your breasts. What you need: ?? A mirror. ?? A well-lit room. How to do a breast self-exam A breast self-exam is one way to learn what is normal for your breasts and to check for changes. Todo a breast self-exam: Look for changes 8. Take off all the clothes above your waist. 9. inspector screen printing front of a mirror in a room with good lighting. 10. Put your hands on your hips. 11. Push your hands down. 12. Look at your breasts and nipples in the mirror to see if one breast or nipple looks different from the other. Check to see if: ? The shape of one breast is different. ? The size of one breast is different. ? There are wrinkles, dips, and bumps in one breast and not the other. 13. Look at each breast for changes in the skin, such as: ? Redness. ? Scaly areas. 14. Look for changes in your nipples, such as: ? Liquid around the nipples. ? Bleeding. ? Dimpling. ? Redness. ? A change in where the nipples are. Feel for changes 5. Lie on your back on the floor. 6. Feel each breast. To do this, follow these steps: ? Pick a breast to feel. ? Put the arm closest to that breast above your head. ? Use your other arm to feel the nipple area of your breast. Feel the area with the pads of your three middle fingers by making small circles with your fingers. For the first coushatta, press lightly. For the second coushatta, press harder. For the third coushatta, press even harder. ? Keep making circles with your fingers at the different pressures as you move down your breast. Stop when you feel your ribs. ? Move your fingers a little toward the center of your body. ? Start making circles with your fingers again, this time going up until you reach your collarbone. ? Keep making up-and-down circles until you reach your armpit. Remember to keep using the three pressures. ? Feel the other breast in the same way. 7. Sit or senior analyst market intelligence the tub or shower. 8. With soapy water on your skin, feel each breast the same way you did in step 2 when you were lying on the floor. Write down what you find Writing down what you find can help you remember what to tell your doctor. Write down: ?? What is normal for each breast. ?? Any changes you find in each breast, including: ? The kind of changes you find. ? Whether you have pain. ? Size and location of any lumps. ?? When you last had your menstrual period. General tips ?? Check your breasts every month. ?? If you are , the best time to check your breasts is after you feed your baby or after you use a breast pump. ?? If you get menstrual periods, the best time to check your breasts is 5-7 days after your menstrual period is over. ?? With time, you will become comfortable with the self-exam, and you will begin to know if there are changes in your breasts. Contact a doctor if you: ?? See a change in the shape or size of your breasts or nipples. ?? See a change in the skin of your breast or nipples, such as red or scaly skin. ?? Have fluid coming from your nipples that is not normal. ?? Find a lump or thick area that was not there before. ?? Have pain in your breasts. ?? Have any concerns about your breast health. Summary ?? Breast self-awareness includes looking for changes in your breasts, as well as feeling for changes within your breasts. ?? Breast self-awareness should be done in front of a mirror in a well-lit room. ?? You should check your breasts every month. If you get menstrual periods, the best time to check your breasts is 5-7 days after your menstrual period is over. ?? Let your doctor know of any changes you see in your breasts, including changes in size, changes on the skin, pain or tenderness, or fluid from your nipples that is not normal. This information is not intended to replace advice given to you by your health care provider. Make sure you discuss any questions you have with your health care provider. Document Released: 10/28/2008 Document Revised: 12/29/2018 Document Reviewed: 12/29/2018 [employer] Interactive Patient Education ?? 2020 [employer]. Patient Education Bone Health Bones protect organs, store calcium, anchor muscles, and support the whole body. Keeping your bonesstrong is important, especially as you get older. You can take actions to help keep your bones strong and healthy. Why is keeping my bones healthy important? Keeping your bones healthy is important because your body constantly replaces bone cells. Cells getold, and new cells take their place. As we age, we lose bone cells because the body may not be ableto make enough new cells to replace the old cells. The amount of bone cells and bone tissue you have is referred to as bone mass. The higher your bone mass, the stronger your bones. The aging process leads to an overall loss of bone mass in the body, which can increase the likelihood of: ?? Joint pain and stiffness. ?? Broken bones. ?? A condition in which the bones become weak and brittle (osteoporosis). A large decline in bone mass occurs in older adults. In women, it occurs about the time of menopause. What actions can I take to keep my bones healthy? Good health habits are important for maintaining healthy bones. This includes eating nutritious foods and exercising regularly. To have healthy bones, you need to get enough of the right minerals andvitamins. Most nutrition experts recommend getting these nutrients from the foods that you eat. In some cases, taking supplements may also be recommended. Doing certain types of exercise is also important for bone health. What are the nutritional recommendations for healthy bones? Eating a well-balanced diet with plenty of calcium and vitamin D will help to protect your bones. Nutritional recommendations vary from person to person. Ask your health care provider what is healthyfor you. Here are some general guidelines. Get enough calcium Calcium is the most important (essential) mineral for bone health. Most people can get enough calcium from their diet, but supplements may be recommended for people who are at risk for osteoporosis. Good sources of calcium include: ?? Dairy products, such as low-fat or nonfat milk, cheese, and yogurt. ?? Dark green leafy vegetables, such as bok helen and broccoli. ?? Calcium-fortified foods, such as orange juice, cereal, bread, soy beverages, and tofu products. ?? Nuts, such as almonds. Follow these recommended amounts for daily calcium intake: ?? Children, age 1-3: 700 mg. ?? Children, age 4-8: 1,000 mg. ?? Children, age 9-13: 1,300 mg. ?? Teens, age 14-18: 1,300 mg. ?? Adults, age 19-50: 1,000 mg. ?? Adults, age 51-70: ? Men: 1,000 mg. ? Women: 1,200 mg. ?? Adults, age 71 or older: 1,200 mg. ?? and females: ? Teens: 1,300 mg. ? Adults: 1,000 mg. Get enough vitamin D Vitamin D is the most essential vitamin for bone health. It helps the body absorb calcium. Sunlightstimulates the skin to make vitamin D, so be sure to get enough sunlight. If you live in a cold climate or you do not get outside often, your health care provider may recommend that you take vitamin D supplements. Good sources of vitamin D in your diet include: ?? Egg yolks. ?? Saltwater fish. ?? Milk and cereal fortified with vitamin D. Follow these recommended amounts for daily vitamin D intake: ?? Children and teens, age 1-18: 600 international units. ?? Adults, age 50 or younger: 400-800 international units. ?? Adults, age 51 or older: 800-1,000 international units. Get other important nutrients Other nutrients that are important for bone health include: ?? Phosphorus. This mineral is found in meat, poultry, dairy foods, nuts, and legumes. The recommended daily intake for adult men and adult women is 700 mg. ?? Magnesium. This mineral is found in seeds, nuts, dark green vegetables, and legumes. The recommended daily intake for adult men is 400-420 mg. For adult women, it is 310-320 mg. ?? Vitamin K. This vitamin is found in green leafy vegetables. The recommended daily intake is 120 mg for adult men and 90 mg for adult women. What type of physical activity is best for building and maintaining healthy bones? Weight-bearing and strength-building activities are important for building and maintaining healthy bones. Weight-bearing activities cause muscles and bones to work against gravity. Strength-building activities increase the strength of the muscles that support bones. Weight-bearing and muscle-building activities include: ?? Walking and hiking. ?? Jogging and running. ?? Dancing. ?? Gym exercises. ?? Lifting weights. ?? Tennis and racquetball. ?? Climbing stairs. ?? Aerobics. Adults should get at least 30 minutes of moderate physical activity on most days. Children should get at least 60 minutes of moderate physical activity on most days. Ask your health care provider what type of exercise is best for you. How can I find out if my bone mass is low? Bone mass can be measured with an X-ray test called a bone mineral density (BMD) test. This test isrecommended for all women who are age 65 or older. It may also be recommended for: ?? Men who are age 70 or older. ?? People who are at risk for osteoporosis because of: ? Having bones that break easily. ? Having a long-term disease that weakens bones, such as kidney disease or rheumatoid arthritis. ? Having menopause earlier than normal. ? Taking medicine that weakens bones, such as steroids, thyroid hormones, or hormone treatment for breast cancer or prostate cancer. ? Smoking. ? Drinking three or more alcoholic drinks a day. If you find that you have a low bone mass, you may be able to prevent osteoporosis or further bone loss by changing your diet and lifestyle. Where can I find more information? For more information, check out the following websites: ?? National Osteoporosis Foundation: www.nof.org/patients ?? National Institutes of Health: www.bones.nih.gov ?? International Osteoporosis Foundation: www.iofbonehealth.org Summary ?? The aging process leads to an overall loss of bone mass in the body, which can increase the likelihood of broken bones and osteoporosis. ?? Eating a well-balanced diet with plenty of calcium and vitamin D will help to protect your bones. ?? Weight-bearing and strength-building activities are also important for building and maintaining strong bones. ?? Bone mass can be measured with an X-ray test called a bone mineral density (BMD) test. This information is not intended to replace advice given to you by your health care provider. Make sure you discuss any questions you have with your health care provider. Document Released: 08/01/2004 Document Revised: 06/08/2018 Document Reviewed: 06/08/2018 [employer] Interactive Patient Education ?? 2020 [employer]. documented in this encounter Plan of Treatment Upcoming Encounters Date Type Department Care Team (Late st Contact Info) Description 05/24/2024 10:30 AM EST Office Visit [facility] [address] [place] [phone] Nikolas Jha [facility] [address] [place] [address] [address] [place] [phone] documented as of this encounter Goals Goal Patient Goal Type Associated Problems Recent Progress Patient-Stated? Author Breast Health Breast Health On track( 021 9:11 AM EDT) No Maisha Kirk, CRISTOBAL Note: Patient will be compliant with monthly Self Breast Exams and is aware of to who to contact for any unusual or concerning findings. documented as of this encounter Visit Diagnoses Diagnosis Malignant neoplasm of left breast in female, estrogen receptor positive, unspecified site of breast (HCC)- Primary Encounter for follow-up surveillance of breast cancer Unspecified follow-up examination Encounter for monitoring aromatase inhibitor therapy Encounter for therapeutic drug monitoring Osteopenia, unspecified location documented in this encounter Historical Medications * This list may reflect changes made after this encounter. EVENING PRIMROSE OIL ORAL Take by mouth daily. 03/16/2024 added in this encounter Additional Health Concerns Assessment Noted Time A fall risk assessment has been complete d for the patient 04/26/2019 3:55 PM EST documented as of this encounter Care Teams Steam Shovelman Relationship Specialty Start Date End Date Carlos Manuel Barragan [address] [place] [address] [address] [facility] [address] PCP - General 07/03/10 documented as of this encounter
--- OUTSIDE RECORDS SUMMARY | 2024-05-04 22:52 | XMS_ITS | Encounter Summary ---
Author Organization [facility] [address] Care Team Providers Care Director Of Operations For Therapy Name Role Phone Carlos Manuel Barragan Primary Care Provider [phone] Encounter Details Date Type Department Care Team (Latest Contact Info) Description 12/19/2020 Travel Social History Tobacco Use Types Packs/Day [...] have Coronavirus / COVID-19? No / Unsure 12/19/2020 1:38 PM EDT documented as of this encounter Functional [...] AM EST Office Visit [facility] [address] [place] [phone] [address]olas Jha [address] [place] [phone] documented as of this encounter Goals [...] documented as of this encounter Care Teams Director Of Operations For Therapy Relationship Specialty Start Date End Date Carlos Manuel Barragan [address] [place] [address] PCP - General 07/03/10 documented as of this encounter
--- OUTSIDE RECORDS SUMMARY | 2024-05-04 22:52 | XMS_ITS | Encounter Summary ---
Author Organization [facility] [place] [address] Care Team Providers Care Client Account Representative Name Role Phone Carlos Manuel Barragan Primary Care Provider [phone] Reason for Referral * Mammography (Routine) - Closed Specialty Diagnoses / Procedures Referred By Heather santos Referred To Contact Radiology Diagnoses Encounter for screening mammogram for malignant neoplasm of breast Malignant neoplasm of left breast in female, estrogen receptor positive, unspecified site of breast (HCC) Encounter for follow-up surveillance of breast cancer Procedures MM MAMMO DIGITAL VANNESA SCREEN RIGHT MM MAMMO DIGITAL SCREENING W CAD RIGHT Dany Crouch MD [address] [place] [address] Phone: tel: fax: Referral ID Status Reason Start Date Expiration Date Visits Re quested Visits Authorized [id number] Closed 10/30/2020 10/30/2022 1 1 Reason for Visit * Mammography (Routine) - Closed Specialty Diagnoses / Procedures Referred By Heather santos Referred To Contact Radiology Diagnoses Encounter for screening mammogram for malignant neoplasm of breast Malignant neoplasm of left breast in female, estrogen receptor positive, unspecified site of breast (HCC) Encounter for follow-up surveillance of breast cancer Procedures MM MAMMO DIGITAL VANNESA SCREEN RIGHT MM MAMMO DIGITAL SCREENING W CAD RIGHT Dany Crouch MD [address] [place] [address] Phone: tel: fax: Referral ID Status Reason Start Date Expiration Date Visits Re quested Visits Authorized [id number] Closed 10/30/2020 10/30/2022 1 1 Encounter Details Date Type Department Care Team (Latest Contact Info) Description 04/24/2021 2:27 PM EST - 04/24/2021 11:59 PM EST Hospital Encounter [facility] Mammography [address] [place] [address] Dany Crouch MD [address] [place] [address] Encounter for screening mammogram for malignant neoplasm of breast ; Malignant neoplasm of left breast in female, estrogen receptor positive, unspecified site of breast (HCC) (HCC); Encounter for follow-up surveillance of breast cancer Discharge Disposition: Home or Self Care Social [...] have Coronavirus / COVID-19? No / Unsure 04/24/2021 2:23 PM EST documented as of this encounter [...] unit Oral Capsule Take by mouth daily. metoclopramide HCl (REGLAN) 5 mg Oral Tablet Take 5 mg by mouth 2 times daily. montelukast (SINGULAIR) 10 mg Oral Tablet Take 10 mg by mouth every evening. rosuvastatin (CRESTOR) 10 mg Oral Tablet Take 10 mg by mouth daily. anastrozole (ARIMIDEX) 1 mg Oral TabletIndications:M alignant neoplasm of left female breast (HCC) Take 1 Tab by mouth daily. 90 Tab 3 07/31/2020 09/03/2021 documented as of this encounter Discharge Disposition Disposition Code Departure Means Destination Home or Self Care documented in this encounter Plan of Treatment Upcoming Encounters Date Type Department Care Team (Late st Contact Info) Description 05/24/2024 10:30 AM EST Office Visit [facility] [address] [place] [phone] Nikolas Jha DPM [address] [facility] [address] [place] [phone] documented as of this encounter Goals [...] MM MAMMO DIGITAL VANNESA SCREEN RIGHT Routine 04/24/2021 2:41 PM EST Encounter for screening mammogram for malignant neoplasm of breast Malignant neoplasm of left breast in female, estrogen receptor positive, unspecified site of breast (HCC) (HCC) Encounter for follow-up surveillance of breast cancer documented in this encounter Results * MM MAMMO DIGITAL VANNESA SCREEN RIGHT (04/24/2021 2:41 PM EST) Anatomical Region Laterality Modality Breast Right Mammography 04/24/2021 3:47 PM EST Impressions 04/24/2021 3:47 PM EST Negative ??(ILE-Wxzpeszf-6) ~ RECOMMENDATION: Routine screening mammogram in 1 [...] the next mammogram, in accordance with the [place] [employer] and the Society of Breast Imaging recommendations. Narrative 04/24/2021 3:47 PM EST Procedure:MM MAMMO DIGITAL VANNESA SCREEN RIGHT ~ Reason for exam: history of breast cancer, mastectomy. Z12.31-Encounter for screening mammogram for malignant neoplasm of rfkwso-OAN-03-CM C50.912-Malignant neoplasm of unspecified site of left female breast (HCC)-ICD-10-CM Z17.0-Estrogen receptor positive status (ER+)-ICD-10-CM C48-Fzhirhclf for follow-up examination after completed treatment for malignant imodtbmd-CJG-61-CM Z85.3-Personal history of malignant neoplasm of ncwzzy-GVB-82-CM ~ MM MAMMO DIGITAL VANNESA SCREEN RIGHT CC and MLO view(s) were taken of the right breast. Technologist: Radha Granda, RT There are scattered fibroglandular densities. Prior study comparison: Compared with prior studies the most recent being 03/27/20, 03/23/19 Prior left mastectomy and right reduction surgery. No mammographic evidence of malignancy. ~ Procedure Note Meche Giraldo MD - 04/24/2021 Procedure:MM MAMMO DIGITAL VANNESA SCREEN RIGHT ~ Reason for exam: history of breast cancer, mastectomy. Z12.31-Encounter for screening mammogram for malignant neoplasm of tzvmvw-QOR-31-CM C50.912-Malignant neoplasm of unspecified site of left female breast (HCC)-ICD-10-CM Z17.0-Estrogen receptor positive status (ER+)-ICD-10-CM V19-Qxmkpgobp for follow-up examination after completed treatment for malignant mxxtlzsl-WKV-79-CM Z85.3-Personal history of malignant neoplasm of hfmtfk-VQI-04-CM ~ MM MAMMO DIGITAL VANNESA SCREEN RIGHT CC and MLO view(s) were taken of the right breast. Technologist: RT Anton There are scattered fibroglandular densities. Prior study comparison: Compared with prior studies the most recentbeing 03/27/20, 03/23/19 Prior left mastectomy and right reduction surgery. No mammographicevidence of malignancy. ~ IMPRESSION: Negative (HGB-Hvhwxxgq-9) ~ RECOMMENDATION: Routine screening mammogram in 1 [...] the next mammogram, in accordance with the [place] [employer] and the Society of Breast Imaging recommendations. Dany Crouch MD IMG MAMMOGRAPHY ORDERABLES Final Result documented in this encounter Visit Diagnoses Diagnosis Encounter for screening mammogram for malignant neoplasm of breast Other screening mammogram Malignant neoplasm of left breast in female, estrogen receptor positive, unspecified site of breast (HCC) Encounter for follow-up surveillance of breast cancer Unspecified follow-up examination documented in this encounter Additional Health Concerns Assessment Noted Time A fall risk assessment has been complete d for the patient 04/26/2019 3:55 PM EST documented as of this encounter Care Teams Client Account Representative Relationship Specialty Start Date End Date Carlos Manuel Barragan [facility] [address] [place] [address] PCP - General 07/03/10 documented as of this encounter
--- OUTSIDE RECORDS SUMMARY | 2024-05-04 22:52 | XMS_ITS | Encounter Summary ---
Author Organization [place] [address] Care Team Providers Care Aviation Operations Specialist Name Role Phone Carlos Manuel Barragan Primary Care Provider [phone] Reason for Visit * Reason Onset Date Comments Orders 10/31/2020 Breast Cancer In dex Encounter Details Date Type Department Care Team (Late st Contact Info) Description 10/31/2020 Telephone [facility] [place] [phone] Cheri Reyes Orders (Breast Cancer Index ) Social History Tobacco Use Types Packs/Day Years [...] Author No 06/03/2015 1:49 PM Mitzi Jimenez stephno Trejo APRN * Because of a physical, [...] encounter Miscellaneous Notes * Telephone Encounter - Neyda De Souza, Clerical Staff - 12/21/2020 1:51 PM EDT Pt is scheduled to return with Dr. Crouch on 11/08/21 * Telephone Encounter - Maisha Prater RN - 12/21/2020 11:52 AM EDT Return call from Senia regarding BCI, advised that it is recommended for her to continue taking Arimidex and that she will need to schedule a f/u appt with Dr Crouch for October 2021, advised since she does not answer her phone we will make appt and place in [facility], also states that she has been having hot flashes and Dr Crouch said to wait and see how BCI came back, requests a script for Oxybut ynin be sent to [facility], we will notify her by [facility] when script has been sent to pharmacy, ptstates understanding. * Telephone Encounter - Sarita Suarez RN - 12/21/2020 9:09 AM EDT Attempted contact with patient and left a voice message requesting a return call/ see prior notes. * Telephone Encounter - Maria Antonia Loredo RN - 12/18/2020 2:42 PM EDT Attempted to call pt to discuss BCI results-pt to continue on Arimidex for another year and then tof/up with Dr Crouch next October to discuss-pt will need appt. * Telephone Encounter - Jessy Donato RN - 12/14/2020 11:55 AM EDT Attempted to contact patient, goes straight to voicemail, left voicemail requesting a return call. My chart message sent to patient requesting her to call breast center to review BCI results and to get pt scheduled with Dr. Dhillon for October,. * Telephone Encounter - Alexia Kim RN - 12/13/2020 11:20 AM EDT Attempted contact. for pt to return call to at [phone]. Per Caty, pt to continue taking arimidex for another year and Dr. Crouch will discuss at next f/u with him in the breast center. Note that pt will need to schedule an appt. With Dr. Crouch in October,. * Telephone Encounter - Kristine Hill RN - 12/11/2020 11:41 AM EDT Attempted contact. No answer. LVM to return call to NN. * Telephone Encounter - Talia Akers RN - 12/07/2020 11:41 AM EDT Attempted contact. LM for a return call. * Telephone Encounter - Talia Akers RN - 12/06/2020 9:17 AM EDT Attempted contact. LM for a return call to discuss her BCI results. * Telephone Encounter - Caty Moy PA-C - 12/05/2020 4:07 PM EDT Attempted to call pt to discuss score. No answer. * Telephone Encounter - Neyda De Souza Clerical Staff - 11/30/2020 9:46 AM EDT BCI Results- Prognostic Result: 1.7% Benefit: Yes * Telephone Encounter - Neyda De Souza Clerical Staff - 11/22/2020 11:56 AM EDT Pt left us a message today 11/22 at 11:51 inquiring if results are back yet- I attempted to return phone call- I left a message * Telephone Encounter - Cheri Reyes - 10/31/2020 10:19 AM EDT Faxed pathology, insurance card and face sheet to [facility] today. * Telephone Encounter - Cheri Reyes - 10/31/2020 10:18 AM EDT ----- Message from Maisha Prater RN sent at 10/30/2020 9:27 AM EDT ----- Dr. Crouch has ordered a Breast Cancer Index on this patient. Please submit Breast Cancer Index on pathology dated 02/09/15. Pamela Jaeger documented in this encounter Plan of Treatment Upcoming Encounters Date Type Department Care Team (Late st Contact Info) Description 05/24/2024 10:30 AM EST Office Visit [facility] [address] [place] [phone] Nikolas Jha, [address] [place] [phone] documented as of this encounter Goals [...] documented as of this encounter Care Teams Aviation Operations Specialist Relationship Specialty Start Date End Date Carlos Manuel Barragan [address] [facility] [address] [place] [address] PCP - General 07/03/10 documented as of this encounter
--- OUTSIDE RECORDS SUMMARY | 2024-05-04 22:52 | XMS_ITS | Encounter Summary ---
Author Organization [facility] Address [address] [place] [address] Care Team Providers Care Drag Seiner Name Role Phone Carlos Manuel Barragan Primary Care Provider [phone] Reason for Visit * Reason Onset Date Comments Follow-up 11/10/2019 Encounter Details Date Type Department Care Team (Late st Contact Info) Description 11/10/2019 Telephone [facility] [place] [address] [place] [address] Libertad Curtis, RT Follow-up Social History Tobacco Use Types Packs/Day Years [...] have Coronavirus / COVID-19? No / Unsure 11/03/2019 2:21 PM EDT documented as of this encounter Functional Status * Is the person deaf or does he/she have serious difficulty hearing? Answer Date of Assessment Author No 06/03/2015 1:49 PM Mitzi Jimenez, METAL ROOM DENTAL TECHNICIAN * Is the person blind or does [...] Jimenezsa Neil APRN documented in this encounter Miscellaneous Notes * Telephone Encounter - Libertad Curtis RT - 11/10/2019 10:33 AM EDT FOLLOW UP L-FUNMI DONE 11-01-19 DR Mora Patient stated she has follow up with Dr Newman tomorrow and will call as needed Numeric pain scale Pre injection Pain score (1-10) 8 Post injection pain score (1-10) 4 Physical Therapy Yes % improvement 40% documented in this encounter Plan of Treatment Upcoming Encounters Date Type Department Care Team (Late st Contact Info) Description 05/24/2024 10:30 AM EST Office Visit [facility] [address] [place] [address] Nikolas Jha DPM [address] [facility] [address] [place] [phone] documented as of this encounter [...] documented as of this encounter Care Teams Drag Seiner Relationship Specialty Start Date End Date Carlos Manuel Barragan [address] [place] [address] [address] [place] [address] PCP - General 07/03/10 documented as of this encounter
--- OUTSIDE RECORDS SUMMARY | 2024-05-04 22:52 | XMS_ITS | Encounter Summary ---
Author Organization [place] [address] Care Team Providers Care Environmental Field Technician Name Role Phone Carlos Manuel Barragan Primary Care Provider [phone] Encounter Details Date Type Department Care Team (Late st Contact Info) Description 11/07/2020 Lab Requisition [facility] [place] [phone] Adali Jacinto MD [address] [place] [phone] Malignant neoplasm of unspecified site of left female breast (HCC) Social History Tobacco Use Types Packs/Day Years [...] have Coronavirus / COVID-19? No / Unsure 10/30/2020 8:48 AM EDT documented as of this encounter Functional Status * Is the person deaf or does he/she have serious difficulty hearing? Answer Date of Assessment Author No 06/03/2015 1:49 PM Mitzi Jimenez CAMPBELL Trejo * Is the person blind or does he/she have serious difficulty seeing even when wearing glasses? Answer Date of Assessment Author No 06/03/2015 1:49 PM Mitzi Jimenez HAM TrejoN * Does this person have serious difficulty walking or climbing stairs? Answer Date of Assessment Author No 06/03/2015 1:49 PM Mitzi Jimenez HAM TrejoN * Does this person have difficulty dressing or bathing? Answer Date of Assessment Author No 06/03/2015 1:49 PM Mitzi Jimenez HAM TrejoN * Because of a physical, mental or [...] AM EST Office Visit [facility] [address] [place] [phone] Nikolas Jha Mitzi [address] [place] [address] [address] [place] [phone] documented as of this encounter Goals [...] Procedure Name Priority Date/Time Associated Diagnosis Comments MISC AP TEST Routine 11/07/2020 1:32 PM EDT Malignant neoplasm of unspecified site of left female breast (HCC) documented in this encounter Results * MISC AP TEST (11/07/2020 1:32 PM EDT) CASE REPORT Surgical Pathology Report ? Case: [id number] ? Authorizing Provider: ??Adali Jacinto MD ? Collected: ? 11/07/2020 1332 ? Ordering Location: ? [facility] ? Received: ?11/07/2020 1332 ? Pathologist: ? Adali Jacinto MD ? Specimen: ?Breast, Left, Request for case [id number] 1A & 1B blocks for Breast Cancer Index. ? 11/30/2020 9:57 AM EDT [employer] [employer] FINAL DIAGNOSIS Breast Cancer Index report will be reported in an addendum. 11/30/2020 9:57 AM EDT [facility] DDED IMAGES 11/30/2020 9:57 AM EDT [employer] ADDENDUM Refer to [facility] Breast Cancer Index report. 11/30/2020 9:57 AM EDT [facility] Addendum electronically signed by Adali Jacinto MD on 11/30/2020 at 9:57 AM Tissue LEFT BREAST STRUCTURE / Unknown 11/07/2020 1:32 PM EDT 11/07/2020 1:32 PM EDT Adali Jacinto MD PATHOLOGY ORDERABLES Edited Resu lt - Final [address] [address] documented in this encounter Visit Diagnoses Diagnosis Malignant neoplasm of unspecified site of left female breast (HCC) documented in this encounter Additional Health Concerns Assessment Noted Time A fall risk assessment has been complete d for the patient 04/26/2019 3:55 PM EST documented as of this encounter Care Teams Environmental Field Technician Relationship Specialty Start Date End Date Carlos Manuel Barragan [address] [place] [address] [address] [place] [address] PCP - General 07/03/10 documented as of this encounter
--- OUTSIDE RECORDS SUMMARY | 2024-05-04 22:52 | XMS_ITS | Encounter Summary ---
Author Organization [facility] [place] [address] Care Team Providers Care Safety Administrator Name Role Phone Carlos Manuel Barragan Primary Care Provider [phone] Encounter Details Date Type Department Care Team (Latest Contact Info) Description 10/27/2020 Travel Social History Tobacco Use Types Packs/Day [...] have Coronavirus / COVID-19? No / Unsure 10/27/2020 3:57 PM EDT documented as of this encounter [...] 10:30 AM EST Office Visit [facility] [address] [place] [phone] Nikolas Jha [address] [place] [phone] documented as of this encounter Goals [...] documented as of this encounter Care Teams Safety Administrator Relationship Specialty Start Date End Date Carlos Manuel Barragan [address] [place] [address] PCP - General 07/03/10 documented as of this encounter
--- OUTSIDE RECORDS SUMMARY | 2024-05-04 22:52 | XMS_ITS | Encounter Summary ---
Author Organization [facility] [place] [address] Care Team Providers Care Door Attendant Name Role Phone Carlos Manuel Barragan Primary Care Provider [phone] Encounter Details Date Type Department Care Team (Latest Contact Info) Description 04/24/2021 Travel Social History Tobacco Use Types Packs/Day [...] AM EST Office Visit [facility] [address] [place] [phone] Nikolas Jha [address] [place] [phone] documented as of this encounter Goals [...] documented as of this encounter Care Teams Door Attendant Relationship Specialty Start Date End Date Carlos Manuel Barragan [address] [place] [address] PCP - General 07/03/10 documented as of this encounter
--- OUTSIDE RECORDS SUMMARY | 2024-05-04 22:52 | XMS_ITS | Encounter Summary ---
Author Organization [facility] Address [address] [place] [address] Care Team Providers Care Manager Managed Backup Services Name Role Phone Carlos Manuel Barragan Primary Care Provider [phone] Reason for Visit * Consultation (Routine) - Closed Specialty Diagnoses / Procedures Referred By Contac t Referred To Contact Radiology Diagnoses Lumbar spinal stenosis Procedures L-FUNMI REPEAT NECESSARY Brian Newman MD Phone: tel: [facility] [place] [address] [place] [address] Phone: tel: fax: Referral ID Status Reason Start Date Expiration Date Visits Re quested Visits Authorized [id number] Closed 10/13/2019 10/12/2020 1 1 Encounter Details Date Type Department Care Team (Late st Contact Info) Description 11/03/2019 3:00 PM EDT Office Visit [facility] [place] [address] [place] [address] Blanco Mora MD [address] [address] Low back pain with sciatica, sciatica laterality unspecified, unspecified back pain laterality, unspecified chronicity (Primary Dx) Social History Tobacco Use Types [...] Pressure - - Pulse - - Temperature 37.1 ??C (98.7 ??F) 11/03/2019 2:24 PM ED T Respiratory Rate - - Oxygen Saturation - - Inhaled Oxygen Concentration - - Weight - - Height - - Body Mass Index - - documented in this encounter Functional Status * [...] documented in this encounter Progress Notes * Blanco Mora MD - 11/03/2019 3:00 PM EDT Images from the original note were not included. INTERLAMINAR LUMBAR EPIDURAL STEROID INJECTION WITH FLUOROSCOPY INDICATIONS: Low back pain. Radiculopathy. Degenerative disk disease. Scoliosis. PROCEDURE: After explanation of the risks, alternatives and benefits of FUNMI, written informed consent obtained. The patient was placed prone on fluoroscopy table. The back was prepped and draped in usual sterile manner. Local anesthesia was performed with approximately 2 mL 1% lidocaine. A 20-gaugeTuohy needle targeted towards inferior L2 lamina with fluoroscopy. Epidural space entered with loss of resistance technique. Position confirmed with approximately 2 mL Omnipaque 300 injection. Total fluoroscopy used was 0.4 minutes. 20 mg dexamethasone was placed into the epidural space and needle removed without incident. All medications from multidose vials. No neurologic complications. IMPRESSION: Technically successful right paracentral L2/3 lumbar interlaminar epidural steroid injection. documented in this encounter Miscellaneous Notes * Patient Instructions - Libertad Curtis RT - 11/03/2019 3:00 PM EDT Today you had an epidural steroid injection, You may have been given a steroid anti-inflammatory medication which can reduce inflammation, swelling, pain and promote healing. It may also include a local anesthetic which blocks pain perception In some cases , the benefits of an injection will not be immediately apparent. In fact, the pain may be slightly worse tonight. It may take 3-4 days to notice relief. Office will call to follow up in1 week.. Possible temporary side effects of steroid injections have been known to include weight gain, fluidretention, increased appetite, increased blood sugar, epidural headache, agitation, insomnia, menstrual irregularities, elevated blood pressure,FACIAL FLUSHING, skin rash and acne. Please Observe the following 1. Do not drive or operate machinery for 2 hours 2. Do not engage in strenuous activity for 24 hours 3. You may resume your normal diet 4. The band-aid dressing is to be kept clean and dry. Can be removed after 24 hours. No tub bath for 24 hours 5. There may be soreness at the injections sites for 2-3 days. You may apply an ice pack to the sore areas (20minutes on and 20 minutes off) and resume normal [id number]-xkaumuv pain reliever or prescription medication you take for this 6. Diabetic Instructions: If you are diabetic and received a steroid today, you must check you blood sugar levels at least twice a day for the next few days and call your primary care physician or the doctor treating your diabetes if your blood sugar is significantly elevated. Please let your physician know you received a steroid injection 7. You may resume any medications you were required to stop prior to the procedure 8. Other CALL IMMEDIATELY IF YOU DEVELOP ANY OF THE FOLLOWING 1. Any new , unrelieved pain 2. Any new or increased numbness or weakness of the extremities 3. A severe headache that does not subside with usual measures 4. Signs of infection such as fever, chills, redness, swelling or drainage for the injection site. 5. Bowel or bladder incontinence 6. Any other problems you feel may be related to this procedure. CALL US AT [phone], Friday-Friday 8:00 am to 4:00pm documented in this encounter Plan of Treatment Upcoming Encounters Date Type Department Care Team (Late st Contact Info) Description 05/24/2024 10:30 AM EST Office Visit [facility] [address] [place] [address] Nikolas Jha DPM [address] [place] [address] [address] [place] [address] Scheduled Orders Name Type Priority Associated Diagnoses Orde r Schedule ND NJX DX/THER SBST INTRLMNR LMBR/SAC W/IMG GDN ND Charge Routine Low back pain with sciatica, sciatica laterality unspecified, unspecified back pain laterality, unspecified chronicity Ordered: 11/03/2019 documented as of this encounter Goals Goal Patient Goal Type Associated Problems Recent Progress Patient-Stated? Author Breast Health Breast Health On track( 021 9:11 AM EDT) Maisha Anderson RN Note: Patient will be compliant with monthly Self Breast Exams and is aware of to who to contact for any unusual or concerning findings. documented as of this encounter Visit Diagnoses Diagnosis Low back pain with sciatica, sciatica laterality unspecified, unspecified back pain laterality, unspecified chronicity- Primary documented in this encounter Administered Medications Inactive Administered Medications - up to 1 most recent administrations Medication Order MAR Action Action Date Dose Rate Site dexamethasone (DECADRON) injection 20 mg 20 mg, Epidural, ONCE, 1 dose, On Fri11/03/19 at 1430, Dx: 1. Low back pain with sciatica, sciatica laterality unspecified, unspecified back pain laterality, unspecified chronicityIndications:Low back pain with sciatica, sciatica laterality unspecified, unspecified back pain laterality, unspecified chronicity Given 11/03/2019 2:58 PM EDT 20 mg iohexoL (OMNIPAQUE) injection 3 mL 3 mL, Epidural, ONCE, 1 dose, On Fri11/03/19 at 1430, VESICANT , Dx: 1. Low back pain with sciatica, sciatica laterality unspecified, unspecified back pain laterality, unspecified chronicityIndications:Low back pain with sciatica, sciatica laterality unspecified, unspecified back pain laterality, unspecified chronicity Given 11/03/2019 2:58 PM EDT 3 mL lidocaine 1% 10 mg/mL (1 %) injection 5 mL 5 mL, Infiltration, ONCE, 1 dose, On Fri11/03/19 at 1430, Dx: 1. Low back pain with sciatica, sciatica laterality unspecified, unspecified back pain laterality, unspecified chronicityIndications:Low back pain with sciatica, sciatica laterality unspecified, unspecified back pain laterality, unspecified chronicity Given 11/03/2019 2:59 PM EDT 5 mL documented in this encounter Additional Health Concerns Assessment Noted Time A fall risk assessment has been complete d for the patient 04/26/2019 3:55 PM EST documented as of this encounter Care Teams Manager Managed Backup Services Relationship Specialty Start Date End Date Carlos Manuel Barragan [address] [place] [address] PCP - General 07/03/10 documented as of this encounter
--- OUTSIDE RECORDS SUMMARY | 2024-05-04 22:52 | XMS_ITS | Encounter Summary ---
Author Organization [place] [address] Care Team Providers Care Tier Over Name Role Phone Carlos Manuel Barragan Primary Care Provider [phone] Reason for Referral * In Office Procedure (Routine) - Closed Specialty Diagnoses / Procedures Referred By Heather santos Referred To Contact Diagnoses Primary osteoarthritis of left foot Procedures NH ARTHROCENTESIS ASPIR&/INJ SMALL JT/BURSA W/O US Nikolas Jha DPM [address] [address] Phone: tel: fax: Referral ID Status Reason Start Date Expiration Date Visits Re quested Visits Authorized [id number] Closed 10/29/2021 10/29/2022 1 1 * In Office Procedure (Routine) - Closed Specialty Diagnoses / Procedures Referred By Heather santos Referred To Contact Rn Transplant-Surgery, Foot & Ankle Diagnoses Tomlinson neuroma, left Procedures NH NJX AA&/STRD PLANTAR COMMON DIGITAL NERVES Nikolas Jha DPM [address] [address] Phone: tel: fax: Nikolas Jha DPM [address] [address] Phone: tel: fax: Referral ID Status Reason Start Date Expiration Date Visits Re quested Visits Authorized [id number] Closed 10/29/2021 11/28/2021 1 1 Reason for Visit * Reason Comments Foot Problem Left foot problem * In Office Procedure (Routine) - Closed Specialty Diagnoses / Procedures Referred By Contniurka t Referred To Contact Rn Transplant-Surgery, Foot & Ankle Diagnoses Tomlinson neuroma, left Procedures NH NJX AA&/STRD PLANTAR COMMON DIGITAL NERVES Nikolas Jha DPM [address] [address] Phone: tel: fax: Nikolas Jha DPM [address] [address] Phone: tel: fax: Referral ID Status Reason Start Date Expiration Date Visits Re quested Visits Authorized [id number] Closed 10/29/2021 11/28/2021 1 1 Encounter Details Date Type Department Care Team (Latest Contact Info) Description 10/29/2021 10:30 AM EDT Office Visit [facility] [address] [place], [place] [phone] Nikolas Jha DPM [address] [address] Pain in both feet (Primary Dx); Tomlinson neuroma, left; Primary osteoarthritis of left foot; Acquired hammer toe Social History Tobacco Use Types Packs/Day Years [...] - - Temperature 36.3 ??C (97.4 ??F) 10/29/2021 10:51 AM E DT Respiratory Rate - - Oxygen Saturation - - Inhaled Oxygen Concentration - - Weight 97.1 kg (214 lb) 10/29/2021 10:51 AM EDT Height 161.3 cm (5' 3.5 ) 10/29/2021 10:51 AM ED T Body Mass Index 37.31 10/29/2021 10:51 AM EDT documented in this encounter Functional [...] Progress Notes * Nikolas Jha DPM - 10/29/2021 10:30 AM EDT Images from the original note were not included. Subjective: Patient ID: Juany Conn is a 71 y.o. female. Chief Complaint: Foot Problem (Left foot problem ) HPI 71 y.o. female complains of Foot Problem (Left foot problem ) Patient presenting with aching, throbbing, burning, shooting pain located to the left foot. Presentnow for months, gradual onset. Gradual worsening with rest, standing, walking, increased activity, certain shoes. No trauma history. No previous treatment. Devious left second and third hammertoe repair. Fracture K wires which originally had retracted into the metatarsal heads were not exposed. Complaint continued pain right footsecond toe and third toes. Has longstanding hammertoe deformities. Past Medical History: Diagnosis Date ??? Anemia [...] know setting ??? Wears glasses for reading Outpatient Medications Marked as Taking for the 10/29/21 encounter (Office Visit) with Nikolas Jha DPM Medication Sig Dispense Refill ??? anastrozole (ARIMIDEX) 1 mg Oral Tablet TAKE 1 TABLET EVERY DAY 90 Tablet 0 ??? aspirin 81 mg tablet Take 81 mg by mouth daily. ??? bisoprolol-hydrochlorothiazide (ZIAC) 5-6.25 mg per tablet Take 1 Tab by mouth daily. ??? Cholecalciferol, Vitamin D3, 2,000 unit Oral Capsule Take by mouth daily. ??? etodolac (LODINE) [...] Tablet Take 10 mg by mouth daily. Past Surgical History: Procedure Laterality Date ??? BREAST BIOPSY Left 02/07/15 x 4 lymph nodes removed ??? BREAST BIOPSY Left 03/03/2015 ??? BREAST RECONSTRUCTION Left 11/16/2015 LEFT BREAST STAGE 2 RECONSTRUCTION WITH IMPLANT RIGHT BREAST REDUCTION FOR SYMMETRY ; Surgeon: Flaco Damon MD; Location: [facility]; Service: Plastics ??? BREAST REDUCTION SURGERY Right 11/16/2015 Surgeon: Flaco Damon MD; Location: [facility]; Service: Plastics ??? BREAST SURGERY Left 06/02/2015 BREAST RECONSTRUCTION 1ST STAGE WITH EXPANDERS ; Surgeon: Flaco Damon MD; Location: [facility]; Service: General ??? CARPAL TUNNEL RELEASE Bilateral 02/12/2018 BILATERAL CARPAL TUNNEL RELEASE ; Surgeon: Francisco Javier Lepe MD; Location: [facility]; Service: Hand ??? CHOLECYSTECTOMY ??? COLONOSCOPY ??? DENTAL SURGERY wisdom teeth extracted ??? FOOT SURGERY Left 10/05/2010 hammertoes ??? HIP SURGERY 2009 right total ??? KNEE SURGERY 2008 right TKR ??? TONSILLECTOMY ??? TOTAL KNEE ARTHROPLASTY Left 09/29/2018 LEFT TOTAL KNEE ARTHROPLASTY; Surgeon: Brian Newman MD; Location: [facility]; Service: Orthopedics Family History Problem Relation Age of Onset ??? Ovarian Cancer Mother 83 ??? Cancer Mother uterus ??? Breast Cancer Sister 52 ??? High Blood Pressure Sister ??? Heart Failure Father ??? Thyroid Disease Father ??? Defects Brother ??? High Blood Pressure Sister ??? Anesth Problems Neg Hx Social History Socioeconomic History ??? Marital status: Spouse name: Not on file ??? Number of children: Not on file ??? Years of education: Not on file ??? Highest education level: Not on file Occupational History ??? Not on file Tobacco Use ??? Smoking status: Never Smoker ??? Smokeless tobacco: Never Used Vaping Use ??? Vaping Use: Never used Substance and Sexual Activity ??? Alcohol use: Yes Comment: socially ??? Drug use: No ??? Sexual activity: Not Currently Other Topics Concern ??? Not on file Social History Narrative ??? Not on file Social Determinants of Health Financial Resource Strain: Not on file Food Insecurity: Not on file Transportation Needs: Not on file Physical Activity: Not on file Stress: Not on file Social Connections: Not on file Intimate Partner Violence: Not on file Housing Stability: Not on file Review of Systems Constitutional: Negative for activity [...] systems reviewed and are negative. Objective: Vitals: 10/29/21 1051 Temp: 97.4 ??F (36.3 ??C) TempSrc: Forehead Weight: 214 lb (97.1 kg) Height: 5' 3.5 (1.613 m) No results found for: HGBA1C Body mass index is 37.31 kg/m??. XR FOOT BILATERAL AP LATERAL AND OBLIQUE STANDING Result Date: 10/29/2021 Left foot shows no protrusion of the broken K wire to the second third MP joint well embedded in the second and third metatarsals, degenerative changes to the second third MP joint, no acute changes,no fracture or dislocation. Right foot shows degenerative changes scattered throughout her foot, hammertoe deformities second through fifth toes with subluxation of the lesser MP joints. No acute changes. No fracture or dislocation. Physical Exam Constitutional: Appearance: Normal appearance. She [...] and Plan: Juany was seen today for foot problem. Diagnoses and all orders for this visit: Pain in both feet - XR FOOT BILATERAL AP LATERAL AND OBLIQUE STANDING; Future Tomlinson neuroma, left - NH NJX AA&/STRD PLANTAR COMMON DIGITAL NERVES Primary osteoarthritis of left foot - NH ARTHROCENTESIS ASPIR&/INJ SMALL JT/BURSA W/O US Acquired hammer toe Other orders - Cancel: XR FOOT LEFT AP LATERAL AND OBLIQUE STANDING; Future X-rays do not show the second third retained K wire fragments extending into the joint. She has a secondary arthritis to the second and third MP joint. Also neuroma second interspace. Recommended cortisone injections for relief. Injected left 2nd interspace for neuroma. Injected left 2nd and 3rd MPJ. Tolerated injections well. We discussed treatment options for the right second and third hammertoes. Note surgical intervention at this time. Return in about 3 months (around 01/29/2022), or if symptoms worsen or fail to improve. Note written by Amy Laird Clinical Scribe, acting as scribe for Nikolas Jha DPM . I have reviewed this note and it accurately reflects my work and decisions made during this visit Nikolas Jha DPM. documented in this encounter Miscellaneous Notes * Addendum Note - Ana Luisa Boogie RMA - 10/29/2021 10:30 AM EDTAddended by: ANA LUISA BOOGIE on: 10/31/2021 01:40 PM Modules accepted: Orders, SmartSet documented in this encounter Plan of Treatment Upcoming Encounters Date Type Department Care Team (Late st Contact Info) Description 05/24/2024 10:30 AM EST Office Visit [facility] [place] [address] [place] [address] [address] [place] [address] Nikolas Jha DPM [address] [place] [address] Scheduled Orders Name Type Priority Associated Diagnoses Orde r Schedule NH NJX AA&/STRD PLANTAR COMMON DIGITAL NERVES NH Charge Routine Tomlinson neuroma, left Ordered: 10/29/2021 NH ARTHROCENTESIS ASPIR&/INJ SMALL JT/BURSA W/O US NH Charge Routine Primary osteoarthritis of left foot Ordered: 10/29/2021 documented as of this encounter Goals Goal Patient Goal Type Associated Problems Recent Progress Patient-Stated? Author Breast Health Breast Health On track( 021 9:11 AM EDT) No Maisha Kirk, CRISTOBAL Note: Patient will be compliant with monthly Self Breast Exams and is aware of to who to contact for any unusual or concerning findings. documented as of this encounter Results * XR FOOT BILATERAL [...] ??No acute changes. ??No fracture or dislocation. Nikolas Jha DPM [facility] Final Result documented in this encounter Visit Diagnoses Diagnosis Pain in both feet- Primary Pain in limb Tomlinson neuroma, left Primary osteoarthritis of left foot Acquired hammer toe Other hammer toe (acquired) Pain in both feet Pain in limb documented in this encounter Administered Medications Inactive Administered Medications - up to 1 most recent administrations Medication Order MAR Action Action Date Dose Rate Site bupivacaine HCl (MARCAINE) 0.5 % (5 mg/mL) injection 2.5 mg 2.5 mg, Tendon Sheath Injection, ONCE, 1 dose, On Fri10/31/21 at 1345, Dx: 1. Pain in both feet 2. Tomlinson neuroma, left 3. Primary osteoarthritis of left foot 4. Acquired hammer toeIndications:Pain in both feet,Tomlinson neuroma, left,Primary osteoarthritis of left foot,Acquired hammer toe Given 10/31/2021 1:39 PM EDT 2.5 mg Left Foot dexamethasone (DECADRON) injection 2 mg 2 mg, Tendon Sheath Injection, ONCE, 1 dose, On Fri10/31/21 at 1345, Dx: 1. Pain in both feet 2. Tomlinson neuroma, left 3. Primary osteoarthritis of left foot 4. Acquired hammer toeIndications:Pain in both feet,Tomlinson neuroma, left,Primary osteoarthritis of left foot,Acquired hammer toe Given 10/31/2021 1:39 PM EDT 2 mg Left Foot triamcinolone acetonide (KENALOG-40) injection 20 mg 20 mg, Tendon Sheath Injection, ONCE, 1 dose, On Fri10/31/21 at 1345, Dx: 1. Pain in both feet 2. Tomlinson neuroma, left 3. Primary osteoarthritis of left foot 4. Acquired hammer toeIndications:Pain in both feet,Tomlinson neuroma, left,Primary osteoarthritis of left foot,Acquired hammer toe Given 10/31/2021 1:40 PM EDT 20 mg Left Foot documented in this encounter Additional Health Concerns Assessment Noted Time A fall risk assessment has been complete d for the patient 04/26/2019 3:55 PM EST documented as of this encounter Care Teams Tier Over Relationship Specialty Start Date End Date Carlos Manuel Barragan [facility] [place] [facility] [address] [place] [address] PCP - General 07/03/10 documented as of this encounter
--- OUTSIDE RECORDS SUMMARY | 2024-05-04 22:52 | XMS_ITS | Encounter Summary ---
Author Organization [facility] [place] [address] Care Team Providers Care Welding Setter Name Role Phone Carlos Manuel Barragan Primary Care Provider [phone] Encounter Details Date Type Department Care Team (Latest Contact Info) Description 03/27/2020 Travel Social History Tobacco Use Types Packs/Day [...] have Coronavirus / COVID-19? No / Unsure 03/27/2020 9:09 AM EST documented as of this encounter Functional [...] 10:30 AM EST Office Visit [facility] [address] [place] [address] Nikolas Jha [address] [place] [address] [address] [place] [address] documented as of this encounter [...] documented as of this encounter Care Teams Welding Setter Relationship Specialty Start Date End Date Carlos Manuel Barragan [address] [facility] [address] [place] [address] PCP - General 07/03/10 documented as of this encounter
--- OUTSIDE RECORDS SUMMARY | 2024-05-04 22:52 | XMS_ITS | Encounter Summary ---
Author Organization [place] [address] Care Team Providers Care Gun Sealing Machine Operator Name Role Phone Carlos Manuel Barragan Primary Care Provider [phone] Encounter Details Date Type Department Care Team (Late st Contact Info) Description 07/28/2020 Orders Only [facility] Women's Wellness [facility] [place] [address] Caty Moy PA-C [address] [place] [address] [place] [address] Malignant neoplasm of left female breast (HCC) Social History [...] Refills Last Filled Start Date End Date anastrozole (ARIMIDEX) 1 mg Oral TabletIndications:M alignant neoplasm of left female breast (HCC) Take 1 Tab by mouth daily. 90 Tab 3 07/28/2020 07/31/2020 documented in this encounter Plan of Treatment Upcoming Encounters Date Type Department Care Team (Late st Contact Info) Description 05/24/2024 10:30 AM EST Office Visit [facility] [address] [place] [address] Nikolas Jha Mitzi [address] [place] [address] [place] [address] documented as of this encounter Goals [...] Visit Diagnoses Diagnosis Malignant neoplasm of left female breast (HCC) Malignant neoplasm of breast (female), unspecified site documented in this encounter Discontinued Medications Medication Sig Discontinue Reason Start Date End Da te anastrozole (ARIMIDEX) 1 mg Oral TabletIndications:Maligna nt neoplasm of left female breast (HCC) Take 1 Tab by mouth daily. Reorder 07/29/2019 07/28/2020 documented as of this encounter Additional Health Concerns Assessment Noted Time A fall risk assessment has been complete d for the patient 04/26/2019 3:55 PM EST documented as of this encounter Care Teams Gun Sealing Machine Operator Relationship Specialty Start Date End Date Carlos Manuel Barragan [address] [place] [address] [address] [facility] [place] [facility] [place] [address] PCP - General 07/03/10 documented as of this encounter
--- OUTSIDE RECORDS SUMMARY | 2024-05-04 22:52 | XMS_ITS | Encounter Summary ---
Author [place] [address] Care Team Providers Care Hairspring Vibrator Name Role Phone Carlos Manuel Barragan Primary Care Provider [phone] Reason for Visit * Reason Comments Medication Refill Encounter Details Date Type Department Care Team (Late st Contact Info) Description 09/03/2021 Refill [facility] [place] [address] Caty Moy PA-C [address] [place] [address] [place] [address] Medication Refill Social History Tobacco Use Types [...] End Date anastrozole (ARIMIDEX) 1 mg Oral TabletIndications: Malignant neoplasm of left female breast (HCC) TAKE 1 TABLET EVERY DAY 90 Tablet 09/03/2021 03/16/2024 documented in this encounter Plan of Treatment Upcoming Encounters Date Type Department Care Team (Late st Contact Info) Description 05/24/2024 10:30 AM EST Office Visit [facility] [address] [place] [phone] Nikolas Jha Mitzi [address] [place] [address] [address] [place] [phone] documented as of this encounter Goals [...] (HCC) Take 1 Tab by mouth daily. 07/31/2020 09/03/2021 documented as of this encounter Additional Health Concerns Assessment Noted Time A fall risk assessment has been complete d for the patient 04/26/2019 3:55 PM EST documented as of this encounter Care Teams Hairspring Vibrator Relationship Specialty Start Date End Date Carlos Manuel Barragan [address] [place] [address] [address] [place] [address] PCP - General 07/03/10 documented as of this encounter
--- OUTSIDE RECORDS SUMMARY | 2024-05-04 22:52 | XMS_ITS | Encounter Summary ---
Author Organization [facility] [place] [address] Care Team Providers Care Rn Surgery Icu Name Role Phone Carlos Manuel Barragan Primary Care Provider [phone] Encounter Details Date Type Department Care Team (Latest Contact Info) Description 10/30/2020 Travel Social History Tobacco Use Types Packs/Day [...] Assessment Author No 06/03/2015 1:49 PM Mitzi Jmienez APRN * Is the person blind or [...] 10:30 AM EST Office Visit [facility] [address] [place] [phone] Nikolas Jha [address] [place] [phone] documented as of this encounter Goals [...] documented as of this encounter Care Teams Rn Surgery Icu Relationship Specialty Start Date End Date Carlos Manuel Barragan [address] [place] [address] PCP - General 07/03/10 documented as of this encounter
--- OUTSIDE RECORDS SUMMARY | 2024-05-04 22:52 | XMS_ITS | Encounter Summary ---
Author Organization [place] [address] Care Team Providers Care Director Environmental Name Role Phone Carlos Manuel Barragan Primary Care Provider [phone] Reason for Visit * Reason Onset Date Comments Appointment Needed 10/27/2019 Encounter Details Date Type Department Care Team (Late st Contact Info) Description 10/27/2019 Telephone [facility] [place] [address] Faye Smith, [place] Appointment Needed Social History Tobacco Use Types Packs/Day Years [...] encounter Miscellaneous Notes * Telephone Encounter - Faye Smith, Clerical Staff - 10/27/2019 11:51 AM EDT Patient scheduled and will check MyCHart * Telephone Encounter - Faye Smith, Clerical Staff - 10/27/2019 11:51 AM EDT ----- Message from Kristine Hill RN sent at 10/27/2019 10:04 AM EDT ----- Pt is due for her screening in February. She will call for her mammo appt. She needs to return to Dr. Crouch in one year. This is her fifth year anniversary. She will check My C for her appt. documented in this encounter Plan of Treatment Upcoming Encounters Date Type Department Care Team (Late st Contact Info) Description 05/24/2024 10:30 AM EST Office Visit [facility] [place] [address] [place] [address] Nikolas Jha, DPM [address] [facility] [address] [place] [address] documented as of this encounter [...] as of this encounter Care Teams Director Environmental Relationship Specialty Start Date End Date Carlos Manuel Barragan [address] [facility] [address] [place] [address] PCP - General 07/03/10 documented as of this encounter
--- OUTSIDE RECORDS SUMMARY | 2024-05-04 22:52 | XMS_ITS | Encounter Summary ---
Author Organization [facility] [place] [address] Care Team Providers Care Admissions Advisor Name Role Phone Carlos Manuel Barragan Primary Care Provider [phone] Encounter Details Date Type Department Care Team (Latest Contact Info) Description 11/03/2019 Travel Social History Tobacco Use Types Packs/Day [...] 10:30 AM EST Office Visit [facility] [address] [place] [phone] Nikolas Jha Mitzi [address] [place] [address] [address] [place] [address] documented as of this encounter [...] documented as of this encounter Care Teams Admissions Advisor Relationship Specialty Start Date End Date Carlos Manuel Barragan 1210 [facility] [address] [place] [address] PCP - General 07/03/10 documented as of this encounter
--- OUTSIDE RECORDS SUMMARY | 2024-05-04 22:52 | XMS_ITS | Encounter Summary ---
Author Organization [facility] [address] Care Team Providers Care Simulation Educator Name Role Phone Carlos Manuel Barragan Primary Care Provider [phone] Encounter Details Date Type Department Care Team (Latest Contact Info) Description 10/26/2019 Travel Social History Tobacco Use Types Packs/Day [...] 10:30 AM EST Office Visit [facility] [address] [place] [phone] Nikolas Jha Mitzi [address] [place] [address] [address] [place] [address] documented as of this encounter [...] documented as of this encounter Care Teams Simulation Educator Relationship Specialty Start Date End Date Carlos Manuel Barragan 12[address] [facility] [address] [place] [address] PCP - General 07/03/10 documented as of this encounter
--- OUTSIDE RECORDS SUMMARY | 2024-05-04 22:52 | XMS_ITS | Encounter Summary ---
Author Organization [place] [address] Care Team Providers Care Test Data Developer Name Role Phone Carlos Manuel Barragan Primary Care Provider [phone] Reason for Visit * Mammography (Routine) - Closed Specialty Diagnoses / Procedures Referred By Heather santos Referred To Contact Radiology Diagnoses Encounter for screening mammogram for malignant neoplasm of breast Procedures MM MAMMO DIGITAL VANNESA SCREEN RIGHT MM MAMMO DIGITAL SCREENING W CAD RIGHT Dany Crouch MD [address] [place] [address] [address] [place] [address] Phone: tel: fax: Referral ID Status Reason Start Date Expiration Date Visits Re quested Visits Authorized [id number] Closed 03/24/2020 03/24/2022 1 1 Encounter Details Date Type Department Care Team (Latest Contact Info) Description 03/27/2020 9:12 AM EST - 03/27/2020 11:59 PM [facility] Hospital Encounter [facility] Mammography [address] [place] [address] Dany Crouch MD [address] [place] [address] [address] [place] [address] Encounter for screening mammogram for malignant neoplasm [...] Author No 06/03/2015 1:49 PM iMtzi Jimenez APRN * Is the person blind [...] EST Office Visit [facility] [place] [address] [facility] [address] [place] [phone] Nikolas Jha, SURENDRA [address] [facility] [address] [place] [address] documented as of this encounter [...] MM MAMMO DIGITAL VANNESA SCREEN RIGHT Routine 03/27/2020 9:26 AM EST Encounter for screening mammogram for malignant neoplasm of breast documented in this encounter Results * MM MAMMO DIGITAL VANNESA SCREEN RIGHT (03/27/2020 9:26 AM EST) Anatomical Region Laterality Modality Breast Right Mammography 03/27/2020 10:4 4 AM EST Impressions 03/27/2020 10:44 AM EST Negative ??([id number]) ~ RECOMMENDATION: Routine screening mammogram of the right breast in 1 year. ~ DISCLAIMER * Any [...] the next mammogram, in accordance with the [place] and the Society of Breast Imaging recommendations. Narrative 03/27/2020 10:44 AM EST Procedure:MM MAMMO DIGITAL VANNESA SCREEN RIGHT ~ Z12.31-Encounter for screening mammogram for malignant neoplasm of ezpehd-[id number]-CM ~ 69-year-old asymptomatic female with history of left breast malignancy 2016 status post left mastectomy. ~ MM MAMMO DIGITAL VANNESA SCREEN RIGHT CC and MLO view(s) were taken of the right breast. Technologist: Christina Shay RT There are scattered fibroglandular densities. Prior study comparison: Compared with prior studies the most recent being 03/23/19, 06/11/18 Patient is status post left mastectomy. No suspicious mass, architectural distortion, or microcalcifications. No mammographic evidence of malignancy. ~ Procedure Note Dany Fitzpatrick MD - 03/27/2020 Procedure:MM MAMMO DIGITAL VANNESA SCREEN RIGHT ~ Z12.31-Encounter for screening mammogram for malignant neoplasm of ewornq-XVR-64-CM ~ 69-year-old asymptomatic female with history of left breast [id number] status post left mastectomy. ~ MM MAMMO DIGITAL VANNESA SCREEN RIGHT CC and MLO view(s) were taken of the right breast. Technologist: RT Barbara There are scattered fibroglandular densities. Prior study comparison: Compared with prior studies the most recentbeing 03/23/19, 06/11/18 Patient is status post left mastectomy. No suspicious mass,architectural distortion, or microcalcifications. No mammographic evidence ofmalignancy. ~ IMPRESSION: Negative (UHC-Qirdtuee-6) ~ RECOMMENDATION: Routine screening mammogram of the right breast in 1 year. ~ DISCLAIMER * Any [...] the next mammogram, in accordance with the [place] and the Society of [...] documented as of this encounter Care Teams Test Data Developer Relationship Specialty Start Date End Date Carlos Manuel Barragan [address] [place] [address] [place] [address] PCP - General 07/03/10 documented as of this encounter
--- OUTSIDE RECORDS SUMMARY | 2024-05-04 22:52 | XMS_ITS | Encounter Summary ---
Author Organization [facility] [address] Care Team Providers Care Quality Control Assessor Name Role Phone Carlos Manuel Barragan Primary Care Provider [phone] Encounter Details Date Type Department Care Team (Latest Contact Info) Description 08/09/2020 Travel Social History Tobacco Use Types Packs/Day [...] have Coronavirus / COVID-19? No / Unsure 08/09/2020 1:53 PM EDT documented as of this encounter [...] 06/03/2015 1:49 PM TRISTIAN Mitzi Archer stephon Treoj APRN documented in this encounter Plan of Treatment Upcoming Encounters Date Type Department Care Team (Late st Contact Info) Description 05/24/2024 10:30 AM EST Office Visit [facility] [address] [place] [phone] Nikolas Jha [address] [place] [phone] documented as of this encounter Goals [...] documented as of this encounter Care Teams Quality Control Assessor Relationship Specialty Start Date End Date Carlos Manuel Barragan [address] [place] [address] PCP - General 07/03/10 documented as of this encounter
--- OUTSIDE RECORDS SUMMARY | 2024-05-04 22:52 | XMS_ITS | Encounter Summary ---
Author Organization [place] [address] Care Team Providers Care Batch Still Operator Name Role Phone Carlos Manuel Barragan Primary Care Provider [phone] Reason for Referral * MRI/CAT Scan (Routine) - Closed Specialty Diagnoses / Procedures Referred By Contac t Referred To Contact Radiology Diagnoses Lipoma of left lower extremity Procedures MRI KNEE LEFT WO CONTRAST Brian Newman MD Phone: tel: Referral ID Status Reason Start Date Expiration Date Visits Re quested Visits Authorized [id number] Closed 08/08/2020 08/08/2021 1 1 Reason for Visit * MRI/CAT Scan (Routine) - Closed Specialty Diagnoses / Procedures Referred By Contac t Referred To Contact Radiology Diagnoses Lipoma of left lower extremity Procedures MRI KNEE LEFT WO CONTRAST Brian Newman MD Phone: tel: Referral ID Status Reason Start Date Expiration Date Visits Re quested Visits Authorized [id number] Closed 08/08/2020 08/08/2021 1 1 Encounter Details Date Type Department Care Team (Late st Contact Info) Description 08/25/2020 10:29 AM EDT - 08/25/2020 11:59 PM EDT Hospital Encounter [facility] MRI [address] [place] [address] Brian Newman MD [address] [facility] [address] [facility] [place] [place] [address] Lipoma of left lower extremity Discharge Disposition: Home or Self Care Social [...] have Coronavirus / COVID-19? No / Unsure 08/25/2020 10:29 AM EDT documented as of this encounter [...] Assessment Author No 06/03/2015 1:49 PM Mitzi Jimeenz APRN * Because of a physical, mental [...] 10:30 AM EST Office Visit [facility] [address] [place] [phone] Nikolas Jha Mitzi [address] [place] [address] [address] [place] [address] documented as of this encounter [...] Name Priority Date/Time Associated Diagnosis Comments MRI KNEE LEFT WO CONTRAST Routine 08/25/2020 11:37 AM EDT Lipoma of left lower extremity documented in this encounter Results * MRI KNEE LEFT WO CONTRAST (08/25/2020 11:37 AM EDT) Anatomical Region Laterality Modality Knee, Patella Magnetic Resonan ce 08/25/2020 11:3 7 AM EDT Impressions 08/25/2020 12:04 PM EDT 1. No MRI evidence of hardware complication status post left knee arthroscopy placement. Specifically, no periarticular fluid collection or nonfat intensity mass. Linear scarring changes queried in the anteromedial subcutaneous fat. 2. Linear high signal in the lateral aspect of the patellar tendon could indicate intrasubstance delamination. There is no high-grade tear/rupture. Please correlate with clinical symptoms. - Narrative 08/25/2020 12:04 PM EDT MRI KNEE LEFT WO CONTRAST ??08/25/2020 11:37 AM ?? 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 TECHNIQUE: Multiplanar, multisequence MR images of the left knee were obtained without the use of contrast. Metal artifact reduction techniques utilized. FINDINGS: BONES & JOthe patient is status post total knee arthroplasty placement with patellar resurfacing button. There is no fracture, malalignment, or localized signal alteration at the hardware-bone interface suspect for loosening or particle disease. EXTENSOR MECHANISM/STABILIZERS: The quadriceps tendon is intact. There is chronic elongation of the inferior patella, with ossification/scarring noted in Hoffa's fat pad. There is linear intratendinous signal in the lateral aspect of the patellar tendon without transverse discontinuity/rupture.. MCL intact. Iliotibial band and lateral stabilizers appear grossly intact. FLUID/OTHER: There is a physiologic amount of joint fluid. There is no periarticular fluid collection or nonfat intensity mass. Linear low signal areas noted within the anteromedial cutaneous fat. Procedure Note John Gonzalez MD - 08/25/2020 MRI KNEE LEFT WO CONTRAST 08/25/2020 11:37 AM CLINICAL HISTORY: D17.24-Benign lipomatous neoplasm of skin andsubcutaneous tissue of left acx-KNB-87-CM COMPARISON: None. TECHNIQUE: Multiplanar, multisequence MR images of the left knee wereobtained without the use of contrast. Metal artifact reduction techniquesutilized. FINDINGS: BONES & JOthe patient is status post total knee arthroplasty placementwith patellar resurfacing button. There is no fracture, malalignment, orlocalized signal alteration at the hardware-bone interface suspect for looseningor particle disease. EXTENSOR MECHANISM/STABILIZERS: The quadriceps tendon is intact. Thereis chronic elongation of the inferior patella, with ossification/scarringnoted in Hoffa's fat pad. There is linear intratendinous signal in the lateralaspect of the patellar tendon without transverse discontinuity/rupture.. MCLintact. Iliotibial band and lateral stabilizers appear grossly intact. FLUID/OTHER: There is a physiologic amount of joint fluid. There is no periarticular fluid collection or nonfat intensity mass. Linear low signalareas noted within the anteromedial cutaneous fat. IMPRESSION: 1. No MRI evidence of hardware complication status post left kneearthroscopy placement. Specifically, no periarticular fluid collection or nonfatintensity mass. Linear scarring changes queried in the anteromedial subcutaneousfat. 2. Linear high signal in the lateral aspect of the patellar tendon could indicate intrasubstance delamination. There is no high-gradetear/rupture. Please correlate with clinical symptoms. - us Brian Newman MD IMG MRI ORDERABLES Final Result documented in this encounter Visit Diagnoses Diagnosis Lipoma of left lower extremity documented in this encounter Additional Health Concerns Assessment Noted Time A fall risk assessment has been complete d for the patient 04/26/2019 3:55 PM EST documented as of this encounter Care Teams Batch Still Operator Relationship Specialty Start Date End Date Carlos Manuel Barragan [address] [place] [address] [facility] [address] [place] [address] PCP - General 07/03/10 documented as of this encounter
--- OUTSIDE RECORDS SUMMARY | 2024-05-04 22:52 | XMS_ITS | Encounter Summary ---
Author Organization [facility] [place] [address] Care Team Providers Care Armed Custom Protection Officer Name Role Phone Carlos Manuel Barragan Primary Care Provider [phone] Encounter Details Date Type Department Care Team (Latest Contact Info) Description 08/03/2020 Travel Social History Tobacco Use Types Packs/Day [...] have Coronavirus / COVID-19? No / Unsure 08/03/2020 9:31 AM EST documented as of this encounter [...] AM EST Office Visit [facility] [address] [place] [phone] Nikolas Jha Mitzi [address] [place] [address] [address] [place] [phone] documented as of this encounter Goals [...] documented as of this encounter Care Teams Armed Custom Protection Officer Relationship Specialty Start Date End Date Carlos Manuel Barragan [address] [place] [address] PCP - General 07/03/10 documented as of this encounter
--- OUTSIDE RECORDS SUMMARY | 2024-05-04 22:52 | XMS_ITS | Encounter Summary ---
Author Organization [facility] [place] [address] Care Team Providers Care Category Development Manager Name Role Phone Carlos Manuel Barragan Primary Care Provider [phone] Encounter Details Date Type Department Care Team (Latest Contact Info) Description 08/25/2020 Travel Social History Tobacco Use Types Packs/Day [...] 10:30 AM EST Office Visit [facility] [address] [place] [phone] Nikolas Jha [address] [place] [phone] documented as of this encounter Goals Goal Patient Goal Type Associated Problems Recent Progress Patient-Stated? Author Breast Health Breast Health On track( 021 9:11 AM EDT) Maisha Andersno, RN Note: Patient will be compliant with [...] documented as of this encounter Care Teams Category Development Manager Relationship Specialty Start Date End Date Carlos Manuel Barragan [address] [place] [address] PCP - General 07/03/10 documented as of this encounter
--- OUTSIDE RECORDS SUMMARY | 2024-05-04 22:52 | XMS_ITS | Encounter Summary ---
Author Organization [place] [address] Care Team Providers Care Stitching Machine Setter Name Role Phone Carlos Manuel Barragan Primary Care Provider [phone] Reason for Visit * Reason Onset Date Comments Other 01/11/2021 Encounter Details Date Type Department Care Team (Late st Contact Info) Description 01/11/2021 Telephone [facility] [place] [address] Jessy Donato, RN Other Social History Tobacco Use Types Packs/Day [...] hr Take 1 Tablet by mouth daily. 30 Tablet 2 01/11/2021 04/12/2021 documented in this encounter Miscellaneous Notes * Telephone Encounter - Jessy Donato RN - 01/11/2021 1:06 PM EDT Contacted patient, notified her that RX is filled. NN please check on patient in 2 weeks to see howshe is doing on Ditropan. * Telephone Encounter - Caty Moy PA-C - 01/11/2021 12:29 PM EDT Rx for ditropan 5mg ER sent to [facility]. Please check on pt in 2 weeks to see how she is doing with new med. If tolerating well, will bump up to 90 day script if desired. Thanks! * Telephone Encounter - Jessy Donato RN - 01/11/2021 11:21 AM EDT Pt called NN line, states that she had a BCI test and was told to continue taking Arimidex. Pt states Dr. Crouch told her if she had to continue to take Arimidex that he would prescribe something for hot flashes. Will send to Caty to send in RX for Ditropan-pt's pharmacy confirmed as [facility]. documented in this encounter Plan of Treatment Upcoming Encounters Date Type Department Care Team (Late st Contact Info) Description 05/24/2024 10:30 AM EST Office Visit [facility] [address] [place] [phone] Nikolas Jha, [address] [place] [phone] documented as of this encounter Goals [...] documented as of this encounter Care Teams Stitching Machine Setter Relationship Specialty Start Date End Date Carlos Manuel Barragan [address] [facility] [address] [place] [address] PCP - General 07/03/10 documented as of this encounter
--- OUTSIDE RECORDS SUMMARY | 2024-05-04 22:52 | XMS_ITS | Encounter Summary ---
Author Organization [place] [address] Care Team Providers Care Arc Welder Name Role Phone Carlos Manuel Barragan Primary Care Provider [phone] Encounter Details Date Type Department Care Team (Late st Contact Info) Description 10/31/2020 Orders Only [facility] Women's Wellness [facility] [place] [id number] Cheri Reyes Malignant neoplasm of left female breast, unspecified estrogen receptor status, unspecified site of breast (HCC) (Primary Dx) Social History Tobacco Use Types [...] Author No 06/03/2015 1:49 PM Mitzi Jimenez, PHLEBOTOMY SERVICES REPRESENTATIVE * Is the person blind or does [...] 10:30 AM EST Office Visit [facility] [address] [place] [phone] [address]ha [address] [place] [address] [place] [phone] documented as of this encounter Goals [...] Procedure Name Priority Date/Time Associated Diagnosis Comments PATHOLOGY TISSUE ADD-ON ORDER Routine 10/31/2020 10:16 AM EDT Malignant neoplasm of left female breast, unspecified estrogen receptor status, unspecified site of breast (HCC) documented in this encounter Results * PATHOLOGY TISSUE ADD-ON ORDER (10/31/2020 10:16 AM EDT) Tissue 10/31/2020 10:1 6 AM EDT 10/31/2020 10:16 AM EDT us Dany Crouch MD PATHOLOGY ORDERABLES Final Result Performing Organization Address City/State/[facility] Co de Phone Number [address] [address] documented in this encounter Visit Diagnoses Diagnosis Malignant neoplasm of left female breast, unspecified estrogen receptor status, unspecified site of breast (HCC)- Primary documented in this encounter Additional Health Concerns Assessment Noted Time A fall risk assessment has been complete d for the patient 04/26/2019 3:55 PM EST documented as of this encounter Care Teams Arc Welder Relationship Specialty Start Date End Date Carlos Manuel Barragan [address] [place] [address] [address] [place] [address] PCP - General 07/03/10 documented as of this encounter
--- OUTSIDE RECORDS SUMMARY | 2024-05-04 22:52 | XMS_ITS | Encounter Summary ---
Author Organization [facility] [address] Care Team Providers Care Salad Counter Attendant Name Role Phone Carlos Manuel Barragan Primary Care Provider [phone] Encounter Details Date Type Department Care Team (Latest Contact Info) Description 08/05/2019 Travel Social History Tobacco Use Types Packs/Day [...] AM EST Office Visit [facility] [address] [place] [phone] Nikolas Jha [address] [place] [address] [place] [phone] documented as of this encounter Goals [...] documented as of this encounter Care Teams Salad Counter Attendant Relationship Specialty Start Date End Date Carlos Manuel Barragan [address] [facility] [address] [place] [address] PCP - General 07/03/10 documented as of this encounter
--- OUTSIDE RECORDS SUMMARY | 2024-05-04 22:52 | XMS_ITS | Encounter Summary ---
Author Organization [place] [address] Care Team Providers Care Chief Of Party Name Role Phone Carlos Manuel Barragan Primary Care Provider [phone] Reason for Referral * Mammography (Routine) - [...] SCREENING W CAD RIGHT Dany Crouch MD [address] [place] [address] [place] [address] Phone: tel: fax: Referral ID Status Reason Start Date Expiration Date Visits Re quested Visits Authorized [id number] Closed 10/30/2020 10/30/2022 1 1 Reason for Visit * Reason Comments Follow-up Encounter Details Date Type Department Care Team (Latest Contact Info) Description 10/30/2020 8:57 AM EDT - 10/30/2020 11:59 PM EDT Hospital Encounter [facility] Women's [facility] [place] [address] Dany Crouch MD [address] [place] [address] [address] [place] [address] Malignant neoplasm of left breast in female, estrogen receptor positive, unspecified site of breast (HCC) (HCC) (Primary Dx); Encounter for follow-up surveillance of breast cancer; Encounter for monitoring aromatase inhibitor therapy; Osteopenia, unspecified location; History of breast cancer; Essential hypertension; Encounter for screening mammogram for malignant neoplasm [...] Sign Reading Time Taken Comments Blood Pressure 154/84 10/30/2020 9:10 AM EDT Pulse 50 10/30/2020 9:10 AM EDT Temperature 36.4 ??C (97.6 ??F) 10/30/2020 9:10 AM ED T Respiratory Rate 12 10/30/2020 9:10 AM EDT Oxygen Saturation - - Inhaled Oxygen Concentration - - Weight 95.8 kg (211 lb 3.2 oz) 10/30/2020 9:10 A M EDT Height 161.3 cm (5' 3.5 ) 10/30/2020 9:10 AM EDT Body Mass Index 36.83 10/30/2020 9:10 AM EDT documented in this encounter Functional [...] documented in this encounter Progress Notes * Maisha Prater RN - 10/30/2020 9:00 AM EDT Patient seen in breast clinic for annual follow up. Remains taking Arimidex - no problems. Right Breast Mammogram results negative 04/14/20. CBE per Dr. Crouch with negative findings. Denies any complaints of back or bone pain, SOB, denies breast lumps or nipple discharge; denies recent illness. Reviewed medical and family history. Taking Vitamin D. P: knowledge deficit r/t future health G: educate patient I: discussed future health following breast cancer; discussed monthly self breast exams; discussed importance of annual screening mammograms. Discussed Ditropan for Hot flashes, Discussed Breast Cancer Index Score, pt agreeable, Discussed importance of healthy diet and exercise for overall health results and cancer risk reductions. Emotional support given. PLAN: Screening mammogram in 2020 Breast Cancer Index Score to be sent. * Dany Crouch MD - 10/30/2020 9:00 AM EDT Images from the original note were not included. Subjective: Ms. Alarcon is here for a scheduled routine follow-up visit History of Present Illness The patient is a 70 y.o. female who presents with a complaint of annual breast cancer follow up- 5 year anniversary She is taking Arimidex and tolerating I have confirmed and addended the HPI and thus it represents my work HPI Past Medical History: Diagnosis Date ??? [...] ; Surgeon: Flaco Damon MD; Location: [facility]; Service: Plastics ??? BREAST REDUCTION SURGERY Right 11/16/2015 Surgeon: Flaco Damon MD; Location: [facility]; Service: Plastics ??? BREAST SURGERY Left 06/02/2015 BREAST RECONSTRUCTION 1ST STAGE WITH EXPANDERS ; Surgeon: Flaco Damon MD; Location: [facility]; Service: General ??? CARPAL TUNNEL RELEASE Bilateral 02/12/2018 BILATERAL CARPAL TUNNEL RELEASE ; Surgeon: Francisco Javier Lepe MD; Location: [facility]; Service: Hand ??? CHOLECYSTECTOMY ??? COLONOSCOPY ??? DENTAL SURGERY wisdom teeth extracted ??? FOOT SURGERY Left 10/05/2010 hammertoes ??? HIP SURGERY 2009 right total ??? KNEE SURGERY 2008 right TKR ??? TONSILLECTOMY ??? TOTAL KNEE ARTHROPLASTY Left 09/29/2018 LEFT TOTAL KNEE ARTHROPLASTY; Surgeon: Brian Newman MD; Location: [facility]; Service: Orthopedics Family History Problem Relation Age [...] Take 1 Tab by mouth daily. ??? calcium polycarbophiL (FIBERCON) 625 mg Oral Tablet Take 625 mg by mouth daily. ??? Cholecalciferol, Vitamin D3, 2,000 unit Oral Capsule Take by mouth daily. ??? etodolac (LODINE) 500 mg Oral Tablet Take 500 mg by mouth 2 times daily. ??? EVENING PRIMROSE OIL ORAL Take by mouth daily. ??? gabapentin (NEURONTIN) 100 mg Oral Capsule 300 mg. 1 ??? metoclopramide HCl (REGLAN) 5 mg Oral Tablet Take 5 mg by mouth 2 times daily. ??? potassium chloride SA (K-DUR;KLOR-CON) 20 mEq Oral Tab Sust.Rel. Particle/Crystal Take 20 mEq by mouth daily. ??? rosuvastatin (CRESTOR) 10 mg Oral Tablet Take 10 mg by mouth daily. ??? apixaban (ELIQUIS) 2.5 mg Oral Tablet Take 1 Tab by mouth 2 times daily for 10 days. (Patient not taking: Reported on 10/20/2018) 20 Tab 0 ??? HYDROcodone-acetaminophen (NORCO) 7.5-325 mg Oral Tablet [...] ??? Penicillins Rash Review of Systems Constitutional: Negative for activity change, appetite change, chills, fatigue, fever and unexpected weight change. Hot flashes HENT: Negative for trouble swallowing. Eyes: Positive for visual disturbance ( pt wears corrective lens). Respiratory: Negative for shortness of breath. Musculoskeletal: Positive for arthralgias. Objective: Vitals: 10/30/20 0910 BP: 154/84 Pulse: 50 Resp: 12 Temp: 97.6 ??F (36.4 ??C) Weight: 211 lb 3.2 oz (95.8 kg) Height: 5' 3.5 (1.613 m) Body mass index is 36.83 kg/m??. Physical Exam Vitals signs and nursing note reviewed. Exam conducted with a canine service instructor trainer present. Constitutional: Appearance: Normal appearance. HENT: Head: Normocephalic and atraumatic. Cardiovascular: Rate and Rhythm: Normal rate. Pulmonary: Effort: Pulmonary effort is normal. Chest: Breasts: Left: Absent. Comments: Negative right breast exam Negative left chest exam Abdominal: General: Abdomen is flat. There is [...] Judgment: Judgment normal. Assessment and Plan: Annual breast cancer follow up - 5 year Anniversary Mitzi/g imaging reviewed from March by imaging and exam She reports having hot flashes. Discussed option of taking Oxybutynin She is taking Arimidex and tolerating Dexa scan reviewed and a little low Vitamin D therapy reinforced Discussed breast index testing to determine benefit of extended endocrine therapy Breast Index test ordered and I will call her with the result Mammogram ordered . Return based on breast index score Note written by PRASANNA Reeves, acting as scribe for Yamel Crouch MD. Prior to Arrival Reviewed Pathology, Imaging, Medications and Surgical Note Juany was seen today for follow-up. Diagnoses and all orders for this visit: Malignant neoplasm of left breast in female, estrogen receptor positive, unspecified site of breast(HCC) - MM MAMMO DIGITAL SCREENING W CAD RIGHT; Future Encounter for follow-up surveillance of breast cancer - MM MAMMO DIGITAL SCREENING W CAD RIGHT; Future Encounter for monitoring aromatase inhibitor therapy Osteopenia, unspecified location History of breast cancer Essential hypertension Encounter for screening mammogram for malignant neoplasm of breast - MM MAMMO DIGITAL SCREENING W CAD RIGHT; Future ???I have reviewed this note and it accurately reflects my work and decisions made during this visit.?? Dany Crouch MD documented in this encounter Miscellaneous Notes * Patient Instructions - Maisha Prater RN - 10/30/2020 9:00 AM EDT Today's exam is normal. It is recommended that you take Vitamin D3; there are new findings that associate low Vitamin D levels to breast cancer and lung cancer and colon cancer ; The usual over the counter dosage is 0476-0753 units daily. 1000 units in the Summer and 2000 units in the Winter Continue taking vit D. Maintain a healthy diet and exercise for overall health benefits and cancer risk reduction. Signs and symptoms to watch for following breast cancer include: 1)unusual and persistant shortnessof breath that has no explanation 2) unusual persistant bone/back pain that has no explanation, continues to worsen over a period of time, and is capable of waking you up at night 3)breast lumps or nipple discharge. 4) persistent, progressive headaches Don't forget to continue monthly Self Breast Exam Report new lumps that feel like a hard rock or pebble. You are due for a right screening mammogram in 04/15. Nurse Navigator phone number [phone] Please remember the nurse checks voice mail messages throughout the day. However, if the Nurse taking care of the phone messages is with a patient, she may not be available to return your call until later in the day. If you need immediate assistance or there is any emergency, please call your Doctors number or go to the Emergency Room. We will call you when your Breast Cancer Index Score is available. Patient Education Patient Education How to Perform Breast Self-Examination Why is this procedure done? It is important to be aware of how your breasts normally look and feel. This way you can report anychanges to your doctor right away. Some women find it helpful to do a breast self-exam to look for lumps or changes in your breast. It is good to do this exam 3 to 5 days after your period ends. Thisis when your breasts are less swollen or tender. If you do not have periods, try to do the exam on the same day every month. Some people choose the first of the month to help them remember. What will the results be? You will be aware of any changes in your breast. You are feeling for pain or lumps. You are lookingto see if there are changes like: ?? Swelling ?? Dimpling ?? Redness ?? Scaly nipple or breast skin ?? Nipple discharge ?? Nipples pushed inward or inverted nipples What happens during the procedure? Standing Exam ?? binder caser front of a mirror so that you can see both of your breasts clearly. Check each breast for anything unusual. Look for a discharge from the nipples. ?? Watch closely in the mirror. Put your hands behind your head and press your elbows forward. Check if there is any change in the shape of your breasts. ?? Press your hands firmly on your hips and bend slightly toward the mirror as you pull your shoulders and elbows forward. Check if there is any change in the shape of your breasts. ?? Gently press each nipple and look for discharge. ?? Raise your right arm. Use the pads of the fingers of your left hand to check the right breast and the area around it. You may use lotion or powder to help your fingers glide easily over the skin. Some people also find it easy to do this in the shower. Feel for any lump or mass under the skin. ?? Feel the tissue by pressing your fingers in small overlapping areas the size of a dime. Be sure to cover your whole breast. Take your time. Follow a definite pattern, such as vertical lines, a continuous confederated yakama, or a wedge pattern. ?? Check the upper and outer part of the right breast and the right armpit as well. ?? Repeat the exam on your left breast, using the finger pads of your right hand. Lying Down Exam ?? Lie down with a pillow under your right shoulder and place your right arm behind your head. ?? Use the finger pads of the three middle fingers on your left hand to feel for lumps in your right breast. ?? Press firmly enough to know how your breast feels. A firm ridge in the lower curve of each breast is normal. ?? Move around the breast in a continuous confederated yakama, vertical lines, or a wedge pattern. Be sure to doit the same way each month. Check the entire breast. ?? Repeat the exam on your left breast, using the finger pads of your right hand. The whole procedure will take about 10 to 20 minutes. What follow-up care is needed? Call your doctor if you notice any unusual lumps or changes in your breast. Where can I learn more? [employer] https://www.cancer.org/cancer/breast-cancer/hyoutxkjlw-xvtij-txhogtzfn-about-the -rpsiibaw-zqdrqe-adlsqbt-efd-qjzejf-pupfbj-screening-guideline.html Breast Cancer.org http://www.breastcancer.org/symptoms/testing/types/self_exam/bse_steps Last Reviewed Date 2019-07-30 Consumer Information Use and Disclaimer This information is not specific medical advice and does not replace information you receive from your health care provider. This is only a brief summary of general information. It does NOT include all information about conditions, illnesses, injuries, tests, procedures, treatments, therapies, discharge instructions or life-style choices that may apply to you. You must talk with your health care provider for complete information about your health and treatment options. This information should not be used to decide whether or not to accept your health care provider???s advice, instructions or recommendations. Only your health care provider has the knowledge and training to provide advice that is right for you. Copyright Copyright ?? 2020 [employer]. and its affiliates and/or licensors. All rights reserved. documented in this encounter Plan of Treatment Upcoming Encounters Date Type Department Care Team (Late st Contact Info) Description 05/24/2024 10:30 AM EST Office Visit [facility] [address] [place] [phone] Nikolas Jha DPM [address] [place] [address] [place] [place] [phone] documented as of this encounter Goals Goal Patient Goal Type Associated Problems Recent Progress Patient-Stated? Author Breast Health Breast Health On track( 021 9:11 AM EDT) No Maisha Kirk, CRISTOBAL Note: Patient will be compliant with monthly Self Breast Exams and is aware of to who to contact for any unusual or concerning findings. documented as of this encounter Results * MM MAMMO DIGITAL VANNESA SCREEN RIGHT (04/24/2021 2:41 PM EST) Anatomical Region Laterality Modality Breast Right Mammography 04/24/2021 3:47 PM EST Impressions 04/24/2021 3:47 PM EST Negative ??([id number]) ~ RECOMMENDATION: Routine screening mammogram in 1 [...] the next mammogram, in accordance with the [employer] and the Society of Breast Imaging recommendations. Narrative 04/24/2021 3:47 PM EST Procedure:MM MAMMO DIGITAL VANNESA SCREEN RIGHT ~ Reason for exam: history of breast cancer, mastectomy. Z12.31-Encounter for screening mammogram for malignant neoplasm of lofaxy-PXI-96-CM C50.912-Malignant neoplasm of unspecified site of left female breast (HCC)-ICD-10-CM Z17.0-Estrogen receptor positive status (ER+)-ICD-10-CM G69-Criwvrfmg for follow-up examination after completed treatment for malignant kknwvwas-GMW-89-CM Z85.3-Personal history of malignant neoplasm of chiidj-VFZ-72-CM ~ MM MAMMO DIGITAL VANNESA SCREEN RIGHT [...] for screening mammogram for malignant neoplasm of mmegma-CFO-11-CM C50.912-Malignant neoplasm of unspecified site of left female breast (HCC)-ICD-10-CM Z17.0-Estrogen receptor positive status (ER+)-ICD-10-CM Q95-Hngkzwcof for follow-up examination after completed treatment for malignant xumsrqpn-XEB-48-CM Z85.3-Personal history of malignant neoplasm of knhbww-YZV-42-CM ~ MM MAMMO DIGITAL VANNESA SCREEN RIGHT CC and MLO view(s) were taken of the right breast. Technologist: Radha Granda, RT There are scattered fibroglandular densities. Prior study comparison: Compared with prior studies the most recentbeing 03/27/20, 03/23/19 Prior left mastectomy and right reduction surgery. No mammographicevidence of malignancy. ~ IMPRESSION: Negative (HRF-Ywicqeaw-2) ~ RECOMMENDATION: Routine screening mammogram in 1 [...] the next mammogram, in accordance with the [employer] and the Society of Breast Imaging recommendations. Dany Crouch MD IM MAMMOGRAPHY ORDERABLES Final Result documented in this [...] of breast Essential hypertension Unspecified essential hypertension Encounter for screening mammogram for malignant neoplasm of breast Other screening mammogram Encounter for screening mammogram for malignant neoplasm of breast Other screening mammogram Malignant neoplasm of left breast in female, estrogen receptor positive, unspecified site of breast (HCC) Encounter for follow-up surveillance of breast cancer Unspecified follow-up examination documented in this encounter Historical Medications * This list may reflect changes made after this encounter. metoclopramide HCl (REGLAN) 5 mg Oral Tablet Take 5 mg by mouth 2 times daily. etodolac (LODINE) 500 mg Oral Tablet Take 500 mg by mouth 2 times daily. 03/16/2024 added in this encounter Additional Health Concerns Assessment Noted Time A fall risk assessment has been complete d for the patient 04/26/2019 3:55 PM EST documented as of this encounter Care Teams Chief Of Party Relationship Specialty Start Date End Date Carlos Manuel Barragan [address] [place] [address] PCP - General 07/03/10 documented as of this encounter
--- OUTSIDE RECORDS SUMMARY | 2024-05-04 22:52 | XMS_ITS | Encounter Summary ---
Author Organization [place] [address] Care Team Providers Care Wrapper Sizer Name Role Phone Carlos Manuel Barragan Primary Care Provider [phone] Encounter Details Date Type Department Care Team (Late st Contact Info) Description 07/31/2020 Orders Only [facility] Women's Wellness [facility] [place] [address] Caty Moy PA-C [address] [place] [address] [place] [address] Malignant neoplasm of left female breast (HCC) [...] daily. 90 Tab 3 07/31/2020 09/03/2021 documented in this encounter Plan of Treatment Upcoming Encounters Date Type Department Care Team (Late st Contact Info) Description 05/24/2024 10:30 AM EST Office Visit [facility] [address] [place] [phone] Nikolas Jha Mitzi [address] [place] [address] [place] [phone] documented as of this encounter Goals [...] Take 1 Tab by mouth daily. Reorder 07/28/2020 07/31/2020 documented as of this encounter Additional Health Concerns Assessment Noted Time A fall risk assessment has been complete d for the patient 04/26/2019 3:55 PM EST documented as of this encounter Care Teams Wrapper Sizer Relationship Specialty Start Date End Date Carlos Manuel Barragan [address] [place] [address] [address] [place] [address] PCP - General 07/03/10 documented as of this encounter
--- OUTSIDE RECORDS SUMMARY | 2024-05-04 22:52 | XMS_ITS | Encounter Summary ---
Author Organization [place] [address] Care Team Providers Care Biomathematician Name Role Phone Carlos Manuel Barragan Primary Care Provider [phone] Reason for Visit * Reason Comments Gynecologic Exam Encounter Details Date Type Department Care Team (Latest Contact Info) Description 12/19/2020 1:40 PM EDT [facility] Visit [facility] [address] [place] [phone] Adrian Marshall MD Well woman exam with routine gynecological exam (Primary Dx); [...] Sign Reading Time Taken Comments Blood Pressure 140/84 12/19/2020 1:43 PM EDT Pulse - - Temperature - - Respiratory Rate - - Oxygen Saturation - - Inhaled Oxygen Concentration - - Weight 97.1 kg (214 lb) 12/19/2020 1:43 PM EDT Height 161.3 cm (5' 3.5 ) 12/19/2020 1:43 PM EDT Body Mass Index 37.31 12/19/2020 1:43 PM EDT documented in this encounter Functional [...] Progress Notes * Adrian Marshall MD - 12/19/2020 1:40 PM EDT Chief Complaint Patient presents with ??? Gynecologic Exam History of Present Illness Juany Alarcon presents for an annual exam. She has no complaints. ROS completed and was normal. Shedenies pelvic pain and vaginal discharge. She has no GI or complaints. She has been having hot flushes and night sweats that are likely related to the Arimidex she is taking. I encouraged her to discuss her side effects with Dr Crouch. She had a left total mastectomy in 2016. Review of Systems A review of systems is negative or as per HPI Physical Exam Vitals: 12/19/20 1343 BP: 140/84 Weight: 214 lb (97.1 kg) Height: 5' 3.5 (1.613 m) HEENT: WNL Neck : Supple and without masses Chest : Symmetric excursion. Breast : No palpable masses are noted bilaterally. There is no axillary adenopathy. The patient denies nipple discharge. The breasts are symmetric bilaterally Heart : Regular rate and rhythm without [...] and all orders for this visit: Well woman exam with routine gynecological exam Encounter for screening mammogram for malignant neoplasm of breast Personal history of breast cancer documented in this encounter Plan of Treatment Upcoming Encounters Date Type Department Care Team (Late st Contact Info) Description 05/24/2024 10:30 AM EST Office Visit [facility] [address] [place] [phone] Nikolas Jha, SURENDRA [address] [address] [place] [address] documented as of this encounter Goals Goal Patient Goal Type Associated Problems Recent Progress Patient-Stated? Author Breast Health Breast Health On track( 021 9:11 AM EDT) Maisha Anderson, RN Note: Patient will be compliant with monthly Self Breast Exams and is aware of to who to contact for any unusual or concerning findings. documented as of this encounter Visit Diagnoses Diagnosis Well woman exam with routine gynecological exam- Primary Routine gynecological examination Encounter for screening mammogram for malignant neoplasm of breast Other screening mammogram Personal history of breast cancer Personal history of malignant neoplasm of breast documented in this encounter Additional Health Concerns Assessment Noted Time A fall risk assessment has been complete d for the patient 04/26/2019 3:55 PM EST documented as of this encounter Care Teams Biomathematician Relationship Specialty Start Date End Date Carlos Manuel Barragan [address] [facility] [address] [place] [address] PCP - General 07/03/10 documented as of this encounter
--- OUTSIDE RECORDS SUMMARY | 2024-05-04 22:53 | XMS_ITS | Encounter Summary ---
Author Organization 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 Adrian Marshall MD Willett, Steven L, MD Referral ID Status Reason Start Date Expiration Date Visits Re quested Visits Authorized [id number] Closed 07/15/2019 07/14/2020 99 99 Encounter Details Date Type Department Care Team (Late st Contact Info) Description 07/15/2019 10:40 AM EST [facility] [address] [place] [address] Adrian Marshall MD Well woman exam (Primary Dx); Personal history of breast cancer Social History [...] Sign Reading Time Taken Comments Blood Pressure 146/64 07/15/2019 10:46 AM EST Pulse 62 07/15/2019 10:46 AM EST Temperature - - Respiratory Rate - - Oxygen Saturation - - Inhaled Oxygen Concentration - - Weight 91.9 kg (202 lb 9.6 oz) 07/15/2019 10:46 AM EST Height 161.3 cm (5' 3.5 ) 07/15/2019 10:46 AM ES T Body Mass Index 35.33 07/15/2019 10:46 AM EST documented in this encounter Functional [...] Progress Notes * Adrian Marshall MD - 07/15/2019 10:40 AM EST Chief Complaint Patient presents with ??? Gynecologic Exam History of Present Illness Juany Alarcon presents for an annual exam. She has no complaints. ROS completed and was normal. Shedenies pelvic pain and vaginal discharge. She has no GI or complaints. She is menopausal and denies symptoms. She is 4 years out from her breast cancer diagnosis and treatment and continues on Arimidex. Review of Systems A review of systems is negative or as per HPI Physical Exam Vitals: 07/15/19 1046 BP: 146/64 BP Location: Right arm Patient Position: Sitting Pulse: 62 Weight: 202 lb 9.6 oz (91.9 kg) Height: 5' 3.5 (1.613 m) HEENT: WNL Neck : Supple and without masses Chest : Symmetric excursion. Breast : No palpable masses are noted bilaterally. The left breast has been removed. There is no axillary adenopathy. 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 Case: [id number] ? Authorizing Provider: ??Adrian Marshall MD ?Collected: ? 07/15/2019 1144 ? Ordering Location: ? [facility] ?Received: ?07/15/2019 1144 ? First Screen: ?Roya Anguiano Laine, CT ? Rescreen: ?Nicky Shay, CT ? Specimen: ?LIQUID-BASED PAP - CERVICAL/ENDOCERV ICAL, Cervix, Endocervical ? 07/19/2019 9:05 AM EST [facility] PAP FINAL DIAGNOSIS Negative for intraepithelial lesion or malignancy 07/19/2019 9:05 AM [facility] OSCOPIC DESCRIPTION Microscopic examination is performed and the findings corroborate the diagnosis. 07/19/2019 9:05 AM [facility] PAP SMEAR ADEQUACY Satisfactory for evaluation 07/19/2019 9:05 AM EST [facility] ENDOCERVICAL T-ZONE Transformation Zone Absent. This is not unusual in a post-menopausal woman. 07/19/2019 9:05 AM EST [facility] EMBEDDED IMAGES 0 9:05 AM [facility] PAP DISCLAIMER The Pap Smear is a screening test that aids in the detection of cervical cancer and cancer precursors. Both false positive and false negative results can occur. The test should be used at regular intervals, and positive results should be confirmed before definitive therapy. Processed using the ThinPrep Atg Architect Automated cytology screening device (ENDYMION). 07/19/2019 9:05 AM EST [facility] Thin Prep ENDOCERVICAL STRUCTURE / Unknown 07/15/2019 11:44 AM EST 07/15/2019 11:44 AM EST us Adrian Marshall MD CYTOLOGY ORDERABLES Final Re sult [facility] [address] [id number] documented in this encounter Visit Diagnoses Diagnosis Well woman exam- Primary Routine general medical examination at a health care facility Personal history of breast cancer Personal history of malignant neoplasm of breast documented in this encounter Historical Medications * This list may reflect changes made after this encounter. calcium polycarbophiL (FIBERCON) 625 mg Oral Tablet Take 625 mg by mouth daily. 03/16/2024 added in this encounter Additional Health Concerns Assessment Noted Time A fall risk assessment has been complete d for the patient 04/26/2019 3:55 PM EST documented as of this encounter Care Teams Travel Counselor [employer]obile Club Relationship Specialty Start Date End Date Carlos Manuel Barragan [address] [place] [address] [address] [place] [address] PCP - General 07/03/10 documented as of this encounter
--- OUTSIDE RECORDS SUMMARY | 2024-05-04 22:53 | XMS_ITS | Encounter Summary ---
Author Organization [place] [address] Care Team Providers Care Chocolate Maker Name Role Phone Carlos Manuel Barragan Primary Care Provider [phone] Encounter Details Date Type Department Care Team (Late st Contact Info) Description 06/03/2019 Orders Only [facility] [place] [address] [place] [address] [address] [place] [address] Nikolas Jha DPM [address] [facility] [address] [place] [address] Social History Tobacco Use Types Packs/Day [...] Refills Last Filled Start Date End Date doxycycline (MONODOX) 100 mg Oral Capsule Take 1 Cap by mouth 2 times daily for 10 days. 20 Cap 06/03/2019 06/13/2019 documented in this encounter Plan of Treatment Upcoming Encounters Date Type Department Care Team (Late st Contact Info) Description 05/24/2024 10:30 AM EST Office Visit [facility] [address] [place] [phone] Nikolas Jha Mitzi [address] [place] [address] [place] [phone] documented as of this encounter Goals [...] documented as of this encounter Care Teams Chocolate Maker Relationship Specialty Start Date End Date Carlos Manuel Barragan [address] [place] [address] PCP - General 07/03/10 documented as of this encounter
--- OUTSIDE RECORDS SUMMARY | 2024-05-04 22:53 | XMS_ITS | Encounter Summary ---
Author Organization [place] [address] Care Team Providers Care White Lead Grinder Name Role Phone Carlos Manuel Barragan Primary Care Provider [phone] Reason for Referral * Mammography (Routine) - Closed Specialty Diagnoses / Procedures Referred By Contac t Referred To Contact Radiology Diagnoses History of breast cancer in female Procedures MM MAMMO DIGITAL VANNESA DIAGN RIGHT Dany Crouch MD [address] [place] [address] [address] [place] [address] Phone: tel: fax: Referral ID Status Reason Start Date Expiration Date Visits Re quested Visits Authorized [id number] Closed 03/10/2019 03/10/2021 1 1 Reason for Visit * Mammography (Routine) - Closed Specialty Diagnoses / Procedures Referred By Contac t Referred To Contact Radiology Diagnoses History of breast cancer in female Procedures MM MAMMO DIGITAL VANENSA DIAGN RIGHT Dany Crouch MD [address] [place] [address] [address] [place] [address] Phone: tel: fax: Referral ID Status Reason Start Date Expiration Date Visits Re quested Visits Authorized [id number] Closed 03/10/2019 03/10/2021 1 1 Encounter Details Date Type Department Care Team (Latest Contact Info) Description 03/23/2019 12:44 PM EDT - 03/23/2019 1:05 PM EDT Hospital Encounter [facility] [place] [address] Dany Crouch MD [address] [facility] [facility] [address] [place] [address] History of breast cancer in female Discharge Disposition: Home or Self Care Social [...] 10:30 AM EST Office Visit [facility] [address] [place] [phone] Nikolas Jha, Mitzi [address] [facility] [address] [place] [address] documented as of this encounter Goals Goal Patient Goal Type Associated Problems Recent Progress Patient-Stated? Author [facility] Breast Health On track( 021 9:11 AM EDT) No Maisha Kirk RN Note: Patient will be compliant with monthly Self Breast Exams and is aware of to who to contact for any unusual or concerning findings. documented as of this encounter Procedures Procedure Name Priority Date/Time Associated Diagnosis Comments MM MAMMO DIGITAL VANNESA DIAGN RIGHT Routine 03/23/2019 12:58 PM EDT History of breast cancer in female documented in this encounter Results * MM MAMMO DIGITAL VANNESA DIAGN RIGHT (03/23/2019 12:58 PM EDT) Anatomical Region Laterality Modality Breast Right Mammography 03/23/2019 1:31 PM EDT Impressions 03/23/2019 1:31 PM EDT Incomplete-need additional imaging evaluation ([id number]) No suspicious mammographic abnormality is identified in the right breast. The region of pain will be further evaluated with ultrasound. ~ RECOMMENDATION: Ultrasound of the right breast. ~ DISCLAIMER *Any patient with a palpable abnormality, unexplained by breast imaging, should be managed on clinical basis by the attending physician. * Breast imaging has a false negative rate of 15%. * The patient was notified by mail of the results of this examination. *The patient's information was entered into a reminder system with a target due date for the next mammogram. Narrative 03/23/2019 1:31 PM EDT Indicated problem(s): right breast pain for 6 weeks. Z85.3-Personal history of malignant neoplasm of [id number]; 68-year-old female with history of left breast cancer and left mastectomy in 2016 presents with approximately 6 week history of regional pain in the right axilla, superior right breast, and right upper chest. ~ MM MAMMO DIGITAL VANNESA DIAGN RIGHT CC and MLO view(s) were taken of the right breast. There are scattered fibroglandular densities. Prior study comparison: Compared with prior studies the most recent being 06/11/18, 06/16/17 The patient has a history of prior left mastectomy and right reduction mammoplasty. No significant mammographic change is identified. No dominant mass, architectural distortion, or suspicious calcification identified in the right breast. ~ Procedure Note See Kapadia MD - 03/23/2019 Indicated problem(s): right breast pain for 6 weeks. Z85.3-Personal history of malignant neoplasm of [id number]; 68-year-old female with history of left breast cancer and leftmastectomy in 2016 presents with approximately 6 week history of regional pain inthe right axilla, superior right breast, and right upper chest. ~ MM MAMMO DIGITAL VANNESA DIAGN RIGHT CC and MLO view(s) were taken of the right breast. There are scattered fibroglandular densities. Prior study comparison: Compared with prior studies the most recentbeing 06/11/18, 06/16/17 The patient has a history of prior left mastectomy and right reduction mammoplasty. No significant mammographic change is identified. Nodominant mass, architectural distortion, or suspicious calcification identifiedin the right breast. ~ IMPRESSION: Incomplete-need additional imaging evaluation ([id number]) No suspicious mammographic abnormality is identified in the rightbreast. The region of pain will be further evaluated with ultrasound. ~ RECOMMENDATION: Ultrasound of the right breast. ~ DISCLAIMER *Any patient with a palpable abnormality, unexplained by breast imaging, should be managed on clinical basis by the attending physician. * Breast imaging has a false negative rate of 15%. * The patient was notified by mail of the results of this examination. *The patient's information was entered into a reminder system with atarget due date for the next mammogram. us Dany Crouch MD IMG MAMMOGRAPHY ORDERABLES Final Result documented in this encounter Visit Diagnoses Diagnosis History of breast cancer in female Personal history of malignant neoplasm of breast documented in this encounter Additional Health Concerns Assessment Noted Time A fall risk assessment has been complete d for the patient 07/29/2016 10:44 AM EST documented as of this encounter Care Teams White Lead Grinder Relationship Specialty Start Date End Date Carlos Manuel Barragan [address] [place] [address] [address] [place] [address] PCP - General 07/03/10 documented as of this encounter
--- OUTSIDE RECORDS SUMMARY | 2024-05-04 22:53 | XMS_ITS | Encounter Summary ---
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 Name Role Phone Carlos Manuel Barragan Primary Care Provider [phone] Reason for Referral * DEXA (Routine) - Closed Specialty Diagnoses / Procedures Referred By Heather santos Referred To Contact Radiology Diagnoses Post-menopausal Encounter for monitoring aromatase inhibitor therapy Malignant neoplasm of left breast in female, estrogen receptor positive, unspecified site of breast (HCC) Procedures DX BONE DENSITY AXIAL SKELETON Caty Moy PA-C [address] [place] [address] DR SILVERMAN [address] [place] [id number] Phone: tel: fax: Referral ID Status Reason Start Date Expiration Date Visits Re quested Visits Authorized [id number] Closed 10/20/2018 10/20/2019 1 1 Reason for Visit * Reason Comments Follow-up Encounter Details Date Type Department Care Team (Latest Contact Info) Description 10/20/2018 10:43 AM EDT - 10/20/2018 11:59 PM EDT Hospital Encounter [facility] [place] [address] Caty Moy PA-C [address] [place] [address] [place] [address] Malignant neoplasm of left breast in female, estrogen receptor positive, unspecified site of breast (HCC) (HCC) (Primary Dx); Encounter for monitoring aromatase inhibitor therapy; Post-menopausal Discharge Disposition: Home or Self Care Social [...] Sign Reading Time Taken Comments Blood Pressure 126/72 10/20/2018 10:53 AM EDT Pulse 74 10/20/2018 10:53 AM EDT Temperature 36.7 ??C (98.1 ??F) 10/20/2018 10:53 AM E DT Respiratory Rate 10 10/20/2018 10:53 AM EDT Oxygen Saturation - - Inhaled Oxygen Concentration - - Weight 94.3 kg (208 lb) 10/20/2018 10:53 AM EDT Height 167.6 cm (5' 6 ) 10/20/2018 10:53 AM EDT Body Mass Index 33.57 10/20/2018 10:53 AM EDT documented in this encounter Functional [...] Progress Notes * Maisha Prater RN - 10/20/2018 10:43 AM EDT Patient seen in breast clinic for annual follow up. Remains taking Arimidex - no problems. Mammogram results negative-06/11/18. CBE per Caty Moy PA-C with negative findings. Denies any complaintsof back or bone pain, SOB, denies breast lumps or nipple discharge; denies recent illness. Reviewedmedical and family history. Recent Left TKR, Taking Vitamin D. P: knowledge deficit r/t future health G: educate patient and spouse I: discussed future health following breast cancer; discussed monthly self breast exams; discussed importance of annual diagnostics mammograms. Discussed importance of healthy diet and exercise for overall health results and cancer risk reductions. Emotional support given. Screening mammogram in 1 year-TBS Return in one year; appointment made DEXA scan due now-TBS. * Caty Moy PA-C - 10/20/2018 10:43 AM EDT Images from the original note were not included. Subjective: Ms. Alarcon is here for a scheduled routine follow-up visit History of Present Illness The patient is a 68 y.o. female who presents for annual follow-up of left breast ILC, ER/Pr positive, Her-2 negative. She is 3.5 years from a left mastectomy with reconstruction. She takes Arimidex and Vitamin D3 daily with c/o mild arthralgia. She recently had a TKR of her left knee and has been doing therapy weekly. She feels she is recovering well. Pt denies any new breast lumps, nipple discharge, back aches, bone pains, or SOB. No new family members with breast, ovarian, prostate, pancreatic or melanoma cancer. She had a negative M/g on 06/11/18. HPI Breast cancer ([facility]) 01/26/2015 - Other Breast MRI. 2nd look ultrasound recommended. Biopsy recommended. 02/09/2015 Initial Diagnosis Breast cancer ([facility]) 02/09/2015 - Pathology Left Invasive grade 1 lobular carcinoma. ER 97%, PR49% HER2 negative per FISH 03/03/2015 Surgery LEFT BREAST CORE BIOPSY & SENTINEL LYMPH NODE DISSECTION. Dr Crouch 03/03/2015 - Pathology Left axillary sentinal lymph nodes, dissection: - No metastatic carcinoma in 4 lymph nodes. Invasive grade 1 lobular carcinoma, Claremont score 5 (3+1+1), small scattered foci. 04/12/2015 - Other Began taking Arimidex 1mg daily. Other BRCA 1 and 2 negative 03/2015 - Other Oncotype 16 - Not recommended for chemotherapy. No radiation therapy. 06/02/2015 Surgery Left Mastectomy per Dr. Crouch with reconstruction per Dr. Damon 06/02/2015 - Pathology Multicentric and multifocal invasive lobular carcinoma, grade 1. - Tumor greatest dimension (9 cm).LCIS; margins negative Past Medical History: Diagnosis Date ??? Anemia when younger only ??? Arthritis knees, hips,back ??? BRCA negative ??? Breast cancer ([facility]) 02/09/15 ILC, grade 1. No receptors at [...] SYMMETRY ; Surgeon: Flaco Damon MD; Location: [facility]; Service: Plastics ??? BREAST REDUCTION SURGERY Right 11/16/2015 Surgeon: Flaco Damon MD; Location: [facility]; Service: Plastics ??? BREAST SURGERY Left 06/02/2015 BREAST RECONSTRUCTION 1ST STAGE WITH EXPANDERS ; Surgeon: Flaco Damon MD; Location: [facility]; Service: General ??? CARPAL TUNNEL RELEASE Bilateral 02/12/2018 BILATERAL CARPAL TUNNEL RELEASE ; Surgeon: Francisco Javier Lepe MD; Location: [facility]; Service: Hand ??? CHOLECYSTECTOMY ??? COLONOSCOPY ??? DENTAL SURGERY wisdom teeth extracted ??? FOOT SURGERY Left 10/05/2010 hammertoes ??? HIP SURGERY 2009 right total ??? KNEE SURGERY 2008 right TKR ??? TONSILLECTOMY ??? TOTAL KNEE ARTHROPLASTY Left 09/29/2018 LEFT TOTAL KNEE ARTHROPLASTY; Surgeon: Brian Newman MD; Location: [facility] OR; Service: Orthopedics Family History Problem Relation Age of Onset ??? Ovarian Cancer Mother 83 ??? Cancer Mother uterus ??? Breast Cancer Sister 52 ??? High Blood Pressure Sister ??? Heart Failure Father ??? Thyroid Disease Father ??? Defects Brother ??? High Blood Pressure Sister ??? Anesth Problems Neg Hx Social History Socioeconomic History ??? Marital status: Spouse name: None ??? Number of children: None ??? Years of education: None ??? Highest education level: None Occupational History ??? None Social Needs ??? Financial resource strain: None ??? Food insecurity: Worry: None Inability: None ??? Transportation needs: Medical: None Non-medical: None Tobacco Use ??? Smoking status: Never Smoker ??? Smokeless tobacco: Never Used Substance and Sexual Activity ??? Alcohol use: Yes Comment: socially ??? Drug use: No ??? Sexual activity: Never Lifestyle ??? Physical activity: Days per week: None Minutes per session: None ??? Stress: None Relationships ??? Social connections: Talks on phone: None Gets together: None Attends mosque service: None Active member of club or organization: None Attends meetings of clubs or organizations: None Relationship status: None ??? Intimate partner violence: Fear of current or ex partner: None Emotionally abused: None Physically abused: None Forced sexual activity: None Other Topics Concern ??? None Social History Narrative ??? None Current Outpatient Medications Medication Sig Dispense Refill ??? anastrozole (ARIMIDEX) 1 mg Oral Tablet Take 1 Tab by mouth daily. 90 Tab 3 ??? aspirin 81 mg tablet Take 81 mg by mouth daily. ??? bisoprolol-hydrochlorothiazide (ZIAC) 5-6.25 mg per tablet Take 1 Tab by mouth daily. ??? Cholecalciferol, Vitamin D3, 2,000 unit Oral Capsule Take by mouth daily. ??? HYDROcodone-acetaminophen (NORCO) 7.5-325 mg Oral Tablet Take 1 Tab by mouth every 6 hours as needed for Acute Pain (R52). ??? potassium chloride SA (K-DUR;KLOR-CON) 20 mEq Oral Tab Sust.Rel. Particle/Crystal Take 20 mEq by mouth daily. ??? rosuvastatin (CRESTOR) 10 mg Oral Tablet Take 10 mg by mouth daily. ??? apixaban (ELIQUIS) 2.5 mg Oral Tablet Take 1 Tab by mouth 2 times daily for 10 days. (Patient not taking: Reported on 10/20/2018) 20 Tab 0 ??? montelukast (SINGULAIR) 10 mg Oral Tablet Take 10 mg by mouth every evening. ??? oxyCODONE (ROXICODONE) 5 mg Oral Tablet Take 1-2 Tabs by mouth every 4-6 hours as needed (Patient not taking: Reported on 10/20/2018) 30 Tab 0 ??? traMADol (ULTRAM) 50 mg Oral Tablet Take 1-2 Tabs by mouth every 6-8 hours as needed (Patient not taking: Reported on 10/20/2018) 40 Tab 0 No current facility-administered medications for this encounter. Allergies Allergen Reactions ??? Morphine Other (See Comments) confusion ??? Penicillins Rash Review of Systems Constitutional: Positive for activity change and fatigue. Negative for appetite change, chills, fever and unexpected weight [...] vaginal discharge. Musculoskeletal: Positive for arthralgias and joint swelling (left knee). Negative for back pain and neck pain. Skin: Negative for rash. Neurological: Negative for dizziness, syncope, speech difficulty, weakness, light-headedness and headaches. Hematological: Does not bruise/bleed easily. Psychiatric/Behavioral: Negative for agitation, confusion, decreased concentration, sleep disturbance and suicidal ideas. The patient is not nervous/anxious. Objective: Vitals: 10/20/18 1053 BP: 126/72 Pulse: 74 Resp: 10 Temp: 98.1 ??F (36.7 ??C) Weight: 208 lb (94.3 kg) Height: 5' 6 (1.676 m) Body mass index is 33.57 kg/m??. Physical Exam Constitutional: She is oriented to person, place, and time. She appears well- developed and well-nourished. HENT: Head: Normocephalic and atraumatic. Neck: Neck supple. No thyroid mass present. Cardiovascular: Normal rate and intact distal pulses. Pulses: Dorsalis pedis pulses are 2+ on the right side, and 2+ on the left side. Pulmonary/Chest: Effort normal. Right breast exhibits no inverted nipple, no mass, no nipple discharge, no skin change and no tenderness. Left breast exhibits no mass, no skin change and no tenderness. Breasts are symmetrical. Abdominal: Soft. She exhibits no distension and no mass. There is no tenderness. Musculoskeletal: She exhibits no edema or tenderness. Legs: Lymphadenopathy: She has no cervical adenopathy. She has no axillary adenopathy. Right axillary: No pectoral and no lateral adenopathy present. Left axillary: No pectoral and no lateral adenopathy present. Right: No supraclavicular adenopathy present. Left: No supraclavicular adenopathy present. Neurological: She is alert and oriented to person, place, and time. Skin: Skin is warm and dry. Psychiatric: She has a normal mood and affect. Her behavior is normal. Judgment and thought contentnormal. Nursing note and vitals reviewed. Assessment and Plan: Juany was seen today for follow-up. Diagnoses and all orders for this visit: Malignant neoplasm of left breast in female, estrogen receptor positive, unspecified site of breast(HCC) - DX BONE DENSITY AXIAL SKELETON; Future - No evidence of disease by exam. Pt due for bilateral Dx M/g in 06/14 - Continue Arimidex and Vitamin D3 daily - Discussed importance of diet and exercise for risk reduction and overall health benefits. - Pt encouraged to continue monthly SBE. - Pt to return in one year for annual follow-up; will schedule today Encounter for monitoring aromatase inhibitor therapy - DX BONE DENSITY AXIAL SKELETON; Future - tolerating well, will continue current therapy - joint aches mild, no interventions needed - Pt due for DEXA scan Post-menopausal - DX BONE DENSITY AXIAL SKELETON; Future documented in this encounter Miscellaneous Notes * Patient Instructions - Maisha Prater RN - 10/20/2018 10:43 AM EDT Images from the original note were not included. Today's exam is normal. It is recommended that you take Vitamin D3; there are new findings that associate low Vitamin D levels to breast cancer and lung cancer and colon cancer ; The usual over the counter dosage is 8179-3652 units daily. 1000 units in the Summer and 2000 units in the Winter Continue taking Arimidex. Maintain a healthy diet and exercise for [...] due for a right screening mammogram in May of 2019-Cheri will call you to schedule. Return in 1 year as scheduled. Nurse Navigator phone number [phone] Please remember the nurse checks voice mail messages throughout the day. However, if the Nurse taking care of the phone messages is with a patient, she may not be available to return your call until later in the day. If you need immediate assistance or there is any emergency, please call your Doctors number or go to the Emergency Room. DEXA scan due now-our Med. Secr. will call you to arrange. Cheri's-our medical assembler's number is [phone] if you have any questions. Patient Education Breast Self-Awareness Breast self-awareness means: ?? Knowing how your breasts look. ?? Knowing how your breasts feel. ?? Checking your breasts every month for changes. ?? Telling your doctor if you notice a change in your breasts. Breast self-awareness allows you to notice a breast problem early while it is still small. How to do a breast self-exam One way to learn what is normal for your breasts and to check for changes is to do a breast self-exam. To do a breast self-exam: Look for Changes 1. Take off all the clothes above your waist. 2. mail machine operator front of a mirror in a room with good lighting. 3. Put your hands on your hips. 4. Push your hands down. 5. Look at your breasts and nipples in the mirror to see if one breast or nipple looks different than the other. Check to see if: ? The shape of one breast is different. ? The size of one breast is different. ? There are wrinkles, dips, and bumps in one breast and not the other. 6. Look at each breast for changes in your skin, such as: ? Redness. ? Scaly areas. 7. Look for changes in your nipples, such as: ? Liquid around the nipples. ? Bleeding. ? Dimpling. ? Redness. ? A change in where the nipples are. Feel for Changes 1. Lie on your back on the [...] circles with your fingers. For the first confederated coos, press lightly. For the second confederated coos, press harder. For the third confederated coos, press even harder. ? Keep making circles with your fingers at the light, harder, and even harder pressures as you movedown your breast. Stop when you feel your ribs. ? Move your fingers a little toward the center of your body. ? Start making circles with your fingers again, this time going up until you reach your collarbone. ? Keep making up and down circles until you reach your armpit. Remember to keep using the three pressures. ? Feel the other breast in the same way. 3. Sit or manufacturing technologist the shower or tub. 4. With soapy water on your skin, feel each breast the same way you did in step 2, when you were lying on the floor. Write Down What You Find After doing the self-exam, write down: ?? What is normal for each breast. ?? Any changes you find in each breast. ?? When you last had your period. How [...] doctor? See your doctor if you notice: ?? A change in shape or size of your breasts or nipples. ?? A change in the skin of your breast or nipples, such as red or scaly skin. ?? Unusual fluid coming from your nipples. ?? A lump or thick area that was not there before. ?? Pain in your breasts. ?? Anything that concerns you. This information is not intended to replace advice given to you by your health care provider. Make sure you discuss any questions you have with your health care provider. Document Released: 10/28/2008 Document Revised: 10/17/2016 Document Reviewed: 03/31/2016 [employer] Interactive Patient Education ?? 2019 [employer] documented in this encounter Plan of Treatment Upcoming Encounters Date Type Department Care Team (Late st Contact Info) Description 05/24/2024 10:30 AM EST Office Visit [facility] [address] [place] [id number] Nikolas Jha, DPM [address] [place] [address] [address] [place] [phone] documented as of this encounter Goals [...] Results * DX BONE DENSITY AXIAL SKELETON (04/19/2019 11:39 AM EST) Anatomical Region Laterality Modality Dexa Scan 04/19/2019 Narrative 04/19/2019 12:39 PM EST Indication: The patient is a post-menopausal female over age 65 with clinical risk factors for an osteoporotic fracture that requires a bone density assessment. Study was performed on Vyu 5. Bone Density: Region ?BMD ? T-score ? Z- score ?? Femoral Neck (Left) ? 0.760 ?-0.8 ? 0.9 ? Total Hip (Left) ?0.943 ? 0.0 ? 1.4 ? 1/3 Radius (Left) ? 0.583 ?-1.8 ? 0.1 ? World Health Organization criteria for BMD [...] ?BMD ??T-score ?BMD Change Total Hip(Left) ? 04/19/2019 ?67 ?0.943 ? 0.0 ?-1.7% ? 05/17/2016 ?65 ?0.959 ? 0.1 ? 1/3 Forearm(Left) ? 04/19/2019 ?67 ?0.583 ?-1.8 ?-10.4%* ? 05/17/2016 ?65 ?0.651 ?-0.7 ? *Denotes significance at 95% confidence [...] is currently using the following medications: Aromatase Inhibitors Has had or currently has the following medical conditions: Breast Cancer, Back pain Patient maximum height was 66 Menopause Age: 51 Patient is postmenopause Interpretation: Bone mineral density is in the low bone density range. Medical evaluation for secondary causes of low bone mineral density may be appropriate. A minimum of two years may be required between bone density studies due to inherent testing precision limitations. Intervals between BMD testing should be determined according to each patient's clinical status: typically one year after initiation or change in therapy is appropriate, with longer intervals once therapeutic effect is established. The left hip bone mineral density is not significantly changed since last exam. Although not approved for monitoring therapy the forearm bone mineral density is significantly decreased since the last exam. The spine portion of the study is omitted due to hypertrophic change. Reported by: Alexia Verdin PA-C, [facility], CCD on 04/19/2019 12:34:00 PM. Caty Moy PA-C IMG DEXA ORDERABLES Final Res ult documented in this encounter Visit Diagnoses Diagnosis Malignant neoplasm of left breast in female, estrogen receptor positive, unspecified site of breast (HCC)- Primary Encounter for monitoring aromatase inhibitor therapy Encounter for therapeutic drug monitoring Post-menopausal Asymptomatic postmenopausal status (age-related) (natural) Post-menopausal Asymptomatic postmenopausal status (age-related) (natural) Encounter for monitoring aromatase inhibitor therapy Encounter for therapeutic drug monitoring Malignant neoplasm of left breast in female, estrogen receptor positive, unspecified site of breast (HCC) documented in this encounter Historical Medications * This list may reflect changes made after this encounter. HYDROcodone-aceta minophen (NORCO) 7.5-325 mg Oral Tablet Take 1 Tablet by mouth every 6 hours as needed for Acute Pain (R52). 03/16/2024 added in this encounter Additional Health Concerns Assessment Noted Time A fall risk assessment has been complete d for the patient 07/29/2016 10:44 AM EST documented as of this encounter Care Teams Marine Diesel Technician Relationship Specialty Start Date End Date Carlos Manuel Barragan [address] [place] [address] [address] [facility] [id number] PCP - General 07/03/10 documented as of this encounter
--- OUTSIDE RECORDS SUMMARY | 2024-05-04 22:53 | XMS_ITS | Encounter Summary ---
Author Organization [place] [address] Care Team Providers Care Can Dragger Name Role Phone Carlos Manuel Barragan Primary Care Provider [phone] Reason for Visit * Auth/Cert/Inpt Specialty Diagnoses / Procedures Referred By Contac t Referred To Contact Diagnoses Osteoarthritis of left knee, unspecified osteoarthritis type Osteoarthritis of left knee, unspecified osteoarthritis type [M17.12] Procedures ME TOTAL KNEE ARTHROPLASTY LEFT TOTAL KNEE ARTHROPLASTY Referral ID Status Reason Start Date Expiration Date Visits Re quested Visits Authorized [id number] 1 1 Encounter Details Date Type Department Care Team (Late st Contact Info) Description 09/29/2018 7:58 AM EDT - 10/02/2018 12:33 PM EDT Hospital Encounter EDG 7D ORTHO [facility] Brian Newman MD [address] [place] [address] Discharge Disposition: Home or Self Care Social [...] Sign Reading Time Taken Comments Blood Pressure 138/67 10/02/2018 7:58 AM EDT Pulse 71 10/02/2018 7:58 AM EDT Temperature 36.8 ??C (98.2 ??F) 10/02/2018 7:58 AM ED T Respiratory Rate 16 10/02/2018 7:58 AM EDT Oxygen Saturation 98% 10/02/2018 7:58 AM EDT Inhaled Oxygen Concentration - - Weight 94.3 kg (208 lb) 09/29/2018 8:23 AM EDT Height 167.6 cm (5' 6 ) 09/29/2018 8:23 AM EDT Body Mass Index 33.57 09/29/2018 8:23 AM EDT documented in this encounter Functional [...] Mitzi Jimenez APRN documented in this encounter Discharge Summaries * Bea Moya ARNP - 10/02/2018 9:[address] [facility] Discharge Summary Patient Name: Juany Alarcon : 1950 Admit Date: 09/29/2018 Discharge Date and Time: No discharge date for patient encounter. Attending Physician at Discharge: Brian Newman MD Admitting Physician: Brian Newman MD Discharge Physician: MD Trent Admission Diagnoses: Osteoarthritis of left knee, unspecified osteoarthritis type [M17.12] OA (osteoarthritis) of knee [M17.10] Discharge Diagnoses: Osteoarthritis of left knee, unspecified osteoarthritis type [M17.12] OA (osteoarthritis) of knee [M17.10] Admission Condition: Good Discharged Condition: Good Indication for Admission: S/P TKA, PT Hospital Course: Uneventful Consults: IM for medical management Treatments: PT Discharge Exam: Incision Clean and Dry 2/4 Pulses Brisk Cap Refill - Homans Calf Supple + AROM DF/PF Disposition: Home with HHPT Patient Instructions: Juany Alarcon Home Medication Instructions LOW:[id number] Printed on:10/02/18 0903 Medication Information anastrozole (ARIMIDEX) 1 mg Oral Tablet Take 1 Tab by mouth daily. apixaban (ELIQUIS) 2.5 mg Oral Tablet Take 1 Tab by mouth 2 times daily for 19 doses. aspirin 81 mg tablet Take 81 mg by mouth daily. bisoprolol-hydrochlorothiazide (ZIAC) 5-6.25 mg per tablet Take 1 Tab by mouth daily. Cholecalciferol, Vitamin D3, 2,000 unit Oral Capsule Take by mouth daily. montelukast (SINGULAIR) 10 mg Oral Tablet Take 10 mg by mouth every evening. oxyCODONE (ROXICODONE) 5 mg Oral Tablet Take 1-2 Tabs by mouth every 4 hours as needed for Acute Pain (R52). potassium chloride SA (K-DUR;KLOR-CON) 20 mEq Oral Tab Sust.Rel. Particle/Crystal Take 20 mEq by mouth daily. rosuvastatin (CRESTOR) 10 mg Oral Tablet Take 10 mg by mouth daily. Activity: As Tolerated Diet: Regular PreOp Wound Care: Keep Incision Clean and Dry Follow-up with POD #10 Signed: MULUGETA Carey 10/02/2018 9:03 AM Cosigned by Brian Newman MD at 10/02/2018 10:37 AM EDT documented in this encounter Discharge Instructions * Discharge Instructions* Arpita Mora RN - 10/02/2018 10:53 AM EDT Take scope patch off 10/02 Dear Patient, The staff of at [facility] sincerely hopes that your hospital stay was pleasant. We try to ensure that our patients are cared for in the most respectful and comfortable way. The staff members of pride themselves on delivering kind and compassionate care to each and every patient. Working collaboratively with physicians, social workers, outpatient case manager, and the discharge team, we attempt to anticipate your needs, in preparation for discharge. This discharge information includes the answers to many frequently asked questions that you may have. It is our goal that you have information that is necessary to safely care for yourself at home. With this goal in mind, we have included information on any new medications that may have been started while you were in the hospital, including the name, dosages and side effects that you may experience. If you have any questions about current medications prior to discharge, please ask your nurse for further explanation. Thank you for choosing [facility]. We hope that you have had a good experience. Sincerely, The Staff of SIGNS AND SYMPTOMS OF INFECTION A wound infection happens when a type of germ ( bacteria) starts growing in the wound. In some cases, this can cause the wound to break open. If cared for properly, the infected wound will heal from the inside to the outside. Wound infections need treatment. CAUSES An infection is caused by bacteria growing in the wound. SEEK MEDICAL CARE IF: You have an increase in swelling, pain, or redness around the wound. You have an increase in the amount of drainage coming from the wound. There is a bad smell coming from the wound. More of the wound breaks open. You have a fever over 101 degrees. DRESSINGS Your surgeon has chosen the appropriate wound closure following your surgery. Please choose the correct instructions below (Dermabond Prineo or Ross) that coincide with your wound dressing. ?? ROSS The dressing that you leave the hospital in is waterproof, therefore, you may shower with the dressing in place. Avoid baths, swimming pools and hot tubs until directed by your surgeon. When showering, allow water to run over the incision and pat it dry. Should the dressing get water inside, remove it immediately. The dressing should be removed 4 to 5 days after discharge and the incision may be left open to air. If the incision is draining, cover with gauze and change daily and as needed until drainage stops. Do not apply any creams, lotions, powders, or medications to your incision. This may interfere withyour normal healing process. Wash your hands frequently with soap and water and before and after contact with the wound site. If you have any questions or concerns, please contact your physician's office. Gel Wrap When you are ready to go home: Be sure to take your SMI cold therapy wrap and gel bags with you for continued comfort and use throughout your rehabilitation. If you don' already have them, ask your nurse or aide to retrieve your SMI gel bags from the patient freezer. Home use precautions: Always follow your physician or caregiver's specific application instructions upon discharge. Your SMI cold therapy wrap and gel bags are designed to last for months following your surgery. Cold therapy instructions: Once frozen, slide gel bags into the gel pouch and secure your wrap to the affected area with the straps. NEVER place frozen gel bags directly onto skin, as this may cause frostbite injury. An additional protective barrier such as a washcloth, hand-towel or pillow-case may be necessary during prolonged treatment applications. Heat therapy instructions: Always follow your physician or caregiver's specific application instructions for heat therapy. Gelbags should be heated in a microwave one at a time. Heat each gel bag for one minute. If needed, add heat in additional 20-second intervals until desired temperature is achieved. USE EXTREME CAUTION! DO NOT OVERHEAT GEL BAG IN THE MICROWAVE THIS MAY CAUSE A SEVERE BURN. The gel pouch and wrap are both latex-free and the gel bag ingredients are non- toxic. If for some reason, the gel bag is punctured, dispose of it and re-order additional gel bags. SMI Wrap care instructions: The SMI cold therapy wrap can be hand washed and air dried. Additional SMI body specific wraps can be re-ordered from [employer] or call [phone]. [facility] re-order information: Visit our Patient Retail Store at [email or web address] Telephone orders: If Prescribed: Jose Hose/Compression Stockings Jose hose/compression stockings are used to aid in circulation and prevent blood clots in post-operative and bed-ridden patients. To Apply: When applying stockings, it is best to do so first thing in the morning after resting with the legselevated. This will be the time legs are the least swollen making application a little easier. Gather the stockings down to the toe in your hands. Stretch the stocking over the toe, pulling it over the heel. Once the stocking is over the heel, gently grasp the stocking and pull it up the rest of the leg. Smooth out all wrinkles and do not allow the stocking to roll down the leg causing constriction or skin breakdown. To Remove: Gather the stocking at the ankle and slide the stocking over the heel. Slip off the foot. Maintenance: You MUST remove the stockings daily to bathe feet and legs and inspect the skin for breakdown. Report any signs of skin breakdown to your physician. Observe the lower extremity for circulatory function. Report any abnormalities in color, temperature, or pulses to your physician. Launder the stockings by hand with a mild detergent every couple of days overnight and lay them flat to dry. Reapply the stockings the next morning. Wear nonskid shoes or slippers when ambulating to reduce the risk of falls. You should wear your Jose Stockings for up to one month or until your surgeon discontinues them. DEEP VEIN THROMBOSIS (DVT) WHAT IS A DVT? Deep vein thrombosis, or DVT is a blood clot that forms in a vein deep in the body, usually in the lower leg or thigh but can occur elsewhere in the body. WHO IS AT RISK? Those with any of the following: a history of DVT, certain blood disorders, injury to a deep vein from surgery/broken bone/trauma, slowed blood flow due to decreased activity/movement, and the 1st 6 weeks after giving , recent or ongoing cancer treatment, a central venous catheter, age greater than 60, and overweight/obesity. SIGNS AND SYMPTOMS OF DVT ARE: Swelling of the leg or affected extremity, pain or tenderness in theleg, sometimes more prominent when standing or walking, increased warmth in the area of the leg that???s swollen or painful, and red or discolored skin on the leg or affected extremity. If untreated, a DVT can progress to a PE or pulmonary embolism, a serious condition where the bloodclot travels to the lungs causing serious injury to the lungs and other organs in the body. CALL YOUR PHYSICIAN IMMEDIATELY IF YOU EXPERIENCE: Unexplained shortness of breath, pain with deep breathing, coughing up blood, rapid breathing and fast heart rate. Reference: ???Deep Vein Thrombosis?? , U.S. Department of Health and Human Services, national [place] of Health, National Heart Lungs and Blood [place], Obtained on 05/04/2007 from http: www.nihlb i.nih.gov/health/dci/Diseases/Dvt/DVT_All.html USE OF A WALKER Do not pull on the walker to stand; this could cause you to fall backwards. When coming to a standing position, push up from the chair or bed then reach for the walker. When walking, move the walker first, then the affected leg and finally the stronger one. When sitting, reach back for the chair or bed and let yourself down slowly. When turning corners or turning around, take actual steps to do so. Do not pivot on one foot. Always wear sturdy, well-fitting shoes. Be very careful walking on uneven surfaces, or where the surface is wet, icy, oily or just waxed. Remove throw rugs and be aware of loose carpets. Watch out for dogs, cats, small children and theirtoys. Do not increase your weight bearing until the doctor tells you to do so. USE OF CRUTCHES When coming to a standing position, place both crutches in one hand and use the other hand to push up from the chair. After getting your balance, place one crutch under each arm. When walking with crutches, all weight should be on the hands. At no time should the weight be under the arms. When turning or backing up with crutches, the crutches should stay in front of the body. Be very careful walking on uneven surfaces, or where the surface is wet, icy, oily or just waxed. Always wear sturdy, well-fitting shoes. Remove throw rugs and be aware of loose carpets. Watch out for dogs, cats, children and their toys. When going up stairs, the stronger leg should go up first. When coming down stairs, crutches and the weaker leg should go first. Do not increase your weight bearing until the doctor tells you to do so. NUTRITIONAL SUPPLEMENT Continue taking the oral supplement for one month after discharge to assist with nutritional statusand healing. Because you are given a prescription and a coupon, you will need to picker operator your supplement at your pharmacy counter. CONSTIPATION Hard-formed stool or difficult passage of bowel movement is known as constipation. The common causes of constipation are too little fiber in the diet, inactivity, too little fluid, and/or some medications (especially medications for pain). Watch for signs of constipation such as decreased appetite, firmness or distention of the stomach, hard formed stool and straining or pain with bowel movement. There are several things you can do not only to control it, but also to prevent constipation: 1. Try to slowly increase the amount of fiber in your diet. Look for breads with ???bran?? on the label, or whole cereals such as Fiber One, Bran Buds, Bran Checks, or Raisin Bran. Choose brown riceinstead of white rice. Eat dried beans, peas and lentils. Choose raw fruits and vegetables. Eat apples and pears with skin on, raisins, prunes, raspberries, and strawberries for higher fiber choices.Remember the fiber goal is 25-35 grams per day. 2. Drink plenty of liquids (6-8 cups) per day. 3. Be as active as possible. 4. Always respond to the urge to have a bowel movement. 5. After checking with your doctor, the use of Metamucil or other fiber supplements may help. 6. Try to have a bowel movement at the same time every day, preferable 15 to 45 minutes after breakfast. (Remember not to strain). You do not need to have a daily bowel movement. 7. Use over the counter laxatives with caution after trying other methods of relieving constipation. 8. If constipation continues despite the above instructions or you have any blood in your stool, contact your doctor. Reference: [facility] - Tools for Healthier Lives ? Higher Fiber Foods? . [employer] HOME SAFETY GUIDELINES Medications ??? Discard outdated or unused prescription medications ??? Take medications only as prescribed ??? Call for refills of medication on or Friday as pain medication is not refilled on the weekend ??? DO NOT take any anti-inflammatory medications while on blood thinners unless specifically ordered by your physician Ice ??? Apply ice to your extremity several times throughout the day. ??? Alternate with the ice on for 20 - 30 minutes then off for 20 - 30 minutes. ??? Always lay a thin towel or clot between the ice and your skin. ??? Apply ice and lay flat with your leg elevated on three pillows 3-5 times per day for about 30 minutes. Floors/Room Arrangement ??? Secure floor coverings ??? Remove throw rugs ??? Avoid clutter ??? Remove cords from pathways ??? Use non-skid shoes and house slippers ??? Clean spills promptly ??? Arrange furniture in room for easy navigation ??? Easy access to all necessary living areas (kitchen, bathroom, living room) Stairs ??? Well lighted ??? Hand rails, if needed ??? Avoid clutter and storage of articles on stairs Electricity ??? Cords not frayed ??? Outlets not overloaded ??? Appliances away from water Kitchen ??? Needed items within reach ??? Consider use of microwave for convenience and safety ??? Fire extinguisher Bathroom ??? Elevated toilet seat ??? Tub/toilet handrails ??? Hand-held shower-head with shower seat ??? Are doors wide enough to accommodate walker or wheelchair? Miscellaneous ??? List of emergency names/numbers ??? Consider use of portable phone with preprogrammed numbers ??? No smoking in bed or with oxygen use ??? Smoke Detectors ??? Exit procedure in case of fire ??? Consider Lifeline Alert System ??? Consider use of night lights ??? Avoid uneven ground/pavement when walking outdoors ??? Carbon-monoxide detector to protect sleeping areas Reference: Centers for Disease Control and Prevention www.cdc.gov ADD: Home Safety [place] www.Homesafetycouncil.org MISCELLANEOUS Activity as tolerated as instructed by Physical Therapy. Crutches/ Walker for home use. Monitor incision/dressing for signs and symptoms of infection which include; increased warmth, redness, and/or drainage, foul odor or temp over 101 degrees. Follow up in physicians office as instructed, anticipate ross to be removed at follow up visit. Follow up at discharge with Physical Therapy as instructed. Patient must call and make their outpatient appointment at their convenience. Do not drive for six (6) weeks or until you have permission by your physician. PRE-PROCEDURE ANTIBIOTICS Following a total joint replacement, you must be pre-medicated with an antibiotic prior to certain procedures. Please let your physician know that you have a total joint prosthesis so they can prescribe the antibiotic. These procedures include but are not limited to: Any dental procedure Gynecological surgery Any type of infection Ingrown toenails Prostate or bladder surgery Genitourinary tract examinations Dermatology procedures Gastrointestinal procedures (EDG or Colonoscopy) Call [phone] ([facility]) for any questions or concerns. Also feel free to use the After Hours clinic at: [facility] After Hours [facility] [address] [place] [address] Friday-Friday 9:00 am to 9:00 pm Friday 9:00 am to 1:00 pm NO APPOINTMENT NECESSARY Be sure to attend your scheduled follow up appointment with the orthopedic surgeon. This appointment should have been made prior to surgery. Pain Assessment: Location: leg Type: surgical (Instructed) Current pain management regimen (Instructed) IF PAIN INTENSIFIES OR PAIN IS UNRELIEVED WITH MEDICATIONS ORDERED, CALL YOUR DOCTOR DO NOT take anti-inflammatory medications while on a blood thinner. Oxycodone tablets or capsules What is this medicine? OXYCODONE (ox i KOE done) is a pain reliever. It is used to treat moderate to severe pain. This medicine may be used for other purposes; ask your health care provider or pharmacist if you have questions. What should I tell my health care provider before I take this medicine? They need to know if you have any of these conditions: -[place]'s disease -brain tumor -drug abuse or addiction -head injury -heart disease -if you frequently drink alcohol containing drinks -kidney disease or problems going to the bathroom -liver disease -lung disease, asthma, or breathing problems -mental problems -an unusual or allergic reaction to oxycodone, codeine, hydrocodone, morphine, other medicines, foods, dyes, or preservatives - or trying to get -breast-feeding How should I use this medicine? Take this medicine by mouth with a glass of water. Follow the directions on the prescription label.You can take it with or without food. If it upsets your stomach, take it with food. Take your medicine at regular intervals. Do not take it more often than directed. Do not stop taking except on yourdoctor's advice. Some brands of this medicine, like Oxecta, have special instructions. Ask your doctor or pharmacistif these directions are for you: Do not cut, crush or chew this medicine. Swallow only one tablet at a time. Do not wet, soak, or lick the tablet before you take it. Talk to your professional driver regarding the use of this medicine in children. Special care may be needed. Overdosage: If you think you have taken too much of this medicine contact a poison control center or emergency room at once. NOTE: This medicine is only for you. Do not share this medicine with others. What if I miss a dose? If you miss a dose, take it as soon as you can. If it is almost time for your next dose, take only that dose. Do not take double or extra doses. What may interact with this medicine? -alcohol -antihistamines -certain medicines used for nausea like chlorpromazine, droperidol -erythromycin -ketoconazole -medicines for depression, anxiety, or psychotic disturbances -medicines for sleep -muscle relaxants -naloxone -naltrexone -narcotic medicines (opiates) for pain -nilotinib -phenobarbital -phenytoin -rifampin -ritonavir -voriconazole This list may not describe all possible interactions. Give your health care provider a list of all the medicines, herbs, non-prescription drugs, or dietary supplements you use. Also tell them if you smoke, drink alcohol, or use illegal drugs. Some items may interact with your medicine. What should I watch for while using this medicine? Tell your doctor or health career consultant if your pain does not go away, if it gets worse, or ifyou have new or a different type of pain. You may develop tolerance to the medicine. Tolerance means that you will need a higher dose of the medicine for pain relief. Tolerance is normal and is expected if you take this medicine for a long time. Do not suddenly stop taking your medicine because you may develop a severe reaction. Your body becomes used to the medicine. This does NOT mean you are addicted. Addiction is a behavior related to getting and using a drug for a non- medical reason. If you have pain, you have a medical reason to takepain medicine. Your doctor will tell you how much medicine to take. If your doctor wants you to stop the medicine, the dose will be slowly lowered over time to avoid any side effects. You may get drowsy or dizzy when you first start taking this medicine or change doses. Do not drive, use machinery, or do anything that may be dangerous until you know how the medicine affects you. Stand or sit up slowly. There are different types of narcotic medicines (opiates) for pain. If you take more than one type at the same time, you may have more side effects. Give your health care provider a list of all medicines you use. Your doctor will tell you how much medicine to take. Do not take more medicine than directed. Call emergency for help if you have problems breathing. This medicine will cause constipation. Try to have a bowel movement at least every 2 to 3 days. If you do not have a bowel movement for 3 days, call your doctor or health career consultant. Your mouth may get dry. Drinking water, chewing sugarless gum, or sucking on hard candy may help. See your dentist every 6 months. What side effects may I notice from receiving this medicine? Side effects that you should report to your doctor or health career consultant as soon as possible: -allergic reactions like skin rash, itching or hives, swelling of the face, lips, or tongue -breathing problems -confusion -feeling faint or lightheaded, falls -trouble passing urine or change in the amount of urine -unusually weak or tired Side effects that usually do not require medical attention (report to your doctor or health career consultant if they continue or are bothersome): -constipation -dry mouth -itching -nausea, vomiting -upset stomach This list may not describe all possible side effects. Call your doctor for medical advice about side effects. You may report side effects to FDA at 9-395-TIX-9233. Where should I keep my medicine? Keep out of the reach of children. This medicine can be abused. Keep your medicine in a safe place to protect it from theft. Do not share this medicine with anyone. Selling or giving away this medicine is dangerous and against the law. Store at room temperature between 15 and 30 degrees C (59 and 86 degrees F). Protect from light. Keep container tightly closed. Discard unused medicine and used packaging carefully. Pets and children can be harmed if they find used or lost packages. Flush any unused medicines down the toilet. Do not use the medicine after theexpiration date. NOTE: This sheet is a summary. It may not cover all possible information. If you have questions about this medicine, talk to your doctor, pharmacist, or health care provider. ?? 2013, Elsevier/Gold Standard. (04/09/2012 8:33:37 AM) Apixaban oral tablets What is this medicine? APIXABAN (a PIX a ban) is an anticoagulant (blood thinner). It is used to lower the chance of stroke in people with a medical condition called atrial fibrillation. It is also used to treat or preventblood clots in the lungs or in the veins. This medicine may be used for other purposes; ask your health care provider or pharmacist if you have questions. COMMON BRAND NAME(S): Katie What should I tell my health care provider before I take this medicine? They need to know if you have any of these conditions: -bleeding disorders -bleeding in the brain -blood in your stools (black or tarry stools) or if you have blood in your vomit -history of stomach bleeding -kidney disease -liver disease -mechanical heart valve -an unusual or allergic reaction to apixaban, other medicines, foods, dyes, or preservatives - or trying to get -breast-feeding How should I use this medicine? Take this medicine by mouth with a glass of water. Follow the directions on the prescription label.You can take it with or without food. If it upsets your stomach, take it with food. Take your medicine at regular intervals. Do not take it more often than directed. Do not stop taking except on yourdoctor's advice. Stopping this medicine may increase your risk of a blood clot. Be sure to refill your prescription before you run out of medicine. Talk to your professional driver regarding the use of this medicine in children. Special care may be needed. Overdosage: If you think you have taken too much of this medicine contact a poison control center or emergency room at once. NOTE: This medicine is only for you. Do not share this medicine with others. What if I miss a dose? If you miss a dose, take it as soon as you can. If it is almost time for your next dose, take only that dose. Do not take double or extra doses. What may interact with this medicine? This medicine may interact with the following: -aspirin and aspirin-like medicines -certain medicines for fungal infections like ketoconazole and itraconazole -certain medicines for seizures like carbamazepine and phenytoin -certain medicines that treat or prevent blood clots like warfarin, enoxaparin, and dalteparin -clarithromycin -NSAIDs, medicines for pain and inflammation, like ibuprofen or naproxen -rifampin -ritonavir -Braulio's wort This list may not describe all possible interactions. Give your health care provider a list of all the medicines, herbs, non-prescription drugs, or dietary supplements you use. Also tell them if you smoke, drink alcohol, or use illegal drugs. Some items may interact with your medicine. What should I watch for while using this medicine? Visit your healthcare professional for regular checks on your progress. You may need blood work done while you are taking this medicine. Your condition will be monitored carefully while you are receiving this medicine. It is important not to miss any appointments. Avoid sports and activities that might cause injury while you are using this medicine. Severe fallsor injuries can cause unseen bleeding. Be careful when using sharp tools or knives. Consider using an electric razor. Take special care brushing or flossing your teeth. Report any injuries, bruising,or red spots on the skin to your healthcare professional. If you are going to need surgery or other procedure, tell your healthcare professional that you aretaking this medicine. Wear a medical ID bracelet or chain. Carry a card that describes your disease and details of your medicine and dosage times. What side effects may I notice from receiving this medicine? Side effects that you should report to your doctor or health career consultant as soon as possible: -allergic reactions like skin rash, itching or hives, swelling of the face, lips, or tongue -signs and symptoms of bleeding such as bloody or black, tarry stools; red or dark-brown urine; spitting up blood or brown material that looks like coffee grounds; red spots on the skin; unusual bruising or bleeding from the eye, gums, or nose -signs and symptoms of a blood clot such as chest pain; shortness of breath; pain, swelling, or warmth in the leg -signs and symptoms of a stroke such as changes in vision; confusion; trouble speaking or understanding; severe headaches; sudden numbness or weakness of the face, arm or leg; trouble walking; dizziness; loss of coordination This list may not describe all possible side effects. Call your doctor for medical advice about side effects. You may report side effects to FDA at 3-267-LUR-1214. Where should I keep my medicine? Keep out of the reach of children. Store at room temperature between 20 and 25 degrees C (68 and 77 degrees F). Throw away any unused medicine after the expiration date. NOTE: This sheet is a summary. It may not cover all possible information. If you have questions about this medicine, talk to your doctor, pharmacist, or health care provider. ?? 2019 Elsevier/Gold Standard (2018-05-07 11:20:07) documented in this encounter Medications at Time [...] mouth daily. documented as of this encounter Ordered Prescriptions Prescription Sig Dispense Quantity Refills Last Filled Start Date End Date apixaban (ELIQUIS) 2.5 mg Oral Tablet Take 1 Tab by mouth 2 times daily for 10 days. 20 Tab 10/01/2018 03/16/2024 oxyCODONE (ROXICODONE) 5 mg Oral Tablet Take 1-2 Tabs by mouth every 4-6 hours as needed 30 Tab 10/02/2018 03/16/2024 documented in this encounter Discharge Disposition Disposition Code Departure Means Destination Home or Self Long Term documented in this encounter Progress Notes * Stephania Fontana CPhT - 10/02/2018 10:34 AM EDT Discharge Medication Delivery Service DMD community planning technician has Juany Alarcon's prescriptions for the following discharge medications: ?? Oxycodone 5 mg ?? Tramadol 50 mg These prescriptions are currently being filled in our outpatient pharmacy and will be delivered to the patient prior to discharge. Please contact DMD community planning technician with any questions. Thanks! Stephania Fontana, DMD Quilt Sewer Discharge Medication Delivery Service Juany Alarcon has been disenrolled from the DMD program. Prescriptions for the following discharge medications have been returned to patient's chart: ?? Oxycodone 5 mg ?? Tramadol 50 mg Please contact DMD community planning technician with any questions. Thanks! Stephania Fontana DMD Quilt Sewer * Bri Crockett, JEWELRY MECHANIC - 10/02/2018 9:46 AM EDT 10/02/18 0829 PT Subjective Note Type Treatment/Progress PT Subjective Comments #1 1733 PT Subjective Comments #2 pt agrees to PT in [facility] Discharge Information This progress note will serve as the discharge summary if no further therapy is provided prior to the patient being discharged from the hospital. Pain Screening PT/OT Patient Currently in Pain Yes Pain Rating 5 Pain Location Knee Pain Orientation Left Pain Intervention(s) Cold applied;Repositioned;Ambulation/Increased activity;Medication (see eMar) Additional Comments pt reportes 10/10 pain with ambulation Cognition Orientation Intact Precautions Therapy Precautions Yes Weight Bearing Status Left lower extremity;Weight bearing as tolerated Precaution info given Weight bearing;To use call light to request assistance with all mobility Observation Additional Comments pt transported to [facility] via w/c Transfers Sit to Stand Stand by assist;With verbal cues Stand to Sit Stand by assist;With verbal cues Additional Comments verbal cues for proper hand placement sit<>stand Gait Gait Stand by assist;With verbal cues Gait Distance (Feet) 100 Feet Assistive Device 2 Wheel walker Pattern Slow jerome;Decreased stance time L Weight Bearing Status Weight bearing as tolerated AM PAC: How much help from another person does the patient currently need... turning from your back to your side while in a flat bed without using bedrails? 3 moving from lying on your back to sitting on the side of a flat bed without using bedrails? 3 moving to and from a bed to a chair? 3 standing up from a chair using your arms (e.g. wheelchair, or bedside chair)? 4 need to walk in hospital room? 3 climbing 3-5 steps with a railing? 3 AM PAC: BASIC MOBILITY SCORING AM PAC Moblity Raw Score 19 AM PAC Mobility CMS 0-100% Functional Percentage 36.99 AM PAC Mobility CMS G Code Modifier CJ Balance Sitting Balance 4/5 moves/returns trunkal midpoint 1-2 inches in multiple planes Standing Balance 2/5 indep, requires both UE support Exercise Exercise Yes Additional Comments nustep x10'; shuttle x5'; therex per TKA Guidelines assistance given as needed;written HEP given to patient Education Education Safety with mobility;Cues for proper technique;Up with assistance only;Safe and proper technique with gait pattern;Safe and proper technique with transfers;Written Home Exercise Program;To use call light to request assistance with all mobility Patient Safety Patient Safety (pt transported back to room via w/c) AROM LLE (degrees) L Knee Flexion 0-140 ~70 seated L Knee Extension 0-130 ~10 seated Assessment Assessment Decreased gait;Decreased functional mobility;Decreased balance;Decreased activity tolerance Prognosis Good;With continued PT s/p acute discharge Progress Improving as expected;Progressing toward goals Additional Comments pt is safe for discharge from a mobility standpoint Goals Pt Will Go Supine To Sit With contact guard assistance;Not met Pt will perform Sit to Stand With contact guard assistance;With stand by assist;Met Pt Will Ambulate With 2 wheel walker;101-150 feet;With contact guard assistance;Met Pt Will Increase ROM By 10 degrees;Not met Plan Treatment/Interventions Continue with current plan of care PT Frequency BID Recommendation PT Recommendation Home PT;Outpatient PT Time In / Time Out 8921-9206 IP PT Evaluation Minutes 0 IP PT Treatment Minutes 40 The total time spent caring for this patient included but was not limited to medical record review;hands-on treatment;communication and education with patient and/or family/caregiver;physician contact in the presence of the patient;assessment of the patient's progress since the last session;clinical judgement necessary for treatment planning for next session;communication with nursing and/or carecoordination/social work regarding patient status and discharge planning * Brian Newman MD - 10/02/2018 7:44 AM EDT Ortho- POD# 3 VS: BP 179/77 (Patient Position: Semi Fowlers) Pulse 77 Temp 99 ??F (37.2 ??C) (Oral) Resp 16 Ht 5' 6 (1.676 m) Wt 208 lb (94.3 kg) SpO2 99% ? No BMI 33.57 kg/m?? WBC/Hgb/Hct/Plts: --/10.0/30.7/-- (10/03 611) Extremity: Wound looks great CD&I DP/PT Intact Foot Warm Neuro Intact Calves Non Tender negative Homans Bilaterally Abd: Soft Non Tender Taking Good PO : Voiding A/P Home today * Bri Crockett PTA - 10/01/2018 3:55 PM EDT 10/01/18 1330 PT Subjective Note Type Treatment/Progress Patient Room/Unit 7405 PT Subjective Comments #1 pt agrees to PT in [facility] Discharge Information This progress note will serve as the discharge summary if no further therapy is provided prior to the patient being discharged from the hospital. Pain Screening PT/OT Patient Currently in Pain Yes Pain Rating 8 Pain Location Knee Pain Orientation Left Pain Intervention(s) Cold applied;Repositioned;Ambulation/Increased activity;Medication (see eMar) Cognition Orientation Intact Precautions Therapy Precautions Yes Weight Bearing Status Left lower extremity Precaution info given Weight bearing;To use call light to request assistance with all mobility Observation Additional Comments pt transported to [facility] via w/c Transfers Sit to Stand Stand by assist;With verbal cues Stand to Sit Stand by assist;With verbal cues Gait Gait Stand by assist;With verbal cues Gait Distance (Feet) 60 Feet Assistive Device 2 Wheel walker Pattern Antalgic;Slow jerome;Step to Weight Bearing Status Weight bearing as tolerated AM PAC: How much help from another person does the patient currently need... turning from your back to your side while in a flat bed without using bedrails? 3 moving from lying on your back to sitting on the side of a flat bed without using bedrails? 3 moving to and from a bed to a chair? 3 standing up from a chair using your arms (e.g. wheelchair, or bedside chair)? 3 need to walk in hospital room? 3 climbing 3-5 steps with a railing? 3 AM PAC: BASIC MOBILITY SCORING AM PAC Moblity Raw Score 18 AM PAC Mobility CMS 0-100% Functional Percentage 40.47 AM PAC Mobility CMS G Code Modifier CK Balance Sitting Balance 4/5 moves/returns trunkal midpoint 1-2 inches in multiple planes Standing Balance 2/5 indep, requires both UE support Exercise Exercise Yes Additional Comments nustep x10'; shuttle x5'; therex per TKA Guidelines assistance given as needed Education Education Safety with mobility;Cues for proper technique;Up with assistance only;Safe and proper technique with transfers;Safe and proper technique with gait pattern Patient Safety Patient Safety (pt transported back to room via w/c) Assessment Assessment Decreased functional mobility;Decreased gait;Decreased balance;Decreased activity tolerance Prognosis Good;With continued PT s/p acute discharge Progress Improving as expected;Progressing toward goals Rationale for Skilled Therapy Fall Risk;Balance Deficits;Not safe with independent transfers;Not safe ambulating independently Additional Comments pain slightly improved this afternoon. Goals Pt Will Go Supine To Sit With contact guard assistance;Not met Pt will perform Sit to Stand With contact guard assistance;With stand by assist;Met Pt Will Ambulate With 2 wheel walker;101-150 feet;With contact guard assistance;Met Pt Will Increase ROM By 10 degrees;Not met Plan Treatment/Interventions Continue with current plan of care PT Frequency BID Recommendation PT Recommendation Home PT;Outpatient PT Time In / Time Out [id number] IP PT Evaluation Minutes 0 IP PT Treatment Minutes 38 The total time spent caring for this patient included but was not limited to medical record review;hands-on treatment;communication and education with patient and/or family/caregiver;physician contact in the presence of the patient;assessment of the patient's progress since the last session;clinical judgement necessary for treatment planning for next session;communication with nursing and/or carecoordination/social work regarding patient status and discharge planning * Kiersten Richardson RN - 10/01/2018 11:11 AM EDT 10/01/18 1107 Assessment Complete Actual Discharge Plan 10/01/18: CC: FINAL NOTE: chart reviewed. plan for discharge home on FRIDAY. ptfrom home with spouse, independent prior to admission. pt has 2 wheeled walker for home use. no hhcpta. pt has prescription coverage and uses [facility]. pcp dr. barragan. plan for home with OPPT, dr. newman notified of pt's request for oppt instead of home health. no other needs identified. cc will SIGN OFF. Assign Video Yes Completed by CC/SW Yes Care Coordination Assessment Assessed Medical Record review, patient/family unavailable Follow-up Visit Follow-up Needed? Complete * Bri Crockett, JEWELRY MECHANIC - 10/01/2018 9:58 AM EDT 10/01/18 0845 PT Subjective Note Type Treatment/Progress PT Subjective Comments #1 7405 PT Subjective Comments #2 pt agrees to PT in [facility] Discharge Information This progress note will serve as the discharge summary if no further therapy is provided prior to the patient being discharged from the hospital. Pain Screening PT/OT Patient Currently in Pain Yes Pain Rating 10 Pain Location Knee Pain Orientation Left Pain Intervention(s) Cold applied;Repositioned;Ambulation/Increased activity;Medication (see eMar) Cognition Orientation Intact Precautions Therapy Precautions Yes Weight Bearing Status Left lower extremity;Weight bearing as tolerated Precaution info given Weight bearing;To use call light to request assistance with all mobility Observation Additional Comments pt transported to [facility] via w/c Transfers Sit to Stand Stand by assist;With verbal cues Stand to Sit Stand by assist;With verbal cues Additional Comments verbal cues for proper hand placement sit<>stand Gait Gait Stand by assist;Contact guard assist;With verbal cues Gait Distance (Feet) 60 Feet Assistive Device 2 Wheel walker Pattern Antalgic;Slow jerome;Step to Weight Bearing Status Weight bearing as tolerated AM PAC: How much help from another person does the patient currently need... turning from your back to your side while in a flat bed without using bedrails? 3 moving from lying on your back to sitting on the side of a flat bed without using bedrails? 3 moving to and from a bed to a chair? 3 standing up from a chair using your arms (e.g. wheelchair, or bedside chair)? 3 need to walk in hospital room? 3 climbing 3-5 steps with a railing? 3 AM PAC: BASIC MOBILITY SCORING AM PAC Moblity Raw Score 18 AM PAC Mobility CMS 0-100% Functional Percentage 40.47 AM PAC Mobility CMS G Code Modifier CK Balance Sitting Balance 4/5 moves/returns trunkal midpoint 1-2 inches in multiple planes Standing Balance 2/5 indep, requires both UE support Exercise Exercise Yes Additional Comments nustep x10'; shuttle x5'; therex per TKA Guidelines assistance given as needed Education Education Safety with mobility;Cues for proper technique;Up with assistance only;Safe and proper technique with transfers;Safe and proper technique with gait pattern;To use call light to request assistance with all mobility Patient Safety Patient Safety (pt transported back to room via w/c) AROM LLE (degrees) L Knee Flexion 0-140 ~70 seated L Knee Extension 0-130 ~10 seated Assessment Assessment Decreased gait;Decreased functional mobility;Decreased balance;Decreased activity tolerance Prognosis Good;With continued PT s/p acute discharge Progress Progressing toward goals Rationale for Skilled Therapy Fall Risk;Balance Deficits;Not safe with independent transfers;Not safe ambulating independently Additional Comments pt with increased pain which is limiting progress Goals Pt Will Go Supine To Sit With contact guard assistance;Not met Pt will perform Sit to Stand With contact guard assistance;With stand by assist;Met Pt Will Ambulate With 2 wheel walker;101-150 feet;With contact guard assistance;Met Pt Will Increase ROM By 10 degrees;Not met Plan Treatment/Interventions Continue with current plan of care PT Frequency BID Recommendation PT Recommendation Home PT;Outpatient PT Time In / Time Out 0635-1487 IP PT Evaluation Minutes 0 IP PT Treatment Minutes 38 The total time spent caring for this patient included but was not limited to medical record review;hands-on treatment;communication and education with patient and/or family/caregiver;physician contact in the presence of the patient;assessment of the patient's progress since the last session;clinical judgement necessary for treatment planning for next session;communication with nursing and/or carecoordination/social work regarding patient status and discharge planning * Brian Newman MD - 10/01/2018 8:28 AM EDT Ortho- POD# 2 VS: BP 147/62 (BP Location: Right arm, Patient Position: Semi Fowlers) Pulse 71 Temp 97.9 ??F (36.6 ??C) (Oral) Resp 16 Ht 5' 6 (1.676 m) Wt 208 lb (94.3 kg) SpO2 97% ? No BMI 33.57 kg/m?? WBC/Hgb/Hct/Plts: --/10.4/33.0/-- (10/01 630) Extremity: Wound benign CD&I DP/PT Intact Foot Warm Neuro Intact Calves Non Tender negative Homans Bilaterally Abd: Soft Non Tender Taking Good PO : Voiding A/P Home tomrrow * Stephania Weinberg MD - 10/01/2018 7:47 AM EDT Images from the original note were not included. PROGRESS NOTE Assessment/Plan: POD #2 s/p left TKR ??-stable per ortho HTN ??-cont current mgmt Hyperlipids ?? Hx of breast CA ?? K supplementation ??-k ok Dispo: Per Ortho Active Hospital Problems Diagnosis ??? *Essential hypertension ??? Hypokalemia ??? Osteoarthritis of left knee Subjective: Doing fine, says she is ready to go home Objective: BP 147/62 (BP Location: Right arm, Patient Position: Semi Fowlers) Pulse 71 Temp 97.9 ??F (36.6??C) (Oral) Resp 16 Ht 5' 6 (1.676 m) Wt 208 lb (94.3 kg) SpO2 97% ? No BMI 33.57 kg/m?? I/O last 3 completed shifts: In: 840 [P.O.:840] Out: - Weight: 208 lb (94.3 kg) Constitutional: Alert and oriented to person, place, and time. No distress. Cardiovascular: Normal rate and regular rhythm. Exam reveals no friction rub. No murmur heard. Pulmonary/Chest: Effort normal and breath sounds normal. No respiratory distress. There are no wheezes. Abdominal: Soft. Bowel sounds are normal. No distension. There is no tenderness. There is no rebound and no guarding. Musculoskeletal: No edema; left knee soft Neurological: Grossly normal. Skin: Skin is warm and dry. No erythema. Labs: Laboratory data and diagnostic testing reviewed 10/01/18. Stephania Weinberg MD 10/01/2018 7:47 AM * Celeste Alvarez - 09/30/2018 7:02 PM EDT 09/30/18 1900 Pastoral Care Encounter Visited With Patient and family together Date of visit 09/30/18 Visit Type Initial Need to follow-up? Yes Taoism Needs Pastoral care brochure;Prayer Spiritual Needs Bahai? Mandaeism Has Pts suha community been notified No, do not notify Pastoral Care Issues Pastoral Care Issues Coping Comments Bunghole Borer listened as patient and daughter shared life experiences. Bunghole Borer prayed with patient upon request. Coping Resources Suha;Family;Prayer Pastoral Care Plan/Intervention Plan/Intervention Continue to Follow;Family Support;Prayer 09/30/2018 Celeste Alvarez * Bri Crockett PTA - 09/30/2018 3:27 PM EDT 09/30/18 1432 PT Subjective Note Type Treatment/Progress Patient Room/Unit 7405 PT Subjective Comments #1 pt agrees to PT in [facility] gym Discharge Information This progress note will serve as the discharge summary if no further therapy is provided prior to the patient being discharged from the hospital. Pain Screening PT/OT Patient Currently in Pain Yes Pain Rating 5 Pain Location Knee Pain Orientation Left Pain Intervention(s) Cold applied;Repositioned;Ambulation/Increased activity;Medication (see eMar) Cognition Orientation Intact Precautions Therapy Precautions Yes Weight Bearing Status Left lower extremity;Weight bearing as tolerated Precaution info given Weight bearing;To use call light to request assistance with all mobility Observation Additional Comments pt transported to [facility] via w/c Transfers Sit to Stand Stand by assist;With verbal cues Stand to Sit Stand by assist;With verbal cues Additional Comments verbal cues for proper hand placement sit<>stand Gait Gait Contact guard assist;Stand by assist;With verbal cues Gait Distance (Feet) 100 Feet Assistive Device 2 Wheel walker Pattern Antalgic;Slow jerome;Step to Weight Bearing Status Weight bearing as tolerated Additional Comments progressed to step through gait AM PAC: How much help from another person does the patient currently need... turning from your back to your side while in a flat bed without using bedrails? 3 moving from lying on your back to sitting on the side of a flat bed without using bedrails? 3 moving to and from a bed to a chair? 3 standing up from a chair using your arms (e.g. wheelchair, or bedside chair)? 4 need to walk in hospital room? 3 climbing 3-5 steps with a railing? 2 AM PAC: BASIC MOBILITY SCORING AM PAC Moblity Raw Score 18 AM PAC Mobility CMS 0-100% Functional Percentage 40.47 AM PAC Mobility CMS G Code Modifier CK Balance Sitting Balance 4/5 moves/returns trunkal midpoint 1-2 inches in multiple planes Standing Balance 2/5 indep, requires both UE support Exercise Exercise Yes Additional Comments nustep x10'; shuttle x5'; therex per TKA Guidelines assistance given as needed Education Education Safety with mobility;Cues for proper technique;Up with assistance only;Safe and proper technique with transfers;Safe and proper technique with gait pattern;To use call light to request assistance with all mobility Patient Safety Patient Safety (pt transported back to room via w/c) Assessment Assessment Decreased gait;Decreased functional mobility;Decreased balance;Decreased activity tolerance Prognosis Good;With continued PT s/p acute discharge Progress Improving as expected;Progressing toward goals Rationale for Skilled Therapy Fall Risk;Balance Deficits;Not safe with independent transfers;Not safe ambulating independently Goals Pt Will Go Supine To Sit With contact guard assistance;Not met Pt will perform Sit to Stand With contact guard assistance;With stand by assist;Met Pt Will Ambulate With 2 wheel walker;101-150 feet;With contact guard assistance;Partly met Pt Will Increase ROM By 10 degrees;Not met Plan Treatment/Interventions Continue with current plan of care PT Frequency BID Recommendation PT Recommendation Home PT;Outpatient PT Time In / Time Out [id number] IP PT Evaluation Minutes 0 IP PT Treatment Minutes 39 The total time spent caring for this patient included but was not limited to medical record review;hands-on treatment;communication and education with patient and/or family/caregiver;physician contact in the presence of the patient;assessment of the patient's progress since the last session;clinical judgement necessary for treatment planning for next session;communication with nursing and/or carecoordination/social work regarding patient status and discharge planning * Eloina Anaya RN - 09/30/2018 11:51 AM EDT 09/30/18 1143 Assessment Complete Actual Discharge Plan 09/30/18: CC Initial Assessment, met with pt, pt lives independently with spouse, has 2 wheeled walker for home use and elevated commodes, no steps in home, has PCP, denies issuesaffording Rx meds, discussed PT recommendations, pt has plans to go to the OPPT in her town (lives in [place], [place]), denies further d/c needs, spouse to transport at d/c. Completed by CC/SW Yes Discharge to Home with Family CJR letter given? Yes [facility] C[facility] letter given RRS Is patient score high risk on RRS score? No Care Coordination Assessment Observation Information Provided to Patient/Family N/A Does patient meet high risk triggers? Change in baseline mobility Assessed In person interview with patient Mental Status Alert and oriented Does patient need training mgr? No Decision Maker Him/Herself Activities of Daily Living Independent Living Arrangements Spouse/Significant Other Where did the patient come from? Private Residence Support Systems Spouse/Significant Other;Children Quality of Support System Adequate Type of Home Care Services None Recent decline in your ability to care for yourself physically? No DME Currently Used Walker Anticipated/Recommended DME needs? Walker Financial Concerns No Obtain prescription meds at discharge? Medicare D/Medicaid Obtain follow up care after discharge? PCP office Transportation at discharge Personal vehicle Discussed discharge plan with patient/family Yes Agency/Facility Options Offered, list provided Yes [facility] Financial Disclosure completed? N/A Patient/Family Prefer Specific Post Acute Care Provider (Specify) * Nola Del Real, PT - 09/30/2018 9:41 AM EDT 09/30/18 0905 PT Subjective Note Type Evaluation PT Subjective Comments #1 7405 PT Subjective Comments #2 Patient agreeable to PT. Discharge Information Evaluation to serve as discharge summary if no further treatment provided before the facility discharge Admitting Diagnosis 68 year old woman admitted 09-29-18 for left TKR per Dr. Newman. Past Med Hx HTN, arthritis, HLD, breast CA, sleep apnea, carpal tunnel release, right TKR, right THR Pain Screening PT/OT Patient Currently in Pain Yes Pain Intervention(s) Cold applied Additional Comments left knee Cognition Orientation Intact Precautions Therapy Precautions Yes Weight Bearing Status Weight bearing as tolerated Precaution info given Yes;Weight bearing;To use call light to request assistance with all mobility Home Living/Prior Function Type of Home House Home Layout One level Number of Steps 0 Home Equipment 2 wheel walker Level of Assistance Independent with ADLs ;Independent with functional transfers;Independent with homemaking;Ambulatory in home;Ambulatory in the community Lives With Spouse Observation Presentation Patient seated in chair Observation Chair Alarm LE Assessment LLE Assessment X RLE Assessment WFL AROM LLE (degrees) L Knee Flexion 0-140 ~70 L Knee Extension 0-130 ~10 Strength LLE L Knee Extension 2/5 Bed Mobility Additional Comments NT, up in chair Transfers Sit to Stand With verbal cues;Contact guard assist Stand to Sit With verbal cues;Contact guard assist Additional Comments Verbal cues for hand placement. Gait Gait With verbal cues;Contact guard assist Gait Distance (Feet) 80 Feet Assistive Device 2 Wheel walker Pattern Antalgic;Slow jerome;Step to Weight Bearing Status Weight bearing as tolerated Additional Comments Verbal cues for sequence, safety, hand placement and TKE. AM PAC: How much help from another person does the patient currently need... turning from your back to your side while in a flat bed without using bedrails? 3 moving from lying on your back to sitting on the side of a flat bed without using bedrails? 3 moving to and from a bed to a chair? 3 standing up from a chair using your arms (e.g. wheelchair, or bedside chair)? 3 need to walk in hospital room? 3 climbing 3-5 steps with a railing? 2 AM PAC: BASIC MOBILITY SCORING AM PAC Moblity Raw Score 17 AM PAC Mobility CMS 0-100% Functional Percentage 43.83 AM PAC Mobility CMS G Code Modifier CK Balance Sitting Balance 4/5 moves/returns trunkal midpoint 1-2 inches in multiple planes Standing Balance 2/5 indep, requires both UE support Exercise Exercise Yes Supine Supine Ankle Pumps 10 Supine Quad Sets 10 Seated Seated LAQ's 10 Seated Hamstring Curls 10 Education Education To use call light to request assistance with all mobility;Patient/Family Education;Role of Therapy;Safety with mobility;Cues for proper technique;Up with assistance only;Safe and proper post ure/positioning;Safe and proper technique with transfers;Safe and proper technique with gait pattern Patient Safety Patient Safety Other (comment) (left in restroom with DRYWALL HANGER HELPER) Assessment Assessment Decreased gait;Decreased functional mobility;Decreased balance;Decreased Left Lower Extremity ROM;Decreased Left Lower Extremity strength;Decreased activity tolerance Prognosis Good;With continued PT s/p acute discharge Rationale for Skilled Therapy Balance Deficits Goals Patient and/or Family Goal to go home PT GOALS (Yes/No) Yes Add Goals Pt Will Go Supine To Sit With contact guard assistance Pt will perform Sit to Stand With stand by assist;With contact guard assistance Pt Will Ambulate With 2 wheel walker;101-150 feet;With contact guard assistance Pt Will Increase ROM By 10 degrees Time for Goal Achievement/Duration of Treatment x 5 days Plan Treatment/Interventions Gait training;Bed mobility;Balance training;Functional transfer training;LEstrengthening/ROM;Increase activity tolerance PT Frequency BID Recommendation PT Recommendation Home PT;Outpatient PT Time In / Time Out [id number]; 1850-3170 IP PT Evaluation Minutes 10 IP PT Treatment Minutes 24 The total time spent caring for this patient included but was not limited to medical record review;hands-on treatment;communication and education with patient and/or family/caregiver;clinical judgement necessary for treatment planning for next session;communication with nursing and/or care coordinat ion/social work regarding patient status and discharge planning * Machelle Hauser PA-C - 09/30/2018 8:06 AM EDT [facility] Progress Note Admit Date: 09/29/2018 LOS: 1 day HPI: Juany Alarcon is a(n)68 y.o. female admitted for work-up and treatment for Osteoarthritis of left knee, unspecified osteoarthritis type [M17.12] OA (osteoarthritis) of knee [M17.10]. . Subjective: Scheduled Meds: ??? anastrozole 1 mg Oral Daily ??? apixaban 2.5 mg Oral BID ??? atorvastatin 40 mg Oral Nightly ??? [START ON 10/01/2018] bisacodyl 10 mg Oral BID Or ??? [START ON 10/01/2018] bisacodyl 10 mg Rectal BID ??? bisoprolol-hydrochlorothiazide 1 Tab Oral Daily ??? Cholecalciferol (Vitamin D3) 1 Cap Oral Daily ??? docusate sodium 100 mg Oral BID ??? ferrous sulfate 325 mg Oral BID WM ??? magnesium hydroxide 30 mL Oral Daily ??? potassium chloride 20 mEq Oral Daily WM ??? senna 2 Tab Oral Nightly Continuous Infusions: ??? lactated ringers 100 mL/hr at 09/29/18 1630 PRN Meds:acetaminophen, aluminum & magnesium hydroxide-simethicone, benzocaine- menthol, ondansetron OR ondansetron, oxyCODONE Objective: Patient Vitals for the past 8 hrs: BP Temp Temp src Pulse Resp SpO2 09/30/18 0749 129/60 98.2 ??F (36.8 ??C) Oral 60 16 96 % 09/30/18 0501 138/56 97.7 ??F (36.5 ??C) Oral 67 16 96 % No intake/output data recorded. Labs: CBC: Lab Results Component Value Date HGB 10.4 (L) 09/30/2018 HCT 31.7 (L) 09/30/2018 BMP: No results found for: NA, K, CL, CO2, BUN, LABALBU, CREATININE, CALCIUM, GFRAFRAM, GFRNONAFRAM, GLU Coagulation: No results found for: INR, APTT Radiology Results: No results found for this or any previous visit. POD #1 Incision clean and dry. No active bleeding. 2/4 pulses. Brisk Cap Refill. Negative Homans. Positive AROM DP/PF. Normal Neuro Abd: Soft Plan: Doing fine. Advance as directed. NA Anigned by Brian Newman MD at 10/01/2018 8:37 AM EDT * Rafael Ford [facility] - 09/29/2018 4:16 PM EDT IV-PO Pharmacy Note Per [facility], IV acetaminophen was changed to oral acetaminophen. Patient is not NPO and has other oral medications ordered. One time PACU order for IV acetaminophen was placed. Thank you, Rafael Ford, PharmD * Brian Newman MD - 09/29/2018 12:08 PM EDT Post op: RR VS: BP 114/59 (BP Location: Left arm, Patient Position: Semi Fowlers) Pulse 62 Temp 98.2 ??F (36.8 ??C) (Temporal) Resp 12 Ht 5' 6 (1.676 m) Wt 208 lb (94.3 kg) SpO2 97% ?No BMI 33.57 kg/m?? Extremity: Dressing CD&I Calves Non Tender Neg Homans DP Intact Abdomen: Soft Non Tender : Without Void A/P Stable in RR Block in Place * Sesar Dutton MD - 09/22/2018 11:49 AM EDT Juany Alarcon is a 68 y.o. female with a history of severe osteoarthritis of the left knee and has failed conservative treatment. she will require a TKA to improve pain, function and quality of life.Because of her Sleep Apnea she will be admitted as Inpatient as she is at increased risk for complications. Cosigned by Brian Newman MD at 09/22/2018 1:00 PM EDT documented in this encounter H&P Notes * Christine August MD - 09/29/2018 8:21 AM EDT H&P Update History & Physical Reviewed Additional Findings: Pt seen and examined. Additional Hx and updated Med list reviewed in EPIC. ROS: No cp, sob, fever or recent illness. CV=RRR w/o R/G/M. Lungs=Clear. Abd= soft, nt, nd, +bs. Ext=No significant edema, 2+PT's, 1+right DP, 2+Left DP Pt took her ziac this morning. Source Note - Unknown, Unknown - 09/28/2018 10:05 AM EDT documented in this encounter Procedure Notes * Brian Newman MD - 10/01/2018 8:[address] [facility] OPERATIVE/PROCEDURE NOTE Juany Alarcon Lionel October 01, 2018 Body mass index is 33.57 kg/m??. PRE-OP DIAGNOSIS: Osteoarthritis of left knee, unspecified osteoarthritis type [M17.12] POST-OP DIAGNOSIS: Osteoarthritis of left knee, unspecified osteoarthritis type [M17.12] PROCEDURE(S): Procedure(s): LEFT TOTAL KNEE ARTHROPLASTY SURGEON(S): Surgeon(s) and Role: * Brian Newman MD - Primary TEACHER OF GIFTED STUDENTS(S): Analisa ANESTHESIA: Spinal TT <45mn SPECIMENS: * No specimens in log * ESTIMATED BLOOD LOSS (mls): 50ml DISPOSITION/POST PROC COURSE: PACU Brian Newman MD Date: 10/01/2018 * Brian Newman MD - 09/29/2018 11:21 AM EDT DATE OF OPERATION: 09/29/2018 PREOPERATIVE DIAGNOSES: 1. Severe tricompartmental osteoarthritis, left knee. 2. Flexion contracture, 7 degrees, left leg. 3. Genu varus, 5 degrees, left lower extremity. 4. History of breast cancer. POSTOPERATIVE DIAGNOSES: 1. Severe tricompartmental osteoarthritis, left knee. 2. Flexion contracture, 7 degrees, left leg. 3. Genu varus 5, degrees, left lower extremity. 4. History of breast cancer. PROCEDURE: Left total knee arthroplasty with femoral, tibial and patellar replacement, CPT 65702. SURGEON: Brian Newman M.D. TEACHER OF GIFTED STUDENTS: Abril Hauser PA-C (medical necessity for plumber assistant surgeon with complex left total knee arthroplasty). NOTE: clinical data assistant was utilized and essential to the procedure for positioning extremity, retraction, assisting with instrumentation and holding position of extremity so the surgeon had two hands free for placing implants and dissection. clinical data assistant was also utilized for incisional closure. CPT 31609 ANESTHESIA: Spinal. HISTORY: Ms. Alarcon is a 68-year-old woman who has failed all aspects of conservative treatment. This is a lady who has [id number] arthritis with a fixed flexion varus deformity. She is now admittedfor planned operative replacement. The risks and benefits of this have been discussed. She understands she may not be completely pain-free with this. She has accepted that and surgery was scheduled for her at her request. PROCEDURE DETAILS: The patient was brought to the operating theater and, following placement of a spinal anesthetic, was prepped and draped with the left knee prepped and draped free. Central midlinesurgical incision along with parapatellar retinacular approach was now made here. The patella was subluxed laterally and the proximal tibia was cut first perpendicular to the longitudinal mechanical axis of the tibial shaft, referencing rotational alignment off the posterior tibial plateau, medial tibial tubercle, and the medial malleolar axis. This gave us direct access to the distal femur, which was drilled with a 3/4- inch drill bit and decompressed with an abdominal sucker. Anterior- posterior cut was made, calling for size 5 femoral component here. Flex block was then utilized and anterior-posterior and chamfer cuts were all completed in sequence. Once this was done, this gave us directaccess to the proximal tibia. The tibial component measured for a size E baseplate. Trial reductionwas now done with a corresponding 10 mm spacer. Ligamentous exam was now re-balanced, matching flexi on and extension gap. This gave us 0-130 degrees on the table, using a 10 mm posterior stabilized insert with full stability at 0, 30, and 90 and no anterior-posterior drop-back. Tibial rotation was then marked. The tibia was then drilled and stemmed. The patella measured 26 mm in thickness. An 8 mm cut was made off the inferior surface with sizing for a 32 mm button. Hands-off tracking showed centralization of the patella and no need for a lateral release. All components were now removed. The knee was copiously irrigated while one packet of Palacos antibiotic cement was mixed under vacuum and centrifuge and hand-packed onto the proximal tibia. Tibial component, consisting of a size E tibial baseplate with 14 x 30 mm stem extension, was now cemented in place. Femoral component, consistingof a posterior stabilized size 5 component, was placed and the knee brought into full extension with a 10 mm insert to allow the cement to set. All cement was allowed to cure. Tourniquet was now dropped. Tourniquet time was less than 45 minutes in duration. Estimated blood loss was 50 mL. The capsular block was now placed. Bleeding controlled with electrocautery. A tibial insert was used and a 10mm posterior stabilized insert was now placed. Range and stability was again documented and standard closure and dressing applied. There were no operative complications. Sponge and needle count was correct x2. The patient was taken to the recovery room in stable condition with spontaneous respiration for same-day discharge. Reviewed by sunil/LORENA, 10/01/2018 Brian Newman M.D. By: Jason Job ID: [id number] Doc ID: [id number] * Brian Newman MD - 09/29/2018 11:[address] [facility] OPERATIVE/PROCEDURE NOTE Juany Alarcon September 29, 2018 Body mass index is 33.57 kg/m??. PRE-OP DIAGNOSIS: Osteoarthritis of left knee, unspecified osteoarthritis type [M17.12] POST-OP DIAGNOSIS: Osteoarthritis of left knee, unspecified osteoarthritis type [M17.12] PROCEDURE(S): Procedure(s): LEFT TOTAL KNEE ARTHROPLASTY SURGEON(S): Surgeon(s) and Role: * Brian Newman MD - Primary TEACHER OF GIFTED STUDENTS(S): Analisa BRICE ANESTHESIA: Spinal TT <45mn SPECIMENS: * No specimens in log * ESTIMATED BLOOD LOSS (mls): <50ml DISPOSITION/POST PROC COURSE: PACU Brian Newman MD Date: 09/29/2018 documented in this encounter Consult Notes * Stephania Weinberg MD - 09/30/2018 2:07 PM EDTAssociated Order(s): IP CONSULT TO FAMILY PRACTICE [facility] History and Physical Name: Juany Alarcon : 1950 AGE: 68 y.o. PCP: Carlos Manuel Barragan Admitting Physician: Brian Newman MD Date of Admit: 09/29/2018 Chief Complaint: medical mgmt History of Present Illness: Asked to see this patient in consultation by ortho for medical management. Patient is POD #1 s/p left tkr. She has a history of Breast CA, htn, hyperlipids. She is participating in PT currently Past Medical History: Diagnosis Date ??? Anemia [...] know setting ??? Wears glasses for reading Past Surgical History: Procedure Laterality Date ??? BREAST BIOPSY Left 02/07/15 x 4 lymph nodes removed ??? BREAST BIOPSY Left 03/03/2015 ??? BREAST RECONSTRUCTION Left 11/16/2015 LEFT BREAST STAGE 2 RECONSTRUCTION WITH IMPLANT RIGHT BREAST REDUCTION FOR SYMMETRY ; Surgeon: Flaco Damon MD; Location: [facility]; Service: Plastics ??? BREAST REDUCTION SURGERY Right 11/16/2015 Surgeon: Flaco Damon MD; Location: [facility]; Service: Plastics ??? BREAST SURGERY Left 06/02/2015 BREAST RECONSTRUCTION 1ST STAGE WITH EXPANDERS ; Surgeon: Flaco Damon MD; Location: [facility]; Service: General ??? CARPAL TUNNEL RELEASE Bilateral 02/12/2018 BILATERAL CARPAL TUNNEL RELEASE ; Surgeon: Francisco Javier Lepe MD; Location: PSYCHIATRIC; Service: Hand ??? CHOLECYSTECTOMY ??? COLONOSCOPY ??? DENTAL SURGERY wisdom teeth extracted ??? FOOT SURGERY Left 10/05/2010 hammertoes ??? HIP SURGERY 2009 right total ??? KNEE SURGERY 2008 right TKR ??? TONSILLECTOMY ??? TOTAL KNEE ARTHROPLASTY Left 09/29/2018 LEFT TOTAL KNEE ARTHROPLASTY; Surgeon: Brian Newman MD; Location: [facility]; Service: Orthopedics @PRIOR TO ADMISSION MEDS@ Allergies Allergen Reactions ??? Morphine Other (See Comments) confusion ??? Penicillins Rash Social History Social History ??? Marital status: Spouse name: N/A ??? Number of children: N/A ??? Years of education: N/A Social History Main Topics ??? Smoking status: Never Smoker ??? Smokeless tobacco: Never Used ??? Alcohol use Yes Comment: socially ??? Drug use: No ??? Sexual activity: No Other Topics Concern ??? None Social History Narrative ??? None Family History Problem Relation Age of Onset ??? Ovarian Cancer Mother 83 ??? Cancer Mother uterus ??? Breast Cancer Sister 52 ??? High Blood Pressure Sister ??? Heart Failure Father ??? Thyroid Disease Father ??? Defects Brother ??? High Blood Pressure Sister ??? Anesth Problems Neg Hx Review of Systems: The listed systems were reviewed and reveal the following in addition to any already discussed in the HPI: ?? Constitutional: No fever, chills, or weight loss ?? Eyes: No visual disturbance ?? HEENT: No headache, hearing loss, epistaxis, sore throat, or hoarseness ?? Lungs: No SOB, cough, hemoptysis, or pleuritic chest pain ?? Cardiovascular: No chest pain, PND, orthopnea, BENITEZ ?? Endocrine: No polyuria, polydypsia, or polyphagia ?? GI: No abdominal pain, nausea, vomiting, hematemesis, diarrhea, constipation, melena, hematochezia, or bright red blood per rectum ?? : No dysuria, frequency, hesitancy, or hematuria ?? Musculoskeletal: as above ?? Neurologic: No focal numbness or weakness ?? Skin: none ?? Psychiatric: No depression, anxiety ?? Hematologic/Allergic: No history of bleeding or easy bruising, no clots OBJECTIVE: Physical Exam: Vitals: 09/30/18 1229 BP: 139/55 Pulse: 62 Resp: 16 Temp: 97.8 ??F (36.6 ??C) SpO2: 96% Weight: 208 lb (94.3 kg) Constitutional: Well developed, adequently nourished, no acute distress, non- toxic appearance Eyes: PERRL, conjunctiva normal, sclera clear HEENT: Atraumatic,mouth moist, no thrush Neck- normal range of motion, no tenderness, supple no LA TM JVD Respiratory: No respiratory distress, normal breath sounds, no rales, no wheezing Cardiovascular: Normal rate, normal rhythm, no murmurs, no gallops, no rubs GI: Soft, nondistended, + bowel sounds, nontender no mass, no rebound, no guarding :not examined Musculoskeletal: Right knee bandaged Integument: Adequatly hydrated, no rash Lymphatic: No lymphadenopathy noted Neurologic: Alert & oriented x 3, moving all 4 limbs equally no gross focal deficits noted Psychiatric: Speech and behavior appropriate Labs: CBC: Lab Results Component Value Date HGB 10.4 (L) 09/30/2018 HCT 31.7 (L) 09/30/2018 All Radiology/Labs/EKG's/Cardiac testing reviewed. Active Hospital Problems Diagnosis ??? *Essential hypertension ??? Hypokalemia ??? Osteoarthritis of left knee Admission Assessment and Plan: POD #1 s/p left TKR HTN Hyperlipids Hx of breast CA K supplementation Medical problems stable hgb stable Will follow Stephania Weinberg MD 09/30/2018 6:37 PM documented in this encounter Nursing Notes * Annabel Suárez, Clerical Staff - 09/28/2018 8:51 AM EDT Spoke with Catalina regarding office note and antibiotic order for DOS documented in this encounter Miscellaneous Notes * Plan of Care - Arpita Mora RN - 10/02/2018 9:24 AM EDT Problem: Pain Management Goal: The patient's stated pain goal will be reached and maintained. The patient's stated pain goal will be reached and maintained Outcome: Progressing Patient's pain has been well controlled per PRN pain medication regimen. Patient knows to use the call light when in pain and in need of pain medication. Will continue to monitor. Problem: Safety: Fall Risk Goal: Patient will remain free of falls and injury Outcome: Progressing Patient states the importance of using the call light to get up and ambulate. Patient's belongings and call light within reach. Non-skid socks on. Problem: Altered Mobility - 79 Related to paresis/paraplegia Goal: Patient will reach optimal mobility status with highest level of independence Outcome: Progressing Up x1 * Plan of Care - Meggan Blackwell RN - 10/01/2018 10:56 PM EDT Problem: Pain Management Goal: The patient's stated pain goal will be reached and maintained. The patient's stated pain goal will be reached and maintained Outcome: Progressing Pt denies pain at this time. Problem: Safety: Fall Risk Goal: Patient will remain free of falls and injury Outcome: Progressing Pt remains free of falls. Bed alarm on. Call light within reach. * Plan of Care - Arpita Mora RN - 10/01/2018 10:47 AM EDT Problem: Pain Management Goal: The patient's stated pain goal will be reached and maintained. The patient's stated pain goal will be reached and maintained Outcome: Progressing Patient's pain has been well controlled per PRN pain medication regimen. Patient knows to use the call light when in pain and in need of pain medication. Will continue to monitor. Problem: Safety: Fall Risk Goal: Patient will remain free of falls and injury Outcome: Progressing Patient states the importance of using the call light to get up and ambulate. Patient's belongings and call light within reach. Non-skid socks on. Problem: Altered Mobility - 79 Related to paresis/paraplegia Goal: Patient will reach optimal mobility status with highest level of independence Outcome: Progressing Up x1 * Plan of Care - Christina Jaime RN - 09/30/2018 8:40 PM EDT Problem: Pain Management Goal: The patient's stated pain goal will be reached and maintained. The patient's stated pain goal will be reached and maintained Outcome: Progressing Pt aware to use call light for needs. Call light in reach. Continuing to monitor and medicate as needed. Problem: Safety: Fall Risk Goal: Patient will remain free of falls and injury Outcome: Progressing Pt aware to use call light for needs. Call light in reach. Bed in lowest position. * RT Oxygen Plan of Care Note - Mirna Buitrago, CORRECTIVE THERAPY AIDE - 09/30/2018 7:53 PM EDT September 30, 2018 Oxygen Therapy: Oxygen Liters/Percent: 2L Maintain Oxygen Sat greater than or equal to: Other Other Saturation NC: OXYGEN PRN TO MAINTAIN PRE-OPERATIVE BASELINE SPO2 O2 Device: Room Air SpO2: 93 % Will continue to wean oxygen as tolerated to maintain titration goal. SUCTION OPERATOR removed-pt stated it kept alarming and was removed earlier in the day. Mirna Buitrago RRT * Plan of Care - Eloina Anaya RN - 09/30/2018 11:52 AM EDT Problem: Discharge/Coordination of Care/Transition of Care Goal: Patient will have a plan for disposition or transition to next level of care Outcome: Completed Date Met: 09/30/18 CC to follow and assist for d/c needs. Problem: Disposition/Transition of Care Goal: Patient will have a plan for disposition or transition to next level of care Outcome: Completed Date Met: 09/30/18 CC to follow and assist for d/c needs. * Utilization Review Notes - Yoon Schneider RN - 09/30/2018 10:06 AM EDT IP ORDER IN EPIC. CAME TO MS FLOOR FROM PACU. SP 09/29/18 LEFT TOTAL KNEE ARTHROPLASTY IP TO MS. PT EVAL.IS Q2H,WBAY, A BOOTS ELIQUIS PO BID,IV 100ML/HR, OXYCODONE PO Q3HPRN PT RECOMMENDS HOME PT/OPPT DCPLAN- CC/SS FOLLOWING * RT Oxygen Plan of Care Note - Latoya Reyes RRT - 09/30/2018 8:55 AM EDT September 30, 2018 Oxygen Therapy: Oxygen Liters/Percent: 2L Maintain Oxygen Sat greater than or equal to: Other Other Saturation NC: OXYGEN PRN TO MAINTAIN PRE-OPERATIVE BASELINE SPO2 O2 Device: Room Air SpO2: 91 % Will continue to wean oxygen as tolerated to maintain titration goal. Latoya Reyes RRT * Plan of Care - Laurie Fisher RN - 09/30/2018 1:43 AM EDT Problem: Pain Management Goal: The patient's stated pain goal will be reached and maintained. The patient's stated pain goal will be reached and maintained Outcome: Progressing Patients pain is being managed with medication. Patient uses distractions to decrease pain Problem: Safety: Fall Risk Goal: Patient will remain free of falls and injury Outcome: Progressing Patient uses the call light appropriately. Patient has on non-skid socks and call light in reach. Bed alarm is on Problem: Psycho/Social/Spiritual Goal: Patient will identify sources of support and strength Outcome: Progressing Patient identifies family as support * RT Oxygen Plan of Care Note - Connor Rock RC Medical Collections Representative - 09/29/2018 10:11 PM EDT September 29, 2018 Oxygen Therapy: Oxygen Liters/Percent: 2L Maintain Oxygen Sat greater than or equal to: Other Other Saturation NC: OXYGEN PRN TO MAINTAIN PRE-OPERATIVE BASELINE SPO2 O2 Device: Room Air SpO2: 94 % Will continue to wean oxygen as tolerated to maintain titration goal. DO Anne Medical Collections Representative * Plan of Care - Nile Andrea RN - 09/29/2018 5:02 PM EDT Problem: Safety: Fall Risk Goal: Patient will remain free of falls and injury Outcome: Progressing Call light in reach. Non-slip socks and gait belt in use when ambulating. Bed/chair alarm in use. documented in this encounter Plan of Treatment Upcoming Encounters Date Type Department Care Team (Late st Contact Info) Description 05/24/2024 10:30 AM EST Office Visit [facility] [address] [place] [phone] Nikolas Jha DPM [address] [place] [address] RD [address] [phone] documented as of this encounter Procedures Procedure Name Priority Date/Time Associated Diagnosis Comments SCANNED RHYTHM STRIPS 10/04/2018 7:41 AM EDT HEMOGLOBIN AND HEMATOCRIT Early AM 10/02/2018 6:12 AM EDT BASIC METABOLIC PANEL Routine 10/01/2018 10:27 AM EDT HEMOGLOBIN AND HEMATOCRIT Early AM 10/01/2018 6:31 AM EDT HEMOGLOBIN AND HEMATOCRIT Early AM 09/30/2018 6:50 AM EDT IP CONSULT TO SOCIAL WORK Routine 09/29/2018 3:57 PM EDT IP CONSULT TO FAMILY PRACTICE Routine 09/29/2018 11:55 AM EDT Procedure Note - Stephania Weinberg MD - 09/30/2018 2:07 PM EDTThis note is in progress. [facility] History and Physical Name: Juany Alarcon : 1950 AGE: 68 y.o. PCP: Carlos Manuel Barragan Admitting Physician: Brian Newman MD Date of Admit: 09/29/2018 Chief Complaint: medical mgmt History of Present Illness: Asked to see this patient in consultation by ortho for medical management.Patient is POD #1 s/p left tkr. She has a history of Breast CA, htn, hyperlipids. She is participating in PT currently Past Medical History: Diagnosis Date ? ? Anemia when younger only ? ? Arthritis knees, hips,back ? ? BRCA negative ? ? Breast cancer (HCC) 02/09/15 ILC, grade 1. No receptors at this time (not sufficient tissue), left, noradiation, no chemo ? ? Encounter for blood transfusion with THR 2 units ? ? Hyperlipidemia ? ? Hypertension ? ? Motion sickness past history when younger ? ? Postoperative nausea and vomiting does well with patch behind ear ? ? Unspecified sleep apnea cpap at night. does not know setting ? ? Wears glasses for reading Past Surgical History: Procedure Laterality Date ? ? BREAST BIOPSY Left 02/07/15 x 4 lymph nodes removed ? ? BREAST BIOPSY Left 03/03/2015 ? ? BREAST RECONSTRUCTION Left 11/16/2015 LEFT BREAST STAGE 2 RECONSTRUCTION WITH IMPLANT RIGHT BREAST REDUCTIONFOR SYMMETRY ; Surgeon: Flaco Damon MD; Location: [facility]; Service: Plastics ? ? BREAST REDUCTION SURGERY Right 11/16/2015 Surgeon: Flaco Damon MD; Location: [facility];Service: Plastics ? ? BREAST SURGERY Left 06/02/2015 BREAST RECONSTRUCTION 1ST STAGE WITH EXPANDERS ; Surgeon: Flaco Damon MD; Location: [facility] MAIN OR; Service: General ? ? CARPAL TUNNEL RELEASE Bilateral 02/12/2018 BILATERAL CARPAL TUNNEL RELEASE ; Surgeon: Francisco Javier Lepe MD; Location:PSYCHIATRIC; Service: Hand ? ? CHOLECYSTECTOMY ? ? COLONOSCOPY ? ? DENTAL SURGERY wisdom teeth extracted ? ? FOOT SURGERY Left 10/05/2010 hammertoes ? ? HIP SURGERY 2009 right total ? ? KNEE SURGERY 2008 right TKR ? ? TONSILLECTOMY ? ? TOTAL KNEE ARTHROPLASTY Left 09/29/2018 LEFT TOTAL KNEE ARTHROPLASTY; Surgeon: Brian Newman MD; Location:[facility] MAIN OR; Service: Orthopedics @PRIOR TO ADMISSION MEDS@ Allergies Allergen Reactions ? ? Morphine Other (See Comments) confusion ? ? Penicillins Rash Social History Social History ? ? Marital status: Spouse name: N/A ? ? Number of children: N/A ? ? Years of education: N/A Social History Main Topics ? ? Smoking status: Never Smoker ? ? Smokeless tobacco: Never Used ? ? Alcohol use Yes Comment: socially ? ? Drug use: No ? ? Sexual activity: No Other Topics Concern ? ? None Social History Narrative ? ? None Family History Problem Relation Age of Onset ? ? Ovarian Cancer Mother 83 ? ? Cancer Mother uterus ? ? Breast Cancer Sister 52 ? ? High Blood Pressure Sister ? ? Heart Failure Father ? ? Thyroid Disease Father ? ? Defects Brother ? ? High Blood Pressure Sister ? ? Anesth Problems Neg Hx Review of Systems: The listed systems were reviewed and reveal thefollowing in addition to any already discussed in the HPI: ?? Constitutional: No fever, chills, or weight loss ?? Eyes: No visual disturbance ?? HEENT: No headache, hearing loss, epistaxis, sore throat, orhoarseness ?? Lungs: No SOB, cough, hemoptysis, or pleuritic chest pain ?? Cardiovascular: No chest pain, PND, orthopnea, BENITEZ ?? Endocrine: No polyuria, polydypsia, or polyphagia ?? GI: No abdominal pain, nausea, vomiting, hematemesis, diarrhea,constipation, melena, hematochezia, or bright red blood per rectum ?? : No dysuria, frequency, hesitancy, or hematuria ?? Musculoskeletal: as above ?? Neurologic: No focal numbness or weakness ?? Skin: none ?? Psychiatric: No depression, anxiety ?? Hematologic/Allergic: No history of bleeding or easy bruising, noclots OBJECTIVE: Physical Exam: Vitals: 09/30/18 1229 BP: 139/55 Pulse: 62 Resp: 16 Temp: 97.8 ??F (36.6 ??C) SpO2: 96% Weight: 208 lb (94.3 kg) Constitutional: Well developed, adequently nourished, no acute distress,non-toxic appearance Eyes: PERRL, conjunctiva normal, sclera clear HEENT: Atraumatic,mouth moist, no thrush Neck- normal range of motion, no tenderness, supple no LA TM JVD Respiratory: No respiratory distress, normal breath sounds, no rales, nowheezing Cardiovascular: Normal rate, normal rhythm, no murmurs, no gallops, norubs GI: Soft, nondistended, + bowel sounds, nontender no mass, no rebound, noguarding :not examined Musculoskeletal: Right knee bandaged Integument: Adequatly hydrated, no rash Lymphatic: No lymphadenopathy noted Neurologic: Alert & oriented x 3, moving all 4 limbs equally no grossfocal deficits noted Psychiatric: Speech and behavior appropriate Labs: CBC: Lab Results Component Value Date HGB 10.4 (L) 09/30/2018 HCT 31.7 (L) 09/30/2018 All Radiology/Labs/EKG's/Cardiac testing reviewed. Active Hospital Problems Diagnosis ? ? *Essential hypertension ? ? Hypokalemia ? ? Osteoarthritis of left knee Admission Assessment and Plan: POD #1 s/p left TKR HTN Hyperlipids Hx of breast CA K supplementation Medical problems stable hgb stable Will follow Stephania Weinberg MD 09/30/2018 6:37 PM TOTAL KNEE REPLACEMENT/ARTH ROPLASTY 09/29/2018 9:52 AM EDT Osteoarthritis of left knee, unspecified osteoarthritis type Special Needs SIVAN, ADDUCTOR NERVE BLOCK SINGLE SHOT, SPINAL documented in this encounter Results * SCANNED RHYTHM STRIPS (10/04/2018 7:41 AM EDT) Anatomical Region Laterality Modality Other 10/04/2018 7:41 AM EDT us Unknown Unknown IMG ECG ORDERABLES Final Result * (ABNORMAL) HEMOGLOBIN AND HEMATOCRIT (10/02/2018 6:12 AM EDT) Hgb 10.0(L) 11.2 - 15.7 g/dL 10/02/2018 7:00 AM EDT [facility] Hct 30.7(L) 34.0 - 45.0 % 10/02/2018 7:00 AM EDT [facility] Blood Venipuncture / Unknown 10/02/2018 6:12 AM EDT 10/02/2018 6:50 AM EDT us Brian Newman MD HEMATOLOGY ORDERABLES Final Res ult [facility] [address] , [place] [address] * (ABNORMAL) BASIC METABOLIC PANEL (10/01/2018 10:27 AM EDT) Sodium 137 136 - 145 mmol/L 10/01/2018 11:35 AM EDT [facility] Potassium 4.4 3.5 - 5.0 mmol/L 10/01/2018 11:35 AM EDT [facility] Chloride 101 98 - 107 mmol/L 10/01/2018 11:35 AM EDT [facility] Total CO2 26 22 - 29 mmol/L 10/01/2018 11:35 AM EDT [facility] Anion Gap 10 7 - 16 mmol/L 10/01/2018 11:35 AM EDT [facility] Calcium 9.1 8.8 - 10.4 mg/dL 10/01/2018 11:35 AM EDT [facility] Glucose Lvl 235(H) 82 - 100 mg/dL 10/01/2018 11:35 AM EDT [facility], [facility] BUN 21 8 - 23 mg/dL 10/01/2018 11:35 AM EDT [facility], [facility] Creatinine 1.03 0.51 - 1.30 mg/dL 10/01/2018 11:35 AM EDT [facility], [facility] GFR Afr Am 65 >=60 mL/min/1.7 3 m2 10/01/2018 11:35 AM EDT [facility], [facility] GFR Non Afr Am 56(L) >=60 mL/min/1.7 3 m2 10/01/2018 11:35 AM EDT [facility] [employer] [facility] Comment: This estimated GFR was calculated using CKD-EPI equation which is modified based on ethnicity for Non Americans and Americans. Both results are reported since it is not always possible to determine the patient's ethnicity. This equation should only be used for individuals 18 and older. It has not been validated for use with the elderly (>70 years), women, or in some racial or ethnic subgroups, such as Hispanics. The equation will be less accurate in people with differences in nutritional status or muscle mass. Blood VENOUS BLOOD / Unknown Venipuncture / Unknown 10/01/2018 10:27 AM EDT 10/01/2018 10:41 AM EDT us Stephania Weinberg MD CHEMISTRY ORDERABLES Final Result [facility] [address] , [place] [address] * (ABNORMAL) HEMOGLOBIN AND HEMATOCRIT (10/01/2018 6:31 AM EDT) Hgb 10.4(L) 11.2 - 15.7 g/dL 10/01/2018 7:18 AM EDT [facility], [facility] Hct 33.0(L) 34.0 - 45.0 % 10/01/2018 7:18 AM EDT [facility], [facility] Blood Venipuncture / Unknown 10/01/2018 6:31 AM EDT 10/01/2018 6:50 AM EDT us Brian Newman MD HEMATOLOGY ORDERABLES Final Res ult Performing Organization Address City/[facility]/ZIP Co de Phone Number [facility] [address] [place] [address] , [address] [place], [place] [id number] * (ABNORMAL) HEMOGLOBIN AND HEMATOCRIT (09/30/2018 6:50 AM EDT) Hgb 10.4(L) 11.2 - 15.7 g/dL 09/30/2018 7:18 AM EDT [facility] Hct 31.7(L) 34.0 - 45.0 % 09/30/2018 7:18 AM EDT [facility] Blood Venipuncture / Unknown 09/30/2018 6:50 AM EDT 09/30/2018 7:03 AM EDT Brian Newman MD HEMATOLOGY ORDERABLES Final Res ult Performing Organization Address [facility] Co de Phone Number [employer] [address] , [place] [address] documented in this encounter Visit Diagnoses Diagnosis Essential hypertension- Primary Unspecified essential hypertension Hypokalemia Hypopotassemia Osteoarthritis of left knee Osteoarthrosis, unspecified whether generalized or localized, lower leg documented in this encounter Admitting Diagnoses Diagnosis Osteoarthritis of left knee Osteoarthrosis, unspecified whether generalized or localized, lower leg documented in this encounter Administered Medications Inactive Administered Medications - up to 1 most recent administrations Medication Order MAR Action Action Date Dose Rate Site acetaminophen (OFIRMEV) infusion 1,000 mg 1,000 mg, Intravenous, ONCE PREPROCEDURE, 1 dose, On Fri09/28/18 at 0900, Administer over 15 Minutes, For patient weight greater than or equal to 50 kg Maximum adult dose of acetaminophen is 4000 mg from all sources in 24 hours. , Pre-op (Holding/SDS Meds) IV Started 09/29/2018 9:01 AM EDT 1,000 mg 400 mL/hr acetaminophen (TYLENOL) tablet 1,000 mg 1,000 mg, Oral, EVERY 6 HOURS PRN, Starting on Fri09/29/18 at 1706, Until Fri10/02/18 at 1647, Pain, Maximum adult dose of acetaminophen is 4000 mg from all sources in 24 hours. Given 09/30/2018 7:23 PM EDT 1,000 mg anastrozole (ARIMIDEX) tablet 1 mg 1 mg, Oral, DAILY, First dose on Fri09/30/18 at 0900, Until Discontinued Given 10/02/2018 8:05 AM EDT 1 mg apixaban (ELIQUIS) tablet 2.5 mg 2.5 mg, Oral, 2 TIMES DAILY, 24 doses, First dose on Fri09/30/18 at 0900, Last dose on Fri10/11/18 at 2100, Post-op Given 10/02/2018 8:05 AM EDT 2.5 mg atorvastatin (LIPITOR) tablet 40 mg 40 mg, Oral, NIGHTLY, First dose on Fri09/29/18 at 2100, Until Discontinued, Therapeutic interchange for rosuvastatin (Crestor) 10mg Given 10/01/2018 8:06 PM EDT 40 mg bisacodyl (DULCOLAX) EC tablet 10 mg 10 mg, Oral, 2 TIMES DAILY, First dose on Fri10/01/18 at 0900, Until Discontinued, Start 48 hours post-op. Hold if patient has had bowel movement. Nurse may select tablet or suppository., Post-op Given 10/01/2018 8:05 PM EDT 10 mg bisacodyl (DULCOLAX) suppository 10 mg 10 mg, Rectal, 2 TIMES DAILY, First dose on Fri10/01/18 at 0900, Until Discontinued, Start 48 hours post-op. Hold if patient has had bowel movement. Nurse may select tablet or suppository., Post-op bisoprolol-hydrochlorot hiazide (ZIAC) 5-6.25 mg per tablet 1 Tab 1 Tablet, Oral, DAILY, First dose on Fri09/30/18 at 0900, Until Discontinued Given 10/02/2018 8:05 AM EDT 1 Tablet Cholecalciferol (Vitamin D3) capsule 2,000 Units 2,000 Units (1 Capsule), Oral, DAILY, First dose on Fri09/29/18 at 1930, Until Discontinued Given 10/02/2018 8:05 AM EDT 2,000 Units clindamycin (CLEOCIN) 900 mg in 50 mL dextrose 5% IVPB 900 mg 900 mg, Intravenous, ONCE, 1 dose, On Fri09/29/18 at 1600, Administer over 60 Minutes IV Started 09/29/2018 6:14 PM EDT 900 mg 50 mL/hr docusate sodium (COLACE) capsule 100 mg 100 mg, Oral, 2 TIMES DAILY, First dose on Fri09/29/18 at 2100, Until Discontinued, Do not crush or chew., Post-op Given 10/01/2018 8:06 PM EDT 100 mg ferrous sulfate tablet 325 mg 325 mg, Oral, 2 TIMES DAILY WITH MEALS, First dose on Fri09/29/18 at 1800, Until Discontinued, Take with food other than cereals, dietary fiber, tea, coffee, eggs, or milk. Provides 65 mg of elemental iron. Do not crush., Post-op Given 10/02/2018 8:05 AM EDT 325 mg lactated ringers infusion Intravenous, at 100 mL/hr, PREPROCEDURE CONTINUOUS, Starting on Fri09/28/18 at 0850, Until Fri09/29/18 at 1557, To be given in SDS/Pre-op Holding Area, Pre-op (Holding/SDS Meds) New Bag 09/29/2018 11:30 AM EDT lactated ringers infusion Intravenous, at 100 mL/hr, CONTINUOUS, Starting on Fri09/29/18 at 1200, Until Fri09/30/18 at 1159, Post-op IV Started by Other 09/29/2018 4:30 PM EDT 100 mL/hr magnesium hydroxide (MILK OF MAGNESIA) 400 mg/5 mL suspension 30 mL 30 mL, Oral, DAILY, First dose on Fri09/30/18 at 0900, Until Discontinued, Start POD #1. Hold if patient has had bowel movement., Post-op Given 09/30/2018 8:08 AM EDT 30 mL ondansetron (ZOFRAN) injection 4 mg 4 mg, Intravenous, EVERY 4 HOURS PRN, Starting on Fri09/29/18 at 1557, Until Fri10/02/18 at 1647, Nausea, Post-op ondansetron (ZOFRAN-ODT) disintegrating tablet 4 mg 4 mg, Oral, EVERY 4 HOURS PRN, Starting on Fri09/29/18 at 1557, Until Fri10/02/18 at 1647, Nausea, Dissolve in mouth, Post-op oxyCODONE (OxyCONTIN) CR tablet 10 mg 10 mg, Oral, ONCE PREPROCEDURE, 1 dose, On Fri09/28/18 at 0900, Give with a small sip of water. For patient age 60-74 years, Pre-op (Holding/SDS Meds) Given 09/29/2018 8:59 AM EDT 10 mg oxyCODONE (ROXICODONE) immediate release tablet 5 mg 5 mg, Oral, ONCE, 1 dose, On Fri09/29/18 at 1200, Give when patient tolerating oral intake, PACU Given 09/29/2018 12:38 PM EDT 5 mg oxyCODONE (ROXICODONE) immediate release tablet 5-15 mg 5-15 mg, Oral, EVERY 3 HOURS PRN, Starting on Fri09/29/18 at 1557, Until Fri10/02/18 at 1647, Pain, Begin with lowest dose unless otherwise directed. Reassess pain in one hour. If pain unrelieved, remainder of dose may be given to patient., Post-op Given 10/02/2018 12:30 PM EDT 10 mg potassium chloride (K-DUR) tablet 20 mEq 20 mEq, Oral, DAILY WITH MEAL, First dose on Fri09/30/18 at 0800, Until Discontinued Given 10/02/2018 8:05 AM EDT 20 mEq povidone-iodine 5 % intranasal solution 1 Kit 1 Kit, INTRANASAL, ONCE, 1 dose, On Fri09/29/18 at 0900, Use a tissue to clean the inside of both nostrils including tip of nostril. Insert saturated swab comfortably into one nostril and rotate for 15 seconds covering all surfaces. Then focus on the inside tip of nostril and rotate for an additional 15 seconds. Using a new swab, repeat in the alternate nostril. Repeat the application in both nostrils using a fresh swab each time. Do not blow nose. If solution drips out of nose, it can be lightly dabbed with a tissue Given 09/29/2018 9:14 AM EDT 1 Kit pregabalin (LYRICA) capsule 75 mg 75 mg, Oral, ONCE PREPROCEDURE, 1 dose, On Fri09/28/18 at 0900, Give with a small sip of water. HOLD IF PATIENT HAS TAKEN USUAL DOSE IN THE AM., Pre-op (Holding/SDS Meds) Given 09/29/2018 8:59 AM EDT 75 mg scopolamine (TRANSDERM-SCOP) 1 mg over 3 days 1 Patch 1 Patch, Transdermal, ONCE PREPROCEDURE, 1 dose, On Fri09/28/18 at 0900, Place patch behind ear. Remove in 24 hours. To be given in SDS/Pre-op Holding Area. Transderm-Scop 1.5mg patch delivers scopolamine 1 mg per 72 hours, Administer over 24 Hours, Pre-op (Holding/SDS Meds) Patch Applied 09/29/2018 9:01 AM EDT 1 Patch Left Ear senna (SENOKOT) tablet 2 Tab 2 Tablet, Oral, NIGHTLY, 2 doses, First dose on Fri09/29/18 at 2100, Last dose on Fri09/30/18 at 2100, Post-op Given 09/30/2018 8:28 PM EDT 2 Tablets documented in this encounter Discontinued Medications Medication Sig Discontinue Reason Start Date End Da te anastrozole (ARIMIDEX) 1 mg Oral TabletIndications:Victoria gnant neoplasm of left female breast, unspecified estrogen receptor status, unspecified site of breast (HCC) Take 1 Tab by mouth daily. Removed During Admission Medication Review 07/30/2017 09/29/2018 anastrozole (ARIMIDEX) 1 mg Oral TabletIndications:Hist ory of breast cancer Take 1 Tab by mouth daily. Removed During Admission Medication Review 07/27/2018 09/29/2018 anastrozole (ARIMIDEX) 1 mg Oral TabletIndications:Victoria gnant neoplasm of left female breast, unspecified estrogen receptor status, unspecified site of breast (HCC) Take 1 Tab by mouth daily. DELETE-Duplicate 07/28/2018 09/29/2018 anastrozole (ARIMIDEX) 1 mg Oral TabletIndications:Victoria gnant neoplasm of left female breast, unspecified site of breast Take 1 Tab by mouth daily. DELETE-Duplicate 07/24/2016 09/29/2018 FOLIC ACID/MULTIVIT-MIN/LUTE IN (CENTRUM SILVER ORAL) Take by mouth. Reported on 07/24/2016 Non-compliance 09/29/2018 Diclofenac Potassium (ZIPSOR) 25 mg Cap Take 25 mg by mouth daily. 3 tablets Cost of medication 09/29/2018 PARoxetine (PAXIL) 10 mg Oral TabletIndications:[place] pausal symptoms Take 1 Tab by mouth daily. DELETE-Therapy completed 02/06/2016 09/29/2018 vitamin E 1,000 unit Oral Capsule Take 1,000 Units by mouth daily. Reported on 07/29/2016 Cancelled by 09/29/2018 meloxicam (MOBIC) 15 mg Oral Tablet Take 15 mg by mouth daily. Stop Taking at Discharge 10/02/2018 documented as of this encounter Active and Recently Administered Medications Times are shown in EDT. Scheduled Medication Order 09/30/2018 10/01/2018 10/02/2018 anastrozole (ARIMIDEX) tablet 1 mg 1 mg, Oral, DAILY, First dose on Fri09/30/18 at 0900, Until Discontinued 08 (Given - Provider: Nile Andrea RN) 824 (Given - Provider: Arpita Mora RN) 804 (Given - Provider: Arpita Mora RN) apixaban (ELIQUIS) tablet 2.5 mg 2.5 mg, Oral, 2 TIMES DAILY, 24 doses, First dose on Fri09/30/18 at 0900, Last dose on Fri10/11/18 at 2100, Post-op 08 (Given - Provider: Nile Andrea, CRISTOBAL)2027 (Given - Provider: Christina Jaime, CIRSTOBAL) 824 (Given - Provider: Arpita Mora RN)2005 (Given - Provider: Meggan Blackwell RN) 804 (Given - Provider: Arpita Mora RN) atorvastatin (LIPITOR) tablet 40 mg 40 mg, Oral, NIGHTLY, First dose on Fri09/29/18 at 2100, Until Discontinued, Therapeutic interchange for rosuvastatin (Crestor) 10mg 2027 (Given - Provider: Christina Jaime, CRISTOBAL) 2005 (Given - Provider: Meggan Blackwell, CRISTOBAL) bisacodyl (DULCOLAX) EC tablet 10 mg(Linked Group 1) 10 mg, Oral, 2 TIMES DAILY, First dose on Fri10/01/18 at 0900, Until Discontinued, Start 48 hours post-op. Hold if patient has had bowel movement. Nurse may select tablet or suppository., Post-op 825 (Given - Provider: Arpita Mora RN)2004 (Given - Provider: Meggan Blackwell RN) 899 (Not Given - Provider: Arpita Mora RN - Reason: Patient/family declined) bisacodyl (DULCOLAX) suppository 10 mg(Linked Group 1) 10 mg, Rectal, 2 TIMES DAILY, First dose on Fri10/01/18 at 0900, Until Discontinued, Start 48 hours post-op. Hold if patient has had bowel movement. Nurse may select tablet or suppository., Post-op 825 (See Alternative - Provider: Arpita Mora RN)2004 (See Alternative - Provider: Meggan Blackwell RN) 899 (See Alternative - Provider: Arpita Mora RN) bisoprolol-hydrochlorot hiazide (ZIAC) 5-6.25 mg per tablet 1 Tab 1 Tablet, Oral, DAILY, First dose on Fri09/30/18 at 0900, Until Discontinued 807 (Given - Provider: Nile Andrea RN) 824 (Given - Provider: Arpita Mora RN) 804 (Given - Provider: Arpita Mora RN) Cholecalciferol (Vitamin D3) capsule 2,000 Units 2,000 Units (1 Capsule), Oral, DAILY, First dose on Fri09/29/18 at 1930, Until Discontinued 807 (Given - Provider: Nile Andrea RN) 824 (Given - Provider: Arpita Mora RN) 804 (Given - Provider: Arpita Mora RN) docusate sodium (COLACE) capsule 100 mg 100 mg, Oral, 2 TIMES DAILY, First dose on Fri09/29/18 at 2100, Until Discontinued, Do not crush or chew., Post-op 808 (Given - Provider: Nile Andrea RN)2027 (Given - Provider: Christina Jaime RN) 824 (Given - Provider: Arpita Mora RN)2005 (Given - Provider: Meggan Blackwell, CRISTOBAL) 899 (Not Given - Provider: Arpita Mora RN - Reason: Patient/family declined) ferrous sulfate tablet 325 mg 325 mg, Oral, 2 TIMES DAILY WITH MEALS, First dose on Fri09/29/18 at 1800, Until Discontinued, Take with food other than cereals, dietary fiber, tea, coffee, eggs, or milk. Provides 65 mg of elemental iron. Do not crush., Post-op 807 (Given - Provider: Nile Andrea RN)1702 (Not Given - Provider: Nile Andrea RN - Reason: Patient/family declined) 0744 (Given - Provider: Arpita Mora RN)1800 (Not Given - Provider: Arpita Mora RN - Reason: Nausea/Vomiting) 0805 (Given - Provider: Arpita Mora RN) magnesium hydroxide (MILK OF MAGNESIA) 400 mg/5 mL suspension 30 mL 30 mL, Oral, DAILY, First dose on Fri09/30/18 at 0900, Until Discontinued, Start POD #1. Hold if patient has had bowel movement., Post-op 0808 (Given - Provider: Nile Andrea RN) 0900 (Not Given - Provider: Arpita Mora RN - Reason: Patient/family declined) 0900 (Not Given - Provider: Arpita Mora RN - Reason: Patient/family declined) potassium chloride (K-DUR) tablet 20 mEq 20 mEq, Oral, DAILY WITH MEAL, First dose on Fri09/30/18 at 0800, Until Discontinued 0809 (Given - Provider: Nile Andrea RN) 0744 (Given - Provider: Arpita Mora RN) 0805 (Given - Provider: Arpita Mora RN) senna (SENOKOT) tablet 2 Tab (COMPLETED) 2 Tablet, Oral, NIGHTLY, 2 doses, First dose on Fri09/29/18 at 2100, Last dose on Fri09/30/18 at 2100, Post-op 2027 (Given - Provider: Christina Jaime RN) PRN Medication Order 09/30/2018 10/01/2018 10/02/2018 acetaminophen (TYLENOL) tablet 1,000 mg 1,000 mg, Oral, EVERY 6 HOURS PRN, Starting on Fri09/29/18 at 1706, Until Fri10/02/18 at 1647, Pain, Maximum adult dose of acetaminophen is 4000 mg from all sources in 24 hours. 08 (Given - Provider: Nile Andrea RN)1922 (Given - Provider: Nile Andrea RN) aluminum & magnesium hydroxide-simethicone 200-200-20 mg/5 mL suspension 15 mL 15 mL, Oral, EVERY 4 HOURS PRN, Starting on Fri09/29/18 at 1557, Until Fri10/02/18 at 1647, Indigestion, Patient may have alternate Antacid of Choice, Post-op benzocaine-menthol 15-3.6 mg Lozg 1 Lozenge 1 Lozenge, Buccal, PRN, Starting on Fri09/29/18 at 1557, Until Fri10/02/18 at 1647, Sore Throat, Waste Sort Code = BKC, Post-op ondansetron (ZOFRAN) injection 4 mg(Linked Group 2) 4 mg, Intravenous, EVERY 4 HOURS PRN, Starting on Fri09/29/18 at 1557, Until Fri10/02/18 at 1647, Nausea, Post-op ondansetron (ZOFRAN-ODT) disintegrating tablet 4 mg(Linked Group 2) 4 mg, Oral, EVERY 4 HOURS PRN, Starting on Fri09/29/18 at 1557, Until Fri10/02/18 at 1647, Nausea, Dissolve in mouth, Post-op oxyCODONE (ROXICODONE) immediate release tablet 5-15 mg 5-15 mg, Oral, EVERY 3 HOURS PRN, Starting on Fri09/29/18 at 1557, Until Fri10/02/18 at 1647, Pain, Begin with lowest dose unless otherwise directed. Reassess pain in one hour. If pain unrelieved, remainder of dose may be given to patient., Post-op 0809 (Given - Provider: Nile Andrea RN)1239 (Given - Provider: Nile Andrea RN)1923 (Given - Provider: Nile Andrea RN) 0617 (Given - Provider: Christina Jaime RN)1011 (Given - Provider: Arpita Mora RN)1416 (Given - Provider: Arpita Mora, RN)1842 (Given - Provider: Arpita Mora RN) 0024 (Given - Provider: Meggan Blackwell, CRISTOBAL)0440 (Given - Provider: Meggan Blackwell RN)0805 (Given - Provider: Arpita Mora RN)1230 (Given - Provider: Arpita Mora RN) Linked Groups Order Group 1: bisacodyl (DULCOLAX) EC tablet 10 mgJump to med 10 mg, Oral, 2 TIMES DAILY, First dose on Dagmar 10/01/18 at 0900, Until Discontinued, Start 48 hours post-op. Hold if patient has had bowel movement. Nurse may select tablet or suppository., Post-op Or bisacodyl (DULCOLAX) suppository 10 mgJump to med 10 mg, Rectal, 2 TIMES DAILY, First dose on Dagmar 10/01/18 at 0900, Until Discontinued, Start 48 hours post-op. Hold if patient has had bowel movement. Nurse may select tablet or suppository., Post-op Group 2: ondansetron (ZOFRAN) injection 4 mgJump to med 4 mg, Intravenous, EVERY 4 HOURS PRN, Starting on Fri09/29/18 at 1557, Until Fri10/02/18 at 1647, Nausea, Post-op Or ondansetron (ZOFRAN-ODT) disintegrating tablet 4 mgJump to med 4 mg, Oral, EVERY 4 HOURS PRN, Starting on Fri09/29/18 at 1557, Until Fri10/02/18 at 1647, Nausea, Dissolve in mouth, Post-op documented in this encounter Orders Medications Ordered That Binu ht Not Have Been Administered Count Last Ordered Date First Ordered Date acetaminophen (OFIRMEV) infusion 1,000 mg 1 09/29/2018 acetaminophen (TYLENOL) tablet 1,000 mg 1 0 09/29/2018 acetaminophen (TYLENOL) tablet 650 mg 2 11/2018 aluminum & magnesium hydroxi de-simethicone 200-200-20 mg/5 mL suspension 15 mL 1 09/29/2018 benzocaine-menthol 15-3.6 mg Lozg 1 Lozenge 1 09/29/2018 bisacodyl (DULCOLAX) suppository 10 mg 1 clindamycin (CLEOCIN) 900 mg in 50 mL dextrose 5% IVPB 900 mg 1 09/29/2018 fentaNYL (SUBLIMAZE) injection 50 mcg 1 11/2018 HYDROmorphone (PF) (DILAUDID ) injection 0.25 mg 1 09/29/2018 meperidine (DEMEROL) injecti on (PF) 12.5 mg 1 09/29/2018 metoclopramide HCl (REGLAN) injection 10 mg 1 09/29/2018 ondansetron (ZOFRAN) injection 4 mg 2 09/29 ondansetron (ZOFRAN-ODT) dis integrating tablet 4 mg 1 09/29/2018 ondansetron (ZOFRAN-ODT) dis integrating tablet 8 mg 1 09/29/2018 ortho canal block 1 09/29/2018 oxyCODONE (ROXICODONE) immed iate release tablet 5 mg 1 09/29/2018 promethazine (PHENERGAN) 12. 5 mg in sodium chloride 10 mL injection 1 09/29/2018 promethazine (PHENERGAN) 6.2 5 mg in sodium chloride 10 mL injection 1 09/29/2018 Nursing Count Last Ordered Date First Orde red Date ADMISSION 1 09/29/2018 NURSING COMMUNICATION 3 09/29/2018 VERIFY INFORMED CONSENT 1 09/29/2018 Consult Count Last Ordered Date First Orde red Date IP CONSULT TO FAMILY PRACTICE 1 09/29/2018 IP CONSULT TO SOCIAL WORK 1 09/29/2018 PT Count Last Ordered Date First Orde red Date IP CONSULT TO PHYSICAL THERAPY 1 09/29/2018 Transfer Count Last Ordered Date First Orde red Date BED REQUEST 1 09/29/2018 Discharge Count Last Ordered Date First Orde red Date DISCHARGE PATIENT 1 10/02/2018 documented in this encounter Additional Health Concerns Assessment Noted Time A fall risk assessment has been complete d for the patient 07/29/2016 10:44 AM EST documented as of this encounter Care Teams Can Dragger Relationship Specialty Start Date End Date Carlos Manuel Barragan [address] [place] [address] [address] [place] [address] PCP - General 07/03/10 documented as of this encounter
--- OUTSIDE RECORDS SUMMARY | 2024-05-04 22:53 | XMS_ITS | Encounter Summary ---
Author Organization [place] [address] Care Team Providers Care Jig Builder Helper Name Role Phone Carlos Manuel Barragan Primary Care Provider [phone] Reason for Visit * Reason Comments Toe Pain bilateral great toes burning throbbing Encounter Details Date Type Department Care Team (Late st Contact Info) Description 06/17/2019 10:45 AM EST Office Visit [facility] [address] [place] [phone] Nikolas Jha, [facility] [address] [place] [address] [place] [phone] Ingrown toenail of both feet (Primary Dx); Pain in toes of both feet Social History Tobacco Use Types Packs/Day Years [...] Taken Comments Blood Pressure - - Pulse 57 06/17/2019 11:02 AM EST Temperature - - Respiratory Rate - - Oxygen Saturation 99% 06/17/2019 11:02 AM EST Inhaled Oxygen Concentration - - Weight 94.3 kg (208 lb) 06/17/2019 11:02 AM EST Height 161.3 cm (5' 3.5 ) 06/17/2019 11:02 AM ES T Body Mass Index 36.27 06/17/2019 11:02 AM EST documented in this encounter Functional [...] Progress Notes * Nikolas Jha DPM - 06/17/2019 10:45 AM EST Images from the original note were not included. Subjective: Patient ID: Juany Alarcon is a 69 y.o. female. Chief Complaint: Toe Pain (bilateral great toes burning throbbing) HPI Follow-up for bilateral great toe nail sx. States they burn and throb all the time. Past Medical History: Diagnosis Date ??? Anemia [...] SYMMETRY ; Surgeon: Flaco Damon MD; Location: [facility]; Service: Plastics ??? BREAST REDUCTION SURGERY Right 11/16/2015 Surgeon: Flaco Damon MD; Location: [facility]; Service: Plastics ??? BREAST SURGERY Left [...] KNEE ARTHROPLASTY; Surgeon: Brian Newman MD; Location: [facility]; Service: Orthopedics Family History Problem [...] Topics ??? Alcohol use: Yes Comment: socially Allergies Allergen Reactions ??? Morphine Other (See Comments) confusion ??? Penicillins Rash Outpatient Medications Marked as Taking for the 06/17/19 encounter (Office Visit) with Nikolas Jha DPM [...] Oral Capsule Take by mouth daily. ??? gabapentin (NEURONTIN) 100 mg Oral Capsule 1 ??? HYDROcodone-acetaminophen (NORCO) 7.5-325 mg Oral Tablet Take 1 Tab by mouth every 6 hours as needed for Acute Pain (R52). ??? montelukast (SINGULAIR) 10 mg Oral Tablet Take 10 mg by mouth every evening. ??? oxyCODONE (ROXICODONE) 5 mg Oral Tablet Take 1-2 Tabs by mouth every 4-6 hours as needed 30 Tab0 ??? potassium chloride SA (K-DUR;KLOR-CON) 20 mEq Oral Tab Sust.Rel. Particle/Crystal Take 20 mEq by mouth daily. ??? rosuvastatin (CRESTOR) 10 mg Oral Tablet Take 10 mg by mouth daily. Review of Systems Constitutional: Negative for chills, fatigue and fever. Respiratory: Negative for apnea and shortness of breath. Cardiovascular: Negative for chest pain and leg swelling. Gastrointestinal: Negative for nausea and vomiting. Musculoskeletal: Positive for back pain. Negative for gait problem and joint swelling. Skin: Positive for wound. Negative for rash. Neurological: Negative for dizziness, seizures, weakness, numbness and headaches. Hematological: Bruises/bleeds easily. Psychiatric/Behavioral: Negative for agitation and confusion. The patient is not nervous/anxious. All other systems reviewed and are negative. Objective: Vitals: 06/17/19 1102 Pulse: 57 SpO2: 99% Weight: 208 lb (94.3 kg) Height: 5' 3.5 (1.613 m) Body mass index is 36.27 kg/m??. Physical Exam Constitutional: Appearance: Normal appearance. She is well-developed. HENT: Head: Normocephalic and atraumatic. Cardiovascular: Rate and Rhythm: Normal rate. Pulses: Dorsalis pedis pulses are 2+ on the right side and 2+ on the left side. Posterior tibial pulses are 2+ on the right side and 2+ on the left side. Pulmonary: Effort: Pulmonary effort is normal. Musculoskeletal: Right foot: Normal range of motion. No tenderness, swelling, crepitus or deformity. Left foot: Normal range of motion. No tenderness, swelling, crepitus or deformity. Feet: Skin: General: Skin is warm and dry. Coloration: Skin is not pale. Findings: No erythema or rash. Neurological: Mental Status: She is alert and oriented to person, place, and time. Sensory: No sensory deficit. Psychiatric: Behavior: Behavior normal. Thought Content: Thought content normal. Judgment: Judgment normal. Patient gives verbal permission for this provider to take a picture of both great toes in order to document in the patient record. The patient is aware that no data is stored anywhere except for [employer]. This permission was witnessed by Note written by CEASAR Quintana acting as scribe for Nikolas Jha DPM. Assessment and Plan: Juany was seen today for toe pain. Diagnoses and all orders for this visit: Ingrown toenail of both feet Pain in toes of both feet Actually making great progress. No signs of infection or complication, healing. DC betadine solution Dispensed silvadene cream Band-aid through the day. 60% healed Return in about 6 weeks (around 07/29/2019), or if symptoms worsen or fail to improve. Note written by CEASAR Quintana acting as scribe for Nikolas Jha DPM. I have reviewed this note and it accurately reflects my work and decisions made during this visit Nikolas Jha DPM. documented in this encounter Miscellaneous Notes * Patient Instructions - Elissa Staples ABR-OE - 06/17/2019 10:45 AM EST Images from the original note were not included. Patient Education Ingrown Toenail An ingrown toenail occurs when the corner or sides of a toenail grow into the surrounding skin. This causes discomfort and pain. The big toe is most commonly affected, but any of the toes can be affected. If an ingrown toenail is not treated, it can become infected. What are the causes? This condition may be caused by: ?? Wearing shoes that are too small or tight. ?? An injury, such as stubbing your toe or having your toe stepped on. ?? Improper cutting or care of your toenails. ?? Having nail or foot abnormalities that were present from (congenital abnormalities), such as having a nail that is too big for your toe. What increases the risk? The following factors may make you more likely to develop ingrown toenails: ?? Age. Nails tend to get thicker with age, so ingrown nails are more common among older people. ?? Cutting your toenails incorrectly, such as cutting them very short or cutting them unevenly. An ingrown toenail is more likely to get infected if you have: ?? Diabetes. ?? Blood flow (circulation) problems. What are the signs or symptoms? Symptoms of an ingrown toenail may include: ?? Pain, soreness, or tenderness. ?? Redness. ?? Swelling. ?? Hardening of the skin that surrounds the toenail. Signs that an ingrown toenail may be infected include: ?? Fluid or pus. ?? Symptoms that get worse instead of better. How is this diagnosed? An ingrown toenail may be diagnosed based on your medical history, your symptoms, and a physical exam. If you have fluid or blood coming from your toenail, a sample may be collected to test for the specific type of bacteria that is causing the infection. How is this treated? Treatment depends on how severe your ingrown toenail is. You may be able to care for your toenail at home. ?? If you have an infection, you may be prescribed antibiotic medicines. ?? If you have fluid or pus draining from your toenail, your health care provider may drain it. ?? If you have trouble walking, you may be given crutches to use. ?? If you have a severe or infected ingrown toenail, you may need a procedure to remove part or allof the nail. Follow these instructions at home: Foot care ?? Do not pick at your toenail or try to remove it yourself. ?? Soak your foot in warm, soapy water. Do this for 20 minutes, 3 times a day, or as often as told by your health care provider. This helps to keep your toe clean and keep your skin soft. ?? Wear shoes that fit well and are not too tight. Your health care provider may recommend that youwear open-toed shoes while you heal. ?? Trim your toenails regularly and carefully. Cut your toenails straight across to prevent injury to the skin at the corners of the toenail. Do not cut your nails in a curved shape. ?? Keep your feet clean and dry to help prevent infection. Medicines ?? Take scrv-inm-oynwmrc and prescription medicines only as told by your health care provider. ?? If you were prescribed an antibiotic, take it as told by your health care provider. Do not stop taking the antibiotic even if you start to feel better. Activity ?? Return to your normal activities as told by your health care provider. Ask your health care provider what activities are safe for you. ?? Avoid activities that cause pain. General instructions ?? If your health care provider told you to use crutches to help you move around, use them as instructed. ?? Keep all follow-up visits as told by your health care provider. This is important. Contact a health care provider if: ?? You have more redness, swelling, pain, or other symptoms that do not improve with treatment. ?? You have fluid, blood, or pus coming from your toenail. Get help right away if: ?? You have a red streak on your skin that starts at your foot and spreads up your leg. ?? You have a fever. Summary ?? An ingrown toenail occurs when the corner or sides of a toenail grow into the surrounding skin. This causes discomfort and pain. The big toe is most commonly affected, but any of the toes can be affected. ?? If an ingrown toenail is not treated, it can become infected. ?? Fluid or pus draining from your toenail is a sign of infection. Your health care provider may need to drain it. You may be given antibiotics to treat the infection. ?? Trimming your toenails regularly and properly can help you prevent an ingrown toenail. This information is not intended to replace advice given to you by your health care provider. Make sure you discuss any questions you have with your health care provider. Document Released: 05/09/2001 Document Revised: 01/28/2018 Document Reviewed: 01/28/2018 [employer] Interactive Patient Education ?? 2019 [employer]. documented in this encounter Plan of Treatment Upcoming Encounters Date Type Department Care Team (Late st Contact Info) Description 05/24/2024 10:30 AM EST Office Visit [facility] [address] [place] [phone] Nikolas Jha, [address] [place] [address] [place] [phone] documented as of this encounter Goals Goal Patient Goal Type Associated Problems Recent Progress Patient-Stated? Author Breast Health Breast Health On track( 021 9:11 AM EDT) Maisha Anderson, RN Note: Patient will be compliant with monthly Self Breast Exams and is aware of to who to contact for any unusual or concerning findings. documented as of this encounter Visit Diagnoses Diagnosis Ingrown toenail of both feet- Primary Pain in toes of both feet documented in this encounter Additional Health Concerns Assessment Noted Time A fall risk assessment has been complete d for the patient 04/26/2019 3:55 PM EST documented as of this encounter Care Teams Jig Builder Helper Relationship Specialty Start Date End Date Carlos Manuel Barragan [address] [facility] [address] [place] [address] PCP - General 07/03/10 documented as of this encounter
--- OUTSIDE RECORDS SUMMARY | 2024-05-04 22:53 | XMS_ITS | Encounter Summary ---
Author Organization [place] [address] Care Team Providers Care Boiler Helper Name Role Phone Carlos Manuel Barragan Primary Care Provider [phone] Reason for Visit * Reason Comments Wound Check follwo up from nail sx Encounter Details Date Type Department Care Team (Late st Contact Info) Description 05/10/2019 10:30 AM EST Office Visit [facility] [address] [place] [phone] Nikolas Jha, [facility] [address] [place] [address] [place] [phone] Cellulitis of toe of left foot (Primary Dx); Ingrown toenail of both feet; Pain in toes of both feet Social [...] - - Weight 94.3 kg (208 lb) 05/10/2019 12:04 PM EST Height 161.3 cm (5' 3.5 ) 05/10/2019 12:04 PM ES T Body Mass Index 36.27 05/10/2019 12:04 PM EST documented in this encounter Functional [...] Mitzi Jimenez APRN documented in this encounter Ordered Prescriptions Prescription Sig Dispense Quantity Refills Last Filled Start Date End Date doxycycline (MONODOX) 100 mg Oral CapsuleIndications: Cellulitis of toe of left foot Take 1 Cap by mouth 2 times daily for 10 days. 20 Cap 05/11/2019 05/21/2019 doxycycline (MONODOX) 100 mg Oral CapsuleIndications: Cellulitis of toe of left foot Take 1 Cap by mouth 2 times daily for 10 days. 20 Cap 05/10/2019 05/11/2019 documented in this encounter Progress Notes * Nikolas Jha DPM - 05/10/2019 10:30 AM EST Images from the original note were not included. Subjective: Patient ID: Juany Alarcon is a 69 y.o. female. Chief Complaint: Wound Check (follwo up from nail sx) HPI Follow-up for nail sx of both great toes. She has had throbbing and burning. The left great toe is more symptomatic, more painful. Started a few days ago. Did have significant pain immediately postoperative. Burning and throbbing pain. Gradual onset, seems to be worsening especially left great toe. Increased pain with increased walking and standing and shoes. Past Medical History: Diagnosis Date ??? Anemia [...] Damon MD; Location: [facility]; Service: Plastics ??? BREAST REDUCTION SURGERY Right 11/16/2015 Surgeon: Flaco Damon MD; Location: [facility]; Service: Plastics ??? BREAST SURGERY Left 06/02/2015 BREAST RECONSTRUCTION 1ST STAGE WITH EXPANDERS ; Surgeon: Flaco Damon MD; Location: [facility]; Service: General ??? CARPAL TUNNEL RELEASE Bilateral 02/12/2018 BILATERAL CARPAL TUNNEL RELEASE ; Surgeon: Francisco Javier Lepe MD; Location: [facility]; Service: Hand ??? CHOLECYSTECTOMY ??? COLONOSCOPY ??? DENTAL SURGERY wisdom teeth extracted ??? FOOT SURGERY Left 10/05/2010 hammertoes ??? HIP SURGERY 2009 right total ??? KNEE SURGERY 2008 right TKR ??? TONSILLECTOMY ??? TOTAL KNEE ARTHROPLASTY Left 09/29/2018 LEFT TOTAL KNEE ARTHROPLASTY; Surgeon: Brian Newman MD; Location: [facility]; Service: Orthopedics Family History Problem [...] Outpatient Medications Marked as Taking for the 05/10/19 encounter (Office Visit) with Nikolas Jha DPM [...] systems reviewed and are negative. Objective: Vitals: 05/10/19 1204 Weight: 208 lb (94.3 kg) Height: 5' [...] and Plan: Juany was seen today for wound check. Diagnoses and all orders for this visit: Cellulitis of toe of left foot - doxycycline (MONODOX) 100 mg Oral Capsule; Take 1 Cap by mouth 2 times daily for 10 days. Ingrown toenail of both feet Pain in toes of both feet Discontinue peroxide. Continue Silvadene cream and Band-Aid. Doxycycline. If not better next week call. No follow-ups on file. Note written by CEASAR Quintana acting as scribe for Nikolas Jha DPM. I have reviewed this note and it accurately reflects my work and decisions made during this visit Nikolas Jha DPM. documented in this encounter Miscellaneous Notes * Patient Instructions - Kain Staples AYAN-OE - 05/10/2019 10:30 AM EST Patient Education Ingrown Toenail An ingrown toenail [...] to help prevent infection. Medicines ?? Take mfhj-kdm-leumsom and prescription medicines only as told by [...] 05/09/2001 Document Revised: 01/28/2018 Document Reviewed: 01/28/2018 [employer] Interactive Patient Education ?? 2019 [employer] * Addendum Note - Kain Staples ABR-OE - 05/10/2019 10:30 AM ESTAddended by: KAIN STAPLES on: 05/11/2019 08:16 AM Modules accepted: Orders documented in this encounter Plan of Treatment Upcoming Encounters Date Type Department Care Team (Late st Contact Info) Description 05/24/2024 10:30 AM EST Office Visit [facility] [address] [place] [phone] Nikolas Jha [address] [phone] documented as of this encounter Goals Goal Patient Goal Type Associated Problems Recent Progress Patient-Stated? Author Breast Health Breast Health On track( 021 9:11 AM EDT) Maisha Anderson RN Note: Patient will be compliant with monthly Self Breast Exams and is aware of to who to contact for any unusual or concerning findings. documented as of this encounter Visit Diagnoses Diagnosis Cellulitis of toe of left foot- Primary Cellulitis and abscess of toe, unspecified Ingrown toenail of both feet Pain in toes of both feet documented in this encounter Additional Health Concerns Assessment Noted Time A fall risk assessment has been complete d for the patient 04/26/2019 3:55 PM EST documented as of this encounter Care Teams Boiler Helper Relationship Specialty Start Date End Date Carlos Manuel Barragan [address] [place] [address] PCP - General 07/03/10 documented as of this encounter
--- OUTSIDE RECORDS SUMMARY | 2024-05-04 22:53 | XMS_ITS | Encounter Summary ---
Author Organization [place] [address] Care Team Providers Care Tube Worker Name Role Phone Carlos Manuel Barragan Primary Care Provider [phone] Reason for Visit * Reason Comments Ingrown Toenail follow up total nail removal b/l great toes Encounter Details Date Type Department Care Team (Late st Contact Info) Description 08/05/2019 11:15 AM EDT Office Visit [facility] [address] [place] [phone] Nikolas Jha, [address] [place] [phone] Ingrown toenail of both feet (Primary Dx); Hallux valgus with bunions of left foot; Hammer toe of right foot Social History Tobacco Use [...] - - Weight 91.6 kg (202 lb) 08/05/2019 11:07 AM EDT Height 161.3 cm (5' 3.5 ) 08/05/2019 11:07 AM ED T Body Mass Index 35.22 08/05/2019 11:07 AM EDT documented in this encounter Functional [...] Progress Notes * Nikolas Jha DPM - 08/05/2019 11:15 AM EDT Images from the original note were not included. Subjective: Patient ID: Juany Alarcon is a 69 y.o. female. Chief Complaint: Ingrown Toenail (follow up total nail removal b/l great toes ) HPI 69 y.o. female is a follow-up for nail sx of both great toes. No pain. Happy with the results. Past Medical History: Diagnosis Date ??? Anemia [...] SYMMETRY ; Surgeon: Flaco Damon MD; Location: [facility]; Service: Plastics ??? BREAST REDUCTION SURGERY Right 11/16/2015 Surgeon: Flaco Damon MD; Location: [facility]; Service: Plastics ??? BREAST SURGERY Left 06/02/2015 BREAST RECONSTRUCTION 1ST STAGE WITH EXPANDERS ; Surgeon: Flaco Damon MD; Location: [facility]; Service: General ??? CARPAL TUNNEL RELEASE Bilateral 02/12/2018 BILATERAL CARPAL TUNNEL RELEASE ; Surgeon: Francisco Javier Lepe MD; Location: [facility]; Service: Hand ??? CHOLECYSTECTOMY ??? COLONOSCOPY ??? DENTAL SURGERY wisdom teeth extracted ??? FOOT SURGERY Left 10/05/2010 hammertoes ??? HIP SURGERY 2009 right total ??? KNEE SURGERY 2008 right TKR ??? TONSILLECTOMY ??? TOTAL KNEE ARTHROPLASTY Left 09/29/2018 LEFT TOTAL KNEE ARTHROPLASTY; Surgeon: Brian Newman MD; Location: [facility]; Service: Orthopedics Current Outpatient Medications Medication Sig Dispense Refill [...] Reported on 10/20/2018) 20 Tab 0 ??? oxyCODONE (ROXICODONE) 5 mg Oral Tablet Take 1-2 Tabs by mouth every 4-6 hours as needed (Patient not taking: Reported on 07/15/2019) 30 Tab 0 ??? traMADol (ULTRAM) 50 mg Oral Tablet Take 1-2 Tabs by mouth every 6-8 hours as needed (Patient not taking: Reported on 10/20/2018) 40 Tab 0 No current facility-administered medications for this visit. Current Outpatient Medications on File Prior to Visit Medication Sig Dispense Refill ??? anastrozole (ARIMIDEX) [...] Reported on 10/20/2018) 20 Tab 0 ??? oxyCODONE (ROXICODONE) 5 mg Oral Tablet Take 1-2 Tabs by mouth every 4-6 hours as needed (Patient not taking: Reported on 07/15/2019) 30 Tab 0 ??? traMADol (ULTRAM) 50 mg Oral Tablet Take 1-2 Tabs by mouth every 6-8 hours as needed (Patient not taking: Reported on 10/20/2018) 40 Tab 0 No current facility-administered medications on file prior to visit. Outpatient Medications Marked as Taking for the 08/05/19 encounter (Office Visit) with Nikolsa Jha DPM Medication Sig Dispense Refill ??? [...] Tablet Take 10 mg by mouth daily. Allergies Allergen Reactions ??? Morphine Other (See Comments) confusion ??? Penicillins Rash Outpatient Medications Marked as Taking for the 08/05/19 encounter (Office Visit) with Nikolas Jha DPM [...] for nausea and vomiting. Musculoskeletal: Positive for gait problem and joint swelling. Negative for back pain. Skin: Negative for rash and wound. Neurological: Negative for dizziness, seizures, weakness, light-headedness, numbness and headaches. Hematological: Does not bruise/bleed easily. Psychiatric/Behavioral: Negative for agitation, behavioral problems and confusion. The patient is not nervous/anxious. All other systems reviewed and are negative. Objective: Vitals: 08/05/19 1107 Weight: 202 lb (91.6 kg) Height: 5' 3.5 (1.613 m) Body mass index is 35.22 kg/m??. Physical Exam Constitutional: Appearance: Normal appearance. [...] and Plan: Juany was seen today for ingrown toenail. Diagnoses and all orders for this visit: Ingrown toenail of both feet Hallux valgus with bunions of left foot Hammer toe of right foot All healed. We discussed surgical options for her left bunion deformity and right second toe. She is contemplating. Return if symptoms worsen or fail to improve. [...] 10:30 AM EST Office Visit [facility] [address] [place] [phone] Nikolas Jha DPM [address] [place] [phone] documented as of this encounter Goals [...] Diagnosis Ingrown toenail of both feet- Primary Hallux valgus with bunions of left foot Hammer toe of right foot documented in this encounter Additional Health Concerns Assessment Noted Time A fall risk assessment has been complete d for the patient 04/26/2019 3:55 PM EST documented as of this encounter Care Teams Tube Worker Relationship Specialty Start Date End Date Carlos Manuel Barragan [address] [place] [address] [address] [facility] [address] PCP - General 07/03/10 documented as of this encounter
--- OUTSIDE RECORDS SUMMARY | 2024-05-04 22:53 | XMS_ITS | Encounter Summary ---
Author Organization [place] [address] Care Team Providers Care Taxonomy Teacher Name Role Phone Carlos Manuel Barragan Primary Care Provider [phone] Reason for Referral * Mammography (Routine) - Closed Specialty Diagnoses / Procedures Referred By Contac t Referred To Contact Radiology Diagnoses History of breast cancer in female Procedures MM US BREAST LIMITED RIGHT Dany Crouch MD [address] [place] [address] [address] [place] [address] Phone: tel: fax: Referral ID Status Reason Start Date Expiration Date Visits Re quested Visits Authorized [id number] Closed 03/10/2019 03/10/2021 1 1 Reason for Visit * Mammography (Routine) - Closed Specialty Diagnoses / Procedures Referred By Contniurka t Referred To Contact Radiology Diagnoses History of breast cancer in female Procedures MM US BREAST LIMITED RIGHT Dany Crouch MD [address] [place] [address] [place] [address] Phone: tel: fax: Referral ID Status Reason Start Date Expiration Date Visits Re quested Visits Authorized [id number] Closed 03/10/2019 03/10/2021 1 1 Encounter Details Date Type Department Care Team (Latest Contact Info) Description 03/23/2019 1:06 PM EDT - 03/23/2019 11:59 PM EDT Hospital Encounter [facility] [place] [address] Dany Crouch MD [address] [facility] [address] [place] [address] History of breast cancer in female Discharge [...] of Assessment Author No 06/03/2015 1:49 PM Mtizi Jimenez APRN documented as of this encounter [...] 10:30 AM EST Office Visit [facility] [place] [address] [place] [address] [place] [phone] Nikolas Jha DPM [address] [facility] [facility] [address] [place] [phone] documented as of this encounter Goals Goal Patient Goal Type Associated Problems Recent Progress Patient-Stated? Author [facility] On track( 021 9:11 AM EDT) No Maisha Kirk, RN Note: Patient will be compliant with monthly Self Breast Exams and is aware of to who to contact for any unusual or concerning findings. documented as of this encounter Procedures Procedure Name Priority Date/Time Associated Diagnosis Comments MM US BREAST LIMITED RIGHT Routine 03/23/2019 1:11 PM EDT History of breast cancer in female documented in this encounter Results * MM US BREAST LIMITED RIGHT (03/23/2019 1:11 PM EDT) Anatomical Region Laterality Modality Breast Right Ultrasound 03/23/2019 1:31 PM EDT Impressions 03/23/2019 1:31 PM EDT Negative ??([id number]) No focal sonographic abnormality is identified in the region of pain indicated by the patient. As imaging fails to explain the patient's symptoms, management is recommended as based on clinical grounds. Screening right mammography is also recommended in one year. ~ RECOMMENDATION: Manage patient on clinical basis. Routine screening mammogram in 1 year. Findings and recommendations were discussed with the patient at the conclusion of the exam by Dr. Kapadia. ~ DISCLAIMER * Any patient with a [...] next mammogram. Narrative 03/23/2019 1:31 PM EDT Procedure:MM US BREAST LIMITED RIGHT ~ Z85.3-Personal history of malignant neoplasm of [id number]; 68-year-old female with history of left breast cancer and left mastectomy in 2016 presents with approximately 6 week history of regional pain in the right axilla, superior right breast, and right upper chest. ~ MM US BREAST LIMITED RIGHT ~ Prior study comparison: Compared with prior studies the most recent being diagnostic right mammography from 03/23/2019 Targeted scanning of the right axilla and right superior breast/chest was performed in the region of patient reported pain. No mass, cyst, or suspicious shadowing is identified in this region. ~ Procedure Note See Kapadia MD - 03/23/2019 Procedure:MM US BREAST LIMITED RIGHT ~ Z85.3-Personal history of malignant neoplasm of [id number]; 68-year-old female with history of left breast cancer and leftmastectomy in 2016 presents with approximately 6 week history of regional pain inthe right axilla, superior right breast, and right upper chest. ~ MM US BREAST LIMITED RIGHT ~ Prior study comparison: Compared with prior studies the most recentbeing diagnostic right mammography from 03/23/2019 Targeted scanning of the right axilla and right superior breast/chestwas performed in the region of patient reported pain. No mass, cyst, or suspicious shadowing is identified in this region. ~ IMPRESSION: Negative ([id number]) No focal sonographic abnormality is identified in the region of pain indicated by the patient. As imaging fails to explain the patient's symptoms, management is recommended as based on clinical grounds.Screening right mammography is also recommended in one year. ~ RECOMMENDATION: Manage patient on clinical basis. Routine screening mammogram in 1 year. Findings and recommendations were discussed with the patient at the conclusion of the exam by Dr. Kapadia. ~ DISCLAIMER * Any patient with a [...] documented as of this encounter Care Teams Taxonomy Teacher Relationship Specialty Start Date End Date Carlos Manuel Barragan [address] [place] [address] [address] [place] [address] PCP - General 07/03/10 documented as of this encounter
--- OUTSIDE RECORDS SUMMARY | 2024-05-04 22:53 | XMS_ITS | Encounter Summary ---
Author Organization [place] [address] Care Team Providers Care Interactive Producer Name Role Phone Carlos Manuel Barragan Primary Care Provider [phone] Reason for Visit * Reason Onset Date Comments Other 03/05/2019 Encounter Details Date Type Department Care Team (Late st Contact Info) Description 03/05/[address] [facility] [address] Talia Akers RN Other Social History Tobacco Use Types [...] No 06/03/2015 1:49 PM Mitzi Jimenez stephon Trejo, INDUSTRIAL ENGINEERING TECHNOLOGIST * Because of a physical, mental or [...] encounter Miscellaneous Notes * Telephone Encounter - Maria Antonia Loredo RN - 03/10/2019 3:32 PM EDT Pt has appointments on 03/23/19 for imaging and to see a provider. * Telephone Encounter - Alexia Kim RN - 03/09/2019 3:36 PM EDT Patient returned call and LM. Attempted contact. LM on vmail for patient to return call to at [phone] regarding right chyna breast pain. * Telephone Encounter - Alexia Kim RN - 03/09/2019 9:53 AM EDT Attempted contact. LM for patient to call NN at [phone]. NN to follow. * Telephone Encounter - Maria Antonia Loredo RN - 03/08/2019 9:43 AM EDT Patient left a message stating she is having pain above her breast and pain in her arm. Attempted to contact her to assess her pain and help her get scheduled. LM for call back. * Telephone Encounter - Talia Akers RN - 03/05/2019 11:59 AM EDT Patient left a message stating she is having pain above her breast and pain in her arm. Attempted to contact her to assess her pain and help her get scheduled. LM for a return call. documented in this encounter Plan of Treatment Upcoming Encounters Date Type Department Care Team (Late st Contact Info) Description 05/24/2024 10:30 AM EST Office Visit [facility] [address] [place] [phone] [address] Jha [address] [place] [phone] documented as of this encounter Goals [...] documented as of this encounter Care Teams Interactive Producer Relationship Specialty Start Date End Date Carlos Manuel Barragan [address] [facility] [address] [facility] [place] [address] PCP - General 07/03/10 documented as of this encounter
--- OUTSIDE RECORDS SUMMARY | 2024-05-04 22:53 | XMS_ITS | Encounter Summary ---
Author Organization [place] [address] Care Team Providers Care Vp Ad Products And Planning Name Role Phone Carlos Manuel Barragan Primary Care Provider [phone] Reason for Visit * Reason Onset Date Comments Other 05/31/2019 ingrown Encounter Details Date Type Department Care Team (Late st Contact Info) Description 05/31/2019 Telephone [facility] [address] [phone] Igor Moreno, AYAN-ROLAND Other (ingrown ) Social History Tobacco Use Types Packs/Day [...] Author No 06/03/2015 1:49 PM Mitzi Jimenez, DIRECTOR [employer]CHO[employer] NURSING * Because of a physical, mental or emotional condition, does this person have difficulty doing errands alone such as visiting a doctor's office or shopping? Answer Date of Assessment Author No 06/03/2015 1:49 PM Mitzi JimenezHAMN documented as of this encounter Mental Status * Because of a physical, mental or emotional condition, does this person have serious difficulty concentrating, remembering or making decisions? Answer Entry Date Author No 06/03/2015 1:49 PM Mitzi Jimneez CAMPBELL Trejo documented in this encounter Miscellaneous Notes * Telephone Encounter - Merle Oropeza CCMA - 05/31/2019 10:12 AM EST I called and asked the patient to send a picture of her toe on mychart so that we can rule out infection. Patient understood. Merle PETERSEN * Telephone Encounter - Igor Moreno ABR-OE - 05/31/2019 9:51 AM EST Patient called stating she had her toenails removed on Friday April 26, 2019 she is still having quite a bit of pain. Patient stated does she need to come in? Please advise. documented in this encounter Plan of Treatment Upcoming Encounters Date Type Department Care Team (Late st Contact Info) Description 05/24/2024 10:30 AM EST Office Visit [facility] [address] [place] [phone] Nikolas Jha DPM [address] [place] [address] [address] [place] [phone] documented as of this encounter Goals [...] documented as of this encounter Care Teams Vp Ad Products And Planning Relationship Specialty Start Date End Date Carlos Manuel Barragan [address] [place] [address] [address] [place] [address] PCP - General 07/03/10 documented as of this encounter
--- OUTSIDE RECORDS SUMMARY | 2024-05-04 22:53 | XMS_ITS | Encounter Summary ---
Author Organization [place] [address] Care Team Providers Care Cco Name Role Phone Carlos Manuel Barragan Primary Care Provider [phone] Reason for Visit * Reason Onset Date Comments Toe Pain 06/03/2019 Encounter Details Date Type Department Care Team (Late st Contact Info) Description 06/03/2019 Telephone [facility] [place] [address] [place] [address] Nikolas Jha DPM [address] [phone] Toe Pain Social History Tobacco Use Types Packs/Day Years [...] Assessment Author No 06/03/2015 1:49 PM EST Gianni, M stephon A, GEOSCIENCE TECHNICIAN * Is the person blind or [...] PM TRISTIAN Mitzi Archersa Neil APRN documented as of this encounter Mental Status * Because of a physical, mental or emotional condition, does this person have serious difficulty concentrating, remembering or making decisions? Answer Entry Date Author No 06/03/2015 1:49 PM TRISTIAN Mitzi Archer stephon Trejo APRN documented in this encounter Miscellaneous Notes * Telephone Encounter - Merle Oropeza CCMA - 06/07/2019 8:22 AM EST called Patient. Merle PETERSEN * Telephone Encounter - Joleen Pa ABR-OE - 06/03/2019 10:45 AM EST Patient is unable to still send a picture through my chart and asking what he would like for her todo. She had someone already tried to help her with this and still unable to do this. She stated shehas peeled a little yellowness from her thinking this may be infection. Then it has bleed some. Please advise documented in this encounter Plan of Treatment Upcoming Encounters Date Type Department Care Team (Late st Contact Info) Description 05/24/2024 10:30 AM EST Office Visit [facility] [address] [address] Nikolas Jha, DPM [address] [facility] [address] [place] [address] documented as of this encounter [...] documented as of this encounter Care Teams Cco Relationship Specialty Start Date End Date Carlos Manuel Barragan [address] [facility] [address] [place] [id number] PCP - General 07/03/10 documented as of this encounter
--- OUTSIDE RECORDS SUMMARY | 2024-05-04 22:53 | XMS_ITS | Encounter Summary ---
Author Organization [place] [address] Care Team Providers Care Policy Service Coordinator Name Role Phone Carlos Manuel Barragan Primary Care Provider [phone] Reason for Visit * Reason Comments Nail Problem bilateral great toen ails thick and discolored * In Office Procedure (Routine) - Closed Specialty Diagnoses / Procedures Referred By Heather santos Referred To Contact Diagnoses Ingrowing left great toenail Ingrown right greater toenail Procedures [place] REMOVAL OF NAIL BED Nikolas Jha DPM [address] [address] Phone: tel: fax: Nikolas Jha DPM [address] [address] Phone: tel: fax: Referral ID Status Reason Start Date Expiration Date Visits Re quested Visits Authorized [id number] Closed 04/26/2019 04/25/2020 1 1 Encounter Details Date Type Department Care Team (Late st Contact Info) Description 04/26/2019 3:00 PM EST Office Visit [facility] [address] [place] [phone] Nikolas Jha DPM [address] [address] [place] [address] Paronychia of toe, unspecified laterality (Primary Dx); Ingrown toenail of both feet; [...] - - Weight 94.3 kg (208 lb) 04/26/2019 4:00 PM EST Height 161.3 cm (5' 3.5 ) 04/26/2019 4:00 PM EST Body Mass Index 36.27 04/26/2019 4:00 PM EST documented in this encounter Functional [...] Mitzi Archer APRN documented in this encounter Progress Notes * Nikolas Jha, SURENDRA - 04/26/2019 3:00 PM EST Images from the original note were not included. Subjective: Patient ID: Juany Alarcon is a 69 y.o. female. Chief Complaint: Nail Problem (bilateral great toenails thick and discolored) HPI Follow-up for bilateral great toenails, chronically ingrown and painful thick and discolored. Left great toenail hurts the worse. Patient asked to have the toenails removed. Past Medical History: Diagnosis Date ??? Anemia [...] SYMMETRY ; Surgeon: Flaco Damon MD; Location: [facility]; Service: Plastics ??? BREAST REDUCTION SURGERY Right 11/16/2015 Surgeon: Flaco Damon MD; Location: [facility]; Service: Plastics ??? BREAST SURGERY Left 06/02/2015 BREAST RECONSTRUCTION 1ST STAGE WITH EXPANDERS ; Surgeon: Flaco Damon MD; Location: [facility]; Service: General ??? CARPAL TUNNEL RELEASE Bilateral 02/12/2018 BILATERAL CARPAL TUNNEL RELEASE ; Surgeon: Francisco Javier Lepe MD; Location: [facility]; Service: Hand ??? CHOLECYSTECTOMY ??? [...] Outpatient Medications Marked as Taking for the 04/26/19 encounter (Office Visit) with Nikolas Jha DPM [...] wound. Neurological: Negative for dizziness, seizures, weakness, numbness and headaches. Hematological: Bruises/bleeds easily. Psychiatric/Behavioral: Negative for agitation and confusion. The patient is not nervous/anxious. All other systems reviewed and are negative. Objective: Vitals: 04/26/19 1600 Weight: 208 lb (94.3 kg) Height: 5' [...] and Plan: Juany was seen today for nail problem. Diagnoses and all orders for this visit: Paronychia of toe, unspecified laterality - [place] REMOVAL OF NAIL BED Ingrown toenail of both feet - [place] REMOVAL OF NAIL BED Pain in toes of both feet - [place] REMOVAL OF NAIL BED Recommended total matrixectomy bilateral great toes. Discussed procedure, post-op course, potential benefits and risks, all questions answered, no guarantees made. Involved toes were anesthetized via digital block with 3ml of a 1:1 mixture of 0.5% marcaine plain and 2% lidocaine plain. Toe tourniquets applied. Entire bilateral great toenail excised, nail bed debris removed with a curette. Chemical matricectomy carried out with application of phenolx3, 30 seconds each application. Flushed with alcohol, toe tourniquets removed, brisk cap refill noted. DSD applied. Tolerated well, after monitoring for a short period patient was discharged home with oral and written instructions. Dispensed silvadene cream. Return in about 2 weeks (around 05/10/2019), or if symptoms worsen or fail to improve, for post op visit. Note written by CEASAR Quintana acting as scribe for Nikolas Jha DPM. I have reviewed this note and it accurately reflects my work and decisions made during this visit Nikolas Jha DPM. documented in this encounter Miscellaneous Notes * Patient Instructions - Elissa Staples ABR-OE - 04/26/2019 3:00 PM EST INSTRUCTIONS FOLLOWING PARTIAL NAIL SURGERY Today 1. Go directly home and elevate your foot (feet). 2. Restrict your activity somewhat 3. Some bleeding through the bandage is normal and expected. If bleeding continues or is excessive,please call. 4. Keep bandages clean and dry. Tomorrow 1. As directed, remove bandages. Clean surgical site (s) with ?? strength peroxide. Dry with Q-tip.Apply antibiotic and cover with a Band-Aid. Do this once a day until you return for your next visitin two weeks. 2. Unless otherwise directed, you are allowed activities to your tolerance. Remember, a tight shoe might make the toe sore and should be avoided. Additional 1. Anesthesia may last for 3 to 6 hours. 2. You might experience some discomfort. If so, elevate your foot (feet). Apply an ice bag to the foot (feet) for 30 minutes out of every hour. Take Tylenol or Advil or prescribed medication as directed. If pain persists, please call. 3. If any problems arise, please call. documented in this encounter Plan of Treatment Upcoming Encounters Date Type Department Care Team (Late st Contact Info) Description 05/24/2024 10:30 AM EST Office Visit [facility] [place] [address] [place] [address] Nikolas Jha, DPMitzi [address] [facility] [address] [place] [address] Scheduled Orders Name Type Priority Associated Diagnoses Orde r Schedule [place] REMOVAL OF NAIL BED [place] Charge Routine Paronychia of toe, unspecified laterality Ingrown Toenail Of Both Feet Pain in toes of both feet Ordered: 04/26/2019 documented as of this encounter Goals Goal Patient Goal Type Associated Problems Recent Progress Patient-Stated? Author Breast Health Breast Health On track( 021 9:11 AM EDT) No Maisha Kirk, RN Note: Patient will be compliant with monthly Self Breast Exams and is aware of to who to contact for any unusual or concerning findings. documented as of this encounter Visit Diagnoses Diagnosis Paronychia of toe, unspecified laterality- Primary Ingrown toenail of both feet Pain in toes of both feet documented in this encounter Historical Medications * This list may reflect changes made after this encounter. gabapentin (NEURONTIN) 100 mg Oral Capsule 300 mg. 1 04/19/2019 03/16/2024 added in this encounter Additional Health Concerns Assessment Noted Time A fall risk assessment has been complete d for the patient 04/26/2019 3:55 PM EST documented as of this encounter Care Teams Policy Service Coordinator Relationship Specialty Start Date End Date Carlos Manuel Barragan [address] [place] [address] PCP - General 07/03/10 documented as of this encounter
--- OUTSIDE RECORDS SUMMARY | 2024-05-04 22:53 | XMS_ITS | Encounter Summary ---
Author Organization [place] [address] Care Team Providers Care Mixer Machine Feeder Name Role Phone Carlos Manuel Barragan Primary Care Provider Reason for Referral * Mammography (Routine) - Closed Specialty Diagnoses / Procedures Referred By Contac t Referred To Contact Radiology Diagnoses History of breast cancer in female Procedures MM US BREAST LIMITED RIGHT Dany Crouch MD [address] [place] [address] Phone: tel: fax: Referral ID Status Reason Start Date Expiration Date Visits Re quested Visits Authorized [id number] Closed 03/10/2019 03/10/2021 1 1 * Mammography (Routine) - Closed Specialty Diagnoses / Procedures Referred By Contac t Referred To Contact Radiology Diagnoses History of breast cancer in female Procedures MM MAMMO DIGITAL VANNESA DIAGN RIGHT Dany Crouch MD [address] [place] [address] Phone: tel: fax: Referral ID Status Reason Start Date Expiration Date Visits Re quested Visits Authorized [id number] Closed 03/10/2019 03/10/2021 1 1 Reason for Visit * Reason Onset Date Comments Orders 03/10/2019 Encounter Details Date Type Department Care Team (Late st Contact Info) Description 03/10/2019 Telephone [facility] Women's Wellness [place] [address] Cheri Reyes Orders Social History Tobacco Use Types Packs/Day Years [...] Mitzi Jimenez APRN documented in this encounter Miscellaneous Notes * Telephone Encounter - Maisha Prater RN - 03/10/2019 2:54 PM EDT Chart opened to place order. * Telephone Encounter - Cheri Reyes - 03/10/2019 2:50 PM EDT Last mammogram was May 2018, patient has new right breast pain going into underarm. Hx of left breast cancer; mastectomy 2016. Can you put order in for right breast mammo and right breast u/s? documented in this encounter Plan of Treatment Upcoming Encounters Date Type Department Care Team (Late st Contact Info) Description 05/24/2024 10:30 AM EST Office Visit [facility] [address] [place] [phone] Nikolas Jha, [address] [place] [phone] documented as of this encounter Goals Goal Patient Goal Type Associated Problems Recent Progress Patient-Stated? Author Breast Health Breast Health On track( 021 9:11 AM EDT) No Maisha Kirk, CRISTOBAL Note: Patient will be compliant with monthly Self Breast Exams and is aware of to who to contact for any unusual or concerning findings. documented as of this encounter Results * MM US BREAST LIMITED RIGHT (03/23/2019 1:11 PM EDT) Anatomical Region Laterality Modality Breast Right Ultrasound 03/23/2019 1:31 PM EDT Impressions 03/23/2019 1:31 PM EDT Negative ??(MCI-Gfywkwxf-2) No focal sonographic abnormality is identified in [...] ~ Z85.3-Personal history of malignant neoplasm of rnolyq-VYF-28-CM; 68-year-old female with history of left breast [...] ~ Z85.3-Personal history of malignant neoplasm of ihiemt-GFE-98-CM; 68-year-old female with history of left breast [...] identified in this region. ~ IMPRESSION: Negative (PKR-Jnwdtudc-2) No focal sonographic abnormality is identified in [...] Crouch MD IMG MAMMOGRAPHY ORDERABLES Final Result * MM MAMMO DIGITAL VANNESA DIAGN RIGHT (03/23/2019 12:58 PM EDT) Anatomical Region Laterality Modality Breast Right Mammography 03/23/2019 1:31 PM EDT Impressions 03/23/2019 1:31 PM EDT Incomplete-need additional imaging evaluation (BTU-Ebzitodx-2) No suspicious mammographic abnormality is identified in [...] weeks. Z85.3-Personal history of malignant neoplasm of svzqxa-DEQ-89-CM; 68-year-old female with history of left breast [...] weeks. Z85.3-Personal history of malignant neoplasm of vgbney-LCZ-81-CM; 68-year-old female with history of left breast [...] breast. ~ IMPRESSION: Incomplete-need additional imaging evaluation (BEC-Jfkfiswf-0) No suspicious mammographic abnormality is identified in [...] Diagnoses Diagnosis History of breast cancer in female- Primary Personal history of malignant neoplasm of breast History of breast cancer in female Personal history of malignant neoplasm of breast History of breast cancer in female Personal history of malignant neoplasm of breast documented in this encounter Additional Health Concerns Assessment Noted Time A fall risk assessment has been complete d for the patient 07/29/2016 10:44 AM EST documented as of this encounter Care Teams Mixer Machine Feeder Relationship Specialty Start Date End Date Carlos Manuel Barragan [facility] [facility] [facility] [address] [place] [address] PCP - General 07/03/10 documented as of this encounter
--- OUTSIDE RECORDS SUMMARY | 2024-05-04 22:53 | XMS_ITS | Encounter Summary ---
Author Organization [facility] [place] [address] Care Team Providers Care Signal Mechanic Name Role Phone Carlos Manuel Barragan Primary Care Provider [phone] Encounter Details Date Type Department Care Team (Latest Contact Info) Description 07/15/2019 Travel Social History Tobacco Use Types Packs/Day [...] AM EST Office Visit [facility] [address] [place] [phone] Nikolas Jha [address] [place] [phone] documented as of this encounter Goals [...] documented as of this encounter Care Teams Signal Mechanic Relationship Specialty Start Date End Date Carlos Manuel Barragan [address] [facility] [address] [place] [address] PCP - General 07/03/10 documented as of this encounter
--- OUTSIDE RECORDS SUMMARY | 2024-05-04 22:53 | XMS_ITS | Encounter Summary ---
Author Organization [place] [address] Care Team Providers Care Food Packer Name Role Phone Carlos Manuel Barragan Primary Care Provider Reason for Referral * DEXA (Routine) - Closed Specialty Diagnoses / Procedures Referred By Heather santos Referred To Contact Radiology Diagnoses Post-menopausal Encounter for monitoring aromatase inhibitor therapy Malignant neoplasm of left breast in female, estrogen receptor positive, unspecified site of breast (HCC) Procedures DX BONE DENSITY AXIAL SKELETON Caty Moy PA-C [address] [place] [address] Phone: tel: fax: Referral ID Status Reason Start Date Expiration Date Visits Re quested Visits Authorized [id number] Closed 10/20/2018 10/20/2019 1 1 Reason for Visit * DEXA (Routine) - Closed Specialty Diagnoses / Procedures Referred By Heather santos Referred To Contact Radiology Diagnoses Post-menopausal Encounter for monitoring aromatase inhibitor therapy Malignant neoplasm of left breast in female, estrogen receptor positive, unspecified site of breast (HCC) Procedures DX BONE DENSITY AXIAL SKELETON Caty Moy PA-C [address] [place] [address] Phone: tel: fax: Referral ID Status Reason Start Date Expiration Date Visits Re quested Visits Authorized [id number] Closed 10/20/2018 10/20/2019 1 1 Encounter Details Date Type Department Care Team (Latest Contact Info) Description 04/19/2019 11:24 AM EST - 04/19/2019 11:59 PM [facility] Hospital Encounter [facility] DEXA [address] [place] [address] Caty Moy PA-C [address] [place] [address] Post-menopausal; Encounter for monitoring aromatase inhibitor therapy; Malignant neoplasm of left breast in female, estrogen receptor positive, unspecified site of breast (HCC) (HCC) Discharge Disposition: Home or Self Care Social [...] Date Author No 06/03/2015 1:49 PM EST GianniMitzi APRN documented in this encounter Medications at [...] AM EST Office Visit [facility] [address] [place], [place] [address] Nikolas Jha Mitzi [address] [place] [address] [address] [place] [phone] documented as of this encounter Goals [...] Comments DX BONE DENSITY AXIAL SKELETON Routine 04/19/2019 11:39 AM EST Post-menopausal Encounter for monitoring aromatase inhibitor therapy Malignant neoplasm of left breast in female, estrogen receptor positive, unspecified site of breast (HCC) (HCC) documented in this encounter Results * DX BONE DENSITY AXIAL SKELETON (04/19/2019 11:39 AM EST) Anatomical Region Laterality Modality Dexa Scan 04/19/2019 Narrative 04/19/2019 12:39 PM EST Indication: The patient is a post-menopausal female over age 65 with clinical risk factors for an osteoporotic fracture that requires a bone density assessment. Study was performed on Radiance 5. Bone Density: Region ?BMD ? T-score [...] ? 05/17/2016 ?65 ?0.959 ? 0.1 ? 05/28 Forearm(Left) ? 04/19/2019 ?67 ?0.583 ?-1.8 ?-10.4%* [...] hypertrophic change. Reported by: Alexia Verdin PA-C, MMS, CCD on 04/19/2019 12:34:00 PM. Caty Moy PA-C IMG DEXA ORDERABLES Final Res ult documented in this encounter Visit Diagnoses Diagnosis Post-menopausal Asymptomatic postmenopausal status (age-related) (natural) Encounter for monitoring aromatase inhibitor therapy Encounter for therapeutic drug monitoring Malignant neoplasm of left breast in female, estrogen receptor positive, unspecified site of breast (HCC) documented in this encounter Additional Health Concerns Assessment Noted Time A fall risk assessment has been complete d for the patient 07/29/2016 10:44 AM EST documented as of this encounter Care Teams Food Packer Relationship Specialty Start Date End Date Carlos Manuel Barragan [address] [place] [address] [address] [place] [address] PCP - General 07/03/10 documented as of this encounter
--- OUTSIDE RECORDS SUMMARY | 2024-05-04 22:53 | XMS_ITS | Encounter Summary ---
Author Organization [place] [address] Care Team Providers Care Golf Ball Cover Treater Name Role Phone Carlos Manuel Barragan Primary Care Provider [phone] Encounter Details Date Type Department Care Team (Late st Contact Info) Description 07/29/2019 Orders Only [facility] Women's Wellness [place] [address] Caty Moy PA-C [address] [place] [address] [place] [address] Malignant neoplasm of left female breast (HCC) [...] Tab by mouth daily. 90 Tab 3 07/29/2019 07/28/2020 documented in this encounter Plan of Treatment Upcoming Encounters Date Type Department Care Team (Late st Contact Info) Description 05/24/2024 10:30 AM EST Office Visit [facility] [address] [place] [phone] Nikolas Jha Mitzi [address] [place] [address] [address] [place] [phone] documented as of this encounter Goals [...] Oral TabletIndications:Maligna nt neoplasm of left female breast, unspecified site of breast Take 1 Tab by mouth daily. Reorder 04/12/2015 07/29/2019 documented as of this encounter Additional Health Concerns Assessment Noted Time A fall risk assessment has been complete d for the patient 04/26/2019 3:55 PM EST documented as of this encounter Care Teams Golf Ball Cover Treater Relationship Specialty Start Date End Date Carlos Manuel Barragan [address] [place] [address] [address] [facility] [address] PCP - General 07/03/10 documented as of this encounter
--- OUTSIDE RECORDS SUMMARY | 2024-05-04 22:53 | XMS_ITS | Encounter Summary ---
Author Organization [place] [address] Care Team Providers Care Executive Administrative Asst Name Role Phone Carlos Manuel Barragan Primary Care Provider [phone] Reason for Visit * Reason Comments Breast Pain Encounter Details Date Type Department Care Team (Latest Contact Info) Description 03/23/2019 12:41 PM EDT - 03/23/2019 12:43 PM EDT Hospital Encounter [facility] [place] [address] Dany Crouch MD [address] [place] [address] [place] [address] Caty Moy PA-C [address] [place] [address] [place] [address] Breast pain (Primary Dx); History of breast cancer; Bad oral taste Discharge Disposition: Home or Self Care Social [...] Sign Reading Time Taken Comments Blood Pressure 145/85 03/23/2019 1:23 PM EDT Pulse 72 03/23/2019 1:23 PM EDT Temperature 36.9 ??C (98.5 ??F) 03/23/2019 1:23 PM ED T Respiratory Rate 16 03/23/2019 1:23 PM EDT Oxygen Saturation - - Inhaled Oxygen Concentration - - Weight 91.2 kg (201 lb) 03/23/2019 1:23 PM EDT Height - - Body Mass Index 32.44 10/20/2018 10:53 AM EDT documented in this [...] documented in this encounter Progress Notes * Maria Antonia Loredo RN - 03/23/2019 12:43 PM EDT Pt seen in the breast center today for c/o right breast pain. Also c/o weird taste in her mouth and lump in her throat since Jan. States has seen glove machine operator, has cysts on thyroid. Hx left breast mastectomy w/recon. for [facility] 2014. Imaging today, wnl. Caty Moy PA-C in to evaluate pt, CBE. P: Knowledge deficit r/t health and plan G: Educate I: Discussed pt health and symptoms. Discussed pt to call Dr Cleveland, ANTONIO sanchez, for appt, to discuss esophageal scope. Discussed breast pain remedies, pt to try. Return as scheduled, or sooner if needed. Written and verbal instructions given. Emotional support given. * Caty Moy PA-C - 03/23/2019 12:43 PM EDT Images from the original note were not included. Subjective: Ms. Alarcon is here for an urgent visit for a new problem History of Present Illness The patient is a 68 y.o. female who presents with a complaint of new right breast pain in the upperbreast/armpit. She states the pain has been going on for about 6 weeks and it intermittent. She denies anything that makes it better or worse. She has a history of a left breast cancer in 2014 and had a left mastectomy with reconstruction. She also has noted a feeling of a lump in her throat and weird taste in her mouth. She has seen an ENT and was told she has cysts on her thyroid. She has otherwise been feeling at her baseline. HPI Breast cancer (HCC) 01/26/2015 - Other Breast [...] SYMMETRY ; Surgeon: Flaco Damon MD; Location: [facility]; Service: Plastics ??? BREAST REDUCTION SURGERY Right 11/16/2015 Surgeon: Flaco Damon MD; Location: [facility]; Service: Plastics ??? BREAST SURGERY Left 06/02/2015 BREAST RECONSTRUCTION 1ST STAGE WITH EXPANDERS ; Surgeon: Flaco Damon MD; Location: [facility]; Service: General ??? CARPAL TUNNEL RELEASE Bilateral 02/12/2018 BILATERAL CARPAL TUNNEL RELEASE ; Surgeon: Francisco Javier Lepe MD; Location: [facility]; Service: Hand ??? CHOLECYSTECTOMY ??? COLONOSCOPY [...] as needed (Patient not taking: Reported on 03/23/2019) 30 Tab 0 ??? traMADol (ULTRAM) 50 mg Oral Tablet Take 1-2 Tabs by mouth every 6-8 hours as needed (Patient not taking: Reported on 10/20/2018) 40 Tab 0 No current facility-administered medications for this encounter. Allergies Allergen Reactions ??? Morphine Other (See Comments) confusion ??? Penicillins Rash Review of Systems Constitutional: Positive for appetite change (slight decrease due to weird taste in mouth). Negative for activity change, chills, fatigue, fever and unexpected weight change. HENT: Positive for trouble swallowing. Negative for dental problem, ear discharge, hearing loss, nosebleeds, sinus pressure, sore throat and tinnitus. Eyes: Negative for discharge and visual disturbance. Respiratory: Negative for cough, chest tightness, shortness of breath and wheezing. Cardiovascular: Negative for chest pain, palpitations and leg swelling. Gastrointestinal: Negative for abdominal pain, blood in stool, diarrhea, nausea and vomiting. Genitourinary: Negative for difficulty urinating, dysuria, frequency, hematuria, menstrual problem,vaginal bleeding and vaginal discharge. Musculoskeletal: Negative for arthralgias, back pain, joint swelling and neck pain. Skin: Negative for rash. Neurological: Negative for dizziness, syncope, speech difficulty, weakness, light-headedness and headaches. Hematological: Does not bruise/bleed easily. Psychiatric/Behavioral: Negative for agitation, confusion, decreased concentration, sleep disturbance and suicidal ideas. The patient is nervous/anxious. Objective: Vitals: 03/23/19 1323 BP: 145/85 Pulse: 72 Resp: 16 Temp: 98.5 ??F (36.9 ??C) Weight: 201 lb (91.2 kg) Body mass index is 32.44 kg/m??. Physical Exam Vitals signs and nursing note reviewed. Constitutional: Appearance: Normal appearance. She is well-developed and normal weight. HENT: Head: Normocephalic and atraumatic. Neck: Musculoskeletal: Neck supple. Thyroid: No thyroid mass. Cardiovascular: Rate and Rhythm: Normal rate. Pulses: Dorsalis pedis pulses are 2+ on the right side and 2+ on the left side. Pulmonary: Effort: Pulmonary effort is normal. Chest: Breasts: Breasts are symmetrical. Right: Tenderness present. No inverted nipple, mass, nipple discharge or skin change. Left: No mass, skin change or tenderness. Abdominal: General: There is no distension. Palpations: Abdomen is soft. There is no mass. Tenderness: There is no tenderness. Musculoskeletal: General: No tenderness. Lymphadenopathy: Cervical: No cervical adenopathy. Upper Body: Right upper body: No supraclavicular, axillary or pectoral adenopathy. Left upper body: No supraclavicular, axillary or pectoral adenopathy. Skin: General: Skin is warm and dry. Neurological: Mental Status: She is alert and oriented to person, place, and time. Psychiatric: Behavior: Behavior normal. Thought Content: Thought content normal. Judgment: Judgment normal. Assessment and Plan: Juany was seen today for breast pain. Diagnoses and all orders for this visit: Breast pain - FARIDA by exam and imaging; imaging personally reviewed and discussed with radiologist and patient - Continue Arimidex and Vitamin D3 daily - Pt encouraged to continue monthly SBE. - Discussed breast pain is common and can be caused by several factors. Pt advised to decrease caffeine, use a good support bra, and may try Vitamin E or Evening [place] Oil for symptomatic relief. - Discussed importance of diet and exercise for risk reduction and overall health benefits. - will plan to return in October 2019 for follow-up with Dr. Crouch as scheduled. History of breast cancer Bad oral taste - pt encouraged to follow with PCP and GI for further workout of changes in swallowing and taste documented in this encounter Miscellaneous Notes * Patient Instructions - Maria Antonia Loredo RN - 03/23/2019 2:00 PM EDT Return in October for scheduled appointment, or earlier if needed. Call [facility], Dr Cleveland at [phone] to discuss esophageal scope. Use heat and massage to breast area as needed for breast pain. Try evening primrose oil For breast pain, try: Limit caffeine intake Wear good supportive bra during the day; wear sports bra at night Try taking Evening [place] Oil tablets; The dosage 3000 mg daily Continue to take Arimidex daily. Nurse Navigator phone number [phone] documented in this encounter Plan of Treatment Upcoming Encounters Date Type Department Care Team (Late st Contact Info) Description 05/24/2024 10:30 AM EST Office Visit [facility] [place] [address] [place] [address] [place] [phone] Nikolas Jha, [facility] [address] [address] [place] [phone] documented as of this encounter Goals Goal Patient Goal Type Associated Problems Recent Progress Patient-Stated? Author Breast Health Breast Health On track( 021 9:11 AM EDT) Maisha Anderson, CRISTOBAL Note: Patient will be compliant with monthly Self Breast Exams and is aware of to who to contact for any unusual or concerning findings. documented as of this encounter Visit Diagnoses Diagnosis Breast pain- Primary Mastodynia History of breast cancer Personal history of malignant neoplasm of breast Bad oral taste Disturbances of sensation of smell and taste documented in this encounter Additional Health Concerns Assessment Noted Time A fall risk assessment has been complete d for the patient 07/29/2016 10:44 AM EST documented as of this encounter Care Teams Executive Administrative Asst Relationship Specialty Start Date End Date Carlos Manuel Barragan [address] [facility] [address] [place] [address] PCP - General 07/03/10 documented as of this encounter
--- OUTSIDE RECORDS SUMMARY | 2024-05-04 22:53 | XMS_ITS | Encounter Summary ---
Author Organization [place] [address] Care Team Providers Care Roller Pneumatic Name Role Phone Carlos Manuel Barragan Primary Care Provider Reason for Visit * Reason Onset Date Comments Other 07/26/2019 refill arimidex Encounter Details Date Type Department Care Team (Late st Contact Info) Description 07/26/2019 Telephone [facility] [place] [address] Josselin Scott RN Other (refill arimidex) Social History Tobacco Use Types Packs/Day Years [...] Assessment Author No 06/03/2015 1:49 PM EST [place], [place] stehpon A, MARINE CONSULTANT * Does this person have serious difficulty walking or climbing stairs? Answer Date of Assessment Author No 06/03/2015 1:49 PM Mitzi Jimenez Neil MARINE CONSULTANT * Does this person have difficulty dressing or bathing? Answer Date of Assessment Author No 06/03/2015 1:49 PM Mitzi Jimenez Neil, MARINE CONSULTANT * Because of a physical, mental or emotional condition, does this person have difficulty doing errands alone such as visiting a doctor's office or shopping? Answer Date of Assessment Author No 06/03/2015 1:49 PM Mitzi Jimenez MARINE CONSULTANT documented as of this encounter Mental Status * Because of a physical, mental or emotional condition, does this person have serious difficulty concentrating, remembering or making decisions? Answer Entry Date Author No 06/03/2015 1:49 PM Mitzi Jimenez CAMPBELL Trejo documented in this encounter Miscellaneous Notes * Telephone Encounter - Maria Antonia Loredo RN - 07/29/2019 10:20 AM EST Attempted to call pt to let her know Arimidex refill was sent to [facility], for call back. * Telephone Encounter - Maria Antonia Loredo RN - 07/28/2019 11:38 AM EST Connor.E. routed to Caty Moy PA-C for refill. * Telephone Encounter - Cheri Randall RMA - 07/28/2019 11:25 AM EST Patient needs RX sent to [facility] * Telephone Encounter - Maria Antonia Loredo RN - 07/28/2019 10:06 AM EST Attempted to call pt regarding name of new pharmacy for Arimidex refill, for call back. * Telephone Encounter - Maisha Prater RN - 07/27/2019 1:06 PM EST Left VMM for pt tcb regarding med refill and name of new pharmacy. * Telephone Encounter - Josselin Scott RN - 07/26/2019 4:26 PM EST Telephone call from patient requesting refill of arimidex however states she has new pharmacy. Attempted call back, lmam to return call in am regarding medication refill. documented in this encounter Plan of Treatment Upcoming Encounters Date Type Department Care Team (Late st Contact Info) Description 05/24/2024 10:30 AM EST Office Visit [facility] [address] [place] [phone] Nikolas Jha, DPMitzi [address] [place] [address] [address] [place] [phone] documented as of this encounter Goals [...] documented as of this encounter Care Teams Roller Pneumatic Relationship Specialty Start Date End Date Carlos Manuel Barragan [address] [place] [address] PCP - General 07/03/10 documented as of this encounter
--- OUTSIDE RECORDS SUMMARY | 2024-05-04 22:54 | XMS_ITS | Encounter Summary ---
Author Organization [place] [address] Care Team Providers Care Candy Puller Name Role Phone Carlos Manuel Barragan Primary Care Provider [phone] Reason for Visit * Auth/Cert/Inpt Specialty Diagnoses / Procedures Referred By Heather t Referred To Contact Diagnoses Carpal tunnel syndrome on right Carpal tunnel syndrome on left Carpal tunnel syndrome on right [G56.01] Carpal tunnel syndrome on left [G56.02] Procedures [facility] N/CARPAL TUNNEL SURG BILATERAL CARPAL TUNNEL RELEASE Referral ID Status Reason Start Date Expiration Date Visits Re quested Visits Authorized [id number] 1 1 Encounter Details Date Type Department Care Team (Late st Contact Info) Description 02/12/2018 8:45 AM EDT - 02/12/2018 9:15 AM EDT Surgery [facility] [address] [place], [place] [id number] Francisco Javier Lepe MD CARPAL TUNNEL RELEASE BILATERAL Surgery Details Date/Time Status Location OR Service Patient Class Case Class Case Type Trauma Case? 02/12/2018 8:45 AM Posted [facility] 03 Hand Same Day Surgery Elective Panel 1 Procedure LRB Anes Op Region Wound Class Comments CARPAL TUNNEL RELEASE BILATERAL Bilateral Local (Nurse-Monitore d) Clean BILATERAL CARPAL TUNNEL RELEASE Surgeon Surgeon Role Service Panel Francisco Javier Lepe MD Primary Hand 1 Special Needs 01/30/18 KF documented in this encounter Social History Tobacco [...] Sign Reading Time Taken Comments Blood Pressure 141/74 02/12/2018 8:52 AM EDT Pulse 57 02/12/2018 8:52 AM EDT Temperature 36.5 ??C (97.7 ??F) 02/12/2018 8:52 AM ED T Respiratory Rate 16 02/12/2018 8:52 AM EDT Oxygen Saturation 100% 02/12/2018 8:52 AM EDT Inhaled Oxygen Concentration - - Weight 96.2 kg (212 lb) 02/12/2018 7:44 AM EDT Height 167.6 cm (5' 6 ) 01/30/2018 12:29 PM EDT Body Mass Index 34.22 01/30/2018 12:29 PM EDT documented in this encounter Functional [...] Jimenez APRN documented in this encounter Discharge Instructions * Discharge Instructions* Francisco Javier Lepe MD - 02/10/2018 6:19 PM EDT Images from the original note were not included. Hand Surgery Home Care Instructions 1. Check your temperature over the next 5 days and call your physician if greater than 101 degrees F. 2. Notify your physician if you have rash, hives, difficulty breathing, or severe nausea or vomiting. 3. Contact your family physician for questions concerning your current home medications. 4. If physician is unavailable, go to the Emergency Room. 5. If pain intensifies or is unrelieved by resting, elevation and/or prescription pain medicine, call your physician. Additional Instructions 1. Keep the extremity elevated above the level of the heart. 2. Observe your extremity several times a day. A little swelling and discoloration is considered normal. 3. Apply an ice pack to the operative area for comfort. Be sure it is in a leak- proof bag and wrapped in a towel or washcloth. 4. Dressing: -May remove dressing in 2-3 days -After dressing is removed: -Do not soak surgical site in a pool, tub, dishwater etc. until follow up visit. -Lightly wash incision - do not scrub -and pat dry. -If steri-strips are present, do not remove. OK to let water run over, but do not scrub. -Cover site with dry dressing. 5. Follow Hand exercise instructions and hand elevation instructions provided. Call [facility] or go to the emergency room if: -Your bandage is too tight - You notice any unusual redness, bleeding, or drainage. - You have pain not relieved by prescription pain medicine, rest, and elevation. Post-Op Visit: Your post-op visit should be scheduled during your pre-surgical plan. If you are unsure, or you do not have an appointment scheduled, call [facility] [phone] or [phone] Anticoagulation therapy medications: may restart aspirin, Plavix, and Coumadin on the day of surgery. Patient or Responsible Republican 02/10/2018 Time Nurse Signature 02/10/2018 Time Farncisco Javier Lepe MD documented in this encounter Medications at Time of Discharge aspirin 81 mg tabletIndications:p er Ortho instructions - resume when off Eliquis Take 81 mg by mouth daily. Cholecalciferol, Vitamin D3, 2,000 unit Oral Capsule Take by mouth daily. montelukast (SINGULAIR) 10 mg Oral Tablet Take 10 mg by mouth every evening. rosuvastatin (CRESTOR) 10 mg Oral Tablet Take 10 mg by mouth daily. meloxicam (MOBIC) 15 mg Oral Tablet Take 15 mg by mouth daily. 10/02/2018 documented as of this encounter Discharge Disposition Disposition Code Departure Means Destination Home or Self Care Walk-out Home documented in this encounter H&P Notes * Francisco Javier Lepe MD - 02/10/2018 6:18 PM EDT OUTPATIENT PROCEDURE, LOCAL ANESTHESIA, H&P NOT REQUIRED documented in this encounter Procedure Notes * Francisco Javier Lepe MD - 02/12/2018 8:25 AM EDT Images from the original note were not included. [id number] PATIENT: DIAMANTE EDOUARD DATE OF : 1950 DATE OF OPERATION: 02/12/2018 PREOPERATIVE DIAGNOSIS: BILATERAL CARPAL TUNNEL SYNDROME POSTOPERATIVE DIAGNOSIS: SAME PROCEDURE: BILATERAL CARPAL TUNNEL DECOMPRESSION ANESTHESIA: Local (Nurse-Monitored) SURGEON: Francisco Javier Lepe MD TOURNIQUET TIME: Total Tourniquet Time Documented: Forearm (Left) - 4 minutes Total: Forearm (Left) - 4 minutes Forearm (Right) - 5 minutes Total: Forearm (Right) - 5 minutes BLOOD LOSS : NONE SPECIMEN : NONE DESCRIPTION OF PROCEDURE: The patient was taken to the operating room and placed on the table in the supine position with both arms out to the side on arm tables. Tourniquets were placed on both forearms. Both hands were prepped and draped in the usual sterile fashion for surgery. The same procedure was performed on each hand. 2% Lidocaine was infiltrated into the subcutaneous tissue of the proximal palm. The hand was exsanguinated and the tourniquet inflated to 250 mmHg. About 3-4 cm longitudinal incision was made just ulnar to midline in the proximal palm. This extended from the distal flexion crease of the wrist towards the third web space. A Heiss retractor was placed in the wound. Dissection was carried down through the subcutaneous tissue and palmar fascia. Ragnall retractors were placed on either side of the wound. The transverse carpal ligament was identified and carefully transected longitudinally, decompressing the carpal canal. The contents in the canal were inspected. The median nerve was mobilized with blunt dissection through the synovium. The canal was completely decompressed. The wound was irrigated.The tourniquet was released The skin was closed with interrupted 5-0 nylon sutures. A sterile bulky dressing and an Keven wrap were applied. The patient was taken to the outpatient surgery in stable condition. Francisco Javier Lepe MD documented in this encounter Nursing Notes * Viktoriya Byrne RN - 01/30/2018 12:46 PM EDT Images from the original note were not included. PREPARING FOR YOUR SURGERY Date of Surgery 02/12/18 Medications ?? Take the following pills with a small sip of water on the morning of surgery: See med list ?? Aspirin, coumadin, blood thinners, ibuprofen, Plavix, fish oil, vitamin E, any supplements, and any anti-inflammatory products may be stopped as directed by your physician. Food, Drinks, Tobacco ?? For your safety, do not eat any food after midnight. This includes gum, mints, candy, chewing tobacco, and dip. You may consume water, Gatorade, Powerade, black coffee/tea (no milk, no cream/creamers, no sugar) up to two hours prior to your arrival time. No exceptions or substitutions may be made to these restrictions. ??? For tobacco users: do not smoke or use any type of tobacco products within 24 hours prior to surgery. Smoking will also slow your rate of healing, so it is advised that you do not smoke during the healing process. No beer, wine or alcohol 24 hours prior to surgery. ??? Review instructions provided by your surgeon. Welfare Administrator ??? On the day of surgery, it is important to have a Welfare Administrator, someone who is 18 years or older, to accompany you and remain in the facility for the duration of your surgery. This person should be available for the Perioperative Team, which includes your surgeon, to communicate with before, during and after your surgery. Someone should also remain with you for [address] you and make sure you are SAFE during that time. ??? A parent must accompany a child scheduled for surgery and plan to stay at the hospital until the child is discharged. If your infant takes a special type of nipple or baby bottle, please bring that with you. If your child has a favorite security item such as a blanket or a special toy, please feel free to bring that with you. ??? Please do not bring children with you to the hospital or surgery center. Hygiene ??? You may brush your teeth and gargle the morning of surgery. Do not swallow water. ??? Please shower the morning of surgery or the night before. Do not wear makeup (including eye makeup) lotion, powder or deodorant. Please do not shave the operative extremity or near the operative extremity. ??? Nail portuguese must be removed from operative extremity. Personal Items ??? Please wear simple, loose fitting clothing to the hospital. Do not bring valuables (money, credit cards, check books, etc.) or wear any jewelry on day of surgery. Remove all body piercings prior to arrival. All jewelry must be removed to avoid injury. We will not tape wedding rings/bands. ??? If you have dentures, they may be removed before going into the operating room, and we will provide a container for them. If you wear contact lenses or glasses, they must be removed. Please bringa case for them. ??? Do not remove hearing aids. You will wear them to surgery. Bring with You ?? If you have a Living Will and Durable Power of Choreography Director for Healthcare, please bring a copy. ??? If having surgery at the hospital and you wear CPAP or BIPAP, please bring your mask and the machine settings (not the actual machine) with you to the hospital on the day of your procedure. The hospital will supply a machine to use during your hospital stay. ??? If your procedure is taking place at a surgery center, you must bring your CPAP or BIPAP with you. ??? If you wear oxygen, please bring it with you to use during your travel to and from the hospital. Following your admission, the hospital will supply oxygen for your use. Notify the Surgeon ??? For your safety, notify your surgeon if you develop any illness between now and surgery time --cough, cold, fever, sore throat, nausea, vomiting, etc. Questions or Concerns? If you have any questions or concerns, feel free to call the contact number. We want to make sure you feel safe and have an excellent experience while you are here. documented in this encounter Plan of Treatment Upcoming Encounters Date Type Department Care Team (Late st Contact Info) Description 05/24/2024 10:30 AM EST Office Visit [facility] [address] [place] [phone] Nikolas Jha DPM [address] [place] [phone] documented as of this encounter Procedures Procedure Name Priority Date/Time Associated Diagnosis Comments CARPAL TUNNEL RELEASE BILATERAL 02/12/2018 8:30 AM EDT Carpal tunnel syndrome on right Carpal tunnel syndrome on left Special Needs 01/30/18 KF documented in this encounter Visit Diagnoses Diagnosis Bilateral carpal tunnel syndrome Carpal tunnel syndrome Carpal tunnel syndrome on right Carpal tunnel syndrome Carpal tunnel syndrome on left Carpal tunnel syndrome documented in this encounter Administered Medications Inactive Administered Medications - up to 1 most recent administrations Medication Order MAR Action Action Date Dose Rate Site lidocaine-EPINEPHrine 9 mL, sodium bicarbonate 1 mL injection ONCE PRN, 1 dose, Starting on Dagmar 18 at 0838, Until Dagmar 02/12/18 at 0838, Intra-op Given 02/12/2018 8:38 AM EDT 12 mL documented in this encounter Historical Medications * This list may reflect changes made after this encounter. meloxicam (MOBIC) 15 mg Oral Tablet Take 15 mg by mouth daily. 10/02/2018 added in this encounter Active and Recently Administered Medications Times are shown in EDT. PRN Medication Order 02/10/2018 02/11/2018 02/12/2018 lidocaine-EPINEPHrine 9 mL, sodium bicarbonate 1 mL injection (COMPLETED) ONCE PRN, 1 dose, Starting on Dagmar 18 at 0838, Until Dagmar 02/12/18 at 0838, Intra-op 0838 (Given - Provid er: Francisco Javier Lepe MD) documented in this encounter Orders Discharge Count Last Ordered Date First Orde red Date DISCHARGE PATIENT 1 02/12/2018 documented in this encounter Additional Health Concerns Assessment Noted Time A fall risk assessment has been complete d for the patient 07/29/2016 10:44 AM EST documented as of this encounter Care Teams Candy Puller Relationship Specialty Start Date End Date Carlos Manuel Barragan [address] [place] [address] [address] [place] [address] PCP - General 07/03/10 documented as of this encounter
--- OUTSIDE RECORDS SUMMARY | 2024-05-04 22:54 | XMS_ITS | Encounter Summary ---
Author Organization [place] [address] Care Team Providers Care Sonar Watchstander Name Role Phone Carlos Manuel Barragan Primary Care Provider [phone] Reason for Visit * Reason Onset Date Comments Medication Refill 07/28/2018 Encounter Details Date Type Department Care Team (Late st Contact Info) Description 07/28/2018 Telephone [facility] [address] [facility] [address] [place] [address] Greer Rosario RMA Medication Refill Social History Tobacco Use Types [...] Oral TabletIndications:M alignant neoplasm of left female breast, unspecified estrogen receptor status, unspecified site of breast (HCC) Take 1 Tab by mouth daily. 90 Tab 3 07/28/2018 09/29/2018 documented in this encounter Miscellaneous Notes * Telephone Encounter - Greer Rosario RMA - 07/28/2018 11:02 AM EST Arimdex refills escribed to [facility] pharmacy per patient request Pt states she has a follow up appt with Dr. 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
--- OUTSIDE RECORDS SUMMARY | 2024-05-04 22:54 | XMS_ITS | Encounter Summary ---
Author Organization [place] [address] Care Team Providers Care Emergency Room Clinician Name Role Phone Carlos Manuel Barragan Primary Care Provider [phone] Reason for Visit * Auth/Cert/Inpt Specialty Diagnoses / Procedures Referred By Contniurka t Referred To Contact Diagnoses Osteoarthritis of left knee, unspecified osteoarthritis type Osteoarthritis of left knee, unspecified osteoarthritis type [M17.12] Procedures CA TOTAL KNEE ARTHROPLASTY LEFT TOTAL KNEE ARTHROPLASTY Referral ID Status Reason Start Date Expiration Date Visits Re quested Visits Authorized [id number] 1 1 Encounter Details Date Type Department Care Team (Late st Contact Info) Description 09/29/2018 10:15 AM EDT - 09/29/2018 11:15 AM EDT Surgery EDG PERIOP [facility] [address] [place] [id number] Brian Newman MD [address] [place] [address] TOTAL KNEE REPLACEMENT/ARTHROPLA STY Surgery Details Date/Time Status Location OR Service Patient Class Case Class Case Type Trauma Case? 09/29/2018 10:15 AM Posted EDG MAIN OR EDG Room 05 Orthopedics Surgery Admit Elective Panel 1 Procedure LRB Anes Op Region Wound Class Comments TOTAL KNEE REPLACEMENT/ARTHROPLASTY Left Spinal Knee Clean LEFT TOTAL KNEE ARTHROPLASTY Surgeon Surgeon Role Service Panel Brian Newman MD Primary Orthopedics 1 Special Needs SIVAN, ADDUCTOR NERVE BLOCK SINGLE SHOT, SPINAL documented in this encounter Social History Tobacco [...] in this encounter Discharge Summaries * Bea Moya, MULUGETA - 10/02/2018 9:03 AM EDT [facility] Discharge Summary Patient Name: Juany [...] Patient Instructions: Juany Alarcon Home Medication Instructions LOW:[id number] Printed on:10/02/18 0903 Medication Information anastrozole (ARIMIDEX) [...] 10/02 Dear Patient, The staff of at [facility] sincerely hopes that your hospital stay was pleasant. We try to ensure that our patients are cared for in the most respectful and comfortable way. The staff members of pride themselves on delivering kind and compassionate care to each and every patient. Working collaboratively with physicians, social workers, case finisher, and the discharge team, we attempt to [...] for further explanation. Thank you for choosing [facility]. We hope that you have had a [...] the correct instructions below (Dermabond [place] or [place]) that coincide with your wound dressing. ?? [...] gel bags. SMI Wrap care instructions: The [facility] cold therapy wrap can be hand washed and air dried. Additional [facility] body specific wraps can be re-ordered from [facility] or call [phone]. [facility] re-order information: Visit our Patient Retail Store at [email or web address] Telephone orders: If Prescribed: Jose Hose/Compression Stockings [...] Department of Health and Human Services, national [place] of Health, National Heart Lungs and Blood [place], Obtained on 05/04/2007 from http: www.nihlb i.nih.gov/health/dci/Diseases/Dvt/DVT_All.html [...] and a coupon, you will need to garbage pick up worker your supplement at your pharmacy counter. CONSTIPATION [...] in your stool, contact your doctor. Reference: [facility] - Tools for Healthier Lives ? Higher [...] Control and Prevention www.cdc.gov ADD: Home Safety [place] www.Homesafetycouncil.org MISCELLANEOUS Activity as tolerated as instructed [...] procedures Gastrointestinal procedures (EDG or Colonoscopy) Call [phone] ([facility]) for any questions or concerns. Also feel free to use the After Hours clinic at: [facility] After Hours Clinic [address] [place] [address] Friday-Friday 9:00 am to 9:00 pm Friday [...] if you have any of these conditions: -Archie's disease -brain tumor -drug abuse or addiction [...] before you take it. Talk to your cylinder press operator apprentice regarding the use of this medicine in [...] this medicine? Tell your doctor or health child care team lead if your pain does not go away, [...] 3 days, call your doctor or health child care team lead. Your mouth may get dry. Drinking water, chewing sugarless gum, or sucking on hard candy may help. See your dentist every 6 months. What side effects may I notice from receiving this medicine? Side effects that you should report to your doctor or health child care team lead as soon as possible: -allergic reactions like skin rash, itching or hives, swelling of the face, lips, or tongue -breathing problems -confusion -feeling faint or lightheaded, falls -trouble passing urine or change in the amount of urine -unusually weak or tired Side effects that usually do not require medical attention (report to your doctor or health child care team lead if they continue or are bothersome): -constipation -dry mouth -itching -nausea, vomiting -upset stomach This list may not describe all possible side effects. Call your doctor for medical advice about side effects. You may report side effects to FDA at 8-579-LVB-8993. Where should I keep my medicine? Keep [...] run out of medicine. Talk to your cylinder press operator apprentice regarding the use of this medicine in [...] inflammation, like ibuprofen or naproxen -rifampin -ritonavir -[place]'s wort This list may not describe all [...] should report to your doctor or health child care team lead as soon as possible: -allergic reactions like [...] may report side effects to FDA at 4-088-XYF-8642. Where should I keep my medicine? Keep [...] Code Departure Means Destination Home or Self Senior Care documented in this encounter Progress Notes * Stephania Fontana CPhT - 10/02/2018 10:34 AM EDT Discharge Medication Delivery Service DMD central lab technician has Juany Alarcon's prescriptions for the following discharge medications: ?? Oxycodone 5 mg ?? Tramadol 50 mg These prescriptions are currently being filled in our outpatient pharmacy and will be delivered to the patient prior to discharge. Please contact DMD central lab technician with any questions. Thanks! Stephania Fontana DMD Ambulatory Care Coordinator Discharge Medication Delivery Service Juany Lionel Alarcon has been disenrolled from the DMD program. Prescriptions for the following discharge medications have been returned to patient's chart: ?? Oxycodone 5 mg ?? Tramadol 50 mg Please contact DMD central lab technician with any questions. Thanks! Stephania Fontana, DMD Ambulatory Care Coordinator * Bri Crockett, MEAT SALES AND STORAGE MANAGER - 10/02/2018 9:46 AM EDT 10/02/18 0829 PT Subjective Note Type Treatment/Progress PT Subjective Comments #1 6956 PT Subjective Comments #2 pt agrees to PT in [facility] Gym Discharge Information This progress [...] mobility Observation Additional Comments pt transported to [facility] Gym via w/c Transfers Sit [...] PT;Outpatient PT Time In / Time Out 8690-4528 IP PT Evaluation Minutes 0 IP PT [...] Comments #1 pt agrees to PT in [facility] Gym Discharge Information This progress [...] mobility Observation Additional Comments pt transported to [facility] Gym via w/c Transfers Sit [...] PT;Outpatient PT Time In / Time Out 7932-8682 IP PT Evaluation Minutes 0 IP PT [...] Follow-up Visit Follow-up Needed? Complete * Bri Crockett PTA - 10/01/2018 9:58 AM EDT 10/01/18 0845 PT Subjective Note Type Treatment/Progress PT Subjective Comments #1 2774 PT Subjective Comments #2 pt agrees to PT in [facility] Gym Discharge Information This progress [...] mobility Observation Additional Comments pt transported to [facility] Gym via w/c Transfers Sit [...] PT;Outpatient PT Time In / Time Out 5808-2929 IP PT Evaluation Minutes 0 IP PT [...] Visit Type Initial Need to follow-up? Yes Christianity Needs Pastoral care brochure;Prayer Spiritual Needs Voodoo? Voodoo Has Pts suha community been notified No, do not notify Pastoral Care Issues Pastoral Care Issues Coping Comments Specialty Sales Consultant listened as patient and daughter shared life experiences. Specialty Sales Consultant prayed with patient upon request. Coping Resources Suha;Family;Prayer Pastoral Care Plan/Intervention Plan/Intervention Continue to Follow;Family Support;Prayer 09/30/2018 Celeste Alvarez * Bri Crockett PTA - 09/30/2018 3:27 PM EDT 09/30/18 1432 PT Subjective Note Type Treatment/Progress Patient Room/Unit 7405 PT Subjective Comments #1 pt agrees to PT in [facility] gym Discharge Information This progress note will [...] mobility Observation Additional Comments pt transported to [facility] Gym via w/c Transfers Sit [...] PT;Outpatient PT Time In / Time Out 6322-6849 IP PT Evaluation Minutes 0 IP PT [...] the OPPT in her town (lives in [place], [place]), denies further d/c needs, spouse to transport at d/c. Completed by CC/SW Yes Discharge to Home with Family CJR letter given? Yes [facility] CJR letter given RRS Is patient score high risk on RRS score? No Care Coordination Assessment Observation Information Provided to Patient/Family N/A Does patient meet high risk triggers? Change in baseline mobility Assessed In person interview with patient Mental Status Alert and oriented Does patient need capsule filler? No Decision Maker Him/Herself Activities of Daily [...] Yes Agency/Facility Options Offered, list provided Yes [facility] Financial Disclosure completed? 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 Advance as directed. Machelle Hauser PA-C Cosigned by Brian Newman MD at 10/01/2018 8:37 AM EDT * Rafael Ford [facility] - 09/29/2018 4:16 PM EDT IV-PO [...] Newman MD - 10/01/2018 8:27 AM EDT [facility] OPERATIVE/PROCEDURE NOTE Juany Alarcon October 01, 2018 Body mass index is 33.57 kg/m??. PRE-OP DIAGNOSIS: Osteoarthritis of left knee, unspecified osteoarthritis type [M17.12] POST-OP DIAGNOSIS: Osteoarthritis of left knee, unspecified osteoarthritis type [M17.12] PROCEDURE(S): Procedure(s): LEFT TOTAL KNEE ARTHROPLASTY SURGEON(S): Surgeon(s) and Role: * Brian Newman MD - Primary HAND SPRING REPAIRER HELPER(S): Analisa ANESTHESIA: Spinal TT <45mn SPECIMENS: * [...] with femoral, tibial and patellar replacement, CPT 65193. SURGEON: Brian Newman M.D. HAND SPRING REPAIRER HELPER: Abril Hauser PA-C (medical necessity for inside sales assistant surgeon with complex left total knee arthroplasty). NOTE: speech language pathology assistant was utilized and essential to the procedure for positioning extremity, retraction, assisting with instrumentation and holding position of extremity so the surgeon had two hands free for placing implants and dissection. speech language pathology assistant was also utilized for incisional closure. CPT 21268 ANESTHESIA: Spinal. HISTORY: Ms. Alarcon is a 68-year-old woman who has failed all aspects of conservative treatment. This is a lady who has [id number] arthritis with a fixed flexion varus deformity. [...] Brian Newman M.D. By: Jason Job ID: [id number] Doc ID: [id number] * Brian Newman MD - 09/29/2018 11:13 AM EDT [facility] OPERATIVE/PROCEDURE NOTE Juany Alarcon September 29, 2018 Body mass index is 33.57 kg/m??. PRE-OP DIAGNOSIS: Osteoarthritis of left knee, unspecified osteoarthritis type [M17.12] POST-OP DIAGNOSIS: Osteoarthritis of left knee, unspecified osteoarthritis type [M17.12] PROCEDURE(S): Procedure(s): LEFT TOTAL KNEE ARTHROPLASTY SURGEON(S): Surgeon(s) and Role: * Brian Newman MD - Primary HAND SPRING REPAIRER HELPER(S): Analisa BRICE ANESTHESIA: Spinal TT <45mn SPECIMENS: * No specimens in log * ESTIMATED BLOOD LOSS (mls): <50ml DISPOSITION/POST PROC COURSE: PACU Brian Newman MD Date: 09/29/2018 documented in this encounter Consult Notes * Stephania Weinberg MD - 09/30/2018 2:07 PM EDTAssociated Order(s): IP CONSULT TO FAMILY PRACTICE [facility] History and Physical Name: Juany Alarcon : [...] Location: [facility]; Service: Plastics ??? BREAST REDUCTION SURGERY Right 11/16/2015 Surgeon: Flaco Damon MD; Location: [facility]; Service: Plastics ??? BREAST SURGERY Left 06/02/2015 BREAST RECONSTRUCTION 1ST STAGE WITH EXPANDERS ; Surgeon: Flaco Damon MD; Location: [facility] OR; Service: General ??? CARPAL TUNNEL RELEASE Bilateral 02/12/2018 BILATERAL CARPAL TUNNEL RELEASE ; Surgeon: Francisco Javier Lepe MD; Location: [facility]; Service: Hand ??? CHOLECYSTECTOMY ??? COLONOSCOPY ??? DENTAL SURGERY wisdom teeth extracted ??? FOOT SURGERY Left 10/05/2010 hammertoes ??? HIP SURGERY 2009 right total ??? KNEE SURGERY 2008 right TKR ??? TONSILLECTOMY ??? TOTAL KNEE ARTHROPLASTY Left 09/29/2018 LEFT TOTAL KNEE ARTHROPLASTY; Surgeon: Brian Newman MD; Location: [facility] MAIN OR; Service: Orthopedics @PRIOR TO ADMISSION [...] position. * RT Oxygen Plan of Care Jyotsna - Mirna Buitrago RRT - 09/30/2018 7:53 PM EDT September 30, 2018 Oxygen Therapy: Oxygen Liters/Percent: 2L Maintain Oxygen Sat greater than or equal to: Other Other Saturation NC: OXYGEN PRN TO MAINTAIN PRE-OPERATIVE BASELINE SPO2 O2 Device: Room Air SpO2: 93 % Will continue to wean oxygen as tolerated to maintain titration goal. MACHINE TOOL MECHANIC removed-pt stated it kept alarming and was [...] 09/30/2018 10:06 AM EDT IP ORDER IN [facility]. CAME TO MS FLOOR FROM PACU. SP [...] as tolerated to maintain titration goal. Latoya Reyes, MAYRA * Plan of Care - Laurie Fisher [...] of Care Note - Connor Rock RC Surveyor Rod Helper - 09/29/2018 10:11 PM EDT September 29, 2018 Oxygen Therapy: Oxygen Liters/Percent: 2L Maintain Oxygen Sat greater than or equal to: Other Other Saturation NC: OXYGEN PRN TO MAINTAIN PRE-OPERATIVE BASELINE SPO2 O2 Device: Room Air SpO2: 94 % Will continue to wean oxygen as tolerated to maintain titration goal. DO Anne Surveyor Rod Helper * Plan of Care - Nile Andrea [...] 10:30 AM EST Office Visit [facility] [place] [address] [place] [address] Nikolas Jha, DPM [address] [place] [address] documented as of this encounter Procedures [...] 2:07 PM EDTThis note is in progress. [facility] History and Physical Name: Juany Alarcon : [...] SYMMETRY ; Surgeon: Flaco Damon MD; [facility]; Service: Plastics ? ? BREAST REDUCTION SURGERY Right 11/16/2015 Surgeon: Flaco Damon MD; Location: [facility];Service: Plastics ? ? BREAST SURGERY Left 06/02/2015 BREAST RECONSTRUCTION 1ST STAGE WITH EXPANDERS ; Surgeon: Falco Damon MD; Location: [facility] MAIN OR; Service: General ? ? CARPAL TUNNEL RELEASE Bilateral 02/12/2018 BILATERAL CARPAL TUNNEL RELEASE ; Surgeon: Francisco Javier Lepe MD; Location:[facility]; Service: Hand ? ? CHOLECYSTECTOMY ? ? COLONOSCOPY ? ? DENTAL SURGERY wisdom teeth extracted ? ? FOOT SURGERY Left 10/05/2010 hammertoes ? ? HIP SURGERY 2009 right total ? ? KNEE SURGERY 2008 right TKR ? ? TONSILLECTOMY ? ? TOTAL KNEE ARTHROPLASTY Left 09/29/2018 LEFT TOTAL KNEE ARTHROPLASTY; Surgeon: Brian Newman MD; Location:[facility] MAIN OR; Service: Orthopedics @PRIOR TO ADMISSION [...] g/dL 10/02/2018 7:00 AM EDT [facility] [place] Hct 30.7(L) 34.0 - 45.0 % 10/02/2018 7:00 AM EDT [facility] [place] Blood Venipuncture / Unknown 10/02/2018 6:12 AM EDT 10/02/2018 6:50 AM EDT us Brian Newman MD HEMATOLOGY ORDERABLES Final Res ult [facility] [place] [address] , [place] [address] * (ABNORMAL) BASIC METABOLIC PANEL (10/01/2018 10:27 AM EDT) Sodium 137 136 - 145 mmol/L 10/01/2018 11:35 AM EDT [facility] Potassium 4.4 3.5 - 5.0 mmol/L 10/01/2018 11:35 AM EDT [facility] Chloride 101 98 - 107 mmol/L 10/01/2018 11:35 AM EDT [facility] Total CO2 26 22 - 29 mmol/L 10/01/2018 11:35 AM EDT [facility] Anion Gap 10 7 - 16 mmol/L 10/01/2018 11:35 AM EDT [facility] Calcium 9.1 8.8 - 10.4 mg/dL 10/01/2018 11:35 AM EDT [facility] Glucose Lvl 235(H) 82 - 100 mg/dL 10/01/2018 11:35 AM EDT [facility] BUN 21 8 - 23 mg/dL 10/01/2018 11:35 AM EDT [facility] Creatinine 1.03 0.51 - 1.30 mg/dL 10/01/2018 11:35 AM EDT [facility], [facility] GFR Afr Am 65 >=60 mL/min/1.7 3 m2 10/01/2018 11:35 AM EDT [facility], [facility] GFR Non Afr Am 56(L) >=60 mL/min/1.7 3 m2 10/01/2018 11:35 AM EDT [facility], [facility] Comment: This estimated GFR was calculated using [...] Stephania Weinberg MD CHEMISTRY ORDERABLES Final Result [facility] [address] , [place] [address] * (ABNORMAL) HEMOGLOBIN AND HEMATOCRIT (10/01/2018 6:31 AM EDT) Hgb 10.4(L) 11.2 - 15.7 g/dL 10/01/2018 7:18 AM EDT [facility] [place] Hct 33.0(L) 34.0 - 45.0 % 10/01/2018 7:18 AM EDT [facility] [place] Blood Venipuncture / Unknown 10/01/2018 6:31 AM EDT 10/01/2018 6:50 AM EDT Brian Newman MD HEMATOLOGY ORDERABLES Final Res ult Performing Organization Address [facility] de Phone Number [facility] [address] , [place] [address] * (ABNORMAL) HEMOGLOBIN AND HEMATOCRIT (09/30/2018 6:50 AM EDT) [facility] Hgb 10.4(L) 11.2 - 15.7 g/dL 09/30/2018 7:18 AM EDT [facility] [place] Hct 31.7(L) 34.0 - 45.0 % 09/30/2018 7:18 AM EDT [facility] [place] Blood Venipuncture / Unknown 09/30/2018 6:50 AM EDT 09/30/2018 7:03 AM EDT us Brian Newman MD HEMATOLOGY ORDERABLES Final Res ult Performing Organization Address [facility] de Phone Number [facility] [address] , [place] [address] documented in this encounter Visit Diagnoses Diagnosis Essential hypertension- Primary Unspecified essential hypertension Hypokalemia Hypopotassemia Osteoarthritis of left knee Osteoarthrosis, unspecified whether generalized or localized, lower leg Osteoarthritis of left knee, unspecified osteoarthritis type documented in this encounter Admitting Diagnoses Diagnosis [...] Nurse may select tablet or suppository., Post-op bisoprolol-hydrochlorothiazide (ZIAC) 5-6.25 mg per tablet 1 Tab 1 Tablet, Oral, DAILY, First dose on Fri09/30/18 at 0900, Until Discontinued Given 10/02/2018 8:05 AM EDT 1 Tablet Cholecalciferol (Vitamin D3) capsule 2,000 Units 2,000 Units (1 Capsule), Oral, DAILY, First dose on Fri09/29/18 at 1930, Until Discontinued Given 10/02/2018 8:05 AM EDT 2,000 Units docusate sodium (COLACE) capsule 100 mg 100 [...] Given 10/02/2018 8:05 AM EDT 325 mg magnesium hydroxide (MILK OF MAGNESIA) 400 mg/5 [...] at 1647, Nausea, Dissolve in mouth, Post-op ortho canal block ONCE PRN, 1 dose, Starting on Fri09/29/18 at 0959, Until Fri09/29/18 at 0959, Intra-op Given 09/29/2018 9:59 AM EDT oxyCODONE (ROXICODONE) immediate release tablet 5-15 mg [...] Given 10/02/2018 8:05 AM EDT 20 mEq documented in this encounter Discontinued Medications Medication Sig Discontinue Reason Start Date End Da te anastrozole (ARIMIDEX) 1 mg Oral TabletIndications:Victoria espinoza neoplasm of left female breast, unspecified estrogen receptor status, unspecified site of breast (HCC) Take 1 Tab by mouth daily. Removed During Admission Medication Review 07/30/2017 09/29/2018 anastrozole (ARIMIDEX) 1 mg Oral TabletIndications:Hist ory of breast cancer Take 1 Tab by mouth daily. Removed During Admission Medication Review 07/27/2018 09/29/2018 anastrozole (ARIMIDEX) 1 mg Oral TabletIndications:Victoria gnpietro neoplasm of left female breast, unspecified estrogen receptor status, unspecified site of breast (HCC) Take 1 Tab by mouth daily. DELETE-Duplicate 07/28/2018 09/29/2018 anastrozole (ARIMIDEX) 1 mg Oral TabletIndications:Victoria espinoza neoplasm of left female breast, unspecified site of breast Take 1 Tab by mouth daily. DELETE-Duplicate 07/24/2016 09/29/2018 FOLIC ACID/MULTIVIT-MIN/LUTE IN (CENTRUM SILVER ORAL) Take by mouth. Reported on 07/24/2016 Non-compliance 09/29/2018 Diclofenac Potassium (ZIPSOR) 25 mg Cap Take 25 mg by mouth daily. 3 tablets Cost of medication 09/29/2018 PARoxetine (PAXIL) 10 mg Oral TabletIndications:Parisa pausal symptoms Take 1 Tab by mouth [...] dose on Fri09/30/18 at 0900, Until Discontinued 0809 (Given - Provider: Nile Andrea RN) 0825 (Given - Provider: Arpita Mora RN) 08 (Given - Provider: Arpita Mora RN) apixaban (ELIQUIS) tablet 2.5 mg 2.5 mg, Oral, 2 TIMES DAILY, 24 doses, First dose on Fri09/30/18 at 0900, Last dose on Fri10/11/18 at 2100, Post-op 807 (Given - Provider: Nile Andrea RN)2027 (Given - Provider: Christina Jaime, CRISTOBAL) 824 (Given - Provider: Arpita Mora RN)2005 (Given - Provider: Meggan Blackwell RN) 804 (Given - Provider: Arpita Mora RN) atorvastatin (LIPITOR) tablet 40 mg 40 mg, Oral, NIGHTLY, First dose on Fri09/29/18 at 2100, Until Discontinued, Therapeutic interchange for rosuvastatin (Crestor) 10mg 2027 (Given - Provider: Christina Jaime, CRISTOBAL) 2005 (Given - Provider: Meggan Blackwell RN) bisacodyl (DULCOLAX) EC tablet 10 mg(Linked Group [...] 807 (Given - Provider: Nile Andrea RN) 0825 (Given - Provider: Arpita Mora RN) 08 (Given - Provider: Arpita Mora RN) Cholecalciferol (Vitamin D3) capsule 2,000 Units 2,000 Units (1 Capsule), Oral, DAILY, First dose on Fri09/29/18 at 1930, Until Discontinued 08 (Given - Provider: Nile Andrea RN) 0825 (Given - Provider: Arpita Mora RN) 08 (Given - Provider: Arpita Mora RN) docusate sodium (COLACE) capsule 100 mg 100 mg, Oral, 2 TIMES DAILY, First dose on Fri09/29/18 at 2100, Until Discontinued, Do not crush or chew., Post-op 808 (Given - Provider: Nile Andrea RN)2027 (Given - Provider: Christina Jaime RN) 08 (Given - Provider: Arpita Mora RN)2005 (Given - Provider: Meggan Blackwell RN) 0900 (Not Given - Provider: Arpita Mora RN - Reason: Patient/family declined) ferrous sulfate tablet 325 mg 325 mg, Oral, 2 TIMES DAILY WITH MEALS, First dose on Fri09/29/18 at 1800, Until Discontinued, Take with food other than cereals, dietary fiber, tea, coffee, eggs, or milk. Provides 65 mg of elemental iron. Do not crush., Post-op 08 (Given - Provider: Nile Andrea RN)1702 (Not Given - Provider: Nile Andrea RN - Reason: Patient/family declined) 0744 (Given - Provider: Arpita Mora RN)1800 (Not Given - Provider: Arpita Mora RN - Reason: Nausea/Vomiting) 08 (Given - Provider: Arpita Mora RN) magnesium hydroxide (MILK OF MAGNESIA) 400 mg/5 mL suspension 30 mL 30 mL, Oral, DAILY, First dose on Fri09/30/18 at 0900, Until Discontinued, Start POD #1. Hold if patient has had bowel movement., Post-op 08 (Given - Provider: Nile Andrea RN) 0900 (Not Given - Provider: Arpita Mora RN - Reason: Patient/family declined) 0900 (Not Given - Provider: Arpita Morgan, RN - Reason: Patient/family declined) potassium chloride (K-DUR) tablet 20 mEq 20 mEq, Oral, DAILY WITH MEAL, First dose on Fri09/30/18 at 0800, Until Discontinued 08 (Given - Provider: Nile Andrea RN) 0744 (Given - Provider: Arpita Mora, CRISTOBAL) 08 (Given - Provider: Arpita Mora RN) senna [...] mg from all sources in 24 hours. 0808 (Given - Provider: Nile Andrea RN)192 (Given - Provider: Nile Andrea RN) aluminum [...] patient., Post-op 0809 (Given - Provider: Nile Andrea, CRISTOBAL)1239 (Given - Provider: Nile Andrea, RN)1923 (Given - Provider: Nile Andrea, RN) 0617 (Given - Provider: Christina Jaime RN)1011 (Given - Provider: Arpita Mora RN)1416 (Given - Provider: Arpita Mora, RN)1842 (Given - Provider: Arpita Mora RN) 0024 (Given - Provider: Meggan Blackwell RN)0440 (Given - Provider: Meggan Blackwell RN)0805 (Given [...] Ordered Date acetaminophen (OFIRMEV) infusion 1,000 mg 2 09/29/2018 09/28/2018 acetaminophen (TYLENOL) tablet 1,000 mg 2 0 09/29/2018 acetaminophen (TYLENOL) tablet 650 mg 2 11/2018 aluminum & magnesium hydroxi de-simethicone 200-200-20 mg/5 mL suspension 15 mL 1 09/29/2018 anastrozole (ARIMIDEX) tablet 1 mg 1 2018 apixaban (ELIQUIS) tablet 2.5 mg 1 09/30/19 atorvastatin (LIPITOR) tablet 40 mg 1 09/29 benzocaine-menthol 15-3.6 mg Lozg 1 Lozenge 1 09/29/2018 bisacodyl (DULCOLAX) EC tablet 10 mg 1 11/2018 bisacodyl (DULCOLAX) suppository 10 mg 1 bisoprolol-hydrochlorothiazi de (ZIAC) 5-6.25 mg per tablet 1 Tab 1 09/29/2018 Cholecalciferol (Vitamin D3) capsule 2,000 Units 1 09/29/2018 clindamycin (CLEOCIN) 900 mg in 50 mL dextrose 5% IVPB 900 mg 2 09/29/2018 docusate sodium (COLACE) capsule 100 mg 1 0 09/29/2018 fentaNYL (SUBLIMAZE) injection 50 mcg 1 11/2018 ferrous sulfate tablet 325 mg 1 09/29/2018 HYDROmorphone (PF) (DILAUDID ) injection 0.25 mg 1 09/29/2018 lactated ringers infusion 2 09/29/2018 magnesium hydroxide (MILK OF MAGNESIA) 400 mg/5 mL suspension 30 mL 1 09/29/2018 meperidine (DEMEROL) injecti on (PF) 12.5 mg 1 09/29/2018 metoclopramide HCl (REGLAN) injection 10 mg 1 09/29/2018 ondansetron (ZOFRAN) injection 4 mg 2 09/29 ondansetron (ZOFRAN-ODT) dis integrating tablet 4 mg 1 09/29/2018 ondansetron (ZOFRAN-ODT) dis integrating tablet 8 mg 1 09/29/2018 oxyCODONE (ROXICODONE) immed iate release tablet 5 mg 2 09/29/2018 oxyCODONE (ROXICODONE) immed iate release tablet 5-15 mg 1 09/29/2018 potassium chloride (K-DUR) tablet 20 mEq 1 09/29/2018 povidone-iodine 5 % intranas al solution 1 Kit 1 09/29/2018 promethazine (PHENERGAN) 12. 5 mg in sodium chloride 10 mL injection 1 09/29/2018 promethazine (PHENERGAN) 6.2 5 mg in sodium chloride 10 mL injection 1 09/29/2018 senna (SENOKOT) tablet 2 Tab 1 09/29/2018 oxyCODONE (OxyCONTIN) CR tablet 10 mg 1 10/2018 pregabalin (LYRICA) capsule 75 mg 1 019 scopolamine (TRANSDERM-SCOP) 1 mg over 3 days 1 Patch 1 09/28/2018 Nursing Count Last Ordered Date First Orde [...] documented as of this encounter Care Teams Emergency Room Clinician Relationship Specialty Start Date End Date Carlos Manuel Barragan [address] [facility] [address] [place] [address] PCP - General 07/03/10 documented as of this encounter
--- OUTSIDE RECORDS SUMMARY | 2024-05-04 22:54 | XMS_ITS | Encounter Summary ---
Author Organization [place] [address] Care Team Providers Care Apparel Trimmings Sales Representative Name Role Phone Carlos Manuel Barragan Primary Care Provider [phone] Encounter Details Date Type Department Care Team (Latest Contact Info) Description 09/10/2016 4:25 PM EDT - 09/10/2016 11:59 PM EDT Hospital Encounter [facility] [address] [facility] [place] [address] Onychomycosis; Pain in toes of both feet Discharge Disposition: Home or Self Care Social History Tobacco Use Types Packs/Day Years Used Date Smoking Tobacco: Never Smokeless Tobacco: Never Alcohol Use Standard Drinks/Week Comments Yes 0 (1 standard drink = 0.6 oz pur e alcohol) socially Comments No Sex and Gender Information Value [...] Take 10 mg by mouth every evening. terbinafine HCl (LAMISIL) 250 mg Oral TabletIndications:O nychomycosis,Pain in toes of both feet Take 1 Tab by mouth daily for 90 days. 90 Tab 07/29/2016 10/27/2016 documented as of this encounter Discharge Disposition Disposition Code Departure Means Destination Home or Self Care documented in this encounter Plan of Treatment Upcoming Encounters Date Type Department Care Team (Late st Contact Info) Description 05/24/2024 10:30 AM EST Office Visit [facility] [address] [place] [phone] Nikolas Jha DPM [address] [address] [address] [place] [address] Scheduled Orders Name Type Priority Associated Diagnoses Orde r Schedule OP VENIPUNCTURE CHARGE Lab Timed Onychomycosis Pain in toes of both feet One Time for 1 Occurrences starting 09/10/2016 until 09/10/2016 documented as of this encounter Procedures Procedure Name Priority Date/Time Associated Diagnosis Comments DIFFERENTIAL Routine 09/10/2016 4:34 PM EDT CBC WITH DIFF Routine 09/10/2016 4:34 PM EDT Onychomycosis Pain in toes of both feet HEPATIC FUNCTION PANEL Routine 09/10/2016 4:34 PM EDT Onychomycosis Pain in toes of both feet documented in this encounter Results * DIFFERENTIAL (09/10/2016 4:34 PM EDT) Neut Percent 54.1 % [facility] Lymph Percent 33.2 % [facility] [place] Percent 9.1 % [facility] Eos Percent 3.0 % [facility] Baso Percent 0.6 % [facility] Neut# 4.1 1.8 - 7.7 x10(3)/mcL [facility] Lymph# 2.5 0.6 - 4.8 x10(3)/mcL [facility] [place]# 0.7 0.0 - 1.3 x10(3)/mcL [facility] Eos# 0.2 0.0 - 0.5 x10(3)/mcL [facility] Baso# 0.0 0.0 - 0.2 x10(3)/mcL [facility] Blood specimen (specimen) 09/10/2016 4:34 PM EDT 09/10/2016 4:35 PM EDT us Nikolas Jha DPMitzi HEMATOLOGY ORDERABLES Final Result [facility] [address] [place] [address] * HEPATIC FUNCTION PANEL (09/10/2016 4:34 PM EDT) Total Protein 7.0 6.4 - 8.3 gm/dL [facility] Albumin 4.4 3.2 - 4.6 gm/dL [facility] Bili Direct <0.2 0.0 - 0.3 mg/dL [facility] Bili Total 0.3 0.1 - 1.3 mg/dL [facility] AST 16 <=40 IU/L [facility] ALT 11 <=41 IU/L [facility] Alk Phos 79 35 - 104 IU/L [facility] Blood specimen (specimen) UPPER LIMB STRUCTURE / Unknown 09/10/2016 4:34 PM EDT 09/10/2016 7:15 PM EDT Narrative [facility] - 09/10/2016 7:41 PM EDT 6 weeks after starting Lamisil us Nikolas Jha DPMitzi CHEMISTRY ORDERABLES Final Result [facility] [address] [place] [address] * CBC WITH AUTO DIFF (09/10/2016 4:34 PM EDT) WBC 7.5 4.0 - 11.0 x10(3)/mcL [facility] RBC 4.05 3.80 - 5.10 x10(6)/mcL [facility] Hgb 12.0 12.0 - 15.6 gm/dL [facility] Hct 37.2 35.7 - 45.9 % [facility] MCV 91.7 82.5 - 99.8 fL [facility] MCH 29.5 27.0 - 34.3 pg [facility] MCHC 32.2 32.1 - 35.3 gm/dL [facility] RDW 14.2 11.5 - 15.0 % [facility] Platelet 197 144 - 423 x10(3)/mcL [facility] MPV 9.4 6.8 - 10.8 fL [facility] Blood specimen (specimen) UPPER LIMB STRUCTURE / Unknown 09/10/2016 4:34 PM EDT 09/10/2016 4:35 PM EDT Narrative [facility] - 09/10/2016 5:33 PM EDT 6 weeks after starting Lamisil us Nikolas Jha DPM HEMATOLOGY ORDERABLES Final Result [facility] [address] [facility] [place] [address] documented in this encounter Visit Diagnoses Diagnosis Onychomycosis Dermatophytosis of nail Pain in toes of both feet documented in this encounter Additional Health Concerns Assessment Noted Time A fall risk assessment has been complete d for the patient 07/29/2016 10:44 AM EST documented as of this encounter Care Teams Apparel Trimmings Sales Representative Relationship Specialty Start Date End Date Carlos Manuel Barragan [address] [facility] [address] [place] [address] PCP - General 07/03/10 documented as of this encounter
--- OUTSIDE RECORDS SUMMARY | 2024-05-04 22:54 | XMS_ITS | Encounter Summary ---
Author Organization [place] [place] [address] Care Team Providers Care Chemistry Lab Instructor Name Role Phone Carlos Manuel Barragan Primary Care Provider [phone] Reason for Visit * Auth/Cert/Inpt Specialty Diagnoses / Procedures Referred By Contniurka t Referred To Contact Diagnoses Osteoarthritis of left knee, unspecified osteoarthritis type Osteoarthritis of left knee, unspecified osteoarthritis type [M17.12] Procedures NH TOTAL KNEE ARTHROPLASTY LEFT TOTAL KNEE ARTHROPLASTY Referral ID Status Reason Start Date Expiration Date Visits Re quested Visits Authorized [id number] 1 1 Encounter Details Date Type Department Care Team (Latest Contact Info) Description 09/21/2018 10:00 AM EDT - 09/21/2018 11:59 PM EDT Hospital Encounter [facility] [place] [address] Latoya Melendrez NP [address] [place] [address] Discharge Disposition: Home or Self Care Social [...] AM EST Office Visit [facility] [address] [place] [phone] Nikolas hJa, DPM [address] [place] [address] documented as of this encounter Procedures Procedure Name Priority Date/Time Associated Diagnosis Comments EK EKG 12 LEAD Routine 09/21/2018 10:00 AM EDT Pre-op testing Primary osteoarthritis of left knee documented in this encounter Results * EK EKG 12 LEAD (09/21/2018 10:00 AM EDT) Anatomical Region Laterality Modality Electrocardiogra phy 09/21/2018 9:58 AM EDT Impressions 09/21/2018 10:39 AM EDT ?[facility] ? Test Date: ?2018-09-21 Pat Name: ? DIAMANTE EDOUARD ?Department: ?? DEPID ? Room: ? Gender: ? Female ? Steel Post Installer Supervisor: ?? MBW : ?1950 ? Requested By: LATOYA JIMÉNEZ Order Number: [id number] ?Reading : ?? Mitchell Abreu MD ? Measurements Intervals ?Burns ? Rate: ? 63 ? P: ?13 NH: ? 192 ?QRS: ?12 QRSD: ? 72 ? T: ?10 QT: ? 365 ? QTc: ?376 ? Interpretive Statements SINUS RHYTHM LOW QRS VOLTAGE IN PRECORDIAL LEADS ?? minor NONSPECIFIC T-WAVE ABNORMALITY minimal change from ??record of 03/03/15 Electronically Signed On 09-21-2018 10:39:51 EDT by Mitchell Abreu MD Narrative Procedure Note Mitchell Abreu MD - 09/21/2018 IMPRESSION [facility] Test Date: 2018-09-21 Pat Name: DIAMANTE EDOUARD Department: [facility] Room: Gender: Female Steel Post Installer Supervisor: HOWARD : 1950 Requested By: LATOYA JIMÉNEZ Order Number: [id number] Reading MD: Mitchell Abreu MD Measurements Intervals Burns Rate: 63 P: 13 NH: 192 QRS: 12 QRSD: 72 T: 10 QT: 365 QTc: 376 Interpretive Statements SINUS RHYTHM LOW QRS VOLTAGE IN PRECORDIAL LEADS minor NONSPECIFIC T-WAVE ABNORMALITY minimal change from record of 03/03/15 Electronically Signed On 09-21-2018 10:39:51 EDT by Mitchell Abreu MD us Latoya Foster PLUMBING ASSEMBLER INSTALLER IMG ECG ORDERABLES Fi nal Result documented in this encounter Visit Diagnoses Not on filedocumented in this encounter Additional Health Concerns Assessment Noted Time A fall risk assessment has been complete d for the patient 07/29/2016 10:44 AM EST documented as of this encounter Care Teams Chemistry Lab Instructor Relationship Specialty Start Date End Date Carlos Manuel Barragan [address] [place] [address] [address] [place] [address] PCP - General 07/03/10 documented as of this encounter
--- OUTSIDE RECORDS SUMMARY | 2024-05-04 22:54 | XMS_ITS | Encounter Summary ---
Author Organization [place] [address] Care Team Providers Care Senior Product Development Manager Name Role Phone Carlos Manuel Barragan Primary Care Provider [phone] Reason for Visit * Reason Comments Nail Care fungus toenails * Consultation (Routine) - Closed Specialty Diagnoses / Procedures Referred By Heather santos Referred To Contact Masonry Installer-Surgery, Foot & Ankle / Podiatry Diagnoses fungus Procedures NEW PATIENT Carlos Manuel Barragan [address] [facility] [address] [place] [address] Phone: tel: fax: Nikolas Jha DPM [address] [place] [address] Phone: tel: fax: Referral ID Status Reason Start Date Expiration Date Visits Re quested Visits Authorized [id number] Closed 07/29/2016 07/29/2017 99 99 Encounter Details Date Type Department Care Team (Latest Contact Info) Description 09/10/2016 2:15 PM EDT Procedure visit [facility] [address] [place] [phone] Nikolas hJa DPM [address] [address] Onychomycosis (Primary Dx); Encounter for long-term (current) use of medications; Pain in toes of both feet; Hammer toe of right foot Social History [...] - - Weight 87.5 kg (193 lb) 09/10/2016 3:21 PM EDT Height 167.6 cm (5' 6 ) 09/10/2016 3:21 PM EDT Body Mass Index 31.15 09/10/2016 3:21 PM EDT documented in this encounter Functional [...] Progress Notes * Nikolas Jha DPM - 09/10/2016 2:15 PM EDT Images from the original note were not included. Subjective: Patient ID: Juany Alarcon is a 66 y.o. female. Chief Complaint: Nail Care (fungus toenails) HPI Patient presents today for Treatment of painful onychomycosis. She's had painful onychomycosis for over one year, gradual onset, progressively worsening. Pain with without shoe gear, worse with shoe gear and activity. At her last visit we started her on oral Lamisil and topical antifungal. Patient also presents for follow up Lamisil. Patient states her toes feel better , and look better. Also has a hammertoe of the right second toe. Past Medical History: Diagnosis Date ??? Anemia when younger only ??? Arthritis knees, hips,back ??? BRCA negative ??? Breast cancer (HCC) 02/09/15 ILC, grade 1. No receptors at this time (not sufficient tissue) ??? Encounter for blood transfusion with THR 2 units ??? Hypertension ??? Motion sickness ??? Postoperative nausea and vomiting does well with patch behind ear ??? Unspecified sleep apnea cpap at night. does not know setting Outpatient Prescriptions Marked as Taking for the 09/10/16 encounter (Procedure visit) with Nikolas Jha DPM Medication Sig Dispense Refill ??? anastrozole (ARIMIDEX) 1 mg Oral Tablet Take 1 Tab by mouth daily. (Patient taking differently:Take 1 mg by mouth nightly.) 90 Tab 3 ??? aspirin 81 mg tablet Take 81 mg by mouth daily. ??? bisoprolol-hydrochlorothiazide (ZIAC) 5-6.25 mg per tablet Take 1 Tab by mouth daily. ??? Cholecalciferol, Vitamin D3, 2,000 unit Oral Capsule Take by mouth daily. ??? Diclofenac Potassium (ZIPSOR) 25 mg Cap Take 25 mg by mouth daily. 3 tablets ??? FOLIC ACID/MULTIVIT-MIN/LUTEIN (CENTRUM SILVER ORAL) Take by mouth. Reported on 07/24/2016 ??? montelukast (SINGULAIR) 10 mg Oral Tablet Take 10 mg by mouth every evening. ??? potassium chloride SA (K-DUR;KLOR-CON) 20 mEq Oral Tab Sust.Rel. Particle/Crystal Take 20 mEq by mouth daily. ??? terbinafine HCl (LAMISIL) 250 mg Oral Tablet Take 1 Tab by mouth daily for 90 days. 90 Tab 0 ??? vitamin E 1,000 unit Oral Capsule Take 1,000 Units by mouth daily. Reported on 07/29/2016 Past Surgical History: Procedure Laterality Date ??? BREAST BIOPSY Left 02/07/15 ??? BREAST BIOPSY Left 03/03/2015 ??? BREAST RECONSTRUCTION Left 11/16/2015 LEFT BREAST STAGE 2 RECONSTRUCTION WITH IMPLANT RIGHT BREAST REDUCTION FOR SYMMETRY ; Surgeon: Flaco Damon MD; Location: [facility]; Service: Plastics ??? BREAST REDUCTION SURGERY Right 11/16/2015 Surgeon: Flaco Damon MD; Location: [facility]; Service: Plastics ??? BREAST SURGERY Left 06/02/2015 BREAST RECONSTRUCTION 1ST STAGE WITH EXPANDERS ; Surgeon: Flaco Damon MD; Location: [facility] OR; Service: General ??? CHOLECYSTECTOMY ??? COLONOSCOPY ??? FOOT SURGERY Left 10/05/2010 hammertoes ??? HIP SURGERY 2009 right total ??? KNEE SURGERY 2008 right TKR ??? LYMPH NODE DISSECTION Left 01/2015 4 nodes removed ??? MASTECTOMY Left 06/02/2015 ??? TONSILLECTOMY Family History Problem Relation Age of Onset ??? Ovarian Cancer Mother 83 ??? Cancer Mother uterus ??? Breast Cancer Sister 52 ??? Heart Failure Father ??? Thyroid Disease Father ??? Anesth Problems Neg Hx Social History Social History ??? Marital status: Spouse name: N/A ??? Number of children: N/A ??? Years of education: N/A Occupational History ??? Not on file. Social History Main Topics ??? Smoking status: Never Smoker ??? Smokeless tobacco: Never Used ??? Alcohol use Yes Comment: socially ??? Drug use: No ??? Sexual activity: Not on file Other Topics Concern ??? Not on file Social History Narrative Review of Systems Constitutional: Positive for activity change. Negative for chills, fatigue and fever. Respiratory: [...] systems reviewed and are negative. Objective: Vitals: 09/10/16 1521 Weight: 193 lb (87.5 kg) Height: 5' 6 (1.676 m) Body mass index is 31.15 kg/(m^2). HEPATIC FUNCTION PANEL (Order [id number]) Lab Date: 07/29/2016 Department: [facility] Released By: Andreia Araya Authorizing: Nikolas Jha DPM Lab Collection Information Type:: Blood Source: Arm Collected: 07/29/2016 12:42 PM Result Information Status Final result (Collected: 07/29/2016 12:42 PM) Component Results Component Value Ref Range & Units Status Total Protein 6.6 6.4 - 8.3 gm/dL Final Albumin 4.1 3.2 - 4.6 gm/dL Final Bili Direct <0.2 0.0 - 0.3 mg/dL Final Bili Total 0.3 0.1 - 1.3 mg/dL Final AST 25 <=40 IU/L Final ALT 18 <=41 IU/L Final Alk Phos 80 35 - 104 IU/L Final Reviewed By Nikolas Pedroza DPM on 07/29/2016 ??7:40 PM Lab and Collection CBC WITH AUTO DIFF (Order [id number]) Lab Date: 07/29/2016 Department: [facility] Released By: Andreia Araya Authorizing: Nikolas Jha DPM Lab Collection Information Type:: Blood Source: Arm Collected: 07/29/2016 12:42 PM Result Information ?? Status Abnormal Final result (Collected: 07/29/2016 12:42 PM) Component Results Component Value Ref Range & Units Status WBC 4.4 4.0 - 11.0 x10(3)/mcL Final RBC 4.10 3.80 - 5.10 x10(6)/mcL Final Hgb 12.5 12.0 - 15.6 gm/dL Final Hct 37.5 35.7 - 45.9 % Final MCV 91.6 82.5 - 99.8 fL Final MCH 30.6 27.0 - 34.3 pg Final MCHC 33.4 32.1 - 35.3 gm/dL Final RDW 14.4 11.5 - 15.0 % Final Platelet 138 (L) 144 - 423 x10(3)/mcL Final MPV 9.3 6.8 - 10.8 fL Final Reviewed By Jeromy Jha Physical Exam Constitutional: She is oriented to person, place, and time. She appears well- developed and well-nourished. HENT: Head: Normocephalic and atraumatic. Cardiovascular: Normal rate. Pulses: Dorsalis pedis pulses are 2+ on the right side, and 2+ on the left side. Posterior tibial pulses are 2+ on the right side, and 2+ on the left side. Pulmonary/Chest: Effort normal. Abdominal: Normal appearance. Musculoskeletal: Right foot: There is normal range of motion, no tenderness, no swelling, no crepitus and no deformity. Left foot: There is normal range of motion, no tenderness, no swelling, no crepitus and no deformity. Feet: Neurological: She is alert and oriented to person, place, and time. She has normal strength. No sensory deficit. Skin: Skin is warm and dry. No rash noted. No erythema. No pallor. Psychiatric: She has a normal mood and affect. Her behavior is normal. Judgment and thought contentnormal. Assessment and Plan: Juany was seen today for nail care. Diagnoses and all orders for this visit: Onychomycosis Encounter for long-term (current) use of medications Pain in toes of both feet Hammer toe of right foot No adverse side effects with the Lamisil. She needs to get her 6 weeks labs. She will get those today. Continue with by mouth Lamisil and topical antifungal. Discussed treatment options for the painful hammertoe. Splinting and bracing for now as well as sugar modification. Return in about 3 months (around 12/10/2016), or if symptoms worsen or fail to improve. IConnie, am functioning as the scribe for, and as dictated by Nikolas Jha DPM Login: 09/12/16, 7:56 PM documented in this encounter Miscellaneous Notes * Patient Instructions - Connie Hill Scribe - 09/10/2016 4:00 PM EDT Nail Ringworm A fungal infection of the nail (tinea unguium/onychomycosis) is common. It is common as the visiblepart of the nail is composed of cells which have no blood supply to help prevent infection. Itoccurs because fungi are everywhere and will pick any opportunity to grow on any material. Because nails are very slow growing they require up to 2 years of treatment with anti-fungal medications. The entire nail back to the base is infected. This includes approximately ? of the nail whichyou cannot see. If your caregiver has prescribed a medication by mouth, take it every day and as directed. No progress will be seen for at least 6 to 9 months. Do not be disappointed! Because fungi live on cells with little or no exposure to blood supply, medication delivery to the infection is slow; thus thecure is slow. It is also why you can observe no progress in the first 6 months. The nail becoming cured is the base of the nail, as it has the blood supply. Topical medication such as creams and ointments are usually not effective. Important in successful treatment of nail fungus is closely following the medication regimen that your doctor prescribes. Sometimes you and your caregiver may elect to speed up this process by surgical removal of all the nails. Even this may still require 6 to 9 months of additional oral medications. See your caregiver as directed. Remember there will be no visible improvement for at least 6 months. See your caregiver sooner if other signs of infection (redness and swelling) develop. This information is not intended to replace advice given to you by your health care provider. Make sure you discuss any questions you have with your health care provider. Document Released: 05/09/2001 Document Revised: 09/26/2015 Document Reviewed: 11/13/2015 [email or web address] Patient Education ??2016 [email or web address] documented in this encounter Plan of Treatment Upcoming Encounters Date Type Department Care Team (Late st Contact Info) Description 05/24/2024 10:30 AM EST Office Visit [facility] [address] [place] [phone] Nikolas Jha DPM [address] [place] [address] [address] [place] [phone] documented as of this encounter Visit Diagnoses Diagnosis Onychomycosis- Primary Dermatophytosis of nail Encounter for long-term (current) use of medications Encounter for long-term (current) use of other medications Pain in toes of both feet Hammer toe of right foot documented in this encounter Additional Health Concerns Assessment Noted Time A fall risk assessment has been complete d for the patient 07/29/2016 10:44 AM EST documented as of this encounter Care Teams Senior Product Development Manager Relationship Specialty Start Date End Date Carlos Manuel Barragan [address] [facility] [address] [place] [address] PCP - General 07/03/10 documented as of this encounter
--- OUTSIDE RECORDS SUMMARY | 2024-05-04 22:54 | XMS_ITS | Encounter Summary ---
Author Organization [place] [address] Care Team Providers Care Telemarketing Supervisor Name Role Phone Carlos Manuel Barragan Primary Care Provider [phone] Reason for Visit * Reason Comments Nail Problem * Consultation (Routine) - Closed Specialty Diagnoses / Procedures Referred By Heather santos Referred To Contact [facility] Diagnoses fungus Procedures NEW PATIENT Carlos Manuel Barragan [address] [facility] [address] [place] [address] Phone: tel: fax: Nikolas Jha DPM [address] [facility] [place] [address] [place] [phone] Phone: tel: fax: Referral ID Status Reason Start Date Expiration Date Visits Re quested Visits Authorized [id number] Closed 07/29/2016 07/29/2017 99 99 Encounter Details Date Type Department Care Team (Late st Contact Info) Description 07/08/2017 3:45 PM EST Office Visit [facility] [address] [place] [phone] Nikolas Jha DPM [address] [place] [address] [place] [phone] Paronychia of toe, unspecified laterality (Primary Dx); Hammer toe of right foot Social History [...] - Inhaled Oxygen Concentration - - Weight 87.1 kg (192 lb) 07/08/2017 4:07 PM EST Height 167.6 cm (5' 6 ) 07/08/2017 4:07 PM EST Body Mass Index 30.99 07/08/2017 4:07 PM EST documented in this encounter Functional [...] Progress Notes * Nikolas Jha DPM - 07/08/2017 3:45 PM EST Images from the original note were not included. Subjective: Patient ID: Juany Alarcon is a 67 y.o. female. Chief Complaint: Nail Problem HPI Patient presenting for ingrown toenail. Also painful hammertoe right second toe. Patients past medical, family and social histories were reviewed and updated. There were no changesexcept as noted. Past Medical History: Diagnosis Date ??? Anemia [...] Outpatient Prescriptions Marked as Taking for the 07/08/17 encounter (Office Visit) with Nikolas Jha DPM Medication Sig Dispense Refill ??? anastrozole (ARIMIDEX) 1 mg Oral Tablet Take 1 Tab by mouth daily. 90 Tab 3 ??? anastrozole (ARIMIDEX) 1 mg Oral Tablet Take 1 Tab by mouth daily. 90 Tab 3 ??? anastrozole (ARIMIDEX) 1 mg Oral Tablet [...] 10 mg by mouth every evening. ??? PARoxetine (PAXIL) 10 mg Oral Tablet Take 1 Tab by mouth daily. 30 Tab 2 ??? potassium chloride SA (K-DUR;KLOR-CON) 20 mEq Oral Tab Sust.Rel. Particle/Crystal Take 20 mEq by mouth daily. ??? vitamin E 1,000 unit Oral Capsule Take 1,000 Units by mouth daily. Reported on 07/29/2016 Review of Systems Constitutional: Positive for activity [...] systems reviewed and are negative. Objective: Vitals: 07/08/17 1607 Weight: 192 lb (87.1 kg) Height: 5' 6 (1.676 m) Body mass index is 30.99 kg/m??. Physical Exam Constitutional: She is oriented [...] this visit: Paronychia of toe, unspecified laterality Comments: b/l great toe borders Needs a total matrixectomy at some point. Needs a hammertoe repair at some point. Return if symptoms worsen or fail to improve. Note written by CEASAR Quintana acting as scribe for Nikolas Jha DPM. I have reviewed this note and it accurately reflects my work and decisions made during this visit Nikolas Jha DPM. documented in this encounter Miscellaneous Notes * Patient Instructions - Elissa Staples ABR-OE - 07/08/2017 4:18 PM EST Images from the original note were not included. Patient Education Fall Prevention in the Home Falls can cause injuries. They can happen to people of all ages. There are many things you can do to make your home safe and to help prevent falls. WHAT CAN I DO ON THE OUTSIDE OF MY HOME? ?? Regularly fix the edges of walkways and driveways and fix any cracks. ?? Remove anything that might make you trip as you walk through a door, such as a raised step or threshold. ?? Trim any bushes or trees on the path to your home. ?? Use bright outdoor lighting. ?? Clear any walking paths of anything that might make someone trip, such as rocks or tools. ?? Regularly check to see if handrails are loose or broken. Make sure that both sides of any steps have handrails. ?? Any raised decks and porches should have guardrails on the edges. ?? Have any leaves, snow, or ice cleared regularly. ?? Use sand or salt on walking paths during winter. ?? Clean up any spills in your garage right away. This includes oil or grease spills. WHAT CAN I DO IN THE BATHROOM? ?? Use night lights. ?? Install grab bars by the toilet and in the tub and shower. Do not use towel bars as grab bars. ?? Use non-skid mats or decals in the tub or shower. ?? If you need to sit down in the shower, use a plastic, non-slip stool. ?? Keep the floor dry. Clean up any water that spills on the floor as soon as it happens. ?? Remove soap buildup in the tub or shower regularly. ?? Attach bath mats securely with double-sided non-slip rug tape. ?? Do not have throw rugs and other things on the floor that can make you trip. WHAT CAN I DO IN THE BEDROOM? ?? Use night lights. ?? Make sure that you have a light by your bed that is easy to reach. ?? Do not use any sheets or blankets that are too big for your bed. They should not hang down onto the floor. ?? Have a firm chair that has side arms. You can use this for support while you get dressed. ?? Do not have throw rugs and other things on the floor that can make you trip. WHAT CAN I DO IN THE KITCHEN? ?? Clean up any spills right away. ?? Avoid walking on wet floors. ?? Keep items that you use a lot in [id number] places. ?? If you need to reach something above you, use a strong step stool that has a grab bar. ?? Keep electrical cords out of the way. ?? Do not use floor chinese or wax that makes floors slippery. If you must use wax, use non-skid floor wax. ?? Do not have throw rugs and other things on the floor that can make you trip. WHAT CAN I DO WITH MY STAIRS? ?? Do not leave any items on the stairs. ?? Make sure that there are handrails on both sides of the stairs and use them. Fix handrails that are broken or loose. Make sure that handrails are as long as the stairways. ?? Check any carpeting to make sure that it is firmly attached to the stairs. Fix any carpet that is loose or worn. ?? Avoid having throw rugs at the top or bottom of the stairs. If you do have throw rugs, attach them to the floor with carpet tape. ?? Make sure that you have a light switch at the top of the stairs and the bottom of the stairs. Ifyou do not have them, ask someone to add them for you. WHAT ELSE CAN I DO TO HELP PREVENT FALLS? ?? Wear shoes that: Do not have high heels. Have rubber bottoms. Are comfortable and fit you well. Are closed at the toe. Do not wear sandals. ?? If you use a stepladder: Make sure that it is fully opened. Do not climb a closed stepladder. Make sure that both sides of the stepladder are locked into place. Ask someone to hold it for you, if possible. ?? Clearly marly and make sure that you can see: Any grab bars or handrails. First and last steps. Where the edge of each step is. ?? Use tools that help you move around (mobility aids) if they are needed. These include: Canes. Walkers. Scooters. Crutches. ?? Turn on the lights when you go into a dark area. Replace any light bulbs as soon as they burn out. ?? Set up your furniture so you have a clear path. Avoid moving your furniture around. ?? If any of your floors are uneven, fix them. ?? If there are any pets around you, be aware of where they are. ?? Review your medicines with your doctor. Some medicines can make you feel dizzy. This can increase your chance of falling. Ask your doctor what other things that you can do to help prevent falls. This information is not intended to replace advice given to you by your health care provider. Make sure you discuss any questions you have with your health care provider. Document Released: 03/08/2010 Document Revised: 09/26/2015 Document Reviewed: 06/16/2015 [employer] Patient Education ??2015 [employer] documented in this encounter Plan of Treatment Upcoming Encounters Date Type Department Care Team (Late st Contact Info) Description 05/24/2024 10:30 AM EST Office Visit [facility] [address] [place] [phone] Nikolas Jha DPM [address] [place] [address] [address] [place] [address] [place] [phone] documented as of this encounter Visit Diagnoses Diagnosis Paronychia of toe, unspecified laterality- Primary Hammer toe of right foot documented in this encounter Additional Health Concerns Assessment Noted Time A fall risk assessment has been complete d for the patient 07/29/2016 10:44 AM EST documented as of this encounter Care Teams Telemarketing Supervisor Relationship Specialty Start Date End Date Carlos Manuel Barragan [address] [place] [address] [address] [place] [id number] PCP - General 07/03/10 documented as of this encounter
--- OUTSIDE RECORDS SUMMARY | 2024-05-04 22:54 | XMS_ITS | Encounter Summary ---
Author Organization [place] [address] Care Team Providers Care Swing Saw Operator Name Role Phone Carlos Manuel Barragan Primary Care Provider [phone] Reason for Visit * Auth/Cert/Inpt Specialty Diagnoses / Procedures Referred By Contniurka t Referred To Contact Diagnoses Osteoarthritis of left knee, unspecified osteoarthritis type Osteoarthritis of left knee, unspecified osteoarthritis type [M17.12] Procedures PA TOTAL KNEE ARTHROPLASTY LEFT TOTAL KNEE ARTHROPLASTY Referral ID Status Reason Start Date Expiration Date Visits Re quested Visits Authorized [id number] 1 1 Encounter Details Date Type Department Care Team (Late st Contact Info) Description 09/29/2018 9:50 AM EDT Anesthesia Event EDG PERIOP [place] [address] Delano Schmid MD [address] [facility] [address] [place] [id number] Anesthesia Record Procedure Summary Procedure Name Responsible Anesthesiologist Anesthesia Start Time Anesthesia Stop Time TOTAL KNEE REPLACEMENT/ARTHROP LASTY (Left: Knee) Delano Schmid MD 09/29/18 0950 09/29/18 1139 Events Date Time Event Comment 09/29/2018 0907 AN Equip Check 0925 Block/ Injection Placed 0928 0950 An Start 0955 An Start Data 0955 Immediate Pre Anesthetic Ass es 1009 Block/ Injection Placed 1010 Anesthesia Ready 1034 Time out 1035 An Tourn Inflated 1036 Incision 1105 An Tourn Deflated 1132 an stop data 1139 Handoff I completed my SBAR handoff to [...] acknowledgement of understanding from the receiving PACU/ICU steam meter reader 1139 An Stop Meds Name Total SPINAL TRAY bupivacaine 0.75%-dext richard 8.25% injection 1.7 mL midazolam (VERSED) injection 1 mg/mL 2 m g propofol (DIPRIVAN) infusion 10 mg/mL 41 4,448.5 mcg ondansetron (ZOFRAN) injection 4 mg /2 m L 4 mg ephedrine injection 20 mg clindamycin (CLEOCIN) 900 mg in 50 mL de xtrose 5% IVPB 900 mg 900 mg bupivacaine (MARCAINE) injection 0.5% (P F) 30 mL tranexamic acid injection 1,000 mg dexamethasone (DECADRON) injection 4 mg/ mL 4 mg lactated ringers infusion 1,000 mL * Agents Name O2 * Blood No blood administrations on file. Lines, Drains, and Airways Type Details Placement Removal Peripheral IV 09/29/18; 0856; 20; Right; Hand; kimmie barba; 1; None; 10/02/18; 1028; Therapy completed; Catheter intact 09/29/18 0856 by Brittny Martel, CRISTOBAL 10/02/18 1028 by Arpita Lyn, CRISTOBAL Airway Device: Nasal Cannul a Salter; Placement Date: 09/29/18; Placement Time: 1005 (created via procedure documentation); Removal Date: 10/02/18; Removal Time: 164609/29/18 1005 by Abhi Lopez CRNA 10/02/18 1647 by Discharge Provider, Automatic Incision/Procedural Site 09/29/18; 1040; Knee; Left; 10/02/18; 164609/29/18 1040 by Anika Pascal RN 10/02/18 1647 by Discharge Provider, Automatic documented in this [...] documented in this encounter Procedure Notes * Abhi Lopez ELECTRIC MULE OPERATOR - 09/29/2018 10:16 AM EDTAssociated Order(s): SPINAL BLOCK Spinal Block by Anesthesia Procedure Date/Time: 09/29/2018 10:09 AM Anesthesiologist: DELANO SCHMID ELECTRIC MULE OPERATOR: ABHI LOPEZ Performed by: ELECTRIC MULE OPERATOR and anesthesiologist Patient Location: OR Reason for Block: Primary anesthetic Checklist: Patient identified- 2 criteria, Anticoagulant confirmed, Block plan confirmed, Necessaryblock equipment present, Resuscitaion equipment available, IV access functioning, Supplemental O2 applied, if needed, Allergies confirmed, Surgical procedure consent verified, Block site marked, Drug/solution labeled, SAMEER recommended monitors applied, Sedation given, if needed and Aseptic technique used Spinal Block Immediate pre anesthetic assessment completed? Yes Patient Position: Sitting Prep: ChloraPrep Monitoring: Heart rate, school bus monitor and continuous pulse ox Approach: Midline Location: L3-4 Injection Technique: Single-shot Needle and Dose Needle Type: Kurtis Needle Gauge: 25 G Number of Attempts: >3 (add comment) (difficult to place; kept hitting os) Bupivicaine 0.75% with 8% Dextrose 1.7 ml Time Dose Given: 10:09 Assessment Neuraxial Block: free flowing CSF and clear CSF Events: no complications noted Comments: -heme, +csf/swirl; difficult placement * Abhi Lopez CRNA - 09/29/2018 10:05 AM EDTAssociated Order(s): INTRAOP AIRWAY PLACEMENT Intraop Airway Placement: Induction type: IV Airway type: Nasal cannula salter * Delano Schmid MD - 09/29/2018 9:29 AM EDTAssociated Order(s): PERIPHERAL BLOCK Peripheral Block by Anesthesia Procedure Date/Time: 09/29/2018 9:25 AM Patient location during procedure: pre-op Reason for block: at surgeon's request and post-op pain management Staff and pre procedure checks Anesthesiologist: DELANO SCHMID Performed: anesthesiologist Preanesthetic Checklist: Allergies confirmed, Block plan confirmed, Necessary block equipment present, Supplemental O2 applied, if needed, Anticoagulant confirmed, Block site marked, Patient identified- 2 criteria, Surgical procedure consent verified, Aseptic technique used, Drug/solution labeled, Resuscitaion equipment available, SAMEER recommended monitors applied, IV access functioning and Sedation given, if needed Immediate perianesthetic assessment completed: Yes Patient position: Prep: Chloraprep and Patient Draped Monitoring: EKG, O2 Sat and Mental status assessed Peripheral Block Block type: Adductor Canal Block Laterality: Left Injection technique: single-shot Pain pump: no pain pump placed Medication: 30ml, Bupivacaine 0.5% Needle Needle type: Stimuplex Needle gauge: 21 G Needle length: 4 in (100mm) Nerve localization: ultrasound guidance Ultrasound probe: linear Ultrasound needle approach: in-plane Assessment Block success: complete Events: Uneventful Heart rate change: no Blood aspirated: no Paresthesia pain: absent Resistance on injection: normal Intermittent incremental injection LA at 5ml LA surrounding nerve by ultrasonographc visualization documented in this encounter OR Notes * Anesthesia Post-op Follow-up Note - Luciana Mensah APRN - 09/30/2018 10:43 AM EDT Post-op Nerve Block Follow-up POD #1 Block Type:left adductor canal block single shot by Dr Schmid for LTKR Patient reports block is still working. Patient reports aching pain in back of left knee rated at a(n) 4 and None today and None yesterday. Patient has taken Tylenol x1 and Oxycodone every 4-6 hours with relief. No sensory/motor deficits noted. VSS. Continue use of prn medication for pain control. * Anesthesia Postprocedure Evaluation - Delano Schmid MD - 09/29/2018 12:54 PM EDT Post-Anesthesia Evaluation Note Patient Name: Juany Alarcon Patient Date: September 29, 2018 Patient Location: PACU Post OP Vitals: stable Level of Consciousness: awake and alert Nausea Controlled: yes Post Anesthesia Pain: adequate analgesia Long Acting Local Anesthetic: single shot Airway Patency: patent Difficult Airway: no Respiratory: nasal canula and spontaneous ventilation Cardiovascular: stable Hydration: euvolemic Perioperative complications: NONE Vitals: 09/29/18 1230 BP: 126/67 Pulse: 51 Resp: 13 Temp: SpO2: 99% * Anesthesia Preprocedure Evaluation - Delano Schmid MD - 09/18/2018 4:36 PM EDT Pre-Anesthesia Evaluation Note Patient Name: Juany Alarcon Sex: female Patient : 1950 Age: 68 y.o. Patient Date: September 18, 2018 Procedure(s): LEFT TOTAL KNEE ARTHROPLASTY Anesthesia Evaluation Previous anesthesia. History of anesthetic complications: PONV No family history of anesthesia complications: Airway Mallampati: II Mouth: Small mouth/Arched pallate TM distance: >3 FB Neck ROM: full No increased risk of difficult airway Dental - normal exam Pulmonary (+) Sleep apnea on CPAP Physical exam: Comments: Clear to auscultation (-) no COPD, no asthma, no URI cough sputum Cardiovascular Comments: Sees Dr. 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 Anesthesia Plan ASA 3 Last solid intake: The patient has not eaten within the last 8 hours. Last clear liquid intake: The patient has not had clear liquids within the last 2 hours. Anesthesia Plan: regional, spinal and MAC Induction: intravenous Monitors: STD PONV Risk Score: 5. Score of 3 or more is High Risk for PONV, combination antiemetic prophylaxis isindicated. Informed consent Anesthetic plan and risks discussed with: patient and family. Chart Reviewed and patient examined documented in this encounter Miscellaneous Notes * Addendum Note - Luciana Mensah APRN - 09/30/2018 10:45 AM EDT Addendum created 09/30/18 1045 by Luciana Mensah APRN Actions taken from a BestPractice Advisory, Sign clinical note documented in this encounter Plan of Treatment Upcoming Encounters Date Type Department Care Team (Late st Contact Info) Description 05/24/2024 10:30 AM EST Office Visit [facility] [address] [place], [place] [phone] [address]ha [address] [place] [address] [place] [phone] documented as of this encounter Procedures Procedure Name Priority Date/Time Associated Diagnosis Comments SPINAL BLOCK Routine 09/29/2018 10:16 AM EDT INTRAOP AIRWAY PLACEMENT Routine 09/29/2018 10:05 AM EDT PERIPHERAL BLOCK Routine 09/29/2018 9:29 AM EDT documented in this encounter Results * SPINAL BLOCK (09/29/2018 10:16 AM EDT) Narrative [facility] - 09/29/2018 10:16 AM EDT Abhi Lopez CRNA ? 09/29/2018 10:17 AM Spinal Block by Anesthesia Procedure Date/Time: 09/29/2018 10:09 AM Anesthesiologist: ??DELANO SCHMID ELECTRIC MULE OPERATOR: ??ABHI LOPEZ Performed by: ELECTRIC MULE OPERATOR and anesthesiologist Patient Location: ??OR Reason for Block: ??Primary anesthetic Checklist: Patient identified- 2 criteria, Anticoagulant confirmed, Block plan confirmed, Necessary block equipment present, Resuscitaion equipment available, IV access functioning, Supplemental O2 applied, if needed, Allergies confirmed, Surgical procedure consent verified, Block site marked, Drug/solution labeled, SAMEER recommended monitors applied, Sedation given, if needed and Aseptic technique used Spinal Block Immediate pre anesthetic assessment completed? Yes Patient Position: ??Sitting Prep: ChloraPrep ?? Monitoring: ??Heart rate, school bus monitor and continuous pulse ox Approach: ??Midline Location: ??L3-4 Injection Technique: ??Single-shot Needle and Dose Needle Type: ??Kurtis Needle Gauge: ??25 G Number of Attempts: >3 (add comment) (difficult to place; kept hitting os) Bupivicaine 0.75% with 8% Dextrose 1.7 ml Time Dose Given: ??10:09 Assessment Neuraxial Block: free flowing CSF and clear CSF Events: no complications noted Comments: -heme, +csf/swirl; difficult placement Procedure Note Abhi Lopez CRNA - 09/29/2018 10:16 AM EDT Spinal Block by Anesthesia Procedure Date/Time: 09/29/2018 10:09 AM Anesthesiologist: DELANO SCHMID ELECTRIC MULE OPERATOR: ABHI LOPEZ Performed by: ELECTRIC MULE OPERATOR and anesthesiologist Patient Location: OR Reason for Block: Primary anesthetic Checklist: Patient identified- 2 criteria, Anticoagulant confirmed, Blockplan confirmed, Necessary block equipment present, Resuscitaion equipmentavailable, IV access functioning, Supplemental O2 applied, if needed,Allergies confirmed, Surgical procedure consent verified, Block sitemarked, Drug/solution labeled, SAMEER recommended monitors applied, Sedationgiven, if needed and Aseptic technique used Spinal Block Immediate pre anesthetic assessment completed? Yes Patient Position: Sitting Prep: ChloraPrep Monitoring: Heart rate, school bus monitor and continuous pulse ox Approach: Midline Location: L3-4 Injection Technique: Single-shot Needle and Dose Needle Type: Kurtis Needle Gauge: 25 G Number of Attempts: >3 (add comment) (difficult to place; kept hittingos) Bupivicaine 0.75% with 8% Dextrose 1.7 ml Time Dose Given: 10:09 Assessment Neuraxial Block: free flowing CSF and clear CSF Events: no complications noted Comments: -heme, +csf/swirl; difficult placement us Delano Schmid MD ANESTHESIA ORDERABLES Fin al Result Performing Organization Address [facility] Co de Phone Number [facility] [address] [place] [phone] * INTRAOP AIRWAY PLACEMENT (09/29/2018 10:05 AM EDT) Narrative [facility] - 09/29/2018 10:05 AM EDT Abhi Lopez CRNA ? 09/29/2018 10:05 AM Intraop Airway Placement: ??Induction type: ??IV ??Airway type: ??Nasal cannula salter Procedure Note Abhi Lopez CRNA - 09/29/2018 10:05 AM EDT Intraop Airway Placement: Induction type: IV Airway type: Nasal cannula salter Delano Schmid MD PA ANESTHESIA Final Res ult Performing Organization Address [facility] de Phone Number [facility] [address] [place] [phone] * PERIPHERAL BLOCK (09/29/2018 9:29 AM EDT) Narrative [facility] - 09/29/2018 9:29 AM EDT Delano Schmid MD ? 09/29/2018 ??9:30 AM Peripheral Block by Anesthesia Procedure Date/Time: 09/29/2018 9:25 AM Patient location during procedure: pre-op Reason for block: at surgeon's request and post-op pain management Staff and pre procedure checks Anesthesiologist: DELANO SCHMID Performed: anesthesiologist Preanesthetic Checklist: Allergies confirmed, Block plan confirmed, Necessary block equipment present, Supplemental O2 applied, if needed, Anticoagulant confirmed, Block site marked, Patient identified- 2 criteria, Surgical procedure consent verified, Aseptic technique used, Drug/solution labeled, Resuscitaion equipment available, SAMEER recommended monitors applied, IV access functioning and Sedation given, if needed Immediate perianesthetic assessment completed: Yes Patient position: Prep: Chloraprep and Patient Draped Monitoring: EKG, O2 Sat and Mental status assessed Peripheral Block Block type: Adductor Canal Block Laterality: Left Injection technique: single-shot Pain pump: no pain pump placed Medication: 30ml, Bupivacaine 0.5% Needle Needle type: Stimuplex Needle gauge: 21 G Needle length: 4 in (100mm) Nerve localization: ultrasound guidance Ultrasound probe: linear Ultrasound needle approach: in-plane Assessment Block success: complete Events: Uneventful Heart rate change: no Blood aspirated: no Paresthesia pain: absent Resistance on injection: normal Intermittent incremental injection LA at 5ml LA surrounding nerve by ultrasonographc visualization Procedure Note Delano Schmid MD - 09/29/2018 9:29 AM EDT Peripheral Block by Anesthesia Procedure Date/Time: 09/29/2018 9:25 AM Patient location during procedure: pre-op Reason for block: at surgeon's request and post-op pain management Staff and pre procedure checks Anesthesiologist: DELANO SCHMID Performed: anesthesiologist Preanesthetic Checklist: Allergies confirmed, Block plan confirmed,Necessary block equipment present, Supplemental O2 applied, if needed,Anticoagulant confirmed, Block site marked, Patient identified- 2criteria, Surgical procedure consent verified, Aseptic technique used,Drug/solution labeled, Resuscitaion equipment available, SAMEER recommendedmonitors applied, IV access functioning and Sedation given, if needed Immediate perianesthetic assessment completed: Yes Patient position: Prep: Chloraprep and Patient Draped Monitoring: EKG, O2 Sat and Mental status assessed Peripheral Block Block type: Adductor Canal Block Laterality: Left Injection technique: single-shot Pain pump: no pain pump placed Medication: 30ml, Bupivacaine 0.5% Needle Needle type: Stimuplex Needle gauge: 21 G Needle length: 4 in (100mm) Nerve localization: ultrasound guidance Ultrasound probe: linear Ultrasound needle approach: in-plane Assessment Block success: complete Events: Uneventful Heart rate change: no Blood aspirated: no Paresthesia pain: absent Resistance on injection: normal Intermittent incremental injection LA at 5ml LA surrounding nerve by ultrasonographc visualization us Delano Schmid MD ANESTHESIA ORDERABLES Fin al Result [address] [id number] documented in this encounter Visit Diagnoses Not on filedocumented in this encounter Administered Medications Inactive Administered Medications - up to 1 most recent administrations Medication Order MAR Action Action Date Dose Rate Site bupivacaine (MARCAINE) 0.5 % (5 mg/mL) injection PRN (Anesthesia), Starting on Fri09/29/18 at 0925, Until Fri09/29/18 at 1139, Anesthesia Intra-op Given 09/29/2018 9:25 AM EDT 30 mL bupivacaine 0.75% in dextrose 8.25% (intrathecal) (SENSORCAINE) 0.75 % (7.5 mg/mL) injection Intrathecal, PRN (Anesthesia), Starting on Fri09/29/18 at 1009, Until Fri09/29/18 at 1139, Anesthesia Intra-op Given 09/29/2018 10:09 AM EDT 1.7 mL clindamycin (CLEOCIN) 900 mg in 50 mL dextrose 5% IVPB 900 mg 900 mg, Intravenous, ONCE, 1 dose, On Fri09/29/18 at 0900, Administer over 60 Minutes Given 09/29/2018 9:50 AM EDT 900 mg dexamethasone (DECADRON) injection PRN (Anesthesia), Starting on Fri09/29/18 at 1033, Until Fri09/29/18 at 1139, Anesthesia Intra-op Given 09/29/2018 10:33 AM EDT 4 mg ePHEDrine injection Intravenous, PRN (Anesthesia), Starting on Fri09/29/18 at 1013, Until Fri09/29/18 at 1139, Anesthesia Intra-op Given 09/29/2018 10:21 AM EDT 10 mg lactated ringers infusion Intravenous, at 100 mL/hr, PREPROCEDURE CONTINUOUS, Starting on Fri09/28/18 at 0850, Until Fri09/29/18 at 1557, To be given in SDS/Pre-op Holding Area, Pre-op (Holding/[facility] Med[facility]) New Bag 09/29/2018 11:30 AM EDT midazolam (VERSED) injection Intravenous, PRN (Anesthesia), Starting on Fri09/29/18 at 0920, Until Fri09/29/18 at 1139, Anesthesia Intra-op Given 09/29/2018 9:21 AM EDT 1 mg ondansetron (ZOFRAN) injection Intravenous, PRN (Anesthesia), Starting on Fri09/29/18 at 1033, Until Fri09/29/18 at 1139, Nausea, Anesthesia Intra-op Given 09/29/2018 10:33 AM EDT 4 mg propofol (DIPRIVAN) infusion 10 mg/mL Intravenous, CONTINUOUS PRN, Starting on Fri09/29/18 at 1012, Until Fri09/29/18 at 1139, Anesthesia Intra-op Rate/Dose Change 09/29/2018 10:38 AM EDT 50 mcg/kg/min 28.3 mL/hr tranexamic acid injection PRN (Anesthesia), Starting on Fri09/29/18 at 1018, Until Fri09/29/18 at 1139, Administer over 10 Minutes, Anesthesia Intra-op Given 09/29/2018 10:18 AM EDT 1,000 mg documented in this encounter Additional Health Concerns Assessment Noted Time A fall risk assessment has been complete d for the patient 07/29/2016 10:44 AM EST documented as of this encounter Care Teams Swing Saw Operator Relationship Specialty Start Date End Date Carlos Manuel Barragan [address] [place] [address] [address] GE[place]GE QUINTANILLA [id number] PCP - General 07/03/10 documented as of this encounter
--- OUTSIDE RECORDS SUMMARY | 2024-05-04 22:54 | XMS_ITS | Encounter Summary ---
Author Organization [place] [address] Care Team Providers Care News Internship Name Role Phone Carlos Manuel Barragan Primary Care Provider [phone] Reason for Visit * Reason Comments Gynecologic Exam * Consultation (Routine) - Closed Specialty Diagnoses / Procedures Referred By Contac t Referred To Contact Obstetrics & Gynecology / Obstetrics and Gynecology Diagnoses wet trimmer annual Procedures ANNUAL OFFICE VISIT Adrian Marshall MD Referral ID Status Reason Start Date Expiration Date Visits Re quested Visits Authorized [id number] Closed 02/27/2017 02/27/2018 99 99 Encounter Details Date Type Department Care Team (Late st Contact Info) Description 02/27/2017 10:40 AM EDT Office Visit [facility] [address] [place] [address] Adrian Marshall MD Well woman exam (Primary Dx); History of breast cancer Social History Tobacco Use [...] Sign Reading Time Taken Comments Blood Pressure 154/82 02/27/2017 10:36 AM EDT Pulse 58 02/27/2017 10:36 AM EDT Temperature - - Respiratory Rate - - Oxygen Saturation - - Inhaled Oxygen Concentration - - Weight 87.1 kg (192 lb) 02/27/2017 10:36 AM EDT Height 167.6 cm (5' 6 ) 02/27/2017 10:36 AM EDT Body Mass Index 30.99 02/27/2017 10:36 AM EDT documented in this encounter Functional [...] Progress Notes * Adrian Marshall MD - 02/27/2017 10:40 AM EDT Images from the original note were not included. Subjective Subjective: Patient ID: Juany Alarcon is a 66 y.o. female. Chief Complaint Patient presents with ??? Gynecologic Exam HPI Patient presents for annual exam and denies new wet trimmer problems. She is s/p left mastectomy and reconstruction in 2015. She continues on arimidex without side effects. She had a normal mammogram earlier this year. She denies menopausal symptoms. Patients past medical, family and social histories were reviewed and updated. There were no changesexcept as noted. Review of Systems Constitutional: Negative for fatigue and unexpected weight change. Gastrointestinal: Negative for abdominal distention, abdominal pain, constipation, diarrhea, nauseaand rectal pain. Genitourinary: Negative for difficulty urinating, dyspareunia, dysuria, enuresis, flank pain, frequency, hematuria, menstrual problem, pelvic pain, urgency, vaginal bleeding, vaginal discharge and vaginal pain. Musculoskeletal: Negative for back pain. Neurological: Negative for headaches. Psychiatric/Behavioral: Negative for dysphoric mood and sleep disturbance. Objective Objective: Vitals: 02/27/17 1036 BP: 154/82 Pulse: 58 Weight: 192 lb (87.1 kg) Height: 5' 6 (1.676 m) Body mass index is 30.99 kg/m??. Physical Exam Constitutional: She appears well-developed and well-nourished. HENT: Head: Normocephalic and atraumatic. Eyes: Pupils are equal, round, and reactive to light. Neck: No thyromegaly present. Cardiovascular: Normal rate, regular rhythm and normal heart sounds. Exam reveals no gallop and no friction rub. No murmur heard. Pulmonary/Chest: Effort normal and breath sounds normal. She has no wheezes. She has no rales. She exhibits no tenderness. Right breast exhibits no inverted nipple, no mass, no nipple discharge, no skin change and no tenderness. Abdominal: She exhibits no distension and no mass. There is no tenderness. There is no rebound and no guarding. Genitourinary: Vagina normal and uterus normal. No breast swelling, tenderness, discharge or bleeding. There is no rash, tenderness or lesion on the right labia. There is no rash, tenderness or lesion on the left labia. Uterus is not deviated, not enlarged and not tender. Cervix exhibits no motion tenderness and no discharge. Right adnexum displays no mass and no tenderness. Left adnexum displaysno mass and no tenderness. No erythema, tenderness or bleeding in the vagina. No foreign body in the vagina. No vaginal discharge found. Genitourinary Comments: Atrophic vaginitis is noted on exam Lymphadenopathy: Right: No inguinal adenopathy present. Left: No inguinal adenopathy present. Nursing note and vitals reviewed. Assessment and Plan: Juany was seen today for gynecologic exam. Diagnoses and all orders for this visit: Well woman exam - ASSISTED LIVING CARE MANAGER CYTOLOGY REQUEST (PAP ONLY); Future - HI CA SCREEN;PELVIC/BREAST EXAM - HI OBTAINING SCREEN PAP SMEAR History of breast cancer Return in about 1 year (around 02/27/2018). documented in this encounter Plan of Treatment Upcoming Encounters Date Type Department Care Team (Late st Contact Info) Description 05/24/2024 10:30 AM EST Office Visit [facility] [address] [place] [phone] Nikolas Jha Mitzi [address] [place] [address] [place] [phone] Scheduled Orders Name Type Priority Associated Diagnoses Orde r Schedule ASSISTED LIVING CARE MANAGER CYTOLOGY REQUEST (PAP ONLY) Lab Routine Well woman exam 1 Occurrences starting 02/27/2017 until 08/26/2017 HI CA SCREEN;PELVIC/BREAST EXAM HI Charge Routine Well woman exam Ordered: 02/27/2017 HI OBTAINING SCREEN PAP SMEAR HI Charge Routine Well woman exam Ordered: 02/27/2017 documented as of this encounter Visit Diagnoses Diagnosis Well woman exam- Primary Routine general medical examination at a health care facility History of breast cancer Personal history of malignant neoplasm of breast documented in this encounter Additional Health Concerns Assessment Noted Time A fall risk assessment has been complete d for the patient 07/29/2016 10:44 AM EST documented as of this encounter Care Teams News Internship Relationship Specialty Start Date End Date Carlos Manuel Barragan [address] [facility] [address] [place] [address] PCP - General 07/03/10 documented as of this encounter
--- OUTSIDE RECORDS SUMMARY | 2024-05-04 22:54 | XMS_ITS | Encounter Summary ---
Author Organization [place] [address] Care Team Providers Care Motion Picture Operator Name Role Phone Carlos Manuel Barragan Primary Care Provider [phone] Reason for Visit * Auth/Cert/Inpt Specialty Diagnoses / Procedures Referred By Heather t Referred To Contact Diagnoses Carpal tunnel syndrome on right Carpal tunnel syndrome on left Carpal tunnel syndrome on right [G56.01] Carpal tunnel syndrome on left [G56.02] Procedures MD REVISE MEDIAN N/CARPAL TUNNEL SURG BILATERAL CARPAL TUNNEL RELEASE Referral ID Status Reason Start Date Expiration Date Visits Re quested Visits Authorized [id number] 1 1 Encounter Details Date Type Department Care Team (Latest Contact Info) Description 02/12/2018 7:31 AM EDT - 02/12/2018 9:07 AM ED[place] [address] Francisco Javier Lepe MD Discharge Disposition: Home or Self Care Social [...] do not have an appointment scheduled, call [facility] [phone] or [phone] Anticoagulation therapy medications: may restart aspirin, Plavix, and Coumadin on the day of surgery. Patient or Responsible [employer] 02/10/2018 Time Nurse Signature 02/10/2018 Time Francisco Javier Lepe MD documented in this [...] documented in this encounter Procedure Notes * rFancisco Javier Lepe MD - 02/12/2018 8:25 AM EDT Images from the original note were not included. [id number] PATIENT: DIAMANTE EDOUARD DATE OF : 1950 [...] ??? Review instructions provided by your surgeon. Gauger Delivery ??? On the day of surgery, it is important to have a Gauger Delivery, someone who is 18 years or older, [...] or near the operative extremity. ??? Nail zambian must be removed from operative extremity. Personal [...] a Living Will and Durable Power of Cardiology Physician Assistant for Healthcare, please bring a copy. ??? [...] 10:30 AM EST Office Visit [facility] [address] [place] [phone] Nikolas Jha, [address] [place] [address] [place] [phone] documented as of this encounter Procedures Procedure Name Priority Date/Time Associated Diagnosis Comments CARPAL TUNNEL RELEASE BILATERAL 02/12/2018 8:30 AM EDT Carpal tunnel syndrome on right Carpal tunnel syndrome on left Special Needs 01/30/18 KF documented in this encounter Visit Diagnoses Diagnosis Bilateral carpal tunnel syndrome Carpal tunnel syndrome documented in this encounter Historical Medications * [...] ONCE PRN, 1 dose, Starting on Dagmar 02/12/18 at 0838, Until Dagmar 02/12/18 at 0838, Intra-op 0838 (Given - Provid er: Francisco Javier Lepe MD) documented in this encounter Orders Medications Ordered That Binu ht Not Have Been Administered Count Last Ordered Date First Ordered Date lidocaine-EPINEPHrine 9 mL, sodium bicarbonate 1 mL injection 1 02/12/2018 Discharge Count Last Ordered Date First Orde red Date DISCHARGE PATIENT 1 02/12/2018 documented in this encounter Additional Health Concerns Assessment Noted Time A fall risk assessment has been complete d for the patient 07/29/2016 10:44 AM EST documented as of this encounter Care Teams Motion Picture Operator Relationship Specialty Start Date End Date Carlos Manuel Barragan [facility] [address] [place] [address] PCP - General 07/03/10 documented as of this encounter
--- OUTSIDE RECORDS SUMMARY | 2024-05-04 22:54 | XMS_ITS | Encounter Summary ---
Author [place] [address] Care Team Providers Care Marketing Operations Specialist Name Role Phone Carlos Manuel Barragan Primary Care Provider [phone] Reason for Visit * Auth/Cert/Inpt Specialty Diagnoses / Procedures Referred By Contniurka t Referred To Contact Diagnoses Osteoarthritis of left knee, unspecified osteoarthritis type Osteoarthritis of left knee, unspecified osteoarthritis type [M17.12] Procedures [place] TOTAL KNEE ARTHROPLASTY LEFT TOTAL KNEE ARTHROPLASTY Referral ID Status Reason Start Date Expiration Date Visits Re quested Visits Authorized [id number] 1 1 Encounter Details Date Type Department Care Team (Latest Contact Info) Description 09/21/2018 9:13 AM EDT - 09/21/2018 9:59 AM EDT Hospital Encounter EDG PRE-ADMIT TESTING [facility] [place] [address] 1, [place] Pat Nurse Anticoagulation adequate (Primary Dx); Pre-op testing; Primary osteoarthritis of left knee Discharge Disposition: Home or Self Care Anesthesia Record Procedure Summary Procedure Name Responsible [...] acknowledgement of understanding from the receiving PACU/ICU endless steamer tender 1139 An Stop Meds * Agents No agents on file. * Blood No blood administrations on file. Lines, Drains, and Airways Type Details Placement Removal Peripheral IV 09/29/18; 0856; 20; Right; Hand; kimmie barba; 1; None; 10/02/18; 1028; Therapy completed; Catheter intact 09/29/18 0856 by Brittny Martel RN 10/02/18 1028 by Arpita Lyn RN Airway Device: Nasal Cannul a Salter; Placement Date: 09/29/18; Placement Time: 1005 (created via procedure documentation); Removal Date: 10/02/18; Removal Time: 16409/29/18 1005 by Lisa Roa CRNA 10/02/18 1647 by Discharge Provider, Automatic Incision/Procedural Site 09/29/18; 1040; Knee; Left; 10/02/18; 1647 09/29/18 1040 by Anika Pascal RN 10/02/18 1647 [...] Reading Time Taken Comments Blood Pressure 150/70 09/21/2018 9:55 AM EDT Pulse 70 09/21/2018 9:26 AM EDT Temperature 36.7 ??C (98.1 ??F) 09/21/2018 9:26 AM ED T Respiratory Rate - - Oxygen Saturation 99% 09/21/2018 9:26 AM EDT Inhaled Oxygen Concentration - - Weight 95.4 kg (210 lb 4 oz) 09/21/2018 9:26 AM EDT Height 167.6 cm (5' 6 ) 09/21/2018 9:26 AM EDT Body Mass Index 33.94 09/21/2018 9:26 AM EDT documented in this encounter Functional [...] this encounter Discharge Instructions * Discharge Instructions* Anika Camargo RN - 09/21/2018 9:38 AM EDT Images from the original note were not included. PREPARING FOR YOUR SURGERY Date of Surgery 09/29/18 Medications ??? Take the following pills with a small sip of water on the morning of surgery: ziac ??? Aspirin, coumadin, blood thinners, ibuprofen, Plavix, fish oil, vitamin E, any supplements, andany anti-inflammatory products may be stopped as directed [...] ??? Review instructions provided by your surgeon. State Assessed Properties Director ??? On the day of surgery, it is important to have a State Assessed Properties Director, someone who is 18 years or older, [...] operative extremity or near the operative extremity. Nail azeri must be removed from operative extremity. How to Use Chlorhexidine Before Surgery Chlorhexidine is a germ-killing??(antiseptic) solution that is used to clean the skin. It gets rid of the bacteria that usually live on the skin. Because your skin needs to be very clean before you have surgery, your health care provider may give you chlorhexidine to wash with before the surgery. You may be given chlorhexidine to use at home. For example, you may be told to wash with chlorhexidine the night before and the morning of your surgery. Washing with chlorhexidine before surgery helps prevent infections from developing after the surgery. What are the risks? Chlorhexidine can cause a skin reaction if used improperly. To avoid problems: Use the solution exactly as directed. Do not use the solution on your head or face, in the genital area, or on areas of broken skin. How to use chlorhexidine Only use chlorhexidine as told by your health care provider. Do not use more chlorhexidine than youare told to, and do not use it more often than you are told. Make sure you follow the instructions on the label. If you have any questions, call your health care provider. You can use chlorhexidine while taking a shower or a bath. Unless instructed otherwise, follow these steps when using chlorhexidine: Wash your face and your hair using the soap and shampoo that you normally use. Turn off the shower or stand up in the tub. Then, wash with chlorhexidine. To wash with chlorhexidine: If you were given a sponge, use that. If you were not given a sponge, use only a cloth. Do not use any sort of brush. If the sponge has a brush on one side, do not use that side. Start at your neck and scrub down to your toes. Avoid your genital area. Chlorhexidine can cause a skin reaction. Also, avoid any areas of skin that have cuts or scrapes. Pay special attention to the part of your body where you will be having surgery. Scrub this area for at least 1 minute. Be sure to get your back and under your arms. Do not use chlorhexidine on your head. If the solution gets into your ears or eyes, rinse them wellwith water. Chlorhexidine can cause hearing loss??if the solution gets into your ear. It can also harm your eye if it gets in your eye and is not rinsed out. Rinse your body completely in the shower or tub. Be sure that all body creases and crevices are rinsed well. Dry off with a clean towel. Do not put any substances on your body afterward, such as powder, lotion, or perfume. Put on clean clothing. If it is the night before your surgery, sleep in clean sheets. Contact a health care provider if: Your skin gets irritated after scrubbing. Get help right away if: Your eyes become very red or swollen. Your eyes itch badly. Your skin itches badly and is red or swollen. Your hearing changes. You have trouble seeing. You have trouble breathing. You swallow any chlorhexidine. This information is not intended to replace advice given to you by your health care provider. Make sure you discuss any questions you have with your health care provider. Document Released: 02/03/2013 Document Revised: 06/05/2016 Document Reviewed: 03/20/2016 [employer] Interactive Patient Education ?? 2017 [employer]. ? Personal Items ??? Please wear simple, loose [...] a Living Will and Durable Power of Reed Fixer for Healthcare, please bring a copy. ??? [...] an excellent experience while you are here. [facility] [place] at [phone]; [place] [facility]: Patient Entrance 3A, take North elevator to 2nd floor documented in this encounter Medications at Time [...] AM EST Office Visit [facility] [address] [place] [phone] Nikolas Jha, [address] [place] [phone] documented as of this encounter Procedures Procedure Name Priority Date/Time Associated Diagnosis Comments SCANNED EKG 10/04/2018 7:40 AM EDT BB HISTORY CHECK Routine 09/21/2018 10:0 3 AM EDT Anticoagulation adequate Pre-op testing SURGERY DATE Routine 09/21/2018 10:03 AM EDT Anticoagulation adequate Pre-op testing PREADMISSION TYPE AND SCREEN Routine 09/21/2018 10:03 AM EDT Anticoagulation adequate Pre-op testing ABORH Routine 09/21/2018 10:03 AM EDT Anticoagulation adequate Pre-op testing PT / INR Routine 09/21/2018 10:03 AM EDT Anticoagulation adequate Pre-op testing CBC WITH DIFF Routine 09/21/2018 10:03 AM EDT Anticoagulation adequate Pre-op testing ANTIBODY SCREEN IGG Routine 09/21/2018 1 0:03 AM EDT Anticoagulation adequate Pre-op testing COMPREHENSIVE METABOLIC PANEL Routine 09/21/2018 10:03 AM EDT Anticoagulation adequate Pre-op testing EK EKG 12 LEAD Routine 09/21/2018 10:00 AM EDT Pre-op testing Primary osteoarthritis of left knee documented in this encounter Results * SCANNED EKG (10/04/2018 7:40 AM EDT) Anatomical Region Laterality Modality Other 10/04/2018 7:40 AM EDT us Unknown Unknown IMG ECG ORDERABLES Final Result * BB HISTORY CHECK (09/21/2018 10:03 AM EDT) BB HISTORY CHECK (1) Previous History OK 09/21/2018 10:20 AM EDT [facility] BLOOD BANK Blood VENOUS BLOOD / Unknown Venipuncture / Unknown 09/21/2018 10:03 AM EDT 09/21/2018 10:06 AM EDT us Brian Newman MD BLOOD BANK ORDERABLES Final Res ult [facility]OD BANK [address] [place] [address] * SURGERY DATE (09/21/2018 10:03 AM EDT) Surgery Date (1) Complete 09/21/2018 10:20 AM EDT [facility] BLOOD BANK Blood VENOUS BLOOD / Unknown Venipuncture / Unknown 09/21/2018 10:03 AM EDT 09/21/2018 10:06 AM EDT us Brian Newman MD BLOOD BANK ORDERABLES Final Res ult Performing Organization Address [facility] Co de Phone Number [facility] BLOOD BANK [address] [place] [phone] * ANTIBODY SCREEN IGG (09/21/2018 10:03 AM EDT) ABSC IgG Int Negative 09/21/2018 11:24 AM EDT [facility] BLOOD BANK Blood VENOUS BLOOD / Unknown Venipuncture / Unknown 09/21/2018 10:03 AM EDT 09/21/2018 10:06 AM EDT us Brian Newman MD BLOOD BANK ORDERABLES Final Res ult Performing Organization Address [facility] Co de Phone Number [facility] BLOOD [address] [address] * ABORH (09/21/2018 10:03 AM EDT) ABORH Int A POS 09/21/2018 11:24 AM EDT [facility] BLOOD BANK Blood VENOUS BLOOD / Unknown Venipuncture / Unknown 09/21/2018 10:03 AM EDT 09/21/2018 10:06 AM EDT us Brian Newman MD BLOOD BANK ORDERABLES Final Res ult Performing Organization Address [facility] Co de Phone Number [facility] BLOOD BANK [address] [place] [phone] * PT / INR (09/21/2018 10:03 AM EDT) PT 11.2 9.7 - 12.5 second(s) 09/21/2018 10:22 AM EDT [facility] INR 0.99 0.86 - 1.10 no units 09/21/2018 10:22 AM EDT [facility] Comment: Level of Therapy ? Indications ?Target INR Range Standard Dose Treatment and prophylaxis of venous ? 2.0 - 3.0 ? thrombosis, pulmonary embolism High Dose ? High risk patients with mechanical ? 2.5 - 3.5 ? heart valves Blood VENOUS BLOOD / Unknown Venipuncture / Unknown 09/21/2018 10:03 AM EDT 09/21/2018 10:06 AM EDT us Brian Newman MD HEMATOLOGY ORDERABLES Final Res ult [facility] [address] [facility] , [address] [place] [phone] * (ABNORMAL) COMPREHENSIVE METABOLIC PANEL (09/21/2018 10:03 AM EDT) Sodium 140 136 - 145 mmol/L 09/21/2018 10:38 AM EDT [facility] Potassium 3.8 3.5 - 5.0 mmol/L 09/21/2018 10:38 AM EDT [facility] Chloride 105 98 - 107 mmol/L 09/21/2018 10:38 AM EDT [facility] Total CO2 26 22 - 29 mmol/L 09/21/2018 10:38 AM EDT [facility] Anion Gap 9 7 - 16 mmol/L 09/21/2018 10:38 AM EDT [facility] Calcium 9.8 8.8 - 10.4 mg/dL 09/21/2018 10:38 AM EDT [facility] Glucose Lvl 118(H) 82 - 100 mg/dL 09/21/2018 10:38 AM EDT [facility] BUN 18 8 - 23 mg/dL 09/21/2018 10:38 AM EDT [facility] Creatinine 0.91 0.51 - 1.30 mg/dL 09/21/2018 10:38 AM EDT [facility] Albumin 4.2 3.2 - 4.6 gm/dL 09/21/2018 10:38 AM EDT [facility] Total Protein 6.3(L) 6.4 - 8.3 gm/dL 09/21/2018 10:38 AM EDT [facility] Bili Total 0.5 0.1 - 1.3 mg/dL 09/21/2018 10:38 AM EDT [facility] ALT 18 <=41 IU/L 09/21/2018 10:38 AM EDT [facility] AST 16 <=40 IU/L 09/21/2018 10:38 AM EDT [facility], [facility] Alk Phos 71 36 - 123 IU/L 09/21/2018 10:38 AM EDT [facility] GFR Afr Am 76 >=60 mL/min/1.7 3 m2 09/21/2018 10:38 AM EDT [facility], [facility] GFR Non Afr Am 65 >=60 mL/min/1.7 3 m2 09/21/2018 10:38 AM EDT [facility], [facility] Comment: This estimated GFR was [...] VENOUS BLOOD / Unknown Venipuncture / Unknown 09/21/2018 10:03 AM EDT 09/21/2018 10:06 AM EDT us Brian Newman MD CHEMISTRY ORDERABLES Final Resu lt [facility] [address] [facility] , [place] [address] * (ABNORMAL) CBC WITH DIFF (09/21/2018 10:03 AM EDT) WBC 6.4 3.7 - 10.3 x10(3)/mcL 09/21/2018 10:19 AM EDT [facility] RBC 3.86(L) 3.90 - 5.20 x10(6)/mcL 09/21/2018 10:19 AM EDT [facility] Hgb 11.7 11.2 - 15.7 g/dL 09/21/2018 10:19 AM EDT [facility] Hct 37.0 34.0 - 45.0 % 09/21/2018 10:19 AM EDT [facility] MCV 95.9 79.0 - 98.0 fL 09/21/2018 10:19 AM EDT [facility] MCH 30.3 26.0 - 32.0 pg 09/21/2018 10:19 AM EDT [facility] MCHC 31.6 30.7 - 35.5 g/dL 09/21/2018 10:19 AM EDT [facility] RDW 14.2 <=14.9 % 09/21/2018 10:19 AM EDT [facility] Platelet 167 155 - 369 x10(3)/[facility] 09/21/2018 10:19 AM EDT [facility] MPV 10.6 8.8 - 12.5 fL 09/21/2018 10:19 AM EDT [facility] Neut Percent 63.6 % 09/21/2018 10:19 AM EDT [facility] Comment:Neutrophils equals s egs plus bands Imm Gran% 0.3 % 09/21/2018 10:19 AM EDT [facility] Comment:Automated count of m etamyelocytes, myelocytes and promyelocytes. Lymph Percent 23.0 % 09/21/2018 10:19 AM EDT [facility] [place] Percent 10.5 % 09/21/2018 10:19 AM EDT [facility] Eos Percent 2.3 % 09/21/2018 10:19 AM EDT [facility] Baso Percent 0.3 % 09/21/2018 10:19 AM EDT [facility] Neut # 4.1 1.6 - 6.1 x10(3)/[facility] 09/21/2018 10:19 AM EDT [facility] Comment:Neutrophils equals s egs plus bands IMMGRAN# 0.0 0.0 - 0.1 x10(3)/mcL 09/21/2018 10:19 AM EDT [facility] Comment:Automated count of m etamyelocytes, myelocytes and promyelocytes. An absolute IG <0.1 is reported as 0.0. Lymph # 1.5 1.2 - 3.9 x10(3)/mcL 09/21/2018 10:19 AM EDT [facility] [place] # 0.7 0.3 - 0.9 x10(3)/mcL 09/21/2018 10:19 AM EDT [facility] Eos# 0.2 0.0 - 0.5 x10(3)/mcL 09/21/2018 10:19 AM EDT [facility] Baso # 0.0 0.0 - 0.1 x10(3)/mcL 09/21/2018 10:19 AM EDT [facility] [employer] Blood VENOUS BLOOD / Unknown Venipuncture / Unknown 09/21/2018 10:03 AM EDT 09/21/2018 10:06 AM EDT us Brian Newman MD HEMATOLOGY ORDERABLES Final Res ult [facility] [address] [facility] , [place] [address] * EK EKG 12 LEAD (09/21/2018 10:00 AM EDT) Anatomical Region Laterality Modality Electrocardiogra phy 09/21/2018 9:58 AM EDT Impressions 09/21/2018 10:39 AM EDT ?[facility] ? Test Date: ?2018-09-21 Pat Name: ? DIAMANTE EDOUARD ?Department: ?? DEPID ? Room: ? Gender: ? Female ? Insurance Account Executive: ?? MBW : ?1950 ? Requested By: LATOYA JIMÉNEZ [facility] Number: [id number] ?Reading MD: ?? Mitchell Abreu MD ? Measurements Intervals ?[place] ? Rate: ? 63 ? P: ?13 [place]: ? 192 ?QRS: ?12 QRSD: ? 72 ? T: ?10 QT: ? 365 ? QTc: ?376 ? Interpretive Statements SINUS RHYTHM LOW QRS VOLTAGE IN PRECORDIAL LEADS ?? minor NONSPECIFIC T-WAVE ABNORMALITY minimal change from ??record of 10/9/15 Electronically Signed On 09-21-2018 10:39:51 EDT by Mitchell Abreu MD Narrative Procedure Note Mitchell Abreu MD - 09/21/[address] [facility] Test Date: 2018-09-21 Pat Name: DIAMANTE EDOUARD Department: DEPID Room: Gender: Female Insurance Account Executive: HOWARD : 1950 Requested By: LATOYA JIMÉNEZ Order Number: [id number] Reading MD: Mitchell Abreu MD Measurements Intervals [place] Rate: 63 P: 13 [place]: 192 QRS: 12 QRSD: 72 T: 10 QT: 365 QTc: 376 Interpretive Statements SINUS RHYTHM LOW QRS VOLTAGE IN PRECORDIAL LEADS minor NONSPECIFIC T-WAVE ABNORMALITY minimal change from record of 03/03/15 Electronically Signed On 09-21-2018 10:39:51 EDT by Mitchell Abreu MD Latoya Foster WOODS MANAGER IMG ECG ORDERABLES Fi nal Result documented in this encounter Visit Diagnoses Diagnosis Anticoagulation adequate- Primary Encounter for long-term (current) use of anticoagulants Pre-op testing Preoperative examination, unspecified Primary osteoarthritis of left knee Primary localized osteoarthrosis, lower leg documented in this encounter Additional Health Concerns Assessment Noted Time A fall risk assessment has been complete d for the patient 07/29/2016 10:44 AM EST documented as of this encounter Care Teams Marketing Operations Specialist Relationship Specialty Start Date End Date Carlos Manuel Barragan [address] [place] [address] [address] [place] [address] PCP - General 07/03/10 documented as of this encounter
--- OUTSIDE RECORDS SUMMARY | 2024-05-04 22:54 | XMS_ITS | Encounter Summary ---
Author Organization [place] [address] Care Team Providers Care Parts Salesman Name Role Phone Carlos Manuel Barragan Primary Care Provider [phone] Encounter Details Date Type Department Care Team (Latest Contact Info) Description 07/29/2016 12:35 PM EST - 07/29/2016 11:59 PM [facility] Hospital Encounter [facility] [address] [place] [address] Onychomycosis; Pain in toes of [...] AM EST Office Visit [facility] [address] [place] [address] Nikolas Jha DPM [address] [place] [address] Scheduled Orders Name Type Priority Associated Diagnoses Orde r Schedule OP VENIPUNCTURE CHARGE Lab Timed Onychomycosis Pain in toes of both feet One Time for 1 Occurrences starting 07/29/2016 until 07/29/2016 documented as of this encounter Procedures Procedure Name Priority Date/Time Associated Diagnosis Comments DIFFERENTIAL Routine 07/29/2016 12:42 PM EST CBC WITH DIFF Routine 07/29/2016 12:42 PM EST Onychomycosis Pain in toes of both feet HEPATIC FUNCTION PANEL Routine 07/29/2016 12:42 PM EST Onychomycosis Pain in toes of both feet documented in this encounter Results * (ABNORMAL) DIFFERENTIAL (07/29/2016 12:42 PM EST) Neut Percent 27.5 % [facility] Lymph Percent 55.5 % [facility] [place] Percent 12.9 % [facility] Eos Percent 3.5 % [facility] Baso Percent 0.6 % [facility] Neut# 1.2(L) 1.8 - 7.7 x10(3)/mcL [facility] Lymph# 2.4 0.6 - 4.8 x10(3)/mcL [facility] [place]# 0.6 0.0 - 1.3 x10(3)/[facility] Eos# 0.2 0.0 - 0.5 x10(3)/mcL [facility] Baso# 0.0 0.0 - 0.2 x10(3)/mc[facility] Blood specimen (specimen) 07/29/2016 12:42 PM EST 07/29/2016 12:43 PM EST us Nikolas Jha DPMitzi HEMATOLOGY ORDERABLES Final Result [facility] [address] [place] [address] * HEPATIC FUNCTION PANEL (07/29/2016 12:42 PM EST) Total Protein 6.6 6.4 - 8.3 gm/dL [facility] Albumin 4.1 3.2 - 4.6 gm/dL [facility] Bili Direct <0.2 0.0 - 0.3 mg/dL [facility] Bili Total 0.3 0.1 - 1.3 mg/dL [facility] AST 25 <=40 IU/L [facility] ALT 18 <=41 IU/L [facility] Alk Phos 80 35 - 104 IU/L [facility] Blood specimen (specimen) UPPER LIMB STRUCTURE / Unknown 07/29/2016 12:42 PM EST 07/29/2016 4:06 PM EST us Nikolas Jha DPM CHEMISTRY ORDERABLES Final Result Performing Organization Address City/[facility]/ZIP Co de Phone Number [facility] [address] [place] [address] * (ABNORMAL) CBC WITH AUTO DIFF (07/29/2016 12:42 PM EST) WBC 4.4 4.0 - 11.0 x10(3)/mcL [facility] RBC 4.10 3.80 - 5.10 x10(6)/mcL [facility] Hgb 12.5 12.0 - 15.6 gm/dL [facility] Hct 37.5 35.7 - 45.9 % [facility] MCV 91.6 82.5 - 99.8 fL [facility] MCH 30.6 27.0 - 34.3 pg [facility] MCHC 33.4 32.1 - 35.3 gm/dL [facility] RDW 14.4 11.5 - 15.0 % [facility] Platelet 138(L) 144 - 423 x10(3)/mcL [facility] MPV 9.3 6.8 - 10.8 fL [facility] Blood specimen (specimen) UPPER LIMB STRUCTURE / Unknown 07/29/2016 12:42 PM EST 07/29/2016 12:43 PM EST us Nikolas BURNETTM HEMATOLOGY ORDERABLES Final Result [facility] [address] [place] [id number] documented in this encounter Visit Diagnoses Diagnosis Onychomycosis Dermatophytosis of nail Pain in toes of both feet documented in this encounter Additional Health Concerns Assessment Noted Time A fall risk assessment has been complete d for the patient 07/29/2016 10:44 AM EST documented as of this encounter Care Teams Parts Salesman Relationship Specialty Start Date End Date Carlos Manuel Barragan [address] [place] [address] PCP - General 07/03/10 documented as of this encounter
--- OUTSIDE RECORDS SUMMARY | 2024-05-04 22:54 | XMS_ITS | Encounter Summary ---
Author Organization [place] [address] Care Team Providers Care Painter Decorator Name Role Phone Carlos Manuel Barragan Primary Care Provider [phone] Reason for Visit * Reason Comments Follow-up Encounter Details Date Type Department Care Team (Latest Contact Info) Description 07/30/2017 10:18 AM EST - 07/30/2017 11:59 PM [facility] Hospital Encounter [facility] [place] [address] Dany Crouch MD [address] [place] [address] [place] [address] Malignant neoplasm of left female breast, unspecified estrogen receptor status, unspecified site of breast (HCC) (Primary Dx); Post-menopausal; alf (current) use of aromatase inhibitors Discharge Disposition: [...] Sign Reading Time Taken Comments Blood Pressure 160/91 07/30/2017 10:34 AM EST Pulse 95 07/30/2017 10:34 AM EST Temperature 36.9 ??C (98.4 ??F) 07/30/2017 10:[address] Respiratory Rate 18 07/30/2017 10:34 AM EST Oxygen Saturation - - Inhaled Oxygen Concentration - - Weight 93 kg (205 lb) 07/30/2017 10:34 AM EST Height 167.6 cm (5' 6 ) 07/30/2017 10:34 AM EST Body Mass Index 33.09 07/30/2017 10:34 AM EST documented in this encounter Functional [...] Tab by mouth daily. 90 Tab 3 07/30/2017 09/29/2018 documented in this encounter Discharge Disposition Disposition Code Departure Means Destination Home or Self Care documented in this encounter Progress Notes * Corry Frazier RN - 07/30/2017 10:18 AM EST Juany is seen today for a f/u. 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 Left mastectomy/reconstruction. She takes Arimidex daily w/out difficulty. She denies breast/chest wall pain, no nipple discharge. Shetakes Vitamin D daily. CBE and chest wall exam per Dr. Crouch, normal. Right screening m/m May 2017 - normal. P: knowledge deficit r/t SBE/chest wall exam G: educate pt I: Discussed signs/symptoms to watch for and report post breast cancer. Discussed continuing monthly chest wall exam and self breast exam, written material provided. Discussed taking vitamin D daily.Discussed importance of healthy diet and exercise for overall health benefits and cancer risk reduction. Right m/m due 2018. Pt to schedule. Return in 1 year. Scheduled. DEXA due April 2018. Ordered. Pt to schedule. * Dany Crouch MD - 07/30/2017 10:18 AM EST Subjective: Ms. Alarcon is here for a scheduled routine follow-up visit History of Present Illness The patient is a 67 y.o. female who presents with a complaint of breast follow up HPI Annual breast cancer follow up today Pt reports sinus issues She is taking Arimidex and Vitamin D tolerating well No other family members with breast, ovarian, prostate, pancreatic or melanoma cancer. No new back ache, bone pain, shortness of breath or weight loss Pt reports having arthritis Past Medical History: Diagnosis Date ??? Anemia [...] cpap at night. does not know setting Patient Active Problem List Diagnosis Date Noted ??? Breast cancer (HCC) 02/09/2015 Past Surgical History: Procedure Laterality Date ??? BREAST BIOPSY Left 02/07/15 ??? BREAST BIOPSY Left 03/03/2015 ??? BREAST RECONSTRUCTION Left 11/16/2015 LEFT BREAST STAGE 2 RECONSTRUCTION WITH IMPLANT RIGHT BREAST REDUCTION FOR SYMMETRY ; Surgeon: Flaco Damon MD; Location: [facility]; Service: Plastics ??? BREAST REDUCTION SURGERY Right 11/16/2015 Surgeon: Flaco Damon MD; Location: [facility]; Service: Plastics ??? BREAST SURGERY Left 06/02/2015 BREAST RECONSTRUCTION 1ST STAGE WITH EXPANDERS ; Surgeon: Flaco Damon MD; Location: [facility] OR; Service: General ??? CHOLECYSTECTOMY ??? [...] Social History Narrative ??? None Current Outpatient Prescriptions Medication Sig Dispense Refill ??? anastrozole (ARIMIDEX) [...] mg by mouth daily. 3 tablets ??? montelukast (SINGULAIR) 10 mg Oral Tablet Take 10 mg by mouth every evening. ??? potassium chloride SA (K-DUR;KLOR-CON) 20 mEq Oral Tab Sust.Rel. Particle/Crystal Take 20 mEq by mouth daily. ??? rosuvastatin (CRESTOR) 10 mg Oral Tablet Take 10 mg by mouth daily. ??? anastrozole (ARIMIDEX) 1 mg Oral Tablet Take 1 Tab by mouth daily. 90 Tab 3 ??? anastrozole (ARIMIDEX) 1 mg Oral Tablet Take 1 Tab by mouth daily. 90 Tab 3 ??? anastrozole (ARIMIDEX) 1 mg Oral Tablet Take 1 Tab by mouth daily. 90 Tab 3 ??? FOLIC ACID/MULTIVIT-MIN/LUTEIN (CENTRUM SILVER ORAL) Take by mouth. Reported on 07/24/2016 ??? PARoxetine (PAXIL) 10 mg Oral Tablet Take 1 Tab by mouth daily. (Patient not taking: Reported on 07/14/2017) 30 Tab 2 ??? vitamin E 1,000 unit Oral Capsule Take 1,000 Units by mouth daily. Reported on 07/29/2016 No current facility-administered medications for this encounter. Allergies Allergen Reactions ??? Morphine confusion ??? Penicillins Rash Review of Systems Constitutional: Negative for unexpected weight change. Respiratory: Negative for shortness of breath. Musculoskeletal: Positive for arthralgias. Negative for back pain. Objective: Vitals: 07/30/17 1034 BP: (!) 160/91 Pulse: 95 Resp: 18 Temp: 98.4 ??F (36.9 ??C) TempSrc: Oral Weight: 205 lb (93 kg) Height: 5' 6 (1.676 m) Body mass index is 33.09 kg/m??. Physical Exam Constitutional: She is oriented to person, place, and time. Vital signs are normal. She appears well-developed and well-nourished. She is cooperative. HENT: Head: Atraumatic. Neck: Neck supple. No thyroid mass present. Cardiovascular: Normal rate and regular rhythm. Pulses: Dorsalis pedis pulses are 2+ on the right side, and 2+ on the left side. Pulmonary/Chest: Effort normal. Right breast exhibits no inverted nipple, no mass, no nipple discharge, no skin change and no tenderness. S/p 06/02/15 LEFT BREAST MASTECTOMY/reconstruction S/p 03/03/15 LEFT BREAST CORE BIOPSY & SENTINEL LYMPH NODE DISSECTION. Negative left chest exam Negative right breast exam Abdominal: Soft. She exhibits no mass. There is no tenderness. Musculoskeletal: Normal range of motion. She exhibits no edema or tenderness. Lymphadenopathy: Right axillary: No lateral adenopathy present. Left axillary: No lateral adenopathy present. Negative node exam above and below arms Neurological: She is alert and oriented to person, place, and time. Skin: Skin is warm and dry. No rash noted. Negative skin exam on back Psychiatric: She has a normal mood and affect. Her speech is normal and behavior is normal. Judgment and thought content normal. Cognition and memory are normal. Nursing note and vitals reviewed. Assessment and Plan: FARIDA by exam Continue with Arimidex and Vitamin D3 daily Dexa scan ordered Arimidex refills escribed to pharmacy Return in 1 year Note written by PRASANNA Reeves, acting as scribe for Yamel Crouch MD. Juany was seen today for follow-up. Diagnoses and all orders for this visit: Malignant neoplasm of left female breast, unspecified estrogen receptor status, unspecified site ofbreast (HCC) - anastrozole (ARIMIDEX) 1 mg Oral Tablet; Take 1 Tab by mouth daily. 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 Dany Crouch MD documented in this encounter Miscellaneous Notes * Patient Instructions - Corry Frazier RN - 07/30/2017 10:18 AM EST Images from the original note were not included. Today's exam is normal. It is recommended that you take Vitamin D3; there are new findings that associate low Vitamin D levels to breast cancer and lung cancer and colon cancer ; The usual over the counter dosage is 8865-2675 units daily. * 1000 units in the Summer and * 2000 units in the Winter Continue taking Arimidex daily Maintain a healthy diet and exercise for [...] progressive headaches Don't forget to continue monthly Chest Wall Exam and Self Breast Exam Report new lumps that feel like a hard rock or pebble. You are due for a right screening mammogram after 06/16/18. You will receive a reminder postcard to call and schedule this. Return in 1 year You are due for a DEXA scan after 05/17/18. The order has been placed. Please call Central Scheduling at [phone] to schedule this. This can be determined at your next visit. Patient Education Breast Self-Awareness Breast self-awareness allows you to notice a breast problem early while it is still small. Do a breast self-exam: ?? Every month, 5-7 days after your period (menstrual period). ?? At the same time each month if you do not have periods anymore. Look for any: ?? Difference between your breasts (size, shape, or position). ?? Change in breast shape or size. ?? Fluid or blood coming from your nipples. ?? Changes in your nipples (dimpling, nipple movement). ?? Change in skin color or texture (redness, scaly areas). Feel for: ?? Lumps. ?? Bumps. ?? Dips. ?? Any other changes. HOW TO DO A BREAST SELF-EXAM Look at your breasts and nipples. 1. Take off all your clothes above your waist. 2. employee benefits insurance agent front of a mirror in a room with good lighting. 3. Put your hands on your hips and push your hands downward. Feel your breasts. 1. Lie flat on your back or standard machine stitcher the shower or tub. If you are in the shower or tub, have wet, soapy hands. 2. Place your right arm above your head. 3. Place your left hand in the right underarm area. 4. Make small circles using the pads (not the fingertips) of your 3 middle fingers. Press lightly and then with medium and firm pressure. 5. Move your fingers a little lower and make the small circles at the 3 pressures (light, medium, and firm). 6. Continue moving your fingers lower and making circles until you reach the bottom of your breast. 7. Move your fingers one finger-width towards the center of the body. 8. Continue making the circles, this time moving upward until you reach the bottom of your neck. 9. Move your fingers one finger-width towards the center of your body. 10. Make circles downward when starting at the bottom of the neck. Make circles upward when starting at the bottom of the breast. Stop when you reach the middle of the chest. 11. Repeat these steps on the other breast. Write down what looks and feels normal for each breast. Also write down any changes you notice. GET HELP RIGHT AWAY IF: ?? You see any changes in your breasts or nipples. ?? You see skin changes. ?? You have unusual discharge from your nipples. ?? You feel a new lump. ?? You feel unusually thick areas. This information is not intended to replace advice given to you by your health care provider. Make sure you discuss any questions you have with your health care provider. Document Released: 10/28/2008 Document Revised: 04/28/2013 Document Reviewed: 08/26/2012 Elsevier Interactive Patient Education ??2016 [employer] documented in this encounter Plan of Treatment Upcoming Encounters Date Type Department Care Team (Late st Contact Info) Description 05/24/2024 10:30 AM EST Office Visit [facility] [address] [address] Nikolas Jha DPM [address] [place] [address] documented as of this encounter Visit Diagnoses Diagnosis Malignant neoplasm of left female breast, unspecified estrogen receptor status, unspecified site of breast (HCC)- Primary Post-menopausal Asymptomatic postmenopausal status (age-related) (natural) alf (current) use of aromatase inhibitors documented in this encounter Historical Medications * This list may reflect changes made after this encounter. rosuvastatin (CRESTOR) 10 mg Oral Tablet Take 10 mg by mouth daily. added in this encounter Additional Health Concerns Assessment Noted Time A fall risk assessment has been complete d for the patient 07/29/2016 10:44 AM EST documented as of this encounter Care Teams Painter Decorator Relationship Specialty Start Date End Date Carlos Manuel Barragan [address] [facility] [address] [place] [address] PCP - General 07/03/10 documented as of this encounter
--- OUTSIDE RECORDS SUMMARY | 2024-05-04 22:54 | XMS_ITS | Encounter Summary ---
Author [place] [address] Care Team Providers Care Motion Pictures Cartoonist Name Role Phone Carlos Manuel Barragan Primary Care Provider [phone] Reason for Visit * Reason Onset Date Comments Medication Refill 07/27/2018 Encounter Details Date Type Department Care Team (Late st Contact Info) Description 07/27/2018 Refill [facility] [address] [facility] [address] [place] [address] Dany Crouch MD [address] [place] [address] [address] [place], [place] [id number] Medication Refill Social History Tobacco Use Types [...] AM EST Office Visit [facility] [address] [place] [phone] Nikolas Jha Mitzi [address] [place] [address] [address] [place] [phone] documented as of this encounter Goals [...] Malignant neoplasm of left female breast, unspecified site of breast documented in this encounter Additional Health Concerns Assessment Noted Time A fall risk assessment has been complete d for the patient 07/29/2016 10:44 AM EST documented as of this encounter Care Teams Motion Pictures Cartoonist Relationship Specialty Start Date End Date Carlos Manuel Barragan [address] [place] [address] [place] [address] PCP - General 07/03/10 documented as of this encounter
--- OUTSIDE RECORDS SUMMARY | 2024-05-04 22:54 | XMS_ITS | Encounter Summary ---
Author Organization [place] [address] Care Team Providers Care Tonsorial Artist Name Role Phone Carlos Manuel Barragan Primary Care Provider [phone] Reason for Visit * Reason Onset Date Comments Medication Refill 07/27/2018 Encounter Details Date Type Department Care Team (Late st Contact Info) Description 07/27/2018 Refill [facility] [place] [place] [address] Cheri Reyes Medication Refill Social History Tobacco Use Types [...] Author No 06/03/2015 1:49 PM EST Mitzi Archersa Trejo EQUIP TECH * Because of a physical, mental or [...] encounter Miscellaneous Notes * Telephone Encounter - Mary Jones MA - 07/27/2018 2:34 PM EST Refill sent to patient pharmacy * Telephone Encounter - Cheri Reyes - 07/27/2018 11:36 AM EST The patient called in for a refill on her anastrozole (ARIMIDEX) 1 mg Oral Tablet. She has an appointment in September. Can you see if Dr. Crouch will refill for 90 days? documented in this encounter Plan of Treatment Upcoming Encounters Date Type Department Care Team (Late st Contact Info) Description 05/24/2024 10:30 AM EST Office Visit [facility] [place] [address] [facility] [address] [place] [address] Nikolas Jha DPM [address] [facility] [address] [place] [address] documented as of this encounter Visit Diagnoses Diagnosis History of breast cancer Personal history of malignant neoplasm of breast documented in this encounter Additional Health Concerns Assessment Noted Time A fall risk assessment has been complete d for the patient 07/29/2016 10:44 AM EST documented as of this encounter Care Teams Tonsorial Artist Relationship Specialty Start Date End Date Carlos Manuel Barragan [facility] [address] [place] [address] PCP - General 07/03/10 documented as of this encounter
--- OUTSIDE RECORDS SUMMARY | 2024-05-04 22:54 | XMS_ITS | Encounter Summary ---
Author Organization [place] [address] Care Team Providers Care Tool Planer Set Up Operator Name Role Phone Carlos Manuel Barragan Primary Care Provider [phone] Reason for Visit * Reason Comments Nail Problem fungus toenails * Consultation (Routine) - Closed Specialty Diagnoses / Procedures Referred By Heather santos Referred To Contact Field Specialist-Surgery, Foot & Ankle / Podiatry Diagnoses fungus Procedures NEW PATIENT Carlos Manuel Barragan [address] [facility] [address] [place] [address] Phone: tel: fax: Nikolas Jha DPM [address] [facility] [place] [address] [place] [phone] Phone: tel: fax: Referral ID Status Reason Start Date Expiration Date Visits Re quested Visits Authorized [id number] Closed 07/29/2016 07/29/2017 99 99 Encounter Details Date Type Department Care Team (Latest Contact Info) Description 07/29/2016 10:00 AM EST Office Visit [facility] [address] [place], [place] [phone] Nikolas Jha DPM [address] [place] [address] [place] [phone] Onychomycosis (Primary Dx); Pain in toes of both feet; Hammer [...] - - Weight 87.5 kg (193 lb) 07/29/2016 10:45 AM EST Height 167.6 cm (5' 6 ) 07/29/2016 10:45 AM EST Body Mass Index 31.15 07/29/2016 10:45 AM EST documented in this encounter Functional [...] Mitzi Archer APRN documented in this encounter Ordered Prescriptions Prescription Sig Dispense Quantity Refills Last Filled Start Date End Date terbinafine HCl (LAMISIL) 250 mg Oral TabletIndications:O nychomycosis,Pain in toes of both feet Take 1 Tab by mouth daily for 90 days. 90 Tab 07/29/2016 10/27/2016 documented in this encounter Progress Notes * Nikolas Jha DPM - 07/29/2016 10:00 AM EST Images from the original note were not included. Subjective: Patient ID: Juany Alarcon is a 66 y.o. female. Chief Complaint: Nail Problem (fungus toenails) HPI Patient presents with chief complaint of painful thickened toenails. She is concerned there is a fungus infection. Present for greater what one year. Gradual onset, progressively worsening. Pain with and without shoe gear, worse with shoe gear. Increased pain with activity. Patients past medical, family and social histories [...] Outpatient Prescriptions Marked as Taking for the 07/29/16 encounter (Office Visit) with Nikolas Jha DPM [...] Particle/Crystal Take 20 mEq by mouth daily. Past Surgical History: Procedure Laterality Date ??? BREAST BIOPSY Left 02/07/15 ??? BREAST BIOPSY Left 03/03/2015 ??? BREAST RECONSTRUCTION Left 11/16/2015 LEFT BREAST STAGE 2 RECONSTRUCTION WITH IMPLANT RIGHT BREAST REDUCTION FOR SYMMETRY ; Surgeon: Flaco Damon MD; Location: [facility]; Service: Plastics ??? BREAST REDUCTION SURGERY Right 11/16/2015 Surgeon: Flaco Damon MD; Location: [facility]; Service: Plastics ??? BREAST SURGERY Left 06/02/2015 BREAST RECONSTRUCTION 1ST STAGE WITH EXPANDERS ; Surgeon: Flaco Damon MD; Location: [facility] MAIN OR; Service: General ??? CHOLECYSTECTOMY ??? COLONOSCOPY ??? FOOT SURGERY Left 10/05/2010 hammertoes ??? HIP SURGERY 2009 right total ??? KNEE SURGERY 2008 right TKR ??? LYMPH NODE DISSECTION Left 01/2015 4 nodes removed ??? MASTECTOMY Left 06/02/2015 ??? TONSILLECTOMY Past Surgical History: Procedure Laterality Date ??? BREAST BIOPSY Left 02/07/15 ??? BREAST BIOPSY Left 03/03/2015 ??? BREAST RECONSTRUCTION Left 11/16/2015 LEFT BREAST STAGE 2 RECONSTRUCTION WITH IMPLANT RIGHT BREAST REDUCTION FOR SYMMETRY ; Surgeon: Flaco Damon MD; Location: [facility]; Service: Plastics ??? BREAST REDUCTION SURGERY Right 11/16/2015 Surgeon: Flaoc Damon MD; Location: [facility]; Service: Plastics ??? BREAST SURGERY Left 06/02/2015 BREAST RECONSTRUCTION 1ST STAGE WITH EXPANDERS ; Surgeon: Flaco Damon MD; Location: [facility]IN [facility]; Service: General ??? CHOLECYSTECTOMY ??? COLONOSCOPY ??? FOOT SURGERY Left 10/05/2010 hammertoes ??? HIP SURGERY 2009 right total ??? KNEE SURGERY 2008 right TKR ??? LYMPH NODE DISSECTION Left 01/2015 4 nodes removed ??? MASTECTOMY Left 06/02/2015 ??? TONSILLECTOMY Social History Social History ??? Marital status: Spouse name: N/A ??? Number of children: N/A ??? Years of education: N/A Social History Main Topics ??? Smoking status: Never Smoker ??? Smokeless tobacco: Never Used ??? Alcohol use Yes Comment: socially ??? Drug use: No ??? Sexual activity: Not Asked Other Topics Concern ??? None Social History Narrative Family History Problem Relation Age of Onset ??? Ovarian Cancer Mother 83 ??? Cancer Mother uterus ??? Breast Cancer Sister 52 ??? Heart Failure Father ??? Thyroid Disease Father ??? Anesth Problems Neg Hx Review of Systems Constitutional: Positive for activity [...] systems reviewed and are negative. Objective: Vitals: 07/29/16 1045 Weight: 193 lb (87.5 kg) Height: 5' 6 (1.676 m) Body mass index is 31.15 kg/(m^2). Physical Exam Constitutional: She is oriented to [...] and all orders for this visit: Onychomycosis - CBC with Auto Diff; Future - Hepatic Function Panel; Future - CBC with Auto Diff; Future - Hepatic Function Panel; Future - terbinafine HCl (LAMISIL) 250 mg Oral Tablet; Take 1 Tab by mouth daily for 90 days. Pain in toes of both feet - CBC with Auto Diff; Future - Hepatic Function Panel; Future - CBC with Auto Diff; Future - Hepatic Function Panel; Future - terbinafine HCl (LAMISIL) 250 mg Oral Tablet; Take 1 Tab by mouth daily for 90 days. Hammer toe of right foot Discussed treatment options for the hammertoe deformity. She will consider. No immediate plans for surgery. Happy with this surgery results on the left foot. For the onychomycosis discuss treatment options. Debrided toenails. We will try combination of oraland topical. Clear nails pro dispensed. No Follow-up on file. documented in this encounter Miscellaneous Notes * Patient Instructions - Nikolas Jha DPM - 07/29/2016 10:25 PM EST Nail Ringworm A fungal infection of the [...] 05/09/2001 Document Revised: 09/26/2015 Document Reviewed: 11/13/2015 [employer] Interactive Patient Education ??2016 [employer]. documented in this encounter Plan of Treatment Upcoming Encounters Date Type Department Care Team (Late st Contact Info) Description 05/24/2024 10:30 AM EST Office Visit [facility] [address] [place] [phone] Nikolas Jha DPM [address] [place] [address] [place] [phone] documented as of this encounter Results * HEPATIC FUNCTION PANEL (09/10/2016 4:34 PM EDT) Total Protein 7.0 6.4 - 8.3 gm/dL [facility] Albumin 4.4 3.2 - 4.6 gm/dL [facility] Bili Direct <0.2 0.0 - 0.3 mg/dL [facility] Bili Total 0.3 0.1 - 1.3 mg/dL [facility] AST 16 <=40 IU/L [facility] ALT 11 <=41 IU/L [facility] Alk Phos 79 35 - 104 IU/L [facility] Blood specimen (specimen) UPPER LIMB STRUCTURE / Unknown 09/10/2016 4:34 PM EDT 09/10/2016 7:15 PM EDT Narrative [facility] - 09/10/2016 7:41 PM EDT 6 weeks after starting Lamisil us Nikolas Jha DPM CHEMISTRY ORDERABLES Final Result Performing Organization Address City/[facility]/ZIP Co de Phone Number [facility] [address] [place] [address] * CBC WITH AUTO DIFF (09/10/2016 4:34 PM EDT) [facility] WBC 7.5 4.0 - 11.0 x10(3)/mcL [facility] RBC 4.05 3.80 - 5.10 x10(6)/mcL [facility] Hgb 12.0 12.0 - 15.6 gm/dL [facility] Hct 37.2 35.7 - 45.9 % [facility] MCV 91.7 82.5 - 99.8 fL [facility] MCH 29.5 27.0 - 34.3 pg [facility] MCHC 32.2 32.1 - 35.3 gm/dL [facility] RDW 14.2 11.5 - 15.0 % [facility] Platelet 197 144 - 423 x10(3)/mcL [facility] MPV 9.4 6.8 - 10.8 fL [facility] Blood specimen (specimen) UPPER LIMB STRUCTURE / Unknown 09/10/2016 4:34 PM EDT 09/10/2016 4:35 PM EDT Narrative [facility] - 09/10/2016 5:33 PM EDT 6 weeks after starting Lamisil us Nikolas BURNETTM HEMATOLOGY ORDERABLES Final Result Performing Organization Address City/[facility]/ZIP Co de Phone Number [facility] [address] [phone] * HEPATIC FUNCTION PANEL (07/29/2016 12:42 PM EST) [facility] Total Protein 6.6 6.4 - 8.3 gm/dL [facility] Albumin 4.1 3.2 - 4.6 gm/dL [facility] Bili Direct <0.2 0.0 - 0.3 mg/dL [facility] Bili Total 0.3 0.1 - 1.3 mg/dL [facility] AST 25 <=40 IU/L [facility] ALT 18 <=41 IU/L [facility] Alk Phos 80 35 - 104 IU/L [facility] Blood specimen (specimen) UPPER LIMB STRUCTURE / Unknown 07/29/2016 12:42 PM EST 07/29/2016 4:06 PM EST Nikolas Jha DP CHEMISTRY ORDERABLES Final Result Performing Organization Address City/State/[facility] Co de Phone Number [address] [address] * (ABNORMAL) CBC WITH AUTO DIFF (07/29/2016 12:42 PM EST) [facility] WBC 4.4 4.0 - 11.0 x10(3)/mcL [facility] RBC 4.10 3.80 - 5.10 x10(6)/mcL [facility] Hgb 12.5 12.0 - 15.6 gm/dL [facility] Hct 37.5 35.7 - 45.9 % [facility] MCV 91.6 82.5 - 99.8 fL [facility] MCH 30.6 27.0 - 34.3 pg [facility] MCHC 33.4 32.1 - 35.3 gm/dL [facility] RDW 14.4 11.5 - 15.0 % [facility] Platelet 138(L) 144 - 423 x10(3)/mcL [facility] MPV 9.3 6.8 - 10.8 fL [facility] Blood specimen (specimen) UPPER LIMB STRUCTURE / Unknown 07/29/2016 12:42 PM EST 07/29/2016 12:43 PM EST us Nikolas Jha DPMitzi HEMATOLOGY ORDERABLES Final Result [facility] [address] [facility] [place] [address] documented in this encounter Visit Diagnoses Diagnosis Onychomycosis- Primary Dermatophytosis of nail Pain in toes of both feet Hammer toe of right foot Onychomycosis Dermatophytosis of nail Pain in toes of both feet documented in this encounter Additional Health Concerns Assessment Noted Time A fall risk assessment has been complete d for the patient 07/29/2016 10:44 AM EST documented as of this encounter Care Teams Tool Planer Set Up Operator Relationship Specialty Start Date End Date Carlos Manuel Barragan [address] [place] [address] [place] [address] PCP - General 07/03/10 documented as of this encounter
--- OUTSIDE RECORDS SUMMARY | 2024-05-04 22:54 | XMS_ITS | Encounter Summary ---
Author Organization [place] [address] Care Team Providers Care Bean Roaster Name Role Phone Carlos Manuel Barragan Primary Care Provider [phone] Reason for Referral * Mammography (Routine) - Closed Specialty Diagnoses / Procedures Referred By Contac t Referred To Contact Radiology Diagnoses Encounter for screening mammogram for malignant neoplasm of breast Procedures MM MAMMO DIGITAL SCREENING RIGHT Dany Crouch MD [address] [place] [address] [address] [place] [address] Phone: tel: fax: Referral ID Status Reason Start Date Expiration Date Visits Re quested Visits Authorized [id number] Closed 06/01/2018 06/01/2020 1 1 Reason for Visit * Mammography (Routine) - Closed Specialty Diagnoses / Procedures Referred By Contac t Referred To Contact Radiology Diagnoses Encounter for screening mammogram for malignant neoplasm of breast Procedures MM MAMMO DIGITAL SCREENING RIGHT Dany Crouch MD [address] [place] [address] [address] [place] [address] Phone: tel: fax: Referral ID Status Reason Start Date Expiration Date Visits Re quested Visits Authorized [id number] Closed 06/01/2018 06/01/2020 1 1 Encounter Details Date Type Department Care Team (Latest Contact Info) Description 06/11/2018 11:34 AM EST - 06/11/2018 11:59 PM [facility] Encounter [facility] [place], [place] [id number] Dany Crouch MD [address] [facility] [place] [address] Encounter for screening mammogram for malignant neoplasm [...] AM EST Office Visit [facility] [address] [place] [phone] Nikolas Jha DPM [address] [place] [address] [address] [place] [address] [place] [phone] documented as of this encounter Procedures Procedure Name Priority Date/Time Associated Diagnosis Comments MM MAMMO DIGITAL SCREENING RIGHT Routine 06/11/2018 12:03 PM EST Encounter for screening mammogram for malignant neoplasm of breast documented in this encounter Results * MM MAMMO DIGITAL SCREENING RIGHT (06/11/2018 12:03 PM EST) Anatomical Region Laterality Modality Breast Mammography 06/11/2018 12:4 3 PM EST Impressions 06/11/2018 12:43 PM EST Negative ??([id number]) ~ RECOMMENDATION: Routine screening mammogram in 1 [...] due date for the next mammogram. Narrative 06/11/2018 12:43 PM EST Procedure:MM MAMMO DIGITAL SCREENING RIGHT ~ Reason for exam: history of breast cancer, mastectomy. Z12.31-Encounter for screening mammogram for malignant neoplasm of [id number] ~ MM MAMMO DIGITAL SCREEN RIGHT CC and MLO view(s) were taken of the right breast. Technologist: RT Abena There are scattered fibroglandular densities. Prior study comparison: Compared with prior studies the most recent being 06/16/17, 05/17/16 There has been a prior left mastectomy. There has been a reduction mammoplasty on the right side. There are no suspicious masses, microcalcifications or areas of architectural distortion in the right breast. ~ Procedure Note Radha Salmeron MD - 06/11/2018 Procedure:MM MAMMO DIGITAL SCREENING RIGHT ~ Reason for exam: history of breast cancer, mastectomy. Z12.31-Encounter for screening mammogram for malignant neoplasm of [id number]-CM ~ MM MAMMO DIGITAL SCREEN RIGHT CC and MLO view(s) were taken of the right breast. Technologist: RT Abena There are scattered fibroglandular densities. Prior study comparison: Compared with prior studies the most recentbeing 06/16/17, 05/17/16 There has been a prior left mastectomy. There has been a reduction mammoplasty on the right side. There are no suspicious masses, microcalcifications or areas of architectural distortion in the right breast. ~ IMPRESSION: Negative ([id number]) ~ RECOMMENDATION: Routine screening mammogram in 1 [...] documented as of this encounter Care Teams Bean Roaster Relationship Specialty Start Date End Date Carlos Manuel Barragan [address] [place] [address] [address] [place] [address] PCP - General 07/03/10 documented as of this encounter
--- OUTSIDE RECORDS SUMMARY | 2024-05-04 22:54 | XMS_ITS | Encounter Summary ---
Author Organization [place] [address] Care Team Providers Care Orthotic Practitioner Name Role Phone Carlos Manuel Barragan Primary Care Provider [phone] Encounter Details Date Type Department Care Team (Late st Contact Info) Description 07/27/2018 Orders Only [facility] Gen Surg Edg [address] [facility] [address] [place] [address] Dany Crouch MD [address] [place] [address] [address] [place], [place] [id number] History of breast cancer Social History Tobacco [...] End Date anastrozole (ARIMIDEX) 1 mg Oral TabletIndications:H istory of breast cancer Take 1 Tab by mouth daily. 90 Tab 3 07/27/2018 09/29/2018 documented in this encounter Plan of Treatment Upcoming Encounters Date Type Department Care Team (Late st Contact Info) Description 05/24/2024 10:30 AM EST Office Visit [facility] [address] [place] [phone] Nikolas Jha DPM [address] [place] [address] [address] [place] [address] [place] [phone] documented as of this encounter Visit Diagnoses Diagnosis History of breast cancer Personal history of malignant neoplasm of breast documented in this encounter Discontinued Medications Medication Sig Discontinue Reason Start Date End Da te anastrozole (ARIMIDEX) 1 mg Oral TabletIndications:History of breast cancer Take 1 Tab by mouth daily. Reorder 03/19/2016 07/27/2018 documented as of this encounter Additional Health Concerns Assessment Noted Time A fall risk assessment has been complete d for the patient 07/29/2016 10:44 AM EST documented as of this encounter Care Teams Orthotic Practitioner Relationship Specialty Start Date End Date Carlos Manuel Barragan [address] [place] [address] [place] [address] PCP - General 07/03/10 documented as of this encounter
--- OUTSIDE RECORDS SUMMARY | 2024-05-04 22:54 | XMS_ITS | Encounter Summary ---
Author Organization [place] [address] Care Team Providers Care Lead Tinner Name Role Phone Carlos Manuel Barragan Primary Care Provider [phone] Reason for Visit * Reason Comments Cough congestion, ear full ness, x 2 weeks ago, dry cough and chest tightness, x 1 week, pt has tried theraflu cold and sinus and alkaseitzer plus with some relief Encounter Details Date Type Department Care Team (Late st Contact Info) Description 07/14/2017 2:30 PM EST Office Visit [facility] [address] [phone] Sanna Meek MD Acute maxillary sinusitis, recurrence not specified (Primary Dx) Social History Tobacco Use Types [...] Sign Reading Time Taken Comments Blood Pressure 150/80 07/14/2017 2:45 PM EST Pulse 52 07/14/2017 2:45 PM EST Temperature 36.8 ??C (98.2 ??F) 07/14/2017 2:45 PM ES T Respiratory Rate - - Oxygen Saturation 99% 07/14/2017 2:45 PM EST Inhaled Oxygen Concentration - - Weight 89.8 kg (198 lb) 07/14/2017 2:45 PM EST Height - - Body Mass Index 31.96 07/08/2017 4:07 PM EST documented in this [...] Refills Last Filled Start Date End Date cefdinir (OMNICEF) 300 mg Oral Capsule Take 1 Cap by mouth every 12 hours for 10 days. 20 Cap 07/14/2017 07/24/2017 documented in this encounter Progress Notes * Sanna Meek MD - 07/14/2017 2:30 PM EST Subjective Subjective: Patient ID: Juany Alarcon is a 67 y.o. female. Chief Complaint Patient presents with ??? Cough congestion, ear fullness, x 2 weeks ago, dry cough and chest tightness, x 1 week, pt has tried theraflu cold and sinus and alkaseitzer plus with some relief HPI: Urgent Care Encounter HPI Patient is a 67 y.o. female here for congestion and associated with sinus pressure, cough. Onset of symptoms was gradual 2 weeks ago with unchanged course since that time. Nothing makes it better. Nothing makes it worse. Patient has tried Nothing. Patient Active Problem List Diagnosis Date Noted ??? Breast cancer (HCC) 02/09/2015 Past Medical History: Diagnosis Date ??? Anemia [...] cpap at night. does not know setting Past Surgical History: Procedure Laterality Date ??? BREAST BIOPSY Left 02/07/15 ??? BREAST BIOPSY Left 03/03/2015 ??? BREAST RECONSTRUCTION Left 11/16/2015 LEFT BREAST STAGE 2 RECONSTRUCTION WITH IMPLANT RIGHT BREAST REDUCTION FOR SYMMETRY ; Surgeon: Flaco Damon MD; Location: [facility]; Service: Plastics ??? BREAST REDUCTION SURGERY Right 11/16/2015 Surgeon: Flaco Damon MD; Location: [facility]; Service: Plastics ??? BREAST SURGERY Left 06/02/2015 BREAST RECONSTRUCTION 1ST STAGE WITH EXPANDERS ; Surgeon: Flaco Damon MD; Location: [facility]; Service: General ??? CHOLECYSTECTOMY ??? COLONOSCOPY ??? FOOT SURGERY Left 10/05/2010 hammertoes ??? HIP SURGERY 2009 right total ??? KNEE SURGERY 2008 right TKR ??? LYMPH NODE DISSECTION Left 01/2015 4 nodes removed ??? MASTECTOMY Left 06/02/2015 ??? TONSILLECTOMY Outpatient Prescriptions Marked as Taking for the 07/14/17 encounter (Office Visit) with Sanna Meek MD Medication Sig Dispense Refill ??? anastrozole (ARIMIDEX) [...] Particle/Crystal Take 20 mEq by mouth daily. Allergies Allergen Reactions ??? Morphine confusion ??? Penicillins Rash Social History Substance Use Topics ??? Smoking status: Never Smoker ??? Smokeless tobacco: Never Used ??? Alcohol use Yes Comment: socially Family History Problem Relation Age of Onset ??? Ovarian Cancer Mother 83 ??? Cancer Mother uterus ??? Breast Cancer Sister 52 ??? Heart Failure Father ??? Thyroid Disease Father ??? Anesth Problems Neg Hx Patients past medical, family and social histories were reviewed and updated. There were no changesexcept as noted. Review of Systems Constitutional: Negative for chills and fever. HENT: Positive for congestion, ear pain, postnasal drip, sinus pressure and sore throat. Eyes: Negative for redness. Respiratory: Positive for cough. Negative for shortness of breath and wheezing. Neurological: Positive for headaches. Negative for dizziness. Objective Objective: Vitals: 07/14/17 1445 BP: 150/80 BP Location: Left arm Patient Position: Sitting Pulse: 52 Temp: 98.2 ??F (36.8 ??C) TempSrc: Tympanic SpO2: 99% Weight: 198 lb (89.8 kg) Body mass index is 31.96 kg/m??. Physical Exam Constitutional: She appears well-developed and well-nourished. No distress. HENT: Right Ear: Tympanic membrane normal. Left Ear: Tympanic membrane normal. Nose: Mucosal edema present. No rhinorrhea. Mouth/Throat: Posterior oropharyngeal erythema present. Cardiovascular: Normal rate, regular rhythm and normal heart sounds. No murmur heard. Pulmonary/Chest: Effort normal and breath sounds normal. Lymphadenopathy: She has no cervical adenopathy. Nursing note and vitals reviewed. . Assessment and Plan: Juany was seen today for cough. Diagnoses and all orders for this visit: Acute maxillary sinusitis, recurrence not specified Other orders - cefdinir (OMNICEF) 300 mg Oral Capsule; Take 1 Cap by mouth every 12 hours for 10 days. No Follow-up on file. documented in this encounter Miscellaneous Notes * Addendum Note - Sanna Meek MD - 07/14/2017 2:30 PM ESTAddended by: SANNA LENTZ on: 07/18/2017 10:13 AM Modules accepted: Level of Service documented in this encounter Plan of Treatment Upcoming Encounters Date Type Department Care Team (Late st Contact Info) Description 05/24/2024 10:30 AM EST Office Visit [facility] [address] [place] [phone] Nikolas Jha [facility] [address] [facility] [address] [place] [address] documented as of this encounter Visit Diagnoses Diagnosis Acute maxillary sinusitis, recurrence not specified- Primary documented in this encounter Additional Health Concerns Assessment Noted Time A fall risk assessment has been complete d for the patient 07/29/2016 10:44 AM EST documented as of this encounter Care Teams Lead Tinner Relationship Specialty Start Date End Date Carlos Manuel Barragan [address] [facility] [address] [place] [address] PCP - General 07/03/10 documented as of this encounter
--- OUTSIDE RECORDS SUMMARY | 2024-05-04 22:54 | XMS_ITS | Encounter Summary ---
Author Organization [place] [address] Care Team Providers Care Independent Jeweler Name Role Phone Carlos Manuel Barragan Primary Care Provider [phone] Encounter Details Date Type Department Care Team (Latest Contact Info) Description 02/27/2017 3:44 PM EDT - 02/27/2017 11:59 PM EDT Hospital Encounter [facility] [place] [id number] Well woman exam Discharge Disposition: Home or Self Care Social [...] Take 10 mg by mouth every evening. documented as of this encounter Discharge Disposition Disposition Code Departure Means Destination Home or Self Care documented in this encounter Plan of Treatment Upcoming Encounters Date Type Department Care Team (Late st Contact Info) Description 05/24/2024 10:30 AM EST Office Visit [facility] [address] [place] [phone] Nikolas Jha DPM [address] [place] [address] [address] [place] [phone] documented as of this encounter Procedures Procedure Name Priority Date/Time Associated Diagnosis Comments COAL TRAMMER CYTOLOGY REPORT Routine 02/27/2017 1 0:36 AM EDT documented in this encounter Results * COAL TRAMMER CYTOLOGY REPORT (02/27/2017 10:36 AM EDT) Straddle Carrier Operator Cytology Report ? PATIENT NAME:DIAMANTE EDOUARD W ? Straddle Carrier Operator Cytology Report ? Accession Number ?Collected Date/Time ? Received Date/Time ? [id number] ? 02/27/17 10:36 EDT ?02/27/17 15:36 EDT ? GY Specimen Source ? Specimen Vag/Cerv/Endocx?: Vag/Cerv/Endocerv ? Statement of Adequacy ? Satisfactory for Evaluation. ? Diagnosis ? NEGATIVE FOR INTRAEPITHELIAL LESION OR MALIGNANCY Atrophic change Present. ? Comment ? The Pap Smear is a screening test that aids in the detection of cervical ? cancer and cancer precursors. ??Both false positive and false negative ? results can occur. ??The test should be used at regular intervals, and ? positive results should be confirmed before definitive ? therapy. ? Processed using the [employer] automated cytology screening device ? (Master Route). ? Lawn Care Professional: PRINCE DE GUZMAN ?02/28/2017 ? Completed by: ??ANNELIESE Miller ?(Electronically signed by) ?02/28/2017 ?[facility] Laboratory [facility] 02/27/2017 10:3 6 AM EDT us Adrian Marshall MD PATHOLOGY ORDERABLES Final R esult [facility] [address] [place] [address] documented in this encounter Visit Diagnoses Diagnosis Well woman exam Routine general medical examination at a health care facility documented in this encounter Orders Lab Orders Without Results Count Last Ordered D ate First Ordered Date COAL TRAMMER CYTOLOGY REQUEST (PAP ONLY) 1 7 documented in this encounter Additional Health Concerns Assessment Noted Time A fall risk assessment has been complete d for the patient 07/29/2016 10:44 AM EST documented as of this encounter Care Teams Independent Jeweler Relationship Specialty Start Date End Date Carlos Manuel Barragan [facility] [address] [facility] [id number] PCP - General 07/03/10 documented as of this encounter
--- OUTSIDE RECORDS SUMMARY | 2024-05-04 22:54 | XMS_ITS | Encounter Summary ---
Author Organization [place] [address] Care Team Providers Care Rn Imaging Name Role Phone Carlos Manuel Barragan Primary Care Provider [phone] Reason for Referral * Mammography (Routine) - Closed Specialty Diagnoses / Procedures Referred By Heather santos Referred To Contact Radiology Diagnoses Encounter for screening mammogram for malignant neoplasm of breast Procedures MM MAMMO DIGITAL SCREENING W CAD RIGHT CHG SCREENING MAMMOGRAPHY BI 2-VIEW BREAST INC CAD KS SCR MAMMO BI INCL CAD Dany Crouch MD [address] [place] [address] [address] [place] [address] Phone: tel: fax: Referral ID Status Reason Start Date Expiration Date Visits Re quested Visits Authorized [id number] Closed 06/12/2017 06/12/2019 1 1 Reason for Visit * Mammography (Routine) - Closed Specialty Diagnoses / Procedures Referred By Heather santos Referred To Contact Radiology Diagnoses Encounter for screening mammogram for malignant neoplasm of breast Procedures MM MAMMO DIGITAL SCREENING W CAD RIGHT CHG SCREENING MAMMOGRAPHY BI 2-VIEW BREAST INC CAD [place] SCR MAMMO BI INCL CAD Dany Crouch MD [address] [place] [address] [address] [place] [address] Phone: tel: fax: Referral ID Status Reason Start Date Expiration Date Visits Re quested Visits Authorized [id number] Closed 06/12/2017 06/12/2019 1 1 Encounter Details Date Type Department Care Team (Latest Contact Info) Description 06/16/2017 1:33 PM EST - 06/16/2017 11:59 PM [facility] Hospital Encounter [place] [facility] [place] [address] Dany Crouch MD [address] [facility] [address] [place] [address] Encounter for screening mammogram for malignant neoplasm [...] 10:30 AM EST Office Visit [facility] [address] [place] [phone] Nikolas Jha DPM [address] [place] [address] RD [address] [place] [phone] documented as of this encounter Procedures Procedure Name Priority Date/Time Associated Diagnosis Comments MM MAMMO DIGITAL SCREENING W CAD RIGHT Routine 06/16/2017 2:03 PM EST Encounter for screening mammogram for malignant neoplasm of breast documented in this encounter Results * MM MAMMO DIGITAL SCREENING W CAD RIGHT (06/16/2017 2:03 PM EST) Anatomical Region Laterality Modality Breast Right Mammography 06/17/2017 10:2 8 AM EST Impressions 06/17/2017 10:37 AM EST : Negative ??([id number]) ~ RECOMMENDATION: Routine screening mammogram of the [...] target due date for the next mammogram. The mammogram was reviewed by a Radiologist and CAD. Narrative 06/17/2017 10:37 AM EST Procedure:MM MAMMO DIGITAL SCREENING W CAD RIGHT ~ Reason for exam: screening, asymptomatic. ~ MM MAMMO DIG SCREEN CAD RIGHT CC and MLO view(s) were taken of the right breast. Prior study comparison: May 17, 2016, MM MAMMO DIGITAL DIAG CAD RIGHT performed at [facility]. There are scattered fibroglandular densities. ??Status post left mastectomy. Status post right breast reduction in 2016. No suspicious calcifications. Compared to prior studies the most recent being 05-17-16 ~ us Dany Crouch MD IMG MAMMOGRAPHY ORDERABLES Final Result documented in this encounter Visit Diagnoses Diagnosis Encounter for screening mammogram for malignant neoplasm of breast Other screening mammogram documented in this encounter Additional Health Concerns Assessment Noted Time A fall risk assessment has been complete d for the patient 07/29/2016 10:44 AM EST documented as of this encounter Care Teams Rn Imaging Relationship Specialty Start Date End Date Carlos Manuel Barragan [address] [place] [address] [address] [place] [id number] PCP - General 07/03/10 documented as of this encounter
--- OUTSIDE RECORDS SUMMARY | 2024-05-04 22:54 | XMS_ITS | Encounter Summary ---
Author Organization [place] [address] Care Team Providers Care Information Coordinator Name Role Phone Carlos Manuel Barragan Primary Care Provider [phone] Reason for Referral * MRI/CAT Scan (Routine) - Closed Specialty Diagnoses / Procedures Referred By Contac t Referred To Contact Radiology Diagnoses Lumbar radiculopathy Procedures MRI LUMBAR SPINE WO CONTRAST Scar Rodriguez MD [facility] [place] [address] Phone: tel: fax: Referral ID Status Reason Start Date Expiration Date Visits Re quested Visits Authorized [id number] Closed 03/02/2018 03/02/2019 1 1 Reason for Visit * MRI/CAT Scan (Routine) - Closed Specialty Diagnoses / Procedures Referred By Contac t Referred To Contact Radiology Diagnoses Lumbar radiculopathy Procedures MRI LUMBAR SPINE WO CONTRAST Scar Rodriguez MD [address] [place] [address] Phone: tel: fax: Referral ID Status Reason Start Date Expiration Date Visits Re quested Visits Authorized [id number] Closed 03/02/2018 03/02/2019 1 1 Encounter Details Date Type Department Care Team (Latest Contact Info) Description 03/06/2018 11:32 AM EDT - 03/06/2018 11:59 PM EDT Hospital Encounter [facility] [place] [facility] [address] [place] [address] Scar Rodriguez MD [address] [place] [address] Lumbar radiculopathy Discharge Disposition: Home or Self Care Social [...] AM EST Office Visit [facility] [address] [place] [phone] Nikolas Jha DPM [address] [place] [address] RD [address] [place] [phone] documented as of this encounter Procedures Procedure Name Priority Date/Time Associated Diagnosis Comments MRI LUMBAR SPINE WO CONTRAST Routine 03/06/2018 12:18 PM EDT Lumbar radiculopathy documented in this encounter Results * MRI LUMBAR SPINE WO CONTRAST (03/06/2018 12:18 PM EDT) Anatomical Region Laterality Modality Spine, L-spine Magnetic Resonan ce 03/06/2018 12:1 8 PM EDT Impressions 03/06/2018 1:45 PM EDT Multilevel discogenic disease and facet arthropathy as outlined in detail above. Narrative 03/06/2018 1:45 PM EDT MRI LUMBAR SPINE WITHOUT CONTRAST, ??03/06/2018 12:18 PM ?? CLINICAL HISTORY: ??M54.16-Radiculopathy, lumbar [id number] COMPARISON: ??June 2010 PROCEDURE COMMENTS: Multiplanar multiecho MR imaging of the lumbar spine without contrast. FINDINGS: ?? Marrow signal normal and the osseous structures. Moderate scoliosis convex to the LEFT present. 3 mm degenerative listhesis L2 in relation to L3 present. Alignment otherwise maintained. Conus medullaris is at the lower L1 level and appears normal Level by level analysis: At T11-12 and T12-L1 disc desiccation with mild disc bulge but no central stenosis or foraminal narrowing seen L1/L2: Disc desiccation and mild disc bulge. Mild facet arthropathy RIGHT greater than LEFT. No central stenosis. Mild RIGHT foraminal narrowing L2/L3: Disc desiccation and mild disc bulge with posterior hypertrophic spur. Mild facet arthropathy bilaterally with mild lateral indentation on the thecal sac and borderline central stenosis. Moderate RIGHT and mild LEFT foraminal narrowing for the exiting L2 nerve roots L3/L4: Mild disc bulge. Moderate facet arthropathy. Mild lateral indentation on the thecal sac and borderline central stenosis. Mild bilateral foraminal narrowing. L4/L5: Mild diffuse disc bulge and spur. Moderate facet arthropathy. Mild global central stenosis. Mild bilateral foraminal narrowing. L5/S1: Broad-based diffuse spondylitic change with a LEFT paracentral predominance. Mild effacement of the anterior thecal sac. Mild facet arthropathy bilaterally. Mild bilateral foraminal narrowing. Procedure Note Blanco Walsh MD - 03/06/2018 MRI LUMBAR SPINE WITHOUT CONTRAST, 03/06/2018 12:18 PM CLINICAL HISTORY: M54.16-Radiculopathy, lumbar [id number] COMPARISON: June 2010 PROCEDURE COMMENTS: Multiplanar multiecho MR imaging of the lumbar spinewithout contrast. FINDINGS: Marrow signal normal and the osseous structures. Moderate scoliosis convexto the LEFT present. 3 mm degenerative listhesis L2 in relation to [id number]. Alignment otherwise maintained. Conus medullaris is at the lower L1 leveland appears normal Level by level analysis: At T11-12 and T12-L1 disc desiccation with mild disc bulge but nocentral stenosis or foraminal narrowing seen L1/L2: Disc desiccation and mild disc bulge. Mild facet arthropathyRIGHT greater than LEFT. No central stenosis. Mild RIGHT foraminal narrowing L2/L3: Disc desiccation and mild disc bulge with posterior hypertrophicspur. Mild facet arthropathy bilaterally with mild lateral indentation on thethecal sac and borderline central stenosis. Moderate RIGHT and mild LEFTforaminal narrowing for the exiting L2 nerve roots L3/L4: Mild disc bulge. Moderate facet arthropathy. Mild lateralindentation on the thecal sac and borderline central stenosis. Mild bilateral foraminal narrowing. L4/L5: Mild diffuse disc bulge and spur. Moderate facet arthropathy. Mildglobal central stenosis. Mild bilateral foraminal narrowing. L5/S1: Broad-based diffuse spondylitic change with a LEFT paracentral predominance. Mild effacement of the anterior thecal sac. Mild facetarthropathy bilaterally. Mild bilateral foraminal narrowing. IMPRESSION: Multilevel discogenic disease and facet arthropathy as outlined in detail above. us Scar Rodriguez MD IMG MRI ORDERABLES Final Result documented in this encounter Visit Diagnoses Diagnosis Lumbar radiculopathy Thoracic or lumbosacral neuritis or radiculitis, unspecified documented in this encounter Additional Health Concerns Assessment Noted Time A fall risk assessment has been complete d for the patient 07/29/2016 10:44 AM EST documented as of this encounter Care Teams Information Coordinator Relationship Specialty Start Date End Date Carlos Manuel Barragan [address] [place] [address] [address] [place] [id number] PCP - General 07/03/10 documented as of this encounter
--- OUTSIDE RECORDS SUMMARY | 2024-05-04 22:54 | XMS_ITS | Encounter Summary ---
Author Organization [place] [address] Care Team Providers Care Stitch Rubber Name Role Phone Carlos Manuel Barragan Primary Care Provider [phone] Reason for Visit * Reason Comments Back Pain Pt c/o lower back pa in radiating to both legs since 0230. Pt states hx-back issues. No new injury. CPTA: none Encounter Details Date Type Department Care Team (Late st Contact Info) Description 05/21/2018 4:42 AM EST - 05/21/2018 7:00 AM EST [facility] [place] [address] Scar Vincent MD [address] [place] [address] [place] [address] Sciatica of right side (Primary Dx); Right hip pain; Lumbar disc disease Discharge Disposition: Home or Self Care Social [...] Sign Reading Time Taken Comments Blood Pressure 148/88 05/21/2018 6:22 AM EST Pulse 69 05/21/2018 4:33 AM EST Temperature 36.7 ??C (98.1 ??F) 05/21/2018 4:33 AM ES T Respiratory Rate 20 05/21/2018 4:33 AM EST Oxygen Saturation 100% 05/21/2018 4:33 AM EST Inhaled Oxygen Concentration - - Weight 95.3 kg (210 lb) 05/21/2018 4:33 AM EST Height 167.6 cm (5' 6 ) 05/21/2018 4:33 AM EST Body Mass Index 33.89 05/21/2018 4:33 AM EST documented in this encounter Functional [...] this encounter Discharge Instructions * Discharge Instructions* Scar Vincent MD - 05/21/2018 6:45 AM EST Return for worsening pain, fever, inability to urinate, leg weakness, discoloration or coldness to the foot, or any other concern. Continue current medications otherwise. Follow up with her primary care provider as needed. documented in this encounter Medications at Time [...] Code Departure Means Destination Home or Self [facility] documented in this encounter ED Notes * Deepika Arce RN - 05/21/2018 5:49 AM EST Nurse ambulated patient per MD order. Patient able to shuffle short distance but did not tolerate well regarding pain. MD notified. * Scar Vincent MD - 05/21/2018 4:27 AM EST CHIEF COMPLAINT Chief Complaint Patient presents with ??? Back Pain Pt c/o lower back pain radiating to both legs since 229. Pt states hx-back issues. No new injury. CPTA: none HPI Juany Alarcon is a 68 y.o. female who presents For evaluation. Patient has a history of chronic lower back pain related to lumbar disc disease. Intermittently will have radicular pain in hips going into the lateral leg. Symptoms are intermittent, at times will fact left leg but usually affects right leg. Had epidural injection 2 months ago in February which significantly improved her symptoms. Over the last 2-3 weeks, has started to have some recurrent symptoms. No acute injury or trauma. Her pain management physician offered to do another injection a couple weeks ago, but she felt like she was doing okay and deferred at that time. She has an appointment to see him in mid May. Woke up this morning at 2:00 in the morning and went to the bathroom. Came back to her bed and when she sat down on her bed, she started to have recurrent pain in the right hip going down the lateral upper leg to the right knee consistent with her sciatica. No urine retention. No abdominal pain. No fever. No extremity weakness or numbness. No medication prior to arrival. Has been on anti-inflammatories in the past, which initially were helpful but have become less helpful recently. Does not tolerate narcotics due to GI symptoms REVIEW OF SYSTEMS See HPI for further details. Review of systems otherwise negative. PAST MEDICAL HISTORY Past Medical History: Diagnosis Date ??? Anemia [...] know setting ??? Wears glasses for reading FAMILY HISTORY Family History Problem Relation Age of Onset ??? Ovarian Cancer Mother 83 ??? Cancer Mother uterus ??? Breast Cancer Sister 52 ??? Heart Failure Father ??? Thyroid Disease Father ??? Anesth Problems Neg Hx SOCIAL HISTORY Social History Social History ??? Marital status: Spouse name: N/A ??? Number of children: N/A ??? Years of education: N/A Social History Main Topics ??? Smoking status: Never Smoker ??? Smokeless tobacco: Never Used ??? Alcohol use Yes Comment: socially ??? Drug use: No ??? Sexual activity: No Other Topics Concern ??? None Social History Narrative ??? None SURGICAL HISTORY Past Surgical History: Procedure Laterality [...] EXPANDERS ; Surgeon: Flaco Damon MD; Location: [facility] OR; Service: General ??? CARPAL TUNNEL RELEASE Bilateral 02/12/2018 BILATERAL CARPAL TUNNEL RELEASE ; Surgeon: Francisco Javier Lepe MD; Location: [facility]; Service: Hand ??? CHOLECYSTECTOMY ??? COLONOSCOPY ??? DENTAL SURGERY wisdom teeth extracted ??? FOOT SURGERY Left 10/05/2010 hammertoes ??? HIP SURGERY 2009 right total ??? KNEE SURGERY 2008 right TKR ??? TONSILLECTOMY CURRENT MEDICATIONS Current Facility-Administered Medications: ??? methylPREDNISolone acetate (DEPO-Medrol) injection 40 mg, 40 mg, Intramuscular, Once, Scar Vincent MD Current Outpatient Prescriptions: ??? anastrozole (ARIMIDEX) 1 mg Oral Tablet, Take 1 Tab by mouth daily. (Patient not taking: Reported on 01/30/2018), Disp: 90 Tab, Rfl: 3 ??? anastrozole (ARIMIDEX) 1 mg Oral Tablet, Take 1 Tab by mouth daily. (Patient not taking: Reported on 01/30/2018), Disp: 90 Tab, Rfl: 3 ??? anastrozole (ARIMIDEX) 1 mg Oral Tablet, Take 1 Tab by mouth daily. (Patient not taking: Reported on 01/30/2018), Disp: 90 Tab, Rfl: 3 ??? anastrozole (ARIMIDEX) 1 mg Oral Tablet, Take 1 Tab by mouth daily., Disp: 90 Tab, Rfl: 3 ??? aspirin 81 mg tablet, Take 81 mg by mouth daily., Disp: , Rfl: ??? bisoprolol-hydrochlorothiazide (ZIAC) 5-6.25 mg per tablet, Take 1 Tab by mouth daily., Disp: ,Rfl: ??? Cholecalciferol, Vitamin D3, 2,000 unit Oral Capsule, Take by mouth daily., Disp: , Rfl: ??? Diclofenac Potassium (ZIPSOR) 25 mg Cap, Take 25 mg by mouth daily. 3 tablets, Disp: , Rfl: ??? FOLIC ACID/MULTIVIT-MIN/LUTEIN (CENTRUM SILVER ORAL), Take by mouth. Reported on 07/24/2016, Disp: , Rfl: ??? meloxicam (MOBIC) 15 mg Oral Tablet, Take 15 mg by mouth daily., Disp: , Rfl: ??? montelukast (SINGULAIR) 10 mg Oral Tablet, Take 10 mg by mouth every evening., Disp: , Rfl: ??? PARoxetine (PAXIL) 10 mg Oral Tablet, Take 1 Tab by mouth daily. (Patient not taking: Reported on 07/14/2017), Disp: 30 Tab, Rfl: 2 ??? potassium chloride SA (K-DUR;KLOR-CON) 20 mEq Oral Tab Sust.Rel. Particle/Crystal, Take 20 mEq by mouth daily., Disp: , Rfl: ??? rosuvastatin (CRESTOR) 10 mg Oral Tablet, Take 10 mg by mouth daily., Disp: , Rfl: ??? vitamin E 1,000 unit Oral Capsule, Take 1,000 Units by mouth daily. Reported on 07/29/2016, Disp:, Rfl: ALLERGIES Allergies Allergen Reactions ??? Morphine Other (See Comments) confusion ??? Penicillins Rash PHYSICAL EXAM VITAL SIGNS: BP 127/68 (BP Location: Left arm, Patient Position: Sitting) Pulse 69 Temp 98.1 ??F (36.7 ??C) (Forehead) Resp 20 Ht 5' 6 (1.676 m) Wt 210 lb (95.3 kg) SpO2 100% BMI 33.89kg/m?? Constitutional: Well developed, Well nourished, No acute distress, Non-toxic appearance. HENT: Normocephalic and atraumatic Eyes: Pupils equal. EOMs intact Neck: Normal range of motion, No tenderness, Supple, No stridor. Cardiovascular: Normal heart rate, Normal rhythm, No murmurs, No rubs, No gallops. Thorax & Lungs: Normal breath sounds, No respiratory distress, No wheezing, No chest tenderness. Abdomen: Bowel sounds normal, Soft, No tenderness, No masses, No pulsatile masses. Skin: Warm, Dry, No erythema, No rash. Back: No tenderness, No CVA tenderness. No spinal tenderness. Extremities: Intact distal pulses, No edema, No tenderness, No cyanosis, No clubbing. Neurologic: Alert, oriented. Strength 5/5 in lower extremities. Light touch sensation is intact. Musculoskeletal: Lumbar back and thoracic back nontender. States some discomfort in the right hip with range of motion. This is chronic and reoccurring. No warmth or erythema. negative logroll. Psychiatric: Affect normal, Judgment normal, Mood normal. Results for orders placed or performed during the hospital encounter of 05/21/18 XR HIP RIGHT AP LATERAL W AP PELVIS Narrative XR HIP RIGHT AP LATERAL W AP PELVIS, 05/21/2018 6:33 AM CLINICAL HISTORY: 68 years Female -BACK PAIN PROCEDURE COMMENTS: 3 views. AP view of the pelvis with AP and frog-leg views of the hip. COMPARISON: None. Impression RIGHT total hip arthroplasty with intact components, anatomically aligned. No pelvic osseous abnormality. 2 cm ossified bone fragment lateral to greater trochanter either avulsion injury (of indeterminate age), or heterotopic calcification. Correlation with clinical findings recommended. COURSE & MEDICAL DECISION MAKING Pertinent Labs & Imaging studies reviewed. (See chart for details) Patient presents with aggravation of right radicular pain from known lumbar disc disease. Intact neurovascular exam. Given a dose of Depo-Medrol. Patient declining narcotic at this time. Patient had MRI a few months ago: Level by level analysis: ?? At T11-12 and T12-L1 disc desiccation with mild disc bulge but no central stenosis or foraminal narrowing seen ?? L1/L2: Disc desiccation and mild disc bulge. Mild facet arthropathy RIGHT greater than LEFT. No central stenosis. Mild RIGHT foraminal narrowing ?? L2/L3: Disc desiccation and mild disc bulge with posterior hypertrophic spur. Mild facet arthropathy bilaterally with mild lateral indentation on the thecal sac and borderline central stenosis. Moderate RIGHT and mild LEFT foraminal narrowing for the exiting L2 nerve roots ?? L3/L4: Mild disc bulge. Moderate facet arthropathy. Mild lateral indentation on the thecal sac and borderline central stenosis. Mild bilateral foraminal narrowing. ?? L4/L5: Mild diffuse disc bulge and spur. Moderate facet arthropathy. Mild global central stenosis. Mild bilateral foraminal narrowing. ?? L5/S1: Broad-based diffuse spondylitic change with a LEFT paracentral predominance. Mild effacement of the anterior thecal sac. Mild facet arthropathy bilaterally. Mild bilateral foraminal narrowing. Patient given dose of IM fentanyl and Zofran. Feeling much better. Intact neurologically. No venousor arterial insufficiency. Comfortable discharge. Given precautions. Symptoms seem to be related to combination of arthritis in the right hip and her lumbar disc disease. FINAL IMPRESSION 1. Sciatica of right side 2. Right hip pain 3. Lumbar disc disease . This chart was completed using voice recognition technology and may contain unintended errors Scar Vincent MD 05/21/18 0647 documented in this encounter Plan of Treatment Upcoming Encounters Date Type Department Care Team (Late st Contact Info) Description 05/24/2024 10:30 AM EST Office Visit [facility] [address] [place] [phone] Nikolas Jha, [facility] [address] [place] [phone] documented as of this encounter Procedures Procedure Name Priority Date/Time Associated Diagnosis Comments XR HIP RIGHT AP LATERAL W AP PELVIS ANABEL 05/21/2018 6:33 AM EST documented in this encounter Results * XR HIP RIGHT AP LATERAL W AP PELVIS (05/21/2018 6:33 AM EST) Anatomical Region Laterality Modality Hip Radiographic Lindsey ging 05/21/2018 6:33 AM EST Impressions 05/21/2018 6:38 AM EST RIGHT total hip arthroplasty with intact components, anatomically aligned. No pelvic osseous abnormality. 2 cm ossified bone fragment lateral to greater trochanter either avulsion injury (of indeterminate age), or heterotopic calcification. Correlation with clinical findings recommended. Narrative 05/21/2018 6:38 AM EST XR HIP RIGHT AP LATERAL W AP PELVIS, ??05/21/2018 6:33 AM CLINICAL HISTORY: ??68 years Female ??-BACK PAIN PROCEDURE COMMENTS: 3 views. AP view of the pelvis with AP and frog-leg views of the hip. COMPARISON: ?? None. Procedure Note Brian Figueroa MD - 05/21/2018 XR HIP RIGHT AP LATERAL W AP PELVIS, 05/21/2018 6:33 AM CLINICAL HISTORY: 68 years Female -BACK PAIN PROCEDURE COMMENTS: 3 views. AP view of the pelvis with AP and frog-legviews of the hip. COMPARISON: None. IMPRESSION: RIGHT total hip arthroplasty with intact components, anatomically aligned. No pelvic osseous abnormality. 2 cm ossified bone fragmentlateral to greater trochanter either avulsion injury (of indeterminate age), orheterotopic calcification. Correlation with clinical findings recommended. cSar Vincent MD [facility] Final Result documented in this encounter Visit Diagnoses Diagnosis Sciatica of right side- Primary Sciatica Right hip pain Pain in joint, pelvic region and thigh Lumbar disc disease Other and unspecified disc disorder of lumbar region documented in this encounter Administered Medications Inactive Administered Medications - up to 1 most recent administrations Medication Order MAR Action Action Date Dose Rate Site fentaNYL (SUBLIMAZE) injection 50 mcg 50 mcg, Intramuscular, ONCE, 1 dose, On Dagmar 05/21/18 at 0615 Given 05/21/2018 6:20 AM EST 50 mcg Right upper gluteus methylPREDNISolone acetate (DEPO-Medrol) injection 40 mg 40 mg, Intramuscular, ONCE, 1 dose, On Dagmar 05/21/18 at 0500 Given 05/21/2018 5:02 AM EST 40 mg Left Arm ondansetron (ZOFRAN) injection 4 mg 4 mg, Intramuscular, ONCE, 1 dose, On Dagmar 05/21/18 at 0615 Given 05/21/2018 6:20 AM EST 4 mg Right upper gluteus documented in this encounter Active and Recently Administered Medications Times are shown in EST. Scheduled Medication Order 05/19/2018 05/20/2018 05/21/2018 fentaNYL (SUBLIMAZE) injection 50 mcg (COMPLETED) 50 mcg, Intramuscular, ONCE, 1 dose, On Dagmar 18 at 0615 0620 (Given - Provid er: Deepika Arce RN) methylPREDNISolone acetate (DEPO-Medrol) injection 40 mg (COMPLETED) 40 mg, Intramuscular, ONCE, 1 dose, On Dagmar 05/21/18 at 0500 0502 (Given - Provid er: Deepika Arce RN) ondansetron (ZOFRAN) injection 4 mg (COMPLETED) 4 mg, Intramuscular, ONCE, 1 dose, On Dagmar 05/21/18 at 0615 0620 (Given - Provid er: Deepika Arce RN) documented in this encounter Additional Health Concerns Assessment Noted Time A fall risk assessment has been complete d for the patient 07/29/2016 10:44 AM EST documented as of this encounter Care Teams Stitch Rubber Relationship Specialty Start Date End Date Carlos Manuel Barragan [facility] [address] [place] [address] PCP - General 07/03/10 documented as of this encounter
--- OUTSIDE RECORDS SUMMARY | 2024-05-04 22:55 | XMS_ITS | Encounter Summary ---
Author Organization [place] [address] Care Team Providers Care Office 365 Consultant Name Role Phone Carlos Manuel Barragan Primary Care Provider [phone] Reason for Visit * Auth/Cert/Inpt Specialty Diagnoses / Procedures Referred By Contac t Referred To Contact Diagnoses HX: breast cancer History of left mastectomy Disproportion of reconstructed breast HX: breast cancer History of left mastectomy Disproportion of reconstructed breast Procedures NC REPLACE TISSUE FNP NC DELAY BREAST PROS AFTER BREAST SURG NC REDUCTION OF LARGE BREAST LEFT STAGE 2 RIGHT REDUCTION FOR SYMMETRY Referral ID Status Reason Start Date Expiration Date Visits Re quested Visits Authorized [id number] 1 1 Encounter Details Date Type Department Care Team (Late st Contact Info) Description 11/16/2015 8:29 AM EDT Anesthesia Event EDG [address] [place] [address] Karely Fletcher MD [address] [place] [address] Corby Toussaint MD [address] [place] [address] [facility] [place] [address] Anesthesia Record Procedure Summary Procedure Name Responsible Anesthesiologist Anesthesia Start Time Anesthesia Stop Time BREAST RECONSTRUCTION SECOND STAGE REPLACE EXPANDERS WITH IMPLANTS (Left: Breast) Karely Fletcher MD 11/16/15 0829 11/16/15 1049 Events Date Time Event Comment 11/16/2015 0733 0747 AN Equip Check 0829 An Start 0829 An Start Data 0829 Immediate Pre Anesthetic Ass es 0834 An Induction 0836 An LMA 0836 Anesthesia Ready 0843 Time out 0844 Incision 1039 Airway Removed 1042 an stop data 1049 Handoff I completed my SBAR handoff to the receiving nurse which have included the followin. Identification of the patient, family, or patient surrogate 2. Identification of the responsible practitioner 3. Pertinent medical history 4. Surgical procedure and reason for procedure 5. Intraoperative anesthetic management 6. Expectations/Plans for the early post-procedure period 7. Opportunity for questions and acknowledgement of understanding from the receiving PACU/ICU steam press tender 1049 An Stop Meds Name Total lidocaine injection 1% 100 mg propofol (DIPRIVAN) injection 200 mg fentaNYL 50 MCG/ML INJ 200 mcg ondansetron (ZOFRAN) injection 4 mg /2 m L 4 mg dexamethasone (DECADRON) injection 4 mg/ mL 8 mg acetaminophen (OFIRMEV)1000 mg/100 mL in fusion 1,000 mg vancomycin (VANCOCIN) reconstituted inje ction 1,000 mg 1 g glycopyrrolate (ROBINUL) injection 0.4 m g HYDROmorphone (DILAUDID) injection 1 mg/ ml 1 mg lactated ringers infusion 1,200 mL * Agents Name O2 Et Sevoflurane * Blood No blood administrations on file. Lines, Drains, and Airways Type Details Placement Removal Incision/Procedural Site 11/16/15; Breast; Left; 11/16/15; 1648 11/16/15 0000 by Josselin Rivera RN 11/16/15 1648 by Discharge Provider, Automatic Incision/Procedural Site 11/16/15; Breast; Right; 11/16/15; 1648 11/16/15 0000 by Josselin Rivera RN 11/16/15 1648 by Discharge Provider, Automatic Peripheral IV 11/16/15; 0748; 22; Right; Hand; Jody Palomino RN; 1; 11/16/15; 1201; Therapy completed, No complications; Catheter intact 11/16/15 0748 by Mirna Palomino RN 11/16/15 1201 by Carolyn Cesar RN Airway Device: LMA; Size: 4 ; Placement Date: 11/16/15; Placement Time: 835; Removal Date: 11/16/15; Removal Time: 10311/16/15 0836 by Karely Fletcher MD 11/16/15 103 by Karely Fletcher MD documented in this encounter Social History Tobacco [...] Mitzi Jimenez APRN documented in this encounter OR Notes * Anesthesia Postprocedure Evaluation - Weston Rojas MD - 11/16/2015 12:11 PM EDT Post-Anesthesia Evaluation Note Patient Name: Juany Alarcon Patient Date: November 16, 2015 Patient Location: SDS Post OP Vitals: stable Level of Consciousness: awake, alert and oriented Post Anesthesia Pain: adequate analgesia Airway Patency: patent Respiratory: spontaneous ventilation and room air Cardiovascular: stable and BP within 20% of baseline Hydration: euvolemic Nausea Controlled: yes Comments: 11/16/15 1155 BP: 126/72 Pulse: 74 Temp: 36.4 ??C (97.6 ??F) Resp: 18 SpO2: 99% Doing well * Anesthesia Preprocedure Evaluation - Weston Rojas MD - 11/02/2015 5:10 PM EDT Pre-Anesthesia Evaluation Note Patient Name: Juany Alarcon Sex: female Patient : 1950 Age: 65 y.o. Patient Date: November 02, 2015 Procedure: LEFT STAGE 2 RIGHT REDUCTION FOR SYMMETRY Anesthesia Evaluation Patient summary reviewed and Previous anesthesia History of anesthetic complications: PONV Airway Mallampati: III TM distance: >3 FB Neck ROM: full Dental - normal exam Pulmonary breath sounds clear to auscultation (+)sleep apnea on CPAP, Cardiovascular (+) hypertension, , Rhythm: regular Rate: normal Neuro/Psych GI/Hepatic/Renal Endo/Other (+) anemia, Current Body mass index is 32.13 kg/(m^2). Anesthesia Plan ASA 2 Anesthesia Plan: general Intravenous induction Monitors: STD Anesthetic plan and risks discussed with patient. Use of blood products discussed with patient whom consented to blood products. documented in this encounter Plan of Treatment Upcoming Encounters Date Type Department Care Team (Late st Contact Info) Description 05/24/2024 10:30 AM EST Office Visit [facility] [place] [address] [place] [phone] Abhijeet Nikolas Trejo, DPMitzi [address] [place] [address] documented as of this encounter Visit Diagnoses Not on filedocumented in this encounter Administered Medications Inactive Administered Medications - up to 1 most recent administrations Medication Order MAR Action Action Date Dose Rate Site acetaminophen (OFIRMEV) infusion Intravenous, PRN (Anesthesia), Starting on Fri11/16/15 at 0908, Until Fri11/16/15 at 1049, Administer over 15 Minutes, Anesthesia Intra-op Given 11/16/2015 9:08 AM EDT 1,000 mg dexamethasone (DECADRON) injection Intravenous, PRN (Anesthesia), Starting on Fri11/16/15 at 0834, Until Dagmar 11/16/15 at 1049, Anesthesia Intra-op Given 11/16/2015 8:34 AM EDT 8 mg fentaNYL (SUBLIMAZE) 50 mcg/mL injection Intravenous, PRN (Anesthesia), Starting on Fri11/16/15 at 0834, Until Dagmar 11/16/15 at 1049, Anesthesia Intra-op Given 11/16/2015 9:08 AM EDT 50 mcg glycopyrrolate (ROBINUL) injection PRN (Anesthesia), Starting on Fri11/16/15 at 0851, Until Dagmar 11/16/15 at 1049, Anesthesia Intra-op Given 11/16/2015 8:54 AM EDT 0.2 mg HYDROmorphone (DILAUDID) injection PRN (Anesthesia), Starting on Fri11/16/15 at 0914, Until Dagmar 11/16/15 at 1049, Anesthesia Intra-op Given 11/16/2015 9:14 AM EDT 1 mg lactated ringers infusion Intravenous, at 50 mL/hr, PREPROCEDURE CONTINUOUS, Starting on Fri11/15/15 at 0806, Until Fri11/16/15 at 1648, To be given in SDS/Pre-op Holding Area, Pre-op (Holding/SDS Meds) New Bag 11/16/2015 9:59 AM EDT lidocaine 1% 10 mg/mL (1 %) injection Intravenous, PRN (Anesthesia), Starting on Dagmar 11/16/15 at 0834, Until Dagmar 11/16/15 at 1049, Anesthesia Intra-op Given 11/16/2015 8:34 AM EDT 100 mg ondansetron (ZOFRAN) 4 mg/2 mL injection Intravenous, PRN (Anesthesia), Starting on Dagmar 11/16/15 at 0834, Until Dagmar 11/16/15 at 1049, Nausea, Anesthesia Intra-op Given 11/16/2015 8:34 AM EDT 4 mg propofol (DIPRIVAN) injection Intravenous, PRN (Anesthesia), Starting on Dagmar 11/16/15 at 0834, Until Dagmar 11/16/15 at 1049, Anesthesia Intra-op Given 11/16/2015 8:34 AM EDT 200 mg vancomycin (VANCOCIN) reconstituted injection 1,000 mg 1,000 mg, Topical, ONCE, 1 dose, On Dagmar 11/16/15 at 0830, VESICANT , Pre-op (Holding/SDS Meds) Given 11/16/2015 8:29 AM EDT 1 g documented in this encounter Care Teams Office 365 Consultant Relationship Specialty Start Date End Date Carlos Manuel Barragan [address] [place] [address] [address] [place] [address] PCP - General 07/03/10 documented as of this encounter
--- OUTSIDE RECORDS SUMMARY | 2024-05-04 22:55 | XMS_ITS | Encounter Summary ---
Author Organization [place] [address] Care Team Providers Care Cattle Dipper Name Role Phone Carlos Manuel Barragan Primary Care Provider [phone] Encounter Details Date Type Department Care Team (Late Contact Info) Description 04/07/2015 Orders Only [facility] [address] [facility] [address] [place] [address] Greer Rosario RMA Malignant neoplasm of left female breast, unspecified site of breast (HCC) (Primary Dx) Social History Tobacco Use Types Packs/Day Years Used Date Smoking Tobacco: Never Alcohol Use Standard Drinks/Week Comments Yes 0 (1 standard drink = 0.6 oz pur e alcohol) socially Comments No Sex and Gender Information Value Date Recorded Sex Assigned at Not on file Legal Sex Female 10:36 AM EDT Gender Identity Not on file Sexual Orientation Not on file documented as of this encounter Miscellaneous Notes * Addendum Note - Dany Crouch MD - 04/07/2015 3:09 PM ESTAddended by: DANY CROUCH on: 04/07/2015 03:09 PM Modules accepted: Orders documented in this encounter Plan of Treatment Upcoming Encounters Date Type Department Care Team (Late st Contact Info) Description 05/24/2024 10:30 AM EST Office Visit [facility] [place] [address] [place] [address] Nikolas Jha DPM [address] [place] [address] documented as of this encounter Visit Diagnoses Diagnosis Malignant neoplasm of left female breast, unspecified site of breast- Primary documented in this encounter Care Teams Cattle Dipper Relationship Specialty Start Date End Date Carlos Manuel Barragan [address] [facility] [address] [place] [address] PCP - General 07/03/10 documented as of this encounter
--- OUTSIDE RECORDS SUMMARY | 2024-05-04 22:55 | XMS_ITS | Encounter Summary ---
Author Organization [place] [address] Care Team Providers Care Rehab Liaison Name Role Phone Carlos Manuel Barragan Primary Care Provider [phone] Reason for Visit * Reason Onset Date Comments Other 06/23/2015 Encounter Details Date Type Department Care Team (Late st Contact Info) Description 06/23/2015 Telephone SEP Gen Surg Edg [address] [facility] [address] [place] [address] Greer Rosario RMA Other Social History Tobacco Use Types Packs/Day [...] No 06/03/2015 1:49 PM EST Mitzi Archersa Neil APRN * Because of a physical, [...] Telephone Encounter - Greer Rosario RMA - 06/23/2015 4:44 PM EST Read path report to Pt and she will follow up at the breast center for post op with Dr. Crouch documented in this encounter Plan of Treatment Upcoming Encounters Date Type Department Care Team (Late st Contact Info) Description 05/24/2024 10:30 AM EST Office Visit SEP Podiatry [address] [place] [phone] [address] Jha [address] [place] [phone] documented as of this encounter Visit Diagnoses Not on filedocumented in this encounter Care Teams Rehab Liaison Relationship Specialty Start Date End Date Carlos Manuel Barragan [address] [facility] [address] [place] [address] PCP - General 07/03/10 documented as of this encounter
--- OUTSIDE RECORDS SUMMARY | 2024-05-04 22:55 | XMS_ITS | Encounter Summary ---
Author [place] [address] Care Team Providers Care Laminator [employer]ed [employer] Boards Name Role Phone Carlos Manuel Barragan Primary Care Provider [phone] Reason for Visit * Reason Comments Follow-up Encounter Details Date Type Department Care Team (Latest Contact Info) Description 07/03/2015 10:45 AM EST - 07/03/2015 11:59 PM EST Hospital Encounter [facility] [place] [address] Dany Crouch MD [address] [place] [address] [address] [place] [address] Malignant neoplasm of left female breast, unspecified site of breast (HCC) (Primary Dx) Discharge Disposition: Home or Self [...] Sign Reading Time Taken Comments Blood Pressure 147/84 07/03/2015 11:25 AM EST Pulse 67 07/03/2015 11:25 AM EST Temperature 36.8 ??C (98.2 ??F) 07/03/2015 11:[address] Respiratory Rate - - Oxygen Saturation - - Inhaled Oxygen Concentration - - Weight 91.2 kg (201 lb) 07/03/2015 11:25 AM EST Height - - Body Mass Index 32.44 06/03/2015 8:33 AM EST documented in this encounter Functional [...] Progress Notes * Dany Crouch MD - 07/03/2015 11:51 AM EST Subjective: Ms. lAarcon is here for a scheduled routine follow-up visit History of Present Illness The patient is a 65 y.o. female who presents with a complaint of surgical follow up HPI Past Medical History Diagnosis Date ??? Hypertension ??? Blood transfusion with hip replacement ??? Postoperative nausea and vomiting ??? Anemia ??? Breast cancer (HCC) 02/09/15 ILC, grade 1. No receptors at this time (not sufficient tissue) ??? Motion sickness ??? Unspecified sleep apnea cpap at night. does not know setting- will bring setting and mask ??? Arthritis knees, hips,back ??? Encounter for blood transfusion with THR 2 units Patient Active Problem List Diagnosis Date Noted ??? Breast cancer (HCC) 02/09/2015 Past Surgical History Procedure Laterality Date ??? Cholecystectomy ??? Tonsillectomy ??? Colonoscopy ??? Breast biopsy Left 02/07/15 ??? Lymph node dissection Left 01/2015 4 nodes removed ??? Hip surgery 2009 right total ??? Knee surgery 2008 right TKR ??? Foot surgery Left hammertoes ??? Breast surgery Left 06/02/2015 BREAST RECONSTRUCTION 1ST STAGE WITH EXPANDERS ; Surgeon: Flaco Damon MD; Location: [facility] MAIN OR; Service: General Family History Problem Relation Age of Onset ??? Ovarian Cancer Mother 83 ??? Cancer Mother uterus ??? Breast Cancer Sister 54 ??? Cancer Sister breast ??? Heart Failure Father ??? Anesth Problems Neg Hx History Social History ??? Marital Status: Spouse Name: N/A Number of Children: N/A ??? Years of Education: N/A Social History Main Topics ??? Smoking status: Never Smoker ??? Smokeless tobacco: Never Used ??? Alcohol Use: Yes Comment: socially ??? Drug Use: No ??? Sexual Activity: None Other Topics Concern ??? None Social History Narrative Current Outpatient Prescriptions Medication Sig Dispense Refill [...] mg Cap Take 25 mg by mouth 4 times daily as needed. ??? montelukast (SINGULAIR) 10 mg Oral Tablet Take 10 mg by mouth every evening. ??? potassium chloride SA (K-DUR;KLOR-CON) 20 mEq Oral Tab Sust.Rel. Particle/Crystal Take 20 mEq by mouth daily. No current facility-administered medications for this encounter. Allergies Allergen Reactions ??? Morphine confusion ??? Penicillins Rash Review of Systems Objective: Filed Vitals: 07/03/15 1125 BP: 147/84 Pulse: 67 Temp: 98.2 ??F (36.8 ??C) Weight: 201 lb (91.173 kg) Body mass index is 32.46 kg/(m^2). Physical Exam Constitutional: She appears well-developed and well-nourished. Neck: Neck supple. No thyroid mass present. Cardiovascular: Normal rate and normal heart sounds. Pulmonary/Chest: Effort normal and breath sounds normal. Left breast exhibits skin change ( Left mastectomy incision healing well). Left breast exhibits no inverted nipple, no mass, no nipple discharge and no tenderness. Breasts are symmetrical. Abdominal: Bowel sounds are normal. Musculoskeletal: She exhibits no edema or tenderness. Skin: Skin is warm and dry. Psychiatric: She has a normal mood and affect. Her behavior is normal. Thought content normal. Nursing note and vitals reviewed. Assessment and Plan: Surgical Pathology Report Accession Number Collected Date/Time Received Date/Time [id number] 06/02/15 13:38 EST 06/02/15 16:21 EST Diagnosis Breast, left, mastectomy: - Multicentric and multifocal invasive lobular carcinoma, grade 1. - Tumor greatest dimension (9 cm). - Previous biopsy site changes. - Lobular carcinoma in situ (LCIS). - Fibrocystic changes. - Margins are negative for tumor. Discussed left mastectomy pathology showing a 9 cm tumor lobular carcinoma. Oncotype recurrence score was 16 and this is a low score. Discussed low benefit of chemotherapy She is taking Arimidex and I do not feel strongly radiating as this was a slow growing tumor with afavorable biology- this is a reed area. Offered consultation appt with radiation oncology and patient declined. Return in 6 months Note written by PRASANNA Reeves, acting as scribe for Yamel Crouch MD. Juany was seen today for follow-up. Diagnoses and all orders for this visit: Malignant neoplasm of left female breast, unspecified site of breast (HCC) ???I have reviewed this note and it accurately reflects my work and decisions made during this visit.?? Dany Crouch MD * Olesya Aiken RN - 07/03/2015 11:29 AM EST Pt seen in Breast clinic for surgical f/u; pt had Lt mastectomy on 06/02/15; with reconstruction per Dr. Damon; incision will approximated without signs of infection; has been on Arimidex since March P: knowledge deficit r/t pathology report G: educate I: discussed pathology report; discussed results of Oncotype 16; discussed low evidence that she would benefit from chemotherapy; discussed possibility of radiation; discussed studies show 10 year recurrence rate is 4% for larger tumors; Patient is comfortable to forgo chemotherapy and radiation Return in 6 months; Rt breast screening mammogram will be due in August documented in this encounter Miscellaneous Notes * Patient Instructions - Olesya Aiken RN - 07/03/2015 11:47 AM EST Images from the original note were not included. If you have any problems or questions, you can call the nurse navigator @ If you need to call regarding an appointment, call the nurse navigator guidance secretary @ [phone] It is recommended that you take Vitamin D3; there are new findings that associate low Vitamin D levels to breast cancer and lung cancer ; The usual over the counter dosage is 3029-9673 units daily.* 1000 units in the Summer and * 2000 units in the Winter You will be due for a screening mammogram in August; Call Scheduling @ [phone] Signs and symptoms to watch for following breast cancer include: 1)unusual and persistant shortnessof breath that has no explanation 2) unusual persistant bone/back pain that has no explanation and is capable of waking you up at night 3) Rt breast lumps or nipple discharge; Lt chest wall Don't forget to continue monthly Self Breast Exam on Rt breast Breast Cancer Survivor Follow-up Breast cancer treatment aims to get rid of all cancer cells, but sometimes a few remain in the body. These cells can then grow and cause the cancer to return (recur). If this happens, the goal is to find the cancer as soon as possible. Cancer can recur just a few months after treatment or years later. Most cases of recurrent breast cancer develop 3-5 years after treatment. WILL MY CANCER RETURN? There is no way to know if your breast cancer will return. However, your??chance of developing recurrent breast cancer is greater if you had: ?? Breast cancer before 60 years of age. ?? Breast cancer that involved the lymph nodes. ?? A tumor that was bigger than 2 inches (5 cm). ?? A high-grade tumor. These are tumors that grow more quickly than other types of tumors. ?? A close tumor margin. This means the space between the tumor and normal, noncancerous cells was small. ?? Inflammatory breast cancer. ?? HER2 cancer. ?? Surgery to remove the tumor but not the entire breast (lumpectomy) and no radiation therapy. SYMPTOMS OF RECURRENT BREAST CANCER Examine your breasts every month. You may find it helpful to do this on the same day each month andmark your calendar as a reminder. Let your health care provider know immediately if you have any signs or symptoms of recurrent breast cancer. Signs and symptoms of recurrent breast cancer vary. It depends on where the cancer is and how the original cancer was treated. Symptoms of a cancer that comes back in the same spot (local recurrence) after a lumpectomy, or a recurrence in the opposite breast may include: ?? A new lump or thickening in the breast. ?? A change in the way the skin of the breast looks (such as a rash, dimpling, or wrinkling). ?? Redness or swelling of the breast. ?? Changes in the nipple (such as it may be red, puckered, swollen, or leaking fluid). Symptoms of a recurrence after breast removal surgery (mastectomy) may include: ?? A lump or thickening under the skin. ?? A thickening around the mastectomy scar. Symptoms of a cancer that comes back in the lymph nodes near the breast (regional recurrence) may include: 1. A lump under the arm or above the collarbone. 2. Swelling of the arm. 3. Pain in the arm, shoulder, or chest. 4. Numbness in the hand or arm. Symptoms of cancer that comes back in an area of the body far away from the original cancer site (distant recurrence) may include: 1. A cough that does not go away. 2. Trouble breathing or shortness of breath. 3. Pain in the bones or the chest. This is pain that lasts or does not improve with rest and medicine. 4. Headaches. 5. Sudden vision problems. 6. Dizziness. 7. Nausea or vomiting. 8. Weight loss. 9. Persistent abdominal pain. 10. Changes in bowel movements or blood in the stool. 11. Yellowing of the skin or eyes (jaundice). 12. Blood in the urine or bloody vaginal discharge. FOLLOWING UP WITH YOUR HEALTH CARE PROVIDER Decide who your primary health care provider will be. Most people continue to see their cancer specialist (oncologist) every 3-6 months for the first year after cancer treatment. At some point, you may want to go back to seeing a family health care provider instead of your oncologist for regular checkups. Many women do this about 1 year after getting a breast cancer diagnosis. You would still need to see your oncologist as directed. You should also: ?? Keep a schedule of appointments for the tests and exams you need (including physical exams, breast exams, and exams of the lymph nodes). ?? For the first 3 years after being treated for breast cancer, see your health care provider every3-6 months. ?? In the fourth and fifth years after being treated for breast cancer, see your health care provider every 6-12 months. ?? From 5 years on after your breast cancer treatment, see your health care provider at least once a year. ?? Continue to have regular breast X-rays (mammograms), even if you had a mastectomy. ?? Get a mammogram 1 year after the mammogram that first detected breast cancer. ?? Get a mammogram every 6-12 months after that or as often as your health care provider suggests. ?? Have a pelvic exam every year or as often as your health care provider suggests. ?? Some tests are not recommended for routine screening. Someone recovering from breast cancer doesnot need to have these tests if there are no problems. The tests have risks, such as radiation exposure, and can be costly. The risks of these tests are thought to be greater than the benefits: ?? Blood tests. ?? Chest X-rays. ?? Bone scans. ?? Liver ultrasound. ?? CT. ?? MRI. ?? Positron emission tomography (PET scan). SEEK MEDICAL CARE IF: ?? You have any signs or symptoms of recurrent breast cancer. ?? You are taking a medicine prescribed to treat your breast cancer and have vaginal bleeding. ?? You discover new lumps in your breast. ?? You have headaches, bone, chest, or abdominal pain. ?? You have shortness of breath. ?? You have a cough that does not go away. ?? You have discharge from your nipple. ?? You have a rash on your breast. SEEK IMMEDIATE MEDICAL CARE IF: ?? You have trouble breathing. ?? You have chest pain. Document Released: 01/08/2012 Document Revised: 05/17/2014 Document Reviewed: 03/18/2014 ExitCare?? Patient Information ??2015 Docin. This information is not intended to replace advice given to you by your health care provider. Make sure you discuss any questions you have with your health care provider. Breast Self-Awareness Breast self-awareness allows you to [...] SELF-EXAM Look at your breasts and nipples. 5. Take off all your clothes above your waist. 6. concrete stone fabricating supervisor front of a mirror in a room with good lighting. 7. Put your hands on your hips and push your hands downward. Feel your breasts. 13. Lie flat on your back or grain shoveler the shower or tub. If you are in the shower or tub, have wet,soapy hands. 14. Place your right arm above your head. 15. Place your left hand in the right underarm area. 16. Make small circles using the pads (not the fingertips) of your 3 middle fingers. Press lightly and then with medium and firm pressure. 17. Move your fingers a little lower and make the small circles at the 3 pressures (light, medium, and firm). 18. Continue moving your fingers lower and making circles until you reach the bottom of your breast. 19. Move your fingers one finger-width towards the center of the body. 20. Continue making the circles, this time moving upward until you reach the bottom of your neck. 21. Move your fingers one finger-width towards the center of your body. 22. Make circles downward when starting at the bottom of the neck. Make circles upward when starting at the bottom of the breast. Stop when you reach the middle of the chest. 23. Repeat these steps on the other breast. [...] lump. ?? You feel unusually thick areas. Document Released: 10/28/2008 Document Revised: 04/28/2013 Document Reviewed: 08/26/2012 ExitCare?? Patient Information ??2014 Docin. This information is not intended to replace advice given to you by your health care provider. Make sure you discuss any questions you have with your health care provider. documented in this encounter Plan of Treatment Upcoming Encounters Date Type Department Care Team (Late st Contact Info) Description 05/24/2024 10:30 AM EST Office Visit SEP Podiatry [address] [phone] Nikolas Jha, SURENDRA [address] [address] [place] [address] documented as of this encounter Visit Diagnoses Diagnosis Malignant neoplasm of left female breast, unspecified site of breast- Primary documented in this encounter Care Teams Laminator [employer]ed [employer] Relationship Specialty Start Date End Date Carlos Manuel Barragan [address] [facility] [address] [place] [address] PCP - General 07/03/10 documented as of this encounter
--- OUTSIDE RECORDS SUMMARY | 2024-05-04 22:55 | XMS_ITS | Encounter Summary ---
Author Organization [place] [address] Care Team Providers Care Health And Wellness Sales Consultant Name Role Phone Carlos Manuel Barragan Primary Care Provider [phone] Reason for Visit * Reason Onset Date Comments Other 05/24/2015 Encounter Details Date Type Department Care Team (Late st Contact Info) Description 05/24/2015 Telephone SEP Gen Surg Edg [address] [facility] [address] [place] [address] Dany Crouch MD [address] [place] [address] [address] [place], [place] [id number] Other Social History Tobacco Use Types Packs/Day [...] encounter Miscellaneous Notes * Telephone Encounter - Day, Mary Salgado, Clerical Staff - 05/24/2015 11:11 AM EST LVM for pt stating surgery time had been moved back to 1 PM with a new arrival time of 11 AM. Askedpt to call back xander to confirm she got the message. documented in this encounter Plan of Treatment Upcoming Encounters Date Type Department Care Team (Late st Contact Info) Description 05/24/2024 10:30 AM EST Office Visit SEP Podiatry [address] [place] [phone] Nikolas Jha DPMitzi [address] [place] [address] [address] [place] [phone] documented as of this encounter Visit Diagnoses Not on filedocumented in this encounter Care Teams Health And Wellness Sales Consultant Relationship Specialty Start Date End Date Carlos Manuel Barragan [address] [facility] [address] [place] [address] PCP - General 07/03/10 documented as of this encounter
--- OUTSIDE RECORDS SUMMARY | 2024-05-04 22:55 | XMS_ITS | Encounter Summary ---
Author Organization [place] [address] Care Team Providers Care Size Maker Name Role Phone Carlos Manuel Barragan Primary Care Provider [phone] Reason for Visit * Auth/Cert/Inpt Specialty Diagnoses / Procedures Referred By Contniurka t Referred To Contact Diagnoses Malignant neoplasm of left female breast, unspecified site of breast Malignant neoplasm of left female breast, unspecified site of breast Procedures LEFT BREAST MASTECTOMY Referral ID Status Reason Start Date Expiration Date Visits Re quested Visits Authorized [id number] 1 1 Encounter Details Date Type Department Care Team (Late st Contact Info) Description 06/02/2015 1:00 PM EST - 06/02/2015 4:30 PM EST Surgery [facility] PERIOP [facility] [place] [address] Dany Crouch MD [address] [place] [address] [address] [place] [address] MASTECTOMY MODIFIED RADICAL Surgery Details Date/Time Status Location OR Service Patient Class Case Class Case Type Trauma Case? 06/02/2015 1:00 PM Posted [facility] MAIN OR [facility] Room 07 General Same Day Surgery N/A Panel 1 Procedure LRB Anes Op Region Wound Class Comments MASTECTOMY MODIFIED RADICAL Left General Clean LEFT BREAST MASTECTOMY Panel 2 Procedure LRB Anes Op Region Wound Class Comments BREAST RECONSTRUCTION FIRST STAGE WITH INSERTION OF EXPANDERS Left General Clean BREAST RECONSTRUCTION 1ST STAGE WITH EXPANDERS Surgeon Surgeon Role Service Panel Nas Damon MD Primary General 2 Dany Crouch MD Primary General 1 Special Needs ANN CPT; 05756 JENSEN CPT; 94977 [id number] [id number] REV; CHG FROM [facility]HARA ADMIT TO SDS PER VALERIA RP 05/05REV TM CH FR 12:30 TO 1:00 PER ANN documented in this encounter Social History Tobacco [...] Sign Reading Time Taken Comments Blood Pressure 123/53 06/03/2015 7:21 AM EST Pulse 77 06/03/2015 7:21 AM EST Temperature 36.8 ??C (98.3 ??F) 06/03/2015 7:21 AM ES T Respiratory Rate 18 06/03/2015 7:21 AM EST Oxygen Saturation 96% 06/03/2015 7:21 AM EST Inhaled Oxygen Concentration - - Weight 90.7 kg (200 lb) 06/03/2015 8:33 AM EST Height 167.6 cm (5' 6 ) 06/03/2015 8:33 AM EST Body Mass Index 32.28 06/03/2015 8:33 AM EST documented in this [...] 1:49 PM EST Mitzi Archer APRN documented as of this encounter Mental Status * Because of a physical, mental or emotional condition, does this person have serious difficulty concentrating, remembering or making decisions? Answer Entry Date Author No 06/03/2015 1:49 PM EST Mitzi Archer APRN documented in this encounter Discharge Summaries * Dany Crouch MD - 06/12/2015 1:06 PM EST [facility]/[place], [place] NAME: DIAMANTE EDOUARD [facility]#: [id number] LOCATION/ROOM: [facility] [id number] FACILITY: [facility] DICTATOR: Steven Crouch DISCHARGE SUMMARY Page 1 DISCHARGE SUMMARY ADMISSION DATE: 06/02/2015 DISCHARGE DATE: 06/03/2015 DISCHARGE DIAGNOSIS: Left breast cancer. HOSPITAL COURSE: Ms. Edouard was admitted after undergoing mastectomy and reconstruction. The following day, she was able to be discharged to home. Her final pathology was pending at the time of discharge. DISPOSITION: Discharge disposition was to home. She was discharged to her family, with oral pain medicines and antibiotics. She will be seeing the plastic surgeon and myself in followup. Steven Crouch MD By: jodi Job ID: [id number] DocID: [id number] CC: documented in this encounter Discharge Instructions * Discharge Instructions* Louisa Archer - 06/03/2015 1:55 PM EST Images from the original note were not included. CALL YOUR DOCTOR IF YOU HAVE ANY OF THE ABOVENo lifting or pulling of 10 lbs until you have been seen by the Doctor Keep a log of output from Drain and bring into office on next visit Call if you have any signs or symptoms of infections. No driving while taking pain medication and until clear by doctor. Continue taking the antibiotic prescribed prior to surgery until gone. SIGNS AND SYMPTOMS OF A WOUND INFECTION 1. Drainage from incision that looks like pus-thick green or yellow 2. Redness or warmth around, red streaks coming from the incision. 3. Swelling around the incision. 4.Tenderness or pain around the incision that seems to get worse. 5. Temperature greater than 100.5 degrees or less than 97 degrees. 6. Opening of the incision. 7. Other general signs of infection are headache, muscle aches, dizziness, chills, or general ill feeling. Bulb Drain Home Care A bulb drain consists of a thin rubber tube and a soft, round bulb that creates a gentle suction. The rubber tube is placed in the area where you had surgery. A bulb is attached to the end of the tube that is outside the body. The bulb drain removes excess fluid that normally builds up in a surgical wound after surgery. The color and amount of fluid will vary. Immediately after surgery, the fluidis bright red and is a little thicker than water. It may gradually change to a yellow or pink colorand become more thin and water-like. When the amount decreases to about 1 or 2 tbsp in 24 hours, your health care provider will usually remove it. DAILY CARE ?? Keep the bulb flat (compressed) at all times, except while emptying it. The flatness creates suction. You can flatten the bulb by squeezing it firmly in the middle and then closing the cap. ?? Keep sites where the tube enters the skin dry and covered with a bandage (dressing). ?? Secure the tube 1-2 in (2.5-5.1 cm) below the insertion sites, to keep it from pulling on your stitches. The tube is stitched in place and will not slip out. ?? Secure the bulb as directed by your health care provider. ?? For the first 3 days after surgery, there usually is more fluid in the bulb. Empty the bulb whenever it becomes half full because the bulb does not create enough suction if it is too full. The bulb could also overflow. Write down how much fluid you remove each time you empty your drain. Add up the amount removed in 24 hours. ?? Empty the bulb at the same time every day once the amount of fluid decreases and you only need to empty it once a day. Write down the amounts and the 24-hour totals to give to your health care provider. This helps your health care provider know when the tubes can be removed. EMPTYING THE BULB DRAIN Before emptying the bulb, get a measuring cup, a piece of paper, and a pen and wash your hands. ?? Gently run your fingers down the tube (stripping) to empty any drainage from the tubing into thebulb. This may need to be done several times a day to clear the tubing of clots and tissue. ?? Open the bulb cap to release suction, which causes it to inflate. Do not touch the inside of thecap. ?? Gently run your fingers down the tube (stripping) to empty any drainage from the tubing into thebulb. ?? Hold the cap out of the way, and pour fluid into the measuring cup. ? Squeeze the bulb to provide suction.? Replace the cap. ? Check the tape that holds the tube to your skin. If it is becoming loose, you can remove the loose piece of tape and apply a new one. Then, pin the bulb to your shirt. ? Write down the amount of fluid you emptied out. Write down the date and each time you emptied your bulb drain. (If there are 2 bulbs, note the amount of drainage from each bulb and keep the totalsseparate. Your health care provider will want to know the total amounts for each drain and which tube is draining more.) ? Flush the fluid down the toilet and wash your hands. ? Call your health care provider once you have less than 2 tbsp of fluid collecting in the bulb drain every 24 hours. If there is drainage around the tube site, change dressings and keep the area dry. Cleanse around tube with sterile saline and place dry gauze around site. This gauze should be changed when it is soiled. If it stays clean and unsoiled, it should still be changed daily. SEEK MEDICAL CARE IF: ?? Your drainage has a bad smell or is cloudy. ? You have a fever. ? Your drainage is increasing instead of decreasing. ? Your tube fell out. ? You have redness or swelling around the tube site. ? You have drainage from a surgical wound. ? Your bulb drain will not stay flat after you empty it. ?? MAKE SURE YOU: ?? Understand these instructions. ?? Will watch your condition. ?? Will get help right away if you are not doing well or get worse. Document Released: 05/09/2001 Document Revised: 03/02/2014 Document Reviewed: 10/14/2012 ExitCare?? Patient Information ??2015 [employer]. This information is not intended to replace advice given to you by your health care provider. Make sure you discuss any questions you have with your health care provider. Mastectomy Care After HOME CARE ?? Care for your wound after the bandages are off as told by your doctor. ?? Put soft padding such as gauze, soft cloth, or a nursing pad over your wound if you wear a bra. ?? Ask your doctor about groups that can help you with any emotions you may have after the surgery. ?? Exercise your arm and shoulder as told by your doctor. ?? Place your hands on a wall. Use your fingers to climb the wall. Reach as high as you can untilyou feel a stretch. When you are not exercising, keep your arm raised (elevated). ?? When sitting or lying down, put your arm up on pillows or rolled blankets. ?? Do not use your arm to lift or push anything heavier than 10 pounds (about one gallon of milk ) for the first 6 weeks. ?? Always take good care of the arm on the side that the breast was removed. ?? Never let anyone take your blood pressure, draw blood, or give you a shot in that arm. ?? Do not get even a small cut on that arm or hand. Use a thimble when you sew. Wear heavy gloves when you garden. ?? Use insect repellent on that arm if outside. ?? Do not use a razor to shave that underarm. You should use only an electric shaver. ?? Do not burn that arm. Use a glove when you reach into the oven. Cover your arm with a towel or wear a long-sleeved shirt when you are out in the sun. ?? Wear your watch and other jewelry on the other arm. ?? Wear a loose fitting rubber glove when you wash the dishes. Do not leave your hand in water for a long time, especially when you use detergents. ?? Do not cut your cuticles or hang nails. Push cuticles back with a towel after you take a bath. ?? Carry your purse or any heavy objects in the other arm. GET HELP RIGHT AWAY IF: ?? Your arm becomes very puffy (swollen). ?? You have redness or pain at the wound site. ?? There is a bad smell coming from the wound. ?? Thre is yellowish white fluid (pus) coming from your wound. ?? You have a fever. MAKE SURE YOU: ?? Understand these instructions. ?? Will watch your condition. ?? Will get help right away if you are not doing well or get worse. Document Released: 02/18/2009 Document Revised: 08/03/2012 Document Reviewed: 02/18/2009 ExitCare?? Patient Information ??2015 [employer]. This information is not intended to replace advice given to you by your health care provider. Make sure you discuss any questions you have with your health care provider. documented in this encounter Medications at Time [...] Departure Means Destination Home or Self Care Wheelchair Home documented in this encounter Progress Notes * Louisa Archer - 06/03/2015 2:16 PM EST Discharge instructions given and explained. ANUP was demonstrated. IV removed without difficulty. Louisa Archer Rn * Dany Crouch MD - 06/03/2015 7:39 AM EST Pain controlled with oral meds, no nausea Wound without erythema or necrosis. Drain minimal Will plan d/c to home today after breakfast if feeling well. documented in this encounter H&P Notes * Christine August MD - 06/02/2015 12:17 PM EST H&P Update History & Physical Reviewed Pt seen and examined. NO CHANGES Source Note - Unknown, Unknown - 05/24/2015 2:01 PM EST documented in this encounter Procedure Notes * Dany Crouch MD - 06/13/2015 8:59 PM EST [facility]/[place]/[facility]/[place], [place] NAME: DIAMANTE EDOUARD#: [id number] LOCATION/ROOM: [place] [address] FACILITY: [facility] DICTATOR: Steven Crouch OPERATIVE REPORT Page 1 OPERATIVE REPORT DATE OF OPERATION: 06/02/2015 PREOPERATIVE DIAGNOSIS: Left breast cancer. POSTOPERATIVE DIAGNOSIS: Left breast cancer. OPERATIVE PROCEDURE: Left total mastectomy with stage 1 reconstruction. SURGEONS: Yamel Crouch M.D.; and Dr. Damon is reconstructive surgeon. ANESTHESIA: General. Operative indications: Ms. Edouard is a 65-year-old woman with left breast cancer who wished to undergo a mastectomy and reconstruction. The risks, benefits, and alternatives were explained to her in detail and she wished to proceed. OPERATIVE REPORT: After informed consent was obtained, the patient was taken to the operating room,where she was placed, prepped and draped in the usual sterile fashion. A circumareolar incision was planned and injected with local anesthetic. The skin was opened sharply. Left breast skin flaps were then elevated superiorly to the clavicle, medially to the sternal border, inferiorly to the inframammary crease, and laterally to the latissimus tendon. The breast and pectoral fascia were then removed in a superior to inferior and medial to lateral fashion. The tail of Joyce was removed, but previous sentinel node biopsy had been performed and was negative. This was marked and sent for permanent section. The wound was inspected and dried. Hemostasis was complete. The wound was packed with a warm moist gauze. Dr. Damon will be dictating the reconstruction. Steven Crouch MD By: tls Job ID: [id number] Doc ID: [id number] CC: * Dany Crouch MD - 06/02/2015 3:23 PM EST [facility] OPERATIVE/PROCEDURE NOTE Diamante Edouard June 02, 2014 PRE-OP DIAGNOSIS: Malignant neoplasm of left female breast, unspecified site of breast POST-OP DIAGNOSIS: Malignant neoplasm of left female breast, unspecified site of breast PROCEDURE(S): Procedure(s): LEFT BREAST MASTECTOMY BREAST RECONSTRUCTION 1ST STAGE WITH EXPANDERS SURGEON(S): Surgeon(s) and Role: Panel 1: * Dany Crouch MD - Primary Panel 2: * Nas Damon MD - Primary PRODUCTION CONTROL COORDINATING CLERK(S): ANESTHESIA: General SPECIMENS: ID Type Source Tests Collected by Time Destination 1 : left breast suture lateral Dany Crouch MD 06/02/2015 1339 Pathology ESTIMATED BLOOD LOSS: * No values recorded between 06/02/2015 1:00 PM and 06/02/2015 3:23 PM * COMPLICATIONS (IF YES, LIST COMPLICATIONS): No OTHER INFO: DISPOSITION/POST PROC COURSE: pacu Dany Crouch MD Date: 06/02/2015 * Nas Damon MD - 06/02/2015 3:07 PM EST LOCATION: [facility] MAIN OR OR: [facility] OR7 OPERATIVE REPORT DATE OF OPERATION: 06/02/2015 PROCEDURE: 1. Left breast reconstruction with tissue expanders. 2. Leftl reconstruction of inframammary folds using autogenous de-epithelialized dermal flap. (96 cm squared on the left) SURGEON: Nas Damon MD PRODUCTION CONTROL COORDINATING CLERK: ANESTHESIA: General. INDICATIONS FOR PROCEDURE: Diamante Edouard is a 65 y.o. female with macromastia, glandular ptosis and breast cancer. The patient is undergoing a mastectomy on the left side for therapeutic reasons. This will be dictated by Dr. Crouch in a separate operative report. Due to her excessive macromastia and glandular ptosis, the patient will be undergoing a reduction mastectomy, so that her closure will be performed in the pattern of a reduction in order to allow for dealing with extra skin. The final incision will be placed in the position of the inframammary fold. Due to her extra long inferior pedicle, the inferior portion of her inferior mastectomy flap will be used as the patient's autogenous own dermal flap to embrace or wrap the manufacturer representative with, rather than a piece of cadaveric acellular dermis. She understands that she willneed a right breast reduction in the future for symmetry. PROCEDURE: The patient was correctly identified in the preop holding area. Risks and benefits of the procedure were entertained but not limited to bleeding, infection, scarring and asymmetry. Knowing this, she agreed and consented to the procedure. She was then marked for the procedure and was then transferred to the main OR. She then underwent left mastectomies by Dr. Crouch, which he will dictate in a separate operative report. I then received the patient in the same general anesthetic and a timeout was performed in which site, surgery, surgeon, and the patient were verified. Dissection was begun on the left side. The wound was then irrigated and hemostasis was assured. At this point, with the patient's inferior mastectomy flap folded upwards onto the chest wall, the superior mastectomy flap was then redraped over to where the point had met the inframammary fold. The skin was then imbricated here and tailor tacked down with chris. A marking pencil was then used to delineate out the imbricated skin. This was done bilaterally. Sutures and chris were removed and the imbricated skin of the inferior mastectomy flap was then de-epithelialized using a curved Naylor scissors. The size of this internal flap was 6 x 16 or 96 cm squared. a subpectoral plane was then created using a lighted retractor, and the pectoralis major muscle was disinserted off its medial attachments on the sternum and inferior attachments on the rib cage. The wound was then copiously irrigated and the irrigation was evacuated. Hemostasis was assured. At this point, the wound was reprepped with Betadine, gloves were changed and the wound was redraped with sterile towels and a [place] low profile 550 mL low height tissue manufacturer representative was removed from the sterile packaging, devoid of all the air and placed with a no touch technique in the subpectoral pocket. The autogenous dermal flap based on the inferior mastectomy flap was then custom tailored and sutured to the inferior border of the pectoralis major muscle and laterally to the serratus muscle. The lateral portion was then rolled in and imbricated into the axilla for closure. At this point, the wound was then copiously irrigated. A 15 round drain was placed and brought out through a separate stab incision and placed under the mastectomy flap. The wound was then temporarily closed with chris and definitively closed with a 2-0 Monocryl for dermis and 3-0 Monocryl subcuticular for skin. The ANUP drain was sutured in place with 3-0 nylon and hooked to bulb suction. Intraoperative expansion was performed to 0 cc on the left. The ANUP drain was hooked in place with a 3-0 nylon suture and hooked to ANUP bulb suction. No fluid was placed into the manufacturer representative and the wound was then dressed with large Steri-Strips, 4 x 4's, ABD, and tape. At the end of procedure, all sponge, needle and instrument counts were correct and the patient was sent to recovery room in stable condition. Nas Damon MD [facility] [address] [place] [address] [address] [phone] ([place] office) [phone] ([place] office) [phone] (fax) * Nas Damon MD - 06/02/2015 3:07 PM EST PLASTIC SURGERY BRIEF OP NOTE (NAS DAMON MD) DATE: 06/02/2015 PREOP: Malignant neoplasm of left female breast, unspecified site of breast POSTOP: Malignant neoplasm of left female breast, unspecified site of breast PROCEDURE: Procedure(s): MASTECTOMY MODIFIED RADICAL BREAST RECONSTRUCTION 1ST STAGE WITH EXPANDERS SURGEON: Surgeon(s) and Role: Panel 1: * Dany Crouch MD - Primary Panel 2: * Nas Damon MD - Primary PRODUCTION CONTROL COORDINATING CLERK: NONE ANESTHESIA: Anesthesiologist: Ashley Medrano MD CATHODE WASHER: Deborah Martins CRNA RRNA: Fernanda Carty ARNP STUDENT ANESTHETIC: General IVF: ? mL Crystalloid EBL: 50 mL total SPEC: ID Type Source Tests Collected by Time Destination 1 : left breast suture lateral Dany Crouch MD 06/02/2015 1339 Pathology DRAINS: None STAFF: Jewelry Appraiser: Esperanza Callahan RN Relief Jewelry Appraiser: Cheri Sethi RN; Yelitza Jamison RN Scrub Naylor: Sana Washington, SUSY Scrub Assist: Johnna Mccoy RN Relief Scrub Assist: Francisco Javier Myrick RN/SA Preceptor: Meli Lawrence RN LOCATION: [facility] MAIN OR OR: [facility] OR7 Nas Damon MD [facility] [address] [phone] ([place] office) [phone] ([place] office) [phone] (fax) documented in this encounter Nursing Notes * Alexia Kim RN - 06/02/2015 12:03 PM EST Report to Kiarra JAIN * Alexia Kim RN - 06/02/2015 11:44 AM EST Clari from OR office will call to tell us when to start Vanc. * Susan Patel - 06/01/2015 7:47 AM EST 02/14/15 outdated h&p in epic documented in this encounter Miscellaneous Notes * Plan of Care - Hortencia Delgadillo RN - 06/03/2015 12:51 AM EST Problem: Pain Management Goal: The patient???s stated pain goal will be reached and maintained. The patient???s stated pain goal will be reached and maintained Outcome: Progressing Patient has been well controlled with PRN pain medications. Problem: Safety: Fall Risk Goal: Patient will remain free of falls and injury Outcome: Progressing Patient has remained free from falls, bed alarm is on at all times and patient calls out for assistance. Problem: Knowledge deficit related to postoperative care and postoperative complications Related to postoperative care and postoperative complications Goal: Patient/family verbalizes understanding of care Related to the surgical procedure and the complications involved Outcome: Progressing Patient understands post op complications. * Plan of Care - Chanell Huerta RN - 06/02/2015 10:09 PM EST Problem: Pain Management Goal: The patient???s stated pain goal will be reached and maintained. The patient???s stated pain goal will be reached and maintained Outcome: Progressing Patients pain well controlled with PRN [place], will continue to monitor and support pain as needed. Problem: Safety: Fall Risk Goal: Patient will remain free of falls and injury Outcome: Progressing Patient remains free of falls, call light within reach, encouraged to call for assistance when needed. Problem: Knowledge deficit related to postoperative care and postoperative complications Related to postoperative care and postoperative complications Goal: Patient/family verbalizes understanding of care Related to the surgical procedure and the complications involved Outcome: Progressing Patient updated on POC. documented in this encounter Plan of Treatment Upcoming Encounters Date Type Department Care Team (Late st Contact Info) Description 05/24/2024 10:30 AM EST Office Visit [facility] [address] [address] Nikolas Jha, DPMitzi [address] [facility] [address] [place] [address] documented as of this encounter Procedures Procedure Name Priority Date/Time Associated Diagnosis Comments SCANNED RHYTHM STRIPS 06/06/2015 5:31 PM EST PATHOLOGY TISSUE REPORT Routine 06/02/2015 1:38 PM EST BREAST RECONSTRUCTION FIRST STAGE WITH INSERTION OF EXPANDERS 06/02/2015 1:00 PM EST Malignant neoplasm of left female breast, unspecified site of breast (HCC) Special Needs ANN CPT; 48486 JENSEN CPT; 30377 05678 50206 REV; CHG FROM SAHARA ADMIT TO SDS PER VALERIA RP 12/11REV TM CH FR 12:30 TO 1:00 PER ANN SD/1230 MASTECTOMY MODIFIED RADICAL 06/02/2015 1:00 PM EST Malignant neoplasm of left female breast, unspecified site of breast (HCC) Special Needs ANN CPT; 94941 JENSEN CPT; 25005 35735 31104 REV; CHG FROM SAHARA ADMIT TO SDS PER VALERIA RP 12/11REV TM CH FR 12:30 TO 1:00 PER ANN SD/1230 DIFFERENTIAL STAT 06/02/2015 12:51 PM EST CBC WITH DIFF STAT 06/02/2015 12:51 PM EST documented in this encounter Results * SCANNED RHYTHM STRIPS (06/06/2015 5:31 PM EST) Anatomical Region Laterality Modality Other 06/06/2015 5:31 PM EST us Unknown Unknown IMG ECG ORDERABLES Final Result * PATHOLOGY TISSUE REPORT (06/02/2015 1:38 PM EST) Surgical Pathology Report ? PATIENT NAME:DIAMANTE EDOUARD ?Surgical Pathology Report ? Accession Number ?Collected Date/Time ? Received Date/Time ? [id number] ? 06/02/15 13:38 EST ?06/02/15 16:21 EST ? Diagnosis ? Breast, left, mastectomy: ? - Multicentric and multifocal invasive lobular carcinoma, grade 1. ? - Tumor greatest dimension (9 cm). ? - Previous biopsy site changes. ? - Lobular carcinoma in situ (LCIS). ? - Fibrocystic changes. ? - Margins are negative for tumor. ? Surgical Pathology Cancer Case Summary Protocol for the Examination of ? Specimens From Patients With Invasive Carcinoma of the Breast (Including ? Previous Biopsy Specimen [id number]) ? Invasive Carcinoma of the Breast Invasive Breast 3.2.0.0 ? Specimen Identification ? Procedure: ??Mastectomy ? Lymph Node Sampling: ?? [place] lymph nodes (based on the previous biopsy ? specimen [id number]) ? Specimen Laterality: ?? Left ? Histologic Type of Invasive Carcinoma: ?? Invasive lobular carcinoma ? Tumor Size, Size of Largest Invasive Carcinoma: ? Greatest Dimension: ? 90 mm (10 mm of the 2nd focus) ? Histologic Grade: ?? Fer Histologic Score: ??Grade 1 ??Score 5 ? Glandular (Acinar)/Tubular Differentiation: ??3 ? Nuclear Pleomorphism: 1 ? Mitotic Count: 1 ? Tumor Focality: ?Multifocal ? Ductal carcinoma in-situ (DCIS): ??Not present ? Macroscopic and Microscopic Extent of Tumor (DELETE entire section if N/A): ? Nipple: ??Negative for Paget's disease ? Margins: ? Margins uninvolved by invasive carcinoma ? Distance from closest margin: 10 mm ? Designation of margin: ??Posterior and inferior ? Lymph Nodes (DELETE entire section if N/A): ? Total number of lymph nodes examined (sentinel and nonsentinel): 4 ? Number of sentinel lymph nodes examined: 4 ? (based on previous biopsy ? specimen [id number]). ? Lymph Node Involvement (required only if positive, DELETE section if N/A) ? Number of lymph nodes with macrometastases (>2 mm): ?? 0 ? Number of lymph nodes with micrometastases (>0.2 mm to 2 mm and/or >200 ? cells): ?? 0 ? Number of lymph nodes with isolated tumor cells (0.2 mm and 200 cells): ?? 0 ? (based on previous biopsy specimen -). ? Lymph-Vascular Invasion: ??Not identified ? Pathologic Staging (pTNM) ? m (multiple foci of invasive carcinoma) ? Primary Tumor (Invasive Carcinoma): pT3: Tumor more than 50 mm in greatest ? dimension ? Regional Lymph Nodes: pN0: No regional lymph node metastasis identified ? histologically ??(based on the previous biopsy specimen -35). ? Distant Metastasis (M): ??N/A ? BREAST CANCER BIOMARKER STUDIES ? (performed on previous biopsy [id number]): ? ER ?? Positive ?97%/3+/8 ? [place] ?? Positive ?49%/3+/7 ? HER-2 ignacio by IHC ?Equivocal ?? (2+) ? HER-2 ignacio by FISH ?Negative ?? (HER-2/CEP17 ratio 1.1, and HER-2 Spot ? count 3.3) ? REFERENCE RANGES ??ER and PgR: ??Positive: >=1% ?Negative: < 1% ? HER-2: ??Negative: ??0-1+ ?? Equivocal: ??2+ ?Positive: ??3+ ? Stephon Cartagena Yousef ? (Electronically signed by) ? Verified: 06/09/2015 ? FTT Lab ? Clinical Information ? Malignant neoplasm of left female breast, unspecified site of breast. ? Breast removal time: 13:38 ? Formalin time: 13:48 ? Breast time to formalin: ??10 minutes ? Fresh ? Gross Description ? Received fresh and subsequently fixed in formalin labeled with the ? patient's name and left breast suture lateral is a mastectomy specimen ? consisting of a 1072 gram, 18.5 x 16.5 x 5.5 cm breast with an overlying ? 6.0 x 5.0 cm ellipse of alexander skin, including an inverted nipple. There is ? attached possible axillary tissue, 8.5 x 4.5 x 2.0 cm. The specimen is ? oriented (suture price lateral). The skin surface shows no discrete surface ? scars or lesions. The superior margin is inked green, inferior blue, and ? deep black. The breast is serially sectioned. At the 3 o'clock position, 5 ? cm from the nipple, is a 0.5 cm in diameter needle core biopsy cavity with ? clip, 1.5 cm from the closest margin (lateral anterior). The biopsy site is ? situated within a large mass-like area of firm yellow-white fibrofatty ? tissue (9 cm in greatest dimension) involving the majority of the lateral ? half of the breast. This large mass-like area is 1 cm from the closest ? margin (deep). There are multiple ill-defined possible lesions within the ? large mass like area. ??At the 6 o'clock position, separate from the large ? mass-like area, is a 1 cm in greatest dimension firm white spiculated ? lesion. ??The lesion is 3 cm from the nipple and 1 cm from the closest ? margin (inferior). The remainder of the breast is fibrofatty without ? further discrete lesions. Sections of the inverted nipple show alexander-pink ? soft tissue without focal lesions. No lymph nodes are identified within the ? possible axillary tissue. Metal Roaster sections are submitted as follows: ? A-B: ? Needle core biopsy site, 3 o'clock position ? C-E: ?Sections immediately adjacent to biopsy site ? F: ? lateral anterior margin closest to biopsy site ? G-K: ?Random sections of large mass-like area, lateral breast ? L: ? Deep margin closest to large mass-like area ? M-O: ?Lesion, 6 o'clock position ? P: ? Inferior margin closest to 6 o'clock lesion ? Q-S: ?Random sections of medial breast ? T - U: ?Inverted nipple / BC ? HLR/DH ? Microscopic Description ? Microscopic examination is performed and the findings corroborate the ? diagnosis. [facility] 06/02/2015 1:38 PM EST us Dany Crocuh MD PATHOLOGY ORDERABLES Final Result Performing Organization Address [facility] [place] [address] * DIFFERENTIAL (06/02/2015 12:51 PM EST) Neut Percent 49.8 % [facility] Lymph Percent 36.2 % [facility] [place] Percent 11.4 % [facility] Eos Percent 1.5 % [facility] Baso Percent 1.1 % [facility] Neut# 3.5 1.8 - 7.7 x10(3)/mcL [facility] Lymph# 2.6 0.6 - 4.8 x10(3)/[facility] Yolo# 0.8 0.0 - 1.3 x10(3)/[facility] Eos# 0.1 0.0 - 0.5 x10(3)/[facility] Baso# 0.1 0.0 - 0.2 x10(3)/[facility] Blood specimen (specimen) 06/02/2015 12:51 PM EST 06/02/2015 12:58 PM EST us Ashley Medrano MD HEMATOLOGY ORDERABLES Fin al Result Performing Organization Address [facility] [place] [address] * CBC WITH AUTO DIFF (06/02/2015 12:51 PM EST) WBC 7.1 4.0 - 11.0 x10(3)/[facility] RBC 4.14 3.80 - 5.10 x10(6)/[facility] Hgb 12.7 12.0 - 15.6 gm/dL [facility] Hct 37.9 35.7 - 45.9 % [facility] MCV 91.6 82.5 - 99.8 fL [facility] MCH 30.8 27.0 - 34.3 pg [facility] MCHC 33.6 32.1 - 35.3 gm/dL [facility] RDW 13.2 11.5 - 15.0 % [facility] Platelet 167 144 - 423 x10(3)/mcL [facility] MPV 8.7 6.8 - 10.8 fL [facility] Blood specimen (specimen) UPPER LIMB STRUCTURE / Unknown 06/02/2015 12:51 PM EST 06/02/2015 12:58 PM EST us Ashley Medrano MD HEMATOLOGY ORDERABLES Fin al Result [facility] [address] [place] [address] documented in this encounter Visit Diagnoses Diagnosis Malignant neoplasm of left female breast, unspecified site of breast- Primary Malignant neoplasm of left female breast, unspecified site of breast documented in this encounter Administered Medications Inactive Administered Medications - up to 1 most recent administrations Medication Order MAR Action Action Date Dose Rate Site bupivacaine liposome (PF) (EXPAREL) 266 mg/20 mL (13.3 mg/mL) liposomal suspension Susp ONCE PRN, 1 dose, Starting on Fri06/02/15 at 1434, Until Fri06/02/15 at 1434, Intra-op Given 06/02/2015 2:34 PM EST 20 mL LIDOCAINE 0.5% 25ML- MARCAINE W/EPI 0.25% 25ML-NACL 150ML-OP ONCE PRN, 1 dose, Starting on Fri06/02/15 at 1345, Until Fri06/02/15 at 1345, Intra-op Given 06/02/2015 1:45 PM EST 85 mL documented in this encounter Active and Recently Administered Medications Times are shown in EST. Scheduled Medication Order 06/01/2015 06/02/2015 06/03/2015 ciprofloxacin HCl (CIPRO) tablet 500 mg (CANCELED) 500 mg, Oral, EVERY 12 HOURS SCHEDULED (2 times per day), First dose on Fri06/02/15 at 1745, Until Discontinued, Hold tube feeding 1 hour before/after administration. 1855 (Given - Provider: Celeste Weinberg, CRISTOBAL) 0831 (Given - Provider: Louisa Archer) famotidine (PEPCID) 20 mg/2 mL injection 20 mg (COMPLETED) 20 mg, Intravenous, ONCE PREPROCEDURE, 1 dose, On Dagmar 06/01/15 at 0930, Slow IV push (greater than 2 minutes). To be given in SDS/Pre-op Holding Area Use 10 mL normal saline to dilute and administer famotidine IV, Pre-op (Holding/SDS Meds) 1154 (Given - Provider: Alexia Kim RN) scopolamine (TRANSDERM-SCOP) 1.5 mg (1 mg over 3 days) 1 Patch (CANCELED) 1 Patch, Transdermal, EVERY 72 HOURS, First dose on Fri06/02/15 at 1245, Until Discontinued, Remove old patch at time of administration., Administer over 72 Hours, Pre-op (Holding/SDS Meds) 1255 (Patch Applied - Provider: Kiarra Fletcher RN) vancomycin (VANCOCIN) 1,400 mg in dextrose 5% 275 mL IVPB (COMPLETED) 1,400 mg, Intravenous, ONCE PREPROCEDURE, 1 dose, On Fri06/02/15 at 0645, Administer over 90 Minutes, VESICANT , Pre-op (Antibiotic), Dx: 1. Malignant neoplasm of left female breast, unspecified site of breast 1233 (IV Started - Provider: Kiarra Fletcher RN - Comment: started per call from or)1425 (Given - Provider: Fernanda Carty [facility] Student) 1401 (Stopped - Provider: Louisa Archer) Continuous Medication Order 06/01/2015 06/02/2015 06/03/2015 dextrose 5 % and 0.45 % NaCl infusion (CANCELED) Intravenous, at 100 mL/hr, CONTINUOUS, Starting on Fri06/02/15 at 1745, Until 06/03/15 at 1837 2138 (New Bag - Provider: Chanell Huerta, CRISTOBAL) 0706 (New Bag - Provider: Louisa Archer)0707 (Rate/Dose Verify - Provider: Louisa Archer)1346 (Stopped - Provider: Louisa Archer) dextrose 5 % in lactated ringers infusion (CANCELED) Intravenous, at 75 mL/hr, CONTINUOUS, Starting on 06/02/15 at 1745, Until 06/03/15 at 1837, Post-op 1745 (IV Started by Other - Provider: Celeste Weinberg RN) 1359 (Stopped - Provider: Louisa Archer) PRN Medication Order 06/01/2015 06/02/2015 06/03/2015 bupivacaine liposome (PF) (EXPAREL) 266 mg/20 mL (13.3 mg/mL) liposomal suspension Susp (CANCELED) ONCE PRN, 1 dose, Starting on 06/02/15 at 1434, Until 06/02/15 at 1434, Intra-op 1434 (Given - Provider: Nas Damon MD) fentaNYL (SUBLIMAZE) 50 mcg/mL injection 25 mcg (COMPLETED) 25 mcg, Intravenous, EVERY 5 MIN PRN, 4 doses, Starting on 06/02/15 at 1518, Until 06/02/15 at 1645, Pain, For initial pain. Maximum dose not to exceed 100 mcg., PACU 1623 (Given - Provider: Torie Macias RN)1629 (Given - Provider: Torie Macias, CRISTOBAL)1636 (Given - Provider: Torie Macias, CRISTOBAL)1645 (Given - Provider: Torie Macias, CRISTOBAL) HYDROcodone-acetaminophen (NORCO) 5-325 mg per tablet 2 Tab (CANCELED) 2 Tablet, Oral, EVERY 4 HOURS PRN, Starting on 06/02/15 at 1738, Until 06/03/15 at 1837, Pain, For moderate to severe pain. Maximum adult dose of acetaminophen is 4000 mg from all sources in 24 hours. Patient preference between [place] and Percocet Maximum adult dose of acetaminophen is 4000 mg from all sources in 24 hours. 2137 (Given - Provider: Chanell Huerta RN) lactated ringers infusion (CANCELED) Intravenous, at 100 mL/hr, PREPROCEDURE CONTINUOUS, Starting on Dagmar 06/01/15 at 0921, Until 06/02/15 at 1718, To be given in SDS/Pre-op Holding Area, Pre-op (Holding/SDS Meds) 1136 (New Bag - Provider: Maria L Lozoya RN)1256 (Anesthesia Volume Adjustment - Provider: MULUGETA Rosario Student - Comment: 200ml infused preop)1535 (Anesthesia Volume Adjustment - Provider: MULUGETA Rosario Student) 0600 (Stopped - Provider: Louisa Archer) LIDOCAINE 0.5% 25ML- MARCAINE W/EPI 0.25% 25ML-NACL 150ML-OP (CANCELED) ONCE PRN, 1 dose, Starting on Fri06/02/15 at 1345, Until Fri06/02/15 at 1345, Intra-op 1345 (Given - Provider: Dany Crouch MD) oxyCODONE (ROXICODONE) immediate release tablet 5 mg (CANCELED) 5 mg, Oral, EVERY 4 HOURS PRN, Starting on Fri06/02/15 at 1518, Until Fri06/02/15 at 1718, Pain, Give if patient has received IV acetaminophen (OFIRMEV), PACU 1638 (Given - Provider: Torie Macias RN) documented in this encounter Orders Medications Ordered That Binu ht Not Have Been Administered Count Last Ordered Date First Ordered Date acetaminophen (OFIRMEV) infusion 1,000 mg 3 06/02/2015 ciprofloxacin HCl (CIPRO) tablet 500 mg 1 0 06/02/2015 dextrose 5 % and 0.45 % NaCl infusion 1 12/2015 dextrose 5 % in lactated ringers infusion 1 06/02/2015 diphenhydrAMINE (BENADRYL) injection 25 mg 2 06/02/2015 fentaNYL (SUBLIMAZE) 50 mcg/ mL injection 25 mcg 2 06/02/2015 HYDROcodone-acetaminophen (N ORCO) 5-325 mg per tablet 2 Tab 1 06/02/2015 HYDROmorphone (DILAUDID) injection 0.25 mg 2 06/02/2015 HYDROmorphone (DILAUDID) injection 0.5 mg 1 06/02/2015 HYDROmorphone (DILAUDID) injection 1 mg 1 0 06/02/2015 meperidine (DEMEROL) 25 mg/m L injection (PF) 12.5 mg 2 06/02/2015 ondansetron (ZOFRAN) 4 mg/2 mL injection 4 mg 1 06/02/2015 ondansetron (ZOFRAN) tablet 4 mg 1 06/02/19 16 oxyCODONE (ROXICODONE) immed iate release tablet 5 mg 2 06/02/2015 oxyCODONE-acetaminophen (PER COCET) 5-325 mg per tablet 1-2 Tab 1 06/02/2015 promethazine (PHENERGAN) inj ection 6.25-12.5 mg 2 06/02/2015 scopolamine (TRANSDERM-SCOP) 1.5 mg (1 mg over 3 days) 1 Patch 1 06/02/2015 famotidine (PEPCID) 20 mg/2 mL injection 20 mg 1 06/01/2015 lactated ringers infusion 1 06/01/2015 metoprolol (LOPRESSOR) tablet 25 mg 1 06/01 vancomycin (VANCOCIN) 1,400 mg in dextrose 5% 275 mL IVPB 1 06/01/2015 Lab Orders Without Results Count Last Ordered D ate First Ordered Date PATHOLOGY TISSUE REQUEST 1 06/02/2015 Nursing Count Last Ordered Date First Orde red Date ADMISSION 1 06/02/2015 Transfer Count Last Ordered Date First Orde red Date BED REQUEST 2 06/02/2015 documented in this encounter Care Teams Size Maker Relationship Specialty Start Date End Date Carlos Manuel Barragan [facility] [address] [place] [address] PCP - General 07/03/10 documented as of this encounter
--- OUTSIDE RECORDS SUMMARY | 2024-05-04 22:55 | XMS_ITS | Encounter Summary ---
Author Organization [place] [address] Care Team Providers Care Cooker Helper Name Role Phone Carlos Manuel Barragan Primary Care Provider [phone] Reason for Visit * Reason Onset Date Comments Results 03/20/2015 Encounter Details Date Type Department Care Team (Late st Contact Info) Description 03/20/2015 Telephone [facility] 3[address] Floor [place], [place] [id number] Pita Sethi CGC [address] [facility] [address] [place] [address] Results Social History Tobacco Use Types Packs/Day [...] encounter Miscellaneous Notes * Tele[place] En[place] - [place] [facility] [place] 2:26 PM EDT I contacted Juany Lionel Alarcon to review the results of her genetic testing. The results of her Breast and Ovarian Cancer Panel through [facility] are negative, indicating no genetic mutations weredetected in genes analyzed. This panel includes sequence analysis and/or deletion/duplication analysis of 21 genes, including the following: SHARON, BARD1, BRCA1, BRCA2, BRIP1, CDH1, CHEK2, EPCAM, FANCC, MLH1, MSH2, MSH6, NBN, PALB2, PMS2, PTEN, RAD51C, RAD51D, STK11, TP53 and XRCC2. Negative test results indicate that no variants of clinical or uncertain significance were detectedin any of the genes on this panel, including BRCA1 and BRCA2. The most likely explanation for negative results is that Ms. Briones cancer is not the result of an inherited genetic mutation, but instead, happened by chance. However, negative results do not exclude a genetic basis for her personal and/or family history of cancer. Although this test was designed to rule out the majority of well-knownhereditary cancer predisposition syndromes, it is believed that some genetic mutations in these genes occur in portions of the gene which cannot be tested for at this time. This means some genetic mut ations will not be detected by this test. It is vital that all family members continue to screen for cancer based on the family history, as it is still possible that a genetic cause of breast cancer exists in the family. Specifically, we encourage all females in the family, such as Ms. Briones daught er, to discuss their family history of breast cancer with their physicians and to begin annual mammograms beginning at no later than age 40. We encourage Ms. Alarcon to contact us with any changes to her personal and/or family history of cancer, as this may modify recommendations for genetic testing or cancer screening. We encourage her to contact our office with any questions or concerns. documented in this encounter Plan of Treatment Upcoming Encounters Date Type Department Care Team (Late st Contact Info) Description 05/24/2024 10:30 AM EST Office Visit [facility] [address] [place] [phone] Nikolas Jha DPM [address] [place] [address] [address] [place] [phone] documented as of this encounter Visit Diagnoses Not on filedocumented in this encounter Care Teams Cooker Helper Relationship Specialty Start Date End Date Carlos Manuel Barragan [address] [place] [address] PCP - General 07/03/10 documented as of this encounter
--- OUTSIDE RECORDS SUMMARY | 2024-05-04 22:55 | XMS_ITS | Encounter Summary ---
Author Organization [place] [address] Care Team Providers Care Scrap Worker Name Role Phone Carlos Manuel Barragan Primary Care Provider [phone] Encounter Details Date Type Department Care Team (Latest Contact Info) Description 02/06/2016 3:05 PM EDT - 02/06/2016 11:59 PM EDT Hospital Encounter [facility] [place] [phone] Well woman exam with routine gynecological exam Discharge Disposition: Home or Self Care [...] AM EST Office Visit [facility] [address] [place] [phone] Nikolas Jha DPM [address] [place] [address] [address] [place] [phone] documented as of this encounter Procedures Procedure Name Priority Date/Time Associated Diagnosis Comments [employer] CYTOLOGY REPORT Routine 02/06/2016 3 :06 PM EDT documented in this encounter Results * [employer] CYTOLOGY REPORT (02/06/2016 3:06 PM EDT) [employer] [facility] Cytology Report ? PATIENT NAME:DIAMANTE EDOUARD ? [employer] [facility] Cytology Report ? Accession Number ?Collected Date/Time ? Received Date/Time ? [id number] ? 02/06/16 15:06 EDT ?02/07/16 13:55 EDT ? GY Specimen Source ? Specimen Vag/Cerv/Endocx?: Cerv/Endocerv ? Statement of Adequacy ? Satisfactory for Evaluation. ??Transformation Zone Absent. This is not ? unusual in a post-menopausal woman. ? Diagnosis ? NEGATIVE FOR INTRAEPITHELIAL LESION OR MALIGNANCY. ? Comment ? The Pap Smear is a screening test that aids in the detection of cervical ? cancer and cancer precursors. ??Both false positive and false negative ? results can occur. ??The test should be used at regular intervals, and ? positive results should be confirmed before definitive ? therapy. ? Processed using the Syndiant automated cytology screening device ? ([employer]). ? Mosaic Floor Layer: TS ?02/08/2016 ? Completed by: ??Nicky Shay CT ?(Electronically signed by) ?02/08/2016 ?[facility] 02/06/2016 3:06 PM EDT us Natasha Akers MD PATHOLOGY ORDERAB LES Final Result [facility] [address] [place] [address] documented in this encounter Visit Diagnoses Diagnosis Well woman exam with routine gynecological exam Routine gynecological examination documented in this encounter Orders Lab Orders Without Results Count Last Ordered D ate First Ordered Date [employer] CYTOLOGY REQUEST (PAP ONLY) 1 6 documented in this encounter Care Teams Scrap Worker Relationship Specialty Start Date End Date Carlos Manuel Barragan [address] [facility] [address] [place] [id number] PCP - General 07/03/10 documented as of this encounter
--- OUTSIDE RECORDS SUMMARY | 2024-05-04 22:55 | XMS_ITS | Encounter Summary ---
Author Organization [place] [address] Care Team Providers Care Operating Room Rn Name Role Phone Carlos Manuel Barragan Primary Care Provider [phone] Reason for Visit * Auth/Cert/Inpt Specialty Diagnoses / Procedures Referred By Contac t Referred To Contact Diagnoses Malignant neoplasm of left female breast, unspecified site of breast Malignant neoplasm of left female breast, unspecified site of breast Procedures LEFT BREAST MASTECTOMY Referral ID Status Reason Start Date Expiration Date Visits Re quested Visits Authorized [id number] 1 1 Encounter Details Date Type Department Care Team (Latest Contact Info) Description 06/02/2015 10:56 AM EST - 06/03/2015 2:36 PM [facility] Hospital Encounter EDG 2AO ONCOLOGY [facility] [place] [address] Dany Crouch MD [address] [place] [address] [address] [place] [address] Malignant neoplasm of left female breast, unspecified [...] Crouch MD - 06/12/2015 1:06 PM EST [facility]/[place]/[facility]/[place], [place] NAME: DIAMANTE EDOUARD [facility]#: [id number] LOCATION/ROOM: EDG [id number] FACILITY: ED DICTATOR: Steven Crouch DISCHARGE SUMMARY Page 1 [...] Steven Crouch MD By: jodi Job ID: [id number] DocID: [id number] CC: documented in this encounter Discharge Instructions * Discharge Instructions* Gianni Louisa Laine - 06/03/2015 1:55 PM EST Images from [...] Document Reviewed: 10/14/2012 ExitCare?? Patient Information ??2015 [employer]. This information is not intended to replace [...] 08/03/2012 Document Reviewed: 02/18/2009 ExitCare?? Patient Information ??2014 [employer] [facility]. This information is not intended to replace [...] Crouch MD - 06/13/2015 8:59 PM EST [facility]/[place]/[facility]/[place], [place] NAME: DIAMANTE EDOUARD [facility]#: [id number] LOCATION/ROOM: [place] [address] FACILITY: [facility] DICTATOR: Steven Crouch OPERATIVE REPORT Page [...] dictating the reconstruction. Steven Crouch MD By: sunil Job ID: [id number] Doc ID: [id number] CC: * Dany Crouch MD - 06/02/2015 3:23 PM EST [facility] OPERATIVE/PROCEDURE NOTE Diamante Edouard June 02, 2015 PRE-OP DIAGNOSIS: Malignant neoplasm of left female breast, unspecified site of breast POST-OP DIAGNOSIS: Malignant neoplasm of left female breast, unspecified site of breast PROCEDURE(S): Procedure(s): LEFT BREAST MASTECTOMY BREAST RECONSTRUCTION 1ST STAGE WITH EXPANDERS SURGEON(S): Surgeon(s) and Role: Panel 1: * Dany Crouch MD - Primary Panel 2: * Nas Damon MD - Primary EXERCISE RIDER(S): ANESTHESIA: General SPECIMENS: ID Type Source Tests [...] on the left) SURGEON: Nas Damon MD EXERCISE RIDER: ANESTHESIA: General. INDICATIONS FOR PROCEDURE: Diamante Edouard [...] dermal flap to embrace or wrap the alarm installation technician with, rather than a piece of cadaveric [...] was redraped with sterile towels and a [place] low profile 550 mL low height tissue alarm installation technician was removed from the sterile packaging, devoid [...] suction. No fluid was placed into the alarm installation technician and the wound was then dressed with large Steri-Strips, 4 x 4's, ABD, and tape. At the end of procedure, all sponge, needle and instrument counts were correct and the patient was sent to recovery room in stable condition. Nas Damon MD [facility] [address] [phone] ([place] office) [phone] ([place] office) [phone] (fax) * Nas Damon MD - 06/02/2015 [...] 2: * Nas Damon MD - Primary EXERCISE RIDER: NONE ANESTHESIA: Anesthesiologist: Ashley Medrano MD [facility] VICE PRESIDENT: Deborah Martins CRNA RRNA: Fernanda Carty ARNP STUDENT ANESTHETIC: General IVF: ? mL Crystalloid EBL: 50 mL total SPEC: ID Type Source Tests Collected by Time Destination 1 : left breast suture lateral Dany Crouch MD 06/02/2015 1339 Pathology DRAINS: None STAFF: Inspector [employer]: Esperanza Callahan RN Relief Inspector [employer]: Cheri Sethi RN; Yelitza Jamison RN Scrub Naylor: Sana [place], SUSY Scrub Assist: Johnna Mccoy RN Relief Scrub Assist: Francisco Javier Myrick, RN/SA Preceptor: Meli Lawrence RN LOCATION: EDG MAIN OR OR: EDG OR7 Nas Damon MD [facility] [address] [facility] [address] [phone] ([place] office) [phone] ([place] office) [phone] (fax) documented in this encounter Nursing Notes [...] Progressing Patients pain well controlled with PRN Lapwai, will continue to monitor and support pain [...] 10:30 AM EST Office Visit [facility] [address] [place] [phone] Nikolas Jha DPM [address] [place] [address] [address] [place] [phone] documented as of this encounter Procedures Procedure Name Priority Date/Time Associated Diagnosis Comments SCANNED RHYTHM STRIPS 06/06/2015 5:31 PM EST PATHOLOGY TISSUE REPORT Routine 06/02/2015 1:38 PM EST BREAST RECONSTRUCTION FIRST STAGE WITH INSERTION OF EXPANDERS 06/02/2015 1:00 PM EST Malignant neoplasm of left female breast, unspecified site of breast (HCC) Special Needs ANN CPT; 16450 JENSEN CPT; 30853 [id number] REV; CHG FROM [facility] ADMIT TO SDS PER VALERIA RP 12/11REV TM CH FR 12:30 TO 1:00 PER ANN SD MASTECTOMY MODIFIED RADICAL 06/02/2015 1:00 PM EST Malignant neoplasm of left female breast, unspecified site of breast (HCC) Special Needs ANN CPT; 11241 JENSEN CPT; 17832 [id number] REV; CHG FROM [facility] ADMIT TO SDS PER VALERIA RP 12/11REV TM CH FR 12:30 TO 1:00 PER ANN SD DIFFERENTIAL STAT 06/02/2015 12:51 PM EST CBC [...] Number ?Collected Date/Time ? Received Date/Time ? [id number] ? 06/02/15 13:38 EST ?06/02/15 16:21 EST [...] the Breast (Including ? Previous Biopsy Specimen SP-) ? Invasive Carcinoma of the Breast Invasive Breast 3.2.0.0 ? Specimen Identification ? Procedure: ??Mastectomy ? Lymph Node Sampling: ?? Cisco lymph nodes (based on the previous biopsy ? specimen SP-) ? Specimen Laterality: ?? Left ? Histologic Type of Invasive Carcinoma: ?? Invasive lobular carcinoma ? Tumor Size, Size of Largest Invasive Carcinoma: ? Greatest Dimension: ? 90 mm (10 mm of the 2nd focus) ? Histologic Grade: ?? Matteson Histologic Score: ??Grade 1 ??Score 5 ? [...] 0 ? (based on previous biopsy specimen [facility]35). ? Lymph-Vascular Invasion: ??Not identified ? Pathologic Staging (pTNM) ? m (multiple foci of invasive carcinoma) ? Primary Tumor (Invasive Carcinoma): pT3: Tumor more than 50 mm in greatest ? dimension ? Regional Lymph Nodes: pN0: No regional lymph node metastasis identified ? histologically ??(based on the previous biopsy specimen [facility]35). ? Distant Metastasis (M): ??N/A ? BREAST CANCER BIOMARKER STUDIES ? (performed on previous biopsy -[id number]): ? ER ?? Positive ?97%/3+/8 ? KS ?? Positive ?49%/3+/7 ? HER-2 ignacio by [...] identified within the ? possible axillary tissue. Plan Manager sections are submitted as follows: ? A-B: [...] and the findings corroborate the ? diagnosis. [facility] 06/02/2015 1:38 PM EST us Dany Crouch MD PATHOLOGY ORDERABLES Final Result [facility] [address] [place] [address] * DIFFERENTIAL (06/02/2015 12:51 PM EST) Neut Percent 49.8 % [facility] Lymph Percent 36.2 % [facility] Bacon Percent 11.4 % [facility] Eos Percent 1.5 % [facility] Baso Percent 1.1 % [facility] Neut# 3.5 1.8 - 7.7 x10(3)/[facility] Lymph# 2.6 0.6 - 4.8 x10(3)/[facility] Bacon# 0.8 0.0 - 1.3 x10(3)/[facility] Eos# 0.1 0.0 - 0.5 x10(3)/[facility] Baso# 0.1 0.0 - 0.2 x10(3)/[facility] Blood specimen (specimen) 06/02/2015 12:51 PM EST 06/02/2015 12:58 PM EST Ashley Medrano MD HEMATOLOGY ORDERABLES Fin al Result [facility] [address] [place] [address] * CBC WITH AUTO DIFF (06/02/2015 12:51 PM EST) [facility] WBC 7.1 4.0 - 11.0 x10(3)/[facility] LAB[facility] RBC 4.14 3.80 - 5.10 x10(6)/[facility] Hgb 12.7 12.0 - 15.6 gm/dL [facility] Hct 37.9 35.7 - 45.9 % [facility] MCV 91.6 82.5 - 99.8 fL [facility] MCH 30.8 27.0 - 34.3 pg [facility] MCHC 33.6 32.1 - 35.3 gm/dL [facility] RDW 13.2 11.5 - 15.0 % [facility] Platelet 167 144 - 423 x10(3)/[facility] LAB[facility] MPV 8.7 6.8 - 10.8 fL [facility] Blood specimen (specimen) UPPER LIMB STRUCTURE / Unknown 06/02/2015 12:51 PM EST 06/02/2015 12:58 PM EST Ashley Medrano MD HEMATOLOGY ORDERABLES Fin al Result [facility] [address] [place] [address] documented in this encounter Visit Diagnoses Diagnosis Malignant neoplasm of left female breast, unspecified site of breast- Primary documented in this encounter Administered Medications Inactive Administered Medications - up to 1 most recent administrations Medication Order MAR Action Action Date Dose Rate Site ciprofloxacin HCl (CIPRO) tablet 500 mg 500 mg, Oral, EVERY 12 HOURS SCHEDULED (2 times per day), First dose on Fri06/02/15 at 1745, Until Discontinued, Hold tube feeding 1 hour before/after administration. Given 06/03/2015 8:31 AM EST 500 mg dextrose 5 % and 0.45 % NaCl infusion Intravenous, at 100 mL/hr, CONTINUOUS, Starting on Fri06/02/15 at 1745, Until 06/03/15 at 1837 Rate/Dose Verify 06/03/2015 7:07 AM EST 100 mL/hr dextrose 5 % in lactated ringers infusion Intravenous, at 75 mL/hr, CONTINUOUS, Starting on Fri06/02/15 at 1745, Until 06/03/15 at 1837, Post-op IV Started by Other 06/02/2015 5:45 PM EST 75 mL/hr famotidine (PEPCID) 20 mg/2 mL injection 20 mg 20 mg, Intravenous, ONCE PREPROCEDURE, 1 dose, On Dagmar 06/01/15 at 0930, Slow IV push (greater than 2 minutes). To be given in SDS/Pre-op Holding Area Use 10 mL normal saline to dilute and administer famotidine IV, Pre-op (Holding/SDS Meds) Given 06/02/2015 11:54 AM EST 20 mg fentaNYL (SUBLIMAZE) 50 mcg/mL injection 25 mcg 25 mcg, Intravenous, EVERY 5 MIN PRN, 4 doses, Starting on Fri06/02/15 at 1518, Until Fri06/02/15 at 1645, Pain, For initial pain. Maximum dose not to exceed 100 mcg., PACU Given 06/02/2015 4:45 PM EST 25 mcg HYDROcodone-acetaminophen (NORCO) 5-325 mg per tablet 2 Tab 2 Tablet, Oral, EVERY 4 HOURS PRN, Starting on Fri06/02/15 at 1738, Until 06/03/15 at 1837, Pain, For moderate to severe pain. Maximum adult dose of acetaminophen is 4000 mg from all sources in 24 hours. Patient preference between Lapwai and Percocet Maximum adult dose of acetaminophen is 4000 mg from all sources in 24 hours. Given 06/02/2015 9:37 PM EST 2 Tablets lactated ringers infusion Intravenous, at 100 mL/hr, PREPROCEDURE CONTINUOUS, Starting on Dagmar 06/01/15 at 0921, Until Fri06/02/15 at 1718, To be given in SDS/Pre-op Holding Area, Pre-op (Holding/SDS Meds) New Bag 06/02/2015 11:36 AM EST 100 mL/hr oxyCODONE (ROXICODONE) immediate release tablet 5 mg 5 mg, Oral, EVERY 4 HOURS PRN, Starting on Fri06/02/15 at 1518, Until Fri06/02/15 at 1718, Pain, Give if patient has received IV acetaminophen (OFIRMEV), PACU Given 06/02/2015 4:38 PM EST 5 mg scopolamine (TRANSDERM-SCOP) 1.5 mg (1 mg over 3 days) 1 Patch 1 Patch, Transdermal, EVERY 72 HOURS, First dose on Fri06/02/15 at 1245, Until Discontinued, Remove old patch at time of administration., Administer over 72 Hours, Pre-op (Holding/SDS Meds) Patch Applied 06/02/2015 12:55 PM EST 1 Patch vancomycin (VANCOCIN) 1,400 mg in dextrose 5% 275 mL IVPB 1,400 mg, Intravenous, ONCE PREPROCEDURE, 1 dose, On Fri06/02/15 at 0645, Administer over 90 Minutes, VESICANT , Pre-op (Antibiotic), Dx: 1. Malignant neoplasm of left female breast, unspecified site of breastIndications:Maligna nt neoplasm of left female breast, unspecified site of breast Given 06/02/2015 2:25 PM EST 1,400 mg documented in this encounter Active and Recently Administered Medications Times are shown in EST. Scheduled Medication Order 06/01/2015 06/02/2015 06/03/2015 ciprofloxacin HCl (CIPRO) tablet 500 mg (CANCELED) 500 mg, Oral, EVERY 12 HOURS SCHEDULED (2 times per day), First dose on Fri06/02/15 at 1745, Until Discontinued, Hold tube feeding 1 hour before/after administration. 1855 (Given - Provider: Celeste Weinberg RN) 0831 (Given - Provider: Louisa Archer) famotidine [...] per call from or)1425 (Given - Provider: MULUGETA Rosario Student) 1401 (Stopped - Provider: Louisa Archer) Continuous Medication Order 06/01/2015 06/02/2015 06/03/2015 dextrose 5 % and 0.45 % NaCl infusion (CANCELED) Intravenous, at 100 mL/hr, CONTINUOUS, Starting on Fri06/02/15 at 1745, Until 06/03/15 at 1837 2138 (New Bag - Provider: Chanell Huerta RN) 0706 (New Bag - Provider: Louisa Archer)0707 (Rate/Dose Verify - Provider: Louisa Archer)1346 (Stopped - Provider: Louisa Archer) dextrose 5 % in lactated ringers infusion (CANCELED) Intravenous, at 75 mL/hr, CONTINUOUS, Starting on 06/02/15 at 1745, Until 06/03/15 at 1837, Post-op 1745 (IV Started by Other - Provider: Celeste Weinberg, CRISTOBAL) 1359 (Stopped - Provider: Louisa Archer) PRN [...] mcg., PACU 1623 (Given - Provider: Torie Macias, CRISTOBAL)1629 (Given - Provider: Torie Macias, CRISTOBAL)1636 (Given - Provider: Torie Macias RN)1645 (Given - Provider: Torie Macias, CRISTOBAL) HYDROcodone-acetaminophen (NORCO) 5-325 mg per tablet 2 Tab (CANCELED) 2 Tablet, Oral, EVERY 4 HOURS PRN, Starting on 06/02/15 at 1738, Until 06/03/15 at 1837, Pain, For moderate to severe pain. Maximum adult dose of acetaminophen is 4000 mg from all sources in 24 hours. Patient preference between Lapwai and Percocet Maximum adult dose of acetaminophen [...] acetaminophen (OFIRMEV) infusion 1,000 mg 3 06/02/2015 bupivacaine liposome (PF) (E XPAREL) 266 mg/20 mL (13.3 mg/mL) liposomal suspension Susp 1 06/02/2015 diphenhydrAMINE (BENADRYL) injection 25 mg 2 06/02/2015 fentaNYL (SUBLIMAZE) 50 mcg/ mL injection 25 mcg 1 06/02/2015 HYDROmorphone (DILAUDID) injection 0.25 mg 2 06/02/2015 HYDROmorphone (DILAUDID) injection 0.5 mg 1 06/02/2015 HYDROmorphone (DILAUDID) injection 1 mg 1 0 06/02/2015 LIDOCAINE 0.5% 25ML- MARCAIN E W/EPI 0.25% 25ML-NACL 150ML-OP 1 06/02/2015 meperidine (DEMEROL) 25 mg/m L injection (PF) 12.5 mg 2 06/02/2015 ondansetron (ZOFRAN) 4 mg/2 mL injection 4 mg 1 06/02/2015 ondansetron (ZOFRAN) tablet 4 mg 1 06/02/19 16 oxyCODONE (ROXICODONE) immed iate release tablet 5 mg 1 06/02/2015 oxyCODONE-acetaminophen (PER COCET) 5-325 mg per tablet 1-2 Tab 1 06/02/2015 promethazine (PHENERGAN) inj ection 6.25-12.5 mg 2 06/02/2015 metoprolol (LOPRESSOR) tablet 25 mg 1 06/01 Lab Orders Without Results Count Last Ordered D ate First Ordered Date PATHOLOGY TISSUE REQUEST 1 06/02/2015 Nursing Count Last Ordered Date First Orde red Date ADMISSION 1 06/02/2015 Transfer Count Last Ordered Date First Orde red Date BED REQUEST 2 06/02/2015 documented in this encounter Care Teams Operating Room Rn Relationship Specialty Start Date End Date Carlos Manuel Barragan [facility] [address] [place] [address] PCP - General 07/03/10 documented as of this encounter
--- OUTSIDE RECORDS SUMMARY | 2024-05-04 22:55 | XMS_ITS | Encounter Summary ---
Author Organization [facility] [address] Care Team Providers Care Foot Specialist Name Role Phone Carlos Manuel Barragan Primary Care Provider [phone] Reason for Visit * Auth/Cert/Inpt Specialty Diagnoses / Procedures Referred By Contac t Referred To Contact Diagnoses Malignant neoplasm of left female breast, unspecified site of breast Malignant neoplasm of left female breast, unspecified site of breast Procedures LEFT BREAST MASTECTOMY Referral ID Status Reason Start Date Expiration Date Visits Re quested Visits Authorized [id number] 1 1 Encounter Details Date Type Department Care Team (Latest Contact Info) Description 05/24/2015 9:50 AM EST - 05/24/2015 11:09 AM EST Hospital Encounter EDG PRE-ADMIT TESTING [facility] [address] [place] [phone], Edg Pat Nurse Discharge Disposition: Home or Self Care Anesthesia Record Procedure Summary Procedure Name Responsible Anesthesiologist Anesthesia Start Time Anesthesia Stop Time MASTECTOMY MODIFIED RADICAL (Left) Ashley Medrano MD 06/02/15 1256 06/02/15 1544 Events Date Time Event Comment 06/02/2015 1232 AN Equip Check 1256 An Start 1301 An Start Data 1305 Immediate Pre Anesthetic Ass es 1306 An Induction 1308 An Intubation 1312 Anesthesia Ready 1318 Time out 1320 Incision [address] Willa rojas procedure. [address] Damon start procedure. 1348 Time out 1353 1534 An Extubation Awake extubati on, small amount of clear oral secretions suctioned, spontaneous ventilations with 2L NC 1535 an stop data 1544 Handoff I completed my SBAR handoff to the receiving nurse which have included the followin. Identification of the patient, family, or patient surrogate 2. Identification of the responsible practitioner 3. Pertinent medical history 4. Surgical procedure and reason for procedure 5. Intraoperative anesthetic management 6. Expectations/Plans for the early post-procedure period 7. Opportunity for questions and acknowledgement of understanding from the receiving PACU/ICU software team leader 1544 An Stop Meds * Agents No agents on file. * Blood No blood administrations on file. Lines, Drains, and Airways Type Details Placement Removal Peripheral IV 06/02/15; 1136; 20; Right; Wrist; kimmie rn; 2 (unsuccessful attempt,angio intact,drsgGeneapplied); None; 06/03/15; 1358; Therapy completed, No complications; Catheter intact; No 06/02/15 1136 by Maria L Lozoya RN 06/03/15 1358 by Louisa Archer APRN Airway Device: ETT- Cuffed (with stylet); Size: 7 mm; Placement Date: 06/02/15; Placement Time: 1308; Removal Date: 06/02/15; Removal Time: 1534 06/02/15 1308 by Fernanda Carty ARNP Student 06/02/15 1534 by Fernanda Carty ARNP Student Incision/Procedural Site Breast; Left; 06/03/15; 1837 06/02/15 1320 by 06/03/15 1837 by Discharge Provider, Automatic Closed/Suction Drain Left; Breast 06/02/15 1501 by 02/08 1837 by Discharge Provider, Automatic documented in this [...] Sign Reading Time Taken Comments Blood Pressure 137/81 05/24/2015 10:24 AM EST Pulse 66 05/24/2015 10:24 AM EST Temperature 36.3 ??C (97.3 ??F) 05/24/2015 10:[address] Respiratory Rate 18 05/24/2015 10:24 AM EST Oxygen Saturation 96% 05/24/2015 10:24 AM EST Inhaled Oxygen Concentration - - Weight 91.7 kg (202 lb 2 oz) 05/24/2015 10:24 AM EST Height 167.6 cm (5' 6 ) 05/24/2015 10:24 AM EST Body Mass Index 32.62 05/24/2015 10:24 AM EST documented in this encounter Discharge Instructions * Discharge Instructions* Neha Hurst RN - 05/24/2015 10:57 AM EST Pre-Op Instructions Date of Surgery 06/02/15 1. Do not eat any food or drink anything after midnight. This includes chewing gum, mints, candy, chewing tobacco and dip. Water only 4 hrs prior to surgery start time unless instructed by surgeon. 2. You may brush your teeth and gargle the morning of surgery. Do not swallow water. 3. Take the following pills with a small sip of water on the morning of surgery: ziac 4. Aspirin, Coumadin, Ibuprofen, Plavix, Fish Oil, Vitamin E, any Supplements and Anti-Inflammatoryproducts may be stopped as directed by your physician. 5. Stop or reduce smoking for 24 hours prior to surgery. No beer, wine or alcohol 24 hours prior tosurgery. 6. You MUST make arrangements for your PARTNER IN CARE or another designated adult (18 years or older) to take you home after surgery. You will not be allowed to be left home alone or drive yourself home. It is required that your PARTNER IN CARE or designated adult stay with you the first 24 hours after your procedure. 7. A parent must accompany a child scheduled for surgery and plan to stay at the hospital until thechild is discharged. If your takes a special type of nipple or baby bottle, please bring that with you. If your child has a favorite security item such as a blanket or a special toy, please feel free to bring that with you. 8. Please do not bring children with you to the hospital. 9. Please wear simple, loose fitting clothing to the hospital. Do not bring valuables (money, credit cards, check books, etc.) or wear any jewelry on day of surgery. Remove all body piercings prior to arrival. All jewelry must be removed to avoid injury. We will not tape wedding rings/bands. 10. If you have dentures, they may be removed before going to the OR, we will provide a container for them. If you wear contact lenses or glasses, they will be removed; please bring a case for them. 11. Do not remove hearing aids, you will wear them to surgery. 12. Please shower morning of surgery or night before. Do not wear any makeup (including no eye makeup) lotion, powder, or deodorant. Nail vatican citizen must be removed if v[place] citizen is on operative extremity. Please do not shave operative extremity or near the operative extremity. 13. If you have a Living Will and Durable Power of Physician/Ophthalmologist for Healthcare, please bring a copy. 14. Notify your Surgeon if you develop any illness between now and surgery time, cough, cold, fever, sore throat, nausea, vomiting, etc. 15. If you receive a blood bracelet remember to bring it with you on the day of surgery. 16. If your insurance coverage requires a co-payment or deductible, please bring the payment with you. We accept Visa, MasterCard, [email or web address] and [employer] credit cards. Our Customer Service Representatives will be available by telephone for any questions regarding financial issues at [phone]. 17. Other . 18. If you wear CPAP or BIPAP, please bring your mask and the machine settings (not the actual machine) with you to the hospital on the day of your procedure. The hospital will supply a machine to use during your hospital stay. 19. If you wear oxygen, please bring it with you to use during your travel to and from the hospital. Following your admission, the hospital will supply oxygen for your use. I acknowledge receipt of the instructions indicated above. If you have any questions please call the: [facility] at [phone]; [place] SDS: Patient Entrance 3A, take [place] elevator to 2nd floor documented in this [...] or Self Care documented in this encounter Nursing Notes * Susan Patel - 05/24/2015 11:10 AM EST Left message for mayra at dr. curry office for clearance Dr. Karl lai scanned into [facility] and put on chart and per mayra at dr. curry office patient was not sent to dr. foley for clearance per dr. mays documented in this encounter Plan of Treatment Upcoming Encounters Date Type Department Care Team (Late st Contact Info) Description 05/24/2024 10:30 AM EST Office Visit [facility] [address] [place] [phone] Nikolas Jha [address] [place] [phone] documented as of this encounter Visit Diagnoses Not on filedocumented in this encounter Discontinued Medications Medication Sig Discontinue Reason Start Date End Da te lactobacillus rhamnosus, GG, (CULTURELLE) 10 billion cell Oral Capsule Take 1 Cap by mouth daily. DELETE-Therapy completed 05/24/2015 documented as of this encounter Historical Medications * This list may reflect changes made after this encounter. Cholecalciferol, Vitamin D3, 2,000 unit Oral Capsule Take by mouth daily. added in this encounter Care Teams Foot Specialist Relationship Specialty Start Date End Date Carlos Manuel Barragan [address] [facility] [address] [place] [address] PCP - General 07/03/10 documented as of this encounter
--- OUTSIDE RECORDS SUMMARY | 2024-05-04 22:55 | XMS_ITS | Encounter Summary ---
Author Organization [place] [address] Care Team Providers Care Windows Systems Administrator Name Role Phone Carlos Manuel Barragan Primary Care Provider [phone] Reason for Visit * Reason Comments Follow-up Encounter Details Date Type Department Care Team (Latest Contact Info) Description 07/24/2016 10:11 AM EST - 07/24/2016 11:59 PM EST Hospital Encounter [facility] Women's [facility] [place] [address] Dany Crouch MD [address] [place] [address] [place] [address] Malignant neoplasm of left female breast, unspecified site of breast (Primary Dx) Discharge Disposition: Home or Self [...] Sign Reading Time Taken Comments Blood Pressure 130/81 07/24/2016 10:21 AM EST Pulse 69 07/24/2016 10:21 AM EST Temperature 37 ??C (98.6 ??F) 07/24/2016 10:21 AM EST Respiratory Rate 18 07/24/2016 10:21 AM EST Oxygen Saturation - - Inhaled Oxygen Concentration - - Weight 89.8 kg (198 lb) 07/24/2016 10:21 AM EST Height 167.6 cm (5' 6 ) 07/24/2016 10:21 AM EST Body Mass Index 31.96 07/24/2016 10:21 AM EST documented in this encounter Functional [...] every evening. documented as of this encounter Ordered Prescriptions Prescription Sig Dispense Quantity Refills Last Filled Start Date End Date anastrozole (ARIMIDEX) 1 mg Oral TabletIndications:M alignant neoplasm of left female breast, unspecified site of breast Take 1 Tab by mouth daily. 90 Tab 3 07/24/2016 09/29/2018 documented in this encounter Discharge Disposition Disposition Code Departure Means Destination Home or Self Care documented in this encounter Progress Notes * Corry Frazier RN - 07/24/2016 10:11 AM EST Juany is seen today for a f/u. 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 Left mastectomy/reconstruction. Pttakes Arimidex and vitamin D daily w/out difficulty. Right m/m 05/17/16 normal, reviewed per Dr Crouch. CBE and chest wall exam per Dr Crouch, normal. DEXA reviewed, normal range. P: knowledge deficit r/t breast health surveillance G: educate pt I: Discussed signs/symptoms to watch for and report post breast cancer. Discussed continuing monthly self breast exam, written material proivided. Discussed taking Arimidex and vitamin D daily. Right screening m/m due after 05/17/17. Pt to schedule. Return in 1 year. Scheduled * Dany Crouch MD - 07/24/2016 10:11 AM EST Images from the original note were not included. Subjective: Ms. Alarcon is here for a scheduled routine follow-up visit History of Present Illness The patient is a 66 y.o. female who presents with a complaint of annual breast follow up HPI Pt states she is on C Pap. She is taking Arimidex daily. No new hospitalizations or ER visits. No other family members with breast, ovarian, prostate, pancreatic or melanoma cancer. Pt had basal cell ca removed by derm. ~ MM MAMMO DIGITAL DIAG CAD RIGHT 05/17/16 CC and MLO view(s) were taken of the right breast. There are scattered fibroglandular densities. No focal mass. No suspicious calcifications. Compared to prior studies the most recent being 08-28-15 ~ IMPRESSION: Negative ([id number]) ~ RECOMMENDATION: Routine screening mammogram of the right breast in 1 year. Past Medical History: Diagnosis [...] Location: [facility]; Service: Plastics ??? BREAST REDUCTION SURGERY Right 11/16/2015 Surgeon: Flaco Damon MD; Location: [facility]; Service: Plastics ??? BREAST SURGERY Left 06/02/2015 BREAST RECONSTRUCTION 1ST STAGE WITH EXPANDERS ; Surgeon: Flaco Damon MD; Location: [facility] OR; Service: General ??? CHOLECYSTECTOMY [...] ??? Not on file Social History Narrative Current Outpatient Prescriptions Medication [...] Capsule Take 1,000 Units by mouth daily. ??? anastrozole (ARIMIDEX) 1 mg Oral Tablet Take 1 Tab by mouth daily. 90 Tab 3 ??? FOLIC ACID/MULTIVIT-MIN/LUTEIN (CENTRUM SILVER ORAL) Take by mouth. Reported on 07/24/2016 ??? PARoxetine (PAXIL) 10 mg Oral Tablet Take 1 Tab by mouth daily. (Patient not taking: Reported on 07/24/2016) 30 Tab 2 No current facility-administered medications for this encounter. Allergies Allergen Reactions ??? Morphine confusion ??? Penicillins Rash Review of Systems All other systems reviewed and are negative. Objective: Vitals: 07/24/16 1021 BP: 130/81 Pulse: 69 Resp: 18 Temp: 98.6 ??F (37 ??C) TempSrc: Oral Weight: 198 lb (89.8 kg) Height: 5' 6 (1.676 m) Body mass index is 31.96 kg/(m^2). Physical Exam Constitutional: She is oriented to person, place, and time. She appears well- developed and well-nourished. HENT: Head: Atraumatic. Neck: Neck supple. No thyroid mass present. Cardiovascular: Normal rate and normal heart sounds. Pulmonary/Chest: Breath sounds normal. Right breast exhibits no inverted nipple, no mass, no nippledischarge, no skin change and no tenderness. S/p 03/03/15 Left breast core and SLND S/p 06/02/15 Left Mastectomy S/p 11/16/15 Right breast reduction with Dr. Damon Negative right breast exam and negative left chest exam Abdominal: Bowel sounds are normal. She exhibits no mass. There is no tenderness. Genitourinary: No breast swelling, tenderness, discharge or bleeding. Musculoskeletal: Normal range of motion. She exhibits no edema or tenderness. Lymphadenopathy: Right axillary: No lateral adenopathy present. Left axillary: No lateral adenopathy present. Neurological: She is oriented to person, place, and time. Skin: Skin is warm and dry. No rash noted. Psychiatric: She has a normal mood and affect. Her behavior is normal. Judgment and thought contentnormal. Nursing note and vitals reviewed. Assessment and Plan: FARIDA by imaging and exam. Continue with Arimidex daily Dexa scan reviewed and normal. M/g in April ordered Return in 1 year Arimidex refills escribed to [facility] Note written by PRASANNA Reeves, acting as scribe for Yamel Crouch MD. Juany was seen today for follow-up. Diagnoses and all orders for this visit: Malignant neoplasm of left female breast, unspecified site of breast - anastrozole (ARIMIDEX) 1 mg Oral Tablet; Take 1 Tab by mouth daily. ???I have reviewed this note and it accurately reflects my work and decisions made during this visit.?? Dany Crouch MD documented in this encounter Miscellaneous Notes * Patient Instructions - Corry Frazier RN - 07/24/2016 10:11 AM EST Images from the original note were not included. Today's exam is normal. Previous mammogram and DEXA scan are normal. Continue taking Arimidex daily. It is recommended that you take Vitamin D3; there are new findings that associate low Vitamin D levels to breast cancer and lung cancer and colon cancer ; The usual over the counter dosage is 8124-9973 units daily. * 1000 units in the Summer and * 2000 units in the Winter Signs and symptoms to watch for following breast cancer include: 1)unusual and persistant shortnessof breath that has no explanation 2) unusual persistant bone/back pain that has no explanation, continues to worsen over a period of time, and is capable of waking you up at night 3)breast lumps or nipple discharge. 4) persistent, progressive headaches Don't forget to continue monthly Self Breast Exam and Chest Wall Exam Report new lumps that feel like a hard rock or pebble. You are due for a right screening mammogram after 05/17/17. You will receive a reminder postcard to call and schedule this. Return in 1 year. Breast Self-Awareness Breast self-awareness allows you to [...] all your clothes above your waist. 2. drafter marine front of a mirror in a room with good lighting. 3. Put your hands on your hips and push your hands downward. Feel your breasts. 1. Lie flat on your back or shot grinder operator the shower or tub. If you are [...] 10/28/2008 Document Revised: 04/28/2013 Document Reviewed: 08/26/2012 [employer] Patient Education ??2016 [employer]. documented in this encounter Plan of Treatment Upcoming Encounters Date Type Department Care Team (Late st Contact Info) Description 05/24/2024 10:30 AM EST Office Visit [facility] [address] [place] [phone] Nikolas Jha DPM [address] [place] [address] [place] [phone] documented as of this encounter Visit Diagnoses Diagnosis Malignant neoplasm of left female breast, unspecified site of breast- Primary documented in this encounter Care Teams Windows Systems Administrator Relationship Specialty Start Date End Date Carlos Manuel Barragan [address] [facility] [address] [place] [address] PCP - General 07/03/10 documented as of this encounter
--- OUTSIDE RECORDS SUMMARY | 2024-05-04 22:55 | XMS_ITS | Encounter Summary ---
Author Organization [place] [address] Care Team Providers Care Potato Chip Sorter Name Role Phone Carlos Manuel Barragan Primary Care Provider Reason for Visit * Auth/Cert/Inpt Specialty Diagnoses / Procedures Referred By Contac t Referred To Contact Diagnoses Malignant neoplasm of left female breast, unspecified site of breast Malignant neoplasm of left female breast, unspecified site of breast Procedures LEFT BREAST MASTECTOMY Referral ID Status Reason Start Date Expiration Date Visits Re quested Visits Authorized [id number] 1 1 Encounter Details Date Type Department Care Team (Late st Contact Info) Description 06/02/2015 12:56 PM EST Anesthesia Event EDG PERIOP [facility] [place] [address] Ashley Medrano MD [address] [place] [address] [address] [place] [id number] Fernanda Carty ARNP Student Anesthesia Record Procedure Summary Procedure Name Responsible [...] Willa rojas procedure. [address] Marisol frausto procedure. 1348 Time out 1353 1534 An [...] acknowledgement of understanding from the receiving PACU/ICU wall steamer 1544 An Stop Meds Name Total midazolam (VERSED) injection 1 mg/mL 2 m g lidocaine injection 1% 50 mg propofol (DIPRIVAN) injection 200 mg fentaNYL 50 MCG/ML INJ 150 mcg HYDROmorphone (DILAUDID) injection 1 mg/ ml 1 mg ondansetron (ZOFRAN) injection 4 mg /2 m L 4 mg dexamethasone (DECADRON) injection 4 mg/ mL 8 mg acetaminophen (OFIRMEV)1000 mg/100 mL in fusion 1,000 mg succinylcholine (ANECTINE) 20 mg/mL inje ction 140 mg rocuronium (ZEMURON) 10 mg/mL injection 5 mg cisatracurium (NIMBEX) injection 2mg/ml 6 mg vancomycin (VANCOCIN) 1,400 mg in dextro se 5% 275 mL IVPB 1,400 mg lactated ringers infusion 600 mL * Agents Name O2 Air Et Desflurane * Blood No blood administrations on file. Lines, Drains, and Airways Type Details Placement Removal Peripheral IV 06/02/15; 1136; 20; Right; Wrist; kimmie barba; 2 (unsuccessful attempt,angio intact,drsg.applied); None; 06/03/15; 1358; Therapy completed, No complications; [...] OR Notes * Anesthesia Postprocedure Evaluation - Mike Redmond MD - 06/02/2015 5:33 PM EST Post-Anesthesia Evaluation Note Patient Name: Juany Alarcon Patient Date: June 02, 2015 Patient Location: PACU Post OP Vitals: stable Level of Consciousness: awake and sedated Post Anesthesia Pain: adequate analgesia Airway Patency: patent Respiratory: nasal canula Cardiovascular: stable Hydration: euvolemic Nausea Controlled: yes * Anesthesia Preprocedure Evaluation - Ashley Medrano MD - 05/24/2015 12:59 PM EST Pre-Anesthesia Evaluation Note Patient Name: Juany Alarcon Sex: female Patient : 1950 Age: 65 y.o. Patient Date: May 24, 2015 Procedure: LEFT BREAST MASTECTOMY LEFT BREAST RECONSTRUCTION WITH TISSUE MEDICATION NURSE AUTOGENOUS DEEPITHELIALIZED FLAP Anesthesia Evaluation Patient summary reviewed, Nursing notes reviewed and Previous anesthesia History of anesthetic complications: PONV Airway Mallampati: III TM distance: >3 FB Neck ROM: fullNo increased risk of difficult airway Dental - normal exam Pulmonary breath sounds clear to auscultation (+)sleep apnea on CPAP, (-) smoker Cardiovascular (+) hypertension (well controlled), , Rhythm: regular Rate: normal Neuro/Psych GI/Hepatic/Renal Endo/Other (+) arthritis, anemia, Comments: Breast cancer Current Other findings: CMP pending 03/03/15 EKG SB, low voltage precordial leads Anesthesia Plan ASA 3 Anesthesia Plan: general Intravenous induction Monitors: STD Anesthetic plan and risks discussed with patient. Use of blood products discussed with patient whom consented to blood products. documented in this encounter Plan of Treatment Upcoming Encounters Date Type Department Care Team (Late st Contact Info) Description 05/24/2024 10:30 AM EST Office Visit [facility] [address] [place] [phone] [address] Jha [address] [place] [address] documented as of this encounter Visit Diagnoses Not on filedocumented in this encounter Administered Medications Inactive Administered Medications - up to 1 most recent administrations Medication Order MAR Action Action Date Dose Rate Site acetaminophen (OFIRMEV) infusion Intravenous, PRN, Starting on Fri06/02/15 at 1320, Until Fri06/02/15 at 1544, Administer over 15 Minutes, Anesthesia Intra-op Given 06/02/2015 1:20 PM EST 1,000 mg cisatracurium (NIMBEX) injection PRN, Starting on Fri06/02/15 at 1317, Until Fri06/02/15 at 1544, Anesthesia Intra-op Given 06/02/2015 1:17 PM EST 6 mg dexamethasone (DECADRON) injection Intravenous, PRN, Starting on Fri06/02/15 at 1328, Until Fri06/02/15 at 1544, Anesthesia Intra-op Given 06/02/2015 1:28 PM EST 8 mg fentaNYL (SUBLIMAZE) 50 mcg/mL injection Intravenous, PRN, Starting on Fri06/02/15 at 1306, Until Fri06/02/15 at 1544, Anesthesia Intra-op Given 06/02/2015 3:18 PM EST 50 mcg HYDROmorphone (DILAUDID) injection Intravenous, PRN, Starting on Fri06/02/15 at 1320, Until Fri06/02/15 at 1544, Anesthesia Intra-op Given 06/02/2015 1:20 PM EST 1 mg lidocaine 1% 10 mg/mL (1 %) injection Intravenous, PRN, Starting on Fri06/02/15 at 1306, Until Fri06/02/15 at 1544, Anesthesia Intra-op Given 06/02/2015 1:06 PM EST 50 mg midazolam (VERSED) injection Intravenous, PRN, Starting on Fri06/02/15 at 1256, Until Fri06/02/15 at 1544, Anesthesia Intra-op Given 06/02/2015 12:56 PM EST 2 mg ondansetron (ZOFRAN) 4 mg/2 mL injection Intravenous, PRN, Starting on Fri06/02/15 at 1457, Until Fri06/02/15 at 1544, Nausea, Anesthesia Intra-op Given 06/02/2015 2:57 PM EST 4 mg propofol (DIPRIVAN) injection Intravenous, PRN, Starting on Fri06/02/15 at 1306, Until Fri06/02/15 at 1544, Anesthesia Intra-op Given 06/02/2015 1:10 PM EST 40 mg rocuronium (ZEMURON) injection PRN, Starting on Fri06/02/15 at 1306, Until Fri06/02/15 at 1544, Anesthesia Intra-op Given 06/02/2015 1:06 PM EST 5 mg succinylcholine (ANECTINE) injection PRN, Starting on Fri06/02/15 at 1307, Until Fri06/02/15 at 1544, Anesthesia Intra-op Given 06/02/2015 1:07 PM EST 140 mg vancomycin (VANCOCIN) 1,400 mg in dextrose 5% 275 mL IVPB 1,400 mg, Intravenous, ONCE PREPROCEDURE, 1 dose, On Fri06/02/15 at 0645, Administer over 90 Minutes, VESICANT , Pre-op (Antibiotic), Dx: 1. Malignant neoplasm of left female breast, unspecified site of breastIndications:Malignant neoplasm of left female breast, unspecified site of breast Given 06/02/2015 2:25 PM EST 1,400 mg documented in this encounter Orders Medications Ordered That Binu ht Not Have Been Administered Count Last Ordered Date First Ordered Date succinylcholine (ANECTINE) injection 1 12/2015 documented in this encounter Care Teams Potato Chip Sorter Relationship Specialty Start Date End Date Carlos Manuel Barragan [address] [place] [address] [address] [place] [id number] PCP - General 07/03/10 documented as of this encounter
--- OUTSIDE RECORDS SUMMARY | 2024-05-04 22:55 | XMS_ITS | Encounter Summary ---
Author Organization [place] [address] Care Team Providers Care Hat Trimmer Name Role Phone Carlos Manuel Barragan Primary Care Provider [phone] Encounter Details Date Type Department Care Team (Late st Contact Info) Description 04/12/[address] [facility] [place] [address] Olesya Aiken RN Social History Tobacco Use Types Packs/Day [...] encounter Miscellaneous Notes * Telephone Encounter - Olesya Aiken RN - 04/12/2015 10:[address] Crouch reviewed case with oncotype score of 16. Offered to start arimidex prior to May surgery. Pt contacted agreeable to start, [facility] will send script to [facility]. Questions answered regarding side effects and pre op questions. documented in this encounter Plan of Treatment Upcoming Encounters Date Type Department Care Team (Late st Contact Info) Description 05/24/2024 10:30 AM EST Office Visit [facility] [place] [address] [place] [address] Nikolas Jha, DPM [address] [place] [address] documented as of this encounter Visit Diagnoses Not on filedocumented in this encounter Care Teams Hat Trimmer Relationship Specialty Start Date End Date Carlos Manuel Barragan [address] [facility] [address] [place] [address] PCP - General 07/03/10 documented as of this encounter
--- OUTSIDE RECORDS SUMMARY | 2024-05-04 22:55 | XMS_ITS | Encounter Summary ---
Author Organization [place] [address] Care Team Providers Care Military Professional Name Role Phone Carlos Manuel Barragan Primary Care Provider [phone] Reason for Visit * Auth/Cert/Inpt Specialty Diagnoses / Procedures Referred By Contac t Referred To Contact Diagnoses HX: breast cancer History of left mastectomy Disproportion of reconstructed breast HX: breast cancer History of left mastectomy Disproportion of reconstructed breast Procedures NM REPLACE TISSUE MEDIA SALES CONSULTANT NM DELAY BREAST PROS AFTER BREAST SURG NM REDUCTION OF LARGE BREAST LEFT STAGE 2 RIGHT REDUCTION FOR SYMMETRY Referral ID Status Reason Start Date Expiration Date Visits Re quested Visits Authorized [id number] 1 1 Encounter Details Date Type Department Care Team (Late st Contact Info) Description 11/16/2015 8:00 AM EDT - 11/16/2015 10:45 AM EDT Surgery EDG [address] [place] [address] Flaco Damon MD [address] [place] [address] [address] [place] [address] BREAST RECONSTRUCTION SECOND STAGE REPLACE EXPANDERS WITH IMPLANTS Surgery Details Date/Time Status Location OR Service Patient Class Case Class Case Type Trauma Case? 11/16/2015 8:00 AM Posted EDG [facility] SCC 02 Plastics Same Day Surgery N/A Panel 1 Procedure LRB Anes Op Region Wound Class Comments BREAST RECONSTRUCTION SECOND STAGE REPLACE EXPANDERS WITH IMPLANTS Left General Breast Clean LEFT BREAST STAGE 2 RECONSTRUCTION WITH IMPLANT RIGHT BREAST REDUCTION FOR SYMMETRY BREAST REDUCTION MAMMOPLASTY Right General Breast Clean Surgeon Surgeon Role Service Panel Flaco Damon MD Primary Plastics 1 Special Needs FAX documented in this encounter Social History Tobacco [...] Reading Time Taken Comments Blood Pressure 126/72 11/16/2015 11:55 AM EDT Pulse 74 11/16/2015 11:55 AM EDT Temperature 36.4 ??C (97.6 ??F) 11/16/2015 11:55 AM E DT Respiratory Rate 18 11/16/2015 11:55 AM EDT Oxygen Saturation 99% 11/16/2015 11:55 AM EDT Inhaled Oxygen Concentration - - Weight 93.9 kg (207 lb) 11/16/2015 7:18 AM EDT Height 167.6 cm (5' 6 ) 11/16/2015 7:18 AM EDT Body Mass Index 33.41 11/16/2015 7:18 AM EDT documented in this encounter Functional [...] this encounter Discharge Instructions * Discharge Instructions* Flaco Damon MD - 11/16/2015 10:37 AM EDT +++++++++++++++++++++++++++++++++++++++++++++++++++++++++++++++++++ [facility] Discharge Instructions - Following Anesthesia We appreciate the opportunity to care for you today! Here are a few reminders as you head home: ?? A responsible adult, 18 years or older must be in attendance until tomorrow morning. ?? Rest quietly today. ?? May resume usual diet as tolerated or as directed by your surgeon. ?? Do not drive or operate any machinery until tomorrow morning or as instructed. ?? Do not make any legal or important decisions for the next 24 hours. ?? Do not drink alcoholic beverages or take sleeping pills for 24 hours unless otherwise directed. ?? If you have questions or concerns regarding your anesthesia experience, please call our office at . Get Well Soon! [facility] +++++++++++++++++++++++++++++++++++++++++++++++++++++++++++++++++++ Ok to shower in 48 hours. Remove all dressings except steri strips prior to shower. Replace dressings after shower or cover with maxi pads. documented in this encounter Medications at Time [...] Departure Means Destination Home or Self Care Car Home documented in this encounter H&P Notes * Zeynep Nicholson, BRANCH SERVICE SPECIALIST - 11/16/2015 7:35 AM EDT Chief complaint: HX: breast cancer History of left mastectomy Disproportion of reconstructed breast HPI: This is a 65 y.o. year old female patient who presents today for surgical treatment of the above problem. The patient feels well and has no current complaints or concerns. The patient has limited past medical history as listed below that is stable on current medications. Pt has hsitory of post op nausea, HTN. She took Ziac MANAGER CAMP. History & Physical Past Medical History Diagnosis Date ??? Hypertension ??? Postoperative nausea and vomiting does well with patch behind ear ??? Anemia when younger only ??? Breast cancer (HCC) 02/09/15 ILC, grade 1. No receptors at this time (not sufficient tissue) ??? Motion sickness ??? Unspecified sleep apnea cpap at night. does not know setting ??? Arthritis knees, hips,back ??? Encounter for blood transfusion with THR 2 units Past Surgical History Procedure Laterality Date ??? Cholecystectomy ??? Tonsillectomy ??? Colonoscopy ??? Breast biopsy Left 02/07/15 ??? Lymph node dissection Left 01/2015 4 nodes removed ??? Hip surgery 2009 right total ??? Knee surgery 2008 right TKR ??? Foot surgery Left 10/05/2010 hammertoes ??? Breast surgery Left 06/02/2015 BREAST RECONSTRUCTION 1ST STAGE WITH EXPANDERS ; Surgeon: Flaco Damon MD; Location: ED MAIN OR; Service: General ??? Breast biopsy Left 03/03/2015 ??? Mastectomy Left 06/02/2015 No current facility-administered medications on file prior to encounter. Current Outpatient Prescriptions on File Prior to Encounter Medication Sig Dispense Refill ??? anastrozole (ARIMIDEX) [...] Reactions ??? Morphine confusion ??? Penicillins Rash History Social History ??? Marital Status: Spouse Name: N/A ??? Number of Children: N/A ??? Years of Education: N/A Occupational History ??? Not on file. Social History Main Topics ??? Smoking status: Never Smoker ??? Smokeless tobacco: Never Used ??? Alcohol Use: Yes Comment: socially ??? Drug Use: No ??? Sexual Activity: Not on file Other Topics Concern ??? Not on file Social History Narrative Family History Problem Relation Age of Onset ??? Ovarian Cancer Mother 83 ??? Cancer Mother uterus ??? Breast Cancer Sister 54 ??? Cancer Sister breast ??? Heart Failure Father ??? Thyroid Disease Father ??? Anesth Problems Neg Hx Review of Systems REVIEW OF SYSTEMS: CONSTITUTIONAL: Denies: fever, chills, weakness ALLERGIES: Denies: urticaria, angioedema ENT: Denies: sore throat, nasal congestion, nasal discharge ABDOMEN: Denies pain, nausea, vomiting, diarrhea CARDIOVASCULAR: Denies: chest pain, dyspnea on exertion, palpitations RESPIRATORY: Denies: cough, shortness of breath, wheezing GI: Denies: abdominal pain, nausea, vomiting, diarrhea NEURO: Denies: dizzy/vertigo, headache, focal weakness. Numbmess and tingling of right hand secondary to carpel tunnel per pt history MUSCULOSKELETAL: Denies: back pain, joint swelling of unaffected extremities, muscle weakness As above and all other relevant systems are negative. Filed Vitals: 11/16/15 0718 Temp: 97.7 ??F (36.5 ??C) Resp: 16 Physical Exam General: No acute distress. Neuro: alert. oriented Eyes: pupils equal. Extra-ocular muscles intact Mouth: Oral mucosa moist. Nose: midline. Good air movement Neck: supple. Abd: Soft, Non tender Chest: symmetric excursion with respiration. Respirations unlabored and regular. CTA B Heart: Regular rate and rhythm w/o R/G/M, no bruits Abdomen: soft, non-tender, non-distended, +bowel sounds Extremities: 2+ pulses upper and lower extremities bilaterally, no edema, cap refill brisk to toes and fingers, BP 140/76 Relevant Labs and Imaging reviewed. Lab Results Component Value Date WBC 7.1 06/02/2015 HGB 12.7 06/02/2015 HCT 37.9 06/02/2015 PLT 167 06/02/2015 CHOLESTEROL 200 05/24/2015 TRIG 104 05/24/2015 HDL 61 05/24/2015 LDLCALC 118* 05/24/2015 ALT 27 05/24/2015 AST 20 05/24/2015 NA 141 05/24/2015 K 4.0 05/24/2015 CL 103 05/24/2015 CREATININE 0.90 05/24/2015 BUN 15 05/24/2015 CO2 24 05/24/2015 GLU 105* 05/24/2015 Assessment: HX: breast cancer History of left mastectomy Disproportion of reconstructed breast Plan: Procedure(s): LEFT STAGE 2 RIGHT REDUCTION FOR SYMMETRY (IMPLANTS ORDERED 11/09 PER DC) per Flaco Damon MD Joan O Bovard, APRN 7:35 AM Cosigned by Fadi Rizo MD at 11/20/2015 7:25 AM EDT documented in this encounter Procedure Notes * Flaco Damon MD - 11/16/2015 10:59 AM EDT [facility]/[place] [place] NAME: DI[facility] EDOUARD [facility] [id number] LOCATION/ROOM: [facility] FACILITY: [facility] DICTATOR: Flaco Damon OPERATIVE REPORT Page 1 OPERATIVE REPORT DATE OF OPERATION: 11/16/2015 PREOPERATIVE DIAGNOSIS: History of left breast cancer, mastectomy and reconstruction with tissue float remover and right macromastia. POSTOPERATIVE DIAGNOSIS: History of left breast cancer, mastectomy and reconstruction with tissue float remover and a right macromastia. PROCEDURES: 1. Left second stage breast reconstruction with removal of tissue float remover replacement with permanent silicone implant open periprosthetic capsulotomy and capsulectomy. 2. Right breast reduction for symmetry. SURGEON: Flaco Damon M.D. LINE PALLETIZER: Jessy Moreno R.N. ANESTHESIA: General. INDICATIONS FOR PROCEDURE: The patient is a 65-year-old female who presented with left breast cancer at which time she underwent a mastectomy for treatment and therapeutic reasons and had immediate reconstruction with tissue expansion. She has now been fully expanded out and will need her second stage to remove the tissue float remover and replace it with permanent implants. The right side is also very ptotic and large, and will be reduced as a symmetry procedure to match the reconstructed the side. DETAILS OF PROCEDURE: The patient was correctly identified in the preop holding area. Risks and benefits of the procedure were entertained, but not limited to bleeding, infection, scarring and asymmetry. Knowing this, she agreed and consented to the procedure. She was then marked in the upright position in the preop holding area. The right breast was marked for a ballard-patterned inferior pedicle breast reduction. The left side inframammary fold was marked as well and midlines were marked. At this point, she was transferred to the main OR and she received prophylactic antibiotics and had SCDs on at the induction of anesthesia. Once anesthesia was induced, the chest was prepped and draped in a sterile fashion. A timeout was then performed where the site, surgery, surgeon, and the patient were verified. The procedure was then begun on the left side. A 5 cm incision was made in the inframammary fold or old mastectomy scar of the left side. Sharp dissection was then carried out to the levelof the capsule. The capsule was sharply opened. The float remover was then popped and the saline was evac uated and the float remover was then removed. Using a lighted retractor, a circumferential capsulotomy was performed and portions of the capsule were removed from the lower pole to allow for adequate ptosis. The wound was then copiously irrigated and directly inspected for hemostasis. At this point, gloves were changed and the wound was then reprepped with Betadine and redraped with sterile towels, and on the left side a new implant was opened from the sterile packaging. This was a [place] MemoryShape medium height moderate profile 530 mL implant, serial #[id number]. This was placed with a no-touch technique and oriented correctly into the pocket. The wound was then closed in layers with 2-0 Monocryl for deep structures, 3-0 Monocryl for dermis, and 4-0 Monocryl for skin. Attention was focused to the right side and a tourniquet was placed around the right breast. The areolar nipple areolar complex was then downsized to 45 mm. The inferior pedicle was deepithelialized.The superior, medial and lateral breast flap was then created. The pedicle was then thinned out sequentially until the breast on the right side was significant in size or similar in size asymmetric to the left side. The total reduction on this side was approximately 800 grams from the right side. The wound was then copiously irrigated. Hemostasis was assured. The wound on the right side was then closed in a tri- corner stitch of 0 Vicryl holding the three corners together. Care was taken not to torse or twist the pedicle. The wound was temporarily closed with chris. It was then definitively closed with 3-0 Monocryl stapling device and 3-0 subcuticular suture. The nipple areolar complex wasbrought out at the appropriate position and was then sutured in place with 3-0 Monocryl sutures for dermis and 4-0 Monocryl running subcuticular for skin. Pinpricks of the inferior complex revealed arterial bleeding with no signs of congestion, ischemia or necrosis. The wound was then dressed with Steri-Strips, 4 x 4's, ABDs, and paper tape and a postoperative bra. At the end of procedure, all sponge, needle, and instrument counts were correct. The patient was then extubated and sent to the recovery room in stable condition. Flaco Damon M.D. By: fredy Job ID: [id number] Doc ID: [id number] CC: * Flaco Damon MD - 11/16/2015 10:35 AM EDT [facility] OPERATIVE/PROCEDURE NOTE Diamante Edouard November 16, 2015 Body mass index is 33.43 kg/(m^2). PRE-OP DIAGNOSIS: HX: breast cancer History of left mastectomy Disproportion of reconstructed breast POST-OP DIAGNOSIS: HX: breast cancer History of left mastectomy Disproportion of reconstructed breast PROCEDURE(S): Procedure(s): LEFT BREAST STAGE 2 RIGHT BREAST REDUCTION FOR SYMMETRY SURGEON(S): Surgeon(s) and Role: * Flaco Damon MD - Primary LINE PALLETIZER(S): Nayan Moreno RN ANESTHESIA: General SPECIMENS: ID Type Source Tests Collected by Time Destination 1 : Right breast tissue Flaco Damon MD 11/16/2015 1006 Pathology ESTIMATED BLOOD LOSS: 150 FINDINGS: None OTHER INFO: 790 gms right breast DISPOSITION/POST PROC COURSE: Stable to Pacu Flaco Damon MD Date: 11/16/2015 documented in this encounter Nursing Notes * Soha Yeung RN - 11/16/2015 12:29 PM EDT Patient sittingin chair . No complaints. * Marci Head RN - 11/02/2015 4:07 PM EDT Pre-Op Instructions Date of Surgery 11/16/2015 1. Do not eat any food or drink anything after midnight. This includes chewing gum, mints, candy, chewing tobacco and dip. 2. Local anesthesia only, you may eat a light meal prior to arrival for surgery. 3. You may brush your teeth and gargle the morning of surgery. Do not swallow water. 4. Take the following pills with a small sip of water on the morning of surgery: ziac as instructedby Dr Toussaint 5. Aspirin, Coumadin, Ibuprofen, Plavix, Fish Oil, Vitamin E, any Supplements and Anti-Inflammatoryproducts may be stopped as directed by your physician. 6. Stop or reduce smoking for 24 hours prior to surgery. No beer, wine or alcohol 24 hours prior tosurgery. 7. You MUST make arrangements for a responsible adult (18 years or older) to stay with you the entire time you are at the surgery center. 8. You MUST make arrangements for your PARTNER IN CARE or another designated adult (18 years or older) to take you home after surgery. You will not be allowed to be left home alone or drive yourself home. It is required that your PARTNER IN CARE or designated adult stay with you the first 24 hours after your procedure. Reynaldo 9. A parent must accompany a child scheduled for surgery and plan to stay at the surgery center until the child is discharged. If your infant takes a special type of nipple or baby bottle, please bring that with you. If your child has a favorite security item such as a blanket or a special toy, please feel free to bring that with you. 10. Please do not bring children with you to the surgery center. 11. Please wear simple, loose fitting clothing to the surgery center. Do not bring valuables (money, credit cards, check books, etc.) or wear any jewelry on day of surgery. Remove all body piercings prior to arrival. All jewelry must be removed to avoid injury. We will not tape wedding rings/bands. 12. If you have dentures, they may be removed before going to the OR, we will provide a container for them. If you wear contact lenses or glasses, they will be removed; please bring a case for them. 13. Do not remove hearing aids, you will wear them to surgery. 14. Please shower morning of surgery or night before. Do not wear any makeup (including no eye makeup) lotion, powder, or deodorant. Nail australian must be removed if australian is on operative extremity. Please do not shave operative extremity or near the operative extremity. 15. If you have a Living Will and Durable Power of Carry Out Clerk for Healthcare, please bring a copy. 16. Notify your Surgeon if you develop any illness between now and surgery time, cough, cold, fever, sore throat, nausea, vomiting, rash, etc. 17. Bring your photo ID and insurance card. If your insurance coverage requires a co-payment or deductible, please bring the payment with you. We accept Visa, MasterCard, [email or web address] and [place] [employer] credit cards. Our Customer Service Representatives will be available by telephone for any questions regarding financial issues at [phone]. 18. If you wear CPAP or BIPAP, [...] hospital will supply oxygen for your use. If you have any questions please call the: Surgery Center [facility] at [phone] documented in this encounter Plan of Treatment Upcoming Encounters Date Type Department Care Team (Late st Contact Info) Description 05/24/2024 10:30 AM EST Office Visit [facility] [address] [place] [phone] Nikolas Jha DPM [address] [place] [address] [place] [phone] documented as of this encounter Procedures Procedure Name Priority Date/Time Associated Diagnosis Comments SCANNED RHYTHM STRIPS 11/20/2015 1:16 PM EDT PATHOLOGY TISSUE REPORT Routine 11/16/2015 10:08 AM EDT BREAST REDUCTION MAMMOPLASTY 11/16/2015 8:29 AM EDT HX: breast cancer History of left mastectomy Disproportion of reconstructed breast Special Needs FAX BREAST RECONSTRUCTION SECOND STAGE REPLACE EXPANDERS WITH IMPLANTS 11/16/2015 8:29 AM EDT HX: breast cancer History of left mastectomy Disproportion of reconstructed breast Special Needs FAX documented in this encounter Results * SCANNED RHYTHM STRIPS (11/20/2015 1:16 PM EDT) Anatomical Region Laterality Modality Other 11/20/2015 1:16 PM EDT us Unknown Unknown IMG ECG ORDERABLES Final Result * PATHOLOGY TISSUE REPORT (11/16/2015 10:08 AM EDT) Surgical Pathology Report ? PATIENT NAME:DIAMANTE EDOUARD ?Surgical Pathology Report ? Accession Number ?Collected Date/Time ? Received Date/Time ? [id number] ? 11/16/15 10:08 EDT ?11/17/15 09:03 EDT ? Diagnosis ? Right breast tissue, excision: ? - Benign breast tissue, 798 gm. ? - Negative for cytologic atypia or malignancy. ? SHIVAM ABHISHEK ? (Electronically signed by) ? Verified: 11/20/2015 ? FTT Lab ? Clinical Information ? Breast cancer, history of left breast mastectomy ? Routine ? Gross Description ? Received fresh and transferred in formalin labeled with the patient's name ? and right breast tissue is a 798 gm, 23.5 x 15.6 x 5.5 cm aggregate of ? yellow-alexander fibrofatty tissue with attached portions of pink-alexander to mildly ? hyperemic unremarkable skin. The specimen is serially sectioned to display ? a lobular yellow-alexander fatty cut surface interspersed with white-alexander fibrous ? tissue with no masses or lesions identified. Block Handler sections are ? submitted in four cassettes. / TE ? MMY/DH ? Microscopic Description ? Microscopic examination is performed and the findings corroborate the ? diagnosis. [facility] 11/16/2015 10:0 8 AM EDT us Flaco Damon MD PATHOLOGY ORDERABLES Final Result [facility] [address] [place] [address] documented in this encounter Visit Diagnoses Diagnosis HX: breast cancer Personal history of malignant neoplasm of breast History of left mastectomy Acquired absence of breast and nipple Disproportion of reconstructed breast documented in this encounter Administered Medications Inactive Administered Medications - up to 1 most recent administrations Medication Order MAR Action Action Date Dose Rate Site bupivacaine-EPINEPHrine 0.5 %-1:200,000 injection ONCE PRN, 1 dose, Starting on Dagmar 11/16/15 at 0844, Until Fri11/16/15 at 0844, Intra-op Given 11/16/2015 8:44 AM EDT 30 mL Other famotidine (PEPCID) 20 mg/2 mL injection 20 mg 20 mg, Intravenous, ONCE PREPROCEDURE, 1 dose, On Fri11/15/15 at 0815, Slow IV push (greater than 2 minutes). To be given in SDS/Pre-op Holding Area Use 10 mL normal saline to dilute and administer famotidine IV, Pre-op (Holding/SDS Meds) Given 11/16/2015 7:51 AM EDT 20 mg fentaNYL (SUBLIMAZE) 50 mcg/mL injection 25 mcg 25 mcg, Intravenous, EVERY 5 MIN PRN, 4 doses, Starting on Dagmar 11/16/15 at 1035, Until Dagmar 11/16/15 at 1131, Pain, For initial pain. Maximum dose not to exceed 100 mcg., PACU Given 11/16/2015 11:31 AM EDT 25 mcg lactated ringers infusion Intravenous, at 50 mL/hr, PREPROCEDURE CONTINUOUS, Starting on Fri11/15/15 at 0806, Until Fri11/16/15 at 1648, To be given in SDS/Pre-op Holding Area, Pre-op (Holding/SDS Meds) New Bag 11/16/2015 9:59 AM EDT oxyCODONE (ROXICODONE) immediate release tablet 5 mg 5 mg, Oral, PRN, 2 doses, Starting on Fri11/16/15 at 1035, Until Fri11/16/15 at 1648, Pain, If patient has received IV acetaminophen (OFIRMEV): Give 5 mg if patient able to take oral medication. Reassess pain in 20 minutes and give additional 5 mg if pain not improved., PACU Given 11/16/2015 11:31 AM EDT 5 mg scopolamine (TRANSDERM-SCOP) 1.5 mg (1 mg over 3 days) 1 Patch 1 Patch, Transdermal, EVERY 72 HOURS, First dose on Fri11/16/15 at 0745, Until Discontinued, Remove old patch at time of administration., Administer over 24 Hours, Pre-op (Holding/SDS Meds) Patch Applied 11/16/2015 7:51 AM EDT 1 Patch Left Ear vancomycin (VANCOCIN) 1,000 mg in sodium chloride 0.9 % 500 mL irrigation 1,000 mg, ONCE PRN, 1 dose, Starting on Fri11/16/15 at 0903, Until Fri11/16/15 at 0844, Intra-op Given 11/16/2015 8:44 AM EDT 1,000 mg Other documented in this encounter Active and Recently Administered Medications Times are shown in EDT. Scheduled Medication Order 11/14/2015 11/15/2015 11/16/2015 famotidine (PEPCID) 20 mg/2 mL injection 20 mg (COMPLETED) 20 mg, Intravenous, ONCE PREPROCEDURE, 1 dose, On Fri11/15/15 at 0815, Slow IV push (greater than 2 minutes). To be given in SDS/Pre-op Holding Area Use 10 mL normal saline to dilute and administer famotidine IV, Pre-op (Holding/SDS Meds) 0815 (Due) 0751 (Given - Provider: Mirna Palomino RN) scopolamine (TRANSDERM-SCOP) 1.5 mg (1 mg over 3 days) 1 Patch (CANCELED) 1 Patch, Transdermal, EVERY 72 HOURS, First dose on Fri11/16/15 at 0745, Until Discontinued, Remove old patch at time of administration., Administer over 24 Hours, Pre-op (Holding/SDS Meds) 0751 (Patch Applied - Provider: Mirna Palomino RN) vancomycin (VANCOCIN) reconstituted injection 1,000 mg (COMPLETED) 1,000 mg, Topical, ONCE, 1 dose, On Dagmar 11/16/15 at 0830, VESICANT , Pre-op (Holding/SDS Meds) 0829 (Given - Provid er: Karely Fletcher MD) PRN Medication Order 11/14/2015 11/15/2015 11/16/2015 bupivacaine-EPINEPHrine 0.5 %-1:200,000 injection (CANCELED) ONCE PRN, 1 dose, Starting on Dagmar 11/16/15 at 0844, Until Fri11/16/15 at 0844, Intra-op 0844 (Given - Provid er: Flaco Damon MD - Comment: bilateral breast injection) fentaNYL (SUBLIMAZE) 50 mcg/mL injection 25 mcg (COMPLETED) 25 mcg, Intravenous, EVERY 5 MIN PRN, 4 doses, Starting on Dagmar 11/16/15 at 1035, Until Dagmar 11/16/15 at 1131, Pain, For initial pain. Maximum dose not to exceed 100 mcg., PACU 1116 (Given - Provid er: Carolyn Cesar RN)1121 (Given - Provider: Carolyn Cesar RN)1126 (Given - Provider: Carolyn Cesar RN)1131 (Given - Provider: Carolyn Cesar RN) lactated ringers infusion (CANCELED) Intravenous, at 50 mL/hr, PREPROCEDURE CONTINUOUS, Starting on Fri11/15/15 at 0806, Until Fri11/16/15 at 1648, To be given in SDS/Pre-op Holding Area, Pre-op (Holding/SDS Meds) 0749 (New Bag - Prov ider: Mirna Palomino RN)0822 (Anesthesia Volume Adjustment - Provider: Karely Fletcher MD)0959 (New Bag - Provider: Karely Fletcher MD)1036 (Anesthesia Volume Adjustment - Provider: Karely Fletcher MD)1230 (Stopped - Provider: Carolyn Cesar RN) oxyCODONE (ROXICODONE) immediate release tablet 5 mg (CANCELED) 5 mg, Oral, PRN, 2 doses, Starting on Dagmra 11/16/15 at 1035, Until Fri11/16/15 at 1648, Pain, If patient has received IV acetaminophen (OFIRMEV): Give 5 mg if patient able to take oral medication. Reassess pain in 20 minutes and give additional 5 mg if pain not improved., PACU 1131 (Given - Provid er: Carolyn Cesar RN) vancomycin (VANCOCIN) 1,000 mg in sodium chloride 0.9 % 500 mL irrigation (CANCELED) 1,000 mg, ONCE PRN, 1 dose, Starting on Dagmar 11/16/15 at 0903, Until Dagmar 11/16/15 at 0844, Intra-op 0844 (Given - Provid er: Flaco Damon MD - Comment: on scrub's back table with 1 ml Epi 1:1000) documented in this encounter Orders Medications Ordered That Binu ht Not Have Been Administered Count Last Ordered Date First Ordered Date acetaminophen (OFIRMEV) infusion 1,000 mg 1 11/16/2015 HYDROmorphone (DILAUDID) injection 0.25 mg 1 11/16/2015 ondansetron (ZOFRAN) 4 mg/2 mL injection 4 mg 1 11/16/2015 ondansetron (ZOFRAN-ODT) dis integrating tablet 8 mg 1 11/16/2015 oxyCODONE-acetaminophen (PER COCET) 5-325 mg per tablet 1 Tab 1 11/16/2015 promethazine (PHENERGAN) inj ection 6.25-12.5 mg 1 11/16/2015 vancomycin (VANCOCIN) recons tituted injection 1,000 mg 1 11/16/2015 metoprolol (LOPRESSOR) tablet 25 mg 1 11/14 Lab Orders Without Results Count Last Ordered D ate First Ordered Date PATHOLOGY TISSUE REQUEST 1 11/16/2015 documented in this encounter Care Teams Military Professional Relationship Specialty Start Date End Date Carlos Manuel Barragan [address] [place] [address] [address] [place] [address] PCP - General 07/03/10 documented as of this encounter
--- OUTSIDE RECORDS SUMMARY | 2024-05-04 22:55 | XMS_ITS | Encounter Summary ---
Author Organization [place] [address] Care Team Providers Care Manager Grocery Name Role Phone Carlos Manuel Barragan Primary Care Provider [phone] Reason for Visit * Reason Onset Date Comments Results 03/20/2015 Encounter Details Date Type Department Care Team (Late st Contact Info) Description 03/20/2015 Telephone [facility] 3rd Floor [place], [place] [id number] Pita Sethi CGC [address] [facility] [address] [place] [address] Results Social History Tobacco Use Types Packs/Day [...] Miscellaneous Notes * Telephone Encounter - Pita White CGC - 03/20/2015 2:19 PM EDT Attempted to disclose results of additional genetic testing. Left voice message with contact information for her to call back. documented in this encounter Plan of Treatment Upcoming Encounters Date Type Department Care Team (Late st Contact Info) Description 05/24/2024 10:30 AM EST Office Visit [facility] [place] [address] [place] [address] [place] [phone] Nikolas Jha, DPM [address] [address] [place] [phone] documented as of this encounter Visit Diagnoses Not on filedocumented in this encounter Care Teams Manager Grocery Relationship Specialty Start Date End Date Carlos Manuel Barragan [facility] [address] [place] [address] PCP - General 07/03/10 documented as of this encounter
--- OUTSIDE RECORDS SUMMARY | 2024-05-04 22:55 | XMS_ITS | Encounter Summary ---
Author Organization [place] [address] Care Team Providers Care Customer Assistant Name Role Phone Carlos Manuel Barragan Primary Care Provider [phone] Reason for Referral * DEXA (Routine) - Closed Specialty Diagnoses / Procedures Referred By Contac t Referred To Contact Radiology Diagnoses History of breast cancer Post-menopausal Long-term use of high-risk medication Procedures DX BONE DENSITY AXIAL SKELETON Dany Crouch MD Phone: tel: fax: Referral ID Status Reason Start Date Expiration Date Visits Re quested Visits Authorized [id number] Closed 01/10/2016 01/09/2017 1 1 * Mammography (Routine) - Closed Specialty Diagnoses / Procedures Referred By Contac t Referred To Contact Radiology Diagnoses History of reduction surgery of right breast Procedures MM MAMMO DIGITAL DIAGNOSTIC W CAD RIGHT Dany Crouch MD Phone: tel: fax: Referral ID Status Reason Start Date Expiration Date Visits Re quested Visits Authorized [id number] Closed 01/10/2016 01/09/2017 1 1 Reason for Visit * Reason Comments Follow-up Encounter Details Date Type Department Care Team (Latest Contact Info) Description 01/10/2016 8:52 AM EDT - 01/10/2016 11:59 PM EDT Hospital Encounter [facility] [place] [address] Dany Crouch MD [address] [place] [address] [place] [address] History of breast cancer (Primary Dx); History of reduction surgery of right breast; Post-menopausal; Long-term use of high-risk medication; Hot flashes Discharge Disposition: Home or Self Care Social [...] Sign Reading Time Taken Comments Blood Pressure 139/82 01/10/2016 9:33 AM EDT Pulse 63 01/10/2016 9:33 AM EDT Temperature 36.8 ??C (98.2 ??F) 01/10/2016 9:33 AM ED T Respiratory Rate - - Oxygen Saturation - - Inhaled Oxygen Concentration - - Weight 93.4 kg (206 lb) 01/10/2016 9:33 AM EDT Height 167.6 cm (5' 6 ) 01/10/2016 9:33 AM EDT Body Mass Index 33.25 01/10/2016 9:33 AM EDT documented in this encounter Functional [...] documented in this encounter Progress Notes * Olesya Aiken RN - 01/10/2016 9:05 AM EDT Pt seen in Breast clinic for 6 mos f/u; hx of Lt ILC 01/2015 with Lt mastectomy 05/2015; taking Arimidex with c/o hot flashes; had Rt mammogram 08/2015; P: knowledge deficit r/t hot flashes G: educate I: discussed herbal supplements to help with hot flashes; discussed need for Rt mammogram in near future; discussed need for DEXA scan every 2 years while on Arimidex; discussed importance of taking Arimidex; discussed importance of vit D; discussed future health following breast cancer; Pt to schedule DEXA and Rt mammogram in the near future Return in 6 mos Survivorship Care Plan given to patient and information reviewed * Dany Crouch MD - 01/10/2016 9:01 AM EDT Images from the original note were not included. Subjective: Ms. Alarcon is here for a scheduled routine follow-up visit History of Present Illness The patient is a 65 y.o. female who presents with a complaint of 6 mo breast follow up HPI Pt reports she is doing well. She is taking Arimidex and having hot flashes. No tightness in her hands or feet. No other family members with breast, ovarian, prostate, pancreatic or melanoma cancer. No back ache or bone pain. Pt did not have radiation. MM MAMMO DIG SCREEN CAD RIGHT 08/28/15 CC and MLO view(s) were taken of the right breast. The breast tissue is heterogeneously dense. This may lower the sensitivity of mammography. Compared to prior studies the most recent being 02-03-15 ~ IMPRESSION: Negative ([id number]) ~ RECOMMENDATION: Routine screening mammogram of the right breast in 1 year. Past Medical History Diagnosis Date ??? Anemia when younger only [...] EXPANDERS ; Surgeon: Flaco Damon MD; Location: [facility] OR; Service: General ??? Breast biopsy Left 03/03/2015 ??? Mastectomy Left 06/02/2015 ??? Breast reconstruction Left 11/16/2015 LEFT BREAST STAGE 2 RECONSTRUCTION WITH IMPLANT RIGHT BREAST REDUCTION FOR SYMMETRY ; Surgeon: Flaco Damon MD; Location: [facility]; Service: Plastics ??? Breast reduction surgery Right 11/16/2015 Surgeon: Flaco Damon MD; Location: [facility]; Service: Plastics Family History Problem Relation Age of Onset [...] ??? Penicillins Rash Review of Systems Constitutional: Hot flashes All other systems reviewed and are negative. Objective: There were no vitals filed for this visit.There is no height or weight on file to calculate BMI. Physical Exam Constitutional: She is oriented to [...] note and vitals reviewed. Assessment and Plan: Genetic testing clean FARIDA by exam. Continue with Arimidex and Vitamin D3 daily She reports hot flashes and may try Vitamin E, Black Cohosh and [place] oil. If no improvement shemay try low dose Effexor Bone density scan and Dx right breast baseline mammogram ordered Return in 6 months Note written by PRASANNA Reeves, acting as scribe for Yamel Crouch MD. Juany was seen today for follow-up. Diagnoses and all orders for this visit: History of breast cancer Orders: - DEXA bone density axial skeleton; Future History of reduction surgery of right breast Orders: - Mammography digital diagnostic with CAD right; Future Post-menopausal Orders: - DEXA bone density axial skeleton; Future Long-term use of high-risk medication Orders: - DEXA bone density axial skeleton; Future Hot flashes ???I have reviewed this note and it accurately reflects my work and decisions made during this visit.?? Dany Crouch MD documented in this encounter Miscellaneous Notes * Patient Instructions - Olesya Aiken RN - 01/10/2016 9:09 AM EDT Images from the original note were not included. If you have any problems or questions, you can call the nurse navigator @ If you need to call regarding an appointment, call the nurse navigator clerk secretary @ It is recommended that you take Vitamin D3; there are new findings that associate low Vitamin D levels to breast cancer and lung cancer and colon cancer ; The usual over the counter dosage is 1139-1097 units daily. * 1000 units in the Summer and * 2000 units in the Winter You can try Black Cohosh to see if it helps the hot flashes; You can also try a prescription medication of Effexor or Paxil to help with the hot flashes You can also try taking a 2 week break from Arimidex and then restart Signs and symptoms to watch for following breast cancer include: 1)unusual and persistant shortnessof breath that has no explanation 2) unusual persistant bone/back pain that has no explanation and is capable of waking you up at night 3) Right breast lumps or nipple discharge. Don't forget to continue monthly Right Self Breast Exam and Lt chest wall exam You will need to have a DEXA scan every 2 years while on Arimidex You will need to have a diagnostic mammogram of the Right breast Breast Cancer Survivor Follow-up Breast cancer [...] near the breast (regional recurrence) may include: ?? A lump under the arm or above the collarbone. ?? Swelling of the arm. ?? Pain in the arm, shoulder, or chest. ?? Numbness in the hand or arm. Symptoms of cancer that comes back in an area of the body far away from the original cancer site (distant recurrence) may include: ?? A cough that does not go away. ?? Trouble breathing or shortness of breath. ?? Pain in the bones or the chest. This is pain that lasts or does not improve with rest and medicine. ?? Headaches. ?? Sudden vision problems. ?? Dizziness. ?? Nausea or vomiting. ?? Weight loss. ?? Persistent abdominal pain. ?? Changes in bowel movements or blood in the stool. ?? Yellowing of the skin or eyes (jaundice). ?? Blood in the urine or bloody vaginal [...] Document Reviewed: 03/18/2014 ExitCare?? Patient Information ??2015 CareSimply. This information is not intended to replace [...] all your clothes above your waist. 2. water supply engineer front of a mirror in a room with good lighting. 3. Put your hands on your hips and push your hands downward. Feel your breasts. 1. Lie flat on your back or intake coordinator the shower or tub. If you are [...] 04/28/2013 Document Reviewed: 08/26/2012 ExitCare?? Patient Information ??2015 CareSimply. This information is not intended to replace advice given to you by your health care provider. Make sure you discuss any questions you have with your health care provider. Menopause Menopause is the normal time of life when menstrual periods stop completely. Menopause is complete when you have missed 12 consecutive menstrual periods. It usually occurs between the ages of 48 years and 55 years. Very rarely does a woman develop menopause before the age of 40 years. At menopause,your ovaries stop producing the female hormones estrogen and progesterone. This can cause undesirable symptoms and also affect your health. Sometimes the symptoms may occur 4-5 years before the menopause begins. There is no relationship between menopause and: ?? Oral contraceptives. ?? Number of children you had. ?? Race. ?? The age your menstrual periods started (menarche). Heavy smokers and very thin women may develop menopause earlier in life. CAUSES ?? The ovaries stop producing the female hormones estrogen and progesterone. ?? Other causes include: ?? Surgery to remove both ovaries. ?? The ovaries stop functioning for no known reason. ?? Tumors of the pituitary gland in the brain. ?? Medical disease that affects the ovaries and hormone production. ?? Radiation treatment to the abdomen or pelvis. ?? Chemotherapy that affects the ovaries. SYMPTOMS ?? Hot flashes. ?? Night sweats. ?? Decrease in sex drive. ?? Vaginal dryness and thinning of the vagina causing painful intercourse. ?? Dryness of the skin and developing wrinkles. ?? Headaches. ?? Tiredness. ?? Irritability. ?? Memory problems. ?? Weight gain. ?? Bladder infections. ?? Hair growth of the face and chest. ?? Infertility. More serious symptoms include: ?? Loss of bone (osteoporosis) causing breaks (fractures). ?? Depression. ?? Hardening and narrowing of the arteries (atherosclerosis) causing heart attacks and strokes. DIAGNOSIS ?? When the menstrual periods have stopped for 12 straight months. ?? Physical exam. ?? Hormone studies of the blood. TREATMENT There are many treatment choices and nearly as many questions about them. The decisions to treat ornot to treat menopausal changes is an individual choice made with your health care provider. Your health care provider can discuss the treatments with you. Together, you can decide which treatment will work best for you. Your treatment choices may include: ? Non-hormonal medicines. ?? Treating the individual symptoms with medicine (for example antidepressants for depression). ?? Herbal medicines that may help specific symptoms. ?? Counseling by a psychiatrist or psychologist. ?? Group therapy. ?? Lifestyle changes including: ?? Eating healthy. ?? Regular exercise. ?? Limiting caffeine and alcohol. ?? Stress management and meditation. ?? No treatment. HOME CARE INSTRUCTIONS ?? Take the medicine your health care provider gives you as directed. ?? Get plenty of sleep and rest. ?? Exercise regularly. ?? Eat a diet that contains calcium (good for the bones) and soy products (acts like estrogen hormone). ?? Avoid alcoholic beverages. ?? Do not smoke. ?? If you have hot flashes, dress in layers. ?? Take supplements, calcium, and vitamin D to strengthen bones. ?? You can use qmjd-gaz-kyjvoxq lubricants or moisturizers for vaginal dryness. ?? Group therapy is sometimes very helpful. ?? Acupuncture may be helpful in some cases. SEEK MEDICAL CARE IF: ?? You are not sure you are in menopause. ?? You are having menopausal symptoms and need advice and treatment. ?? You are still having menstrual periods after age 55 years. ?? You have pain with intercourse. ?? Menopause is complete (no menstrual period for 12 months) and you develop vaginal bleeding. ?? You need a referral to a specialist (instrument room technician, psychiatrist, or psychologist) for treatment. SEEK IMMEDIATE MEDICAL CARE IF: ?? You have severe depression. ?? You have excessive vaginal bleeding. ?? You fell and think you have a broken bone. ?? You have pain when you urinate. ?? You develop leg or chest pain. ?? You have a fast pounding heart beat (palpitations). ?? You have severe headaches. ?? You develop vision problems. ?? You feel a lump in your breast. ?? You have abdominal pain or severe indigestion. Document Released: 08/01/2004 Document Revised: 01/12/2014 Document Reviewed: 12/09/2013 ExitCare?? Patient Information ??2015 CareSimply. This information is not intended to replace advice given to you by your health care provider. Make sure you discuss any questions you have with your health care provider. documented in this encounter Plan of Treatment Upcoming Encounters Date Type Department Care Team (Late st Contact Info) Description 05/24/2024 10:30 AM EST Office Visit [facility] [address] [place] [phone] Nikolas Jha, [facility] [address] [place] [address] [place] [phone] documented as of this encounter Results * MM MAMMO DIGITAL DIAGNOSTIC W CAD RIGHT (05/17/2016 1:15 PM EST) Anatomical Region Laterality Modality Breast Right Mammography 05/21/2016 10:4 8 AM EST Impressions 05/21/2016 11:05 AM EST : Negative ??([id number]) ~ RECOMMENDATION: Routine screening mammogram of the right breast in 1 year. ~ DISCLAIMER * The patient with a palpable abnormality, unexplained by [...] reviewed by a Radiologist and CAD. Narrative 05/21/2016 11:05 AM EST Procedure:MM MAMMO DIGITAL DIAGNOSTIC W CAD RIGHT ~ Reason for exam: history of breast cancer, mastectomy. ~ MM MAMMO DIGITAL DIAG CAD RIGHT CC and MLO view(s) were taken of the right breast. There are scattered fibroglandular densities. ??No focal mass. No suspicious calcifications. Compared to prior studies the most recent being 08-28-15 ~ us Dany Crouch MD IMG MAMMOGRAPHY ORDERABLES Final Result * DX BONE DENSITY AXIAL SKELETON (05/17/2016 12:38 PM EST) Anatomical Region Laterality Modality Dexa Scan 05/17/2016 Narrative 05/20/2016 6:25 AM EST Indication: The patient is a female age 65 or older who requires a bone density assessment. Study was performed on [employer] Bone Density: Region ?BMD ? T-score ? Z- score ?? Femoral Neck (Left) ? 0.844 ? 0.0 ? 1.5 ? Total Hip (Left) ?0.959 ? 0.1 ? 1.4 ? 1/3 Radius (Left) ? 0.651 ?-0.7 ? 0.9 ? World Health Organization criteria for BMD [...] Risk: FRAX not reported because: ??All T-scores at or above -1.0 Clinical Information Provided by Patient: Has taken Glucocorticoids. Has used or is currently using the following medications: Aromatase Inhibitors, Vitamin D, Depo-medrixyprogesterone Has had or currently has the following medical conditions: Breast Cancer, Back pain, Hip pain Patient maximum height was 65 Menopause Age: 51 Patient is postmenopause Interpretation: Bone mineral density is in the normal range. A minimum of two years may be required between bone density studies due to inherent testing precision limitations. Intervals between BMD testing should be determined according to each patient's clinical status. The spine portion of the study is omitted due to visual hypertrophic change. Reported by: Jennifer Vides PA-C,CCD on 05/17/2016 12:58:00 PM. us Dany Crouch MD IMG DEXA ORDERABLES Final R esult documented in this encounter Visit Diagnoses Diagnosis History of breast cancer- Primary Personal history of malignant neoplasm of breast History of reduction surgery of right breast Post-menopausal Asymptomatic postmenopausal status (age-related) (natural) Long-term use of high-risk medication Hot flashes Symptomatic menopausal or female climacteric states History of reduction surgery of right breast History of breast cancer Personal history of malignant neoplasm of breast Post-menopausal Asymptomatic postmenopausal status (age-related) (natural) Long-term use of high-risk medication documented in this encounter Care Teams Customer Assistant Relationship Specialty Start Date End Date Carlos Manuel Barragan [address] [place] [address] [address] [facility] [place] [address] PCP - General 07/03/10 documented as of this encounter
--- OUTSIDE RECORDS SUMMARY | 2024-05-04 22:55 | XMS_ITS | Encounter Summary ---
Author Organization [place] [address] Care Team Providers Care Lie Detector Operator Name Role Phone Carlos Manuel Barragan Primary Care Provider [phone] Encounter Details Date Type Department Care Team (Late st Contact Info) Description 11/02/2015 Orders Only [facility] [address] [place] [address] Corby Toussaint MD [address] [place] [address] [facility] [place] [address] Essential hypertension (Primary Dx) Social History Tobacco Use Types [...] Assessment Author No 06/03/2015 1:49 PM EST GianniMitzi APRN * Does this person have [...] AM EST Office Visit [facility] [address] [place] [phone] Nikolas Jha [facility] [address] [place] [address] [address] [place] [phone] Scheduled Orders Name Type Priority Associated Diagnoses Orde r Schedule EK EKG 12 LEAD Imaging Cardiology Routine Essential hypertension 1 Occurrences starting 11/02/2015 until 11/01/2016 documented as of this encounter Visit Diagnoses Diagnosis Essential hypertension- Primary Unspecified essential hypertension documented in this encounter Care Teams Lie Detector Operator Relationship Specialty Start Date End Date Carlos Manuel Barragan [address] [facility] [address] [place] [address] PCP - General 07/03/10 documented as of this encounter
--- OUTSIDE RECORDS SUMMARY | 2024-05-04 22:55 | XMS_ITS | Encounter Summary ---
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 CA DELAY BREAST PROS AFTER BREAST SURG CA REDUCTION OF LARGE BREAST LEFT STAGE 2 RIGHT REDUCTION FOR SYMMETRY Referral ID Status Reason Start Date Expiration Date Visits Re quested Visits Authorized [id number] 1 1 Encounter Details Date Type Department Care Team (Latest Contact Info) Description 11/16/2015 6:53 AM EDT - 11/16/2015 12:48 PM EDT Hospital Encounter [facility] [address] [place] [address] Flaco Damon MD [address] [place] [address] [address] [place] [address] Discharge Disposition: Home or Self Care Social [...] MD - 11/16/2015 10:37 AM EDT +++++++++++++++++++++++++++++++++++++++++++++++++++++++++++++++++++ [facility] Discharge Instructions - Following Anesthesia [...] in this encounter H&P Notes * Zeynep Nicholson APRN - 11/16/2015 7:35 AM EDT Chief complaint: [...] post op nausea, HTN. She took Ziac BEREAVEMENT PROGRAM COORDINATOR. History & Physical Past Medical History Diagnosis [...] REDUCTION FOR SYMMETRY (IMPLANTS ORDERED 11/09 PER MD) per Flaco Damon MD Joan O Bovard, APRN 7:35 AM Cosigned by Fadi Rizo MD at 11/20/2015 7:25 AM EDT documented in this encounter Procedure Notes * Flaco Damon MD - 11/16/2015 10:59 AM EDT [facility]/[place]/[facility]/[place], [place] NAME: DIAMANTE EDOUARD [facility]#: [id number] LOCATION/ROOM: [facility] FACILITY: [facility] DICTATOR: Flaco Damon OPERATIVE REPORT Page 1 OPERATIVE REPORT DATE OF OPERATION: 11/16/2015 PREOPERATIVE DIAGNOSIS: History of left breast cancer, mastectomy and reconstruction with tissue shale miner blasting and right macromastia. POSTOPERATIVE DIAGNOSIS: History of left breast cancer, mastectomy and reconstruction with tissue shale miner blasting and a right macromastia. PROCEDURES: 1. Left second stage breast reconstruction with removal of tissue shale miner blasting replacement with permanent silicone implant open periprosthetic capsulotomy and capsulectomy. 2. Right breast reduction for symmetry. SURGEON: Flaco Damon M.D. CRM DYNAMICS DEVELOPER: Jessy Moreno R.N. ANESTHESIA: General. INDICATIONS FOR PROCEDURE: The patient is a 65-year-old female who presented with left breast cancer at which time she underwent a mastectomy for treatment and therapeutic reasons and had immediate reconstruction with tissue expansion. She has now been fully expanded out and will need her second stage to remove the tissue shale miner blasting and replace it with permanent implants. The [...] capsule. The capsule was sharply opened. The shale miner blasting was then popped and the saline was evac uated and the shale miner blasting was then removed. Using a lighted retractor, [...] from the sterile packaging. This was a [place] MemoryShape medium height moderate profile 530 mL implant, serial #[id number]. This was placed with a no-touch technique [...] Flaco Damon M.D. By: fredy Job ID: [id number] Doc ID: [id number] CC: * Flaco Damon MD - 11/16/2015 10:[address] [facility] OPERATIVE/PROCEDURE NOTE Diamante Edouard November 16, 2015 Body mass index is 33.43 kg/(m^2). PRE-OP DIAGNOSIS: HX: breast cancer History of left mastectomy Disproportion of reconstructed breast POST-OP DIAGNOSIS: HX: breast cancer History of left mastectomy Disproportion of reconstructed breast PROCEDURE(S): Procedure(s): LEFT BREAST STAGE 2 RIGHT BREAST REDUCTION FOR SYMMETRY SURGEON(S): Surgeon(s) and Role: * Flaco Damon MD - Primary CRM DYNAMICS DEVELOPER(S): Nayan Moreno RN ANESTHESIA: General SPECIMENS: ID [...] until the child is discharged. If your takes a special [...] eye makeup) lotion, powder, or deodorant. Nail south african must be removed if south african is on operative extremity. Please do not shave operative extremity or near the operative extremity. 15. If you have a Living Will and Durable Power of [employer] for Healthcare, please bring a copy. 16. Notify your Surgeon if you develop any illness between now and surgery time, cough, cold, fever, sore throat, nausea, vomiting, rash, etc. 17. Bring your photo ID and insurance card. If your insurance coverage requires a co-payment or deductible, please bring the payment with you. We accept Visa, MasterCard, TrueAbility and [employer] credit cards. Our Customer Service Representatives will be available by telephone for any questions regarding financial issues at [phone]. 18. If you wear CPAP or BIPAP, [...] any questions please call the: [facility] at [phone] documented in this encounter Plan of Treatment Upcoming Encounters Date Type Department Care Team (Late st Contact Info) Description 05/24/2024 10:30 AM EST Office Visit [facility] [address] [place] [phone] Nikolas Jha DPM [address] [place] [address] [address] [place] [phone] documented as of this encounter Procedures [...] Number ?Collected Date/Time ? Received Date/Time ? [id number] ? 11/16/15 10:08 EDT ?11/17/15 09:03 EDT [...] tissue with no masses or lesions identified. Ship/Rec/Doc Control sections are ? submitted in four cassettes. / TE ? MMY/DH ? Microscopic Description ? Microscopic examination is performed and the findings corroborate the ? diagnosis. [facility] 11/16/2015 10:0 8 AM EDT us Flaco Damon MD PATHOLOGY ORDERABLES Final Result [facility] [address] [place] [address] documented in this encounter Visit Diagnoses Not on filedocumented in this encounter Administered Medications Inactive Administered Medications - up to 1 most recent administrations Medication Order MAR Action Action Date Dose Rate Site famotidine (PEPCID) 20 mg/2 mL injection 20 [...] CONTINUOUS, Starting on Fri11/15/15 at 0806, Until Dagmar 11/16/15 at 1648, To be given in SDS/Pre-op Holding Area, Pre-op (Holding/SDS Meds) New Bag 11/16/2015 9:59 AM EDT oxyCODONE (ROXICODONE) immediate release tablet 5 mg 5 mg, Oral, PRN, 2 doses, Starting on Dagmar 11/16/15 at 1035, Until Dagmar 11/16/15 at 1648, Pain, If patient has received IV acetaminophen (OFIRMEV): Give 5 mg if patient able to take oral medication. Reassess pain in 20 minutes and give additional 5 mg if pain not improved., PACU Given 11/16/2015 11:31 AM EDT 5 mg scopolamine (TRANSDERM-SCOP) 1.5 mg (1 mg over 3 days) 1 Patch 1 Patch, Transdermal, EVERY 72 HOURS, First dose on Dagmar 11/16/15 at 0745, Until Discontinued, Remove old patch at time of administration., Administer over 24 Hours, Pre-op (Holding/SDS Meds) Patch Applied 11/16/2015 7:51 AM EDT 1 Patch Left Ear documented in this encounter Active and Recently [...] 1,000 mg, Topical, ONCE, 1 dose, On Fri11/16/15 at 0830, VESICANT , Pre-op (Holding/SDS Meds) 0829 (Given - Provid er: Karely Fletcher MD) PRN Medication Order 11/14/2015 11/15/2015 11/16/2015 bupivacaine-EPINEPHrine 0.5 %-1:200,000 injection (CANCELED) ONCE PRN, 1 dose, Starting on Fri11/16/15 at 0844, Until Fri11/16/15 at 0844, Intra-op [...] Carolyn Cesar RN)1121 (Given - Provider: Carolyn eCsar RN)1126 (Given - Provider: Carolyn Cesar RN)1131 (Given - Provider: Carolyn Cesar RN) lactated ringers infusion (CANCELED) Intravenous, at 50 mL/hr, PREPROCEDURE CONTINUOUS, Starting on Fri11/15/15 at 0806, Until Dagmar 11/16/15 at 1648, To be given in SDS/Pre-op [...] mg, Oral, PRN, 2 doses, Starting on Dagmar 11/16/15 at 1035, Until Dagmar 11/16/15 at 1648, Pain, If patient has received [...] acetaminophen (OFIRMEV) infusion 1,000 mg 1 11/16/2015 bupivacaine-EPINEPHrine 0.5 %-1:200,000 injection 1 11/16/2015 HYDROmorphone (DILAUDID) injection 0.25 mg 1 11/16/2015 ondansetron (ZOFRAN) 4 mg/2 mL injection 4 mg 1 11/16/2015 ondansetron (ZOFRAN-ODT) dis integrating tablet 8 mg 1 11/16/2015 oxyCODONE-acetaminophen (PER COCET) 5-325 mg per tablet 1 Tab 1 11/16/2015 promethazine (PHENERGAN) inj ection 6.25-12.5 mg 1 11/16/2015 vancomycin (VANCOCIN) 1,000 mg in sodium chloride 0.9 % 500 mL irrigation 1 11/16/2015 vancomycin (VANCOCIN) recons tituted injection 1,000 mg 1 11/16/2015 metoprolol (LOPRESSOR) tablet 25 mg 1 11/14 Lab Orders Without Results Count Last Ordered D ate First Ordered Date PATHOLOGY TISSUE REQUEST 1 11/16/2015 documented in this encounter Care Teams Dust Control Engineer Relationship Specialty Start Date End Date Carlos Manuel Barragan [facility] [address] [place] [address] PCP - General 07/03/10 documented as of this encounter
--- OUTSIDE RECORDS SUMMARY | 2024-05-04 22:55 | XMS_ITS | Encounter Summary ---
Author Organization [place] [address] Care Team Providers Care Crucible Furnace Tender Name Role Phone Carlos Manuel Barragan Primary Care Provider [phone] Reason for Referral * DEXA (Routine) - Closed Specialty Diagnoses / Procedures Referred By Heather t Referred To Contact Radiology Diagnoses History of breast cancer Post-menopausal Long-term use of high-risk medication Procedures DX BONE DENSITY AXIAL SKELETON Dany Crouch MD Phone: tel: fax: Referral ID Status Reason Start Date Expiration Date Visits Re quested Visits Authorized [id number] Closed 01/10/2016 01/09/2017 1 1 Reason for Visit * DEXA (Routine) - Closed Specialty Diagnoses / Procedures Referred By Heather t Referred To Contact Radiology Diagnoses History of breast cancer Post-menopausal Long-term use of high-risk medication Procedures DX BONE DENSITY AXIAL SKELETON Dany Crouch MD Phone: tel: fax: Referral ID Status Reason Start Date Expiration Date Visits Re quested Visits Authorized [id number] Closed 01/10/2016 01/09/2017 1 1 Encounter Details Date Type Department Care Team (Latest Contact Info) Description 05/17/2016 11:55 AM EST - 05/17/2016 12:30 PM EST Hospital Encounter [place] [facility] [place] [address] Dany Crouch MD [address] [place] [address] [place] [address] History of breast cancer; Post-menopausal; Long-term use of high-risk medication Discharge Disposition: Home or Self Care Social [...] AM EST Office Visit [facility] [address] [place] [phone] Nikolas Jha DPM [address] [facility] [address] [address] [place] [phone] documented as of this encounter Procedures Procedure Name Priority Date/Time Associated Diagnosis Comments DX BONE DENSITY AXIAL SKELETON Routine 05/17/2016 12:38 PM EST History of breast cancer Post-menopausal Long-term use of high-risk medication documented in this encounter Results * DX BONE DENSITY AXIAL SKELETON (05/17/2016 12:38 PM EST) Anatomical Region Laterality Modality Dexa Scan 05/17/2016 Narrative 05/20/2016 6:25 AM EST Indication: The patient is a female age 65 or older who requires a bone density assessment. Study was performed on [employer] Bone Density: Region ?BMD ? T-score ? [...] Jennifer Vides PA-C,CCD on 05/17/2016 12:58:00 PM. Dany Crouch MD IMG DEXA ORDERABLES Final R esult documented in this encounter Visit Diagnoses Diagnosis History of breast cancer Personal history of malignant neoplasm of breast Post-menopausal Asymptomatic postmenopausal status (age-related) (natural) Long-term use of high-risk medication documented in this encounter Care Teams Crucible Furnace Tender Relationship Specialty Start Date End Date Carlos Manuel Barragan [address] [place] [id number] [place] [address] PCP - General 07/03/10 documented as of this encounter
--- OUTSIDE RECORDS SUMMARY | 2024-05-04 22:55 | XMS_ITS | Encounter Summary ---
Author Organization [place] [address] Care Team Providers Care Medical Physiologist Name Role Phone Carlos Manuel Barragan Primary Care Provider [phone] Reason for Visit * Reason Onset Date Comments Other 03/29/2015 Encounter Details Date Type Department Care Team (Late st Contact Info) Description 03/29/2015 Telephone [facility] [place] [address] Cheri Reyes Other Social History Tobacco Use Types Packs/Day [...] encounter Miscellaneous Notes * Telephone Encounter - Kristine Hill RN - 03/29/2015 1:55 PM EST Patient contacted. Juany was confused and is awaiting the Oncotype results. Explained that we will contact her once her results are back. * Telephone Encounter - Cheri Reyes - 03/29/2015 11:20 AM EST Juany called in for her receptor results (HER2). Can you call her to discuss? Also, she is looking for her surgery date. I explained Greer handles that so we may want to check with Greer on this . documented in this encounter Plan of Treatment Upcoming Encounters Date Type Department Care Team (Late st Contact Info) Description 05/24/2024 10:30 AM EST Office Visit [facility] [address] [place] [phone] Nikolas Jha DPM [address] [place] [address] [address] [place] [phone] documented as of this encounter Visit Diagnoses Not on filedocumented in this encounter Care Teams Medical Physiologist Relationship Specialty Start Date End Date Carlos Manuel Barragan [address] [facility] [address] [facility] [place] [address] PCP - General 07/03/10 documented as of this encounter
--- OUTSIDE RECORDS SUMMARY | 2024-05-04 22:55 | XMS_ITS | Encounter Summary ---
Author Organization [place] [address] Care Team Providers Care Primer Charger Name Role Phone Carlos Manuel Barragan Primary Care Provider [phone] Reason for Referral * Mammography (Routine) - Closed Specialty Diagnoses / Procedures Referred By Heather santos Referred To Contact Radiology Diagnoses History of reduction surgery of right breast Procedures MM MAMMO DIGITAL DIAGNOSTIC W CAD RIGHT Dany Crouch MD Phone: tel: fax: Referral ID Status Reason Start Date Expiration Date Visits Re quested Visits Authorized [id number] Closed 01/10/2016 01/09/2017 1 1 Reason for Visit * Mammography (Routine) - Closed Specialty Diagnoses / Procedures Referred By Heather santos Referred To Contact Radiology Diagnoses History of reduction surgery of right breast Procedures MM MAMMO DIGITAL DIAGNOSTIC W CAD RIGHT Dany Crouch MD Phone: tel: fax: Referral ID Status Reason Start Date Expiration Date Visits Re quested Visits Authorized [id number] Closed 01/10/2016 01/09/2017 1 1 Encounter Details Date Type Department Care Team (Latest Contact Info) Description 05/17/2016 12:31 PM EST - 05/17/2016 11:59 PM EST Hospital Encounter [facility] [place] [address] Dany Crouch MD [address] [facility] [place] [address] History of reduction surgery of right breast Discharge Disposition: Home or Self Care [...] 10:30 AM EST Office Visit [facility] [place] [address] [place] [address] [place] [phone] Nikolas Jha DPM [address] [facility] [address] [place] [address] documented as of this encounter Procedures Procedure Name Priority Date/Time Associated Diagnosis Comments MM MAMMO DIGITAL DIAGNOSTIC W CAD RIGHT Routine 05/17/2016 1:15 PM EST History of reduction surgery of right breast documented in this encounter Results * MM MAMMO DIGITAL DIAGNOSTIC W CAD RIGHT (05/17/2016 1:15 PM EST) Anatomical Region Laterality Modality Breast Right Mammography 05/21/2016 10:4 8 AM EST Impressions 05/21/2016 11:05 AM EST : Negative ??([id number]) ~ RECOMMENDATION: Routine screening mammogram of the [...] to prior studies the most recent being 4-4-16 ~ us Dany Crouch MD IMG MAMMOGRAPHY ORDERABLES Final Result documented in this encounter Visit Diagnoses Diagnosis History of reduction surgery of right breast documented in this encounter Care Teams Primer Charger Relationship Specialty Start Date End Date Carlos Manuel Barragan [address] [place] [address] [place] [address] PCP - General 07/03/10 documented as of this encounter
--- OUTSIDE RECORDS SUMMARY | 2024-05-04 22:55 | XMS_ITS | Encounter Summary ---
Author Organization [place] [address] Care Team Providers Care Bottler Helper Name Role Phone Carlos Manuel Barragan Primary Care Provider [phone] Reason for Visit * Reason Onset Date Comments Other 03/19/2016 Arimidex refill [facility] Encounter Details Date Type Department Care Team (Late st Contact Info) Description 03/19/2016 Telephone [facility] [place] [address] [facility] [address] [place] [address] Greer Rosario RMA Other (Arimidex refill esc[facility]ed to [facility]) Social History Tobacco Use Types Packs/Day Years [...] Tab by mouth daily. 90 Tab 3 03/19/2016 07/27/2018 documented in this encounter Miscellaneous Notes * Telephone Encounter - Greer Rosario RMA - 03/19/2016 2:58 PM EDT Per pt request Arimidex refill [facility] to [facility]. documented in this encounter Plan of Treatment Upcoming Encounters Date Type Department Care Team (Late st Contact Info) Description 05/24/2024 10:30 AM EST Office Visit [facility] [place] [address] [facility] [address] [place] [address] Nikolas Jha DPM [address] [facility] [address] [place] [address] documented as of this encounter Visit Diagnoses Diagnosis Family history of carcinoma in situ of breast- Primary Family history of malignant neoplasm of breast History of breast cancer Personal history of malignant neoplasm of breast documented in this encounter Care Teams Bottler Helper Relationship Specialty Start Date End Date Carlos Manuel Barragan [address] [place] [facility] [address] [place] [address] PCP - General 07/03/10 documented as of this encounter
--- OUTSIDE RECORDS SUMMARY | 2024-05-04 22:55 | XMS_ITS | Encounter Summary ---
Author Organization [place] [address] Care Team Providers Care Manager Community Outreach Name Role Phone Carlos Manuel Barragan Primary Care Provider [phone] Reason for Visit * Mammography (Routine) - Closed Specialty Diagnoses / Procedures Referred By Heather santos Referred To Contact Radiology Diagnoses Visit for screening mammogram Procedures MM MAMMO DIGITAL SCREENING W CAD RIGHT Dany Crouch MD Phone: tel: fax: Referral ID Status Reason Start Date Expiration Date Visits Re quested Visits Authorized [id number] Closed 08/25/2015 08/24/2016 1 1 Encounter Details Date Type Department Care Team (Latest Contact Info) Description 08/28/2015 4:30 PM EDT - 08/28/2015 11:59 PM EDT Hospital Encounter [facility] [place] [address] Dany Crouch MD [address] [place] [address] [place] [address] Visit for screening mammogram Discharge Disposition: Home or Self Care Social [...] 10:30 AM EST Office Visit [facility] [address] [place] [phone] Nikolas Jha DPM [address] [place] [address] [address] [place] [address] documented as of this encounter Procedures Procedure Name Priority Date/Time Associated Diagnosis Comments MM MAMMO DIGITAL SCREENING W CAD RIGHT Routine 08/28/2015 4:54 PM EDT Visit for screening mammogram documented in this encounter Results * MM MAMMO DIGITAL SCREENING W CAD RIGHT (08/28/2015 4:54 PM EDT) Anatomical Region Laterality Modality Breast Right Mammography 08/30/2015 12:5 4 PM EDT Impressions 08/31/2015 4:09 PM EDT : Negative ??([id number]) ~ RECOMMENDATION: Routine screening mammogram of the right breast in 1 year. ~ * The patient with a palpable abnormality, [...] reviewed by a Radiologist and CAD. Narrative 08/31/2015 4:09 PM EDT Procedure:MM MAMMO DIGITAL SCREENING W CAD RIGHT ~ Reason for exam: history of breast cancer, mastectomy. ~ MM MAMMO DIG SCREEN CAD RIGHT CC and MLO view(s) were taken of the right breast. The breast tissue is heterogeneously dense. ??This may lower the sensitivity of mammography. ??Compared to prior studies the most recent being 02-03-15 ~ Dany Crouch MD IMG MAMMOGRAPHY ORDERABLES Final Result documented in this encounter Visit Diagnoses Diagnosis Visit for screening mammogram Other screening mammogram documented in this encounter Care Teams Manager Community Outreach Relationship Specialty Start Date End Date Carlos Manuel Barragan [address] [facility] [address] [place] [address] PCP - General 07/03/10 documented as of this encounter
--- OUTSIDE RECORDS SUMMARY | 2024-05-04 22:55 | XMS_ITS | Encounter Summary ---
Author Organization [facility] Address [facility] [place] [address] Care Team Providers Care Payer Specialist Name Role Phone Carlos Manuel Barragan Primary Care Provider [phone] Encounter Details Date Type Department Care Team (Latest Contact Info) Description 05/24/2015 11:10 AM EST - 05/24/2015 11:59 PM EST Hospital Encounter [facility] [place] [address] Secondary hypertension, unspecified (Primary Dx) Discharge Disposition: Home or Self [...] 10:30 AM EST Office Visit [facility] [place] [address] [place] [address] Nikolas Jha, DPMitzi [address] [place] [address] Scheduled Orders Name Type Priority Associated Diagnoses Orde r Schedule OP VENIPUNCTURE CHARGE Lab Timed Secondary hypertension, unspecified One Time for 1 Occurrences starting 05/24/2015 until 05/24/2015 documented as of this encounter Procedures Procedure Name Priority Date/Time Associated Diagnosis Comments LDL, CALCULATED Routine 05/24/2015 11:15 AM EST LIPID PANEL REFLEX Routine 05/24/2015 11 :15 AM EST Secondary hypertension, unspecified COMPREHENSIVE METABOLIC PANEL Routine 05/24/2015 11:15 AM EST Secondary hypertension, unspecified documented in this encounter Results * (ABNORMAL) LDL, CALCULATED (05/24/2015 11:15 AM EST) LDL Calculated 118(H) <=100 mg/dL [facility] Comment: ??< 100 ?Optimal 100 - 129 ? Near or above optimal 130 - 159 ? Borderline High 160 - 189 ? High >= 190 ?Very High Blood specimen (specimen) 05/24/2015 11:15 AM EST 05/24/2015 11:15 AM EST R Bassem Barragan CHEMISTRY ORDERABLES Final Resu lt [facility] [address] [place] [address] * LIPID PANEL REFLEX (05/24/2015 11:15 AM EST) Cholesterol 200 <=200 mg/dL [facility] Comment: < 200 ?Desirable 200 - 239 ? Borderline High >= 240 ?High Triglyceride 104 <=150 mg/dL [facility] Comment: < 150 ? Normal 150 - 199 ?Borderline High 200 - 499 ?High ??>= 500 ? Very High HDL 61 >=40 mg/dL [facility] Comment: ?? > 60 ?Optimal 40 - 60 ?Acceptable ?? < 40 ?Low Blood specimen (specimen) UPPER LIMB STRUCTURE / Unknown 05/24/2015 11:15 AM EST 05/24/2015 11:15 AM EST [facility] Bassem Barragan CHEMISTRY ORDERABLES Final Resu lt Performing Organization Address City/[facility] Co de Phone Number [facility] [address] [place] [address] * (ABNORMAL) COMPREHENSIVE METABOLIC PANEL (05/24/2015 11:15 AM EST) Pathologist [facility] Sodium 141 136 - 145 mmol/L [facility] Potassium 4.0 3.5 - 5.0 mmol/L [facility] Chloride 103 98 - 107 mmol/L [facility] Total CO2 24 22 - 29 mmol/L [facility] Anion Gap 14 7 - 16 mmol/L [facility] Calcium 9.9 8.8 - 10.2 mg/dL [facility] Glucose Lvl 105(H) 82 - 100 mg/dL [facility] BUN 15 8 - 23 mg/dL [facility] Creatinine 0.90 0.51 - 1.30 mg/dL [facility] Albumin 4.4 3.2 - 4.6 gm/dL [facility] Total Protein 7.1 6.4 - 8.3 gm/dL [facility] Bili Total 0.6 0.1 - 1.3 mg/dL [facility] AST 20 <=40 IU/L [facility] ALT 27 <=41 IU/L [facility] Alk Phos 75 35 - 104 IU/L [facility] GFR Afr Am >60 [facility] GFR Non Afr Am >60 [facility] Blood specimen (specimen) UPPER LIMB STRUCTURE / Unknown 05/24/2015 11:15 AM EST 05/24/2015 11:15 AM EST Carlos Manuel Barragan CHEMISTRY ORDERABLES Edited Res ult - Final [facility] [address] [place] [address] documented in this encounter Visit Diagnoses Diagnosis Secondary hypertension, unspecified- Primary documented in this encounter Care Teams Payer Specialist Relationship Specialty Start Date End Date Carlos Manuel Barragan [facility] [address] [place] [address] PCP - General 07/03/10 documented as of this encounter
--- OUTSIDE RECORDS SUMMARY | 2024-05-04 22:55 | XMS_ITS | Encounter Summary ---
Author Organization [place] [address] Care Team Providers Care Home Economics Teacher Name Role Phone Carlos Manuel Barragan Primary Care Provider [phone] Reason for Visit * Reason Onset Date Comments Other 04/12/2015 Encounter Details Date Type Department Care Team (Late st Contact Info) Description 04/12/2015 Telephone [facility] [address] [facility] [facility] [address] [place] [address] Greer Rosario RMA Other Social [...] on file documented as of this encounter Ordered Prescriptions Prescription Sig Dispense Quantity Refills Last Filled Start Date End Date anastrozole (ARIMIDEX) 1 mg Oral TabletIndications:M alignant neoplasm of left female breast, unspecified site of breast Take 1 Tab by mouth daily. 90 Tab 3 04/12/2015 07/29/2019 documented in this encounter Miscellaneous Notes * Telephone Encounter - Greer Rosario RMA - 04/12/2015 1:25 PM EST Per Anika Horne at the breast center/Dr. Crouch's order escribed Arimidex to [facility] documented in this encounter Plan of Treatment Upcoming Encounters Date Type Department Care Team (Late st Contact Info) Description 05/24/2024 10:30 AM EST Office Visit [facility] [address] [place] [address] Nikolas Jha, DPMitzi [address] [place] [address] documented as of this encounter Visit Diagnoses Diagnosis Malignant neoplasm of left female breast, unspecified site of breast- Primary documented in this encounter Care Teams Home Economics Teacher Relationship Specialty Start Date End Date Carlos Manuel Barragan [address] [facility] [address] [place] [address] PCP - General 07/03/10 documented as of this encounter
--- OUTSIDE RECORDS SUMMARY | 2024-05-04 22:55 | XMS_ITS | Encounter Summary ---
Author Organization [place] [address] Care Team Providers Care Drywall Stripper Name Role Phone Carlos Manuel Barragan Primary Care Provider [phone] Reason for Visit * Reason Comments Gynecologic Exam Encounter Details Date Type Department Care Team (Latest Contact Info) Description 02/06/2016 9:00 AM EDT [facility] Visit [facility] [address] [place] [address] Natasha Akers MD [address] [place], [place] [id number] Well woman exam with routine gynecological exam (Primary Dx); Malignant neoplasm of left female breast, unspecified site of breast; Menopausal symptoms Social History Tobacco Use Types Packs/Day Years [...] Sign Reading Time Taken Comments Blood Pressure 122/76 02/06/2016 9:00 AM EDT Pulse - - Temperature - - Respiratory Rate - - Oxygen Saturation - - Inhaled Oxygen Concentration - - Weight 93 kg (205 lb) 02/06/2016 9:00 AM EDT Height 167.6 cm (5' 6 ) 02/06/2016 9:00 AM EDT Body Mass Index 33.09 02/06/2016 9:00 AM EDT documented in this encounter Functional [...] Refills Last Filled Start Date End Date PARoxetine (PAXIL) 10 mg Oral TabletIndications:M enopausal symptoms Take 1 Tab by mouth daily. 30 Tab 2 02/06/2016 09/29/2018 documented in this encounter Progress Notes * Natasha Akers MD - 02/06/2016 9:00 AM EDT Subjective Subjective: Patient ID: Juany Alarcon is a 65 y.o. female. Chief Complaint Patient presents with ??? Gynecologic Exam HPI Pt is a 64 yo here for annual exam S/p Left breast cancer. Now on Arimidex. Just saw Dr Crouch and had exam She is having severe hot flashes and night sweats Mammogram and DEXA scheduled Colonoscopy up to date Has daughter and 2 grandsons Patients past medical, family and social histories were reviewed and updated. There were no changesexcept as noted. Review of Systems ROS were reviewed and all negative except those mentioned in the HPI Objective Objective: Vitals: 02/06/16 0900 BP: 122/76 Weight: 205 lb (93 kg) Height: 5' 6 (1.676 m) Body mass index is 33.09 kg/(m^2). Physical Exam Constitutional: She appears well-developed and well-nourished. Neck: No thyromegaly present. Pulmonary/Chest: Effort normal. Abdominal: Soft. She exhibits no distension and no mass. There is no tenderness. Genitourinary: Vagina normal and uterus normal. There is no rash, tenderness or lesion on the rightlabia. There is no rash, tenderness or lesion on the left labia. Cervix exhibits no motion tenderness and no friability. Right adnexum displays no mass, no tenderness and no fullness. Left adnexum displays no mass, no tenderness and no fullness. Musculoskeletal: She exhibits no edema. Assessment and Plan: Juany was seen today for gynecologic exam. Diagnoses and all orders for this visit: Well woman exam with routine gynecological exam Orders: - Cytology, Lusterer Request (PAP Only); Future Malignant neoplasm of left female breast, unspecified site of breast Menopausal symptoms Orders: - PARoxetine (PAXIL) 10 mg Oral Tablet; Take 1 Tab by mouth daily. Return in about 1 year (around 02/05/2017), or if symptoms worsen or fail to improve. documented in this encounter Plan of Treatment Upcoming Encounters Date Type Department Care Team (Late st Contact Info) Description 05/24/2024 10:30 AM EST Office Visit [facility] [address] [place] [address] Nikolas Jha DPM [address] [place] [address] [address] [place] [address] Scheduled Orders Name Type Priority Associated Diagnoses Orde r Schedule GOLF [employer]ANGE ATTENDANT CYTOLOGY REQUEST (PAP ONLY) Lab Routine Well woman exam with routine gynecological exam 1 Occurrences starting 02/06/2016 until 08/06/2016 documented as of this encounter Visit Diagnoses Diagnosis Well woman exam with routine gynecological exam- Primary Routine gynecological examination Malignant neoplasm of left female breast, unspecified site of breast Menopausal symptoms Symptomatic menopausal or female climacteric states documented in this encounter Historical Medications * This list may reflect changes made after this encounter. FOLIC ACID/MULTIVIT-VT N/LUTEIN (CENTRUM SILVER ORAL) Take by mouth. Reported on 07/24/2016 09/29/2018 vitamin E 1,000 unit Oral Capsule Take 1,000 Units by mouth daily. Reported on 07/29/2016 09/29/2018 added in this encounter Care Teams Drywall Stripper Relationship Specialty Start Date End Date Carlos Manuel Barragan [address] [place] [address] [address] [facility] [address] PCP - General 07/03/10 documented as of this encounter
--- OUTSIDE RECORDS SUMMARY | 2024-05-04 22:56 | XMS_ITS | Encounter Summary ---
Author Organization [place] [address] Care Team Providers Care Tire Fabric Inspector Name Role Phone Carlos Manuel Barragan Primary Care Provider [phone] Reason for Visit * MRI/CAT Scan (Routine) - Closed Specialty Diagnoses / Procedures Referred By Contac t Referred To Contact Radiology Diagnoses Inverted nipple Procedures MRI BREAST BILATERAL W WO CONTRAST W CAD Natasha Akers MD [address] [place], [place] [address] Phone: tel: fax: Referral ID Status Reason Start Date Expiration Date Visits Re quested Visits Authorized [id number] Closed 01/26/2015 01/26/2016 1 1 Encounter Details Date Type Department Care Team (Latest Contact Info) Description 01/26/2015 10:58 AM EDT - 01/26/2015 11:59 PM EDT Hospital Encounter [facility] [place] [address] Kwabena Nickerson MD [address] [place] [address] [place] [address] Nipple retraction; Inverted nipple Discharge Disposition: Home or Self Care Social [...] Eliquis Take 81 mg by mouth daily. montelukast (SINGULAIR) 10 mg Oral Tablet Take 10 mg by mouth every evening. documented as of this encounter Discharge Disposition Disposition Code Departure Means Destination Home or Self Care documented in this encounter Plan of Treatment Upcoming Encounters Date Type Department Care Team (Late st Contact Info) Description 05/24/2024 10:30 AM EST Office Visit [facility] [address] [place] [address] Nikolas Jha DPM [address] [place] [address] [address] [place] [address] documented as of this encounter Procedures Procedure Name Priority Date/Time Associated Diagnosis Comments MRI BREAST BILATERAL W WO CONTRAST W CAD Routine 01/26/2015 12:57 PM EDT Nipple retraction documented in this encounter Results * MRI BREAST BILATERAL W WO CONTRAST W CAD (01/26/2015 12:57 PM EDT) Anatomical Region Laterality Modality Breast Bilateral Magnetic Resonan ce 01/27/2015 3:05 PM EDT Impressions 01/27/2015 5:00 PM EDT : Incomplete-need additional imaging evaluation ([id number]) MRI findings are worrisome for a multicentric malignancy involving the lower outer quadrant of the left breast. ?? Beginning at the nipple axis and extending inferior, posterior and lateral there are multiple small enhancing masses and areas of clumped non mass like enhancement. ?? There is extension to and suspected involvement of the retroareolar and nipple region. ~ There are no suspicious findings in the contralateral right breast. ~ An attempt at second look ultrasound with more attention to the posterior and lateral left breast is recommended in an attempt to identify an area that would be amenable to ultrasound guided biopsy to make a definitive diagnosis. ?? If this is not possible, attempted MRI guided biopsy could be performed. ~ RECOMMENDATION: Ultrasound of the left breast. Narrative 01/27/2015 5:00 PM EDT MRI BREAST BILATERAL W WO CONTRAST W CAD Technologist: Elieser Lugo BILATERAL BREAST MRI WITH AND WITHOUT CONTRAST 01-26-15: ~ HISTORY: ?? 64-year-old female who presented recently with nipple retraction. ?? The patient had a left diagnostic mammogram and ultrasound on January 23, which showed no definite abnormality. ??There was some heterogeneous tissue in the inferior retroareolar left breast but no discrete masses. ??MRI was recommended because of the patient's clinical symptoms. ~ The patient was placed prone in a dedicated breast coil and multiplanar imaging was performed both before and after administration of 19 mL of MultiHance. ?? Precontrast axial T1 and T2 sequences were obtained. ?? Dynamic axial imaging is performed after administration of MultiHance. Post contrast sagittal views are submitted. ?? Imaging interpretation is aided with [employer]. ??There are no prior studies available for comparison. ?? The patient is post menopausal but taking estrogen replacement. ~ On the preliminary non contrast sequences, the underlying breast parenchyma is heterogeneously dense. ??No focal findings are present prior to contrast administration. ~ After the administration of Multihance, there is minimal symmetric background glandular enhancement. ??In the left breast beginning at the nipple axis and extending inferiorly, there are multiple areas of irregular mass like enhancement. ??In addition, there are non mass like areas of bridging enhancement extending throughout the region. ??This asymmetric mass like and clumped enhancement extends approximately 10 cm from behind the nipple posteriorly and ??approximately 5.5 cm in superior to inferior extent. ??The largest areas of mass like enhancement are in the mid posterior retroareolar axis from the 12 to 3 o'clock positions. ??The largest mass like area is in the deep retroareolar position measuring 18 mm. ?? This abnormal enhancement does extend to and involve the inverted nipple region. ?? No significant enhancement of the overlying skin outside the nipple areolar complex is identified. ~ No suspicious areas of enhancement or patterns of enhancement are identified in the right breast. ~ Because of the patient's size, the axillary regions are not optimally visualized and are out of the plane of the breast coil. ??No internal mammary chain adenopathy is identified. ~ us Natasha Akers MD IMG MRI BREAST OR DERABLES Final Result documented in this encounter Visit Diagnoses Diagnosis Nipple retraction Other sign and symptom in breast Inverted nipple Other sign and symptom in breast documented in this encounter Administered Medications Inactive Administered Medications - up to 1 most recent administrations Medication Order MAR Action Action Date Dose Rate Site Gadobenate Dimeglumine (MULTIHANCE) Soln 19 mL 19 mL, Intravenous, ONCE PRN, 1 dose, Starting on Dagmar 01/26/15 at 1243, Until Dagmar 01/26/15 at 1245, Other, Radiology Procedure, VESICANT , MRI (Contrasts) Given 01/26/2015 12:45 PM EDT 19 mL documented in this encounter Orders Medications Ordered That Binu ht Not Have Been Administered Count Last Ordered Date First Ordered Date Gadobenate Dimeglumine (MULT IHANCE) Soln 19 mL 1 01/26/2015 documented in this encounter Care Teams Tire Fabric Inspector Relationship Specialty Start Date End Date Carlos Manuel Barragan [address] [facility] [address] [place] [address] PCP - General 07/03/10 documented as of this encounter
--- OUTSIDE RECORDS SUMMARY | 2024-05-04 22:56 | XMS_ITS | Encounter Summary ---
Author Organization [place] [address] Care Team Providers Care Pump House Engineer Name Role Phone Carlos Manuel Barragan Primary Care Provider [phone] Reason for Referral * Consultation (Routine) - Closed Specialty Diagnoses / Procedures Referred By Heather t Referred To Contact Obstetrics Diagnoses Malignant neoplasm of left female breast, unspecified site of breast Dany Crouch MD Phone: tel: fax: [place] [address] Phone: tel: fax: Referral ID Status Reason Start Date Expiration Date Visits Re quested Visits Authorized [id number] Closed 02/13/2015 02/13/2016 1 1 * Consultation (Routine) - Closed Specialty Diagnoses / Procedures Referred By Contniurka t Referred To Contact Obstetrics Diagnoses Malignant neoplasm of left female breast, unspecified site of breast Dany Crouch MD Phone: tel: fax: [place] [address] Phone: tel: fax: Referral ID Status Reason Start Date Expiration Date V isits Requested Visits Authorized [id number] Closed Specialty Services Required 02/13/2015 02/13/2016 1 1 Reason for Visit * Reason Comments Breast Cancer Encounter Details Date Type Department Care Team (Latest Contact Info) Description 02/13/2015 2:40 PM EDT - 02/13/2015 3:25 PM EDT Hospital Encounter [facility] [place] [address] Dany Crouch MD [address] [place] [address] [address] [place] [address] Malignant neoplasm of left female breast, unspecified site of breast (HCC) (Primary Dx); Abnormal mammogram Discharge Disposition: Home or Self Care [...] Sign Reading Time Taken Comments Blood Pressure 120/74 02/13/2015 2:52 PM EDT Pulse 80 02/13/2015 2:52 PM EDT Temperature 36.7 ??C (98.1 ??F) 02/13/2015 2:52 PM ED T Respiratory Rate - - Oxygen Saturation - - Inhaled Oxygen Concentration - - Weight 91.6 kg (202 lb) 02/13/2015 2:52 PM EDT Height 167.6 cm (5' 6 ) 02/13/2015 2:52 PM EDT Body Mass Index 32.6 02/13/2015 2:52 PM EDT documented in this encounter Medications [...] documented in this encounter Progress Notes * Jami Head RN - 02/13/2015 2:56 PM EDT Juany seen in breast clinic today for newly diagnosis of Left breast ILC - ER pending, [place] pending, HER2 pending. Reviewed medical and family history. CBE per Dr. Crouch. Reviewed mammogram and breast MRI. P: Knowledge deficit related to breast cancer; anxiety related to diagnosis of LC breast cancer. G: Educate patient, and daughter - relieve anxiety. I: Discussed future treatment. Discussed surgical options mastectomy with or without reconstructionvs lumpectomy with radiation risk and benefits. Discussed possible neoadjuvant chemotherapy, risk and benefits. Discussed hormone receptor and HER2, pending. Discussed Oncotype, results and benefits.Discussed SLNB and surgical biopsy, risk and benefits. Discussed Genetic testing benefits. Discussed AI therapy, risk and benefits. Discussed taking Vitamin D, benefits. Emotional support provided. Repeat surgical core biopsy and SLNB Hormone receptor - pending Future mastectomy with or without reconstruction To see Genetic counselors Begin taking Vitamin D 3 Cancer Support [facility] information given - patient states in folder she already recieved * Dany Crouch MD - 02/13/2015 2:53 PM EDT Subjective: Ms. Alarcon is here for a scheduled routine follow-up visit History of Present Illness The patient is a 64 y.o. female who presents with a complaint of Left breast cancer REF by Dr. Graham HPI Pt noticed left breast change about one month ago. She had a natural menopause. No hormones. No breast surgery in the past. No shortness of breath. She has chronic back pain. Sister had breast cancer and Mother had ovarian cancer. No other family members with breast, ovarian, prostate, pancreatic or melanoma cancer. MM MAMMO DIGITAL DIAG CAD LEFT 01/23/15 CC and MLO view(s) were taken of the left breast. Technologist: Fernanda Johnston, [employer] [facility] The breast tissue is heterogeneously dense. This may lower the sensitivity of mammography. No discrete mass. No suspicious calcifications Compared to prior studies the most recent being 09-06-14. ~ IMPRESSION: Incomplete-need additional imaging evaluation (WKF-Hpkrkoyv-1) ~ RECOMMENDATION: Ultrasound of the left breast. MM US BREAST LIMITED LEFT LEFT BREAST ULTRASOUND:01/23/15 ~ History: Patient is a 64 year old female who has noticed left nipple retraction for the last 2 to 3 weeks which has not resolved. She underwent a screening mammogram of September 06, 2014 which is again reviewed. ~ The mammograms obtained today do not definitely show a discrete mass. The patient has heterogeneous tissue. ~ Ultrasound was performed of the left breast by Dr. Nickerson and the technologist. The mid retro-areolar and subareolar regions are targeted along with general scanning of the anterior breast. ~ There is some mild areas of heterogeneous tissue scattered through the breast but a discrete mass to explain nipple retraction is not identified. There is some slight thickening of the antonieta-areolar tissue at the site of retraction along the 6:00 position. However again this does not appear to be a discrete mass. ~ Given the breast changes there is still concern for malignancy. ~ In addition the patient has a family history of a mother with ovarian cancer and a sister with breast cancer. ~ Because of the non-contributory ultrasound and mammograms a follow-up breast MRI is recommended. ~ This was discussed with the patient. The patient is aware that second look imaging maybe necessary depending on MRI findings. ~ IMPRESSION: Incomplete-need additional imaging evaluation (CAB-Wefkpnue-2) ~ Non-contributory imaging in a patient with developing nipple retraction. Recommend Breast MRI. ~ RECOMMENDATION: Breast MRI. ~ , in one month recommended. MRI BREAST BILATERAL W WO CONTRAST W CAD Technologist: Elieser Lugo BILATERAL BREAST MRI WITH AND WITHOUT CONTRAST 01-26-15: ~ HISTORY: 64-year-old female who presented recently with nipple retraction. The patient had a left diagnostic mammogram and ultrasound on January 23, which showed no definite abnormality. There was some heterogeneous tissue in the inferior retroareolar left breast but no discrete masses. MRI was recommended because of the patient's clinical symptoms. ~ The patient was placed prone in a dedicated breast coil and multiplanar imaging was performed both before and after administration of 19 mL of MultiHance. Precontrast axial T1 and T2 sequences were obtained. Dynamic axial imaging is performed after administration of MultiHance. Post contrast sagittal views are submitted. Imaging interpretation is aided with [employer]. There are no prior studies available for comparison. The patient is post menopausal but taking estrogen replacement. ~ On the preliminary non contrast sequences, the underlying breast parenchyma is heterogeneously dense. No focal findings are present prior to contrast administration. ~ After the administration of Multihance, there is minimal symmetric background glandular enhancement. In the left breast beginning at the nipple axis and extending inferiorly, there are multiple areas of irregular mass like enhancement. In addition, there are non mass like areas of bridging enhancement extending throughout the region. This asymmetric mass like and clumped enhancement extends approximately 10 cm from behind the nipple posteriorly and approximately 5.5 cm in superior to inferior extent. The largest areas of mass like enhancement are in the mid posterior retroareolar axis from the 12 to 3 o'clock positions. The largest mass like area is in the deep retroareolar position measuring 18 mm. This abnormal enhancement does extend to and involve the inverted nipple region. No significant enhancement of the overlying skin outside the nipple areolar complex is identified. ~ No suspicious areas of enhancement or patterns of enhancement are identified in the right breast. ~ Because of the patient's size, the axillary regions are not optimally visualized and are out of the plane of the breast coil. No internal mammary chain adenopathy is identified. ~ IMPRESSION: Incomplete-need additional imaging evaluation (ZNW-Lihofgat-2) MRI findings are worrisome for a multicentric malignancy involving the lower outer quadrant of the left breast. Beginning at the nipple axis and extending inferior, posterior and lateral there are multiple small enhancing masses and areas of clumped non mass like enhancement. There is extension to and suspected involvement of the retroareolar and nipple region. ~ There are no suspicious findings in the contralateral right breast. ~ An attempt at second look ultrasound with more attention to the posterior and lateral left breast is recommended in an attempt to identify an area that would be amenable to ultrasound guided biopsy to make a definitive diagnosis. If this is not possible, attempted MRI guided biopsy could be performed. ~ RECOMMENDATION: Ultrasound of the left breast. Past Medical History Diagnosis Date ??? Unspecified sleep apnea cpap at night ??? Hypertension ??? Arthritis ??? Blood transfusion with hip replacement ??? Postoperative nausea and vomiting ??? Breast cancer (HCC) 02/09/15 ILC, grade 1. No receptors at this time (not sufficient tissue) Patient Active Problem List Diagnosis Date Noted ??? Breast cancer (HCC) 02/09/2015 Past Surgical History Procedure Laterality Date ??? Hip surgery 2009 right ??? Cholecystectomy ??? Tonsillectomy ??? Knee surgery 2008 right TKR ??? Breast biopsy Left 02/07/15 Family History Problem Relation Age of Onset ??? Ovarian Cancer Mother 83 ??? Breast Cancer Sister 54 History Social History ??? Marital Status: Spouse Name: N/A Number of Children: N/A ??? Years of Education: N/A Social History Main Topics ??? Smoking status: Never Smoker ??? Smokeless tobacco: None ??? Alcohol Use: Yes Comment: socially ??? Drug Use: No ??? Sexual Activity: None Other Topics Concern ??? None Social History Narrative Current Outpatient Prescriptions Medication Sig Dispense Refill ??? potassium chloride SA (K-DUR;KLOR-CON) 20 mEq Oral Tab Sust.Rel. Particle/Crystal Take 20 mEq by mouth daily. ??? montelukast (SINGULAIR) 10 mg Oral Tablet Take 10 mg by mouth every evening. ??? aspirin 81 mg tablet Take 81 mg by mouth daily. ??? bisoprolol-hydrochlorothiazide (ZIAC) 5-6.25 mg per tablet Take 1 Tab by mouth daily. ??? lactobacillus rhamnosus, GG, (CULTURELLE) 10 billion cell Oral Capsule Take 1 Cap by mouth daily. ??? estradiol-norethindrone (ACTIVELLA) 1-0.5 mg Oral Tablet Take 1 tablet by mouth daily. 90 tablet 3 ??? Diclofenac Potassium (ZIPSOR) 25 mg Cap Take 25 mg by mouth 4 times daily. No current facility-administered medications for this encounter. Allergies Allergen Reactions ??? Morphine ??? Penicillins Review of Systems Musculoskeletal: Positive for back pain. All other systems reviewed and are negative. Objective: Filed Vitals: 02/13/15 1452 BP: 120/74 Pulse: 80 Temp: 98.1 ??F (36.7 ??C) Height: 5' 6 (1.676 m) Weight: 202 lb (91.627 kg) Body mass index is 32.62 kg/(m^2). Physical Exam Constitutional: She is oriented to person, place, and time. She appears well- developed and well-nourished. HENT: Head: Atraumatic. Neck: Neck supple. No thyroid mass present. Cardiovascular: Normal rate and normal heart sounds. Pulmonary/Chest: Breath sounds normal. Right breast exhibits no inverted nipple, no mass, no nippledischarge, no skin change and no tenderness. Left breast exhibits inverted nipple. Left breast exhibits no mass, no nipple discharge, no skin change and no tenderness. Breasts are symmetrical. Left breast thickening noted -fullness on exam Right breast exam negative No lymph nodes palpated Abdominal: Bowel sounds are normal. She exhibits [...] Report Accession Number Collected Date/Time Received Date/Time [id number] 02/07/15 14:11 EDT 02/07/15 14:34 EDT Diagnosis Left breast mass, 2-3:00, core biopsy: - Invasive grade 1 lobular carcinoma, scattered small foci, see comment. Discussed with patient and reviewed imaging and left breast mass core biopsy pathology showing invasive grade 1 lobular carcinoma. Patient was given options for breast preservation with or without radiation vs mastectomy. Patient was told that treatment for the entire body may be necessary prior toany surgical procedure and discussed course of chemotherapy. Same % of recurrence and survival withsegmentectomy with or without radiation vs Mastectomy as long as there is only one site of disease.Reviewed imaging and left breast cancer encompasses half of her breast. Discussed she will need a mastectomy with or with out reconstruction. Discussed factors as age, tumor size and lymph nodes. [place]/HER 2 pending. If there is a role for chemotherapy it would be done first. Discussed SLND, hormone receptors and oncotype testing help to determine role for chemotherapy- oncotype pamphlet given to patient Encouraged to take Vitamin D3 daily Pt to have genetics evaluation and referral placed Surgery to be scheduled Return Post Op Note written by PRASANNA Reeves, acting as scribe for Yamel Crouch MD. Juany was seen today for breast cancer. Diagnoses and associated orders for this visit: Malignant neoplasm of left female breast, unspecified site of breast (HCC) - AMB Referral to Genetic Counseling Abnormal mammogram ???I have reviewed this note and it accurately reflects my work and decisions made during this visit.?? Dany Crouch MD documented in this encounter Miscellaneous Notes * Patient Instructions - Jami Head RN - 02/13/2015 3:[address] Willa Butterfield's patient pet care attendant, will call you with a surgical date and time; she will also be arranging an appointment for Pre Admission Testing (PAT) a day or two ahead of time; if you have not heard from her in a couple of days , you can call her at [phone] extension [phone]. Information given for Oncotype It is recommended that you take Vitamin D3; there are new findings that associate low Vitamin D levels to breast cancer and lung cancer ; The usual over the counter dosage is 4672-3623 units daily.* 1000 units in the Summer and * 2000 units in the Winter To see Genetic counselors today [place] Lymph Node Biopsy [place] lymph node biopsy is a procedure in which a single lymph node is identified, removed, and examined for cancer. Lymph nodes are collections of tissue that help filter infections, cancer cells, and other waste substances from the bloodstream. Certain types of cancer can spread to nearby lymph nodes. The cancer spreads to one lymph node first, and then to others. The first lymph node that your cancer could spread to is called the sentinel lymph node. Examining the sentinel lymph node for cancer can help your caregiver plan future treatment for you. LET YOUR CAREGIVER KNOW ABOUT: ?? Allergies to food or medicine. ?? Medicines taken, including vitamins, herbs, eyedrops, keqb-dkh-mpmawkl medicines, and creams. ?? Use of steroids (by mouth or creams). ?? Previous problems with numbing medicines. ?? History of bleeding problems or blood clots. ?? Previous surgery. ?? Other health problems, including diabetes and kidney problems. ?? Possibility of , if this applies. RISKS AND COMPLICATIONS ?? Infection. ?? Bleeding. ?? Allergic reaction to the dye used for the procedure. ?? Blue staining of the skin where the dye is injected. ?? Damaged lymph vessels, causing a buildup of fluid (lymphedema). ?? Pain or bruising at the biopsy site. BEFORE THE PROCEDURE ?? Stop smoking at least 2 weeks before the procedure. Not smoking will improve your health after the procedure and decrease the chance of getting a wound infection. ?? You may have blood tests to make sure your blood clots normally. ?? Ask your caregiver about changing or stopping your regular medicines. ?? Do not eat or drink anything for 8 hours before the procedure. PROCEDURE ?? You will be given medicine that makes you sleep (general anesthetic). ?? A blue, radioactive dye will be injected near the tumor. The dye will then spread into the sentinel lymph node. ?? A scanner will identify the sentinel lymph node. ?? A small cut (incision) will be made, and the sentinel lymph node will be removed. ?? The sentinel lymph node will be examined in a lab. Sometimes, a sentinel lymph node biopsy is performed during another surgery, such as a mastectomy or lumpectomy for breast cancer. AFTER THE PROCEDURE ?? You will go to a recovery room. ?? You will be monitored for several hours. ?? If complications do not occur, you will be allowed to go home a few hours after the procedure. ?? Your urine may be blue for the next 24 hours. This is normal. It is caused by the dye used during the procedure. ?? Your skin where the dye was injected may be blue for up to 8 weeks. Document Released: 08/03/2012 Document Reviewed: 08/03/2012 ExitCare?? Patient Information ??2014 [employer]. This information is not intended to replace advice given to you by your health care provider. Make sure you discuss any questions you have with your health care provider. [place] Lymph Node Biopsy Care After Refer to this sheet in the next few weeks. These instructions provide you with information on caring for yourself after your procedure. Your caregiver may also give you more specific instructions. Your treatment has been planned according to current medical practices, but problems sometimes occur. Call your caregiver if you have any problems or questions after your procedure. HOME CARE INSTRUCTIONS ?? Avoid vigorous exercise. Ask your caregiver when you can return to your normal activities. ?? You may shower 24 hours after your procedure. It is okay to get your surgical cut (incision) wet. Gently pat the incision dry after you shower. ?? If you are given a surgical bra, wear it for the next 48 hours. You may remove the bra to shower. ?? Keep all follow-up appointments as directed by your caregiver. ?? If you have skin adhesive strips over the incision, do not remove them. They will fall off on their own over time. ?? Only take rcva-ntg-nupqsoe or prescription medicines for pain, fever, or discomfort as directed by your caregiver. ?? You may resume your regular diet. SEEK IMMEDIATE MEDICAL CARE IF: ?? Your pain is not controlled with medicine. ?? You notice redness, swelling, or increased fluid draining from the incision. ?? You feel nauseous or vomit. MAKE SURE YOU: ?? Understand these instructions. ?? Will watch your condition. ?? Will get help right away if you are not doing well or get worse. Document Released: 12/24/2004 Document Revised: 08/03/2012 Document Reviewed: 04/06/2012 ExitCare?? Patient Information ??2015 [employer]. This information is not intended to replace advice given to you by your health care provider. Make sure you discuss any questions you have with your health care provider. documented in this encounter Plan of Treatment Upcoming Encounters Date Type Department Care Team (Late st Contact Info) Description 05/24/2024 10:30 AM EST Office Visit [facility] [address] [place] [phone] Nikolas Jha, SURENDRA [address] [place] [address] [place] [phone] Scheduled Referrals Name Type Priority Associated Diagnoses Orde r Schedule AMB REFERRAL TO GENETIC COUNSELING Outpatient Referral Routine Malignant neoplasm of left female breast, unspecified site of breast (HCC) Ordered: 02/13/2015 AMB REFERRAL TO GENETIC COUNSELING Outpatient Referral Routine Malignant neoplasm of left female breast, unspecified site of breast (HCC) Ordered: 02/13/2015 documented as of this encounter Procedures Procedure Name Priority Date/Time Associated Diagnosis Comments CANCER STAGING 02/17/2015 9:20 AM EDT documented in this encounter Results * CANCER STAGING (02/17/2015 9:20 AM EDT) 02/17/2015 9:20 AM EDT us Unknown Unknown CHEMISTRY ORDERABLES Final Resul t documented in this encounter Visit Diagnoses Diagnosis Malignant neoplasm of left female breast, unspecified site of breast- Primary Abnormal mammogram Abnormal mammogram, unspecified documented in this encounter Care Teams Pump House Engineer Relationship Specialty Start Date End Date Carlos Manuel Barragan [facility] [address] [place] [address] PCP - General 07/03/10 documented as of this encounter
--- OUTSIDE RECORDS SUMMARY | 2024-05-04 22:56 | XMS_ITS | Encounter Summary ---
Author Organization [place] [address] Care Team Providers Care Driver Messenger Name Role Phone Carlos Manuel Barragan Primary Care Provider [phone] Reason for Visit * Reason Onset Date Comments Medication Refill 01/12/2014 Encounter Details Date Type Department Care Team (Late st Contact Info) Description 01/12/2014 Refill [facility] [address] [place] [phone] Raymond Noble MD Medication Refill Social History Tobacco Use Types [...] Refills Last Filled Start Date End Date estradiol-norethin drone (ACTIVELLA) 1-0.5 mg Oral Tablet Take 1 tablet by mouth daily. 90 tablet 3 01/12/2014 02/24/2015 documented in this encounter Plan of Treatment Upcoming Encounters Date Type Department Care Team (Late st Contact Info) Description 05/24/2024 10:30 AM EST Office Visit [facility] [address] [place] [address] Nikolas Jha, DPM [address] [place] [address] documented as of this encounter Visit Diagnoses Not on filedocumented in this encounter Care Teams Driver Messenger Relationship Specialty Start Date End Date Carlos Manuel Barragan [facility] [address] [place] [address] PCP - General 07/03/10 documented as of this encounter
--- OUTSIDE RECORDS SUMMARY | 2024-05-04 22:56 | XMS_ITS | Encounter Summary ---
Author Organization [place] [address] Care Team Providers Care Bilingual Legal Assistant Name Role Phone Carlos Manuel Barragan Primary Care Provider [phone] Encounter Details Date Type Department Care Team (Latest Contact Info) Description 01/12/2014 8:56 AM EDT - 01/12/2014 11:59 PM EDT Hospital Encounter [facility] [place] [id number] Routine gynecological examination Discharge Disposition: Home or Self Care Social [...] Eliquis Take 81 mg by mouth daily. documented as of this encounter Discharge Disposition Disposition Code Departure Means Destination Home or Self Care documented in this encounter Miscellaneous Notes * Miscellaneous - Unknown, Unknown - 01/13/2014 8:57 AM EDT documented in this encounter Plan of Treatment Upcoming Encounters Date Type Department Care Team (Late st Contact Info) Description 05/24/2024 10:30 AM EST Office Visit [facility] [place] [address] [facility] [address] [place] [address] [place] Nikolas Trejo, DPM [address] [place] [address] documented as of this encounter Procedures Procedure Name Priority Date/Time Associated Diagnosis Comments PLANT SCIENCES PROFESSOR CYTOLOGY REPORT Routine 01/12/2014 8 :56 AM EDT documented in this encounter Results * PLANT SCIENCES PROFESSOR CYTOLOGY REPORT (01/12/2014 8:56 AM EDT) Cashier And Waiter/Waitress Cytology Report ? PATIENT NAME:DIAMANTE EDOUARD ? Cashier And Waiter/Waitress Cytology Report ? Accession Number ?Collected Date/Time ? Received Date/Time ? [id number] ? 01/12/14 08:56 EDT ?01/13/14 09:02 EDT ? GY Specimen Source ? Specimen [...] definitive ? therapy. ? Processed using the BYTEGRID automated cytology screening device ? (Mobivox). ? Web Site Manager: TS ?01/18/2014 ? Completed by: ??Nikcy Shay, CT ?(Electronically signed by) ?01/18/2014 ?[facility] Laboratory [facility] 01/12/2014 8:56 AM EDT us Raymond Noble MD PATHOLOGY ORDERABLES Final Resul t [facility] [address] [place] [address] documented in this encounter Visit Diagnoses Diagnosis Routine gynecological examination documented in this encounter Care Teams Bilingual Legal Assistant Relationship Specialty Start Date End Date Carlos Manuel Barragan [address] [facility] [address] [place] [address] PCP - General 07/03/10 documented as of this encounter
--- OUTSIDE RECORDS SUMMARY | 2024-05-04 22:56 | XMS_ITS | Encounter Summary ---
Author Organization [place] [address] Care Team Providers Care Coal Tower Operator Name Role Phone Carlos Manuel Barragan Primary Care Provider [phone] Reason for Referral * MRI/CAT Scan (Routine) - Closed Specialty Diagnoses / Procedures Referred By Contniurka t Referred To Contact Radiology Diagnoses Inverted nipple Procedures MRI BREAST BILATERAL W WO CONTRAST W CAD Natasha Akers MD [address] [place] [address] Phone: tel: fax: Referral ID Status Reason Start Date Expiration Date Visits Re quested Visits Authorized [id number] Closed 01/26/2015 01/26/2016 1 1 Encounter Details Date Type Department Care Team (Late st Contact Info) Description 01/26/2015 Orders Only [facility] [address] [place] [phone] Natasha Akers MD [address] [place] [address] Inverted nipple (Primary Dx) Social History Tobacco Use Types [...] 10:30 AM EST Office Visit [facility] [place] [address] [place] [address] [address] [place] [address] Nikolas Jha, DPMitzi [address] [facility] [place] [address] documented as of this encounter Visit Diagnoses Diagnosis Inverted nipple- Primary Other sign and symptom in breast documented in this encounter Orders Imaging Orders Without Results Count Last Order ed Date First Ordered Date MRI BREAST BILATERAL W WO CONTRAST W CAD 1 01/26/2015 documented in this encounter Care Teams Coal Tower Operator Relationship Specialty Start Date End Date Carlos Manuel Barragan [address] [facility] [address] [place] [address] PCP - General 07/03/10 documented as of this encounter
--- OUTSIDE RECORDS SUMMARY | 2024-05-04 22:56 | XMS_ITS | Encounter Summary ---
Author Organization [place] [address] Care Team Providers Care Health Unit Coordinator Name Role Phone Carlos Manuel Barragan Primary Care Provider [phone] Reason for Referral * MRI/CAT Scan (Routine) - Closed Specialty Diagnoses / Procedures Referred By Heather santos Referred To Contact Radiology Diagnoses Nipple retraction Procedures MRI BREAST BILATERAL W WO CONTRAST W CAD Natasha Akers MD [address] [place] [address] Phone: tel: fax: Referral ID Status Reason Start Date Expiration Date Visits Re quested Visits Authorized [id number] Closed 01/26/2015 01/26/2016 1 1 Reason for Visit * Reason Onset Date Comments Other 01/25/2015 Encounter Details Date Type Department Care Team (Late st Contact Info) Description 01/25/2015 Telephone [facility] [address] [place] [phone] Natasha Akers MD [address] [place] [address] Other Social History Tobacco Use Types Packs/Day [...] encounter Miscellaneous Notes * Telephone Encounter - Natasha Akers MD - 01/26/2015 10:27 AM EDT Rx placed and I do agree * Telephone Encounter - Lani Tobias - 01/25/2015 11:24 AM EDT Pt had mammogram and they are recommending that she have a mri done and it is scheduled for tomorrow. Can you place a new order for a BREAST MRI. Isabelle at [facility] wants to make sure you are in agreeance with what they recommended. documented in this encounter Plan of Treatment Upcoming Encounters Date Type Department Care Team (Late st Contact Info) Description 05/24/2024 10:30 AM EST Office Visit [facility] [address] [place] [address] Nikolas Jha DPM [address] [place] [address] [address] [place] [address] documented as of this encounter Results * MRI BREAST BILATERAL W WO CONTRAST W CAD (01/26/2015 12:57 PM EDT) Anatomical Region Laterality Modality Breast Bilateral Magnetic Resonan ce 01/27/2015 3:05 PM EDT Impressions 01/27/2015 5:00 PM EDT : Incomplete-need additional imaging evaluation ([id number]) MRI findings are worrisome for a multicentric [...] submitted. ?? Imaging interpretation is aided with New ScreensD. ??There are no prior studies available for [...] internal mammary chain adenopathy is identified. ~ Natasha Akers MD IMG MRI BREAST OR DERABLES Final Result documented in this encounter Visit Diagnoses Diagnosis Nipple retraction- Primary Other sign and symptom in breast Nipple retraction Other sign and symptom in breast Inverted nipple Other sign and symptom in breast documented in this encounter Care Teams Health Unit Coordinator Relationship Specialty Start Date End Date Carlos Manuel Barragan [address] [place] [address] [place] [address] PCP - General 07/03/10 documented as of this encounter
--- OUTSIDE RECORDS SUMMARY | 2024-05-04 22:56 | XMS_ITS | Encounter Summary ---
Author Organization [place] [address] Care Team Providers Care Informatics Analyst Name Role Phone Carlos Manuel Barragan Primary Care Provider [phone] Reason for Visit * Mammography (Routine) - Closed Specialty Diagnoses / Procedures Referred By Contniurka t Referred To Contact Radiology Diagnoses Inversion, nipple Procedures MM US BREAST LIMITED LEFT MM US BREAST LIMITED RIGHT MM US BREAST COMPLETE LEFT Natasha Akers MD [address] [place] [address] Phone: tel: fax: Referral ID Status Reason Start Date Expiration Date Visits Re quested Visits Authorized [id number] Closed 01/23/2015 01/23/2016 1 1 Encounter Details Date Type Department Care Team (Latest Contact Info) Description 01/23/2015 10:49 AM EDT - 01/23/2015 11:59 PM EDT Hospital Encounter [facility] [place] [facility] [address] [facility] [place] [address] Natasha Akers MD [address] [place] [address] Inversion, nipple Discharge Disposition: Home or Self Care [...] 10:30 AM EST Office Visit [facility] [address] [place] [address] Nikolas Jha DPM [address] [place] [address] [address] [place] [address] documented as of this encounter Procedures Procedure Name Priority Date/Time Associated Diagnosis Comments MM US BREAST LIMITED LEFT Routine 01/23/2015 11:37 AM EDT Inversion, nipple documented in this encounter Results * MM US BREAST LIMITED LEFT (01/23/2015 11:37 AM EDT) Anatomical Region Laterality Modality Breast Left Ultrasound 01/24/2015 9:46 AM EDT Impressions 01/26/2015 7:40 AM EDT : Incomplete-need additional imaging evaluation ([id number]) ~ Non-contributory imaging in a patient with developing nipple retraction. Recommend Breast MRI. ~ RECOMMENDATION: Breast MRI. ~ , in one month recommended. Narrative 01/26/2015 7:40 AM EDT MM US BREAST LIMITED LEFT LEFT BREAST ULTRASOUND: ~ History: ??Patient is a 64 year old female who [...] heterogeneous tissue scattered through the breast but ??a discrete mass to explain nipple retraction is [...] maybe necessary depending on MRI findings. ~ us Natasha Akers MD IMG MAMMOGRAPHY O RDERABLES Final Result documented in this encounter Visit Diagnoses Diagnosis Inversion, nipple Other sign and symptom in breast documented in this encounter Care Teams Informatics Analyst Relationship Specialty Start Date End Date Carlos Manuel Barragan [facility] [address] [place] [address] PCP - General 07/03/10 documented as of this encounter
--- OUTSIDE RECORDS SUMMARY | 2024-05-04 22:56 | XMS_ITS | Encounter Summary ---
Author Organization [facility] [place] [address] Care Team Providers Care Circus Performer Name Role Phone Carlos Manuel Barragan Primary Care Provider [phone] Encounter Details Date Type Department Care Team (Latest Contact Info) Description 01/16/2015 7:45 PM EDT - 01/16/2015 11:59 PM EDT Hospital Encounter [facility] [place] [phone] Routine gynecological examination Discharge Disposition: Home or [...] 10:30 AM EST Office Visit [facility] [place] [address] [facility] [address] [place] [address] [place] Nikolas Neil, DPM [address] [facility] [address] [place] [address] documented as of this encounter Procedures Procedure Name Priority Date/Time Associated Diagnosis Comments SUPERINTENDENT ELECTRIC POWER CYTOLOGY REPORT Routine 01/16/2015 7 :45 PM EDT documented in this encounter Results * SUPERINTENDENT ELECTRIC POWER CYTOLOGY REPORT (01/16/2015 7:45 PM EDT) Probation And Parole Officer Cytology Report ? PATIENT NAME:DIAMANTE EDOUARD ? Probation And Parole Officer Cytology Report ? Accession Number ?Collected Date/Time ? Received Date/Time ? [id number] ? 01/16/15 19:45 EDT ?01/16/15 22:13 EDT ? GY Specimen Source ? Specimen [...] definitive ? therapy. ? Processed using the wywyp Yogurt3D Engine automated cytology screening device ? (WeVideo). ? Technical Services Consultant: DT ?01/18/2015 ? Completed by: ??ANNELIESE Miller ?(Electronically signed by) ?01/18/2015 ?[facility] Laboratory [facility] 01/16/2015 7:45 PM EDT us Natasha Akers MD PATHOLOGY ORDERAB LES Final Result Performing Organization Address City/State/[facility] Co de Phone Number [facility] 1 [place] [address] documented in this encounter Visit Diagnoses Diagnosis Routine gynecological examination documented in this encounter Orders Lab Orders Without Results Count Last Ordered D ate First Ordered Date SUPERINTENDENT ELECTRIC POWER CYTOLOGY REQUEST (PAP ONLY) 1 5 documented in this encounter Care Teams Circus Performer Relationship Specialty Start Date End Date Carlos Manuel Barragan [address] [facility] [address] [place] [address] PCP - General 07/03/10 documented as of this encounter
--- OUTSIDE RECORDS SUMMARY | 2024-05-04 22:56 | XMS_ITS | Encounter Summary ---
Author Organization [place] [address] Care Team Providers Care Snow Removal/Plowing Name Role Phone Carlos Manuel Barragan Primary Care Provider [phone] Encounter Details Date Type Department Care Team (Latest Contact Info) Description 03/16/2015 8:32 AM EDT - 03/16/2015 11:59 PM EDT Hospital Encounter [facility] [place] [id number] Discharge Disposition: Home or Self Care Social [...] 10:30 AM EST Office Visit [facility] [place] [address] [facility] [address] [place] [address] Nikolas Jha, DPMitzi [address] [facility] [address] [place] [address] documented as of this encounter Procedures Procedure Name Priority Date/Time Associated Diagnosis Comments SCANNED PATHOLOGY REPORT 04/06/2015 7:52 AM EST documented in this encounter Results * SCANNED PATHOLOGY REPORT (04/06/2015 7:52 AM EST) 04/06/2015 7:52 AM EST us Unknown Unknown PATHOLOGY ORDERABLES Final Resul t documented in this encounter Visit Diagnoses Not on filedocumented in this encounter Care Teams Snow Removal/Plowing Relationship Specialty Start Date End Date Carlos Manuel Barragan [address] [place] [address] [address] [facility] [place] [address] PCP - General 07/03/10 documented as of this encounter
--- OUTSIDE RECORDS SUMMARY | 2024-05-04 22:56 | XMS_ITS | Encounter Summary ---
Author Organization [place] [address] Care Team Providers Care Compound Specialist Name Role Phone Carlos Manuel Barragan Primary Care Provider [phone] Reason for Visit * Reason Onset Date Comments Results 02/08/2015 Encounter Details Date Type Department Care Team (Late st Contact Info) Description 02/08/2015 Telephone [facility] [place] [address] Sarita Suarez, RN Results Social History Tobacco Use Types [...] encounter Miscellaneous Notes * Telephone Encounter - Corry Frazier RN - 02/09/2015 2:26 PM EDT Radiologist Present: Dr Giraldo Pathology Results: [facility] Grade 1 Initial Education Packet Given: Yes Pt Verbalized Understanding of Information Reviewed: Yes, and her . Further Information Given: New pt packet Pt Referred to: Dr Pride MRI - No Pt requested Dr Crouch. Pt scheduled on 02/13/15. * Telephone Encounter - Cheri Reyes - 02/09/2015 9:[address] Santos Shay's office please recommend Dr Pride for her patient. * Telephone Encounter - Cheri Reyes - 02/08/2015 5:01 PM EDT Pathology is concordant per Dr Giraldo ,[facility] left breast, The Radiologist recommends she see a surgeon . Report has been faxed to Dr. Natasha Shay, Awaiting surgical referral. * Telephone Encounter - Sarita Suarez RN - 02/08/2015 10:10 AM EDT Spoke with patient via telephone /follow up post breast procedure: Pain assessed, patient rates pain on pain scale 1-10: 0/10 Dressing removed: patient states removed Site free of infection and hematoma, clean and dry: patient denies signs of infection Follow up appointment confirmed or cancelled: confirmed for 02/09/15 11 a.m. * Telephone Encounter - Cheri Reyes - 02/08/2015 9:55 AM EDT Pathology report is pending. Patient had a left breast u/s on 02/07. Her appointment for results is on 11 am. documented in this encounter Plan of Treatment Upcoming Encounters Date Type Department Care Team (Late st Contact Info) Description 05/24/2024 10:30 AM EST Office Visit [facility] [address] [place] [address] Nikolas Jha, DPMitzi [address] [place] [address] [address] [place] [address] documented as of this encounter Visit Diagnoses Not on filedocumented in this encounter Care Teams Compound Specialist Relationship Specialty Start Date End Date Carlos Manuel Barragan [address] [place] [address] PCP - General 07/03/10 documented as of this encounter
--- OUTSIDE RECORDS SUMMARY | 2024-05-04 22:56 | XMS_ITS | Encounter Summary ---
Author Organization [place] [address] Care Team Providers Care Counter Supply Worker Name Role Phone Carlos Manuel Barragan Primary Care Provider [phone] Reason for Visit * Mammography (Routine) - Closed Specialty Diagnoses / Procedures Referred By Heather santos Referred To Contact Radiology Diagnoses Other screening mammogram Procedures MM MAMMO DIGITAL VANNESA SCREEN BILAT MM MAMMO DIGITAL SCREENING W CAD BILAT Adrian Marshall MD Referral ID Status Reason Start Date Expiration Date Visits Re quested Visits Authorized [id number] Closed 09/05/2014 09/05/2015 1 1 Encounter Details Date Type Department Care Team (Latest Contact Info) Description 09/06/2014 10:30 AM EDT - 09/06/2014 11:59 PM EDT Hospital Encounter [facility] [place] [address] Adrian Marshall MD Other screening mammogram Discharge Disposition: Home or Self [...] 10:30 AM EST Office Visit [facility] [place] [address] [place] [address] [address] [place] [address] Nikolas Jha, DPMitzi [address] [facility] [address] [place] [address] documented as of this encounter Procedures Procedure Name Priority Date/Time Associated Diagnosis Comments MM MAMMO DIGITAL VANNESA SCREEN BILAT Routine 09/06/2014 10:56 AM EDT Other screening mammogram documented in this encounter Results * MM MAMMO DIGITAL VANNESA SCREEN BILAT (09/06/2014 10:56 AM EDT) Anatomical Region Laterality Modality Breast Bilateral Mammography 09/07/2014 5:56 AM EDT Impressions 09/09/2014 10:32 AM EDT : Negative ??([id number]) ~ RECOMMENDATION: Routine screening mammogram in 1 year. ~ * The patient [...] due date for the next mammogram. Narrative 09/09/2014 10:32 AM EDT Procedure:MM MAMMO DIGITAL VANNESA SCREEN BILAT ~ Reason for exam: screening ??(asymptomatic). ~ MM MAMMO DIGITAL VANNESA SCREEN BILAT Bilateral CC and MLO view(s) were taken. The breast tissue is heterogeneously dense. ??This may lower the sensitivity of mammography. ??Compared to prior studies the most recent being 09-03-13 ~ Adrian Marshall MD IM MAMMOGRAPHY ORDERABLES F inal Result documented in this encounter Visit Diagnoses Diagnosis Other screening mammogram documented in this encounter Care Teams Counter Supply Worker Relationship Specialty Start Date End Date Carlos Manuel Barragan [address] [place] [address] PCP - General 07/03/10 documented as of this encounter
--- OUTSIDE RECORDS SUMMARY | 2024-05-04 22:56 | XMS_ITS | Encounter Summary ---
Author Organization [place] [address] Care Team Providers Care Pelt Salter Name Role Phone Carlos Manuel Barragan Primary Care Provider [phone] Reason for Referral * Consultation (Routine) - Closed Specialty Diagnoses / Procedures Referred By Heather santos Referred To Contact Diagnoses Malignant neoplasm of left female breast, unspecified site of breast Dany Crouch MD Phone: tel: fax: [facility] [address] [place] [address] Phone: tel: fax: Referral ID Status Reason Start Date Expiration Date V isits Requested Visits Authorized [id number] Closed Specialty Services Required 03/13/2015 03/12/2016 1 1 Reason for Visit * Reason Comments Follow-up Encounter Details Date Type Department Care Team (Latest Contact Info) Description 03/13/2015 9:39 AM EDT - 03/13/2015 11:59 PM EDT Hospital Encounter [facility] [place] [address] Dany Crouch MD [address] [place] [address] [place] [address] Malignant neoplasm of left female breast, unspecified [...] Sign Reading Time Taken Comments Blood Pressure 124/78 03/13/2015 9:52 AM EDT Pulse 80 03/13/2015 9:52 AM EDT Temperature 36.8 ??C (98.2 ??F) 03/13/2015 9:52 AM ED T Respiratory Rate 16 03/13/2015 9:52 AM EDT Oxygen Saturation - - Inhaled Oxygen Concentration - - Weight 91.2 kg (201 lb) 03/13/2015 9:52 AM EDT Height 167.6 cm (5' 6 ) 03/13/2015 9:52 AM EDT Body Mass Index 32.44 03/13/2015 9:52 AM EDT documented in this encounter Medications [...] Progress Notes * Jami Head RN - 03/13/2015 9:55 AM EDT Juany is seen in the breast clinic today for post surgical follow up of left breast core biopsy andSLND on 03/03. examined surgical site of left breast and axilla, site incision sites dryand intact without signs of infection. Pathology results reviewed. Patient is having some discomfort, 5 on scale of 0 - 10, no medication needed. P: knowledge deficit r/t post surgical care and future treatment and surgery G: educate patient, and daughter I: Discussed oncotype testing of tumor. Discussed left mastectomy with or without reconstruction, possible bilateral at patient request, risk and benefits. Discussed seeing Plastic Surgeon. Discussedfuture treatment, neoadjuvant Chemotherapy prior to surgery to be determined with Oncotype test results, risk and benefits. Discussed possible future radiation treatment, risk and benefits. Emotionalsupport provided. Dr. Crouch will call with Oncotype test results in 10 days. Staff message sent to Cheri for Oncotype To see Dr. Lanier or Marisol for consult To schedule surgery Patient has copy of Oncotype booklet * Dany Crouch MD - 03/13/2015 9:43 AM EDT Subjective: Ms. Alarcon is here for a scheduled routine follow-up visit History of Present Illness The patient is a 64 y.o. female who presents with a complaint of breast follow up and planning HPI Past Medical History Diagnosis Date ??? Hypertension ??? Arthritis ??? Blood transfusion with hip replacement ??? Postoperative nausea and vomiting ??? Unspecified sleep apnea cpap at night. does not know setting ??? Encounter for blood transfusion with THR ??? Anemia ??? Breast cancer (HCC) 02/09/15 ILC, grade 1. No receptors at this time (not sufficient tissue) ??? Motion sickness Patient Active Problem List Diagnosis Date Noted ??? Breast cancer (HCC) 02/09/2015 Past Surgical History Procedure Laterality Date ??? Hip surgery 2009 right ??? Cholecystectomy ??? Tonsillectomy ??? Knee surgery 2008 right TKR ??? Breast biopsy Left 02/07/15 ??? Colonoscopy Family History Problem Relation Age of Onset ??? Ovarian Cancer Mother 83 ??? Breast Cancer Sister 54 ??? Heart Failure Father History Social History ??? Marital Status: Spouse [...] 10 mg by mouth every evening. ??? lactobacillus rhamnosus, GG, (CULTURELLE) 10 billion cell Oral Capsule Take 1 Cap by mouth daily. ??? Diclofenac Potassium (ZIPSOR) 25 mg Cap Take 25 mg by mouth 4 times daily. ??? aspirin 81 mg tablet Take 81 mg by mouth daily. ??? HYDROcodone-acetaminophen (NORCO) 5-325 mg Oral Tablet Take 2 Tabs by mouth every 6 hours as needed for Pain for up to 10 days. 20 Tab 0 ??? bisoprolol-hydrochlorothiazide (ZIAC) 5-6.25 mg per tablet Take 1 Tab by mouth daily. No current facility-administered medications for this encounter. Allergies Allergen Reactions ??? Morphine ??? Penicillins Review of Systems All other systems reviewed and are negative. Objective: Filed Vitals: 03/13/15 0952 BP: 124/78 Pulse: 80 Temp: 98.2 ??F (36.8 ??C) Resp: 16 Height: 5' 6 (1.676 m) Weight: 201 lb (91.173 kg) Body mass index is 32.46 kg/(m^2). Physical Exam Constitutional: She appears well-developed and well-nourished. Neck: Neck supple. No thyroid mass present. Cardiovascular: Normal rate and normal heart sounds. Pulmonary/Chest: Effort normal and breath sounds normal. Abdominal: Bowel sounds are normal. Musculoskeletal: She exhibits no edema or tenderness. Skin: Skin is warm and dry. Psychiatric: She has a normal mood and affect. Her behavior is normal. Thought content normal. Nursing note and vitals reviewed. Assessment and Plan: Surgical Pathology Report Accession Number Collected Date/Time Received Date/Time SP--03/03/15 14:57 EDT 03/03/15 15:40 EDT Diagnosis 1) Left axillary sentinal lymph nodes, dissection: - No metastatic carcinoma in 4 lymph nodes (multiple H pancytokeratin immunostains examined). 2) Left breast, core biopsy: - Invasive grade 1 lobular carcinoma, Prinsburg score 5 (3+1+1), small scattered foci. Discussed with patient and reviewed left breast pathology showing invasive grade one lobular carcinoma, small scattered foci and No metastatic carcinoma in 4 lymph nodes. Discussed Oncotype testing to determine role for chemotherapy. Discussed if she would need chemotherapy it would be done prior to surgery. Discussed factors as age, tumor size and lymph nodes. Her tumor is ER/ID positive and HER 2 negative. BRCA1 and BRCA 2 are clean. Discussed mastectomy with reconstruction- she to see Dr. Damon/Dr. Lanier for plastic surgery consultation- referral placed All risks of procedure were discussed in length with patient. Patient has a clear understanding. After all risks discussed patient was told that [facility] will be calling to schedule procedure in the near future. Will call pt to discuss Oncotype result Surgery to schedule Left Mastectomy/reconstruction Note written by PRASANNA Reeves, acting as scribe for Yamel Crouch MD. Juany was seen today for follow-up. Diagnoses and associated orders for this visit: Malignant neoplasm of left female breast, unspecified site of breast (HCC) - Ambulatory referral to Plastic Surgery ???I have reviewed this note and it accurately reflects my work and decisions made during this visit.?? Dany Crouch MD documented in this encounter Miscellaneous Notes * Patient Instructions - Jami Head, CRISTOBAL - 03/13/2015 10:[address] Crouch will call with Oncotype test results in [address]. [address] Lanier or Marisol for consult, business card given To schedule surgery after seen by Plastic Surgeon Educational packet for Post Surgical and Reconstruction given and reviewed. Dr. Willa Butterfield's patient child care centre director, will call you with a surgical date and time after you have you consultation with the Plastic Surgeons; she will also be arranging an appointment for Pre Admission Testing (PAT) a day or two ahead of time. you can call her at [phone] extension [phone]. Mastectomy, With or Without Reconstruction Mastectomy (removal of the breast) is a procedure most commonly used to treat cancer (tumor) of thebreast. Different procedures are available for treatment. This depends on the stage of the tumor (abnormal growths). Discuss this with your caregiver, surgeon (a specialist for performing operations such as this), or oncologist (someone specialized in the treatment of cancer). With proper information, you can decide which treatment is best for you. Although the sound of the word cancer is frightening to all of us, the new treatments and medications can be a source of reassurance and comfort. Ifthere are things you are worried about, discuss them with your caregiver. He or she can help comfort you and your family. Some of the different procedures for treating breast cancer are: ?? Radical (extensive) mastectomy. This is an operation used to remove the entire breast, the muscles under the breast, and all of the glands (lymph nodes) under the arm. With all of the new treatments available for cancer of the breast, this procedure has become less common. ?? Modified radical mastectomy. This is a similar operation to the radical mastectomy described above. In the modified radical mastectomy, the muscles of the chest wall are not removed unless one of the lessor muscles is removed. One of the lessor muscles may be removed to allow better removal of the lymph nodes. The axillary lymph nodes are also removed. Rarely, during an axillary node dissection nerves to this area are damaged. Radiation therapy is then often used to the area following this surgery. ?? A total mastectomy also known as a complete or simple mastectomy. It involves removal of only the breast. The lymph nodes and the muscles are left in place. ?? In a lumpectomy, the lump is removed from the breast. This is the simplest form of surgical treatment. A sentinel lymph node biopsy may also be done. Additional treatment may be required. RISKS AND COMPLICATIONS The main problems that follow removal of the breast include: ?? Infection (germs start growing in the wound). This can usually be treated with antibiotics (medications that kill germs). ?? Lymphedema. This means the arm on the side of the breast that was operated on swells because thelymph (tissue fluid) cannot follow the main channels back into the body. This only occurs when the lymph nodes have had to be removed under the arm. ?? There may be some areas of numbness to the upper arm and around the incision (cut by the surgeon) in the breast. This happens because of the cutting of or damage to some of the nerves in the area.This is most often unavoidable. ?? There may be difficulty moving the arm in a full range of motion (moving in all directions) following surgery. This usually improves with time following use and exercise. ?? Recurrence of breast cancer may happen with the very best of surgery and follow up treatment. Sometimes small cancer cells that cannot be seen with the naked eye have already spread at the time ofsurgery. When this happens other treatment is available. This treatment may be radiation, medications or a combination of both. RECONSTRUCTION Reconstruction of the breast may be done immediately if there is not going to be post-operative radiation. This surgery is done for cosmetic (improve appearance) purposes to improve the physical appearance after the operation. This may be done in two ways: ?? It can be done using a saline filled prosthetic (an artificial breast which is filled with salt water). Silicone breast implants are now re-approved by the FDA and are being commonly used. ?? Reconstruction can be done using the body's own muscle/fat/skin. Your caregiver will discuss your options with you. Depending upon your needs or choice, together you will be able to determine which procedure is best for you. Document Released: 02/04/2002 Document Revised: 02/03/2013 Document Reviewed: 09/27/2008 ExitCare?? Patient Information ??2015 An[employer]. This information is not intended to replace advice given to you by your health care provider. Make sure you discuss any questions you have with your health care provider. Mastectomy With or Without Reconstruction Care After Please read the instructions outlined below and refer to this sheet in the next few weeks. These discharge instructions provide you with general information on caring [facility] Your caregiver may also give you specific instructions. While your treatment has been planned according to the most current medical practices available, unavoidable complications occasionally occur. If you have any problems or questions after discharge, please call your caregiver. POST-OPERATIVE EXERCISES ?? Lie in bed with your arm at your side. Raise your arm straight up and back, as if reaching for the headboard. ?? Lying in bed, clasp your hands behind your head and push your elbows into the mattress. ?? Raise your shoulders and rotate them forward, down, and back in a circular motion to loosen yourchest, shoulder, and upper back muscles. ?? Lying with your elbow bent and your arm on the bed at a 90 degree angle to your body, rotate your shoulder forward and bring your forearm down toward your feet. Then bring your forearm back up. ?? With your arm raised parallel to the floor, clench and unclench your fist. ?? Standing with your palm flat against a wall, walk your fingers up the wall. SEEK MEDICAL CARE IF: ?? There is redness, swelling, or increasing pain in the wound. ?? There is pus coming from the wound. ?? There is drainage from a wound lasting longer than one day. ?? An unexplained oral temperature above 102?? F (38.9?? C) develops. ?? You notice a foul smell coming from the wound or dressing. ?? There is a breaking open of a wound (edges not staying together) after the sutures have been removed. ?? You develop dizzy episodes or fainting while standing. ?? You develop persistent nausea or vomiting. SEEK IMMEDIATE MEDICAL CARE IF: ?? You develop a rash. ?? You have difficulty breathing, or develop any reaction or side effects to medications given. Document Released: 11/29/2005 Document Revised: 08/03/2012 Document Reviewed: 04/13/2008 ExitCare?? Patient Information ??2015 AnSyn. This information is not intended to replace advice given to you by your health care provider. Make sure you discuss any questions you have with your health care provider. documented in this encounter Plan of Treatment Upcoming Encounters Date Type Department Care Team (Late st Contact Info) Description 05/24/2024 10:30 AM EST Office Visit [facility] [address] [place] [phone] Nikolas Jha DPM [address] [place] [address] [address] [place] [address] Scheduled Referrals Name Type Priority Associated Diagnoses Orde r Schedule AMB REFERRAL TO PLASTIC SURGERY Outpatient Referral Routine Malignant neoplasm of left female breast, unspecified site of breast (HCC) Ordered: 03/13/2015 documented as of this encounter Visit Diagnoses Diagnosis Malignant neoplasm of left female breast, unspecified site of breast- Primary documented in this encounter Care Teams Pelt Salter Relationship Specialty Start Date End Date Carlos Manuel Barragan [address] [place] [address] [address] [place] [address] PCP - General 07/03/10 documented as of this encounter
--- OUTSIDE RECORDS SUMMARY | 2024-05-04 22:56 | XMS_ITS | Encounter Summary ---
Author Organization [place] [address] Care Team Providers Care Instructional Design Manager Name Role Phone Carlos Manuel Barragan Primary Care Provider [phone] Reason for Visit * Reason Onset Date Comments Other 01/23/2015 Encounter Details Date Type Department Care Team (Late st Contact Info) Description 01/23/2015 Telephone [facility] [address] [place] [address] Sarita Suarez, RN Other Social History Tobacco Use Types [...] encounter Miscellaneous Notes * Telephone Encounter - Sarita Suarez RN - 01/23/2015 2:20 PM EDT Patient recommended to have breast MRI per Dr. Nickerson following today's breast imaging. Procedure explained to patient and scheduled for 01/26/15 in [facility]. Called and spoke with Pamela at Dr. Barragan's office [phone] who states she will work on pre authorization; she will call [facility] with questions and is aware that her MRI is scheduled for 01/26/15. documented in this encounter Plan of Treatment Upcoming Encounters Date Type Department Care Team (Late st Contact Info) Description 05/24/2024 10:30 AM EST Office Visit [facility] [address] [place] [address] Nikolas Jha, DPMitzi [address] [place] [address] [address] [place] [address] documented as of this encounter Visit Diagnoses Not on filedocumented in this encounter Care Teams Instructional Design Manager Relationship Specialty Start Date End Date Carlos Manuel Barragan [address] [facility] [address] [place] [address] PCP - General 07/03/10 documented as of this encounter
--- OUTSIDE RECORDS SUMMARY | 2024-05-04 22:56 | XMS_ITS | Encounter Summary ---
Author Organization [place] [address] Care Team Providers Care Account Receivable Associate Name Role Phone Carlos Manuel Barragan Primary Care Provider [phone] Reason for Referral * Mammography (Routine) - Closed Specialty Diagnoses / Procedures Referred By Contac t Referred To Contact Radiology Diagnoses Breast mass Procedures MM US BREAST LIMITED LEFT Natasha Akers MD [address] [place] [address] Phone: tel: fax: Referral ID Status Reason Start Date Expiration Date Visits Re quested Visits Authorized [id number] Closed 01/31/2015 01/31/2016 1 1 Reason for Visit * Mammography (Routine) - Closed Specialty Diagnoses / Procedures Referred By Contniurka t Referred To Contact Radiology Diagnoses Breast mass Procedures MM US BREAST LIMITED LEFT Natasha Akers MD [address] [place] [address] Phone: tel: fax: Referral ID Status Reason Start Date Expiration Date Visits Re quested Visits Authorized [id number] Closed 01/31/2015 01/31/2016 1 1 Encounter Details Date Type Department Care Team (Latest Contact Info) Description 02/03/2015 7:50 AM EDT - 02/03/2015 11:59 PM EDT Hospital Encounter [facility] Dr. Burnham, [facility] Breast mass Discharge Disposition: Home or Self Care Social [...] 10:30 AM EST Office Visit [facility] [address] [place] [phone] Nikolas Jha, [facility] [address] [facility] [address] [place] [phone] documented as of this encounter Procedures Procedure Name Priority Date/Time Associated Diagnosis Comments MM US BREAST LIMITED LEFT Routine 02/03/2015 8:38 AM EDT Breast mass documented in this encounter Results * MM US BREAST LIMITED LEFT (02/03/2015 8:38 AM EDT) Anatomical Region Laterality Modality Breast Left Ultrasound 02/03/2015 11:4 8 AM EDT Impressions 02/03/2015 1:33 PM EDT : Highly suggestive of malignancy ([id number]) With correlation with the recent MRI there is felt to be an area suitable for biopsy in the 2 to 3 o'clock position, where there is some vague decreased echogenicity with shadowing. ??I discussed the findings at length with the patient. ?? Ultrasound core biopsy is being scheduled. ??Brief history and physical performed at the time of the patient's visit in the Breast Center. ~ RECOMMENDATION: Ultrasound guided core biopsy. Narrative 02/03/2015 1:33 PM EDT MM US BREAST LIMITED LEFT LEFT BREAST SONOGRAM 02-03-15: ~ COMPARE: ??Prior mammogram and sonogram 01-23-15 and prior MRI 01-26-15. ~ CLINICAL HISTORY: ?? Patient who had developed new nipple inversion at the time of her original diagnostic study and subsequently had extensive work up including MRI showing relatively diffuse enhancement in the lateral left breast primarily in the lower outer quadrant but extending to the 2-3 o'clock position. ?? Second look ultrasound performed in hopes of finding a biopsy target. ~ Scanning is performed by both the technologist and Dr. Walsh. ??As was noted on the prior ultrasound there are several vague areas of decreased echogenicity but there is one more pronounced area of poorly defined decreased echogenicity at the 2-3 o'clock position with some posterior shadowing. ?? Exact measurements are difficult although this area measures at least 3 to 3.5 cm in size and is felt to be a suitable target for biopsy. ~ No axillary adenopathy is identified. ~ Natasha Akers MD IMG MAMMOGRAPHY O RDERABLES Final Result documented in this encounter Visit Diagnoses Diagnosis Breast mass Lump or mass in breast documented in this encounter Care Teams Account Receivable Associate Relationship Specialty Start Date End Date Carlos Manuel Barragan [address] [facility] [address] [place] [address] PCP - General 07/03/10 documented as of this encounter
--- OUTSIDE RECORDS SUMMARY | 2024-05-04 22:56 | XMS_ITS | Encounter Summary ---
Author Organization [place] [address] Care Team Providers Care Toll Settlement Clerk Name Role Phone Carlos Manuel Barragan Primary Care Provider [phone] Reason for Visit * Reason Onset Date Comments Results 03/01/2015 BRCA1/2 results Encounter Details Date Type Department Care Team (Late st Contact Info) Description 03/01/2015 Telephone [facility] [address] [facility] 3rd Floor [place], [place] [id number] Pita Sethi [facility] [address] [facility] [address] [place] [address] Results (BRCA1/2 results) Social History Tobacco Use Types Packs/Day Years [...] Notes * Telephone Encounter - Pita White, [facility] - 03/01/2015 8:50 AM EDT I contacted Ms. Alarcon by phone on to discuss the results of her BRCA1/2 sequencing and deletion/duplication analysis. The results were NEGATIVE, showing no clinically significant variants in these two genes. Please see results scanned in Squee for more detailed report. We discussed that more extensive panel testing is still pending from [facility] at this time. She will be notified by phone whenthe final panel results become available as well. Pita White Genetic Counselor documented in this encounter Plan of Treatment Upcoming Encounters Date Type Department Care Team (Late st Contact Info) Description 05/24/2024 10:30 AM EST Office Visit [facility] [address] [place] [phone] Nikolas Jha Mitzi [address] [place] [address] [address] [place] [phone] documented as of this encounter Visit Diagnoses Not on filedocumented in this encounter Care Teams Toll Settlement Clerk Relationship Specialty Start Date End Date Carlos Manuel Barragan [address] [facility] [address] [place] [address] PCP - General 07/03/10 documented as of this encounter
--- OUTSIDE RECORDS SUMMARY | 2024-05-04 22:56 | XMS_ITS | Encounter Summary ---
Author Organization [place] [address] Care Team Providers Care Oven Heater Helper Name Role Phone Carlos Manuel Barragan Primary Care Provider [phone] Reason for Visit * Auth/Cert/Inpt - Closed Specialty Diagnoses / Procedures Referred By Contac t Referred To Contact Diagnoses Malignant neoplasm of left female breast, unspecified site of breast Malignant neoplasm of left female breast, unspecified site of breast (HCC) [C50.912 (ICD-10-CM)] Procedures LEFT BREAST CORE BIOPSY & SENTINEL LYMPH NODE DISSECTION (ATHROMBIC) Referral ID Status Reason Start Date Expiration Date Visits Re quested Visits Authorized [id number] Closed 1 1 Encounter Details Date Type Department Care Team (Late st Contact Info) Description 03/03/2015 1:30 PM EDT - 03/03/2015 2:30 PM EDT Surgery EDG PERIOP [facility] [place] [address] Dany Crouch MD [address] [place] [address] [place] [id number] BREAST/AXILLARY SENTINEL LYMPH NODE BIOPSY/DISSECTION Surgery Details Date/Time Status Location OR Service Patient Class Case Class Case Type Trauma Case? 03/03/2015 1:30 PM Posted EDG MAIN OR EDG Room 06 General Same Day Surgery N/A Panel 1 Procedure LRB Anes Op Region Wound Class Comments BREAST/AXILLARY SENTINEL LYMPH NODE BIOPSY/DISSECTION Left General Breast Clean LEFT BREAST CORE BIOPSY & SENTINEL LYMPH NODE DISSECTION. Surgeon Surgeon Role Service Panel Dany Crouch MD Primary General 1 Special Needs ANN CPT;[id number] [id number] documented in this encounter Social History Tobacco [...] Sign Reading Time Taken Comments Blood Pressure 132/69 03/03/2015 5:31 PM EDT Pulse 62 03/03/2015 5:31 PM EDT Temperature 36.7 ??C (98 ??F) 03/03/2015 5:02 PM EDT Respiratory Rate 16 03/03/2015 5:31 PM EDT Oxygen Saturation 95% 03/03/2015 5:31 PM EDT Inhaled Oxygen Concentration - - Weight 90.5 kg (199 lb 7 oz) 03/03/2015 12:03 PM EDT Height 167.6 cm (5' 6 ) 02/24/2015 9:04 AM EDT Body Mass Index 32.19 02/24/2015 9:04 AM EDT documented in this encounter Discharge Instructions * Discharge Instructions* Alexia Kim RN - 03/03/2015 5:07 PM EDT [facility] Discharge Instructions - Following Anesthesia [...] hours unless otherwise directed. ?? If you received a nerve block for post-operative pain control, protect your blocked arm/leg. It is numb. Carefully pad your limb to prevent pressure sores and other injuries. Be careful with applying cold/warm to the blocked limb. Numbness will alter the sensation of the limb and could damage your skin if you cannot correctly feel the temperature. ?? If you have questions or concerns regarding your anesthesia experience, please call our office at . Get Well Soon! [facility] +++++++++++++++++++++++++++++++++++++++++++++++++++++++++++++++++++ OPERATIVE SITE INSTRUCTIONS: Remove your dressing in 48-72 hours. Leave steri-strips in place; they will fall off within 7-10 days. Change the dressing as needed. If you have a paper tape dressing under the arm, remove in 1-2 days Do not apply lotions or creams to the surgical site. May apply ice for 20 minute intervals to the surgical site, for comfort and to prevent swelling. If there is a ANUP drain present, empty and record the drainage two times a day. If drainage is less than 25 ml in a 24 hour time frame, notify Dr. Crouch. Milk the ANUP if it???s not draining. MEDICATION INSTRUCTIONS: Please take your prescribed pain medication as ordered. Please do not take additional tylenol products while taking either Percocet or Vicodin. You may take over the counter Ibuprofen (if you are not taking other arthritis medications, have a diagnosis of peptic ulcer disease or taking anticoagulants Coumadin, plavix, aspirin). May Resume Coumadin or Plavix 24 hours after the procedure. DIET INSTRUCTIONS: Drink liquids first, if no nausea in 1 hour you may advance as tolerated. ACTIVITY INSTRUCTIONS: Okay to walk up stairs Okay to shower after 24 hours. If there is a paper tape dressing present may remove prior to showering only replace the dressing if there is drainage. You may shower if there is a ANUP drain in place change dressing after shower. Pat incision(s) dry after showering. FOLLOW-UP CARE: For a follow up appointment and your results call [facility] at [phone], 72 hours post procedure. . Notify Dr. Crouch at [phone] for problems such as : * Check your temperature for 5 days call for Fever over 101 degrees * Unrelieved nausea or pain * Inability to urinate * Rash, hives or difficulty breathing * Blood soaked dressing (Some oozing may be normal) * Numb, pale, blue, cold or tingling extremity Go to the Emergency Room, if your doctor is not available Generic Instructions for Pain Medicine Some pain medicine may change the way you think and make judgments. You might not be able to do some things safely. Take your medicine as advised by your doctor if you have pain. DO NOT take them if you do not have pain unless your doctor advised you to. After you start the medicine and 8 hours after you stop, DO NOT: ?? Drive. ?? Use machines. ?? Use power tools. ?? Sign legal papers. HOME CARE Do not drink alcohol while taking pain medicines. Do not take sleeping pills while taking pain medicines. Do not take other medicines at the same time as pain medicines unless your doctor tells you it is okay to do so. IF YOUR PAIN MEDICINE IS A NARCOTIC: ?? Use a stool softener such as Metamucil if you cannot go the the bathroom. This can happen when you take certain pain medicines. ?? Eat more fruits and vegetables when you take your medicine. This may help you go to the bathroom. ?? You may get confused when taking your medicine. Write down when you take your medicine. ?? Before taking your next pill(s), look at the last time you took your pill(s). ?? Writing the times down will help you to not take too much (overdose). GET HELP IF: ?? Your medicine is not helping to relieve pain. ?? You throw up (vomiting) and/or have watery poop (diarrhea). ?? You notice belly pain that you did not have before. ?? You feel dizzy or pass out. ?? You feel you are having other problems that might be caused by your medicine. Document Released: 10/28/2008 ExitCare?? Patient Information ??2009 [employer]. No more than 4000 mg of Tylenol in a 24hr period. Your received 1000 mg of IV Tylenol in the OR at 2:48pm No additional tylenol for 6 hours. documented in this encounter Medications at Time of Discharge aspirin 81 mg tabletIndications: per Ortho instructions - resume when off Eliquis Take 81 mg by mouth daily. montelukast (SINGULAIR) 10 mg Oral Tablet Take 10 mg by mouth every evening. HYDROcodone-acetam inophen (NORCO) 5-325 mg Oral Tablet Take 2 Tabs by mouth every 6 hours as needed for Pain for up to 10 days. 20 Tab 0 03/03/2015 03/13/2015 documented as of this encounter Ordered Prescriptions Prescription Sig Dispense Quantity Refills Last Filled Start Date End Date HYDROcodone-acetam inophen (NORCO) 5-325 mg Oral Tablet Take 2 Tabs by mouth every 6 hours as needed for Pain for up to 10 days. 20 Tab 0 03/03/2015 03/13/2015 documented in this encounter Discharge Disposition Disposition Code Departure Means Destination Home or Self Retirement documented in this encounter H&P Notes * Christine August MD - 03/03/2015 11:48 AM EDT H&P Update History & Physical Reviewed Pt seen and examined. NO CHANGES This update is in reference to H&P performed by Dr. NAT Crouch. Source Note - Dany Crouch MD - 02/13/2015 2:53 PM EDT Subjective: Ms. Edouard is here for a scheduled routine follow-up [...] of the left breast. Technologist: Fernanda Johnston, mammo tech FTT The breast tissue is heterogeneously dense. This may lower the sensitivity of mammography. No discrete mass. No suspicious calcifications Compared to prior studies the most recent being 09-06-14. ~ IMPRESSION: Incomplete-need additional imaging evaluation (ECL-Xqrtwgpg-2) ~ RECOMMENDATION: Ultrasound of the left breast. [...] findings. ~ IMPRESSION: Incomplete-need additional imaging evaluation (SCK-Hcenshln-3) ~ Non-contributory imaging in a patient with [...] are submitted. Imaging interpretation is aided with Porphyrio. There are no prior studies available for [...] identified. ~ IMPRESSION: Incomplete-need additional imaging evaluation (ERL-Girpkcom-4) MRI findings are worrisome for a multicentric [...] Report Accession Number Collected Date/Time Received Date/Time [id number] 02/07/15 14:11 EDT 02/07/15 14:34 EDT Diagnosis [...] as age, tumor size and lymph nodes. ER/SC/HER 2 pending. If there is a role [...] acting as scribe for Yamel Crouch MD. Diamante was seen today for breast cancer. Diagnoses and associated orders for this visit: Malignant neoplasm of left female breast, unspecified site of breast (HCC) - AMB Referral to Genetic Counseling Abnormal mammogram ???I have reviewed this note and it accurately reflects my work and decisions made during this visit.?? Dany Crouch MD documented in this encounter Procedure Notes * Dany Crouch MD - 03/05/2015 7:40 PM EDT [facility]/[place]/[facility]/[place], [place] NAME: DIAMANTE EDOUARD [facility]#: [id number] LOCATION/ROOM: [facility] FACILITY: [facility] DICTATOR: Steven Crouch OPERATIVE REPORT Page 1 OPERATIVE REPORT DATE OF OPERATION: 03/03/2015 PREOPERATIVE DIAGNOSIS: Left breast cancer. POSTOPERATIVE DIAGNOSIS: Left breast cancer. OPERATIVE PROCEDURE: Left Olman-Cut biopsy and sentinel lymph node biopsy. SURGEON: Steven Crouch MD. ANESTHESIA: General. OPERATIVE INDICATIONS: Diamante is a 64-year-old woman with breast cancer. Hormone receptors were incomplete, based on scant tissue. I recommended a repeat core biopsy and a sentinel node biopsy to stage the axilla prior to definitive surgery. The risks, benefits, and alternatives were explained to her in detail, and she wished to proceed. DESCRIPTION OF PROCEDURE: After informed consent was obtained, the patient was taken to the operating room, where she was placed, prepped, and draped in the usual sterile fashion. 5 mL of Lymphazurinwas injected in a peritumoral fashion. Five minutes of breast compression was performed, and a curvilinear incision was made beneath the hair-bearing portion of the axilla. The subcutaneous tissue was divided with the cautery. The clavipectoral fascia was opened, and a blue- stained lymph node was identified. This was traced from lateral to medial into the tail of the breast to assure its primacy and singularity. No other blue- stained or palpable tissue was present, and the channel was ligated, and the node was sent for permanent section. The axilla was closed with 3-0 and 4-0 Vicryl subcuticular suture. Several passes were made with a Olman-Cut needle into the breast itself to achieve diagnostic material for receptor staining. These were sent separately. Sterile occlusive dressings were applied. All needle, sponge, and instrument counts were correct. The patient tolerated the procedure well and was taken to the recovery room awake and alert. Steven Crouch MD By: jay Job ID: [id number] Doc ID: [id number] CC: * Dany Crouch MD - 03/03/2015 2:51 PM EDT [facility] OPERATIVE/PROCEDURE NOTE Diamante Edouard Lionel March 03, 2015 PRE-OP DIAGNOSIS: Malignant neoplasm of left female breast, unspecified site of breast (HCC) [C50.912 (ICD-10-CM)] POST-OP DIAGNOSIS: Carcinoma in situ of breast, left [D05.92 (ICD-10-CM)] PROCEDURE(S): Procedure(s): LEFT BREAST CORE BIOPSY & SENTINEL LYMPH NODE DISSECTION. SURGEON(S): Surgeon(s) and Role: * Dany Crouch MD - Primary CARDIAC REHABILITATION PROGRAM DIRECTOR(S): ANESTHESIA: General SPECIMENS: ID Type Source Tests Collected by Time Destination 1 : LEFT BREAST LYMPH NODE BLUE Dany Crouch MD 03/03/2015 1437 Pathology ESTIMATED BLOOD LOSS: No Data Recorded COMPLICATIONS (IF YES, LIST COMPLICATIONS): No OTHER INFO: DISPOSITION/POST PROC COURSE: pacu Dany Crouch MD Date: 03/03/2015 documented in this encounter Nursing Notes * Fernanda Guido RN - 03/03/2015 2:32 PM EDT At 1400, report received from Fabricio Kauffman RN. States patient ready for surgery. OR team here to seepatient did not interrupt to introduce self. * Anika Kauffman RN - 03/03/2015 1:58 PM EDT Report to Victor M Guido * Susan Patel - 03/02/2015 7:50 AM EDT 02/14/15 h&p in epic * Louisa Rosario RN - 02/24/2015 9:12 AM EDT Pre-Op Instructions Date of Surgery 03-03-15 1. Do not eat any food or [...] of water on the morning of surgery: ZIAC 4. Aspirin, Coumadin, Ibuprofen, Plavix, Fish Oil, [...] eye makeup) lotion, powder, or deodorant. Nail anguillan must be removed if anguillan is on operative extremity. Please do not shave operative extremity or near the operative extremity. 13. If you have a Living Will and Durable Power of Pharmacy Director for Healthcare, please bring a copy. 14. [...] payment with you. We accept Visa, MasterCard, EnSol and [employer] credit cards. Our Customer Service Representatives will be available by telephone for any questions regarding financial issues at [phone]. 17. Other none. 18. If you wear CPAP or BIPAP, [...] call the: Same Day Surgery Unit - [place] at [phone]; Chacha SDS: Patient Entrance 3A, take North elevator to 2nd floor documented in this encounter Plan of Treatment Upcoming Encounters Date Type Department Care Team (Late st Contact Info) Description 05/24/2024 10:30 AM EST Office Visit [facility] [address] [place] [id number] Nikolas Jha, DPMitzi [address] [place] [address] documented as of this encounter Procedures Procedure Name Priority Date/Time Associated Diagnosis Comments PATHOLOGY TISSUE REPORT Routine 03/03/2015 2:57 PM EDT BREAST/AXILLARY SENTINEL LYMPH NODE BIOPSY/DISSECTION 03/03/2015 2:15 PM EDT Malignant neoplasm of left female breast, unspecified site of breast (HCC) Special Needs ANN CPT;70302 [id number] EK EKG 12 LEAD STAT 03/03/2015 11:47 AM EDT Preop testing Essential hypertension BASIC METABOLIC PANEL Routine 03/03/2015 11:43 AM EDT Preop testing Essential hypertension documented in this encounter Results * PATHOLOGY TISSUE REPORT (03/03/2015 2:57 PM EDT) Surgical Pathology Report ? PATIENT NAME:DIAMANTE EDOUARD ?Surgical Pathology Report ? Accession Number ?Collected Date/Time ? Received Date/Time ? 03/03/15 14:57 EDT ?10/09/15 15:40 EDT ? Diagnosis ? 1) Left axillary sentinal lymph nodes, dissection: ? - No metastatic carcinoma in 4 lymph nodes (multiple H ? pancytokeratin immunostains examined). ? 2) Left breast, core biopsy: ? - Invasive grade 1 lobular carcinoma, [place] score 5 (3+1+1), small ? scattered foci. ? Jannet Osterhage ? (Electronically signed by) ? Verified: 03/08/2015 ? [facility] ? Comment ? The left breast biopsy contains a few scattered foci of invasive tumor ? measuring less than 1 mm. ?? There is also a 2 mm linear focus that meets ? the requirement for oncotyping. ? Paraffin block for additional studies: ? Block: ??2B ? Clinical Information ? Malignant neoplasm of left breast ? Gross Description ? Part 1) Received fresh ??and subsequently fixed in formalin labeled with the ? patient's name and left blue node breast is a 5 x 3.5 x 1.5 cm aggregate ? of adipose tissue containing 4 unstained lymph nodes ranging in size from ? 0.5 to 1.5 cm. ??The nodes are entirely submitted as follows: ? 1A-1B = 1 bisected node per cassette. ? 1C = 2 whole nodes (one inked black for identification). /BC ? [place] node removal time: 1437 ? Formalin time: 1517 ? Time to formalin: 40 minutes ? Part 2) Received in formalin labeled with the patient's name and left core ? breast biopsy are multiple cores of fibrofatty tissue (inked green), each ? 1-2 mm in diameter, with lengths ranging from 0.5 to 2.5 cm. ??Entirely ? submitted in 2 cassettes. ??/BC ? Core removal time: 1437 ? Formalin time: 1447 ? Core time to formalin: ??10 minutes. ? KM /DE ? Microscopic Description ? Microscopic examination is performed and the findings corroborate the ? diagnosis. [facility] 03/03/2015 2:57 PM EDT us Dany Crouch MD PATHOLOGY ORDERABLES Final Result [facility] [address] [place] [address] * EK EKG 12 LEAD (03/03/2015 11:47 AM EDT) Anatomical Region Laterality Modality Other 03/03/2015 11:4 7 AM EDT Impressions 03/03/2015 11:09 PM EDT ? Stationary ECG Study ?[facility] ? Interpretive Statements ? SINUS BRADYCARDIA LOW QRS VOLTAGE IN PRECORDIAL LEADS Electronically Signed On 03-03-2015 23:09:00 EDT by Kai Bennett MD Narrative Procedure Note Kai Bennett MD - 03/03/2015 IMPRESSION Stationary ECG Study [facility] [place] Interpretive Statements SINUS BRADYCARDIA LOW QRS VOLTAGE IN PRECORDIAL LEADS Electronically Signed On 03-03-2015 23:09:00 EDT by Kai Bennett MD Mike Redmond MD IMG ECG ORDERABLES Final R esult * (ABNORMAL) BASIC METABOLIC PANEL (03/03/2015 11:43 AM EDT) Sodium 141 136 - 145 mmol/L [facility] Potassium 4.6 3.5 - 5.0 mmol/L [facility] Chloride 101 98 - 107 mmol/L [facility] Total CO2 22 22 - 29 mmol/L [facility] Anion Gap 18(H) 7 - 16 mmol/L [facility] Calcium 10.0 8.8 - 10.2 mg/dL [facility] Glucose Lvl 98 82 - 100 mg/dL [facility] BUN 12 8 - 23 mg/dL [facility] Creatinine 0.93 0.51 - 1.30 mg/dL [facility] GFR Afr Am >60 [facility] GFR Non Afr Am >60 [facility] Blood specimen (specimen) UPPER LIMB STRUCTURE / Unknown 03/03/2015 11:43 AM EDT 03/03/2015 11:46 AM EDT Brianna Camilo APRN CHEMISTRY ORDERABLES Edited R esult - Final [facility] [address] [place] [address] documented in this encounter Visit Diagnoses Diagnosis Preop testing- Primary Preoperative examination, unspecified Essential hypertension Unspecified essential hypertension Malignant neoplasm of left female breast, unspecified site of breast Malignant neoplasm of left female breast, unspecified site of breast documented in this encounter Administered Medications Inactive Administered Medications - up to 1 most recent administrations Medication Order MAR Action Action Date Dose Rate Site famotidine (PEPCID) 20 mg/2 mL injection 20 mg 20 mg, Intravenous, PREPROCEDURE, 1 dose, Starting on Dagmar 03/02/15 at 0941, Until Fri03/03/15 at 1216, pre-op, Slow IV push (greater than 2 minutes). To be given in SDS/Pre-op Hold Use 10 mL normal saline to dilute and administer famotidine IV, Pre-op (Holding/SDS Meds) Given 03/03/2015 12:16 PM EDT 20 mg isosulfan blue (LYMPHAZURIN) 1 % injection ONCE PRN, 1 dose, Starting on Fri03/03/15 at 1440, Until Fri03/03/15 at 1440, Intra-op Given 03/03/2015 2:40 PM EDT 5 mg Other lactated ringers infusion Intravenous, at 100 mL/hr, PREPROCEDURE CONTINUOUS, Starting on Dagmar 03/02/15 at 0941, Until Fri03/03/15 at 2156, To be given in SDS/Pre-op Hold, Pre-op (Holding/SDS Meds) New Bag 03/03/2015 3:04 PM EDT scopolamine (TRANSDERM-SCOP) 1.5 mg (1 mg over 3 days) 1 Patch 1 Patch, Transdermal, EVERY 72 HOURS, First dose on Fri03/03/15 at 1230, Until Discontinued, Remove old patch at time of administration., Administer over 24 Hours, Pre-op (Holding/SDS Meds) Patch Applied 03/03/2015 12:38 PM EDT 1 Patch documented in this encounter Discontinued Medications Medication Sig Discontinue Reason Start Date End Da te estradiol-norethindron e (ACTIVELLA) 1-0.5 mg Oral Tablet Take 1 tablet by mouth daily. DELETE-Therapy completed 01/12/2014 02/24/2015 documented as of this encounter Active and Recently Administered Medications Times are shown in EDT. Scheduled Medication Order 03/01/2015 03/02/2015 03/03/2015 ceFAZolin (ANCEF) 2 g in dextrose 5% 50 mL IVPB (COMPLETED) 2 g, Intravenous, ONCE PREPROCEDURE, 1 dose, On Fri03/03/15 at 0645, Administer over 30 Minutes, Pre-op (Antibiotic), Dx: 1. Malignant neoplasm of left female breast, unspecified site of breast 1418 (Given - Provid er: Ginger Smith CRNA) scopolamine (TRANSDERM-SCOP) 1.5 mg (1 mg over 3 days) 1 Patch (CANCELED) 1 Patch, Transdermal, EVERY 72 HOURS, First dose on Fri03/03/15 at 1230, Until Discontinued, Remove old patch at time of administration., Administer over 24 Hours, Pre-op (Holding/SDS Meds) 1238 (Patch Applied - Provider: Anika Kauffman RN - Comment: placed behind right ear) PRN Medication Order 03/01/2015 03/02/2015 03/03/2015 famotidine (PEPCID) 20 mg/2 mL injection 20 mg (COMPLETED) 20 mg, Intravenous, PREPROCEDURE, 1 dose, Starting on Dagmar 03/02/15 at 0941, Until 03/03/15 at 1216, pre-op, Slow IV push (greater than 2 minutes). To be given in SDS/Pre-op Hold Use 10 mL normal saline to dilute and administer famotidine IV, Pre-op (Holding/SDS Meds) 1216 (Given - Provid er: Anika Kauffman RN) isosulfan blue (LYMPHAZURIN) 1 % injection (CANCELED) ONCE PRN, 1 dose, Starting on 03/03/15 at 1440, Until 03/03/15 at 1440, Intra-op 1440 (Given - Provid er: Dany Crouch MD) lactated ringers infusion (CANCELED) Intravenous, at 100 mL/hr, PREPROCEDURE CONTINUOUS, Starting on Dagmar 03/02/15 at 0941, Until 03/03/15 at 2156, To be given in SDS/Pre-op Hold, Pre-op (Holding/SDS Meds) 1142 (New Bag - Prov ider: Naida Fletcher RN)1418 (Anesthesia Volume Adjustment - Provider: Ginger Smith CRNA)1502 (Anesthesia Volume Adjustment - Provider: Ginger Smith CRNA)1504 (New Bag - Provider: Ginger Smith CRNA)1526 (Anesthesia Volume Adjustment - Provider: Ginger Smith CRNA)1724 (Stopped - Provider: Alexia Kim RN) documented in this encounter Orders Medications Ordered That Binu ht Not Have Been Administered Count Last Ordered Date First Ordered Date acetaminophen (OFIRMEV) infusion 1,000 mg 1 03/03/2015 fentaNYL (SUBLIMAZE) 50 mcg/ mL injection 25 mcg 1 03/03/2015 Hydromorphone (DILAUDID) injection 0.25 mg 1 03/03/2015 ondansetron (ZOFRAN) 4 mg/2 mL injection 4 mg 1 03/03/2015 ondansetron (ZOFRAN-ODT) dis integrating tablet 8 mg 1 03/03/2015 oxyCODONE (ROXICODONE) immed iate release tablet 5 mg 1 03/03/2015 ceFAZolin (ANCEF) 2 g in dex trose 5% 50 mL IVPB 1 03/02/2015 Lab Orders Without Results Count Last Ordered D ate First Ordered Date PATHOLOGY TISSUE REQUEST 1 03/03/2015 documented in this encounter Care Teams Oven Heater Helper Relationship Specialty Start Date End Date Carlos Manuel Barragan [facility] [address] [place] [address] PCP - General 07/03/10 documented as of this encounter
--- OUTSIDE RECORDS SUMMARY | 2024-05-04 22:56 | XMS_ITS | Encounter Summary ---
Author Organization [place] [address] Care Team Providers Care Computer Security Coordinator Name Role Phone Carlos Manuel Barragan Primary Care Provider [phone] Reason for Visit * Reason Onset Date Comments Orders 03/13/2015 oncotype Encounter Details Date Type Department Care Team (Late st Contact Info) Description 03/13/2015 Telephone [facility] [place] [id number] Jami Head RN Orders (oncotype) Social History Tobacco Use Types Packs/Day Years [...] Encounter - Olesya Aiken RN - 04/12/2015 9:[address] Crouch will review case and possibly start on hormone elpidio until May * Telephone Encounter - Kristine Hill RN - 04/10/2015 4:48 PM EST Unable to speak with Dr. Crouch today regarding next step for patient. Will address this with himon Friday. * Telephone Encounter - Anika Cedeño RN - 04/06/2015 11:01 AM EST Called pt with oncotype score, 16. Pt is scheduled for mastectomy in May. NN to give score to dr Crouch on Friday and call pt back with recommendation. * Telephone Encounter - Izzy Harris, Clerical Staff - 04/06/2015 10:25 AM EST Results from onco now available. Recurrence score: 16. Please review w/ Dr. Crouch Friday to ask if she needs to come in for kenny't or can be called w/ results. (pt has called twice looking for results). * Telephone Encounter - Cheri Reyes - 03/16/2015 8:40 AM EDT ordered * Telephone Encounter - Cheri Reyes - 03/14/2015 12:56 PM EDT ----- Message from Jami Head RN sent at 03/13/2015 10:07 AM EDT ----- Regarding: Oncotype Order Oncotype test and call patient with results * Telephone Encounter - Jami Head RN - 03/13/2015 10:46 AM EDT Oncotype ordered - Dr. Crouch will call results. documented in this encounter Plan of Treatment Upcoming Encounters Date Type Department Care Team (Late st Contact Info) Description 05/24/2024 10:30 AM EST Office Visit [facility] [place] [address] [place] [address] [place] [phone] Nikolas Jha, DPMitzi [address] [address] [place] [address] documented as of this encounter Visit Diagnoses Not on filedocumented in this encounter Care Teams Computer Security Coordinator Relationship Specialty Start Date End Date Carlos Manuel Barragan [address] [facility] [address] [place] [address] PCP - General 07/03/10 documented as of this encounter
--- OUTSIDE RECORDS SUMMARY | 2024-05-04 22:56 | XMS_ITS | Encounter Summary ---
Author Organization [place] [address] Care Team Providers Care Dial Marker Name Role Phone Carlos Manuel Barragan Primary Care Provider [phone] Reason for Visit * Mammography (Routine) - Closed Specialty Diagnoses / Procedures Referred By Heather santos Referred To Contact Radiology Diagnoses Mass Procedures MM POST PROCEDURE FILM DIGITAL LEFT Natasha Akers MD [address] [place] [address] Phone: tel: fax: Referral ID Status Reason Start Date Expiration Date Visits Re quested Visits Authorized [id number] Closed 02/07/2015 02/07/2016 1 1 Encounter Details Date Type Department Care Team (Latest Contact Info) Description 02/07/2015 12:27 PM EDT - 02/07/2015 11:59 PM EDT Hospital Encounter [facility] [place] [address] Ntaasha Akers MD [address] [place] [address] Mass Discharge Disposition: Home or Self Care Social [...] 10:30 AM EST Office Visit [facility] [address] [place] [address] Nikolas Jha DPMitzi [address] [place] [address] [address] [place] [phone] documented as of this encounter Procedures Procedure Name Priority Date/Time Associated Diagnosis Comments MM POST PROCEDURE FILM DIGITAL LEFT Routine 02/07/2015 2:12 PM EDT Mass documented in this encounter Results * MM POST PROCEDURE FILM DIGITAL LEFT (02/07/2015 2:12 PM EDT) Anatomical Region Laterality Modality Breast Left Mammography 02/08/2015 9:22 AM EDT Narrative 02/08/2015 4:30 PM EDT MM POST PROCEDURE FILM DIGITAL LEFT ULTRASOUND ??GUIDED VACUUM ASSISTED LEFT BREAST BIOPSY WITH CLIP PLACEMENT AND A POST PROCEDURE TWO VIEW MAMMOGRAM 02-07-15: ~ HISTORY: ??64-year-old female who recently presented with left nipple retraction. ??MRI evaluation detected multiple sites of abnormal enhancement involving the lateral and lower outer quadrant of the left breast. ??Follow up ultrasound described areas of ill defined shadowing for which biopsy was recommended. ~ The biopsy procedure with risk and benefit was explained and informed consent was obtained. ??Scanning of the entire lateral left breast does demonstrate multiple areas of subtle decreased echogenicity and shadowing. A more focal area in the posterior 2 to 3 o'clock position was ??targeted. The overlying skin was prepped and local anesthesia was obtained with Lidocaine under ultrasound guidance. ??Following the biopsy a marker clip was advanced into this site. ~ A post procedure two view mammogram demonstrates clip present in the retroareolar 2-3 o'clock position. The MRI findings were mammographically occult. ?There were no immediate complications. Further imaging follow up will be pending the final pathology results. Natasha Akers MD IMG MAMMOGRAPHY O RDERABLES Final Result documented in this encounter Visit Diagnoses Diagnosis Mass Localized superficial swelling, mass, or lump documented in this encounter Care Teams Dial Marker Relationship Specialty Start Date End Date Carlos Manuel Barragan [address] [place] [address] [address] [facility] [address] PCP - General 07/03/10 documented as of this encounter
--- OUTSIDE RECORDS SUMMARY | 2024-05-04 22:56 | XMS_ITS | Encounter Summary ---
Author Organization [place] [address] Care Team Providers Care International Student Advisor Name Role Phone Carlos Manuel Barragan Primary Care Provider [phone] Reason for Visit * Reason Comments Other personal and family history of cancer Encounter Details Date Type Department Care Team (Latest Contact Info) Description 02/13/2015 3:26 PM EDT - 02/13/2015 4:32 PM EDT Hospital Encounter [facility] 3rd [place] [address] Counseling, Edg Genetic Malignant neoplasm of female breast, unspecified laterality, unspecified site of breast (HCC) (Primary Dx) [...] documented in this encounter Progress Notes * Pita White, [facility] - 02/13/2015 4:28 PM EDT Cancer Risk Assessment Summary RE: Diamante Edouard : 1950 Consultation Date: 02/13/15 REASON FOR REFFERAL: Ms. Edouard was seen for genetic counseling regarding her personal and family history. Together we discussed hereditary breast and ovarian cancer syndrome (HBOC). Medical History: Ms. Edouard is a 64-year-old, post-menopausal, woman who was recently diagnosed with invasive grade 1 lobular carcinoma of the left breast. Treatment is pending. Ms. Edouard reports age at menarche as 13. She was 40 at the time of her first live . Ms. Edouard reports breast feeding for several months. She reports having Pap Smears performed annually and reports they havebeen normal. Her uterus and ovaries are intact. She reports annual mammography and reports no previous history of a breast biopsy. She reports that she has had several colonoscopies and that no polyps have been detected. Ms. Edouard reports taking oral contraceptives for approximately 30 years. She reports taking hormone replacement therapy until recently. Ms. Edouard denies any exposures of concern. RELEVANT FAMILY HISTORY: A copy of Ms. Edouard's pedigree is available for review under the [employer] [facility]. CLINICAL IMPRESSION and COUNSELING: The underlying genetic basis of cancer was discussed in detail. Although most cancers are the result of mutations acquired during a person???s lifetime due to chance, aging, environment, and lifestyle, a small proportion of all cancers occur in individuals with an inherited mutation in a cancer susceptibility gene. Features of a family history associated with an increased likelihood of a hereditary susceptibility to cancer include: several relatives with the same cancer or a specific cluster ofcancers (e.g. breast and ovarian; multiple thyroid; colon and uterine, etc.) in two or more generations, younger ages of diagnosis, individuals with multiple primary cancers or bilateral disease, and the presence of rare cancers. We reviewed features of hereditary cancer in Ms. Edouard???s family including her sister's diagnosis of breast cancer in addition to her own diagnosis, as well as her mother's history of ovarian cancer. Therefore, at this time, there are enough features of a hereditary cancer risk to warrant the consideration of genetic testing. GENE DX More recently, clinical diagnostic testing has become available for more rare hereditary cancer related genes in the form of comprehensive panel testing. Ms. Edouard elected to proceed with BRCA1/2 testing, reflex to panel testing if negative. A sample was collected for BRCA1/2 analysis, reflex to the breast and ovarian cancer panel offered through [facility]. The panel includes testing for the following 21 genes associated with breast and/or additional types of cancer: SHARON, BARD1, BRCA1, BRCA2, BRIP1, CDH1, CHEK2, EPCAM, FANCC, MLH1, MSH2, MSH6, NBN, PALB2, PMS2, PTEN, RAD51C, RAD51D, STK11, TP53 and XRCC2. Results pending??? Upon availability of results, they will be disclosed to Ms. Edouard and further recommendations can be reviewed as necessary. She was provided with written information and my direct contact information. She was encouraged to call with further questions or concerns. Pita White MS, GC documented in this encounter Consult Notes * Pita White CGC - 03/23/2015 12:00 AM EDT HERITARY CANCER COUNSELING PROGRAM [facility], [place] [address] NAME: DIAMANTE EDOUARD [facility]#: [id number] : 1950 DICTATOR: Pita Smith Genetic Counselor Cb White Cancer Risk Assessment Summary Page 1 [facility] Cancer Genetics March 23, 2015 RE: Diamante Edouard : 1950 Consultation Date: 02/13/2015 Referring Provider: Steven Crouch M.D. REASON FOR REFFERAL: Ms. Edouard was seen for genetic counseling regarding her personal and family history. Together we discussed hereditary breast and ovarian cancer syndrome (HBOC). MEDICAL HISTORY: Ms. Edouard is a 64-year-old, post-menopausal, woman who was recently diagnosed with invasive grade 1 lobular carcinoma of the left breast. Treatment is pending. Ms. Edouard reports age at menarche as 13. She was 40 at the time of her first live . Ms. Edouard reports breast feeding for several months. She reports having Pap Smears performed annually and reports they havebeen normal. Her uterus and ovaries are intact. She reports annual mammography and reports no previous history of a breast biopsy. She reports that she has had several colonoscopies and that no polyps have been detected. Ms. Edouard reports taking oral contraceptives for approximately 30 years. She reports taking hormone replacement therapy until recently. Ms. Edouard denies any exposures of concern. RELEVANT FAMILY HISTORY: A copy of Ms. Edouard's pedigree is available for review under the [employer]. CLINICAL IMPRESSION and COUNSELING: The underlying genetic basis of cancer was discussed in detail.Although most cancers are the result of mutations acquired during a persons lifetime due to chance,aging, environment, and lifestyle, a small proportion of all cancers occur in individuals with an inherited mutation in a cancer susceptibility gene. Features of a family history associated with an increased likelihood of a hereditary susceptibility to cancer include: several relatives with the same cancer or a specific cluster of cancers (e.g. breast and ovarian; multiple thyroid; colon and uterine, etc.) in two or more generations, younger ages of diagnosis, individuals with multiple primary cancers or bilateral disease, and the presence of rare cancers. We reviewed features of hereditary cancer in Ms. Sarabia family including her sister's diagnosis of breast cancer in addition to her own diagnosis, as well as her mother's history of ovarian cancer. Therefore, at this time, there are enough features of a hereditary cancer risk to warrant the consideration of genetic testing. TESTING DECISION: More recently, clinical diagnostic testing has become available for more rare hereditary cancer related genes in the form of comprehensive panel testing. Ms. Edouard elected to proceed with Breast and Ovarian Cancer Panel through [id number] laboratory, which evaluates the following 21 genes associated with breast and/or additional types of cancer: SHARON, BARD1, BRCA1, BRCA2, BRIP1, CDH1, CHEK2, EPCAM, FANCC, MLH1, MSH2, MSH6, NBN, PALB2, PMS2, PTEN, RAD51C, RAD51D, STK11, TP53 and XRCC2. RESULTS: I contacted Ms. Edouard to review the results of her genetic testing on 03/20/2015. The results of her Breast and Ovarian Cancer Panel through [facility] laboratory are negative, indicating no genetic mutations were detected in genes analyzed. Negative test results indicate that no variants [...] it is believed that some genetic mutations occur in portions of the gene which cannot be tested for at this time. This means some genetic mutations will not be detected by this test. It is vital that all family members continue to screen for cancer based on the family history, as it is still possible that a genetic cause of breast cancer exists in the family. Specifically, we encourage all females in the family, such as Ms. Edouard' daughter, to discusstheir family history of breast cancer with their physicians and to begin annual mammograms beginning at no later than age 40. We encourage Ms. Edouard to contact us with any changes to her personal and/or family history of cancer, as this may modify recommendations for genetic testing or cancer screening. We encourage her to contact our office with any questions or concerns. We appreciate having been asked to participate in the care of your patient. If you have any questions regarding this consultation, please contact us at [phone]. REVIEWED BY: Steven Crouch M.D. Surgical Oncology Hereditary Cancer Program Sincerely, Pita White Genetic Counselor By: Alona/donna Job ID: [id number] DocID: [id number] documented in this encounter Plan of Treatment Upcoming Encounters Date Type Department Care Team (Late st Contact Info) Description 05/24/2024 10:30 AM EST Office Visit [facility] [address] [address] Nikolas Jha, DPMitzi [address] [facility] [address] [place] [address] documented as of this encounter Procedures Procedure Name Priority Date/Time Associated Diagnosis Comments SCANNED LABS 03/21/2015 10:09 AM EDT SCANNED LABS 03/01/2015 1:13 PM EDT documented in this encounter Results * SCANNED LABS (03/21/2015 10:09 AM EDT) 03/21/2015 10:0 9 AM EDT us Unknown Unknown HEMATOLOGY ORDERABLES Final Resu lt * SCANNED LABS (03/01/2015 1:13 PM EDT) 03/01/2015 1:13 PM EDT us Unknown Unknown HEMATOLOGY ORDERABLES Final Resu lt documented in this encounter Visit Diagnoses Diagnosis Malignant neoplasm of female breast, unspecified laterality, unspecified site of breast- Primary documented in this encounter Care Teams International Student Advisor Relationship Specialty Start Date End Date Carlos Manuel Barragan [facility] [address] [place] [address] PCP - General 07/03/10 documented as of this encounter
--- OUTSIDE RECORDS SUMMARY | 2024-05-04 22:56 | XMS_ITS | Encounter Summary ---
Author Organization [place] [address] Care Team Providers Care Incinerator Attendant Name Role Phone Carlos Manuel Barragan Primary Care Provider [phone] Encounter Details Date Type Department Care Team (Late st Contact Info) Description 02/14/2015 Orders Only [facility]g [address] [facility] [address] [place] [address] Greer Rosario RMA Malignant neoplasm [...] Addendum Note - Dany Crouch MD - 02/15/2015 6:55 AM EDTAddended by: DANY CROUCH on: 02/15/2015 06:55 AM Modules accepted: Orders documented in this encounter Plan of Treatment Upcoming Encounters Date Type Department Care Team (Late st Contact Info) Description 05/24/2024 10:30 AM EST Office Visit [facility] [place] [address] [place] [address] Nikolas Jha DPM [address] [facility] [address] [place] [address] documented as of this encounter Visit Diagnoses Diagnosis Malignant neoplasm of left female breast, unspecified site of breast- Primary documented in this encounter Care Teams Incinerator Attendant Relationship Specialty Start Date End Date Carlos Manuel Barragan [address] [facility] [address] [place] [address] PCP - General 07/03/10 documented as of this encounter
--- OUTSIDE RECORDS SUMMARY | 2024-05-04 22:56 | XMS_ITS | Encounter Summary ---
Author Organization [place] [address] Care Team Providers Care Manager Financial Name Role Phone Carlos Manuel Barragan Primary Care Provider [phone] Reason for Referral * Mammography (Routine) - Closed Specialty Diagnoses / Procedures Referred By Contac t Referred To Contact Radiology Diagnoses Inversion, nipple Procedures MM MAMMO DIGITAL DIAGNOSTIC W CAD LEFT Natasha Akers MD [address] [place] [address] Phone: tel: fax: Referral ID Status Reason Start Date Expiration Date Visits Re quested Visits Authorized [id number] Closed 01/16/2015 01/16/2016 1 1 Reason for Visit * Reason Comments Gynecologic Exam Encounter Details Date Type Department Care Team (Latest Contact Info) Description 01/16/2015 1:40 PM EDT [facility] [address] [place] [phone] Natasha Akers MD [address] [place] [id number] Routine gynecological examination (Primary Dx); Inversion, nipple Social History Tobacco Use Types Packs/Day Years [...] Sign Reading Time Taken Comments Blood Pressure 122/80 01/16/2015 1:54 PM EDT Pulse - - Temperature - - Respiratory Rate - - Oxygen Saturation - - Inhaled Oxygen Concentration - - Weight 92.1 kg (203 lb) 01/16/2015 1:54 PM EDT Height 167.6 cm (5' 6 ) 01/16/2015 1:54 PM EDT Body Mass Index 32.77 01/16/2015 1:54 PM EDT documented in this encounter Progress Notes * Natasha Akers MD - 01/18/2015 5:06 PM EDT Subjective Subjective: Patient ID: Juany Alarcon is a 64 y.o. female. Chief Complaint Patient presents with ??? Gynecologic Exam HPI Pt is a 64 yo here for annual exam. Previous patient of Dr lakhani. She has been on Activella but weaned herself off and has been off several weeks. Doing okay. She had normal Mammogram 09/07 however in last 2 weeks has had complete inversion of left nipple which she has never had Up to date on DEXA and colonoscopy, done through PCP at [facility] Has 23 yo daughter. 2 grandsons Patients past medical, family and social histories were reviewed and updated. There were no changesexcept as noted. Review of Systems ROS were reviewed and all negative except those mentioned in the HPI Objective Objective: Filed Vitals: 01/16/15 1354 BP: 122/80 Height: 5' 6 (1.676 m) Weight: 203 lb (92.08 kg) Body mass index is 32.78 kg/(m^2). Physical Exam Constitutional: She appears well-developed and well-nourished. Neck: No thyromegaly present. Pulmonary/Chest: Effort normal. Right breast exhibits no mass, no nipple discharge and no skin change. Left breast exhibits inverted nipple. Left breast exhibits no mass, no nipple discharge and no skin change. Abdominal: Soft. She exhibits no distension and [...] seen today for gynecologic exam. Diagnoses and associated orders for this visit: Routine gynecological examination - Cytology, Department Specialist Request (PAP Only); Future Inversion, nipple - Cancel: MM US BREAST COMPLETE LEFT; Future - Mammography digital diagnostic with CAD left; Future - MM US BREAST LIMITED RIGHT; Future No Follow-up on file. documented in this encounter Miscellaneous Notes * Patient Instructions - Latoya Bai, RMA - 01/16/2015 1:54 PM EDT You may be contacted by mail or e-mail to participate in a patient satisfaction survey regarding your office visit today. We value your opinion and depend on your feedback to make improvements and provide you with the best possible experience while receiving high quality medical treatment. Your time in completing this survey is greatly appreciated. Bone Health Our bones do many things. They provide structure, protect organs, anchor muscles, and store calcium. Adequate calcium in your diet and weight-bearing physical activity help build strong bones, improve bone amounts, and may reduce the risk of weakening of bones (osteoporosis) later in life. PEAK BONE MASS By age 20, the average woman has acquired most of her skeletal bone mass. A large decline occurs inolder adults which increases the risk of osteoporosis. In women this occurs around the time of menopause. It is important for young girls to reach their peak bone mass in order to maintain bone health throughout life. A person with high bone mass as a young adult will be more likely to have a higher bonemass later in life. Not enough calcium consumption and physical activity early on could result in afailure to achieve optimum bone mass in adulthood. OSTEOPOROSIS Osteoporosis is a disease of the bones. It is defined as low bone mass with deterioration of bone structure. Osteoporosis leads to an increase risk of fractures with falls. These fractures commonly happen in the wrist, hip, and spine. While men and women of all ages and background can develop osteoporosis, some of the risk factors for osteoporosis are: ?? Female. ?? White. ?? Postmenopausal. ?? Older adults. ?? Small in body size. ?? Eating a diet low in calcium. ?? Physically inactive. ?? Smoking. ?? Use of some medications. ?? Family history. CALCIUM Calcium is a mineral needed by the body for healthy bones, teeth, and proper function of the heart,muscles, and nerves. The body cannot produce calcium so it must be absorbed through food. Good sources of calcium include: ?? Dairy products (low fat or nonfat milk, cheese, and yogurt). ?? Dark green leafy vegetables (bok helen and broccoli). ?? Calcium fortified foods (orange juice, cereal, bread, soy beverages, and tofu products). ?? Nuts (almonds). Recommended amounts of calcium vary for individuals. RECOMMENDED CALCIUM INTAKES Age and Amount in mg per day ?? Children 1 to 3 years / 700 mg ?? Children 4 to 8 years / 1,000 mg ?? Children 9 to 13 years / 1,300 mg ?? Teens 14 to 18 years / 1,300 mg ?? Adults 19 to 50 years / 1,000 mg ?? Adult women 51 to 70 years / 1,200 mg ?? Adults 71 years and older / 1,200 mg ?? and teens / 1,300 mg ?? and adults / 1,000 mg Vitamin D also plays an important role in healthy bone development. Vitamin D helps in the absorption of calcium. WEIGHT-BEARING PHYSICAL ACTIVITY Regular physical activity has many positive health benefits. Benefits include strong bones. Weight-bearing physical activity early in life is important in reaching peak bone mass. Weight-bearing physical activities cause muscles and bones to work against gravity. Some examples of weight bearing physical activities include: ?? Walking, jogging, or running. ?? Field Hockey. ?? Jumping rope. ?? Dancing. ?? Soccer. ?? Tennis or Racquetball. ?? Stair climbing. ?? Basketball. ?? Hiking. ?? Weight lifting. ?? Aerobic fitness classes. Including weight-bearing physical activity into an exercise plan is a great way to keep bones healthy. Adults: Engage in at least 30 minutes of moderate physical activity on most, preferably all, days of the week. Children: Engage in at least 60 minutes of moderate physical activity on most, preferably all, daysof the week. FOR MORE INFORMATION [place] Department of Agriculture, Center for Nutrition Policy and Promotion: www.cnpp.usda.gov National Osteoporosis Foundation: www.nof.org Document Released: 08/01/2004 Document Revised: 09/06/2013 Document Reviewed: 11/01/2009 ExitCare?? Patient Information ??2015 Private.Me. This information is not intended to replace advice given to you by your health care provider. Make sure you discuss any questions you have with your health care provider. documented in this encounter Plan of Treatment Upcoming Encounters Date Type Department Care Team (Late st Contact Info) Description 05/24/2024 10:30 AM EST Office Visit [facility] [address] [place] [phone] Nikolas Jha DPM [address] [place] [address] [address] [place] [phone] Scheduled Orders Name Type Priority Associated Diagnoses Orde r Schedule ENTRY ENGINEER CYTOLOGY REQUEST (PAP ONLY) Lab Routine Routine gynecological examination 1 Occurrences starting 01/16/2015 until 01/17/2016 documented as of this encounter Results * MM MAMMO DIGITAL DIAGNOSTIC W CAD LEFT (01/23/2015 11:22 AM EDT) Anatomical Region Laterality Modality Breast Left Mammography 01/24/2015 9:44 AM EDT Impressions 01/26/2015 7:40 AM EDT : Incomplete-need additional imaging evaluation ([id number]) ~ RECOMMENDATION: Ultrasound of the left breast. ~ , this ultrasound examination was performed on ??01-23-15 and will be reported separately. ~ * The patient with a palpable [...] reviewed by a Radiologist and CAD. Narrative 01/26/2015 7:40 AM EDT Procedure:MM MAMMO DIGITAL DIAGNOSTIC W CAD LEFT ~ Reason for exam: clinical finding. Indicated problem(s): other indicated problem in the left breast. ~ MM MAMMO DIGITAL DIAG CAD LEFT CC and MLO view(s) were taken of the left breast. Technologist: Fernanda Johnston, mammo tech FTT The breast tissue is heterogeneously dense. ??This may lower the sensitivity of mammography. ??No discrete mass. No suspicious calcifications Compared to prior studies the most recent being 09-06-14. ~ us Natasha Akers MD IMG MAMMOGRAPHY O RDERABLES Final Result documented in this encounter Visit Diagnoses Diagnosis Routine gynecological examination- Primary Inversion, nipple Other sign and symptom in breast Inversion, nipple Other sign and symptom in breast documented in this encounter Discontinued Medications Medication Sig Discontinue Reason Start Date End Da te gabapentin (NEURONTIN) 100 mg tablet Take 100 mg by mouth nightly. DELETE-Therapy completed 01/16/2015 documented as of this encounter Historical Medications * This list may reflect changes made after this encounter. montelukast (SINGULAIR) 10 mg Oral Tablet Take 10 mg by mouth every evening. lactobacillus rhamnosus, GG, (CULTURELLE) 10 billion cell Oral Capsule Take 1 Cap by mouth daily. 05/24/2015 potassium chloride SA (K-DUR;KLOR-CON) 20 mEq Oral Tab Sust.Rel. Particle/Crystal Take 20 mEq by mouth daily. 03/16/2024 added in this encounter Care Teams Manager Financial Relationship Specialty Start Date End Date Carlos Manuel Barragan [address] [place] [address] [address] [place] [address] PCP - General 07/03/10 documented as of this encounter
--- OUTSIDE RECORDS SUMMARY | 2024-05-04 22:56 | XMS_ITS | Encounter Summary ---
Author Organization [place] [address] Care Team Providers Care Electric Motor Repair Supervisor Name Role Phone Carlos Manuel Barragan Primary Care Provider [phone] Encounter Details Date Type Department Care Team (Latest Contact Info) Description 02/13/2015 4:33 PM EDT - 02/13/2015 11:59 PM EDT [facility] [place] [id number] Malignant neoplasm of breast (female), unspecified laterality (HCC) (Primary Dx) Discharge Disposition: Home or [...] [address] [place] [address] Nikolas Jha, DPM [address] [facility] [address] [place] [address] Scheduled Orders Name Type Priority Associated Diagnoses Orde r Schedule OP VENIPUNCTURE CHARGE Lab Timed Malignant neoplasm of breast (female), unspecified laterality (HCC) One Time for 1 Occurrences starting 02/13/2015 until 02/13/2015 documented as of this encounter Procedures Procedure Name Priority Date/Time Associated Diagnosis Comments MISCELLANEOUS LAB Routine 02/13/2015 4:3 5 PM EDT Malignant neoplasm of breast (female), unspecified laterality (HCC) documented in this encounter Results * MISCELLANEOUS LAB (02/13/2015 4:35 PM EDT) Blood specimen (specimen) 02/13/2015 4:35 PM EDT 02/13/2015 4:36 PM EDT Narrative [facility] - 02/14/2015 7:40 AM EDT Gene Dx kit us Pita Sethi [facility] HEMATOLOGY ORDERABLES Final R esult [facility] [address] [place] [address] documented in this encounter Visit Diagnoses Diagnosis Malignant neoplasm of breast (female), unspecified laterality- Primary documented in this encounter Care Teams Electric Motor Repair Supervisor Relationship Specialty Start Date End Date Carlos Manuel Barragan [address] [facility] [address] [place] [address] PCP - General 07/03/10 documented as of this encounter
--- OUTSIDE RECORDS SUMMARY | 2024-05-04 22:56 | XMS_ITS | Encounter Summary ---
Author Organization [place] [address] Care Team Providers Care Architectural Associate Name Role Phone Carlos Manuel Barragan Primary Care Provider [phone] Reason for Visit * Reason Onset Date Comments Abnormal Radiology 01/31/2015 Encounter Details Date Type Department Care Team (Late st Contact Info) Description 01/31/2015 Telephone [facility] [address] [place] [address] Kaykay Oliveira, Clerical Staff Abnormal Radiology Social History Tobacco Use Types Packs/Day Years [...] encounter Miscellaneous Notes * Telephone Encounter - Kaykay Oliveira, Clerical Staff - 02/06/2015 8:34 AM EDT Pt. Has her left breast ultrasound on 02/03/15 and is now scheduled for Biopsy on 02/07/15 at [facility]. * Telephone Encounter - Kaykay Oliveira, Clerical Staff - 02/02/2015 9:28 AM EDT Pt. Called and cancelled her appointment for the second look ultrasound. She wants to speak to her doctor first and then she will reschedule. * Telephone Encounter - Corry Frazier RN - 01/31/2015 10:28 AM EDT Called and spoke with patient, informed of need for recommended second look ultrasound per recent MRI, pt states understanding. Transferred to scheduling, appointment is 02/02 in [facility] @ 10:30AM * Telephone Encounter - Kaykay Oliveira, Clerical Staff - 01/31/2015 9:18 AM EDT Insurance [facility] The ordering physician is Dr. Natasha Akers NOTE: second look ultrasound following MRI documented in this encounter Plan of Treatment Upcoming Encounters Date Type Department Care Team (Late st Contact Info) Description 05/24/2024 10:30 AM EST Office Visit [facility] [address] [place] [phone] Nikolas Jha DPM [address] [place] [address] [address] [place] [address] documented as of this encounter Visit Diagnoses Not on filedocumented in this encounter Care Teams Architectural Associate Relationship Specialty Start Date End Date Carlos Manuel Barragan [address] [facility] [address] [facility] [address] PCP - General 07/03/10 documented as of this encounter
--- OUTSIDE RECORDS SUMMARY | 2024-05-04 22:56 | XMS_ITS | Encounter Summary ---
Author Organization [facility] [place] [address] Care Team Providers Care Resident Care Aid Name Role Phone Carlos Manuel Barragan Primary Care Provider [phone] Encounter Details Date Type Department Care Team (Latest Contact Info) Description 02/09/2015 10:53 AM EDT - 02/09/2015 11:59 PM EDT Hospital Encounter [facility] [place] [address] Discharge Disposition: Home or Self Care Social [...] 10:30 AM EST Office Visit [facility] [place] [address] [place] [address] Nikolas Jha, SURENDRA [address] [facility] [address] [place] [address] documented as of this encounter Visit Diagnoses Not on filedocumented in this encounter Care Teams Resident Care Aid Relationship Specialty Start Date End Date Carlos Manuel Barragan [address] [facility] [address] [place] [address] PCP - General 07/03/10 documented as of this encounter
--- OUTSIDE RECORDS SUMMARY | 2024-05-04 22:56 | XMS_ITS | Encounter Summary ---
Author Organization [place] [address] Care Team Providers Care Self Pay Collector Name Role Phone Carlos Manuel Barragan Primary Care Provider Reason for Visit * Mammography (Routine) - Closed Specialty Diagnoses / Procedures Referred By Heather santos Referred To Contact Radiology Diagnoses Mass Procedures MM US BREAST BIOPSY LEFT Natasha Akers MD [address] [place] [address] Phone: tel: fax: Referral ID Status Reason Start Date Expiration Date Visits Re quested Visits Authorized [id number] Closed 02/03/2015 02/03/2016 1 1 Encounter Details Date Type Department Care Team (Latest Contact Info) Description 02/07/2015 12:24 PM EDT - 02/07/2015 12:26 PM EDT Hospital Encounter [facility] [place] [address] Natasha Akers MD [address] [place] [address] Mass Discharge Disposition: Home or Self Care [...] on file documented as of this encounter Discharge Instructions * Discharge Instructions* Dena Youssef RT - 02/07/2015 1:01 PM EDT You may resume your at home medications in the next 24-48 hours, unless otherwise directed by your physician documented in this encounter Medications at Time [...] 10:30 AM EST Office Visit [facility] [address] [place] [phone] Nikolas Jha DPM [address] [place] [address] RD [address] [place] [phone] documented as of this encounter Procedures Procedure Name Priority Date/Time Associated Diagnosis Comments SCANNED PATHOLOGY REPORT 02/20/2015 7:57 AM EDT ADDENDUM REPORT Routine 02/07/2015 2:11 PM EDT PATHOLOGY TISSUE REPORT Routine 02/07/2015 2:11 PM EDT MM US BREAST BIOPSY LEFT Routine 02/07/2015 1:48 PM EDT Mass documented in this encounter Results * SCANNED PATHOLOGY REPORT (02/20/2015 7:57 AM EDT) 02/20/2015 7:57 AM EDT us Unknown Unknown PATHOLOGY ORDERABLES Final Resul t * ADDENDUM REPORT (02/07/2015 2:11 PM EDT) Addendum Report ? PATIENT NAME:DIAMANTE EDOUARD ? Addendum Report ? Accession Number ?Collected Date/Time ? Received Date/Time ? [id number] ? 02/07/15 14:11 EDT ?02/07/15 14:34 EDT ? Addendum Discussion ? Breast Biomarker Reporting Template for ER, PgR and HER2 by IHC ? --------- ? TEST ?RESULT ?% of nuclei staining/Intensity/All red Score ? ER by IHC ? Positive ? 97% ??/ ??3+ / 8 ? PgR by IHC ? Positive ? 49% ??/ ??3+ / 7 ? HER2 by IHC ??Equivocal ? 2+ ? --- ? Estrogen Receptor (ER) Status: Positive ? Internal control cells present and stain as expected ? Progesterone Receptor (R) Status: Positive ? Internal control cells present and stain as expected ? Percentage of cells with uniform intense complete HER2 membrane staining: ? 0% ? HER2 (ERBB2) (by in situ hybridization) FISH: PENDING ? METHODS ? + Testing Performed on Block Number(s): 1B ? Fixative: Formalin ? Estrogen Receptor: Food and Drug Administration (FDA) cleared, Primary ? Antibody: 6F11 ? The ER slides were incubated with the 6F11 monoclonal anti-ER antibody from ? Leica at a 1:250 dilution for 30 minutes following heat induced antigen ? retrieval in EDTA buffer. Visualization was achieved with Daily Dealy ? Gun.io Polymer - horse radish peroxidase polymer detection system. ? The slides were then counterstained with Daily Dealy haematoxylin for ? 5 minutes. ? Progesterone Receptor: Food and Drug Administration (FDA) cleared, Primary ? Antibody:1294 ? The MS slides were incubated with the PgR 1294 monoclonal anti-MS antibody ? from Dako at a 1:6,000 dilution for 30 minutes following heat induced ? epitope retrieval in citrate buffer. Visualization was achieved with [employer] ? Aigou Poly-HRP detection system. The slides were then ? counterstained with Dako hematoxylin for 1 minute. ? HER2 Expression: Food and Drug Administration (FDA) cleared, Primary ? Antibody: HercepTest ? The HER2/ignacio slides were stained with the HercepTest from Dako in ? accordance with the FDA approved guidelines including water bath epitope ? retrieval in epitope retrieval buffer and visualization with the envision ? plus horseradish peroxidase detection system. The slides were digitally ? imaged using the [employer] ScanScope AT platform and may have been interpreted ? with the aid of [employer] image analysis software. All controls were reviewed ? and showed appropriate positive and negative immunoreactivity. ? The slides were digitally imaged using the [employer] ScanScope AT platform and ? may have been interpreted with the aid of [employer] image analysis ? software.All controls were reviewed and showed appropriate positive and ? negative immunoreactivity. ? This test was developed and its performance characteristics determined by ? [facility] It ? has not been cleared or approved by the U.S. Food and Drug Administration. ? The FDA has determined that such ? clearance or approval is not necessary. This test is used for clinical ? purposes. It should not be regarded as ? Investigational or for research. This laboratory is certified under the ? Clinical Laboratory Improvement Amendments ? of 1988 (CLIA-88) as qualified to perform high complexity clinical ? laboratory testing. ? REFERENCE RANGES: ??ER and PgR: ??Positive: ??>=1% ?Negative: ??< 1% ? HER-2: ?NEGATIVE: 0-1+ ?EQUIVOCAL: ??2+ ?POSITIVE: ??3+ ? FIXATIVE: 10% neutral buffered formalin (6-72 hours) and Cold Ischemic time ? of less than 1 hour. ? (Estrogen Receptor clone 6F11; Leica, IVD) (Progesterone Receptor clone ? 1294; DAKO, IVD) ? (HER2 DAKO HercepTest polyclonal FDA approved) ? NOTE: ??The specimen was handled according to the most recent ASCO/CAP ? guidelines (1,2). ??The technical component for ER, PgR, and HER-2 by IHC ? was performed by [facility] ??Interpretation was ? performed by a [facility] Pathologist with computer assisted image ? analysis (ASCO/CAP scoring guidelines were used for HER-2). ??All controls ? stain appropriately. ? References: 1) Ry AGUIAR, Gretchen SADLER, Bucky DG, et al. Recommendations for ? human epidermal growth factor receptor 2 testing in breast cancer; [place] ? Society of Clinical Oncology/College of [place] Pathologists. Arch Pathol ? Lab Med 2014;138(2):241-256 ? (2) Jody Godinez et al; [place] Society of Clinical ? Oncology/College of Citizen [place] Pathologists Guideline Recommendations for ? Immunohistochemical Testing of Estrogen and Progesterone Receptors in ? Breast Cancer. Arch Pathol Lab Med 2010; 134: 907- ? 922 ? Jannet Bearden ? (Electronically signed by) ? Verified: 02/17/2015 ? [facility] ?Surgical Pathology Report ? Accession Number ?Collected Date/Time ? Received Date/Time ? [id number] ? 02/07/15 14:11 EDT ?02/07/15 14:34 EDT ? Diagnosis ? Left breast mass, 2-3:00, core biopsy: ? - Invasive grade 1 lobular carcinoma, scattered small foci, see comment. ? Jannet Bearden ? (Electronically signed by) ? Verified: 02/08/2015 ? [facility] ? Comment ? Several tumor foci less than 1 mm are irregularly scattered among the ? cores. ??The tumor consists of small nests, cords and compressed tubules ? that lack ecadherin, p63 and smooth muscle actin staining, supporting the ? interpretation. ??Because of the limited amount of tumor tissue, biomarker ? analysis will be deferred to the excised tumor. ? The most recent radiologic imaging reports were reviewed. ??This case was ? reviewed by a second departmental pathologist with diagnostic agreement./MR ? Clinical Information ? Mass, 2-3 o'clock left breast, Cat 5. ? Gross Description ? Received in formalin labeled with the patient's name and mass 2 to 3 ? o'clock left breast are 8 cores of fibrofatty tissue (inked black), each ? 1-2 mm in diameter, with lengths ranging from 0.5 to 2.0 cm. ??Entirely ? submitted in 2 cassettes. /BC ? Core removal time: 1:35 ? Formalin time: 1:43 ? Core time to formalin: ??8 minutes. ? DRB/DE ? Microscopic Description ? Microscopic examination is performed and the findings corroborate the ? diagnosis. [facility] 02/07/2015 2:11 PM EDT us Natasha Akers MD PATHOLOGY ORDERAB LES Final Result [facility] [address] [place] [address] * PATHOLOGY TISSUE REPORT (02/07/2015 2:11 PM EDT) Surgical Pathology Report ? PATIENT NAME:DIAMANTE EDOUARD ?Surgical Pathology Report ? Accession Number ?Collected Date/Time ? Received Date/Time ? [id number] ? 02/07/15 14:11 EDT ?02/07/15 14:34 EDT ? Diagnosis ? Left breast mass, 2-3:00, core biopsy: ? - Invasive grade 1 lobular carcinoma, scattered small foci, see comment. ? Jannet Bearden ? (Electronically signed by) ? Verified: 02/08/2015 ? [facility] ? Comment ? Several tumor foci less than 1 mm are irregularly scattered among the ? cores. ??The tumor consists of small nests, cords and compressed tubules ? that lack ecadherin, p63 and smooth muscle actin staining, supporting the ? interpretation. ??Because of the limited amount of tumor tissue, biomarker ? analysis will be deferred to the excised tumor. ? The most recent radiologic imaging reports were reviewed. ??This case was ? reviewed by a second departmental pathologist with diagnostic agreement./MR ? Clinical Information ? Mass, 2-3 o'clock left breast, Cat 5. ? Gross Description ? Received in formalin labeled with the patient's name and mass 2 to 3 ? o'clock left breast are 8 cores of fibrofatty tissue (inked black), each ? 1-2 mm in diameter, with lengths ranging from 0.5 to 2.0 cm. ??Entirely ? submitted in 2 cassettes. /BC ? Core removal time: 1:35 ? Formalin time: 1:43 ? Core time to formalin: ??8 minutes. ? DRB/DE ? Microscopic Description ? Microscopic examination is performed and the findings corroborate the ? diagnosis. [facility] 02/07/2015 2:11 PM EDT Natasha Akers MD PATHOLOGY ORDERAB LES Final Result [facility] [address] [place] [address] * MM US BREAST BIOPSY LEFT (02/07/2015 1:48 PM EDT) Anatomical Region Laterality Modality Breast Left Mammography 02/08/2015 9:22 AM EDT Narrative 02/08/2015 4:30 PM EDT MM US BREAST BX LEFT ULTRASOUND ??GUIDED VACUUM ASSISTED LEFT BREAST [...] will be pending the final pathology results. ~ Pathology Results: Malignant Malignant invasive lobular carcinoma. ~ RECOMMENDATION: Surgical consultation. Natasha Akers MD IMG MAMMOGRAPHY O RDERABLES Edited Result - Final documented in this encounter Visit Diagnoses Diagnosis Mass Localized superficial swelling, mass, or lump documented in this encounter Orders Lab Orders Without Results Count Last Ordered D ate First Ordered Date PATHOLOGY TISSUE REQUEST 1 02/07/2015 documented in this encounter Care Teams Self Pay Collector Relationship Specialty Start Date End Date Carlos Manuel Barragan [address] [place] [address] [address] [facility] [address] PCP - General 07/03/10 documented as of this encounter
--- OUTSIDE RECORDS SUMMARY | 2024-05-04 22:56 | XMS_ITS | Encounter Summary ---
Author Organization [place] [address] Care Team Providers Care Brush Fabrication Supervisor Name Role Phone Carlos Manuel Barragan Primary Care Provider [phone] Reason for Visit * Reason Comments Gynecologic Exam Encounter Details Date Type Department Care Team (Latest Contact Info) Description 01/12/2014 10:20 AM EDT [facility] [address] [place] [phone] Raymond Noble MD Routine gynecological examination (Primary Dx) Social History Tobacco Use Types [...] Sign Reading Time Taken Comments Blood Pressure 127/70 01/12/2014 9:57 AM EDT Pulse 70 01/12/2014 9:57 AM EDT Temperature - - Respiratory Rate - - Oxygen Saturation - - Inhaled Oxygen Concentration - - Weight 91.2 kg (201 lb) 01/12/2014 9:57 AM EDT Height 167.6 cm (5' 6 ) 01/12/2014 9:57 AM EDT Body Mass Index 32.44 01/12/2014 9:57 AM EDT documented in this encounter Progress Notes * Rayomnd Noble MD - 01/17/2014 8:45 PM EDT Juany Alarcon is here for an Annual Exam. She is without reed cleaner complaints.she is still on Activelle and has not done well when she has stopped Patients past medical, family and social histories were reviewed and updated. There were no changes except as noted. Physical Exam Breast: Without masses or lesions Abdomin: Soft, without masses or tenderness Pelvic Exam: Vulva and Vagina - within normal limits Cervix - without lesions Uterus - within normal limits Adnexa - without masses or tenderness Rectal--negative IMP: nl exam. Continue Activelle Juany was seen today for gynecologic exam. Diagnoses and associated orders for this visit: Routine gynecological examination - Cytology, Nanotechnology Engineering Technologist Request (PAP Only); Future documented in this encounter Miscellaneous Notes * Patient Instructions - Diana Salazar MA - 01/12/2014 9:57 AM EDT Health Maintenance, Females A healthy lifestyle and preventative care can promote health and wellness. ?? Maintain regular health, dental, and eye exams. ?? Eat a healthy diet. Foods like vegetables, fruits, whole grains, low-fat dairy products, and lean protein foods contain the nutrients you need without too many calories. Decrease your intake of foods high in solid fats, added sugars, and salt. Get information about a proper diet from your caregiver, if necessary. ?? Regular physical exercise is one of the most important things you can do for your health. Most adults should get at least 150 minutes of moderate-intensity exercise (any activity that increases your heart rate and causes you to sweat) each week. In addition, most adults need muscle-strengtheningexercises on 2 or more days a week. ? Maintain a healthy weight. The body mass index (BMI) is a screening tool to identify possible weight problems. It provides an estimate of body fat based on height and weight. Your caregiver can help determine your BMI, and can help you achieve or maintain a healthy weight. For adults 20 years and older: ?? A BMI below 18.5 is considered underweight. ?? A BMI of 18.5 to 24.9 is normal. ?? A BMI of 25 to 29.9 is considered overweight. ?? A BMI of 30 and above is considered obese. ?? Maintain normal blood lipids and cholesterol by exercising and minimizing your intake of saturated fat. Eat a balanced diet with plenty of fruits and vegetables. Blood tests for lipids and cholesterol should begin at age 20 and be repeated every 5 years. If your lipid or cholesterol levels are high, you are over 50, or you are a high risk for heart disease, you may need your cholesterol levelschecked more frequently.??Ongoing high lipid and cholesterol levels should be treated with medicines if diet and exercise are not effective. ?? If you smoke, find out from your caregiver how to quit. If you do not use tobacco, do not start. ?? If you are , do not drink alcohol. If you are , be very cautious about drinking alcohol. If you are not and choose to drink alcohol, do not exceed 1 drink per day. One drink is considered to be 12 ounces (355 mL) of beer, 5 ounces (148 mL) of wine, or 1.5 ounces (44mL) of liquor. ?? Avoid use of street drugs. Do not share needles with anyone. Ask for help if you need support orinstructions about stopping the use of drugs. ?? High blood pressure causes heart disease and increases the risk of stroke. Blood pressure shouldbe checked at least every 1 to 2 years. Ongoing high blood pressure should be treated with medicines, if weight loss and exercise are not effective. ?? If you are 55 to 79 years old, ask your caregiver if you should take aspirin to prevent strokes. ?? Diabetes screening involves taking a blood sample to check your fasting blood sugar level. This should be done once every 3 years, after age 45, if you are within normal weight and without risk factors for diabetes. Testing should be considered at a younger age or be carried out more frequently if you are overweight and have at least 1 risk factor for diabetes. ?? Breast cancer screening is essential preventative care for women. You should practice breast self-awareness. This means understanding the normal appearance and feel of your breasts and may include breast self-examination. Any changes detected, no matter how small, should be reported to a caregiver. Women in their 20s and 30s should have a clinical breast exam (CBE) by a caregiver as part of a regular health exam every 1 to 3 years. After age 40, women should have a CBE every year. Startingat age 40, women should consider having a mammogram (breast X-ray) every year. Women who have a family history of breast cancer should talk to their caregiver about genetic screening. Women at a highrisk of breast cancer should talk to their caregiver about having an MRI and a mammogram every year. ?? The Pap test is a screening test for cervical cancer. Women should have a Pap test starting at age 21. Between ages 21 and 29, Pap tests should be repeated every 2 years. Beginning at age 30, you should have a Pap test every 3 years as long as the past 3 Pap tests have been normal. If you had a hysterectomy for a problem that was not cancer or a condition that could lead to cancer, then you nolonger need Pap tests. If you are between ages 65 and 70, and you have had normal Pap tests going back 10 years, you no longer need Pap tests. If you have had past treatment for cervical cancer or a condition that could lead to cancer, you need Pap tests and screening for cancer for at least 20 years after your treatment. If Pap tests have been discontinued, risk factors (such as a new sexual partner) need to be reassessed to determine if screening should be resumed. Some women have medical problems that increase the chance of getting cervical cancer. In these cases, your caregiver may recommend more frequent screening and Pap tests. ?? The human papillomavirus (HPV) test is an additional test that may be used for cervical cancer screening. The HPV test looks for the virus that can cause the cell changes on the cervix. The cells collected during the Pap test can be tested for HPV. The HPV test could be used to screen women aged30 years and older, and should be used in women of any age who have unclear Pap test results. Afterthe age of 30, women should have HPV testing at the same frequency as a Pap test. ?? Colorectal cancer can be detected and often prevented. Most routine colorectal cancer screening begins at the age of 50 and continues through age 75. However, your caregiver may recommend screening at an earlier age if you have risk factors for colon cancer. On a yearly basis, your caregiver mayprovide home test kits to check for hidden blood in the stool. Use of a small camera at the end of a tube, to directly examine the colon (sigmoidoscopy or colonoscopy), can detect the earliest forms of colorectal cancer. Talk to your caregiver about this at age 50, when routine screening begins. Direct examination of the colon should be repeated every 5 to 10 years through age 75, unless early forms of pre-cancerous polyps or small growths are found. ?? Hepatitis C blood testing is recommended for all people born from 1945 through 1965 and any individual with known risks for hepatitis C. ?? Practice safe sex. Use condoms and avoid high-risk sexual practices to reduce the spread of sexually transmitted infections (STIs). Sexually active women aged 25 and younger should be checked for Chlamydia, which is a common sexually transmitted infection. Older women with new or multiple partners should also be tested for Chlamydia. Testing for other STIs is recommended if you are sexually active and at increased risk. ?? Osteoporosis is a disease in which the bones lose minerals and strength with aging. This can result in serious bone fractures. The risk of osteoporosis can be identified using a bone density scan.Women ages 65 and over and women at risk for fractures or osteoporosis should discuss screening with their caregivers. Ask your caregiver whether you should be taking a calcium supplement or vitamin D to reduce the rate of osteoporosis. ?? Menopause can be associated with physical symptoms and risks. Hormone replacement therapy is available to decrease symptoms and risks. You should talk to your caregiver about whether hormone replacement therapy is right for you. ?? Use sunscreen with a sun protection factor (SPF) of 30 or greater. Apply sunscreen liberally andrepeatedly throughout the day. You should seek shade when your shadow is shorter than you. Protect yourself by wearing long sleeves, pants, a wide-brimmed hat, and sunglasses year round, whenever youare outdoors. ?? Notify your caregiver of new moles or changes in moles, especially if there is a change in shapeor color. Also notify your caregiver if a mole is larger than the size of a pencil eraser. ?? Stay current with your immunizations. Document Released: 11/25/2011 Document Revised: 08/03/2012 Document Reviewed: 11/25/2011 ExitCare?? Patient Information ??2013 [employer]. documented in this encounter Plan of Treatment Upcoming Encounters Date Type Department Care Team (Late st Contact Info) Description 05/24/2024 10:30 AM EST Office Visit [facility] [place] [address] [place] [address] [address] [place] [address] Abhijeet Nikolas Neil, DPM [address] [place] [address] [place] [phone] documented as of this encounter Visit Diagnoses Diagnosis Routine gynecological examination- Primary documented in this encounter Discontinued Medications Medication Sig Discontinue Reason Start Date End Da te POTASSIUM CITRATE ORAL Take by mouth. DELETE- Entered in Error 01/12/2014 documented as of this encounter Historical Medications * This list may reflect changes made after this encounter. POTASSIUM CITRATE ORAL Take by mouth. 01/12/2014 added in this encounter Orders Lab Orders Without Results Count Last Ordered D ate First Ordered Date CHIEF PHYSICAL THERAPIST CYTOLOGY REQUEST (PAP ONLY) 1 4 documented in this encounter Care Teams Brush Fabrication Supervisor Relationship Specialty Start Date End Date Carlos Manuel Barragan [address] [facility] [address] [place] [address] PCP - General 07/03/10 documented as of this encounter
--- OUTSIDE RECORDS SUMMARY | 2024-05-04 22:56 | XMS_ITS | Encounter Summary ---
Author Organization [place] [address] Care Team Providers Care Mask Former Name Role Phone Carlos Manuel Barragan Primary Care Provider [phone] Reason for Visit * Mammography (Routine) - Closed Specialty Diagnoses / Procedures Referred By Contniurka t Referred To Contact Radiology Diagnoses Inversion, nipple Procedures MM MAMMO DIGITAL DIAGNOSTIC W CAD LEFT Natasha Akers MD [address] [place] [address] Phone: tel: fax: Referral ID Status Reason Start Date Expiration Date Visits Re quested Visits Authorized [id number] Closed 01/16/2015 01/16/2016 1 1 Encounter Details Date Type Department Care Team (Latest Contact Info) Description 01/23/2015 10:48 AM EDT Hospital Encounter [facility] [address] [facility] [facility] [place], [place] [id number] Natasha Akers MD [address] [place] [address] Inversion, nipple Discharge Disposition: Home or Self [...] AM EST Office Visit [facility] [address] [place] [phone] Nikolas Jha DPM [address] [place] [address] [address] [place] [phone] documented as of this encounter Procedures Procedure Name Priority Date/Time Associated Diagnosis Comments MM MAMMO DIGITAL DIAGNOSTIC W CAD LEFT Routine 01/23/2015 11:22 AM EDT Inversion, nipple documented in this encounter Results * MM MAMMO DIGITAL DIAGNOSTIC W CAD LEFT (01/23/2015 11:22 AM EDT) Anatomical Region Laterality Modality Breast Left Mammography 01/24/2015 9:44 AM EDT Impressions 01/26/2015 7:40 AM EDT : Incomplete-need additional imaging evaluation ([id number]) ~ RECOMMENDATION: Ultrasound of the left breast. [...] breast documented in this encounter Care Teams Mask Former Relationship Specialty Start Date End Date Carlos Manuel Barragan [address] [place] [address] [address] [facility] [address] PCP - General 07/03/10 documented as of this encounter
--- OUTSIDE RECORDS SUMMARY | 2024-05-04 22:56 | XMS_ITS | Encounter Summary ---
Author Organization [place] [address] Care Team Providers Care Director [employer] Name Role Phone Carlos Manuel Barragan Primary Care Provider [phone] Reason for Visit * Auth/Cert/Inpt - Closed [...] Expiration Date Visits Re quested Visits Authorized [id number] Closed 1 1 Encounter Details Date Type Department Care Team (Late st Contact Info) Description 03/03/2015 2:10 PM EDT Anesthesia Event EDG PERIOP [facility] [place] [address] Caryn Moore MD [address] [facility] [place] [address] Brianna Camilo APRN [address] [facility] [place] [address] Anesthesia Record Procedure Summary Procedure Name Responsible Anesthesiologist Anesthesia Start Time Anesthesia Stop Time BREAST/AXILLARY SENTINEL LYMPH NODE BIOPSY/DISSECTION (Left: Breast) Caryn Moore MD 03/03/15 1410 03/03/15 1526 Events Date Time Event Comment 03/03/2015 1217 1410 An Start 1418 AN Equip Check 1418 An Start Data 1418 Immediate Pre Anesthetic Ass es 1419 An Induction 1423 An LMA 1425 Anesthesia Ready 1431 Incision 1506 Airway Removed 1506 Quick Note Secretions note d with LMA removal, pt suctioned. Remained in OR until patient awake. Transport to PACU on 4L NC. Pt awake in PACU. 1520 an stop data 1526 Handoff I completed my SBAR handoff to the receiving nurse which have included the followin. Identification of the patient, family, or patient surrogate 2. Identification of the responsible practitioner 3. Pertinent medical history 4. Surgical procedure and reason for procedure 5. Intraoperative anesthetic management 6. Expectations/Plans for the early post-procedure period 7. Opportunity for questions and acknowledgement of understanding from the receiving PACU/ICU environmental field team member 1526 An Stop Meds Name Total midazolam (VERSED) injection 1 mg/mL 2 m g propofol (DIPRIVAN) injection 240 mg fentaNYL 50 MCG/ML INJ 100 mcg HYDROmorphone (DILAUDID) injection 1 mg/ ml 1 mg ondansetron (ZOFRAN) injection 4 mg /2 m L 8 mg dexamethasone (DECADRON) injection 4 mg/ mL 4 mg acetaminophen (OFIRMEV)1000 mg/100 mL in fusion 1,000 mg propofol (DIPRIVAN) infusion 10 mg/mL 36 2,000 mcg diphenhydrAMINE (BENADRYL) injection 12. 5 mg promethazine (PHENERGAN) 25 mg/mL inject ion 5 mg ceFAZolin (ANCEF) 2 g in dextrose 5% 50 mL IVPB 2 g lactated ringers infusion 1,200 mL * Agents Name O2 Et Sevoflurane * Blood No blood administrations on file. Lines, Drains, and Airways Type Details Placement Removal Peripheral IV 03/03/15; 1142; 20; Right; Hand; Naida yung RN; 1; None; 03/03/15; 172; Therapy completed, No complications; Catheter intact, Dressing applied; No 03/03/15 1142 by Naida Yung RN 03/03/15 172 by Alexia Kim RN Airway Placement Date: 03/03/15; Placement Time: 1418; Removal Date: 03/03/15; Removal Time: 1506 03/03/15 1418 by Ginger Smith CRNA 03/03/15 1506 by Ginger Smith CRNA Airway Device: LMA; Size: 4 ; Placement Date: 03/03/15; Placement Time: 1423; Removal Date: 03/03/15; Removal Time: 1506 03/03/15 1423 by Ginger Smith CRNA 03/03/15 1506 by Ginger Smith CRNA Incision/Procedural Site 03/03/15; 1431; Breast; Left; 03/03/15; 2155 03/03/15 1431 by Bakari Gomez RN 03/03/15 2155 by Discharge Provider, Automatic documented in this [...] OR Notes * Anesthesia Postprocedure Evaluation - Dany Almaguer MD - 03/03/2015 5:39 PM EDT Post-Anesthesia Evaluation Note Patient Name: Juany Alarcon Patient Date: March 03, 2015 Patient Location: PACU Post OP Vitals: stable Level of Consciousness: awake, alert and oriented Post Anesthesia Pain: adequate analgesia Long Acting Local Anesthetic: n/a Airway Patency: patent Difficult Airway: no Respiratory: room air and spontaneous ventilation Cardiovascular: stable Hydration: euvolemic Nausea Controlled: yes Comments: No apparent anesthesia complications * Anesthesia Preprocedure Evaluation - Corby Toussaint MD - 02/24/2015 10:22 AM EDT Pre-Anesthesia Evaluation Note Patient Name: Juany Alarcon Sex: female Patient : 1950 Age: 64 y.o. Patient Date: February 24, 2015 Procedure: BREAST/AXILLARY SENTINEL NODE BIOPSY/DISSECTION (Left ) Anesthesia Evaluation Patient summary reviewed, Nursing notes reviewed and Previous anesthesia History of anesthetic complications: PONV Airway Mallampati: III TM distance: >3 FB Neck ROM: fullPossible difficult airway Dental - normal exam Pulmonary breath sounds clear to auscultation (+)sleep apnea on CPAP, (-) smoker Cardiovascular (+) hypertension, , ECG reviewed Rhythm: regular Rate: normal Neuro/Psych - negative ROS GI/Hepatic/Renal - negative ROS Endo/Other (+) arthritis, anemia, Comments: Breast cancer Current Other findings: Ordered EKG and BMP DOS Anesthesia Plan ASA 2 Anesthesia Plan: general Intravenous induction Monitors: STD Anesthetic plan and risks discussed with patient and family. Chart review documented in this encounter Plan of Treatment Upcoming Encounters Date Type Department Care Team (Late st Contact Info) Description 05/24/2024 10:30 AM EST Office Visit [facility] [address] [place] [phone] Nikolas Jha Mitzi [address] [place] [address] RD LORENA [address] [place] [phone] documented as of this encounter Visit Diagnoses Not on filedocumented in this encounter Administered Medications Inactive Administered Medications - up to 1 most recent administrations Medication Order MAR Action Action Date Dose Rate Site acetaminophen (OFIRMEV) infusion Intravenous, PRN, Starting on Fri03/03/15 at 1428, Until Fri03/03/15 at 1526, Administer over 15 Minutes, Anesthesia Intra-op Given 03/03/2015 2:28 PM EDT 1,000 mg ceFAZolin (ANCEF) 2 g in dextrose 5% 50 mL IVPB 2 g, Intravenous, ONCE PREPROCEDURE, 1 dose, On Fri03/03/15 at 0645, Administer over 30 Minutes, Pre-op (Antibiotic), Dx: 1. Malignant neoplasm of left female breast, unspecified site of breastIndications:Maligna nt neoplasm of left female breast, unspecified site of breast Given 03/03/2015 2:18 PM EDT 2 g dexamethasone (DECADRON) injection Intravenous, PRN, Starting on Fri03/03/15 at 1428, Until Fri03/03/15 at 1526, Anesthesia Intra-op Given 03/03/2015 2:28 PM EDT 4 mg diphenhydrAMINE (BENADRYL) injection PRN, Starting on Fri03/03/15 at 1431, Until Fri03/03/15 at 1526, Anesthesia Intra-op Given 03/03/2015 2:31 PM EDT 12.5 mg fentaNYL (SUBLIMAZE) 50 mcg/mL injection Intravenous, PRN, Starting on Fri03/03/15 at 1423, Until Fri03/03/15 at 1526, Anesthesia Intra-op Given 03/03/2015 2:28 PM EDT 25 mcg Hydromorphone (DILAUDID) injection Intravenous, PRN, Starting on Fri03/03/15 at 1436, Until Fri03/03/15 at 1526, Anesthesia Intra-op Given 03/03/2015 2:36 PM EDT 1 mg lactated ringers infusion Intravenous, at 100 mL/hr, PREPROCEDURE CONTINUOUS, Starting on Dagmar 03/02/15 at 0941, Until Fri03/03/15 at 2156, To be given in SDS/Pre-op Hold, Pre-op (Holding/SDS Meds) New Bag 03/03/2015 3:04 PM EDT midazolam (VERSED) injection Intravenous, PRN, Starting on Fri03/03/15 at 1418, Until Fri03/03/15 at 1526, Anesthesia Intra-op Given 03/03/2015 2:18 PM EDT 2 mg ondansetron (ZOFRAN) 4 mg/2 mL injection Intravenous, PRN, Starting on Fri03/03/15 at 1428, Until Fri03/03/15 at 1526, Nausea, Anesthesia Intra-op Given 03/03/2015 2:28 PM EDT 8 mg promethazine (PHENERGAN) injection PRN, Starting on Fri03/03/15 at 1431, Until Fri03/03/15 at 1526, Nausea, Anesthesia Intra-op Given 03/03/2015 2:31 PM EDT 5 mg propofol (DIPRIVAN) infusion 10 mg/mL CONTINUOUS PRN, Starting on Fri03/03/15 at 1428, Until Fri03/03/15 at 1526, Anesthesia Intra-op New Bag 03/03/2015 2:28 PM EDT 125 mcg/kg/min 67.9 mL/hr propofol (DIPRIVAN) injection Intravenous, PRN, Starting on Fri03/03/15 at 1418, Until Fri03/03/15 at 1526, Anesthesia Intra-op Given 03/03/2015 2:37 PM EDT 20 mg documented in this encounter Care Teams Director [employer] Relationship Specialty Start Date End Date Carlos Manuel Barragan [address] [place] [address] [address] [place] [address] PCP - General 07/03/10 documented as of this encounter
--- OUTSIDE RECORDS SUMMARY | 2024-05-04 22:56 | XMS_ITS | Encounter Summary ---
Author Organization [place] [address] Care Team Providers Care Apprentice Jockey Name Role Phone Carlos Manuel Barragan Primary Care Provider [phone] Reason for Visit * Reason Onset Date Comments Results 03/09/2015 Encounter Details Date Type Department Care Team (Late st Contact Info) Description 03/09/2015 Telephone [facility] [place] [place] [address] Corry Frazier, RN Results Social History Tobacco Use Types [...] Telephone Encounter - Corry Frazier RN - 03/09/2015 2:33 PM EDT Juany called [facility] line requesting pathology report from [facility] on 03/03 w/Dr Crouch. Her results were reviewed, 4 negative lymph nodes and left ILC grade 1. She is scheduled on Tuesday 03/13 for a f/u w/Dr Crocuh at 10am. documented in this encounter Plan of Treatment Upcoming Encounters Date Type Department Care Team (Late st Contact Info) Description 05/24/2024 10:30 AM EST Office Visit [facility] [address] [place] [phone] Nikolas Jha DPM [address] [place] [address] [address] L[address] [place] [phone] documented as of this encounter Visit Diagnoses Not on filedocumented in this encounter Care Teams Apprentice Jockey Relationship Specialty Start Date End Date Carlos Manuel Barragan [address] [facility] [address] [place] [address] PCP - General 07/03/10 documented as of this encounter
--- OUTSIDE RECORDS SUMMARY | 2024-05-04 22:56 | XMS_ITS | Encounter Summary ---
Author Organization [place] [address] Care Team Providers Care Digital Marketing Specialist Name Role Phone Carlos Manuel Barragan Primary Care Provider [phone] Reason for Visit * Auth/Cert/Inpt - Closed [...] Expiration Date Visits Re quested Visits Authorized [id number] Closed 1 1 Encounter Details Date Type Department Care Team (Latest Contact Info) Description 03/03/2015 11:17 AM EDT - 03/03/2015 5:55 PM EDT Hospital Encounter [facility] SAME DAY SURGERY [facility] [place] [address] Dany Crouch MD [address] [place] [address] [address] SIL[address] [place] [phone] Preop testing (Primary Dx); Essential hypertension; Malignant neoplasm of left female breast, unspecified site of breast (HCC) Discharge Disposition: Home or Self Care [...] Kim RN - 03/03/2015 5:07 PM EDT [facility] Discharge Instructions - Following Anesthesia We [...] your results call [facility] at [phone], 72 hours post procedure. . Notify Dr. Crouch at [phone] for problems such as : * Check [...] Document Released: 10/28/2008 ExitCare?? Patient Information ??[address] [place]. No more than 4000 mg of Tylenol [...] Code Departure Means Destination Home or Self Assisted documented in this encounter H&P Notes * [...] 09-06-14. ~ IMPRESSION: Incomplete-need additional imaging evaluation ([id number]-6) ~ RECOMMENDATION: Ultrasound of the left breast. [...] findings. ~ IMPRESSION: Incomplete-need additional imaging evaluation ([id number]-1) ~ Non-contributory imaging in a patient with [...] are submitted. Imaging interpretation is aided with [employer]. There are no prior studies available for [...] identified. ~ IMPRESSION: Incomplete-need additional imaging evaluation ([id number]-9) MRI findings are worrisome for a multicentric [...] Report Accession Number Collected Date/Time Received Date/Time [id number] 02/07/15 14:11 EDT 02/07/15 14:34 EDT Diagnosis [...] as age, tumor size and lymph nodes. ER/NH/HER 2 pending. If there is a role [...] Crouch MD - 03/05/2015 7:40 PM EDT [facility]/[place]/[facility]/[place], [place] NAME: DIAMANTE EDOUARD [facility]#: [id number] LOCATION/ROOM: [facility] FACILITY: [facility] DICTATOR: Steven Crouch OPERATIVE [...] Steven Crouch MD By: jay Job ID: [id number] Doc ID: [id number] CC: * Dany Crouch MD - 03/03/2015 2:51 PM EDT [facility] OPERATIVE/PROCEDURE NOTE Diamante Edouard Lionel March 03, 2015 PRE-OP DIAGNOSIS: Malignant neoplasm of left female breast, unspecified site of breast (HCC) [C50.912 (ICD-10-CM)] POST-OP DIAGNOSIS: Carcinoma in situ of breast, left [D05.92 (ICD-10-CM)] PROCEDURE(S): Procedure(s): LEFT BREAST CORE BIOPSY & SENTINEL LYMPH NODE DISSECTION. SURGEON(S): Surgeon(s) and Role: * Dany Crouch MD - Primary ORTHOPEDIC SHOE MAKER(S): ANESTHESIA: General SPECIMENS: ID Type Source Tests [...] 03/02/2015 7:50 AM EDT 02/14/15 h&p in [facility] * Louisa Rosario RN - 02/24/2015 9:12 [...] eye makeup) lotion, powder, or deodorant. Nail uzbek must be removed if uzbek is on operative extremity. Please do not shave operative extremity or near the operative extremity. 13. If you have a Living Will and Durable Power of Eap Consultant for Healthcare, please bring a copy. 14. [...] payment with you. We accept Visa, MasterCard, Savorfull and Amitive credit cards. Our Customer Service Representatives will be available by telephone for any questions regarding financial issues at [phone]. 17. Other none. 18. If you wear [...] Same Day Surgery Unit - [facility] at [phone]; [facility] SDS: Patient Entrance 3A, take Mad[place] elevator to 2nd floor documented in this encounter Plan of Treatment Upcoming Encounters Date Type Department Care Team (Late st Contact Info) Description 05/24/2024 10:30 AM EST Office Visit [facility] [place] [address] [place] [address] Abhijeet Nikolas Trejo, DPM [address] [address] [place] [address] documented as of this encounter Procedures Procedure Name Priority Date/Time Associated Diagnosis Comments PATHOLOGY TISSUE REPORT Routine 03/03/2015 2:57 PM EDT BREAST/AXILLARY SENTINEL LYMPH NODE BIOPSY/DISSECTION 03/03/2015 2:15 PM EDT Malignant neoplasm of left female breast, unspecified site of breast (HCC) Special Needs ANN CPT;[id number] EK EKG 12 LEAD STAT 03/03/2015 11:47 AM EDT Preop testing Essential hypertension BASIC METABOLIC PANEL Routine 03/03/2015 11:43 AM EDT Preop testing Essential hypertension documented in this encounter Results * PATHOLOGY TISSUE REPORT (03/03/2015 2:57 PM EDT) Surgical Pathology Report ? PATIENT NAME:DIAMANTE EDOUARD ?Surgical Pathology Report ? Accession Number ?Collected Date/Time ? Received Date/Time ? 03/03/15 14:57 EDT ?03/03/15 15:40 EDT ? Diagnosis ? 1) Left axillary sentinal lymph nodes, dissection: ? - No metastatic carcinoma in 4 lymph nodes (multiple H ? pancytokeratin immunostains examined). ? 2) Left breast, core biopsy: ? - Invasive grade 1 lobular carcinoma, Roachdale score 5 (3+1+1), small ? scattered foci. [...] (one inked black for identification). /BC ? Gurley node removal time: 1437 ? Formalin time: [...] and the findings corroborate the ? diagnosis. [facility] 03/03/2015 2:57 PM EDT us Dany Crouch MD PATHOLOGY ORDERABLES Final Result [facility] [address] [place] [address] * EK EKG 12 LEAD (03/03/2015 11:47 AM EDT) Anatomical Region Laterality Modality Other 03/03/2015 11:4 7 AM EDT Impressions 03/03/2015 11:09 PM EDT ? Stationary ECG Study ?[facility] [place] ? Interpretive Statements ? SINUS BRADYCARDIA LOW QRS VOLTAGE IN PRECORDIAL LEADS Electronically Signed On 03-03-2015 23:09:00 EDT by Kai Bennett MD Narrative Procedure Note Kai Bennett MD - 03/03/2015 IMPRESSION Stationary ECG Study [facility] [place] Interpretive Statements SINUS BRADYCARDIA LOW QRS VOLTAGE IN PRECORDIAL LEADS Electronically Signed On 03-03-2015 23:09:00 EDT by Kai Bennett MD us Mike Redmond MD IMG ECG ORDERABLES Final R esult * (ABNORMAL) BASIC METABOLIC PANEL (03/03/2015 11:43 AM EDT) Sodium 141 136 - 145 mmol/L [facility] Potassium 4.6 3.5 - 5.0 mmol/L [facility] Chloride 101 98 - 107 mmol/L [facility] Total CO2 22 22 - 29 mmol/L [facility] Anion Gap 18(H) 7 - 16 mmol/L [facility] Calcium 10.0 8.8 - 10.2 mg/dL [facility] Glucose Lvl 98 82 - 100 mg/dL [facility] BUN 12 8 - 23 mg/dL [facility] Creatinine 0.93 0.51 - 1.30 mg/dL [facility] GFR Afr Am >60 [facility] GFR Non Afr Am >60 [facility] Blood specimen (specimen) UPPER LIMB STRUCTURE / Unknown 03/03/2015 11:43 AM EDT 03/03/2015 11:46 AM EDT us Brianna Camilo BLADDER TIER CHEMISTRY ORDERABLES Edited R esult - Final [facility] [address] [place] [address] documented in this encounter Visit Diagnoses Diagnosis [...] Given 03/03/2015 12:16 PM EDT 20 mg lactated ringers infusion Intravenous, at 100 [...] Hydromorphone (DILAUDID) injection 0.25 mg 1 03/03/2015 isosulfan blue (LYMPHAZURIN) 1 % injection 1 03/03/2015 ondansetron (ZOFRAN) 4 mg/2 mL [...] 03/03/2015 documented in this encounter Care Teams Digital Marketing Specialist Relationship Specialty Start Date End Date Carlo sManuel Barragan [facility] [address] [place] [address] PCP - General 07/03/10 documented as of this encounter
--- OUTSIDE RECORDS SUMMARY | 2024-05-04 22:57 | XMS_ITS | Encounter Summary ---
Author Organization [place] [address] Care Team Providers Care Engraving Press Operator Name Role Phone Unavailable Primary Care Provider Unavailabl e Encounter Details Date Type Department Care Team (Late st Contact Info) Description 11/30/1999 2:48 AM EDT - 11/30/1999 11:59 PM EDT Hospital Encounter [facility] Jeffery Mars MD Social History Tobacco Use Types Packs/Day [...] 10:30 AM EST Office Visit [facility] [place] [address] [facility] [address] [place] [phone] Nikolas Jha, [facility] [address] [facility] [address] [place] [phone] documented as of this encounter Visit Diagnoses Not on filedocumented in this encounter
--- OUTSIDE RECORDS SUMMARY | 2024-05-04 22:57 | XMS_ITS | Encounter Summary ---
Author Organization [place] [address] Care Team Providers Care Infant Childcare Provider Name Role Phone Carlos Manuel Barragan Primary Care Provider [phone] Reason for Visit * Auth/Cert/Inpt - Closed Specialty Diagnoses / Procedures Referred By Heather t Referred To Contact Radiology [facility] [address] [place] [address] Phone: tel: Referral ID Status Reason Start Date Expiration Date Visits Re quested Visits Authorized Closed 07/09/2010 01/05/2011 Encounter Details Date Type Department Care Team (Late st Contact Info) Description 07/06/2010 9:38 AM EST - 07/06/2010 11:59 PM EST Hospital Encounter [facility] [address] [place] [address] Brian Newman MD [address] [place] [address] Stenosis Discharge Disposition: Home or Self Care Social History Tobacco Use Types Packs/Day Years Used Date Smoking Tobacco: Never Assessed Comments Unknown Sex and Gender Information Value Date Recorded Sex Assigned at Not on file Legal Sex Female 10:36 AM EDT Gender Identity Not on file Sexual Orientation Not on file documented as of this encounter Discharge Disposition Disposition Code Departure Means Destination Home or Self Care documented in this encounter Progress Notes * Unknown, Unknown - 07/06/2010 12:28 PM EST * Unknown, Unknown - 07/06/2010 12:28 PM EST * Unknown, Unknown - 07/06/2010 12:28 PM EST documented in this encounter Procedure Notes * Unknown, Unknown - 07/06/2010 12:28 PM EST documented in this encounter Plan of Treatment Upcoming Encounters Date Type Department Care Team (Late st Contact Info) Description 05/24/2024 10:30 AM EST Office Visit [facility] [address] [place] [phone] [address] Jha [address] [place] [phone] documented as of this encounter Procedures Procedure Name Priority Date/Time Associated Diagnosis Comments MRI LUMBAR SPINE WO CONTRAST Routine 07/06/2010 10:54 AM EST Stenosis documented in this encounter Results * MRI LUMBAR SPINE WO CONTRAST (07/06/2010 10:54 AM EST) Anatomical Region Laterality Modality L-spine Magnetic Resonan ce 07/06/2010 Impressions 07/06/2010 4:35 PM EST IMPRESSION: Multilevel degenerative changes with bilateral foraminal narrowing. Radiographically, the most prominent disease is at L5-S1 on the left and L2-L3 on the right. Narrative 07/06/2010 4:35 PM EST MRI OF THE LUMBAR SPINE: DATE: 07/06/2010 INDICATIONS: Pain with radicular symptoms, right greater than left. History: Same. TECHNIQUE: Long and short imaging parameters were obtained in the sagittal and axial orientation. The examination demonstrates no acute fractures. There is discogenic disease at the L2-L3 level. Significant degenerative subluxation is seen at this level as well on the order of 6 mm. Radiographically significant but less prominent degenerative subluxation is also seen at L4-L5. Coronal hvac controls technician images demonstrate a levoscoliosis. This has a mild rotary component. The T10-T11 level is intact. The T11-T12 level is intact. The T12-L1 level is intact. At L1-L2, there is spondylosis, disc bulging and facet disease. The gross capacity however of the central canal and foramina is maintained. More prominent disease is seen at L2-L3. Here, in addition to the degenerative subluxation the disc protrusion, spondylosis and facet disease cause radiographically significant foraminal narrowing on the right with borderline disease seen on the left. At the L3-L4 level, there is slightly less prominent disease of questionable architectural significance. At L4-L5, the disease has leftward preference and here there is borderline foraminal narrowing on the left. At the L5-S1 level, there is severe foraminal narrowing on the left. Procedure Note Delano Fortune MD - 07/06/2010 MRI OF THE LUMBAR SPINE: DATE: 07/06/2010 INDICATIONS: Pain with radicular symptoms, right greater than left.History: Same. TECHNIQUE: Long and short imaging parameters were obtained in the sagittaland axial orientation. The examination demonstrates no acute fractures. There is discogenicdisease at the L2-L3 level. Significant degenerative subluxation is seen at this level as wellon the order of 6 mm. Radiographically significant but less prominent degenerative subluxationis also seen at L4-L5. Coronal hvac controls technician images demonstrate a levoscoliosis. This has a mildrotary component. The T10-T11 level is intact. The T11-T12 level is intact. The T12-L1 level isintact. At L1-L2, there is spondylosis, disc bulging and facet disease. The gross capacityhowever of the central canal and foramina is maintained. More prominent disease is seen atL2-L3. Here, in addition to the degenerative subluxation the disc protrusion, spondylosis and facetdisease cause radiographically significant foraminal narrowing on the right withborderline disease seen on the left. At the L3-L4 level, there is slightly less prominent disease ofquestionable architectural significance. At L4-L5, the disease has leftward preferenceand here there is borderline foraminal narrowing on the left. At the L5-S1 level, there issevere foraminal narrowing on the left. IMPRESSION: Multilevel degenerative changes with bilateral foraminalnarrowing. Radiographically, the most prominent disease is at L5-S1 on the left andL2-L3 on the right. Brian Newman MD IMG MRI ORDERABLES Final Result documented in this encounter Visit Diagnoses Diagnosis Stenosis Other ill-defined conditions documented in this encounter Care Teams Infant Childcare Provider Relationship Specialty Start Date End Date Carlos Manuel Barragan [address] [place] [address] PCP - General 07/03/10 documented as of this encounter
--- OUTSIDE RECORDS SUMMARY | 2024-05-04 22:57 | XMS_ITS | Encounter Summary ---
Author Organization [place] [address] Care Team Providers Care It Support Analyst Name Role Phone Carlos Manuel Barragan Primary Care Provider [phone] Encounter Details Date Type Department Care Team (Latest Contact Info) Description 07/27/2010 9:15 AM EST - 07/27/2010 11:59 PM EST Hospital Encounter [facility] [place] [address] Raymond Noble MD Other screening mammogram Discharge Disposition: Home [...] encounter Progress Notes * Unknown, Unknown - 07/27/2010 9:18 AM EST * Unknown, Unknown - 07/27/2010 9:18 AM EST documented in this encounter Plan of Treatment Upcoming Encounters Date Type Department Care Team (Late st Contact Info) Description 05/24/2024 10:30 AM EST Office Visit [facility] [address] [place] [address] Nikolas Jha, DPM [address] [facility] [address] [place] [address] documented as of this encounter Procedures Procedure Name Priority Date/Time Associated Diagnosis Comments MM MAMMO DIGITAL SCREENING W CAD BILAT Routine 07/27/2010 9:40 AM EST Other screening mammogram documented in this encounter Results * MM MAMMO DIGITAL SCREENING W CAD BILAT (07/27/2010 9:40 AM EST) Anatomical Region Laterality Modality Breast Bilateral Mammography 07/27/2010 10:3 6 AM EST Impressions 07/27/2010 11:58 AM EST : No radiographic evidence of malignancy ([id number]) RECOMMENDATION: Routine screening mammogram in 1 year. Narrative 07/27/2010 11:58 AM EST Procedure:MM MAMMO DIGITAL SCREENING W CAD BILAT ~ MM MAMMO DIG SCREEN CAD BILAT Bilateral CC and MLO view(s) were taken. Prior study comparison: July 25, 2009, bilateral MM DIGITAL SCR BILAT PANEL. There are scattered fibroglandular densities. ??No suspicious calcifications. ??Compared to prior studies the most recent being 07/25/09. No significant changes when compared with prior studies. ~ ~ * The patient with a palpable abnormality, unexplained by breast imaging, should be managed on clinical basis by the attending physician. * Breast imaging has a false negative rate of 15%. * The patient was notified by mail of the results of this examination. ~ The mammogram was reviewed by a Radiologist and CAD. Procedure Note Olya Osborn MD - 07/27/2010 Procedure:MM MAMMO DIGITAL SCREENING W CAD BILAT ~ MM MAMMO DIG SCREEN CAD BILAT Bilateral CC and MLO view(s) were taken. Prior study comparison: July 25, 2009, bilateral MM DIGITAL SCR BILAT PANEL. There are scattered fibroglandular densities. No suspicious calcifications. Compared to prior studies the most recent being07/25/09. No significant changes when compared with prior studies. ~ ~ * The patient with a palpable abnormality, unexplained by breast imaging, should be managed on clinical basis by the attending physician. * Breast imaging has a false negative rate of 15%. * The patient was notified by mail of the results of this examination. ~ The mammogram was reviewed by a Radiologist and CAD. IMPRESSION: No radiographic evidence of malignancy ([id number]) RECOMMENDATION: Routine screening mammogram in 1 year. Raymond Noble MD IMG MAMMOGRAPHY ORDERABLES Final Result documented in this encounter Visit Diagnoses Diagnosis Other screening mammogram documented in this encounter Care Teams It Support Analyst Relationship Specialty Start Date End Date Carlos Manuel Barragan [address] [facility] [place] [address] PCP - General 07/03/10 documented as of this encounter
--- OUTSIDE RECORDS SUMMARY | 2024-05-04 22:57 | XMS_ITS | Encounter Summary ---
Author Organization [place] [address] Care Team Providers Care Book Packer Name Role Phone Unavailable Primary Care Provider Unavailabl e Encounter Details Date Type Department Care Team (Late st Contact Info) Description 10/05/1997 4:37 AM EDT - 10/05/1997 11:59 PM EDT Hospital Encounter [facility] Rodolfo Santamaria Social History Tobacco Use Types Packs/Day Years [...] AM EST Office Visit [facility] [address] [place] [phone] Nikolas Jha, [facility] [address] [facility] [address] [place] [address] documented as of this encounter Visit Diagnoses Not on filedocumented in this encounter
--- OUTSIDE RECORDS SUMMARY | 2024-05-04 22:57 | XMS_ITS | Encounter Summary ---
Author Organization [place] [address] Care Team Providers Care Zigzag Stitcher Name Role Phone Carlos Manuel Barragan Primary Care Provider [phone] Reason for Visit * Mammography (Routine) - Closed Specialty Diagnoses / Procedures Referred By Heather santos Referred To Contact Radiology Diagnoses Other screening mammogram Procedures MM MOBILE MAMMO DIGITAL SCREEN W CAD ZEN Raymond Noble MD Referral ID Status Reason Start Date Expiration Date Visits Re quested Visits Authorized [id number] Closed 08/17/2013 02/13/2014 1 1 Encounter Details Date Type Department Care Team (Latest Contact Info) Description 09/03/2013 5:31 AM EDT - 09/03/2013 11:59 PM EDT Hospital Encounter [facility] Other Location View online schedule for mobile van location [phone] Raymond Noble MD Other screening mammogram Discharge [...] AM EST Office Visit [facility] [place] [address] [place] [address] Road [address] [place] [phone] Nikolas Jha, DPMitzi [address] [facility] [address] [place] [address] [place] [phone] documented as of this encounter Procedures Procedure Name Priority Date/Time Associated Diagnosis Comments MM MOBILE MAMMO DIGITAL SCREEN W CAD ZEN Routine 09/03/2013 11:15 AM EDT Other screening mammogram documented in this encounter Results * MM MOBILE MAMMO DIGITAL SCREEN W CAD ZEN (09/03/2013 11:15 AM EDT) Anatomical Region Laterality Modality Breast Mammography 09/07/2013 8:26 AM EDT Impressions 09/07/2013 4:29 PM EDT : Negative ??([id number]) ~ RECOMMENDATION: Routine screening mammogram in 1 [...] reviewed by a Radiologist and CAD. Narrative 09/07/2013 4:29 PM EDT Procedure:MM MOBILE MAMMO DIGITAL SCREEN W CAD ZEN ~ Reason for exam: screening ??(asymptomatic). ~ MM MOBILE MAMMO DIGITAL SCREEN W CAD ZEN Bilateral CC and MLO view(s) were taken. The breast tissue is heterogeneously dense. ??This may lower the sensitivity of mammography. ??Compared to prior studies the most recent being ??09-04-12. ~ Procedure Note Radha Salmeron MD - 09/07/2013 Procedure:MM MOBILE MAMMO DIGITAL SCREEN W CAD ZEN ~ Reason for exam: screening (asymptomatic). ~ MM MOBILE MAMMO DIGITAL SCREEN W CAD ZEN Bilateral CC and MLO view(s) were taken. The breast tissue is heterogeneously dense. This may lower thesensitivity of mammography. Compared to prior studies the most recent [id number]. ~ IMPRESSION: Negative ([id number]) ~ RECOMMENDATION: Routine screening mammogram in 1 [...] atarget due date for the next mammogram. The mammogram was reviewed by a Radiologist and CAD. Raymond Noble MD IMG MAMMOGRAPHY ORDERABLES Final Result documented in this encounter Visit Diagnoses Diagnosis Other screening mammogram documented in this encounter Care Teams Zigzag Stitcher Relationship Specialty Start Date End Date Carlos Manuel Barragan [address] [place] [address] [address] [place] [address] PCP - General 07/03/10 documented as of this encounter
--- OUTSIDE RECORDS SUMMARY | 2024-05-04 22:57 | XMS_ITS | Encounter Summary ---
Author Organization [place] [address] Care Team Providers Care Reimbursement Liaison Name Role Phone Unavailable Primary Care Provider Unavailabl e Encounter Details Date Type Department Care Team (Late st Contact Info) Description 09/28/2008 1:16 AM EDT - 10/01/2008 10:40 PM EDT Hospital Encounter [facility] Nile Tena MD [address] [place] [address] Social History Tobacco Use Types Packs/Day Years Used Date Smoking Tobacco: Never Assessed Comments Unknown Sex and Gender Information Value Date Recorded Sex Assigned at Not on file Legal Sex Female 10:36 AM EDT Gender Identity Not on file Sexual Orientation Not on file documented as of this encounter Discharge Summaries * Unknown, 12/15/2009 11:11 AM EDT documented in this encounter H&P Notes * Unknown, - 12/15/2009 12:16 PM EDT documented in this encounter Procedure Notes * Unknown, 12/15/2009 11:37 AM EDTAssociated Order(s): SCANNED OR REPORT documented in this encounter Consult Notes * Unknown, 12/15/2009 12:20 PM EDT documented in this encounter Plan of Treatment Upcoming Encounters Date Type Department Care Team (Late st Contact Info) Description 05/24/2024 10:30 AM EST Office Visit [facility] [place] [address] [facility] [address] [place] [address] Abhijeet Nikolas Neil, DPMitzi [address] [facility] [address] [place] [address] Scheduled Orders Name Type Priority Associated Diagnoses Orde r Schedule EK EKG REG Imaging Cardiology Routine Once f or 1 Occurrences starting 08/03/2009 until 08/03/2009, 1 completed FL FLUORO 1 HOUR Imaging Routine Once for 1 Occurrences starting 08/03/2009 until 08/03/2009, 1 completed XR HIP PORTABLE Imaging Routine Once for 1 Occurrences starting 08/03/2009 until 08/03/2009, 1 completed XR PELVIS Imaging Routine Once for 1 Occurrences starting 08/03/2009 until 08/03/2009, 1 completed documented as of this encounter Procedures Procedure Name Priority Date/Time Associated Diagnosis Comments SCANNED OR REPORT 12/15/2009 12: 00 AM EDT XX PELVIS Routine 09/28/2008 10:50 AM EDT XX HIP PORTABLE Routine 09/28/2008 9:45 AM EDT FL FLUORO 1 HOUR Routine 09/28/2008 8:22 AM EDT EK EKG REG Routine 09/21/2008 7:41 PM EDT documented in this encounter Results * SCANNED OR REPORT (12/15/2009 12:00 AM EDT) Narrative 12/15/2009 1:56 PM EDT Ordered by an unspecified provider. Transcriptions Unknown, U - 12/15/2009 11:37 AM EDT us U Unknown PROCEDURE/MINOR SURGICAL ORDERAB LES Final Result * XR PELVIS (09/28/2008 10:50 AM EDT) Anatomical Region Laterality Modality Other 09/28/2008 10:5 0 AM EDT Narrative 09/28/2008 2:16 PM EDT PACU 21 AP/PELVIS Examination of the right hip. Indications- Postop. History is the same. ?? 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 There is anatomic alignment. Impression- ??Status post right THR with anatomic alignment. ? Blender Operator- GARETT MORA ? Reading Physician- DELANO GRAHAM ??M.DGene ? Released Date Time- 09/28/08 1500 Procedure Note Delano Graham - 08/03/2009 PACU 21 AP/PELVIS Examination of the right hip. Indications- Postop. History is the same. 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 There is anatomic alignment. Impression- Status post right THR with anatomic alignment. Blender Operator- GARETT MORA Reading Physician- DELANO GRAHAM M.D. Released Date Time- 09/28/08 1500 Nile Tena MD [facility] HISTORICAL Final Result * XR HIP PORTABLE (09/28/2008 9:45 AM EDT) Anatomical Region Laterality Modality Other 09/28/2008 9:45 AM EDT Narrative 09/28/2008 12:34 PM EDT [facility] 11 Examination of the right hip. Indications- Intraoperative film. History is the same. Two views from the operating room demonstrate the patient to be status post total hip replacement on the right. There is anatomic alignment. Impression- Status post THR on the right with anatomic alignment. ? Blender Operator- GARETT MORA ? Reading Physician- DELANO GRAHAM ??MJuanjo ? Released Date Time- 09/28/08 130 Procedure Note Delano Graham - 08/03/2009 [facility] 11 Examination of the right hip. Indications- Intraoperative film. History is the same. Two views from the operating room demonstrate the patient to be status post total hip replacement on the right. There is anatomic alignment. Impression- Status post THR on the right with anatomic alignment. Blender Operator- GARETT MORA Reading Physician- DELANO GRAHAM M.D. Released Date Time- 09/28/08 1309 Nile Tena MD [facility] HISTOR[facility] Final Result * FL FLUORO 1 HOUR (09/28/2008 8:22 AM EDT) Anatomical Region Laterality Modality Other 09/28/2008 8:22 AM EDT Narrative 09/28/2008 10:10 AM EDT [facility] 11 FLUOROSCOPY- 1. ??Fluoroscopy was performed. The radiologist was not in attendance. No permanent images were obtained. This dictation is being made for record keeping purposes. ? Blender Operator- TRANSCRIBED BY [employer] ? Reading Physician- NEVIN TRAN ??MD ? Released Date Time- 09/28/08 1010 Procedure Note Nevin Tran - 08/03/2009 [facility] 11 FLUOROSCOPY- 1. Fluoroscopy was performed. The radiologist was not in attendance. No permanent images were obtained. This dictation is being made for record keeping purposes. Blender Operator- TRANSCRIBED BY [employer] Navneet TRAN MD Released Date Time- 09/28/08 1010 Nile Tena MD [facility] Final Result * EK EKG REG (09/21/2008 7:41 PM EDT) Anatomical Region Laterality Modality Other 09/21/2008 7:41 PM EDT Narrative 09/21/2008 8:17 PM EDT Sinus rhythm Normal ECG ? Blender Operator- NAS STATON ??M.D. ? Reading Physician- NAS STATON ??MJuanjo ? Released Date Time- 09/21/08 2017 Procedure Note Nas Staton - 08/03/2009 Sinus rhythm Normal ECG Blender Operator- NAS STATON M.D. Reading Physician- NAS STATON M.D. Released Date Time- 09/21/082016 Nile Tena MD [facility] HISTOR[facility] Final Result documented in this encounter Visit Diagnoses Not on filedocumented in this encounter
--- OUTSIDE RECORDS SUMMARY | 2024-05-04 22:57 | XMS_ITS | Encounter Summary ---
Author Organization [place] [address] Care Team Providers Care Cte Teacher Name Role Phone Unavailable Primary Care Provider Unavailabl e Encounter Details Date Type Department Care Team (Late st Contact Info) Description 05/07/2007 12:01 AM EST - 05/07/2007 11:59 PM EST Hospital Encounter [facility] Katarina Tan MD [address] [place] [address] [phone] (Fax) Social History Tobacco Use Types Packs/Day Years [...] 10:30 AM EST Office Visit [facility] [place] [address] [place] [address] Road [address] [place] [address] Nikolas Jha DPM [address] [facility] [address] [place] [address] Scheduled Orders Name Type Priority Associated Diagnoses Orde r Schedule MM MAMMO SCREEN W/CAD II PANEL Imaging Routine Once for 1 Occur dayami starting 08/02/2009 until 08/02/2009, 1 completed documented as of this encounter Procedures Procedure Name Priority Date/Time Associated Diagnosis Comments WW MAMMO SCREEN W/CAD II PANEL Routine 05/07/2007 11:50 AM EST documented in this encounter Results * MM MAMMO SCREEN W/CAD II PANEL (05/07/2007 11:50 AM EST) Anatomical Region Laterality Modality Other 05/07/2007 11:5 0 AM EST Narrative 05/08/2007 8:21 AM EST Procedure-WW MAMMO SCREEN W/CAD II PANEL Reason for exam- screening. Screening Mammogram With CAD Bilateral CC and MLO view(s) were taken. Prior study comparison- April 18, 2006, bilateral screening mammogram. ??January 27, 2002, bilateral screening mammogram. The breast tissue is heterogeneously dense. ??This may lower the sensitivity of mammography. ??No significant changes when compared with prior studies. IMPRESSION- No radiographic evidence of malignancy ? ([id number]) RECOMMENDATION- Routine screening mammogram in 1 year. * The patient with a palpable abnormality, unexplained by breast imaging, should be managed on clinical basis by the attending physician. * Breast imaging has a false negative rate of 15%. * The patient was notified by mail of the results of this examination. The mammogram was reviewed by a Radiologist and CAD. ? Replanting Machine Crewman- SHERINE GAR ? Reading Radiologist- MECHE GIRALDO ? Released Date Time- 05/08/07911 Procedure Note Meche Giraldo - 08/02/2009 Procedure-WW MAMMO SCREEN W/CAD II PANEL Reason for exam- screening. Screening Mammogram With CAD Bilateral CC and MLO view(s) were taken. Prior study comparison- April 18, 2006, bilateral screening mammogram. January 27, 2002, bilateral screening mammogram. The breast tissue is heterogeneously dense. This may lower the sensitivity of mammography. No significant changes when compared with prior studies. IMPRESSION- No radiographic evidence of malignancy ([id number]) RECOMMENDATION- Routine screening mammogram in 1 year. * The patient with a palpable abnormality, unexplained by breast imaging, should be managed on clinical basis by the attending physician. * Breast imaging has a false negative rate of 15%. * The patient was notified by mail of the results of this examination. The mammogram was reviewed by a Radiologist and CAD. Replanting Machine Crewman- SHERINE Toth Radiologist- MECHE GIRALDO MD Released Date Time- 05/08/07911 us Katarina Tan MD [facility] Final Result documented in this encounter Visit Diagnoses Not on filedocumented in this encounter
--- OUTSIDE RECORDS SUMMARY | 2024-05-04 22:57 | XMS_ITS | Clinical Summary ---
Author Organization Healthcare Address [address] [place] [address] Care Team Providers Care Freight Brake Operator Name Role Phone Pcp, No Primary Care Provider Unavailabl e Social History Tobacco Use Types Packs/Day Years Used Date Smoking Tobacco: Never Assessed Comments Unknown Sex and Gender Information Value Date Recorded Sex Assigned at Not on file Legal Sex Female 6:56 PM EDT Gender Identity Not on file Sexual Orientation Not on file Plan of Treatment Health Maintenance Due Date Last Done Comments [facility]-Depression Screening 1950 [facility]-/Child/Adol SDOH Screenings 1950 [facility]- SDOH Screenings 1969 [facility]-Adult SDOH Screenings 1969 CT Colonography 1996 Colonoscopy 1996 FIT-DNA 1996 FIT 1996 FOBT 1996 Sigmoidoscopy 1996 [facility]-Colorectal Cancer Screening 1996 [facility]-Zoster Vaccines (2 of 3) 08/18/2014 06/23/2014 [facility]-Pneumococcal Vaccine: 65+ Years (2 of 2 - PCV) 07/21/2021 07/21/2020 [id number] Vaccine ( - season) 2024 03/19/2021, 06/13/2020, 05/16/2020 [facility]-Influenza Vaccine (#1) 2024 01/25/2021 [facility]-Bone Density Scan 06/20/2024 06/20/2022 , 06/20/2022, 04/19/2019, Additional history exists [facility]-DTaP,Tdap,and Td Vaccines (2 - Td or Tdap) 06/23/2024 06/23/2014, 07/29/1996 [facility]-RSV Vaccine: 60+ Years or (1 - 1-dose 75+ series) 2026 [facility]-Hepatitis A Vaccines Aged Out 08/18/2018, 01/25 No longer eligible based on patient's age to complete this topic [facility]-HIB Vaccines Aged Out No longer e ligible based on patient's age to complete this topic [facility]-HPV Vaccines Aged Out No longer e ligible based on patient's age to complete this topic [facility]-IPV Vaccines Aged Out No longer e ligible based on patient's age to complete this topic [facility]-Rotavirus Vaccines Aged Out No lo nger eligible based on patient's age to complete this [place] [address] [employer] Care Teams Freight Brake Operator Relationship Specialty Start Date End Date Rj, [place] [address] PCP - General Family Medicine 11/24/23
--- OUTSIDE RECORDS SUMMARY | 2024-05-04 22:57 | XMS_ITS | Encounter Summary ---
Author Organization [place] [address] Care Team Providers Care Record Tabulating Clerk Name Role Phone Unavailable Primary Care Provider Unavailabl e Encounter Details Date Type Department Care Team (Late st Contact Info) Description 11/09/1996 3:10 PM EDT - 11/09/1996 11:59 PM EDT Hospital Encounter [facility] Rodolfo Santamaria Social History Tobacco Use [...] AM EST Office Visit [facility] [address] [place] [phone] Nikolas Jha, Mitzi [address] [place] [address] documented as of this encounter Visit Diagnoses Not on filedocumented in this encounter
--- OUTSIDE RECORDS SUMMARY | 2024-05-04 22:57 | XMS_ITS | Encounter Summary ---
Author Organization [place] [address] Care Team Providers Care Solar Sales Consultant Name Role Phone Carlos Manuel Barragan Primary Care Provider [phone] Reason for Visit * Reason Comments Gynecologic Exam Encounter Details Date Type Department Care Team (Latest Contact Info) Description 01/05/2013 2:40 PM EDT [facility] [address] [place] [phone] Raymond Noble MD Routine gynecological examination [...] Sign Reading Time Taken Comments Blood Pressure 118/60 01/05/2013 2:42 PM EDT Pulse - - Temperature - - Respiratory Rate - - Oxygen Saturation - - Inhaled Oxygen Concentration - - Weight 91.2 kg (201 lb) 01/05/2013 2:42 PM EDT Height 167.6 cm (5' 6 ) 01/05/2013 2:42 PM EDT Body Mass Index 32.44 01/05/2013 2:42 PM EDT documented in this encounter Progress Notes * Raymond Noble MD - 01/05/2013 3:28 PM EDT Juany Alarcon is here for an Annual Exam. She complains of hot flashes that have now reoccurred andof an over active bladder with urge incontinence. Patients past medical, family and social histories were reviewed and updated. There were no changes except as noted. Physical Exam Breast: Without masses or lesions Abdomin: Soft, without masses or tenderness Pelvic Exam: Vulva and Vagina - within normal limits Cervix - without lesions Uterus - within normal limits Adnexa - without masses or tenderness Rectal--negative IMP: nl exam. OAB Will treat with Vesicare !) mg qd for a month to see if this helps. Menopausal symptoms--will treat with Activelle .5 Juany was seen today for gynecologic exam. Diagnoses and associated orders for this visit: Routine gynecological examination - Cytology, Encyclopedia Research Worker Request (PAP Only); Future * Diana Salazar MA - 01/05/2013 2:44 PM EDT Filed Vitals: 01/05/13 1442 BP: 118/60 Height: 5' 6 (1.676 m) Weight: 201 lb (91.173 kg) documented in this encounter Miscellaneous Notes * Patient Instructions - Diana Salazar MA - 01/05/2013 2:44 PM EDT You may receive a survey about today's visit. Excellent patient care is our goal, Please take some time to let us know about your experience today and if their is anything we can do to improve our services. We appreciate your time. Normal results will be released to [employer], for abnormal results the office will contact you. If you have not received a call or result after 7-10 days please call the office for result. Thank you for enrolling in [employer]. Please follow the instructions below to securely access your online medical record. [employer] allows you to send messages to your doctor, view your test results, renew your prescriptions, request appointments and more. How Do I Sign Up? 1. In your Internet browser, navigate to [email or web address] or [email or web address]) and click on the [employer] link. 2. Click on the Use your Activation Code button in the New User Registration section on the right. You will see the Please Identify Yourself page. 3. Enter your [employer] Activation Code exactly as it appears below. You will not need to use this code after you???ve completed the sign-up process. This activation code will 60 days after the date at the top of this page at which time you must request a new code from your doctors office. [employer] Activation Code: [email or web address] Expires: 03/06/2013 2:44 PM 4. Enter your Social Security Number ([id number]) and Date of (mm/dd/yyyy) as indicated and click Next. You will be taken to the next sign-up page. 5. Create a [employer] ID. This will be your [employer] login ID and cannot be changed, so think of one that is secure and easy to remember. 6. Create a [employer] password. You can change your password at any time. 7. Enter your Password Reset Question and Answer. This can be used at a later time if you forget your password. Click Next. 8. Enter your e-mail address. You will receive e-mail notification when new information is available in [employer]. 9. Click Sign Up. You can now view your medical record. Additional Information Additional Information If you have questions, call your doctors office to talk to a [employer] staff member. Remember, [employer] is NOT to be used for urgent needs. For medical emergencies, dial 911. documented in this encounter Plan of Treatment Upcoming Encounters Date Type Department Care Team (Late st Contact Info) Description 05/24/2024 10:30 AM EST Office Visit [facility] [address] [place] [address] Nikolas Jha, SURENDRA [address] [place] [address] Scheduled Orders Name Type Priority Associated Diagnoses Orde r Schedule DATA COLLECTION TECHNICIAN CYTOLOGY REQUEST (PAP ONLY) Lab Routine Routine gynecological examination 1 Occurrences starting 01/05/2013 until 07/06/2013 documented as of this encounter Visit Diagnoses Diagnosis Routine gynecological examination- Primary documented in this encounter Care Teams Solar Sales Consultant Relationship Specialty Start Date End Date Carlos Manuel Barragan [address] [place] [address] PCP - General 07/03/10 documented as of this encounter
--- OUTSIDE RECORDS SUMMARY | 2024-05-04 22:57 | XMS_ITS | Referral Summary ---
Author Organization [facility]/[employer] Address [address] [place] [address] Phone Care Team Providers Care Extermination Inspector Name Role Phone Bassem Barragan Primary Care Provider [phone] Social History Tobacco Use Types Packs/Day Years Used Date Smoking Tobacco: Never Assessed Comments Unknown Sex and Gender Information Value Date Recorded Sex Assigned at Not on file Legal Sex Female 5:01 PM EDT Gender Identity Not on file Sexual Orientation Not on file Plan of Treatment Not on file Care Teams Extermination Inspector Relationship Specialty Start Date End Date Bassem Barragan [address] [place] [address] PCP - General 06/29/10
--- OUTSIDE RECORDS SUMMARY | 2024-05-04 22:57 | XMS_ITS | Encounter Summary ---
Author Organization [facility] [place] [address] Care Team Providers Care Development Assistant Name Role Phone Unavailable Primary Care Provider Unavailabl e Encounter Details Date Type Department Care Team (Late st Contact Info) Description 12/22/2000 2:13 AM EDT - 12/22/2000 11:59 PM EDT Hospital Encounter [facility] Katarina Tan MD [address] [place] [address] [phone] (Fax) Social History Tobacco Use Types Packs/Day [...] 10:30 AM EST Office Visit [facility] [place] [address] [place] [phone] Nikolas Jha DPM [address] [place] [address] documented as of this encounter Visit Diagnoses Not on filedocumented in this encounter
--- OUTSIDE RECORDS SUMMARY | 2024-05-04 22:57 | XMS_ITS | Encounter Summary ---
Author Organization [place] [address] Care Team Providers Care Nurse Assistant Name Role Phone Unavailable Primary Care Provider Unavailabl e Encounter Details Date Type Department Care Team (Late st Contact Info) Description 04/18/2006 11:12 AM EST - 04/18/2006 11:59 PM EST Hospital Encounter [facility] Katarina Tan MD [address] [place] [address] [phone] (Fax) Social History Tobacco Use Types Packs/Day [...] 10:30 AM EST Office Visit [facility] [place] [address] [place] [address] Road [address] [place] [phone] Nikolas Jha DPM [address] [place] [phone] Scheduled Orders Name Type Priority Associated Diagnoses Orde r Schedule MM MAMMO SCREEN W/CAD PANEL Imaging Routine Once for 1 Occur dayami starting 08/02/2009 until 08/02/2009, 1 completed documented as of this encounter Procedures Procedure Name Priority Date/Time Associated Diagnosis Comments WW MAMMO SCREEN W/CAD PANEL Routine 04/18/2006 10:28 AM EST documented in this encounter Results * MM MAMMO SCREEN W/CAD PANEL (04/18/2006 10:28 AM EST) Anatomical Region Laterality Modality Other 04/18/2006 10:2 8 AM EST Narrative 2006 6:42 AM EST Procedure-WW MAMMO SCREEN W/CAD PANEL Screening Mammogram Bilateral CC and MLO view(s) were taken. Prior study comparison- March 29, 2005, right breast unilateral diagnostic study. ??December 22, 2000, bilateral screening mammogram. The breast tissue is heterogeneously dense. ??This may lower the sensitivity of mammography. ??No significant changes when compared with prior studies. IMPRESSION- No radiographic evidence of malignancy ? ([id number]) RECOMMENDATION- Routine screening mammogram in 1 year. * The patient with a palpable abnormality, unexplained by breast imaging, should be managed on clinical basis by the attending physician. * Breast imaging has a false negative rate of 15%. * The patient was notified by mail of the results of this examination. The mammogram was reviewed by a Radiologist and CAD. ? Lining Printer- KELLEY DIAS ? Reading Radiologist- YOUNG CRAWFORD ? Released Date Time- 04/21/06 1246 Procedure Note Young Crawford - 08/02/2009 Procedure-WW MAMMO SCREEN W/CAD PANEL Screening Mammogram Bilateral CC and MLO view(s) were taken. Prior study comparison- March 29, 2005, right breast unilateral diagnostic study. December 22, 2000, bilateral screening mammogram. The breast tissue is heterogeneously dense. This may lower the sensitivity of mammography. No significant changes when compared with prior studies. IMPRESSION- No radiographic evidence of malignancy ([id number]) RECOMMENDATION- Routine screening mammogram in 1 year. * The patient with a palpable abnormality, unexplained by breast imaging, should be managed on clinical basis by the attending physician. * Breast imaging has a false negative rate of 15%. * The patient was notified by mail of the results of this examination. The mammogram was reviewed by a Radiologist and CAD. Lining Printer- KELLEY DIAS Reading Radiologist- YOUNG CRAWFORD Released Date Time- 04/21/06 1246 Katarina Tan MD [facility] Final Result documented in this encounter Visit Diagnoses Not on filedocumented in this encounter
--- OUTSIDE RECORDS SUMMARY | 2024-05-04 22:57 | XMS_ITS | Encounter Summary ---
Author Organization [place] [address] Care Team Providers Care Head Batcher Name Role Phone Unavailable Primary Care Provider Unavailabl e Encounter Details Date Type Department Care Team (Late st Contact Info) Description 07/27/2008 7:46 AM EST - 07/27/2008 11:59 PM EST Hospital Encounter [facility] IMAGING HEB EDG Brian Newman MD [address] [id number] Social History Tobacco Use Types Packs/Day Years [...] 10:30 AM EST Office Visit [facility] [place] [address] [place] [address] Road [address] [place] [address] Nikolas Jha DPM [address] [place] [address] Scheduled Orders Name Type Priority Associated Diagnoses Orde r Schedule CT LOWER EXT W/O [facility] Imaging Routine Once for 1 Occurrences starting 08/03/2009 until 08/03/2009, 1 completed MR LUMBAR SPINE W/O [facility] MRI Imaging Routine Once for 1 Occur rences starting 08/03/2009 until 08/03/2009, 1 completed MR BILAT HIPS W/O [facility] MRI Imaging Routine Once for 1 Occur rences starting 08/03/2009 until 08/03/2009, 1 completed documented as of this encounter Procedures Procedure Name Priority Date/Time Associated Diagnosis Comments KH MRI BILAT HIPS W/O Routine 07/27/2008 9:30 AM EST [facility] MRI LUMBAR SPINE W/O Routine 07/27/2008 9:[address] LOWER EXT W/O Routine 07/27/2008 8 :10 AM EST documented in this encounter Results * MR BILAT HIPS W/O [facility] MRI (07/27/2008 9:30 AM EST) Anatomical Region Laterality Modality Other 07/27/2008 9:30 AM EST Narrative 07/27/2008 2:02 PM EST MRI of the hips. Indications- Right leg pain. History- ??Right leg pain. Technique- ??Long and short imaging parameters were obtained in the sagittal, coronal and axial orientation. Examination demonstrates severe degenerative changes about the right hip joint. There is essentially ppby-cp-mheg articulation of the superior portion of the femoral head and the acetabular roof anterolaterally. ??There is essentially denudement on the articular cartilage. ??Subcortical edema and cortical irregularity as well as cyst formation indicative of labral abnormalities are seen as well. Again, this is a joint space process with abnormalities seen on both sides of the joint space. ??Less prominent degenerative disease is seen in the left hip. ??There are no fractures. ??The hamstring mechanisms are intact. ??There is no evidence of a greater trochanteric bursitis. Note is made of mild prominence of the endometrial canal, which should be correlated with the patient's menstrual cycle. Impression- 1. Severe degenerative changes of the right hip including compromise of the articular cartilage and labrum anterosuperiorly, as detailed above. 2. Degenerative changes of the left hip. 3. Prominence of the endometrial canal, which should be correlated with the patient's menstrual cycle. ? Software Developer Manager- CRISTHIAN CARVALHO ? Reading Physician- DELANO GRAHAM ??MAmanda. ? Released Date Time- 07/27/08 144 Procedure Note Delano Graham - 08/03/2009 MRI of the hips. Indications- Right leg pain. History- Right leg pain. Technique- Long and short imaging parameters were obtained in the sagittal, coronal and axial orientation. Examination demonstrates severe degenerative changes about the right hip joint. There is essentially bfjf-ls-pqsl articulation of the superior portion of the femoral head and the acetabular roof anterolaterally. There is essentially denudement on the articular cartilage. Subcortical edema and cortical irregularity as well as cyst formation indicative of labral abnormalities are seen as well. Again, this is a joint space process with abnormalities seen on both sides of the joint space. Less prominent degenerative disease is seen in the left hip. There are no fractures. The hamstring mechanisms are intact. There is no evidence of a greater trochanteric bursitis. Note is made of mild prominence of the endometrial canal, which should be correlated with the patient's menstrual cycle. Impression- 1. Severe degenerative changes of the right hip including compromise of the articular cartilage and labrum anterosuperiorly, as detailed above. 2. Degenerative changes of the left hip. 3. Prominence of the endometrial canal, which should be correlated with the patient's menstrual cycle. Software Developer Manager- CRISTHIAN CARVALHO Reading Physician- DELANO GRAHAM M.D. Released Date Time- 07/27/08 1447 us Brian Newman MD [facility] Fin al Result * MR LUMBAR SPINE W/O KH MRI (07/27/2008 9:00 AM EST) Anatomical Region Laterality Modality Other 07/27/2008 9:00 AM EST Narrative 07/27/2008 12:50 PM EST MRI of the lumbar spine. Indications- Radicular symptoms. History- ??Radicular symptoms. Technique- ??Long and short imaging parameters are obtained in the sagittal and axial orientation. The regional telecommunications specialist view obtained on this patient demonstrates a levoscoliosis centered at L2-L3. ??On the sagittal images, there was determined subluxation at the same level of approximately 10-15%. ??There was also spondylosis, disk bulging and facet disease at this level. ??Despite these abnormalities, gross capacity of the central canal is maintained. ??The foramina also appear to be grossly capacious as well. There is spondylosis, disk bulging and facet disease at L1-L2 of questionable architectural significance. ??The L2-L3 level has mild disease of questionable architectural significance as well. ??More significant disease including mild degenerative subluxation is seen at L3-L4. Here too, however, the gross capacity of the central canal and foramina is maintained and the nerve roots exit uninhibited. ??Note is also made of disease at the L5-S1 level. ??At this level, there is disk bulging with leftward preference and foraminal narrowing at the inlet on the left. ??Radiographically, this is the most significant foraminal narrowing in this patient. Impression- 1. Levoscoliosis centered at L2-L3. ??Again, there is degenerative subluxation at this level, disk bulging and facet disease, but the gross capacity of the central canal and foramina is maintained. 2. Disk bulging, spondylosis and facet disease at L5-S1 with left foraminal narrowing at the inlet. ??This is the most significant foraminal narrowing in this patient radiographically and is of borderline significance radiographically. 3. Degenerative disease and degenerative subluxation at L4-L5 of questionable architectural significance. 4. Mild degenerative disease at L1-L2 of questionable architectural significance. ? Software Developer Manager- CRISTHIAN CARVALHO ? Reading Physician- DELANO GRAHAM ??M.D. ? Released Date Time- 07/27/08 1447 Procedure Note Delano Graham - 08/03/2009 MRI of the lumbar spine. Indications- Radicular symptoms. History- Radicular symptoms. Technique- Long and short imaging parameters are obtained in the sagittal and axial orientation. The regional telecommunications specialist view obtained on this patient demonstrates a levoscoliosis centered at L2-L3. On the sagittal images, there was determined subluxation at the same level of approximately 10-15%. There was also spondylosis, disk bulging and facet disease at this level. Despite these abnormalities, gross capacity of the central canal is maintained. The foramina also appear to be grossly capacious as well. There is spondylosis, disk bulging and facet disease at L1-L2 of questionable architectural significance. The L2-L3 level has mild disease of questionable architectural significance as well. More significant disease including mild degenerative subluxation is seen at L3-L4. Here too, however, the gross capacity of the central canal and foramina is maintained and the nerve roots exit uninhibited. Note is also made of disease at the L5-S1 level. At this level, there is disk bulging with leftward preference and foraminal narrowing at the inlet on the left. Radiographically, this is the most significant foraminal narrowing in this patient. Impression- 1. Levoscoliosis centered at L2-L3. Again, there is degenerative subluxation at this level, disk bulging and facet disease, but the gross capacity of the central canal and foramina is maintained. 2. Disk bulging, spondylosis and facet disease at L5-S1 with left foraminal narrowing at the inlet. This is the most significant foraminal narrowing in this patient radiographically and is of borderline significance radiographically. 3. Degenerative disease and degenerative subluxation at L4-L5 of questionable architectural significance. 4. Mild degenerative disease at L1-L2 of questionable architectural significance. Software Developer Manager- CRISTHIAN CARVALHO Reading Physician- DLEANO GRAHAM M.D. Released Date Time- 07/27/08 1447 us Brian Newman MD [facility] al Result * CT LOWER EXT W/O KH (07/27/2008 8:10 AM EST) Anatomical Region Laterality Modality Other 07/27/2008 8:10 AM EST Narrative 07/27/2008 12:[address] of the right knee. Indications- Pain status post knee replacement. History- ??Pain status post knee replacement. Technique- ??Serial axial images were obtained through the right knee. After axial image acquisition, coronal and sagittal reformatted images were obtained. ??Intravenous contrast was not administered. 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 ??This is a three-component prosthesis. There is anatomic alignment. ??There is no evidence of loosening. Specifically, all prosthesis bony interfaces are intact with good purchase. There is no cystic abnormalities to suggest particle disease. Impression- Status post total knee replacement on the right with anatomic alignment and no evidence of loosening. ??In addition, please note that the extensor mechanism appears to be intact. There is no patella lynnette or baja. ? Software Developer Manager- CRISTHIAN CARVALHO ? Reading Physician- DELANO GRAHAM ??JodyD. ? Released Date Time- 07/27/08 1447 Procedure Note Delano Graham - 08/03/2009 CT of the right knee. Indications- Pain status post knee replacement. History- Pain status post knee replacement. Technique- Serial axial images were obtained through the right knee. After axial image acquisition, coronal and sagittal reformatted images were obtained. Intravenous contrast was not administered. 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 This is a three-component prosthesis. There is anatomic alignment. There is no evidence of loosening. Specifically, all prosthesis bony interfaces are intact with good purchase. There is no cystic abnormalities to suggest particle disease. Impression- Status post total knee replacement on the right with anatomic alignment and no evidence of loosening. In addition, please note that the extensor mechanism appears to be intact. There is no patella lynnette or baja. Software Developer Manager- CRISTHIAN Toth Physician- DELANO GRAHAM M.D. Released Date Time- 07/27/08 1447 Brian Newman MD [facility] al Result documented in this encounter Visit Diagnoses Not on filedocumented in this encounter
--- OUTSIDE RECORDS SUMMARY | 2024-05-04 22:57 | XMS_ITS | Encounter Summary ---
Author Organization [place] [address] Care Team Providers Care Cover Stripper Name Role Phone Unavailable Primary Care Provider Unavailabl e Encounter Details Date Type Department Care Team (Late st Contact Info) Description 04/01/1996 9:32 AM EST - 04/01/1996 11:59 PM EST Hospital Encounter HST EPIC CON UNK EDG Rodolfo Santamaria Social History Tobacco Use [...] AM EST Office Visit [facility] [address] [place] [address] Nikolas Jha, Mitzi [address] [place] [address] documented as of this encounter Visit Diagnoses Not on filedocumented in this encounter
--- OUTSIDE RECORDS SUMMARY | 2024-05-04 22:57 | XMS_ITS | Encounter Summary ---
Author Organization [place] [address] Care Team Providers Care Guidance Secretary Name Role Phone Carlos Manuel Barragan Primary Care Provider [phone] Encounter Details Date Type Department Care Team (Latest Contact Info) Description 08/20/2011 9:59 AM EDT - 08/20/2011 11:59 PM EDT Hospital Encounter [facility] Mammography [address] [place], [place] [id number] Raymond Noble MD Other screening mammogram Discharge [...] encounter Progress Notes * Unknown, Unknown - 08/20/2011 9:59 AM EDT * Unknown, Unknown - 08/20/2011 9:59 AM EDT documented in this encounter Plan of Treatment Upcoming Encounters Date Type Department Care Team (Late st Contact Info) Description 05/24/2024 10:30 AM EST Office Visit [facility] [address] [place] [address] Abhijeet Nikolas Neil, DPM [address] [place] [address] documented as of this encounter Procedures Procedure Name Priority Date/Time Associated Diagnosis Comments MM MAMMO DIGITAL SCREENING W CAD BILAT Routine 08/20/2011 10:26 AM EDT Other screening mammogram documented in this encounter Results * MM MAMMO DIGITAL SCREENING W CAD BILAT (08/20/2011 10:26 AM EDT) Anatomical Region Laterality Modality Breast Bilateral Mammography 08/20/2011 12:4 2 PM EDT Impressions 08/20/2011 2:17 PM EDT : No radiographic evidence of malignancy ([id number]) ~ RECOMMENDATION: Routine screening mammogram in 1 [...] reviewed by a Radiologist and CAD. Narrative 08/20/2011 2:17 PM EDT Procedure:MM MAMMO DIGITAL SCREENING W CAD BILAT ~ Reason for exam: screening ??(asymptomatic). ~ MM MAMMO DIG SCREEN CAD BILAT Bilateral CC and MLO view(s) were taken. The breast tissue is heterogeneously dense. ??This may lower the sensitivity of mammography. ??No suspicious calcifications. Compared with prior studies the most recent being 07-27-10 ~ Procedure Note Arcadio Tran R - 08/20/2011 Procedure:MM MAMMO DIGITAL SCREENING W CAD BILAT ~ Reason for exam: screening (asymptomatic). ~ MM MAMMO DIG SCREEN CAD BILAT Bilateral CC and MLO view(s) were taken. The breast tissue is heterogeneously dense. This may lower thesensitivity of mammography. No suspicious calcifications. Compared with prior studies the most recent being 07-27-10 ~ IMPRESSION: No radiographic evidence of malignancy ([id number]) ~ RECOMMENDATION: Routine screening mammogram in 1 [...] mammogram documented in this encounter Care Teams Guidance Secretary Relationship Specialty Start Date End Date Carlos Manuel Barragan [address] [place] [address] [address] [place] [address] PCP - General 07/03/10 documented as of this encounter
--- OUTSIDE RECORDS SUMMARY | 2024-05-04 22:57 | XMS_ITS | Encounter Summary ---
Author Organization [place] [address] Care Team Providers Care Shrimp Packer Name Role Phone Unavailable Primary Care Provider Unavailabl e Encounter Details Date Type Department Care Team (Late st Contact Info) Description 02/01/2003 12:01 AM EDT - 02/01/2003 11:59 PM EDT Hospital Encounter [facility]ST [facility] Katarina Tan MD [address] [place] [address] [phone] (Fax) Social History Tobacco Use Types Packs/Day [...] 10:30 AM EST Office Visit [facility] [place] [address] [place] [phone] Nikolas Jha DPM [address] [place] [address] documented as of this encounter Visit Diagnoses Not on filedocumented in this encounter
--- OUTSIDE RECORDS SUMMARY | 2024-05-04 22:57 | XMS_ITS | Encounter Summary ---
Author Organization [place] [address] Care Team Providers Care Carpet Layer Helper Name Role Phone Unavailable Primary Care Provider Unavailabl e Encounter Details Date Type Department Care Team (Late st Contact Info) Description 07/08/2008 12:01 AM EST - 07/08/2008 11:59 PM EST Hospital Encounter HST BREAST HEA CTR EDG Raymond Noble MD Social History Tobacco Use Types Packs/Day [...] AM EST Office Visit [facility] [address] [place] [address] Nikolas Jha, Mitzi [address] [place] [phone] Scheduled Orders Name Type Priority Associated Diagnoses Orde r Schedule MM DIG SCR ZEN PANEL W/CAD Imaging Routine Once for 1 Occur rences starting 08/03/2009 until 08/03/2009, 1 completed documented as of this encounter Procedures Procedure Name Priority Date/Time Associated Diagnosis Comments MM DIG SCR ZEN PANEL W/CAD Routine 07/08/2008 11:45 AM EST documented in this encounter Results * MM DIG SCR ZEN PANEL W/CAD (07/08/2008 11:45 AM EST) Anatomical Region Laterality Modality Other 07/08/2008 11:4 5 AM EST Narrative 07/08/2008 12:14 PM EST Procedure-MM DIG SCR ZEN PANEL W/CAD MM DIGITAL SCR BILAT PANEL Bilateral CC and MLO view(s) were taken. Prior study comparison- May 07, 2007, bilateral screening mammogram with CAD. ??March 13, 2004, bilateral mobile screening mammogram. The breast tissue is heterogeneously dense. ??This may lower the sensitivity of mammography. ??No significant changes when compared with prior studies. IMPRESSION- No radiographic evidence of malignancy ? ([id number]) RECOMMENDATION- Routine screening mammogram in 1 year. * The patient with a palpable abnormality, unexplained by breast imaging, should be managed on clinical basis by the attending physician. * Breast imaging has a false negative rate of 15%. * The patient was notified by mail of the results of this examination. The mammogram was reviewed by a Radiologist and CAD. ? Barrel Rifler Hook- KELLEY DIAS ? Reading Physician- MARLON SINGH ? Released Date Time- 07/08/08 1257 Procedure Note Marlon Singh W - 08/03/2009 Procedure-MM DIG SCR ZEN PANEL W/CAD MM DIGITAL SCR BILAT PANEL Bilateral CC and MLO view(s) were taken. Prior study comparison- May 07, 2007, bilateral screening mammogram with CAD. March 13, 2004, bilateral mobile screening mammogram. The breast tissue is heterogeneously dense. This may lower the sensitivity of mammography. No significant changes when compared with prior studies. IMPRESSION- No radiographic evidence of malignancy ([id number]) RECOMMENDATION- Routine screening mammogram in 1 year. * The patient with a palpable abnormality, unexplained by breast imaging, should be managed on clinical basis by the attending physician. * Breast imaging has a false negative rate of 15%. * The patient was notified by mail of the results of this examination. The mammogram was reviewed by a Radiologist and CAD. Barrel Rifler Hook- KELLEY Toth Physician- MARLON SINGH MD Released Date Time- 07/08/08 1257 Raymond Noble MD [facility] Iliana l Result documented in this encounter Visit Diagnoses Not on filedocumented in this encounter
--- OUTSIDE RECORDS SUMMARY | 2024-05-04 22:57 | XMS_ITS | Encounter Summary ---
Author Organization [place] [address] Care Team Providers Care Social Insurance Adviser Name Role Phone Unavailable Primary Care Provider Unavailabl e Encounter Details Date Type Department Care Team (Late st Contact Info) Description 10/04/1998 4:17 AM EDT - 10/04/1998 11:59 PM EDT Hospital Encounter HST EPIC CON UNK EDG [...] AM EST Office Visit [facility] [address] [place] [phone] Nikolas Jha, [facility] [address] [place] [address] documented as of this encounter Visit Diagnoses Not on filedocumented in this encounter
--- OUTSIDE RECORDS SUMMARY | 2024-05-04 22:57 | XMS_ITS | Encounter Summary ---
Author Organization [place] [address] Care Team Providers Care Software Design Analyst Name Role Phone Unavailable Primary Care Provider Unavailabl e Encounter Details Date Type Department Care Team (Late st Contact Info) Description 07/25/2009 12:01 AM EST - 07/25/2009 11:59 PM EST Hospital Encounter HST BREAST [...] 10:30 AM EST Office Visit [facility] [address] [place] [phone] Nikolas Jha, Mitzi [address] [place] [phone] Scheduled Orders Name Type Priority Associated Diagnoses Orde r Schedule MM DIG SCR ZEN PANEL W/CAD Imaging Routine Once for 1 Occur rences starting 08/04/2009 until 08/04/2009, 1 completed documented as of this encounter Procedures Procedure Name Priority Date/Time Associated Diagnosis Comments MM DIG SCR ZEN PANEL W/CAD Routine 07/25/2009 10:30 AM EST documented in this encounter Results * MM DIG SCR ZEN PANEL W/CAD (07/25/2009 10:30 AM EST) Anatomical Region Laterality Modality Other 07/25/2009 10:3 0 AM EST Narrative 07/25/2009 12:26 PM EST Procedure-MM DIG SCR ZEN PANEL W/CAD MM DIGITAL SCR BILAT PANEL Bilateral CC and MLO view(s) were taken. The breast tissue is heterogeneously dense. ??This may lower the sensitivity of mammography. ??No significant new finding when compared with films dated 07-08-08 IMPRESSION- No radiographic evidence of malignancy ? ([id number]) RECOMMENDATION- Routine screening mammogram in 1 year. * The patient with a palpable abnormality, unexplained by breast imaging, should be managed on clinical basis by the attending physician. * Breast imaging has a false negative rate of 15%. * The patient was notified by mail of the results of this examination. ? Global Human Resources Director- SHERINE GAR ? Reading Physician- ARCADIO TRAN ??MD ? Released Date Time- 07/25/09 1542 Procedure Note Arcadio Tran R - 08/04/2009 Procedure-MM DIG SCR ZEN PANEL W/CAD MM DIGITAL SCR BILAT PANEL Bilateral CC and MLO view(s) were taken. The breast tissue is heterogeneously dense. This may lower the sensitivity of mammography. No significant new finding when compared with films dated 07-08-08 IMPRESSION- No radiographic evidence of malignancy ([id number]) RECOMMENDATION- Routine screening mammogram in 1 year. * The patient with a palpable abnormality, unexplained by breast imaging, should be managed on clinical basis by the attending physician. * Breast imaging has a false negative rate of 15%. * The patient was notified by mail of the results of this examination. Global Human Resources Director- SHERINE Toth Physician- ARCADIO TRAN MD Released Date Time- 07/25/09 1542 [address] [facility] Iliana jane Result documented in this encounter Visit Diagnoses Not on filedocumented in this encounter
--- OUTSIDE RECORDS SUMMARY | 2024-05-04 22:57 | XMS_ITS | Encounter Summary ---
Author Organization [place] [address] Care Team Providers Care Import/Export Freight Forwarder Name Role Phone Unavailable Primary Care Provider Unavailabl e Encounter Details Date Type Department Care Team (Late st Contact Info) Description 03/31/2008 4:24 AM EST - 03/31/2008 11:59 PM EST Hospital Encounter HST LAB EDG Raymond Noble MD Social History Tobacco [...] AM EST Office Visit [facility] [address] [place] [phone] Nikolas Jha, Mitzi [address] [place] [address] documented as of this encounter Visit Diagnoses Not on filedocumented in this encounter
--- OUTSIDE RECORDS SUMMARY | 2024-05-04 22:57 | XMS_ITS | Encounter Summary ---
Author Organization Healthcare Address [address] [place] [address] Care Team Providers Care Content Assistant Name Role Phone Unavailable Primary Care Provider Unavailabl e Encounter Details Date Type Department Care Team (Late st Contact Info) Description 09/21/2021 Telephone [facility] [address] [place] [address] Dental, Provider, DDS [address] [place] [address] Social History Tobacco Use Types Packs/Day Years Used Date Smoking Tobacco: Never Assessed Comments Unknown Sex and Gender Information Value Date Recorded Sex Assigned at Not on file Legal Sex Female 6:56 PM EDT Gender Identity Not on file Sexual Orientation Not on file documented as of this encounter Miscellaneous Notes * Telephone Encounter - Mary Dixon - 09/21/2021 3:46 PM EDT . documented in this encounter Plan of Treatment Not on file documented as of this encounter Visit Diagnoses Not on filedocumented in this encounter
--- OUTSIDE RECORDS SUMMARY | 2024-05-04 22:57 | XMS_ITS | Encounter Summary ---
Author Organization [place] [address] Care Team Providers Care Automotive Design Layout Drafter Name Role Phone Unavailable Primary Care Provider Unavailabl e Encounter Details Date Type Department Care Team (Late st Contact Info) Description 03/13/2004 1:04 AM EDT - 03/13/2004 11:59 PM EDT Hospital Encounter [facility] Katarina Tan MD [address] [place] [address] [phone] (Fax) Social History Tobacco Use Types Packs/Day [...] 10:30 AM EST Office Visit [facility] [place] [address] [place] [address] Nikolas Jha DPM [address] [place] [address] documented as of this encounter Visit Diagnoses Not on filedocumented in this encounter
--- OUTSIDE RECORDS SUMMARY | 2024-05-04 22:57 | XMS_ITS | Encounter Summary ---
Author Organization [place] [address] Care Team Providers Care Pet House Sitter Name Role Phone Unavailable Primary Care Provider Unavailabl e Encounter Details Date Type Department Care Team (Late st Contact Info) Description 06/22/2008 12:01 AM EST - 06/22/2008 11:59 PM EST Hospital Encounter HST BREAST [...] AM EST Office Visit [facility] [address] [place] [address] Nikolas Jha, [facility] [address] [place] [address] documented as of this encounter Visit Diagnoses Not on filedocumented in this encounter
--- OUTSIDE RECORDS SUMMARY | 2024-05-04 22:57 | XMS_ITS | Clinical Summary ---
Author Organization [facility] Address [address] [place] [address] Phone Care Team Providers Care Hand Hide Stretcher Name Role Phone Bassem Barragan Primary Care Provider [phone] Social History Tobacco Use Types Packs/Day Years Used Date Smoking Tobacco: Never Assessed Comments Unknown Sex and Gender Information Value Date Recorded Sex Assigned at Not on file Legal Sex Female 5:01 PM EDT Gender Identity Not on file Sexual Orientation Not on file Plan of Treatment Health Maintenance Due Date Last Done Comments Hepatitis C Screening 1951 DTap,Tdap,and Td (1 - Tdap) 1962 Mammogram Screening 1991 Colonoscopy 1996 Shingrix (#1) 2001 DEXA Scan 2016 Pneumococcal 65+ (1 of 1 - PCV) 2016 Wellness 65 and over 2016 Influenza Vaccine (#1) 2024 RSV Vaccine (60+ or ) (1 - 1-dose 75+ series) 2026 HPV Aged Out No longer eligi ble based on patient's age to complete this topic Meningococcal conjugate mabel nt 4 (MCV4) Aged Out No longer eligible b ased on patient's age to complete this topic RSV Immunization (<20 months) Aged Out No longer eligible based on patient's age to complete this topic Care Teams Hand Hide Stretcher Relationship Specialty Start Date End Date Bassem Barragan [address] [place] [address] PCP - General 06/29/10
--- OUTSIDE RECORDS SUMMARY | 2024-05-04 22:57 | XMS_ITS | Encounter Summary ---
Author Organization [place] [address] Care Team Providers Care Distribution Accounting Clerk Name Role Phone Carlos Manuel Barragan Primary Care Provider [phone] Reason for Visit * Auth/Cert/Inpt - Closed Specialty Diagnoses / Procedures Referred By Heather t Referred To Contact Diagnoses [place] NEUROMA CONTRACTED JOINT LEFT Procedures [place] LEFT 2ND 3RD TOES EXCISION NEUROMA LEFT 3RD INTERMETATARSAL SPACE FLEXOR TENOTOMY LEFT 4TH TOE EDG [address] [place] [id number] Phone: tel: fax: Referral ID Status Reason Start Date Expiration Date Visits Re quested Visits Authorized [id number] Closed 09/28/2010 03/27/2011 1 1 Encounter Details Date Type Department Care Team (Latest Contact Info) Description 10/05/2010 6:57 AM EDT - 10/05/2010 10:09 AM EDT Hospital Encounter EDG [address] [place] [address] Nikolas Jha DPM [address] [address] Discharge Disposition: Home or Self Care Social [...] Sign Reading Time Taken Comments Blood Pressure 121/75 10/05/2010 9:21 AM EDT Pulse 71 10/05/2010 9:21 AM EDT Temperature 36.3 ??C (97.3 ??F) 10/05/2010 9:21 AM ED T Respiratory Rate 18 10/05/2010 9:21 AM EDT Oxygen Saturation 97% 10/05/2010 9:21 AM EDT Inhaled Oxygen Concentration - - Weight 94.2 kg (207 lb 9.6 oz) 10/05/2010 7:32 A M EDT Height 167.6 cm (5' 6 ) 09/25/2010 2:43 PM EDT Body Mass Index 33.51 09/25/2010 2:43 PM EDT documented in this encounter Medications at Time of Discharge aspirin 81 mg tabletIndications:p er Ortho instructions - resume when off Eliquis Take 81 mg by mouth daily. documented as of this encounter Discharge Disposition Disposition Code Departure Means Destination Home or Self Care documented in this encounter Progress Notes * Unknown, Unknown - 10/09/2010 10:21 AM EDT * Unknown, Unknown - 10/09/2010 10:21 AM EDT * Unknown, Unknown - 10/09/2010 10:21 AM EDT * Unknown, Unknown - 10/09/2010 10:21 AM EDT * Unknown, Unknown - 10/05/2010 7:03 AM EDT * Unknown, Unknown - 10/05/2010 7:03 AM EDT documented in this encounter H&P Notes * Unknown, Unknown - 10/09/2010 10:21 AM EDT documented in this encounter Procedure Notes * Unknown, Unknown - 10/17/2010 11:22 AM EDT * Unknown, Unknown - 10/09/2010 10:21 AM EDT * Unknown, Unknown - 10/09/2010 10:21 AM EDTAssociated Order(s): SCANNED ANESTHESIA FORMS * Unknown, Unknown - 10/08/2010 8:59 PM EDTAssociated Order(s): SCANNED OR REPORT documented in this encounter Nursing Notes * Unknown, Unknown - 10/09/2010 10:21 AM EDT * Unknown, Unknown - 10/09/2010 10:21 AM EDT documented in this encounter Plan of Treatment Upcoming Encounters Date Type Department Care Team (Late st Contact Info) Description 05/24/2024 10:30 AM EST Office Visit [facility] [address] [place] [address] Nikolas Jha, [facility] [address] [place] [address] documented as of this encounter Procedures Procedure Name Priority Date/Time Associated Diagnosis Comments SCANNED ANESTHESIA FORMS 10/09/2010 12:00 AM EDT SCANNED OR REPORT 10/08/2010 12: 00 AM EDT PATHOLOGY TISSUE REPORT Routine 10/05/2010 2:59 PM EDT TOMLINSON'S NEUROMA EXCISION 10/05/2010 8:17 AM EDT same as preop Special Needs NIECY CPT 17031 06148 [id number] 9157/ELISHA HAMMER TOE REPAIR 10/05/2010 8:1 7 AM EDT same as preop Special Needs NIECY CPT 43090 09495 [id number] 9157/ELISHA documented in this encounter Results * SCANNED ANESTHESIA FORMS (10/09/2010 12:00 AM EDT) Narrative 10/09/2010 10:21 AM EDT Ordered by an unspecified provider. Transcriptions Unknown, Unknown - 10/09/2010 10:21 AM EDT us Unknown Unknown PROCEDURE/MINOR SURGICAL ORDERAB LES Final Result * SCANNED OR REPORT (10/08/2010 12:00 AM EDT) Narrative 10/08/2010 8:59 PM EDT Ordered by an unspecified provider. Transcriptions Unknown, Unknown - 10/08/2010 8:59 PM EDT us Unknown Unknown PROCEDURE/MINOR SURGICAL ORDERAB LES Final Result * SURGICAL PATHOLOGY REPORT (10/05/2010 2:59 PM EDT) Surgical Pathology Report ? PATIENT NAME:DIAMANTE EDOUARD ?Surgical Pathology Report ? Accession Number ?Collected Date/Time ? Received Date/Time ? [id number] ? 10/05/10 14:59 EDT ?10/05/10 14:59 EDT ? Diagnosis ? Neuroma, excision, left third metatarsal: ? - Neuroma consistent with Tomlinson's neuroma. ? Yoel Elkins MD ? (Electronically signed by) ? Verified: 10/09/2010 ? [facility] ? Clinical Information ? Left foot hammertoes; neuroma left third metatarsal ? Gross Description ? Received in formalin labeled with the patient's name and neuroma left ? third metatarsal is a 2.6 x 0.5 x 0.3 cm elongated fibrofatty soft tissue. ? Sectioned and entirely submitted in one cassette./BC ? ANUP /DE ? Microscopic Description ? Microscopic examination is performed and the findings corroborate the ? diagnosis. [facility] 10/05/2010 2:59 PM EDT us Nikolas Jha DPMitzi PATHOLOGY ORDERABLES Final Result [facility] [address] [place] [address] documented in this encounter Visit Diagnoses Not on filedocumented in this encounter Administered Medications Inactive Administered Medications - up to 1 most recent administrations Medication Order MAR Action Action Date Dose Rate Site ceFAZolin (ANCEF) 1 gram/50 mL IVPB 1 dose, Starting on Fri10/05/10 at 0747, Until Fri10/05/10 at 0747, JACQUELINE COOPER: Cabinet Override Given 10/05/2010 8:15 AM EDT 1 g documented in this encounter Discontinued Medications Medication Sig Discontinue Reason Start Date End Da te gabapentin (NEURONTIN) 100 mg tablet Take 100 mg by mouth 3 times daily. 10/05/2010 documented as of this encounter Historical Medications * This list may reflect changes made after this encounter. aspirin 81 mg tabletIndications: per Ortho instructions - resume when off Eliquis Take 81 mg by mouth daily. gabapentin (NEURONTIN) 100 mg tablet Take 100 mg by mouth nightly. 5 bisoprolol-hydroch lorothiazide (ZIAC) 5-6.25 mg per tablet Take 1 Tablet by mouth daily. 4 gabapentin (NEURONTIN) 100 mg tablet Take 100 mg by mouth 3 times daily. 1 Diclofenac Potassium (ZIPSOR) 25 mg Cap Take 25 mg by mouth daily. 3 tablets 9 added in this encounter Active and Recently Administered Medications Times are shown in EDT. No Frequency Medication Order 10/03/2010 10/04/2010 10/05/2010 ceFAZolin (ANCEF) 1 gram/50 mL IVPB (COMPLETED) 1 dose, Starting on Fri10/05/10 at 0747, Until Fri10/05/10 at 0747, JACQUELINE COOPER: Cabinet Override 0815 (Given - Provid er: Fernanda Pratt RN - Comment: given over 10 minutes [id number] per anesthesia) documented in this encounter Orders Medications Ordered That Binu ht Not Have Been Administered Count Last Ordered Date First Ordered Date famotidine (PEPCID) 20 mg/2 mL injection 1 10/05/2010 fentanyl (SUBLIMAZE) 50 mcg/mL injection 1 10/05/2010 midazolam (VERSED) 1 mg/mL injection 1 09/23 scopolamine (TRANSDERM-SCOP) 1.5 mg 1 10/05 documented in this encounter Care Teams Distribution Accounting Clerk Relationship Specialty Start Date End Date Carlos Manuel Barragan [address] [place] [address] [address] [facility] [place] [address] PCP - General 07/03/10 documented as of this encounter
--- OUTSIDE RECORDS SUMMARY | 2024-05-04 22:57 | XMS_ITS | Encounter Summary ---
Author Organization [facility] Address [facility] [place] [address] Care Team Providers Care Parole Board Member Name Role Phone Carlos Manuel Barragan Primary Care Provider [phone] Encounter Details Date Type Department Care Team (Latest Contact Info) Description 11/13/2010 8:55 PM EDT - 11/13/2010 11:59 PM EDT Hospital Encounter [facility] [place] [id number] Laboratory examination, unspecified Discharge Disposition: Home or Self Care Social [...] or Self Care documented in this encounter Procedure Notes * Unknown, Unknown - 11/13/2010 8:56 PM EDT documented in this encounter Plan of Treatment Upcoming Encounters Date Type Department Care Team (Late st Contact Info) Description 05/24/2024 10:30 AM EST Office Visit [facility] [place] [address] [place] [address] Nikolas Jha DPM [address] [place] [address] documented as of this encounter Procedures Procedure Name Priority Date/Time Associated Diagnosis Comments WOUND CULTURE (STAIN INCLUDED) Routine 11/13/2010 9:07 PM EDT Laboratory examination, unspecified documented in this encounter Results * WOUND CULTURE (11/13/2010 9:07 PM EDT) Final Moderate growth of Coagulase negative staphylococci No further workup 11/17/2010 10:24:19 AM [facility] GS No slide sent/smear made after culture inoculated Rare WBC's No organisms seen [facility] Wound TOE STRUCTURE / Unknown 11/13/2010 9:07 PM EDT 11/13/2010 9:17 PM EDT Narrative [facility] - 11/14/2010 1:51 PM EDT LEFT 3RD TOE us Nikolas Jha DPM MICROBIOLOGY - GENERAL SH[facility] WOMACK Final Result [facility] [address] [place] [address] documented in this encounter Visit Diagnoses Diagnosis Laboratory examination, unspecified documented in this encounter Care Teams Parole Board Member Relationship Specialty Start Date End Date Carlos Manuel Barragan [address] [facility] [address] [place] [id number] PCP - General 07/03/10 documented as of this encounter
--- OUTSIDE RECORDS SUMMARY | 2024-05-04 22:57 | XMS_ITS | Encounter Summary ---
Author Organization [place] [address] Care Team Providers Care Tumbler Drier Operator Name Role Phone Unavailable Primary Care Provider Unavailabl e Encounter Details Date Type Department Care Team (Late st Contact Info) Description 08/18/2007 10:15 AM EDT - 08/18/2007 12:50 PM EDT Hospital Encounter HST Brian Sorensen MD [address] [address] Social History Tobacco Use Types Packs/Day Years Used Date Smoking Tobacco: Never Assessed Comments Unknown Sex and Gender Information Value Date Recorded Sex Assigned at Not on file Legal Sex Female 10:36 AM EDT Gender Identity Not on file Sexual Orientation Not on file documented as of this encounter H&P Notes * Unknown, U - 01/03/2010 3:34 PM EDT documented in this encounter Procedure Notes * Unknown, U - 01/03/2010 3:08 PM EDTAssociated Order(s): SCANNED OR REPORT documented in this encounter Plan of Treatment Upcoming Encounters Date Type Department Care Team (Late st Contact Info) Description 05/24/2024 10:30 AM EST Office Visit [facility] [address] [place] [address] Nikolas Jha, DPMitzi [address] [facility] [address] [place] [address] documented as of this encounter Procedures Procedure Name Priority Date/Time Associated Diagnosis Comments SCANNED OR REPORT 01/03/2010 12: 00 AM EDT documented in this encounter Results * SCANNED OR REPORT (01/03/2010 12:00 AM EDT) Narrative 01/03/2010 3:22 PM EDT Ordered by an unspecified provider. Transcriptions Unknown, U - 01/03/2010 3:08 PM EDT us U Unknown PROCEDURE/MINOR SURGICAL ORDERAB LES Final Result documented in this encounter Visit Diagnoses Not on filedocumented in this encounter
--- OUTSIDE RECORDS SUMMARY | 2024-05-04 22:57 | XMS_ITS | Encounter Summary ---
Author Organization [facility] Address [address] [place] [address] Phone Care Team Providers Care Automotive Specialty Technician Name Role Phone Bassem Barragan Primary Care Provider [phone] Reason for Visit * Reason Onset Date Comments Appointment Scheduled 07/02/2010 Encounter Details Date Type Department Care Team (Late st Contact Info) Description 07/02/2010 Telephone [facility] Physical Medicine [address] [place] [address] Adrian Lazcano MD [address] [place], [place] [id number] Social History Tobacco Use Types Packs/Day Years Used Date Smoking Tobacco: Never Assessed Comments Unknown Sex and Gender Information Value Date Recorded Sex Assigned at Not on file Legal Sex Female 5:01 PM EDT Gender Identity Not on file Sexual Orientation Not on file documented as of this encounter Miscellaneous Notes * Telephone Encounter - Alessandra Humphries - 07/02/2010 9:02 AM EST Schedule patient EMG appt for next available at [place] office on 07-19-10 Patient can be reached at [phone] if you have any questions or comments documented in this encounter Plan of Treatment Not on file documented as of this encounter Visit Diagnoses Not on filedocumented in this encounter Care Teams Automotive Specialty Technician Relationship Specialty Start Date End Date Bassem Barragan [address] [place] [address] PCP - General 06/29/10 documented as of this encounter
--- OUTSIDE RECORDS SUMMARY | 2024-05-04 22:57 | XMS_ITS | Encounter Summary ---
Author Organization [place] [address] Care Team Providers Care Forensic Artist Name Role Phone Unavailable Primary Care Provider Unavailabl e Encounter Details Date Type Department Care Team (Late st Contact Info) Description 12/15/2000 6:08 AM EDT - 12/15/2000 11:59 PM EDT Hospital Encounter [facility] RADIOLOGY EDG Katarina Tan MD [address] [place] [address] [phone] (Fax) Social History Tobacco Use Types Packs/Day [...] 10:30 AM EST Office Visit [facility] [place] [address] [place] [address] Nikolas Jha DPM [address] [place] [address] documented as of this encounter Visit Diagnoses Not on filedocumented in this encounter
--- OUTSIDE RECORDS SUMMARY | 2024-05-04 22:57 | XMS_ITS | Encounter Summary ---
Author Organization Healthcare Address [address] [place] [address] Care Team Providers Care Iron Miner Name Role Phone Pcp, No Primary Care Provider Unavailabl e Encounter Details Date Type Department Care Team (Latest Contact Info) Description 11/25/2023 Ancillary Procedure [address] [place] [address] Disorder of heart muscle (CMS/HCC) Social History Tobacco Use Types Packs/Day Years Used Date Smoking Tobacco: Never Assessed Comments Unknown Sex and Gender Information Value Date Recorded Sex Assigned at Not on file Legal Sex Female 6:56 PM EDT Gender Identity Not on file Sexual Orientation Not on file documented as of this encounter Plan of Treatment Not on file documented as of this encounter Procedures Procedure Name Priority Date/Time Associated Diagnosis Comments MR CARDIAC MORPHOLOGY AND FUNCTION W AND WO IV CONTRAST Routine 11/25/2023 12:00 AM EDT Disorder of heart muscle (CMS/HCC) documented in this encounter Results * MR Cardiac Morphology and Function w and wo IV Contrast (11/25/2023 12:00 AM EDT) Anatomical Region Laterality Modality Heart Magnetic Resonan ce Impressions 11/26/2023 9:58 AM EDT 1. Normal sized left ventricle with normal global systolic function (EF 69%). 2. No CMR evidence for LV scar (fibrosis or infarction).. Normal T2 mapping as well as [place] T1 mapping and ECV is not suggestive of acute inflammatory or infiltrative cardiomyopathy. 3. Normal sized right ventricle with normal global systolic function (EF 65%). 4. No significant valvular abnormalities. 5. Normal, no pericardial effusion. Prominent epicardial fat CRITICAL RESULT: No. COMMUNICATION: Per this written report. Drafted by Shay Calderon MD on 11/26/2023 9:27 AM Final report signed by Shay Calderon MD on 11/26/2023 9:58 AM Narrative 11/26/2023 9:58 AM EDT CLINICAL INFORMATION Indication: LV hypertrophy Age: 73 years old Heart rate: 56 beats/min Body Surface Area (BSA): 2.07 m2 COMPARISON: None. TECHNIQUE: Images were acquired at [facility] in [place], and interpreted at [facility]. Cardiac MRI with and without contrast was performed on 1.5T Siemens Magnetom Krystina MRI scanner. Imaging sequences included black blood axial stack with HASTE, cine with SSFP, [place] T1 and T2, and late gadolinium enhancement. Gadobenate 0.15mmol/kg was administered intravenously via a peripheral IV without any adverse effects at a rate of 2mL/sec. Patient tolerated the procedure well. Study Quality: Good. Artifacts: Non-limiting mild breathing motion artifacts. FINDINGS: Measurements (normal values): (reference: Viri Salgado, et al. J Cardiovasc Magn Reson. 2020;22:87.) Left Ventricular Measurements: LVEF: 69 % (52 - 79) LVEDV: 106 ml (70 - 155) LVEDVI: 51 ml/m2 (45 - 93) LVESV: 32 ml (15 - 64) LVESVI: 16 ml/m2 (10 - 38) LV Mass (measured at end-diastole excluding papillary muscles): 95 gm (43 - 103) LV Mass Index: 46 gm/m2 (30 - 59) Right Ventricular Measurements: RVEF: 65 % (52 - 80) RVEDV: 94 ml (79 - 175) RVEDVI: 46 ml/m2 (51 - 97) RVESV: 33 ml (13 - 75) RVESVI: 16 ml/m2 (9 - 42) Left Atrial Volume Index: 26 mL/m2 ??(17 - 61) Aortic Root at the Sinuses of Valsalva: 32 mm Mid-Ascending Aorta: 32 mm Descending Aorta: 21 mm --- Tissue Characterization --- T1 Mapping: Myocardial [place] T1: 1039ms Blood pool [place] T1: 1702ms T2 Mapping: Septum: 44-50ms with no significant regional variability, which is normal (reference on 1.5T MRI is ~45-60ms) Qualitative Measures: ?? LV Cavity Size: Normal LV Hypertrophy: None LV Global Function: Normal RV Cavity Size: Normal RV Hypertrophy: None RV Function: Normal Left Atrial Size: Normal Right Atrial Size: Normal Segmental Function (16 segment model): Basal LV: Normal. Mid LV: Normal. Distal LV: Normal. Regional Wall Motion Score Index (Score/segments) = 1.0 (1.0 = normal; 1.0-1.5 = mild; 1.6-2.0 = moderate; >2.0 = severe) Valves: Aortic Valve: normal appearing with no significant stenosis or regurgitation Mitral Valve: normal appearing with no prolapse or cleft, and no significant stenosis or regurgitation Tricuspid Valve: normal appearing with no significant stenosis or regurgitation Pulmonary Valve: not visualized. Aorta: Right-sided arch, visualized portion is normal in size without aneurysmal changes Pericardium: Normal, no pericardial effusion. Prominent epicardial fat Other: Left breast implant Late Gadolinium Enhancement (viability imaging,17 segment model): Basal LV: No late gadolinium enhancement. Mid LV: No late gadolinium enhancement. Distal LV: No late gadolinium enhancement. Apical Cap: No late gadolinium enhancement. (Note: Transmural extent of infarct is a marker of viable myocardium: <25% is viable, 25-50% is mixed; likely viable, 50-75% is mixed; likely non-viable, >75% is non-viable) Procedure Note Shay Calderon MD - 11/26/2023 CLINICAL INFORMATION Indication: LV hypertrophy Age: 73 years old Heart rate: 56 beats/min Body Surface Area (BSA): 2.07 m2 COMPARISON: None. TECHNIQUE: Images were acquired at [facility] in [place], andinterpreted at [facility]. Cardiac MRI with and withoutcontrast was performed on 1.5T Siemens Magnetom Krystina MRI scanner. Imagingsequences included black blood axial stack with HASTE, cine with SSFP,[place] T1 and T2, and late gadolinium enhancement. Gadobenate 0.15mmol/kgwas administered intravenously via a peripheral IV without any adverseeffects at a rate of 2mL/sec. Patient tolerated the procedure well. Study Quality: Good. Artifacts: Non-limiting mild breathing motion artifacts. FINDINGS: Measurements (normal values): (reference: Viri Salgado, et al. J Cardiovasc Magn Reson. 2020;22:87.) Left Ventricular Measurements: LVEF: 69 % (52 - 79) LVEDV: 106 ml (70 - 155) LVEDVI: 51 ml/m2 (45 - 93) LVESV: 32 ml (15 - 64) LVESVI: 16 ml/m2 (10 - 38) LV Mass (measured at end-diastole excluding papillary muscles): 95 gm (43- 103) LV Mass Index: 46 gm/m2 (30 - 59) Right Ventricular Measurements: RVEF: 65 % (52 - 80) RVEDV: 94 ml (79 - 175) RVEDVI: 46 ml/m2 (51 - 97) RVESV: 33 ml (13 - 75) RVESVI: 16 ml/m2 (9 - 42) Left Atrial Volume Index: 26 mL/m2 (17 - 61) Aortic Root at the Sinuses of Valsalva: 32 mm Mid-Ascending Aorta: 32 mm Descending Aorta: 21 mm --- Tissue Characterization --- T1 Mapping: Myocardial [place] T1: 1039ms Blood pool [place] T1: 1702ms T2 Mapping: Septum: 44-50ms with no significant regional variability, which is normal(reference on 1.5T MRI is ~45-60ms) Qualitative Measures: LV Cavity Size: Normal LV Hypertrophy: None LV Global Function: Normal RV Cavity Size: Normal RV Hypertrophy: None RV Function: Normal Left Atrial Size: Normal Right Atrial Size: Normal Segmental Function (16 segment model): Basal LV: Normal. Mid LV: Normal. Distal LV: Normal. Regional Wall Motion Score Index (Score/segments) = 1.0 (1.0 = normal; 1.0-1.5 = mild; 1.6-2.0 = moderate; >2.0 = severe) Valves: Aortic Valve: normal appearing with no significant stenosis orregurgitation Mitral Valve: normal appearing with no prolapse or cleft, and nosignificant stenosis or regurgitation Tricuspid Valve: normal appearing with no significant stenosis orregurgitation Pulmonary Valve: not visualized. Aorta: Right-sided arch, visualized portion is normal in size withoutaneurysmal changes Pericardium: Normal, no pericardial effusion. Prominent epicardial fat Other: Left breast implant Late Gadolinium Enhancement (viability imaging,17 segment model): Basal LV: No late gadolinium enhancement. Mid LV: No late gadolinium enhancement. Distal LV: No late gadolinium enhancement. Apical Cap: No late gadolinium enhancement. (Note: Transmural extent of infarct is a marker of viable myocardium: <25%is viable, 25-50% is mixed; likely viable, 50-75% is mixed; likelynon-viable, >75% is non-viable) IMPRESSION: 1. Normal sized left ventricle with normal global systolic function (EF69%). 2. No CMR evidence for LV scar (fibrosis or infarction).. Normal Q1krqfnxl as well as [place] T1 mapping and ECV is not suggestive of acuteinflammatory or infiltrative cardiomyopathy. 3. Normal sized right ventricle with normal global systolic function (EF65%). 4. No significant valvular abnormalities. 5. Normal, no pericardial effusion. Prominent epicardial fat CRITICAL RESULT: No. COMMUNICATION: Per this written report. 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
--- OUTSIDE RECORDS SUMMARY | 2024-05-04 22:57 | XMS_ITS | Encounter Summary ---
Author Organization [facility] Address [address] [place] [address] Phone Care Team Providers Care Engineering Leader Name Role Phone Bassem Barragan Primary Care Provider [phone] Encounter Details Date Type Department Care Team (Late st Contact Info) Description 07/06/2010 1:30 PM EST Office Visit [facility] Physical Medicine [address] [place] [address] Adrian Lazcano MD [address] [place], [place] [id number] LUMBOSACRAL NEURITIS NOS (Primary Dx) Social History Tobacco Use Types [...] Procedure Name Priority Date/Time Associated Diagnosis Comments NERVE CONDUCT TEST,SENS/MIXED Routine 07/09/2010 9:54 AM EST Lumbosacral Neuritis Nos MOTOR NERVE CONDUCT TEST, W F-WAVE Routine 07/09/2010 9:54 AM EST Lumbosacral Neuritis Nos EMG, 1 LIMB Routine 07/09/2010 Lumbosacral Neuritis Nos documented in this encounter Results * EMG, 1 LIMB (07/09/2010) Adrian Lazcano MD PROCEDURES Final Result documented in this encounter Visit Diagnoses Diagnosis Thoracic or lumbosacral neuritis or radiculitis, unspecified- Primary documented in this encounter Care Teams Engineering Leader Relationship Specialty Start Date End Date Bassem Barragan [address] [place] [address] PCP - General 06/29/10 documented as of this encounter
--- OUTSIDE RECORDS SUMMARY | 2024-05-04 22:57 | XMS_ITS | Encounter Summary ---
Author Organization [place] [address] Care Team Providers Care Pump Stitcher Name Role Phone Carlos Manuel Barragan Primary Care Provider [phone] Reason for Visit * Auth/Cert/Inpt - Closed Specialty Diagnoses / Procedures Referred By Heather t Referred To Contact Diagnoses HAMMERTOE NEUROMA CONTRACTED JOINT LEFT Procedures HAMMERTOE LEFT 2ND 3RD TOES EXCISION NEUROMA LEFT 3RD INTERMETATARSAL SPACE FLEXOR TENOTOMY LEFT 4TH TOE EDG [address] [place] [id number] Phone: tel: fax: Referral ID Status Reason Start Date Expiration Date Visits Re quested Visits Authorized [id number] Closed 09/28/2010 03/27/2011 1 1 Encounter Details Date Type Department Care Team (Late st Contact Info) Description 10/05/2010 8:00 AM EDT - 10/05/2010 9:20 AM EDT Surgery EDG [address] [place] [address] Nikolas Jha DPM [address] [address] HAMMER TOE REPAIR Surgery Details Date/Time Status Location OR Service Patient Class Case Class Case Type Trauma Case? 10/05/2010 8:00 AM Posted EDG [facility] 03 Podiatry Same Day Surgery N/A Panel 1 Procedure LRB Anes Op Region Wound Class Comments HAMMER TOE REPAIR Left Monitored Anesthesia Care Clean HAMMER TOE REPAIR LEFT 2ND & 3RD TOES EXCISION NEUROMA LEFT 3RD INTERMETATARSAL SPACE FLEXOR TENOTOMY LEFT 4TH TOE TOMLINSON'S NEUROMA EXCISION Left Monitored Anesthesia Care Clean Surgeon Surgeon Role Service Panel Nikolas Jha DPM Primary Podiatry 1 Special Needs NIECY [facility] [id number] 9157/ELISHA documented in this encounter Social History Tobacco [...] Sign Reading Time Taken Comments Blood Pressure 138/88 10/05/2010 7:32 AM EDT Pulse 54 10/05/2010 7:32 AM EDT Temperature 35.9 ??C (96.7 ??F) 10/05/2010 7:32 AM ED T Respiratory Rate 18 10/05/2010 7:32 AM EDT Oxygen Saturation 97% 10/05/2010 7:32 AM EDT Inhaled Oxygen Concentration - - [...] 10/05/2010 7:03 AM EDT * Unknown, Unknown 10/05/2010 7:03 AM EDT documented in this encounter H&P Notes * Unknown, Unknown - 10/09/2010 10:21 AM EDT documented in this encounter Procedure Notes * Unknown, - 10/17/2010 11:22 AM EDT * Unknown, Unknown - 10/09/2010 10:21 AM EDT * Unknown, Unknown - 10/09/2010 10:21 AM EDTAssociated Order(s): SCANNED ANESTHESIA FORMS * Unknown, - 10/08/2010 8:59 PM EDTAssociated Order(s): SCANNED OR REPORT documented in this encounter Nursing Notes * Unknown, Unknown - 10/09/2010 10:21 AM EDT * Unknown, Unknown 10/09/2010 10:21 AM EDT documented in this encounter Plan of Treatment Upcoming Encounters Date Type Department Care Team (Late st Contact Info) Description 05/24/2024 10:30 AM EST Office Visit [facility] [place] [address] [facility] [address] [place] [address] Nikolas Jha DPM [address] [place] [address] documented as of this encounter Procedures Procedure Name Priority Date/Time Associated Diagnosis Comments SCANNED ANESTHESIA FORMS 10/09/2010 12:00 AM EDT SCANNED OR REPORT 10/08/2010 12: 00 AM EDT PATHOLOGY TISSUE REPORT Routine 10/05/2010 2:59 PM EDT TOMLINSON'S NEUROMA EXCISION 10/05/2010 8:17 AM EDT same as preop Special Needs NIECY CPT 50964 [id number] 9157/ELISHA HAMMER TOE REPAIR 10/05/2010 8:1 7 AM EDT same as preop Special Needs NIECY CPT 38411 [id number] 9157/ELISHA documented in this encounter Results * [...] Number ?Collected Date/Time ? Received Date/Time ? [id number] ? 10/05/10 14:59 EDT ?10/05/10 14:59 EDT [...] and the findings corroborate the ? diagnosis. [facility] 10/05/2010 2:59 PM EDT us Nikolas Jha DPMitzi PATHOLOGY ORDERABLES Final Result [facility] [address] [place] [address] documented in this encounter Visit Diagnoses Not [...] RN - Comment: given over 10 minutes [id number] per anesthesia) documented in this encounter Orders Medications Ordered That Binu ht Not Have Been Administered Count Last Ordered Date First Ordered Date famotidine (PEPCID) 20 mg/2 mL injection 1 10/05/2010 fentanyl (SUBLIMAZE) 50 mcg/mL injection 1 10/05/2010 midazolam (VERSED) 1 mg/mL injection 1 09/23 scopolamine (TRANSDERM-SCOP) 1.5 mg 1 10/05 documented in this encounter Care Teams Pump Stitcher Relationship Specialty Start Date End Date Carlos Manuel Barragan [address] [place] [address] [address] [place] [address] PCP - General 07/03/10 documented as of this encounter
--- OUTSIDE RECORDS SUMMARY | 2024-05-04 22:57 | XMS_ITS | Encounter Summary ---
Author Organization [place] [address] Care Team Providers Care Concrete Pump Operator Helper Name Role Phone Carlos Manuel Barragan Primary Care Provider [phone] Encounter Details Date Type Department Care Team (Latest Contact Info) Description 09/04/2012 5:42 AM EDT - 09/04/2012 11:59 PM EDT Hospital Encounter Mobile Mammography Other Location View online schedule for mobile van location [phone] Raymond Noble MD Other screening mammogram Discharge [...] AM EST Office Visit [facility] [address] [place] [address] Abhijeet Nikolas Neil, DPMitzi [address] [place] [address] documented as of this encounter Procedures Procedure Name Priority Date/Time Associated Diagnosis Comments MM MOBILE MAMMO DIGITAL SCREEN W CAD ZEN Routine 09/04/2012 12:25 PM EDT Other screening mammogram documented in this encounter Results * MM MOBILE MAMMO DIGITAL SCREEN W CAD ZEN (09/04/2012 12:25 PM EDT) Anatomical Region Laterality Modality Breast Mammography 09/07/2012 9:04 AM EDT Impressions 09/08/2012 7:31 AM EDT : Negative ??([id number]) ~ RECOMMENDATION: Routine screening mammogram in 1 [...] reviewed by a Radiologist and CAD. Narrative 09/08/2012 7:31 AM EDT Procedure:MM MOBILE MAMMO DIGITAL SCREEN W CAD ZEN ~ Reason for exam: screening ??(asymptomatic). ~ MM MOBILE MAMMO DIGITAL SCREEN W CAD ZEN Bilateral CC and MLO view(s) were taken. Prior study comparison: August 20, 2011, bilateral MM MAMMO DIG SCREEN CAD BILAT, performed at [facility]. The breast tissue is heterogeneously dense. ??This may lower the sensitivity of mammography. ??No suspicious calcifications. ??Compared to prior studies the most recent being 08/20/11. ~ Procedure Note Bryan Chavez DO - 09/08/2012 Procedure:MM MOBILE MAMMO DIGITAL SCREEN W CAD ZEN ~ Reason for exam: screening (asymptomatic). ~ MM MOBILE MAMMO DIGITAL SCREEN W CAD ZEN Bilateral CC and MLO view(s) were taken. Prior study comparison: August 20, 2011, bilateral MM MAMMO DIG SCREENCAD BILAT, performed at [facility]. The breast tissue is heterogeneously dense. This may lower thesensitivity of mammography. No suspicious calcifications. Compared to priorstudies the most recent being 08/20/11. ~ IMPRESSION: Negative ([id number]) ~ RECOMMENDATION: Routine screening mammogram in 1 [...] was reviewed by a Radiologist and CAD. us Raymond Noble MD IMG MAMMOGRAPHY ORDERABLES Final Result documented in this encounter Visit Diagnoses Diagnosis Other screening mammogram documented in this encounter Care Teams Concrete Pump Operator Helper Relationship Specialty Start Date End Date Carlos Manuel Barragan [address] [place] [address] [address] [place] [address] PCP - General 07/03/10 documented as of this encounter
--- OUTSIDE RECORDS SUMMARY | 2024-05-04 22:57 | XMS_ITS | Encounter Summary ---
Author Organization [place] [address] Care Team Providers Care Automatic Fabric Cutter Name Role Phone Unavailable Primary Care Provider Unavailabl e Encounter Details Date Type Department Care Team (Late st Contact Info) Description 01/27/2002 12:12 AM EDT - 01/27/2002 11:59 PM EDT Hospital Encounter [facility] Katarina Tan MD [address] [place] [address] [phone] (Fax) Social History Tobacco Use Types Packs/Day [...] 10:30 AM EST Office Visit [facility] [place] [address] [place] [address] Nikolas Jha DPM [address] [place] [address] documented as of this encounter Visit Diagnoses Not on filedocumented in this encounter
--- OUTSIDE RECORDS SUMMARY | 2024-05-04 22:57 | XMS_ITS | Encounter Summary ---
Author Organization [place] [address] Care Team Providers Care Vision Specialist Name Role Phone Unavailable Primary Care Provider Unavailabl e Encounter Details Date Type Department Care Team (Late st Contact Info) Description 03/29/2005 12:01 AM EST - 03/29/2005 11:59 PM EST Hospital Encounter [facility] Katarina Tan MD [address] [place] [address] [phone] (Fax) Social History Tobacco Use Types Packs/Day [...] 10:30 AM EST Office Visit [facility] [place] [address] [place] [address] Road [address] [place] [address] Nikolas Jha DPM [address] [place] [address] Scheduled Orders Name Type Priority Associated Diagnoses Orde r Schedule MM MAMMO, DIAG UNILATERAL Imaging Routine Once for 1 Occur renkwasi starting 08/01/2009 until 08/01/2009, 1 completed documented as of this encounter Procedures Procedure Name Priority Date/Time Associated Diagnosis Comments WW MAMMODALILAG UNILATERAL Routine 03/29/2005 8:05 AM EST documented in this encounter Results * MM MAMMO DIAG UNILATERAL (03/29/2005 8:05 AM EST) Anatomical Region Laterality Modality Other 03/29/2005 8:05 AM EST Narrative 03/31/2005 6:52 PM EST Procedure-WW MAMMO, DIAG UNILATERAL Unilateral Diagnostic Study CC and MLO view(s) were taken of the right breast. The breast tissue is heterogeneously dense. ??This may lower the sensitivity of mammography. ??No suspicious findings ??persist on additional views consistent with bengin overlap shadow. IMPRESSION- No radiographic evidence of malignancy ([id number]) RECOMMENDATION- Routine screening mammogram in 1 year. * The patient with a palpable abnormality, unexplained by breast imaging, should be managed on clinical basis by the attending physician. * Breast imaging has a false negative rate of 15%. * The patient was notified by mail of the results of this examination. ? Customs Agent- SHERINE GAR ? Reading Radiologist- MECHE GIRALDO ? Released Date Time- 03/31/051851 Procedure Note Meche Giraldo S - 08/01/2009 Procedure-WW MAMMO, DIAG UNILATERAL Unilateral Diagnostic Study CC and MLO view(s) were taken of the right breast. The breast tissue is heterogeneously dense. This may lower the sensitivity of mammography. No suspicious findings persist on additional views consistent with bengin overlap shadow. IMPRESSION- No radiographic evidence of malignancy ([id number]) RECOMMENDATION- Routine screening mammogram in 1 year. * The patient with a palpable abnormality, unexplained by breast imaging, should be managed on clinical basis by the attending physician. * Breast imaging has a false negative rate of 15%. * The patient was notified by mail of the results of this examination. Customs Agent- SHERINE GAR Reading Radiologist- MECHE GIRALDO MD Released Date Time- 03/31/05 8586 us Katarina Tan MD [facility] Final Result documented in this encounter Visit Diagnoses Not on filedocumented in this encounter
--- OUTSIDE RECORDS SUMMARY | 2024-05-04 22:57 | XMS_ITS | Encounter Summary ---
Author Organization [place] [address] Care Team Providers Care Assistant Professor Of Theater Name Role Phone Unavailable Primary Care Provider Unavailabl e Encounter Details Date Type Department Care Team (Late st Contact Info) Description 03/20/2005 12:01 AM EDT - 03/20/2005 11:59 PM EDT Hospital Encounter [facility] Katarina Tan MD [address] [place] [address] [phone] (Fax) Social History Tobacco Use Types Packs/Day [...] 10:30 AM EST Office Visit [facility] [place] [address] [place] [address] [address] [place] [phone] Nikolas Jha DPM [address] [place] [phone] Scheduled Orders Name Type Priority Associated Diagnoses Orde r Schedule MM MAMMO SCREEN W/CAD II PANEL Imaging Routine Once for 1 Occur dayami starting 08/01/2009 until 08/01/2009, 1 completed documented as of this encounter Procedures Procedure Name Priority Date/Time Associated Diagnosis Comments WW MAMMO SCREEN W/CAD II PANEL Routine 03/20/2005 4:15 PM EDT documented in this encounter Results * MM MAMMO SCREEN W/CAD II PANEL (03/20/2005 4:15 PM EDT) Anatomical Region Laterality Modality Other 03/20/2005 4:15 PM EDT Narrative 03/21/2005 11:09 AM EDT Procedure-WW MAMMO SCREEN W/CAD II PANEL Reason for exam- screening. Screening Mammogram With CAD Bilateral CC and MLO view(s) were taken. Prior study comparison- March 13, 2004, bilateral mobile screening mammogram. ??November 30, 1999, bilateral screening mammogram. The breast tissue is heterogeneously dense. ??This may lower the sensitivity of mammography. ??There is a questionable 1.5 cm oval density with circumscribed margins in the right breast mid inferior position only seen on MLO view. ??Mammogram of the contralateral breast reveals no evidence of malignancy. ??New finding since 03/13/04. IMPRESSION- Incomplete-need additional imaging evaluation ([id number]) RECOMMENDATION- Special view mammogram of the right breast. * The patient with a palpable abnormality, unexplained by breast imaging, should be managed on clinical basis by the attending physician. * Breast imaging has a false negative rate of 15%. * The patient was notified by mail of the results of this examination. The mammogram was reviewed by a Radiologist and CAD. ? Miller Apprentice- KELLEY DIAS ? Reading Radiologist- ARCADIO TRAN ??MD ? Released Date Time- 03/21/05 1109 Procedure Note Arcadio Tran - 08/01/2009 Procedure-WW MAMMO SCREEN W/CAD II PANEL Reason for exam- screening. Screening Mammogram With CAD Bilateral CC and MLO view(s) were taken. Prior study comparison- March 13, 2004, bilateral mobile screening mammogram. November 30, 1999, bilateral screening mammogram. The breast tissue is heterogeneously dense. This may lower the sensitivity of mammography. There is a questionable 1.5 cm oval density with circumscribed margins in the right breast mid inferior position only seen on MLO view. Mammogram of the contralateral breast reveals no evidence of malignancy. New finding since 03/13/04. IMPRESSION- Incomplete-need additional imaging evaluation ([id number]-7) RECOMMENDATION- Special view mammogram of the right breast. * The patient with a palpable abnormality, unexplained by breast imaging, should be managed on clinical basis by the attending physician. * Breast imaging has a false negative rate of 15%. * The patient was notified by mail of the results of this examination. The mammogram was reviewed by a Radiologist and CAD. Miller Apprentice- KELLEY Toth Radiologist- ACRADIO TRAN MD Released Date Time- 03/21/05 1109 us Katarina Tan MD [facility] Final Result documented in this encounter Visit Diagnoses Not on filedocumented in this encounter
--- OUTSIDE RECORDS SUMMARY | 2024-05-04 22:57 | XMS_ITS | Encounter Summary ---
Author Organization [place] [address] Care Team Providers Care Corporate Security Officer Name Role Phone Carlos Manuel Barragan Primary Care Provider [phone] Encounter Details Date Type Department Care Team (Latest Contact Info) Description 01/05/2013 7:36 PM EDT - 01/05/2013 11:59 PM EDT Hospital Encounter [facility] [place] [phone] Routine gynecological examination Discharge Disposition: Home or [...] Notes * Miscellaneous - Unknown, Unknown - 01/05/2013 7:37 PM EDT documented in this encounter Plan of Treatment Upcoming Encounters Date Type Department Care Team (Late st Contact Info) Description 05/24/2024 10:30 AM EST Office Visit [facility] [place] [address] [place] [address] Abhijeet Nikolas Trejo, DPM [address] [place] [address] documented as of this encounter Procedures Procedure Name Priority Date/Time Associated Diagnosis Comments STREET CLEANING EQUIPMENT OPERATOR CYTOLOGY REPORT Routine 01/05/2013 1 2:00 AM EDT documented in this encounter Results * STREET CLEANING EQUIPMENT OPERATOR CYTOLOGY REPORT (01/05/2013 12:00 AM EDT) Gear Cutter Cytology Report ? PATIENT NAME:DIAMANTE EDOUARD ? Gear Cutter Cytology Report ? Accession Number ?Collected Date/Time ? Received Date/Time ? [id number] ? 01/05/13 00:00 EDT ?01/05/13 23:01 EDT ? GY Specimen Source ? Specimen Vag/Cerv/Endocx?: Cerv/Endocerv ? Statement of Adequacy ? Satisfactory for Evaluation. ??Transformation Zone Present. ? Diagnosis ? NEGATIVE FOR INTRAEPITHELIAL LESION OR MALIGNANCY. ? Comment ? The Pap Smear is a screening test that aids in the detection of cervical ? cancer and cancer precursors. ??Both false positive and false negative ? results can occur. ??The test should be used at regular intervals, and ? positive results should be confirmed before definitive therapy. ? Processed using the Prelert automated cytology screening device ? (Hologic Cee). ? Project Development Engineer: TS ?01/07/2013 ? Completed by: ??Nicky Shay CT ?(Electronically signed by) ?01/07/2013 ?P Laboratory [facility] 01/05/2013 us Raymond Noble MD PATHOLOGY ORDERABLES Final Resul t [facility] [address] [place] [address] documented in this encounter Visit Diagnoses Diagnosis Routine gynecological examination documented in this encounter Orders Lab Orders Without Results Count Last Ordered D ate First Ordered Date STREET CLEANING EQUIPMENT OPERATOR CYTOLOGY REQUEST (PAP ONLY) 1 3 documented in this encounter Care Teams Corporate Security Officer Relationship Specialty Start Date End Date Carlos Manuel Barragan [address] [place] [address] PCP - General 07/03/10 documented as of this encounter
--- OUTSIDE RECORDS SUMMARY | 2024-05-04 22:57 | XMS_ITS | Encounter Summary ---
Author Organization [place] [address] Care Team Providers Care Senior Financial Name Role Phone Unavailable Primary Care Provider Unavailabl e Encounter Details Date Type Department Care Team (Late st Contact Info) Description 07/07/2007 12:37 AM EST - 07/10/2007 11:11 PM [facility] Hospital Encounter [facility] 7D Brian Newman MD [address] [place] [address] Social History Tobacco Use Types Packs/Day Years Used Date Smoking Tobacco: Never Assessed Comments Unknown Sex and Gender Information Value Date Recorded Sex Assigned at Not on file Legal Sex Female 10:36 AM EDT Gender Identity Not on file Sexual Orientation Not on file documented as of this encounter Discharge Summaries * Unknown, U - 01/03/2010 5:34 PM EDT documented in this encounter H&P Notes * Unknown, 01/03/2010 6:08 PM EDT documented in this encounter Procedure Notes * Unknown, 01/03/2010 6:34 PM EDTAssociated Order(s): SCANNED OR REPORT * Unknown, 01/03/2010 5:41 PM EDTAssociated Order(s): SCANNED OR REPORT documented in this encounter Plan of Treatment Upcoming Encounters Date Type Department Care Team (Late st Contact Info) Description 05/24/2024 10:30 AM EST Office Visit [facility] [place] [address] [facility] [address] [place] [address] Nikolas Jha, DPM [address] [place] [address] Scheduled Orders Name Type Priority Associated Diagnoses Orde r Schedule XR KNEE (2 VIEWS) Imaging Routine Once for 1 Occurrences starting 08/03/2009 until 08/03/2009, 1 completed EK EKG REG Imaging Cardiology Routine Once f or 1 Occurrences starting 08/03/2009 until 08/03/2009, 1 completed XR KNEE (2 VIEWS) Imaging Routine Once for 1 Occurrences starting 08/03/2009 until 08/03/2009, 1 completed XR KNEE (2 VIEWS) Imaging Routine Once for 1 Occurrences starting 08/03/2009 until 08/03/2009, 1 completed documented as of this encounter Procedures Procedure Name Priority Date/Time Associated Diagnosis Comments SCANNED OR REPORT 01/03/2010 12: 00 AM EDT SCANNED OR REPORT 01/03/2010 12: 00 AM EDT XX KNEE (2 VIEWS) Routine 07/09/2007 11: 01 AM EST XX KNEE (2 VIEWS) Routine 07/09/2007 12: 20 AM EST EK EKG REG Routine 07/01/2007 11:22 AM EST XX KNEE (2 VIEWS) Routine 07/01/2007 10: 43 AM EST documented in this encounter Results * SCANNED OR REPORT (01/03/2010 12:00 AM EDT) Narrative 01/03/2010 6:40 PM EDT Ordered by an unspecified provider. Transcriptions Unknown, U - 01/03/2010 6:34 PM EDT us U Unknown PROCEDURE/MINOR SURGICAL ORDERAB LES Final Result * SCANNED OR REPORT (01/03/2010 12:00 AM EDT) Narrative 01/03/2010 5:55 PM EDT Ordered by an unspecified provider. Transcriptions Unknown, U - 01/03/2010 5:41 PM EDT U Unknown PROCEDURE/MINOR SURGICAL ORDERAB LES Final Result * XR KNEE (2 VIEWS) (07/09/2007 11:01 AM EST) Anatomical Region Laterality Modality Other 07/09/2007 11:0 1 AM EST Narrative 07/09/2007 6:46 PM EST 2 view right knee, 07/09/2007 History- Pain. Impression- ??Status post total knee. Postsurgical changes present. Good anatomic alignment. ? Linotype Machinist Apprentice- JITENDRA PADILLA ? Reading Radiologist- DAMION SEGURA ? Released Date Time- 07/10/07 0537 Procedure Note Damion Segura - 08/03/2009 2 view right knee, 07/09/2007 History- Pain. Impression- Status post total knee. Postsurgical changes present. Good anatomic alignment. Linotype Machinist Apprentice- JITENDRA PADILLA Reading Radiologist- DAMION SEGURA MD Released Date Time- 07/10/07 0537 us Brian [facility] RAD HISTORICAL Fin al Result * XR KNEE (2 VIEWS) (07/09/2007 12:20 AM EST) Anatomical Region Laterality Modality Other 07/09/2007 12:2 0 AM EST Narrative 07/09/2007 12:01 PM EST Right knee 2 views, 07/09/2007. History- Postop. Status post abscess drainage. Findings- There is a right total knee arthroplasty. Components appear well-seated. There is a small amount of air within the joint space, likely postprocedural. ? Linotype Machinist Apprenticenolan GUARDADO ? Reading Radiologist- SUZIE GAR ? Released Date Time- 07/09/07 1223 Procedure Note Suzie Gar - 08/03/2009 Right knee 2 views, 07/09/2007. History- Postop. Status post abscess drainage. Findings- There is a right total knee arthroplasty. Components appear well-seated. There is a small amount of air within the joint space, likely postprocedural. Linotype Machinist Apprentice- BO GUARDADO Reading RadiologistLuis GAR Released Date Time- 07/09/07 1223 Brian [facility] HISTORICAL Fin al Result * EK EKG REG (07/01/2007 11:22 AM EST) Anatomical Region Laterality Modality Other 07/01/2007 11:2 2 AM EST Narrative 07/01/2007 9:19 PM EST Sinus rhythm Inferior T wave changes are nonspecific Low QRS voltages in precordial leads old inf mi is poss. Borderline ECG ? Linotype Machinist Apprentice- LYNDON LUNA ??MD ? Reading Radiologist- LYNDON LUNA ??MD ? Released Date Time- 07/01/072118 Procedure Note Lyndon Luna - 08/03/2009 Sinus rhythm Inferior T wave changes are nonspecific Low QRS voltages in precordial leads old inf mi is poss. Borderline ECG Linotype Machinist Apprentice- LYNDON LUNA MD Reading Radiologist- LYNDON LUNA MD Released Date Time- 07/01/072118 Brian Newman MD [facility] HISTORICAL Fi nal Result * XR KNEE (2 VIEWS) (07/01/2007 10:43 AM EST) Anatomical Region Laterality Modality Other 07/01/2007 10:4 3 AM EST Narrative 07/01/2007 1:00 PM EST RM 5 Right knee, two views, 07/01/07, 1052 hours Clinical history- Knee pain. There is marked narrowing of the medial compartment. This is compatible with significant osteoarthritis. There are tricompartment osteophytes compatible with osteoarthritis. There is no evidence for fracture. Impression- ??Significant findings of osteoarthritis. ? Linotype Machinist Apprentice- DANIA QUIROGA ? Reading Radiologist- SUDHAKAR AHN ??M.D. ? Released Date Time- 07/01/072114 Procedure Note Sesar Ahn - 08/03/2009 RM 5 Right knee, two views, 07/01/07, 1052 hours Clinical history- Knee pain. There is marked narrowing of the medial compartment. This is compatible with significant osteoarthritis. There are tricompartment osteophytes compatible with osteoarthritis. There is no evidence for fracture. Impression- Significant findings of osteoarthritis. Linotype Machinist Apprentice- DANIA QUIROGA Reading Radiologist- SUDHAKAR AHN M.D. Released Date Time- 07/01/072114 Brian Newman MD [facility] DEJAH [facility] al Result documented in this encounter Visit Diagnoses Not on filedocumented in this encounter
== END 2024-05-04 10:50 | disposition home or self-care (01) ==
PROVIDERS: PCP Family Medicine; Visit Provider Nurse Anesthetist, Certified Registered
DX: M51.16 Intervertebral disc disorders with radiculopathy, lumbar region (principal)
CPT/HCPCS: 62323; J1010

== ENCOUNTER 2024-06-04 10:04 | Outpatient (POV) | payer MEDICARE, SELFPAY ==
[2024-06-04 10:36] VITALS: BP 174/68; PULSE 82; RESP 16; O2SAT 95; BMI 29.3
--- NOTE | 2024-06-04 11:06 | EXP.PAIN.SOA ---
[facility] Disclaimer: The information contained in this section may have been updated after the patient was seen, as this information can be updated by other users. Medical History Hypertension Arthritis Hyperlipidemia Surgical History History of bilateral knee replacement Family History Other No significant family history Social History Smoking Status: Never smoker second hand exposure: No alcohol intake: never substance use type: denies use current occupational status: other Travel in the last 8 weeks: None household members: spouse housing: house current occupation: [employer] current occupational exposures/hazards: No caffeine: Yes PM Subjective & Objective Subjective Subjective:: Patient is a pleasant 74-year-old female who presents today for follow-up of her lumbar epidural steroid injection L3-L4 on 05/04/2024. Today she rates her pain a 2 out of 10. She does state that she has had at least 80% improvement and feels like it is still working well. She denies any new trauma or injury. She does state that her diclofenac is still helping and that she does still have 1 additional refill on it and that she is still using her compounded cream. Her Jose Miguel has been reviewed and is appropriate. Review of Systems: General: No recent weight changes, no fever, no sleep disturbances Respiratory: No cough, no shortness of air, no recurring pulmonary infections Cardiovascular/peripheral vascular: No chest pain, no palpitations, no edema, no shortness of breath Gastrointestinal: No new onset incontinence, normal bowel movements reported Genitourinary: No new onset incontinence Musculoskeletal: Low back pain Psychiatric: [Normal mood/affect] Neurological: [Denies weakness in extremities], [denies balance issues] Pain at rest (0-10 scale): 2 Objective Objective:: Physical Exam: General: Alert and oriented x3, no acute distress, pleasant and cooperative Lungs: Respirations even and unlabored, symmetrical chest expansion Eyes: PERRL Musculoskeletal: Flexion and extension of lumbar [spine] somewhat guarded secondary to pain, [antalgic gait noted] Neurological: Speech clear, no gross sensory deficit Has patient had previous pain injection?: Yes Percent improvement in pain since last injection: 80% Conservative treatment options previously tried: Home exercise plan Length of treatment: Longer than 12 weeks Meds Home Medications and Allergies Home Medications ?Medication ?Instructions ?Recorded ?Confirmed ?Type anastrozole 1 mg tablet 1 mg PO DAILY cancer 03/30/19 06/04/24 History aspirin 81 mg tablet,delayed 81 mg PO DAILY Supplement 03/30/19 06/04/24 History release bisoprolol 5 1 each PO DAILY blood pressure 03/30/19 06/04/24 History mg-hydrochlorothiazide 6.25 mg tablet potassium chloride 20 mEq 20 meq PO DAILY Supplement 03/30/19 06/04/24 History tablet,extended release vitamin E 100 unit capsule 100 unit PO DAILY Supplement 03/30/19 06/04/24 History calcium polycarbophil 625 mg 1,250 mg PO DAILY Supplement 04/08/19 06/04/24 History tablet (FiberCon) rosuvastatin 10 mg tablet 10 mg PO DAILY Cholesterol 04/08/19 06/04/24 History metoclopramide HCl 5 mg tablet 5 mg PO ACHS GERD 08/04/20 06/04/24 History gabapentin 300 mg capsule 300 mg PO BID Pain 04/03/21 06/04/24 History oxybutynin chloride 5 mg 5 mg PO DAILY URINATION 04/03/21 06/04/24 History tablet,extended release 24 hr meloxicam 7.5 mg tablet 7.5 mg PO DAILY . #30 tabs 11/28/22 06/04/24 Rx meloxicam 15 mg tablet 15 mg PO DAILY #30 tabs 06/04/23 06/04/24 Rx camphor 3.1 %-methyl salicylate 10 1 patch topical TID 5 days #20 ea 08/18/23 06/04/24 Rx %-menthol 6 % topical patch (Salonpas) cyclobenzaprine 5 mg tablet 5 mg PO HS PRN muscle spasm #30 03/11/24 06/04/24 Rx tabs diclofenac sodium 75 mg 75 mg PO DAILY #30 tabs 03/11/24 06/04/24 Rx tablet,delayed release New Prescriptions to Start Prescriptions: Allergies Allergy/AdvReac Type Severity Reaction Status Date / Time Penicillins Allergy Intermediate Rash Verified 12/23/23 12:16 morphine AdvReac Mild Confusion Verified 12/23/23 12:16 Assessment and Plan *Assessment and plan (1) Lumbar radiculopathy: Status: Acute Category: Medical Code(s): M54.16 - Radiculopathy, lumbar region (2) Degenerative joint disease (DJD) of lumbar spine: Status: Acute Qualifiers: Spinal osteoarthritis complication: with radiculopathy Qualified Code(s): M47.26 - Other spondylosis with radiculopathy, lumbar region Category: Medical Code(s): M47.816 - Spondylosis without myelopathy or radiculopathy, lumbar region Plan Patient has had significant improvement following her lumbar epidural and does not require any additional injection therapy at this time. Patient will return to clinic in 6 weeks for reevaluation of symptoms and plan of care. Patient has been instructed to contact the clinic with any concerns before the next appointment. Dr. Partida has reviewed this note and agrees with this plan of care. This note was dictated using voice recognition software and make contain errors or omissions. All injections are used with Lidocaine, Bupivacaine and Depo Medrol. Occasionally urine drug screen is needed to verify patient's compliance with our office pain contract. This is ordered based off specific treatments related to chronic pain with the potential to abuse certain medications.
== END 2024-06-04 23:59 | disposition home or self-care (01) ==
PROVIDERS: PCP Family Medicine; Visit Provider Nurse Practitioner Family
DX: M47.26 Other spondylosis with radiculopathy, lumbar region (principal); Z96.653 Presence of artificial knee joint, bilateral
CPT/HCPCS: 99212; G0463

== ENCOUNTER 2024-07-19 10:13 | Outpatient (POV) | payer MEDICARE, SELFPAY ==
--- NOTE | 2024-07-19 10:24 | A.OFFVIS_ITS ---
[facility] Disclaimer: The information contained in this section may have been updated after the patient was seen, as this information can be updated by other users. Medical History Hypertension Arthritis Hyperlipidemia Surgical History History of bilateral knee replacement Family History Other No significant family history Social History Smoking Status: Never smoker second hand exposure: No alcohol intake: never substance use type: denies use current occupational status: other Travel in the last 8 weeks: None household members: spouse housing: house current occupation: [employer] current occupational exposures/hazards: No caffeine: Yes PM Subjective & Objective Subjective Subjective:: Patient is a pleasant 74-year-old female who presents today for 6-week follow- up. Patient rates her pain a 4 out of 10. Patient did previously have her last lumbar epidural of L3-L4 back in April that did provide 80% relief. Today she feels like that injection is still helping. Patient does also state that she has been very active and going to the [facility] with her 3 to 4 days/week. She states she does a lot of bicycling and walking and upper arm strength exercises and feels like this is helping as well.Patient is currently managed with diclofenac 75 mg daily and Flexeril 5 mg at bedtime from our office. She denies any side effects. She is requesting refills.she is prescribed compounded cream. Her Jose Miguel has been reviewed and is appropriate. Review of Systems: General: No recent weight changes, no fever, no sleep disturbances Respiratory: No cough, no shortness of air, no recurring pulmonary infections Cardiovascular/peripheral vascular: No chest pain, no palpitations, no edema, no shortness of breath Gastrointestinal: No new onset incontinence, normal bowel movements reported Genitourinary: No new onset incontinence Musculoskeletal: Low back pain Psychiatric: [Normal mood/affect] Neurological: [Denies weakness in extremities], [denies balance issues] Pain at rest (0-10 scale): 4 Objective Objective:: Physical Exam: General: Alert and oriented x3, no acute distress, pleasant and cooperative Lungs: Respirations even and unlabored, symmetrical chest expansion Eyes: PERRL Musculoskeletal: Flexion and extension of lumbar [spine] somewhat guarded secondary to pain, [antalgic gait noted] Neurological: Speech clear, no gross sensory deficit Has patient had previous pain injection?: No Conservative treatment options previously tried: Home exercise plan Length of treatment: Longer than 12 weeks Meds Home Medications and Allergies Home Medications ?Medication ?Instructions ?Recorded ?Confirmed ?Type anastrozole 1 mg tablet 1 mg PO DAILY cancer 03/30/19 06/04/24 History aspirin 81 mg tablet,delayed 81 mg PO DAILY Supplement 03/30/19 06/04/24 History release bisoprolol 5 1 each PO DAILY blood pressure 03/30/19 06/04/24 History mg-hydrochlorothiazide 6.25 mg tablet potassium chloride 20 mEq 20 meq PO DAILY Supplement 03/30/19 06/04/24 History tablet,extended release vitamin E 100 unit capsule 100 unit PO DAILY Supplement 03/30/19 06/04/24 History calcium polycarbophil 625 mg 1,250 mg PO DAILY Supplement 04/08/19 06/04/24 History tablet (FiberCon) rosuvastatin 10 mg tablet 10 mg PO DAILY Cholesterol 04/08/19 06/04/24 History metoclopramide HCl 5 mg tablet 5 mg PO ACHS GERD 08/04/20 06/04/24 History gabapentin 300 mg capsule 300 mg PO BID Pain 04/03/21 06/04/24 History oxybutynin chloride 5 mg 5 mg PO DAILY URINATION 04/03/21 06/04/24 History tablet,extended release 24 hr meloxicam 7.5 mg tablet 7.5 mg PO DAILY . #30 tabs 11/28/22 06/04/24 Rx meloxicam 15 mg tablet 15 mg PO DAILY #30 tabs 06/04/23 06/04/24 Rx camphor 3.1 %-methyl salicylate 10 1 patch topical TID 5 days #20 ea 08/18/23 06/04/24 Rx %-menthol 6 % topical patch (Salonpas) cyclobenzaprine 5 mg tablet 5 mg PO HS PRN muscle spasm #30 03/11/24 06/04/24 Rx tabs diclofenac sodium 75 mg 75 mg PO DAILY #30 tabs 03/11/24 06/04/24 Rx tablet,delayed release New Prescriptions to Start Prescriptions: Allergies Allergy/AdvReac Type Severity Reaction Status Date / Time Penicillins Allergy Intermediate Rash Verified 12/23/23 12:16 morphine AdvReac Mild Confusion Verified 12/23/23 12:16 Assessment and Plan *Assessment and plan (1) Lumbar radiculopathy: Status: Acute Category: Medical Code(s): M54.16 - Radiculopathy, lumbar region (2) Degenerative joint disease (DJD) of lumbar spine: Status: Acute Qualifiers: Spinal osteoarthritis complication: with radiculopathy Qualified Code(s): M47.26 - Other spondylosis with radiculopathy, lumbar region Category: Medical Code(s): M47.816 - Spondylosis without myelopathy or radiculopathy, lumbar region Plan Patient will be refilled on her Flexeril and diclofenac and she did ask that we change the diclofenac to twice a day that she is tolerating this well. I will also refill her compounded cream. Patient will return to clinic in 1 month. Patient has been instructed to contact the clinic with any concerns before the next appointment. Dr. Partida has reviewed this note and agrees with this plan of care. This note was dictated using voice recognition software and make contain errors or omissions. All injections are used with Lidocaine, Bupivacaine and Depo Medrol. Occasionally urine drug screen is needed to verify patient's compliance with our office pain contract. This is ordered based off specific treatments related to chronic pain with the potential to abuse certain medications.
[2024-07-19 11:11] VITALS: BP 130/71; PULSE 75; RESP 16; O2SAT 98; BMI 29.2
== END 2024-07-19 23:59 | disposition home or self-care (01) ==
PROVIDERS: PCP Family Medicine; Visit Provider Nurse Practitioner Family
DX: M47.26 Other spondylosis with radiculopathy, lumbar region (principal); Z96.653 Presence of artificial knee joint, bilateral
CPT/HCPCS: 99212; G0463

== ENCOUNTER 2024-08-18 15:08 | Outpatient (POV) | payer MEDICARE, SELFPAY ==
[2024-08-18 15:17] VITALS: BP 133/78; PULSE 86; RESP 16; O2SAT 97; BMI 29.8
--- NOTE | 2024-08-18 15:38 | A.OFFVIS_ITS ---
[facility] Disclaimer: The information contained in this section may have been updated after the patient was seen, as this information can be updated by other users. Medical History Hypertension Arthritis Hyperlipidemia Surgical History History of bilateral knee replacement Family History Other No significant family history Social History Smoking Status: Never smoker second hand exposure: No alcohol intake: never substance use type: denies use current occupational status: other Travel in the last 8 weeks: None household members: spouse housing: house current occupation: [employer] current occupational exposures/hazards: No caffeine: Yes PM Subjective & Objective Subjective Subjective:: Patient is a pleasant 74-year-old female who presents today for 1 month follow- up. Today she rates her pain a 2 out of 10. She denies any new injury or fall from her last appointment. Patient states that she has done wonderful overall and that she only had worsening pain this past weekend due to a wedding where she was helping get everything ready and was on her feet all day. Patient states overall she still feels like her last epidural injection of L3-L4 in April is working well. Patient did have 80% relief. Patient does also state that she is still going to the [facility] on a regular basis and feels like this is helping additionally. Patient is currently managed with diclofenac 75 mg daily and Flexeril 5 mg at bedtime. Patient does also have compounded cream. She denies any side effects from these medications. Her Jose Miguel has been reviewed and is appropriate. Review of Systems: General: No recent weight changes, no fever, no sleep disturbances Respiratory: No cough, no shortness of air, no recurring pulmonary infections Cardiovascular/peripheral vascular: No chest pain, no palpitations, no edema, no shortness of breath Gastrointestinal: No new onset incontinence, normal bowel movements reported Genitourinary: No new onset incontinence Musculoskeletal: Low back pain Psychiatric: [Normal mood/affect] Neurological: [Denies weakness in extremities], [denies balance issues] Pain at rest (0-10 scale): 2 Objective Objective:: Physical Exam: General: Alert and oriented x3, no acute distress, pleasant and cooperative Lungs: Respirations even and unlabored, symmetrical chest expansion Eyes: PERRL Musculoskeletal: Flexion and extension of lumbar [spine] somewhat guarded secondary to pain, [antalgic gait noted] Neurological: Speech clear, no gross sensory deficit Has patient had previous pain injection?: No Conservative treatment options previously tried: Home exercise plan Length of treatment: Longer than 12-week Meds Home Medications and Allergies Home Medications ?Medication ?Instructions ?Recorded ?Confirmed ?Type anastrozole 1 mg tablet 1 mg PO DAILY cancer 03/30/19 08/18/24 History aspirin 81 mg tablet,delayed 81 mg PO DAILY Supplement 03/30/19 08/18/24 History release bisoprolol 5 1 each PO DAILY blood pressure 03/30/19 08/18/24 History mg-hydrochlorothiazide 6.25 mg tablet potassium chloride 20 mEq 20 meq PO DAILY Supplement 03/30/19 08/18/24 History tablet,extended release vitamin E 100 unit capsule 100 unit PO DAILY Supplement 03/30/19 08/18/24 History calcium polycarbophil 625 mg 1,250 mg PO DAILY Supplement 04/08/19 08/18/24 History tablet (FiberCon) rosuvastatin 10 mg tablet 10 mg PO DAILY Cholesterol 04/08/19 08/18/24 History metoclopramide HCl 5 mg tablet 5 mg PO ACHS GERD 08/04/20 08/18/24 History gabapentin 300 mg capsule 300 mg PO BID Pain 04/03/21 08/18/24 History oxybutynin chloride 5 mg 5 mg PO DAILY URINATION 04/03/21 08/18/24 History tablet,extended release 24 hr meloxicam 7.5 mg tablet 7.5 mg PO DAILY . #30 tabs 11/28/22 08/18/24 Rx meloxicam 15 mg tablet 15 mg PO DAILY #30 tabs 06/04/23 08/18/24 Rx camphor 3.1 %-methyl salicylate 10 1 patch topical TID 5 days #20 ea 08/18/23 08/18/24 Rx %-menthol 6 % topical patch (Salonpas) cyclobenzaprine 5 mg tablet 5 mg PO HS PRN muscle spasm #30 07/19/24 08/18/24 Rx tabs diclofenac sodium 75 mg 75 mg PO BID #60 tabs 07/19/24 08/18/24 Rx tablet,delayed release New Prescriptions to Start Prescriptions: Allergies Allergy/AdvReac Type Severity Reaction Status Date / Time Penicillins Allergy Intermediate Rash Verified 12/23/23 12:16 morphine AdvReac Mild Confusion Verified 12/23/23 12:16 Assessment and Plan *Assessment and plan (1) Lumbar radiculopathy: Status: Acute Category: Medical Code(s): M54.16 - Radiculopathy, lumbar region (2) Degenerative joint disease (DJD) of lumbar spine: Status: Acute Qualifiers: Spinal osteoarthritis complication: with radiculopathy Qualified Code(s): M47.26 - Other spondylosis with radiculopathy, lumbar region Category: Medical Code(s): M47.816 - Spondylosis without myelopathy or radiculopathy, lumbar region Plan Patient continues to do well from her last epidural in April and does not require any additional injection therapy. Patient will return to clinic in 2 months. I will make sure that she does have refills on her Flexeril and diclofenac. Patient agrees with this plan of care. Patient has been instructed to contact the clinic with any concerns before the next appointment. Dr. Partida has reviewed this note and agrees with this plan of care. This note was dictated using voice recognition software and make contain errors or omissions. All injections are used with Lidocaine, Bupivacaine and Depo Medrol. Occasionally urine drug screen is needed to verify patient's compliance with our office pain contract. This is ordered based off specific treatments related to chronic pain with the potential to abuse certain medications.
== END 2024-08-18 23:59 | disposition home or self-care (01) ==
PROVIDERS: PCP Family Medicine; Visit Provider Nurse Practitioner Family
DX: M47.26 Other spondylosis with radiculopathy, lumbar region (principal); Z96.653 Presence of artificial knee joint, bilateral
CPT/HCPCS: 99212; G0463

== ENCOUNTER 2024-09-20 15:12 | Outpatient (POV) | payer MEDICARE, SELFPAY ==
[2024-09-20 15:26] VITALS: BP 116/71; PULSE 78; RESP 16; O2SAT 98; BMI 29.9
--- NOTE | 2024-09-20 15:34 | A.OFFVIS_ITS ---
[facility] Disclaimer: The information contained in this section may have been updated after the patient was seen, as this information can be updated by other users. Medical History Hypertension Arthritis Hyperlipidemia Surgical History History of bilateral knee replacement Family History Other No significant family history Social History Smoking Status: Never smoker second hand exposure: No alcohol intake: never substance use type: denies use current occupational status: retired Travel in the last 8 weeks: None household members: spouse housing: house current occupation: [employer] current occupational exposures/hazards: No caffeine: Yes PM Subjective & Objective Subjective Subjective:: Patient is a pleasant 74-year-old female who presents today for worsening low back and leg pain. She does rated today a 9 out of 10. Patient denies any new falls or injuries. Patient does state that yesterday it was really bad. She states that they did their late Easter gathering and that she was very busy and up on her feet and then it just caused more severe pain. Patient does state that it is that same pain that what we have been treating her for and that she does feel like her last epidural has officially worn off. Patient does state the pain is interfering with her ability perform activities of daily living such as cooking and cleaning. Patient is currently managed with diclofenac 75 mg daily and Flexeril 5 mg at bedtime. She is also prescribed compounded cream. She denies any side effects. Her Jose Miguel has been reviewed and is appropriate. Review of Systems: General: No recent weight changes, no fever, no sleep disturbances Respiratory: No cough, no shortness of air, no recurring pulmonary infections Cardiovascular/peripheral vascular: No chest pain, no palpitations, no edema, no shortness of breath Gastrointestinal: No new onset incontinence, normal bowel movements reported Genitourinary: No new onset incontinence Musculoskeletal: Low back pain, leg pain Psychiatric: [Normal mood/affect] Neurological: [Denies weakness in extremities], [denies balance issues] Pain at rest (0-10 scale): 9 Objective Objective:: Physical Exam: General: Alert and oriented x3, no acute distress, pleasant and cooperative Lungs: Respirations even and unlabored, symmetrical chest expansion Eyes: PERRL Musculoskeletal: Flexion and extension of lumbar [spine] somewhat guarded secondary to pain, positive leg raise Neurological: Speech clear, no gross sensory deficit Has patient had previous pain injection?: No Conservative treatment options previously tried: Home exercise plan Length of treatment: Longer than 12 weeks Meds Home Medications and Allergies Home Medications ?Medication ?Instructions ?Recorded ?Confirmed ?Type anastrozole 1 mg tablet 1 mg PO DAILY cancer 03/30/19 08/18/24 History aspirin 81 mg tablet,delayed 81 mg PO DAILY Supplement 03/30/19 08/18/24 History release bisoprolol 5 1 each PO DAILY blood pressure 03/30/19 08/18/24 History mg-hydrochlorothiazide 6.25 mg tablet potassium chloride 20 mEq 20 meq PO DAILY Supplement 03/30/19 08/18/24 History tablet,extended release vitamin E 100 unit capsule 100 unit PO DAILY Supplement 03/30/19 08/18/24 History calcium polycarbophil 625 mg 1,250 mg PO DAILY Supplement 04/08/19 08/18/24 History tablet (FiberCon) rosuvastatin 10 mg tablet 10 mg PO DAILY Cholesterol 04/08/19 08/18/24 History metoclopramide HCl 5 mg tablet 5 mg PO ACHS GERD 08/04/20 08/18/24 History gabapentin 300 mg capsule 300 mg PO BID Pain 04/03/21 08/18/24 History oxybutynin chloride 5 mg 5 mg PO DAILY URINATION 04/03/21 08/18/24 History tablet,extended release 24 hr meloxicam 7.5 mg tablet 7.5 mg PO DAILY . #30 tabs 11/28/22 08/18/24 Rx meloxicam 15 mg tablet 15 mg PO DAILY #30 tabs 06/04/23 08/18/24 Rx camphor 3.1 %-methyl salicylate 10 1 patch topical TID 5 days #20 ea 08/18/23 08/18/24 Rx %-menthol 6 % topical patch (Salonpas) cyclobenzaprine 5 mg tablet 5 mg PO HS PRN muscle spasm #30 07/19/24 08/18/24 Rx tabs diclofenac sodium 75 mg 75 mg PO BID #60 tabs 07/19/24 08/18/24 Rx tablet,delayed release New Prescriptions to Start Prescriptions: Allergies Allergy/AdvReac Type Severity Reaction Status Date / Time Penicillins Allergy Intermediate Rash Verified 12/23/23 12:16 morphine AdvReac Mild Confusion Verified 12/23/23 12:16 Assessment and Plan *Assessment and plan (1) Lumbar radiculopathy: Status: Acute Category: Medical Code(s): M54.16 - Radiculopathy, lumbar region (2) Degenerative joint disease (DJD) of lumbar spine: Status: Acute Qualifiers: Spinal osteoarthritis complication: with radiculopathy Qualified Code(s): M47.26 - Other spondylosis with radiculopathy, lumbar region Category: Medical Code(s): M47.816 - Spondylosis without myelopathy or radiculopathy, lumbar region Plan Patient is experiencing worsening pain in her low back with numbness and tingling into her lower extremities. Patient did have limited range of motion of her lumbar spine with a positive leg raise. I did discuss with patient that I do believe they would benefit from a lumbar epidural steroid injection. Risk and benefits were discussed with patient and the patient would like to proceed forward with this plan of care. Patient is not on any blood thinners. Patient has tried and failed conservative therapy including continued at home stretching exercise for longer than 12 weeks between injections. Patient did previously have a lumbar epidural back in April that provided 80% relief and lasted 4 months. We will schedule the patient for an LESI L3-L4 under fluoroscopy. I will make sure that she does have refills on her diclofenac and Flexeril. Patient has been instructed to contact the clinic with any concerns before the next appointment. Dr. Partida has reviewed this note and agrees with this plan of c are. This note was dictated using voice recognition software and make contain errors or omissions. All injections are used with Lidocaine, Bupivacaine and Depo Medrol. Occasionally urine drug screen is needed to verify patient's compliance with our office pain contract. This is ordered based off specific treatments related to chronic pain with the potential to abuse certain medications.
== END 2024-09-20 23:59 | disposition home or self-care (01) ==
PROVIDERS: PCP Family Medicine; Visit Provider Nurse Practitioner Family
DX: M47.26 Other spondylosis with radiculopathy, lumbar region (principal); Z73.89 Other problems related to life management difficulty
CPT/HCPCS: 99212; G0463

== ENCOUNTER 2024-10-01 14:50 | Day surgery (SDC) | payer MEDICARE, SELFPAY ==
[2024-10-01 15:04] VITALS: BP 151/75; PULSE 72; RESP 16; TEMP 36.8; O2SAT 98; BMI 29.8
[2024-10-01 15:24] VITALS: BP 164/70; PULSE 81; RESP 16; O2SAT 100
[2024-10-01] MEDS: DEXAMETHASONE 10MG/ML 1ML VIAL 10 MG (15:25)
[2024-10-01] MEDS: LIDOCAINE 1% 30ML PF VIAL 30 ML (15:25)
[2024-10-01 15:27] VITALS: BP 164/70; PULSE 81; RESP 16; O2SAT 100
[2024-10-01 15:32] VITALS: BP 155/76; PULSE 80; RESP 16; O2SAT 99
[2024-10-01] MEDS: IOPAMIDOL-200 (41%); 20ML VIAL 20 ML IV (15:32)
--- NOTE | 2024-10-01 15:32 | EXP.PAIN.PRO ---
Procedure Date: 10/01/24 Time: 15:32 Anesthesiologist:: Tobias Partida MD Complications:: None Pre-procedure Diagnosis:: Degenerative disease of lumbar spine with lumbar radiculopathy symptoms Post-procedure Diagnosis:: Same Indications for Procedure:: This patient is a pleasant 74-year-old white female who we are treating for degenerative disc disease of lumbar spine with lumbar radiculopathy symptoms. She has done well with these in the past. She gets 80% relief for 3 months or more. Her last injection was approximately 4 months ago. She presents for repeat lumbar pro steroid injection today. Procedure Details:: Informed consent was obtained and the risk and benefits of the procedure was explained to the patient. The patient was taken to the procedure room. The patient was placed prone on the procedure table. The patient was prepped and draped in sterile fashion. C-arm fluoroscopy was used to view the lumbar spine. Skin and subcutaneous tissues were anesthetized using lidocaine. I placed an 18-gauge epidural needle and advanced into the L4-L5 interspace using fluoroscopic guidance and [id number] to air. After confirmation of needle placement in the epidural space with dye I injected 2 mL of lidocaine 1.5% with Depo-Medrol 80 mg. Patient tolerated the procedure well with no complications. Plan and Disposition:: Will follow-up with this patient in 2 weeks. Will reevaluate symptoms at that time.
== END 2024-10-01 15:32 | disposition home or self-care (01) ==
PROVIDERS: PCP Family Medicine; Visit Provider Anesthesiology
DX: M51.16 Intervertebral disc disorders with radiculopathy, lumbar region (principal)
CPT/HCPCS: 62323; J1100; Q9966

== ENCOUNTER 2024-10-27 15:21 | Outpatient (POV) | payer MEDICARE, SELFPAY ==
--- NOTE | 2024-10-27 15:52 | EXP.PAIN.SOA ---
[facility] Disclaimer: The information contained in this section may have been updated after the patient was seen, as this information can be updated by other users. Medical History Hypertension Arthritis Hyperlipidemia Surgical History History of bilateral knee replacement Family History Other No significant family history Social History Smoking Status: Never smoker second hand exposure: No alcohol intake: never substance use type: denies use current occupational status: retired Travel in the last 8 weeks?: None household members: spouse housing: house current occupation: [employer] current occupational exposures/hazards: No caffeine: Yes PM Subjective & Objective Subjective Subjective:: Patient is a pleasant 74-year-old female who presents today for follow-up of her lumbar epidural steroid injection L4-L5 on 10/01/2024. Today she rates her pain a 6 out of 10. Patient does state that this 1 did help however not as well as her previous ones. Patient states she is still having the chronic low back pain and does state that she recently went on vacation that did require a lot of walking and had increased leg issues. Patient states that they did drive all the way to [place] and even had increased swelling in her legs however all of it has resolved currently. Patient does believe this was related to being stuck in the seated position for long hours. Patient does also feel like the diclofenac that we prescribed is not working nearly well like what it had been previously. Patient is interested in trying other options. Patient is also managed with Flexeril 5 mg at bedtime and compounded cream from our office and denies any side effects. Her Jose Miguel has been reviewed and is appropriate. Review of Systems: General: No recent weight changes, no fever, no sleep disturbances Respiratory: No cough, no shortness of air, no recurring pulmonary infections Cardiovascular/peripheral vascular: No chest pain, no palpitations, no edema, no shortness of breath Gastrointestinal: No new onset incontinence, normal bowel movements reported Genitourinary: No new onset incontinence Musculoskeletal: Low back pain Psychiatric: [Normal mood/affect] Neurological: [Denies weakness in extremities], [denies balance issues] Pain at rest (0-10 scale): 6 Objective Objective:: Physical Exam: General: Alert and oriented x3, no acute distress, pleasant and cooperative Lungs: Respirations even and unlabored, symmetrical chest expansion Eyes: PERRL Musculoskeletal: Flexion and extension of lumbar [spine] somewhat guarded secondary to pain, [antalgic gait noted] Neurological: Speech clear, no gross sensory deficit Has patient had previous pain injection?: Yes Percent improvement in pain since last injection: 40-50 Conservative treatment options previously tried: Home exercise plan Length of treatment: Longer than 12 weeks Meds Home Medications and Allergies Home Medications ?Medication ?Instructions ?Recorded ?Confirmed ?Type anastrozole 1 mg tablet 1 mg PO DAILY cancer 03/30/19 10/01/24 History aspirin 81 mg tablet,delayed 81 mg PO DAILY Supplement 03/30/19 10/01/24 History release bisoprolol 5 1 each PO DAILY blood pressure 03/30/19 10/01/24 History mg-hydrochlorothiazide 6.25 mg tablet potassium chloride 20 mEq 20 meq PO DAILY Supplement 03/30/19 10/01/24 History tablet,extended release vitamin E 100 unit capsule 100 unit PO DAILY Supplement 03/30/19 10/01/24 History calcium polycarbophil 625 mg 1,250 mg PO DAILY Supplement 04/08/19 10/01/24 History tablet (FiberCon) rosuvastatin 10 mg tablet 10 mg PO DAILY Cholesterol 04/08/19 10/01/24 History metoclopramide HCl 5 mg tablet 5 mg PO ACHS GERD 08/04/20 10/01/24 History gabapentin 300 mg capsule 300 mg PO BID Pain 04/03/21 10/01/24 History oxybutynin chloride 5 mg 5 mg PO DAILY URINATION 04/03/21 10/01/24 History tablet,extended release 24 hr meloxicam 7.5 mg tablet 7.5 mg PO DAILY . #30 tabs 11/28/22 10/01/24 Rx meloxicam 15 mg tablet 15 mg PO DAILY #30 tabs 06/04/23 10/01/24 Rx camphor 3.1 %-methyl salicylate 10 1 patch topical TID 5 days #20 ea 08/18/23 10/01/24 Rx %-menthol 6 % topical patch (Salonpas) cyclobenzaprine 5 mg tablet 5 mg PO HS PRN muscle spasm #30 07/19/24 10/01/24 Rx tabs diclofenac sodium 75 mg 75 mg PO BID #60 tabs 07/19/24 10/01/24 Rx tablet,delayed release New Prescriptions to Start Prescriptions: Allergies Allergy/AdvReac Type Severity Reaction Status Date / Time Penicillins Allergy Intermediate Rash Verified 12/23/23 12:16 morphine AdvReac Mild Confusion Verified 12/23/23 12:16 Assessment and Plan *Assessment and plan (1) Degenerative joint disease (DJD) of lumbar spine: Status: Acute Qualifiers: Spinal osteoarthritis complication: with radiculopathy Qualified Code(s): M47.26 - Other spondylosis with radiculopathy, lumbar region Category: Medical Code(s): M47.816 - Spondylosis without myelopathy or radiculopathy, lumbar region (2) Lumbar radiculopathy: Status: Acute Category: Medical Code(s): M54.16 - Radiculopathy, lumbar region Plan I did discuss with the patient that we will discontinue the diclofenac temporarily and start her on Celebrex 100 mg twice daily with a 2-week supply. Patient does not need refills on her Flexeril. Patient was counseled to call her office if this medication does help and would like additional refills before her next follow-up in 6 weeks. Patient agrees with this plan of care. Patient has been instructed to contact the clinic with any concerns before the next appointment. Dr. Partida has reviewed this note and agrees with this plan of care. This note was dictated using voice recognition software and make contain errors or omissions. All injections are used with Lidocaine, Bupivacaine and dexamethasone. Occasionally urine drug screen is needed to verify patient's compliance with our office pain contract. This is ordered based off specific treatments related to chronic pain with the potential to abuse certain medications.
[2024-10-27 16:01] VITALS: BP 176/74; PULSE 87; RESP 18; O2SAT 98; BMI 29.2
== END 2024-10-27 23:59 | disposition home or self-care (01) ==
PROVIDERS: PCP Family Medicine; Visit Provider Nurse Practitioner Family
DX: M47.26 Other spondylosis with radiculopathy, lumbar region (principal); Z79.899 Other long term (current) drug therapy
CPT/HCPCS: 99212; G0463

== ENCOUNTER 2024-11-24 14:21 | Outpatient (POV) | payer MEDICARE, SELFPAY ==
--- OUTSIDE RECORDS SUMMARY | 2024-03-11 07:15 | XMS_ITS ---
Author Organization [facility] Address [address] [facility] [address] [phone] Care Team Providers Care Full Stack Php Developer Name Role Phone Carlos Manuel Barragan Primary Care Provider REASON FOR VISIT FLU SHOT Immunizations Vaccine Route Administration Date Status Comme nts Fluzone High Dose (65yr and older) IM Intramuscular 03/11/2024 Administered Encounters Encounter Location Date Provider Diagnosis [facility] [address] [facility] [address] [place] [phone] 03/11/2024 Carlos Manuel Barragan Encounter for immunization Z23 Assessments Encounter Date Diagnosis (ICD Code) Assessment Notes Treatment Notes Treatment Clinical Notes Section Notes 03/11/2024 Encounter for immunization (ICD-10 - Z23) Plan Of Treatment No Information Progress Notes * DIAMANTE EDOUARDDOB:1950 ( 74 yo F)Acc No.[id number]:03/11/2024 Patient: Carlos Manuel YARISAYIA Provider: Carlos Manuel Barragan M.D. :1950 A ge:73 Y S ex:Female Date:03/11/2024 Address:[place] [id number] Subjective: * Chief Complaints: * 1 . [...] signature of Carlos Manuel Barragan MD on 11/24/2024 at 02:25 PM EDT Sign off status: Pending * Provider: Carlos Manuel Barragan M.D. Date: Generated for Leonel mcdonough/Ana/Julianaitting on: 0 11/24/2024 02:25 PM EDT
--- OUTSIDE RECORDS SUMMARY | 2024-08-18 10:15 | XMS_ITS ---
[facility] Address [address] [facility] [address] [place] [id number] Care Team Providers Care Gage Designer Name Role Phone Carlos Manuel Barragan Primary Care Provider Rafael Barajas Unavailable [phone] Allergies Allergen (clinical drug ingredient) Drug/Non Drug Allergy documented on EMR Reaction Allergy Type Onset Date Status Substance with penicillin structure and antibacterial mechanism of action (substance) Penicillins Unknown Drug Allergy Active Results Component Value Reference Range Notes Influenza Screen (in house) Reviewed date:08/20/2024 05:47:23 PM Interpretation: Performing Lab: Notes/Report: results Pos A Covid test (in house) Reviewed date:08/26/2024 02:31:02 PM Interpretation: Performing Lab: Notes/Report: Result: Neg REASON FOR VISIT poss sinus infection Medications Medication SIG (Take, Route, Frequency, Duration) Notes Start Date End Date Status Diclofenac Sodium 75 MG 1 tablet as needed Orally Twice a day Active Asmanex HFA 50 MCG/INH DIRECTED INHALED 2 TIMES A DAY *Please review and pick correct strength-formulatio n from Medispan options. If intended option is not shown, discontinue and re-order from Quick Search* Active Valsartan 160 MG 1 tablet Orally Once a day; Duration: 30 day(s) Active Metoprolol Succinate 50 MG 1 capsule Orally Once a day; Duration: 30 day(s) Active Fluticasone Propionate 50 MCG/ACT 1 spray(s) in each nostril once a day; Duration: 30 day(s) 05/28/2022 Active Montelukast Sodium 10 MG 1 tab(s) orally once a day; Duration: 90 days Active Potassium Chloride ER 1 P.O. Q DAY *Please review and pick correct strength-formulatio n from Medispan options. If intended option is not shown, discontinue and re-order from Quick Search* Active Vitamin D3 50 MCG (1999 UT) 1 cap(s) orally once a day Active Aspir-Low 81 MG 1 tab(s) orally once a day; Duration: 30 day(s) Active ZyrTEC Allergy 10 MG 1 tab(s) orally once a day; Duration: 30 day(s) Active Crestor 10 MG 1 tab(s) orally once a day (at bedtime) Active Vital Signs Blood pressure systolic 110 mm Hg 08/19/19 25 Blood pressure diastolic 60 mm Hg 025 Heart Rate 95 /min 08/18/2024 Height 64.50 in 08/18/2024 Weight 190.2 lbs 08/18/2024 BMI 32.14 kg/m2 08/18/2024 Encounters Encounter Location Date Provider Diagnosis [facility] [address] [facility] [address] [place], [place] [id number] 08/18/2024 Rafael Barajas Influenza A J 10.1 Assessments Encounter Date Diagnosis (ICD Code) Assessment Notes Treatment Notes Treatment Clinical Notes Section Notes 08/18/2024 Influenza A (ICD-10 - J10.1) fluids, rest, supportive measures for fever/symptom relief Plan Of Treatment Treatment Notes Assessment Notes Influenza A fluids, rest, suppor tive measures for fever/symptom relief Next Appt Details Follow Up: prn, Reason: Progress Notes * DIAMANTE EDOUARDDOB:1950 ( 74 yo F)Acc No.[id number]:08/18/2024 Progress Notes Patient: SAY BAXTERIA Provider: João Barajas M.D. :1950 A ge:74 Y S ex:Female Date:08/18/2024 Address:[id number] Pcp:Carlos Manuel Barragan Subjective: * Chief Complaints: * 1 . Poss sinus infection. * HPI: E NT/respiratory: 74 year old female presents with c/o cough P t complains of dry without any sputum production cough that started Friday. Associated with nasal congestion, ear pain and headache . * ROS: D ERMATOLOGY: no R lizzie. n o H papito. G ASTROENTEROLOGY: no N ausea. n o V omiting. U ROLOGY: no D ifficulty urinating. n o B lood in urine. * Medical History: K NEE TORN MENISCUS (2005), Allergic rhinitis, Hypertension, Left breast cancer, Dx: 2014, Grade 1 lobular carcinoma, Declined pneumonvax - 02/2016, DIOGENES - CPAP use, Dyslipidemia, Saccular aneurysm of descending thoracic aorta, 2021, Right brachial artery thrombosis, 2021. * Surgical History: R T Knee Arthroscopy , Cholecystectomy , RT Total Knee Replacement, Dr. Newman, [facility], [place], [place] 07/07/2007, LT Axillary Lymphnode Removal under L axillary x 4 03/2015, LT Mastectomy-Dr Dhillon 05/2015, LT Breast Reconstruction , RT Eye Fluid Removal 06/2017, Carpal Tunnel Release 02/2018, LT Knee Replacement - left- 09/29/2018, TEVAR procedure (repair of descending thoracic aneurysm) - Dr. Muse 04/26/2022, RT Brachial Artery Thrombectomy- Dr. Muse 05/15/2022. * Hospitalization/Major Diagno stic Procedure: D ehydration 08/2006, Cough, Congestion- [facility] 07/14/2017. * Family History: F ather: , CHF. M other: , [place]. 1 daughter(s) - healthy. . Sister with breast cancer. * Social History: C URRENT TOBACCO USE S moking Status: Patient does NOT smoke. C affeine: no. Home smoke detector use: yes. Marital Status: . Occupation: [employer]. Past smoking status: no. Alcohol: socially. * [...] *Please review and pick correct strength-formulation from Medispan options. If intended option is not shown, discontinue and re-order from Quick Search*, Taking Potassium Chloride ER 1 P.O. Q DAY , Notes to Pharmacist: *Please review and pick correct strength-formulation from Medispan options. If intended option is [...] 1 tab(s) orally once a day , Discontinued Cefuroxime Axetil 500 MG Tablet 1 tablet Orally every 12 hrs , Discontinued Paxlovid (300/100) 20 x 150 MG & 10 x 100MG Tablet Therapy Pack 3 tablets Orally Twice a day , Discontinued valACYclovir HCl 500 MG Tablet TAKE 2 TABLETS BY MOUTH TWICE DAILY FOR 1 DAY. , Discontinued Metoclopramide HCl 5 MG Tablet 1 tab(s) orally 4 times a day (before meals and at bedtime) , Medication List reviewed and reconciled with the patient * Allergies: P enicillins. Objective: * Vitals: W t: 190.2, Temp: 99.0, BP: 110/60, HR: 95, O2 Sat: 99% on RA, Nurse: seymour, Ht: 64.50, BMI:32.14. * Examination: E NT/Respiratory: General Appearance: N AD. E yes: P ERRLA, sclera clear. E ars: auditory canals normal bilaterally, tympanic membranes normal bilaterally.?Heart : R RR, normal S1 S2. L ungs: c lear to auscultation bilaterally. ? Assessment: * Assessment: 1. I lorenza A - J10.1 (Primary) Plan: * Treatment: Value Reference Range r esults Pos A * Lindsay Montano 08/18/2024 02:25: 25 PM > Provider reviewed results while patient in office. ?LAB: Covid test (in house) (Collection Date & Time - 08/18/2024)* Value Reference Range R esult: Neg * Lindsay Montano 025 2:30:40 PM > , Provider reviewed results while patient in office. Notes: fluids, rest, supportive measures for fever/symptom relief?? * Procedure Codes: G 2211 Complex e/[place], [address] [place], [address] COVID TEST IN HOUSE, Modifiers: QW , 10575 Flu Test- Nasal Swab, Modifiers: QW , 3074F SYST BP LT 130 MM HG, 3078F DIAST BP < 80 MM HG * Follow Up: p rn * Images: Billing Information: * Visit Code: 17774 Office Visit, Est Pt., Level 3. * Procedure Codes: G2211 Complex e/[place]. [address] [place]. [address] COVID TEST IN HOUSE. Modifiers: QW 48203 Flu Test- Nasal Swab. Modifiers: QW 3074F SYST BP LT 130 MM HG. 3078F DIAST BP < 80 MM HG. * Electronic signature of Ciara Barajas MD on 11/24/2024 at 02:25 PM EDT Sign off status: Pending * Provider: João Barajas M.D. Date: 08/18/2024 Generated for Leonel mcdonough/Ana/eTcharlysmitting on: 0 11/24/2024 02:25 PM EDT History and Physical Notes * HPI (History of Present Illness) Category Sub-Category Detail Notes Category Not es ENT/respiratory cough Pt complains of dry without any sputum production cough that started Friday. Associated with nasal congestion, ear pain and headache Examination Category Sub-Category Detail Notes Category Not es ENT/Respiratory Ears: auditory canals normal bilaterally, tympanic membranes normal bilaterally Heart : RRR, normal S1 S2 Lungs: clear to auscultatio n bilaterally General Appearance: NAD Eyes: PERRLA, sclera clear
--- OUTSIDE RECORDS SUMMARY | 2024-09-27 10:30 | XMS_ITS | Encounter Summary ---
Author Organization [place] [address] Care Team Providers Care Head Of Talent Management Name Role Phone Carlos Manuel Barragan Primary Care Provider [phone] Reason for Visit * Reason Comments Follow Up Left foot Encounter Details Date Type Department Care Team (Late st Contact Info) Description 09/27/2024 10:30 AM EDT Office Visit [facility] [place] [address] [facility] [address] [place] [address] Nikolas Jha DPM [address] [place] [address] Hallux valgus with bunions of left foot (Primary Dx); Metatarsus primus varus; Bunionette of left foot; Hammer toe of left foot; Right foot pain; Acquired hammer toe; Left foot pain Social History Tobacco Use [...] - - Pulse - - Temperature 36.8 C (98.2 F) 09/27/2024 10:37 AM EDT Respiratory Rate - - Oxygen Saturation - - Inhaled Oxygen Concentration - - Weight 85.5 kg (188 lb 9.6 oz) 09/27/2024 10:37 AM EDT Height 167.6 cm (5' 6 ) 09/27/2024 10:37 AM EDT Body Mass Index 30.44 09/27/2024 10:37 AM EDT documented in this encounter Functional [...] Progress Notes * Nikolas Jha DPM - 09/27/2024 10:30 AM EDT Images from the original note were not included. Subjective: Patient ID: Juany Conn is a 74 y.o. female. Chief Complaint: Follow Up (Left foot) HPI 74 y.o. female complains of Follow Up (Left foot) DATE OF OPERATION: 03/22/2024 PREOPERATIVE DIAGNOSES: Hallux [...] leg splint, left. SURGEON: Nikolas Jha DPM. COMFORT FILLER: None. ANESTHESIA: Local with IV sedation. HEMOSTASIS: Ankle tourniquet. ESTIMATED BLOOD LOSS: 1 mL. No pain. Past Medical History: Diagnosis Date Anemia when younger only Aortic aneurysm stent placed 04/2022 - [facility] Arthritis knees, hips,back BRCA negative Breast cancer (HCC) 02/09/2015 ILC, grade 1. No receptors at this time (not sufficient tissue), left, no radiation, no chemo Bunion Bunion, left 02/2024 Bunionette of left foot 02/2024 BENITEZ (dyspnea on exertion) 10/2023 started on beta elpidio, resolved 01/2024 Encounter for blood transfusion with THR 2 units Hammer toe Hammer toe of left foot 02/2024 Hyperlipidemia Hypertension Lumbar disc disease Motion sickness past history when younger Postoperative nausea and vomiting does well with patch behind ear Prediabetes Unspecified sleep apnea cpap at night. does not know setting Wears glasses for reading Current Outpatient Medications on File Prior to Visit Medication Sig Dispense Refill acyclovir (ZOVIRAX) 800 mg Oral Tablet aspirin 81 mg tablet Take 81 mg [...] times daily as needed for Muscle spasms. diclofenac (VOLTAREN) 75 mg Oral Tablet, Delayed Release (E.C.) diclofenac-misoprostoL (ARTHROTEC 75) 75-200 mg-mcg Oral Tab,IR [...] [facility]; Service: General CARPAL TUNNEL RELEASE Bilateral 02/12/2018 BILATERAL CARPAL TUNNEL RELEASE ; Surgeon: Francisco Javier Lepe MD; Location: [facility]; Service: Hand SECTION 04/01/1991 CHOLECYSTECTOMY COLONOSCOPY CORRECTION HAMMERTOE You have on file FOOT SURGERY Left 10/05/2010 hammertoes HAMMER TOE SURGERY Left 03/22/2024 Surgeon: Nikolas Jha DPM; Location: [facility]; Service: Podiatry JOINT REPLACEMENT TOE FUSION Left 03/22/2024 first metatarsophalangeal joint fusion left foot.fifth metatarsal osteotomy left foot.left fourth and fifth hammertoe repair.; Surgeon: Nikolas Jha DPM; Location: [facility]; Service: Podiatry TOE SURGERY Left 03/22/2024 Surgeon: Nikolas Jha DPM; Location: [facility]; Service: Podiatry TOENAIL EXCISION TONSILLECTOMY TOTAL KNEE ARTHROPLASTY Right 2008 TOTAL KNEE ARTHROPLASTY Left 09/29/2018 LEFT TOTAL KNEE ARTHROPLASTY; Surgeon: Brian Newman MD; Location: [facility]; Service: Orthopedics VASCULAR SURGERY 04/26/2022 TVAR VASCULAR SURGERY Right 05/15/2022 right bracial artery cutdown and exploration, kelley thromboectomy WISDOM TOOTH EXTRACTION Family History Problem Relation Age of Onset Ovarian Cancer Mother 83 Cancer Mother uterus Heart Failure Father Thyroid Disease Father Breast Cancer Sister 52 High Blood Pressure Sister High Blood Pressure Sister Cancer Sister Breast cancer Defects Brother Anesth Problems Neg Hx Social [...] file Social Connections: Unknown (03/03/2023) Received from [facility] Family and Community Support Help with Day-to-Day Activities: Not on file Lonely or Isolated: Not on file Intimate Partner Violence: Not At Risk (06/30/2023) Received from [facility] Abuse Screen Feels Unsafe at Home or Work/School: no Feels Threatened by Someone: no Does Anyone Try to Keep You From Having Contact with Others or Doing Things Outside Your Home?: no Physical Signs of Abuse Present: no Housing Stability: Unknown (05/16/2023) Received from [facility] Housing Stability Current Living Arrangements: Not on file Potentially Unsafe Housing Conditions: Not on file Review of Systems Constitutional: Negative for fatigue and fever. Eyes: Positive for visual disturbance. Respiratory: Negative for shortness of breath. Cardiovascular: Negative for chest pain and leg swelling. Gastrointestinal: Negative for nausea and vomiting. Musculoskeletal: Negative for arthralgias, gait problem and joint swelling. Skin: Negative for rash and wound. Neurological: Positive for numbness (Both feet). Negative for dizziness, weakness, light-headednessand headaches. Hematological: Does not bruise/bleed easily. All other systems reviewed and are negative. Objective: Vitals: 09/27/24 1037 Temp: 98.2 ??F (36.8 ??C) TempSrc: Forehead Weight: 188 lb 9.6 oz (85.5 kg) Height: 5' 6 (1.676 m) Body mass index is 30.44 kg/m??. No results found for: HGBA1C XR FOOT LEFT AP LATERAL AND OBLIQUE STANDING Result Date: 09/27/2024 Stable postop rectus 1st and 5th rays, good consolidation the first MP joint fusion site, solid healing of the fifth metatarsal osteotomy site, fixation in place, no current complication. Physical Exam Assessment and Plan: Diagnoses and all orders for this visit: 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 of left foot Hammer toe of left foot Right foot pain Acquired hammer toe Left foot pain - XR FOOT LEFT AP LATERAL AND OBLIQUE STANDING; Future Doing really well postop. No complications. Happy with the results. Follow-up in January. Most likely surgery in the right foot in February. No follow-ups on file. documented in this encounter Plan of Treatment Upcoming Encounters Date Type Department Care Team (Late st Contact Info) Description 02/03/2025 10:15 AM EDT Office Visit [facility] [address] [place] [phone] Nikolas Jha DPM [address] [place] [id number] documented as of this encounter Goals Goal Patient Goal Type Associated Problems Recent Progress Patient-Stated? Author Breast [facility] Breast Health On track( 021 [...] FOOT LEFT AP LATERAL AND OBLIQUE STANDING (09/27/2024 1:03 PM EDT) Anatomical Region Laterality Modality Foot Radiographic Lindsey ging Narrative 09/27/2024 7:09 PM EDT Stable postop rectus 1st and 5th rays, good consolidation the first MP joint fusion site, solid healing of the fifth metatarsal osteotomy site, fixation in place, no current complication. 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 Bunionette of left foot Hammer toe of left foot Right foot pain Pain in limb Acquired hammer toe Other hammer toe (acquired) Left foot pain Pain in limb Left foot pain Pain in limb documented in this encounter Additional Health Concerns Assessment Noted Time A fall risk assessment has been complete d for the patient 10/21/2023 2:54 PM EDT documented as of this encounter Care Teams Head Of Talent Management Relationship Specialty Start Date End Date Carlos Manuel Barragan [address] [place] [address] [facility] [id number] PCP - General 07/03/10 documented as of this encounter
--- OUTSIDE RECORDS SUMMARY | 2024-09-27 11:20 | XMS_ITS | Encounter Summary ---
Author Organization [place] [address] Care Team Providers Care Training Developer Name Role Phone Carlos Manuel Barragan Primary Care Provider [phone] Encounter Details Date Type Department Care Team (Late st Contact Info) Description 09/27/2024 11:20 AM EDT Ancillary Procedure [facility] [place] [address] [facility] [address] [place] [phone] Nikolas Jha DPM [address] [place] [address] Left foot pain Social History Tobacco Use [...] 10:15 AM EDT Office Visit [facility] [place] [address] [facility] [address] [place] [phone] Nikolas Jha DPM [address] [place] [address] documented as of this encounter Goals Goal Patient Goal Type Associated Problems Recent Progress Patient-Stated? Author Breast [facility] Breast Health On track( 021 9:11 AM EDT) Maisha Anderson, RN Note: Patient will be compliant with monthly Self Breast Exams and is aware of to who to contact for any unusual or concerning findings. Breast [facility] Breast Health Alexia Williamson, RN Note: Patient will be compliant with monthly Self Breast Exams and is aware of to who to contact for any unusual or concerning findings. documented as of this encounter Procedures Procedure Name Priority Date/Time Associated Diagnosis Comments XR FOOT LEFT AP LATERAL AND OBLIQUE STANDING Routine 09/27/2024 1:03 PM EDT Left foot pain documented in this encounter [...] documented as of this encounter Care Teams Training Developer Relationship Specialty Start Date End Date Carlos Manuel Barragan [address] [place] [address] [address] [place] [address] PCP - General 07/03/10 documented as of this encounter
--- OUTSIDE RECORDS SUMMARY | 2024-11-12 06:35 | XMS_ITS | Continuity of Care Document ---
Author Organization [facility] Address [address] [place] [address] Phone Care Team Providers Care Head Of Stock Name Role Phone Weston Tamez MD Unavailable [...] - Active Procedures Procedure Date Office/outpatient visit,[place] [facility] [place] X-RAY EXAM HIP UNI 2-3 VIEWS [...] Providers Copied on Encounter [facility] [place], [address] [place], [address], [place] tel:[phone] [facility] No Information 5 Joi Ontiveros. [address] [place], [address], [place]. tel:[phone] Referring Provider: Bea Bowles, [address] [place] [address], [address]. tel:[phone] [facility], [address] [place] [address], [address], [place] tel:[phone] [facility] No Information 5 Trent Torres. [address] [place] [address], [address], [place]. tel:[phone] Referring Provider: Bea Nita Wilbur, [address] [place] [address], [facility]. tel:[phone] Office/outpa tient visit,new, mod [facility] [place], [address] [place] [address], [address], [place] tel:[phone] [facility] knee (chief complaint)L t knee (chief complaint) Pain in left knee 5 Trent Torres. [address] [place] [address], [address], [place]. tel:[phone] Referring Provider: Bea Bowles, [address] [place] [address], [address]. tel:[phone] [facility] [place], [address] [place] [address], [address], [place] tel:[phone] [facility] No Information 0 2 Neerajflavio Figueredo. [address] [place] [address], [address], [place]. tel:[phone] Referring Provider: Brian Montesinos, [address] [place] [address], [address]. tel:[phone] Office/outpa tient visit,est, mod [facility] [place], [address] [place] [address], [facility], tel:[phone] [facility] (chief complaint) Impingement syndrome of right shoulder 2 Trent Torres. [address] [place] [address], [address], [place]. tel:[phone] Referring Provider: Brian Montesinos, [address] [place] [address], [address]. tel:[phone] [facility] [place], [facility] [place], [facility], [place] tel:[phone] [facility] Francisco Javier Pain in left kneeNeuralgia and neuritis, unspecified 2 Joi Ontiveros. [address] [place], [address], [place]. tel:[phone] Referring Provider: Bea Bowles, [address] [place] [address], [facility]. tel:[phone] [facility] [place], [address] [place] [address], [facility], [place] tel:[phone] [facility] Neuralgia and neuritis, unspecified 2 Joi Ontiveros. [address] [place], [address], [place]. tel:[phone] Referring Provider: Bea Bowles, [address] [place] [address], [address]. tel:[phone] Office/outpa tient visit,est, mod [facility] [place], [address] [place] [address], [address], [place] tel:[phone] [facility] (chief complaint) Other low back painNeuralgia and neuritis, unspecified 2 Nita Figueredo. [address] [place] [address], [address], [place]. tel:[phone] Referring Provider: Bea Bowles, [address] [place] [address], [facility]. tel:[phone] Office/outpa tient visit,est, mod [facility] [place], [facility] [place] [place], [address], [place] tel:[phone] Dionicio Mcintyre Neuralgia and neuritis, unspecifiedOt her low back painPain in left knee Jun- 2 Joi Ontiveros. [address] [place], [address], [place]. tel:[phone] Referring Provider: Bea Bowles, [address] [place] [address], [facility]. tel:[phone] Office/outpa tient visit,est, mod [facility] [place], [facility] [place], [facility], tel:[phone] [facility] general orthopedic (chief complaint) Other bursitis of knee, left kneeUnilatera l primary osteoarthriti s, left knee Jun- 2 Nita Figueredo. [address] [place] [address], [address], [place]. tel:[phone] Referring Provider: Brian Montesinos, [address] [place] [address], [facility]. tel:[phone] [facility] [address], [facility], tel:[phone] [facility] Other bursitis of knee, left knee 1 Jennifer Abbott. [address] [place] [address], [address], [place]. tel:[phone] Referring Provider: Bea Bowles, [address] [place] [address], [facility]. tel:[phone] Office/outpa tient visit,est, mod [facility] [address], [address], [place] tel:[phone] [facility] general orthopedic (chief complaint) Unilateral primary osteoarthriti s, left knee Nov- 1 Nita Figueredo. [address] [place] [address], [address], [place]. tel:[phone] Referring Provider: Beadianna Bowles, [address] [place], [address]. tel:[phone] Office/outpa tient visit,est, mod [facility] [place], [facility] [place] [place], [address], [place] tel:[phone] [facility] general orthopedic (chief complaint) Aftercare following joint replacement surgeryPresen ce of left artificial knee jointOther bursitis of knee, left knee 1 Nita Thurmanah. [address] [place], [address], [place]. tel:[phone] Referring Provider: Brian Montesinos, [address] [place] [address], [address]. tel:[phone] Office/outpa tient visit,est, mod [facility] [place], [facility] [place], [facility], [place] tel:[phone] [facility] general orthopedic (chief complaint) No Information 1 Trent Torres. [address] [place] [address], [address], [place]. tel:[phone] Office/outpa tient visit,est, mod [facility] [place], [facility] [place], [facility], [place] tel:[phone] [facility] No Information 9 Roberto Nevarez. [address] [place], [place], [facility], [place]. tel:[phone] Referring Provider: Weston Tamez, [address] [place], [address]. tel:[phone] [facility] [place], [facility] [place], [facility], [place] tel:[phone] [facility] No Information 9 Joi Ontiveros. [address] [place], [address], [place]. tel:[phone] [facility] [place], [facility] [place], [address], [place] tel:[phone] [facility] No Information 9 Kruer Weston. [address] [place], [address], [place]. tel:[phone] Office/outpa tient visit,new, mod [facility] [place], [facility] [place], [facility], tel:[phone] [facility] Radiculopathy , lumbar region 8 Yannick Dobson. [address] [place] [address], [id number], . tel:[phone] Referring Provider: Scar Rodriguez, [address] [place] [address], [facility]. tel:[phone] [facility] [address], [facility], tel:[phone] [facility] No Information 8 Krbenedict Ontiveros. [address] [place], [address], [place]. tel:[phone] Office/outpa tient visit,est, mod [facility] [place], [facility] [place] [place], [address], tel:[phone] [facility] No Information 8 Jennifer Abbott. [address] [place] [address], [facility], . tel:[phone] Office/outpa tient visit,new, mod [facility] [place], [facility] [place], [facility], tel:[phone] [facility] No Information 8 Jennifer Abbott. [address] [place] [address], [facility], . tel:[phone] Family History Family Member Type Diagnosis Age At Onset Mother Problem (finding) Hypertension Father Problem (finding) Congenital heart diseas e Father Problem (finding) Hypertension Father Problem (finding) Thyroid disorder Father Problem (finding) Hyperlipidemia Mother Problem (finding) Cancer Father Problem (finding) Stroke Sister Problem (finding) Cancer Sister Problem (finding) Hypertension Payers Payer name Insurance type Covered republican ID Missael rivers(s) Medicare [place] MB [id number] [employer] Senior Supplemental - AESSI CI [id number] Social History Type Description Quantity Date Captured Comments Alcohol Use Details Unknown Caffeine Use Details Unknown Tobacco Use Status No Information Smoking Status No Information Sex Female Chief Complaint And Reason For Visit No Information Reason For Referral Reason For Referral No Information Plan Of Treatment Date Type Action Status Future Order: Radiology Order MR I Lumbar Spine WO Contrast ([id number]), Ordered on: Ordered History Of Present Illness [...]
--- OUTSIDE RECORDS SUMMARY | 2024-11-24 14:26 | XMS_ITS | Encounter Summary ---
Author Organization [place] [address] Care Team Providers Care Machine Skiver Name Role Phone Carlos Manuel Barragan Primary Care Provider [phone] Encounter Details Date Type Department Care Team (Late st Contact Info) Description 11/07/2020 Lab Requisition [facility] [place] [id number] Adali Jacinto MD [address] [place] [id number] Malignant neoplasm of unspecified site of left [...] 10:15 AM EDT Office Visit [facility] [address] [place] [id number] Nikolas Jha DPM [address] [place] [address] documented as of this encounter Goals Goal [...] (HCC) documented in this encounter Results * [facility] (11/07/2020 1:32 PM EDT) CASE REPORT Surgical Pathology Report Case: [id number] Authorizing Provider: Adali Jacinto MD Collected: 11/07/2020 1332 Ordering Location: [facility] Received: 11/07/2020 1332 Pathologist: Adali Jacinto MD Specimen: Breast, Left, Request for case [id number] 1A & 1B blocks for Breast Cancer Index. 11/30/2020 9:57 AM EDT [facility] FINAL DIAGNOSIS Breast Cancer Index report will be reported in an addendum. 11/30/2020 9:[address] [facility] at 1339 EDT EMBEDDED IMAGES 11/30/2020 9:57 AM EDT [facility] ADDENDUM Refer to Scanned [facility] Breast Cancer Index report. 11/30/2020 9:57 AM EDT [facility] Addendum electronically signed by Adali Jacinto MD on 11/30/2020 at 0957 EDT Tissue LEFT BREAST STRUCTURE / Unknown 11/07/2020 1:32 PM EDT 11/07/2020 1:32 PM EDT Adali Jacinto MD PATHOLOGY ORDERABLES Edited Resu lt - Final [facility] [address] [place] [address] documented in this encounter Visit Diagnoses Diagnosis Malignant neoplasm of unspecified site of left female breast (HCC) documented in this encounter Additional Health Concerns Assessment Noted Time A fall risk assessment has been complete d for the patient 04/26/2019 3:55 PM EST documented as of this encounter Care Teams Machine Skiver Relationship Specialty Start Date End Date Carlos Manuel Barragan [facility] [address] [place] [id number] PCP - General 07/03/10 documented as of this encounter
--- OUTSIDE RECORDS SUMMARY | 2024-11-24 14:26 | XMS_ITS | Clinical Summary ---
Author Organization [facility] Address [address] [facility] [address] Phone Care Team Providers Care Occupational Health Nursing Director Name Role Phone Bassem Barragan Primary Care Provider [phone] Social History Tobacco Use Types Packs/Day Years [...] Tdap) 1962 Mammogram Screening 1991 Colonoscopy 1996 Pneumococcal 50+ (1 of 1 - PCV) 2001 Shingrix (#1) 2001 DEXA Scan 2016 Influenza Vaccine (Season Ended) 2025 RSV Vaccine (60+ or ) (1 - [...] age to complete this topic Care Teams Occupational Health Nursing Director Relationship Specialty Start Date End Date Bassem Barragan [address] [place] [address] PCP - General 06/29/10
--- OUTSIDE RECORDS SUMMARY | 2024-11-24 14:26 | XMS_ITS | Clinical Summary ---
Author Organization Healthcare Address [address] [place] [address] Care Team Providers Care Health And Physical Education Professor Name Role Phone Pcp, No Primary Care [...] (2 of 3) 08/18/2014 06/23/2014 [facility]-Pneumococcal Vaccine: 50+ Years (2 of 2 - PCV) 07/21/2021 07/21/2020 XOU-CSBKY-50 Vaccine ( - season) 2024 03/19/2021, 06/13/2020, 05/16/2020 [facility]-Bone Density Scan 06/20/2024 06/20/2022 , 06/20/2022, 04/19/2019, Additional history exists [facility]-DTaP,Tdap,and Td Vaccines (2 - Td or Tdap) 06/23/2024 06/23/2014, 07/29/1996 [facility]-Influenza Vaccine (#1) 2025 01/25/2021 [facility]-RSV Vaccine: 60+ Years or (1 - 1-dose 75+ series) 2026 [facility]-Hepatitis A Vaccines Aged Out 08/18/2018, 01/25 No longer eligible based on patient's age to complete this topic [facility]-Breast Cancer Screening Discontinued 05/2023, 09/06/2014, 09/03/2013, Additional history exists HPV Vaccines Aged Out No longer eligi ble based [...] age to complete this topic [place] [address] [employer] Care Teams Health And Physical Education Professor Relationship Specialty Start Date End Date Rj, [place] [address] PCP - General Family Medicine 11/24/23
--- OUTSIDE RECORDS SUMMARY | 2024-11-24 14:26 | XMS_ITS | Clinical Summary ---
Author Organization [facility] Address [address] [place] [address] Care Team Providers Care Balance Wheel Arm Burnisher Name Role Phone Unavailable Primary Care Provider Unavailabl e Source Comments This information has been disclosed to you from confidential records protectedfrom disclosure by state law. You shall make no further disclosure of thisinformation without the specific, written, and informed release of theindividual to whom it pertains, or as otherwise permitted by law. A generalauthorization for the release of medical or other information is not sufficientfor the purposes of therelease of HIV test results or diagnoses. [id number] Health Encounters Date Type Department Care Team Description 11/17/2024 Orders Only [facility] [address] [place] [address] Charles Smith MD Neoplasm of uncertain behavior of skin (Primary Dx) from Last 3 Months Social History Tobacco Use Types Packs/Day Years Used Date Smoking Tobacco: Never Assessed Comments Unknown Sex and Gender Information Value Date Recorded Sex Assigned at Not on file Legal Sex Female 10:00 AM EST Gender Identity Not on file Sexual Orientation Not on file Plan of Treatment Not on file Procedures Procedure Name Priority Date/Time Associated Diagnosis Comments SKIN / NAIL BIOPSY Routine 11/16/2024 12 :00 AM EDT Neoplasm of uncertain behavior of skin from Last 3 Months Results * Skin / nail biopsy (11/16/2024 12:00 AM EDT) 11/16/2024 11/17/2024 Narrative [facility] - 11/16/2024 12:00 AM EDT CASE: [id number] PATIENT: DIAMANTE EDOUARD Clinical Impression: ISK Site(s): L upper back CPT Code(s): 30383 X 1 Diagnosis: Inflamed seborrheic keratosis. Microscopic Exam: There is hyperkeratosis, papillomatosis, acanthosis and a lymphocytic infiltrate in the superficial dermis. There is no atypia. Gross Description: A specimen of skin was received measurin x 8 x 2 mm Final Diagnosis performed by ANTONIO PRADO MD Electronically signed 11/18/2024 12:11:17 PM The Pathologist signing this report is located at [facility], [address] [place] [address], [id number], , CLIA ID: [id number] Charles Smith MD DERM PROCEDURE ORDERABLES Final Result [facility] from Last 3 Months Insurance AET[employer] SUPPLEMENTAL MEDICARE
--- OUTSIDE RECORDS SUMMARY | 2024-11-24 14:26 | XMS_ITS | Encounter Summary ---
Author Organization [facility] Address [facility] [place] [address] Care Team Providers Care Steel Estimator Name Role Phone Unavailable Primary Care Provider Unavailabl e Source Comments This information has been disclosed to you from confidential records protectfrom disclosure by state law. You shall make no further disclosure of thisinformation without the specific, written, and informed release of theindividual to whom it pertains, or as otherwise permitted by law. A generalauthorization for the release of medical or other information is not sufficientfor the purposes of the release of HIV test results or diagnoses. [id number] Health Encounter Details Date Type Department Care Team (Late st Contact Info) Description 11/17/2024 Orders Only MEDICAL SCIENCE BUILDING [address] [place] [address] [place] [address] [place] [address] Neoplasm of uncertain behavior of skin (Primary Dx) Social History Tobacco Use Types [...] EDT Neoplasm of uncertain behavior of skin documented in this encounter Results * Skin / nail biopsy (11/16/2024 12:00 AM EDT) 11/16/2024 11/17/2024 Narrative [facility] - 11/16/2024 12:00 AM EDT CASE: [id number] PATIENT: DIAMANTE EDOUARD Clinical Impression: ISK Site(s): L upper back CPT Code(s): 32222 X 1 Diagnosis: Inflamed seborrheic keratosis. Microscopic Exam: There is hyperkeratosis, papillomatosis, acanthosis and a lymphocytic infiltrate in the superficial dermis. There is no atypia. Gross Description: A specimen of skin was received measurin x 8 x 2 mm Final Diagnosis performed by ANTONIO PRADO MD Electronically signed 11/18/2024 12:11:17 PM The Pathologist signing this report is located at [facility], [address] [place] [address], [address], , CLIA ID: [id number] Charles Smith MD DERM PROCEDURE ORDERABLES Final Result [facility] documented in this encounter Visit Diagnoses Diagnosis Neoplasm of uncertain behavior of skin- Primary documented in this encounter
--- OUTSIDE RECORDS SUMMARY | 2024-11-24 14:26 | XMS_ITS | Referral Summary ---
Author Organization [facility] Address [address] [facility] [address] Phone Care Team Providers Care Ventilation Equipment Tender Name Role Phone Bassem Barragan Primary Care Provider [phone] Social History Tobacco Use Types Packs/Day Years Used Date Smoking Tobacco: Never Assessed Comments Unknown Sex and Gender Information Value Date Recorded Sex Assigned at Not on file Legal Sex Female 5:01 PM EDT Gender Identity Not on file Sexual Orientation Not on file Plan of Treatment Not on file Care Teams Ventilation Equipment Tender Relationship Specialty Start Date End Date Bassem Barragan [address] [place] [address] PCP - General 06/29/10
--- OUTSIDE RECORDS SUMMARY | 2024-11-24 14:26 | XMS_ITS ---
Author Organization [facility] [place] [address] Phone Care Team Providers Care Product Support Sales Representative Name Role Phone Carlos Manuel Barragan Primary Care Provider Active Problems Problem Noted Date Diagnosed Date [...] at this time (not sufficient tissue) Current Treatment and Therapy Plans No current plan information found. Past Treatment and Therapy Plans No past plan information found. Treatment Summaries Breast cancer (HCC)* Cancer Treatment Plan and Summary Provided by [facility] General Information Patient name Juany Alarcon (home) [phone] (work) Date of 1950 Age 65 y.o. Care Team Medical Oncologist N/A Surgeon Dr Steven Crouch Radiation Oncologist N/A Primary Care Physician Carlos Manuel Barragan, Gynecologic Oncologist N/A Cancer Diagnosis Information Diagnosis date 02/09/2015 Diagnosis and Staging information Invasive Lobular Carcinoma - Stage 2 Tumor markers Estrogen Receptor (ER) positive; Progesterone Receptor (AZ) positive; HER2 negative. Location of recurrence N/A [...] as directed by your physician at the [place] or [facility]. ??? Radiation Oncologist: Follow up every 6 months for two visits and then annually or as directed by your Radiation Oncologist at [facility] where you received your treatment or as directed. ??? Oncologist: as directed by Medical Oncologist at the the center where you received your treatment or as directed by your doctor. ??? Primary Care: Follow up annually. ??? Gis Specialist: Follow up annually or as directed by Gis Specialist. Diagnostic Testing ??? Mammogram: Diagnostic imaging should [...] with your body,see your regular doctor, physician front end assistant, or nurse practitioner. If what you [...] 4-week smoking cessation program developed by the [employer] and offered to you by [facility]. This program is designed to [...] dietary needs that you may have. The [employer] and the [employer] have developed similar diet [...] [facility] Nurse Navigator ???s [facility] [place] [facility] [place] [facility] [phone] [employer] [phone]-[phone] www.cancer.org Managecancer.org Managecancer.org provides links to resources that offer financial assistance for those dealing withcancer. Medical bills, medications, legal issues, travel and accommodation costs for treatment and education and employment issues that can create financial hardships. The following resources will help in lightening the financial burden of life with cancer. Cancer Support Community [place], [place]. [phone] [facility] [phone] www.cancersupportbaring.org Backed by evidence that the best cancer care includes social and emotional support, [facility] offers morethan 250 free programs and services each month that are intended to provide non-medical care to individuals and families to support a holistic, patient-active approach to wellness. Cancer Family [facility] [phone] www.cancerfamilycare.org
--- OUTSIDE RECORDS SUMMARY | 2024-11-24 14:26 | XMS_ITS | Clinical Summary ---
Author Organization [facility] Address [address] [place] [address] Phone Care Team Providers Care Dry Press Operator Helper Name Role Phone Carlos Manuel Barragan Primary Care Provider [phone] Allergies Active Allergy Reactions Criticality Noted Date [...] Oral Tablet Take by mouth daily. Active acyclovir (ZOVIRAX) 800 mg Oral Tablet 05/12/2024 Active diclofenac (VOLTAREN) 75 mg Oral Tablet, Delayed Release (E.C.) 04/26/2024 Active Active Problems Problem Noted Date Diagnosed [...] Encounters Date Type Department Care Team Description 09/27/2024 11:20 AM EDT Ancillary Procedure [facility] [address] [place] [address] Nikolas Jha DPM Left foot pain 09/27/2024 10:30 AM EDT Office Visit [facility] [address] [place] [address] Nikolas Jha DPM Hallux valgus with bunions of left foot (Primary Dx); Metatarsus primus varus; Bunionette of left foot; Hammer toe of left foot; Right foot pain; Acquired hammer toe; Left foot pain from Last 3 Months Surgical History Surgery Date Site/Laterality Comments CHOLECYSTECTOMY TONSILLECTOMY COLONOSCOPY WISDOM TOOTH EXTRACTION TOTAL KNEE ARTHROPLASTY 05/26/2008 - 05/25/2009 Right FOOT SURGERY 10/05/2010 Left hammertoes BREAST BIOPSY 02/07/2015 Left x 4 lymph nodes removed BREAST SURGERY 06/02/2015 Left Left BREAST RECONSTRUCTION 1ST STAGE WITH EXPANDERS ; Surgeon: Flaco Damon MD; Location: [facility] MAIN OR; Service: General Medical devices from this surgery are in the Medical Devices section. BREAST BIOPSY 03/03/2015 Left BREAST RECONSTRUCTION 11/16/2015 Breast/Left LEFT BREAST STAGE 2 RECONSTRUCTION WITH IMPLANT RIGHT BREAST REDUCTION FOR SYMMETRY ; Surgeon: Flaco Damon MD; Location: [facility]; Service: Plastics Medical devices from this surgery are in the Medical Devices section. BREAST REDUCTION SURGERY 11/16/2015 Breast/Right Surgeon: Flaco Damon MD; Location: [facility]; Service: Plastics Medical devices from this surgery are in the Medical Devices section. CARPAL TUNNEL RELEASE 02/12/2018 Bilateral BILATERAL CARPAL TUNNEL RELEASE ; Surgeon: Francisco Javier Lepe MD; Location: [facility]; Service: Hand TOTAL KNEE ARTHROPLASTY 09/29/2018 Knee/Left LEFT TOTAL KNEE ARTHROPLASTY; Surgeon: Brian Newman MD; Location: [facility] OR; Service: Orthopedics Medical devices from this surgery are in the Medical Devices section. VASCULAR SURGERY 04/26/2022 TVAR VASCULAR SURGERY 05/15/2022 Right right bracial artery cutdown and exploration, kelley thromboectomy TOE FUSION 03/22/2024 Foot/Ankle/Left first metatarsophalangeal joint fusion left foot.fifth metatarsal osteotomy left foot.left fourth and fifth hammertoe repair.; Surgeon: Nikolas Jha DPM; Location: [facility]; Service: Podiatry Medical devices from this surgery are in the Medical Devices section. TOE SURGERY 03/22/2024 Foot/Ankle/Left Surgeon: Nikolas Jha DPM; Location: [facility]; Service: Podiatry Medical devices from this surgery are in the Medical Devices section. HAMMER TOE SURGERY 03/22/2024 Foot/Ankle/Left Surgeon: Nikolas Jha DPM; Location: [facility]; Service: Podiatry Medical devices from this surgery are in the Medical Devices section. TOENAIL EXCISION SECTION 04/01/1991 JOINT REPLACEMENT CORRECTION HAMMERTOE You have on file Medical History Medical History Date Comments Hypertension [...] 02/2024 Bunionette of left foot 02/2024 Prediabetes BEINTEZ (dyspnea on exertion) 10/2023 starte d on beta elpidio, resolved 01/2024 Lumbar disc disease Aortic aneurysm stent placed 2021 - [facility] [place] Hammer toe Bunion Family History Medical History Relation Name Comments Defects Brother W.B. Heart Failure Father Thyroid Disease Father Cancer Mother Yvetta uterus Ovarian Cancer Mother Yvetta Breast Cancer Sister 1 Laine High Blood Pressure Sister 1 Laine Cancer Sister 2 Agustina Breast cancer High Blood Pressure Sister 2 Agustina Anesth Problems Neg Hx Relation Name Status Comments Brother W.B. Father Mother Yvetta Sister 1 Laine Alive Sister 2 Agustina Alive Social History Tobacco Use Types Packs/Day [...] Pulse 70 03/22/2024 12:30 PM EDT Temperature 36.8 C (98.2 F) 09/27/2024 10:37 AM EDT Respiratory Rate 16 03/22/2024 12:30 PM EDT Oxygen Saturation 100% 03/22/2024 12:30 PM EDT Inhaled Oxygen Concentration - - Weight 85.5 kg (188 lb 9.6 oz) 09/27/2024 10:37 AM EDT Height 167.6 cm (5' 6 ) 09/27/2024 10:37 AM EDT Body Mass Index 30.44 09/27/2024 10:37 AM EDT Plan of Treatment Upcoming Encounters Date Type Department Care Team (Late st Contact Info) Description 02/03/2025 10:15 AM EDT Office Visit [facility] [place] [address] [place] [address] Nikolas Jha DPM [address] [place] [address] Health Maintenance Due Date Last Done Comments Wellness Exam Medicare 1953 Hepatitis C Screening 1969 Cologuard 1996 FIT 1996 Sigmoidoscopy 1996 Virtual Colonography 1996 DTaP/TDaP/Td (1 - Tdap) 07/30/1996 07/29/1996 Zoster (3 of 3) 04/10/2020 02/14/2020, 03/16/2019 COVID-19 Vaccine ( season) 2024 03/27/2022, 03/19/2021, 06/13/2020, Additional history exists Colon Cancer Screening 01/18/2025 Colonoscopy 01/18/2025 01/18/2015 (Prev iously completed) Influenza Vaccine (#1) 2025 4, 04/09/2023, 02/28/2022, Additional history exists Breast Cancer Screening 08/24/2025 08/25/19 24, 06/20/2022, 04/24/2021, Additional history exists Pneumococcal Vaccine 50+ Completed 02/28/2022, 06/27 Bone Density Screening Completed 3, 06/20/2022, 04/19/2019, Additional history exists Hepatitis B Vaccine Aged Out No longe r eligible based on patient's age to complete this topic Meningococcal B Vaccine Aged Out No l onger eligible based on patient's age to complete this topic Goals Goal Patient Goal Type Associated Problems Recent Progress Patient-Stated? Author Breast Health Breast Health On track( 021 9:11 AM EDT) No Maisha Kirk, CRISTOBAL Note: Patient will be compliant with monthly Self Breast Exams and is aware of to who to contact for any unusual or concerning findings. [facility] No Alexia Kim RN Note: Patient will be compliant with monthly Self Breast Exams and is aware of to who to contact for any unusual or concerning findings. Medical Devices Implanted Type [employer] Director Device Identifier Shelf Expiration Date Model / Serial / Lot Right Hip Replacement Right Knee Replacement Wire Kanchan .045 X 6 Style-1 Sterile - [id number] Implanted:Qty: 1 on 10/05/2010 at [facility] Left: Tongue SIVAN:SIVAN 02/24/2020 [id number] 0 / / [id number] Wire Kanchan .045 X 6 Style-1 Sterile - [id number] Implanted:Qty: 1 on 10/05/2010 at [facility] Left: Toe SIVAN:SIVAN 03/26/2020 [id number] 0 / / [id number] Art Glass Setter Tissue Breast Cpx4 Low Height Style 8100 550cc - [id number] Implanted:Qty: 1 on 06/02/2015 by Dany Crouch MD at [facility] Left: Breast MENTOR[facility] [id number] 09/22/2018 [id number] / [id number] / [id number] Implant Breast Memory Shape Moderate Med Height 530cc - [id number] Implanted:Qty: 1 on 11/16/2015 by Flaco Damon MD at [facility] Left: Breast MENTOR:KALEIGH FLEMING PRDT 02/23/2018 [id number] / [id number] / [id number] Femur Persona Ps Porous Standard Size 5 Left - [id number] Implanted:Qty: 1 on 09/29/2018 by Brian Newman MD at [facility] Left: Knee SIVAN:SIVAN 07/30/2028 [id number] 1 / [id number] Component Tibia Cemented Stemmed Persona 5 Degree Lft Sz E - [id number] Implanted:Qty: 1 on 09/29/2018 by Brian Newman MD at [facility] Left: Knee SIVAN:SIVAN 06/01/2028 [id number] / / [id number] Surface Articular Ps Fixed Persona Left 10mm (Fem 3-5tibef) - [id number] Implanted:Qty: 1 on 09/29/2018 by Brian Newman MD at [facility] Left: Knee SIVAN:SIVAN 04/01/2023 [id number] 0 / / [id number] Cement Bn Refobacin St Latex Free Disposable - [id number] Implanted:Qty: 1 on 09/29/2018 by Brian Newman MD at [facility] Left: Knee SIVAN:SIVAN 06/01/2020 [id number] / / [id number] Patella All Poly Cemented Persona 32mm 8.5mm Thickness - [id number] Implanted:Qty: 1 on 09/29/2018 by Brian Newman MD at [facility] Left: Knee SIVAN:SIVAN 06/01/2026 [id number] 2 / [id number] Extension Stem Persona Tapered Cemented 14mm +30 - [id number] Implanted:Qty: 1 on 09/29/2018 by Brina Newman MD at [facility] Left: Knee SIVAN:SIVAN 07/30/2028 [id number] 4 [id number] Pin Drill 1.4e743sm Tip Trim-It F/Shldr Impl Dlv Sys - [id number] Implanted:Qty: 1 on 03/22/2024 by Nikolas Jha DPM at [facility] Left: Foot ARTHREX 05/25/2025 [id number] / / [id number] Screw 3.0mm X 14mm Kreulock Titanium - [id number] Implanted:Qty: 2 on 03/22/2024 by Nikolas Jha DPM at [facility] Left: Foot ARTHREX [id number] / / Screw 3.0mm X 18mm Kreulock Titanium - [id number] Implanted:Qty: 1 on 03/22/2024 by Nikolas Jha DPM at [facility] Left: Foot ARTHREX [id number] / / Screw 3.0mm X 16mm Kreulock Titanium - [id number] Implanted:Qty: 2 on 03/22/2024 by Nikolas Jha DPM at [facility] Left: Foot ARTHREX [id number] / / Screw Lp 3.0mm X16mm Cortical Mtp Ti - [id number] Implanted:Qty: 1 on 03/22/2024 by Nikolas Jha DPM at [facility] Left: Foot ARTHREX AR-9933-16 / / Plate Maxforce Mtp 0-0 Petite Left - [id number] Implanted:Qty: 1 on 03/22/2024 by Nikolas Jha DPM at [facility] Left: Foot ARTHREX [id number] / / Procedures Procedure Name Priority Date/Time Associated Diagnosis Comments XR FOOT LEFT AP LATERAL AND OBLIQUE STANDING Routine 09/27/2024 1:03 PM EDT Left foot pain MM MAMMO DIGITAL VANNESA SCREEN RIGHT Routine 08/25/2023 1:12 PM EDT Encounter for screening mammogram for malignant neoplasm of breast DX BONE DENSITY AXIAL SKELETON Routine 06/20/2022 12:58 PM EST History of breast cancer Post-menopausal long-term (current) use of aromatase inhibitors from Last [...] us Nikolas Jha DPM IMG DIAGNOSTIC IMAGING MARYCb WOMACK Final Result * MM MAMMO DIGITAL VANNESA SCREEN RIGHT (08/25/2023 1:12 PM EDT) Anatomical Region Laterality Modality Breast Right Mammography 08/25/2023 2:36 PM EDT Impressions 08/25/2023 2:36 PM EDT Negative ([id number]-[id number]-6) ~ RECOMMENDATION: Routine screening mammogram in 1 [...] the next mammogram, in accordance with the [place] [employer] and the Society of Breast Imaging recommendations. Narrative 08/25/2023 2:36 PM EDT Procedure:MM MAMMO DIGITAL VANNESA SCREEN RIGHT ~ Reason for exam: history of breast cancer, conservation therapy. Z12.31-Encounter for screening mammogram for malignant neoplasm of khlhga-CUU-70-CM ~ MM MAMMO DIGITAL VANNESA SCREEN RIGHT [...] for screening mammogram for malignant neoplasm of btophy-NJY-62-CM ~ MM MAMMO DIGITAL VANNESA SCREEN RIGHT CC and MLO view(s) were taken of the right breast. There are scattered fibroglandular densities. Prior study comparison: Compared with prior studies the most recentbeing 06/20/22, 04/24/21 Status post LEFT mastectomy. Status post reduction mammoplasty RIGHT breast. No new mass, distortion, or suspicious calcification. ~ IMPRESSION: Negative (FLC-Kccsekxc-8) ~ RECOMMENDATION: Routine screening mammogram in 1 [...] the next mammogram, in accordance with the [place] [employer] and the Society of Breast Imaging recommendations. Carlos Manuel Barragan [facility] MAMMOGRAPHY ORDERABLES Iliana buck Result * DX BONE DENSITY AXIAL SKELETON (06/20/2022 12:58 PM EST) Anatomical Region Laterality Modality Dexa Scan 06/20/2022 Narrative 06/20/2022 4:08 PM EST Indication: The patient is a female age 65 or older who requires a bone density assessment. Study was performed on [employer] 5. Bone Density: Region BMD T-score Z-score Femoral Neck (Left) 0.780 -0.6 1.2 Total Hip (Left) 0.941 0.0 1.6 1/3 Radius (Left) 0.589 -1.7 0.4 World Health Organization criteria for BMD interpretation [...] 10-year Fracture Risk: FRAX not reported because: All T-scores for Spine Total, Hip Total, Femoral Neck at or above -1.0 Previous Exams: Region Date Age BMD T-score BMD Change Total Hip(Left) 06/20/2022 72 0.941 0.0 -0.5% 04/19/2019 68 0.947 0.0 -1.4% 05/17/2016 66 0.960 0.1 05/28 Forearm(Left) 06/20/2022 72 0.589 -1.7 -0.7% 04/19/2019 68 0.593 -1.7 -9.1%* 05/17/2016 66 0.653 -0.7 *Denotes significance at 95% confidence level, LSC for AP Spine = 0.032g/cm2, LSC for Total Hip = 0.024 g/cm2, LSC for Distal 1/3 Radius = 0.026 g/cm2, site specific LSC for Total Hip = 0.022 g/cm2 BMD is shown in g/cm2 and BMD [...] last exam. Reported by: Alexia Verdin PA-C, [facility], CCD on 06/20/2022 1:56:00 PM. Dany Crouch MD IMG DEXA ORDERABLES Final R esult from Last 3 Months or Most Recently Relevant to Health Maintenance Insurance [place]ICARE [place] A [place] AETNA SENIOR SPPLM[place]L INS Advance Directives For more information, please contact: [phone] * Full Code (Latest Code Status on File) Date Activated Date Inactivated Comments 09/29/2018 11:55 AM 10/02/2018 4:47 PM * Full Code Date Activated Date Inactivated Comments 06/02/2015 5:38 PM 06/03/2015 6:37 PM Care Teams Dry Press Operator Helper Relationship Specialty Start Date End Date Carlos Manuel Barragan [address] [facility] [address] [place] [id number] PCP - General 07/03/10
--- OUTSIDE RECORDS SUMMARY | 2024-11-24 14:27 | XMS_ITS | Patient Health Record ---
[facility] Organization [facility] Address [address] [id number] Care Team Providers Care Wildlife Management Professor Name Role Phone Carlos Manuel Barragan Primary Care Provider Rafael Barajas Unavailable [phone] Nettie Godinez Unavailable [phone] Allergies Allergen (clinical drug ingredient) Drug/Non Drug [...] PM Interpretation: Performing Lab: Notes/Report: Result: Neg CBC Fingerstick (in house) Reviewed date:02/23/2024 07:57:39 [...] - 38 plat 184 100 - 400 Medications Medication SIG (Take, Route, Frequency, Duration) Notes Start Date End Date Status Diclofenac Sodium 75 MG 1 tablet as needed Orally Twice a day Active Asmanex HFA 50 MCG/INH DIRECTED INHALED 2 TIMES A DAY *Please review and pick correct strength-formulatio n from MiaSol[employer] options. If intended option is not shown, discontinue and re-order from Quick Search* Active Potassium Chloride ER 1 P.O. Q DAY *Please review and pick correct strength-formulatio n from M[employer] options. If intended option is not shown, discontinue and re-order from Quick Search* Active Vitamin D3 50 MCG (2000 UT) 1 cap(s) orally once a day Active Fluticasone Propionate 50 MCG/ACT 1 spray(s) in each nostril once a day; Duration: 30 day(s) 05/28/2022 Active Montelukast Sodium 10 MG 1 tab(s) orally once a day; Duration: 90 days Active Valsartan 160 MG 1 tablet Orally Once a day; Duration: 30 day(s) Active Metoprolol Succinate 50 MG 1 capsule Orally Once a day; Duration: 30 day(s) Active Aspir-Low 81 MG 1 tab(s) orally once a day; Duration: 30 day(s) Active ZyrTEC Allergy 10 MG 1 tab(s) orally once a day; Duration: 30 day(s) Active Crestor 10 MG 1 tab(s) orally once a day (at bedtime) Active Immunizations Vaccine Route Administration Date Status Comme nts Shingrix Unknown 02/14/2020 Administered Hepatitis A (adult) IM Intramuscular 02/17/2018 [...] Administered COVID 19 Moderna Unknown 03/19/2021 Administered Fluzone High Dose (65yr and older) IM Intramuscular 04/09/2023 Administered Shingrix Unknown 02/14/2020 Administered Shingrix IM Intramuscular 03/16/2019 Administered PNEUMOVAX 23 VACCINE IM Intramuscular 07/21/2020 Administe red Prevnar (PCV20) IM Intramuscular 02/28/2022 Administered Problems Problem Type SNOMED Code ICD Code Onset Dates Problem Status W/U Status Risk Notes Problem Malignant neoplasm of female breast (369179144) Malignant neoplasm of unspecified site of left female breast (C50.912) Active confirmed Problem Vitamin D deficiency (89682504) Vitamin D deficiency (E55.9) Active confirmed Problem Essential hypertension (64686117) Essential hypertension (I10) Active confirmed Problem Obstructive sleep apnea syndrome (disorder) (03579943) Obstructive sleep apnea (adult) (pediatric) (G47.33) Active confirmed Problem Gastroesophageal reflux disease without esophagitis (596252030) Gastroesophageal reflux disease without esophagitis (K21.9) Active confirmed Problem Allergic rhinitis (49367607) Allergic rhinitis (J30.9) Active confirmed Problem Osteoarthritis of knee (752450323) Primary osteoarthritis of left knee (M17.12) Active confirmed Problem Dyslipidemia (954128312) Dyslipidemia (E78.5) Active confirmed Problem History of left mastectomy (211591008) Status post left mastectomy (Z90.12) Active confirmed Problem Seasonal allergic rhinitis (393759698) Seasonal allergic rhinitis, unspecified allergic rhinitis trigger (J30.2) Active confirmed Problem Oropharyngeal dysphagia (99200664) Oropharyngeal dysphagia (R13.12) Active confirmed Problem History of aortic aneurysm (544505330) History of aortic aneurysm (Z86.79) Active confirmed Problem 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 Vital Signs Heart Rate 95 /min 08/18/2024 Blood pressure diastolic 60 mm Hg 08/18/2024 Height 64.50 in 08/18/2024 Blood pressure systolic 110 mm Hg 08/18/2024 Weight 190.2 lbs 08/18/2024 BMI 32.14 kg/m2 08/18/2024 Encounters Encounter Location Date Provider Diagnosis [facility] [address] [facility] [facility] [address] [facility] [address] [place], [place] [id number] 12/18/2023 Carlos Manuel Barragan Seasonal allergic rhinitis, unspecified allergic rhinitis trigger J30.2 [facility] [address] [facility] [address] [place], [place] [id number] 02/23/2024 Nettie Godinez Otitis media H66.90 [facility] [address] [facility] [address] [facility] [address] [place] [id number] 03/11/2024 R Bassem Barragan Encounter for immunization Z23 [place] [address] [facility] [address] [facility] [address] [place] [id number] 08/18/2024 Rafael Barajas Influenza A J10.1 [place] [address] [facility] [address] [facility] [address] [place] [id number] 02/23/2024 R Bassem Barragan Otitis media H66.90 [place] [address] [facility] [address] [facility] [address] [place] [id number] 04/20/2024 R Bassem Barragan Assessments Encounter Date Diagnosis (ICD Code) Assessment Notes Treatment Notes Treatment Clinical Notes Section Notes 12/18/2023 Seasonal allergic rhinitis, unspecified allergic rhinitis trigger (ICD-10 - J30.2) 02/23/2024 Otitis media (ICD-10 - H66.90) fluids, rest, supportive measures for fever/symptom relief 03/11/2024 Encounter for immunization (ICD-10 - Z23) 08/18/2024 Influenza A (ICD-10 - J10.1) fluids, rest, supportive measures for fever/symptom relief 02/23/2024 Otitis media (ICD-10 - H66.90) Plan Of Treatment No Information Insurance Providers Payer Name Payer Address Payer Phone Subscriber Number Group Number Insured Name Patient Relationship to Insured Coverage Start Date Coverage End Date MEDICARE PART [place] [address] [address] [place] [address] [id number] DIAMANTE EDOUARD Self - patient is the insured [employer] [address] [address] [place] [address] [id number] DIAMANTE EDOUARD Self - patient is the insured Medications Administered Medication Instructions Date of Administration Dosage Notes Depo- Medrol 40 mg/ml 04/23/2011 1 mL Dexamethasone 04/20/2018 1 mL Dexamethasone 05/21/2016 1 mL Dexamethasone 09/11/2015 1 mL Dexamethasone 04/08/2014 1 mL Dexamethasone 06/08/2013 1 mL Dexamethasone 06/04/2013 Dexamethasone 09/02/2008 1 mL Depo- Medrol 40 mg/ml 03/22/2011 1.5 mL Dexamethasone 09/25/2006 1 mL Dexamethasone 10/24/2007 1 mL Dexamethasone 07/29/2008 1 mL Dexamethasone 04/11/2009 1 mL Dexamethasone 06/27/2009 1 mL Dexamethasone 08/10/2009 1 mL Dexamethasone 06/28/2019 1 mL Dexamethasone 04/28/2018 1 mL Medical (General) History Medical History History ICD Code KNEE TORN MENISCUS (2005) allergic rhinitis Hypertension Left breast cancer, Dx: 2015, Grade 1 lo bular carcinoma Declined pneumonvax - 02/2016 DIOGENES - CPAP use dyslipidemia Saccular aneurysm of descending thoracic aorta, 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 Muse 04/26/2022 RT Brachial Artery Thrombectomy- Dr. Leon cedeno 05/15/2022 Hospitalization History Reason Date(Month/Year) Cough, Congestion- [facility] 07/14/2017 Dehydration 08/2006
--- NOTE | 2024-11-24 14:38 | EXP.PAIN.SOA ---
[facility] Disclaimer: The information contained in this section may have been updated after the patient was seen, as this information can be updated by other users. Medical History (Updated 11/24/24 @ 14:41 by Deepika Gonzalez APRN) Hypertension Arthritis Hyperlipidemia Surgical History History of bilateral knee replacement Family History Other No significant family history Social History Smoking Status: Never smoker second hand exposure: No alcohol intake: never substance use type: denies use current occupational status: retired Travel in the last 8 weeks?: None household members: spouse housing: house current occupation: [employer] current occupational exposures/hazards: No caffeine: Yes PM Subjective & Objective Subjective Subjective:: Patient is a pleasant 74-year-old female who presents today for worsening pain. Today she rates her pain 10 out of 10. She denies any falls or injuries. Patient did go on her trip and did overall well except coming back she has been having extreme pain all along her low back and left groin area. Patient also had increased pain in her knee on that same side. Patient states that she question whether or not if it had to do with her previous knee replacement so she did go to that physician who did believe it was more related to her back. Patient states the pain is constant with prolonged sitting or laying down. She states she cannot even turn on her left side due to the worsening pain. She states it is interfering with her ability to perform activities of daily living such as cooking and cleaning. Patient is interested in any help that we may be able to provide. She states the pain is unbearable. Patient is having to adjust her activity based off of this. Patient does state that the physician did send in a prescription of methocarbamol 1000 mg and that this is helping a little. Patient had been prescribed Flexeril 5 mg at bedtime, and compounded cream from our office. Her Jose Miguel has been reviewed and is appropriate. Review of Systems: General: No recent weight changes, no fever, no sleep disturbances Respiratory: No cough, no shortness of air, no recurring pulmonary infections Cardiovascular/peripheral vascular: No chest pain, no palpitations, no edema, no shortness of breath Gastrointestinal: No new onset incontinence, normal bowel movements reported Genitourinary: No new onset incontinence Musculoskeletal: Low back pain, left groin pain Psychiatric: [Normal mood/affect] Neurological: [Denies weakness in extremities], [denies balance issues] Pain at rest (0-10 scale): 10 Objective Objective:: Physical Exam: General: Alert and oriented x3, no acute distress, pleasant and cooperative Lungs: Respirations even and unlabored, symmetrical chest expansion Eyes: PERRL Musculoskeletal: Flexion and extension of lumbar [spine] somewhat guarded secondary to pain, [antalgic gait noted] point tenderness along left SI with positive left Nat's, Reg's, Gaenslen's, compression and distraction exam Neurological: Speech clear, no gross sensory deficit Has patient had previous pain injection?: No Conservative treatment options previously tried: Home exercise plan Length of treatment: Longer than 12 weeks Meds Home Medications and Allergies Home Medications ?Medication ?Instructions ?Recorded ?Confirmed ?Type anastrozole 1 mg tablet 1 mg PO DAILY cancer 03/30/19 10/27/24 History aspirin 81 mg tablet,delayed 81 mg PO DAILY Supplement 03/30/19 10/27/24 History release bisoprolol 5 1 each PO DAILY blood pressure 03/30/19 10/27/24 History mg-hydrochlorothiazide 6.25 mg tablet potassium chloride 20 mEq 20 meq PO DAILY Supplement 03/30/19 10/27/24 History tablet,extended release vitamin E 100 unit capsule 100 unit PO DAILY Supplement 03/30/19 10/27/24 History calcium polycarbophil 625 mg 1,250 mg PO DAILY Supplement 04/08/19 10/27/24 History tablet (FiberCon) rosuvastatin 10 mg tablet 10 mg PO DAILY Cholesterol 04/08/19 10/27/24 History metoclopramide HCl 5 mg tablet 5 mg PO ACHS GERD 08/04/20 10/27/24 History gabapentin 300 mg capsule 300 mg PO BID Pain 04/03/21 10/27/24 History oxybutynin chloride 5 mg 5 mg PO DAILY URINATION 04/03/21 10/27/24 History tablet,extended release 24 hr meloxicam 7.5 mg tablet 7.5 mg PO DAILY . #30 tabs 11/28/22 10/27/24 Rx meloxicam 15 mg tablet 15 mg PO DAILY #30 tabs 06/04/23 10/27/24 Rx camphor 3.1 %-methyl salicylate 10 1 patch topical TID 5 days #20 ea 08/18/23 10/27/24 Rx %-menthol 6 % topical patch (Salonpas) diclofenac sodium 75 mg 75 mg PO BID #60 tabs 07/19/24 10/27/24 Rx tablet,delayed release celecoxib 100 mg capsule 100 mg PO BID #28 caps 10/27/24 Rx cyclobenzaprine 5 mg tablet 5 mg PO HS PRN muscle spasm #30 10/27/24 Rx tabs New Prescriptions to Start Prescriptions: Allergies Allergy/AdvReac Type Severity Reaction Status Date / Time Penicillins Allergy Intermediate Rash Verified 12/23/23 12:16 morphine AdvReac Mild Confusion Verified 12/23/23 12:16 Assessment and Plan *Assessment and plan (1) Sacroiliitis: Status: Acute Category: Medical Code(s): M46.1 - Sacroiliitis, not elsewhere classified Plan Patient is experiencing worsening pain along the low back and left hip. They did have limited range of motion of the lumbar spine along with extreme point tenderness along left SI joints and a left bilateral Nat's, Reg's, Gaenslen's, compression and distraction exam. I did discuss with the patient that I do believe they would benefit from left SI injections. Risk and benefits were discussed with the patient and they would like to proceed forward with this option. Patient has tried and failed conservative therapy including oral medications, heat and ice, topicals, physical therapy and continued at home stretching exercise for longer than 12 weeks that was physician guided. Patient has had chronic low back pain for years. She has not had any SI injections from our office to compare to. This will be a diagnostic SI injection with less than 1 mL of solution to be injected. If he does get significant improvement we will plan on repeating the injection when his pain does return with the possibility of a SI fusion in future. Patient will be scheduled for left SI injections under fluoroscopy. Patient has been instructed to contact the clinic with any concerns before the next appointment. Dr. Partida has reviewed this note and agrees with this plan of care. This note was dictated using voice recognition software and make contain errors or omissions. All injections are used with Lidocaine or Bupivacaine and dexamethasone unless diagnostic in which no steroids are used.
[2024-11-24 15:23] VITALS: BP 134/79; PULSE 86; RESP 14; O2SAT 99; BMI 29.5
== END 2024-11-24 23:59 | disposition home or self-care (01) ==
LOC: SC.PAIN 14:23
PROVIDERS: PCP Family Medicine; Visit Provider Nurse Practitioner Family
DX: M46.1 Sacroiliitis, not elsewhere classified (principal); Z79.899 Other long term (current) drug therapy
CPT/HCPCS: 99212; G0463

== ENCOUNTER 2024-11-30 08:05 | Day surgery (SDC) | payer MEDICARE, SELFPAY ==
[2024-11-30 08:20] VITALS: BP 144/70; PULSE 72; RESP 18; O2SAT 98; BMI 29.5
[2024-11-30] MEDS: LIDOCAINE 1% 5ML PF VIAL 5 ML (08:59)
[2024-11-30] MEDS: BUPIVACAINE 0.25% 10ML INJ 25 MG IJ (09:00)
[2024-11-30 09:01] VITALS: BP 157/86; PULSE 76; RESP 18; O2SAT 94
[2024-11-30 09:08] VITALS: BP 157/86; PULSE 76; RESP 18; O2SAT 94
[2024-11-30 09:09] VITALS: BP 127/81; PULSE 73; RESP 18; O2SAT 99
--- NOTE | 2024-11-30 09:15 | EXP.PAIN.PRO ---
Procedure Date: 11/30/24 Time: 08:50 Anesthesiologist:: Balbir Knott CRNA Complications:: None Pre-procedure Diagnosis:: Left sacroiliitis Post-procedure Diagnosis:: Same Indications for Procedure:: Patient is a pleasant 74-year-old female comes our clinic today for a diagnostic only left sacroiliac joint injection of the local anesthetic. Patient describes left posterior hip pain as constant, dull, aching. Patient also reports left groin pain as well as left anterior thigh pain. She describes having difficulty transitioning from sitting to standing. She rates her pain 7/10. Procedure Details:: Procedure: Left sacroiliac injection under fluoroscopy Informed consent was obtained and the risk and benefits of the procedure were explained to the patient.~ The patient was taken to the procedure room and noninvasive monitors were placed including noninvasive blood pressure cuff and pulse oximeter.~ The patient was placed prone on the procedure table.~ The~ left hip was cleansed using Betadine as a cleansing solution.~ C-arm fluorosocpy was used to view the left SI joint.~ The skin and subcutaneous tissues were anesthetized using Lidocaine 1.5% and a 25-gauge needle.~ After this, a 22-gauge spinal needle was inserted under fluoroscopic guidance into the inferior aspect of the left SI joint.~ Omnipaque dye was injected and a good spread was seen throughout the joint.~ After this, approximately 5 mL of bupivacaine 0.25% and 3 cc of 1% lidocaine was incrementally injected into the sacroiliac joint.~ The patient tolerated the procedure well with no complications.~ The patient was observed in the Pain Clinic for a period of 30-45 minutes, then discharged home neurologically intact.~ Plan and Disposition:: Patient was reevaluated 10 minutes post procedure. She reports 100% improvement terms of her left sacroiliac joint pain. She was discharged without incident.
== END 2024-11-30 09:09 | disposition home or self-care (01) ==
LOC: SC.PAINP 08:06
PROVIDERS: PCP Family Medicine; Visit Provider Nurse Anesthetist, Certified Registered
DX: M46.1 Sacroiliitis, not elsewhere classified (principal); M19.90 Unspecified osteoarthritis, unspecified site; E78.5 Hyperlipidemia, unspecified; I10 Essential (primary) hypertension; Z88.5 Allergy status to narcotic agent; Z88.0 Allergy status to penicillin; Z79.82 Long term (current) use of aspirin; Z79.899 Other long term (current) drug therapy
CPT/HCPCS: 27096; J0665; J2003

== ENCOUNTER 2024-12-09 10:37 | Outpatient (POV) | payer MEDICARE, SELFPAY ==
--- OUTSIDE RECORDS SUMMARY | 2024-02-23 10:00 | XMS_ITS ---
[facility] Organization [facility] [address] [phone] Care Team Providers Care Manager Book Name Role Phone Carlos Manuel Barragan Primary Care Provider Nettie Godinez Unavailable [phone] Allergies Allergen (clinical drug ingredient) Drug/Non Drug Allergy documented on EMR Reaction Allergy Type Onset Date Status Substance with penicillin structure and antibacterial mechanism of action (substance) Penicillins Unknown Drug Allergy Active Results Component Value Reference Range Notes CBC Fingerstick (in house) Reviewed date:02/23/2024 07:57:39 PM Interpretation: Performing Lab: Notes/Report: wbc 6.9 3.5 - 10 lym 30.4 15 - 50 mid 8.6 2 - 15 gran 61.0 35 - 80 rbc 3.81 3.5 - 5.5 hgb 11.8 11.5 - 16.5 hct 36.0 35 - 55 mcv 94.4 75 - 100 mch 31.1 25 - 35 mchc 32.9 31 - 38 plat 184 100 - 400 REASON FOR VISIT Possible Sinus Infection Medications Medication SIG (Take, Route, Frequency, Duration) Notes Start Date End Date Status ZyrTEC Allergy 10 MG 1 tab(s) orally once a day; Duration: 30 day(s) Active Fluticasone Propionate 50 MCG/ACT 1 spray(s) in each nostril once a day; Duration: 30 day(s) 05/28/2022 Active valACYclovir HCl 500 MG TAKE 2 TABLETS BY MOUTH TWICE DAILY FOR 1 DAY. Not-Taking Montelukast Sodium 10 MG 1 tab(s) orally once a day; Duration: 90 days Active Metoclopramide HCl 5 MG 1 tab(s) orally 4 times a day (before meals and at bedtime); Duration: 30 day(s) Not-Taking Vitamin D3 50 MCG (2000 UT) 1 cap(s) orally once a day Active Crestor 10 MG 1 tab(s) orally once a day (at bedtime) Active Aspir-Low 81 MG 1 tab(s) orally once a day; Duration: 30 day(s) Active Asmanex HFA 50 MCG/INH DIRECTED INHALED 2 TIMES A DAY *Please review and pick correct strength-formulat ion from Pogoapp options. If intended option is not shown, discontinue and re-order from Quick Search* Active Potassium Chloride ER 1 P.O. Q DAY *Please re view and pick correct strength-formulat ion from Pogoapp options. If intended option is not shown, discontinue and re-order from Quick Search* Active Valsartan 160 MG 1 tablet Orally Once a day; Duration: 30 day(s) Active Metoprolol Succinate 50 MG 1 capsule Orally Once a day; Duration: 30 day(s) Active Diclofenac Sodium 75 MG 1 tablet as needed Orally Twice a day Active Cefuroxime Axetil 500 MG 1 tablet Orally every 12 hrs; Duration: 10 day(s) 02/23/2024 Active Vital Signs Blood pressure systolic 110 mm Hg 02/23/20 24 Blood pressure diastolic 60 mm Hg 024 Heart Rate 85 /min 02/23/2024 Height 64.50 in 02/23/2024 Weight 174 lbs 02/23/2024 BMI 29.40 kg/m2 02/23/2024 Encounters Encounter Location Date Provider Diagnosis [facility] [address] [facility] [address] [place], [place] [phone] 02/23/2024 Nettie Godinez Otitis media H66.90 Assessments Encounter Date Diagnosis (ICD Code) Assessment Notes Treatment Notes Treatment Clinical Notes Section Notes 02/23/2024 Otitis media (ICD-10 - H66.90) fluids, rest, supportive measures for fever/symptom relief Plan Of Treatment Medication Medication Name Sig Start Date Stop Date Notes Cefuroxime Axetil 500 MG 1 tablet Orally every 12 hrs; Duration: 10 day(s) 02/23/2024 Treatment Notes Assessment Notes Otitis media fluids, rest, suppor tive measures for fever/symptom relief Next Appt Details Follow Up: prn, Reason: Progress Notes * DIAMANTE EDOUARDDOB:1950 ( 74 yo F)Acc No.[id number]:02/23/2024 Progress Notes Patient: DIAMANTE BAXTER Provider: MULUGETA Molina :1950 A ge:73 Y S ex:Female Date:02/23/2024 Address:[facility], [place], [id number] Pcp:Carlos Manuel Barragan Subjective: * Chief Complaints: * 1 . Possible Sinus Infection. * HPI: E NT/respiratory: 73 year old female presents with c/o ear pain. c/o rhinorrhea. c/o post nasal drainage. c/o headache. c/o ear stopped up. Denies : sore throat. D enies : cough. D enies : Fever.?Denies : chest congestion. D enies : smoking. Pt is here today for possible sinus infection. Pt sts she has a headache, pain around the ears and watery eyes. Pt sts she has been sneezing; 2 days duration; drinking and eating OK. * ROS: D ERMATOLOGY: no R lizzie. n o H papito. G ASTROENTEROLOGY: no N ausea. n o V omiting. n o D iarrhea.? U ROLOGY: no D ifficulty urinating. n o B lood in urine. * Medical History: K NIELSE TORN MENISCUS (2005), Allergic rhinitis, Hypertension, Left breast cancer, Dx: 2014, Grade 1 lobular carcinoma, Declined pneumonvax - 02/2016, DIOGENES - CPAP use, Dyslipidemia, Saccular aneurysm of descending thoracic aorta, 2021, Right brachial artery thrombosis, 2021. * Surgical History: R T Knee Arthroscopy , Cholecystectomy , RT Total Knee Replacement, Dr. Newman, [facility], [place], [place] 07/07/2007, LT Axillary Lymphnode Removal under L axillary x 4 03/2015, LT Mastectomy-Dr Dhillon 05/2015, LT Breast Reconstruction , RT Eye Fluid Removal 06/2017, Carpal Tunnel Release 02/2018, LT Knee Replacement - left- 09/29/2018, TEVAR procedure (repair of descending thoracic aneurysm) - Dr. Muse 04/26/2022, RT Brachial Artery Thrombectomy- Dr. Muse 05/15/2022. * Hospitalization/Major Diagno stic Procedure: D ehydration 08/2006, Cough, Congestion- [facility] 07/14/2017. * Family History: F ather: , CHF. M other: , [place]. 1 daughter(s) - healthy. . Sister with breast cancer. * Social History: C URRENT TOBACCO USE S moking Status: Patient does NOT smoke. C affeine: no. Home smoke detector use: yes. Marital Status: . Occupation: [employer]. Past smoking status: no. Alcohol: socially. * Medications: T aking Valsartan 160 MG Tablet 1 tablet Orally Once a day , Taking Metoprolol Succinate 50 MG Capsule ER 24 Hour Sprinkle 1 capsule Orally Once a day , Taking Diclofenac Sodium 75 MG Tablet Delayed Release 1 tablet as needed Orally Twice a day , Taking Asmanex HFA 50 MCG/INH AEROSOL DIRECTED INHALED 2 TIMES A DAY , Notes to Pharmacist: *Please review and pick correct strength-formulation from Surgientan options. If intended option is not shown, discontinue and re-order from Quick Search*, Taking Potassium Chloride ER 1 P.O. Q DAY , Notes to Pharmacist: *Please review and pick correct strength-formulation from Surgientan options. If intended option is not shown, discontinue and re-order from Quick Search*, Taking Vitamin D3 50 MCG (2000 UT) Capsule 1 cap(s) orally once a day , Taking Crestor 10 MG Tablet 1 tab(s) orally once a day (at bedtime) , Taking Aspir-Low 81 MG Tablet Delayed Release 1 tab(s) orally once a day , Taking ZyrTEC Allergy 10 MG Tablet 1 tab(s) orally once a day , Taking Fluticasone Propionate 50 MCG/ACT Suspension 1 spray(s) in each nostril once a day , Taking Montelukast Sodium 10 MG Tablet 1 tab(s) orally once a day , Not-Taking valACYclovir HCl 500 MG Tablet TAKE 2 TABLETS BY MOUTH TWICE DAILY FOR 1 DAY. , Not-Taking Metoclopramide HCl 5 MG Tablet 1 tab(s) orally 4 times a day (before meals and at bedtime) , Medication List reviewed and reconciled with the patient * Allergies: P enicillins. Objective: * Vitals: W t:174, Temp:98.0, BP:110/60, HR:85, O2 Sat:97% on RA, Nurse:NAIMA, Ht: 64.50, BMI:29.40. * Examination: E NT/Respiratory: General Appearance: well nourished and hydrated, NAD, alert, active. E yes: sclera and conjunctiva clear. E ars: left TM pink and right with fluid. N ose : nares patent. O ral cavity : no erythema or exudate seen on pharynx. N aliyah : no cervical lymphadenopathy. H eart : RRR. L ungs: CTAB A&P. Assessment: * Assessment: 1. O titis media - H66.90 (Primary) S pecify :left Plan: * Treatment: * Labs: * L ab: CBC Fingerstick (in house) (Collection Date & Time - 02/23/2024) Value Reference Range w bc 6.9 3.5 - 10 * l ym 30.4 15 - 50 * m id 8.6 2 - 15 * g ran 61.0 35 - 80 * r bc 3.81 3.5 - 5.5 * h gb 11.8 11.5 - 16.5 * h ct 36.0 35 - 55 * m cv 94.4 75 - 100 * m ch 31.1 25 - 35 * m chc 32.9 31 - 38 * p lat 184 100 - 400 * Shazia Espinal 02/23/2024 2:15: 15 PM > Provider reviewed results while patient in office.Nettie Godinez 02/23/2024 7:57:29 PM > * Procedure Codes: 9 [address] [place], [address] CAPILLARY BLOOD DRAW, 39725 CBC WITH AUTO DIFF * Follow Up: p rn * Images: Billing Information: * Visit Code: 32774 Office Visit, Est Pt., Level 3. * Procedure Codes: [address] [place]. [address] CAPILLARY BLOOD DRAW. 16509 CBC WITH AUTO DIFF. * Electronic signature of Adela Godinez APRN on 12/09/2024 at 10:42 AM EDT Sign off status: Pending * Provider: MULUGETA Molina Date: 0 02/23/2024 Generated for Leonel mcdonough/Ana/eTransmitting on: 0 12/09/2024 10:42 AM EDT History and Physical Notes * HPI (History of Present Illness) Category Sub-Category Detail Notes Category Not es ENT/respiratory sore throat Pt is here t amber for possible sinus infection. Pt sts she has a headache, pain around the ears and watery eyes. Pt sts she has been sneezing; 2 days duration; drinking and eating OK ear pain cough Fever post nasal drainage headache chest congestion rhinorrhea smoking ear stopped up Examination Category Sub-Category Detail Notes Category Not es ENT/Respiratory Oral cavity : no erythema or exudate s een on pharynx Ears: left TM pink and rig ht with fluid Neck : no cervical lymphade nopathy Heart : RRR Lungs: CTAB A&P General Appearance: well nourished and h ydrated, NAD, alert, active Nose : nares patent Eyes: sclera and conjuncti va clear
--- OUTSIDE RECORDS SUMMARY | 2024-03-11 07:15 | XMS_ITS ---
Author Organization [facility] Address [address] [facility] [address] [phone] Care Team Providers Care Radiology Practitioner Assistant Name Role Phone Carlos Manuel Barragan Primary Care Provider REASON FOR VISIT FLU SHOT Immunizations Vaccine Route Administration Date Status Comme nts Fluzone High Dose (65yr and older) IM Intramuscular 03/11/2024 Administered Encounters Encounter Location Date Provider Diagnosis [facility] [address] [facility] [address] [place] [phone] 03/11/2024 Carlos Manuel Barragan Encounter for immunization Z23 Assessments Encounter Date Diagnosis (ICD Code) Assessment Notes Treatment Notes Treatment Clinical Notes Section Notes 03/11/2024 Encounter for immunization (ICD-10 - Z23) Plan Of Treatment No Information Progress Notes * DIAMANTE EDOUARDDOB:1950 ( 74 yo F)Acc No.[id number]:03/11/2024 Patient: Carlos Manuel YARISAYIA Provider: Carlos Manuel Barragan M.D. :1950 A ge:73 Y S ex:Female Date:03/11/2024 Address:[place] [id number] Subjective: * Chief Complaints: * 1 . [...] signature of Carlos Manuel Barragan MD on 12/09/2024 at 10:41 AM EDT Sign off status: Pending * Provider: Carlos Manuel Barragan M.D. Date: Generated for Leonel mcdonough/Ana/Julianaitting on: 0 12/09/2024 10:41 AM EDT
--- OUTSIDE RECORDS SUMMARY | 2024-08-18 10:15 | XMS_ITS ---
Author [facility] Address [address] [facility] [address] [place] [id number] Care Team Providers Care Mobile Phone Salesperson Name Role Phone Carlos Manuel Barragan Primary Care Provider Rafael Barajas Unavailable [phone] Allergies Allergen (clinical drug ingredient) Drug/Non Drug [...] 08/18/2024 Encounters Encounter Location Date Provider Diagnosis [facility] [address] [facility] [address] [place], [place] [id number] 08/18/2024 Rafael Barajas Influenza A J 10.1 [...] * DIAMANTE EDOUARDDOB:1950 ( 74 yo F)Acc No.[id number]:08/18/2024 Progress Notes Patient: SAY BAXTERIA Provider: João Barajas M.D. :1950 A ge:74 Y S ex:Female Date:08/18/2024 Address[id number] Pcp:Carlos Manuel Barragan Subjective: * Chief [...] , RT Total Knee Replacement, Dr. Newman, [facility], [place], [place] 07/07/2007, LT Axillary Lymphnode Removal under L axillary x 4 03/2015, LT Mastectomy-Dr Dhillon 05/2015, LT Breast Reconstruction , RT Eye Fluid Removal 06/2017, Carpal Tunnel Release 02/2018, LT Knee Replacement - left- 09/29/2018, TEVAR procedure (repair of descending thoracic aneurysm) - Dr. Muse 04/26/2022, RT Brachial Artery Thrombectomy- Dr. Muse 05/15/2022. * Hospitalization/Major Diagno stic Procedure: D ehydration 08/2006, Cough, Congestion- [facility] 07/14/2017. * Family History: F ather: , CHF. M other: , [place]. 1 daughter(s) - healthy. . Sister with breast cancer. * Social History: C URRENT TOBACCO USE S moking Status: Patient does NOT smoke. C affeine: no. Home smoke detector use: yes. Marital Status: . Occupation: [employer]. Past smoking status: no. Alcohol: socially. * [...] Range R esult: Neg * Lindsay Montano [id number] 2:30:40 PM > , Provider reviewed results while patient in office. Notes: fluids, rest, supportive measures for fever/symptom relief?? * Procedure Codes: G 2211 Complex e/[place], [address] [place], [address] COVID TEST IN HOUSE, Modifiers: QW , [address] Flu Test- Nasal Swab, Modifiers: QW , 3074F SYST BP LT 130 MM HG, 3078F DIAST BP < 80 MM HG * Follow Up: p rn * Images: Billing Information: * Visit Code: 48252 Office Visit, Est Pt., Level 3. * Procedure Codes: G2211 Complex e/[place]. [address] [place]. [address] COVID TEST IN HOUSE. Modifiers: QW 91003 Flu Test- Nasal Swab. Modifiers: QW 3074F SYST BP LT 130 MM HG. 3078F DIAST BP < 80 MM HG. * Electronic signature of Ciara Barajas MD on 12/09/2024 at 10:41 AM EDT Sign off status: Pending * Provider: João Barajas M.D. Date: 0 08/18/2024 Generated for Leonel mcdonough/Ana/eTcharlysmitting on: 0 12/09/2024 10:41 AM EDT History and Physical Notes * [...]
--- OUTSIDE RECORDS SUMMARY | 2024-12-09 10:42 | XMS_ITS | Data Portability ---
Author Organization GEORGE Hagaman KIKA [facility] Address [address] [place] [address] Care Team Providers Care Compliance Auditor Name Role Phone BERT GEORGES Primary Care Provider [phone] Assessment No assessment recorded. Plan of Treatment Reminders Order Date Submit Date Provider Last Modified By Organization Details Last Modified Time Details Appointments None record ed. Lab None record ed. Referral None record ed. Procedures None record ed. Surgeries None record ed. Imaging None record ed. Medication Orders None record ed. Patient TargetsNo targets recorded. Patient Instructions Encounter Date Encounter Id Patient Instructions Last Modified By Organization Details Last Modified Time 03/28/2020 [id number] neck pain: care instructions [email or web address] Not available 03/28/2020 12:46:18 1. Advised the patient that her neck pain is likely related to her back/nerves. 2. Recommended she see a cervical spine surgeon. Will assist with ordering an MRI of C-spine 3. Follow up visit PRN or sooner if concerns arise. [email or web address] Not available 03/28/2020 16:55:25 04/28/2020 [id number] MRI cervical spine [facility]: Degenerative disc disease. No significant spinal stenosis. No significant foraminal narrowing. Spent 45 total minutes with the patient today. Greater than 50% of this time was spent counseling/coord ination of care as documented in my assessment and plan above. [email or web address] Not available 05/03/2020 08:58:24 Reason for Referral None Reported. Results Created Date Observation Date Name Description Value Unit Range Abnormal Flag Note LastModifiedBy Organization Detail LastModifiedTime 04/11/20 20 04/11/2020 MRI, cervi mya spine , w/o contr ast Michelle bullard [facility] [address] [facility], [place] [address] Quang t Name: TIAN santos : 1949 Patieduarda santos 7 Orderi ng Provid er[facility]: 2019 EXAM: MR CERVIC AL W/O CONTRA ST HISTOR Y: Neck pain COMPAR ADIRANA: None. FINDIN GS: Revers al the normal cervic al lordos is. Often associ ated with muscul oskele blanca spasm. There is slight anteri or listhe sis of C3 on C4 1.5 mm. Slight product/industry consultant ior listhe sis of C5 on C6 1 1.5 mm. No marrow edema is presen t. There is no fractu re or pathol ogic intrao sseous lesion . There is mild to modera te anteri or margin al osteop hytic spurri ng. No parasp inous soft tissue abnorm ality is identi fied. The visual ized spinal cord and product/industry consultant ior fossa of the brain are normal in appear ance. The cranio cervic al juncti on is normal in appear ance. There are mild degene rative change s at C1-C2. C2-C3: There is mild endpla te spurri ng and a mild disc bulge. There is no centra l canal stenos is. There is no neural forami nal stenos is. C3-C4: Mild broad protru tommy with mild bilate ral facet DJD. There is mild stenos is of the neural forami na bilate rally. No signif icant spinal stenos is C4-C5: Diffus e annula r disc bulge with mild endpla te spurri ng. No spinal stenos is. Slight narrow ing left neural forame n. C5-C6: Mild broad protru tommy of the disc with endpla te spurri ng. Mild DJD of the facets . There is modera te stenos is of the neural forami na bilate rally. Mild spinal canal stenos is C6-C7: Mild broad protru tommy of the disc with endpla te spurri ng. There is mild narrow ing of the neural forami na bilate rally. No spinal stenos is C7-T1: This interv ertebr al disc is essent ially normal in appear ance. The visual ized thorac ic spine are essent ially normal in appear ance. IMPRES TOMMY: 1. Diffus e degene rative disc diseas e is presen t with these level descri bed in more detail above. There is revers al of the normal cervic al lordos is with mild degree malali gnment C3-4 and C5-6 Interp reted By: Brian Laura MD Electr onical ly Signed By: Brian Laura MD on 2019 12:33 PM [email or web address] [facility] [address] [place] [address], [phone], 04/11/2020 13:22:37 Result Notes Documentation Provider Name and Address Organization Details Recorded Time Mri, Cervical Spine, W/o Contrast : [address] [address] Patient Name: TIAN EDOUARD Patient : 1950 Patient Ordering Provider: REBA DARDEN EXAM DATE: 04/11/2020 EXAM: MR CERVICAL W/O CONTRAST HISTORY: Neck pain COMPARISON: None. FINDINGS: Reversal the normal cervical lordosis. Often associated with musculoskeletal spasm. There is slight anterior listhesis of C3 on C4 1.5 mm. Slight posterior listhesis of C5 on C6 1 1.5 mm. No marrow edema is present. There is no fracture or pathologic intraosseous lesion. There is mild to moderate anterior marginal osteophytic spurring. No paraspinous soft tissue abnormality is identified. The visualized spinal cord and posterior fossa of the brain are normal in appearance. The craniocervical junction is normal in appearance. There are mild degenerative changes at C1-C2. C2-C3: There is mild endplate spurring and a mild disc bulge. There is no central canal stenosis. There is no neural foraminal stenosis. C3-C4: Mild broad protrusion with mild bilateral facet DJD. There is mild stenosis of the neural foramina bilaterally. No significant spinal stenosis C4-C5: Diffuse annular disc bulge with mild endplate spurring. No spinal stenosis. Slight narrowing left neural foramen. C5-C6: Mild broad protrusion of the disc with endplate spurring. Mild DJD of the facets. There is moderate stenosis of the neural foramina bilaterally. Mild spinal canal stenosis C6-C7: Mild broad protrusion of the disc with endplate spurring. There is mild narrowing of the neural foramina bilaterally. No spinal stenosis C7-T1: This intervertebral disc is essentially normal in appearance. The visualized thoracic spine are essentially normal in appearance. IMPRESSION: 1. Diffuse degenerative disc disease is present with these level described in more detail above. There is reversal of the normal cervical lordosis with mild degree malalignment C3-4 and C5-6 Interpreted By: Brian Laura MD Peggy R[facility] 04/11/2020 13:22:37 Problems No Known Problems Medical Equipment None Reported. Allergies Allergen ID Allergen Name Allergen Category Reaction Reaction Severity Criticality Documentation Date Start Date Code Code System Note Provider Name and Address Organization Details Recorded Time 763194 Product containin g penicilli n (product) medicatio n Not available Not available Not available 03/28/2020 74049 8001 SNOMED [facility] 0 10:53:55 270013 morphine medicatio n Not available Not available Not available 03/28/2020 7052 RxNorm [facility] 0 10:54:02 Medications Name Sig Start Date Stop Date Status Note LastModified by Organization Details LastModified Time anastrozole 1 mg tablet active Not Available Not Available Not Available benzonatate 200 mg capsule active Not Available Not Available Not Available clindamycin HCl 150 mg capsule active Not Available Not Available Not Available bisoprolol 5 mg-hydrochlo rothiazide 6.25 mg tablet active Not Available Not Available Not Available potassium chloride ER 20 mEq tablet,exten ded release(part /cryst) active Not Available Not Available Not Available metocloprami de 5 mg tablet active Not Available Not Available Not Available doxycycline monohydrate 100 mg capsule 03/28 completed Not Available Not Available Not Available hydrocodone 7.5 mg-acetamino phen 325 mg tablet 03/28 completed Not Available Not Available Not Available gabapentin 300 mg capsule Take 1 capsule every day by oral route at bedtime. 2020 active Not Available Not Available Not Avai lable gabapentin 100 mg capsule active Not Available Not Available Not Available cefdinir 300 mg capsule 03/28 completed Not Available Not Available Not Available fluticasone propionate 50 mcg/actuatio n nasal spray,suspen tommy active Not Available Not Available Not Available rosuvastatin 10 mg tablet active Not Available Not Available Not Available Suprep Bowel Prep Kit 17.5 gram-3.13 gram-1.6 gram oral solution 03/28 completed Not Available Not Available Not Available Shingrix (PF) 50 mcg/0.5 mL intramuscula r suspension, kit 03/28 completed Not Available Not Available Not Available Vitals Date Recorded Body weight Body mass index (BMI) Body height Body temperature Heart rate Systolic And Diastolic Provider Name and Address Organization Details Last Updated DateTime 0 43594.2 5 g 32.8 kg/m2 167.64 cm 97.7 [degF] 69 /min 180/87 mm[Hg] [facility] 11[facility]00 Date Recorded Body height Body mass index (BMI) Body weight Heart rate Systolic And Diastolic Provider Name and Address Organization Details Last Updated DateTime 04/28/2020 167.64 cm 32.9 kg/m2 86735.84 g 69 /min 175/94 mm[Hg] [facility] 04/28/2020 12:29:37 Social History None recorded. Functional Status None recorded. Mental Status None recorded. Family History Relationship Description Onset Age of this Age Resolved Age Notes LastModified by Organization Details LastModified Time Father Thyroid nodule [email or web address] Not available 03/28 10:55:42 Father Hypertensive disorder Not available 03/28 10:56:04 Father Acute stroke Not aakash ilable 03/28/2020 10:56:25 Mother Hypertensive disorder [email or web address] Not available 03/28 10:56:04 Sister Hypertensive disorder [email or web address] Not available 03/28 10:56:04 Sister Kidney disease [email or web address] Not available 03/28 10:56:36 Medical History Condition Response Cancer Y Anemia Y Arthritis Y Sleep Disorder Y Gynecological HistoryNo gynecological history recorded. Obstetrics History GPAL:G 0 P 0 0 0 0 Past Encounters Encounter ID Performer Location Encounter Start Date Encounter Closed Date Diagnosis/Indication Diagnosis SNOMED-CT Code Diagnosis ICD10 Code Diagnosis Note [id number] REBA DARDEN MD [facility] [address] [place] [address] 03/28/2020 10:17:22 03/28/2020 13:32:04 Neck pain 96209307 M54.2 - likely nerve related Otalgia of right ear 014 9289080 546351 H92.01 Obstructiv e sleep apnea of adult 1402366585 103 G47.33 - currently using CPAP Acquired macroglossia 19 4562229 K14.8 Migraine 72098811 G43.90 9 - history of [id number] JOSE CUNNINGHAM MD NEUROS[facility]G [facility] [address] [place] [address] 04/28/2020 11:40:39 05/02/2020 14:52:12 Cervical spondylosis without myelopathy 083337303 M47.812 -The patient presents for evaluation of her neck pain. Symptoms present on and off for 1 year. Does not have any typical radicular symptoms. She complains mainly of musculoske letal pain along the right trapezius. The MRI findings were reviewed with the patient. I personally reviewed the images. No surgical pathology is present. I think the patient will respond to further conservati ve measures. Plan: Physical therapy with attempts at cervical traction. Increase gabapentin to 300 mg daily at bedtime as tolerates Health Concerns Section Related Observation LastModified by Organization Detai ls LastModified Time None Recorded Concern Status LastModified by Organization Details LastModified Time None Recorded Advance Directives Directive None Recorded Payers Insurance Date Sequence Insurance Name Policy Number Policy Mcintosh Covered Member ID Mcintosh Member ID Guarantor Name 05/03/2020 2 [employer] (MEDICARE SUPPLEMENT) Tian Edouard [id number] Tian Edouard 04/25/2020 1 [place] Juany Edouard [id number] Tian Edouard Notes Date Note Type Note Provider Name and Address Organization Details Recorded Time 0 text/html Tian is a 69 year old female who comes in today for consultation at the request of for an evaluation of neck pain and ear pain. She says that back in January 2019, she felt like there was something stuck in her throat that was causing her to have a cough. She says that she had an EGD and had her esophagus stretched. She also had a thyroid ultrasound and thyroid labwork which was normal. She says that since then, she has had neck pain in the right side of her neck into her right ear. Her right ear feels like it is clogged up. She says that she has pain in her neck when she lays on her right side. She has seen Dr. Mederos in the past. Tian also complains of having a few sinus infections a year. She says that her right cheek sinus feels full. She does have nasal congestion in the right side of her nose. Tian also has a history of migraines but believes it has gotten better after she went through menopause. REBA DARDEN MD [address] [place] [address], [phone], [facility] 03/28/2020 16:56:58 0 text/html The patient was seen at request of Dr. Darden. Tian Edouard is a 70-year-old who presents for evaluation of her neck pain. On and off for 1 year. Hx of breast ca but o/w the patient appears to be in good health with limited comorbities. Referred pain on the right side of the neck into the ear. She has referred pain along the right sternocleidomastoid mastoid muscle. Intensity is 3 out of 10. Previous carpal tunnel release bilaterally. Endorses a deep ache constant pain. No alleviating factors. Aggravated by lying on the right or left side. Treatment has not focused in yet on her neck. She takes gabapentin 100 mg at night. She uses occasional anti-inflammatory medication to address this problem. JOSE CUNNINGHAM MD [address] [place] [address], [phone], [facility] 05/03/2020 08:59:28 OBGyn Episode No OBEpisode recorded.
--- OUTSIDE RECORDS SUMMARY | 2024-12-09 10:42 | XMS_ITS | Referral Summary ---
Author Organization [facility] Address [address] [place] [address] Phone Care Team Providers Care Business School Dean Name Role Phone Bassem Barragan Primary Care Provider [phone] Social History Tobacco Use Types Packs/Day Years Used Date Smoking Tobacco: Never Assessed Comments Unknown Sex and Gender Information Value Date Recorded Sex Assigned at Not on file Legal Sex Female 5:01 PM EDT Gender Identity Not on file Sexual Orientation Not on file Plan of Treatment Not on file Care Teams Business School Dean Relationship Specialty Start Date End Date Bassem Barragan [address] [place] [address] PCP - General 06/29/10
--- OUTSIDE RECORDS SUMMARY | 2024-12-09 10:42 | XMS_ITS | Clinical Summary ---
Author Organization [facility] Address [address] [place] [address] Care Team Providers Care Gas Tender Name Role Phone Unavailable Primary Care Provider [...] therelease of HIV test results or diagnoses. [id number] Health Encounters Date Type Department Care Team Description 11/17/2024 Orders Only [employer] [address] [place] [address] Charles Smith MD Neoplasm of uncertain behavior [...] [facility] - 11/16/2024 12:00 AM EDT CASE: [id number] PATIENT: DIAMANTE EDOUARD Clinical Impression: ISK Site(s): L upper back CPT Code(s): 74956 X 1 Diagnosis: Inflamed seborrheic keratosis. Microscopic Exam: There is hyperkeratosis, papillomatosis, acanthosis and a lymphocytic infiltrate in the superficial dermis. There is no atypia. Gross Description: A specimen of skin was received measurin x 8 x 2 mm Final Diagnosis performed by ANTONIO PRADO MD Electronically signed 11/18/2024 12:11:17 PM The Pathologist signing this report is located at [facility], [address] [place] [address], [id number], , CLIA ID: [id number] Charles Smith MD DERM PROCEDURE ORDERABLES Final Result [facility] from Last 3 Months Insurance [employer] SU[employer] MEDICARE
--- OUTSIDE RECORDS SUMMARY | 2024-12-09 10:42 | XMS_ITS | Clinical Summary ---
Author Organization [facility] Address [address] [facility] [place] [address] Phone Care Team Providers Care Cloth Designer Name Role Phone Carlos Manuel Barragan Primary Care Provider [phone] Allergies Active Allergy Reactions Criticality Noted Date [...] 11:20 AM EDT Ancillary Procedure [facility] [address] [place] [address] Nikolas Jha DPM Left foot pain 09/27/2024 10:30 AM EDT Office Visit [facility] [address] [place] [address] Nikolas Jha DPM Hallux valgus with bunions [...] EXPANDERS ; Surgeon: Flaco Damon MD; Location: [facility] MAIN OR; Service: General Medical devices from this surgery are in the Medical Devices section. BREAST BIOPSY 03/03/2015 Left BREAST RECONSTRUCTION 11/16/2015 Breast/Left LEFT BREAST STAGE 2 RECONSTRUCTION WITH IMPLANT RIGHT BREAST REDUCTION FOR SYMMETRY ; Surgeon: Flaco Damon MD; Location: [facility]; Service: Plastics Medical devices from this surgery are in the Medical Devices section. BREAST REDUCTION SURGERY 11/16/2015 Breast/Right Surgeon: Flaco Damon MD; Location: [facility]; Service: Plastics Medical devices from this surgery are in the Medical Devices section. CARPAL TUNNEL RELEASE 02/12/2018 Bilateral BILATERAL CARPAL TUNNEL RELEASE ; Surgeon: Francisco Javier Lepe MD; Location: [facility]; Service: Hand TOTAL KNEE ARTHROPLASTY 09/29/2018 Knee/Left LEFT TOTAL KNEE ARTHROPLASTY; Surgeon: Brian Newman MD; Location: [facility] OR; Service: Orthopedics Medical devices from this surgery are in the Medical Devices section. VASCULAR SURGERY 04/26/2022 TVAR VASCULAR SURGERY 05/15/2022 Right right bracial artery cutdown and exploration, kelley thromboectomy TOE FUSION 03/22/2024 Foot/Ankle/Left first metatarsophalangeal joint fusion left foot.fifth metatarsal osteotomy left foot.left fourth and fifth hammertoe repair.; Surgeon: Nikolas Jha DPM; Location: [facility]; Service: Podiatry Medical devices from this surgery are in the Medical Devices section. TOE SURGERY 03/22/2024 Foot/Ankle/Left Surgeon: Nikolas Jha DPM; Location: [facility]; Service: Podiatry Medical devices from this surgery are in the Medical Devices section. HAMMER TOE SURGERY 03/22/2024 Foot/Ankle/Left Surgeon: Nikolas Jha DPM; Location: [facility]; Service: Podiatry Medical devices from this [...] disease Aortic [facility] B[facility] Family History Medical [...] 10:15 AM EDT Office Visit [facility] [place] [address] [place] [address] Nikolas Jha DPM [address] [place] [address] Health Maintenance Due Date Last [...] any unusual or concerning findings. [facility] No Alexia Kim RN Note: Patient will be compliant with monthly Self Breast Exams and is aware of to who to contact for any unusual or concerning findings. Medical Devices Implanted Type Area Sweat Band Sewer Device Identifier Shelf Expiration Date Model / Serial / Lot Right Hip Replacement Right Knee Replacement Wire Kanchan .045 X 6 Style-1 Sterile - [id number] Implanted:Qty: 1 on 10/05/2010 at [facility] Left: Tongue SIVAN:SIVAN 02/24/2020 75-8407-468-0 0 / / [id number] Wire Kanchan .045 X 6 Style-1 Sterile - [id number] Implanted:Qty: 1 on 10/05/2010 at [facility] Left: Toe SIVAN:SIVAN 03/26/2020 [id number] 0 / / [id number] Director Translation Tissue Breast Cpx4 Low Height Style 8100 550cc - [id number] Implanted:Qty: 1 on 06/02/2015 by Dany Crouch MD at [facility] Left: Breast [facility] [id number] 09/22/2018 [id number] / [id number] / [id number] Implant Breast Memory Shape Moderate Med Height 530cc - [id number] Implanted:Qty: 1 on 11/16/2015 by Flaco Damon MD at [facility] Left: Breast MENTOR:KALEIGH FLEMING PRDT 02/23/2018 [id number] / [id number] / [id number] Femur Persona Ps Porous Standard Size 5 Left - [id number] Implanted:Qty: 1 on 09/29/2018 by Brian Newman MD at [facility] Left: Knee SIVAN:SIVAN 07/30/2028 [id number] 1 / [id number] Component Tibia Cemented Stemmed Persona 5 Degree Lft Sz E - [id number] Implanted:Qty: 1 on 09/29/2018 by Brian Newman MD at [facility] Left: Knee SIVAN:SIVAN 06/01/2028 [id number] / / [id number] Surface Articular Ps Fixed Persona Left 10mm (Fem 3-5tibef) - [id number] Implanted:Qty: 1 on 09/29/2018 by Brian Newman MD at [facility] Left: Knee SIVAN:SIVAN 04/01/2023 [id number] 0 / / [id number] Cement Bn Refobacin St Latex Free Disposable - [id number] Implanted:Qty: 1 on 09/29/2018 by Brian Newman MD at [facility] Left: Knee SIVAN:SIVAN 06/01/2020 [id number] / / [id number] Patella All Poly Cemented Persona 32mm 8.5mm Thickness - [id number] Implanted:Qty: 1 on 09/29/2018 by Brian Newman MD at [facility] Left: Knee SIVAN:SIVAN 06/01/2026 [id number] 2 / [id number] Extension Stem Persona Tapered Cemented 14mm +30 - [id number] Implanted:Qty: 1 on 09/29/2018 by Brian Newman MD at [facility] Left: Knee SIVAN:SIVAN 07/30/2028 [id number] 4 [id number] Pin Drill 1.4i145wa Tip Trim-It F/Shldr Impl Dlv Sys - [id number] Implanted:Qty: 1 on 03/22/2024 by Nikolas Jha DPM at [facility] Left: Foot ARTHREX 05/25/2025 [id number] / / [id number] Screw 3.0mm X 14mm Kreulock Titanium - [id number] Implanted:Qty: 2 on 03/22/2024 by Nikolas Jha DPM at [facility] Left: Foot ARTHREX [id number] / / Screw 3.0mm X 18mm Kreulock Titanium - [id number] Implanted:Qty: 1 on 03/22/2024 by Nikolas Jha DPM at [facility] Left: Foot ARTHREX [id number] / / Screw 3.0mm X 16mm Kreulock Titanium - [id number] Implanted:Qty: 2 on 03/22/2024 by Nikolas Jha DPM at [facility] Left: Foot ARTHREX [id number] / / Screw Lp 3.0mm X16mm Cortical Mtp Ti - [id number] Implanted:Qty: 1 on 03/22/2024 by Nikolas Jha DPM at [facility] Left: Foot ARTHREX AR-[id number] / / Plate Maxforce Mtp 0-0 Petite Left - [id number] Implanted:Qty: 1 on 03/22/2024 by Nikolas Jha DPM at [facility] Left: Foot ARTHREX [id number] / [...] PM EST History of breast cancer 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 There are scattered fibroglandular densities. Prior study comparison: Compared with prior studies the most recentbeing 06/20/22, 04/24/21 Status post LEFT mastectomy. Status post reduction mammoplasty RIGHT breast. No new mass, distortion, or suspicious calcification. ~ IMPRESSION: Negative (PUT-Wokgtwhz-1) ~ RECOMMENDATION: Routine screening mammogram in 1 [...] of Breast Imaging recommendations. Carlos Manuel Barragan [facility] MAMMOGRAPHY ORDERABLES Iliana buck Result * DX BONE DENSITY AXIAL SKELETON (06/20/2022 12:58 PM EST) Anatomical Region Laterality Modality Dexa Scan 06/20/2022 Narrative 06/20/2022 4:08 PM EST Indication: The patient is a female age 65 or older who requires a bone density assessment. Study was performed on Procura 5. Bone Density: Region BMD T-score Z-score [...] last exam. Reported by: Alexia Verdin PA-C, [facility], CCD on 06/20/2022 1:56:00 PM. Dany Crouch MD IMG DEXA ORDERABLES Final R esult from Last 3 Months or Most Recently Relevant to Health Maintenance Insurance [place]ICARE [place] PART [place] AETNA SENIOR [id number] INS Advance Directives For more information, please contact: [phone] * Full Code (Latest Code Status on File) Date Activated Date Inactivated Comments 09/29/2018 11:55 AM 10/02/2018 4:47 PM * Full Code Date Activated Date Inactivated Comments 06/02/2015 5:38 PM 06/03/2015 6:37 PM Care Teams Cloth Designer Relationship Specialty Start Date End Date Carlos Manuel Barragan [address] [facility] [address] [place] [address] PCP - General 07/03/10
--- OUTSIDE RECORDS SUMMARY | 2024-12-09 10:42 | XMS_ITS | Encounter Summary ---
Author Organization [place] [address] Care Team Providers Care Compress Engineer Name Role Phone Carlos Manuel Barragan Primary Care Provider [phone] Encounter Details Date Type Department Care Team (Late st Contact Info) Description 11/07/2020 Lab Requisition [facility] [place] [id number] Adali Jacinto MD [address] [place] [address] Malignant neoplasm of unspecified site of left [...] 10:15 AM EDT Office Visit [facility] [address] [place] [address] Nikolas Jha DPM [address] [place] [address] documented as of this encounter Goals Goal [...] documented in this encounter Results * [facility] (11/07/2020 1:32 PM EDT) CASE REPORT Surgical Pathology Report Case: [id number] Authorizing Provider: Adali Jacinto MD Collected: 11/07/2020 1332 Ordering Location: [facility] Received: 11/07/2020 1332 Pathologist: Adali Jacinto MD Specimen: Breast, Left, Request for case [id number] 1A & 1B blocks for Breast Cancer Index. 11/30/2020 9:57 AM EDT [facility] FINAL DIAGNOSIS Breast Cancer Index report will be reported in an addendum. 11/30/2020 9:57 AM EDT [facility] at 1339 EDT [facility] 11/30/2020 9:57 AM EDT [facility] ADDENDUM Refer to Scanned [facility] Breast Cancer Index report. 11/30/2020 9:57 AM EDT [facility] Addendum electronically signed by Adali Jacinto MD on 11/30/2020 at 0957 EDT Tissue LEFT BREAST STRUCTURE / Unknown 11/07/2020 1:32 PM EDT 11/07/2020 1:32 PM EDT Adali Jacinto MD PATHOLOGY ORDERABLES Edited Resu lt - Final [facility] [address] [place] [address] documented in this encounter Visit Diagnoses Diagnosis Malignant neoplasm of unspecified site of left female breast (HCC) documented in this encounter Additional Health Concerns Assessment Noted Time A fall risk assessment has been complete d for the patient 04/26/2019 3:55 PM EST documented as of this encounter Care Teams Compress Engineer Relationship Specialty Start Date End Date Carlos Manuel Barragan [facility] [address] [place] [id number] PCP - General 07/03/10 documented as of this encounter
--- OUTSIDE RECORDS SUMMARY | 2024-12-09 10:42 | XMS_ITS | Clinical Summary ---
Author Organization Healthcare Address [address] [place] [address] Care Team Providers Care Easement Man Name Role Phone Pcp, No Primary Care [...] (2 of 2 - PCV) 07/21/2021 07/21/2020 [id number] Vaccine ( - season) 2024 03/19/2021, 06/13/2020, [...] age to complete this topic Insurance MEDICARE AETNA Care Teams Easement Man Relationship Specialty Start Date End Date Rj, [place] [address] PCP - General Family Medicine 11/24/23
--- OUTSIDE RECORDS SUMMARY | 2024-12-09 10:42 | XMS_ITS | Clinical Summary ---
Author Organization [facility] Address [address] [facility] [place] [address] Phone Care Team Providers Care Pharmacy Specialist Name Role Phone Bassem Barragan Primary Care Provider [phone] Social History Tobacco Use Types Packs/Day Years [...] age to complete this topic Care Teams Pharmacy Specialist Relationship Specialty Start Date End Date Bassem Barragan [address] [place] [address] PCP - General 06/29/10
--- OUTSIDE RECORDS SUMMARY | 2024-12-09 10:42 | XMS_ITS | Encounter Summary ---
Author Organization [facility] Address [facility] [place] [address] Care Team Providers Care Ophthalmic Nurse Name Role Phone Unavailable Primary Care Provider [...] release of HIV test results or diagnoses. [id number] Health Encounter Details Date Type Department Care Team (Late st Contact Info) Description 11/17/2024 Orders Only [facility] [address] [place] [address] [place] [address] [place] [address] Neoplasm of uncertain behavior of [...] [facility] - 11/16/2024 12:00 AM EDT CASE: [id number] PATIENT: DIAMANTE EDOUARD Clinical Impression: ISK Site(s): L upper back CPT Code(s): 76324 X 1 Diagnosis: Inflamed seborrheic keratosis. Microscopic Exam: There is hyperkeratosis, papillomatosis, acanthosis and a lymphocytic infiltrate in the superficial dermis. There is no atypia. Gross Description: A specimen of skin was received measurin x 8 x 2 mm Final Diagnosis performed by ANTONIO PRADO MD Electronically signed 11/18/2024 12:11:17 PM The Pathologist signing this report is located at [facility] Dermatopathology Laboratory, [address] [place] [address], [address], , CLIA ID: [id number] Charles Smith MD DERM PROCEDURE ORDERABLES Final Result [facility] documented in this encounter Visit Diagnoses Diagnosis Neoplasm of uncertain behavior of skin- Primary documented in this encounter
--- OUTSIDE RECORDS SUMMARY | 2024-12-09 10:42 | XMS_ITS ---
Author Organization [facility] [place] [address] Phone Care Team Providers Care Vacuum Metalizer Operator Name Role Phone Carlos Manuel Barragan Primary Care Provider [phone] Active Problems Problem Noted Date Diagnosed Date [...] General Information Patient name Juany Alarcon (home) [phone] (work) Date of 1950 Age 65 y.o. Care Team Medical Oncologist N/A Surgeon Dr Steven Crouch Radiation Oncologist N/A Primary Care Physician Carlos Manuel Barragan, Gynecologic Oncologist N/A Cancer Diagnosis Information Diagnosis date 02/09/2015 Diagnosis and Staging information Invasive Lobular Carcinoma - Stage 2 Tumor markers Estrogen Receptor (ER) positive; Progesterone Receptor (OR) positive; HER2 negative. Location of recurrence N/A [...] as directed by your physician at the [facility]. ??? Radiation Oncologist: Follow up every 6 months for two visits and then annually or as directed by your Radiation Oncologist at [facility] where you received your treatment or as directed. ??? Oncologist: as directed by Medical Oncologist at the the center where you received your treatment or as directed by your doctor. ??? Primary Care: Follow up annually. ??? Relief Salesperson: Follow up annually or as directed by Relief Salesperson. Diagnostic Testing ??? Mammogram: Diagnostic imaging should [...] with your body,see your regular doctor, physician email marketing assistant, or nurse practitioner. If what you [...] 4-week smoking cessation program developed by the [employer] and offered to you by [facility]. This program is designed to help you [...] dietary needs that you may have. The [employer] and the [employer] [place] [employer] have developed similar diet [...] Women???[facility] Nurse Navigator ???s [facility] [place] Javier Roach [facility] [phone] [employer] [phone] www.cancer.org Managecancer.org Managecancer.org provides links to resources that offer financial assistance for those dealing withcancer. Medical bills, medications, legal issues, travel and accommodation costs for treatment and education and employment issues that can create financial hardships. The following resources will help in lightening the financial burden of life with cancer. Cancer Support Community [place], [place]. [phone] [facility] [place] [phone] www.cancersupport[place].org Backed by evidence that the best cancer care includes social and emotional support, [facility] offers morethan 250 free programs and services each month that are intended to provide non-medical care to individuals and families to support a holistic, patient-active approach to wellness. Cancer Family [facility] [phone] www.cancerfamilycare.org
--- OUTSIDE RECORDS SUMMARY | 2024-12-09 10:43 | XMS_ITS | Patient Health Record ---
Author Organization [facility] Address [address] [id number] Care Team Providers Care Plan Manager Name Role Phone Carlos Manuel Barragan Primary Care Provider Rafael Barajas Unavailable [phone] Nettie Godinez Unavailable [phone] Allergies Allergen (clinical drug ingredient) Drug/Non Drug [...] - 38 plat 184 100 - 400 Influenza Screen (in house) Reviewed date:08/20/2024 05:47:23 PM Interpretation: Performing Lab: Notes/Report: results Pos A Covid test (in house) Reviewed date:08/26/2024 02:31:02 PM Interpretation: Performing Lab: Notes/Report: Result: Neg Medications Medication SIG (Take, Route, Frequency, Duration) Notes Start Date End Date Status Diclofenac Sodium 75 MG 1 tablet as needed Orally Twice a day Active Asmanex HFA 50 MCG/INH DIRECTED INHALED 2 TIMES A DAY *Please review and pick correct strength-formulatio n from [employer]Greekan options. If intended option is not shown, discontinue and re-order from Quick Search* Active Potassium Chloride ER 1 P.O. Q DAY *Please review and pick correct strength-formulatio n from [employer]Greekan options. If intended option is not shown, [...] Vaccine Route Administration Date Status Comme nts Prevnar (PCV20) IM Intramuscular 02/28/2022 Administered Hepatitis A (adult) IM Intramuscular 02/17/2018 Administer ed Fluzone High Dose (65yr and older) IM Intramuscular 03/11/2024 Administered Flublok IM Intramuscular 01/25/2021 Administered DT, 7 YEARS OR OLDER Unknown 07/29/1996 Administered COVID 19 Moderna Unknown 06/13/2020 Administered COVID 19 Moderna Unknown 03/19/2021 Administered Hepatitis A (adult) Unknown 08/18/2018 Administered Shingrix Unknown 02/14/2020 Administered Shingrix IM Intramuscular 03/16/2019 Administered COVID 19 Moderna Unknown 06/12/2020 Administered COVID 19 Moderna Unknown 05/16/2020 Administered Fluzone High Dose (65yr and older) IM Intramuscular 04/09/2023 Administered PNEUMOVAX 23 VACCINE IM Intramuscular 07/21/2020 Administe red Shingrix Unknown 02/14/2020 Administered Fluzone High Dose (65yr and older) IM Intramuscular 02/28/2022 Administered Problems Problem Type SNOMED Code ICD Code Onset Dates Problem Status W/U Status Risk Notes Problem Malignant neoplasm of female breast (854018623) Malignant neoplasm of unspecified site of left female breast (C50.912) Active confirmed Problem Vitamin D deficiency (59256431) Vitamin D deficiency (E55.9) Active confirmed Problem Essential hypertension (20021398) Essential hypertension (I10) Active confirmed Problem Obstructive sleep apnea syndrome (disorder) (98166387) Obstructive sleep apnea (adult) (pediatric) (G47.33) Active confirmed Problem Gastroesophageal reflux disease without esophagitis (101126340) Gastroesophageal reflux disease without esophagitis (K21.9) Active confirmed Problem Allergic rhinitis (80594698) Allergic rhinitis (J30.9) Active confirmed Problem Osteoarthritis of knee (982395906) Primary osteoarthritis of left knee (M17.12) Active confirmed Problem Dyslipidemia (443282441) Dyslipidemia (E78.5) Active confirmed Problem History of left mastectomy (479484142) Status post left mastectomy (Z90.12) Active confirmed Problem Seasonal allergic rhinitis (406195463) Seasonal allergic rhinitis, unspecified allergic rhinitis trigger (J30.2) Active confirmed Problem Oropharyngeal dysphagia (48714519) Oropharyngeal dysphagia (R13.12) Active confirmed Problem History of aortic aneurysm (256906057) History of aortic aneurysm (Z86.79) Active confirmed Problem 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 Vital Signs Heart Rate 95 /min 08/18/2024 Blood pressure diastolic 60 mm Hg 08/18/2024 Height 64.50 in 08/18/2024 Blood pressure systolic 110 mm Hg 08/18/2024 Weight 190.2 lbs 08/18/2024 BMI 32.14 kg/m2 08/18/2024 Encounters Encounter Location Date Provider Diagnosis [facility] [address] [facility] [address] [facility] [address] [place], [place] [id number] 12/18/2023 Carlos Manuel Barragan Seasonal allergic rhinitis, unspecified allergic rhinitis trigger J30.2 [facility] [address] [facility] [address] [place], [place] [id number] 02/23/2024 Nettie Godinez Otitis media H66.90 [facility] [address] [facility] [address] [place] [id number] 03/11/2024 R Bassem Barragan Encounter for immunization Z23 [place] [address] [facility] [address] [place] [id number] 08/18/2024 [place] Influenza A J10.1 [place] [address] [facility] [address] [facility] [address] [place] [id number] 02/23/2024 R Bassem Barragan Otitis media H66.90 [place] [address] [facility] [address] [facility] [address] [place] [id number] 04/20/2024 R Bassem Barragan Assessments Encounter Date Diagnosis (ICD Code) Assessment Notes Treatment Notes Treatment Clinical Notes Section Notes 12/18/2023 Seasonal allergic rhinitis, unspecified allergic rhinitis trigger (ICD-10 - J30.2) 02/23/2024 Otitis media (ICD-10 - H66.90) fluids, rest, supportive measures for fever/symptom relief 08/18/2024 Influenza A (ICD-10 - J10.1) fluids, rest, supportive measures for fever/symptom relief 03/11/2024 Encounter for immunization (ICD-10 - Z23) 02/23/2024 Otitis media (ICD-10 - H66.90) Plan Of Treatment No Information Insurance Providers Payer Name Payer Address Payer Phone Subscriber Number Group Number Insured Name Patient Relationship to Insured Coverage Start Date Coverage End Date MEDICARE PART [place] [address] [address] [place] [id number] [id number] DIAMANTE EDOUARD Self - patient is the insured AET[employer] [address] [address] [place] [address] [id number] DIAMANTE EDOUARD Self - patient is the insured Medications Administered Medication Instructions Date of Administration Dosage Notes Dexamethasone 08/10/2009 1 mL Dexamethasone 04/08/2014 1 mL Dexamethasone 06/28/2019 1 mL Dexamethasone 04/28/2018 1 mL Dexamethasone 04/20/2018 1 mL Dexamethasone 05/21/2016 1 mL Dexamethasone 06/08/2013 1 mL Dexamethasone 06/04/2013 Dexamethasone 06/27/2009 1 mL Dexamethasone 04/11/2009 1 mL Dexamethasone 09/02/2008 1 mL Dexamethasone 07/29/2008 1 mL Dexamethasone 09/25/2006 1 mL Depo- Medrol 40 mg/ml 04/23/2011 1 mL Depo- Medrol 40 mg/ml 03/22/2011 1.5 mL Dexamethasone 09/11/2015 1 mL Dexamethasone 10/24/2007 1 mL Medical (General) History Medical History History ICD Code KNEE TORN MENISCUS (2005) allergic rhinitis Hypertension Left breast cancer, Dx: 2015, Grade 1 lo bular carcinoma Declined pneumonvax - 02/2016 DIOGENES - CPAP use dyslipidemia Saccular aneurysm of descending thoracic aorta, 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
[2024-12-09 11:18] VITALS: BP 131/69; PULSE 73; RESP 18; O2SAT 98; BMI 29.5
--- NOTE | 2024-12-09 11:36 | XR_ITS ---
FINAL REPORT CLINICAL HISTORY: Left hip pain - gets steroid injections every 4 months FINDINGS: LEFT HIP Three views were obtained. There is no fracture or dislocation. There are moderate degenerative changes. There is a bone island in the distal femoral neck. No soft tissue abnormality is identified. IMPRESSION: Moderate degenerative changes. Reviewed, Interpreted and Dictated by Steven Driscoll MD Transcribed by Ellen Henning Authenticated and [facility]
--- NOTE | 2024-12-09 11:36 | XR_ITS ---
FINAL REPORT CLINICAL HISTORY: Hip pain - gets steroid injections every 4 months FINDINGS: SACROILIAC JOINTS Three views were obtained. There is no fracture or dislocation. There is mild bilateral SI joint arthropathy. There is no evidence of erosion or ankylosis. Patient is status post right hip arthroplasty. No soft tissue abnormality is identified. IMPRESSION: Mild bilateral SI joint arthropathy. Reviewed, Interpreted and Dictated by Steven Driscoll MD Transcribed by Ellen Henning Authenticated and [facility]
--- NOTE | 2024-12-09 11:36 | EXP.PAIN.SOA ---
[facility] Disclaimer: The information contained in this section may have been updated after the patient was seen, as this information can be updated by other users. Medical History (Updated 12/09/24 @ 11:30 by Deepika Gonzalez APRN) Hypertension Arthritis Hyperlipidemia Surgical History History of bilateral knee replacement Family History Other No significant family history Social History Smoking Status: Never smoker second hand exposure: No alcohol intake: never substance use type: denies use current occupational status: other Travel in the last 8 weeks?: None household members: spouse housing: house current occupation: [employer] current occupational exposures/hazards: No caffeine: Yes PM Subjective & Objective Subjective Subjective:: Patient is a pleasant 74-year-old female who presents today for worsening low back and left hip pain. Patient rates her pain a 10 out of 10. Patient did have a left SI injection on 11/30/2024 however she states she noticed no improvements. She states that she is still having the groin pain only on the left side. She states it is constant and is affecting everything she is doing. Patient denies any new falls or injuries. This did all start following her vacation trip in the middle of September. Patient is currently managed with methocarbamol during the day and Flexeril at bedtime along with compounded cream from our office. Patient has previously been on anti-inflammatories however with her history of heart issues she was counseled at our previous visits that we would not refill this medication. She states that she did have some leftover medicines of her diclofenac and that she has used this due to the pain being so severe. Her Jose Miguel has been reviewed and is appropriate. Review of Systems: General: No recent weight changes, no fever, no sleep disturbances Respiratory: No cough, no shortness of air, no recurring pulmonary infections Cardiovascular/peripheral vascular: No chest pain, no palpitations, no edema, no shortness of breath Gastrointestinal: No new onset incontinence, normal bowel movements reported Genitourinary: No new onset incontinence Musculoskeletal: Low back pain, left hip pain, groin pain Psychiatric: [Normal mood/affect] Neurological: [Denies weakness in extremities], [denies balance issues] Pain at rest (0-10 scale): 10 Objective Objective:: Physical Exam: General: Alert and oriented x3, no acute distress, pleasant and cooperative Lungs: Respirations even and unlabored, symmetrical chest expansion Eyes: PERRL Musculoskeletal: Flexion and extension of lumbar [spine] somewhat guarded secondary to pain, [antalgic gait noted] point tenderness along left SI with positive left Nat's, Reg's, Gaenslen's, compression and distraction exam Neurological: Speech clear, no gross sensory deficit Has patient had previous pain injection?: Yes Percent improvement in pain since last injection: Minimal Conservative treatment options previously tried: Home exercise plan Length of treatment: Longer than 12 weeks Meds Home Medications and Allergies Home Medications ?Medication ?Instructions ?Recorded ?Confirmed ?Type anastrozole 1 mg tablet 1 mg PO DAILY cancer 03/30/19 12/09/24 History aspirin 81 mg tablet,delayed 81 mg PO DAILY Supplement 03/30/19 12/09/24 History release bisoprolol 5 1 each PO DAILY blood pressure 03/30/19 12/09/24 History mg-hydrochlorothiazide 6.25 mg tablet potassium chloride 20 mEq 20 meq PO DAILY Supplement 03/30/19 12/09/24 History tablet,extended release vitamin E 100 unit capsule 100 unit PO DAILY Supplement 03/30/19 12/09/24 History calcium polycarbophil 625 mg 1,250 mg PO DAILY Supplement 04/08/19 12/09/24 History tablet (FiberCon) rosuvastatin 10 mg tablet 10 mg PO DAILY Cholesterol 04/08/19 12/09/24 History metoclopramide HCl 5 mg tablet 5 mg PO ACHS GERD 08/04/20 12/09/24 History gabapentin 300 mg capsule 300 mg PO BID Pain 04/03/21 12/09/24 History oxybutynin chloride 5 mg 5 mg PO DAILY URINATION 04/03/21 12/09/24 History tablet,extended release 24 hr meloxicam 7.5 mg tablet 7.5 mg PO DAILY . #30 tabs 11/28/22 12/09/24 Rx meloxicam 15 mg tablet 15 mg PO DAILY #30 tabs 06/04/23 12/09/24 Rx camphor 3.1 %-methyl salicylate 10 1 patch topical TID 5 days #20 ea 08/18/23 12/09/24 Rx %-menthol 6 % topical patch (Salonpas) diclofenac sodium 75 mg 75 mg PO BID #60 tabs 07/19/24 12/09/24 Rx tablet,delayed release celecoxib 100 mg capsule 100 mg PO BID #28 caps 10/27/24 12/09/24 Rx cyclobenzaprine 5 mg tablet 5 mg PO HS PRN muscle spasm #30 10/27/24 12/09/24 Rx tabs methocarbamol 1,000 mg tablet 1,000 mg PO TID 11/24/24 12/09/24 History prednisone 20 mg tablet 20 mg PO BID #10 tabs 12/09/24 Rx New Prescriptions to Start Prescriptions: prednisone Deepika Gonzalez Allergies Allergy/AdvReac Type Severity Reaction Status Date / Time Penicillins Allergy Intermediate Rash Verified 12/23/23 12:16 morphine AdvReac Mild Confusion Verified 12/23/23 12:16 Assessment and Plan *Assessment and plan (1) Sacroiliitis: Status: Acute Category: Medical Code(s): M46.1 - Sacroiliitis, not elsewhere classified (2) Left hip pain: Status: Acute Category: Medical Code(s): M25.552 - Pain in left hip Plan I did discuss with the patient that she does still have point tenderness along her left SI and a positive left Nat's and her symptoms do still seem very consistent with sacroiliitis. Patient was counseled that I will send in a 5-day dose of prednisone 20 mg twice daily and will order x-ray imaging of her left hip and SI joints. Patient will return to clinic in 1 week for reevaluation of symptoms and plan of care. We did also discuss again that her it application administrator office did call and discussed that they would prefer that she not be on anti-inflammatories. We did review again that it is just not recommended with a heart history. Patient acknowledges understanding agrees with plan of care. Patient has been instructed to contact the clinic with any concerns before the next appointment. Dr. Partida has reviewed this note and agrees with this plan of care. This note was dictated using voice recognition software and make contain errors or omissions. All injections are used with Lidocaine, Bupivacaine and dexamethasone. Occasionally urine drug screen is needed to verify patient's compliance with our office pain contract. This is ordered based off specific treatments related to chronic pain with the potential to abuse certain medications.
== END 2024-12-09 23:59 | disposition home or self-care (01) ==
PROVIDERS: PCP Family Medicine; Visit Provider Nurse Practitioner Family
DX: M46.1 Sacroiliitis, not elsewhere classified (principal); M25.552 Pain in left hip; Z79.1 Long term (current) use of non-steroidal anti-inflammatories (NSAID); Z79.891 Long term (current) use of opiate analgesic
CPT/HCPCS: 72202; 73502; 99212; G0463

== ENCOUNTER 2024-12-16 13:52 | Outpatient (POV) | payer MEDICARE, SELFPAY ==
--- OUTSIDE RECORDS SUMMARY | 2024-03-11 07:15 | XMS_ITS ---
Author Organization [facility] Address [address] [facility] [address] [phone] Care Team Providers Care Edger Hand Name Role Phone Carlos Manuel Barragan Primary Care Provider REASON FOR VISIT FLU SHOT Immunizations Vaccine Route Administration Date Status Comme nts Fluzone High Dose (65yr and older) IM Intramuscular 03/11/2024 Administered Encounters Encounter Location Date Provider Diagnosis [facility] [address] [facility] [address] [place] [phone] 03/11/2024 Carlos Manuel Barragan Encounter for immunization Z23 Assessments Encounter Date Diagnosis (ICD Code) Assessment Notes Treatment Notes Treatment Clinical Notes Section Notes 03/11/2024 Encounter for immunization (ICD-10 - Z23) Plan Of Treatment No Information Progress Notes * DIAMANTE EDOUARDDOB:1950 ( 74 yo F)Acc No.[id number]:03/11/2024 Patient: Carlos Manuel YARISAYIA Provider: Carlos Manuel Barragan M.D. :1950 A ge:73 Y S ex:Female Date:03/11/2024 Address:[place] [id number] Subjective: * Chief Complaints: * 1 . [...] signature of Carlos Manuel Barragan MD on 12/16/2024 at 01:56 PM EDT Sign off status: Pending * Provider: Carlos Manuel Barragan M.D. Date: Generated for Leonel mcdonough/Ana/Julianaitting on: 0 12/16/2024 01:56 PM EDT
--- OUTSIDE RECORDS SUMMARY | 2024-11-12 06:35 | XMS_ITS | Continuity of Care Document ---
Author Organization [facility] Address [address] [place] [address] Phone Care Team Providers Care Billing Clinician Name Role Phone Weston Tamez MD Unavailable Unavailable Allergies, Adverse Reactions, Alerts Substance Reaction Status Criticality Penicillins Rash Active No Information morphine Rash Active No Information Penicillins Active No Information PENICILLIN Active No Information morphine Active No Information Medications Medication Instructions Dosage Effective Dates (start - stop) Status Comments Tanlor 1,000 mg tablet 1000 mg ORAL TABLET Take one tablet by mouth QID for spasms - Active Celebrex 100 mg capsule take 1 capsule by oral route every day 100 MG - Active hydrocodone 5 mg-acetaminophen 325 mg tablet take 1 tablet by po q6-8 hrs as needed for pain as needed for pain - Active Mobic 15 mg tablet take 1 tablet by oral route every day - Active Ziac 5 mg-6.25 mg tablet take 1 tablet by oral route every day - Active aspirin 81 mg chewable tablet [...] route every day Not Available - Active Procedures Procedure Date Office/outpatient visit,new, [facility] 2024 X-RAY EXAM HIP UNI 2-3 VIEWS X-ray exam of knee, 3 views Office/outpatient visit,est, mod 2021 Betamethasone acet 3mg [...] Providers Copied on Encounter [facility] [place], [address] [place], [address], [place] tel:[phone] [facility] No Information 5 Joi Ontiveros. [address] [place], [address], [place]. tel:[phone] Referring Provider: Bea Bowles, [address] [place] [address], [address]. tel:[phone] [facility], [address] [place] [address], [address], [place] tel:[phone] [facility] [place] No Information 5 Trent Torres. [address] [place] [address], [address], [place]. tel:[phone] Referring Provider: Bea Nita Wilbur, [address] [place] [address], [facility]. tel:[phone] Office/outpa tient visit,new, mod [facility] [place], [address] [place] [address], [address], [place] tel:[phone] [facility] [place] knee (chief complaint)L t knee (chief complaint) Pain in left knee 5 Trent Torres. [address] [place] [address], [address], [place]. tel:[phone] Referring Provider: Bea Bowles, [address] [place] [address], [address]. tel:[phone] [facility], [address] [place] [address], [address], [place] tel:[phone] [facility] [place] No Information 0 2 Neerajflavio Figueredo. [address] [place] [address], [address], [place]. tel:[phone] Referring Provider: Brian Montesinos, [address] [place] [address], [address]. tel:[phone] Office/outpa tient visit,est, mod [facility] [place], [address] [place] [address], [facility], tel:[phone] [facility] (chief complaint) Impingement syndrome of right shoulder 2 Trent Torres. [address] [place] [address], [address], [place]. tel:[phone] Referring Provider: Brian Montesinos, [address] [place] [address], [address]. tel:[phone] [facility], [facility] [address] [place], [place], [facility], [place] tel:[phone] [facility] Francisco Javier Pain in left kneeNeuralgia and neuritis, unspecified 2 Joi Ontiveros. [address] [place], [address], [place]. tel:[phone] Referring Provider: Bea Bowles, [address] [place] [address], [facility]. tel:[phone] [facility] [place], [address] [place] [address], [facility], [place] tel:[phone] [facility] Neuralgia and neuritis, unspecified 2 Joi Ontiveros. [address] [place], [address], [place]. tel:[phone] Referring Provider: Bea Bowles, [address] [place] [address], [address]. tel:[phone] Office/outpa tient visit,est, mod [facility] [place], [address] [place] [address], [address], [place] tel:[phone] [facility] (chief complaint) Other low back painNeuralgia and neuritis, unspecified 2 Nita Figueredo. [address] [place] [address], [address], [place]. tel:[phone] Referring Provider: Bea Bowles, [address] [place] [address], [facility]. tel:[phone] Office/outpa tient visit,est, mod [facility] [place], [facility] [place], [address], [place] tel:[phone] Dionicio Mcintyre Neuralgia and neuritis, unspecifiedOt her low back painPain in left knee Jun- 2 Joi Ontiveros. [address] [place], [address], [place]. tel:[phone] Referring Provider: Bea Bowles, [address] [place] [address], [facility]. tel:[phone] Office/outpa tient visit,est, mod [facility] [place], [facility] [address] [place], [facility], tel:[phone] [facility] general orthopedic (chief complaint) Other bursitis of knee, left kneeUnilatera l primary osteoarthriti s, left knee Jun- 2 Nita Figueredo. [address] [place] [address], [address], [place]. tel:[phone] Referring Provider: Brian Montesinos, [address] [place] [address], [facility]. tel:[phone] [facility] [address], [facility], tel:[phone] [facility] Other bursitis of knee, left knee 1 Jennifer Abbott. [address] [place] [address], [address], [place]. tel:[phone] Referring Provider: Bea Bowles, [address] [place] [address], [facility]. tel:[phone] Office/outpa tient visit,est, mod [facility] [address], [address], [place] tel:[phone] [facility] general orthopedic (chief complaint) Unilateral primary osteoarthriti s, left knee Nov- 1 Nita Figueredo. [address] [place] [address], [address], [place]. tel:[phone] Referring Provider: Beadianna Bowles, [address] [place], [address]. tel:[phone] Office/outpa tient visit,est, mod [facility] [place], [facility] [place], [address], [place] tel:[phone] [facility] general orthopedic (chief complaint) Aftercare following joint replacement surgeryPresen ce of left artificial knee jointOther bursitis of knee, left knee 1 Nita Thurmanah. [address] [place], [address], [place]. tel:[phone] Referring Provider: Brian Montesinos, [address] [place] [address], [address]. tel:[phone] Office/outpa tient visit,est, mod [facility], [facility] [place], [facility], [place] tel:[phone] [facility] general orthopedic (chief complaint) No Information 1 Trent Torres. [address] [place] [address], [address], [place]. tel:[phone] Office/outpa tient visit,est, mod [facility] [place], [facility] [place], [facility], [place] tel:[phone] [facility] No Information 9 Roberto Nevarez. [address] [place], [place], [facility], [place]. tel:[phone] Referring Provider: Weston Tamez, [address] [place], [address]. tel:[phone] [facility] [place], [facility] [place], [facility], [place] tel:[phone] [facility] No Information 9 Joi Ontiveros. [address] [place], [address], [place]. tel:[phone] [facility], [facility] [place], [address], [place] tel:[phone] [facility] No Information 9 Kruer Weston. [address] [place], [address], [place]. tel:[phone] Office/outpa tient visit,new, mod [facility] [place], [facility] [place], [facility], tel:[phone] [facility] Radiculopathy , lumbar region 8 Yannick Dobson. [address] [place] [address], [id number], . tel:[phone] Referring Provider: Scar Rodriguez, [address] [place] [address], [facility]. tel:[phone] [facility] [address], [facility], tel:[phone] [facility] No Information 8 Krbenedict Ontiveros. [address] [place], [address], [place]. tel:[phone] Office/outpa tient visit,est, mod [facility] [place], [facility] [place], [address], tel:[phone] [facility] No Information 8 Jennifer Abbott. [address] [place] [address], [facility], . tel:[phone] Office/outpa tient visit,new, mod [facility], [facility] [place], [facility], tel:[phone] [facility] No Information 8 Jennifer Abbott. [address] [place] [address], [facility], . tel:[phone] Family History Family Member Type Diagnosis Age At Onset Mother Problem (finding) Hypertension Father Problem (finding) Congenital heart diseas e Father Problem (finding) Hypertension Father Problem (finding) Thyroid disorder Father Problem (finding) Hyperlipidemia Mother Problem (finding) Cancer Father Problem (finding) Stroke Sister Problem (finding) Cancer Sister Problem (finding) Hypertension Payers Payer name Insurance type Covered alliance party ID Missael rivers(s) Medicare [place] MB [id number] [employer] Senior Supplemental - AESSI CI [id number] Social History Type Description Quantity Date Captured Comments Alcohol Use Details Unknown Caffeine Use Details Unknown Tobacco Use Status No Information Smoking Status No Information Sex Female Chief Complaint And Reason For Visit No Information Reason For Referral Reason For Referral No Information Plan Of Treatment Date Type Action Status Future Order: Radiology Order MR I Lumbar Spine WO Contrast (59313), Ordered on: Ordered History Of Present Illness Encounter Date Complaint History Of Prese nt Illness Lt knee NP3; Lt knee elio n, stiffness; Onset: 1 week knee General orthopedic New problem, right shoulder, has [...]
--- OUTSIDE RECORDS SUMMARY | 2024-12-16 13:56 | XMS_ITS | Encounter Summary ---
[facility] Address [address] [place] [address] Care Team Providers Care Housing Installer Name Role Phone Talon Barragan MD Primary Care Provider Encounter Details Date Type Department Care Team (Late st Contact Info) Description 11/10/2024 Telephone [facility] CARDIOLOGY [address] [facility] [address] [place] [address] Goyo Khan MD [address] [facility] [address] [place] [address] Social History Tobacco Use Types Packs/Day Years [...] Industry Job Start Date Job End Date [employer] Not on file Not on file Not on fi le documented as of this encounter Miscellaneous Notes * Telephone Encounter - Anitha Esparza RN - 11/10/2024 3:[address] Khan's comments to Dr. Deepika Gonzalez. Verbalized understanding. * Telephone Encounter - Anitha Esparza RN - 11/10/2024 2:54 PM EDT Pt called stating Dr. Deepika Gonzalez is requesting cardiac clearance for medication. Called Dr. Deepika Gonzalez office at [facility]. Stated because of pt's cardiac hx and pt on aspirin 81 mg, she wanted to get cardiac clearance for celebrex 200 mg BID. Pt currently tolerating 100 mg BID. Please advise. documented in this encounter Plan of Treatment Upcoming Encounters Date Type Department Care Team (Late st Contact Info) Description 01/31/2025 10:45 AM EDT Office Visit [facility] CARDIOLOGY [address] [facility] [address] [place] [address] Goyo Khan MD [address] [facility] [address] [place] [address] 09/15/2025 12:30 PM EDT Office Visit [facility] CARDIOTHORACIC SURGERY [address] [facility] [address] [place] [address] Dee Jaimes, ALLIED HEALTH INSTRUCTOR [address] [facility] [address] [place] [address] documented as of this encounter Visit Diagnoses Not on filedocumented in this encounter Care Teams Housing Installer Relationship Specialty Start Date End Date Talon Barragan MD [address] [facility] [address] [facility] [address] [place] [address] PCP - General Family Medicine 03/20/22 documented as of this encounter
--- OUTSIDE RECORDS SUMMARY | 2024-12-16 13:56 | XMS_ITS | Clinical Summary ---
Author Organization Healthcare Address [address] [place] [address] Care Team Providers Care Severity Of Illness Coordinator Name Role Phone Pcp, No Primary Care [...] (2 of 2 - PCV) 07/21/2021 07/21/2020 [id number] Vaccine ( - season) 2024 03/19/2021, 06/13/2020, [...] this topic Insurance MEDICARE AET[employer] Care Teams Severity Of Illness Coordinator Relationship Specialty Start Date End Date Rj, [place] [address] PCP - General Family Medicine 11/24/23
--- OUTSIDE RECORDS SUMMARY | 2024-12-16 13:56 | XMS_ITS | Encounter Summary ---
[facility] Address [address] [place] [address] Care Team Providers Care Digital Artist Name Role Phone Talon Barragan MD Primary Care Provider Encounter Details Date Type Department Care Team (Late st Contact Info) Description 05/08/2016 External CPT II [facility] [employer] Social History Tobacco Use [...] Description 01/31/2025 10:45 AM EDT Office Visit [facility] CARDIOLOGY [address] [facility] [address] [place] [phone] Goyo Khan MD [address] [facility] [address] [place] [address] 09/15/2025 12:30 PM EDT Office Visit [facility] CARDIOTHORACIC SURGERY [address] [facility] [address] [place] [phone] Dee Jaimes, SUPERINTENDENT TRANSPORTATION [address] [facility] [address] [place] [address] documented as of this encounter Visit Diagnoses Not on filedocumented in this encounter Care Teams Digital Artist Relationship Specialty Start Date End Date Talon Barragan MD [facility] [address] [facility] [address] [facility] [address] PCP - General Family Medicine 03/20/22 documented as of this encounter
--- OUTSIDE RECORDS SUMMARY | 2024-12-16 13:56 | XMS_ITS | Encounter Summary ---
Author Organization [facility] Address [address] [place] [address] Care Team Providers Care Door Worker Name Role Phone Talon Barragan MD Primary Care Provider Reason for Visit * Reason Comments Med Refill Encounter Details Date Type Department Care Team (Late st Contact Info) Description 10/29/2024 Refill [facility] C[facility]IOLOGY [address] [facility] [address] [place] [address] Goyo Khan MD [address] [facility] [address] [place] [address] Med Refill Social History Tobacco Use Types [...] or training? Not on file Preferred Language Bermudian 04/22/2022 Comments No Sex and Gender Information Value Date Recorded Sex Assigned at Not on file Legal Sex Female 1:29 PM EDT Gender Identity Not on file Sexual Orientation Not on file Occupation Industry Job Start Date Job End Date [employer] Not on file Not on file Not on fi le documented as of this encounter Miscellaneous Notes * Telephone Encounter - Anitha Esparza RN - 11/01/2024 8:[address] Khan CORAL continue statin and HTN tx. Lab Results Component Value Date CHOL 122 07/12/2022 CHLPL 131 06/20/2020 TRIG 96 07/12/2022 HDL 53 07/12/2022 LDL 51 07/12/2022 Lab Results Component Value Date GLUCOSE 133 (H) 06/30/2023 BUN 15 06/30/2023 CREATININE 0.90 06/30/2023 NA 139 06/30/2023 K 3.9 06/30/2023 CL 105 06/30/2023 CALCIUM 9.6 06/30/2023 PROTEINTOT 6.4 06/30/2023 ALBUMIN 4.2 06/30/2023 ALT 17 06/30/2023 AST 17 06/30/2023 ALKPHOS 75 06/30/2023 BILITOT 0.5 06/30/2023 GLOB 2.2 06/30/2023 AGRATIO 1.9 06/30/2023 BCR 17.0 06/30/2023 ANIONGAP 11.0 06/30/2023 EGFR 69.9 06/30/2023 documented in this encounter Plan of Treatment Upcoming Encounters Date Type Department Care Team (Late st Contact Info) Description 01/31/2025 10:45 AM EDT Office Visit [facility] CARDIOLOGY [address] [facility] [address] [address] [place] [phone] Goyo Khan MD [address] [facility] [address] [place] [address] 09/15/2025 12:30 PM EDT Office Visit [facility] CARDIOTHORACIC SURGERY [address] [facility] [address] [place] [phone] Dee Jaimes, COPYING MACHINE MECHANIC [address] [facility] [address] [place] [address] documented as of this encounter Visit Diagnoses Not on filedocumented in this encounter Care Teams Door Worker Relationship Specialty Start Date End Date Talon Barragan MD [address] [facility] [address] [place] [address] PCP - General Family Medicine 03/20/22 documented as of this encounter
--- OUTSIDE RECORDS SUMMARY | 2024-12-16 13:56 | XMS_ITS | Clinical Summary ---
[facility] Address [address] [place] [address] Care Team Providers Care Paper Machine Supervisor Name Role Phone Talon Barragan MD [...] tablet Take 1 tablet by mouth Daily. 3 Active montelukast (SINGULAIR) 10 MG tablet Take 1 tablet by mouth Every Night. 3 Active aspirin 81 MG EC tablet Take 1 tablet by mouth Daily. OTC 90 tablet 3 3 Active cyclobenzaprine (FLEXERIL) 5 MG tablet Take 1 tablet by mouth 3 (Three) Times a Day As Needed for Muscle Spasms. 20 tablet 4 Active diclofenac (VOLTAREN) 75 MG EC tablet Take 1 tablet by mouth Daily. 4 Active fluticasone (FLONASE) 50 MCG/ACT nasal spray As Needed. Active anastrozole (ARIMIDEX) 1 MG tablet As Needed. Active metoclopramide (REGLAN) 5 MG tablet 1 tablet As Needed. Active valsartan (DIOVAN) 160 MG tabletIndication s:Hypertension, unspecified type Take 1 tablet by mouth Daily. 90 tablet 3 4 Active potassium chloride (KLOR-CON M20) 20 MEQ CR tablet TAKE 1 TABLET BY MOUTH DAILY. 90 tablet 4 Active Additional Information Patient not taking.Reported on 09/02/2024 acyclovir (ZOVIRAX) 800 MG tablet 4 Active cefuroxime (CEFTIN) 500 MG tablet 5 Active diclofenac-miSOP ROStol (ARTHROTEC 75) 75-0.2 MG EC tablet Take 1 tablet by mouth 2 (Two) Times a Day. Active metoprolol succinate XL (TOPROL-XL) 50 MG 24 hr tablet TAKE 1 TABLET BY MOUTH DAILY. 90 tablet 1 5 Active rosuvastatin (CRESTOR) 10 MG tablet TAKE 1 TABLET BY MOUTH EVERY NIGHT. 90 tablet 1 5 Active Active Problems Problem Noted Date Diagnosed [...] Encounters Date Type Department Care Team Description 11/10/2024 Telephone [facility] [address] [facility] [address] [place] [address] Goyo Khan MD 10/29/2024 Refill [facility] [address] [facility] [address] [place] [address] Goyo Khan MD Med Refill 09/28/2024 10:56 AM EDT - 09/28/2024 11:59 PM EDT Hospital Encounter NONINVASIVE LAB [place] [address] [facility] [address] [place] [address] Goyo Khan MD Hypertension, unspecified type; Chronic stable angina Discharge Disposition: Home or Self Care 09/28/2024 Results Follow-Up [facility] [address] [facility] [address] [place] [phone] Goyo Khan MD 09/28/2024 Travel from Last 3 Months Immunizations Immunization Administration Dates Next Due COVID-19 (MODERNA) 1st,2nd,3 [...] age 33 Heart disease Father Wm. Fabricio Aamdo Heart failure Father Wm. Fabricio Amado Hypertension [...] or training? 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 Not on fi le Last Filed Vital Signs Vital Sign Reading Time Taken Comments Blood Pressure 124/80 09/02/2024 11:25 AM EDT Pulse 67 09/02/2024 11:25 AM EDT Temperature 36.2 C (97.1 F) 09/02/2024 11:24 AM EDT Respiratory Rate 18 06/30/2023 12:08 PM EST Oxygen Saturation 100% 09/02/2024 11:25 AM EDT Inhaled Oxygen Concentration - - Weight 87.1 kg (192 lb 0.3 oz) 09/28/2024 10:56 AM EDT Height 167.6 cm (5' 5.98 ) 09/28/2024 10:56 AM E DT Body Mass Index 31.01 09/28/2024 10:56 AM EDT Plan of Treatment Upcoming Encounters Date Type Department Care Team (Late st Contact Info) Description 01/31/2025 10:45 AM EDT Office Visit [facility] [address] [facility] [address] [place] [phone] Goyo Khan MD [address] [place] [address] 09/15/2025 12:30 PM EDT Office Visit [facility]ACIC [facility]GERY [address] [facility] [address] [place] [phone] Dee Jaimes, SAS ARCHITECT [address] [facility] [address] [place] [address] Health Maintenance Due Date Last Done Comments COLOGUARD 1996 COLON CANCER SCREENING 5 YEA R SIGMOIDOSCOPY 1996 CT COLONOGRAPHY 1996 FECAL OCCULT BLOOD TEST 1996 FIT Testing (1 year) 1996 TDAP/TD VACCINES (2 - Tdap) 07/29/2006 07/29/1996 ANNUAL WELLNESS VISIT 06/12/2017 HEPATITIS C SCREENING 06/12/2017 COVID-19 Vaccine (4 - 2023-2 5 season) 2024 03/19/2021, 06/13/2020, 05/16/2020 LIPID PANEL 02/11/2024 02/10/2023, 06/26, 06/26/2021, Additional history exists DXA SCAN 06/20/2024 06/20/2022, 05/27, 06/20/2022, Additional history exists INFLUENZA VACCINE 02/23/2025 04/09/2023, , 02/28/2022, Additional history exists MAMMOGRAM 08/24/2025 08/25/2023, 05/27, 04/24/2021, Additional history exists COLONOSCOPY 05/03/2029 05/03/2019, 05/26, 06/11/2016 COLORECTAL CANCER SCREENING 05/03/2029 ZOSTER VACCINE Completed 02/14/2020, 03/16/2019 Pneumococcal Vaccine 50+ Completed 02/28/2022, 06/27 Medical Devices Implanted Type Area Pencil Inspector Device Identifier Shelf Expiration Date Model / Serial / Lot Stentgr Endoprsth Tag Confrm 20f [id number] 10cm - [id number] - [id number] Implanted:Qty : 1 on 04/26/2022 by Nile Muse MD at [facility] Implant N/A: Artery Femoral [employer] [id number] 09/30/2024 [id number] / [id number] / NA Procedures Procedure Name Priority Date/Time Associated Diagnosis Comments ECHO COMPLETE W/ DOPPLER, COLOR FLOW AND CONTRAST Routine 09/28/2024 12:05 PM EDT Hypertension, unspecified type Chronic stable angina LIPID PANEL Routine 07/12/2022 11:02 AM EST Essential hypertension Dyslipidemia Routine adult health maintenance from Last 3 Months or Most Recently Relevant to Health Maintenance Results * ECHO COMPLETE W/ DOPPLER, COLOR FLOW AND CONTRAST (09/28/2024 12:05 PM EDT) Pathologist [facility] EF(MOD-bp) 72.1 % LVIDd 4.7 cm LVIDs 2.9 cm IVSd 1.00 cm LVPWd 0.90 cm FS 38.3 % IVS/LVPW 1.11 cm ESV(cubed) 24.4 ml LV Sys Vol (BSA corrected) 10.2 cm2 EDV(cubed) 103.8 ml LV Gu Vol (BSA corrected) 37.5 cm2 LV mass(C)d 153.4 grams LVOT area 3.5 cm2 LVOT diam 2.10 cm EDV(MOD-sp2) 79.4 ml EDV(MOD-sp4) 73.5 ml ESV(MOD-sp2) 23.4 ml ESV(MOD-sp4) 19.9 ml SV(MOD-sp2) 56.0 ml SV(MOD-sp4) 53.6 ml SVi(MOD-SP2) 28.6 ml/m2 SVi(MOD-SP4) 27.3 ml/m2 SVi (LVOT) 49.8 ml/m2 EF(MOD-sp2) 70.5 % EF(MOD-sp4) 72.9 % MV E max abdirashid 69.8 cm/sec MV A max abdirashid 119.0 cm/sec MV dec time 0.20 sec MV E/A 0.59 IVRT 92.0 ms LA ESV Index (BP) 17.7 ml/m2 Med Peak E' Abdirashid 6.0 cm/sec Lat Peak E' Abdirashid 10.3 cm/sec TR max abdirashid 193.0 cm/sec Avg E/e' ratio 8.56 SV(LVOT) 97.6 ml RV Base 2.9 cm RV Mid 2.5 cm RV Length 7.4 cm TAPSE (>1.6) 2.13 cm RV S' 13.7 cm/sec LA dimension (2D) 3.2 cm LV V1 max 138.3 cm/sec LV V1 max PG 7.7 mmHg LV V1 mean PG 4.3 mmHg LV V1 VTI 28.2 cm Ao pk abdirashid 146.7 cm/sec Ao max PG 8.6 mmHg Ao mean PG 4.7 mmHg Ao V2 VTI 27.8 cm LIU(I,D) 3.5 cm2 Dimensionless Index 1.01 (DI) MV max PG 5.7 mmHg MV mean PG 3.0 mmHg MV V2 VTI 28.8 cm MVA(VTI) 3.4 cm2 MV dec slope 355.0 cm/sec2 TR max PG 14.9 mmHg Ao root diam 3.2 cm RVSP(TR) 18 mmHg RAP systole 3 mmHg Ascending aorta 3.2 cm Anatomical Region Laterality Modality Ultrasound Narrative 09/28/2024 1:36 PM EDT Left ventricular systolic function is hyperdynamic (EF > 70%). Calculated left ventricular EF = 72.1% Max LV gradient 37 mmHg in apex with valsavla. At rest gradient aroudn 10 mmHg. In LVOT max gradient 7 mmHg. No LVH. Small LV cavity. Left ventricular diastolic function is consistent with (grade I) impaired relaxation. Estimated right ventricular systolic pressure from tricuspid regurgitation is normal (<35 mmHg). Calculated right ventricular systolic pressure from tricuspid regurgitation is 18 mmHg. Left Ventricle Left ventricular systolic function is hyperdynamic (EF > 70%). Calculated left ventricular EF = 72.1% Normal left ventricular cavity size and wall thickness noted. All left ventricular wall segments contract normally. Left ventricular diastolic function is consistent with (grade I) impaired relaxation. Right Ventricle Normal right ventricular cavity size, wall thickness, systolic function and septal motion noted. Left Atrium Normal left atrial size and volume noted. Right Atrium Normal right atrial cavity size noted. Mitral Valve The mitral valve is structurally normal with no regurgitation or significant stenosis present. Tricuspid Valve The tricuspid valve is structurally normal with no significant stenosis present. Trace tricuspid valve regurgitation is present. Estimated right ventricular systolic pressure from tricuspid regurgitation is normal (<35 mmHg). Calculated right ventricular systolic pressure from tricuspid regurgitation is 18 mmHg. Aortic Valve The aortic valve is structurally normal with no regurgitation or stenosis present. Pulmonic Valve The pulmonic valve is structurally normal with no regurgitation or significant stenosis present. Pericardium The pericardium is normal. There is no evidence of pericardial effusion. . Greater Vessels No dilation of the aortic root is present. The inferior vena cava is normally sized. Normal IVC inspiratory collapse of greater than 50% noted. Study Quality The quality of the study is limited due to breast implantswith poor acoustic windows. Enhancement Agent Details Verbal consent was obtained from the patient to use Lumason image enhancer in order to optimize the study. The use of Lumason was indicated to improve delineation of the left ventricular endocardial border. 5 mL of Lumason was manually activated. A total of 2 mL of the activated Lumason was administered and the remaining contrast was wasted and discarded. No adverse reaction to image enhancer was noted. us Goyo Khan MD CV ECHO ORDERABLES Iliana l Result * Lipid Panel (07/12/2022 11:02 AM EST) Total Cholesterol 122 0 - 200 mg/dL 07/12/2022 2:25 PM [facility] Triglycerides 96 0 - 150 mg/dL 07/12/2022 2:25 PM [facility] HDL Cholesterol 53 40 - 60 mg/dL 07/12/2022 2:25 PM [facility] LDL Cholesterol 51 0 - 100 mg/dL 07/12/2022 2:25 PM [facility] VLDL Cholesterol 18 5 - 40 mg/dL 07/12/2022 2:25 PM [facility] LDL/HDL Ratio 0.94 07/12/2022 2:25 PM [facility] Blood Venipuncture / Unknown 07/12/2022 11:02 AM EST 07/12/2022 11:02 AM EST [facility] - 07/12/2022 2:25 PM EST Cholesterol Reference Ranges (U.S. Department of Health and Human Services ATP III Classifications) Desirable <200 mg/dL Borderline High 200-239 mg/dL High Risk >240 mg/dL Triglyceride Reference Ranges (U.S. Department of Health and Human Services ATP III Classifications) Normal <150 mg/dL Borderline High 150-199 mg/dL High 200-499 mg/dL Very High >500 mg/dL HDL Reference Ranges (U.S. Department of Health and Human Services ATP III Classifications) Low <40 mg/dl (major risk factor for CHD) High >60 mg/dl ('negative' risk factor for CHD) LDL Reference Ranges (U.S. Department of Health and Human Services ATP III Classifications) Optimal <100 mg/dL Near Optimal 100-129 mg/dL Borderline High 130-159 mg/dL High 160-189 mg/dL Very High >189 mg/dL Keesha Claire APRN LAB BLOOD ORDERABLES Final Result [facility]
[address] [place] [address], from Last 3 Months or Most Recently Relevant to Health Maintenance Insurance MEDICARE A & B Member Subscriber Plan / Payer (Ef fective 2016-Present) Name:Juany Alarcon Member ID:[id number] Relation to Subscriber:Self Name:Juany Alarcon Subscriber ID:[id number] Payer ID:[id number] Group ID:Not on file Type:Not on file Address: [address] Advance Directives * CPR (Attempt to Resuscitate) [...] Release to patient: Routine Release Care Teams Paper Machine Supervisor Relationship Specialty Start Date End Date Talon Barragan MD [facility] [address] [facility] [address] [place] [address] PCP - General Family Medicine 03/20/22
--- OUTSIDE RECORDS SUMMARY | 2024-12-16 13:57 | XMS_ITS | Referral Summary ---
Author Organization [facility] Address [address] [facility] [place] [address] Phone Care Team Providers Care Truck Loader Overhead Crane Name Role Phone Bassem Barragan Primary Care Provider [phone] Social History Tobacco Use Types Packs/Day Years Used Date Smoking Tobacco: Never Assessed Comments Unknown Sex and Gender Information Value Date Recorded Sex Assigned at Not on file Legal Sex Female 5:01 PM EDT Gender Identity Not on file Sexual Orientation Not on file Plan of Treatment Not on file Care Teams Truck Loader Overhead Crane Relationship Specialty Start Date End Date Bassem Barragan [address] [place] [address] PCP - General 06/29/10
--- OUTSIDE RECORDS SUMMARY | 2024-12-16 13:57 | XMS_ITS | Encounter Summary ---
Author Organization [facility] [place] [address] Care Team Providers Care Case Operator Name Role Phone Carlos Manuel Barragan Primary Care Provider [phone] Encounter Details Date Type Department Care Team (Late st Contact Info) Description 11/07/2020 Lab Requisition [facility] [place] [id number] Adali Jacinto MD [address] [place] [phone] Malignant neoplasm of unspecified site of left [...] 10:15 AM EDT Office Visit [facility] [address] [place] [id number] Nikolas Jha DPM [address] [place] [address] documented as of this encounter Goals Goal [...] (HCC) documented in this encounter Results * [facility]11[facility]07[facility]2020 1:32 PM EDT) CASE REPORT Surgical Pathology Report Case: [id number] Authorizing Provider: Adali Jacinto MD Collected: 11/07/2020 1332 Ordering Location: [facility] Received: 11/07/2020 1332 Pathologist: Adali Jacinto MD Specimen: Breast, Left, Request for case [id number] 1A & 1B blocks for Breast Cancer Index. 11/30/2020 9:57 AM EDT [facility] FINAL DIAGNOSIS Breast Cancer Index report will be reported in an addendum. 11/30/2020 9:57 AM EDT [facility] at 1339 EDT EMBEDDED IMAGES 11/30/2020 9:57 AM EDT [facility] ADDENDUM Refer to Scanned [id number] Breast Cancer Index report. 11/30/2020 9:57 AM EDT [facility] Addendum electronically signed by Adali Jacinto MD on 11/30/2020 at 0957 EDT Tissue LEFT BREAST STRUCTURE / Unknown 11/07/2020 1:32 PM EDT 11/07/2020 1:32 PM EDT Adali Jacinto MD PATHOLOGY ORDERABLES Edited Resu lt - Final [facility] [address] [place] [address] documented in this encounter Visit Diagnoses Diagnosis Malignant neoplasm of unspecified site of left female breast (HCC) documented in this encounter Additional Health Concerns Assessment Noted Time A fall risk assessment has been complete d for the patient 04/26/2019 3:55 PM EST documented as of this encounter Care Teams Case Operator Relationship Specialty Start Date End Date Carlos Manuel Barragan [facility] [address] [place] [id number] PCP - General 07/03/10 documented as of this encounter
--- OUTSIDE RECORDS SUMMARY | 2024-12-16 13:57 | XMS_ITS | Clinical Summary ---
Author Organization [facility] Address [address] [place] [address] Phone Care Team Providers Care Sanipractic Physician Name Role Phone Carlos Manuel Barragan Primary Care Provider Allergies Active Allergy Reactions [...] 11:20 AM EDT Ancillary Procedure [facility] [address] [place] [address] Nikolas Jha DPM Left foot pain 09/27/2024 10:30 AM EDT Office Visit [facility] [address] [place] [address] Nikolas Jha DPM Hallux valgus with bunions [...] EXPANDERS ; Surgeon: Flaco Damon MD; Location: [facility] OR; Service: General Medical devices from this surgery are in the Medical Devices section. BREAST BIOPSY 03/03/2015 Left BREAST RECONSTRUCTION 11/16/2015 Breast/Left LEFT BREAST STAGE 2 RECONSTRUCTION WITH IMPLANT RIGHT BREAST REDUCTION FOR SYMMETRY ; Surgeon: Flaco Damon MD; Location: [facility]; Service: Plastics Medical devices from this surgery are in the Medical Devices section. BREAST REDUCTION SURGERY 11/16/2015 Breast/Right Surgeon: Flaco Damon MD; Location: [facility]; Service: Plastics Medical devices from this surgery are in the Medical Devices section. CARPAL TUNNEL RELEASE 02/12/2018 Bilateral BILATERAL CARPAL TUNNEL RELEASE ; Surgeon: Francisco Javier Lepe MD; Location: [facility]; Service: Hand TOTAL KNEE ARTHROPLASTY 09/29/2018 Knee/Left LEFT TOTAL KNEE ARTHROPLASTY; Surgeon: Brian Newman MD; Location: [facility]; Service: Orthopedics Medical devices from this surgery are in the Medical Devices section. VASCULAR SURGERY 04/26/2022 TVAR VASCULAR SURGERY 05/15/2022 Right right bracial artery cutdown and exploration, kelley thromboectomy TOE FUSION 03/22/2024 Foot/Ankle/Left first metatarsophalangeal joint fusion left foot.fifth metatarsal osteotomy left foot.left fourth and fifth hammertoe repair.; Surgeon: Nikolas Jha DPM; Location: [facility]; Service: Podiatry Medical devices from this surgery are in the Medical Devices section. TOE SURGERY 03/22/2024 Foot/Ankle/Left Surgeon: Nikolas Jha DPM; Location: [facility]; Service: Podiatry Medical devices from this surgery are in the Medical Devices section. HAMMER TOE SURGERY 03/22/2024 Foot/Ankle/Left Surgeon: Nikolas Jha DPM; Location: [facility]; Service: Podiatry Medical devices from this [...] disease Aortic aneurysm stent placed 2021 - [facility] [place] [facility] Hammer toe Bunion Family History Medical [...] 10:15 AM EDT Office Visit [facility] [place] [address] [place] [address] Nikolas Jha DPM [address] [facility] [place] [address] Health Maintenance Due Date [...] track( 021 9:11 AM EDT) No Maisha Krik, CRISTOBAL Note: Patient will be compliant with monthly Self Breast Exams and is aware of to who to contact for any unusual or concerning findings. [facility] No Alexia Kim RN Note: Patient will be compliant with monthly Self Breast Exams and is aware of to who to contact for any unusual or concerning findings. Medical Devices Implanted Type Area Prosecuting Attorney Device Identifier Shelf Expiration Date Model / Serial / Lot Right Hip Replacement Right Knee Replacement Wire Kanchan .045 X 6 Style-1 Sterile - [id number] Implanted:Qty: 1 on 10/05/2010 at [facility] Left: Tongue SIAVN:SIVAN 02/24/2020 [id number] 0 / / [id number] Wire Kanchan .045 X 6 Style-1 Sterile - [id number] Implanted:Qty: 1 on 10/05/2010 at [facility] Left: Toe SIVAN:SIVAN 03/26/2020 [id number] 0 / / [id number] Customer Contact Sales Associate Tissue Breast Cpx4 Low Height Style 8100 550cc - [id number] Implanted:Qty: 1 on 06/02/2015 by Dany Crouch MD at [facility] Left: Breast MENTOR:K[facility]IGH FLEMING [facility] [id number] 09/22/2018 [id number] / [id number] / [id number] Implant Breast Memory Shape Moderate Med Height 530cc - [id number] Implanted:Qty: 1 on 11/16/2015 by Flaco Damon MD at [facility] Left: Breast MENTOR:KALEIGH FLEMING PRDT 02/23/2018 354-1508 / [id number] / [id number] Femur Persona Ps Porous Standard Size 5 Left - [id number] Implanted:Qty: 1 on 09/29/2018 by Brian Newman MD at [facility] Left: Knee SIVAN:SIVAN 07/30/2028 13-3649-933-0 1 / [id number] Component Tibia Cemented Stemmed Persona 5 Degree Lft Sz E - [id number] Implanted:Qty: 1 on 09/29/2018 by Brian Newman MD at [facility] Left: Knee SIVAN:SIVAN 06/01/2028 [id number] / / [id number] Surface Articular Ps Fixed Persona Left 10mm (Fem 3-5tibef) - [id number] Implanted:Qty: 1 on 09/29/2018 by Brian Newman MD at [facility] Left: Knee SIVAN:SIVAN 04/01/2023 [id number] 0 / / [id number] Cement Bn Refobacin St Latex Free Disposable - [id number] Implanted:Qty: 1 on 09/29/2018 by Brian Newman MD at [facility] Left: Knee SIVAN:SIVAN 06/01/2020 [id number] / / [id number] Patella All Poly Cemented Persona 32mm 8.5mm Thickness - [id number] Implanted:Qty: 1 on 09/29/2018 by Brian Newman MD at [facility] Left: Knee SIVAN:SIVAN 06/01/2026 [id number] 2 / [id number] Extension Stem Persona Tapered Cemented 14mm +30 - [id number] Implanted:Qty: 1 on 09/29/2018 by Brian Newman MD at [facility] Left: Knee SIVAN:SIVAN 07/30/2028 [id number] 4 [id number] Pin Drill 1.8k170lc Tip Trim-It F/Shldr Impl Dlv Sys - [id number] Implanted:Qty: 1 on 03/22/2024 by Nikolas Jha DPM at [facility] Left: Foot ARTHREX 05/25/2025 AR-[id number] / / [id number] Screw 3.0mm X 14mm Kreulock Titanium - [id number] Implanted:Qty: 2 on 03/22/2024 by Nikolas Jha DPM at [facility] Left: Foot ARTHREX [id number] / / Screw 3.0mm X 18mm Kreulock Titanium - [id number] Implanted:Qty: 1 on 03/22/2024 by Nikolas Jha DPM at [facility] Left: Foot ARTHREX [id number] / / Screw 3.0mm X 16mm Kreulock Titanium - [id number] Implanted:Qty: 2 on 03/22/2024 by Nikolas Jha DPM at [facility] Left: Foot ARTHREX [id number] / / Screw Lp 3.0mm X16mm Cortical Mtp Ti - [id number] Implanted:Qty: 1 on 03/22/2024 by Nikolas Jha DPM at [facility] Left: Foot ARTHREX AR-9933-16 / / Plate Maxforce Mtp 0-0 Petite Left - [id number] Implanted:Qty: 1 on 03/22/2024 by Nikolas Jha DPM at [facility] Left: Foot ARTHREX AR-9944P-[id number] / / [...] PM EST History of breast 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 Narrative 08/25/2023 2:36 PM EDT Procedure:MM MAMMO DIGITAL VANNESA SCREEN RIGHT ~ Reason for exam: history of breast cancer, conservation therapy. Z12.31-Encounter for screening mammogram for malignant neoplasm of motlvd-DQA-43-CM ~ MM MAMMO DIGITAL VANNESA SCREEN RIGHT [...] for screening mammogram for malignant neoplasm of bbwmif-SLB-75-CM ~ MM MAMMO DIGITAL VANNESA SCREEN RIGHT CC and MLO view(s) were taken of the right breast. There are scattered fibroglandular densities. Prior study comparison: Compared with prior studies the most recentbeing 06/20/22, 04/24/21 Status post LEFT mastectomy. Status post reduction mammoplasty RIGHT breast. No new mass, distortion, or suspicious calcification. ~ IMPRESSION: Negative (DOO-Xahpfjsy-9) ~ RECOMMENDATION: Routine screening mammogram in 1 [...] the next mammogram, in accordance with the [place] [employer] and the Society of Breast Imaging recommendations. Carlos Manuel Barragan [facility] MAMMOGRAPHY ORDERABLES Iliana buck Result * DX BONE DENSITY AXIAL SKELETON (06/20/2022 12:58 PM EST) Anatomical Region Laterality Modality Dexa Scan 06/20/2022 Narrative 06/20/2022 4:08 PM EST Indication: The patient is a female age 65 or older who requires a bone density assessment. Study was performed on Brainloop 5. Bone Density: Region BMD T-score Z-score [...] last exam. Reported by: Alexia Verdin PA-C, [facility], CCD on 06/20/2022 1:56:00 PM. Dany Crouch MD IMG DEXA ORDERABLES Final R esult from Last 3 Months or Most Recently Relevant to Health Maintenance Insurance [place]ICARE [place] PART [place] AETNA SENIOR SPPLM[place]L INS Advance Directives For more information, please contact: [phone] * Full Code (Latest Code Status on File) Date Activated Date Inactivated Comments 09/29/2018 11:55 AM 10/02/2018 4:47 PM * Full Code Date Activated Date Inactivated Comments 06/02/2015 5:38 PM 06/03/2015 6:37 PM Care Teams Sanipractic Physician Relationship Specialty Start Date End Date Carlos Manuel Barragan [address] [address] [place] [address] PCP - General 07/03/10
--- OUTSIDE RECORDS SUMMARY | 2024-12-16 13:57 | XMS_ITS | Encounter Summary ---
Author Organization [facility] Address [facility] [place] [address] Care Team Providers Care Fish Bait Processing Supervisor Name Role Phone Unavailable Primary Care Provider [...] release of HIV test results or diagnoses. [id number] Health Encounter Details Date Type Department Care Team (Late st Contact Info) Description 11/17/2024 Orders Only [facility] [address] [place] [address] [place] [address] [place] [address] Neoplasm of uncertain behavior of [...] [facility] - 11/16/2024 12:00 AM EDT CASE: [id number] PATIENT: DIAMANTE EDOUARD Clinical Impression: ISK Site(s): L upper back CPT Code(s): 17579 X 1 Diagnosis: Inflamed seborrheic keratosis. Microscopic Exam: There is hyperkeratosis, papillomatosis, acanthosis and a lymphocytic infiltrate in the superficial dermis. There is no atypia. Gross Description: A specimen of skin was received measurin x 8 x 2 mm Final Diagnosis performed by ANTONIO PRADO MD Electronically signed 11/18/2024 12:11:17 PM The Pathologist signing this report is located at [facility], [address] [place] [address], [address], , CLIA ID: [id number] Charles Smith MD DERM PROCEDURE ORDERABLES Final Result [facility] documented in this encounter Visit Diagnoses Diagnosis Neoplasm of uncertain behavior of skin- Primary documented in this encounter
--- OUTSIDE RECORDS SUMMARY | 2024-12-16 13:57 | XMS_ITS | Clinical Summary ---
Author Organization [facility] Address [address] [place] [address] Care Team Providers Care Financial Foundations Representative Name Role Phone Unavailable Primary Care Provider [...] therelease of HIV test results or diagnoses. [id number] Health Encounters Date Type Department Care Team Description 11/17/2024 Orders Only [facility] [address] [place] [address] Charles Smith MD Neoplasm of uncertain behavior [...] [facility] - 11/16/2024 12:00 AM EDT CASE: [id number] PATIENT: DIAMANTE EDOUARD Clinical Impression: ISK Site(s): L upper back CPT Code(s): 56187 X 1 Diagnosis: Inflamed seborrheic keratosis. Microscopic Exam: There is hyperkeratosis, papillomatosis, acanthosis and a lymphocytic infiltrate in the superficial dermis. There is no atypia. Gross Description: A specimen of skin was received measurin x 8 x 2 mm Final Diagnosis performed by ANTONIO PRADO MD Electronically signed 11/18/2024 12:11:17 PM The Pathologist signing this report is located at [facility], [address] [place] [address], [address], , CLIA ID: [id number] Charles Smith MD DERM PROCEDURE ORDERABLES Final Result [facility] from Last 3 Months Insurance AETNA SUPPLEMENTAL MEDICARE
--- OUTSIDE RECORDS SUMMARY | 2024-12-16 13:57 | XMS_ITS | Patient Health Record ---
[facility] [address] [id number] Care Team Providers Care Pool Nurse Name Role Phone Carlos Manuel Barragan Primary Care Provider Rafael Barajas Unavailable [phone] Nettie Godinez Unavailable [phone] Allergies Allergen (clinical drug ingredient) Drug/Non Drug Allergy documented on EMR Reaction Allergy Type Onset Date Status Substance with penicillin structure and antibacterial mechanism of action (substance) Penicillins Unknown Drug Allergy Active Results Component Value Reference Range Notes Covid test (in house) Reviewed date:08/26/2024 02:31:02 PM Interpretation: Performing Lab: Notes/Report: Result: Neg Influenza Screen (in house) Reviewed date:08/20/2024 05:47:23 PM Interpretation: Performing Lab: Notes/Report: results Pos A CBC Fingerstick (in house) Reviewed date:02/23/2024 07:57:39 [...] review and pick correct strength-formulatio n from NeoSystem[employer] options. If intended option is not shown, discontinue and re-order from Quick Search* Active Potassium Chloride ER 1 P.O. Q DAY *Please review and pick correct strength-formulatio n from [employer] options. If intended option is not shown, [...] Administered COVID 19 Moderna Unknown 03/19/2021 Administered Problems Problem Type SNOMED Code ICD Code Onset Dates Problem Status W/U Status Risk Notes Problem Malignant neoplasm of female breast (802369482) Malignant neoplasm of unspecified site of left female breast (C50.912) Active confirmed Problem Vitamin D deficiency (50117088) Vitamin D deficiency (E55.9) Active confirmed Problem Essential hypertension (69029493) Essential hypertension (I10) Active confirmed Problem Obstructive sleep apnea syndrome (disorder) (34084932) Obstructive sleep apnea (adult) (pediatric) (G47.33) Active confirmed Problem Gastroesophageal reflux disease without esophagitis (782275095) Gastroesophageal reflux disease without esophagitis (K21.9) Active confirmed Problem Allergic rhinitis (56931890) Allergic rhinitis (J30.9) Active confirmed Problem Osteoarthritis of knee (595430462) Primary osteoarthritis of left knee (M17.12) Active confirmed Problem Dyslipidemia (566759745) Dyslipidemia (E78.5) Active confirmed Problem History of left mastectomy (437683664) Status post left mastectomy (Z90.12) Active confirmed Problem Seasonal allergic rhinitis (204843257) Seasonal allergic rhinitis, unspecified allergic rhinitis trigger (J30.2) Active confirmed Problem Oropharyngeal dysphagia (56958658) Oropharyngeal dysphagia (R13.12) Active confirmed Problem History of aortic aneurysm (060130214) History of aortic aneurysm (Z86.79) Active confirmed Problem 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 Vital Signs Heart Rate 95 /min 08/18/2024 Blood pressure diastolic 60 mm Hg 08/18/2024 Height 64.50 in 08/18/2024 Blood pressure systolic 110 mm Hg 08/18/2024 Weight 190.2 lbs 08/18/2024 BMI 32.14 kg/m2 08/18/2024 Encounters Encounter Location Date Provider Diagnosis [facility] [address] [facility] [address] [place], [place] [id number] 12/18/2023 Carlos Manuel Barragan Seasonal allergic rhinitis, unspecified allergic rhinitis trigger J30.2 [facility] [address] [facility] [address] [place], [place] [id number] 02/23/2024 Nettie Godinez Otitis media H66.90 [facility] [address] [facility] [address] [facility] [address] [place] [id number] 03/11/2024 R Bassem Barragan Encounter for immunization Z23 [place] [address] [facility] [address] [facility] [address] [place] [id number] 08/18/2024 Rafaelktahy BrownWalker Influenza A J10.1 [place] [address] [facility] [address] [facility] [address] [place] [id number] 02/23/2024 R Bassem Barragan Otitis media H66.90 [place] [address] [facility] [address] [facility] [address] [place] [id number] 04/20/2024 R Bassem Barragan Assessments Encounter Date Diagnosis (ICD Code) Assessment Notes Treatment Notes Treatment Clinical Notes Section Notes 02/23/2024 Otitis media (ICD-10 - H66.90) fluids, rest, supportive measures for fever/symptom relief 02/23/2024 Otitis media (ICD-10 - H66.90) 03/11/2024 Encounter for immunization (ICD-10 - Z23) 08/18/2024 Influenza A (ICD-10 - J10.1) fluids, rest, supportive measures for fever/symptom relief 12/18/2023 Seasonal allergic rhinitis, unspecified allergic rhinitis trigger (ICD-10 - J30.2) Plan Of Treatment No Information Insurance Providers Payer Name Payer Address Payer Phone Subscriber Number Group Number Insured Name Patient Relationship to Insured Coverage Start Date Coverage End Date MEDICARE PART B [address] [address] [place] [address] [phone] [id number] DIAMANTE EDOUARD Self - patient is the insured A[employer] [address] [address] [place] [address] [id number] DIAMANTE EDOUARD Self - patient is the [...] 04/28/2018 1 mL Dexamethasone 06/28/2019 1 mL Medical (General) History Medical History History ICD Code KNEE TORN MENISCUS (2005) allergic rhinitis Hypertension Left breast cancer, Dx: 2014, Grade 1 lo bular carcinoma Declined pneumonvax - 02/2016 DIOGENES - CPAP use dyslipidemia Saccular aneurysm of descending thoracic aorta, 2021 Right brachial artery thrombosis, Apr.26 Surgical History Surgery Date(Month/Year) RT Knee Arthroscopy Cholecystectomy RT Total Knee Replacement, [place] Newman [place], [place] 07/07/2007 LT Axillary Lymphnode Removal under [...]
--- OUTSIDE RECORDS SUMMARY | 2024-12-16 13:57 | XMS_ITS | Clinical Summary ---
Author Organization [facility] Address [address] [facility] [place] [address] Phone Care Team Providers Care Paper Wood Cutter Name Role Phone Bassem Barragan Primary Care Provider [phone] Social History Tobacco Use Types Packs/Day Years [...] (#1) 2001 DEXA Scan 2016 Influenza Vaccine (#1) 2025 RSV Vaccine (60+ or ) (1 [...] age to complete this topic Care Teams Paper Wood Cutter Relationship Specialty Start Date End Date Bassem Barragan [address] [place] [address] PCP - General 06/29/10
--- OUTSIDE RECORDS SUMMARY | 2024-12-16 13:57 | XMS_ITS ---
Author Organization [facility] [place] [address] Phone Care Team Providers Care Chaplaincy Name Role Phone Carlos Manuel Barragan Primary Care Provider [phone] Active Problems Problem Noted Date Diagnosed Date [...] General Information Patient name Juany Alarcon (home) [phone] (work) Date of 1950 Age 65 y.o. Care Team Medical Oncologist N/A Surgeon Dr Steven Crouch Radiation Oncologist N/A Primary Care Physician Carlos Manuel Barragan, Gynecologic Oncologist N/A Cancer Diagnosis Information Diagnosis date 02/09/2015 Diagnosis and Staging information Invasive Lobular Carcinoma - Stage 2 Tumor markers Estrogen Receptor (ER) positive; Progesterone Receptor (UT) positive; HER2 negative. Location of recurrence N/A [...] as directed by your physician at the [place] or [facility]. ??? Radiation Oncologist: Follow up every 6 months for two visits and then annually or as directed by your Radiation Oncologist at [facility] where you received your treatment or as directed. ??? Oncologist: as directed by Medical Oncologist at the the center where you received your treatment or as directed by your doctor. ??? Primary Care: Follow up annually. ??? Printing Technician: Follow up annually or as directed by Printing Technician. Diagnostic Testing ??? Mammogram: Diagnostic imaging should [...] with your body,see your regular doctor, physician assistant sales manager, or nurse practitioner. If what you are [...] Cancer Society and offered to you by [facility]. This program is designed to help you [...] The [place] [employer] and the [place] for Cancer Research have developed similar diet [...] Women???s [facility] Nurse Navigator ???s [facility] [place] Javier Roach [facility] [phone] [place] [employer] 7-178-SCA-2102 www.cancer.org Managecancer.org Managecancer.org provides links to resources that offer financial assistance for those dealing withcancer. Medical bills, medications, legal issues, travel and accommodation costs for treatment and education and employment issues that can create financial hardships. The following resources will help in lightening the financial burden of life with cancer. Cancer Support Community [place], [place]. [phone] [facility] [phone] www.cancersupport[place].org Backed by evidence that the best cancer care includes social and emotional support, [facility] offers morethan 250 free programs and services each month that are intended to provide non-medical care to individuals and families to support a holistic, patient-active approach to wellness. Cancer Family [facility] [phone] www.cancerfamilycare.org
--- NOTE | 2024-12-16 14:38 | EXP.PAIN.SOA ---
[facility] Disclaimer: The information contained in this section may have been updated after the patient was seen, as this information can be updated by other users. Medical History (Updated 12/09/24 @ 11:30 by Deepika Gonzalez APRN) Hypertension Arthritis Hyperlipidemia Surgical History History of bilateral knee replacement Family History Other No significant family history Social History Smoking Status: Never smoker second hand exposure: No alcohol intake: never substance use type: denies use current occupational status: other Travel in the last 8 weeks?: None household members: spouse housing: house current occupation: [employer] current occupational exposures/hazards: No caffeine: Yes PM Subjective & Objective Subjective Subjective:: Patient is a pleasant 74-year-old female who presents today for follow-up of her x-ray images of her bilateral SI joints and her left hip. Today she rates her pain an 8 out of 10. Patient does state that the SI pain has seemed to ease down from her last visit however does state that she still having chronic low back pain and rates it an 8 out of 10. Patient denies any new falls or injuries. Patient is currently managed with methocarbamol 1000 mg during the day and Flexeril 5 mg at bedtime as well as compounded cream. Patient was previously on diclofenac from our office however she does have a heart history and we have since discontinued this medication. Her Jose Miguel has been reviewed and is appropriate. Review of Systems: General: No recent weight changes, no fever, no sleep disturbances Respiratory: No cough, no shortness of air, no recurring pulmonary infections Cardiovascular/peripheral vascular: No chest pain, no palpitations, no edema, no shortness of breath Gastrointestinal: No new onset incontinence, normal bowel movements reported Genitourinary: No new onset incontinence Musculoskeletal: Low back pain Psychiatric: [Normal mood/affect] Neurological: [Denies weakness in extremities], [denies balance issues] Pain at rest (0-10 scale): 8 Objective Objective:: Physical Exam: General: Alert and oriented x3, no acute distress, pleasant and cooperative Lungs: Respirations even and unlabored, symmetrical chest expansion Eyes: PERRL Musculoskeletal: Flexion and extension of lumbar [spine] somewhat guarded secondary to pain, [antalgic gait noted] Neurological: Speech clear, no gross sensory deficit Has patient had previous pain injection?: No Conservative treatment options previously tried: Home exercise plan Length of treatment: Longer than 12 weeks Meds Home Medications and Allergies Home Medications ?Medication ?Instructions ?Recorded ?Confirmed ?Type anastrozole 1 mg tablet 1 mg PO DAILY cancer 03/30/19 12/16/24 History aspirin 81 mg tablet,delayed 81 mg PO DAILY Supplement 03/30/19 12/16/24 History release bisoprolol 5 1 each PO DAILY blood pressure 03/30/19 12/16/24 History mg-hydrochlorothiazide 6.25 mg tablet potassium chloride 20 mEq 20 meq PO DAILY Supplement 03/30/19 12/16/24 History tablet,extended release vitamin E 100 unit capsule 100 unit PO DAILY Supplement 03/30/19 12/16/24 History calcium polycarbophil 625 mg 1,250 mg PO DAILY Supplement 04/08/19 12/16/24 History tablet (FiberCon) rosuvastatin 10 mg tablet 10 mg PO DAILY Cholesterol 04/08/19 12/16/24 History metoclopramide HCl 5 mg tablet 5 mg PO ACHS GERD 08/04/20 12/16/24 History gabapentin 300 mg capsule 300 mg PO BID Pain 04/03/21 12/16/24 History oxybutynin chloride 5 mg 5 mg PO DAILY URINATION 04/03/21 12/16/24 History tablet,extended release 24 hr meloxicam 7.5 mg tablet 7.5 mg PO DAILY . #30 tabs 11/28/22 12/16/24 Rx meloxicam 15 mg tablet 15 mg PO DAILY #30 tabs 06/04/23 12/16/24 Rx camphor 3.1 %-methyl salicylate 10 1 patch topical TID 5 days #20 ea 08/18/23 12/16/24 Rx %-menthol 6 % topical patch (Salonpas) diclofenac sodium 75 mg 75 mg PO BID #60 tabs 07/19/24 12/16/24 Rx tablet,delayed release celecoxib 100 mg capsule 100 mg PO BID #28 caps 10/27/24 12/16/24 Rx cyclobenzaprine 5 mg tablet 5 mg PO HS PRN muscle spasm #30 10/27/24 12/16/24 Rx tabs methocarbamol 1,000 mg tablet 1,000 mg PO TID 11/24/24 12/16/24 History prednisone 20 mg tablet 20 mg PO BID #10 tabs 12/09/24 12/16/24 Rx New Prescriptions to Start Prescriptions: Allergies Allergy/AdvReac Type Severity Reaction Status Date / Time Penicillins Allergy Intermediate Rash Verified 12/23/23 12:16 morphine AdvReac Mild Confusion Verified 12/23/23 12:16 Assessment and Plan *Assessment and plan (1) Lumbar radiculopathy: Status: Acute Category: Medical Code(s): M54.16 - Radiculopathy, lumbar region (2) Degenerative joint disease (DJD) of lumbar spine: Status: Acute Qualifiers: Spinal osteoarthritis complication: with radiculopathy Qualified Code(s): M47.26 - Other spondylosis with radiculopathy, lumbar region Category: Medical Code(s): M47.816 - Spondylosis without myelopathy or radiculopathy, lumbar region Plan I did review over with the patient regarding her SI and left hip x-ray image findings. We did discuss the possibility of repeat epidural injection in the future. Patient will be sent in a new prescription of pregabalin 25 mg twice daily. We will plan on having the patient back in 2 weeks for reevaluation of symptoms and plan of care. Patient has been instructed to contact the clinic with any concerns before the next appointment. Dr. Partida has reviewed this note and agrees with this plan of care. This note was dictated using voice recognition software and make contain errors or omissions. All injections are used with Lidocaine, Bupivacaine and dexamethasone. Occasionally urine drug screen is needed to verify patient's compliance with our office pain contract. This is ordered based off specific treatments related to chronic pain with the potential to abuse certain medications.
[2024-12-16 15:04] VITALS: BP 110/62; PULSE 95; RESP 18; O2SAT 96; BMI 29.5
== END 2024-12-16 23:59 | disposition home or self-care (01) ==
PROVIDERS: PCP Family Medicine; Visit Provider Nurse Practitioner Family
DX: M47.26 Other spondylosis with radiculopathy, lumbar region (principal); Z79.899 Other long term (current) drug therapy
CPT/HCPCS: 99212; G0463

== ENCOUNTER 2025-01-03 14:01 | Outpatient (POV) | payer MEDICARE, SELFPAY ==
--- OUTSIDE RECORDS SUMMARY | 2024-03-11 07:15 | XMS_ITS ---
Author Organization [facility] Address [address] [facility] [address] [phone] Care Team Providers Care Cracker Dough Mixer Name Role Phone Carlos Manuel Barragan Primary Care Provider [phone] REASON FOR VISIT FLU SHOT Immunizations Vaccine Route Administration Date Status Comme nts Fluzone High Dose (65yr and older) IM Intramuscular 03/11/2024 Administered Encounters Encounter Location Date Provider Diagnosis [facility] [address] [facility] [address] [place] [phone] 03/11/2024 Carlos Manuel Barragan Encounter for immunization Z23 Assessments Encounter Date Diagnosis (ICD Code) Assessment Notes Treatment Notes Treatment Clinical Notes Section Notes 03/11/2024 Encounter for immunization (ICD-10 - Z23) Plan Of Treatment No Information Progress Notes * DIAMANTE EDOUARDDOB:1950 ( 74 yo F)Acc No.[id number]:03/11/2024 Patient: Carlos Manuel YARISAYIA Provider: Carlos Manuel Barragan M.D. :1950 A ge:73 Y S ex:Female Date:03/11/2024 Address:[place] [id number] Subjective: * Chief Complaints: * 1 . FLU SHOT. * Medical History: Objective: * Vitals: Assessment: * Assessment: 1. E ncounter for immunization - Z23 (Primary) Plan: * Treatment: * Immunizations: Fluzone High Dose (65yr and older) : 0.5 mL (Route: Intramuscular) given by NAIMA Bains on Left Deltoid (Encounter for immunization) * Images: Billing Information: * Visit Code: * Procedure Codes: * Electronic signature of Carlos Manuel Barragan MD on 01/03/2025 at 02:16 PM EDT Sign off status: Pending * Provider: Carlos Manuel Barragan M.D. Date: Generated for Leonel mcdonough/Ana/Julianaitting on: 0 01/03/2025 02:16 PM EDT
--- OUTSIDE RECORDS SUMMARY | 2025-01-03 14:15 | XMS_ITS | Encounter Summary ---
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 - [employer] Social History Tobacco Use [...] Description 01/31/2025 10:45 AM EDT Office Visit [facility] CARDI[facility] [address] [facility] [address] [place] [phone] Goyo Khan MD [address] [facility] [address] [place] [address] 09/15/2025 12:30 PM EDT Office Visit [facility] CARDIOTHORACIC SURGERY [address] [facility] [place] [phone] Dee Jaimes, PHARMACY DATA ANALYST [address] [facility] [address] [place] [address] documented as of this encounter Visit Diagnoses Not on filedocumented in this encounter Care Teams Prescription Eyeglass Maker Relationship Specialty Start Date End Date Talon Barragan MD [facility] [address] [facility] [address] [place] [address] PCP - General Family Medicine 03/20/22 documented as of this encounter
--- OUTSIDE RECORDS SUMMARY | 2025-01-03 14:15 | XMS_ITS ---
Author Organization Unknown Medications Date Medication Dosage DosageUnit StartDate StopDate StopReason Active DoseQuantity DoseUnit Dispense DispenseUnit Refills NdcCode DrugCode PharmacyId IsPrescription MappedMedication Srcstatus Custom 08/18 00:00 :00 Asmanex HFA 50 MCG/INH AEROSOL 1 Taking 02/22 00:00 :00 Asmanex HFA 50 MCG/INH AEROSOL 1 Taking 08/18 00:00 :00 Aspir-Low 81 MG Tablet Delayed Release 1 30 [id number] 372 Taking 02/22 00:00 :00 Aspir-Low 81 MG Tablet Delayed Release 1 30 [id number] 372 Taking 08/18 00:00 :00 Cefuroxime Axetil 500 MG Tablet 02/23/2024 00:00:00 0 20 Tablet 27809 040 101 P Discontinu ed 02/22 00:00 :00 Cefuroxime Axetil 500 MG Tablet 02/23/2024 00:00:00 1 20 Tablet 19030 040 101 P Unknown Status 02/22 00:00 :00 Cefuroxime Axetil 500 MG Tablet 02/23/2024 00:00:00 1 20 Tablet 05361 040 101 P Start 08/18 00:00 :00 Crestor 10 MG Tablet 1 71902911 090 Taking 02/22 00:00 :00 Crestor 10 MG Tablet 1 [id number] 090 Taking 08/18 00:00 :00 Diclofenac Sodium 75 MG Tablet Delayed Release 1 [id number] 106 Taking 02/22 00:00 :00 Diclofenac Sodium 75 MG Tablet Delayed Release 1 72697054 106 Taking 08/18 00:00 :00 Fluticasone Propionate 50 MCG/ACT Suspension 05/28/2022 00:00:00 1 1 2 7707350 7 099 P Taking 02/22 00:00 :00 Fluticasone Propionate 50 MCG/ACT Suspension 05/28/2022 00:00:00 1 1 2 6255313 7 099 P Taking 08/18 00:00 :00 Metoclopram beverly HCl 5 MG Tablet 0 120 2 42491 220 401 Discontinu ed 02/22 00:00 :00 Metoclopram beverly HCl 5 MG Tablet 0 120 2 51172 220 401 Not Taking 08/18 00:00 :00 Metoprolol Succinate 50 MG Capsule ER 24 Hour Sprinkle 1 30 86448317 930 Taking 02/22 00:00 :00 Metoprolol Succinate 50 MG Capsule ER 24 Hour Sprinkle 1 30 [id number] 930 Taking 12/23 00:00 :00 Montelukast Sodium 10 MG Tablet 1 30 Tablet 0 00 239468 806 Start 12/23 00:00 :00 Montelukast Sodium 10 MG Tablet 0 90 Tablet 3 00 184570 806 Stop 08/18 00:00 :00 Montelukast Sodium 10 MG Tablet 1 90 Tablet 3 00 747791 806 P Taking 02/22 00:00 :00 Montelukast Sodium 10 MG Tablet 1 90 Tablet 3 00 964047 806 P Taking 08/18 00:00 :00 Paxlovid (300/100) 20 x 150 MG & 10 x 100MG Tablet Therapy Pack 04/20/2024 00:00:00 0 30 4606512 2 103 P Discontinu ed 04/20 00:00 :00 Paxlovid (300/100) 20 x 150 MG & 10 x 100MG Tablet Therapy Pack 04/20/2024 00:00:00 1 30 [id number] 2 103 P Start 08/18 00:00 :00 Potassium Chloride ER 1 Taki ng 02/22 00:00 :00 Potassium Chloride ER 1 Taki ng 08/18 00:00 :00 valACYclovi r HCl 500 MG Tablet 0 4 Tablet 0 572 00945 230 Discontinu ed 02/22 00:00 :00 valACYclovi r HCl 500 MG Tablet 0 4 Tablet 0 572 07020 230 Not Taking 08/18 00:00 :00 Valsartan 160 MG Tablet 1 30 144226 81 477 Taking 02/22 00:00 :00 Valsartan 160 MG Tablet 1 30 076218 81 477 Taking 08/18 00:00 :00 Vitamin D3 50 MCG (1999) Capsule 1 35458782 301 Taking 02/22 00:00 :00 Vitamin D3 50 MCG (1999) Capsule 1 68861169 301 Taking 08/18 00:00 :00 ZyrTEC Allergy 10 MG Tablet 1 30 Tablet 2 0 1614972 612 P Taking 02/22 00:00 :00 ZyrTEC Allergy 10 MG Tablet 1 30 Tablet 2 0 2294189 612 P Taking
--- OUTSIDE RECORDS SUMMARY | 2025-01-03 14:16 | XMS_ITS | Encounter Summary ---
Author Organization [facility] [place] [address] Care Team Providers Care Leather Production Worker Name Role Phone Carlos Manuel Barragan Primary Care Provider [phone] Encounter Details Date Type Department Care Team (Late st Contact Info) Description 11/07/2020 Lab Requisition [facility] [place] [id number] Adali Jacinto MD [address] [place] [phone] Malignant neoplasm of unspecified site of left [...] 10:15 AM EDT Office Visit [facility] [address] [place] [phone] Nikolas Jha DPM [address] [place] [address] documented as of this encounter Goals Goal [...] (HCC) documented in this encounter Results * [facility] (11/07/2020 1:32 PM EDT) CASE REPORT Surgical Pathology Report Case: [id number] Authorizing Provider: Adali Jacinto MD Collected: 11/07/2020 1332 Ordering Location: [facility] Received: 11/07/2020 1332 Pathologist: Adali Jacinto MD Specimen: Breast, Left, Request for case [id number] 1A & 1B blocks for Breast Cancer Index. 11/30/2020 9:57 AM EDT [facility] FINAL DIAGNOSIS Breast Cancer Index report will be reported in an addendum. 11/30/2020 9:57 AM EDT [facility] at 1339 EDT EMBEDDED IMAGES 11/30/2020 9:57 AM EDT [facility] ADDENDUM Refer to Scanned [employer] Breast Cancer Index report. 11/30/2020 9:57 AM EDT [facility] Addendum electronically signed by Adali Jacinto MD on 11/30/2020 at 0957 EDT Tissue LEFT BREAST STRUCTURE / Unknown 11/07/2020 1:32 PM EDT 11/07/2020 1:32 PM EDT Adali Jacinto MD PATHOLOGY ORDERABLES Edited Resu lt - Final [facility] [address] [place] [address] documented in this encounter Visit Diagnoses Diagnosis Malignant neoplasm of unspecified site of left female breast (HCC) documented in this encounter Additional Health Concerns Assessment Noted Time A fall risk assessment has been complete d for the patient 04/26/2019 3:55 PM EST documented as of this encounter Care Teams Leather Production Worker Relationship Specialty Start Date End Date Carlos Manuel Barragan [facility] [address] [place] [id number] PCP - General 07/03/10 documented as of this encounter
--- OUTSIDE RECORDS SUMMARY | 2025-01-03 14:16 | XMS_ITS | Referral Summary ---
Author Organization [facility] Address [address] [facility] [place] [address] Phone Care Team Providers Care Music Education Adjunct Professor Name Role Phone Bassem Barragan Primary Care Provider [phone] Social History Tobacco Use Types Packs/Day Years Used Date Smoking Tobacco: Never Assessed Comments Unknown Sex and Gender Information Value Date Recorded Sex Assigned at Not on file Legal Sex Female 5:01 PM EDT Gender Identity Not on file Sexual Orientation Not on file Plan of Treatment Not on file Care Teams Music Education Adjunct Professor Relationship Specialty Start Date End Date Bassem Barragan [address] [place] [address] PCP - General 06/29/10
--- OUTSIDE RECORDS SUMMARY | 2025-01-03 14:16 | XMS_ITS ---
Author Organization [facility] [place] [place] [address] Phone Care Team Providers Care Waistband Setter Name Role Phone Carlos Manuel Barragan Primary Care Provider [phone] Active Problems Problem Noted Date Diagnosed Date [...] General Information Patient name Juany Alarcon (home) [phone] (work) Date of 1950 Age 65 y.o. [...] lymph nodes. Invasive grade 1 lobular carcinoma, La Junta score 5 (3+1+1), small scattered foci. 04/12/2015 [...] as directed by your physician at the [place] or [facility]. ??? Radiation Oncologist: Follow up every 6 months for two visits and then annually or as directed by your Radiation Oncologist at The [facility] where you received your treatment or as directed. ??? Oncologist: as directed by Medical Oncologist at the the center where you received your treatment or as directed by your doctor. ??? Primary Care: Follow up annually. ??? Manager Business Development Hospice: Follow up annually or as directed by Manager Business Development Hospice. Diagnostic Testing ??? Mammogram: Diagnostic imaging should [...] with your body,see your regular doctor, physician surgical physician assistant, or nurse practitioner. If what you [...] 4-week smoking cessation program developed by the [employer] and offered to you by [facility]. This program is designed to help [...] dietary needs that you may have. The [employer] and the [employer] have developed similar diet [...] Women???[facility] Nurse Navigator ???s [facility] [place] Javier Ro[facility] [phone] [employer] 7-076-OPR-4538 www.cancer.org Managecancer.org Managecancer.org provides links to resources that offer financial assistance for those dealing withcancer. Medical bills, medications, legal issues, travel and accommodation costs for treatment and education and employment issues that can create financial hardships. The following resources will help in lightening the financial burden of life with cancer. Cancer Support Community [place], [place]. [phone] [facility] [place]. [phone] www.cancersupport[place].org Backed by evidence that the best cancer care includes social and emotional support, [facility] offers morethan 250 free programs and services each month that are intended to provide non-medical care to individuals and families to support a holistic, patient-active approach to wellness. Cancer Family Care [phone] www.cancerfamilycare.org
--- OUTSIDE RECORDS SUMMARY | 2025-01-03 14:16 | XMS_ITS | Clinical Summary ---
Author Organization [facility] Address [address] [place] [address] Care Team Providers Care Secure Software Assessor Name Role Phone Pcp, No Primary Care [...] (2 of 2 - PCV) 07/21/2021 07/21/2020 [id number] Vaccine ( - season) 2024 03/19/2021, 06/13/2020, [...] age to complete this topic [place] [address] [employer] Care Teams Secure Software Assessor Relationship Specialty Start Date End Date Rj, [place] [address] PCP - General Family Medicine 11/24/23
--- OUTSIDE RECORDS SUMMARY | 2025-01-03 14:16 | XMS_ITS | Patient Health Record ---
[facility] [address] [id number] Care Team Providers Care Quote Clerk Name Role Phone Carlos Manuel Barragan Primary Care Provider [phone] Rafael Barajas Unavailable [phone] Nettie Godinez Unavailable [phone] Allergies Allergen (clinical drug ingredient) Drug/Non Drug [...] review and pick correct strength-formulatio n from enGenean options. If intended option is not shown, discontinue and re-order from Quick Search* Active Potassium Chloride ER 1 P.O. Q DAY *Please review and pick correct strength-formulatio n from enGenean options. If intended option is not shown, discontinue and re-order from Quick Search* Active Vitamin D3 50 MCG (2000 UT) 1 cap(s) orally once a day Active Fluticasone Propionate 50 MCG/ACT 1 spray(s) in each nostril once a day; Duration: 30 day(s) 05/28/2022 Active Valsartan 160 MG 1 tablet Orally Once a day; Duration: 30 day(s) Active Montelukast Sodium 10 MG 1 tab(s) orally once a day; Duration: 30 days Active Metoprolol Succinate 50 MG 1 [...] Status Comme nts Shingrix Unknown 02/14/2020 Administered Fluzone High Dose (65yr and older) IM Intramuscular 04/09/2023 Administered Fluzone High Dose (65yr and older) IM Intramuscular 03/11/2024 Administered COVID 19 Moderna Unknown 05/16/2020 Administered COVID 19 Moderna Unknown 06/12/2020 Administered COVID 19 Moderna Unknown 03/19/2021 Administered Hepatitis A (adult) Unknown 08/18/2018 Administered Shingrix Unknown 02/14/2020 Administered Shingrix IM Intramuscular 03/16/2019 Administered COVID 19 Moderna Unknown 06/13/2020 Administered DT, 7 YEARS OR OLDER Unknown 07/29/1996 Administered Flublok IM Intramuscular 01/25/2021 Administered Fluzone High Dose (65yr and older) IM Intramuscular 02/28/2022 Administered Hepatitis A (adult) IM Intramuscular 02/17/2018 Administer ed PNEUMOVAX 23 VACCINE IM Intramuscular 07/21/2020 Administe red Prevnar (PCV20) IM Intramuscular 02/28/2022 Administered Problems Problem Type SNOMED Code ICD Code Onset Dates Problem Status W/U Status Risk Notes Problem Malignant neoplasm of female breast (140506825) Malignant neoplasm of unspecified site of left female breast (C50.912) Active confirmed Problem Vitamin D deficiency (06294664) Vitamin D deficiency (E55.9) Active confirmed Problem Essential hypertension (88601401) Essential hypertension (I10) Active confirmed Problem Obstructive sleep apnea syndrome (disorder) (58265609) Obstructive sleep apnea (adult) (pediatric) (G47.33) Active confirmed Problem Gastroesophageal reflux disease without esophagitis (036486403) Gastroesophageal reflux disease without esophagitis (K21.9) Active confirmed Problem Allergic rhinitis (02292665) Allergic rhinitis (J30.9) Active confirmed Problem Osteoarthritis of knee (495145449) Primary osteoarthritis of left knee (M17.12) Active confirmed Problem Dyslipidemia (190005871) Dyslipidemia (E78.5) Active confirmed Problem History of left mastectomy (661976440) Status post left mastectomy (Z90.12) Active confirmed Problem Seasonal allergic rhinitis (802800275) Seasonal allergic rhinitis, unspecified allergic rhinitis trigger (J30.2) Active confirmed Problem Oropharyngeal dysphagia (43196969) Oropharyngeal dysphagia (R13.12) Active confirmed Problem History of aortic aneurysm (189081689) History of aortic aneurysm (Z86.79) Active confirmed Problem 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 Vital Signs Heart Rate 95 /min 08/18/2024 Blood pressure diastolic 60 mm Hg 08/18/2024 Height 64.50 in 08/18/2024 Blood pressure systolic 110 mm Hg 08/18/2024 Weight 190.2 lbs 08/18/2024 BMI 32.14 kg/m2 08/18/2024 Encounters Encounter Location Date Provider Diagnosis [facility] [address] [place] [id number] 02/23/2024 Nettie Godinez Otitis media H66.90 [facility] [address] [place] [id number] 03/11/2024 Carlos Manuel Barragan Encounter for immunization Z23 [facility] [address] [place], [place] [id number] 08/18/2024 Rafael Barajas Influenza A J10.1 [facility] [address] [place] [id number] 02/23/2024 Carlos Manuel Bassem Laurel Otitis media H66.90 [facility] [address] [place] [id number] 04/20/2024 Carlos Manuel Barragan Assessments Encounter Date Diagnosis (ICD Code) Assessment Notes Treatment Notes Treatment Clinical Notes Section Notes 02/23/2024 Otitis media (ICD-10 - H66.90) fluids, rest, supportive measures for fever/symptom relief 02/23/2024 Otitis media (ICD-10 - H66.90) 08/18/2024 Influenza A (ICD-10 - J10.1) fluids, rest, supportive measures for fever/symptom relief 03/11/2024 Encounter for immunization (ICD-10 - Z23) Plan Of Treatment No Information Insurance Providers Payer Name Payer Address Payer Phone Subscriber Number Group Number Insured Name Patient Relationship to Insured Coverage Start Date Coverage End Date MEDICARE PART [place] [address] [address] [place] [address] [id number] DIAMANTE EDOUARD Self - patient is the insured [employer] [address] [address] [place] [address] [id number] DIAMANTE EDOUARD Self - patient is the insured Medications Administered Medication Instructions Date of Administration Dosage Notes Depo- Medrol 40 mg/ml 04/23/2011 1 mL Dexamethasone 05/21/2016 1 mL Dexamethasone 06/28/2019 1 mL Dexamethasone 04/28/2018 1 mL Dexamethasone 04/20/2018 1 mL Dexamethasone 09/11/2015 1 mL Dexamethasone 04/08/2014 1 mL Dexamethasone 04/11/2009 1 mL Dexamethasone 07/29/2008 1 mL Depo- Medrol 40 mg/ml 03/22/2011 1.5 mL Dexamethasone 09/25/2006 1 mL Dexamethasone 10/24/2007 1 mL Dexamethasone 09/02/2008 1 mL Dexamethasone 06/27/2009 1 mL Dexamethasone 08/10/2009 1 mL Dexamethasone 06/04/2013 Dexamethasone 06/08/2013 1 mL Medical (General) History Medical History History ICD Code KNEE TORN MENISCUS (2005) allergic rhinitis Hypertension Left breast cancer, Dx: 2015, Grade 1 lo bular carcinoma Declined pneumonvax - 02/2016 DIOGENES - CPAP use dyslipidemia Saccular aneurysm of descending thoracic aorta, 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 Muse 04/26/2022 RT Brachial Artery Thrombectomy- Dr. Leon cedeno 05/15/2022 Hospitalization History Reason Date(Month/Year) Cough, Congestion- PAC 07/14/2017 Dehydration 08/2006
--- OUTSIDE RECORDS SUMMARY | 2025-01-03 14:16 | XMS_ITS | Clinical Summary ---
Author Organization [facility] Address [address] [place] [address] Care Team Providers Care Engineering Coordinator Name Role Phone Unavailable Primary Care Provider [...] therelease of HIV test results or diagnoses. [id number] Health Encounters Date Type Department Care Team Description 11/17/2024 Orders Only MEDICAL SCIENCE BUILDING [address] [place] [address] Charles Smith MD Neoplasm of uncertain behavior [...] POWERPATH - 11/16/2024 12:00 AM EDT CASE: [id number] PATIENT: DAIMANTE EDOUARD Clinical Impression: ISK Site(s): L upper back CPT Code(s): 20350 X 1 Diagnosis: Inflamed seborrheic keratosis. Microscopic Exam: There is hyperkeratosis, papillomatosis, acanthosis and a lymphocytic infiltrate in the superficial dermis. There is no atypia. Gross Description: A specimen of skin was received measurin x 8 x 2 mm Final Diagnosis performed by ANTONIO PRADO MD Electronically signed 11/18/2024 12:11:17 PM The Pathologist signing this report is located at [facility], [address] [place] [address], [address], , CLIA ID: [id number] Charles Smith MD DERM PROCEDURE ORDERABLES Final Result POWERPATH from Last 3 Months Insurance AET[employer] SUPPLEMENTAL MEDICARE
--- OUTSIDE RECORDS SUMMARY | 2025-01-03 14:16 | XMS_ITS | Clinical Summary ---
Author Organization [facility] Address [address] [place] [address] Phone Care Team Providers Care Brim Welt Sewing Machine Operator Name Role Phone Carlos Manuel Barragan Primary Care Provider [phone] Allergies Active Allergy Reactions Criticality Noted Date [...] receptors at this time (not sufficient tissue) Surgical History Surgery Date Site/Laterality Comments CHOLECYSTECTOMY TONSILLECTOMY COLONOSCOPY WISDOM TOOTH EXTRACTION TOTAL KNEE ARTHROPLASTY 05/26/2008 - 05/25/2009 Right FOOT SURGERY 10/05/2010 Left hammertoes BREAST BIOPSY 02/07/2015 Left x 4 lymph nodes removed BREAST SURGERY 06/02/2015 Left Left BREAST RECONSTRUCTION 1ST STAGE WITH EXPANDERS ; Surgeon: Flaco Damon MD; Location: [facility]; Service: General Medical devices from this surgery are in the Medical Devices section. BREAST BIOPSY 03/03/2015 Left BREAST RECONSTRUCTION 11/16/2015 Breast/Left LEFT BREAST STAGE 2 RECONSTRUCTION WITH IMPLANT RIGHT BREAST REDUCTION FOR SYMMETRY ; Surgeon: Flaco Damon MD; Location: [facility]; Service: Plastics Medical devices from this surgery are in the Medical Devices section. BREAST REDUCTION SURGERY 11/16/2015 Breast/Right Surgeon: Flaco Damon MD; Location: [facility]; Service: Plastics Medical devices from this surgery are in the Medical Devices section. CARPAL TUNNEL RELEASE 02/12/2018 Bilateral BILATERAL CARPAL TUNNEL RELEASE ; Surgeon: Francisco Javier Lepe MD; Location: [facility]; Service: Hand TOTAL KNEE ARTHROPLASTY 09/29/2018 Knee/Left LEFT TOTAL KNEE ARTHROPLASTY; Surgeon: Brian Newman MD; Location: [facility]; Service: Orthopedics Medical devices from this surgery are in the Medical Devices section. VASCULAR SURGERY 04/26/2022 TVAR VASCULAR SURGERY 05/15/2022 Right right bracial artery cutdown and exploration, kelley thromboectomy TOE FUSION 03/22/2024 Foot/Ankle/Left first metatarsophalangeal joint fusion left foot.fifth metatarsal osteotomy left foot.left fourth and fifth hammertoe repair.; Surgeon: Nikolas Jha DPM; Location: [facility]; Service: Podiatry Medical devices from this surgery are in the Medical Devices section. TOE SURGERY 03/22/2024 Foot/Ankle/Left Surgeon: Nikolas Jha DPM; Location: [facility]; Service: Podiatry Medical devices from this surgery are in the Medical Devices section. HAMMER TOE SURGERY 03/22/2024 Foot/Ankle/Left Surgeon: Nikolas Jha DPM; Location: [facility]; Service: Podiatry Medical devices from this [...] disease Aortic aneurysm stent placed 2021 - [facility] [place], [facility] Hammer toe Bunion Family History Medical History Relation Name Comments Defects Brother W.B. Heart Failure Father Thyroid Disease Father Cancer Mother Yvetta uterus Ovarian Cancer Mother Yvetta Breast Cancer Sister 1 Laine High Blood Pressure Sister 1 Laine Cancer Sister 2 Agustina Breast cancer High Blood Pressure Sister 2 Agustina Anesth Problems Neg Hx Relation Name Status Comments Brother Emili. Father Mother Yvetta Sister 1 Laine Alive [...] 10:15 AM EDT Office Visit [facility] [place] [address] [facility] [address] [place] [address] Nikolas Jha DPM [address] [place] [address] Health Maintenance Due Date Last [...] Type Associated Problems Recent Progress Patient-Stated? Author [facility] Breast Health On track( 021 9:11 AM EDT) No Maisha Kirk, RN Note: Patient will be compliant with monthly Self Breast Exams and is aware of to who to contact for any unusual or concerning findings. Breast [facility] Breast Health No Alexia Kim RN Note: Patient will be compliant with monthly Self Breast Exams and is aware of to who to contact for any unusual or concerning findings. Medical Devices Implanted Type Area Music Educator Device Identifier Shelf Expiration Date Model / Serial / Lot Right Hip Replacement Right Knee Replacement Wire Kanchan .045 X 6 Style-1 Sterile - [id number] Implanted:Qty: 1 on 10/05/2010 at [facility] Left: Tongue SIVAN:SIVAN 02/24/2020 61-1178-988-0 0 / / [id number] Wire Kanchan .045 X 6 Style-1 Sterile - [id number] Implanted:Qty: 1 on 10/05/2010 at [facility] Left: Toe SIVAN:SIVAN 03/26/2020 [id number] 0 / / [id number] Steel Grinder Tissue Breast Cpx4 Low Height Style 8100 550cc - [id number] Implanted:Qty: 1 on 06/02/2015 by Dany Crouch MD at [facility] Left: Breast MENTOR:AESTHETI PRDT [id number] 09/22/2018 [id number] / [id number] / [id number] Implant Breast Memory Shape Moderate Med Height 530cc - [id number] Implanted:Qty: 1 on 11/16/2015 by Flaco Damon MD at [facility] Left: Breast MENTOR:AESTHETI CS PRDT 02/23/2018 [id number] / [id number] / [id number] Femur Persona Ps Porous Standard Size 5 Left - [id number] Implanted:Qty: 1 on 09/29/2018 by Brian Newman MD at [facility] Left: Knee SIVAN:SIVAN 07/30/2028 [id number] 1 / / [id number] Component Tibia Cemented Stemmed Persona 5 Degree Lft Sz E - [id number] Implanted:Qty: 1 on 09/29/2018 by Brian Newman MD at [facility] Left: Knee SIVAN:SIVAN 06/01/2028 [id number] / / [id number] Surface Articular Ps Fixed Persona Left 10mm (Fem 3-5tibef) - [id number] Implanted:Qty: 1 on 09/29/2018 by Brian Newman MD at [facility] Left: Knee SIVAN:SIVAN 04/01/2023 [id number] 0 / / [id number] Cement Bn Refobacin St Latex Free Disposable - [id number] Implanted:Qty: 1 on 09/29/2018 by Brian Newman MD at [facility] Left: Knee SIVAN:SIVAN 06/01/2020 [id number] / / [id number] Patella All Poly Cemented Persona 32mm 8.5mm Thickness - [id number] Implanted:Qty: 1 on 09/29/2018 by Brian Newman MD at [facility] Left: Knee SIVAN:SIVAN 06/01/2026 [id number] Extension Stem Persona Tapered Cemented 14mm +30 - [id number] Implanted:Qty: 1 on 09/29/2018 by Brian Newman MD at [facility] Left: Knee SIVAN:SIVAN 07/30/2028 [id number] Pin Drill 1.7k771oh Tip Trim-It F/Shldr Impl Dlv Sys - [id number] Implanted:Qty: 1 on 03/22/2024 by Nikolas Jha DPM at [facility] Left: Foot ARTHREX 05/25/2025 [id number] / / [id number] Screw 3.0mm X 14mm Kreulock Titanium - [id number] Implanted:Qty: 2 on 03/22/2024 by Nikolas Jha DPM at [facility] Left: Foot ARTHREX [id number] / / Screw 3.0mm X 18mm Kreulock Titanium - [id number] Implanted:Qty: 1 on 03/22/2024 by Nikolas Jha DPM at [facility] Left: Foot ARTHREX [id number] / / Screw 3.0mm X 16mm Kreulock Titanium - [id number] Implanted:Qty: 2 on 03/22/2024 by Nikolas Jha DPM at [facility] Left: Foot ARTHREX [id number] / / Screw Lp 3.0mm X16mm Cortical Mtp Ti - [id number] Implanted:Qty: 1 on 03/22/2024 by Nikolas Jha DPM at [facility] Left: Foot ARTHREX AR-9933-16 / / Plate Maxforce Mtp 0-0 Petite Left - [id number] Implanted:Qty: 1 on 03/22/2024 by Nikolas Jha DPM at [facility] Left: Foot ARTHREX [id number] / / Procedures Procedure Name Priority Date/Time Associated Diagnosis Comments MM MAMMO DIGITAL VANNESA SCREEN RIGHT Routine 08/25/2023 1:12 PM EDT Encounter for screening mammogram for malignant neoplasm of breast DX BONE DENSITY AXIAL SKELETON Routine 06/20/2022 12:58 PM EST History of breast cancer 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 Narrative 08/25/2023 2:36 PM EDT Procedure:MM MAMMO DIGITAL VANNESA SCREEN RIGHT ~ Reason for exam: history of breast cancer, conservation therapy. Z12.31-Encounter for screening mammogram for malignant neoplasm of caklgy-XRL-41-CM ~ MM MAMMO DIGITAL VANNESA SCREEN RIGHT [...] for screening mammogram for malignant neoplasm of bzkcxj-HVH-00-CM ~ MM MAMMO DIGITAL VANNESA SCREEN RIGHT CC and MLO view(s) were taken of the right breast. There are scattered fibroglandular densities. Prior study comparison: Compared with prior studies the most recentbeing 06/20/22, 04/24/21 Status post LEFT mastectomy. Status post reduction mammoplasty RIGHT breast. No new mass, distortion, or suspicious calcification. ~ IMPRESSION: Negative (IPY-Hummokfm-8) ~ RECOMMENDATION: Routine screening mammogram in 1 [...] the next mammogram, in accordance with the [employer] and the Society of Breast Imaging recommendations. [facility] Bassem Garciaeet [facility] MAMMO[place]APHY ORDERABLES Iliana l Result * DX BONE DENSITY AXIAL SKELETON (06/20/2022 12:58 PM EST) Anatomical Region Laterality Modality Dexa Scan 06/20/2022 Narrative 06/20/2022 4:08 PM EST Indication: The patient is a female age 65 or older who requires a bone density assessment. Study was performed on [employer] 5. Bone Density: Region BMD T-score Z-score [...] 0.947 0.0 -1.4% 05/17/2016 66 0.960 0.1 1/3 Forearm(Left) 06/20/2022 72 0.589 -1.7 -0.7% 04/19/2019 [...] PA-C, MMS, CCD on 06/20/2022 1:56:00 PM. Dany Crouch MD IMG DEXA ORDERABLES Final R esult from Last 3 Months or Most Recently Relevant to Health Maintenance Insurance [place] [address] AETNA [facility] MEDICARE [place] PART A [place] B [place]ARE [place] PART A [place] Advance Directives For more information, please contact: [phone] * Full Code (Latest Code Status on File) Date Activated Date Inactivated Comments 09/29/2018 11:55 AM 10/02/2018 4:47 PM * Full Code Date Activated Date Inactivated Comments 06/02/2015 5:38 PM 06/03/2015 6:37 PM Care Teams Brim Welt Sewing Machine Operator Relationship Specialty Start Date End Date Carlos Manuel Barragan [address] [place] [address] [address] [place]ORGE QUINTANILL[place] [address] PCP - General 07/03/10
--- OUTSIDE RECORDS SUMMARY | 2025-01-03 14:16 | XMS_ITS | Encounter Summary ---
Author Organization [facility] Address [facility] [place] [address] Care Team Providers Care Lathe Spotter Name Role Phone Unavailable Primary Care Provider [...] release of HIV test results or diagnoses. [id number] Health Encounter Details Date Type Department Care Team (Late st Contact Info) Description 11/17/2024 Orders Only MEDICAL SCIENCE BUILDING [address] [place] [address] [place] [address] [place] [address] Neoplasm of uncertain behavior of [...] POWERPATH - 11/16/2024 12:00 AM EDT CASE: [id number] PATIENT: DIAMANTE EDOUARD Clinical Impression: ISK Site(s): L upper back CPT Code(s): 25641 X 1 Diagnosis: Inflamed seborrheic keratosis. Microscopic Exam: There is hyperkeratosis, papillomatosis, acanthosis and a lymphocytic infiltrate in the superficial dermis. There is no atypia. 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
--- OUTSIDE RECORDS SUMMARY | 2025-01-03 14:16 | XMS_ITS | Encounter Summary ---
Author Organization [facility] Address [address] [place] [address] Care Team Providers Care Parking Regulation Enforcement Officer Name Role Phone Talon Barragan MD Primary Care Provider Encounter Details Date Type Department Care Team (Late st Contact Info) Description 11/10/2024 Telephone [facility] CARDIOLOGY [address] [facility] [address] [place] [address] Goyo Khan MD [address] [facility] [address] [place] [address] Social History Tobacco Use Types Packs/Day Years [...] or training? 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 Called Dr. Deepika Gonzalez office at [facility]. Stated because of pt's cardiac hx and pt on aspirin 81 mg, she wanted to get cardiac clearance for celebrex 200 mg BID. Pt currently tolerating 100 mg BID. Please advise. documented in this encounter Plan of Treatment Upcoming Encounters Date Type Department Care Team (Late st Contact Info) Description 01/31/2025 10:45 AM EDT Office Visit [facility] C[facility]IOLOGY [address] [facility] [address] [place] [address] Goyo Khan MD [address] [facility] [address] [place] [address] 09/15/2025 12:30 PM EDT Office Visit [facility] CARDIOTHORACIC SURGERY [address] [facility] [address] [place] [address] Dee Jaimes, MICROPHONE OPERATOR [address] [facility] [address] [place] [address] documented as of this encounter Visit Diagnoses Not on filedocumented in this encounter Care Teams Parking Regulation Enforcement Officer Relationship Specialty Start Date End Date Talon Barragan MD [address] [facility] [address] [facility] [address] [place] [address] PCP - General Family Medicine 03/20/22 documented as of this encounter
--- OUTSIDE RECORDS SUMMARY | 2025-01-03 14:16 | XMS_ITS | Clinical Summary ---
[facility] Address [address] [place] [address] Care Team Providers Care Talent Development Manager Name Role Phone Talon Barragan MD [...] Type Department Care Team Description 11/10/2024 Telephone [facility] CARDIOLOGY [address] [place] [address] Goyo Khan MD 10/29/2024 Refill [facility] [address] [facility] [address] [place] [address] Goyo Khan MD Med Refill from Last 3 Months Immunizations Immunization Administration [...] or training? 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 Not [...] Description 01/31/2025 10:45 AM EDT Office Visit [facility] CARDIOLOG[facility] [address] [facility] [address] [place] [address] Goyo Khan MD [address] [facility] [address] [place] [address] 09/15/2025 12:30 PM EDT Office Visit [facility] CARDIOTHORACIC SURGERY [address] [facility] [address] [place] [address] Dee Jaimes APRN [address] [facility] [address] [place] [address] Health Maintenance Due Date Last Done Comments COLOGUARD 1996 COLON CANCER SCREENING 5 YEA R SIGMOIDOSCOPY 1996 [address] COLONOGRAPHY 1996 FECAL OCCULT BLOOD TEST 1996 FIT Testing (1 year) 1996 TDAP/TD VACCINES (2 - Tdap) 07/29/2006 07/29/1996 ANNUAL WELLNESS VISIT 06/12/2017 HEPATITIS C SCREENING 06/12/2017 COVID-19 Vaccine (2023-2 5 season) 2024 03/19/2021, 06/13/2020, 05/16/2020 LIPID [...] 02/28/2022, 06/27 Medical Devices Implanted Type Area Inspector Conveyor Line Device Identifier Shelf Expiration Date Model / Serial / Lot Stentgr Endoprsth Tag Confrm 20f [id number] 10cm - [id number] - [id number] Implanted:Qty : 1 on 04/26/2022 by Nile Muse MD at [facility] Implant N/A: Artery Femoral [employer] [id number] 09/30/2024 [id number] / [id number] / NA Procedures Procedure Name Priority Date/Time Associated Diagnosis Comments LIPID PANEL Routine 07/12/2022 11:02 AM EST Essential hypertension Dyslipidemia Routine adult health maintenance from Last 3 Months or Most Recently Relevant to Health Maintenance Results * Lipid Panel (07/12/2022 11:02 AM EST) Total Cholesterol 122 0 - 200 mg/dL 07/12/2022 2:25 PM EST [facility] Triglycerides 96 0 - 150 mg/dL 07/12/2022 2:25 PM EST [facility] HDL Cholesterol 53 40 - 60 mg/dL 07/12/2022 2:25 PM EST [facility] LDL Cholesterol 51 0 - 100 mg/dL 07/12/2022 2:25 PM EST [facility] VLDL Cholesterol 18 5 - 40 mg/dL 07/12/2022 2:25 PM EST [facility] LDL/HDL Ratio 0.94 07/12/2022 2:25 PM EST [facility] Blood Venipuncture / Unknown 07/12/2022 11:02 AM EST 07/12/2022 11:02 AM EST Narrative [facility] - 07/12/2022 2:25 PM EST Cholesterol [...] Claire APRN LAB BLOOD ORDERABLES Final Result [facility]
[address] [place] [address], from Last 3 Months or Most Recently Relevant to Health Maintenance Insurance MEDICARE A & B [facility] SUP Advance Directives * CPR (Attempt to Resuscitate) [...] Release to patient: Routine Release Care Teams Talent Development Manager Relationship Specialty Start Date End Date Talon Barragan MD [facility] [place] [facility] [address] [place] [address] PCP - General Family Medicine 03/20/22
--- OUTSIDE RECORDS SUMMARY | 2025-01-03 14:16 | XMS_ITS | Clinical Summary ---
Author Organization [facility] Address [address] [facility], [place] [address] Phone Care Team Providers Care Welder Name Role Phone Bassem Barragan Primary Care Provider [phone] Social History Tobacco Use Types Packs/Day Years [...] age to complete this topic Care Teams Welder Relationship Specialty Start Date End Date Bassem Barragan [address] [place] [address] PCP - General 06/29/10
--- NOTE | 2025-01-03 14:25 | EXP.PAIN.SOA ---
[facility] Disclaimer: The information contained in this section may have been updated after the patient was seen, as this information can be updated by other users. Medical History (Updated 12/09/24 @ 11:30 by Deepika Gonzalez APRN) Hypertension Arthritis Hyperlipidemia Surgical History History of bilateral knee replacement Family History Other No significant family history Social History Smoking Status: Never smoker second hand exposure: No alcohol intake: never substance use type: denies use current occupational status: other Travel in the last 8 weeks?: None household members: spouse housing: house current occupation: [employer] current occupational exposures/hazards: No caffeine: Yes PM Subjective & Objective Subjective Subjective:: Patient is a pleasant 74-year-old female who presents today for follow-up and worsening low back and left leg symptoms. She rates her pain today a 5 out of 10. She denies any new trauma or injury. She does state her pain is still all they are in her low back and does radiate into her left leg to around her knee. She describes it with numbness and tingling. She does state the pain interferes with her ability perform activities of daily living such as cooking and cleaning. Patient has had prior lumbar epidurals in the past that have provided significant relief and she would like to see about getting scheduled for another injection. Patient has been ordered pregabalin 25 mg twice a day from our office from her last visit and she does state that this helped however she felt like her appetite was actually increased. Patient states that it did help a lot of the numbness and tingling. Her Jose Miguel has been reviewed and is appropriate. Review of Systems: General: No recent weight changes, no fever, no sleep disturbances Respiratory: No cough, no shortness of air, no recurring pulmonary infections Cardiovascular/peripheral vascular: No chest pain, no palpitations, no edema, no shortness of breath Gastrointestinal: No new onset incontinence, normal bowel movements reported Genitourinary: No new onset incontinence Musculoskeletal: Low back pain, left leg numbness tingling Psychiatric: [Normal mood/affect] Neurological: [Denies weakness in extremities], [denies balance issues] Pain at rest (0-10 scale): 5 Objective Objective:: Physical Exam: General: Alert and oriented x3, no acute distress, pleasant and cooperative Lungs: Respirations even and unlabored, symmetrical chest expansion Eyes: PERRL Musculoskeletal: Flexion and extension of lumbar [spine] somewhat guarded secondary to pain, [antalgic gait noted] positive leg raise Neurological: Speech clear, no gross sensory deficit Has patient had previous pain injection?: No Conservative treatment options previously tried: Home exercise plan Length of treatment: Longer than 12 weeks Meds Home Medications and Allergies Home Medications ?Medication ?Instructions ?Recorded ?Confirmed ?Type anastrozole 1 mg tablet 1 mg PO DAILY cancer 03/30/19 12/16/24 History aspirin 81 mg tablet,delayed 81 mg PO DAILY Supplement 03/30/19 12/16/24 History release bisoprolol 5 1 each PO DAILY blood pressure 03/30/19 12/16/24 History mg-hydrochlorothiazide 6.25 mg tablet potassium chloride 20 mEq 20 meq PO DAILY Supplement 03/30/19 12/16/24 History tablet,extended release vitamin E 100 unit capsule 100 unit PO DAILY Supplement 03/30/19 12/16/24 History calcium polycarbophil 625 mg 1,250 mg PO DAILY Supplement 04/08/19 12/16/24 History tablet (FiberCon) rosuvastatin 10 mg tablet 10 mg PO DAILY Cholesterol 04/08/19 12/16/24 History metoclopramide HCl 5 mg tablet 5 mg PO ACHS GERD 08/04/20 12/16/24 History gabapentin 300 mg capsule 300 mg PO BID Pain 04/03/21 12/16/24 History oxybutynin chloride 5 mg 5 mg PO DAILY URINATION 04/03/21 12/16/24 History tablet,extended release 24 hr meloxicam 7.5 mg tablet 7.5 mg PO DAILY . #30 tabs 11/28/22 12/16/24 Rx meloxicam 15 mg tablet 15 mg PO DAILY #30 tabs 06/04/23 12/16/24 Rx camphor 3.1 %-methyl salicylate 10 1 patch topical TID 5 days #20 ea 08/18/23 12/16/24 Rx %-menthol 6 % topical patch (Salonpas) diclofenac sodium 75 mg 75 mg PO BID #60 tabs 07/19/24 12/16/24 Rx tablet,delayed release celecoxib 100 mg capsule 100 mg PO BID #28 caps 10/27/24 12/16/24 Rx cyclobenzaprine 5 mg tablet 5 mg PO HS PRN muscle spasm #30 10/27/24 12/16/24 Rx tabs methocarbamol 1,000 mg tablet 1,000 mg PO TID 11/24/24 12/16/24 History prednisone 20 mg tablet 20 mg PO BID #10 tabs 12/09/24 12/16/24 Rx pregabalin 25 mg capsule 25 mg PO BID #40 caps 12/16/24 Rx New Prescriptions to Start Prescriptions: Allergies Allergy/AdvReac Type Severity Reaction Status Date / Time Penicillins Allergy Intermediate Rash Verified 12/23/23 12:16 morphine AdvReac Mild Confusion Verified 12/23/23 12:16 Assessment and Plan *Assessment and plan (1) Lumbar radiculopathy: Status: Acute Category: Medical Code(s): M54.16 - Radiculopathy, lumbar region (2) Degenerative joint disease (DJD) of lumbar spine: Status: Acute Qualifiers: Spinal osteoarthritis complication: with radiculopathy Qualified Code(s): M47.26 - Other spondylosis with radiculopathy, lumbar region Category: Medical Code(s): M47.816 - Spondylosis without myelopathy or radiculopathy, lumbar region Plan Patient is experiencing worsening pain in her low back with numbness and tingling into her left leg. Patient did have limited range of motion of her lumbar spine with a positive leg raise. I did discuss with patient that I do believe they would benefit from a lumbar epidural steroid injection. Risk and benefits were discussed with patient and the patient would like to proceed forward with this plan of care. Patient is not on any blood thinners. Patient has tried and failed conservative therapy including oral medications, heat and ice, topicals and continued at home stretching exercise for longer than 12 weeks between injections that was physician guided. Patient has had chronic back pain for longer than 6 months. Patient did previously have a lumbar epidural back in September at the L4-L5 level and it did not do as well as her previous epidurals. Patient had her most significant injection recently in April 2024 at the L3-L4 level that did provide 80% relief and lasted longer than 3 months. We will schedule the patient for an LESI L3-L4 under fluoroscopy. We did also discuss the pregabalin and I have recommended that she can try taking the 25 mg 2 tablets at bedtime and see if this does ease down the increased appetite. We will send in a 1 month supply. Patient agrees with this plan of care. Patient has been instructed to contact the clinic with any concerns before the next appointment. Dr. Partida has reviewed this note and agrees with this plan of care. This note was dictated using voice recognition software and make contain errors or omissions. All injections are used with Lidocaine, Bupivacaine and dexamethasone. Occasionally urine drug screen is needed to verify patient's compliance with our office pain contract. This is ordered based off specific treatments related to chronic pain with the potential to abuse certain medications.
[2025-01-03 14:28] VITALS: BP 152/72; PULSE 77; RESP 18; O2SAT 97; BMI 29.8
== END 2025-01-03 23:59 | disposition home or self-care (01) ==
PROVIDERS: PCP Family Medicine; Visit Provider Nurse Practitioner Family
DX: M47.26 Other spondylosis with radiculopathy, lumbar region (principal); Z79.899 Other long term (current) drug therapy
CPT/HCPCS: 99212; G0463

== ENCOUNTER 2025-02-15 08:21 | Day surgery (SDC) | payer MEDICARE, SELFPAY ==
[2025-02-15 08:39] VITALS: BP 143/68; PULSE 71; RESP 18; O2SAT 96; BMI 29.0
[2025-02-15] MEDS: DEXAMETHASONE 10MG/ML 1ML VIAL 10 MG (08:55)
[2025-02-15 08:56] VITALS: BP 146/52; PULSE 64; RESP 18; O2SAT 96
[2025-02-15 08:59] VITALS: BP 146/52; PULSE 64; RESP 18; O2SAT 96
--- NOTE | 2025-02-15 08:59 | EXP.PAIN.PRO ---
Procedure Date: 02/15/25 Time: 08:30 Anesthesiologist:: Scar Knott CRNA Complications:: None Pre-procedure Diagnosis:: Degenerative disc lumbar spine multilevels. Lumbar radiculopathy. Lumbar postlaminectomy syndrome. Lumbar disc bulge multilevel. Lumbar spondylosis. Multilevel lumbar facet arthropathy. Post-procedure Diagnosis:: Same. Indications for Procedure:: Patient is a very pleasant 74-year-old female who comes our clinic today for lumbar epidural steroid injection at the L3-4 level. However, we are unable to access the L3-4 level. The injection was given at the L4-5 level. She describes low lumbar back pain as well as bilateral hip and leg pain is constant, dull, aching. She rates her pain today 8/10. Procedure Details:: Procedure: Lumbar epidural steroid injection under fluoroscopy Informed consent was obtained and the risks and benefits of the procedure were explained to the patient. The patient was taken to the procedure room and noninvasive monitors placed, including noninvasive blood pressure cuff and pulse oximeter. The back was viewed using C-arm Fluoroscopy and prepped using Chloraprep as a cleansing solution and the L4-L5 interspace was palpated. Skin and subcutaneous tissues were anesthetized using lidocaine 1.5% and a 25-gauge needle. After this, an 18-gauge Touhy epidural needle was placed into the L4-L5 interspace and advanced using fluoroscopic guidance and loss of resistance to air until the epidural space was encountered. After confirmation of needle placement in the epidural space, with dye, a solution containing normal saline, 3 mL and dexamethasone 10 mg were incrementally injected into the lumbar epidural space. The patient tolerated the procedure well with no complications. The patient was observed in the Pain Clinic and then discharged home neurologically intact. Plan and Disposition:: Patient was discharged without incident.
[2025-02-15 09:00] VITALS: BP 133/71; PULSE 70; RESP 18; O2SAT 96
== END 2025-02-15 09:00 | disposition home or self-care (01) ==
PROVIDERS: PCP Family Medicine; Visit Provider Nurse Anesthetist, Certified Registered
DX: M51.16 Intervertebral disc disorders with radiculopathy, lumbar region (principal); M47.26 Other spondylosis with radiculopathy, lumbar region; M96.1 Postlaminectomy syndrome, not elsewhere classified; I10 Essential (primary) hypertension; M17.0 Bilateral primary osteoarthritis of knee; E78.5 Hyperlipidemia, unspecified; Z88.0 Allergy status to penicillin; Z88.5 Allergy status to narcotic agent; Z79.1 Long term (current) use of non-steroidal anti-inflammatories (NSAID); Z79.899 Other long term (current) drug therapy
CPT/HCPCS: 62323; J1100

== ENCOUNTER 2025-03-18 15:37 | Day surgery (SDC) | payer MEDICARE, SELFPAY ==
[2025-03-18 15:39] VITALS: BP 150/73; PULSE 82; RESP 16; O2SAT 96; BMI 30.2
--- NOTE | 2025-03-18 16:12 | EXP.HP ---
History of Present Illness *Admission Date: 03/18/25 *Reason for visit:: Left hip injection *History of present illness: This patient presents with increasing left hip pain. We did a left hip intra-articular injection today. [facility] Disclaimer: The information contained in this section may have been updated after the patient was seen, as this information can be updated by other users. Medical History Hypertension Arthritis Hyperlipidemia Surgical History History of bilateral knee replacement Family History Other No significant family history Social History Smoking Status: Never smoker second hand exposure: No alcohol intake: never substance use type: denies use current occupational status: other Travel in the last 8 weeks?: None household members: spouse housing: house current occupation: [employer] current occupational exposures/hazards: No caffeine: Yes Have you lived/traveled outside [place] in past 30 days?: No Contact w/someone who lives/traveled outside [place] past 30 days?: No Exposure to someone with infectious disease in past 14 days?: No Do you have a fever (greater than 100.4 F or 38 C)?: No Have you tested positive for COVID-19?: No Exposed to someone with COVID-19 in past 14 days?: No Do you have a sore throat?: No Do you have a cough?: No Do you have any weakness?: No Do you have any diarrhea?: No Are you experiencing any unusual bleeding?: No Do you have any muscle aches/pain?: No Do you have any abdominal pain?: No Are you experiencing loss of taste or smell?: No Other Medical History Have you received the Flu Vaccine for this season: No Have you received the Pneumonia Vaccine: No Review of Systems Review of Systems Review of systems:: pertinent systems reviewed and negative unless documented below Meds Home Medications and Allergies Home Medications ?Medication ?Instructions ?Recorded ?Confirmed ?Type anastrozole 1 mg tablet 1 mg PO DAILY cancer 03/30/19 03/18/25 History aspirin 81 mg tablet,delayed 81 mg PO DAILY Supplement 03/30/19 03/18/25 History release bisoprolol 5 1 each PO DAILY blood pressure 03/30/19 03/18/25 History mg-hydrochlorothiazide 6.25 mg tablet potassium chloride 20 mEq 20 meq PO DAILY Supplement 03/30/19 03/18/25 History tablet,extended release vitamin E 100 unit capsule 100 unit PO DAILY Supplement 03/30/19 03/18/25 History calcium polycarbophil 625 mg 1,250 mg PO DAILY Supplement 04/08/19 03/18/25 History tablet (FiberCon) rosuvastatin 10 mg tablet 10 mg PO DAILY Cholesterol 04/08/19 03/18/25 History metoclopramide HCl 5 mg tablet 5 mg PO ACHS GERD 08/04/20 03/18/25 History gabapentin 300 mg capsule 300 mg PO BID Pain 04/03/21 03/18/25 History oxybutynin chloride 5 mg 5 mg PO DAILY URINATION 04/03/21 03/18/25 History tablet,extended release 24 hr meloxicam 7.5 mg tablet 7.5 mg PO DAILY . #30 tabs 11/28/22 03/18/25 Rx meloxicam 15 mg tablet 15 mg PO DAILY #30 tabs 06/04/23 03/18/25 Rx camphor 3.1 %-methyl salicylate 10 1 patch topical TID 5 days #20 ea 08/18/23 03/18/25 Rx %-menthol 6 % topical patch (Salonpas) diclofenac sodium 75 mg 75 mg PO BID #60 tabs 07/19/24 03/18/25 Rx tablet,delayed release celecoxib 100 mg capsule 100 mg PO BID #28 caps 10/27/24 03/18/25 Rx methocarbamol 1,000 mg tablet 1,000 mg PO TID 11/24/24 03/18/25 History pregabalin 25 mg capsule 25 mg PO BID #60 caps 01/03/25 03/18/25 Rx cyclobenzaprine 5 mg tablet 5 mg PO HS PRN muscle spasm #30 02/07/25 03/18/25 Rx tabs amitriptyline 10 mg tablet 10 mg PO HS #30 tabs 02/16/25 03/18/25 Rx prednisone 20 mg tablet 20 mg PO BID #10 tabs 03/09/25 03/18/25 Rx New Prescriptions to Start Prescriptions: Allergies Allergy/AdvReac Type Severity Reaction Status Date / Time Penicillins Allergy Intermediate Rash Verified 03/09/25 09:55 morphine AdvReac Mild Confusion Verified 03/09/25 09:55 Exam Data for Last 24 hours Vital signs and Labs for Last 24 Hours: Pulse Resp BP Pulse Ox O2 Del Method 82 16 150/73 H 96 Room Air 03/18/25 15:39 03/18/25 15:39 03/18/25 15:39 03/18/25 15:39 03/18/25 15:39 I & O for Last 24 hours: Intake & Output 03/16/25 03/17/25 03/18/25 03/19/25 11:59 11:59 11:59 11:59 Weight 187 lb *Routine HEENT Exam Head: Present normocephalic Eye: Present EOMI ENT: Present mucous membranes moist *Routine Respiratory Exam Respiratory: Present CTA bilaterally *Routine Cardiovascular Exam Cardiovascular: Present RRR and Normal S2 *Routine Abdominal Exam Abdominal: Present soft *Routine Rectal Exam Rectal:: deferred *Routine Genitalia Exam Genitalia:: deferred Assessment and Plan *Assessment and plan (1) Left hip pain: Status: Acute Category: Medical Code(s): M25.552 - Pain in left hip Plan Left hip intra-articular injection
--- NOTE | 2025-03-18 16:13 | P.PCN_ITS ---
Procedure Date: 03/18/25 Time: 16:13 Anesthesiologist:: Tobias Partida MD Complications:: None Pre-procedure Diagnosis:: Left hip degenerative osteoarthritis Post-procedure Diagnosis:: Same Indications for Procedure:: This patient is a pleasant 74-year-old white female who has degenerative oste oarthritis of her left hip. She presents for left hip intra-articular injection today. Procedure Details:: Left hip intra-articular injection Informed consent was obtained risk and benefits of the procedure were explained to the patient. The patient was taken to the procedure room. She is placed supine on the procedure table the skin and subtendinous tissues were anesthetized using lidocaine. A 22-gauge spinal needle was inserted into the left hip joint. Needle placement was confirmed with dye. We then injected 10 mL lidocaine 1% and dexamethasone 10 mg into the left hip joint. Patient tolerated procedure well with no complications. Plan and Disposition:: Will follow-up with this patient in 1 month. Will assess efficacy of this injection. Given the fact that there is minimal joint space I did tell the patient to follow-up with her orthopedic surgeon to consider left hip joint repl acement.
[2025-03-18] MEDS: LIDOCAINE 1% 30ML PF VIAL 30 ML (16:15)
[2025-03-18] MEDS: BUPIVACAINE 0.25% 10ML INJ 25 MG IJ (16:16)
[2025-03-18] MEDS: DEXAMETHASONE 10MG/ML 1ML VIAL 10 MG (16:16)
[2025-03-18 16:32] VITALS: BP 150/73; PULSE 82; RESP 18; O2SAT 96
[2025-03-18 16:35] VITALS: BP 150/73; PULSE 82; RESP 18; O2SAT 96
[2025-03-18] MEDS: IOPAMIDOL-200 (41%);10ML VIAL 10 ML IV (16:51)
== END 2025-03-18 16:20 | disposition home or self-care (01) ==
PROVIDERS: PCP Family Medicine; Visit Provider Anesthesiology
DX: M16.12 Unilateral primary osteoarthritis, left hip (principal); I10 Essential (primary) hypertension; E78.5 Hyperlipidemia, unspecified; Z88.0 Allergy status to penicillin; Z88.5 Allergy status to narcotic agent; Z96.653 Presence of artificial knee joint, bilateral; Z79.1 Long term (current) use of non-steroidal anti-inflammatories (NSAID); Z79.899 Other long term (current) drug therapy
CPT/HCPCS: 20610; 99221; J0665; J1100; J2003; Q9966